=== PATIENT | male | born 1945 | race Caucasian/White ===

== ENCOUNTER 2016-08-03 23:22 | Inpatient (IN) | payer OTHER, MEDICARE ==
[~2016-08-03] VITALS: Ht 172.7 cm; Wt 73.8 kg
[~2016-08-03 23:22] MED LIST: 1-ME1LIQ PO; ADVAI250I PO; ALLO300 PO; CYCL5TAB PO; DILTCD120 PO; DUONI NEB; IPRAAER INH; LORTA5 PO; SPIRCAP INH; TAB-TAB PO; ZYVO600T PO
[2016-08-03 23:23] VITALS: BP 144/74; PULSE 116; RESP 20; TEMP 97.7; O2SAT 90
[2016-08-04] VITALS (7 sets, daily range): BP systolic 119–152; BP diastolic 64–82; PULSE 75–135; RESP 12–25; TEMP 98.5; O2SAT 93–96
[2016-08-04] MEDS ORDERED: SODIUM CHLOR 0.9% 1000 ML INJ 1,000 ML IV SCH (00:35)
[2016-08-04] MEDS ORDERED: SODIUM CHLORIDE 0.9% FLUSH 5 ML FLUSH IVF PRN ×2 (00:45)
[2016-08-04] MEDS ORDERED: MORPHINE SULFATE 4 MG/ML INJ IV PUSH ONE (00:45)
[2016-08-04] MEDS ORDERED: ONDANSETRON HCL 4 MG/2 ML VIAL IVP ONE (00:45)
[2016-08-04] MEDS ORDERED: RESP: ALBUTEROL 2.5 MG/IPRATROPIUM 0.5 MG NEB (SCH) INH ONE (00:45)
--- NOTE | 2016-08-04 00:48 | PD ---
HPI Chief Complaint: Abdominal Pain Time Seen by Provider: 00:33 Travel History International Travel<30 days: No Contact w/Intl Traveler<30days: No Traveled to known affect area: No History of Present Illness HPI The patient is a 71 year old male who presents to the [facility] emergency department with a history of abdominal pain that began 2 days ago although worse and today prior to arrival. He reports that his pain is a 12 out of 10 in severity. He reports that he feels like he tore something in his abdomen when he was coughing. The patient has a history of a large ventral abdominal hernia. He did see Dr. Jon yeboah, his surgeon, last week regarding this. He reports that they plan on doing surgery again to repair the hernia, however his laboratory studies recently had showed that he is developing renal failure, therefore he was referred to a creative arts music therapist to further evaluate and clear him prior to surgery. The patient has a known history of COPD. He reports that he has a cough is been present intermittently for the last year. He reports that recently with weather changes during the wintertime and has become more productive of white sputum. He reports that he last used his nebulizer machine yesterday morning. The patient continues to smoke a half a pack to three quarters of a pack of cigarettes daily. The patient reports that over the last month he has had increasing lower extremity edema. He reports that he also has chronic difficulty starting his stream of urine. He reports that he is also on the process of being referred to a urologist for further evaluation. The patient reports the last time he saw a urologist was approximately 9 years ago when he was treated for prostate cancer with radiation therapy. The patient reports that his abdominal pain is generalized and worse with coughing. He denies any alleviating factors other than taking his usual hydrocodone for hip pain. The patient reports having one episode of nausea and vomiting today. He reports he's had constipation since Wednesday. The patient reports that he tried taking a stool softener without improvement. The patient denies any recent fevers, neck pain, chest pain, or neurologic symptoms. [facility] Past Medical History Narrative Medical The patient's past medical history is significant for COPD, continued tobacco use, ventral abdominal hernia, history of shingles, history of peptic ulcer disease, history of prostate cancer, history of arthritis, history of hypertension, history of renal insufficiency, hyperlipidemia Hx Anticoagulant Therapy: No Arthritis: Yes Asthma: No Heart Rhythm Problems: No Cancer: Yes (PROSTATE) Cardiovascular Problems: No High Cholesterol: Yes Chemotherapy: No Chest Pain: No Congestive Heart Failure: No COPD: Yes Cerebrovascular Accident: No Diabetes: No Diminished Hearing: No Endocrine: Yes Gastrointestinal Disorders: Yes (HX PERFORATED GASTRIC ULCER) Genitourinary: Yes Hepatitis: No Hiatal Hernia: Yes Hypertension: Yes Immune Disorder: No Musculoskeletal: Yes (PAIN NECK AREA) Neurologic: No Psychiatric: No Reproductive: No Respiratory: Yes (COPD) Integumentary: Yes (SHINGLES) Radiation Therapy: Yes Sleep Apnea: No Ulcer: Yes Tetanus Vaccination: > 5 Years Influenza Vaccination: Yes Past Surgical History Narrative Surgical The patient's past surgical history is significant for ventral abdominal hernia repair with wound dehiscence and attempted repair again after infection. The patient reports that he's had an appendectomy. Abdominal Surgery: Yes (2 HERNIA REPAIRS ABDOMEN, REPAIRED PERFORATED STOMACH ULCER, APPY) AICD: No Appendectomy: Yes Cardiac Surgery: No Ear Surgery: No Endocrine Surgery: No Eye Surgery: Yes (LETY CATARACT) Genitourinary Surgery: No Hysterectomy: No Joint Replacement: No Oral Surgery: No Pacemaker: No Thoracic Surgery: No Other Surgery: Yes Social History Alcohol Use: Yes (OCCASIONAL) Tobacco Use: Yes (1 PPD) Substance Use: No Allergies-Medications (Allergen,Severity, Reaction): Coded Allergies: *MDRO Multi-Drug Resistant Organism (Verified Adverse Reaction, Unknown, ) MRSA (abdominal wound) 2015 per 04/10/2015 H&P Reported Meds & Prescriptions Reported Meds & Active Scripts Active Reported Multi Vitamin (Multiple Vitamin) 1 Tab Tab 1 Tab PO DAILY Flomax (Tamsulosin HCl) 0.4 Mg Cap 0.4 Mg PO HS Norvasc (Amlodipine Besylate) 10 Mg Tab 10 Mg PO DAILY Protonix (Pantoprazole Sodium) 40 Mg Tab 40 Mg PO DAILY Flovent Hfa 12 GM Inh (Fluticasone Propionate) 220 Mcg/Act Inh 1 Puff INH BID Use daily at the same time. Advair Diskus Inh (Fluticasone-Salmeterol Inh) 250-50 Mcg/Blist Aer 1 Puff INH BID Rinse mouth after use. Trazodone (Trazodone HCl) 50 Mg Tab 50-100 Mg PO HS [employer] (Hydrocodone-Acetaminophen) 10-325 Mg Tab 1-2 Tab PO Q4H PRN Lasix (Furosemide) 20 Mg Tab 20 Mg PO DAILY Potassium Chloride ER (Potassium Chloride) 20 Meq Tab 20 Meq PO DAILY Duoneb (Ipratropium-Albuterol Neb) 0.5-2.5 Mg/3 Ml Neb 1 Vial NEB QID PRN Combivent Respimat Inh (Ipratropium-Albuterol Inh) 20-100 [place]/Act Aero 1 Puff INH Q4HR PRN Review of Systems Except as stated in HPI: all other systems reviewed are Neg General / Constitutional: No: Fever Eyes: No: Visual changes HENT: No: Headaches Cardiovascular: Positive: Dyspnea on exertion, Edema, No: Chest Pain or Discomfort Respiratory: Positive: Cough, Shortness of Breath, Wheezing Gastrointestinal: Positive: Nausea, Vomiting, Abdominal Pain, Constipation, Changes in Bowel Habits, No: Diarrhea, Indigestion, Loss of Appetite Genitourinary: Positive: Hesitancy, No: Urgency, Frequency, Dysuria, Flank Pain Musculoskeletal: Positive: Arthralgias, No: Pain Skin: No Rash Neurologic: No: Weakness, Focal Abnormalities, Change in Mentation, Slurred Speech, Sensory Disturbance Psychiatric: No: Depression Endocrine: No: Polydipsia Hematologic/Lymphatic: No: Easy Bruising Physical Exam Narrative General: The patient is a well-developed well-nourished male, uncomfortable appearing on arrival he reported abdominal pain, O2 saturations on room air are 90%. Head and Neck exam: Head is normocephalic atraumatic. Eyes: Pupils are equal round and reactive to light. Nose: Midline septum with pink mucous membranes Mouth: Dentition unremarkable. Moist mucus membranes. Posterior oropharynx is not erythematous. No tonsillar hypertrophy. Uvula midline. Airway patent. Neck: No palpable lymphadenopathy. No nuchal rigidity. No thyromegaly. Cardiovascular: Regular rate and rhythm without murmurs, gallops, or rubs. No pulse deficit to the extremities and simultaneous auscultation and palpation of his radial artery. Lungs: Expiratory wheezes are audible throughout bilateral lung garcia, no rhonchi, no crackles. Abdomen: Soft, with distention related to a large ventral abdominal hernia that is palpated and palpates to be reducible on examination, generalized discomfort on palpation. Normal bowel sounds are audible. No guarding, rebound, or rigidity. Extremities: No clubbing or cyanosis. The patient has 1+ pitting edema bilateral lower extremities. 2+ pulses in all 4 extremities. Back: No spinous process tenderness to palpation. No costovertebral angle tenderness to palpation. Neurologic Exam: Grossly nonfocal. Skin Exam: No rash noted. Intact skin that is warm and dry. Data Data Last Documented VS Vital Signs Date Time Temp Pulse Resp B/P Pulse Ox O2 Delivery O2 Flow Rate FiO2 08/04/16 00:26 114 12 133/71 94 Room Air 08/03/16 23:23 97.7 Orders Complete Blood Count With Diff (08/04/16 00:35) Comprehensive Metabolic Panel (08/04/16 00:35) B-Type Natriuretic Peptide (08/04/16 00:35) Act Partial Throm Time (Ptt) (08/04/16 00:35) Prothrombin Time / Inr (Pt) (08/04/16 00:35) Magnesium (Mg) (08/04/16 00:35) Urinalysis - C+S If Indicated (08/04/16 00:35) Iv Access Insert/Monitor (08/04/16 00:35) Electrocardiogram (08/04/16 00:35) Ecg Monitoring (08/04/16 00:35) Oximetry (08/04/16 00:35) Oxygen Administration (08/04/16 00:35) Chest, Single Ap (08/04/16 00:35) Sodium Chloride 0.9% Flush (Ns Flush) (08/04/16 00:45) Albuterol-Ipratropium Neb (Duoneb Neb) (08/04/16 00:45) Lipase (08/04/16 00:35) Lactic Acid (08/04/16 00:35) Ct Abd/Pel W/O Iv Contrast (08/04/16 00:35) Morphine Inj (Morphine Inj) (08/04/16 00:45) Ondansetron Inj (Zofran Inj) (08/04/16 00:45) Sodium Chlor 0.9% 1000 Ml Inj (Ns 1000 M (08/04/16 00:35) Sodium Chloride 0.9% Flush (Ns Flush) (08/04/16 00:45) Urinary Catheter Insert/Apply (08/04/16 01:52) Cefepime Inj (Maxipime Inj) (08/04/16 02:15) Azithromycin Inj (Zithromax Inj) (08/04/16 02:15) Admit Order (Ed Use Only) (08/04/16 02:27) Labs Laboratory Tests Test 08/04/16 00:55 White Blood Count 19.0 TH/MM3 Red Blood Count 3.33 MIL/MM3 Hemoglobin 10.6 GM/DL Hematocrit 30.6 % Mean Corpuscular Volume 92.0 FL Mean Corpuscular Hemoglobin 31.7 PG Mean Corpuscular Hemoglobin 34.5 % Concent Red Cell Distribution Width 14.4 % Platelet Count 457 TH/MM3 Mean Platelet Volume 7.7 FL Neutrophils (%) (Auto) 89.6 % Lymphocytes (%) (Auto) 3.6 % Monocytes (%) (Auto) 6.4 % Eosinophils (%) (Auto) 0.1 % Basophils (%) (Auto) 0.3 % Neutrophils # (Auto) 17.0 TH/MM3 Lymphocytes # (Auto) 0.7 TH/MM3 Monocytes # (Auto) 1.2 TH/MM3 Eosinophils # (Auto) 0.0 TH/MM3 Basophils # (Auto) 0.1 TH/MM3 CBC Comment AUTO DIFF Differential Total Cells 100 Counted Neutrophils % (Manual) 86 % Band Neutrophils % 4 % Lymphocytes % 5 % Monocytes % 5 % Neutrophils # (Manual) 17.1 TH/MM3 Differential Comment FINAL DIFF MANUAL Platelet Estimate HIGH Platelet Morphology Comment NORMAL Helmet Cells OCC Acanthocytes OCC Prothrombin Time 11.4 SEC Prothromb Time International 1.0 RATIO Ratio Activated Partial 38.0 SEC Thromboplast Time Sodium Level 120 MEQ/L Potassium Level 4.5 MEQ/L Chloride Level 82 MEQ/L Carbon Dioxide Level 23.4 MEQ/L Anion Gap 15 MEQ/L Blood Urea Nitrogen 67 MG/DL Creatinine 7.74 MG/DL Estimat Glomerular Filtration 7 ML/MIN Rate Random Glucose 129 MG/DL Lactic Acid Level 0.8 mmol/L Calcium Level 9.9 MG/DL Magnesium Level 1.8 MG/DL Total Bilirubin 0.7 MG/DL Aspartate Amino Transf 37 U/L (AST/SGOT) Alanine Aminotransferase 26 U/L (ALT/SGPT) Alkaline Phosphatase 124 U/L B-Type Natriuretic Peptide 533 PG/ML Total Protein 9.4 GM/DL Albumin 4.1 GM/DL Lipase 49 U/L MDM Medical Decision Making Medical Screen Exam Complete: Yes Emergency Medical Condition: Yes Medical Record Reviewed: Yes Interpretation(s) Laboratory Tests Test 08/04/16 00:55 White Blood Count 19.0 TH/MM3 Red Blood Count 3.33 MIL/MM3 Hemoglobin 10.6 GM/DL Hematocrit 30.6 % Mean Corpuscular Volume 92.0 FL Mean Corpuscular Hemoglobin 31.7 PG Mean Corpuscular Hemoglobin 34.5 % Concent Red Cell Distribution Width 14.4 % Platelet Count 457 TH/MM3 Mean Platelet Volume 7.7 FL Neutrophils (%) (Auto) 89.6 % Lymphocytes (%) (Auto) 3.6 % Monocytes (%) (Auto) 6.4 % Eosinophils (%) (Auto) 0.1 % Basophils (%) (Auto) 0.3 % Neutrophils # (Auto) 17.0 TH/MM3 Lymphocytes # (Auto) 0.7 TH/MM3 Monocytes # (Auto) 1.2 TH/MM3 Eosinophils # (Auto) 0.0 TH/MM3 Basophils # (Auto) 0.1 TH/MM3 CBC Comment AUTO DIFF Differential Total Cells 100 Counted Neutrophils % (Manual) 86 % Band Neutrophils % 4 % Lymphocytes % 5 % Monocytes % 5 % Neutrophils # (Manual) 17.1 TH/MM3 Differential Comment FINAL DIFF MANUAL Platelet Estimate HIGH Platelet Morphology Comment NORMAL Helmet Cells OCC Acanthocytes OCC Prothrombin Time 11.4 SEC Prothromb Time International 1.0 RATIO Ratio Activated Partial 38.0 SEC Thromboplast Time Sodium Level 120 MEQ/L Potassium Level 4.5 MEQ/L Chloride Level 82 MEQ/L Carbon Dioxide Level 23.4 MEQ/L Anion Gap 15 MEQ/L Blood Urea Nitrogen 67 MG/DL Creatinine 7.74 MG/DL Estimat Glomerular Filtration 7 ML/MIN Rate Random Glucose 129 MG/DL Lactic Acid Level 0.8 mmol/L Calcium Level 9.9 MG/DL Magnesium Level 1.8 MG/DL Total Bilirubin 0.7 MG/DL Aspartate Amino Transf 37 U/L (AST/SGOT) Alanine Aminotransferase 26 U/L (ALT/SGPT) Alkaline Phosphatase 124 U/L B-Type Natriuretic Peptide 533 PG/ML Total Protein 9.4 GM/DL Albumin 4.1 GM/DL Lipase 49 U/L Last Impressions Chest X-Ray 2/14/17 0035 Signed Impressions: Service Date/Time: Thursday, August 04, 2016 00:47 - CONCLUSION: 1. Bibasilar edema versus pneumonia Gareth Escalante MD Abdomen/Pelvis CT 08/04/1634 Signed Impressions: Service Date/Time: Thursday, August 04, 2016 01:07 - CONCLUSION: 1. Probable generalized small bowel ileus. 2. Marked bladder distention with bilateral hydronephrosis to mild degree which may be on the basis of bladder outlet traction. 3. Bibasilar edema versus pneumonia with bilateral effusions Gareth Escalante MD Differential Diagnosis Bowel obstruction, versus constipation, versus enlargement of hernia with associated pain related to coughing, versus pneumonia, versus COPD exacerbation Narrative Course During the course of the patients emergency department visit, the patients history, examination, and differential diagnosis were reviewed with the patient. The patient had IV access obtained and blood work sent for analysis. The patient was placed on a operations project manager with oximetry and blood pressure monitoring. A chest x-ray was ordered. CT scan of the abdomen and pelvis was ordered. The patient had an EKG. The patient's EKG shows what appears to be a sinus tachycardia heart rate of 107, right bundle branch block with T-wave inversions in V1, V2, V3, no acute ST segment elevation. The patient was provided morphine for pain, Zofran for nausea, DuoNeb's 1. The patient was started on antibiotic for respiratory coverage to include cefepime and Zithromax. The patients laboratory studies were reviewed and remarkable for a white count of 19, hemoglobin 10.6, platelets 457 with 89.6 neutrophils, lymphocytes 3.6, CMP was remarkable for sodium of 120, chloride 82, BUN 67, creatinine 7.74, glucose 129, alkaline phosphatase 124, BNP is 533, total protein 9.3, lipase 49. PT 11.4, PTT 38, urinalysis shows small occult blood moderate leukocyte esterase 15 RBCs 10 wbc's rare bacteria, culture indicated. Radiology studies were reviewed and remarkable for a chest x-ray that shows right basilar edema. CT scan of the abdomen and pelvis showed probable generalized small bowel ileus, marked bladder distention with bilateral hydronephrosis to mild degree which may be on the basis of the bladder outlet traction. A Hammond catheter was placed to gravity with a coud catheter. The patient immediately had 2 L of urine out. The patients results were discussed with the patient, including the plan of care. I explained that further testing and/ or monitoring is indicated based on the patients history, examination, and/ or laboratory findings. Therefore, I recommended admission for additional evaluation. The patient expressed understanding and was agreeable with this plan. The patient was admitted to the hospital in guarded condition and sent to a bed under the care of the [facility]. Sepsis Criteria SIRS Criteria (2 or more): Heart rate over 90, WBC > 38967, < 4000 or > 10% bands Physician Communication Physician Communication The patient's case is discussed with Dr. Hurtado who did agree to admit the patient for further evaluation and treatment at this time. Diagnosis Primary Impression: Renal failure Additional Impressions: Bladder outflow obstruction COPD (chronic obstructive pulmonary disease) Qualified Code: J41.8 - Mixed simple and mucopurulent chronic bronchitis Admitting Information Admitting Physician Requests: Jessica Sosa MD Aug 04, 2016 00:48
[2016-08-04 01:22] LABS: PROTHROMBIN TIME - PATIENT 11.4 SEC (9.8-11.6)
[2016-08-04 01:28] LABS: BASOPHIL # 0.1 TH/MM3 (0-0.2); BASOPHIL % 0.3 % (0.0-2.0); EOSINOPHIL % 0.1 % (0.0-4.0); HEMATOCRIT 30.6 % (39.0-51.0); LYMPH % 3.6 % (9.0-44.0); LYMPHOCYTE # 0.7 TH/MM3 (1.0-4.8); MEAN CORPUSCULAR HEMOGLOBIN 31.7 PG (27.0-34.0); MEAN CORPUSCULAR HGB CONC 34.5 % (32.0-36.0); MONO % 6.4 % (0.0-8.0); NEUT % 89.6 % (16.0-70.0); PLATELET COUNT 457 TH/MM3 (150-450); RED BLOOD COUNT 3.33 MIL/MM3 (4.50-5.90); RED CELL DISTRIBUTION WIDTH 14.4 % (11.6-17.2)
[2016-08-04 01:30] LABS: HEMO FLAGS AUTO DIFF
--- NOTE | 2016-08-04 01:32 | RADRPT ---
EXAM DATE/TIME: 08/04/2016 00:47 [facility] COMPARISON: CHEST SINGLE AP, November 21, 2014, 12:05. INDICATIONS : Shortness of breath and cough. MEDICAL HISTORY : Chronic obstructive pulmonary disease. Hiatal hernia. Carcinoma, prostatic. Hypertension. SURGICAL HISTORY : Hernia repair. ENCOUNTER: Initial ACUITY: 1 month PAIN SCORE: 0/10 LOCATION: Bilateral chest FINDINGS: The cardiac silhouette is enlarged in transverse diameter. There is patchy alveolar disease bilateral ly compatible with edema or pneumonia. No pleural effusions are identified. There is prominence of th e aortic knob is with calcification characteristic of atherosclerotic vascular disease. CONCLUSION: 1. Bibasilar edema versus pneumonia Gareth Escalante MD on August 04, 2016 at 1:29 Board Certified Radiologist. This report was verified electronically.
[2016-08-04 01:37] LABS: ALT (GPT) 26 U/L (12-78); ANION GAP 15 MEQ/L (5-15); AST (GOT) 37 U/L (15-37); BICARBONATE 23.4 MEQ/L (21.0-32.0); BLOOD UREA NITROGEN 67 MG/DL (7-18); CHLORIDE 82 MEQ/L (98-107); GLOMERULAR FILTRATION RATE 7 ML/MIN (>89); MAGNESIUM 1.8 MG/DL (1.5-2.5); POTASSIUM 4.5 MEQ/L (3.5-5.1)
[2016-08-04 01:39] LABS: ALKALINE PHOSPHATASE 124 U/L (45-117); TOTAL BILIRUBIN ADULT 0.7 MG/DL (0.2-1.0)
[2016-08-04 01:41] LABS: SODIUM (NA) 120 MEQ/L (136-145)
--- NOTE | 2016-08-04 01:43 | RADRPT ---
EXAM DATE/TIME: 08/04/2016 01:07 [facility] COMPARISON: No previous studies available for comparison. INDICATIONS : Abdomen pain with distention past 3days. ORAL CONTRAST: No oral contrast ingested. RADIATION DOSE: 11.85 CTDIvol (mGy) MEDICAL HISTORY : Hypertension. Hernia, hiatal. Carcinoma, prostate.COPD SURGICAL HISTORY : Appendectomy. Umbilical hernia repair.Perforated gastric ulcer ENCOUNTER: Initial ACUITY: 3 days PAIN SCALE: 10/10 LOCATION: abdomen TECHNIQUE: Volumetric scanning of the abdomen and pelvis was performed. Using automated exposure control and ad justment of the mA and/or kV according to patient size, radiation dose was kept as low as reasonably achievable to obtain optimal diagnostic quality images. FINDINGS: There is bibasilar edema versus pneumonia with small bilateral effusions. Coronary artery calcificati ons are present. The liver and spleen are normal in size and no focal defects are identified. A small hiatal hernia is present. The gallbladder and pancreas are unremarkable. No intrahepatic or extrahepatic ductal dilat ation is seen. The adrenal glands are unremarkable. There is mild bilateral hydronephrosis though the re is prominent bladder distention and this may be related on the basis of bladder outlet obstruction . There is marked diastases of the rectus muscles with small bowel dilatation which are fluid and air -filled characteristic of ileus. There is a large amount of fecal material throughout the colon consistent with constipation. CONCLUSION: 1. Probable generalized small bowel ileus. 2. Marked bladder distention with bilateral hydronephrosis to mild degree which may be on the basis o f bladder outlet traction. 3. Bibasilar edema versus pneumonia with bilateral effusions Gareth Escalante MD on August 04, 2016 at 1:38 Board Certified Radiologist. This report was verified electronically.
[2016-08-04 01:49] LABS: BANDS 4 % (0-6); NEUTROPHIL # MANUAL DIFF 17.1 TH/MM3 (1.8-7.7); POLYS (SEG NEUTROPHILS) 86 % (16-70); WBC DIFF SAMPLE 100
[2016-08-04 01:50] LABS: PLATELET ESTIMATE SMEAR HIGH (NORMAL); PLATELET MORPHOLOGY NORMAL (NORMAL); SCAN/DIFF FINAL DIFF MANUAL
[2016-08-04 01:51] LABS: HELMET CELLS OCC (NORMAL)
[2016-08-04 01:52] LABS: ACANTHOCYTES OCC (NORMAL)
[2016-08-04] MEDS ORDERED: CEFEPIME INJ 2,000 MG in SODIUM CHLORIDE 0.9% INJ 100 ML IV ONE (02:15)
[2016-08-04] MEDS ORDERED: AZITHROMYCIN INJ 500 MG in SODIUM CHLOR 0.9% 250 ML INJ 250 ML IV ONE (02:15)
[2016-08-04 02:43] LABS: BACTERIA, URINE RARE /hpf; BLOOD, URINE SMALL (NEG); COMMENT (UR) CULTURE INDICATED; CULTURE IF INDICATED CULTURE INDICATED; GLUCOSE,URINE NEG (NEG); KETONE, URINE NEG (NEG); MUCUS URINE FEW /lpf (OCC); NITRITE,URINE NEG (NEG); URINE COLOR YELLOW (YELLW/STRAW)
[2016-08-04] MEDS ORDERED: SODIUM CHLORIDE 0.9% FLUSH 5 ML FLUSH FLUSH PRN (02:45)
[2016-08-04] MEDS ORDERED: NALOXONE HCL 0.4 MG/ML AMP IV PRN (02:45)
--- NOTE | 2016-08-04 04:36 | HHI.HP ---
[facility] Nic Brandt MD Admission Diagnosis Acute Renal Failure, Bladder outlet obstruction, hyponatremia, copd Diagnoses: Chief Complaint: Swelling, abdominal pain Travel History International Travel<30 Days: No Contact w/Intl Traveler <30 Da: No Traveled to Known Affected Are: No History of Present Illness History from patient, ER physician communication, and review of medical records. Patient reported that he came to the hospital because he has been having pain in his abdomen. He also reports of pain in his flank bilaterally. Reports of ventral hernia for which she was seen general surgeon for repair. Reports that the surgeon was not able to go ahead with the surgery because he was noted to have renal failure on his outpatient lab tests. He reports he has had some workup done for this renal failure for past 2 weeks as an outpatient. But he is not sure exactly what kind of workup. He denies any burning or pain on urination. However reports of difficulty urinating for the past few days. He stated that he is going to the bathroom every hour and was urinating a little bit each time. Denies blood in his urine at home. Denies any nausea or vomiting. Stated it only started in the hospital today. Denies diarrhea. Reports of constipation for the past 2 or 3 days. Denies fever. The emergency room, and patient's workup revealed acute on chronic renal failure. Imaging studies further revealed distended bladder with bilateral hydronephrosis suggestive of bladder outlet obstruction. Hammond catheter was placed in ER. There was some trouble dizziness and coud catheter was required. Patient has subsequent hematuria in the Hammond bag. Patient also reports of history of prostate cancer for which he had radiation therapy about 9 years ago. Post Hammond catheter placement, patient diuresed about 2 L. Review of Systems 12 point review of system was obtained and negative apart from what is mentioned in HPI Past Family Social History Past Medical History Hypertension Hyperlipidemia COPD Prostate CAstatus post radiation treatment 9 years ago Past Surgical History Reports surgeries for ventral hernia Appendectomy Surgery for perforated gastric ulcer Cataract surgery Reported Medications Patient's medications listed in EMRreviewed. Patient told me to check the medical records instead because he is tired and tired and wanted to sleep Allergies: Coded Allergies: *MDRO Multi-Drug Resistant Organism (Verified Adverse Reaction, Unknown, ) MRSA (abdominal wound) 2015 per 04/10/2015 H&P Family History Denies family history of any medical issues Social History Still smokes a pack a day. Denies any alcohol abuse or drug abuse. Social drinker. Physical Exam Vital Signs Vital Signs Date Time Temp Pulse Resp B/P Pulse Ox O2 Delivery O2 Flow Rate FiO2 08/04/16 00:26 114 12 133/71 94 Room Air 08/03/16 23:47 20 08/03/16 23:23 97.7 116 20 144/74 90 Room Air Physical Exam GENERAL: This is a well-nourished, well-developed patient, in no apparent distress. SKIN: No rashes, ecchymoses or lesions. Cool and dry. HEAD: Atraumatic. Normocephalic. No temporal or scalp tenderness. EYES: No scleral icterus. No injection or drainage. ENT: Nose without bleeding, purulent drainage or septal hematomaAirway patent. NECK: Trachea midline. No JVD. Supple, nontender, no meningeal signs. CARDIOVASCULAR: Regular rate and rhythm without murmurs, gallops, or rubs. RESPIRATORY: Clear to auscultation. Breath sounds equal bilaterally. No wheezes , rales, or rhonchi. GASTROINTESTINAL: Abdomen distended, ventral hernia present. Pain on palpation diffusely. No guarding. MUSCULOSKELETAL: Extremities without clubbing, cyanosis. No calf tenderness. Bilateral lower extremity pitting edema up to mid calf NEUROLOGICAL: Awake and alert. Motor and sensory grossly within normal limits Normal speech. Laboratory Laboratory Tests Test 08/04/16 08/04/16 00:55 02:30 White Blood Count 19.0 Red Blood Count 3.33 Hemoglobin 10.6 Hematocrit 30.6 Mean Corpuscular Volume 92.0 Mean Corpuscular Hemoglobin 31.7 Mean Corpuscular Hemoglobin 34.5 Concent Red Cell Distribution Width 14.4 Platelet Count 457 Mean Platelet Volume 7.7 Neutrophils (%) (Auto) 89.6 Lymphocytes (%) (Auto) 3.6 Monocytes (%) (Auto) 6.4 Eosinophils (%) (Auto) 0.1 Basophils (%) (Auto) 0.3 Neutrophils # (Auto) 17.0 Lymphocytes # (Auto) 0.7 Monocytes # (Auto) 1.2 Eosinophils # (Auto) 0.0 Basophils # (Auto) 0.1 CBC Comment AUTO DIFF Differential Total Cells 100 Counted Neutrophils % (Manual) 86 Band Neutrophils % 4 Lymphocytes % 5 Monocytes % 5 Neutrophils # (Manual) 17.1 Differential Comment FINAL DIFF MANUAL Platelet Estimate HIGH Platelet Morphology Comment NORMAL Helmet Cells OCC Acanthocytes OCC Prothrombin Time 11.4 Prothromb Time International 1.0 Ratio Activated Partial 38.0 Thromboplast Time Sodium Level 120 Potassium Level 4.5 Chloride Level 82 Carbon Dioxide Level 23.4 Anion Gap 15 Blood Urea Nitrogen 67 Creatinine 7.74 Estimat Glomerular Filtration 7 Rate Random Glucose 129 Lactic Acid Level 0.8 Calcium Level 9.9 Magnesium Level 1.8 Total Bilirubin 0.7 Aspartate Amino Transf 37 (AST/SGOT) Alanine Aminotransferase 26 (ALT/SGPT) Alkaline Phosphatase 124 B-Type Natriuretic Peptide 533 Total Protein 9.4 Albumin 4.1 Lipase 49 Urine Color YELLOW Urine Turbidity CLEAR Urine pH 5.0 Urine Specific [place] 1.010 Urine Protein NEG Urine Glucose (UA) NEG Urine Ketones NEG Urine Occult Blood SMALL Urine Nitrite NEG Urine Bilirubin NEG Urine Urobilinogen LESS THAN 2.0 Urine Leukocyte Esterase MOD Urine RBC 15 Urine WBC 10 Urine Bacteria RARE Urine Mucus FEW Microscopic Urinalysis Comment CULTURE INDICATED Date/Time Procedure Status Source Growth 08/04/16 02:30 Urine Culture Received Urine Clean Catch Pending Result Diagram: 08/04/165408/04/1654 Imaging Last 48 hours Impressions Chest X-Ray 08/04/1634 Signed Impressions: Service Date/Time: Thursday, August 04, 2016 00:47 - CONCLUSION: 1. Bibasilar edema versus pneumonia Gareth Escalante MD Abdomen/Pelvis CT 08/04/1634 Signed Impressions: Service Date/Time: Thursday, August 04, 2016 01:07 - CONCLUSION: 1. Probable generalized small bowel ileus. 2. Marked bladder distention with bilateral hydronephrosis to mild degree which may be on the basis of bladder outlet traction. 3. Bibasilar edema versus pneumonia with bilateral effusions Gareth Escalante MD Assessment and Plan Problem List: (1) Bladder outflow obstruction ICD Code: N32.0 Status: Acute (2) Renal failure ICD Code: N19 Status: Acute (3) Incisional hernia ICD Code: K43.2 Status: Acute Assessment and Plan Impression: Bilateral hydronephrosis Obstructive uropathywith bladder of the obstruction Pulmonary edemasecondary to renal dysfunction/fluid overload Bilateral pitting edemasecondary to renal dysfunction/fluid overload Acute renal failure Hematurialikely due to traumatic Hammond, compounded by bladder mucosa irritation from distention Leukocytosis with left shiftlikely due to infection UTI Hyponatremia History of hypertension History of prostate cancerstatus post radiation therapy History of COPD Chronic active tobacco abuse Plan: Patient had Hammond catheter placed in ER. Drained 2 L urine. Hematuria is clearing up by the time I see patient. We'll follow renal function. Suspects that renal function should improve by a.m. If not, we'll consider consulting nephrology. Urology consult. Check echocardiogram in a.m. Patient's peripheral edema and pulmonary edema likely due to renal failure resulting in fluid retention. IV fluids were DC'd. At present, we will not diurese him yet since he is not short of breath and he has significant hyponatremia of 120. We'll repeat BMP in a.m. Patient is asymptomatic in terms of hyponatremia/ neurologic symptoms. Watch for fluid overload. Patient may need diuresis once sodium improves. Patient received cefepime and azithromycin in ER for possible pneumonia/UTI. At present, would continue levofloxacin by mouth. We'll follow urine culture results. Nebulizers scheduled and when necessary. DVT prophylaxiswith heparin once no invasive procedures are planned. Would also obtain ultrasound of bilateral lower extremity to rule out DVT since patient has bilateral pitting edema with some calf asymmetry. GI prophylaxison pantoprazole. Discussed Condition With Patient, ER physician, ER nurse Physician Certification 2 Midnight Certification Type: Admission for Inpatient Services Order for Inpatient Services The services are ordered in accordance with Medicare regulations or non- Medicare payer requirements, as applicable. In the case of services not specified as inpatient-only, they are appropriately provided as inpatient services in accordance with the 2-midnight benchmark. Estimated LOS (days): 3 days is the estimated time the patient will need to remain in the hospital, assuming treatment plan goals are met and no additional complications. Post-Hospital Plan: Not yet determined Freddie Hurtado MD Aug 04, 2016 04:36
[2016-08-04] MEDS ORDERED: LEVOFLOXACIN 750 MG TAB PO ONE (05:45)
[2016-08-04] MEDS ORDERED: HEPARIN SODIUM - SQ 10,000 UNITS/ML VIAL SQ SCH (06:00)
[2016-08-04] MEDS ORDERED: RESP: ALBUTEROL 2.5 MG/IPRATROPIUM 0.5 MG NEB (PRN) NEB (06:00)
--- NOTE | 2016-08-04 08:42 | HHI.PR ---
Subjective Remarks in no acute distress. afebrile. complaining of some pain to the hips. Objective Vitals Vital Signs Date Time Temp Pulse Resp B/P Pulse Ox O2 Delivery O2 Flow Rate FiO2 08/04/16 08:31 96 Nasal Cannula 2 08/04/16 06:24 110 12 119/64 93 Room Air 08/04/16 00:26 114 12 133/71 94 Room Air 08/03/16 23:47 20 08/03/16 23:23 97.7 116 20 144/74 90 Room Air I/O 08/03/16 08/03/16 08/03/16 08/04/16 08/04/16 08/04/16 07:00 15:00 23:00 07:00 15:00 23:00 Output Total 3250 ml 1000 ml Balance -3250 ml -1000 ml Output Urine Total 3250 ml 1000 ml # Voids 2 0 # Bowel Movements 1 Result Diagram: 08/04/16 0055 08/04/16 0055 Imaging Last Impressions Chest X-Ray 08/04/1634 Signed Impressions: Service Date/Time: Thursday, August 04, 2016 00:47 - CONCLUSION: 1. Bibasilar edema versus pneumonia Gareth Escalante MD Abdomen/Pelvis CT 08/04/1634 Signed Impressions: Service Date/Time: Thursday, August 04, 2016 01:07 - CONCLUSION: 1. Probable generalized small bowel ileus. 2. Marked bladder distention with bilateral hydronephrosis to mild degree which may be on the basis of bladder outlet traction. 3. Bibasilar edema versus pneumonia with bilateral effusions Gareth Escalante MD Objective Remarks GENERAL: This is a well-nourished, well-developed patient, in no apparent distress. CARDIOVASCULAR: Regular rate and regular rhythm without murmurs, gallops, or rubs. RESPIRATORY: Clear to auscultation. Breath sounds equal bilaterally. No wheezes , rales, or rhonchi. GASTROINTESTINAL: Abdomen soft, non-tender, nondistended. Normal, active bowel sounds MUSCULOSKELETAL: Extremities without clubbing, cyanosis, or edema. NEURO: Alert & Oriented x4 to person, place, time, situation. Moves all ext x4 Procedures none Medications and IVs Current Medications IV Flush (NS Flush) 2 ml UNSCH PRN IVF FLUSH AFTER USING IV ACCESS; Start 08/04 at 00:45; Stop 08/04/16 at 02:40; Status DC Albuterol/ Ipratropium (Duoneb Neb) 1 ampule ONCE ONCE INH Last administered on 08/04/16 00:49; Start 08/04/16 at 00:45; Stop 08/04/16 at 00:46; Status DC Morphine Sulfate (Morphine Inj) 4 mg ONCE ONCE IV PUSH Last administered on 01:00; Start 08/04/16 at 00:45; Stop 08/04/16 at 00:46; Status DC Ondansetron HCl 4 mg 4 mg ONCE ONCE IVP Last administered on 08/04/16 00:59; Start 08/04/16 at 00:45; Stop 08/04/16 at 00:46; Status DC Sodium Chloride (NS 1000 ml Inj) 1,000 ml @ 125 mls/hr Q8H IV Last administered on 08/04/16 00:59; Start 08/04/16 at 00:35; Stop 08/04/16 at 02:33 ; Status DC IV Flush 2 ml 2 ml UNSCH PRN IVF FLUSH AFTER USING IV ACCESS; Start 08/04/16 at 00:45; Stop 08/04/16 at 02:40; Status DC Cefepime HCl 2000 mg/Sodium Chloride 100 ml @ 200 mls/hr ONCE ONCE IV Last administered on 08/04/16 03:21; Start 08/04/16 at 02:15; Stop 08/04/16 at 02:44 ; Status DC Azithromycin/ Sodium Chloride (Zithromax Inj/ NS 250 ml Inj) 250 ml @ 250 mls/ hr ONCE ONCE IV Last administered on 08/04/16 04:18; Start 08/04/16 at 02:15 ; Stop 08/04/16 at 03:14; Status DC IV Flush (NS Flush) 2 ml UNSCH PRN FLUSH FLUSH AFTER USING IV ACCESS; Start at 02:45 IV Flush (NS Flush) 2 ml BID FLUSH ; Start 08/04/16 at 09:00 Heparin Sodium (Porcine) (Heparin Inj) 5,000 units Q8H SQ ; Start 08/04/16 at 06 :00; Stop 08/04/16 at 06:00; Status DC Naloxone HCl (Narcan Inj) 0.4 mg UNSCH PRN IV SEE LABEL COMMENTS; Start at 02:45 Levofloxacin (Levaquin) 750 mg ONCE ONCE PO Last administered on 08/04/16t 05: 56; Start 08/04/16 at 05:45; Stop 08/04/16 at 05:46; Status DC Albuterol/ Ipratropium (Duoneb Neb) 1 ampule Q2HR NEB PRN NEB wheezing; Start 08/04/16 at 06:00 Albuterol/ Ipratropium (Duoneb Neb) 1 ampule Q6HR NEB NEB ; Start 08/04/16 at 10:00 A/P Assessment and Plan A/P Bilateral hydronephrosis with Obstructive uropathywith bladder of the obstruction with History of prostate cancerstatus post radiation therapy s/p menendez cath insertion- consulted urology Acute renal failure- s/p menendez cath placement- will monitor renal function closely Pulmonary edemasecondary to renal dysfunction/fluid overload- neb treatment - will monitor Bilateral pitting edemasecondary to renal dysfunction/fluid overload- check venous doppler- will monitor Hematurialikely due to traumatic Menendez, compounded by bladder mucosa irritation from distention urology consulted. Leukocytosis with left shiftlikely due to UTI- continue IV Rocephin- repeat CBC - monitor temps Hyponatremia; due to renal failure- will monitor History of hypertension; resume home meds History of COPD; resume home meds John Arana MD Aug 04, 2016 08:42
[2016-08-04] MEDS: SODIUM CHLORIDE 0.9% FLUSH 5 ML FLUSH FLUSH SCH ×2 (09:00→21:00)
[2016-08-04] MEDS ORDERED: TIOTROPIUM BROMIDE 18 MCG INH INH SCH (09:00)
[2016-08-04] MEDS ORDERED: ACETAMINOPHEN 325 MG TAB PO PRN (09:00)
--- NOTE | 2016-08-04 09:26 | RADRPT ---
EXAM DATE/TIME: 08/04/2016 08:31 [place] COMPARISON: No previous studies available for comparison. INDICATIONS : Bilateral leg swelling. MEDICAL HISTORY : Hypercholesterolemia. Hypertension. Chronic obstructive pulmonary disease. Renal insufficiency. Pros dave cancer. Radiation. SURGICAL HISTORY : Appendectomy. Hernia repair. ENCOUNTER: Initial ACUITY: 3 days PAIN SCORE: 3/10 LOCATION: Bilateral leg. TECHNIQUE: Venous ultrasound of the left and right leg was performed from the inguinal ligament to the proximal calf. Real-time, color Doppler and spectral tracing, compression and augmentation techniques were us ed. FINDINGS: RIGHT LEG: There is normal compressibility of the deep venous system from the inguinal region to the proximal ca lf. No echogenic clot is seen in the lumen of the common femoral, femoral, popliteal, and posterior tibial veins. There is a normal response of the venous system to proximal and distal augmentation an d respiration. There is a moderate-sized Phillips's cyst measuring 2.6 x 1.6 x 3.2 cm. LEFT LEG: There is normal compressibility of the deep venous system from the inguinal region to the proximal ca lf. No echogenic clot is seen in the lumen of the common femoral, femoral, popliteal, and posterior tibial veins. There is a normal response of the venous system to proximal and distal augmentation an d respiration. There is a large-sized Phillips's cyst measuring 7.3 x 4.4 x 2.8 cm. CONCLUSION: 1. No evidence of deep venous thrombosis. 2. Bilateral Phillips's cysts left greater than right. Ian Horton MD on August 04, 2016 at 9:23 Board Certified Radiologist. This report was verified electronically.
[2016-08-04] MEDS ORDERED: BUDESONIDE-FORMOTEROL 160/4.5 MCG INHALER INH SCH (09:30)
[2016-08-04] MEDS ORDERED: DILTIAZEM-CD 120 MG CAP ER PO SCH (09:30)
[2016-08-04] MEDS ORDERED: PILL SPLITTER OTHER PRN (09:30)
[2016-08-04] MEDS ORDERED: IPRASOL NEB (09:58)
[2016-08-04] MEDS ORDERED: TRAZ50TA12 PO (09:58)
[2016-08-04] MEDS ORDERED: IPRAAER INH (09:58)
[2016-08-04] MEDS ORDERED: POTA-163 PO (09:58)
[2016-08-04] MEDS ORDERED: FLUTI220I INH (09:58)
[2016-08-04] MEDS ORDERED: MULT-135 PO (09:58)
[2016-08-04] MEDS ORDERED: TAMS5CAP PO (09:58)
[2016-08-04] MEDS ORDERED: PROT40TA PO (09:58)
[2016-08-04] MEDS ORDERED: ADVA250A INH (09:58)
[2016-08-04] MEDS ORDERED: HYDR-3366 PO (09:58)
[2016-08-04] MEDS ORDERED: AMLO10 PO ×2 (09:58)
[2016-08-04] MEDS ORDERED: FURO1TAB62 PO (09:58)
[2016-08-04] MEDS: RESP: ALBUTEROL 2.5 MG/IPRATROPIUM 0.5 MG NEB (SCH) NEB ×2 (10:00→15:29)
--- NOTE | 2016-08-04 10:36 | EKG ---
Date Performed: 08/04/2016 Time Performed: 01:24:18 PTAGE: 71 years EKG: Sinus tachycardia Right bundle branch block ABNORMAL ECG Compared to prior tracing no signi ficant change PREVIOUS TRACING : 11/20/2014 20.33 DOCTOR: Jose Muhammad Interpretating Date/Time 08/04/2016 10:35:46
[2016-08-04 10:58] LABS: AUTOMATED NEUTROPHIL # 13.1 TH/MM3 (1.8-7.7); BASOPHIL % 0.2 % (0.0-2.0); EOSINOPHIL % 0.1 % (0.0-4.0); HEMATOCRIT 25.6 % (39.0-51.0); LYMPH % 3.9 % (9.0-44.0); LYMPHOCYTE # 0.6 TH/MM3 (1.0-4.8); MEAN CORPUSCULAR HEMOGLOBIN 32.3 PG (27.0-34.0); MEAN CORPUSCULAR HGB CONC 35.1 % (32.0-36.0); MONO % 7.7 % (0.0-8.0); NEUT % 88.1 % (16.0-70.0); PLATELET COUNT 382 TH/MM3 (150-450); RED BLOOD COUNT 2.78 MIL/MM3 (4.50-5.90); RED CELL DISTRIBUTION WIDTH 14.4 % (11.6-17.2); WHITE BLOOD COUNT 14.8 TH/MM3 (4.0-11.0)
[2016-08-04 10:59] LABS: HEMO FLAGS AUTO DIFF
[2016-08-04 11:23] LABS: POTASSIUM 3.8 MEQ/L (3.5-5.1)
[2016-08-04 11:48] LABS: SCAN/DIFF AUTO DIFF CONFIRMED
[2016-08-04] MEDS: ACETAMINOPHEN/HYDROcodone 325 MG/5 MG TAB PO PRN ×2 (16:10→23:10)
--- NOTE | 2016-08-04 16:24 | EC ---
Study Study Date:08/04/2016 STUDY CONCLUSIONS SUMMARY - Procedure narrative: Image quality was fair. The study was technically limited due to poor acoustic window availability. - Left ventricle: The cavity size was normal. Wall thickness was increased in a pattern of moderate LVH. There was concentric hypertrophy. Systolic function was probably normal. The estimated ejection fraction was in the range of 50% to 55%. The study is not technically sufficient to allow evaluation of LV diastolic function. - Mitral valve: Moderately calcified annulus. - Tricuspid valve: Mild regurgitation. If LV function is below 40, please consider prescribing an ACEI or ARB or document rationale for non-use. PROCEDURE DATA STUDY STATUS: Elective. Procedure: Transthoracic echocardiography. Image quality was fair. The study was technically limited due to poor acoustic window availability. Scanning was performed from the parasternal, apical, and subcostal acoustic windows. Study completion: The patient tolerated the procedure well. Transthoracic echocardiography. M-mode, complete 2D, complete spectral Doppler, and color Doppler. Patient status: Inpatient. CARDIAC ANATOMY LEFT VENTRICLE: The cavity size was normal. Wall thickness was increased in a pattern of moderate LVH. There was concentric hypertrophy. Systolic function was probably normal. The estimated ejection fraction was in the range of 50% to 55%. Images were inadequate for LV wall motion assessment. The study is not technically sufficient to allow evaluation of LV diastolic function. AORTIC VALVE: Mildly calcified leaflets. Doppler: There was no stenosis. No significant regurgitation. MITRAL VALVE: Moderately calcified annulus. Doppler: There was no evidence for stenosis. Trace to mild regurgitation. LEFT ATRIUM: The atrium was normal in size. PULMONIC VALVE: Not well visualized. Doppler: There was no evidence for stenosis. No significant regurgitation. TRICUSPID VALVE: The valve appears to be grossly normal. Doppler: There was no evidence for stenosis. Mild regurgitation. BASIC MEASUREMENTS ADULT NORMAL Left ventricle LV internal dimension, ED, chordal level, 48.2 mm 43-52 PLAX LV internal dimension, ES, chordal level, 38 mm 23-38 PLAX Fractional shortening, chordal level, PLAX *21 % >29 LV posterior wall thickness, ED 13.4 mm IVS/LVPW ratio, ED 0.91 <1.3 Ventricular septum Septal thickness, ED 12.2 mm Aortic valve Leaflet separation 15 mm 15-26 Right ventricle RV internal dimension, ED, PLAX 26 mm 19-38 BASIC MEASUREMENTS ADULT NORMAL Aortic valve Leaflet separation 15 mm 15-26 Aorta Root diameter, ED *39 mm 20-37 Left atrium Anterior-posterior dimension, ES 28 mm 19-40 LA/aortic root ratio 0.72 LEGEND: Mean values are shown as u=mean value. Asterisk (*) dolan values outside specified normal range. Prepared and signed by Grady Romero [id number]
--- NOTE | 2016-08-04 17:55 | PD.CONS ---
HPI Service Urology Consult Requested By Reason for Consult Urinary retention, hydro Primary Care Physician Nic Brandt MD Diagnosis: (1) Bladder outflow obstruction ICD Code: N32.0 (2) Renal failure ICD Code: N19 (3) Incisional hernia ICD Code: K43.2 History of Present Illness 71yo male with history of prostate cancer and EBRT now with bladder outlet obstruction secondary resulting in bilateral hydronephrosis and renal insufficiency. Patient reported to the ED due ot abdominal pain and was found to have a distended bladder and bilateral hydronephrosis. A menendez catheter was placed removing 2L of urine. Patient reports difficulty in voiding for some time now. He also has a large abdominal hernia. Denies hematuria, fevers. Review of Systems ROS Limitations: Clinical Condition Constitutional: DENIES: Fever Endocrine: DENIES: Polyuria Eyes: DENIES: Blurred vision Ears, nose, mouth, throat: DENIES: Hearing loss Respiratory: DENIES: Cough Cardiovascular: DENIES: Chest pain Gastrointestinal: COMPLAINS OF: Abdominal pain Genitourinary: COMPLAINS OF: Urinary incontinence, DENIES: Urgency, Hematuria Musculoskeletal: COMPLAINS OF: Back pain Integumentary: DENIES: Abnormal pigmentation Hematologic/lymphatic: DENIES: Bruising Immunologic/allergic: DENIES: Eczema Neurologic: DENIES: Headache Psychiatric: DENIES: Anxiety Except as stated in HPI: all other systems reviewed are Neg Past Family Social History Past Medical History Hypertension Hyperlipidemia COPD Prostate CAstatus post radiation treatment 9 years ago Past Surgical History Reports surgeries for ventral hernia Appendectomy Surgery for perforated gastric ulcer Cataract surgery Reported Medications Reported Meds & Active Scripts Active Reported Multi Vitamin (Multiple Vitamin) 1 Tab Tab 1 Tab PO DAILY Flomax (Tamsulosin HCl) 0.4 Mg Cap 0.4 Mg PO HS Norvasc (Amlodipine Besylate) 10 Mg Tab 10 Mg PO DAILY Protonix (Pantoprazole Sodium) 40 Mg Tab 40 Mg PO DAILY Flovent Hfa 12 GM Inh (Fluticasone Propionate) 220 Mcg/Act Inh 1 Puff INH BID Use daily at the same time. Advair Diskus Inh (Fluticasone-Salmeterol Inh) 250-50 Mcg/Blist Aer 1 Puff INH BID Rinse mouth after use. Trazodone (Trazodone HCl) 50 Mg Tab 50-100 Mg PO HS Mcgraws (Hydrocodone-Acetaminophen) 10-325 Mg Tab 1-2 Tab PO Q4H PRN Lasix (Furosemide) 20 Mg Tab 20 Mg PO DAILY Potassium Chloride ER (Potassium Chloride) 20 Meq Tab 20 Meq PO DAILY Duoneb (Ipratropium-Albuterol Neb) 0.5-2.5 Mg/3 Ml Neb 1 Vial NEB QID PRN Combivent Respimat Inh (Ipratropium-Albuterol Inh) 20-[address] Half-[address]/Act Aero 1 Puff INH Q4HR PRN Allergies: Coded Allergies: *MDRO Multi-Drug Resistant Organism (Verified Adverse Reaction, Unknown, ) MRSA (abdominal wound) 2015 per 04/10/2015 H&P Active Ordered Medications Current Medications Medications (Trade) Dose Ordered Sig/Tee Route Start Time Stop Time Status Last Admin (NS Flush) 2 ml UNSCH PRN FLUSH 08/04/16 02:45 (NS Flush) 2 ml BID FLUSH 08/04/16 09:00 Naloxone HCl 0.4 mg 0.4 mg UNSCH PRN IV 08/04/16 02:45 (Rocephin Inj/NS Inj) 100 ml @ 200 mls/hr Q24H IV 08/05/16 10:00 (Tylenol) 650 mg Q4H PRN PO 08/04/16 09:00 (Mcgraws 5-325 Mg) 1 tab Q6H PRN PO 08/04/16 09:00 08/04/16 16:10 (Pill Splitter) 1 ea UNSCH PRN OTHER 08/04/16 09:30 (Norvasc) 10 mg DAILY PO 08/05/16 09:00 (Protonix) 40 mg DAILY PO 08/05/16 09:00 (Flomax) 0.4 mg HS PO 08/04/16 21:00 (Symbicort 160-4.5 Inh) 2 puff BID INH 08/04/16 21:00 (Mag-Al Plus Susp Liq) 30 ml Q6H PRN PO 08/04/16 17:45 UNV (Dilaudid Pf Inj) 0.5 mg Q4H PRN IV PUSH 08/04/16 17:45 UNV Family History Denies family history of any medical issues Social History Still smokes a pack a day. Denies any alcohol abuse or drug abuse. Social drinker. Physical Exam Vital Signs Vital Signs Date Time Temp Pulse Resp B/P Pulse Ox O2 Delivery O2 Flow Rate FiO2 08/04/16 17:23 20 08/04/16 16:00 122 16 133/73 96 Nasal Cannula 2 08/04/16 12:40 112 18 130/74 95 Nasal Cannula 2 08/04/16 08:31 96 Nasal Cannula 2 08/04/16 06:24 110 12 119/64 93 Room Air 08/04/16 00:26 114 12 133/71 94 Room Air 08/03/16 23:47 20 08/03/16 23:23 97.7 116 20 144/74 90 Room Air Physical Exam GENERAL: This is a well-nourished, well-developed patient, in no apparent distress. SKIN: No rashes, ecchymoses or lesions. Cool and dry. HEAD: Atraumatic. Normocephalic. EYES: Extraocular motions intact. No scleral icterus. No injection or drainage. ENT: Nose without bleeding, purulent drainage. Airway patent. NECK: Trachea midline. No JVD or lymphadenopathy. CARDIOVASCULAR: Extremities well perfused, normal pulses RESPIRATORY: nonlabored, equal chest rise GASTROINTESTINAL: Abdomen soft, non-tender, nondistended. Large midline abdominal hernia with prior surgical scar noted GENITOURINARY: Menendez cathter in place, dark yellow urine noted, uncircumcised phallus MUSCULOSKELETAL: Extremities without clubbing, cyanosis, or edema. NEUROLOGICAL: Awake and alert. Motor and sensory grossly within normal limits. Normal speech. Laboratory Laboratory Tests Test 08/04/16 08/04/16 08/04/16 00:55 02:30 10:40 White Blood Count 19.0 14.8 Red Blood Count 3.33 2.78 Hemoglobin 10.6 9.0 Hematocrit 30.6 25.6 Mean Corpuscular Volume 92.0 92.0 Mean Corpuscular Hemoglobin 31.7 32.3 Mean Corpuscular Hemoglobin 34.5 35.1 Concent Red Cell Distribution Width 14.4 14.4 Platelet Count 457 382 Mean Platelet Volume 7.7 7.4 Neutrophils (%) (Auto) 89.6 88.1 Lymphocytes (%) (Auto) 3.6 3.9 Monocytes (%) (Auto) 6.4 7.7 Eosinophils (%) (Auto) 0.1 0.1 Basophils (%) (Auto) 0.3 0.2 Neutrophils # (Auto) 17.0 13.1 Lymphocytes # (Auto) 0.7 0.6 Monocytes # (Auto) 1.2 1.1 Eosinophils # (Auto) 0.0 0.0 Basophils # (Auto) 0.1 0.0 CBC Comment AUTO DIFF AUTO DIFF Differential Total Cells 100 Counted Neutrophils % (Manual) 86 Band Neutrophils % 4 Lymphocytes % 5 Monocytes % 5 Neutrophils # (Manual) 17.1 Differential Comment FINAL DIFF AUTO DIFF MANUAL CONFIRMED Platelet Estimate HIGH Platelet Morphology Comment NORMAL Helmet Cells OCC Acanthocytes OCC Prothrombin Time 11.4 Prothromb Time International 1.0 Ratio Activated Partial 38.0 Thromboplast Time Sodium Level 120 130 Potassium Level 4.5 3.8 Chloride Level 82 94 Carbon Dioxide Level 23.4 25.0 Anion Gap 15 11 Blood Urea Nitrogen 67 57 Creatinine 7.74 5.64 Estimat Glomerular Filtration 7 10 Rate Random Glucose 129 101 Lactic Acid Level 0.8 Calcium Level 9.9 9.0 Magnesium Level 1.8 Total Bilirubin 0.7 Aspartate Amino Transf 37 (AST/SGOT) Alanine Aminotransferase 26 (ALT/SGPT) Alkaline Phosphatase 124 B-Type Natriuretic Peptide 533 Total Protein 9.4 Albumin 4.1 Lipase 49 Urine Color YELLOW Urine Turbidity CLEAR Urine pH 5.0 Urine Specific Walker 1.010 Urine Protein NEG Urine Glucose (UA) NEG Urine Ketones NEG Urine Occult Blood SMALL Urine Nitrite NEG Urine Bilirubin NEG Urine Urobilinogen LESS THAN 2.0 Urine Leukocyte Esterase MOD Urine RBC 15 Urine WBC 10 Urine Bacteria RARE Urine Mucus FEW Microscopic Urinalysis Comment CULTURE INDICATED Date/Time Procedure Status Source Growth 08/04/16 02:30 Urine Culture Received Urine Clean Catch Pending Result Diagram: 08/04/16 1040 08/04/16 1040 Imaging Last 72 hours Impressions Chest X-Ray 08/04/1634 Signed Impressions: Service Date/Time: Thursday, August 04, 2016 00:47 - CONCLUSION: 1. Bibasilar edema versus pneumonia Gareth Escalante MD Abdomen/Pelvis CT 08/04/1634 Signed Impressions: Service Date/Time: Thursday, August 04, 2016 01:07 - CONCLUSION: 1. Probable generalized small bowel ileus. 2. Marked bladder distention with bilateral hydronephrosis to mild degree which may be on the basis of bladder outlet traction. 3. Bibasilar edema versus pneumonia with bilateral effusions Gareth Escalante MD Lower Extremity Ultrasound 08/04/16 0000 Signed Impressions: Service Date/Time: Thursday, August 04, 2016 08:31 - CONCLUSION: 1. No evidence of deep venous thrombosis. 2. Bilateral Phillips's cysts left greater than right. Ian Horton MD Assessment and Plan Problem List: (1) Abdominal wall abscess ICD Code: L02.211 Status: Acute (2) Bladder outflow obstruction ICD Code: N32.0 Status: Acute Assessment and Plan Maintain menendez catheter in place for at least two weeks to allow bladder decompression. Continue flomax therapy Patient to be discharged with menendez in place Patient may follow-up with Urology in clinic for voiding trial and further management of his urinary retention as well as follow-up for his history of Prostate Cancer Please call with questions King Edouard MD Aug 04, 2016 17:55
[2016-08-04] MEDS: ALUMINUM/MAGNESIUM/SIMETH 30 ML CUP PO PRN ×2 (18:06→23:10)
[2016-08-04] MEDS: HYDROmorphone HCL PF 1 MG/ML VIAL IV PUSH PRN (18:07)
[2016-08-04] MEDS: RESP: ALBUTEROL 2.5 MG/IPRATROPIUM 0.5 MG NEB (PRN) NEB (19:27)
[2016-08-04] MEDS ORDERED: CYCLOBENZAPRINE HCL 10 MG TAB PO SCH (21:00)
[2016-08-04] MEDS: BUDESONIDE-FORMOTEROL 160/4.5 MCG INHALER INH SCH (21:19)
[2016-08-04] MEDS: TAMSULOSIN HCL 0.4 MG CAP PO SCH (21:19)
[2016-08-04] MEDS: ONDANSETRON HCL 4 MG/2 ML VIAL IV PUSH PRN (23:10)
[2016-08-05] VITALS (11 sets, daily range): BP systolic 128–156; BP diastolic 73–89; PULSE 117–128; RESP 16–23; TEMP 98.1–98.2; O2SAT 91–96
[2016-08-05 04:19] LABS: AUTOMATED NEUTROPHIL # 13.6 TH/MM3 (1.8-7.7); BASOPHIL % 0.1 % (0.0-2.0); HEMATOCRIT 27.7 % (39.0-51.0); LYMPHOCYTE # 0.6 TH/MM3 (1.0-4.8); MEAN CELL VOLUME 92.4 FL (80.0-100.0); MEAN CORPUSCULAR HEMOGLOBIN 31.9 PG (27.0-34.0); MEAN CORPUSCULAR HGB CONC 34.6 % (32.0-36.0); MONO % 7.8 % (0.0-8.0); NEUT % 88.1 % (16.0-70.0); PLATELET COUNT 440 TH/MM3 (150-450); RED BLOOD COUNT 2.99 MIL/MM3 (4.50-5.90); RED CELL DISTRIBUTION WIDTH 14.8 % (11.6-17.2); WHITE BLOOD COUNT 15.5 TH/MM3 (4.0-11.0)
[2016-08-05 04:21] LABS: HEMO FLAGS AUTO DIFF
[2016-08-05 04:44] LABS: BICARBONATE 32.6 MEQ/L (21.0-32.0)
[2016-08-05 05:53] LABS: SCAN/DIFF AUTO DIFF CONFIRMED
[2016-08-05] MEDS: ONDANSETRON HCL 4 MG/2 ML VIAL IV PUSH PRN ×2 (06:07→12:53)
--- NOTE | 2016-08-05 07:43 | HHI.PR ---
Subjective Remarks f/u; acute kidney injury in no acute distress although noted that was tachycardic last night. complaining of nausea . good urine output. afebrile. menendez in place. d/w the RN. Objective Vitals Vital Signs Date Time Temp Pulse Resp B/P Pulse Ox O2 Delivery O2 Flow Rate FiO2 08/05/16 06:08 127 21 156/83 94 Nasal Cannula 2 08/05/16 04:54 117 22 128/80 95 Nasal Cannula 2 08/05/16 02:44 128 22 149/73 93 Nasal Cannula 2 08/05/16 00:00 128 22 133/80 94 Nasal Cannula 2 08/04/16 22:16 75 25 143/75 94 Nasal Cannula 2 08/04/16 19:12 22 08/04/16 19:10 135 23 152/82 94 Nasal Cannula 2 08/04/16 18:42 20 08/04/16 18:07 98.5 126 22 145/78 96 Nasal Cannula 2 08/04/16 17:23 20 08/04/16 16:00 122 16 133/73 96 Nasal Cannula 2 08/04/16 12:40 112 18 130/74 95 Nasal Cannula 2 08/04/16 08:31 96 Nasal Cannula 2 I/O 08/04/16 08/04/16 08/04/16 08/05/16 08/05/16 08/05/16 07:00 15:00 23:00 07:00 15:00 23:00 Intake Total 100 ml 300 ml Output Total 3250 ml 2200 ml 2600 ml 1200 ml Balance -3250 ml -2100 ml -2300 ml -1200 ml Intake Oral 100 ml 300 ml Output Urine Total 3250 ml 2200 ml 2600 ml 1200 ml # Voids 2 0 0 # Bowel Movements 1 Result Diagram: 08/05/16 0350 08/05/16 0350 Imaging Last Impressions Chest X-Ray 08/04/1634 Signed Impressions: Service Date/Time: Thursday, August 04, 2016 00:47 - CONCLUSION: 1. Bibasilar edema versus pneumonia Gareth Escalante MD Abdomen/Pelvis CT 08/04/1634 Signed Impressions: Service Date/Time: Thursday, August 04, 2016 01:07 - CONCLUSION: 1. Probable generalized small bowel ileus. 2. Marked bladder distention with bilateral hydronephrosis to mild degree which may be on the basis of bladder outlet traction. 3. Bibasilar edema versus pneumonia with bilateral effusions Gareth Escalante MD Lower Extremity Ultrasound 08/04/16 0000 Signed Impressions: Service Date/Time: Thursday, August 04, 2016 08:31 - CONCLUSION: 1. No evidence of deep venous thrombosis. 2. Bilateral Phillips's cysts left greater than right. Ian Horton MD Objective Remarks GENERAL: This is a well-nourished, well-developed patient, in no apparent distress. CARDIOVASCULAR: Regular rate and regular rhythm without murmurs, gallops, or rubs. RESPIRATORY: Clear to auscultation. Breath sounds equal bilaterally. No wheezes , rales, or rhonchi. GASTROINTESTINAL: Abdomen soft, non-tender, nondistended. Normal, active bowel sounds MUSCULOSKELETAL: Extremities without clubbing, cyanosis, or edema. NEURO: Alert & Oriented x4 to person, place, time, situation. Moves all ext x4 Procedures none Medications and IVs Current Medications IV Flush (NS Flush) 2 ml UNSCH PRN IVF FLUSH AFTER USING IV ACCESS; Start 08/04 at 00:45; Stop 08/04/16 at 02:40; Status DC Albuterol/ Ipratropium (Duoneb Neb) 1 ampule ONCE ONCE INH Last administered on 08/04/16 00:49; Start 08/04/16 at 00:45; Stop 08/04/16 at 00:46; Status DC Morphine Sulfate (Morphine Inj) 4 mg ONCE ONCE IV PUSH Last administered on 01:00; Start 08/04/16 at 00:45; Stop 08/04/16 at 00:46; Status DC Ondansetron HCl 4 mg 4 mg ONCE ONCE IVP Last administered on 08/04/16 00:59; Start 08/04/16 at 00:45; Stop 08/04/16 at 00:46; Status DC Sodium Chloride (NS 1000 ml Inj) 1,000 ml @ 125 mls/hr Q8H IV Last administered on 08/04/16 00:59; Start 08/04/16 at 00:35; Stop 08/04/16 at 02:33 ; Status DC IV Flush 2 ml 2 ml UNSCH PRN IVF FLUSH AFTER USING IV ACCESS; Start 08/04/16 at 00:45; Stop 08/04/16 at 02:40; Status DC Cefepime HCl 2000 mg/Sodium Chloride 100 ml @ 200 mls/hr ONCE ONCE IV Last administered on 08/04/16 03:21; Start 08/04/16 at 02:15; Stop 08/04/16 at 02:44 ; Status DC Azithromycin/ Sodium Chloride (Zithromax Inj/ NS 250 ml Inj) 250 ml @ 250 mls/ hr ONCE ONCE IV Last administered on 08/04/16 04:18; Start 08/04/16 at 02:15 ; Stop 08/04/16 at 03:14; Status DC IV Flush (NS Flush) 2 ml UNSCH PRN FLUSH FLUSH AFTER USING IV ACCESS; Start at 02:45 IV Flush (NS Flush) 2 ml BID FLUSH ; Start 08/04/16 at 09:00 Heparin Sodium (Porcine) (Heparin Inj) 5,000 units Q8H SQ ; Start 08/04/16 at 06 :00; Stop 08/04/16 at 06:00; Status DC Naloxone HCl (Narcan Inj) 0.4 mg UNSCH PRN IV SEE LABEL COMMENTS; Start at 02:45 Levofloxacin (Levaquin) 750 mg ONCE ONCE PO Last administered on 08/04/16 05: 56; Start 08/04/16 at 05:45; Stop 08/04/16 at 05:46; Status DC Albuterol/ Ipratropium (Duoneb Neb) 1 ampule Q2HR NEB PRN NEB wheezing; Start 08/04/16 at 06:00; Stop 08/04/16 at 17:00; Status DC Albuterol/ Ipratropium (Duoneb Neb) 1 ampule Q6HR NEB NEB ; Start 08/04/16 at 10:00; Stop 08/04/16 at 17:00; Status DC Tiotropium Filley (Spiriva Inh) 18 mcg DAILY INH ; Start 08/04/16 at 09:00; Stop 08/04/16 at 10:20; Status DC Budesonide/ Formoterol Fumarate (Symbicort 160-4.5 Inh) 2 puff BID INH ; Start 08/04/16 at 09:30; Stop 08/04/16 at 10:20; Status DC Cyclobenzaprine HCl (Flexeril) 5 mg HS PO ; Start 08/04/16 at 21:00; Stop at 21:00; Status DC Diltiazem HCl 120 mg 120 mg DAILY PO ; Start 08/04/16 at 09:30; Stop 08/04/16 at 10:20; Status DC Ceftriaxone Sodium/Sodium Chloride (Rocephin Inj/NS Inj) 100 ml @ 200 mls/hr Q24H IV ; Start 08/05/16 at 10:00 Acetaminophen (Tylenol) 650 mg Q4H PRN PO FEVER/ PAIN < 5; Start 08/04/16 at 09 :00 Acetaminophen/ Hydrocodone Bitart (Moxee 5-325 Mg) 1 tab Q6H PRN PO PAIN > 5 Last administered on 08/04/16 23:10; Start 08/04/16 at 09:00 Miscellaneous (Pill Splitter) 1 ea UNSCH PRN OTHER SEE LABEL COMMENTS; Start at 09:30 Amlodipine Besylate (Norvasc) 10 mg DAILY PO ; Start 08/05/16 at 09:00 Pantoprazole Sodium (Protonix) 40 mg DAILY PO ; Start 08/05/16 at 09:00 Tamsulosin HCl (Flomax) 0.4 mg HS PO Last administered on 08/04/16 21:19; Start 08/04/16 at 21:00 Budesonide/ Formoterol Fumarate (Symbicort 160-4.5 Inh) 2 puff BID INH Last administered on 08/04/16 21:19; Start 08/04/16 at 21:00 Albuterol/ Ipratropium (Duoneb Neb) 1 ampule Q6HR NEB PRN NEB SHORTNESS OF BREATH Last administered on 08/04/16 19:27; Start 08/04/16 at 17:15 Al Hydrox/Mg Hydrox/Simethicone (Mag-Al Plus Susp Liq) 30 ml Q6H PRN PO INDIGESTION Last administered on 08/04/16 23:10; Start 08/04/16 at 17:45 Hydromorphone HCl (Dilaudid Pf Inj) 0.5 mg Q4H PRN IV PUSH BREAKTHROUGH PAIN Last administered on 08/04/16 18:07; Start 08/04/16 at 17:45 Ondansetron HCl (Zofran Inj) 4 mg Q8HR PRN IV PUSH NAUSEA Last administered on 08/05/16 06:07; Start 08/04/16 at 18:15 A/P Assessment and Plan A/P Bilateral hydronephrosis with Obstructive uropathywith bladder of the obstruction with History of prostate cancerstatus post radiation therapy s/p menendez cath insertion- urology consult appreciated; will discharge with menendez cath in place- f/u as outpatient. Acute renal failure- s/p menendez cath placement- improving- will monitor renal function closely Pulmonary edemasecondary to renal dysfunction/fluid overload- neb treatment - will monitor repeat CXR today. tachycardia; repeat EKG today- echo with EF 55%- Bilateral pitting edemasecondary to renal dysfunction/fluid overload- venous doppler negative for DVT- will monitor Hematurialikely due to traumatic Menendez, compounded by bladder mucosa irritation from distention urology consulted as noted above. Leukocytosis with left shiftlikely due to UTI- continue IV Rocephin- repeat CBC - monitor temps Hyponatremia; due to renal failure-improved- will monitor hypokalemia; will replace History of hypertension; resumed home meds History of COPD; resumed home meds John Arana MD Aug 05, 2016 07:43
[2016-08-05] MEDS ORDERED: PROMETHAZINE INJ 25 MG/ML VIAL IM PRN (07:45)
[2016-08-05] MEDS ORDERED: POTASSIUM CHLORIDE 10 MEQ CONTROLLED RELEASE TAB PO ONE (07:45)
[2016-08-05] MEDS: HYDROmorphone HCL PF 1 MG/ML VIAL IV PUSH PRN ×2 (08:11→20:49)
--- NOTE | 2016-08-05 08:17 | RADRPT ---
EXAM DATE/TIME: 08/05/2016 07:49 [facility] COMPARISON: CHEST SINGLE AP, November 21, 2014, 12:05. CHEST SINGLE AP, November 20, 2014, 12:22. CHEST SINGLE AP, 2016, 0:47. INDICATIONS : Shortness of breath. MEDICAL HISTORY : Chronic obstructive pulmonary disease. Carcinoma, prostatic. SURGICAL HISTORY : None. ENCOUNTER: Initial ACUITY: 3 days PAIN SCORE: 0/10 LOCATION: Bilateral chest FINDINGS: The heart is normal in size. There are interstitial fibrotic changes throughout the lung bases more s ignificant on the left than the right. These areas are new compared to remote exams of 2014. This wou ld raise concern for an underlying pneumonia. The changes are stable compared to previous dated . The visualized bony structures demonstrate degenerative changes in the left shoulder but are othe rwise intact. CONCLUSION: 1. Interstitial fibrotic changes with bibasilar infiltrate concerning for pneumonia unchanged from pr evious dated 08/04/16. Reynold Olson MD on August 05, 2016 at 8:13 Board Certified Radiologist. This report was verified electronically.
[2016-08-05] MEDS: PANTOPRAZOLE SOD 40 MG DELAYED RELEASE TAB PO SCH ×2 (09:00→10:32)
[2016-08-05] MEDS: SODIUM CHLORIDE 0.9% FLUSH 5 ML FLUSH FLUSH SCH ×2 (09:00→20:50)
[2016-08-05] MEDS: BUDESONIDE-FORMOTEROL 160/4.5 MCG INHALER INH SCH ×2 (10:31→20:48)
[2016-08-05] MEDS: cefTRIAXone INJ 1,000 MG in SODIUM CHLORIDE 0.9% INJ 100 ML IV SCH (10:33)
[2016-08-05] MEDS: ACETAMINOPHEN/HYDROcodone 325 MG/5 MG TAB PO PRN (12:37)
[2016-08-05] MEDS: ALUMINUM/MAGNESIUM/SIMETH 30 ML CUP PO PRN (12:55)
--- NOTE | 2016-08-05 14:16 | HHI.PR ---
Addendum To [facility] Progress Not Reason for addendum: Additonal documentation (came back to see the patient- noted that still tachycardic and his pulse-ox dropped to 80's while he was talking. CXR reviewed- will check ABG and consult pulmonary- changed amlodipine to cardizem.will continue to monitor closely.) John Arana MD Aug 05, 2016 14:16
[2016-08-05 14:33] LABS: BLOOD GAS BASE EXCESS 10.6 mmol/L (-2-2); BLOOD GAS CARBOXYHEMOGLOBIN 2.5 % (0-4); BLOOD GAS HCO3 35 mmol/L (22-26); BLOOD GAS METHEMOGLOBIN 1.8 % (0-2); BLOOD GAS O2 HGB SATURATION 88 % (90-100); BLOOD GAS OXYGEN CONTENT 12.2 Vol % (12.0-20.0); BLOOD GAS PCO2 44 mmHg (38-42); BLOOD GAS PO2 57 mmHG (61-120); BLOOD GAS TOTAL HGB 9.8 G/DL (12.0-16.0); TEMP CORR TO 98.6
[2016-08-05 14:34] LABS: CRITICAL VALUE YES; DRAW SITE LT RADIAL; LITER FLOW 3 L/M; NUMBER OF ARTERIAL PUNCTURES 2; OXYGEN DEVICE NASAL CANNULA; STAT NO
[2016-08-05] MEDS: DILTIAZEM HCL 30 MG TAB PO SCH ×3 (14:49→20:48)
[2016-08-05] MEDS: AZITHROMYCIN INJ 500 MG in SODIUM CHLOR 0.9% 250 ML INJ 250 ML IV SCH (14:49)
[2016-08-05] MEDS: RESP: ALBUTEROL 2.5 MG/IPRATROPIUM 0.5 MG NEB (PRN) NEB (17:05)
[2016-08-05] MEDS: CALCIUM CARBONATE 500 MG CHEWABLE TAB CHEW PRN (18:06)
[2016-08-05] MEDS: RESP: ALBUTEROL 2.5 MG/IPRATROPIUM 0.5 MG NEB (SCH) NEB (20:03)
[2016-08-05] MEDS: TAMSULOSIN HCL 0.4 MG CAP PO SCH (20:49)
--- NOTE | 2016-08-05 22:44 | EKG ---
Date Performed: 08/05/2016 Time Performed: 07:53:27 PTAGE: 71 years EKG: SINUS TACHYCARDIA WITH FREQUENT SUPRAVENTRICULAR PREMATURE COMPLEXES RIGHT BUNDLE BRANCH BL OCK ST DEPRESSION, CONSIDER SUBENDOCARDIAL INJURY ABNORMAL ECG PREVIOUS TRACING : 08/04/2016 01.24 DOCTOR: Frank Aguayo Interpretating Date/Time 08/05/2016 22:43:33
[2016-08-05] MEDS ORDERED: METOPROLOL TARTRATE 5 MG/5 ML VIAL IV PUSH ONE (23:45)
--- NOTE | 2016-08-05 23:48 | MB ---
cc: SLAVA ARANA MD, JOHN DATE OF CONSULTATION: 08/05/2016 REASON FOR CONSULTATION: COPD and dyspnea. HISTORY OF PRESENT ILLNESS: This is a 71-year-old white male with a known prior history of COPD. He was brought to the emergency room with complaints of abdominal pain and flank pain. The patient has had a huge ventral hernia and this apparently has been a recurrent ventral hernia and he has been seen by a surgeon and has been advised to have a repair scheduled but over the past 2-3 weeks he has had some workup done but over the past 2-3 days he has noticed some increased chest congestion and shortness of breath, and apparently has been found to have renal insufficiency. The patient has had cough with expectoration, but denies any hemoptysis, fevers or chills. He has some reflux symptoms and nausea. His recent lab work demonstrated evidence of chronic kidney disease and he also had a CT of the abdomen which showed hydronephrosis and bladder outlet obstruction. PAST MEDICAL HISTORY: 1. Hypertension. 2. Hyperlipidemia. 3. History of emphysema. 4. History of prostate cancer, status post radiation therapy nine years ago. 5. Ventral hernia with mesh placement but this has recurred. 6. History of perforated gastric ulcer with exploration. 7. Appendectomy 8. Cataract implants. HABITS The patient smoked a pack per day and has done so for over 40 years. He continues to smoke. No significant alcohol use. FAMILY HISTORY Noncontributory ALLERGIES: No drug allergies. REVIEW OF SYSTEMS The patient has lost weight. He has abdominal and epigastric discomfort and a large ventral hernia with no evidence of strangulation. He has dizziness. Denies leg swelling, urinary frequency and also hematuria. No depression or anxiety, has joint pains, muscle aches. No seizures or headache. PHYSICAL EXAMINATION This is elderly man, averagely built, in no acute distress. Blood pressure 136/70, pulse is 112, respirations 20, temperature 97.5. HEENT: Head normocephalic. Pupils reactive and equal. Tongue is moist. Throat is injected. Nasal mucosae erythematous. Neck: Supple. No bruits, no thyroid enlargement, no lymphadenopathy. Chest: Equal movements with increased AP diameter with diffuse wheezes throughout both lung garcia. Prolonged expirations. There are few crackles at the right base. Heart: The heart sounds are regular S1-S2. No murmur. Abdomen is soft, and there is a large ventral hernia with multiple scars on it. The hernia is reducible. There is no organomegaly or tenderness. Bowel sounds are faint. Extremities: Reveal no definite lesions. IMPRESSION 1. COPD with acute exacerbation 2. Severe emphysema with chronic bronchitis 3. Large ventral hernia. 4. History of hypertension and hyperlipidemia. PLAN The patient will be maintained on O2 at 2 liters, nebulized albuterol and Atrovent solution nebulizer q.i.d. and continue with antibiotic coverage including Rocephin 1 gram IV daily and Zithromax 500 mg IV daily. Also placed on Symbicort 160 x 4.5, two puffs twice a day. The patient will have a pulmonary function study in the a.m. and I will follow the patient and discuss the case with you Dr. Arana. The patient will be placed on Solu-Medrol 40 milligrams IV every 8 hours. Thank you for the consultation. MD LISA Alvarado/[email or web address] /10:48 PM /11:29 PM
[2016-08-06] VITALS (12 sets, daily range): BP systolic 137–162; BP diastolic 84–102; PULSE 82–125; RESP 16–18; TEMP 97.6–98.6; O2SAT 90–95
[2016-08-06] MEDS: ACETAMINOPHEN/HYDROcodone 325 MG/5 MG TAB PO PRN ×2 (00:16→22:40)
[2016-08-06 06:17] LABS: AUTOMATED NEUTROPHIL # 16.9 TH/MM3 (1.8-7.7); BASOPHIL % 0.1 % (0.0-2.0); EOSINOPHIL % 0.1 % (0.0-4.0); HEMATOCRIT 26.7 % (39.0-51.0); LYMPH % 5.6 % (9.0-44.0); LYMPHOCYTE # 1.1 TH/MM3 (1.0-4.8); MEAN CELL VOLUME 92.9 FL (80.0-100.0); MEAN CORPUSCULAR HEMOGLOBIN 31.8 PG (27.0-34.0); MEAN CORPUSCULAR HGB CONC 34.2 % (32.0-36.0); MONO % 9.7 % (0.0-8.0); NEUT % 84.5 % (16.0-70.0); PLATELET COUNT 386 TH/MM3 (150-450); RED BLOOD COUNT 2.88 MIL/MM3 (4.50-5.90)
[2016-08-06 06:23] LABS: HEMO FLAGS AUTO DIFF
[2016-08-06 06:43] LABS: BICARBONATE 36.9 MEQ/L (21.0-32.0); POTASSIUM 3.3 MEQ/L (3.5-5.1)
[2016-08-06] MEDS: RESP: ALBUTEROL 2.5 MG/IPRATROPIUM 0.5 MG NEB (SCH) NEB ×4 (08:00→21:45)
[2016-08-06 08:10] LABS: BANDS 8 % (0-6); METAMYELOCYTES 1 % (0-1); MYELOCYTES 1 % (0-0); NEUTROPHIL # MANUAL DIFF 18.4 TH/MM3 (1.8-7.7); PLASMA CELLS 1 % (0-0); PLATELET ESTIMATE SMEAR NORMAL (NORMAL); PLATELET MORPHOLOGY NORMAL (NORMAL); POLYS (SEG NEUTROPHILS) 82 % (16-70); SCAN/DIFF FINAL DIFF MANUAL; WBC DIFF SAMPLE 100
[2016-08-06] MEDS: BUDESONIDE-FORMOTEROL 160/4.5 MCG INHALER INH SCH ×2 (09:00→22:41)
[2016-08-06] MEDS: SODIUM CHLORIDE 0.9% FLUSH 5 ML FLUSH FLUSH SCH ×2 (09:00→22:41)
[2016-08-06] MEDS: cefTRIAXone INJ 1,000 MG in SODIUM CHLORIDE 0.9% INJ 100 ML IV SCH (09:03)
[2016-08-06] MEDS: PANTOPRAZOLE SOD 40 MG DELAYED RELEASE TAB PO SCH (09:03)
[2016-08-06] MEDS: DILTIAZEM HCL 30 MG TAB PO SCH ×4 (09:03→22:40)
--- NOTE | 2016-08-06 09:58 | HHI.PR ---
Subjective Remarks slightly more comfortable today. remains afebrile. denies pain. menendez cath in place. Objective Vitals Vital Signs Date Time Temp Pulse Resp B/P Pulse Ox O2 Delivery O2 Flow Rate FiO2 08/06/16 08:15 Nasal Cannula 3.00 08/06/16 03:25 98.6 112 16 146/93 93 08/06/16 00:15 154/90 08/06/16 00:14 98.2 125 16 162/102 90 08/05/16 20:04 94 Nasal Cannula 3.00 08/05/16 20:00 98.1 120 16 135/89 91 08/05/16 17:05 94 Nasal Cannula 4.00 08/05/16 16:00 98.2 120 20 143/85 96 08/05/16 14:00 120 20 143/84 95 Nasal Cannula 2 08/05/16 10:00 128 23 141/77 94 Nasal Cannula 2 I/O 08/05/16 08/05/16 08/05/16 08/06/16 08/06/16 08/06/16 07:00 15:00 23:00 07:00 15:00 23:00 Intake Total 970 ml 480 ml Output Total 1200 ml 1000 ml 450 ml 1100 ml Balance -1200 ml -1000 ml 520 ml -620 ml Intake Oral 720 ml 480 ml IV Total 250 ml 0 ml Output Urine Total 1200 ml 1000 ml 450 ml 1100 ml # Bowel Movements 0 Result Diagram: 08/06/16 0440 08/06/16 0440 Imaging Last Impressions Chest X-Ray 08/05/16 0000 Signed Impressions: Service Date/Time: Friday, August 05, 2016 07:49 - CONCLUSION: 1. Interstitial fibrotic changes with bibasilar infiltrate concerning for pneumonia unchanged from previous dated 08/04/16. Reynold Olson MD Abdomen/Pelvis CT 08/04/16 0035 Signed Impressions: Service Date/Time: Thursday, August 04, 2016 01:07 - CONCLUSION: 1. Probable generalized small bowel ileus. 2. Marked bladder distention with bilateral hydronephrosis to mild degree which may be on the basis of bladder outlet traction. 3. Bibasilar edema versus pneumonia with bilateral effusions Gareth Escalante MD Lower Extremity Ultrasound 08/04/16 0000 Signed Impressions: Service Date/Time: Thursday, August 04, 2016 08:31 - CONCLUSION: 1. No evidence of deep venous thrombosis. 2. Bilateral Phillips's cysts left greater than right. Ian Horton MD Objective Remarks GENERAL: This is a well-nourished, well-developed patient, in no apparent distress. CARDIOVASCULAR: Regular rate and regular rhythm without murmurs, gallops, or rubs. RESPIRATORY: Clear to auscultation. Breath sounds equal bilaterally. No wheezes , rales, or rhonchi. GASTROINTESTINAL: Abdomen soft, non-tender, nondistended. Normal, active bowel sounds MUSCULOSKELETAL: Extremities without clubbing, cyanosis, or edema. NEURO: Alert & Oriented x4 to person, place, time, situation. Moves all ext x4 Procedures none Medications and IVs Current Medications IV Flush (NS Flush) 2 ml UNSCH PRN IVF FLUSH AFTER USING IV ACCESS; Start 08/04 at 00:45; Stop 08/04/16 at 02:40; Status DC Albuterol/ Ipratropium (Duoneb Neb) 1 ampule ONCE ONCE INH Last administered on 08/04/16 00:49; Start 08/04/16 at 00:45; Stop 08/04/16 at 00:46; Status DC Morphine Sulfate (Morphine Inj) 4 mg ONCE ONCE IV PUSH Last administered on 01:00; Start 08/04/16 at 00:45; Stop 08/04/16 at 00:46; Status DC Ondansetron HCl 4 mg 4 mg ONCE ONCE IVP Last administered on 08/04/16 00:59; Start 08/04/16 at 00:45; Stop 08/04/16 at 00:46; Status DC Sodium Chloride (NS 1000 ml Inj) 1,000 ml @ 125 mls/hr Q8H IV Last administered on 08/04/16 00:59; Start 08/04/16 at 00:35; Stop 08/04/16 at 02:33 ; Status DC IV Flush 2 ml 2 ml UNSCH PRN IVF FLUSH AFTER USING IV ACCESS; Start 08/04/16 at 00:45; Stop 08/04/16 at 02:40; Status DC Cefepime HCl 2000 mg/Sodium Chloride 100 ml @ 200 mls/hr ONCE ONCE IV Last administered on 08/04/16 03:21; Start 08/04/16 at 02:15; Stop 08/04/16 at 02:44 ; Status DC Azithromycin/ Sodium Chloride (Zithromax Inj/ NS 250 ml Inj) 250 ml @ 250 mls/ hr ONCE ONCE IV Last administered on 08/04/16 04:18; Start 08/04/16 at 02:15 ; Stop 08/04/16 at 03:14; Status DC IV Flush (NS Flush) 2 ml UNSCH PRN FLUSH FLUSH AFTER USING IV ACCESS; Start at 02:45 IV Flush (NS Flush) 2 ml BID FLUSH Last administered on 08/06/16 09:00; Start 08/04/16 at 09:00 Heparin Sodium (Porcine) (Heparin Inj) 5,000 units Q8H SQ ; Start 08/04/16 at 06 :00; Stop 08/04/16 at 06:00; Status DC Naloxone HCl (Narcan Inj) 0.4 mg UNSCH PRN IV SEE LABEL COMMENTS; Start at 02:45 Levofloxacin (Levaquin) 750 mg ONCE ONCE PO Last administered on 08/04/16 05: 56; Start 08/04/16 at 05:45; Stop 08/04/16 at 05:46; Status DC Albuterol/ Ipratropium (Duoneb Neb) 1 ampule Q2HR NEB PRN NEB wheezing; Start 08/04/16 at 06:00; Stop 08/04/16 at 17:00; Status DC Albuterol/ Ipratropium (Duoneb Neb) 1 ampule Q6HR NEB NEB ; Start 08/04/16 at 10:00; Stop 08/04/16 at 17:00; Status DC Tiotropium [place] (Spiriva Inh) 18 mcg DAILY INH ; Start 08/04/16 at 09:00; Stop 08/04/16 at 10:20; Status DC Budesonide/ Formoterol Fumarate (Symbicort 160-4.5 Inh) 2 puff BID INH ; Start 08/04/16 at 09:30; Stop 08/04/16 at 10:20; Status DC Cyclobenzaprine HCl (Flexeril) 5 mg HS PO ; Start 08/04/16 at 21:00; Stop at 21:00; Status DC Diltiazem HCl 120 mg 120 mg DAILY PO ; Start 08/04/16 at 09:30; Stop 08/04/16 at 10:20; Status DC Ceftriaxone Sodium/Sodium Chloride (Rocephin Inj/NS Inj) 100 ml @ 200 mls/hr Q24H IV Last administered on 08/06/16 09:03; Start 08/05/16 at 10:00 Acetaminophen (Tylenol) 650 mg Q4H PRN PO FEVER/ PAIN < 5; Start 08/04/16 at 09 :00 Acetaminophen/ Hydrocodone Bitart ([place] 5-325 Mg) 1 tab Q6H PRN PO PAIN > 5 Last administered on 08/06/16 00:16; Start 08/04/16 at 09:00 Miscellaneous (Pill Splitter) 1 ea UNSCH PRN OTHER SEE LABEL COMMENTS; Start at 09:30 Amlodipine Besylate (Norvasc) 10 mg DAILY PO Last administered on 08/05/16 10: 32; Start 08/05/16 at 09:00; Status Hold Pantoprazole Sodium (Protonix) 40 mg DAILY PO Last administered on 08/06/16 09 :03; Start 08/05/16 at 09:00 Tamsulosin HCl (Flomax) 0.4 mg HS PO Last administered on 08/05/16 20:49; Start 08/04/16 at 21:00 Budesonide/ Formoterol Fumarate (Symbicort 160-4.5 Inh) 2 puff BID INH Last administered on 08/06/16 09:00; Start 08/04/16 at 21:00 Albuterol/ Ipratropium (Duoneb Neb) 1 ampule Q6HR NEB PRN NEB SHORTNESS OF BREATH Last administered on 08/05/16 17:05; Start 08/04/16 at 17:15 Al Hydrox/Mg Hydrox/Simethicone (Mag-Al Plus Susp Liq) 30 ml Q6H PRN PO INDIGESTION Last administered on 08/05/16 12:55; Start 08/04/16 at 17:45 Hydromorphone HCl (Dilaudid Pf Inj) 0.5 mg Q4H PRN IV PUSH BREAKTHROUGH PAIN Last administered on 08/05/16 20:49; Start 08/04/16 at 17:45 Ondansetron HCl (Zofran Inj) 4 mg Q8HR PRN IV PUSH NAUSEA Last administered on 08/05/16 12:53; Start 08/04/16 at 18:15 Potassium Chloride (KCl) 30 meq ONCE ONCE PO Last administered on 08/05/16 09 :05; Start 08/05/16 at 07:45; Stop 08/05/16 at 07:46; Status DC Promethazine HCl 12.5 mg 12.5 mg Q6H PRN IM NAUSEA Last administered on 08:10; Start 08/05/16 at 07:45 Azithromycin/ Sodium Chloride (Zithromax Inj/ NS 250 ml Inj) 250 ml @ 250 mls/ hr Q24H IV Last administered on 08/05/16 14:49; Start 08/05/16 at 14:00 Calcium Carbonate (Tums Chew) 500 mg Q6H PRN CHEW DYSPEPSIA Last administered on 08/05/16 18:06; Start 08/05/16 at 13:30 Diltiazem HCl (Cardizem) 30 mg QID PO Last administered on 08/06/16 09:03; Start 08/05/16 at 14:15 Albuterol/ Ipratropium (Duoneb Neb) 1 ampule QID NEB NEB Last administered on 08/05/16 20:03; Start 08/05/16 at 20:00 Metoprolol Tartrate (Lopressor Inj) 5 mg ONCE ONCE IV PUSH Last administered on 08/05/16 23:45; Start 08/05/16 at 23:45; Stop 08/05/16 at 23:46; Status DC A/P Assessment and Plan A/P Bilateral hydronephrosis with Obstructive uropathywith bladder of the obstruction with History of prostate cancerstatus post radiation therapy s/p menendez cath insertion- urology consult appreciated; will discharge with menendez cath in place- f/u as outpatient. Acute renal failure- s/p menendez cath placement- improving- will monitor renal function closely acute on chronic respiratory failure due to pneumonia continue with antibiotics- neb treatment- oxygen as needed to keep O2 sat > 90% check blood and sputum cultures- of note the patient is on home oxygen. tachycardia due to pneumonia/ respiratory failure- continue cardizem echo with EF 55%- Bilateral pitting edema venous doppler negative for DVT- will monitor Hematurialikely due to traumatic Menendez, compounded by bladder mucosa irritation from distention urology consulted as noted above. Leukocytosis with left shiftdue to infection- obtain the blood cultures- continue antibiotics and follow the trend. Hyponatremia; due to renal failure-improved- will monitor hypokalemia; will replace History of hypertension; resumed home meds History of COPD; resumed home meds John Arana MD Aug 06, 2016 09:58
[2016-08-06] MEDS ORDERED: POTASSIUM CHLORIDE 10 MEQ CONTROLLED RELEASE TAB PO ONE (11:00)
[2016-08-06] MEDS: AZITHROMYCIN INJ 500 MG in SODIUM CHLOR 0.9% 250 ML INJ 250 ML IV SCH (12:57)
--- NOTE | 2016-08-06 19:37 | HHI.PR ---
Subjective Remarks Feels better. No fever. C/O Ventral Hernia. No Chest pain. Objective Vital Signs Date Time Temp Pulse Resp B/P Pulse Ox O2 Delivery O2 Flow Rate FiO2 08/06/16 15:00 98.2 104 18 153/87 95 08/06/16 08:15 95 Nasal Cannula 3.00 08/06/16 08:00 98.5 110 18 139/91 94 08/06/16 03:25 98.6 112 16 146/93 93 08/06/16 00:15 154/90 08/06/16 00:14 98.2 125 16 162/102 90 08/05/16 20:04 94 Nasal Cannula 3.00 08/05/16 20:00 98.1 120 16 135/89 91 I/O 08/05/16 08/05/16 08/05/16 08/06/16 08/06/16 08/06/16 07:00 15:00 23:00 07:00 15:00 23:00 Intake Total 970 ml 480 ml Output Total 1200 ml 1000 ml 450 ml 1100 ml Balance -1200 ml -1000 ml 520 ml -620 ml Intake Oral 720 ml 480 ml IV Total 250 ml 0 ml Output Urine Total 1200 ml 1000 ml 450 ml 1100 ml # Bowel Movements 0 Result Diagram: 08/06/160 08/06/16 0440 Objective Remarks This is elderly man, averagely built,W/M in no acute distress. HEENT: Head normocephalic. Pupils reactive and equal. Tongue is moist. Throat is dry. Neck: Supple. No bruits, no thyroid enlargement, no lymphadenopathy. Chest: Equal movements with increased AP diameter with diffuse wheezes throughout both lung garcia. Prolonged expirations. There are few crackles at the right base. Heart: The heart sounds are regular S1-S2. No murmur. Abdomen is soft, and there is a large ventral hernia with multiple scars on it. The hernia is reducible. There is no organomegaly or tenderness. Bowel sounds are faint. Extremities: Reveal no definite lesions.Neuro , no deficits. Assessment and Plan Assessment and Plan IMPRESSION 1. COPD with acute exacerbation 2. Severe emphysema with chronic bronchitis 3. Large ventral hernia. 4. History of hypertension and hyperlipidemia. 5. Basal Pneumonia. Plan : 1. Cont Antibiotics.Rocephin and Zithro. 2. Nebs qid , duoneb. 3. Cont Solumedrol 40 mg IV q8h. 4. BMP in am. 5. Urology evaluation 6. PFT in am. Rajat Michel MD Aug 06, 2016 19:37
[2016-08-06] MEDS: TAMSULOSIN HCL 0.4 MG CAP PO SCH (22:40)
[2016-08-06] MEDS: methylPREDNISolone SOD SUCC 40 MG/1 ML VIAL IV SCH (22:44)
[2016-08-07] VITALS (30 sets, daily range): BP systolic 129–143; BP diastolic 73–87; PULSE 84–112; RESP 16–20; TEMP 90–98.4; O2SAT 92–96
[2016-08-07] MEDS: methylPREDNISolone SOD SUCC 40 MG/1 ML VIAL IV SCH ×2 (04:00→11:17)
[2016-08-07 07:54] LABS: AUTOMATED NEUTROPHIL # 18.5 TH/MM3 (1.8-7.7); EOSINOPHIL % 0.1 % (0.0-4.0); HEMATOCRIT 26.4 % (39.0-51.0); LYMPH % 3.4 % (9.0-44.0); LYMPHOCYTE # 0.7 TH/MM3 (1.0-4.8); MEAN CORPUSCULAR HEMOGLOBIN 31.9 PG (27.0-34.0); MEAN CORPUSCULAR HGB CONC 33.9 % (32.0-36.0); MONO % 1.6 % (0.0-8.0); NEUT % 94.9 % (16.0-70.0); PLATELET COUNT 328 TH/MM3 (150-450); RED CELL DISTRIBUTION WIDTH 14.4 % (11.6-17.2); WHITE BLOOD COUNT 19.5 TH/MM3 (4.0-11.0)
[2016-08-07] MEDS: RESP: ALBUTEROL 2.5 MG/IPRATROPIUM 0.5 MG NEB (SCH) NEB ×4 (08:04→20:37)
[2016-08-07 08:19] LABS: BICARBONATE 36.5 MEQ/L (21.0-32.0); POTASSIUM 3.2 MEQ/L (3.5-5.1)
[2016-08-07 08:44] LABS: HEMO FLAGS AUTO DIFF
[2016-08-07] MEDS: PANTOPRAZOLE SOD 40 MG DELAYED RELEASE TAB PO SCH (09:00)
[2016-08-07] MEDS: SODIUM CHLORIDE 0.9% FLUSH 5 ML FLUSH FLUSH SCH ×2 (09:00→21:07)
[2016-08-07] MEDS: DILTIAZEM HCL 30 MG TAB PO SCH ×4 (09:00→21:06)
[2016-08-07] MEDS: BUDESONIDE-FORMOTEROL 160/4.5 MCG INHALER INH SCH ×2 (09:00→21:07)
[2016-08-07 09:36] LABS: BANDS 4 % (0-6); MYELOCYTES 3 % (0-0); NEUTROPHIL # MANUAL DIFF 19.1 TH/MM3 (1.8-7.7); POLYS (SEG NEUTROPHILS) 91 % (16-70); WBC DIFF SAMPLE 100
[2016-08-07 09:37] LABS: KERATOCYTES OCC (NORMAL); PLATELET ESTIMATE SMEAR NORMAL (NORMAL); PLATELET MORPHOLOGY NORMAL (NORMAL); SCAN/DIFF FINAL DIFF MANUAL
[2016-08-07] MEDS: cefTRIAXone INJ 1,000 MG in SODIUM CHLORIDE 0.9% INJ 100 ML IV SCH (10:00)
--- NOTE | 2016-08-07 10:17 | HHI.PR ---
Subjective Remarks sob has improved. no chest pain. no fever. d/w the RN. Objective Vitals Vital Signs Date Time Temp Pulse Resp B/P Pulse Ox O2 Delivery O2 Flow Rate FiO2 08/07/16 08:04 93 Nasal Cannula 3.00 08/07/16 06:00 96 08/07/16 05:14 97.6 101 16 143/82 93 08/07/16 05:00 96 08/07/16 04:00 100 08/07/16 03:00 102 08/07/16 02:00 108 08/07/16 01:00 112 08/07/16 00:00 106 08/06/16 23:00 97.6 82 16 137/84 92 08/06/16 23:00 104 08/06/16 22:00 108 08/06/16 21:48 93 Nasal Cannula 3.00 08/06/16 21:00 108 08/06/16 20:00 110 08/06/16 20:00 97.6 100 16 138/85 90 08/06/16 19:00 116 08/06/16 15:00 98.2 104 18 153/87 95 I/O 08/06/16 08/06/16 08/06/16 08/07/16 08/07/16 08/07/16 07:00 15:00 23:00 07:00 15:00 23:00 Intake Total 480 ml 680 ml Output Total 1100 ml 2150 ml Balance -620 ml -1470 ml Intake Oral 480 ml 680 ml IV Total 0 ml Output Urine Total 1100 ml 2150 ml # Bowel Movements 0 Result Diagram: 08/07/16 0720 08/07/16 0720 Imaging Last Impressions Chest X-Ray 08/05/16 0000 Signed Impressions: Service Date/Time: Friday, August 05, 2016 07:49 - CONCLUSION: 1. Interstitial fibrotic changes with bibasilar infiltrate concerning for pneumonia unchanged from previous dated 08/04/16. Reynold Olson MD Abdomen/Pelvis CT 08/04/16 0035 Signed Impressions: Service Date/Time: Thursday, August 04, 2016 01:07 - CONCLUSION: 1. Probable generalized small bowel ileus. 2. Marked bladder distention with bilateral hydronephrosis to mild degree which may be on the basis of bladder outlet traction. 3. Bibasilar edema versus pneumonia with bilateral effusions Gareth Escalante MD Lower Extremity Ultrasound 08/04/16 0000 Signed Impressions: Service Date/Time: Thursday, August 04, 2016 08:31 - CONCLUSION: 1. No evidence of deep venous thrombosis. 2. Bilateral Phillips's cysts left greater than right. Ian Horton MD Objective Remarks GENERAL: This is a well-nourished, well-developed patient, in no apparent distress. CARDIOVASCULAR: Regular rate and regular rhythm without murmurs, gallops, or rubs. RESPIRATORY: Clear to auscultation. Breath sounds equal bilaterally. No wheezes , rales, or rhonchi. GASTROINTESTINAL: Abdomen soft, non-tender, nondistended. Normal, active bowel sounds MUSCULOSKELETAL: Extremities without clubbing, cyanosis, or edema. NEURO: Alert & Oriented x4 to person, place, time, situation. Moves all ext x4 Procedures none Medications and IVs Current Medications IV Flush (NS Flush) 2 ml UNSCH PRN IVF FLUSH AFTER USING IV ACCESS; Start 08/04 at 00:45; Stop 08/04/16 at 02:40; Status DC Albuterol/ Ipratropium (Duoneb Neb) 1 ampule ONCE ONCE INH Last administered on 08/04/16 00:49; Start 08/04/16 at 00:45; Stop 08/04/16 at 00:46; Status DC Morphine Sulfate (Morphine Inj) 4 mg ONCE ONCE IV PUSH Last administered on 01:00; Start 08/04/16 at 00:45; Stop 08/04/16 at 00:46; Status DC Ondansetron HCl 4 mg 4 mg ONCE ONCE IVP Last administered on 08/04/16 00:59; Start 08/04/16 at 00:45; Stop 08/04/16 at 00:46; Status DC Sodium Chloride (NS 1000 ml Inj) 1,000 ml @ 125 mls/hr Q8H IV Last administered on 08/04/16 00:59; Start 08/04/16 at 00:35; Stop 08/04/16 at 02:33 ; Status DC IV Flush 2 ml 2 ml UNSCH PRN IVF FLUSH AFTER USING IV ACCESS; Start 08/04/16 at 00:45; Stop 08/04/16 at 02:40; Status DC Cefepime HCl 2000 mg/Sodium Chloride 100 ml @ 200 mls/hr ONCE ONCE IV Last administered on 08/04/16 03:21; Start 08/04/16 at 02:15; Stop 08/04/16 at 02:44 ; Status DC Azithromycin/ Sodium Chloride (Zithromax Inj/ NS 250 ml Inj) 250 ml @ 250 mls/ hr ONCE ONCE IV Last administered on 08/04/16 04:18; Start 08/04/16 at 02:15 ; Stop 08/04/16 at 03:14; Status DC IV Flush (NS Flush) 2 ml UNSCH PRN FLUSH FLUSH AFTER USING IV ACCESS; Start at 02:45 IV Flush (NS Flush) 2 ml BID FLUSH Last administered on 08/07/16 09:00; Start 08/04/16 at 09:00 Heparin Sodium (Porcine) (Heparin Inj) 5,000 units Q8H SQ ; Start 08/04/16 at 06 :00; Stop 08/04/16 at 06:00; Status DC Naloxone HCl (Narcan Inj) 0.4 mg UNSCH PRN IV SEE LABEL COMMENTS; Start at 02:45 Levofloxacin (Levaquin) 750 mg ONCE ONCE PO Last administered on 08/04/16 05: 56; Start 08/04/16 at 05:45; Stop 08/04/16 at 05:46; Status DC Albuterol/ Ipratropium (Duoneb Neb) 1 ampule Q2HR NEB PRN NEB wheezing; Start 08/04/16 at 06:00; Stop 08/04/16 at 17:00; Status DC Albuterol/ Ipratropium (Duoneb Neb) 1 ampule Q6HR NEB NEB ; Start 08/04/16 at 10:00; Stop 08/04/16 at 17:00; Status DC Tiotropium [place] (Spiriva Inh) 18 mcg DAILY INH ; Start 08/04/16 at 09:00; Stop 08/04/16 at 10:20; Status DC Budesonide/ Formoterol Fumarate (Symbicort 160-4.5 Inh) 2 puff BID INH ; Start 08/04/16 at 09:30; Stop 08/04/16 at 10:20; Status DC Cyclobenzaprine HCl (Flexeril) 5 mg HS PO ; Start 08/04/16 at 21:00; Stop at 21:00; Status DC Diltiazem HCl 120 mg 120 mg DAILY PO ; Start 08/04/16 at 09:30; Stop 08/04/16 at 10:20; Status DC Ceftriaxone Sodium/Sodium Chloride (Rocephin Inj/NS Inj) 100 ml @ 200 mls/hr Q24H IV Last administered on 08/07/16 10:00; Start 08/05/16 at 10:00 Acetaminophen (Tylenol) 650 mg Q4H PRN PO FEVER/ PAIN < 5; Start 08/04/16 at 09 :00 Acetaminophen/ Hydrocodone Bitart ([place] 5-325 Mg) 1 tab Q6H PRN PO PAIN > 5 Last administered on 08/06/16 22:40; Start 08/04/16 at 09:00 Miscellaneous (Pill Splitter) 1 ea UNSCH PRN OTHER SEE LABEL COMMENTS; Start at 09:30 Amlodipine Besylate (Norvasc) 10 mg DAILY PO Last administered on 08/05/16 10: 32; Start 08/05/16 at 09:00; Status Hold Pantoprazole Sodium (Protonix) 40 mg DAILY PO Last administered on 08/07/16 09 :00; Start 08/05/16 at 09:00 Tamsulosin HCl (Flomax) 0.4 mg HS PO Last administered on 08/06/16 22:40; Start 08/04/16 at 21:00 Budesonide/ Formoterol Fumarate (Symbicort 160-4.5 Inh) 2 puff BID INH Last administered on 08/07/16 09:00; Start 08/04/16 at 21:00 Albuterol/ Ipratropium (Duoneb Neb) 1 ampule Q6HR NEB PRN NEB SHORTNESS OF BREATH Last administered on 08/05/16 17:05; Start 08/04/16 at 17:15 Al Hydrox/Mg Hydrox/Simethicone (Mag-Al Plus Susp Liq) 30 ml Q6H PRN PO INDIGESTION Last administered on 08/05/16 12:55; Start 08/04/16 at 17:45 Hydromorphone HCl (Dilaudid Pf Inj) 0.5 mg Q4H PRN IV PUSH BREAKTHROUGH PAIN Last administered on 08/05/16 20:49; Start 08/04/16 at 17:45 Ondansetron HCl (Zofran Inj) 4 mg Q8HR PRN IV PUSH NAUSEA Last administered on 08/05/16 12:53; Start 08/04/16 at 18:15 Potassium Chloride (KCl) 30 meq ONCE ONCE PO Last administered on 08/05/16 09 :05; Start 08/05/16 at 07:45; Stop 08/05/16 at 07:46; Status DC Promethazine HCl 12.5 mg 12.5 mg Q6H PRN IM NAUSEA Last administered on 08:10; Start 08/05/16 at 07:45 Azithromycin/ Sodium Chloride (Zithromax Inj/ NS 250 ml Inj) 250 ml @ 250 mls/ hr Q24H IV Last administered on 08/06/16 12:57; Start 08/05/16 at 14:00 Calcium Carbonate (Tums Chew) 500 mg Q6H PRN CHEW DYSPEPSIA Last administered on 08/05/16 18:06; Start 08/05/16 at 13:30 Diltiazem HCl (Cardizem) 30 mg QID PO Last administered on 08/07/16 09:00; Start 08/05/16 at 14:15 Albuterol/ Ipratropium (Duoneb Neb) 1 ampule QID NEB NEB Last administered on 08/07/16 08:04; Start 08/05/16 at 20:00 Metoprolol Tartrate (Lopressor Inj) 5 mg ONCE ONCE IV PUSH Last administered on 08/05/16 23:45; Start 08/05/16 at 23:45; Stop 08/05/16 at 23:46; Status DC Potassium Chloride (KCl) 30 meq ONCE ONCE PO Last administered on 08/06/16 12 :56; Start 08/06/16 at 11:00; Stop 08/06/16 at 11:01; Status DC Methylprednisolone Sodium Succinate (SoluMEDROL INJ) 40 mg Q8H IV Last administered on 08/07/16 04:00; Start 08/06/16 at 20:00 A/P Assessment and Plan A/P Bilateral hydronephrosis with Obstructive uropathywith bladder of the obstruction with History of prostate cancerstatus post radiation therapy s/p menendez cath insertion- urology consult appreciated; will discharge with menendez cath in place- f/u as outpatient and this was d/w the patient. Acute renal failure- s/p menendez cath placement- resolved- acute on chronic respiratory failure due to pneumonia- improving slowly. continue with antibiotics- neb treatment- oxygen as needed to keep O2 sat > 90% follow the cultures.pulmonary following. of note the patient is on home oxygen. tachycardia due to pneumonia/ respiratory failure- continue cardizem echo with EF 55%- Bilateral pitting edema venous doppler negative for DVT- will monitor Hematurialikely due to traumatic Menendez, compounded by bladder mucosa irritation from distention urology consulted as noted above. Leukocytosis due to infection/ steroids-follow the blood cultures- continue antibiotics . Hyponatremia; due to renal failure-improved- will monitor hypokalemia; will replace History of hypertension; continue cardizem History of COPD; resumed home meds John Arana MD Aug 07, 2016 10:17
[2016-08-07] MEDS ORDERED: POTASSIUM CHLORIDE 20 MEQ CONTROLLED RELEASE TAB PO ONE (10:30)
[2016-08-07] MEDS: AZITHROMYCIN INJ 500 MG in SODIUM CHLOR 0.9% 250 ML INJ 250 ML IV SCH (14:00)
[2016-08-07] MEDS ORDERED: POTASSIUM CHLORIDE 10 MEQ CONTROLLED RELEASE TAB PO ONE (14:00)
--- NOTE | 2016-08-07 20:33 | HHI.PR ---
Subjective Remarks Less cough and wheezing. No fever. C/O Ventral Hernia. No Chest pain. Objective Vital Signs Date Time Temp Pulse Resp B/P Pulse Ox O2 Delivery O2 Flow Rate FiO2 08/07/16 18:00 102 08/07/16 17:00 92 08/07/16 16:00 90 08/07/16 15:00 84 08/07/16 15:00 98.4 89 20 140/82 93 08/07/16 14:00 90 08/07/16 13:00 100 08/07/16 12:00 86 08/07/16 11:15 98.2 91 20 129/76 92 08/07/16 11:00 100 08/07/16 10:00 102 08/07/16 09:00 102 08/07/16 08:04 93 Nasal Cannula 3.00 08/07/16 08:00 102 08/07/16 07:30 98.3 98 18 129/80 94 08/07/16 07:00 94 08/07/16 06:00 96 08/07/16 05:14 97.6 101 16 143/82 93 08/07/16 05:00 96 08/07/16 04:00 100 08/07/16 03:00 102 08/07/16 02:00 108 08/07/16 01:00 112 08/07/16 00:00 106 08/06/16 23:00 97.6 82 16 137/84 92 08/06/16 23:00 104 08/06/16 22:00 108 08/06/16 21:48 93 Nasal Cannula 3.00 08/06/16 21:00 108 I/O 08/06/16 08/06/16 08/06/16 08/07/16 08/07/16 08/07/16 07:00 15:00 23:00 07:00 15:00 23:00 Intake Total 480 ml 680 ml 1550 ml Output Total 1100 ml 2150 ml 1525 ml Balance -620 ml -1470 ml 25 ml Intake Oral 480 ml 680 ml 1200 ml IV Total 0 ml 350 ml Output Urine Total 1100 ml 2150 ml 1525 ml # Bowel Movements 0 Result Diagram: 08/07/16 0720 08/07/16 0720 Objective Remarks This is elderly man, averagely built,W/M in no acute distress. HEENT: Head normocephalic. Pupils reactive and equal. Tongue is moist. Throat is dry. Neck: Supple. No bruits, no thyroid enlargement, no lymphadenopathy. Chest: Equal movements with increased AP diameter with diffuse wheezes throughout both lung garcia. Prolonged expirations. No crackles. Heart: The heart sounds are regular S1-S2. No murmur. Abdomen is soft, and there is a large ventral hernia with multiple scars on the abdomen The hernia is reducible. There is no organomegaly or tenderness. Bowel sounds are faint. Extremities: Reveal no definite lesions.Neuro , no deficits. Assessment and Plan Assessment and Plan IMPRESSION 1. COPD with acute exacerbation 2. Severe emphysema with chronic bronchitis 3. Large ventral hernia. 4. History of hypertension and hyperlipidemia. 5. Basal Pneumonia. Plan : 1. Cont Antibiotics.Rocephin and D/C IV Zithro. 2. Nebs qid , duoneb. 3. Solumedrol 40 mg IV q12h. 4. IS qid . 5. Switch to PO meds in am 6. Cont Symbicort 160/4.5 mcg , 2puffs bid Rajat Michel MD Aug 07, 2016 20:32
[2016-08-07] MEDS: ACETAMINOPHEN/HYDROcodone 325 MG/5 MG TAB PO PRN (21:06)
[2016-08-07] MEDS: TAMSULOSIN HCL 0.4 MG CAP PO SCH (21:06)
[2016-08-08] VITALS (29 sets, daily range): BP systolic 123–147; BP diastolic 63–91; PULSE 76–109; RESP 16–20; TEMP 98.5–99; O2SAT 93–97
[2016-08-08 07:51] LABS: AUTOMATED NEUTROPHIL # 17.7 TH/MM3 (1.8-7.7); HEMATOCRIT 24.2 % (39.0-51.0); LYMPH % 4.4 % (9.0-44.0); LYMPHOCYTE # 0.8 TH/MM3 (1.0-4.8); MEAN CORPUSCULAR HGB CONC 34.1 % (32.0-36.0); MONO % 4.3 % (0.0-8.0); NEUT % 91.3 % (16.0-70.0); PLATELET COUNT 287 TH/MM3 (150-450); RED BLOOD COUNT 2.57 MIL/MM3 (4.50-5.90); RED CELL DISTRIBUTION WIDTH 14.4 % (11.6-17.2); WHITE BLOOD COUNT 19.4 TH/MM3 (4.0-11.0)
[2016-08-08] MEDS: ACETAMINOPHEN/HYDROcodone 325 MG/5 MG TAB PO PRN ×3 (07:56→20:49)
[2016-08-08 08:00] LABS: HEMO FLAGS AUTO DIFF
[2016-08-08 08:24] LABS: BICARBONATE 33.3 MEQ/L (21.0-32.0); POTASSIUM 3.7 MEQ/L (3.5-5.1)
[2016-08-08] MEDS: RESP: ALBUTEROL 2.5 MG/IPRATROPIUM 0.5 MG NEB (SCH) NEB ×4 (08:45→20:47)
[2016-08-08] MEDS ORDERED: methylPREDNISolone SOD SUCC 40 MG/1 ML VIAL IV SCH ×2 (09:00→21:00)
[2016-08-08] MEDS: SODIUM CHLORIDE 0.9% FLUSH 5 ML FLUSH FLUSH SCH ×2 (09:37→20:39)
[2016-08-08] MEDS: DILTIAZEM HCL 30 MG TAB PO SCH ×4 (09:38→20:39)
[2016-08-08] MEDS: cefTRIAXone INJ 1,000 MG in SODIUM CHLORIDE 0.9% INJ 100 ML IV SCH (09:38)
[2016-08-08] MEDS: PANTOPRAZOLE SOD 40 MG DELAYED RELEASE TAB PO SCH (09:38)
[2016-08-08] MEDS: CALCIUM CARBONATE 500 MG CHEWABLE TAB CHEW PRN ×2 (09:38→17:07)
[2016-08-08] MEDS: BUDESONIDE-FORMOTEROL 160/4.5 MCG INHALER INH SCH ×2 (09:39→20:40)
[2016-08-08 10:06] LABS: BANDS 3 % (0-6); CORRECTED NUCLEATED RBC 1 /100 WBC (0-0); MYELOCYTES 4 % (0-0); NEUTROPHIL # MANUAL DIFF 17.5 TH/MM3 (1.8-7.7); PLATELET ESTIMATE SMEAR NORMAL (NORMAL); PLATELET MORPHOLOGY NORMAL (NORMAL); POLYS (SEG NEUTROPHILS) 83 % (16-70); SCAN/DIFF FINAL DIFF MANUAL; WBC DIFF SAMPLE 100
--- NOTE | 2016-08-08 10:35 | HHI.PR ---
Subjective Remarks overall feeling better. says that his heart burn is better. but noticed some dark stool yesterday. sob is better. no fever. d/w the RN. Objective Vitals Vital Signs Date Time Temp Pulse Resp B/P Pulse Ox O2 Delivery O2 Flow Rate FiO2 08/08/16 08:47 94 Nasal Cannula 3.00 08/08/16 07:50 98.8 91 18 132/78 96 08/08/16 05:20 98.6 88 16 129/76 96 08/08/16 05:00 83 08/08/16 04:00 88 08/08/16 03:00 86 08/08/16 02:00 76 08/08/16 01:02 98.6 83 16 123/63 95 08/08/16 01:00 78 08/08/16 00:00 84 08/07/16 23:00 102 08/07/16 22:00 106 08/07/16 21:00 110 08/07/16 20:46 98.4 90 16 139/87 96 08/07/16 20:39 93 Nasal Cannula 3.00 08/07/16 20:00 104 08/07/16 19:00 110 08/07/16 18:00 102 08/07/16 17:00 92 08/07/16 16:00 90 08/07/16 15:00 84 08/07/16 15:00 98.4 89 20 140/82 93 08/07/16 14:00 90 08/07/16 13:00 100 08/07/16 12:00 86 08/07/16 11:15 98.2 91 20 129/76 92 08/07/16 11:00 100 I/O 08/07/16 08/07/16 08/07/16 08/08/16 08/08/16 08/08/16 07:00 15:00 23:00 07:00 15:00 23:00 Intake Total 680 ml 1550 ml 420 ml Output Total 2150 ml 1525 ml 2300 ml 700 ml Balance -1470 ml 25 ml -1880 ml -700 ml Intake Oral 680 ml 1200 ml 420 ml IV Total 350 ml 0 ml Output Urine Total 2150 ml 1525 ml 2300 ml 700 ml # Bowel Movements 1 1 Result Diagram: 08/08/16 0641 08/08/16 0641 Imaging Last Impressions Chest X-Ray 08/05/16 0000 Signed Impressions: Service Date/Time: Friday, August 05, 2016 07:49 - CONCLUSION: 1. Interstitial fibrotic changes with bibasilar infiltrate concerning for pneumonia unchanged from previous dated 08/04/16. Reynold Olson MD Abdomen/Pelvis CT 08/04/16 0035 Signed Impressions: Service Date/Time: Thursday, August 04, 2016 01:07 - CONCLUSION: 1. Probable generalized small bowel ileus. 2. Marked bladder distention with bilateral hydronephrosis to mild degree which may be on the basis of bladder outlet traction. 3. Bibasilar edema versus pneumonia with bilateral effusions Gareth Escalante MD Lower Extremity Ultrasound 08/04/16 0000 Signed Impressions: Service Date/Time: Thursday, August 04, 2016 08:31 - CONCLUSION: 1. No evidence of deep venous thrombosis. 2. Bilateral Phillips's cysts left greater than right. Ian Horton MD Objective Remarks GENERAL: This is a well-nourished, well-developed patient, in no apparent distress. CARDIOVASCULAR: Regular rate and regular rhythm without murmurs, gallops, or rubs. RESPIRATORY: Clear to auscultation. Breath sounds equal bilaterally. No wheezes , rales, or rhonchi. GASTROINTESTINAL: Abdomen soft, non-tender, nondistended. Normal, active bowel sounds MUSCULOSKELETAL: Extremities without clubbing, cyanosis, or edema. NEURO: Alert & Oriented x4 to person, place, time, situation. Moves all ext x4 Procedures none Medications and IVs Current Medications IV Flush (NS Flush) 2 ml UNSCH PRN IVF FLUSH AFTER USING IV ACCESS; Start 08/04 at 00:45; Stop 08/04/16 at 02:40; Status DC Albuterol/ Ipratropium (Duoneb Neb) 1 ampule ONCE ONCE INH Last administered on 08/04/16 00:49; Start 08/04/16 at 00:45; Stop 08/04/16 at 00:46; Status DC Morphine Sulfate (Morphine Inj) 4 mg ONCE ONCE IV PUSH Last administered on 01:00; Start 08/04/16 at 00:45; Stop 08/04/16 at 00:46; Status DC Ondansetron HCl 4 mg 4 mg ONCE ONCE IVP Last administered on 08/04/16 00:59; Start 08/04/16 at 00:45; Stop 08/04/16 at 00:46; Status DC Sodium Chloride (NS 1000 ml Inj) 1,000 ml @ 125 mls/hr Q8H IV Last administered on 08/04/16 00:59; Start 08/04/16 at 00:35; Stop 08/04/16 at 02:33 ; Status DC IV Flush 2 ml 2 ml UNSCH PRN IVF FLUSH AFTER USING IV ACCESS; Start 08/04/16 at 00:45; Stop 08/04/16 at 02:40; Status DC Cefepime HCl 2000 mg/Sodium Chloride 100 ml @ 200 mls/hr ONCE ONCE IV Last administered on 08/04/16 03:21; Start 08/04/16 at 02:15; Stop 08/04/16 at 02:44 ; Status DC Azithromycin/ Sodium Chloride (Zithromax Inj/ NS 250 ml Inj) 250 ml @ 250 mls/ hr ONCE ONCE IV Last administered on 08/04/16 04:18; Start 08/04/16 at 02:15 ; Stop 08/04/16 at 03:14; Status DC IV Flush (NS Flush) 2 ml UNSCH PRN FLUSH FLUSH AFTER USING IV ACCESS; Start at 02:45 IV Flush (NS Flush) 2 ml BID FLUSH Last administered on 08/08/16 09:37; Start 08/04/16 at 09:00 Heparin Sodium (Porcine) (Heparin Inj) 5,000 units Q8H SQ ; Start 08/04/16 at 06 :00; Stop 08/04/16 at 06:00; Status DC Naloxone HCl (Narcan Inj) 0.4 mg UNSCH PRN IV SEE LABEL COMMENTS; Start at 02:45 Levofloxacin (Levaquin) 750 mg ONCE ONCE PO Last administered on 08/04/16 05: 56; Start 08/04/16 at 05:45; Stop 08/04/16 at 05:46; Status DC Albuterol/ Ipratropium (Duoneb Neb) 1 ampule Q2HR NEB PRN NEB wheezing; Start 08/04/16 at 06:00; Stop 08/04/16 at 17:00; Status DC Albuterol/ Ipratropium (Duoneb Neb) 1 ampule Q6HR NEB NEB ; Start 08/04/16 at 10:00; Stop 08/04/16 at 17:00; Status DC Tiotropium [place] (Spiriva Inh) 18 mcg DAILY INH ; Start 08/04/16 at 09:00; Stop 08/04/16 at 10:20; Status DC Budesonide/ Formoterol Fumarate (Symbicort 160-4.5 Inh) 2 puff BID INH ; Start 08/04/16 at 09:30; Stop 08/04/16 at 10:20; Status DC Cyclobenzaprine HCl (Flexeril) 5 mg HS PO ; Start 08/04/16 at 21:00; Stop at 21:00; Status DC Diltiazem HCl 120 mg 120 mg DAILY PO ; Start 08/04/16 at 09:30; Stop 08/04/16 at 10:20; Status DC Ceftriaxone Sodium/Sodium Chloride (Rocephin Inj/NS Inj) 100 ml @ 200 mls/hr Q24H IV Last administered on 08/08/16 09:38; Start 08/05/16 at 10:00 Acetaminophen (Tylenol) 650 mg Q4H PRN PO FEVER/ PAIN < 5; Start 08/04/16 at 09 :00 Acetaminophen/ Hydrocodone Bitart ([place] 5-325 Mg) 1 tab Q6H PRN PO PAIN > 5 Last administered on 08/08/16 07:56; Start 08/04/16 at 09:00 Miscellaneous (Pill Splitter) 1 ea UNSCH PRN OTHER SEE LABEL COMMENTS; Start at 09:30 Amlodipine Besylate (Norvasc) 10 mg DAILY PO Last administered on 08/05/16 10: 32; Start 08/05/16 at 09:00; Status Hold Pantoprazole Sodium (Protonix) 40 mg DAILY PO Last administered on 08/08/16 09 :38; Start 08/05/16 at 09:00 Tamsulosin HCl (Flomax) 0.4 mg HS PO Last administered on 08/07/16 21:06; Start 08/04/16 at 21:00 Budesonide/ Formoterol Fumarate (Symbicort 160-4.5 Inh) 2 puff BID INH Last administered on 08/08/16 09:39; Start 08/04/16 at 21:00 Albuterol/ Ipratropium (Duoneb Neb) 1 ampule Q6HR NEB PRN NEB SHORTNESS OF BREATH Last administered on 08/05/16 17:05; Start 08/04/16 at 17:15 Al Hydrox/Mg Hydrox/Simethicone (Mag-Al Plus Susp Liq) 30 ml Q6H PRN PO INDIGESTION Last administered on 08/05/16 12:55; Start 08/04/16 at 17:45 Hydromorphone HCl (Dilaudid Pf Inj) 0.5 mg Q4H PRN IV PUSH BREAKTHROUGH PAIN Last administered on 08/05/16 20:49; Start 08/04/16 at 17:45 Ondansetron HCl (Zofran Inj) 4 mg Q8HR PRN IV PUSH NAUSEA Last administered on 08/05/16 12:53; Start 08/04/16 at 18:15 Potassium Chloride (KCl) 30 meq ONCE ONCE PO Last administered on 08/05/16 09 :05; Start 08/05/16 at 07:45; Stop 08/05/16 at 07:46; Status DC Promethazine HCl 12.5 mg 12.5 mg Q6H PRN IM NAUSEA Last administered on 08:10; Start 08/05/16 at 07:45 Azithromycin/ Sodium Chloride (Zithromax Inj/ NS 250 ml Inj) 250 ml @ 250 mls/ hr Q24H IV Last administered on 08/07/16 14:00; Start 08/05/16 at 14:00; Stop 08/07/16 at 20:31; Status DC Calcium Carbonate (Tums Chew) 500 mg Q6H PRN CHEW DYSPEPSIA Last administered on 08/08/16 09:38; Start 08/05/16 at 13:30 Diltiazem HCl (Cardizem) 30 mg QID PO Last administered on 08/08/16 09:38; Start 08/05/16 at 14:15 Albuterol/ Ipratropium (Duoneb Neb) 1 ampule QID NEB NEB Last administered on 08/08/16 08:45; Start 08/05/16 at 20:00 Metoprolol Tartrate (Lopressor Inj) 5 mg ONCE ONCE IV PUSH Last administered on 08/05/16 23:45; Start 08/05/16 at 23:45; Stop 08/05/16 at 23:46; Status DC Potassium Chloride (KCl) 30 meq ONCE ONCE PO Last administered on 08/06/16 12 :56; Start 08/06/16 at 11:00; Stop 08/06/16 at 11:01; Status DC Methylprednisolone Sodium Succinate (SoluMEDROL INJ) 40 mg Q8H IV Last administered on 08/07/16 11:17; Start 08/06/16 at 20:00; Stop 08/07/16 at 20:31 ; Status DC Potassium Chloride (KCl) 40 meq ONCE ONCE PO Last administered on 08/07/16 10 :30; Start 08/07/16 at 10:30; Stop 08/07/16 at 10:34; Status DC Potassium Chloride (KCl) 30 meq ONCE ONCE PO Last administered on 08/07/16 15 :04; Start 08/07/16 at 14:00; Stop 08/07/16 at 14:01; Status DC Methylprednisolone Sodium Succinate (SoluMEDROL INJ) 40 mg BID IV Last administered on 08/08/16 09:39; Start 08/08/16 at 09:00 A/P Assessment and Plan A/P Bilateral hydronephrosis with Obstructive uropathywith bladder of the obstruction with History of prostate cancerstatus post radiation therapy s/p menendez cath insertion- urology consult appreciated; will discharge with menendez cath in place- f/u as outpatient and this was d/w the patient. Acute renal failure- s/p menendez cath placement- resolved- acute on chronic respiratory failure due to pneumonia- improving slowly. continue with antibiotics- neb treatment- oxygen as needed to keep O2 sat > 90% - continue to taper down IV steroid. follow the cultures.pulmonary following. of note the patient is on home oxygen. tachycardia due to pneumonia/ respiratory failure- improved- continue cardizem echo with EF 55%- Bilateral pitting edema venous doppler negative for DVT- will monitor Hematurialikely due to traumatic Menendez, compounded by bladder mucosa irritation from distention urology consulted as noted above. anemia- with reported melena and gradual drop in H/H- r/o GI bleed- will monitor H/H for now; CBC in am- stool for blood and iron studies.consult GI. Leukocytosis due to infection/ steroids-follow the blood cultures- continue antibiotics . Hyponatremia; due to renal failure-improved- will monitor hypokalemia; replaced. History of hypertension; continue cardizem History of COPD; resumed home meds Discharge Planning possible dc home in am if stable. John Arana MD Aug 08, 2016 10:35
--- NOTE | 2016-08-08 10:50 | HHI.FF ---
Face to Face Verification Diagnosis: (1) COPD exacerbation Physical Therapy Order: Evaluate and Treat Home Health Nursing Order: Medical education Signs/symptoms of disease process Nursing assessment with vital signs Hammond catheter maintenance I have seen patient Ravindra Thomason on 08/08/16. My clinical findings support the need for the requested home health care services because: Ltd mobility - disease progression I certify that my clinical findings support that this patient is homebound because: Hx COPD- exertion dyspnea/weakness Unsteady gait/balance John Arana MD Aug 08, 2016 10:50
[2016-08-08 14:46] LABS: FERRITIN 627 NG/ML (26-388); TRANSFERRIN IRON PROFILE 157 MG/DL (200-360)
--- NOTE | 2016-08-08 15:28 | PD.CONS ---
HPI History of Present Illness This is a 71 year old with past medical history of Hypertension, Hyperlipidemia , ventral hernia X 2 repairs COPD, Prostate CAstatus post radiation treatment 9 years ago who is here for evaluation of for abdomen pain in the flank area bilaterally, and was found to have bilateral hydronephrosis suggestive of bladder outlet obstruction, YUMIKO, electrolyte abnormalities and pneumonia. currently doing better with Hammond catheter and abx tx. GI have been consulted for anemia and reported melena. Patient reports one episode of black tarry stools few days ago, but no more, today he had a regular formed brown stool. He did have nausea and vomiting when he first came in, but no more, he has been tolerating diet okay, his abdomen is significant for ventral hernia that failed surgical intervention X 2. He had a drop in hh, this was 10.6 on admission, today hgb is 8.2. States he has chronic GERD fairly controlled with Omeprazole, never had EGD before, states he had a colonoscopy a year ago, can't recall the name of physician. He drinks on occasions, no NSAIDs or blood thinner. (Oscar Johnson) PFSH Past Medical History Hypertension Hyperlipidemia COPD Prostate CAstatus post radiation treatment 9 years ago Past Surgical History Reports surgeries for ventral hernia Appendectomy Surgery for perforated gastric ulcer Cataract surgery (Oscar Johnson) Coded Allergies: *MDRO Multi-Drug Resistant Organism (Verified Adverse Reaction, Unknown, ) MRSA (abdominal wound) 2015 per 04/10/2015 H&P Medications Current Medications Medications (Trade) Dose Ordered Sig/Tee Route Start Time Stop Time Status Last Admin (NS Flush) 2 ml UNSCH PRN FLUSH 08/04/16 02:45 (NS Flush) 2 ml BID FLUSH 08/04/16 09:00 08/08/16 09:37 Naloxone HCl 0.4 mg 0.4 mg UNSCH PRN IV 08/04/16 02:45 (Rocephin Inj/NS Inj) 100 ml @ 200 mls/hr Q24H IV 08/05/16 10:00 08/08/16 09:38 (Tylenol) 650 mg Q4H PRN PO 08/04/16 09:00 ([place] 5-325 Mg) 1 tab Q6H PRN PO 08/04/16 09:00 08/08/16 14:10 (Pill Splitter) 1 ea UNSCH PRN OTHER 08/04/16 09:30 (Norvasc) 10 mg DAILY PO 08/05/16 09:00 Hold 08/05/16 10:32 (Protonix) 40 mg DAILY PO 08/05/16 09:00 08/08/16 09:38 (Flomax) 0.4 mg HS PO 08/04/16 21:00 08/07/16 21:06 (Symbicort 160-4.5 Inh) 2 puff BID INH 08/04/16 21:00 08/08/16 09:39 (Mag-Al Plus Susp Liq) 30 ml Q6H PRN PO 08/04/16 17:45 08/05/16 12:55 (Dilaudid Pf Inj) 0.5 mg Q4H PRN IV PUSH 08/04/16 17:45 08/05/16 20:49 (Zofran Inj) 4 mg Q8HR PRN IV PUSH 08/04/16 18:15 08/05/16 12:53 (Phenergan Inj) 12.5 mg Q6H PRN IM 08/05/16 07:45 08/05/16 08:10 (Tums Chew) 500 mg Q6H PRN CHEW 08/05/16 13:30 08/08/16 09:38 (Cardizem) 30 mg QID PO 08/05/16 14:15 08/08/16 12:03 (SoluMEDROL INJ) 20 mg BID IV 08/08/16 21:00 Family History Denies family history of any medical issues Social History Still smokes a pack a day. Denies any alcohol abuse or drug abuse. Social drinker. (Oscar Johnson) Review of Systems Constitutional: DENIES: Night Sweats Endocrine: DENIES: Polyuria Eyes: DENIES: Double Vision Ears, nose, mouth, throat: DENIES: Hoarseness Respiratory: DENIES: Shortness of breath Cardiovascular: COMPLAINS OF: Lower Extremity Edema Gastrointestinal: COMPLAINS OF: Abdominal pain, Black stools, Nausea, Vomiting , DENIES: Bloody stools, Constipation, Diarrhea, Difficulty Swallowing, Anorexia, Odynophagia, Swelling of Abdomen, Heartburn, Hematemesis Genitourinary: DENIES: Hematuria Musculoskeletal: DENIES: Neck pain Integumentary: DENIES: Jaundice Hematologic/lymphatic: COMPLAINS OF: Bruising Immunologic/allergic: DENIES: Eczema Neurologic: DENIES: Abnormal gait Psychiatric: DENIES: Anxiety (KlausmonaOscar) GI Exam Vitals I&O Vital Signs Date Time Temp Pulse Resp B/P Pulse Ox O2 Delivery O2 Flow Rate FiO2 08/08/16 13:00 108 08/08/16 12:23 98.7 105 16 147/90 94 08/08/16 12:00 100 08/08/16 11:00 98 08/08/16 10:00 92 08/08/16 09:00 96 08/08/16 08:47 94 Nasal Cannula 3.00 08/08/16 08:00 90 08/08/16 07:50 98.8 91 18 132/78 96 08/08/16 07:00 94 08/08/16 05:20 98.6 88 16 129/76 96 08/08/16 05:00 83 08/08/16 04:00 88 08/08/16 03:00 86 08/08/16 02:00 76 08/08/16 01:02 98.6 83 16 123/63 95 08/08/16 01:00 78 08/08/16 00:00 84 08/07/16 23:00 102 08/07/16 22:00 106 08/07/16 21:00 110 08/07/16 20:46 98.4 90 16 139/87 96 08/07/16 20:39 93 Nasal Cannula 3.00 08/07/16 20:00 104 08/07/16 19:00 110 08/07/16 18:00 102 08/07/16 17:00 92 08/07/16 16:00 90 I/O 08/07/16 08/07/16 08/07/16 08/08/16 08/08/16 08/08/16 07:00 15:00 23:00 07:00 15:00 23:00 Intake Total 680 ml 1550 ml 420 ml Output Total 2150 ml 1525 ml 2300 ml 700 ml Balance -1470 ml 25 ml -1880 ml -700 ml Intake Oral 680 ml 1200 ml 420 ml IV Total 350 ml 0 ml Output Urine Total 2150 ml 1525 ml 2300 ml 700 ml # Bowel Movements 1 1 Imaging Last Impressions Chest X-Ray 08/05/16 0000 Signed Impressions: Service Date/Time: Friday, August 05, 2016 07:49 - CONCLUSION: 1. Interstitial fibrotic changes with bibasilar infiltrate concerning for pneumonia unchanged from previous dated 08/04/16. Reynold Olson MD Abdomen/Pelvis CT 08/04/16 0035 Signed Impressions: Service Date/Time: Thursday, August 04, 2016 01:07 - CONCLUSION: 1. Probable generalized small bowel ileus. 2. Marked bladder distention with bilateral hydronephrosis to mild degree which may be on the basis of bladder outlet traction. 3. Bibasilar edema versus pneumonia with bilateral effusions Gareth Escalante MD Lower Extremity Ultrasound 08/04/16 0000 Signed Impressions: Service Date/Time: Thursday, August 04, 2016 08:31 - CONCLUSION: 1. No evidence of deep venous thrombosis. 2. Bilateral Phillips's cysts left greater than right. Ian Horton MD Laboratory Test 08/08/16 06:41 White Blood Count 19.4 TH/MM3 Red Blood Count 2.57 MIL/MM3 Hemoglobin 8.2 GM/DL Hematocrit 24.2 % Mean Corpuscular Volume 94.0 FL Mean Corpuscular Hemoglobin 32.0 PG Mean Corpuscular Hemoglobin 34.1 % Concent Red Cell Distribution Width 14.4 % Platelet Count 287 TH/MM3 Mean Platelet Volume 7.7 FL Neutrophils (%) (Auto) 91.3 % Lymphocytes (%) (Auto) 4.4 % Monocytes (%) (Auto) 4.3 % Eosinophils (%) (Auto) 0.0 % Basophils (%) (Auto) 0.0 % Neutrophils # (Auto) 17.7 TH/MM3 Lymphocytes # (Auto) 0.8 TH/MM3 Monocytes # (Auto) 0.8 TH/MM3 Eosinophils # (Auto) 0.0 TH/MM3 Basophils # (Auto) 0.0 TH/MM3 CBC Comment AUTO DIFF Differential Total Cells 100 Counted Neutrophils % (Manual) 83 % Band Neutrophils % 3 % Lymphocytes % 2 % Monocytes % 8 % Neutrophils # (Manual) 17.5 TH/MM3 Myelocytes 4 % Nucleated Red Blood Cells 1 /100 WBC Differential Comment FINAL DIFF MANUAL Platelet Estimate NORMAL Platelet Morphology Comment NORMAL Sodium Level 133 MEQ/L Potassium Level 3.7 MEQ/L Chloride Level 93 MEQ/L Carbon Dioxide Level 33.3 MEQ/L Anion Gap 7 MEQ/L Blood Urea Nitrogen 16 MG/DL Creatinine 0.93 MG/DL Estimat Glomerular Filtration 80 ML/MIN Rate Random Glucose 137 MG/DL Calcium Level 8.6 MG/DL Iron Level 62 MCG/DL Total Iron Binding Capacity 220 MCG/DL Percent Iron Saturation 28.2 % Ferritin 627 NG/ML Date/Time Procedure Status Source Growth 08/06/16 12:20 Aerobic Blood Culture - Preliminary Resulted Blood Peripheral NO GROWTH IN 2 DAYS 08/06/16 12:20 Anaerobic Blood Culture - Preliminary Resulted Blood Peripheral NO GROWTH IN 2 DAYS 08/06/16 09:53 Aerobic Blood Culture Received Blood Peripheral Pending 08/06/16 09:53 Anaerobic Blood Culture Received Blood Peripheral Pending 08/04/16 02:30 Urine Culture - Final Complete Urine Clean Catch NO GROWTH IN 48 HOURS. Physical Examination HEENT: normocephalic; atraumatic; no jaundice. NECK: Neck is supple, no JVD, no lymphadenopathy. CHEST: Chest is clear to auscultation and percussion. CARDIAC: Regular rate and rhythm with no murmur gallop or rubs. ABDOMEN: Soft, nondistended, nontender; large ventral hernia, no hepatosplenomegaly; bowel sounds are present in all four quadrants. EXTREMITIES: No clubbing, cyanosis, + edema. SKIN: ecchymotic arms DRUM SEALER: No focal deficits; alert and oriented times three. (Oscar Johnson) Assessment and Plan Plan - Anemia/melena- Patient reports one episode of black tarry stools few days ago , but no more, today he had a regular formed brown stool. He did have nausea and vomiting when he first came in, but no more, he has been tolerating diet okay, his abdomen is significant for ventral hernia that failed surgical intervention X 2. He had a drop in hh, this was 10.6 on admission, today hgb is 8.2. States he has chronic GERD fairly controlled with Omeprazole, never had EGD before, states he had a colonoscopy a year ago, can't recall the name of physician. He drinks on occasions, no NSAIDs or blood thinner. stools for occult ordered, but not done, PPI, no active bleeding - Chronic GERD fairly controlled with Omeprazole, never had EGD before - bilateral hydronephrosis suggestive of bladder outlet obstruction- urology on the case, discharge with Hammond and op f/u - Pneumonia- Improving with abx, pulmonology on the case - YUMIKO, electrolyte abnormalities- improving per attending - past medical history of Hypertension, Hyperlipidemia, ventral hernia X 2 repairs COPD, Prostate CAstatus post radiation treatment 9 Plan: - SANDRO - EGD can be done on Wednesday - Cont. PPI - Monitor hh - Transfuse as needed - Supportive care - patient seen and examined by Dr. Sanders and myself and this note is written on his behalf. (Oscar Johnson) Physician Comments seen, examined agree with above he states he had a colonoscopy 1-2 yrs ago at [facility], possible with our group-could not find report-will check office records I found records from 2001-had adenomatous polyps and liver biopsy that showed hepatis and hemochromatosis -we will send hepatitis profile (Nusrat Sadners MD) Oscar Johnson Aug 08, 2016 15:28 Nusrat Sanders MD Aug 08, 2016 16:02
--- NOTE | 2016-08-08 17:59 | HHI.PR ---
Subjective Remarks Less cough and wheezing. Feels better overall. has trouble with Hammond. No Chest pain. Objective Vital Signs Date Time Temp Pulse Resp B/P Pulse Ox O2 Delivery O2 Flow Rate FiO2 08/08/16 17:00 105 08/08/16 16:06 109 08/08/16 15:30 99.0 104 20 127/82 97 08/08/16 15:11 103 08/08/16 14:00 108 08/08/16 13:00 108 08/08/16 12:23 98.7 105 16 147/90 94 08/08/16 12:00 100 08/08/16 11:00 98 08/08/16 10:00 92 08/08/16 09:00 96 08/08/16 08:47 94 Nasal Cannula 3.00 08/08/16 08:00 90 08/08/16 07:50 98.8 91 18 132/78 96 08/08/16 07:00 94 08/08/16 05:20 98.6 88 16 129/76 96 08/08/16 05:00 83 08/08/16 04:00 88 08/08/16 03:00 86 08/08/16 02:00 76 08/08/16 01:02 98.6 83 16 123/63 95 08/08/16 01:00 78 08/08/16 00:00 84 08/07/16 23:00 102 08/07/16 22:00 106 08/07/16 21:00 110 08/07/16 20:46 98.4 90 16 139/87 96 08/07/16 20:39 93 Nasal Cannula 3.00 08/07/16 20:00 104 08/07/16 19:00 110 08/07/16 18:00 102 I/O 08/07/16 08/07/16 08/07/16 08/08/16 08/08/16 08/08/16 07:00 15:00 23:00 07:00 15:00 23:00 Intake Total 680 ml 1550 ml 420 ml 800 ml Output Total 2150 ml 1525 ml 2300 ml 700 ml 1600 ml Balance -1470 ml 25 ml -1880 ml -700 ml -800 ml Intake Oral 680 ml 1200 ml 420 ml 800 ml IV Total 350 ml 0 ml Output Urine Total 2150 ml 1525 ml 2300 ml 700 ml 1600 ml # Bowel Movements 1 1 2 Result Diagram: 08/08/16 0641 08/08/16 0641 Objective Remarks This is elderly man, averagely built,W/M in no acute distress. HEENT: Head normocephalic. Pupils reactive and equal. Tongue is moist. Throat is clear. Neck: Supple. No bruits, no thyroid enlargement, no lymphadenopathy. Chest: Equal movements with increased AP diameter with occ wheezes over both lung garcia. Prolonged expirations. No crackles. Heart: The heart sounds are regular S1-S2. No murmur. Abdomen is soft, and there is a large ventral hernia with multiple scars on the abdomen The hernia is reducible. There is no organomegaly or tenderness. Bowel sounds are faint. Extremities: Reveal no definite lesions.Neuro , no deficits. Assessment and Plan Assessment and Plan IMPRESSION 1. COPD with acute exacerbation 2. Severe emphysema with chronic bronchitis 3. Large ventral hernia. 4. History of hypertension and hyperlipidemia. 5. Basal Pneumonia. Plan : 1. Cont Antibiotics. Switch to PO Ceftin 2. Nebs qid , duoneb. 3. D/C Solumedrol 4. Add Prednisone 20 mg bid. 5. Labs in am. 6. Cont Symbicort 160/4.5 mcg , 2puffs bid 7. Home anytime Rajat Michel MD Aug 08, 2016 17:59
[2016-08-08] MEDS: TAMSULOSIN HCL 0.4 MG CAP PO SCH (20:39)
[2016-08-08] MEDS: predniSONE 20 MG TAB PO SCH (20:39)
[2016-08-08] MEDS: CEFUROXIME AXETIL 500 MG TAB PO SCH (20:39)
[2016-08-09] VITALS (28 sets, daily range): BP systolic 121–144; BP diastolic 75–96; PULSE 82–140; RESP 18–20; TEMP 98.2–99.3; O2SAT 90–97
[2016-08-09 06:03] LABS: AUTOMATED NEUTROPHIL # 16.1 TH/MM3 (1.8-7.7); BASOPHIL % 0.1 % (0.0-2.0); HEMATOCRIT 25.9 % (39.0-51.0); LYMPH % 3.3 % (9.0-44.0); LYMPHOCYTE # 0.6 TH/MM3 (1.0-4.8); MEAN CELL VOLUME 93.7 FL (80.0-100.0); MEAN CORPUSCULAR HEMOGLOBIN 32.2 PG (27.0-34.0); MEAN CORPUSCULAR HGB CONC 34.4 % (32.0-36.0); MONO % 4.2 % (0.0-8.0); NEUT % 92.4 % (16.0-70.0); PLATELET COUNT 272 TH/MM3 (150-450); RED BLOOD COUNT 2.76 MIL/MM3 (4.50-5.90); RED CELL DISTRIBUTION WIDTH 14.6 % (11.6-17.2); WHITE BLOOD COUNT 17.5 TH/MM3 (4.0-11.0)
[2016-08-09 06:10] LABS: HEMO FLAGS AUTO DIFF
[2016-08-09 07:25] LABS: CORRECTED NUCLEATED RBC 1 /100 WBC (0-0); MYELOCYTES 3 % (0-0); PLATELET ESTIMATE SMEAR NORMAL (NORMAL); PLATELET MORPHOLOGY NORMAL (NORMAL); POLYS (SEG NEUTROPHILS) 93 % (16-70); PROMYELOCYTES 1 % (0-0); SCAN/DIFF FINAL DIFF MANUAL; WBC DIFF SAMPLE 100
[2016-08-09] MEDS: RESP: ALBUTEROL 2.5 MG/IPRATROPIUM 0.5 MG NEB (SCH) NEB ×4 (07:37→19:07)
[2016-08-09] MEDS: DILTIAZEM HCL 30 MG TAB PO SCH ×4 (09:04→20:41)
[2016-08-09] MEDS: predniSONE 20 MG TAB PO SCH ×2 (09:04→20:41)
[2016-08-09] MEDS: CEFUROXIME AXETIL 500 MG TAB PO SCH ×2 (09:04→20:41)
[2016-08-09] MEDS: SODIUM CHLORIDE 0.9% FLUSH 5 ML FLUSH FLUSH SCH ×2 (09:04→20:41)
[2016-08-09] MEDS: PANTOPRAZOLE SOD 40 MG DELAYED RELEASE TAB PO SCH (09:04)
[2016-08-09] MEDS: BUDESONIDE-FORMOTEROL 160/4.5 MCG INHALER INH SCH ×2 (09:04→20:42)
[2016-08-09] MEDS: ACETAMINOPHEN/HYDROcodone 325 MG/5 MG TAB PO PRN ×2 (09:11→20:41)
--- NOTE | 2016-08-09 09:28 | HHI.PR ---
Subjective Remarks resting comfortably with no distress. sob has much improved. d/w the RN and no acute issues over night. Objective Vitals Vital Signs Date Time Temp Pulse Resp B/P Pulse Ox O2 Delivery O2 Flow Rate FiO2 08/09/16 07:00 105 08/09/16 07:00 98.4 102 134/82 91 08/09/16 06:29 96 08/09/16 05:00 82 08/09/16 04:11 98.2 89 140/84 97 08/09/16 04:00 90 08/09/16 03:00 83 08/09/16 02:00 86 08/09/16 01:00 86 08/09/16 00:40 99.3 93 134/82 91 08/09/16 00:00 94 08/08/16 23:00 103 08/08/16 21:00 104 08/08/16 20:51 93 Nasal Cannula 21 08/08/16 20:00 104 08/08/16 19:00 103 08/08/16 19:00 98.5 100 145/91 97 08/08/16 18:18 105 08/08/16 17:00 105 08/08/16 16:06 109 08/08/16 15:30 99.0 104 20 127/82 97 08/08/16 15:11 103 08/08/16 14:00 108 08/08/16 13:00 108 08/08/16 12:23 98.7 105 16 147/90 94 08/08/16 12:00 100 08/08/16 11:00 98 08/08/16 10:00 92 I/O 08/08/16 08/08/16 08/08/16 08/09/16 08/09/16 08/09/16 07:00 15:00 23:00 07:00 15:00 23:00 Intake Total 420 ml 800 ml 240 ml Output Total 2300 ml 700 ml 1600 ml 2000 ml Balance -1880 ml -700 ml -800 ml -1760 ml Intake Oral 420 ml 800 ml 240 ml IV Total 0 ml Output Urine Total 2300 ml 700 ml 1600 ml 2000 ml # Bowel Movements 1 1 2 Result Diagram: 08/09/16 0512 08/08/16 0641 Imaging Last Impressions Chest X-Ray 08/05/16 0000 Signed Impressions: Service Date/Time: Friday, August 05, 2016 07:49 - CONCLUSION: 1. Interstitial fibrotic changes with bibasilar infiltrate concerning for pneumonia unchanged from previous dated 08/04/16. Reynold Olson MD Abdomen/Pelvis CT 08/04/16 0035 Signed Impressions: Service Date/Time: Thursday, August 04, 2016 01:07 - CONCLUSION: 1. Probable generalized small bowel ileus. 2. Marked bladder distention with bilateral hydronephrosis to mild degree which may be on the basis of bladder outlet traction. 3. Bibasilar edema versus pneumonia with bilateral effusions Gareth Escalante MD Lower Extremity Ultrasound 08/04/16 0000 Signed Impressions: Service Date/Time: Thursday, August 04, 2016 08:31 - CONCLUSION: 1. No evidence of deep venous thrombosis. 2. Bilateral Phillips's cysts left greater than right. Ian Horton MD Objective Remarks GENERAL: This is a well-nourished, well-developed patient, in no apparent distress. CARDIOVASCULAR: Regular rate and regular rhythm without murmurs, gallops, or rubs. RESPIRATORY: Clear to auscultation. Breath sounds equal bilaterally. No wheezes , rales, or rhonchi. GASTROINTESTINAL: Abdomen soft, non-tender, nondistended. Normal, active bowel sounds MUSCULOSKELETAL: Extremities without clubbing, cyanosis, or edema. NEURO: Alert & Oriented x4 to person, place, time, situation. Moves all ext x4 Procedures none Medications and IVs Current Medications IV Flush (NS Flush) 2 ml UNSCH PRN IVF FLUSH AFTER USING IV ACCESS; Start 08/04 at 00:45; Stop 08/04/16 at 02:40; Status DC Albuterol/ Ipratropium (Duoneb Neb) 1 ampule ONCE ONCE INH Last administered on 08/04/16 00:49; Start 08/04/16 at 00:45; Stop 08/04/16 at 00:46; Status DC Morphine Sulfate (Morphine Inj) 4 mg ONCE ONCE IV PUSH Last administered on 01:00; Start 08/04/16 at 00:45; Stop 08/04/16 at 00:46; Status DC Ondansetron HCl 4 mg 4 mg ONCE ONCE IVP Last administered on 08/04/16 00:59; Start 08/04/16 at 00:45; Stop 08/04/16 at 00:46; Status DC Sodium Chloride (NS 1000 ml Inj) 1,000 ml @ 125 mls/hr Q8H IV Last administered on 08/04/16 00:59; Start 08/04/16 at 00:35; Stop 08/04/16 at 02:33 ; Status DC IV Flush 2 ml 2 ml UNSCH PRN IVF FLUSH AFTER USING IV ACCESS; Start 08/04/16 at 00:45; Stop 08/04/16 at 02:40; Status DC Cefepime HCl 2000 mg/Sodium Chloride 100 ml @ 200 mls/hr ONCE ONCE IV Last administered on 08/04/16 03:21; Start 08/04/16 at 02:15; Stop 08/04/16 at 02:44 ; Status DC Azithromycin/ Sodium Chloride (Zithromax Inj/ NS 250 ml Inj) 250 ml @ 250 mls/ hr ONCE ONCE IV Last administered on 08/04/16 04:18; Start 08/04/16 at 02:15 ; Stop 08/04/16 at 03:14; Status DC IV Flush (NS Flush) 2 ml UNSCH PRN FLUSH FLUSH AFTER USING IV ACCESS; Start at 02:45 IV Flush (NS Flush) 2 ml BID FLUSH Last administered on 08/09/16 09:04; Start 08/04/16 at 09:00 Heparin Sodium (Porcine) (Heparin Inj) 5,000 units Q8H SQ ; Start 08/04/16 at 06 :00; Stop 08/04/16 at 06:00; Status DC Naloxone HCl (Narcan Inj) 0.4 mg UNSCH PRN IV SEE LABEL COMMENTS; Start at 02:45 Levofloxacin (Levaquin) 750 mg ONCE ONCE PO Last administered on 08/04/16 05: 56; Start 08/04/16 at 05:45; Stop 08/04/16 at 05:46; Status DC Albuterol/ Ipratropium (Duoneb Neb) 1 ampule Q2HR NEB PRN NEB wheezing; Start 08/04/16 at 06:00; Stop 08/04/16 at 17:00; Status DC Albuterol/ Ipratropium (Duoneb Neb) 1 ampule Q6HR NEB NEB ; Start 08/04/16 at 10:00; Stop 08/04/16 at 17:00; Status DC Tiotropium [place] (Spiriva Inh) 18 mcg DAILY INH ; Start 08/04/16 at 09:00; Stop 08/04/16 at 10:20; Status DC Budesonide/ Formoterol Fumarate (Symbicort 160-4.5 Inh) 2 puff BID INH ; Start 08/04/16 at 09:30; Stop 08/04/16 at 10:20; Status DC Cyclobenzaprine HCl (Flexeril) 5 mg HS PO ; Start 08/04/16 at 21:00; Stop at 21:00; Status DC Diltiazem HCl 120 mg 120 mg DAILY PO ; Start 08/04/16 at 09:30; Stop 08/04/16 at 10:20; Status DC Ceftriaxone Sodium/Sodium Chloride (Rocephin Inj/NS Inj) 100 ml @ 200 mls/hr Q24H IV Last administered on 08/08/16 09:38; Start 08/05/16 at 10:00; Stop at 18:00; Status DC Acetaminophen (Tylenol) 650 mg Q4H PRN PO FEVER/ PAIN < 5; Start 08/04/16 at 09 :00 Acetaminophen/ Hydrocodone Bitart ([place] 5-325 Mg) 1 tab Q6H PRN PO PAIN > 5 Last administered on 08/09/16 09:11; Start 08/04/16 at 09:00 Miscellaneous (Pill Splitter) 1 ea UNSCH PRN OTHER SEE LABEL COMMENTS; Start at 09:30 Amlodipine Besylate (Norvasc) 10 mg DAILY PO Last administered on 08/05/16 10: 32; Start 08/05/16 at 09:00; Status Hold Pantoprazole Sodium (Protonix) 40 mg DAILY PO Last administered on 08/09/16 09 :04; Start 08/05/16 at 09:00 Tamsulosin HCl (Flomax) 0.4 mg HS PO Last administered on 08/08/16 20:39; Start 08/04/16 at 21:00 Budesonide/ Formoterol Fumarate (Symbicort 160-4.5 Inh) 2 puff BID INH Last administered on 08/09/16 09:04; Start 08/04/16 at 21:00 Albuterol/ Ipratropium (Duoneb Neb) 1 ampule Q6HR NEB PRN NEB SHORTNESS OF BREATH Last administered on 08/05/16 17:05; Start 08/04/16 at 17:15; Stop 08/08 at 17:15; Status DC Al Hydrox/Mg Hydrox/Simethicone (Mag-Al Plus Susp Liq) 30 ml Q6H PRN PO INDIGESTION Last administered on 08/05/16 12:55; Start 08/04/16 at 17:45 Hydromorphone HCl (Dilaudid Pf Inj) 0.5 mg Q4H PRN IV PUSH BREAKTHROUGH PAIN Last administered on 08/05/16 20:49; Start 08/04/16 at 17:45 Ondansetron HCl (Zofran Inj) 4 mg Q8HR PRN IV PUSH NAUSEA Last administered on 08/05/16 12:53; Start 08/04/16 at 18:15 Potassium Chloride (KCl) 30 meq ONCE ONCE PO Last administered on 08/05/16 09 :05; Start 08/05/16 at 07:45; Stop 08/05/16 at 07:46; Status DC Promethazine HCl 12.5 mg 12.5 mg Q6H PRN IM NAUSEA Last administered on 08:10; Start 08/05/16 at 07:45 Azithromycin/ Sodium Chloride (Zithromax Inj/ NS 250 ml Inj) 250 ml @ 250 mls/ hr Q24H IV Last administered on 08/07/16 14:00; Start 08/05/16 at 14:00; Stop 08/07/16 at 20:31; Status DC Calcium Carbonate (Tums Chew) 500 mg Q6H PRN CHEW DYSPEPSIA Last administered on 08/08/16 17:07; Start 08/05/16 at 13:30 Diltiazem HCl (Cardizem) 30 mg QID PO Last administered on 08/09/16 09:04; Start 08/05/16 at 14:15 Albuterol/ Ipratropium (Duoneb Neb) 1 ampule QID NEB NEB Last administered on 08/09/16 07:37; Start 08/05/16 at 20:00 Metoprolol Tartrate (Lopressor Inj) 5 mg ONCE ONCE IV PUSH Last administered on 08/05/16 23:45; Start 08/05/16 at 23:45; Stop 08/05/16 at 23:46; Status DC Potassium Chloride (KCl) 30 meq ONCE ONCE PO Last administered on 08/06/16 12 :56; Start 08/06/16 at 11:00; Stop 08/06/16 at 11:01; Status DC Methylprednisolone Sodium Succinate (SoluMEDROL INJ) 40 mg Q8H IV Last administered on 08/07/16 11:17; Start 08/06/16 at 20:00; Stop 08/07/16 at 20:31 ; Status DC Potassium Chloride (KCl) 40 meq ONCE ONCE PO Last administered on 08/07/16 10 :30; Start 08/07/16 at 10:30; Stop 08/07/16 at 10:34; Status DC Potassium Chloride (KCl) 30 meq ONCE ONCE PO Last administered on 08/07/16 15 :04; Start 08/07/16 at 14:00; Stop 08/07/16 at 14:01; Status DC Methylprednisolone Sodium Succinate (SoluMEDROL INJ) 40 mg BID IV Last administered on 08/08/16 09:39; Start 08/08/16 at 09:00; Stop 08/08/16 at 10:32 ; Status DC Methylprednisolone Sodium Succinate (SoluMEDROL INJ) 20 mg BID IV ; Start at 21:00; Stop 08/08/16 at 21:00; Status DC Cefuroxime Axetil (Ceftin) 500 mg Q12HR PO Last administered on 08/09/16 09:04 ; Start 08/08/16 at 21:00 Prednisone (Deltasone) 20 mg BID PO Last administered on 08/09/16 09:04; Start 08/08/16 at 21:00 A/P Assessment and Plan A/P Bilateral hydronephrosis with Obstructive uropathywith bladder of the obstruction with History of prostate cancerstatus post radiation therapy s/p menendez cath insertion- urology consult appreciated; will discharge with menendez cath in place- f/u as outpatient and this was d/w the patient. Acute renal failure- s/p menendez cath placement- resolved- acute on chronic respiratory failure due to pneumonia- improving slowly. continue with antibiotics- neb treatment- oxygen as needed to keep O2 sat > 90% - switched to po prednisone. blood cultures negative.pulmonary following. of note the patient is on home oxygen. tachycardia due to pneumonia/ respiratory failure- improved- continue cardizem echo with EF 55%- Bilateral pitting edema venous doppler negative for DVT- will monitor Hematurialikely due to traumatic Menendez, compounded by bladder mucosa irritation from distention urology consulted as noted above. anemia- with reported melena and gradual drop in H/H- r/o GI bleed- will monitor H/H for now- stool for blood and iron studies.consulted GI and plan for EGD tomorrow. Leukocytosis due to infection/ steroids-improving- follow the blood cultures- continue antibiotics . Hyponatremia; due to renal failure-improved- will monitor hypokalemia; replaced. History of hypertension; continue cardizem History of COPD; resumed home meds Discharge Planning possible dc home tomorrow if EGD negative. John Arana MD Aug 09, 2016 09:28
[2016-08-09] MEDS: HYDROmorphone HCL PF 1 MG/ML VIAL IV PUSH PRN (12:54)
--- NOTE | 2016-08-09 14:07 | HHI.PR ---
Subjective Remarks Less cough and no wheezing. Feels better overall. has trouble with [place]. Denies Chest pain. Objective Vital Signs Date Time Temp Pulse Resp B/P Pulse Ox O2 Delivery O2 Flow Rate FiO2 08/09/16 13:41 18 08/09/16 11:18 16 08/09/16 10:12 93 Nasal Cannula 3.00 08/09/16 07:00 105 08/09/16 07:00 98.4 102 134/82 91 08/09/16 06:29 96 08/09/16 05:00 82 08/09/16 04:11 98.2 89 140/84 97 08/09/16 04:00 90 08/09/16 03:00 83 08/09/16 02:00 86 08/09/16 01:00 86 08/09/16 00:40 99.3 93 134/82 91 08/09/16 00:00 94 08/08/16 23:00 103 08/08/16 21:00 104 08/08/16 20:51 93 Nasal Cannula 21 08/08/16 20:00 104 08/08/16 19:00 103 08/08/16 19:00 98.5 100 145/91 97 08/08/16 18:18 105 08/08/16 17:00 105 08/08/16 16:06 109 08/08/16 15:30 99.0 104 20 127/82 97 08/08/16 15:11 103 I/O 08/08/16 08/08/16 08/08/16 08/09/16 08/09/16 08/09/16 07:00 15:00 23:00 07:00 15:00 23:00 Intake Total 420 ml 800 ml 240 ml Output Total 2300 ml 700 ml 1600 ml 2000 ml Balance -1880 ml -700 ml -800 ml -1760 ml Intake Oral 420 ml 800 ml 240 ml IV Total 0 ml Output Urine Total 2300 ml 700 ml 1600 ml 2000 ml # Bowel Movements 1 1 2 Result Diagram: 08/09/16 0512 08/08/16 0641 Objective Remarks This is elderly man, averagely built,W/M in no acute distress. HEENT: Head normocephalic. Pupils reactive and equal. Tongue is moist. Throat is clear. Neck: Supple. No bruits, no thyroid enlargement, no lymphadenopathy. Chest: Equal movements with increased AP diameter with occ wheezes over both lung garcia. Prolonged expirations. No crackles. Heart: The heart sounds are regular S1-S2. No murmur. Abdomen is soft, and there is a large ventral hernia with multiple scars on the abdomen The hernia is reducible. There is no organomegaly or tenderness. Bowel sounds are faint. Extremities: Reveal no definite lesions.Neuro , no deficits. Assessment and Plan Assessment and Plan IMPRESSION 1. COPD with acute exacerbation 2. Severe emphysema with chronic bronchitis 3. Large ventral hernia. 4. History of hypertension and hyperlipidemia. 5. Basal Pneumonia. Plan : 1. Cont Antibiotics. PO Ceftin 500 mg bid X 7 days 2. Nebs qid , duoneb. 3. Home in am 4. Prednisone 20 mg bid.and taper over 2 weeks 5. EGD per GI 6. Cont Symbicort 160/4.5 mcg , 2puffs bid 7. Will F/U as OP in 2 weeks. Rajat Michel MD Aug 09, 2016 14:07
[2016-08-09] MEDS: CALCIUM CARBONATE 500 MG CHEWABLE TAB CHEW PRN (14:08)
[2016-08-09] MEDS: ALUMINUM/MAGNESIUM/SIMETH 30 ML CUP PO PRN (17:18)
[2016-08-09] MEDS: TAMSULOSIN HCL 0.4 MG CAP PO SCH (20:41)
[2016-08-10] VITALS (22 sets, daily range): BP systolic 124–142; BP diastolic 74–90; PULSE 84–122; RESP 16–24; TEMP 97.8–98.5; O2SAT 90–98
--- NOTE | 2016-08-10 07:52 | HHI.PR ---
Subjective Remarks resting comfortably with no distress. no fever. awaiting endoscopy. d/w the RN. Objective Vitals Vital Signs Date Time Temp Pulse Resp B/P Pulse Ox O2 Delivery O2 Flow Rate FiO2 08/10/16 06:00 90 08/10/16 05:00 88 08/10/16 04:42 98.2 84 131/84 92 08/10/16 04:00 88 08/10/16 03:00 94 08/10/16 02:00 94 08/10/16 01:00 102 08/09/16 23:00 101 08/09/16 23:00 98.3 90 121/75 95 08/09/16 22:00 102 08/09/16 21:00 104 08/09/16 20:00 118 08/09/16 19:00 103 08/09/16 19:00 98.5 100 18 144/96 93 08/09/16 18:00 122 08/09/16 17:00 140 08/09/16 16:00 108 08/09/16 15:39 90 21 08/09/16 15:00 98.3 94 20 136/89 92 08/09/16 15:00 102 08/09/16 14:00 111 08/09/16 13:41 18 08/09/16 13:00 126 08/09/16 12:00 110 08/09/16 11:18 16 08/09/16 11:00 106 08/09/16 11:00 98.2 108 20 140/81 92 08/09/16 10:12 93 Nasal Cannula 3.00 08/09/16 10:00 106 08/09/16 09:00 106 08/09/16 08:00 108 I/O 08/09/16 08/09/16 08/09/16 08/10/16 08/10/16 08/10/16 07:00 15:00 23:00 07:00 15:00 23:00 Intake Total 240 ml 1080 ml 240 ml Output Total 2000 ml 4050 ml 750 ml Balance -1760 ml -2970 ml -510 ml Intake Oral 240 ml 1080 ml 240 ml IV Total 0 ml Output Urine Total 2000 ml 4050 ml 750 ml # Bowel Movements 1 Result Diagram: 08/09/16 0512 08/08/16 0641 Imaging Last Impressions Chest X-Ray 08/05/16 0000 Signed Impressions: Service Date/Time: Friday, August 05, 2016 07:49 - CONCLUSION: 1. Interstitial fibrotic changes with bibasilar infiltrate concerning for pneumonia unchanged from previous dated 08/04/16. Reynold Olson MD Abdomen/Pelvis CT 08/04/16 0035 Signed Impressions: Service Date/Time: Thursday, August 04, 2016 01:07 - CONCLUSION: 1. Probable generalized small bowel ileus. 2. Marked bladder distention with bilateral hydronephrosis to mild degree which may be on the basis of bladder outlet traction. 3. Bibasilar edema versus pneumonia with bilateral effusions Gareth Escalante MD Lower Extremity Ultrasound 08/04/16 0000 Signed Impressions: Service Date/Time: Thursday, August 04, 2016 08:31 - CONCLUSION: 1. No evidence of deep venous thrombosis. 2. Bilateral Phillips's cysts left greater than right. Ian Horton MD Objective Remarks GENERAL: This is a well-nourished, well-developed patient, in no apparent distress. CARDIOVASCULAR: Regular rate and regular rhythm without murmurs, gallops, or rubs. RESPIRATORY: Clear to auscultation. Breath sounds equal bilaterally. No wheezes , rales, or rhonchi. GASTROINTESTINAL: Abdomen soft, non-tender, nondistended. Normal, active bowel sounds MUSCULOSKELETAL: Extremities without clubbing, cyanosis, or edema. NEURO: Alert & Oriented x4 to person, place, time, situation. Moves all ext x4 Procedures none Medications and IVs Current Medications IV Flush (NS Flush) 2 ml UNSCH PRN IVF FLUSH AFTER USING IV ACCESS; Start 08/04 at 00:45; Stop 08/04/16 at 02:40; Status DC Albuterol/ Ipratropium (Duoneb Neb) 1 ampule ONCE ONCE INH Last administered on 08/04/16 00:49; Start 08/04/16 at 00:45; Stop 08/04/16 at 00:46; Status DC Morphine Sulfate (Morphine Inj) 4 mg ONCE ONCE IV PUSH Last administered on 01:00; Start 08/04/16 at 00:45; Stop 08/04/16 at 00:46; Status DC Ondansetron HCl 4 mg 4 mg ONCE ONCE IVP Last administered on 08/04/16 00:59; Start 08/04/16 at 00:45; Stop 08/04/16 at 00:46; Status DC Sodium Chloride (NS 1000 ml Inj) 1,000 ml @ 125 mls/hr Q8H IV Last administered on 08/04/16 00:59; Start 08/04/16 at 00:35; Stop 08/04/16 at 02:33 ; Status DC IV Flush 2 ml 2 ml UNSCH PRN IVF FLUSH AFTER USING IV ACCESS; Start 08/04/16 at 00:45; Stop 08/04/16 at 02:40; Status DC Cefepime HCl 2000 mg/Sodium Chloride 100 ml @ 200 mls/hr ONCE ONCE IV Last administered on 08/04/16 03:21; Start 08/04/16 at 02:15; Stop 08/04/16 at 02:44 ; Status DC Azithromycin/ Sodium Chloride (Zithromax Inj/ NS 250 ml Inj) 250 ml @ 250 mls/ hr ONCE ONCE IV Last administered on 08/04/16 04:18; Start 08/04/16 at 02:15 ; Stop 08/04/16 at 03:14; Status DC IV Flush (NS Flush) 2 ml UNSCH PRN FLUSH FLUSH AFTER USING IV ACCESS; Start at 02:45 IV Flush (NS Flush) 2 ml BID FLUSH Last administered on 08/09/16 20:41; Start 08/04/16 at 09:00 Heparin Sodium (Porcine) (Heparin Inj) 5,000 units Q8H SQ ; Start 08/04/16 at 06 :00; Stop 08/04/16 at 06:00; Status DC Naloxone HCl (Narcan Inj) 0.4 mg UNSCH PRN IV SEE LABEL COMMENTS; Start at 02:45 Levofloxacin (Levaquin) 750 mg ONCE ONCE PO Last administered on 08/04/16 05: 56; Start 08/04/16 at 05:45; Stop 08/04/16 at 05:46; Status DC Albuterol/ Ipratropium (Duoneb Neb) 1 ampule Q2HR NEB PRN NEB wheezing; Start 08/04/16 at 06:00; Stop 08/04/16 at 17:00; Status DC Albuterol/ Ipratropium (Duoneb Neb) 1 ampule Q6HR NEB NEB ; Start 08/04/16 at 10:00; Stop 08/04/16 at 17:00; Status DC Tiotropium [place] (Spiriva Inh) 18 mcg DAILY INH ; Start 08/04/16 at 09:00; Stop 08/04/16 at 10:20; Status DC Budesonide/ Formoterol Fumarate (Symbicort 160-4.5 Inh) 2 puff BID INH ; Start 08/04/16 at 09:30; Stop 08/04/16 at 10:20; Status DC Cyclobenzaprine HCl (Flexeril) 5 mg HS PO ; Start 08/04/16 at 21:00; Stop at 21:00; Status DC Diltiazem HCl 120 mg 120 mg DAILY PO ; Start 08/04/16 at 09:30; Stop 08/04/16 at 10:20; Status DC Ceftriaxone Sodium/Sodium Chloride (Rocephin Inj/NS Inj) 100 ml @ 200 mls/hr Q24H IV Last administered on 08/08/16 09:38; Start 08/05/16 at 10:00; Stop at 18:00; Status DC Acetaminophen (Tylenol) 650 mg Q4H PRN PO FEVER/ PAIN < 5; Start 08/04/16 at 09 :00 Acetaminophen/ Hydrocodone Bitart ([place] 5-325 Mg) 1 tab Q6H PRN PO PAIN > 5 Last administered on 08/09/16 20:41; Start 08/04/16 at 09:00 Miscellaneous (Pill Splitter) 1 ea UNSCH PRN OTHER SEE LABEL COMMENTS; Start at 09:30 Amlodipine Besylate (Norvasc) 10 mg DAILY PO Last administered on 08/05/16 10: 32; Start 08/05/16 at 09:00; Status Hold Pantoprazole Sodium (Protonix) 40 mg DAILY PO Last administered on 08/09/16 09 :04; Start 08/05/16 at 09:00 Tamsulosin HCl (Flomax) 0.4 mg HS PO Last administered on 08/09/16 20:41; Start 08/04/16 at 21:00 Budesonide/ Formoterol Fumarate (Symbicort 160-4.5 Inh) 2 puff BID INH Last administered on 08/09/16 20:42; Start 08/04/16 at 21:00 Albuterol/ Ipratropium (Duoneb Neb) 1 ampule Q6HR NEB PRN NEB SHORTNESS OF BREATH Last administered on 08/05/16 17:05; Start 08/04/16 at 17:15; Stop 08/08 at 17:15; Status DC Al Hydrox/Mg Hydrox/Simethicone (Mag-Al Plus Susp Liq) 30 ml Q6H PRN PO INDIGESTION Last administered on 08/09/16 17:18; Start 08/04/16 at 17:45 Hydromorphone HCl (Dilaudid Pf Inj) 0.5 mg Q4H PRN IV PUSH BREAKTHROUGH PAIN Last administered on 08/09/16 12:54; Start 08/04/16 at 17:45 Ondansetron HCl (Zofran Inj) 4 mg Q8HR PRN IV PUSH NAUSEA Last administered on 08/05/16 12:53; Start 08/04/16 at 18:15 Potassium Chloride (KCl) 30 meq ONCE ONCE PO Last administered on 08/05/16 09 :05; Start 08/05/16 at 07:45; Stop 08/05/16 at 07:46; Status DC Promethazine HCl 12.5 mg 12.5 mg Q6H PRN IM NAUSEA Last administered on 08:10; Start 08/05/16 at 07:45 Azithromycin/ Sodium Chloride (Zithromax Inj/ NS 250 ml Inj) 250 ml @ 250 mls/ hr Q24H IV Last administered on 08/07/16 14:00; Start 08/05/16 at 14:00; Stop 08/07/16 at 20:31; Status DC Calcium Carbonate (Tums Chew) 500 mg Q6H PRN CHEW DYSPEPSIA Last administered on 08/09/16 14:08; Start 08/05/16 at 13:30 Diltiazem HCl (Cardizem) 30 mg QID PO Last administered on 08/09/16 20:41; Start 08/05/16 at 14:15 Albuterol/ Ipratropium (Duoneb Neb) 1 ampule QID NEB NEB Last administered on 08/09/16 19:07; Start 08/05/16 at 20:00; Stop 08/09/16 at 20:00; Status DC Metoprolol Tartrate (Lopressor Inj) 5 mg ONCE ONCE IV PUSH Last administered on 08/05/16 23:45; Start 08/05/16 at 23:45; Stop 08/05/16 at 23:46; Status DC Potassium Chloride (KCl) 30 meq ONCE ONCE PO Last administered on 08/06/16 12 :56; Start 08/06/16 at 11:00; Stop 08/06/16 at 11:01; Status DC Methylprednisolone Sodium Succinate (SoluMEDROL INJ) 40 mg Q8H IV Last administered on 08/07/16 11:17; Start 08/06/16 at 20:00; Stop 08/07/16 at 20:31 ; Status DC Potassium Chloride (KCl) 40 meq ONCE ONCE PO Last administered on 08/07/16 10 :30; Start 08/07/16 at 10:30; Stop 08/07/16 at 10:34; Status DC Potassium Chloride (KCl) 30 meq ONCE ONCE PO Last administered on 08/07/16 15 :04; Start 08/07/16 at 14:00; Stop 08/07/16 at 14:01; Status DC Methylprednisolone Sodium Succinate (SoluMEDROL INJ) 40 mg BID IV Last administered on 08/08/16 09:39; Start 08/08/16 at 09:00; Stop 08/08/16 at 10:32 ; Status DC Methylprednisolone Sodium Succinate (SoluMEDROL INJ) 20 mg BID IV ; Start at 21:00; Stop 08/08/16 at 21:00; Status DC Cefuroxime Axetil (Ceftin) 500 mg Q12HR PO Last administered on 08/09/16 20:41 ; Start 08/08/16 at 21:00 Prednisone (Deltasone) 20 mg BID PO Last administered on 08/09/16 20:41; Start 08/08/16 at 21:00 A/P Assessment and Plan A/P Bilateral hydronephrosis with Obstructive uropathywith bladder of the obstruction with History of prostate cancerstatus post radiation therapy s/p menendez cath insertion- urology consult appreciated; will discharge with menendez cath in place- f/u as outpatient and this was d/w the patient. Acute renal failure- s/p menendez cath placement- resolved- acute on chronic respiratory failure due to pneumonia- improving slowly. continue with antibiotics- neb treatment- oxygen as needed to keep O2 sat > 90% - switched to po prednisone. blood cultures negative.pulmonary follow-up appreciated and cleared for discharge. of note the patient is on home oxygen. tachycardia due to pneumonia/ respiratory failure- improved- continue cardizem echo with EF 55%- Bilateral pitting edema venous doppler negative for DVT- will monitor Hematurialikely due to traumatic Menendez, compounded by bladder mucosa irritation from distention urology consulted as noted above. anemia- with reported melena and gradual drop in H/H- - stool for blood negative .consulted GI and plan for EGD today. Leukocytosis due to infection/ steroids-improving-- continue antibiotics . Hyponatremia; due to renal failure-improved- will monitor hypokalemia; replaced. History of hypertension; continue cardizem History of COPD; resumed home meds Discharge Planning possible dc home later today and after EGD. see med list. f/u; pcp, GI,urology and pulmonary. case management for [facility]. time spent 31 min. John Arana MD Aug 10, 2016 07:52
[2016-08-10] MEDS ORDERED: CARD120C4 PO (07:56)
[2016-08-10] MEDS ORDERED: CEFT500T3 PO (07:56)
[2016-08-10] MEDS ORDERED: SYMB160A INH (07:56)
[2016-08-10] MEDS ORDERED: PRED5TAB PO (07:56)
--- NOTE | 2016-08-10 07:57 | HHI.DCPOC ---
Discharge Care Plan Diagnosis: (1) COPD (chronic obstructive pulmonary disease) (2) Bladder outflow obstruction Your Health Problems Are: Urinary Difficulties Cough Shortness of Breath Goals to Promote Your Health * To prevent worsening of your condition and complications * To maintain your health at the optimal level Directions to Meet Your Goals Take your medications as prescribed Follow your dietary instruction Follow activity as directed Keep your appointments as scheduled Take your immunizations and boosters as scheduled If your symptoms worsen call your PCP, if no PCP go to Urgent Care Center or Emergency Room Smoking is Dangerous to Your Health. Avoid second hand smoke Call the 24-hour hour crisis hotline for domestic abuse at John Arana MD Aug 10, 2016 07:57
--- NOTE | 2016-08-10 07:58 | HHI.DS ---
Discharge Summary Admission Date Aug 04, 2016 at 02:29 Discharge Date: Aug 10, 2016 Admitting Diagnosis Acute Renal Failure, Bladder outlet obstruction, hyponatremia, copd (1) Bladder outflow obstruction ICD Code: N32.0 Diagnosis: Principal (2) Renal failure ICD Code: N19 Diagnosis: Principal (3) COPD exacerbation ICD Code: J44.1 Diagnosis: Principal Procedures EGD Brief History - From Admission History from patient, ER physician communication, and review of medical records. Patient reported that he came to the hospital because he has been having pain in his abdomen. He also reports of pain in his flank bilaterally. Reports of ventral hernia for which she was seen general surgeon for repair. Reports that the surgeon was not able to go ahead with the surgery because he was noted to have renal failure on his outpatient lab tests. He reports he has had some workup done for this renal failure for past 2 weeks as an outpatient. But he is not sure exactly what kind of workup. He denies any burning or pain on urination. However reports of difficulty urinating for the past few days. He stated that he is going to the bathroom every hour and was urinating a little bit each time. Denies blood in his urine at home. Denies any nausea or vomiting. Stated it only started in the hospital today. Denies diarrhea. Reports of constipation for the past 2 or 3 days. Denies fever. The emergency room, and patient's workup revealed acute on chronic renal failure. Imaging studies further revealed distended bladder with bilateral hydronephrosis suggestive of bladder outlet obstruction. Menendez catheter was placed in ER. There was some trouble dizziness and coud catheter was required. Patient has subsequent hematuria in the Menendez bag. Patient also reports of history of prostate cancer for which he had radiation therapy about 9 years ago. Post Menendez catheter placement, patient diuresed about 2 L. CBC/BMP: 08/09/16 0512 08/08/16 0641 Significant Findings Laboratory Tests Test 08/08/16 08/09/16 06:41 05:12 White Blood Count 19.4 TH/MM3 17.5 TH/MM3 (4.0-11.0) (4.0-11.0) Red Blood Count 2.57 MIL/MM3 2.76 MIL/MM3 (4.50-5.90) (4.50-5.90) Hemoglobin 8.2 GM/DL 8.9 GM/DL (13.0-17.0) (13.0-17.0) Hematocrit 24.2 % 25.9 % (39.0-51.0) (39.0-51.0) Neutrophils (%) (Auto) 91.3 % 92.4 % (16.0-70.0) (16.0-70.0) Lymphocytes (%) (Auto) 4.4 % 3.3 % (9.0-44.0) (9.0-44.0) Neutrophils # (Auto) 17.7 TH/MM3 16.1 TH/MM3 (1.8-7.7) (1.8-7.7) Lymphocytes # (Auto) 0.8 TH/MM3 0.6 TH/MM3 (1.0-4.8) (1.0-4.8) Neutrophils % (Manual) 83 % (16-70) 93 % (16-70) Lymphocytes % 2 % (9-44) 1 % (9-44) Neutrophils # (Manual) 17.5 TH/MM3 17.0 TH/MM3 (1.8-7.7) (1.8-7.7) Myelocytes 4 % (0-0) 3 % (0-0) Nucleated Red Blood Cells 1 /100 WBC 1 /100 WBC (0-0) (0-0) Sodium Level 133 MEQ/L (136-145) Chloride Level 93 MEQ/L (98-107) Carbon Dioxide Level 33.3 MEQ/L (21.0-32.0) Estimat Glomerular Filtration 80 ML/MIN (>89) Rate Random Glucose 137 MG/DL (74-106) Iron Level 62 MCG/DL (65-175) Total Iron Binding Capacity 220 MCG/DL (250-450) Ferritin 627 NG/ML (26-388) Promyelocytes 1 % (0-0) Imaging Last Impressions Chest X-Ray 08/05/16 0000 Signed Impressions: Service Date/Time: Friday, August 05, 2016 07:49 - CONCLUSION: 1. Interstitial fibrotic changes with bibasilar infiltrate concerning for pneumonia unchanged from previous dated 08/04/16. Reynold Olson MD Abdomen/Pelvis CT 08/04/16 0035 Signed Impressions: Service Date/Time: Thursday, August 04, 2016 01:07 - CONCLUSION: 1. Probable generalized small bowel ileus. 2. Marked bladder distention with bilateral hydronephrosis to mild degree which may be on the basis of bladder outlet traction. 3. Bibasilar edema versus pneumonia with bilateral effusions Gareth Escalante MD Lower Extremity Ultrasound 08/04/16 0000 Signed Impressions: Service Date/Time: Thursday, August 04, 2016 08:31 - CONCLUSION: 1. No evidence of deep venous thrombosis. 2. Bilateral Phillips's cysts left greater than right. Ian Horton MD PE at Discharge GENERAL: This is a well-nourished, well-developed patient, in no apparent distress. CARDIOVASCULAR: Regular rate and regular rhythm without murmurs, gallops, or rubs. RESPIRATORY: Clear to auscultation. Breath sounds equal bilaterally. No wheezes , rales, or rhonchi. GASTROINTESTINAL: Abdomen soft, non-tender, nondistended. Normal, active bowel sounds MUSCULOSKELETAL: Extremities without clubbing, cyanosis, or edema. NEURO: Alert & Oriented x4 to person, place, time, situation. Moves all ext x4 Hospital Course Bilateral hydronephrosis with Obstructive uropathywith bladder of the obstruction with History of prostate cancerstatus post radiation therapy s/p menendez cath insertion- urology consult appreciated; will discharge with menendez cath in place- f/u as outpatient and this was d/w the patient. Acute renal failure- s/p menendez cath placement- resolved- acute on chronic respiratory failure due to pneumonia- improving slowly. continue with antibiotics- neb treatment- oxygen as needed to keep O2 sat > 90% - switched to po prednisone. blood cultures negative.pulmonary follow-up appreciated and cleared for discharge. of note the patient is on home oxygen. tachycardia due to pneumonia/ respiratory failure- improved- continue cardizem echo with EF 55%- Bilateral pitting edema venous doppler negative for DVT- will monitor Hematurialikely due to traumatic Menendez, compounded by bladder mucosa irritation from distention urology consulted as noted above. anemia- with reported melena and gradual drop in H/H- - stool for blood negative .consulted GI and plan for EGD today. Leukocytosis due to infection/ steroids-improving-- continue antibiotics . Hyponatremia; due to renal failure-improved- will monitor hypokalemia; replaced. History of hypertension; continue cardizem History of COPD; resumed home meds Pt Condition on Discharge: Fair Discharge Disposition: Disch w/ Home Health Serv Discharge Time: > 30 minutes Discharge Instructions DIET: Follow Instructions for: Heart Healthy Diet Activities you can perform: Regular-No Restrictions Follow up Referrals: Gastroenterology PCP Follow-up Pulmonology Urology New Medications: Diltiazem CD 24 HR (Cardizem CD 24 HR) 120 Mg Caper 120 MG PO DAILY hypertension #30 Ref 0 CAP Prednisone (Prednisone) 5 Mg Tab 5 MG PO DIRECTED 30 mg po daily for two days then 20 mg po daily for two days then 10 mg po daily for two days then 5 mg po daily for two days then stop. copd Days 8 Ref 0 TAB Budesonide-Formoterol Inh (Symbicort Inh) 160-4.5 Mcg/Act Aero 2 PUFF INH BID copd #1 Ref 0 INHALER Cefuroxime (Ceftin) 500 Mg Tab 500 MG PO Q12HR infection Days 5 Ref 0 TAB Continued Medications: Hydrocodone-Acetaminophen (Pavo) 10-325 Mg Tab 1-2 TAB PO Q4H PRN PAIN Ref 0 TAB Ipratropium-Albuterol Inh (Combivent Respimat Inh) 20-100 Prison/Act Aero 1 PUFF INH Q4HR PRN SHORTNESS OF BREATH #1 Ref 0 INHALER Ipratropium-Albuterol Neb (Duoneb) 0.5-2.5 Mg/3 Ml Neb 1 VIAL NEB QID PRN SHORTNESS OF BREATH #30 Ref 0 NEBULE Multiple Vitamin (Multi Vitamin) 1 Tab Tab 1 TAB PO DAILY TAB Pantoprazole (Protonix) 40 Mg Tab 40 MG PO DAILY Reflux #30 Ref 0 TAB Tamsulosin (Flomax) 0.4 Mg Cap 0.4 MG PO HS Manage Prostate Problems #30 Ref 0 CAP Trazodone (Trazodone) 50 Mg Tab 50-100 MG PO HS Control Depression #30 Ref 0 TAB Discontinued Medications: Amlodipine (Norvasc) 10 Mg Tab 10 MG PO DAILY Blood Pressure Management #30 Ref 0 TAB Fluticasone 12 GM Inh (Flovent Hfa 12 GM Inh) 220 Mcg/Act Inh 1 PUFF INH BID Use daily at the same time. Asthma Management #1 Ref 0 INHALER Fluticasone-Salmeterol Inh (Advair Diskus Inh) 250-50 Mcg/Blist Aer 1 PUFF INH BID Rinse mouth after use. #1 Ref 0 INHALER Furosemide (Lasix) 20 Mg Tab 20 MG PO DAILY #30 Ref 0 TAB Potassium Chloride ER (Potassium Chloride ER) 20 Meq Tab 20 MEQ PO DAILY Electrolyte Replacement #30 Ref 0 TAB John Arana MD Aug 10, 2016 07:58
[2016-08-10] MEDS ORDERED: PROPOFOL 200 MG/20 ML AMP IV ONE (08:23)
--- NOTE | 2016-08-10 09:10 | HHI.GIFU ---
Subjective Remarks feels ok, no new complains, no sign of bleed. Objective Vitals I&O Vital Signs Date Time Temp Pulse Resp B/P Pulse Ox O2 Delivery O2 Flow Rate FiO2 08/10/16 07:50 98.0 100 24 142/90 90 08/10/16 06:00 90 08/10/16 05:00 88 08/10/16 04:42 98.2 84 131/84 92 08/10/16 04:00 88 08/10/16 03:00 94 08/10/16 02:00 94 08/10/16 01:00 102 08/09/16 23:00 101 08/09/16 23:00 98.3 90 121/75 95 08/09/16 22:00 102 08/09/16 21:00 104 08/09/16 20:00 118 08/09/16 19:00 103 08/09/16 19:00 98.5 100 18 144/96 93 08/09/16 18:00 122 08/09/16 17:00 140 08/09/16 16:00 108 08/09/16 15:39 90 21 08/09/16 15:00 98.3 94 20 136/89 92 08/09/16 15:00 102 08/09/16 14:00 111 08/09/16 13:41 18 08/09/16 13:00 126 08/09/16 12:00 110 08/09/16 11:18 16 08/09/16 11:00 106 08/09/16 11:00 98.2 108 20 140/81 92 08/09/16 10:12 93 Nasal Cannula 3.00 08/09/16 10:00 106 08/09/16 09:00 106 I/O 08/09/16 08/09/16 08/09/16 08/10/16 08/10/16 08/10/16 07:00 15:00 23:00 07:00 15:00 23:00 Intake Total 240 ml 1080 ml 240 ml Output Total 2000 ml 4050 ml 750 ml Balance -1760 ml -2970 ml -510 ml Intake Oral 240 ml 1080 ml 240 ml IV Total 0 ml Output Urine Total 2000 ml 4050 ml 750 ml # Bowel Movements 1 Laboratory Date/Time Procedure Status Source Growth 08/09/16 18:20 Stool Occult Blood ([facility]) - Final Complete Stool Stool HEMOCCULT NEGATIVE 08/06/16 12:20 Aerobic Blood Culture - Preliminary Resulted Blood Peripheral NO GROWTH IN 3 DAYS 08/06/16 12:20 Anaerobic Blood Culture - Preliminary Resulted Blood Peripheral NO GROWTH IN 3 DAYS 08/06/16 09:53 Aerobic Blood Culture Received Blood Peripheral Pending 08/06/16 09:53 Anaerobic Blood Culture Received Blood Peripheral Pending Physical Exam HEENT: Pupils round and reactive to light; normocephalic; atraumatic; no jaundice. Throat is clear. NECK: Neck is supple, no JVD, no lymphadenopathy. CHEST: Chest is clear to auscultation and percussion. CARDIAC: Regular rate and rhythm with no murmur gallop or rubs. ABDOMEN: Soft, nondistended, nontender; no hepatosplenomegaly; bowel sounds are present in all four quadrants. EXTREMITIES: No clubbing, cyanosis, or edema. SKIN: Normal; no rash; no jaundice. PROJECT DEVELOPMENT ENGINEER: No focal deficits; alert and oriented times three. Assessment and Plan Plan - Anemia/melena- Patient reports one episode of black tarry stools few days ago , but no more, today he had a regular formed brown stool. He did have nausea and vomiting when he first came in, but no more, he has been tolerating diet okay, his abdomen is significant for ventral hernia that failed surgical intervention X 2. He had a drop in hh, this was 10.6 on admission, today hgb is 8.2. States he has chronic GERD fairly controlled with Omeprazole, never had EGD before, states he had a colonoscopy a year ago, can't recall the name of physician. He drinks on occasions, no NSAIDs or blood thinner. stools for occult ordered, but not done, PPI, no active bleeding - Chronic GERD fairly controlled with Omeprazole, never had EGD before - bilateral hydronephrosis suggestive of bladder outlet obstruction- urology on the case, discharge with Hammond and op f/u - Pneumonia- Improving with abx, pulmonology on the case - YUMIKO, electrolyte abnormalities- improving per attending - past medical history of Hypertension, Hyperlipidemia, ventral hernia X 2 repairs COPD, Prostate CAstatus post radiation treatment 9 08-10-16 doing better today, Had EGD which showed mild gastritis Bx done, nodule in the EG junction Bx done, esophagitis grade B Bx done. he does not remember where he did his colonoscopy, no records of it in our office (never been seen at [facility]) and not in [facility]. iron sat is 28% Plan: - clear liquid - if we can not find colonoscopy results (could be mixing up with radiology report) then we will do colonoscopy in am. - Cont. PPI - Monitor hh - Transfuse as needed - Supportive care Shanna Radford MD Aug 10, 2016 09:10
[2016-08-10] MEDS: CEFUROXIME AXETIL 500 MG TAB PO SCH ×2 (10:21→21:11)
[2016-08-10] MEDS: DILTIAZEM HCL 30 MG TAB PO SCH ×4 (10:21→21:11)
[2016-08-10] MEDS: SODIUM CHLORIDE 0.9% FLUSH 5 ML FLUSH FLUSH SCH ×2 (10:21→21:12)
[2016-08-10] MEDS: BUDESONIDE-FORMOTEROL 160/4.5 MCG INHALER INH SCH ×2 (10:22→21:12)
[2016-08-10] MEDS: predniSONE 20 MG TAB PO SCH (10:22)
[2016-08-10] MEDS: PANTOPRAZOLE SOD 40 MG DELAYED RELEASE TAB PO SCH (10:22)
[2016-08-10] MEDS: ACETAMINOPHEN/HYDROcodone 325 MG/5 MG TAB PO PRN ×3 (10:22→23:11)
[2016-08-10] MEDS: CALCIUM CARBONATE 500 MG CHEWABLE TAB CHEW PRN ×2 (10:22→21:11)
[2016-08-10 10:34] LABS: ANA SCREEN NEG (NEG)
--- NOTE | 2016-08-10 11:35 | RSPPFT ---
DATE OF PROCEDURE: 08/06/16 COMMENTS: Spirometry demonstrates an FEV1 of 0.8 at 28% of predicted, FVC of 1.6 at 43%, FEF 25-75 at 14% of predicted. Post-bronchodilator study demonstrated no significant change. Flow volume loops suggest severe obstruction. IMPRESSION: 1. Severe obstructive disease. 2. No significant change following use of bronchodilator.
--- NOTE | 2016-08-10 12:27 | HHI.PR ---
Subjective Remarks Has cough with yellow sputum. Feels better overall. has trouble with Hammond. Denies Chest pain. Will have Colonoscopy. Objective Vital Signs Date Time Temp Pulse Resp B/P Pulse Ox O2 Delivery O2 Flow Rate FiO2 08/10/16 11:54 18 08/10/16 08:55 85 18 126/83 96 08/10/16 08:46 87 18 129/75 97 08/10/16 08:36 98.5 85 18 120/81 96 08/10/16 07:50 98.0 100 24 142/90 90 08/10/16 07:00 89 08/10/16 07:00 98.5 93 18 135/87 91 08/10/16 06:00 90 08/10/16 05:00 88 08/10/16 04:42 98.2 84 131/84 92 08/10/16 04:00 88 08/10/16 03:00 94 08/10/16 02:00 94 08/10/16 01:00 102 08/09/16 23:00 101 08/09/16 23:00 98.3 90 121/75 95 08/09/16 22:00 102 08/09/16 21:00 104 08/09/16 20:00 118 08/09/16 19:00 103 08/09/16 19:00 98.5 100 18 144/96 93 08/09/16 18:00 122 08/09/16 17:00 140 08/09/16 16:00 108 08/09/16 15:39 90 21 08/09/16 15:00 98.3 94 20 136/89 92 08/09/16 15:00 102 08/09/16 14:00 111 08/09/16 13:41 18 08/09/16 13:00 126 I/O 08/09/16 08/09/16 08/09/16 08/10/16 08/10/16 08/10/16 07:00 15:00 23:00 07:00 15:00 23:00 Intake Total 240 ml 1080 ml 240 ml 150 ml Output Total 2000 ml 4050 ml 750 ml Balance -1760 ml -2970 ml -510 ml 150 ml Intake Oral 240 ml 1080 ml 240 ml IV Total 0 ml Other 150 ml Output Urine Total 2000 ml 4050 ml 750 ml # Bowel Movements 1 Result Diagram: 08/09/16 0512 08/08/16 0641 Objective Remarks This is elderly man, averagely built,W/M in no acute distress. HEENT: Head normocephalic. Pupils reactive and equal. Tongue is moist. Throat is clear. Neck: Supple. No bruits, no thyroid enlargement, no lymphadenopathy. Chest: Equal movements with increased AP diameter with occ wheezes over both lung garcia. Prolonged expirations. occ basal crackles. Heart: The heart sounds are regular S1-S2. No murmur. Abdomen is soft, and there is a large ventral hernia with multiple scars on the abdomen The hernia is reducible. There is no organomegaly or tenderness. Bowel sounds are faint. Extremities: Reveal no definite lesions.Neuro , no deficits. Assessment and Plan Assessment and Plan IMPRESSION 1. COPD with acute exacerbation 2. Severe emphysema with chronic bronchitis 3. Large ventral hernia. 4. History of hypertension and hyperlipidemia. 5. Basal Pneumonia. Plan : 1. PO Ceftin 500 mg bid X 7 days 2. Nebs qid , duoneb. 3. Home in am 4. Prednisone 10 mg bid.and taper over 2 weeks 5. Colonoscopy per GI 6. Cont Symbicort 160/4.5 mcg , 2puffs bid 7. Home O2 at 2 L. Rajat Michel MD Aug 10, 2016 12:27
[2016-08-10] MEDS ORDERED: PEG (High)/E-LYTE SOLN 4000 ML BTL PO ONE (15:00)
[2016-08-10] MEDS: TAMSULOSIN HCL 0.4 MG CAP PO SCH (21:11)
[2016-08-10] MEDS: HYDROmorphone HCL PF 1 MG/ML VIAL IV PUSH PRN (21:13)
[2016-08-10] MEDS: predniSONE 10 MG TAB PO SCH (21:19)
[2016-08-11] VITALS (20 sets, daily range): BP systolic 103–147; BP diastolic 55–94; PULSE 70–128; RESP 16–20; TEMP 97.4–98.6; O2SAT 93–99
--- NOTE | 2016-08-11 08:10 | HHI.PR ---
Subjective Remarks in no acute distress. no sob or pain. hoping that he would go home today. Objective Vitals Vital Signs Date Time Temp Pulse Resp B/P Pulse Ox O2 Delivery O2 Flow Rate FiO2 08/11/16 07:41 97.4 70 20 103/55 99 08/11/16 06:00 80 08/11/16 05:30 98.6 88 16 127/82 99 08/11/16 05:00 84 08/11/16 04:00 82 08/11/16 03:00 86 08/11/16 02:00 84 08/11/16 01:00 80 08/11/16 00:07 98.3 79 16 121/79 98 08/11/16 00:00 128 08/10/16 23:00 110 08/10/16 22:00 88 08/10/16 21:00 92 08/10/16 20:57 98.3 96 16 124/88 95 08/10/16 20:00 96 08/10/16 19:00 98 08/10/16 18:00 116 08/10/16 17:00 118 08/10/16 16:00 118 08/10/16 15:00 111 08/10/16 15:00 97.8 107 18 135/83 95 08/10/16 13:27 94 21 08/10/16 11:54 18 08/10/16 11:00 97.8 106 18 127/74 98 08/10/16 11:00 103 08/10/16 10:00 122 08/10/16 08:55 85 18 126/83 96 08/10/16 08:46 87 18 129/75 97 08/10/16 08:36 98.5 85 18 120/81 96 I/O 08/10/16 08/10/16 08/10/16 08/11/16 08/11/16 08/11/16 07:00 15:00 23:00 07:00 15:00 23:00 Intake Total 240 ml 150 ml 2720 ml 960 ml Output Total 750 ml 950 ml 1554 ml Balance -510 ml 150 ml 1770 ml -594 ml Intake Oral 240 ml 2720 ml 960 ml IV Total 0 ml Other 150 ml Output Urine Total 750 ml 950 ml 1550 ml Stool Total 4 ml # Bowel Movements 4 Result Diagram: 08/09/16 0512 08/08/16 0641 Imaging Last Impressions Chest X-Ray 08/05/16 0000 Signed Impressions: Service Date/Time: Friday, August 05, 2016 07:49 - CONCLUSION: 1. Interstitial fibrotic changes with bibasilar infiltrate concerning for pneumonia unchanged from previous dated 08/04/16. Reynold Olson MD Abdomen/Pelvis CT 08/04/16 0035 Signed Impressions: Service Date/Time: Thursday, August 04, 2016 01:07 - CONCLUSION: 1. Probable generalized small bowel ileus. 2. Marked bladder distention with bilateral hydronephrosis to mild degree which may be on the basis of bladder outlet traction. 3. Bibasilar edema versus pneumonia with bilateral effusions Gareth Escalante MD Lower Extremity Ultrasound 08/04/16 0000 Signed Impressions: Service Date/Time: Thursday, August 04, 2016 08:31 - CONCLUSION: 1. No evidence of deep venous thrombosis. 2. Bilateral Phillips's cysts left greater than right. Ian Horton MD Objective Remarks GENERAL: This is a well-nourished, well-developed patient, in no apparent distress. CARDIOVASCULAR: Regular rate and regular rhythm without murmurs, gallops, or rubs. RESPIRATORY: Clear to auscultation. Breath sounds equal bilaterally. No wheezes , rales, or rhonchi. GASTROINTESTINAL: Abdomen soft, non-tender, nondistended. Normal, active bowel sounds MUSCULOSKELETAL: Extremities without clubbing, cyanosis, or edema. NEURO: Alert & Oriented x4 to person, place, time, situation. Moves all ext x4 Procedures EGD Medications and IVs Current Medications IV Flush (NS Flush) 2 ml UNSCH PRN IVF FLUSH AFTER USING IV ACCESS; Start 08/04 at 00:45; Stop 08/04/16 at 02:40; Status DC Albuterol/ Ipratropium (Duoneb Neb) 1 ampule ONCE ONCE INH Last administered on 08/04/16 00:49; Start 08/04/16 at 00:45; Stop 08/04/16 at 00:46; Status DC Morphine Sulfate (Morphine Inj) 4 mg ONCE ONCE IV PUSH Last administered on 01:00; Start 08/04/16 at 00:45; Stop 08/04/16 at 00:46; Status DC Ondansetron HCl 4 mg 4 mg ONCE ONCE IVP Last administered on 08/04/16 00:59; Start 08/04/16 at 00:45; Stop 08/04/16 at 00:46; Status DC Sodium Chloride (NS 1000 ml Inj) 1,000 ml @ 125 mls/hr Q8H IV Last administered on 08/04/16 00:59; Start 08/04/16 at 00:35; Stop 08/04/16 at 02:33 ; Status DC IV Flush 2 ml 2 ml UNSCH PRN IVF FLUSH AFTER USING IV ACCESS; Start 08/04/16 at 00:45; Stop 08/04/16 at 02:40; Status DC Cefepime HCl 2000 mg/Sodium Chloride 100 ml @ 200 mls/hr ONCE ONCE IV Last administered on 08/04/16 03:21; Start 08/04/16 at 02:15; Stop 08/04/16 at 02:44 ; Status DC Azithromycin/ Sodium Chloride (Zithromax Inj/ NS 250 ml Inj) 250 ml @ 250 mls/ hr ONCE ONCE IV Last administered on 08/04/16 04:18; Start 08/04/16 at 02:15 ; Stop 08/04/16 at 03:14; Status DC IV Flush (NS Flush) 2 ml UNSCH PRN FLUSH FLUSH AFTER USING IV ACCESS; Start at 02:45 IV Flush (NS Flush) 2 ml BID FLUSH Last administered on 08/10/16 21:12; Start 08/04/16 at 09:00 Heparin Sodium (Porcine) (Heparin Inj) 5,000 units Q8H SQ ; Start 08/04/16 at 06 :00; Stop 08/04/16 at 06:00; Status DC Naloxone HCl (Narcan Inj) 0.4 mg UNSCH PRN IV SEE LABEL COMMENTS; Start at 02:45 Levofloxacin (Levaquin) 750 mg ONCE ONCE PO Last administered on 08/04/16 05: 56; Start 08/04/16 at 05:45; Stop 08/04/16 at 05:46; Status DC Albuterol/ Ipratropium (Duoneb Neb) 1 ampule Q2HR NEB PRN NEB wheezing; Start 08/04/16 at 06:00; Stop 08/04/16 at 17:00; Status DC Albuterol/ Ipratropium (Duoneb Neb) 1 ampule Q6HR NEB NEB ; Start 08/04/16 at 10:00; Stop 08/04/16 at 17:00; Status DC Tiotropium [place] (Spiriva Inh) 18 mcg DAILY INH ; Start 08/04/16 at 09:00; Stop 08/04/16 at 10:20; Status DC Budesonide/ Formoterol Fumarate (Symbicort 160-4.5 Inh) 2 puff BID INH ; Start 08/04/16 at 09:30; Stop 08/04/16 at 10:20; Status DC Cyclobenzaprine HCl (Flexeril) 5 mg HS PO ; Start 08/04/16 at 21:00; Stop at 21:00; Status DC Diltiazem HCl 120 mg 120 mg DAILY PO ; Start 08/04/16 at 09:30; Stop 08/04/16 at 10:20; Status DC Ceftriaxone Sodium/Sodium Chloride (Rocephin Inj/NS Inj) 100 ml @ 200 mls/hr Q24H IV Last administered on 08/08/16 09:38; Start 08/05/16 at 10:00; Stop at 18:00; Status DC Acetaminophen (Tylenol) 650 mg Q4H PRN PO FEVER/ PAIN < 5; Start 08/04/16 at 09 :00 Acetaminophen/ Hydrocodone Bitart ([place] 5-325 Mg) 1 tab Q6H PRN PO PAIN > 5 Last administered on 08/10/16 23:11; Start 08/04/16 at 09:00 Miscellaneous (Pill Splitter) 1 ea UNSCH PRN OTHER SEE LABEL COMMENTS; Start at 09:30 Amlodipine Besylate (Norvasc) 10 mg DAILY PO Last administered on 08/05/16 10: 32; Start 08/05/16 at 09:00; Status Hold Pantoprazole Sodium (Protonix) 40 mg DAILY PO Last administered on 08/10/16 10 :22; Start 08/05/16 at 09:00 Tamsulosin HCl (Flomax) 0.4 mg HS PO Last administered on 08/10/16 21:11; Start 08/04/16 at 21:00 Budesonide/ Formoterol Fumarate (Symbicort 160-4.5 Inh) 2 puff BID INH Last administered on 08/10/16 21:12; Start 08/04/16 at 21:00 Albuterol/ Ipratropium (Duoneb Neb) 1 ampule Q6HR NEB PRN NEB SHORTNESS OF BREATH Last administered on 08/05/16 17:05; Start 08/04/16 at 17:15; Stop 08/08 at 17:15; Status DC Al Hydrox/Mg Hydrox/Simethicone (Mag-Al Plus Susp Liq) 30 ml Q6H PRN PO INDIGESTION Last administered on 08/09/16 17:18; Start 08/04/16 at 17:45 Hydromorphone HCl (Dilaudid Pf Inj) 0.5 mg Q4H PRN IV PUSH BREAKTHROUGH PAIN Last administered on 08/10/16 21:13; Start 08/04/16 at 17:45 Ondansetron HCl (Zofran Inj) 4 mg Q8HR PRN IV PUSH NAUSEA Last administered on 08/05/16 12:53; Start 08/04/16 at 18:15 Potassium Chloride (KCl) 30 meq ONCE ONCE PO Last administered on 08/05/16 09 :05; Start 08/05/16 at 07:45; Stop 08/05/16 at 07:46; Status DC Promethazine HCl 12.5 mg 12.5 mg Q6H PRN IM NAUSEA Last administered on 08:10; Start 08/05/16 at 07:45 Azithromycin/ Sodium Chloride (Zithromax Inj/ NS 250 ml Inj) 250 ml @ 250 mls/ hr Q24H IV Last administered on 08/07/16 14:00; Start 08/05/16 at 14:00; Stop 08/07/16 at 20:31; Status DC Calcium Carbonate (Tums Chew) 500 mg Q6H PRN CHEW DYSPEPSIA Last administered on 08/10/16 21:11; Start 08/05/16 at 13:30 Diltiazem HCl (Cardizem) 30 mg QID PO Last administered on 08/10/16 21:11; Start 08/05/16 at 14:15 Albuterol/ Ipratropium (Duoneb Neb) 1 ampule QID NEB NEB Last administered on 08/09/16 19:07; Start 08/05/16 at 20:00; Stop 08/09/16 at 20:00; Status DC Metoprolol Tartrate (Lopressor Inj) 5 mg ONCE ONCE IV PUSH Last administered on 08/05/16 23:45; Start 08/05/16 at 23:45; Stop 08/05/16 at 23:46; Status DC Potassium Chloride (KCl) 30 meq ONCE ONCE PO Last administered on 08/06/16 12 :56; Start 08/06/16 at 11:00; Stop 08/06/16 at 11:01; Status DC Methylprednisolone Sodium Succinate (SoluMEDROL INJ) 40 mg Q8H IV Last administered on 08/07/16 11:17; Start 08/06/16 at 20:00; Stop 08/07/16 at 20:31 ; Status DC Potassium Chloride (KCl) 40 meq ONCE ONCE PO Last administered on 08/07/16 10 :30; Start 08/07/16 at 10:30; Stop 08/07/16 at 10:34; Status DC Potassium Chloride (KCl) 30 meq ONCE ONCE PO Last administered on 08/07/16 15 :04; Start 08/07/16 at 14:00; Stop 08/07/16 at 14:01; Status DC Methylprednisolone Sodium Succinate (SoluMEDROL INJ) 40 mg BID IV Last administered on 08/08/16 09:39; Start 08/08/16 at 09:00; Stop 08/08/16 at 10:32 ; Status DC Methylprednisolone Sodium Succinate (SoluMEDROL INJ) 20 mg BID IV ; Start at 21:00; Stop 08/08/16 at 21:00; Status DC Cefuroxime Axetil (Ceftin) 500 mg Q12HR PO Last administered on 08/10/16 21:11 ; Start 08/08/16 at 21:00 Prednisone (Deltasone) 20 mg BID PO Last administered on 08/10/16 10:22; Start 08/08/16 at 21:00; Stop 08/10/16 at 12:25; Status DC Polyethylene Glycol/ Electrolytes (Colyte Liq) 4,000 ml ONCE ONCE PO Last administered on 08/10/16 15:00; Start 08/10/16 at 15:00; Stop 08/10/16 at 15:01 ; Status DC Prednisone (Deltasone) 10 mg BID PO Last administered on 08/10/16 21:19; Start 08/10/16 at 21:00 Propofol (Diprivan 200 Mg/20 ml Inj) 150 mg STK-MED ONCE IV ; Start 08/10/16 at 08:23; Stop 08/10/16 at 16:09; Status DC A/P Assessment and Plan A/P Bilateral hydronephrosis with Obstructive uropathywith bladder of the obstruction with History of prostate cancerstatus post radiation therapy s/p menendez cath insertion- urology consult appreciated; will discharge with menendez cath in place- f/u as outpatient and this was d/w the patient. Acute renal failure- s/p menendez cath placement- resolved- acute on chronic respiratory failure due to pneumonia- improving slowly. continue with antibiotics- neb treatment- oxygen as needed to keep O2 sat > 90% - switched to po prednisone. blood cultures negative.pulmonary follow-up appreciated and cleared for discharge. of note the patient is on home oxygen. tachycardia due to pneumonia/ respiratory failure- improved- continue cardizem echo with EF 55%- Bilateral pitting edema venous doppler negative for DVT- will monitor Hematurialikely due to traumatic Menendez, compounded by bladder mucosa irritation from distention urology consulted as noted above. anemia- with reported melena and gradual drop in H/H- - stool for blood negative .consulted GI. s/p EGD with mild gastritis/nodule in EG junction/esophagitis. awaiting colonoscopy today- f/u with GI along with biopsies. Leukocytosis due to infection/ steroids-improving-- continue antibiotics . Hyponatremia; due to renal failure-improved- will monitor hypokalemia; replaced. History of hypertension; continue cardizem History of COPD; resumed home meds Discharge Planning possible dc home later today and after colonoscopy. see med list. f/u; pcp, GI,urology and pulmonary. case management for [facility]. time spent 31 min. John Arana MD Aug 11, 2016 08:10
[2016-08-11] MEDS ORDERED: PRED5TAB PO (08:14)
[2016-08-11] MEDS: SODIUM CHLORIDE 0.9% FLUSH 5 ML FLUSH FLUSH SCH (09:00)
[2016-08-11] MEDS ORDERED: PROPOFOL 200 MG/20 ML AMP IV ONE (09:49)
--- NOTE | 2016-08-11 10:23 | HHI.GIFU ---
Subjective Remarks doing ok, no new complains no sign of bleed Objective Vitals I&O Vital Signs Date Time Temp Pulse Resp B/P Pulse Ox O2 Delivery O2 Flow Rate FiO2 08/11/16 08:48 97.6 70 20 103/55 99 08/11/16 07:41 97.4 70 20 103/55 99 08/11/16 06:00 80 08/11/16 05:30 98.6 88 16 127/82 99 08/11/16 05:00 84 08/11/16 04:00 82 08/11/16 03:00 86 08/11/16 02:00 84 08/11/16 01:00 80 08/11/16 00:07 98.3 79 16 121/79 98 08/11/16 00:00 128 08/10/16 23:00 110 08/10/16 22:00 88 08/10/16 21:00 92 08/10/16 20:57 98.3 96 16 124/88 95 08/10/16 20:00 96 08/10/16 19:00 98 08/10/16 18:00 116 08/10/16 17:00 118 08/10/16 16:00 118 08/10/16 15:00 111 08/10/16 15:00 97.8 107 18 135/83 95 08/10/16 13:27 94 21 08/10/16 11:54 18 08/10/16 11:00 97.8 106 18 127/74 98 08/10/16 11:00 103 I/O 08/10/16 08/10/16 08/10/16 08/11/16 08/11/16 08/11/16 06:59 14:59 22:59 06:59 14:59 22:59 Intake Total 240 ml 150 ml 2720 ml 960 ml Output Total 750 ml 950 ml 1554 ml Balance -510 ml 150 ml 1770 ml -594 ml Intake Oral 240 ml 2720 ml 960 ml IV Total 0 ml Other 150 ml Output Urine Total 750 ml 950 ml 1550 ml Stool Total 4 ml # Bowel Movements 4 Laboratory Laboratory Tests Test 08/10/16 11:20 Nasal Screen MRSA (PCR) NEGATIVE Date/Time Procedure Status Source Growth 08/09/16 18:20 Stool Occult Blood (ZAYDA) - Final Complete Stool Stool HEMOCCULT NEGATIVE 08/06/16 12:20 Aerobic Blood Culture - Preliminary Resulted Blood Peripheral NO GROWTH IN 4 DAYS 08/06/16 12:20 Anaerobic Blood Culture - Preliminary Resulted Blood Peripheral NO GROWTH IN 4 DAYS Physical Exam HEENT: Pupils round and reactive to light; normocephalic; atraumatic; no jaundice. Throat is clear. NECK: Neck is supple, no JVD, no lymphadenopathy. CHEST: Chest is clear to auscultation and percussion. CARDIAC: Regular rate and rhythm with no murmur gallop or rubs. ABDOMEN: Soft, nondistended, nontender; no hepatosplenomegaly; bowel sounds are present in all four quadrants. weal abdominal wall EXTREMITIES: No clubbing, cyanosis, or edema. SKIN: Normal; no rash; no jaundice. ELECTRIC [employer]OCK MECH[employer]IC: No focal deficits; alert and oriented times three. Assessment and Plan Plan - Anemia/melena- Patient reports one episode of black tarry stools few days ago , but no more, today he had a regular formed brown stool. He did have nausea and vomiting when he first came in, but no more, he has been tolerating diet okay, his abdomen is significant for ventral hernia that failed surgical intervention X 2. He had a drop in hh, this was 10.6 on admission, today hgb is 8.2. States he has chronic GERD fairly controlled with Omeprazole, never had EGD before, states he had a colonoscopy a year ago, can't recall the name of physician. He drinks on occasions, no NSAIDs or blood thinner. stools for occult ordered, but not done, PPI, no active bleeding - Chronic GERD fairly controlled with Omeprazole, never had EGD before - bilateral hydronephrosis suggestive of bladder outlet obstruction- urology on the case, discharge with [facility] and op f/u - Pneumonia- Improving with abx, pulmonology on the case - YUMIKO, electrolyte abnormalities- improving per attending - past medical history of Hypertension, Hyperlipidemia, ventral hernia X 2 repairs COPD, Prostate CAstatus post radiation treatment 9 08-10-16 doing better today, Had EGD which showed mild gastritis Bx done, nodule in the EG junction Bx done, esophagitis grade B Bx done. he does not remember where he did his colonoscopy, no records of it in our office (never been seen at [facility]) and not in [facility]. iron sat is 28% 2-21-17 doing ok today no complains, colonoscopy was suboptimal prep, 2 polyps were removed by snare and ablated. Plan: - ccardiac diet --colonoscopy as outpatient in few wks - Cont. PPI - Monitor hh - Transfuse as needed - Supportive care - ok to CT home from GI stand Shanna Radford MD Aug 11, 2016 10:23
[2016-08-11] MEDS: DILTIAZEM HCL 30 MG TAB PO SCH ×2 (11:51→15:14)
[2016-08-11] MEDS: CEFUROXIME AXETIL 500 MG TAB PO SCH (11:51)
[2016-08-11] MEDS: PANTOPRAZOLE SOD 40 MG DELAYED RELEASE TAB PO SCH (11:52)
[2016-08-11] MEDS: predniSONE 10 MG TAB PO SCH (11:52)
[2016-08-11] MEDS: ACETAMINOPHEN/HYDROcodone 325 MG/5 MG TAB PO PRN ×2 (11:52→16:25)
[2016-08-11] MEDS: BUDESONIDE-FORMOTEROL 160/4.5 MCG INHALER INH SCH (11:52)
--- NOTE | 2016-08-11 12:50 | HHI.PR ---
Subjective Remarks Improved and ready to go home.Needs home Denies Chest pain.Hamm[facility] is in. Objective Vital Signs Date Time Temp Pulse Resp B/P Pulse Ox O2 Delivery O2 Flow Rate FiO2 08/11/16 12:02 93 08/11/16 11:03 125 08/11/16 11:00 98.5 82 16 147/94 93 08/11/16 10:29 72 16 117/70 92 08/11/16 10:24 70 16 115/69 93 08/11/16 10:19 97.4 65 18 116/67 92 08/11/16 08:48 97.6 70 20 103/55 99 08/11/16 07:41 97.4 70 20 103/55 99 08/11/16 06:00 80 08/11/16 05:30 98.6 88 16 127/82 99 08/11/16 05:00 84 08/11/16 04:00 82 08/11/16 03:00 86 08/11/16 02:00 84 08/11/16 01:00 80 08/11/16 00:07 98.3 79 16 121/79 98 08/11/16 00:00 128 08/10/16 23:00 110 08/10/16 22:00 88 08/10/16 21:00 92 08/10/16 20:57 98.3 96 16 124/88 95 08/10/16 20:00 96 08/10/16 19:00 98 08/10/16 18:00 116 08/10/16 17:00 118 08/10/16 16:00 118 08/10/16 15:00 111 08/10/16 15:00 97.8 107 18 135/83 95 08/10/16 13:27 94 21 I/O 08/10/16 08/10/16 08/10/16 08/11/16 08/11/16 08/11/16 07:00 15:00 23:00 07:00 15:00 23:00 Intake Total 240 ml 150 ml 2720 ml 960 ml 500 ml Output Total 750 ml 950 ml 1554 ml Balance -510 ml 150 ml 1770 ml -594 ml 500 ml Intake Oral 240 ml 2720 ml 960 ml IV Total 0 ml 500 ml Other 150 ml Output Urine Total 750 ml 950 ml 1550 ml Stool Total 4 ml # Bowel Movements 4 Result Diagram: 08/09/16 0512 08/08/16 0641 Objective Remarks This is elderly man, averagely built,W/M in no acute distress. HEENT: Head normocephalic. Pupils reactive and equal. Tongue is moist. Throat is clear. Neck: Supple. No bruits, no thyroid enlargement, no lymphadenopathy. Chest: Equal movements with increased AP diameter with occ wheezes over both lung garcia. Prolonged expirations. Heart: The heart sounds are regular S1-S2. No murmur. Abdomen is soft, and there is a large ventral hernia with multiple scars on the abdomen The hernia is reducible. There is no organomegaly or tenderness. Bowel sounds are faint. Extremities: Reveal no definite lesions.Neuro , no deficits. Assessment and Plan Assessment and Plan IMPRESSION 1. COPD with acute exacerbation 2. Severe emphysema with chronic bronchitis 3. Large ventral hernia. 4. History of hypertension and hyperlipidemia. 5. Basal Pneumonia. Plan : 1. PO Ceftin 500 mg bid X 5 days 2. Nebs qid , duoneb. 3. Home today 4. Prednisone 10 mg bid.and taper over 2 weeks 5. Change [place] per Dr hernández 6. Cont Symbicort 160/4.5 mcg , 2puffs bid 7. Home O2 at 2 L. Rajat Michel MD Aug 11, 2016 12:50
[2016-08-11] MEDS: ALUMINUM/MAGNESIUM/SIMETH 30 ML CUP PO PRN (13:18)
[2016-08-12 03:56] LABS: IGA SERUM 443 mg/dL (81-463); TISSUE TRANSGLUTAMINASE AB IGG ND U/mL (())
[2016-08-12 13:56] LABS: ENDOMYSIAL AB TITER ND (<1:5); TISSUE TRANSGLUTAMINASE AB LESS THAN 1 U/mL (())
[2016-08-13 03:52] LABS: MITOCHONDRIAL ABS LESS THAN 20.0 U (())
[2016-08-14 12:15] LABS: HEREDITARY HEMOCHROM SPECIMEN WB Whole Blood (())
== END 2016-08-11 17:46 | disposition home health service (06) | DRG 698 ==
LOC: NEPC 23:22 → NEDA 08-04 02:29 → NEDH 08-04 06:52 → HCIS 08-05 15:09
PROVIDERS: ADMIT Internal Medicine; ATTEND Internal Medicine
PROC: 0T9B70Z Drainage of Bladder with Drainage Device, Via Natural or Artificial Opening (ICD-10-PCS; principal; 2016-08-04)
PROC: 0DB58ZX Excision of Esophagus, Via Natural or Artificial Opening Endoscopic, Diagnostic (ICD-10-PCS; 2016-08-10)
PROC: 0DB68ZX Excision of Stomach, Via Natural or Artificial Opening Endoscopic, Diagnostic (ICD-10-PCS; 2016-08-10)
PROC: 0DBK8ZX Excision of Ascending Colon, Via Natural or Artificial Opening Endoscopic, Diagnostic (ICD-10-PCS; 2016-08-11)
DX: N32.0 Bladder-neck obstruction (principal); J18.9 Pneumonia, unspecified organism; J96.20 Acute and chronic respiratory failure, unspecified whether with hypoxia or hypercapnia; N17.9 Acute kidney failure, unspecified; J81.1 Chronic pulmonary edema; K56.7 Ileus, unspecified; N39.0 Urinary tract infection, site not specified; Z99.81 Dependence on supplemental oxygen; N13.30 Unspecified hydronephrosis; J44.1 Chronic obstructive pulmonary disease with (acute) exacerbation; E87.1 Hypo-osmolality and hyponatremia; K92.1 Melena; E87.70 Fluid overload, unspecified; K43.2 Incisional hernia without obstruction or gangrene; I45.10 Unspecified right bundle-branch block; I12.9 Hypertensive chronic kidney disease with stage 1 through stage 4 chronic kidney disease, or unspecified chronic kidney disease; F17.210 Nicotine dependence, cigarettes, uncomplicated; Z85.46 Personal history of malignant neoplasm of prostate; Z92.3 Personal history of irradiation; M25.559 Pain in unspecified hip; Z87.11 Personal history of peptic ulcer disease; E78.5 Hyperlipidemia, unspecified; M19.90 Unspecified osteoarthritis, unspecified site; N18.9 Chronic kidney disease, unspecified; E78.00 Pure hypercholesterolemia, unspecified; K44.9 Diaphragmatic hernia without obstruction or gangrene; Z86.14 Personal history of Methicillin resistant Staphylococcus aureus infection; Z86.19 Personal history of other infectious and parasitic diseases; R31.9 Hematuria, unspecified; K21.0 Gastro-esophageal reflux disease with esophagitis; R00.0 Tachycardia, unspecified; E87.6 Hypokalemia; Z86.010 Personal history of colon polyps; K29.70 Gastritis, unspecified, without bleeding; D64.9 Anemia, unspecified
CPT/HCPCS: 36600; 71010; 74176; 76937; 80048; 80053; 80074; 81001; 81256; 82103; 82272; 82390; 82728; 82784; 82805; 82977; 83516; 83520; 83540; 83550; 83605; 83690; 83735; 83880; 84080; 85007; 85025; 85027; 85610; 85730; 86038; 86256; 87040; 87086; 87641; 88305; 88312; 93005; 93306; 93970; 94060; 94640; 94664; 96361; 96374; 96375; J0456; J0692; J0696; J1170; J2270; J2405; J2550; J2920; J7030; J7050; J7512

== ENCOUNTER 2016-08-20 10:47 | Inpatient (IN) | payer OTHER, MEDICARE ==
[~2016-08-20] VITALS: Ht 170.2 cm; Wt 66.8 kg
[2016-08-20] VITALS (8 sets, daily range): BP systolic 115–157; BP diastolic 74–98; PULSE 93–130; RESP 20–24; TEMP 97.5–97.7; O2SAT 90–99
[~2016-08-20 10:47] MED LIST changes: -1-ME1LIQ PO; -ADVAI250I PO; -ALLO300 PO; +CARD120C4 PO; +CEFT500T3 PO; -CYCL5TAB PO; -DILTCD120 PO; -DUONI NEB; +HYDR-3366 PO; +IPRASOL NEB; -LORTA5 PO; +MULT-135 PO; +PRED5TAB PO; +PROT40TA PO; -SPIRCAP INH; +SYMB160A INH; -TAB-TAB PO; +TAMS5CAP PO; +TRAZ50TA12 PO; -ZYVO600T PO
--- NOTE | 2016-08-20 11:40 | PD ---
HPI Chief Complaint: Complaint Time Seen by Provider: 11:37 Travel History International Travel<30 days: No Contact w/Intl Traveler<30days: No Traveled to known affect area: No History of Present Illness HPI 71-year-old male with history of hypertension, COPD, CAD, hernia, GERD, prostate cancer 8 years ago, presents to emergency department at the instruction of Dr. Yung for evaluation of what the family states is kidney failure. The family tells me that they were told his white count is higher. Patient had an episode of coffee-ground emesis last week and has been vomiting over the weekend. No known fever chills but increased lethargy. I am told that the patient legs began to swell approximately a month ago and he is having severe back pain. This is what caused the lab work to be done on Wednesday. There are called today and told to come to the emergency department. PFSH Past Medical History Hx Anticoagulant Therapy: No Arthritis: Yes Asthma: No Heart Rhythm Problems: No Cancer: Yes (PROSTATE) Cardiovascular Problems: Yes High Cholesterol: Yes Chemotherapy: No Chest Pain: No Congestive Heart Failure: No COPD: Yes Cerebrovascular Accident: No Diabetes: No Diminished Hearing: No Endocrine: Yes Gastrointestinal Disorders: Yes (HX PERFORATED GASTRIC ULCER) Genitourinary: Yes Hepatitis: No Hiatal Hernia: Yes Hypertension: Yes Immune Disorder: No Musculoskeletal: Yes (PAIN NECK AREA) Neurologic: No Psychiatric: No Reproductive: No Respiratory: Yes (COPD) Integumentary: Yes (SHINGLES) Radiation Therapy: Yes Sleep Apnea: No Ulcer: Yes Past Surgical History Abdominal Surgery: Yes (2 HERNIA REPAIRS ABDOMEN, REPAIRED PERFORATED STOMACH ULCER, APPY) AICD: No Appendectomy: Yes Cardiac Surgery: No Ear Surgery: No Endocrine Surgery: No Eye Surgery: Yes (LETY CATARACT) Genitourinary Surgery: No Hysterectomy: No Joint Replacement: No Oral Surgery: No Pacemaker: No Thoracic Surgery: No Other Surgery: Yes Social History Alcohol Use: Yes (OCCASIONAL) Tobacco Use: Yes (1 PPD) Substance Use: No Allergies-Medications (Allergen,Severity, Reaction): Coded Allergies: *MDRO Multi-Drug Resistant Organism (Verified Adverse Reaction, Unknown, ) MRSA (abdominal wound) 2014 per 04/10/2015 H&P Reported Meds & Prescriptions Reported Meds & Active Scripts Active Prednisone 5 Mg Tab 5 Mg PO DIRECTED 6 Days 20 mg po daily for two days then 10 mg po daily for two days then 5 mg po daily for two days then stop. Cardizem CD 24 HR (Diltiazem CD 24 HR) 120 Mg Caper 120 Mg PO DAILY Ceftin (Cefuroxime Axetil) 500 Mg Tab 500 Mg PO Q12HR 5 Days Symbicort Inh (Budesonide/Formoterol Fumarate) 160-4.5 Mcg/Act Aero 2 Puff INH BID Reported Multi Vitamin (Multiple Vitamin) 1 Tab Tab 1 Tab PO DAILY Flomax (Tamsulosin HCl) 0.4 Mg Cap 0.4 Mg PO HS Protonix (Pantoprazole Sodium) 40 Mg Tab 40 Mg PO DAILY Trazodone (Trazodone HCl) 50 Mg Tab 50-100 Mg PO HS Chloe (Hydrocodone-Acetaminophen) 10-325 Mg Tab 1-2 Tab PO Q4H PRN Duoneb (Ipratropium-Albuterol Neb) 0.5-2.5 Mg/3 Ml Neb 1 Vial NEB QID PRN Combivent Respimat Inh (Ipratropium-Albuterol Inh) 20-100 [facility]/Act Aero 1 Puff INH Q4HR PRN Review of Systems Except as stated in HPI: all other systems reviewed are Neg Physical Exam Narrative GENERAL: Chronically ill appearing elderly male pt in no acute distress. SKIN: Warm and dry. HEAD: Atraumatic. Normocephalic. EYES: Pupils equal and round. No scleral icterus. No injection or drainage. ENT: No nasal bleeding or discharge. Mucous membranes pink and moist. NECK: Trachea midline. No JVD. CARDIOVASCULAR: Tachycardic rate and rhythm. No murmur appreciated. RESPIRATORY:Shallow respirations, diminished No accessory muscle use. Breath sounds equal bilaterally. GASTROINTESTINAL: Abdomen soft,. Large ventral hernia Soft MUSCULOSKELETAL: No obvious deformities. No clubbing. No cyanosis. No edema. NEUROLOGICAL: Awake and alert. No obvious cranial nerve deficits. Motor grossly within normal limits. Normal speech. PSYCHIATRIC: Appropriate mood and affect; insight and judgment normal. Data Data Last Documented VS Vital Signs Date Time Temp Pulse Resp B/P Pulse Ox O2 Delivery O2 Flow Rate FiO2 08/20/16 10:50 97.5 130 24 115/74 90 Room Air Orders Electrocardiogram (08/20/16 11:25) B-Type Natriuretic Peptide (08/20/16 11:25) Ckmb (Isoenzyme) Profile (08/20/16 11:25) Complete Blood Count With Diff (08/20/16 11:25) Comprehensive Metabolic Panel (08/20/16 11:25) Magnesium (Mg) (08/20/16 11:25) Prothrombin Time / Inr (Pt) (08/20/16 11:25) Act Partial Throm Time (Ptt) (08/20/16 11:25) Troponin I (08/20/16 11:25) Chest, Single Ap (08/20/16 11:25) Blood Culture (08/20/16 11:40) Lactic Acid Sepsis Protocol (08/20/16 11:40) Vancomycin Inj (Vancomycin Inj) (08/20/16 12:45) Piperacil-Tazo 3.375 Gm Premix (Zosyn 3. (08/20/16 12:45) Ecg Monitoring (08/20/16 12:45) Iv Access Insert/Monitor (08/20/16 12:45) Oximetry (08/20/16 12:45) Oxygen Administration (08/20/16 12:45) Albuterol-Ipratropium Neb (Duoneb Neb) (08/20/16 12:45) Sodium Chlor 0.9% 1000 Ml Inj (Ns 1000 M (08/20/16 13:00) Admit Order (Ed Use Only) (08/20/16 14:08) Labs Laboratory Tests Test 08/20/16 08/20/16 12:07 12:33 White Blood Count 19.5 TH/MM3 Red Blood Count 3.64 MIL/MM3 Hemoglobin 11.4 GM/DL Hematocrit 34.1 % Mean Corpuscular Volume 93.6 FL Mean Corpuscular Hemoglobin 31.4 PG Mean Corpuscular Hemoglobin 33.5 % Concent Red Cell Distribution Width 14.6 % Platelet Count 368 TH/MM3 Mean Platelet Volume 8.6 FL Neutrophils (%) (Auto) 86.2 % Lymphocytes (%) (Auto) 2.1 % Monocytes (%) (Auto) 11.6 % Eosinophils (%) (Auto) 0.0 % Basophils (%) (Auto) 0.1 % Neutrophils # (Auto) 16.8 TH/MM3 Lymphocytes # (Auto) 0.4 TH/MM3 Monocytes # (Auto) 2.3 TH/MM3 Eosinophils # (Auto) 0.0 TH/MM3 Basophils # (Auto) 0.0 TH/MM3 CBC Comment AUTO DIFF Differential Total Cells 100 Counted Neutrophils % (Manual) 48 % Band Neutrophils % 41 % Lymphocytes % 4 % Monocytes % 6 % Neutrophils # (Manual) 17.6 TH/MM3 Metamyelocytes 1 % Differential Comment FINAL DIFF MANUAL Platelet Estimate HIGH Platelet Morphology Comment ENLARGED Prothrombin Time 12.1 SEC Prothromb Time International 1.1 RATIO Ratio Activated Partial 28.2 SEC Thromboplast Time Sodium Level 132 MEQ/L Potassium Level 4.0 MEQ/L Chloride Level 83 MEQ/L Carbon Dioxide Level 33.0 MEQ/L Anion Gap 16 MEQ/L Blood Urea Nitrogen 52 MG/DL Creatinine 1.46 MG/DL Estimat Glomerular Filtration 48 ML/MIN Rate Random Glucose 125 MG/DL Calcium Level 9.5 MG/DL Magnesium Level 1.7 MG/DL Total Bilirubin 0.7 MG/DL Aspartate Amino Transf 17 U/L (AST/SGOT) Alanine Aminotransferase 25 U/L (ALT/SGPT) Alkaline Phosphatase 97 U/L Total Creatine Kinase 20 U/L Troponin I 0.02 NG/ML B-Type Natriuretic Peptide 72 PG/ML Total Protein 8.0 GM/DL Albumin 3.7 GM/DL Lactic Acid Level 1.4 mmol/L [facility] Medical Decision Making Medical Screen Exam Complete: Yes Emergency Medical Condition: Yes Medical Record Reviewed: Yes Differential Diagnosis Sepsis versus renal failure versus electrolyte abnormality versus metastatic disease Narrative Course 71-year-old male presents to the emergency department for evaluation. Workup was initiated in triage. Once a medical bed becomes available, patient will be transferred and [place] by that provider. 1135 patient has been assigned a medical bed. Nurse has not yet drawn labs. He will be bedded upon return. Condition: Stable Karen Carr Aug 20, 2016 11:40
--- NOTE | 2016-08-20 11:56 | RADRPT ---
EXAM DATE/TIME: 08/20/2016 11:54 [place] COMPARISON: CHEST SINGLE AP, August 05, 2016, 7:49. INDICATIONS : Chest pains with shortness of breath. Upper abdomen pain. MEDICAL HISTORY : Chronic obstructive pulmonary disease. Emphysema SURGICAL HISTORY : None. ENCOUNTER: Initial ACUITY: 1 day PAIN SCORE: 10/10 LOCATION: Bilateral chest FINDINGS: A single view of the chest demonstrates the lungs to be symmetrically aerated without evidence of mas s, or effusion. There is a mild patchy infiltrate left lung base. The cardiomediastinal contours are unremarkable. Osseous structures are intact. CONCLUSION: Patchy infiltrate left lung base possible small area of pneumonia. Roverto Townsend MD on August 20, 2016 at 11:48 Board Certified Radiologist. This report was verified electronically.
[2016-08-20 12:31] LABS: AUTOMATED NEUTROPHIL # 16.8 TH/MM3 (1.8-7.7); BASOPHIL % 0.1 % (0.0-2.0); HEMATOCRIT 34.1 % (39.0-51.0); LYMPH % 2.1 % (9.0-44.0); LYMPHOCYTE # 0.4 TH/MM3 (1.0-4.8); MEAN CELL VOLUME 93.6 FL (80.0-100.0); MEAN CORPUSCULAR HEMOGLOBIN 31.4 PG (27.0-34.0); MEAN CORPUSCULAR HGB CONC 33.5 % (32.0-36.0); MONO % 11.6 % (0.0-8.0); NEUT % 86.2 % (16.0-70.0); PLATELET COUNT 368 TH/MM3 (150-450); RED BLOOD COUNT 3.64 MIL/MM3 (4.50-5.90); RED CELL DISTRIBUTION WIDTH 14.6 % (11.6-17.2); WHITE BLOOD COUNT 19.5 TH/MM3 (4.0-11.0)
[2016-08-20 12:36] LABS: HEMO FLAGS AUTO DIFF
[2016-08-20 12:39] LABS: APTT (PATIENT) 28.2 SEC (24.3-30.1); INTERNATIONAL NORMALIZED RATIO 1.1 RATIO; PROTHROMBIN TIME - PATIENT 12.1 SEC (9.8-11.6)
[2016-08-20 12:43] LABS: ALT (GPT) 25 U/L (12-78); ANION GAP 16 MEQ/L (5-15); AST (GOT) 17 U/L (15-37); BLOOD UREA NITROGEN 52 MG/DL (7-18); CHLORIDE 83 MEQ/L (98-107); GLOMERULAR FILTRATION RATE 48 ML/MIN (>89); MAGNESIUM 1.7 MG/DL (1.5-2.5); SODIUM (NA) 132 MEQ/L (136-145)
[2016-08-20] MEDS ORDERED: RESP: ALBUTEROL 2.5 MG/IPRATROPIUM 0.5 MG NEB (SCH) INH ONE (12:45)
[2016-08-20] MEDS ORDERED: VANCOMYCIN INJ 1,000 MG in SODIUM CHLOR 0.9% 250 ML INJ 250 ML IV ONE (12:45)
[2016-08-20] MEDS ORDERED: PIPERACIL-TAZO 3.375 GM PREMIX 50 ML IV ONE (12:45)
[2016-08-20 12:47] LABS: ALKALINE PHOSPHATASE 97 U/L (45-117); TOTAL BILIRUBIN ADULT 0.7 MG/DL (0.2-1.0)
[2016-08-20 12:48] LABS: CREATINE KINASE 20 U/L (39-308)
--- NOTE | 2016-08-20 12:56 | PD ---
Physical Exam Date Seen by Provider: Aug 20, 2016 Time Seen by Provider: 12:49 Narrative Workup was initiated in triage. This is a 71-year-old male presents to the emergency department for evaluation of worsening weakness since being discharged from the hospital one week ago. Patient was admitted for bladder outlet obstruction, COPD exacerbation, acute renal failure. The patient states he was instructed by his primary care physician to return today after his WBC count was significantly higher and his renal function was declining again. Patient denies any issues urinating. He states he has urinated normally. He denies any chest pain. He does report increasing shortness of breath. He reports chronic abdominal pain, but states this is his typical abdominal pain. Patient denies any fevers. Patient has a past medical history of hypertension, COPD, CAD, hernia, GERD, prostate cancer 8 years ago. GENERAL: Well-developed well-nourished elderly male patient, afebrile. SKIN: Warm and dry. HEAD: Normocephalic. Atraumatic EYES: No scleral icterus. No injection or drainage. NECK: Supple, trachea midline. No JVD or lymphadenopathy. CARDIOVASCULAR: Regular rhythm without murmurs, gallops, or rubs. Patient is tachycardic with heart rate at 122 upon exam. RESPIRATORY: Breath sounds equal bilaterally. No accessory muscle use. Lungs sounds diminished throughout. GASTROINTESTINAL: Abdomen soft and nondistended. Large ventral hernia noted to soft to palpation. He does have some tenderness over the left abdomen, but states this is his chronic abdominal pain. MUSCULOSKELETAL: No cyanosis, or edema. BACK: Nontender without obvious deformity. No CVA tenderness. Data Data Last Documented VS Vital Signs Date Time Temp Pulse Resp B/P Pulse Ox O2 Delivery O2 Flow Rate FiO2 08/20/16 10:50 97.5 130 24 115/74 90 Room Air Orders Electrocardiogram (08/20/16 11:25) B-Type Natriuretic Peptide (08/20/16 11:25) Ckmb (Isoenzyme) Profile (08/20/16 11:25) Complete Blood Count With Diff (08/20/16 11:25) Comprehensive Metabolic Panel (08/20/16 11:25) Magnesium (Mg) (08/20/16 11:25) Prothrombin Time / Inr (Pt) (08/20/16 11:25) Act Partial Throm Time (Ptt) (08/20/16 11:25) Troponin I (08/20/16 11:25) Chest, Single Ap (08/20/16 11:25) Blood Culture (08/20/16 11:40) Lactic Acid Sepsis Protocol (08/20/16 11:40) Vancomycin Inj (Vancomycin Inj) (08/20/16 12:45) Piperacil-Tazo 3.375 Gm Premix (Zosyn 3. (08/20/16 12:45) Ecg Monitoring (08/20/16 12:45) Iv Access Insert/Monitor (08/20/16 12:45) Oximetry (08/20/16 12:45) Oxygen Administration (08/20/16 12:45) Albuterol-Ipratropium Neb (Duoneb Neb) (08/20/16 12:45) Sodium Chlor 0.9% 1000 Ml Inj (Ns 1000 M (08/20/16 13:00) Admit Order (Ed Use Only) (08/20/16 14:08) Labs Laboratory Tests Test 08/20/16 08/20/16 12:07 12:33 White Blood Count 19.5 TH/MM3 Red Blood Count 3.64 MIL/MM3 Hemoglobin 11.4 GM/DL Hematocrit 34.1 % Mean Corpuscular Volume 93.6 FL Mean Corpuscular Hemoglobin 31.4 PG Mean Corpuscular Hemoglobin 33.5 % Concent Red Cell Distribution Width 14.6 % Platelet Count 368 TH/MM3 Mean Platelet Volume 8.6 FL Neutrophils (%) (Auto) 86.2 % Lymphocytes (%) (Auto) 2.1 % Monocytes (%) (Auto) 11.6 % Eosinophils (%) (Auto) 0.0 % Basophils (%) (Auto) 0.1 % Neutrophils # (Auto) 16.8 TH/MM3 Lymphocytes # (Auto) 0.4 TH/MM3 Monocytes # (Auto) 2.3 TH/MM3 Eosinophils # (Auto) 0.0 TH/MM3 Basophils # (Auto) 0.0 TH/MM3 CBC Comment AUTO DIFF Differential Total Cells 100 Counted Neutrophils % (Manual) 48 % Band Neutrophils % 41 % Lymphocytes % 4 % Monocytes % 6 % Neutrophils # (Manual) 17.6 TH/MM3 Metamyelocytes 1 % Differential Comment FINAL DIFF MANUAL Platelet Estimate HIGH Platelet Morphology Comment ENLARGED Prothrombin Time 12.1 SEC Prothromb Time International 1.1 RATIO Ratio Activated Partial 28.2 SEC Thromboplast Time Sodium Level 132 MEQ/L Potassium Level 4.0 MEQ/L Chloride Level 83 MEQ/L Carbon Dioxide Level 33.0 MEQ/L Anion Gap 16 MEQ/L Blood Urea Nitrogen 52 MG/DL Creatinine 1.46 MG/DL Estimat Glomerular Filtration 48 ML/MIN Rate Random Glucose 125 MG/DL Calcium Level 9.5 MG/DL Magnesium Level 1.7 MG/DL Total Bilirubin 0.7 MG/DL Aspartate Amino Transf 17 U/L (AST/SGOT) Alanine Aminotransferase 25 U/L (ALT/SGPT) Alkaline Phosphatase 97 U/L Total Creatine Kinase 20 U/L Troponin I 0.02 NG/ML B-Type Natriuretic Peptide 72 PG/ML Total Protein 8.0 GM/DL Albumin 3.7 GM/DL Lactic Acid Level 1.4 mmol/L [facility] Medical Record Reviewed: Yes Supervised Visit with ALEX: No Interpretation(s) Last Impressions Chest X-Ray 08/20/16 1125 Signed Impressions: Service Date/Time: August 11:54 - CONCLUSION: Patchy infiltrate left lung base possible small area of pneumonia. Roverto Townsend MD Differential Diagnosis Pneumonia versus sepsis versus acute renal failure versus electrolyte abnormality Narrative Course 71-year-old male presents to the emergency department sent by his primary care physician for elevated WBC count and worsening renal function. Patient was discharged from hospital one month ago. EKG shows sinus tachycardia, heart rate 122 with right bundle branch block. CBC shows elevated WBC count of 19.5. White count was significantly elevated during last admission as well as discharge low WBC count of 17.5. CMP shows hyponatremia of 132, and anion gap is 16, BUNs at 2, creatinine 1.46. This is elevated since he was discharged on August 08 with a creatinine of 0.93 CK is 20. Troponin is 0.02. Lactic acid is 1.4. Magnesium is 1.7. BNP is 72. Coags show no acute abnormality. [facility] is paged for admission. Dr. Scales accepted admission. Sepsis Criteria SIRS Criteria (2 or more): Heart rate over 90, WBC > 14173, < 4000 or > 10% bands Sepsis Criteria (SIRS+source): Infect source susp/known Diagnosis Primary Impression: Pneumonia Qualified Code: J18.1 - Pneumonia of left lower lobe due to infectious organism Additional Impressions: Sepsis Qualified Code: A41.9 - Sepsis, due to unspecified organism Acute kidney injury Admitting Information Admitting Physician Requests: Admit Condition: Stable Coni Draper Aug 20, 2016 12:56
[2016-08-20] MEDS ORDERED: SODIUM CHLOR 0.9% 1000 ML INJ 1,000 ML IV ONE (13:00)
[2016-08-20 13:21] LABS: BANDS 41 % (0-6); METAMYELOCYTES 1 % (0-1); NEUTROPHIL # MANUAL DIFF 17.6 TH/MM3 (1.8-7.7); POLYS (SEG NEUTROPHILS) 48 % (16-70); WBC DIFF SAMPLE 100
[2016-08-20 13:22] LABS: PLATELET ESTIMATE SMEAR HIGH (NORMAL); PLATELET MORPHOLOGY ENLARGED (NORMAL)
[2016-08-20 13:24] LABS: SCAN/DIFF FINAL DIFF MANUAL
[2016-08-20] MEDS ORDERED: ONDANSETRON HCL 4 MG/2 ML VIAL IV PUSH ONE (14:15)
[2016-08-20] MEDS ORDERED: MORPHINE SULFATE 4 MG/ML INJ IV PUSH ONE (14:15)
[2016-08-20] MEDS ORDERED: guaiFENesin/DEXTROMETHORPHAN 200 MG/20 MG/10 ML CUP PO PRN (14:30)
[2016-08-20] MEDS ORDERED: ACETAMINOPHEN 325 MG TAB PO PRN ×2 (14:30→17:45)
[2016-08-20] MEDS ORDERED: NALOXONE HCL 0.4 MG/ML AMP IV PRN ×2 (14:30→17:45)
[2016-08-20] MEDS ORDERED: Vancomycin Consult Pharmacy 1 EA XX SCH (14:30)
[2016-08-20] MEDS: SODIUM CHLOR 0.9% 1000 ML INJ 1,000 ML IV SCH (15:04)
[2016-08-20] MEDS: ENOXAPARIN SODIUM 40 MG/0.4 ML SYRINGE SQ SCH (15:05)
--- NOTE | 2016-08-20 17:27 | HHI.HP ---
[facility] Service [facility] Primary Care Physician Non-Staff Admission Diagnosis pneumonia,sepsis,YUMIKO Diagnoses: (1) Sepsis Diagnosis: Principal (2) HCAP (healthcare-associated pneumonia) Diagnosis: Principal Chief Complaint: Shortness of breath, weakness, not feeling good. Travel History International Travel<30 Days: No Contact w/Intl Traveler <30 Da: No Traveled to Known Affected Are: No Sepsis Criteria SIRS Criteria (2 or more): Heart rate over 90, WBC > 05251, < 4000 or > 10% bands Sepsis Criteria (SIRS+source): Infect source susp/known Criteria Outcome: Meets sepsis criteria History of Present Illness 71-year-old white male with a history of COPD with O2 dependence on 3 L of oxygen presents emergency room with increased steroids weakness, nausea and, poor appetite with increased shortness of breath both at rest and with physical exertion. Patient has had a dry cough. He was just hospitalized 1 week ago and is currently on antibiotics and a steroid taper. He states that he had urinary retention and was diagnosed with bladder outlet obstruction and was sent home with a urinary catheter which has not been changed out. He denies any chills or fever. He reports he went to see Dr. Jon Roberts for his history of ventral hernia and was advised to delay surgical intervention until his chronic medical problems are stabilized and infection resolved. He denies any diarrhea. He reports some mild constipation. He reports no symptoms of lower extremity edema. He reports having history of prostate cancer has not follow with her urologist since diagnosis 9 years ago. He reports that he has been losing 27 pounds over the past 2 months. Review of Systems Constitutional: COMPLAINS OF: Chills, DENIES: Fatigue, Fever, Change in appetite Endocrine: DENIES: Heat/cold intolerance Eyes: DENIES: Blurred vision, Eye pain, Vision loss Ears, nose, mouth, throat: DENIES: Hearing loss, Nasal discharge, Throat pain, Ear Pain, Sinus Pain Respiratory: COMPLAINS OF: Cough, Shortness of breath Cardiovascular: DENIES: Chest pain, Palpitations, Dyspnea on Exertion, Lower Extremity Edema Gastrointestinal: COMPLAINS OF: Abdominal pain, Constipation, DENIES: Black stools, Bloody stools, Diarrhea, Nausea, Vomiting Musculoskeletal: DENIES: Joint pain, Muscle aches, Stiffness Integumentary: DENIES: Rash Hematologic/lymphatic: DENIES: Bruising, Lymphadenopathy Immunologic/allergic: DENIES: Eczema Neurologic: DENIES: Headache, Localized weakness, Paresthesias Psychiatric: DENIES: Anxiety, Depression, Suicidal Ideation Generalized weakness Past Family Social History Past Medical History Hypertension COPD O2 dependent prostate cancer Bladder outlet obstruction Hyperlipidemia Past Surgical History Ventral hernia Appendectomy perforated gastric ulcer surgery Cataract Reported Medications Prednisone 20 mg po daily for two days then 10 mg po daily for two days then 5 mg po daily for two days then stop, taper Cardizem CD 24 HR (Diltiazem CD 24 HR) 120 Mg Caper 120 Mg PO DAILY Ceftin (Cefuroxime Axetil) 500 Mg Tab 500 Mg PO Q12HR 5 Days Symbicort Inh (Budesonide/Formoterol Fumarate) 160-4.5 Mcg/Act Aero 2 Puff INH BID Multi Vitamin (Multiple Vitamin) 1 Tab Tab 1 Tab PO DAILY Flomax (Tamsulosin HCl) 0.4 Mg Cap 0.4 Mg PO HS Protonix (Pantoprazole Sodium) 40 Mg Tab 40 Mg PO DAILY Trazodone (Trazodone HCl) 50 Mg Tab 50-100 Mg PO HS [place] (Hydrocodone-Acetaminophen) 10-325 Mg Tab 1-2 Tab PO Q4H PRN Duoneb (Ipratropium-Albuterol Neb) 0.5-2.5 Mg/3 Ml Neb 1 Vial NEB QID PRN Combivent Respimat Inh (Ipratropium-Albuterol Inh) 20-100 Custodial/Act Aero 1 Puff INH Q4HR PRN Allergies: Coded Allergies: *MDRO Multi-Drug Resistant Organism (Verified Adverse Reaction, Unknown, ) MRSA (abdominal wound) 2014 per 04/10/2015 H&P Family History Father alcohol abuse Dementia Social History Smokes one pack of cigarettes per day Physical Exam Vital Signs Vital Signs Date Time Temp Pulse Resp B/P Pulse Ox O2 Delivery O2 Flow Rate FiO2 08/20/16 10:50 97.5 130 24 115/74 90 Room Air Physical Exam GENERAL: This is a well-nourished, well-developed patient, in no apparent distress. SKIN: No rashes, ecchymoses or lesions. Cool and dry. HEAD: Atraumatic. Normocephalic. No temporal or scalp tenderness. EYES: Pupils equal round and reactive. Extraocular motions intact. No scleral icterus. No injection or drainage. ENT: Nose without bleeding, purulent drainage or septal hematoma. Throat without erythema, tonsillar hypertrophy or exudate. Uvula midline. Airway patent. NECK: Trachea midline. No JVD or lymphadenopathy. Supple, nontender, no meningeal signs. CARDIOVASCULAR: Tachycardic regular rhythm RESPIRATORY: Bilateral coarse breath sounds and bilateral crackles in the bases GASTROINTESTINAL: Abdomen soft, non-tender, distended with significant large ventral hernia that is reducible. Normoactive bowel sounds. No guarding. MUSCULOSKELETAL: Extremities without clubbing, cyanosis, or edema. NEUROLOGICAL: Awake and alert to person place time and situation. Cranial nerves II through XII intact. Motor and sensory grossly within normal limits. Five out of 5 muscle strength in all muscle groups. Normal speech. Laboratory Laboratory Tests Test 08/20/16 08/20/16 12:07 12:33 White Blood Count 19.5 Red Blood Count 3.64 Hemoglobin 11.4 Hematocrit 34.1 Mean Corpuscular Volume 93.6 Mean Corpuscular Hemoglobin 31.4 Mean Corpuscular Hemoglobin 33.5 Concent Red Cell Distribution Width 14.6 Platelet Count 368 Mean Platelet Volume 8.6 Neutrophils (%) (Auto) 86.2 Lymphocytes (%) (Auto) 2.1 Monocytes (%) (Auto) 11.6 Eosinophils (%) (Auto) 0.0 Basophils (%) (Auto) 0.1 Neutrophils # (Auto) 16.8 Lymphocytes # (Auto) 0.4 Monocytes # (Auto) 2.3 Eosinophils # (Auto) 0.0 Basophils # (Auto) 0.0 CBC Comment AUTO DIFF Differential Total Cells 100 Counted Neutrophils % (Manual) 48 Band Neutrophils % 41 Lymphocytes % 4 Monocytes % 6 Neutrophils # (Manual) 17.6 Metamyelocytes 1 Differential Comment FINAL DIFF MANUAL Platelet Estimate HIGH Platelet Morphology Comment ENLARGED Prothrombin Time 12.1 Prothromb Time International 1.1 Ratio Activated Partial 28.2 Thromboplast Time Sodium Level 132 Potassium Level 4.0 Chloride Level 83 Carbon Dioxide Level 33.0 Anion Gap 16 Blood Urea Nitrogen 52 Creatinine 1.46 Estimat Glomerular Filtration 48 Rate Random Glucose 125 Calcium Level 9.5 Magnesium Level 1.7 Total Bilirubin 0.7 Aspartate Amino Transf 17 (AST/SGOT) Alanine Aminotransferase 25 (ALT/SGPT) Alkaline Phosphatase 97 Total Creatine Kinase 20 Troponin I 0.02 B-Type Natriuretic Peptide 72 Total Protein 8.0 Albumin 3.7 Lactic Acid Level 1.4 Date/Time Procedure Status Source Growth 08/20/16 12:32 Aerobic Blood Culture Received Blood Peripheral Pending 08/20/16 12:32 Anaerobic Blood Culture Received Blood Peripheral Pending Result Diagram: 08/20/16 1207 08/20/16 1207 Imaging Last Impressions Chest X-Ray 08/20/16 1125 Signed Impressions: Service Date/Time: August 11:54 - CONCLUSION: Patchy infiltrate left lung base possible small area of pneumonia. Roverto Townsend MD Assessment and Plan Problem List: (1) Sepsis ICD Code: A41.9 Status: Acute (2) HCAP (healthcare-associated pneumonia) ICD Code: J18.9 Status: Acute (3) COPD exacerbation ICD Code: J44.1 Status: Acute Assessment and Plan 1. Presenting sepsis with suspected health care associated pneumonia versus need to rule out underlying urinary tract infection from indwelling [place] catheter.At this time will start patient on vancomycin and Zosyn, Zithromax.. Patient presented with leukocytosis and tachycardia. Leukocytosis could also be attributed to his recent prednisone use and taper. Supportive care and IV fluid hydration. 2. Indwelling [place] catheter due to recent bladder outlet obstructionneed follow-up with urology particular with a history of prostate cancer.Continue with Flomax, check UA to rule out underlying urinary tract infection. 3. COPD, chronic O2 dependence with acute exacerbationcontinue with bronchodilators, steroid taper. 4. Hyperlipidemiacontinue with statin. 5. Reducible large ventral herniafollow-up with Jon roberts, general surgery 6. DVT prophylaxisbilateral SCDs Physician Certification 2 Midnight Certification Type: Admission for Inpatient Services Order for Inpatient Services The services are ordered in accordance with Medicare regulations or non- Medicare payer requirements, as applicable. In the case of services not specified as inpatient-only, they are appropriately provided as inpatient services in accordance with the 2-midnight benchmark. Estimated LOS (days): 3 days is the estimated time the patient will need to remain in the hospital, assuming treatment plan goals are met and no additional complications. Post-Hospital Plan: Home Health Problem Qualifiers (1) Sepsis: Qualified Code: A41.9 - Sepsis, due to unspecified organism Martha Scales MD Aug 20, 2016 17:27
[2016-08-20] MEDS ORDERED: ACETAMINOPHEN/HYDROcodone 325 MG/5 MG TAB PO PRN (17:45)
[2016-08-20] MEDS: ACETAMINOPHEN/HYDROcodone 325 MG/7.5 MG TAB PO PRN (19:32)
[2016-08-20] MEDS: SODIUM CHLORIDE 0.9% FLUSH 5 ML FLUSH FLUSH SCH (19:32)
[2016-08-20] MEDS: PIPERACIL-TAZO 4.5 GM PREMIX 100 ML IV SCH (19:56)
[2016-08-20] MEDS: TAMSULOSIN HCL 0.4 MG CAP PO SCH (19:56)
[2016-08-20] MEDS: RESP: ALBUTEROL 2.5 MG/IPRATROPIUM 0.5 MG NEB (SCH) INH (23:29)
[2016-08-21] VITALS (9 sets, daily range): BP systolic 120–146; BP diastolic 71–87; PULSE 89–111; RESP 20–24; TEMP 97.6–99; O2SAT 95–98
[2016-08-21] MEDS: ACETAMINOPHEN/HYDROcodone 325 MG/7.5 MG TAB PO PRN ×5 (00:57→21:15)
[2016-08-21] MEDS: RESP: ALBUTEROL 2.5 MG/IPRATROPIUM 0.5 MG NEB (SCH) INH ×4 (03:32→21:00)
[2016-08-21] MEDS: PIPERACIL-TAZO 4.5 GM PREMIX 100 ML IV SCH ×4 (04:23→21:07)
[2016-08-21] MEDS: SODIUM CHLOR 0.9% 1000 ML INJ 1,000 ML IV SCH ×2 (04:25→16:00)
[2016-08-21 07:51] LABS: AUTOMATED NEUTROPHIL # 10.2 TH/MM3 (1.8-7.7); BASOPHIL % 0.2 % (0.0-2.0); EOSINOPHIL % 0.4 % (0.0-4.0); HEMATOCRIT 32.1 % (39.0-51.0); HEMO FLAGS DIFF FINAL; LYMPHOCYTE # 0.6 TH/MM3 (1.0-4.8); MEAN CELL VOLUME 93.7 FL (80.0-100.0); MEAN CORPUSCULAR HEMOGLOBIN 32.4 PG (27.0-34.0); MEAN CORPUSCULAR HGB CONC 34.6 % (32.0-36.0); MONO % 10.7 % (0.0-8.0); NEUT % 83.7 % (16.0-70.0); PLATELET COUNT 312 TH/MM3 (150-450); RED BLOOD COUNT 3.42 MIL/MM3 (4.50-5.90); RED CELL DISTRIBUTION WIDTH 14.4 % (11.6-17.2); WHITE BLOOD COUNT 12.2 TH/MM3 (4.0-11.0)
[2016-08-21 08:17] LABS: BICARBONATE 33.5 MEQ/L (21.0-32.0); POTASSIUM 3.4 MEQ/L (3.5-5.1)
[2016-08-21] MEDS: predniSONE 20 MG TAB PO SCH (08:53)
[2016-08-21] MEDS: MULTIVITAMIN TAB PO SCH (08:53)
[2016-08-21] MEDS: DILTIAZEM-CD 120 MG CAP ER PO SCH (08:53)
[2016-08-21] MEDS: AZITHROMYCIN 250 MG TAB PO SCH (08:53)
[2016-08-21] MEDS: PANTOPRAZOLE SOD 40 MG DELAYED RELEASE TAB PO SCH (08:53)
[2016-08-21] MEDS: SODIUM CHLORIDE 0.9% FLUSH 5 ML FLUSH FLUSH SCH ×2 (09:00→21:15)
[2016-08-21] MEDS: VANCOMYCIN INJ 1,250 MG in SODIUM CHLOR 0.9% 250 ML INJ 250 ML IV SCH (09:26)
[2016-08-21] MEDS: ONDANSETRON HCL 4 MG/2 ML VIAL IVP PRN ×2 (09:56→21:15)
[2016-08-21 10:08] LABS: BLOOD, URINE TRACE (NEG); GLUCOSE,URINE NEG (NEG); KETONE, URINE 10 mg/dL (NEG); MUCUS URINE FEW /lpf (OCC); NITRITE,URINE NEG (NEG); URINE COLOR YELLOW (YELLW/STRAW)
[2016-08-21 10:10] LABS: COMMENT (UR) CATH-CULTURE IND; CULTURE IF INDICATED CATH CULTURE IND
[2016-08-21 10:11] LABS: BACTERIA, URINE FEW /hpf
[2016-08-21] MEDS ORDERED: VANCOMYCIN INJ 1 MG in SODIUM CHLOR 0.9% 250 ML INJ 250 ML IV SCH (12:00)
--- NOTE | 2016-08-21 12:04 | HHI.PR ---
Subjective Remarks Breathing better. Has some nausea and nonbilious emesis this morning. No abdominal pain. Objective Vitals Vital Signs Date Time Temp Pulse Resp B/P Pulse Ox O2 Delivery O2 Flow Rate FiO2 08/21/16 11:48 97.6 89 24 120/80 96 08/21/16 08:00 99.0 109 24 140/82 95 08/21/16 08:00 111 08/21/16 07:45 95 Nasal Cannula 4.00 08/21/16 07:15 Nasal Cannula 2.00 08/21/16 04:00 98.1 92 20 132/79 97 08/21/16 01:22 101 08/21/16 00:00 98.0 90 20 146/87 98 08/20/16 23:31 99 Nasal Cannula 5.00 08/20/16 23:00 Nasal Cannula 2.00 08/20/16 23:00 150/84 08/20/16 22:46 97.7 102 20 157/98 99 08/20/16 20:42 93 21 130/85 97 Nasal Cannula 2 08/20/16 20:42 17 08/20/16 19:30 103 20 132/75 93 Nasal Cannula 08/20/16 17:09 107 21 135/78 97 Nasal Cannula 2 08/20/16 17:09 98 Nasal Cannula 2 08/20/16 17:08 91 Room Air I/O 08/20/16 08/20/16 08/20/16 08/21/16 08/21/16 08/21/16 07:00 15:00 23:00 07:00 15:00 23:00 Intake Total 768 ml Output Total 400 ml Balance 368 ml Intake IV Total 768 ml Output Urine Total 400 ml # Bowel Movements 0 Result Diagram: 08/21/16 0635 08/21/16 0635 Objective Remarks GENERAL: This is a well-nourished, well-developed patient, in no apparent distress. CARDIOVASCULAR: Regular rate and rhythm RESPIRATORY: Few bibasilar crackles, no wheezes GASTROINTESTINAL: Abdomen soft, enlarged ventral hernia reducible, nondistended. Normal active bowel sounds MUSCULOSKELETAL: Extremities without clubbing, cyanosis, or edema. NEURO: Alert & Oriented x4 to person, place, time, situation. Moves all ext x4 A/P Problem List: (1) Sepsis ICD Code: A41.9 Status: Acute (2) HCAP (healthcare-associated pneumonia) ICD Code: J18.9 Status: Acute (3) COPD exacerbation ICD Code: J44.1 Status: Acute Assessment and Plan 1. sepsis with suspected health care associated pneumonia and probable underlying prehospital urinary tract infection from indwelling Hammond catheter. Continue patient on vancomycin and Zosyn, Zithromax.. Patient presented with leukocytosis and tachycardia in the emergency room. Leukocytosis could also be attributed to his recent prednisone use and taper. Supportive care and IV fluid hydration. 2. Indwelling Hammond catheter due to recent bladder outlet obstructionneed follow-up with urology particular with a history of prostate cancer.Continue with Flomax, urinalysis finally sent to rule out underlying urinary tract infection. Discontinue Hammond catheter for trial voiding, may need to reinsert if continues to retain. 3. COPD, chronic O2 dependence with acute exacerbationcontinue with bronchodilators, steroid taper. 4. Hyperlipidemiacontinue with statin. 5. Reducible large ventral herniapatient has seen general surgery as outpatient follow-up with Jon Roberts, general surgery 6. DVT prophylaxisbilateral SCDs Discharge Planning Home with home health care upon discharge Problem Qualifiers (1) Sepsis: Qualified Code: A41.9 - Sepsis, due to unspecified organism Martha Scales MD Aug 21, 2016 12:04
[2016-08-21] MEDS ORDERED: POTASSIUM CHLORIDE 20 MEQ CONTROLLED RELEASE TAB PO ONE (12:15)
[2016-08-21] MEDS: ENOXAPARIN SODIUM 40 MG/0.4 ML SYRINGE SQ SCH (14:05)
[2016-08-21] MEDS: TAMSULOSIN HCL 0.4 MG CAP PO SCH (21:14)
[2016-08-21] MEDS: SODIUM CHLORIDE 0.9% FLUSH 5 ML FLUSH FLUSH PRN (21:16)
--- NOTE | 2016-08-21 23:37 | EKG ---
Date Performed: 08/20/2016 Time Performed: 12:37:25 PTAGE: 71 years EKG: SINUS TACHYCARDIA WITH OCCASIONAL SUPRAVENTRICULAR PREMATURE COMPLEXES RIGHT BUNDLE BRANCH BLOCK ABNORMAL ECG PREVIOUS TRACING : 08/05/2016 07.53 DOCTOR: Frank Aguayo Interpretating Date/Time 08/21/2016 23:34:28
[2016-08-22] VITALS (9 sets, daily range): BP systolic 125–159; BP diastolic 74–97; PULSE 92–108; RESP 18–22; TEMP 97.7–98.9; O2SAT 93–100
[2016-08-22] MEDS ORDERED: CYCLOBENZAPRINE HCL 10 MG TAB PO ONE (00:45)
[2016-08-22] MEDS: ACETAMINOPHEN/HYDROcodone 325 MG/7.5 MG TAB PO PRN ×4 (03:24→19:49)
[2016-08-22] MEDS: PIPERACIL-TAZO 4.5 GM PREMIX 100 ML IV SCH ×4 (03:25→19:48)
[2016-08-22] MEDS: RESP: ALBUTEROL 2.5 MG/IPRATROPIUM 0.5 MG NEB (SCH) INH ×4 (04:25→21:16)
[2016-08-22] MEDS: SODIUM CHLOR 0.9% 1000 ML INJ 1,000 ML IV SCH ×2 (04:41→16:11)
[2016-08-22] MEDS: RESP: ALBUTEROL 2.5 MG/3 ML NEB (PRN) INH ×2 (07:44→14:13)
[2016-08-22] MEDS: PANTOPRAZOLE SOD 40 MG DELAYED RELEASE TAB PO SCH (08:38)
[2016-08-22] MEDS: VANCOMYCIN INJ 1,250 MG in SODIUM CHLOR 0.9% 250 ML INJ 250 ML IV SCH (08:38)
[2016-08-22] MEDS: predniSONE 20 MG TAB PO SCH (08:38)
[2016-08-22] MEDS: DILTIAZEM-CD 120 MG CAP ER PO SCH (08:39)
[2016-08-22] MEDS: MULTIVITAMIN TAB PO SCH (08:39)
[2016-08-22] MEDS: AZITHROMYCIN 250 MG TAB PO SCH (08:39)
[2016-08-22] MEDS: SODIUM CHLORIDE 0.9% FLUSH 5 ML FLUSH FLUSH SCH ×2 (09:00→19:48)
--- NOTE | 2016-08-22 11:09 | HHI.PR ---
Subjective Remarks Follow-up sepsis/pneumonia 08/22/16-patient seen and examined; currently afebrile and denies any cough production. Trial of catheterization Objective Vitals Vital Signs Date Time Temp Pulse Resp B/P Pulse Ox O2 Delivery O2 Flow Rate FiO2 08/22/16 08:00 98.2 96 20 157/97 97 08/22/16 08:00 Nasal Cannula 4.00 Humidified 08/22/16 07:46 96 Nasal Cannula 4.00 08/22/16 06:00 98.9 108 20 141/74 93 08/22/16 04:26 99 Nasal Cannula 4.00 08/22/16 00:15 98.4 102 20 136/85 97 08/21/16 20:00 97.7 93 20 128/84 97 08/21/16 20:00 Nasal Cannula 4.00 08/21/16 16:00 98.4 100 20 126/71 98 08/21/16 15:11 96 Nasal Cannula 4.00 08/21/16 11:48 97.6 89 24 120/80 96 I/O 08/21/16 08/21/16 08/21/16 08/22/16 08/22/16 08/22/16 07:00 15:00 23:00 07:00 15:00 23:00 Intake Total 768 ml 951 ml 360 ml 2290 ml Output Total 400 ml 500 ml 650 ml 720 ml Balance 368 ml 451 ml -290 ml 1570 ml Intake Oral 360 ml 360 ml 1080 ml IV Total 768 ml 591 ml 1210 ml Output Urine Total 400 ml 500 ml 650 ml 720 ml Bladder Scan Volume Amount 620 ml # Voids 0 # Bowel Movements 0 0 0 Result Diagram: 08/21/16 0635 08/21/16 0635 Imaging Last Impressions Chest X-Ray 08/20/16 1125 Signed Impressions: Service Date/Time: August 11:54 - CONCLUSION: Patchy infiltrate left lung base possible small area of pneumonia. Roverto Townsend MD Objective Remarks GENERAL: NAD SKIN: Warm and dry. HEAD: Normocephalic. EYES: No scleral icterus. No injection or drainage. NECK: Supple, trachea midline. No JVD or lymphadenopathy. CARDIOVASCULAR: Regular rate and rhythm without murmurs, gallops, or rubs. RESPIRATORY: Breath sounds equal bilaterally. No accessory muscle use. GASTROINTESTINAL: Abdomen with huge ventral hernia, distended. MUSCULOSKELETAL: No cyanosis, or edema. BACK: Nontender without obvious deformity. No CVA tenderness. A/P Problem List: (1) Sepsis ICD Code: A41.9 Status: Acute (2) HCAP (healthcare-associated pneumonia) ICD Code: J18.9 Status: Acute (3) COPD exacerbation ICD Code: J44.1 Status: Acute Assessment and Plan 71-year-old male with 1. sepsis with suspected health care associated pneumonia, UTI .Continue patient on vancomycin and Zosyn. Supportive care and IV fluid hydration. 2. Bacteremia: 1#4 positive BC for gram-positive cocci; Repeat Blood culture and continue with current abx 3. Indwelling Hammond catheter due to recent bladder outlet obstructionneed follow-up with urology particular with a history of prostate cancer.Continue with Flomax, trial of catheterization over may reinsert Hammond if no improvement 4. COPD, chronic O2 dependence with acute exacerbationcontinue with bronchodilators, steroid taper. 5. Hyperlipidemiacontinue with statin. 6. Reducible large ventral herniapatient has seen general surgery as outpatient follow-up with Jon Roberts, general surgery 7. DVT prophylaxisbilateral SCDs Problem Qualifiers (1) Sepsis: Qualified Code: A41.9 - Sepsis, due to unspecified organism Eduardo Cuellar MD Aug 22, 2016 11:09
[2016-08-22] MEDS: ENOXAPARIN SODIUM 40 MG/0.4 ML SYRINGE SQ SCH (13:29)
[2016-08-22] MEDS: TAMSULOSIN HCL 0.4 MG CAP PO SCH (19:48)
[2016-08-23] VITALS (10 sets, daily range): BP systolic 108–148; BP diastolic 63–87; PULSE 67–117; RESP 18–22; TEMP 96.4–97.8; O2SAT 93–99
[2016-08-23] MEDS: RESP: ALBUTEROL 2.5 MG/IPRATROPIUM 0.5 MG NEB (SCH) INH ×4 (03:32→20:40)
[2016-08-23] MEDS: ACETAMINOPHEN/HYDROcodone 325 MG/7.5 MG TAB PO PRN ×5 (04:23→23:05)
[2016-08-23] MEDS: PIPERACIL-TAZO 4.5 GM PREMIX 100 ML IV SCH ×4 (04:23→20:27)
[2016-08-23] MEDS: SODIUM CHLOR 0.9% 1000 ML INJ 1,000 ML IV SCH ×3 (05:30→23:18)
[2016-08-23] MEDS: SODIUM CHLORIDE 0.9% FLUSH 5 ML FLUSH FLUSH SCH ×2 (08:43→20:27)
[2016-08-23] MEDS: PANTOPRAZOLE SOD 40 MG DELAYED RELEASE TAB PO SCH (08:43)
[2016-08-23] MEDS: MULTIVITAMIN TAB PO SCH (08:43)
[2016-08-23] MEDS: AZITHROMYCIN 250 MG TAB PO SCH (08:43)
[2016-08-23] MEDS: predniSONE 20 MG TAB PO SCH (08:43)
[2016-08-23] MEDS: DILTIAZEM-CD 120 MG CAP ER PO SCH (08:43)
[2016-08-23] MEDS: VANCOMYCIN INJ 1,250 MG in SODIUM CHLOR 0.9% 250 ML INJ 250 ML IV SCH (08:43)
[2016-08-23] MEDS ORDERED: PHARMACY ORDERED LAB XX ONE (08:45)
[2016-08-23 09:10] LABS: AUTOMATED NEUTROPHIL # 14.7 TH/MM3 (1.8-7.7); BASOPHIL % 0.2 % (0.0-2.0); HEMATOCRIT 25.8 % (39.0-51.0); HEMO FLAGS DIFF FINAL; LYMPH % 4.2 % (9.0-44.0); LYMPHOCYTE # 0.7 TH/MM3 (1.0-4.8); MEAN CELL VOLUME 93.6 FL (80.0-100.0); MEAN CORPUSCULAR HEMOGLOBIN 31.5 PG (27.0-34.0); MEAN CORPUSCULAR HGB CONC 33.7 % (32.0-36.0); MONO % 7.6 % (0.0-8.0); PLATELET COUNT 394 TH/MM3 (150-450); RED BLOOD COUNT 2.76 MIL/MM3 (4.50-5.90); RED CELL DISTRIBUTION WIDTH 14.4 % (11.6-17.2); WHITE BLOOD COUNT 16.7 TH/MM3 (4.0-11.0)
[2016-08-23 09:29] LABS: BICARBONATE 31.8 MEQ/L (21.0-32.0)
--- NOTE | 2016-08-23 10:35 | HHI.PR ---
Subjective Remarks Follow-up sepsis/pneumonia 08/22/16-patient seen and examined; currently afebrile and denies any cough production. Trial of catheterization 08/23/16-patient seen and examined; WBC op, worsening renal indices however patient is afebrile and denies any acute event overnight. Hammond reinserted Objective Vitals Vital Signs Date Time Temp Pulse Resp B/P Pulse Ox O2 Delivery O2 Flow Rate FiO2 08/23/16 09:36 117 08/23/16 08:40 Nasal Cannula 4.00 Humidified 08/23/16 08:00 96.4 110 20 115/79 97 08/23/16 04:15 97.8 104 20 148/87 99 08/23/16 03:34 99 Nasal Cannula 4.00 08/23/16 00:00 97.6 101 18 147/82 99 08/22/16 20:30 97.7 92 20 146/79 98 08/22/16 20:00 Nasal Cannula 4.00 Humidified 08/22/16 16:00 98.3 100 18 159/91 100 08/22/16 12:00 98.2 95 22 125/81 95 08/22/16 11:35 108 I/O 08/22/16 08/22/16 08/22/16 08/23/16 08/23/16 08/23/16 07:00 15:00 23:00 07:00 15:00 23:00 Intake Total 2290 ml 720 ml 100 ml 750 ml Output Total 720 ml 0 ml 800 ml Balance 1570 ml 720 ml 100 ml -50 ml Intake Oral 1080 ml 720 ml 750 ml IV Total 1210 ml 100 ml Output Urine Total 720 ml 0 ml 800 ml Bladder Scan Volume Amount 620 ml 712 ml # Voids 0 # Bowel Movements 0 0 0 Result Diagram: 08/23/16 0737 08/23/16 0737 Imaging Last Impressions Chest X-Ray 08/20/16 1125 Signed Impressions: Service Date/Time: August 11:54 - CONCLUSION: Patchy infiltrate left lung base possible small area of pneumonia. Roverto Townsend MD Objective Remarks GENERAL: NAD SKIN: Warm and dry. HEAD: Normocephalic. EYES: No scleral icterus. No injection or drainage. NECK: Supple, trachea midline. No JVD or lymphadenopathy. CARDIOVASCULAR: Regular rate and rhythm without murmurs, gallops, or rubs. RESPIRATORY: Breath sounds equal bilaterally. No accessory muscle use. GASTROINTESTINAL: Abdomen with huge ventral hernia, distended. MUSCULOSKELETAL: No cyanosis, or edema. BACK: Nontender without obvious deformity. No CVA tenderness. A/P Problem List: (1) Sepsis ICD Code: A41.9 Status: Acute (2) HCAP (healthcare-associated pneumonia) ICD Code: J18.9 Status: Acute (3) COPD exacerbation ICD Code: J44.1 Status: Acute (4) Acute kidney injury ICD Code: N17.9 Status: Acute (5) Metabolic alkalosis ICD Code: E87.3 Status: Acute Assessment and Plan 71-year-old male with 1. sepsis with suspected health care associated pneumonia, UTI .Continue patient on vancomycin and Zosyn. Supportive care and IV fluid hydration. 2. Bacteremia: 1#4 positive BC for staph epidermidis and likely a contaminant; Repeat Blood culture pending and continue with current abx 3. Indwelling Hammond catheter due to recent bladder outlet obstructionneed follow-up with urology particular with a history of prostate cancer.Continue with Flomax, trial of catheterization over may reinsert Hammond if no improvement 4. COPD, chronic O2 dependence with acute exacerbationcontinue with bronchodilators, steroid taper from 40 mg daily to 20 mg on 08/24/16.Will Need a taper dose on discharge 5. Hyperlipidemiacontinue with statin. 6. Reducible large ventral herniapatient has seen general surgery as outpatient follow-up with Jon Roberts, general surgery 7. DVT prophylaxisbilateral SCDs 8. Leukocytosis: Worsening WBC likely secondary to steroid therapy +/-current infection, continue to monitor. Will taper steroid 9. Acute renal failure: Worsening renal indices, increase IV fluid rate to 125cc/hr and monitor BUN and creatinine 10. Metabolic alkalosis: Resolved. Discharge Planning Likely discharge with home health care 08/24/16 Problem Qualifiers (1) Sepsis: Qualified Code: A41.9 - Sepsis, due to unspecified organism Eduardo Cuellar MD Aug 23, 2016 10:35
--- NOTE | 2016-08-23 10:38 | HHI.FF ---
Face to Face Verification Diagnosis: (1) COPD exacerbation (2) Sepsis (3) Metabolic alkalosis (4) HCAP (healthcare-associated pneumonia) (5) Acute kidney injury Physical Therapy Order: Evaluate and Treat Home Health Nursing Order: Signs/symptoms of disease process I have seen patient Ravindra Thomason on 08/23/16. My clinical findings support the need for the requested home health care services because: Deconditioned w/ increased weakness I certify that my clinical findings support that this patient is homebound because: Poor cardiac reserve Eduardo Cuellar MD Aug 23, 2016 10:38
[2016-08-23] MEDS: MAGNESIUM HYDROXIDE SUSP 30 ML CUP PO PRN (13:54)
[2016-08-23] MEDS: ENOXAPARIN SODIUM 40 MG/0.4 ML SYRINGE SQ SCH (13:54)
[2016-08-23] MEDS: TAMSULOSIN HCL 0.4 MG CAP PO SCH (20:27)
[2016-08-24] VITALS (10 sets, daily range): BP systolic 98–133; BP diastolic 61–82; PULSE 76–99; RESP 20–24; TEMP 95.4–97.4; O2SAT 92–100
[2016-08-24] MEDS: RESP: ALBUTEROL 2.5 MG/IPRATROPIUM 0.5 MG NEB (SCH) INH ×3 (02:49→21:38)
[2016-08-24] MEDS: PIPERACIL-TAZO 4.5 GM PREMIX 100 ML IV SCH ×2 (03:27→08:40)
[2016-08-24] MEDS ORDERED: EPINEPHrine HCL (1:10,000) 1 MG/10 ML SYRINGE IV ONE ×2 (05:00)
[2016-08-24] MEDS ORDERED: AMIODARONE HCL 150 MG/3 ML VIAL IV ONE (05:00)
[2016-08-24] MEDS ORDERED: SODIUM BICARBONATE 8.4% INJ 50 MEQ/50 ML SYR IV ONE (05:00)
[2016-08-24] MEDS ORDERED: CALCIUM CHLORIDE 10% SOLN 1 GRAM/10 ML SYR IV ONE (05:00)
[2016-08-24 07:12] LABS: BASOPHIL % 0.2 % (0.0-2.0); HEMATOCRIT 21.9 % (39.0-51.0); LYMPHOCYTE # 0.8 TH/MM3 (1.0-4.8); MEAN CELL VOLUME 92.8 FL (80.0-100.0); MEAN CORPUSCULAR HEMOGLOBIN 31.9 PG (27.0-34.0); MEAN CORPUSCULAR HGB CONC 34.4 % (32.0-36.0); MONO % 7.2 % (0.0-8.0); NEUT % 89.6 % (16.0-70.0); PLATELET COUNT 353 TH/MM3 (150-450); RED BLOOD COUNT 2.36 MIL/MM3 (4.50-5.90); RED CELL DISTRIBUTION WIDTH 14.2 % (11.6-17.2); WHITE BLOOD COUNT 25.7 TH/MM3 (4.0-11.0)
[2016-08-24 07:16] LABS: HEMO FLAGS AUTO DIFF
[2016-08-24] MEDS: ACETAMINOPHEN/HYDROcodone 325 MG/7.5 MG TAB PO PRN ×2 (07:22→11:35)
[2016-08-24 07:40] LABS: BICARBONATE 31.8 MEQ/L (21.0-32.0); POTASSIUM 3.7 MEQ/L (3.5-5.1)
[2016-08-24 08:01] LABS: BANDS 18 % (0-6); CORRECTED NUCLEATED RBC 2 /100 WBC (0-0); NEUTROPHIL # MANUAL DIFF 23.6 TH/MM3 (1.8-7.7); PLATELET ESTIMATE SMEAR NORMAL (NORMAL); PLATELET MORPHOLOGY NORMAL (NORMAL); POLYS (SEG NEUTROPHILS) 74 % (16-70); SCAN/DIFF FINAL DIFF MANUAL; WBC DIFF SAMPLE 100
[2016-08-24 08:02] LABS: TARGET CELLS 1+ (NORMAL)
[2016-08-24] MEDS: PANTOPRAZOLE SOD 40 MG DELAYED RELEASE TAB PO SCH (08:41)
[2016-08-24] MEDS: SODIUM CHLORIDE 0.9% FLUSH 5 ML FLUSH FLUSH SCH ×2 (08:41→20:05)
[2016-08-24] MEDS: MULTIVITAMIN TAB PO SCH (08:41)
[2016-08-24] MEDS: DILTIAZEM-CD 120 MG CAP ER PO SCH (08:41)
[2016-08-24] MEDS: SODIUM CHLOR 0.9% 1000 ML INJ 1,000 ML IV SCH ×3 (08:42→23:18)
[2016-08-24] MEDS ORDERED: predniSONE 20 MG TAB PO SCH (09:00)
[2016-08-24] MEDS ORDERED: VANCOMYCIN 1,500 MG/NS 500 ML IV ONE ×2 (12:00)
[2016-08-24] MEDS: ENOXAPARIN SODIUM 40 MG/0.4 ML SYRINGE SQ SCH (14:30)
[2016-08-24] MEDS: MAGNESIUM HYDROXIDE SUSP 30 ML CUP PO PRN (14:30)
[2016-08-24] MEDS: RESP: ALBUTEROL 2.5 MG/IPRATROPIUM 0.5 MG NEB (PRN) INH (14:34)
--- NOTE | 2016-08-24 15:51 | HHI.PR ---
Addendum to Inpatient Note Addendum Reason: Additional Documentation Additional Information Residents responded to code blue. On arrival, customer field representative at bedside. Assisted in chest compressions. Patient achieved ROSC at 1530. Transfer to ICU for ongoing management. Ovi Bueno Dr., MD R1 Aug 24, 2016 15:51
[2016-08-24 16:07] LABS: BLOOD GAS BASE EXCESS -1.3 mmol/L (-2-2); BLOOD GAS CARBOXYHEMOGLOBIN 1.5 % (0-4); BLOOD GAS HCO3 24 mmol/L (22-26); BLOOD GAS O2 HGB SATURATION 98 % (90-100); BLOOD GAS OXYGEN CONTENT 8.9 Vol % (12.0-20.0); BLOOD GAS PCO2 50 mmHg (38-42); BLOOD GAS PO2 445 mmHg (61-120); BLOOD GAS TOTAL HGB 5.6 G/DL (12.0-16.0); TEMP CORR TO 98.6
[2016-08-24 16:08] LABS: CRITICAL VALUE YES; DRAW SITE RT RADIAL; FIO2 100 %; NUMBER OF ARTERIAL PUNCTURES 1; OXYGEN DEVICE VENTILATOR; STAT YES; ULNAR PULSE PRESENT; VENT SETTINGS 500/20/PEEP10
[2016-08-24 16:42] LABS: AUTOMATED NEUTROPHIL # 30.2 TH/MM3 (1.8-7.7); BASOPHIL # 0.1 TH/MM3 (0-0.2); BASOPHIL % 0.3 % (0.0-2.0); EOSINOPHIL % 0.1 % (0.0-4.0); LYMPH % 4.9 % (9.0-44.0); LYMPHOCYTE # 1.7 TH/MM3 (1.0-4.8); MEAN CELL VOLUME 95.6 FL (80.0-100.0); MEAN CORPUSCULAR HEMOGLOBIN 30.8 PG (27.0-34.0); MEAN CORPUSCULAR HGB CONC 32.2 % (32.0-36.0); MONO % 5.5 % (0.0-8.0); NEUT % 89.2 % (16.0-70.0); PLATELET COUNT 316 TH/MM3 (150-450); RED BLOOD COUNT 1.74 MIL/MM3 (4.50-5.90); RED CELL DISTRIBUTION WIDTH 14.3 % (11.6-17.2); WHITE BLOOD COUNT 33.9 TH/MM3 (4.0-11.0)
[2016-08-24] MEDS ORDERED: CHLORHEXIDINE GLUCONATE 2 % 1 PACK (2 CLOTHS) TOP PRN (16:45)
[2016-08-24] MEDS ORDERED: MISCELLANEOUS NURSING INFORMATION XX SCH (16:45)
[2016-08-24] MEDS ORDERED: ONDANSETRON HCL 4 MG/2 ML VIAL IV PRN (16:45)
[2016-08-24] MEDS ORDERED: RESP: ALBUTEROL 2.5 MG/IPRATROPIUM 0.5 MG NEB (PRN) INH (16:45)
[2016-08-24 16:51] LABS: HEMATOCRIT 16.7 % (39.0-51.0); HEMO FLAGS AUTO DIFF
[2016-08-24] MEDS ORDERED: SODIUM CHLOR 0.9% 250 ML INJ 250 ML IV ONE (17:00)
--- NOTE | 2016-08-24 17:07 | PD.CONS ---
HPI History of Present Illness This is a 71 year old male with a hx of COPD (O2 Dependent) who is currently hospitalized for sepsis, suspected HCAP and was a CODE BLUE this afternoon. He received ACLS protocol and had return of spontaneous circulation after 15 minutes. During the code, he vomited a large amount of dark maroon emesis. OGT was placed to suction and he immediately had several canisters of dark maroon blood. He is currently in the ICU on vasopressors, sedated on the ventilator and therefore the history has been obtained from the EMR and by the personnel counselor who is at the bedside. He was admitted on 08/20/16 and had a HH of 11.4/34.1 at that time. This morning, this was 7.5/21.9 and on his blood gases during the code, he was noted to have a Hgb of 5.6. 2 units of emergency blood have been ordered while type/cross, repeat labs are pending. According to the chart, he has a hx of perforated gastric ulcer. He was seen by our service last month and was evaluated with EGD (08/10/16)---> mild gastritis, nodules in the EG junction, moderate esophagitis, normal endoscopy otherwise, retroflexed views revealed no abnormalities. Pathology revealed mild active chronic gastritis, nodule GE junction with gastric mucosa with mild chronic inflammation of the lamina propria and foveolar hyperplasia, acutely inflamed squamous mucosa and detached fragments of acute inflammatory exudate multiple budding yeast and pseudohyphae are present in exudatge, acutely ulcerated mucosa of distal esophagus with numerous budding yeast and pseudohyphae invading tissue, consistent with mary kay esophagitis. Colonoscopy (08/11/16) with polypectomy and ablation of polyp in ascending colon with hot snare. Ascending colon with markedly cauterized colonic mucosa with features suggestive of hyperplastic polyp. PFSH Past Medical History Hypertension COPD O2 dependent Prostate cancer Bladder outlet obstruction Hyperlipidemia Recent mary kay esophagitis Hx perforated ulcer Colon polyp Past Surgical History Ventral hernia Appendectomy Surgery for perforated gastric ulcer surgery Cataract EGD/Colonoscopy Coded Allergies: *MDRO Multi-Drug Resistant Organism (Verified Adverse Reaction, Unknown, ) MRSA (abdominal wound) 2015 per 04/10/2015 H&P MRSA PCR Screen #1 NEGATIVE - 08/21/16 Medications Allergies Coded Allergies Type Severity Reaction Last Updated Verified *MDRO Multi-Drug Resistant Organism Adverse Reaction Unknown 08/24/16 Yes Active Scripts Medications Dose Route/Sig Days Date Category Dose Instructions Prednisone 5 Mg Tab 5 Mg PO DIRECTED 6 08/11/16 Rx 20 mg po daily for two days then 10 mg po daily for two days then 5 mg po daily for two days then stop. Cardizem CD 24 HR (Diltiazem CD 24 HR) 120 Mg Caper 120 Mg PO DAILY 08/10/16 Rx Ceftin (Cefuroxime Axetil) 500 Mg Tab 500 Mg PO Q12HR 5 08/10/16 Rx Symbicort Inh (Budesonide/Formoterol Fumarate) 160-4.5 Mcg/Act Aero 2 Puff INH BID 08/10/16 Rx Multi Vitamin (Multiple Vitamin) 1 Tab Tab 1 Tab PO DAILY 08/04/16 Reported Flomax (Tamsulosin HCl) 0.4 Mg Cap 0.4 Mg PO HS 08/04/16 Reported Protonix (Pantoprazole Sodium) 40 Mg Tab 40 Mg PO DAILY 08/04/16 Reported Trazodone (Trazodone HCl) 50 Mg Tab 50-100 Mg PO HS 08/04/16 Reported [place] (Hydrocodone-Acetaminophen) 10-325 Mg Tab 1-2 Tab PO Q4H PRN 08/04/16 Reported Duoneb (Ipratropium-Albuterol Neb) 0.5-2.5 Mg/3 Ml Neb 1 Vial NEB QID PRN 08/04/16 Reported Combivent Respimat Inh (Ipratropium-Albuterol Inh) 20-100 [facility]/Act Aero 1 Puff INH Q4HR PRN 08/04/16 Reported Family History Unable to obtain Social History Smokes one pack of cigarettes per day according to EMR Review of Systems ROS Unable to obtain GI Exam Vitals I&O Vital Signs Date Time Temp Pulse Resp B/P Pulse Ox O2 Delivery O2 Flow Rate FiO2 08/24/16 15:55 100 100 08/24/16 14:00 94 08/24/16 12:00 90 20 121/82 94 08/24/16 08:45 Nasal Cannula 4.00 Humidified 08/24/16 08:00 97.3 99 20 109/76 94 08/24/16 04:00 97.4 95 20 113/69 93 08/24/16 00:00 97.3 94 22 128/78 94 08/23/16 20:40 93 Nasal Cannula 4.00 08/23/16 20:00 Nasal Cannula 4.00 Humidified 08/23/16 20:00 97.4 89 22 117/76 95 I/O 08/23/16 08/23/16 08/23/16 08/24/16 08/24/16 08/24/16 07:00 15:00 23:00 07:00 15:00 23:00 Intake Total 750 ml 1320 ml 648 ml Output Total 800 ml 125 ml 450 ml Balance -50 ml 1195 ml 648 ml -450 ml Intake Oral 750 ml 680 ml IV Total 640 ml 648 ml Output Urine Total 800 ml 125 ml 450 ml Bladder Scan Volume Amount 712 ml 712 ml # Bowel Movements 0 0 Imaging Last Impressions Chest X-Ray 08/20/16 1125 Signed Impressions: Service Date/Time: August 11:54 - CONCLUSION: Patchy infiltrate left lung base possible small area of pneumonia. Roverto Townsend MD Laboratory Test 08/24/16 08/24/16 06:05 15:57 White Blood Count 25.7 TH/MM3 Red Blood Count 2.36 MIL/MM3 Hemoglobin 7.5 GM/DL Hematocrit 21.9 % Mean Corpuscular Volume 92.8 FL Mean Corpuscular Hemoglobin 31.9 PG Mean Corpuscular Hemoglobin 34.4 % Concent Red Cell Distribution Width 14.2 % Platelet Count 353 TH/MM3 Mean Platelet Volume 9.0 FL Neutrophils (%) (Auto) 89.6 % Lymphocytes (%) (Auto) 3.0 % Monocytes (%) (Auto) 7.2 % Eosinophils (%) (Auto) 0.0 % Basophils (%) (Auto) 0.2 % Neutrophils # (Auto) 23.0 TH/MM3 Lymphocytes # (Auto) 0.8 TH/MM3 Monocytes # (Auto) 1.9 TH/MM3 Eosinophils # (Auto) 0.0 TH/MM3 Basophils # (Auto) 0.0 TH/MM3 CBC Comment AUTO DIFF Differential Total Cells 100 Counted Neutrophils % (Manual) 74 % Band Neutrophils % 18 % Lymphocytes % 3 % Monocytes % 5 % Neutrophils # (Manual) 23.6 TH/MM3 Nucleated Red Blood Cells 2 /100 WBC Differential Comment FINAL DIFF MANUAL Platelet Estimate NORMAL Platelet Morphology Comment NORMAL Target Cells 1+ Sodium Level 132 MEQ/L Potassium Level 3.7 MEQ/L Chloride Level 84 MEQ/L Carbon Dioxide Level 31.8 MEQ/L Anion Gap 16 MEQ/L Blood Urea Nitrogen 73 MG/DL Creatinine 2.14 MG/DL Estimat Glomerular Filtration 31 ML/MIN Rate Random Glucose 123 MG/DL Calcium Level 8.8 MG/DL Random Vancomycin Level 1.5 COMMENT Blood Gas Puncture Site RT RADIAL Blood Gas Patient Temperature 98.6 Blood Gas HCO3 24 mmol/L Blood Gas Base Excess -1.3 mmol/L Blood Gas Oxygen Saturation 98 % Arterial Blood pH 7.31 Arterial Blood Partial 50 mmHg Pressure CO2 Arterial Blood Partial 445 mmHg Pressure O2 Arterial Blood Oxygen Content 8.9 Vol % Arterial Blood 1.5 % Carboxyhemoglobin Arterial Blood Methemoglobin 1.0 % Blood Gas Hemoglobin 5.6 G/DL Oxygen Delivery Device VENTILATOR Blood Gas Ventilator Setting 500/20/PEEP10 Blood Gas Inspired Oxygen 100 % Date/Time Procedure Status Source Growth 08/22/16 12:45 Aerobic Blood Culture - Preliminary Resulted Blood Peripheral NO GROWTH IN 2 DAYS 08/22/16 12:45 Anaerobic Blood Culture - Preliminary Resulted Blood Peripheral NO GROWTH IN 2 DAYS 08/21/16 09:50 Urine Culture - Final Complete Urine Catheterized Urine NO GROWTH IN 48 HOURS. 08/20/16 12:32 Aerobic Blood Culture - Final Resulted Blood Peripheral Staphylococcus Epidermidis 08/20/16 12:32 Anaerobic Blood Culture - Preliminary Resulted Blood Peripheral NO GROWTH IN 4 DAYS Physical Examination HEENT: Normocephalic; atraumatic; no jaundice CHEST: Resp even. diminished. OETT to vent CARDIAC: Tachycardia, hypotensive ABDOMEN: Soft, no hepatosplenomegaly; bowel sounds are present in all four quadrants. Large ventral hernia reducible SKIN: Skin dusky, cool to touch, dry ROLLER HAND: Unresponsive Assessment and Plan Plan ASSESSMENT: - Massive GIB with older appearing dark maroon gastric secretions. Pt is s/p CODE BLUE, vomiting large amount of dark maroon secretions, OGT placed to suction and immediately got out several canisters of dark maroon, almost black secretions. HH on admission 08/20 was 11.4/34.1 at that time. This morning, it was 7.5/21.9 and on his blood gases during the code, he was noted to have a Hgb of 5.6. 2 units of emergency blood have been ordered while type/cross, repeat labs are pending. According to the chart, he has a hx of perforated gastric ulcer. Recent EGD (08/10/16)---> mild gastritis, nodules in the EG junction, moderate esophagitis, normal endoscopy otherwise , retroflexed views revealed no abnormalities. Pathology revealed mild active chronic gastritis, nodule GE junction with gastric mucosa with mild chronic inflammation of the lamina propria and foveolar hyperplasia, acutely inflamed squamous mucosa and detached fragments of acute inflammatory exudate multiple budding yeast and pseudohyphae are present in exudatge, acutely ulcerated mucosa of distal esophagus with numerous budding yeast and pseudohyphae invading tissue, consistent with mary kay esophagitis. Colonoscopy (08/11/16) with polypectomy and ablation of polyp in ascending colon with hot snare. Ascending colon with markedly cauterized colonic mucosa with features suggestive of hyperplastic polyp. NPO. OGT to LIWS. Protonix Gtt. Transfuse. - Anemia secondary acute blood loss. ABG Hgb 5.6. 2 units of emergency release blood ordered. Repeat labs pending. - Recent mary kay esophagitis. Add diflucan, Protonix gtt. - S/P CODE BLUE. Pt with ROSC after 15 MN. Now intubated in unit on vasopressors. - Acute respiratory failure with COPD and suspected HCAP. Vent, Nebs, Abx per [facility] - Large Ventral hernia, reducible. Has seen Dr. Roberts in past. PLAN: - NPO - OGT to LIWS - Protonix Gtt - Add diflucan for recent mary kay esophagitis, but will need to monitor lfts, may have some degree of shocked liver from code - Agree with transfusion - Monitor HH - Transfuse as necessary - Pt currently in unit, s/p code, unstable for procedures. Consider EGD after transfused and stabilized - Supportive care - Further recommendations to follow based on results of above - PT seen and examined by Dr. Radford and myself and this note is written on his behalf Ronna Aldrich Aug 24, 2016 17:07
[2016-08-24] MEDS ORDERED: CALCIUM GLUCONATE INJ 2 GM in DEXTROSE 5% IN WATER 100ML INJ 100 ML IV ONE ×2 (17:15)
[2016-08-24 17:19] LABS: BICARBONATE 28.2 MEQ/L (21.0-32.0); POTASSIUM 3.3 MEQ/L (3.5-5.1)
[2016-08-24 17:22] LABS: BANDS 14 % (0-6); METAMYELOCYTES 1 % (0-1); MYELOCYTES 3 % (0-0); NEUTROPHIL # MANUAL DIFF 27.8 TH/MM3 (1.8-7.7); PLATELET ESTIMATE SMEAR NORMAL (NORMAL); PLATELET MORPHOLOGY NORMAL (NORMAL); POLYS (SEG NEUTROPHILS) 64 % (16-70); SCAN/DIFF FINAL DIFF MANUAL; WBC DIFF SAMPLE 100
[2016-08-24] MEDS: MIDAZOLAM 100 MG/ML INJ 100 ML IV SCH (17:31)
[2016-08-24] MEDS: FLUCONAZOLE 200 MG PREMIX BAG 100 ML IV SCH (17:31)
[2016-08-24] MEDS: PIPERACIL-TAZO 3.375 GM PREMIX 50 ML IV SCH ×2 (17:31→20:05)
[2016-08-24] MEDS: HYDROCORTISONE SOD SUCCINATE 100 MG VIAL IV PUSH SCH ×2 (17:31→18:00)
--- NOTE | 2016-08-24 17:37 | RADRPT ---
EXAM DATE/TIME: 08/24/2016 16:29 [facility] COMPARISON: CHEST SINGLE AP, August 20, 2016, 11:54. INDICATIONS : Post intubation. Post code. MEDICAL HISTORY : Chronic obstructive pulmonary disease. Emphysema SURGICAL HISTORY : None. ENCOUNTER: Initial ACUITY: 1 day PAIN SCORE: Non-responsive. LOCATION: Bilateral chest FINDINGS: Portable AP views of the chest demonstrate a normal-sized cardiac silhouette with calcification of th e aorta. Endotracheal tube is present with distal tip measuring 6.3 cm from the michele. EKG lines ove rlie the patient. There is mild patchy airspace consolidation in the lower lobes bilaterally, on the right and increased on the left. No pneumothorax or pleural effusion is appreciated. CONCLUSION: 1. Endotracheal tube is in appropriate position with tip measuring 6.3 cm from the michele. 2. Mild bibasilar airspace consolidation that is new on the right and increased on the left. Lex Malik MD on August 24, 2016 at 17:34 Board Certified Radiologist. This report was verified electronically.
[2016-08-24] MEDS ORDERED: PANTOPRAZOLE INJ 80 MG in SODIUM CHLORIDE 0.9% INJ 35 ML IV ONE (17:45)
--- NOTE | 2016-08-24 17:46 | RADRPT ---
EXAM DATE/TIME: 08/24/2016 17:19 [facility] COMPARISON: CT ABDOMEN & PELVIS W/O CONTRAST, August 04, 2016, 1:07. INDICATIONS : Abdominal distention. MEDICAL HISTORY : None. SURGICAL HISTORY : None. ENCOUNTER: Initial ACUITY: 1 day PAIN SCORE: Non-responsive. LOCATION: Bilateral abdomen. FINDINGS: The exam is limited secondary to motion artifact which limits the interpretation. There is small marcy l dilatation which may reflect ileus or obstruction. No organomegaly is evident. No free air is ident ified. Left femoral vein catheter is in place. CONCLUSION: 1. Small bowel dilatation which reflect ileus or obstruction. Followup examination is recommended if clinically indicated. Gareth Escalante MD on August 24, 2016 at 17:44 Board Certified Radiologist. This report was verified electronically.
--- NOTE | 2016-08-24 17:54 | PD.CONS ---
HPI Service Critical Care Medicine Consult Requested By Primary Care Physician Non-Staff History of Present Illness History of Present Illness 71 Year-old male with a medical history significant for COPD on home oxygen who was recently admitted with suspected sepsis/H And was initiated on IV antibiotics and steroids. He had recently been evaluated by GI and underwent EGD on 08/10/2016 and was found to have moderate esophagitis, mild gastritis with pathology subsequently showing Mary Kay esophagitis as well as colonoscopy on 08/11/2016 with polypectomy and ablation of polyp in ascending colon with hot snare. Patient has been dealing with constipation since his admission. Today when he was trying to have a bowel movement he suddenly became less responsive and then had a large emesis which resulted in aspiration and hemodynamic collapse. Patient initially had large volume emesis with dark maroon blood. CODE BLUE cardiac arrest code was activated. On my arrival patient was in bed CPR had been initiated. Significant gastric contents was still being suctioned out of his oral cavity. ACLS protocol was continued. Patient was intubated following vigorous suctioning of gastric contents from oral cavity as well as with placement of NG tube which is hooked up to suction and about 1.5 L of gastric contents being suctioned out which appeared to be dark maroon in color. Patient initially had a pulse when CODE BLUE was called and subsequently went in PEA arrest followed by asystole during ACLS and then V. fib for which he was defibrillated with 200 J 1, CPR/ACLS protocol was continued and patient eventually had return of spontaneous circulation after about 15 minutes of CPR/ ACLS. Patient was transferred to [facility] and placed on mechanical ventilation. I emergently placed left femoral central line for central vascular access and he was started on Levophed for pressor support. 2 units of O- 1 crossmatch blood were ordered and transfused stat. He also received 1 L of normal saline bolus following return of spontaneous circulation. Stat labs were ordered. His hemoglobin on ABG done post resuscitation was 5.6. I did order Protonix 80 mg IV stat followed by 8 mg per hour IV infusion. Patient remained encephalopathic though was minimally responsive following transfer to the ICU. GI consult was requested and I spoke with Dr. Zamarripa at bedside on his arrival. History was obtained by reviewing records, discussion with family/ GI as well as nursing staff. According to patient's daughter he has not been doing well for the last few months in terms of his breathing and has been using his home oxygen more often. He gets extremely short of breath even with the least exertion. PFSH Past Medical History Hypertension COPD O2 dependent Prostate cancer Bladder outlet obstruction Hyperlipidemia Recent mary kay esophagitis Hx perforated ulcer Colon polyp Past Surgical History Ventral hernia Appendectomy Surgery for perforated gastric ulcer surgery Cataract EGD/Colonoscopy Coded Allergies: *MDRO Multi-Drug Resistant Organism (Verified Adverse Reaction, Unknown, ) MRSA (abdominal wound) 2015 per 04/10/2015 H&P MRSA PCR Screen #1 NEGATIVE - 08/21/16 Medications Allergies Coded Allergies Type Severity Reaction Last Updated Verified *MDRO Multi-Drug Resistant Organism Adverse Reaction Unknown 08/24/16 Yes Active Scripts Medications Dose Route/Sig Days Date Category Dose Instructions Prednisone 5 Mg Tab 5 Mg PO DIRECTED 6 08/11/16 Rx 20 mg po daily for two days then 10 mg po daily for two days then 5 mg po daily for two days then stop. Cardizem CD 24 HR (Diltiazem CD 24 HR) 120 Mg Caper 120 Mg PO DAILY 08/10/16 Rx Ceftin (Cefuroxime Axetil) 500 Mg Tab 500 Mg PO Q12HR 5 08/10/16 Rx Symbicort Inh (Budesonide/Formoterol Fumarate) 160-4.5 Mcg/Act Aero 2 Puff INH BID 08/10/16 Rx Multi Vitamin (Multiple Vitamin) 1 Tab Tab 1 Tab PO DAILY 08/04/16 Reported Flomax (Tamsulosin HCl) 0.4 Mg Cap 0.4 Mg PO HS 08/04/16 Reported Protonix (Pantoprazole Sodium) 40 Mg Tab 40 Mg PO DAILY 08/04/16 Reported Trazodone (Trazodone HCl) 50 Mg Tab 50-100 Mg PO HS 08/04/16 Reported [place] (Hydrocodone-Acetaminophen) 10-325 Mg Tab 1-2 Tab PO Q4H PRN 08/04/16 Reported Duoneb (Ipratropium-Albuterol Neb) 0.5-2.5 Mg/3 Ml Neb 1 Vial NEB QID PRN 08/04/16 Reported Combivent Respimat Inh (Ipratropium-Albuterol Inh) 20-100 Intermediate/Act Aero 1 Puff INH Q4HR PRN 08/04/16 Reported Current Medications Vancomycin HCl 1000 mg/Sodium Chloride 250 ml @ 250 mls/hr ONCE ONCE IV Last administered on 08/20/16 13:12; Start 08/20/16 at 12:45; Stop 08/20/16 at 13:44; Status DC Piperacillin Sod/ Tazobactam Sod (Zosyn 3.375 Gm Premix) 50 ml @ 100 mls/hr ONCE ONCE IV Last administered on 08/20/16 15:03; Start 08/20/16 at 12:45; Stop 08/20/16 at 13:14; Status DC Albuterol/ Ipratropium 1 ampule 1 ampule ONCE ONCE INH Last administered on 13:38; Start 08/20/16 at 12:45; Stop 08/20/16 at 12:50; Status DC Sodium Chloride (NS 1000 ml Inj) 1,000 ml @ 999 mls/hr BOLUS ONCE IV Last administered on 08/20/16 13:12; Start 08/20/16 at 13:00; Stop 08/20/16 at 14:00; Status DC Morphine Sulfate (Morphine Inj) 4 mg ONCE ONCE IV PUSH Last administered on 15:03; Start 08/20/16 at 14:15; Stop 08/20/16 at 14:16; Status DC Ondansetron HCl (Zofran Inj) 4 mg ONCE ONCE IV PUSH Last administered on 15:03; Start 08/20/16 at 14:15; Stop 08/20/16 at 14:16; Status DC IV Flush (NS Flush) 2 ml UNSCH PRN FLUSH FLUSH AFTER USING IV ACCESS Last administered on 08/21/16 21:16; Start 08/20/16 at 14:30 IV Flush (NS Flush) 2 ml BID FLUSH Last administered on 08/23/16 08:43; Start 08/20/16 at 21:00 Acetaminophen (Tylenol) 650 mg Q4H PRN PO TEMP > 100.4; Start 08/20/16 at 14:30 Ondansetron HCl (Zofran Inj) 4 mg Q6H PRN IVP NAUSEA OR VOMITING Last administered on 08/21/16 21:15; Start 08/20/16 at 14:30 Magnesium Hydroxide (Milk Of Magnesia Liq) 30 ml Q12H PRN PO CONSTIPATION Last administered on 08/24/16 14:30; Start 08/20/16 at 14:30 Enoxaparin Sodium (Lovenox Inj) 40 mg Q24H SQ Last administered on 08/24/16 14: 30; Start 08/20/16 at 15:00; Stop 08/24/16 at 16:41; Status DC Naloxone HCl 0.4 mg 0.4 mg UNSCH PRN IV SEE LABEL COMMENTS; Start 08/20/16 at 14 :30; Stop 08/20/16 at 17:59; Status DC Piperacillin Sod/ Tazobactam Sod (Zosyn 4.5 Gm Premix) 100 ml @ 200 mls/hr Q6H IV Last administered on 08/24/16 08:40; Start 08/20/16 at 21:00; Stop 08/24/16 at 11:10; Status DC Azithromycin 500 mg 500 mg DAILY PO Last administered on 08/23/16 08:43; Start 08/21/16 at 09:00; Stop 08/23/16 at 10:32; Status DC Vancomycin HCl/ Sodium Chloride (Vancomycin Inj/ NS 250 ml Inj) 250.01 ml @ 262.5 mls/hr DAILY IV ; Start 08/21/16 at 12:00; Status UNV Albuterol/ Ipratropium (Duoneb Neb) 1 ampule Q4HR NEB PRN INH SHORTNESS OF BREATH Last administered on 08/24/16 14:34; Start 08/20/16 at 14:30 Guaifenesin/ Dextromethorphan 10 ml 10 ml Q4H PRN PO COUGH; Start 08/20/16 at 14 :30 Pharmacy Profile Note 0 ml @ 0 mls/hr UNSCH XX ; Start 08/20/16 at 14:30 Sodium Chloride 1,000 ml @ 125 mls/hr Q8H IV Last administered on 08/24/16 08: 42; Start 08/20/16 at 15:00 Vancomycin HCl/ Sodium Chloride (Vancomycin Inj/ NS 250 ml Inj) 262.5 ml @ 250 mls/hr Q24H IV Last administered on 08/23/16 08:43; Start 08/21/16 at 09:00; Stop 08/24/16 at 11:13; Status DC Miscellaneous Information SPECIFIC LAB TO BE DRAWN:VANCOMYCIN TROUGH DATE TO... ONCE ONCE XX Last administered on 08/23/16 08:42; Start 08/23/16 at 08:45; Stop 08/23/16 at 08:46; Status DC Diltiazem HCl (Cardizem Cd) 120 mg DAILY PO Last administered on 08/24/16 08:41 ; Start 08/21/16 at 09:00; Stop 08/24/16 at 16:41; Status DC Multivitamins (Theragran) 1 tab DAILY PO Last administered on 08/24/16 08:41; Start 08/21/16 at 09:00 Pantoprazole Sodium (Protonix) 40 mg DAILY PO Last administered on 08/24/16 08: 41; Start 08/21/16 at 09:00; Stop 08/24/16 at 16:41; Status DC Tamsulosin HCl (Flomax) 0.4 mg HS PO Last administered on 08/23/16 20:27; Start 08/20/16 at 21:00; Stop 08/24/16 at 16:41; Status DC Albuterol/ Ipratropium (Duoneb Neb) 1 ampule Q6HR NEB INH Last administered on 08/23/16 20:40; Start 08/20/16 at 22:00 Albuterol Sulfate (Albuterol Neb) 2.5 mg Q2HR NEB PRN INH SHORTNESS OF BREATH Last administered on 08/22/16 14:13; Start 08/20/16 at 17:45 Prednisone (Deltasone) 40 mg DAILY PO Last administered on 08/23/16 08:43; Start 08/21/16 at 09:00; Stop 08/23/16 at 10:37; Status DC Acetaminophen (Tylenol) 650 mg Q6H PRN PO PAIN SCALE 1 TO 2; Start 08/20/16 at 17:45 Acetaminophen/ Hydrocodone Bitart ([place] 5-325 Mg) 1 tab Q4H PRN PO PAIN SCALE 3 TO 5; Start 08/20/16 at 17:45 Acetaminophen/ Hydrocodone Bitart ([place] 7.5-325 Mg) 1 tab Q4H PRN PO PAIN SCALE 6 TO 10 Last administered on 08/24/16 11:35; Start 08/20/16 at 17:45 Naloxone HCl (Narcan Inj) 0.4 mg UNSCH PRN IV SEE LABEL COMMENTS; Start at 17:45 Potassium Chloride (KCl) 20 meq ONCE ONCE PO Last administered on 08/21/16 12: 15; Start 08/21/16 at 12:15; Stop 08/21/16 at 12:34; Status DC Cyclobenzaprine HCl (Flexeril) 5 mg ONCE ONCE PO Last administered on 00:48; Start 08/22/16 at 00:45; Stop 08/22/16 at 00:46; Status DC Prednisone 20 mg 20 mg DAILY PO Last administered on 08/24/16 08:40; Start 08/24 at 09:00; Stop 08/24/16 at 16:41; Status DC Piperacillin Sod/ Tazobactam Sod 50 ml @ 100 mls/hr Q6H IV ; Start 08/24/16 at 15:00 Vancomycin HCl 1500 mg/Sodium Chloride 515 ml @ 257.5 mls/ hr ONCE ONCE IV Last administered on 08/24/16 11:34; Start 08/24/16 at 12:00; Stop 08/24/16 at 13: 59; Status DC Sodium Chloride 1,000 ml @ 125 mls/hr Q8H IV ; Start 08/24/16 at 16:33 Pantoprazole Sodium 80 mg/ Sodium Chloride 35 ml @ 420 mls/hr ONCE ONCE IV ; Start 08/24/16 at 17:45; Stop 08/24/16 at 17:49 Pantoprazole Sodium/Sodium Chloride (Protonix Inj/NS Inj) 100 ml @ 10 mls/hr Q10H IV ; Start 08/24/16 at 18:45 Ondansetron HCl (Zofran Inj) 4 mg Q6H PRN IV NAUSEA OR VOMITING; Start 08/24/16 at 16:45 Hydrocortisone Sodium Succinate (SoluCORTEF INJ) 50 mg Q6HR IV PUSH ; Start 08/24 at 16:45 Fentanyl Citrate (fentaNYL INJ) 50 mcg Q1H PRN IV SEE LABEL COMMENTS; Start 08/24/16 at 16:45 Albuterol/ Ipratropium (Duoneb Neb) 1 ampule Q6HR NEB NEB ; Start 08/24/16 at 16 :45 Albuterol/ Ipratropium (Duoneb Neb) 1 ampule Q4HR NEB PRN INH SHORTNESS OF BREATH; Start 08/24/16 at 16:45 Chlorhexidine Gluconate (Peridex 0.12% Liq) 15 ml BID@08,20 MT ; Start 08/24/16 at 20:00 Miscellaneous Information 1 Q361D XX ; Start 08/24/16 at 16:45 Chlorhexidine Gluconate (Chlorhexidine 2% Cloth) 3 pack Taper DAILY@04 TOP ; Start 08/25/16 at 04:00; Stop 08/21/17 at 03:59 Chlorhexidine Gluconate 3 pack 3 pack UNSCH PRN TOP HYGIENIC CARE; Start at 16:45 Midazolam HCl 100 ml @ 0 mls/hr TITRATE IV ; Start 08/24/16 at 16:45 Sodium Chloride 250 ml @ 15 mls/hr ONCE ONCE IV ; Start 08/24/16 at 17:00; Stop 08/25/16 at 09:39 Calcium Gluconate 2 gm/Dextrose 120 ml @ 120 mls/hr ONCE ONCE IV ; Start at 17:15; Stop 08/24/16 at 18:14 Fluconazole/ Sodium Chloride (Diflucan 200 Mg Premix Bag) 100 ml @ 100 mls/hr Q24H IV ; Start 08/24/16 at 17:15; Stop 09/07/16 at 17:14 Family History Unable to obtain Social History Smokes one pack of cigarettes per day according to EMR Review of Systems ROS Unable to obtain Physical Exam Vital Signs Vital Signs Date Time Temp Pulse Resp B/P Pulse Ox O2 Delivery O2 Flow Rate FiO2 08/24/16 15:55 100 100 08/24/16 14:00 94 08/24/16 12:00 90 20 121/82 94 08/24/16 08:45 Nasal Cannula 4.00 Humidified 08/24/16 08:00 97.3 99 20 109/76 94 08/24/16 04:00 97.4 95 20 113/69 93 08/24/16 00:00 97.3 94 22 128/78 94 08/23/16 20:40 93 Nasal Cannula 4.00 08/23/16 20:00 Nasal Cannula 4.00 Humidified 08/23/16 20:00 97.4 89 22 117/76 95 Physical Exam HEENT/ Neuro: Sedated, orally intubated, Pallor present, no icterus, tongue/ mucosa dry Neck: No JVD Chest/Pulm: on mech vent, good air entry bilaterally, scattered rhonchi bilaterally, no wheezing or crackles CVS: S1-S2 regular, no murmur GI/abdomen: soft, nontender, large ventral hernia noted. bowel sounds sluggish Extremities: warm bilaterally, no edema Laboratory Laboratory Tests Test 08/24/16 08/24/16 08/24/16 08/24/16 06:05 15:57 16:10 16:13 White Blood Count 25.7 33.9 Red Blood Count 2.36 1.74 Hemoglobin 7.5 5.4 Hematocrit 21.9 16.7 Mean Corpuscular Volume 92.8 95.6 Mean Corpuscular Hemoglobin 31.9 30.8 Mean Corpuscular Hemoglobin 34.4 32.2 Concent Red Cell Distribution Width 14.2 14.3 Platelet Count 353 316 Mean Platelet Volume 9.0 8.9 Neutrophils (%) (Auto) 89.6 89.2 Lymphocytes (%) (Auto) 3.0 4.9 Monocytes (%) (Auto) 7.2 5.5 Eosinophils (%) (Auto) 0.0 0.1 Basophils (%) (Auto) 0.2 0.3 Neutrophils # (Auto) 23.0 30.2 Lymphocytes # (Auto) 0.8 1.7 Monocytes # (Auto) 1.9 1.9 Eosinophils # (Auto) 0.0 0.0 Basophils # (Auto) 0.0 0.1 CBC Comment AUTO DIFF AUTO DIFF Differential Total Cells 100 Counted Neutrophils % (Manual) 74 Band Neutrophils % 18 Lymphocytes % 3 Monocytes % 5 Neutrophils # (Manual) 23.6 Nucleated Red Blood Cells 2 Differential Comment FINAL DIFF MANUAL Platelet Estimate NORMAL Platelet Morphology Comment NORMAL Target Cells 1+ Sodium Level 132 Potassium Level 3.7 Chloride Level 84 Carbon Dioxide Level 31.8 Anion Gap 16 Blood Urea Nitrogen 73 Creatinine 2.14 Estimat Glomerular Filtration 31 Rate Random Glucose 123 Calcium Level 8.8 Random Vancomycin Level 1.5 Blood Gas Puncture Site RT RADIAL Blood Gas Patient Temperature 98.6 Blood Gas HCO3 24 Blood Gas Base Excess -1.3 Blood Gas Oxygen Saturation 98 Arterial Blood pH 7.31 Arterial Blood Partial 50 Pressure CO2 Arterial Blood Partial 445 Pressure O2 Arterial Blood Oxygen Content 8.9 Arterial Blood 1.5 Carboxyhemoglobin Arterial Blood Methemoglobin 1.0 Blood Gas Hemoglobin 5.6 Oxygen Delivery Device VENTILATOR Blood Gas Ventilator Setting 500/20/PEEP10 Blood Gas Inspired Oxygen 100 Blood Type O POSITIVE Lactic Acid Level 11.4 Test 08/24/16 16:24 Blood Type O POSITIVE Antibody Screen NEGATIVE Crossmatch Leukocyte-Reduced Red Blood Cells Blood Bank Comment Date/Time Procedure Status Source Growth 08/22/16 12:45 Aerobic Blood Culture - Preliminary Resulted Blood Peripheral NO GROWTH IN 2 DAYS 08/22/16 12:45 Anaerobic Blood Culture - Preliminary Resulted Blood Peripheral NO GROWTH IN 2 DAYS 08/21/16 09:50 Urine Culture - Final Complete Urine Catheterized Urine NO GROWTH IN 48 HOURS. 08/20/16 12:32 Aerobic Blood Culture - Final Resulted Blood Peripheral Staphylococcus Epidermidis 08/20/16 12:32 Anaerobic Blood Culture - Preliminary Resulted Blood Peripheral NO GROWTH IN 4 DAYS Result Diagram: 08/24/16 1610 08/24/16 0605 Imaging 08/24: Chest x-ray portable which was personally reviewed: ET tube above michele, hyperinflated lung garcia with scattered interstitial infiltrates Last Impressions Chest X-Ray 08/20/16 1125 Signed Impressions: Service Date/Time: August 11:54 - CONCLUSION: Patchy infiltrate left lung base possible small area of pneumonia. Roverto Townsend MD Assessment and Plan Assessment and Plan 71-year-old male with: Cardiac arrest status post CPR Suspected Upper GI bleeding Acute blood loss anemia Mary Kay esophagitis Hypovolemic shock Acute respiratory failure on mechanical ventilation HCAP Aspiration Lactic acidosis YUMIKO Large ventral hernia Plan: Neuro: Follow neuro status. Versed for sedation if needed with daily sedation vacation. Concern for anoxic encephalopathy following cardiac arrest. We will obtain EEG in a.m. if he remains encephalopathic. Cardiovascular: Cardiac arrest status post CPR. Aggressive fluid resuscitation. 5 units PRBCs being transfused. Levophed for pressor support. Cycle cardiac enzymes. Follow-up 12-lead EKG. Pulmonary: Continue mechanical ventilation, vent bundle, bronchodilators, prednisone switched to IV hydrocortisone. Titrate FiO2 down provided O2 sat greater than 90%. GI/liver: Nothing by mouth, NG suction. Protonix 80 mg IV bolus followed by 8 mg/h IV infusion. GI consulted and discussed this with Dr. Radford. Being resuscitated currently. EGD planned for a.m. if patient stabilizes. Follow-up KUB Renal/: IV hydration, strict intake output, monitor and replete electro lites , follow BUN creatinine. ID: Repeat blood and sputum cultures, UA and urine cultures have indicated. Empiric antibiotic coverage with IV vancomycin and Zosyn to be continued. IV Diflucan being admitted by GI for Mary Kay esophagitis. Endocrine: SSI for glycemic control as needed. Switch to hydrocortisone 50 mg IV every 6 hourly for stress dose as patient has been on by mouth prednisone. Prophylaxis: PPI, SCDs. Lovenox held in view of suspected upper GI bleeding. Condition extremely critical. Access: Left femoral central venous catheter Patient's family was updated regarding current clinical status including events around cardiac arrest and resuscitation. They voiced understanding regarding plan of care and were agreeable. I have explained to them that patient may have anoxic encephalopathy and that at this point we are attempting to resuscitate and transfuse patient however if he continues to decline despite aggressive measures they do not want CPR/ACLS initiated. His daughter wishes him to be a DNR status at this point however wishes to continue other aggressive measures short of CPR/ACLS. We'll change CODE STATUS to DNR status. Time spent on critical care excluding procedures 90 minutes Blair Espinoza MD Aug 24, 2016 17:54
--- NOTE | 2016-08-24 18:19 | PD.PROCEDR ---
Procedure Note Procedure CPR Preop diagnosis: Cardiac arrest Postop diagnosis: Same Description: Responded to CODE BLUE cardiac arrest code activation. Initial rhythm PEA followed by asystole followed by V. fib. CPR/ACLS protocol initiated. Patient had return of spontaneous circulation following about 15 minutes of CPR. Please see ACLS code sheet for details. Blair Espinoza MD Aug 24, 2016 18:19
--- NOTE | 2016-08-24 18:24 | PD.PROCEDR ---
Procedure Note Procedure Procedure: Endotracheal intubation Preop diagnosis: Cardiac arrest, aspiration Postop diagnosis: Same Indication: ACLS protocol Sedation used: none Procedure: Responded to CODE BLUE cardiac arrest code activation. Patient had massive emesis and significant gastric contents were suctioned out of oral cavity including placement of NG tube and hoping it up to suction as gastric contents kept coming up during CPR into oral cavity. Patient was preoxygenated with 100% oxygen via Ambu bag with bag mask ventilation, direct laryngoscopy was performed using a Mac 4 blade with good visualization of vocal cords. An 8 [place] ET tube was passed through the vocal cords under direct visualization up to the [] centimeter ye and after inflating cuff of ET tube, correct placement was confirmed using bagging with good color change on CO2 detector, 5 point auscultation and chest rise with ventilation. Patient was connected to mechanical ventilation. Patient tolerated the procedure well with no immediate complications noted. Postprocedure chest x-ray was ordered. Blair Espinoza MD Aug 24, 2016 18:24
--- NOTE | 2016-08-24 18:26 | PD.PROCEDR ---
Procedure Note Procedure Procedure : Defibrillation Preoperative diagnosis: Cardiac arrest with initial rhythm PEA followed by asystole followed by ventricular fibrillation. Postoperative diagnosis: Same Description: Responded to CODE BLUE cardiac arrest code activation. CPR/ACLS protocol initiated. During ACLS protocol patient was noted to be in ventricular fibrillation. Defibrillation performed with 200 J DC shock which converted patient into junctional rhythm though initially without palpable pulse , CPR/ACLS protocol continued with subsequent return of spontaneous circulation. Patient was subsequent only transferred to ICU. Please see ACLS code sheet for details. Blair Espinoza MD Aug 24, 2016 18:26
--- NOTE | 2016-08-24 18:30 | PD.PROCEDR ---
Central Line Procedure REASON FOR PROCEDURE Central venous access following cardiac arrest PROCEDURE PERFORMED Central line placement: Left femoral vein CONSENT Informed consent for procedure was not obtained as this was an emergent procedure following cardiac arrest/CPR for significant hypotension requiring pressors and multiple blood product transfusions. ANESTHESIA Local injection of 1% Lidocaine DESCRIPTION OF THE PROCEDURE The patient was placed in supine position. The area was exposed and cleansed with ChloraPrep, times two. Large sterile drape was used to cover the patient, with the site exposed, under sterile conditions including cap, face mask, sterile gown, and sterile gloves. On single attempt, the introducer needle was inserted with negative pressure in syringe and venous flash was obtained. The guide wire was then advanced without any restriction and the needle was removed. The dilator was used without any complications. Using Seldinger technique the 20 cm antimicrobial coated triple lumen catheter was advanced over the guide wire to a depth of 19 centimeters. The guide wire was removed. All ports were aspirated with dark venous blood return and flushed easily with sterile saline. All ports were capped. Antibiotic disc was placed around central line at puncture site. The central line was secured to the skin with two interrupted 2.0 silk sutures. The area was bandaged with sterile see- through central line bandage. COMPLICATIONS: No apparent complications ESTIMATED BLOOD LOSS: 3 cc. Blair Espinoza MD Aug 24, 2016 18:30
--- NOTE | 2016-08-24 18:36 | HHI.PR ---
Addendum to Inpatient Note Additional Information I came to see the patient around 3:10 PM CODE BLUE was running, patient is being suctioned because of profuse bleeding/aspiration, was at the bedside intubating the patient, I stayed during the code, around 20-25 minutes of code has been done, eventually patient regaining pulse and he was sent to the ICU. I discussed with and with family, I ordered basic stat lab CBC BMP lactic acid ABG chest x-ray Patient will be under intensive care Rik Cevallos MD Aug 24, 2016 18:36
[2016-08-24] MEDS: PANTOPRAZOLE INJ 80 MG in SODIUM CHLORIDE 0.9% INJ 100 ML IV SCH (18:45)
[2016-08-24] MEDS: CHLORHEXIDINE 0.12% (ORAL KIT) 15 ML CUP MT SCH (20:00)
[2016-08-24 21:12] LABS: HEMATOCRIT 26.4 % (39.0-51.0); REVIEW FLAG FINAL
[2016-08-24 21:32] LABS: APTT (PATIENT) 46.4 SEC (24.3-30.1); INTERNATIONAL NORMALIZED RATIO 1.2 RATIO; PROTHROMBIN TIME - PATIENT 13.9 SEC (9.8-11.6)
[2016-08-24] MEDS: RESP: ALBUTEROL 2.5 MG/IPRATROPIUM 0.5 MG NEB (SCH) NEB (21:38)
[2016-08-24 22:22] LABS: CKMB 19.3 NG/ML (0.5-3.6)
[2016-08-25] VITALS (14 sets, daily range): BP systolic 100–108; BP diastolic 52–65; PULSE 84–107; RESP 22–34; TEMP 96.4–99.5; O2SAT 93–100
[2016-08-25] MEDS: SODIUM CHLOR 0.9% 1000 ML INJ 1,000 ML IV SCH ×3 (00:33→16:33)
[2016-08-25] MEDS: HYDROCORTISONE SOD SUCCINATE 100 MG VIAL IV PUSH SCH ×5 (00:46→23:46)
[2016-08-25 01:01] LABS: HEMATOCRIT 27.6 % (39.0-51.0)
[2016-08-25 01:04] LABS: REVIEW FLAG FINAL
[2016-08-25] MEDS: PANTOPRAZOLE INJ 80 MG in SODIUM CHLORIDE 0.9% INJ 100 ML IV SCH ×3 (02:31→23:46)
[2016-08-25] MEDS: PIPERACIL-TAZO 3.375 GM PREMIX 50 ML IV SCH ×4 (02:36→20:33)
[2016-08-25] MEDS: RESP: ALBUTEROL 2.5 MG/IPRATROPIUM 0.5 MG NEB (SCH) NEB ×4 (03:54→22:20)
[2016-08-25] MEDS: CHLORHEXIDINE GLUCONATE 2 % 1 PACK (2 CLOTHS) TOP SCH (04:00)
[2016-08-25] MEDS ORDERED: SODIUM CHLOR 0.9% 1000 ML INJ 1,000 ML IV SCH (05:45)
[2016-08-25 05:59] LABS: HEMATOCRIT 27.3 % (39.0-51.0); MEAN CELL VOLUME 86.3 FL (80.0-100.0); MEAN CORPUSCULAR HEMOGLOBIN 29.5 PG (27.0-34.0); MEAN CORPUSCULAR HGB CONC 34.2 % (32.0-36.0); PLATELET COUNT 217 TH/MM3 (150-450); RED BLOOD COUNT 3.16 MIL/MM3 (4.50-5.90); RED CELL DISTRIBUTION WIDTH 16.4 % (11.6-17.2); WHITE BLOOD COUNT 42.6 TH/MM3 (4.0-11.0)
[2016-08-25 06:01] LABS: INTERNATIONAL NORMALIZED RATIO 1.2 RATIO; PROTHROMBIN TIME - PATIENT 13.4 SEC (9.8-11.6)
[2016-08-25 06:08] LABS: HEMO FLAGS AUTO DIFF
[2016-08-25 06:26] LABS: BICARBONATE 28.5 MEQ/L (21.0-32.0); CALCIUM-PROTEIN CORRECTED 8.5 MG/DL (8.5-10.1); POTASSIUM 3.1 MEQ/L (3.5-5.1); TOTAL BILIRUBIN ADULT 0.6 MG/DL (0.2-1.0)
[2016-08-25 07:14] LABS: BANDS 48 % (0-6); CORRECTED NUCLEATED RBC 3 /100 WBC (0-0); METAMYELOCYTES 18 % (0-1); MYELOCYTES 1 % (0-0); NEUTROPHIL # MANUAL DIFF 40.5 TH/MM3 (1.8-7.7); PLATELET ESTIMATE SMEAR NORMAL (NORMAL); PLATELET MORPHOLOGY ENLARGED (NORMAL); POLYS (SEG NEUTROPHILS) 28 % (16-70); WBC DIFF SAMPLE 100
[2016-08-25 07:15] LABS: SCAN/DIFF FINAL DIFF MANUAL
--- NOTE | 2016-08-25 07:31 | HHI.CCPN ---
Subjective Remarks/Hospital Course 08/24: 71 Year-old male with a medical history significant for COPD on home oxygen who was recently admitted with suspected sepsis/H And was initiated on IV antibiotics and steroids. He had recently been evaluated by GI and underwent EGD on 08/10/2016 and was found to have moderate esophagitis, mild gastritis with pathology subsequently showing Ashley esophagitis as well as colonoscopy on 08/11/2016 with polypectomy and ablation of polyp in ascending colon with hot snare. Patient has been dealing with constipation since his admission. Today when he was trying to have a bowel movement he suddenly became less responsive and then had a large emesis which resulted in aspiration and hemodynamic collapse. Patient initially had large volume emesis with dark maroon blood. CODE BLUE cardiac arrest code was activated. On my arrival patient was in bed CPR had been initiated. Significant gastric contents was still being suctioned out of his oral cavity. ACLS protocol was continued. Patient was intubated following vigorous suctioning of gastric contents from oral cavity as well as with placement of NG tube which is hooked up to suction and about 1.5 L of gastric contents being suctioned out which appeared to be dark maroon in color. Patient initially had a pulse when CODE BLUE was called and subsequently went in PEA arrest followed by asystole during ACLS and then V. fib for which he was defibrillated with 200 J 1, CPR/ACLS protocol was continued and patient eventually had return of spontaneous circulation after about 15 minutes of CPR/ACLS. Patient was transferred to [facility] and placed on mechanical ventilation. I emergently placed left femoral central line for central vascular access and he was started on Levophed for pressor support. 2 units of O- 1 crossmatch blood were ordered and transfused stat. He also received 1 L of normal saline bolus following return of spontaneous circulation. Stat labs were ordered. His hemoglobin on ABG done post resuscitation was 5.6. I did order Protonix 80 mg IV stat followed by 8 mg per hour IV infusion. Patient remained encephalopathic though was minimally responsive following transfer to the ICU. GI consult was requested and I spoke with Dr. Zamarripa at bedside on his arrival. History was obtained by reviewing records, discussion with family/ GI as well as nursing staff. According to patient's daughter he has not been doing well for the last few months in terms of his breathing and has been using his home oxygen more often. He gets extremely short of breath even with the least exertion. 08/25: Remains encephalopathic/ sedated, orally intubated on [facility] ventilation. Transiently off levophed last night however back to 11 mcg/min currently. Hgb up to 9.4 following 4 units PRBCs transfused last night. Objective Vital Signs Date Time Temp Pulse Resp B/P Pulse Ox O2 Delivery O2 Flow Rate FiO2 08/25/16 04:02 97 65 08/25/16 04:00 99.5 106 30 101/62 08/24/16 19:00 Mechanical Ventilator 08/24/16 08:45 4.00 Intake and Output 08/24/16 08/24/16 08/25/16 08:00 16:00 00:00 Intake Total 480 ml 1997 ml Output Total 250 ml 650 ml 400 ml Balance -250 ml -170 ml 1597 ml Result Diagram: 08/25/16 0540 08/25/16 0540 Other Results Laboratory Tests Test 08/24/16 08/24/16 08/24/16 08/24/16 15:57 16:10 16:13 16:24 Blood Gas Puncture Site RT RADIAL Blood Gas Patient Temperature 98.6 Blood Gas HCO3 24 mmol/L Blood Gas Base Excess -1.3 mmol/L Blood Gas Oxygen Saturation 98 % Arterial Blood pH 7.31 Arterial Blood Partial 50 mmHg Pressure CO2 Arterial Blood Partial 445 mmHg Pressure O2 Arterial Blood Oxygen Content 8.9 Vol % Arterial Blood 1.5 % Carboxyhemoglobin Arterial Blood Methemoglobin 1.0 % Blood Gas Hemoglobin 5.6 G/DL Oxygen Delivery Device VENTILATOR Blood Gas Ventilator Setting 500/20/PEEP10 Blood Gas Inspired Oxygen 100 % White Blood Count 33.9 TH/MM3 Red Blood Count 1.74 MIL/MM3 Hemoglobin 5.4 GM/DL Hematocrit 16.7 % Mean Corpuscular Volume 95.6 FL Mean Corpuscular Hemoglobin 30.8 PG Mean Corpuscular Hemoglobin 32.2 % Concent Red Cell Distribution Width 14.3 % Platelet Count 316 TH/MM3 Mean Platelet Volume 8.9 FL Neutrophils (%) (Auto) 89.2 % Lymphocytes (%) (Auto) 4.9 % Monocytes (%) (Auto) 5.5 % Eosinophils (%) (Auto) 0.1 % Basophils (%) (Auto) 0.3 % Neutrophils # (Auto) 30.2 TH/MM3 Lymphocytes # (Auto) 1.7 TH/MM3 Monocytes # (Auto) 1.9 TH/MM3 Eosinophils # (Auto) 0.0 TH/MM3 Basophils # (Auto) 0.1 TH/MM3 CBC Comment AUTO DIFF Differential Total Cells 100 Counted Neutrophils % (Manual) 64 % Band Neutrophils % 14 % Lymphocytes % 13 % Monocytes % 5 % Neutrophils # (Manual) 27.8 TH/MM3 Metamyelocytes 1 % Myelocytes 3 % Differential Comment FINAL DIFF MANUAL Platelet Estimate NORMAL Platelet Morphology Comment NORMAL Red Cell Morphology Comment NORMAL Sodium Level 135 MEQ/L Potassium Level 3.3 MEQ/L Chloride Level 86 MEQ/L Carbon Dioxide Level 28.2 MEQ/L Anion Gap 21 MEQ/L Blood Urea Nitrogen 80 MG/DL Creatinine 2.75 MG/DL Estimat Glomerular Filtration 23 ML/MIN Rate Random Glucose 183 MG/DL Calcium Level 7.7 MG/DL Blood Type O POSITIVE O POSITIVE Lactic Acid Level 11.4 mmol/L Antibody Screen NEGATIVE Crossmatch Leukocyte-Reduced Red Blood Cells Blood Bank Comment Test 08/24/16 08/24/16 08/25/16 08/25/16 17:16 21:00 00:50 05:40 Crossmatch Leukocyte-Reduced Red Blood Cells Blood Bank Comment Hemoglobin 9.0 GM/DL 9.7 GM/DL 9.3 GM/DL Hematocrit 26.4 % 27.6 % 27.3 % Prothrombin Time 13.9 SEC 13.4 SEC Prothromb Time International 1.2 RATIO 1.2 RATIO Ratio Activated Partial 46.4 SEC Thromboplast Time Fibrinogen 151 mg/dL Total Creatine Kinase 386 U/L 284 U/L Creatine Kinase MB 19.3 NG/ML Creatine Kinase MB % 5.0 % Troponin I 0.44 NG/ML 0.66 NG/ML White Blood Count 42.6 TH/MM3 Red Blood Count 3.16 MIL/MM3 Mean Corpuscular Volume 86.3 FL Mean Corpuscular Hemoglobin 29.5 PG Mean Corpuscular Hemoglobin 34.2 % Concent Red Cell Distribution Width 16.4 % Platelet Count 217 TH/MM3 Mean Platelet Volume 8.6 FL Neutrophils (%) (Auto) % Lymphocytes (%) (Auto) % Monocytes (%) (Auto) % Eosinophils (%) (Auto) % Basophils (%) (Auto) % Neutrophils # (Auto) TH/MM3 Lymphocytes # (Auto) TH/MM3 Monocytes # (Auto) TH/MM3 Eosinophils # (Auto) TH/MM3 Basophils # (Auto) TH/MM3 CBC Comment AUTO DIFF Sodium Level 136 MEQ/L Potassium Level 3.1 MEQ/L Chloride Level 94 MEQ/L Carbon Dioxide Level 28.5 MEQ/L Anion Gap 14 MEQ/L Blood Urea Nitrogen 77 MG/DL Creatinine 2.46 MG/DL Estimat Glomerular Filtration 26 ML/MIN Rate Random Glucose 112 MG/DL Lactic Acid Level 1.5 mmol/L Calcium Level 7.2 MG/DL Protein Corrected Calcium 8.5 MG/DL Total Bilirubin 0.6 MG/DL Aspartate Amino Transf 102 U/L (AST/SGOT) Alanine Aminotransferase 65 U/L (ALT/SGPT) Alkaline Phosphatase 70 U/L B-Type Natriuretic Peptide 460 PG/ML Total Protein 4.7 GM/DL Albumin 1.8 GM/DL Random Vancomycin Level 33.2 COMMENT Imaging 08/24: Chest x-ray portable which was personally reviewed: ET tube above michele, hyperinflated lung garcia with scattered interstitial infiltrates 08/24: KUB: ileus vs SBO per radiology report Last Impressions Chest X-Ray 08/20/16 1125 Signed Impressions: Service Date/Time: August 11:54 - CONCLUSION: Patchy infiltrate left lung base possible small area of pneumonia. Roverto Townsend MD Objective Remarks HEENT/ Neuro: Sedated, orally intubated, Pallor present, no icterus, tongue/ mucosa dry Neck: No JVD Chest/Pulm: on mech vent, good air entry bilaterally, scattered rhonchi bilaterally, no wheezing or crackles CVS: S1-S2 regular, no murmur GI/abdomen: soft, nontender, large ventral hernia noted. bowel sounds sluggish Extremities: warm bilaterally, no edema Urinary Catheter: Yes Assessment to: Continue Vascular Central Line Catheter: Yes Date of Insertion: Aug 24, 2016 Line: Central Venous Catheter Side: Left Location: Femoral A/P Assessment and Plan 71-year-old male with: Cardiac arrest status post CPR suspect anoxic encephalopathy Suspected Upper GI bleeding Acute blood loss anemia Ashley esophagitis Shock (hypovolemic initially post resuscitation, now vasodilatory probably sec to SIRS/ sepsis) Acute respiratory failure on mechanical ventilation HCAP Aspiration ileus vs SBO Lactic acidosis (resolved) YUMIKO Large ventral hernia Plan: Neuro: Follow neuro status. Versed for sedation if needed with daily sedation vacation. Concern for anoxic encephalopathy following cardiac arrest. We will obtain EEG as he remains encephalopathic. Cardiovascular: Cardiac arrest status post CPR. s/p aggressive fluid resuscitation. 4 units PRBCs transfused. Levophed for pressor support. minimal troponin elevation following cardiac arrest noted. Pulmonary: Continue mechanical ventilation, vent bundle, bronchodilators, prednisone switched to IV hydrocortisone. Titrate FiO2 down provided O2 sat greater than 90%. GI/liver: Nothing by mouth, NG suction. Protonix 80 mg IV bolus followed by 8 mg/h IV infusion. GI consulted and discussed this with Dr. Radford on 08/24. Being resuscitated currently. EGD being planned by GI. KUB with ileus vs SBO, continue NG suction. Will d/w GI re. obtaining CT Abd/pelvis with PO contrast. Renal/: IV hydration, strict intake output, monitor and replete electro lites , follow BUN creatinine. ID: Repeat blood and sputum cultures, UA and urine cultures have indicated. Empiric antibiotic coverage with IV vancomycin and Zosyn to be continued. IV Diflucan started by GI for Ashley esophagitis. Worsening leukocytosis noted. ID consult requested for septic shock with worsening leukocytosis. No diarrhea noted, in fact pt. has not had a BM since arrival? Endocrine: SSI for glycemic control as needed. Switch to hydrocortisone 50 mg IV every 6 hourly for stress dose as patient has been on by mouth prednisone. Heme: s/p 4 units PRBCs, 2 units FFP on 08/24. Follow CBC and coags. Prophylaxis: PPI, SCDs. Lovenox held in view of suspected upper GI bleeding. Condition extremely critical. Access: Left femoral central venous catheter 08/25. Plan to switch if we continue aggressive care following review of neuro status with sedation vacation and EEG and discussion with family and GI. On 08/23 patient's family was updated regarding current clinical status including events around cardiac arrest and resuscitation. They voiced understanding regarding plan of care and were agreeable. I have explained to them that patient may have anoxic encephalopathy and that at this point we are attempting to resuscitate and transfuse patient however if he continues to decline despite aggressive measures they do not want CPR/ACLS initiated. His daughter wishes him to be a DNR status at this point however wishes to continue other aggressive measures short of CPR/ACLS. We'll change CODE STATUS to DNR status. Updated patient's daughter re current critical condition at bedside and explained plan of care - she voiced understanding and was agreeable. Time spent on critical care excluding procedures 45 minutes Blair Espinoza MD Aug 25, 2016 07:31
[2016-08-25] MEDS ORDERED: PROPOFOL 200 MG/20 ML AMP IV ONE ×3 (07:40→16:23)
[2016-08-25] MEDS: MULTIVITAMIN TAB PO SCH (09:00)
[2016-08-25 09:56] LABS: BLOOD GAS BASE EXCESS 1.3 mmol/L (-2-2); BLOOD GAS CARBOXYHEMOGLOBIN 1.2 % (0-4); BLOOD GAS HCO3 26 mmol/L (22-26); BLOOD GAS METHEMOGLOBIN 1.1 % (0-2); BLOOD GAS O2 HGB SATURATION 93 % (90-100); BLOOD GAS OXYGEN CONTENT 14.2 Vol % (12.0-20.0); BLOOD GAS PCO2 47 mmHg (38-42); BLOOD GAS PO2 80 mmHg (61-120); BLOOD GAS TOTAL HGB 10.8 G/DL (12.0-16.0); CRITICAL VALUE NO; OXYGEN DEVICE VENTILATOR; TEMP CORR TO 98.6
[2016-08-25 09:58] LABS: DRAW SITE RT RADIAL; FIO2 65 %; NUMBER OF ARTERIAL PUNCTURES 2; STAT NO; ULNAR PULSE PRESENT; VENT SETTINGS 500/20/PEEP10
[2016-08-25] MEDS ORDERED: TERBUTALINE INJ 1 MG/ML AMP SQ PRN (10:00)
--- NOTE | 2016-08-25 11:48 | PD.CONS ---
History of Present Illness Service Infectious disease Consult Requested By Dr Mckayla Espinoza Reason for Consult Evaluate patient with sepsis and leukocytosis Primary Care Physician Non-Staff Diagnoses: History of Present Illness Patient seen and examined. Records reviewed. Patient is a 71-year-old male, COPD and oxygen dependent, recently hospitalized in July and at that time he had urinary retention. A catheter was left in place, and patient was supposed to get urological evaluation as an outpatient. During that hospitalization he was also evaluated by GI, and had an upper lower endoscopy. He had gastritis, as well as Ashley esophagitis. He also had a polyp that was removed and it was hyperplastic polyp. According to the patient also was found to have some kind of a pneumonia at that time. According to the since the patient was discharged he continued to have nausea and vomiting. He has not had any bowel movement, and she thinks in the last 3 weeks. Patient started having more weakness, and was getting more short of breath, so the patient presented back to the hospital and was admitted August 20. He was admitted as a COPD exacerbation and pneumonia. He was put on empiric antibiotics. Patient has not been febrile. His WBC started rising around August 23. Of note is that his hemoglobin also started dropping. It was 11 on admission, went down to 8, then 7, then 5.4. Yesterday patient had hematochezia, and had cardiorespiratory arrest. He was successfully resuscitated, and currently intubated. He is on pressors for blood pressure support. Patient received 4 units of packed RBC, and his hemoglobin went up from 5.4-9. He has an OGT too, that has fresh blood in it. His white count went up to 42,000 today. Infectious disease consultation has been requested to evaluate the patient for sepsis and leukocytosis. Review of Systems ROS Limitations: Clinical Condition, Intubated Constitutional: COMPLAINS OF: Fatigue, DENIES: Fever, Chills Gastrointestinal: COMPLAINS OF: Constipation, Nausea, Vomiting Past Family Social History Allergies: Coded Allergies: *MDRO Multi-Drug Resistant Organism (Verified Adverse Reaction, Unknown, ) MRSA (abdominal wound) 2015 per 04/10/2015 H&P MRSA PCR Screen #1 NEGATIVE - 08/21/16 Past Medical History Hypertension COPD O2 dependent prostate cancer Bladder outlet obstruction Hyperlipidemia Past Surgical History Ventral hernia Appendectomy Perforated gastric ulcer surgery Cataract Upper and lower endoscopy Active Ordered Medications Tylenol [place] Albuterol Fentanyl Fluconazole Robitussin-DM Solu-Cortef MOM Versed Levophed Zofran Protonix Zosyn Social History Smokes one pack of cigarettes per day No alcohol abuse No illicit drugs Physical Exam Vital Signs Vital Signs Date Time Temp Pulse Resp B/P Pulse Ox O2 Delivery O2 Flow Rate FiO2 08/25/16 08:56 96 65 08/25/16 08:00 106 08/25/16 08:00 93 Mechanical Ventilator 65 08/25/16 08:00 99.3 106 27 102/57 96 08/25/16 08:00 65 08/25/16 04:02 97 65 08/25/16 04:00 65 08/25/16 04:00 99.5 106 30 101/62 98 08/25/16 02:00 104 08/25/16 01:39 96 65 08/25/16 00:00 65 08/25/16 00:00 84 08/25/16 00:00 96.4 84 22 103/56 96 08/24/16 22:00 78 08/24/16 21:41 100 65 08/24/16 20:00 95.4 76 21 133/68 100 08/24/16 20:00 75 08/24/16 20:00 76 08/24/16 19:00 Mechanical Ventilator 75 08/24/16 16:00 89 24 98/61 92 08/24/16 15:55 100 100 08/24/16 14:00 94 08/24/16 12:00 90 20 121/82 94 Physical Exam GENERAL: This is a well-nourished, well-developed male, sedated and intubated, tachypneic on the vent. SKIN: Warm and dry. No generalized rash or ecchymosis. HEAD: Atraumatic. Normocephalic. No temporal or scalp tenderness. EYES: Pale conjunctivae, no petechia or hemorrhage. Pupils equal round and reactive. No scleral icterus. No injection or drainage. ENT: Nose without bleeding, purulent drainage. Has endotracheal tube and OG tube in the mouth. The OG-tube has dark blood in the tubing. NECK: Trachea midline. No JVD or lymphadenopathy. Supple. CARDIOVASCULAR: Regular rate and rhythm without murmurs, gallops, or rubs. RESPIRATORY: Decreased breath sounds throughout both lung garcia. GASTROINTESTINAL: Abdomen soft, with protuberance in middle, this is an incisional hernia, reducible. Has midline scar. Bowel sounds are hypoactive, no guarding. MUSCULOSKELETAL: Extremities without clubbing, cyanosis, or edema. No joint effusion, or edema noted. NEUROLOGICAL: Sedated PSYCH: Unable to assess LINE: There is also a line in the left groin with some blood at the site. Laboratory Laboratory Tests Test 08/24/16 08/24/16 08/24/16 08/24/16 15:57 16:10 16:13 16:24 Blood Gas Puncture Site RT RADIAL Blood Gas Patient Temperature 98.6 Blood Gas HCO3 24 Blood Gas Base Excess -1.3 Blood Gas Oxygen Saturation 98 Arterial Blood pH 7.31 Arterial Blood Partial 50 Pressure CO2 Arterial Blood Partial 445 Pressure O2 Arterial Blood Oxygen Content 8.9 Arterial Blood 1.5 Carboxyhemoglobin Arterial Blood Methemoglobin 1.0 Blood Gas Hemoglobin 5.6 Oxygen Delivery Device VENTILATOR Blood Gas Ventilator Setting 500/20/PEEP10 Blood Gas Inspired Oxygen 100 White Blood Count 33.9 Red Blood Count 1.74 Hemoglobin 5.4 Hematocrit 16.7 Mean Corpuscular Volume 95.6 Mean Corpuscular Hemoglobin 30.8 Mean Corpuscular Hemoglobin 32.2 Concent Red Cell Distribution Width 14.3 Platelet Count 316 Mean Platelet Volume 8.9 Neutrophils (%) (Auto) 89.2 Lymphocytes (%) (Auto) 4.9 Monocytes (%) (Auto) 5.5 Eosinophils (%) (Auto) 0.1 Basophils (%) (Auto) 0.3 Neutrophils # (Auto) 30.2 Lymphocytes # (Auto) 1.7 Monocytes # (Auto) 1.9 Eosinophils # (Auto) 0.0 Basophils # (Auto) 0.1 CBC Comment AUTO DIFF Differential Total Cells 100 Counted Neutrophils % (Manual) 64 Band Neutrophils % 14 Lymphocytes % 13 Monocytes % 5 Neutrophils # (Manual) 27.8 Metamyelocytes 1 Myelocytes 3 Differential Comment FINAL DIFF MANUAL Platelet Estimate NORMAL Platelet Morphology Comment NORMAL Red Cell Morphology Comment NORMAL Sodium Level 135 Potassium Level 3.3 Chloride Level 86 Carbon Dioxide Level 28.2 Anion Gap 21 Blood Urea Nitrogen 80 Creatinine 2.75 Estimat Glomerular Filtration 23 Rate Random Glucose 183 Calcium Level 7.7 Blood Type O POSITIVE O POSITIVE Lactic Acid Level 11.4 Antibody Screen NEGATIVE Crossmatch Leukocyte-Reduced Red Blood Cells Blood Bank Comment Test 08/24/16 08/24/16 08/25/16 08/25/16 17:16 21:00 00:50 05:40 Crossmatch Leukocyte-Reduced Red Blood Cells Blood Bank Comment Hemoglobin 9.0 9.7 9.3 Hematocrit 26.4 27.6 27.3 Prothrombin Time 13.9 13.4 Prothromb Time International 1.2 1.2 Ratio Activated Partial 46.4 Thromboplast Time Fibrinogen 151 Total Creatine Kinase 386 284 Creatine Kinase MB 19.3 Creatine Kinase MB % 5.0 Troponin I 0.44 0.66 White Blood Count 42.6 Red Blood Count 3.16 Mean Corpuscular Volume 86.3 Mean Corpuscular Hemoglobin 29.5 Mean Corpuscular Hemoglobin 34.2 Concent Red Cell Distribution Width 16.4 Platelet Count 217 Mean Platelet Volume 8.6 Neutrophils (%) (Auto) Lymphocytes (%) (Auto) Monocytes (%) (Auto) Eosinophils (%) (Auto) Basophils (%) (Auto) Neutrophils # (Auto) Lymphocytes # (Auto) Monocytes # (Auto) Eosinophils # (Auto) Basophils # (Auto) CBC Comment AUTO DIFF Differential Total Cells 100 Counted Neutrophils % (Manual) 28 Band Neutrophils % 48 Lymphocytes % 2 Monocytes % 3 Neutrophils # (Manual) 40.5 Metamyelocytes 18 Myelocytes 1 Nucleated Red Blood Cells 3 Differential Comment FINAL DIFF MANUAL Platelet Estimate NORMAL Platelet Morphology Comment ENLARGED Sodium Level 136 Potassium Level 3.1 Chloride Level 94 Carbon Dioxide Level 28.5 Anion Gap 14 Blood Urea Nitrogen 77 Creatinine 2.46 Estimat Glomerular Filtration 26 Rate Random Glucose 112 Lactic Acid Level 1.5 Calcium Level 7.2 Protein Corrected Calcium 8.5 Total Bilirubin 0.6 Aspartate Amino Transf 102 (AST/SGOT) Alanine Aminotransferase 65 (ALT/SGPT) Alkaline Phosphatase 70 B-Type Natriuretic Peptide 460 Total Protein 4.7 Albumin 1.8 Random Vancomycin Level 33.2 Test 08/25/16 09:46 Blood Gas Puncture Site RT RADIAL Blood Gas Patient Temperature 98.6 Blood Gas HCO3 26 Blood Gas Base Excess 1.3 Blood Gas Oxygen Saturation 93 Arterial Blood pH 7.37 Arterial Blood Partial 47 Pressure CO2 Arterial Blood Partial 80 Pressure O2 Arterial Blood Oxygen Content 14.2 Arterial Blood 1.2 Carboxyhemoglobin Arterial Blood Methemoglobin 1.1 Blood Gas Hemoglobin 10.8 Oxygen Delivery Device VENTILATOR Blood Gas Ventilator Setting 500/20/PEEP10 Blood Gas Inspired Oxygen 65 Date/Time Procedure Status Source Growth 08/25/16 04:27 Aerobic Blood Culture Received Blood Peripheral Pending 08/25/16 04:27 Anaerobic Blood Culture Received Blood Peripheral Pending 08/22/16 12:45 Aerobic Blood Culture - Preliminary Resulted Blood Peripheral NO GROWTH IN 3 DAYS 08/22/16 12:45 Anaerobic Blood Culture - Preliminary Resulted Blood Peripheral NO GROWTH IN 3 DAYS 08/21/16 09:50 Urine Culture - Final Complete Urine Catheterized Urine NO GROWTH IN 48 HOURS. 08/20/16 12:32 Aerobic Blood Culture - Final Complete Blood Peripheral Staphylococcus Epidermidis 08/20/16 12:32 Anaerobic Blood Culture - Final Complete Blood Peripheral NO GROWTH IN 5 DAYS Result Diagram: 08/25/16 0540 08/25/16 0540 Imaging RADIOLOGY STUDIES/FILMS REVIEWED Chest X-Ray 08/24/16 0000 Signed Impressions: Service Date/Time: Wednesday, August 24, 2016 16:29 - CONCLUSION: 1. Endotracheal tube is in appropriate position with tip measuring 6.3 cm from the michele. 2. Mild bibasilar airspace consolidation that is new on the right and increased on the left. Lex Malik MD Abdomen X-Ray 08/24/16 0000 Signed Impressions: Service Date/Time: Wednesday, August 24, 2016 17:19 - CONCLUSION: 1. Small bowel dilatation which reflect ileus or obstruction. Followup examination is recommended if clinically indicated. Gareth Escalante MD Assessment and Plan Assessment and Plan IMPRESSION Status post cardiorespiratory arrest, likely aspirated Likely aspiration pneumonia Respiratory failure GI bleed Leukocytosis, most likely multifactorial, due to acute GI bleed as well as aspiration and arrest COPD, oxygen dependent Previous GI bleed with workup showing gastritis, Ashley esophagitis, and polyps Large incisional ventral hernia Bladder outlet obstruction, currently has a Hammond Renal insufficiency RECOMMENDATION Follow cultures We will also get sputum Gram stain and culture Continue Vanco and Zosyn GI has been consult. Will adjust antibiotics once cultures are available Follow CBC Monitor progress I will follow along with you. Thank you for this consultation Discussed Condition With Discussed with RN Spoke with the Nuha Fernandez MD Aug 25, 2016 11:47 Nuha Fernandez MD Aug 25, 2016 11:47
[2016-08-25] MEDS: MIDAZOLAM 100 MG/ML INJ 100 ML IV SCH (12:06)
[2016-08-25 12:53] LABS: REVIEW FLAG FINAL
--- NOTE | 2016-08-25 13:07 | EKG ---
Date Performed: 08/24/2016 Time Performed: 17:33:24 PTAGE: 71 years EKG: Sinus rhythm WITH OCCASIONAL SUPRAVENTRICULAR PREMATURE COMPLEXES LEFTWARD AXIS LOW QRS VOLTAGE IN PRECORDIAL AGNIESZKA DS POSSIBLE RIGHT VENTRICULAR CONDUCTION DELAY NONSPECIFIC ST WAVE ABNORMALITY ABNORMAL ECG PREVIOUS TRACING : 08/20/2016 12.37 Compared to previous tracing, QRS duration has decreased, T wave inversion in AVL is now present. DOCTOR: Nain Miranda Interpretating Date/Time 08/25/2016 13:06:19
--- NOTE | 2016-08-25 13:34 | RADRPT ---
EXAM DATE/TIME: 08/24/2016 21:53 [facility] COMPARISON: CT ABDOMEN & PELVIS W/O CONTRAST, August 04, 2016, 1:07. EXTERNAL COMPARISON : [facility], Ultrasound kidney, July 17, 2016TLI, CT Abdomen, 04/15/16. INDICATIONS : Acute kidney infection. MEDICAL HISTORY : Chronic obstructive pulmonary disease. Hypercholesterolemia. Gastroesophageal reflux disease. Congest patricia heart failure. Hypertension. Emphysema. Ulcer. Renal disease. Prostate cancer. Radiation. Rheumat oid arthritis. Diabetes. Measles. Shingles. Post traumatic stress disorder. SURGICAL HISTORY : Appendectomy. Bilateral cataract removal. Hernia repair. Multiple abdominal surgeries. Left knee surgery. ENCOUNTER: Initial ACUITY: 1 day PAIN SCORE: Nonresponsive. LOCATION: Bilateral flank MEASUREMENTS: RIGHT KIDNEY: 11.2 x 5.5 x 4.7 cm LEFT KIDNEY: 11.7 x 4.8 x 5.2 cm FINDINGS: RIGHT KIDNEY: Renal cortex is normal in thickness with mild increased echotexture. No hydronephrosis, stone, or ma ss. LEFT KIDNEY: Renal cortex is normal in thickness with mild increased echotexture. No hydronephrosis, stone, or ma ss. BLADDER: Urinary bladder is completely decompressed with a Hammond catheter present. There is trace perihepatic free fluid along with fluid in Morison's pouch. There is pleural fluid vis ualized bilaterally. CONCLUSION: 1. There is no hydronephrosis. Both kidneys demonstrate mild increased echotexture of the parenchyma suggesting medical renal disease. 2. Trace perihepatic free fluid and bilateral pleural effusions. Lex Malik MD on August 25, 2016 at 13:30 Board Certified Radiologist. This report was verified electronically.
--- NOTE | 2016-08-25 14:34 | HHI.GIFU ---
Subjective Remarks Sedated on vent. Still on vasopressors. Pt has OGT to LIWS with more jazzmine red blood- small amount in canister/tubing. Family reports no BM during this hospitalization. Objective Vitals I&O Vital Signs Date Time Temp Pulse Resp B/P Pulse Ox O2 Delivery O2 Flow Rate FiO2 08/25/16 12:22 93 65 08/25/16 12:00 65 08/25/16 12:00 99.0 107 34 108/65 94 08/25/16 08:56 96 65 08/25/16 08:00 106 08/25/16 08:00 93 Mechanical Ventilator 65 08/25/16 08:00 99.3 106 27 102/57 96 08/25/16 08:00 65 08/25/16 04:02 97 65 08/25/16 04:00 65 08/25/16 04:00 99.5 106 30 101/62 98 08/25/16 02:00 104 08/25/16 01:39 96 65 08/25/16 00:00 65 08/25/16 00:00 84 08/25/16 00:00 96.4 84 22 103/56 96 08/24/16 22:00 78 08/24/16 21:41 100 65 08/24/16 20:00 95.4 76 21 133/68 100 08/24/16 20:00 75 08/24/16 20:00 76 08/24/16 19:00 Mechanical Ventilator 75 08/24/16 16:00 89 24 98/61 92 08/24/16 15:55 100 100 I/O 08/24/16 08/24/16 08/24/16 08/25/16 08/25/16 08/25/16 07:00 15:00 23:00 07:00 15:00 23:00 Intake Total 480 ml 1997 ml 2361 ml Output Total 450 ml 650 ml 400 ml 225 ml Balance -450 ml -170 ml 1597 ml 2136 ml Intake Oral 480 ml IV Total 1195 ml 2361 ml Packed Cells 500 ml FFP 302 ml Output Urine Total 450 ml 650 ml 200 ml 175 ml Gastric Drainage Total 200 ml 50 ml Bladder Scan Volume Amount 712 ml # Bowel Movements 0 0 0 Laboratory Laboratory Tests Test 08/24/16 08/24/16 08/24/16 08/24/16 15:57 16:10 16:13 16:24 Blood Gas Puncture Site RT RADIAL Blood Gas Patient Temperature 98.6 Blood Gas HCO3 24 Blood Gas Base Excess -1.3 Blood Gas Oxygen Saturation 98 Arterial Blood pH 7.31 Arterial Blood Partial 50 Pressure CO2 Arterial Blood Partial 445 Pressure O2 Arterial Blood Oxygen Content 8.9 Arterial Blood 1.5 Carboxyhemoglobin Arterial Blood Methemoglobin 1.0 Blood Gas Hemoglobin 5.6 Oxygen Delivery Device VENTILATOR Blood Gas Ventilator Setting 500/20/PEEP10 Blood Gas Inspired Oxygen 100 White Blood Count 33.9 Red Blood Count 1.74 Hemoglobin 5.4 Hematocrit 16.7 Mean Corpuscular Volume 95.6 Mean Corpuscular Hemoglobin 30.8 Mean Corpuscular Hemoglobin 32.2 Concent Red Cell Distribution Width 14.3 Platelet Count 316 Mean Platelet Volume 8.9 Neutrophils (%) (Auto) 89.2 Lymphocytes (%) (Auto) 4.9 Monocytes (%) (Auto) 5.5 Eosinophils (%) (Auto) 0.1 Basophils (%) (Auto) 0.3 Neutrophils # (Auto) 30.2 Lymphocytes # (Auto) 1.7 Monocytes # (Auto) 1.9 Eosinophils # (Auto) 0.0 Basophils # (Auto) 0.1 CBC Comment AUTO DIFF Differential Total Cells 100 Counted Neutrophils % (Manual) 64 Band Neutrophils % 14 Lymphocytes % 13 Monocytes % 5 Neutrophils # (Manual) 27.8 Metamyelocytes 1 Myelocytes 3 Differential Comment FINAL DIFF MANUAL Platelet Estimate NORMAL Platelet Morphology Comment NORMAL Red Cell Morphology Comment NORMAL Sodium Level 135 Potassium Level 3.3 Chloride Level 86 Carbon Dioxide Level 28.2 Anion Gap 21 Blood Urea Nitrogen 80 Creatinine 2.75 Estimat Glomerular Filtration 23 Rate Random Glucose 183 Calcium Level 7.7 Blood Type O POSITIVE O POSITIVE Lactic Acid Level 11.4 Antibody Screen NEGATIVE Crossmatch Leukocyte-Reduced Red Blood Cells Blood Bank Comment Test 08/24/16 08/24/16 08/25/16 08/25/16 17:16 21:00 00:50 05:40 Crossmatch Leukocyte-Reduced Red Blood Cells Blood Bank Comment Hemoglobin 9.0 9.7 9.3 Hematocrit 26.4 27.6 27.3 Prothrombin Time 13.9 13.4 Prothromb Time International 1.2 1.2 Ratio Activated Partial 46.4 Thromboplast Time Fibrinogen 151 Total Creatine Kinase 386 284 Creatine Kinase MB 19.3 Creatine Kinase MB % 5.0 Troponin I 0.44 0.66 White Blood Count 42.6 Red Blood Count 3.16 Mean Corpuscular Volume 86.3 Mean Corpuscular Hemoglobin 29.5 Mean Corpuscular Hemoglobin 34.2 Concent Red Cell Distribution Width 16.4 Platelet Count 217 Mean Platelet Volume 8.6 Neutrophils (%) (Auto) Lymphocytes (%) (Auto) Monocytes (%) (Auto) Eosinophils (%) (Auto) Basophils (%) (Auto) Neutrophils # (Auto) Lymphocytes # (Auto) Monocytes # (Auto) Eosinophils # (Auto) Basophils # (Auto) CBC Comment AUTO DIFF Differential Total Cells 100 Counted Neutrophils % (Manual) 28 Band Neutrophils % 48 Lymphocytes % 2 Monocytes % 3 Neutrophils # (Manual) 40.5 Metamyelocytes 18 Myelocytes 1 Nucleated Red Blood Cells 3 Differential Comment FINAL DIFF MANUAL Platelet Estimate NORMAL Platelet Morphology Comment ENLARGED Sodium Level 136 Potassium Level 3.1 Chloride Level 94 Carbon Dioxide Level 28.5 Anion Gap 14 Blood Urea Nitrogen 77 Creatinine 2.46 Estimat Glomerular Filtration 26 Rate Random Glucose 112 Lactic Acid Level 1.5 Calcium Level 7.2 Protein Corrected Calcium 8.5 Total Bilirubin 0.6 Aspartate Amino Transf 102 (AST/SGOT) Alanine Aminotransferase 65 (ALT/SGPT) Alkaline Phosphatase 70 B-Type Natriuretic Peptide 460 Total Protein 4.7 Albumin 1.8 Random Vancomycin Level 33.2 Test 08/25/16 08/25/16 09:46 12:21 Blood Gas Puncture Site RT RADIAL Blood Gas Patient Temperature 98.6 Blood Gas HCO3 26 Blood Gas Base Excess 1.3 Blood Gas Oxygen Saturation 93 Arterial Blood pH 7.37 Arterial Blood Partial 47 Pressure CO2 Arterial Blood Partial 80 Pressure O2 Arterial Blood Oxygen Content 14.2 Arterial Blood 1.2 Carboxyhemoglobin Arterial Blood Methemoglobin 1.1 Blood Gas Hemoglobin 10.8 Oxygen Delivery Device VENTILATOR Blood Gas Ventilator Setting 500/20/PEEP10 Blood Gas Inspired Oxygen 65 Hemoglobin 9.6 Hematocrit 28.0 Date/Time Procedure Status Source Growth 08/25/16 04:27 Aerobic Blood Culture Received Blood Peripheral Pending 08/25/16 04:27 Anaerobic Blood Culture Received Blood Peripheral Pending 08/22/16 12:45 Aerobic Blood Culture - Preliminary Resulted Blood Peripheral NO GROWTH IN 3 DAYS 08/22/16 12:45 Anaerobic Blood Culture - Preliminary Resulted Blood Peripheral NO GROWTH IN 3 DAYS 08/21/16 09:50 Urine Culture - Final Complete Urine Catheterized Urine NO GROWTH IN 48 HOURS. Imaging Last Impressions Renal Ultrasound 08/25/16 0000 Signed Impressions: Service Date/Time: Wednesday, August 24, 2016 21:53 - CONCLUSION: 1. There is no hydronephrosis. Both kidneys demonstrate mild increased echotexture of the parenchyma suggesting medical renal disease. 2. Trace perihepatic free fluid and bilateral pleural effusions. Lex Malik MD Chest X-Ray 08/24/16 0000 Signed Impressions: Service Date/Time: Wednesday, August 24, 2016 16:29 - CONCLUSION: 1. Endotracheal tube is in appropriate position with tip measuring 6.3 cm from the michele. 2. Mild bibasilar airspace consolidation that is new on the right and increased on the left. Lex Malik MD Abdomen X-Ray 08/24/16 0000 Signed Impressions: Service Date/Time: Wednesday, August 24, 2016 17:19 - CONCLUSION: 1. Small bowel dilatation which reflect ileus or obstruction. Followup examination is recommended if clinically indicated. Gareth Escalante MD Physical Exam HEENT: Normocephalic; atraumatic; no jaundice CHEST: Resp even. diminished. OETT to vent CARDIAC: Tachycardia, hypotensive on vasopressors ABDOMEN: Soft, no hepatosplenomegaly; bowel sounds are present in all four quadrants. Large ventral hernia reducible SKIN: Skin dusky, cool to touch, dry [employer] PROFESSIONAL: Unresponsive Assessment and Plan Plan ASSESSMENT: - Massive GIB with older appearing dark maroon gastric secretions. Pt is s/p CODE BLUE, vomiting large amount of dark maroon secretions on 08/24 and HH dropped to 5.4/16.7. According to the chart , he has a hx of perforated gastric ulcer. Recent EGD (08/10/16)---> mild gastritis, nodules in the EG junction, moderate esophagitis, normal endoscopy otherwise, retroflexed views revealed no abnormalities. Pathology revealed mild active chronic gastritis, nodule GE junction with gastric mucosa with mild chronic inflammation of the lamina propria and foveolar hyperplasia, acutely inflamed squamous mucosa and detached fragments of acute inflammatory exudate multiple budding yeast and pseudohyphae are present in exudate, acutely ulcerated mucosa of distal esophagus with numerous budding yeast and pseudohyphae invading tissue, consistent with mary kay esophagitis. Colonoscopy (08/11/16) with polypectomy and ablation of polyp in ascending colon with hot snare. Ascending colon with markedly cauterized colonic mucosa with features suggestive of hyperplastic polyp. NPO. OGT to LIWS- now passing more jazzmine red blood. S/P 4 units PRBC, 2 units FFP. Protonix Gtt. Diflucan. - Anemia secondary acute blood loss. S/P 4 units PRBC, 2 units FFP. 9.6/28.0. - Ileus vs. Bowel obstruction. Abdomen X-Ray (08/24/16)---> 1. Small bowel dilatation which reflect ileus or obstruction. Followup examination is recommended if clinically indicated. Per family no bm during this hospitalization. OGT to LIWS. Will consider CT after EGD. - Recent mary kay esophagitis. Diflucan, Protonix gtt. - S/P CODE BLUE (08/24). Pt with ROSC after 15 MN. Now intubated in unit on vasopressors. - Acute respiratory failure with COPD and suspected HCAP. Vent, Nebs, Abx per [facility] - Large Ventral hernia, reducible. Has seen Dr. Roberts in past. PLAN: - Plan for EGD today - Obtain consents - NPO - OGT to LIWS - Protonix Gtt - Diflucan - Monitor HH - Transfuse as necessary - Consider CT Scan abdomen and pelvis with po contrast only after EGD - Supportive care - Further recommendations to follow based on results of above - PT seen and examined by Dr. Radford and myself and this note is written on his behalf Ronna Aldrich Aug 25, 2016 14:34
[2016-08-25] MEDS: NOREPINEPHRINE-DEXTROSE DRIP 250 ML IV SCH ×2 (14:49→17:50)
[2016-08-25] MEDS: FLUCONAZOLE 200 MG PREMIX BAG 100 ML IV SCH (17:05)
[2016-08-25] MEDS ORDERED: DIATRIZOATE MEGLUM/DIATRIZOATE SOD 9 ML CUP PO ONE (17:31)
--- NOTE | 2016-08-25 17:41 | PD.PROCEDR ---
GI Procedure REFERRING PHYSICIAN Dr. Harrison PROCEDURE PERFORMED EGD INDICATION FOR PROCEDURE Upper GI bleed PROCEDURE: The procedure, risks and benefits were discussed with Mr. Thomason and informed consent was obtained. Anesthesia sedated him with Diprivan. He was placed in the left lateral decubitus position. EGD: The Pentax videoscope was introduced through the oropharynx and advanced to the second portion of the duodenum under direct visualization. Retroflexion was performed in the stomach. FINDINGS: Esophagus there was a proximal esophageal nipple that suggests a vessel heart to state if this is or is not no distinct ulceration the concern would be a fistula opening there was no active bleeding no therapy was performed at this point for fear of this being a aortic esophageal fistula and further evaluation is needed prior to any intervention Stomach this was half filled with gastric juices and clots but no active bleeding was noted there was a slight pyloric deformity from prior ulcerations and surgery this was wide open The duodenum and this appeared to be unremarkable ESTIMATED BLOOD LOSS: None SPECIMENS REMOVED: None COMPLICATIONS: None IMPRESSION: Proximal esophageal lesion possibly vascular in nature Incomplete evaluation of the stomach Deformed pylorus PLAN: Case discussed with Dr. Harrison will need to order a CT of the chest and neck to further evaluate for a aortic esophageal fistula If any active bleeding then one should contemplate a Gilles tube placement and possible angiography Patient will most likely require repeat EGD with possible therapy to this lesion in the proximal esophagus Continue with current supportive care Joe Obrien MD Aug 25, 2016 17:40
[2016-08-25] MEDS: VASOPRESSIN INJ 40 UNITS in DEXTROSE 5% IN WATER 100ML INJ 98 ML IV SCH ×2 (17:51)
[2016-08-25] MEDS ORDERED: POTASSIUM CHLOR 40 MEQ PREMIX 100 ML IV ONE (18:00)
[2016-08-25 18:26] LABS: BACTERIA, URINE OCC /hpf; BLOOD, URINE MOD (NEG); COMMENT (UR) CATH-CULTURE IND; CULTURE IF INDICATED CATH CULTURE IND; GLUCOSE,URINE NEG (NEG); KETONE, URINE NEG (NEG); MUCUS URINE FEW /lpf (OCC); NITRITE,URINE NEG (NEG); URINE COLOR YELLOW (YELLW/STRAW)
--- NOTE | 2016-08-25 18:39 | MG ---
cc: TAYLOR THOMPSON M.D. Lab No: Date: 08/25/2016 Age: Sex: M Race: REQUESTING PHYSICIAN Dr. Espinoza. INTRODUCTION An EEG was obtained on this 71-year-old patient with a history of being intubated, kidney failure and decreased responsiveness. Versed was turned off. DESCRIPTION The EEG shows low amplitude beta activity. There are some alpha rhythms and some theta rhythms. The background appears to be symmetrical and predominantly asleep. There is some background reactivity occasionally. Photic stimulation was unremarkable. Towards the end there is more suggestion of background reactivity. INTERPRETATION Abnormal EEG because of some generalized attenuation and slowing but the background overall appears to be reactive suggesting a [id number] encephalopathy rather than a more severe process. No epileptiform features present. MD LANIE Vallejo/KK /6:18 PM /6:35 PM
[2016-08-25] MEDS: CHLORHEXIDINE 0.12% (ORAL KIT) 15 ML CUP MT SCH (19:46)
[2016-08-25] MEDS ORDERED: ATROPINE SULFATE 1 MG/10 ML SYRINGE ONE (20:29)
[2016-08-25] MEDS ORDERED: EPINEPHrine HCL (1:10,000) 1 MG/10 ML SYRINGE ONE (20:29)
[2016-08-25] MEDS ORDERED: LIDOCAINE HCL 2% 100 MG/5 ML SYRINGE ONE (20:29)
[2016-08-25] MEDS: SODIUM CHLORIDE 0.9% FLUSH 5 ML FLUSH FLUSH SCH (20:33)
--- NOTE | 2016-08-25 21:55 | RADRPT ---
EXAM DATE/TIME: 08/25/2016 20:20 [facility] COMPARISON: CT ABDOMEN & PELVIS W/O CONTRAST, August 04, 2016, 1:07. INDICATIONS : Distension; evaluate for small bowel obstruction. ORAL CONTRAST: Prescribed oral contrast ingested. RADIATION DOSE: 15.83 CTDIvol (mGy) ; Combined studies - Thorax/Abdomen/Pelvis MEDICAL HISTORY : Cardiovascular disease. Hypertension. Chronic obstructive pulmonary disease.Ulcers; Hernia, GERD; Pro state cancer. SURGICAL HISTORY : Appendectomy. Hernia repair ENCOUNTER: Initial ACUITY: 1 day PAIN SCALE: Non-responsive LOCATION: Abdomen/pelvis TECHNIQUE: Volumetric scanning of the abdomen and pelvis was performed. Using automated exposure control and ad justment of the mA and/or kV according to patient size, radiation dose was kept as low as reasonably achievable to obtain optimal diagnostic quality images. FINDINGS: Patient has a ventral hernia that measures approximately 15 cm across. It appears to have been previo usly repaired. Quite a bit of scarring and induration involving the fat within the hernia sac and the overlying skin also appears thickened. There is small bowel within the hernia. The small bowel upstr eam of the hernia sac is markedly distended and the small bowel downstream of the hernia sac is decom pressed. The point of obstruction is probably at the level of the proximal ileum. I don't see a mass. Stomach is distended. Nasogastric tube in place. Tip is at the level of the antrum. No acute solid organ abnormality demonstrated on these noncontrast images. CONCLUSION: 1. Ventral hernia containing small bowel and with associated small bowel obstruction. The defect is b road; I believe the obstruction is probably related to scarring and/or adhesions within the hernia sa c. I don't see a mass. 2. Distended stomach despite NG tube present. 3. Severe aortoiliac atherosclerosis. No aneurysm. Lex Lopez MD on August 25, 2016 at 21:45 Board Certified Radiologist. This report was verified electronically.
--- NOTE | 2016-08-25 22:09 | RADRPT ---
EXAM DATE/TIME: 08/25/2016 21:20 [facility] COMPARISON: CT ABDOMEN & PELVIS W/O CONTRAST, August 25, 2016, 20:20. INDICATIONS : Evaluate for aspiration. RADIATION DOSE: 15.83 CTDIvol (mGy) ; Reconstructed from previous dataset MEDICAL HISTORY : Cardiovascular disease. Hypertension. Chronic obstructive pulmonary disease. Ulcers; Hernia, GERD; Pr ostate cancer. SURGICAL HISTORY : Appendectomy. Hernia repair. ENCOUNTER: Initial ACUITY: 1 day PAIN SCALE: Non-responsive LOCATION: chest TECHNIQUE: Volumetric scanning of the chest was performed. Using automated exposure control and adjustment of t he mA and/or kV according to patient size, radiation dose was kept as low as reasonably achievable to obtain optimal diagnostic quality images. FINDINGS: Patchy air space consolidation seen throughout both lungs. At the bases, there is dependent atelectas is and small effusions as well. No pneumothorax. There are mediastinal lymph nodes that measure up to 13 mm in greatest short axis dimension. Normal heart size. Coronary artery calcification noted. There is body wall edema/anasarca. Bilateral gynecomastia noted. The right third, fourth and fifth ribs are fractured laterally and the fractures appear fairly recent . No significant healing is demonstrated. There are fractures more anteriorly of the right second and third ribs that appear old, healed. CONCLUSION: 1. Bilateral pneumonia and aspiration would be in the differential. There is dependent consolidation/ atelectasis and small effusions of the bases as well. 2. Upper limits of normal to mildly enlarged mediastinal lymph nodes, most likely reactive. 3. Coronary artery calcification. 4. Right rib fractures, including acute fractures laterally of the third, fourth and fifth. There are old, healed fractures anteriorly of the right second and third ribs.. Lex Lopez MD on August 25, 2016 at 22:01 Board Certified Radiologist. This report was verified electronically.
[2016-08-25] MEDS: SODIUM CHLORIDE 0.9% FLUSH 5 ML FLUSH FLUSH PRN (23:46)
[2016-08-26] VITALS (19 sets, daily range): BP systolic 107–134; BP diastolic 51–68; PULSE 76–98; RESP 23–32; TEMP 97–99.7; O2SAT 96–100
[2016-08-26] MEDS: SODIUM CHLOR 0.9% 1000 ML INJ 1,000 ML IV SCH ×3 (00:33→16:20)
[2016-08-26] MEDS: NOREPINEPHRINE-DEXTROSE DRIP 250 ML IV SCH (03:24)
[2016-08-26] MEDS: PIPERACIL-TAZO 3.375 GM PREMIX 50 ML IV SCH ×4 (03:24→20:10)
[2016-08-26] MEDS: RESP: ALBUTEROL 2.5 MG/IPRATROPIUM 0.5 MG NEB (SCH) NEB (04:16)
[2016-08-26] MEDS: CHLORHEXIDINE GLUCONATE 2 % 1 PACK (2 CLOTHS) TOP SCH (04:36)
[2016-08-26] MEDS: HYDROCORTISONE SOD SUCCINATE 100 MG VIAL IV PUSH SCH ×3 (05:12→17:59)
[2016-08-26] MEDS: SODIUM CHLORIDE 0.9% FLUSH 5 ML FLUSH FLUSH PRN (05:13)
--- NOTE | 2016-08-26 05:14 | RADRPT ---
EXAM DATE/TIME: 08/26/2016 04:01 [facility] COMPARISON: CHEST SINGLE AP, August 24, 2016, 16:29. INDICATIONS : Shortness of breath. MEDICAL HISTORY : Hypertension. Cardiovascular disease. Chronic obstructive pulmonary disease. Ulcers; Hernia, GERD , Prostate cancer SURGICAL HISTORY : Appendectomy. Hernia repair ENCOUNTER: Subsequent ACUITY: 4 - 6 days PAIN SCORE: Non-responsive. LOCATION: Bilateral chest FINDINGS: A single view of the chest demonstrates worsening bibasilar airspace disease with associated effusion s. Interstitial prominence characteristic of some degree of vascular congestion or volume overload. H eart size is normal. Endotracheal tube is stable in position with the nasogastric tube crossing the G E junction and extending off the inferior aspect of the image. Old fracture deformity of the proximal left humerus. CONCLUSION: 1. Worsening bibasilar effusions/atelectasis with diffuse interstitial edema, all characteristic of C HF. 2. Endotracheal tube remains appropriately positioned above the michele Con Valdes MD on August 26, 2016 at 5:09 Board Certified Radiologist. This report was verified electronically.
[2016-08-26 05:35] LABS: HEMATOCRIT 25.5 % (39.0-51.0); MEAN CELL VOLUME 87.8 FL (80.0-100.0); MEAN CORPUSCULAR HEMOGLOBIN 29.9 PG (27.0-34.0); PLATELET COUNT 196 TH/MM3 (150-450); RED BLOOD COUNT 2.91 MIL/MM3 (4.50-5.90); RED CELL DISTRIBUTION WIDTH 16.9 % (11.6-17.2); WHITE BLOOD COUNT 58.2 TH/MM3 (4.0-11.0)
[2016-08-26 05:52] LABS: HEMO FLAGS AUTO DIFF
[2016-08-26 06:00] LABS: ALT (GPT) 59 U/L (12-78); ANION GAP 17 MEQ/L (5-15); AST (GOT) 66 U/L (15-37); BICARBONATE 22.9 MEQ/L (21.0-32.0); BLOOD UREA NITROGEN 83 MG/DL (7-18); CHLORIDE 97 MEQ/L (98-107); GLOMERULAR FILTRATION RATE 23 ML/MIN (>89); MAGNESIUM 1.8 MG/DL (1.5-2.5); POTASSIUM 3.4 MEQ/L (3.5-5.1); SODIUM (NA) 137 MEQ/L (136-145)
[2016-08-26 06:02] LABS: ALKALINE PHOSPHATASE 109 U/L (45-117); TOTAL BILIRUBIN ADULT 0.4 MG/DL (0.2-1.0)
[2016-08-26 06:42] LABS: BANDS 47 % (0-6); METAMYELOCYTES 1 % (0-1); MYELOCYTES 1 % (0-0); NEUTROPHIL # MANUAL DIFF 52.4 TH/MM3 (1.8-7.7); POLYS (SEG NEUTROPHILS) 41 % (16-70); WBC DIFF SAMPLE 100
[2016-08-26 06:43] LABS: DOHLE BODIES PRESENT (NONE SEEN)
[2016-08-26 06:45] LABS: PLATELET ESTIMATE SMEAR NORMAL (NORMAL); PLATELET MORPHOLOGY NORMAL (NORMAL); SCAN/DIFF FINAL DIFF MANUAL; TOXIC GRANULATION 1+ (NORMAL)
--- NOTE | 2016-08-26 07:26 | HHI.CCPN ---
Subjective Remarks/Hospital Course 08/24: 71 Year-old male with a medical history significant for COPD on home oxygen who was recently admitted with suspected sepsis/H And was initiated on IV antibiotics and steroids. He had recently been evaluated by GI and underwent EGD on 08/10/2016 and was found to have moderate esophagitis, mild gastritis with pathology subsequently showing Ashley esophagitis as well as colonoscopy on 08/11/2016 with polypectomy and ablation of polyp in ascending colon with hot snare. Patient has been dealing with constipation since his admission. Today when he was trying to have a bowel movement he suddenly became less responsive and then had a large emesis which resulted in aspiration and hemodynamic collapse. Patient initially had large volume emesis with dark maroon blood. CODE BLUE cardiac arrest code was activated. On my arrival patient was in bed CPR had been initiated. Significant gastric contents was still being suctioned out of his oral cavity. ACLS protocol was continued. Patient was intubated following vigorous suctioning of gastric contents from oral cavity as well as with placement of NG tube which is hooked up to suction and about 1.5 L of gastric contents being suctioned out which appeared to be dark maroon in color. Patient initially had a pulse when CODE BLUE was called and subsequently went in PEA arrest followed by asystole during ACLS and then V. fib for which he was defibrillated with 200 J 1, CPR/ACLS protocol was continued and patient eventually had return of spontaneous circulation after about 15 minutes of CPR/ACLS. Patient was transferred to [facility] and placed on mechanical ventilation. I emergently placed left femoral central line for central vascular access and he was started on Levophed for pressor support. 2 units of O- 1 crossmatch blood were ordered and transfused stat. He also received 1 L of normal saline bolus following return of spontaneous circulation. Stat labs were ordered. His hemoglobin on ABG done post resuscitation was 5.6. I did order Protonix 80 mg IV stat followed by 8 mg per hour IV infusion. Patient remained encephalopathic though was minimally responsive following transfer to the ICU. GI consult was requested and I spoke with Dr. Zamarripa at bedside on his arrival. History was obtained by reviewing records, discussion with family/ GI as well as nursing staff. According to patient's daughter he has not been doing well for the last few months in terms of his breathing and has been using his home oxygen more often. He gets extremely short of breath even with the least exertion. 08/25: Remains encephalopathic/ sedated, orally intubated on [facility] ventilation. Transiently off levophed last night however back to 11 mcg/min currently. Hgb up to 9.4 following 4 units PRBCs transfused last night. Subjective 08/26: Tmax 99. Some unresponsive on the ventilator. CT abdomen/pelvis less than revealed small bowel obstruction at site of ventral hernia. No further bleeding noted. Gastric output approximately 700 cc. No bowel movement. Objective Vital Signs Date Time Temp Pulse Resp B/P Pulse Ox O2 Delivery O2 Flow Rate FiO2 08/26/16 06:00 78 08/26/16 04:26 97 60 08/26/16 04:00 98.1 30 107/60 08/25/16 20:00 Mechanical Ventilator 08/24/16 08:45 4.00 Intake and Output 08/25/16 08/25/16 08/26/16 08:00 16:00 00:00 Intake Total 2361 ml 1631 ml 1894 ml Output Total 225 ml 200 ml 600 ml Balance 2136 ml 1431 ml 1294 ml Result Diagram: 08/26/16 0452 08/26/16 0452 Other Results Microbiology Date/Time Procedure Status Source Growth 08/25/16 18:00 Urine Culture Received Urine Catheterized Urine Pending 08/25/16 04:27 Aerobic Blood Culture Received Blood Peripheral Pending 08/25/16 04:27 Anaerobic Blood Culture Received Blood Peripheral Pending 08/22/16 12:45 Aerobic Blood Culture - Preliminary Resulted Blood Peripheral NO GROWTH IN 3 DAYS 08/22/16 12:45 Anaerobic Blood Culture - Preliminary Resulted Blood Peripheral NO GROWTH IN 3 DAYS 08/21/16 09:50 Urine Culture - Final Complete Urine Catheterized Urine NO GROWTH IN 48 HOURS. Imaging Last Impressions Chest X-Ray 08/26/16 0600 Signed Impressions: Service Date/Time: Friday, August 26, 2016 04:01 - CONCLUSION: 1. Worsening bibasilar effusions/atelectasis with diffuse interstitial edema, all characteristic of CHF. 2. Endotracheal tube remains appropriately positioned above the michele Con Valdes MD Renal Ultrasound 08/25/16 0000 Signed Impressions: Service Date/Time: Wednesday, August 24, 2016 21:53 - CONCLUSION: 1. There is no hydronephrosis. Both kidneys demonstrate mild increased echotexture of the parenchyma suggesting medical renal disease. 2. Trace perihepatic free fluid and bilateral pleural effusions. Lex Malik MD Chest CT 08/25/16 0000 Signed Impressions: Service Date/Time: Thursday, August 25, 2016 21:20 - CONCLUSION: 1. Bilateral pneumonia and aspiration would be in the differential. There is dependent consolidation/atelectasis and small effusions of the bases as well. 2. Upper limits of normal to mildly enlarged mediastinal lymph nodes, most likely reactive. 3. Coronary artery calcification. 4. Right rib fractures, including acute fractures laterally of the third, fourth and fifth. There are old, healed fractures anteriorly of the right second and third ribs.. Lex Lopez MD Abdomen/Pelvis CT 08/25/16 0000 Signed Impressions: Service Date/Time: Thursday, August 25, 2016 20:20 - CONCLUSION: 1. Ventral hernia containing small bowel and with associated small bowel obstruction. The defect is broad; I believe the obstruction is probably related to scarring and/or adhesions within the hernia sac. I don't see a mass. 2. Distended stomach despite NG tube present. 3. Severe aortoiliac atherosclerosis. No aneurysm. Lex Lopez MD Abdomen X-Ray 08/24/16 0000 Signed Impressions: Service Date/Time: Wednesday, August 24, 2016 17:19 - CONCLUSION: 1. Small bowel dilatation which reflect ileus or obstruction. Followup examination is recommended if clinically indicated. Gareth Escalante MD Objective Remarks GENERAL: 71-year-old male, critically ill currently resting in bed SKIN: Warm and dry. No rash HEAD: Atraumatic. Normocephalic. EYES: Pupils equal and round about 2-3 mm bilaterally and reactive. No scleral icterus. No injection or drainage. ENT: No nasal bleeding or discharge. Mucous membranes pink and moist. NECK: Trachea midline. No JVD. CARDIOVASCULAR: Regular rate and rhythm. S1, S2. No S4. Without murmur RESPIRATORY: Diminished breath sounds throughout, specifically at the bases bilaterally. Positive expiratory wheeze. Breath sounds equal bilaterally. GASTROINTESTINAL: Abdomen significant ventral hernia. No bowel sounds are appreciated. Dark brown output from NG tube MUSCULOSKELETAL: Extremities with 1+ peripheral edema. No obvious deformities. NEUROLOGICAL: Arousable on the ventilator to stimulation. Currently not following commands. Opens eyes to voice. Withdraws to pain in all 4 extremities. Urinary Catheter: Yes Assessment to: Continue Hammond insert reason: Prolonged Immobilization Vascular Central Line Catheter: Yes Date of Insertion: Aug 24, 2016 Line: Central Venous Catheter Side: Left Location: Internal, Jugular A/P Assessment and Plan Neuro/Psych: Status post CPR 15 minutes - possible anoxic encephalopathy Depression NOS Follow neuro status. Versed for sedation current 5 mg an hour for sedation while intubated Goal of RASS -2. Concern for anoxic encephalopathy following cardiac arrest. EEG revealed mild to moderate encephalopathy. No full-term activity. Holding trazodone 50 mg at night Cardiovascular: Cardiac arrest status post CPR Elevated troponin History dyslipidemia History of hypertension PVD Systemic shock likely secondary to sepsis/aspiration/small bowel obstruction Currently norepinephrine at 5 mcg/m and vasopressin 0.03 units an hour to maintain MAP greater than 65 Currently normal saline at 125 cc an hour. Holding home medication Cardizem 120 mg by mouth daily Not on any lipid-lowering agents at home. Cardiac arrest status post CPR. s/p aggressive fluid resuscitation. 4 units PRBCs transfused. minimal troponin elevation following cardiac arrest noted. Echo 2/central revealed EF 55%. Moderate LVH. Mitral valve calcified. Mild TR. Pulmonary: Acute respiratory failure secondary to aspiration pneumonia End-stage COPD. Oxygen dependent FEV1 28%, FVC 1.6. ACV 20/500/10/60 bronchodilators every 6 hours and as needed, At home on Symbicort 160/4.5 twice a day and duo nebs 4 times a day prednisone switched to IV hydrocortisone 50 mg IV every 6 hours. Titrate FiO2 down provided O2 sat greater than 90%. CT chest revealed small pleural effusions bilaterally with likely aspiration Spontaneous breathing trials when clinically indicated GI/liver: History of ventral hernia Hypokalemia Nothing by mouth, NG suction. Protonix 80 mg IV bolus followed by 8 mg/h IV infusion. GI consulted and discussed this with Dr. Radford on 08/24. Being resuscitated currently. EGD revealed 25 cm proximal esophagus with possible bleeding. Rule out aorto esophageal fistula. GI. Small bowel obstruction Upper GI bleed plus esophageal rule out aorto esophageal fistula History of Ashley esophagitis History of colonic polyps History of ventral hernia status post repair last by Dr. Roberts CT abdomen/pelvis the sesamoid revealed small bowel obstruction level but hernia. Severe aortoiliac disease. Spoke with Dr. Godoy. He will evaluate for Dr. roberts. Very poor surgical candidate this time. EGD yesterday revealed esophageal nipple. Clots noted within the gastric contents without active bleeding. Recommended CTA rule out aorto esophageal fistula however cannot perform due to elevated creatinine. Hemoglobin appears stable. Gilles if continues upper GI bleed Continue NG tube to LIWS. 700 cc past [address] roberts/general surgery. He raises his an ileus. Renal/: Acute kidney injury History of bladder outlet obstruction IV hydration, strict intake output, monitor and replete electro lites, follow BUN creatinine. Currently holding Flomax 0.4 mg daily No hydronephrosis on CT abdomen/pelvis Check your left lites/eosinophils ID: UTI Sepsis Repeat blood and sputum cultures, UA and urine cultures have indicated. Appreciate ID consult with worsening leukocytosis and septic shock Empiric antibiotic coverage with IV vancomycin and Zosyn to be continued. IV Diflucan started by GI for Ashley esophagitis. Worsening leukocytosis noted. ID consult requested for septic shock with worsening leukocytosis. Endocrine: Chronic prednisone use secondary to COPD SSI for glycemic control as needed. Switch to hydrocortisone 50 mg IV every 6 hourly for stress dose as patient has been on by mouth prednisone. Heme: Acute blood loss anemia History of prostate cancer Status post 4 units PRBCs ands 2 units FFP on 08/24. Follow CBC and coags. FEN: Replace electrolytes as clinically indicated MSK: PT/OT evaluate and treat Access - Left IJ CVL day 1 Prophylaxis - GI -Protonix drip - DVT - SCD/pharmacological prophylaxis contraindicated with GI bleed Critical Care: The total critical care time was 45 minutes. Time to perform other separately billable procedures was not included in the critical care time. Discuss with daughter at bedside. Care plan discussed and all questions answered. Jas Persaud MD Aug 26, 2016 07:26
--- NOTE | 2016-08-26 07:55 | PD.PROCEDR ---
Central Line Procedure REASON FOR PROCEDURE Central venous access PROCEDURE PERFORMED Central line placement: Left IJ CVL CONSENT Informed consent for procedure was obtained. The risks and benefits of the procedure were discussed to include but limited to bleeding, clot formation, infection, and even . ANESTHESIA Local injection of 1% Lidocaine DESCRIPTION OF THE PROCEDURE The patient was placed in supine, mild Trendelenburg position. The area was exposed and cleansed with ChloraPrep, times two. Large sterile drape was used to cover the patient, with the site exposed, under sterile conditions including cap, face mask, sterile gown, and sterile gloves. On single attempt, the introducer needle was inserted with negative pressure in syringe and venous flash was obtained. The guide wire was then advanced without any restriction and the needle was removed. The dilator was used without any complications. Using Seldinger technique the triple-lumen catheter was advanced over the guide wire to a depth of 20 centimeters. The guide wire was removed. All ports were aspirated with dark venous blood return and flushed easily with sterile saline. All ports were capped. Antibiotic disc was placed around central line at puncture site. The central line was secured to the skin with two interrupted 2.0 silk sutures. The area was bandaged with sterile see-through central line bandage. RADIOLOGICAL DATA Ultrasound guidance was used to locate left internal jugular vein. Doppler/ color flow was used to confirm venous flow. COMPLICATIONS: No apparent complications ESTIMATED BLOOD LOSS: Less than 1 cc. Jas Persaud MD Aug 26, 2016 07:55
[2016-08-26] MEDS: PANTOPRAZOLE INJ 80 MG in SODIUM CHLORIDE 0.9% INJ 100 ML IV SCH ×2 (08:26→16:20)
[2016-08-26] MEDS: MULTIVITAMIN TAB PO SCH (09:00)
[2016-08-26] MEDS: SODIUM CHLORIDE 0.9% FLUSH 5 ML FLUSH IVF SCH (09:00)
--- NOTE | 2016-08-26 09:32 | RADRPT ---
EXAM DATE/TIME: 08/26/2016 08:14 [place] COMPARISON: CT THORAX W/O CONTRAST, August 25, 2016, 21:20. CHEST SINGLE AP, August 26, 2016, 4:01. INDICATIONS : Central line placement. MEDICAL HISTORY : Hypertension. Cardiovascular disease. Chronic obstructive pulmonary disease. Ulcers, hernia, GERD , prostate ca SURGICAL HISTORY : Appendectomy. hernia repair ENCOUNTER: Subsequent ACUITY: 4 - 6 days PAIN SCORE: Non-responsive. LOCATION: Bilateral upper chest FINDINGS: Portable AP view of the chest demonstrates left IJ central line distal tip in the SVC. ETT and NG tub e remain present. Bibasilar airspace consolidation remains present, right greater than left. No pneum othorax is visualized. CONCLUSION: Left IJ central line distal tip in the SVC. No pneumothorax is visualized. There is a stable appearan ce the lungs with bilateral airspace consolidation. Lex Malik MD on August 26, 2016 at 9:29 Board Certified Radiologist. This report was verified electronically.
[2016-08-26] MEDS: RESP: ALBUTEROL 2.5 MG/IPRATROPIUM 0.5 MG NEB (PRN) INH (09:53)
--- NOTE | 2016-08-26 10:01 | HHI.IDPN ---
Subjective Subjective Remarks Notes reviewed Discussed with RN Patient is afebrile Sedated on the vent On Levophed and vasopressin Had an upper endoscopy yesterday, and there was a questionable vascular lesion noted in the proximal esophagus, no active bleeding seen CT abdomen and pelvis with findings of small bowel obstruction within the large hernia WBC continues to rise, up to 58,000 today Creatinine also worsening up to 2.7 Chest x-ray with stable infiltrates Blood culture and urine culture pending Random Vanco level 22 Antibiotics Zosyn Vancomycin Lines L I J central line Past Medical History Hypertension COPD O2 dependent prostate cancer Bladder outlet obstruction Hyperlipidemia Past Surgical History Ventral hernia Appendectomy Perforated gastric ulcer surgery Cataract Upper and lower endoscopy Allergies: Coded Allergies: *MDRO Multi-Drug Resistant Organism (Verified Adverse Reaction, Unknown, ) MRSA (abdominal wound) 2015 per 04/10/2015 H&P MRSA PCR Screen #1 NEGATIVE - 08/21/16 Objective . Vital Signs Date Time Temp Pulse Resp B/P Pulse Ox O2 Delivery O2 Flow Rate FiO2 08/26/16 09:54 99 50 08/26/16 06:00 78 08/26/16 04:26 97 60 08/26/16 04:00 98.1 91 30 107/60 97 08/26/16 04:00 60 08/26/16 04:00 91 08/26/16 02:20 97 60 08/26/16 02:00 76 08/26/16 00:00 60 08/26/16 00:00 97.9 94 30 114/62 100 08/26/16 00:00 94 08/25/16 22:26 97 60 08/25/16 22:00 98 08/25/16 21:30 100 08/25/16 21:00 100 100 08/25/16 20:00 97 Mechanical Ventilator 60 08/25/16 20:00 60 08/25/16 20:00 102 08/25/16 20:00 99.0 102 30 102/62 97 08/25/16 16:00 65 08/25/16 16:00 97.5 98 31 100/52 95 08/25/16 12:22 93 65 08/25/16 12:00 65 08/25/16 12:00 99.0 107 34 108/65 94 3/7/17 3/7/17 3/8/17 15:00 23:00 07:00 Intake Total 1631 ml 1894 ml 1404 ml Output Total 200 ml 600 ml 700 ml Balance 1431 ml 1294 ml 704 ml IV Total 1631 ml 1414 ml 1344 ml Tube Irrigant 480 ml 60 ml Output Urine Total 150 ml 300 ml 350 ml Gastric Drainage Total 50 ml 300 ml 350 ml # Bowel Movements 0 0 . Laboratory Tests Test 08/24/16 08/24/16 08/25/16 08/25/16 16:10 21:00 00:50 05:40 White Blood Count 33.9 TH/MM3 42.6 TH/MM3 Red Blood Count 1.74 MIL/MM3 3.16 MIL/MM3 Hemoglobin 5.4 GM/DL 9.0 GM/DL 9.7 GM/DL 9.3 GM/DL Hematocrit 16.7 % 26.4 % 27.6 % 27.3 % Mean Corpuscular Volume 95.6 FL 86.3 FL Mean Corpuscular Hemoglobin 30.8 PG 29.5 PG Mean Corpuscular Hemoglobin 32.2 % 34.2 % Concent Red Cell Distribution Width 14.3 % 16.4 % Platelet Count 316 TH/MM3 217 TH/MM3 Mean Platelet Volume 8.9 FL 8.6 FL Neutrophils (%) (Auto) 89.2 % % Lymphocytes (%) (Auto) 4.9 % % Monocytes (%) (Auto) 5.5 % % Eosinophils (%) (Auto) 0.1 % % Basophils (%) (Auto) 0.3 % % Neutrophils # (Auto) 30.2 TH/MM3 TH/MM3 Lymphocytes # (Auto) 1.7 TH/MM3 TH/MM3 Monocytes # (Auto) 1.9 TH/MM3 TH/MM3 Eosinophils # (Auto) 0.0 TH/MM3 TH/MM3 Basophils # (Auto) 0.1 TH/MM3 TH/MM3 CBC Comment AUTO DIFF AUTO DIFF Differential Total Cells 100 100 Counted Neutrophils % (Manual) 64 % 28 % Band Neutrophils % 14 % 48 % Lymphocytes % 13 % 2 % Monocytes % 5 % 3 % Neutrophils # (Manual) 27.8 TH/MM3 40.5 TH/MM3 Metamyelocytes 1 % 18 % Myelocytes 3 % 1 % Differential Comment FINAL DIFF FINAL DIFF MANUAL MANUAL Platelet Estimate NORMAL NORMAL Platelet Morphology Comment NORMAL ENLARGED Red Cell Morphology Comment NORMAL Nucleated Red Blood Cells 3 /100 WBC Test 08/25/16 08/26/16 12:21 04:52 Hemoglobin 9.6 GM/DL 8.7 GM/DL Hematocrit 28.0 % 25.5 % White Blood Count 58.2 TH/MM3 Red Blood Count 2.91 MIL/MM3 Mean Corpuscular Volume 87.8 FL Mean Corpuscular Hemoglobin 29.9 PG Mean Corpuscular Hemoglobin 34.0 % Concent Red Cell Distribution Width 16.9 % Platelet Count 196 TH/MM3 Mean Platelet Volume 8.4 FL Neutrophils (%) (Auto) % Lymphocytes (%) (Auto) % Monocytes (%) (Auto) % Eosinophils (%) (Auto) % Basophils (%) (Auto) % Neutrophils # (Auto) TH/MM3 Lymphocytes # (Auto) TH/MM3 Monocytes # (Auto) TH/MM3 Eosinophils # (Auto) TH/MM3 Basophils # (Auto) TH/MM3 CBC Comment AUTO DIFF Differential Total Cells 100 Counted Neutrophils % (Manual) 41 % Band Neutrophils % 47 % Lymphocytes % 1 % Monocytes % 9 % Neutrophils # (Manual) 52.4 TH/MM3 Metamyelocytes 1 % Myelocytes 1 % Differential Comment FINAL DIFF MANUAL Toxic Granulation 1+ Dohle Bodies PRESENT Platelet Estimate NORMAL Platelet Morphology Comment NORMAL Laboratory Tests Test 08/24/16 08/24/16 08/24/16 08/25/16 16:10 16:13 21:00 05:40 Sodium Level 135 MEQ/L 136 MEQ/L Potassium Level 3.3 MEQ/L 3.1 MEQ/L Chloride Level 86 MEQ/L 94 MEQ/L Carbon Dioxide Level 28.2 MEQ/L 28.5 MEQ/L Anion Gap 21 MEQ/L 14 MEQ/L Blood Urea Nitrogen 80 MG/DL 77 MG/DL Creatinine 2.75 MG/DL 2.46 MG/DL Estimat Glomerular Filtration 23 ML/MIN 26 ML/MIN Rate Random Glucose 183 MG/DL 112 MG/DL Calcium Level 7.7 MG/DL 7.2 MG/DL Lactic Acid Level 11.4 mmol/L 1.5 mmol/L Total Creatine Kinase 386 U/L 284 U/L Creatine Kinase MB 19.3 NG/ML Creatine Kinase MB % 5.0 % Troponin I 0.44 NG/ML 0.66 NG/ML Protein Corrected Calcium 8.5 MG/DL Total Bilirubin 0.6 MG/DL Aspartate Amino Transf 102 U/L (AST/SGOT) Alanine Aminotransferase 65 U/L (ALT/SGPT) Alkaline Phosphatase 70 U/L B-Type Natriuretic Peptide 460 PG/ML Total Protein 4.7 GM/DL Albumin 1.8 GM/DL Test 08/26/16 04:52 Sodium Level 137 MEQ/L Potassium Level 3.4 MEQ/L Chloride Level 97 MEQ/L Carbon Dioxide Level 22.9 MEQ/L Anion Gap 17 MEQ/L Blood Urea Nitrogen 83 MG/DL Creatinine 2.73 MG/DL Estimat Glomerular Filtration 23 ML/MIN Rate Random Glucose 166 MG/DL Lactic Acid Level 1.0 mmol/L Calcium Level 7.8 MG/DL Magnesium Level 1.8 MG/DL Total Bilirubin 0.4 MG/DL Aspartate Amino Transf 66 U/L (AST/SGOT) Alanine Aminotransferase 59 U/L (ALT/SGPT) Alkaline Phosphatase 109 U/L Total Protein 5.0 GM/DL Albumin 1.7 GM/DL Microbiology Date/Time Procedure Status Source Growth 08/25/16 04:20 Aerobic Blood Culture Received Blood Peripheral Pending 08/25/16 04:20 Anaerobic Blood Culture Received Blood Peripheral Pending 08/25/16 04:27 Aerobic Blood Culture Received Blood Peripheral Pending 08/25/16 04:27 Anaerobic Blood Culture Received Blood Peripheral Pending 08/25/16 18:00 Urine Culture Received Urine Catheterized Urine Pending Imaging Chest X-Ray 08/26/16 0754 Signed Impressions: Service Date/Time: Friday, August 26, 2016 08:14 - CONCLUSION: Left IJ central line distal tip in the SVC. No pneumothorax is visualized. There is a stable appearance the lungs with bilateral airspace consolidation. Lex Malik MD Renal Ultrasound 08/25/16 0000 Signed Impressions: Service Date/Time: Wednesday, August 24, 2016 21:53 - CONCLUSION: 1. There is no hydronephrosis. Both kidneys demonstrate mild increased echotexture of the parenchyma suggesting medical renal disease. 2. Trace perihepatic free fluid and bilateral pleural effusions. Lex Malik MD Chest CT 08/25/16 0000 Signed Impressions: Service Date/Time: Thursday, August 25, 2016 21:20 - CONCLUSION: 1. Bilateral pneumonia and aspiration would be in the differential. There is dependent consolidation/atelectasis and small effusions of the bases as well. 2. Upper limits of normal to mildly enlarged mediastinal lymph nodes, most likely reactive. 3. Coronary artery calcification. 4. Right rib fractures, including acute fractures laterally of the third, fourth and fifth. There are old, healed fractures anteriorly of the right second and third ribs.. Lex Lopez MD Abdomen/Pelvis CT 08/25/16 0000 Signed Impressions: Service Date/Time: Thursday, August 25, 2016 20:20 - CONCLUSION: 1. Ventral hernia containing small bowel and with associated small bowel obstruction. The defect is broad; I believe the obstruction is probably related to scarring and/or adhesions within the hernia sac. I don't see a mass. 2. Distended stomach despite NG tube present. 3. Severe aortoiliac atherosclerosis. No aneurysm. Lex Lopez MD Abdomen X-Ray 08/24/16 0000 Signed Impressions: Service Date/Time: Wednesday, August 24, 2016 17:19 - CONCLUSION: 1. Small bowel dilatation which reflect ileus or obstruction. Followup examination is recommended if clinically indicated. Gareth Escalante MD Physical Exam GENERAL: Sedated and intubated, not in distress SKIN: Warm and dry. No generalized rash or ecchymosis. HEAD: Atraumatic. Normocephalic. No temporal or scalp tenderness. EYES: Pale conjunctivae, no petechia or hemorrhage. Pupils equal round and reactive. No scleral icterus. No injection or drainage. ENT: Nose without bleeding, purulent drainage. Has endotracheal tube and OG tube in the mouth. NECK: Trachea midline. No JVD or lymphadenopathy. Supple. LIJ TLC looks ok CARDIOVASCULAR: Regular rate and rhythm without murmurs, gallops, or rubs. RESPIRATORY: Decreased breath sounds throughout both lung garcia. GASTROINTESTINAL: Abdomen soft, with protuberance in middle, this is an incisional hernia. No reaction to deep palpation. Has midline scar. Bowel sounds are hypoactive, no guarding. MUSCULOSKELETAL: Extremities without clubbing, cyanosis, or edema. No joint effusion, or edema noted. NEUROLOGICAL: Sedated PSYCH: Unable to assess LINE: LIJ TLC no evidence of infection. Assessment & Plan Remarks IMPRESSION Status post cardiorespiratory arrest, likely aspirated Findings SBO within th hernia on CT A/P Likely aspiration pneumonia Respiratory failure GI bleed Leukocytosis, worsening, most likely multifactorial, due to acute GI bleed as well as aspiration and arrest COPD, oxygen dependent Previous GI bleed with workup showing gastritis, Ashley esophagitis, and polyps Large incisional ventral hernia Bladder outlet obstruction, currently has a Hammond Renal insufficiency RECOMMENDATION Follow cultures Sputum Gram stain and culture Continue Vanco and Zosyn Will adjust antibiotics once cultures are available Follow CBC Monitor progress Add empiric antifungal D/W RN. ADDENDUM: RN called me about (+) BC with yeast Will add Micafungin to cover more resistant Ashley especially since patient critically ill Will continue Diflucan Once yeast has been ID ,will deescalate antifungal agent Intraabdominal process a concern now especially with the yeast in BC Nuha Fernandez MD Aug 26, 2016 10:01
[2016-08-26 10:04] LABS: APTT (PATIENT) 51.8 SEC (24.3-30.1); INTERNATIONAL NORMALIZED RATIO 1.2 RATIO; PROTHROMBIN TIME - PATIENT 13.7 SEC (9.8-11.6)
[2016-08-26 10:10] LABS: BICARBONATE 25.7 MEQ/L (21.0-32.0); POTASSIUM 3.3 MEQ/L (3.5-5.1)
[2016-08-26] MEDS ORDERED: FLUCONAZOLE 400 MG PREMIX BAG 200 ML IV SCH (10:15)
[2016-08-26 10:22] LABS: CALCIUM-PROTEIN CORRECTED 8.7 MG/DL (8.5-10.1)
--- NOTE | 2016-08-26 11:39 | HHI.GIFU ---
Subjective Remarks Resting in bed sedated on the vent. OGT with thick brown gastric secretions. Abdomen not as distended as yesterday. Objective Vitals I&O Vital Signs Date Time Temp Pulse Resp B/P Pulse Ox O2 Delivery O2 Flow Rate FiO2 08/26/16 09:54 99 50 08/26/16 07:00 99 Mechanical Ventilator 60 08/26/16 06:00 78 08/26/16 04:26 97 60 08/26/16 04:00 98.1 91 30 107/60 97 08/26/16 04:00 60 08/26/16 04:00 91 08/26/16 02:20 97 60 08/26/16 02:00 76 08/26/16 00:00 60 08/26/16 00:00 97.9 94 30 114/62 100 08/26/16 00:00 94 08/25/16 22:26 97 60 08/25/16 22:00 98 08/25/16 21:30 100 08/25/16 21:00 100 100 08/25/16 20:00 97 Mechanical Ventilator 60 08/25/16 20:00 60 08/25/16 20:00 102 08/25/16 20:00 99.0 102 30 102/62 97 08/25/16 16:00 65 08/25/16 16:00 97.5 98 31 100/52 95 08/25/16 12:22 93 65 08/25/16 12:00 65 08/25/16 12:00 99.0 107 34 108/65 94 I/O 08/25/16 08/25/16 08/25/16 08/26/16 08/26/16 08/26/16 07:00 15:00 23:00 07:00 15:00 23:00 Intake Total 2361 ml 1631 ml 1894 ml 1404 ml Output Total 225 ml 200 ml 600 ml 700 ml Balance 2136 ml 1431 ml 1294 ml 704 ml IV Total 2361 ml 1631 ml 1414 ml 1344 ml Tube Irrigant 480 ml 60 ml Output Urine Total 175 ml 150 ml 300 ml 350 ml Gastric Drainage Total 50 ml 50 ml 300 ml 350 ml # Bowel Movements 0 0 0 Laboratory Laboratory Tests Test 08/25/16 08/25/16 08/26/16 08/26/16 12:21 18:00 04:52 04:55 Hemoglobin 9.6 8.7 Hematocrit 28.0 25.5 Urine Color YELLOW Urine Turbidity HAZY Urine pH 5.0 Urine Specific [place] 1.016 Urine Protein 30 Urine Glucose (UA) NEG Urine Ketones NEG Urine Occult Blood MOD Urine Nitrite NEG Urine Bilirubin NEG Urine Urobilinogen LESS THAN 2.0 Urine Leukocyte Esterase SMALL Urine RBC 11 Urine WBC 11 Urine Amorphous Sediment OCC Urine Bacteria OCC Urine Mucus FEW Microscopic Urinalysis Comment CATH-CULTURE IND White Blood Count 58.2 Red Blood Count 2.91 Mean Corpuscular Volume 87.8 Mean Corpuscular Hemoglobin 29.9 Mean Corpuscular Hemoglobin 34.0 Concent Red Cell Distribution Width 16.9 Platelet Count 196 Mean Platelet Volume 8.4 Neutrophils (%) (Auto) Lymphocytes (%) (Auto) Monocytes (%) (Auto) Eosinophils (%) (Auto) Basophils (%) (Auto) Neutrophils # (Auto) Lymphocytes # (Auto) Monocytes # (Auto) Eosinophils # (Auto) Basophils # (Auto) CBC Comment AUTO DIFF Differential Total Cells 100 Counted Neutrophils % (Manual) 41 Band Neutrophils % 47 Lymphocytes % 1 Monocytes % 9 Neutrophils # (Manual) 52.4 Metamyelocytes 1 Myelocytes 1 Differential Comment FINAL DIFF MANUAL Toxic Granulation 1+ Dohle Bodies PRESENT Platelet Estimate NORMAL Platelet Morphology Comment NORMAL Sodium Level 137 Potassium Level 3.4 Chloride Level 97 Carbon Dioxide Level 22.9 Anion Gap 17 Blood Urea Nitrogen 83 Creatinine 2.73 Estimat Glomerular Filtration 23 Rate Random Glucose 166 Lactic Acid Level 1.0 Calcium Level 7.8 Magnesium Level 1.8 Total Bilirubin 0.4 Aspartate Amino Transf 66 (AST/SGOT) Alanine Aminotransferase 59 (ALT/SGPT) Alkaline Phosphatase 109 Total Protein 5.0 Albumin 1.7 Random Vancomycin Level 22.0 Urine Eosinophils NONE SEEN Test 08/26/16 08/26/16 09:40 10:25 Prothrombin Time 13.7 Prothromb Time International 1.2 Ratio Activated Partial 51.8 Thromboplast Time Fibrinogen 233 Sodium Level 138 Potassium Level 3.3 Chloride Level 98 Carbon Dioxide Level 25.7 Anion Gap 14 Blood Urea Nitrogen 82 Creatinine 2.63 Estimat Glomerular Filtration 24 Rate Random Glucose 162 Calcium Level 7.3 Protein Corrected Calcium 8.7 Total Creatine Kinase 84 Troponin I 0.13 Total Protein 4.7 Thyroid Stimulating Hormone 0.333 3rd Gen Urine Random Creatinine 35.5 Urine Random Sodium 16 Date/Time Procedure Status Source Growth 08/25/16 18:00 Urine Culture Received Urine Catheterized Urine Pending 08/25/16 04:27 Aerobic Blood Culture - Preliminary Resulted Blood Peripheral NO GROWTH IN 1 DAY 08/25/16 04:27 Anaerobic Blood Culture - Preliminary Resulted Yeast-Id To Follow Imaging Last Impressions Chest X-Ray 08/26/16 0754 Signed Impressions: Service Date/Time: Friday, August 26, 2016 08:14 - CONCLUSION: Left IJ central line distal tip in the SVC. No pneumothorax is visualized. There is a stable appearance the lungs with bilateral airspace consolidation. Lex Malik MD Renal Ultrasound 08/25/16 0000 Signed Impressions: Service Date/Time: Wednesday, August 24, 2016 21:53 - CONCLUSION: 1. There is no hydronephrosis. Both kidneys demonstrate mild increased echotexture of the parenchyma suggesting medical renal disease. 2. Trace perihepatic free fluid and bilateral pleural effusions. Lex Malik MD Chest CT 08/25/16 0000 Signed Impressions: Service Date/Time: Thursday, August 25, 2016 21:20 - CONCLUSION: 1. Bilateral pneumonia and aspiration would be in the differential. There is dependent consolidation/atelectasis and small effusions of the bases as well. 2. Upper limits of normal to mildly enlarged mediastinal lymph nodes, most likely reactive. 3. Coronary artery calcification. 4. Right rib fractures, including acute fractures laterally of the third, fourth and fifth. There are old, healed fractures anteriorly of the right second and third ribs.. Lex Lopez MD Abdomen/Pelvis CT 08/25/16 0000 Signed Impressions: Service Date/Time: Thursday, August 25, 2016 20:20 - CONCLUSION: 1. Ventral hernia containing small bowel and with associated small bowel obstruction. The defect is broad; I believe the obstruction is probably related to scarring and/or adhesions within the hernia sac. I don't see a mass. 2. Distended stomach despite NG tube present. 3. Severe aortoiliac atherosclerosis. No aneurysm. Lex Lopez MD Abdomen X-Ray 08/24/16 0000 Signed Impressions: Service Date/Time: Wednesday, August 24, 2016 17:19 - CONCLUSION: 1. Small bowel dilatation which reflect ileus or obstruction. Followup examination is recommended if clinically indicated. Gareth Escalante MD Physical Exam HEENT: Normocephalic; atraumatic; no jaundice CHEST: Resp even. diminished. OETT to vent CARDIAC: Tachycardia, hypotensive on vasopressors ABDOMEN: Soft, no hepatosplenomegaly; bowel sounds are present in all four quadrants. Large ventral hernia reducible. OGT with thick brown gastric secretions SKIN: Skin dusky, cool to touch, dry HURRICANE TRACKER: Unresponsive Assessment and Plan Plan ASSESSMENT: - Massive GIB with older appearing dark maroon gastric secretions. Pt is s/p CODE BLUE, vomiting large amount of dark maroon secretions on 08/24 and HH dropped to 5.4/16.7. According to the chart , he has a hx of perforated gastric ulcer. Recent EGD (08/10/16)---> mild gastritis, nodules in the EG junction, moderate esophagitis, normal endoscopy otherwise, retroflexed views revealed no abnormalities. Pathology revealed mild active chronic gastritis, nodule GE junction with gastric mucosa with mild chronic inflammation of the lamina propria and foveolar hyperplasia, acutely inflamed squamous mucosa and detached fragments of acute inflammatory exudate multiple budding yeast and pseudohyphae are present in exudate, acutely ulcerated mucosa of distal esophagus with numerous budding yeast and pseudohyphae invading tissue, consistent with mary kay esophagitis. Colonoscopy (08/11/16) with polypectomy and ablation of polyp in ascending colon with hot snare. Ascending colon with markedly cauterized colonic mucosa with features suggestive of hyperplastic polyp. S/P EGD (08/26/16)-----> Proximal esophageal lesion possibly vascular in nature , Incomplete evaluation of the stomach, Deformed pylorus. S/P CT chest (08/25/16)-----> 1. Bilateral pneumonia and aspiration would be in the differential. There is dependent consolidation/atelectasis and small effusions of the bases as well. 2. Upper limits of normal to mildly enlarged mediastinal lymph nodes, most likely reactive. 3. Coronary artery calcification. 4. Right rib fractures, including acute fractures laterally of the third, fourth and fifth. There are old, healed fractures anteriorly of the right second and third ribs. At this time, he does not appear to be having active bleeding. HH with mild drop from 9.6 yesterday at 12 noon to 8.7/25.5. Protonix Gtt. Diflucan. Micafungin. - Anemia secondary acute blood loss. S/P 4 units PRBC, 2 units FFP. 8.7/25.5. - Ileus vs. Bowel obstruction. Abdomen X-Ray (08/24/16)---> 1. Small bowel dilatation which reflect ileus or obstruction. Followup examination is recommended if clinically indicated. Abdomen/Pelvis CT (08/25/16)----> 1. Ventral hernia containing small bowel and with associated small bowel obstruction. The defect is broad; I believe the obstruction is probably related to scarring and/or adhesions within the hernia sac. I don't see a mass. 2. Distended stomach despite NG tube present. 3. Severe aortoiliac atherosclerosis. No aneurysm. GS following, known to Dr. Roberts. D/W Dr. Roberts, does not feel this is complete obstruction as their is contrast in colon. OGT 700cc today. Pt with worsening leukocytosis, WBC up to 58.2. Defer to GS - Recent mary kay esophagitis. Diflucan, Protonix gtt. - S/P CODE BLUE (08/24). Pt with ROSC after 15 MN. Now intubated in unit on vasopressors. - Acute respiratory failure with COPD and suspected HCAP. Vent, Nebs, Abx per [facility] - Large Ventral hernia, reducible. per Dr. Roberts - Sepsis, Severe leukocytosis, worsening. WBC 58.2. Bx growing yeast. ID following. Abx Vancomycin, Diflucan, Micafungin, PLAN: - NPO - OGT to LIWS - Cont. Protonix Gtt - Cont. Diflucan - Monitor HH - Transfuse as necessary - Supportive care - Monitor labs - If any active bleeding, then one should contemplate a Gilles tube placement and possible angiography. - Patient will most likely require repeat EGD with possible therapy to this lesion in the proximal esophagus - Further recommendations to follow based on results of above - PT seen and examined by Dr. Radford and myself and this note is written on his behalf Ronna Aldrich Aug 26, 2016 11:39
--- NOTE | 2016-08-26 11:43 | MB ---
cc: TANESHA DIAZ DATE OF CONSULTATION 08/26/2016 REASON FOR CONSULTATION Possible bowel obstruction HISTORY OF PRESENT ILLNESS Mr. Thomason is a very pleasant 71-year-old gentleman well-known to me for many years who has recently had some significant medical issues. He was admitted approximately three weeks ago for a bladder outlet obstruction and pneumonia. He was subsequently discharged. He then returned to my office about two weeks ago looking quite ill. I advised him he needed to return to the emergency room because he was short of breath, not eating or drinking well and overall ill-appearing. Apparently he returned to the emergency room two days later where he was admitted on 08/20/[address] Scales. At that time, he was found to have persistent pneumonia, as well as a UTI. He was felt to be in mild sepsis. The patient was admitted to the floor for observation. Apparently on 08/23/16, the patient suffered a cardiac arrest and then vomited and apparently aspirated. He is now in the medical intensive care unit. At some point, they got a CT scan of his abdomen and pelvis which showed his large chronic hernia. Surgical history is remarkable for undergoing exploratory laparotomy for a perforated gastric ulcer several years ago at [facility]. The patient then suffered a dehiscence with evisceration of his bowel at home. He returned there and they performed a primary repair. He then subsequently had a ventral hernia repair at [facility] which became infected. The mesh was then removed. The patient then was seen by myself in consultation in the office. I recommended an elective repair. We performed an elective repair and he did well initially. Several months after the repair, he presented to the emergency room with a red abdominal wound and was found to have an infected seroma. He was returned back to the operating room where the mesh was removed and a biologic mesh was placed. After that, the patient did well. However, he has gone on to progress to a large ventral and abdominal wall hernia likely secondary to his multiple previous abdominal wall infections. I have been following the patient in the office for quite some time for this. As stated, he was doing well until about a month ago when he developed a bladder outlet obstruction and pneumonia. During his hospitalization here, they did get a CT scan of the abdomen and pelvis which showed some dilated loops of small bowel, as well as some air and gas in the colon and a decompressed distal colon. This was interpreted as bowel obstruction. Looking back on the progress notes, there is no documented nausea or vomiting by any physicians rounding on the patient. There is no complaints of abdominal pain by the physician rounding on him. PAST MEDICAL HISTORY Includes: 1. COPD 2. Hypertension 3. Prostate cancer 4. Recent bladder outlet obstruction 5. Recent pneumonia PAST SURGICAL HISTORY Please see HPI. MEDICATIONS Medications are extensive, please see the chart. ALLERGIES He has no he has no known drug allergies. FAMILY HISTORY His family history is unremarkable. SOCIAL HISTORY He smokes cigarettes, but does not drink any alcohol according to his daughter. PHYSICAL EXAM Here in the ICU temperature is 98, pulse is 90, blood pressure 120/70, respiratory rate, he is intubated. GENERAL: This is a middle-aged gentleman who is sedated in the ICU on the ventilator. HEENT: Sclerae are white. Pupils are reactive. He has a nasogastric tube in place and an endotracheal tube in place. NECK: Supple. No masses. LUNGS: Clear to auscultation bilaterally. HEART: S1-S2 no murmur. ABDOMEN: Overall is very soft, easily compressible. He does have a few bowel sounds. He has a large hernia that is completely reducible, nontender on my exam. NG tube was auscultated in the stomach and confirmed with suction. EXTREMITIES: No gross deformity x4. NEUROLOGIC: Alert and oriented x3. LABORATORY DATA Blood cell count is 58, hemoglobin is 8.7, platelet count is 196. Electrolytes remarkable for a K of 3.30, creatinine 2.63, glucose of 162. IMAGING CT scan of the abdomen and pelvis shows a dilated stomach and small bowel with no obvious transition point. He does have air and gas throughout the right colon and partial end of the transverse colon. This pattern to me is more consistent with an ileus after a cardiac arrest and it is a mechanical bowel obstruction. IMPRESSION 1. Probable post code ileus. 2. Chronic ventral incisional hernia. 3. Upper GI bleed with history of perforated gastric ulcer. PLAN At this point, the patient remains critically ill. He needs aggressive supportive care. By physical exam and history, I do not believe he has a mechanical bowel obstruction as no physicians documented abdominal pain, nausea or vomiting prior to his cardiac arrest. At the time of cardiac arrest, apparently he vomited a large amount of blood. NG tube was checked here in the ICU today. He has what appears to be old brown blood within the NG tube and this was irrigated out until clear. There was concern about a possible TE fistula, but there is a concern raised about a TE fistula or an esophageal colonic fistula which I think is highly unlikely. I believe the NG aspirate is just likely old blood and gastric contents. Overall his abdomen is very soft to my exam. The hernia is totally reducible. I see no indications for surgical intervention at this time. I had a long discussion with his daughter on the phone this morning who is well-known to me. I have recommended continued aggressive care and see what the patient's neurologic status turns out to be after the cardiac arrest. I would continue supportive care. I would not attempt enteric feedings as his small bowel is markedly dilated and he will likely have an ileus after the code and being critically ill. We will follow up on him tomorrow. Thank you for notifying me of his admission. MD MARY Engel/JEREMIAS /10:36 AM /11:26 AM
[2016-08-26] MEDS: VASOPRESSIN INJ 40 UNITS in DEXTROSE 5% IN WATER 100ML INJ 98 ML IV SCH ×2 (11:50)
[2016-08-26] MEDS: MICAFUNGIN INJ 100 MG in SODIUM CHLORIDE 0.9% INJ 100 ML IV SCH (11:50)
[2016-08-26] MEDS: MIDAZOLAM 100 MG/ML INJ 100 ML IV SCH (11:51)
[2016-08-26 16:25] LABS: HEMATOCRIT 23.7 % (39.0-51.0); MEAN CORPUSCULAR HGB CONC 33.7 % (32.0-36.0); PLATELET COUNT 155 TH/MM3 (150-450); RED BLOOD COUNT 2.66 MIL/MM3 (4.50-5.90); RED CELL DISTRIBUTION WIDTH 17.3 % (11.6-17.2)
[2016-08-26 16:33] LABS: REVIEW FLAG FINAL; WHITE BLOOD COUNT 50.5 TH/MM3 (4.0-11.0)
[2016-08-26 16:48] LABS: BICARBONATE 26.2 MEQ/L (21.0-32.0); POTASSIUM 3.1 MEQ/L (3.5-5.1)
[2016-08-26] MEDS ORDERED: FLUCONAZOLE/NACL 200 MG/100 ML IV SCH (17:00)
[2016-08-26] MEDS ORDERED: POTASSIUM CHLORIDE INJ 30 MEQ in SODIUM CHLORIDE 0.9% INJ 100 ML IV-CENTRAL ONE (17:30)
[2016-08-26] MEDS ORDERED: VANCOMYCIN 1,000 MG/NS 250 ML IV ONE ×2 (20:00)
[2016-08-26] MEDS: SODIUM CHLORIDE 0.9% FLUSH 5 ML FLUSH IVF PRN (20:23)
[2016-08-26] MEDS: RESP: BUDESONIDE 0.5 MG/2 ML NEB NEB SCH (21:42)
[2016-08-26 23:30] LABS: HEMATOCRIT 28.3 % (39.0-51.0)
[2016-08-26 23:39] LABS: REVIEW FLAG FINAL
[2016-08-26 23:42] LABS: POTASSIUM 3.2 MEQ/L (3.5-5.1)
[2016-08-27] VITALS (19 sets, daily range): BP systolic 110–155; BP diastolic 62–86; PULSE 75–88; RESP 20–27; TEMP 97.3–97.7; O2SAT 94–100
[2016-08-27] MEDS: SODIUM CHLORIDE 0.9% FLUSH 5 ML FLUSH IVF PRN ×2 (00:28→05:42)
[2016-08-27] MEDS: HYDROCORTISONE SOD SUCCINATE 100 MG VIAL IV PUSH SCH ×4 (00:28→22:41)
[2016-08-27] MEDS: SODIUM CHLOR 0.9% 1000 ML INJ 1,000 ML IV SCH ×4 (00:30→23:43)
[2016-08-27] MEDS: PIPERACIL-TAZO 3.375 GM PREMIX 50 ML IV SCH ×4 (02:54→20:21)
[2016-08-27] MEDS: PANTOPRAZOLE INJ 80 MG in SODIUM CHLORIDE 0.9% INJ 100 ML IV SCH ×3 (02:54→23:43)
--- NOTE | 2016-08-27 03:11 | RADRPT ---
EXAM DATE/TIME: 08/27/2016 02:27 [place] COMPARISON: CHEST SINGLE AP, August 26, 2016, 8:14. INDICATIONS : Respiratory failure. MEDICAL HISTORY : None. SURGICAL HISTORY : None. ENCOUNTER: Subsequent ACUITY: 3 days PAIN SCORE: Non-responsive. LOCATION: Bilateral chest FINDINGS: A single view of the chest demonstrates bilateral patchy airspace disease with definite improved aera tion in the bases bilaterally. Improving pleural effusions as well. Life support tubes are also stabl e. Old fracture deformity of the proximal left humerus. CONCLUSION: 1. Patchy bilateral airspace disease with improving aeration/decreasing effusions in the bases bilate rally. 2. Stable position of life support tubes. Con Valdes MD on August 27, 2016 at 3:08 Board Certified Radiologist. This report was verified electronically.
[2016-08-27 06:28] LABS: AUTOMATED NEUTROPHIL # 41.2 TH/MM3 (1.8-7.7); BASOPHIL # 0.1 TH/MM3 (0-0.2); BASOPHIL % 0.2 % (0.0-2.0); HEMATOCRIT 28.4 % (39.0-51.0); LYMPH % 1.6 % (9.0-44.0); LYMPHOCYTE # 0.7 TH/MM3 (1.0-4.8); MEAN CELL VOLUME 87.8 FL (80.0-100.0); MEAN CORPUSCULAR HEMOGLOBIN 29.4 PG (27.0-34.0); MEAN CORPUSCULAR HGB CONC 33.5 % (32.0-36.0); NEUT % 96.2 % (16.0-70.0); PLATELET COUNT 129 TH/MM3 (150-450); RED BLOOD COUNT 3.24 MIL/MM3 (4.50-5.90); RED CELL DISTRIBUTION WIDTH 16.6 % (11.6-17.2); WHITE BLOOD COUNT 42.9 TH/MM3 (4.0-11.0)
[2016-08-27 06:33] LABS: INTERNATIONAL NORMALIZED RATIO 1.2 RATIO; PROTHROMBIN TIME - PATIENT 13.1 SEC (9.8-11.6)
[2016-08-27 06:37] LABS: HEMO FLAGS AUTO DIFF
--- NOTE | 2016-08-27 06:40 | HHI.CCPN ---
Subjective Remarks/Hospital Course 08/24: 71 Year-old male with a medical history significant for COPD on home oxygen who was recently admitted with suspected sepsis/H And was initiated on IV antibiotics and steroids. He had recently been evaluated by GI and underwent EGD on 08/10/2016 and was found to have moderate esophagitis, mild gastritis with pathology subsequently showing Ashley esophagitis as well as colonoscopy on 08/11/2016 with polypectomy and ablation of polyp in ascending colon with hot snare. Patient has been dealing with constipation since his admission. Today when he was trying to have a bowel movement he suddenly became less responsive and then had a large emesis which resulted in aspiration and hemodynamic collapse. Patient initially had large volume emesis with dark maroon blood. CODE BLUE cardiac arrest code was activated. On my arrival patient was in bed CPR had been initiated. Significant gastric contents was still being suctioned out of his oral cavity. ACLS protocol was continued. Patient was intubated following vigorous suctioning of gastric contents from oral cavity as well as with placement of NG tube which is hooked up to suction and about 1.5 L of gastric contents being suctioned out which appeared to be dark maroon in color. Patient initially had a pulse when CODE BLUE was called and subsequently went in PEA arrest followed by asystole during ACLS and then V. fib for which he was defibrillated with 200 J 1, CPR/ACLS protocol was continued and patient eventually had return of spontaneous circulation after about 15 minutes of CPR/ACLS. Patient was transferred to [facility] and placed on mechanical ventilation. I emergently placed left femoral central line for central vascular access and he was started on Levophed for pressor support. 2 units of O- 1 crossmatch blood were ordered and transfused stat. He also received 1 L of normal saline bolus following return of spontaneous circulation. Stat labs were ordered. His hemoglobin on ABG done post resuscitation was 5.6. I did order Protonix 80 mg IV stat followed by 8 mg per hour IV infusion. Patient remained encephalopathic though was minimally responsive following transfer to the ICU. GI consult was requested and I spoke with Dr. Zamarripa at bedside on his arrival. History was obtained by reviewing records, discussion with family/ GI as well as nursing staff. According to patient's daughter he has not been doing well for the last few months in terms of his breathing and has been using his home oxygen more often. He gets extremely short of breath even with the least exertion. 08/25: Remains encephalopathic/ sedated, orally intubated on [facility] ventilation. Transiently off levophed last night however back to 11 mcg/min currently. Hgb up to 9.4 following 4 units PRBCs transfused last night. 08/26: Tmax 99. Some unresponsive on the ventilator. CT abdomen/pelvis less than revealed small bowel obstruction at site of ventral hernia. No further bleeding noted. Gastric output approximately 700 cc. No bowel movement. Subjective 08/27: Tmax 99.7. Currently afebrile. Positive BM overnight approximately 1 L according to RN. No blood noted. 100 cc from gastric tube overnight. Hemoglobin corrected a properly. Likely dilutional. Noted fungemia currently issue. Opens eyes to voice. Objective Vital Signs Date Time Temp Pulse Resp B/P Pulse Ox O2 Delivery O2 Flow Rate FiO2 08/27/16 04:00 75 08/27/16 04:00 97.5 27 118/62 100 Automatic Cuff 08/27/16 04:00 60 08/26/16 20:00 Mechanical Ventilator 08/24/16 08:45 4.00 Intake and Output 08/26/16 08/26/16 08/27/16 08:00 16:00 00:00 Intake Total 1404 ml Output Total 700 ml Balance 704 ml Result Diagram: 08/26/16 2300 08/26/16 2300 Other Results Microbiology Date/Time Procedure Status Source Growth 08/26/16 14:40 Gram Stain Received Sputum Endotracheal Pending 08/26/16 14:40 Sputum Culture Received Sputum Endotracheal Pending 08/25/16 18:00 Urine Culture - Preliminary Resulted Urine Catheterized Urine RESULTS PENDING 08/25/16 04:27 Aerobic Blood Culture - Preliminary Resulted Blood Peripheral NO GROWTH IN 1 DAY 08/25/16 04:27 Anaerobic Blood Culture - Preliminary Resulted Yeast-Id To Follow Imaging Last Impressions Chest X-Ray 08/27/16 0600 Signed Impressions: Service Date/Time: August 02:27 - CONCLUSION: 1. Patchy bilateral airspace disease with improving aeration/decreasing effusions in the bases bilaterally. 2. Stable position of life support tubes. Con Valdes MD Renal Ultrasound 08/25/16 0000 Signed Impressions: Service Date/Time: Wednesday, August 24, 2016 21:53 - CONCLUSION: 1. There is no hydronephrosis. Both kidneys demonstrate mild increased echotexture of the parenchyma suggesting medical renal disease. 2. Trace perihepatic free fluid and bilateral pleural effusions. Lex Malik MD Chest CT 08/25/16 0000 Signed Impressions: Service Date/Time: Thursday, August 25, 2016 21:20 - CONCLUSION: 1. Bilateral pneumonia and aspiration would be in the differential. There is dependent consolidation/atelectasis and small effusions of the bases as well. 2. Upper limits of normal to mildly enlarged mediastinal lymph nodes, most likely reactive. 3. Coronary artery calcification. 4. Right rib fractures, including acute fractures laterally of the third, fourth and fifth. There are old, healed fractures anteriorly of the right second and third ribs.. Lex Lopez MD Abdomen/Pelvis CT 08/25/16 0000 Signed Impressions: Service Date/Time: Thursday, August 25, 2016 20:20 - CONCLUSION: 1. Ventral hernia containing small bowel and with associated small bowel obstruction. The defect is broad; I believe the obstruction is probably related to scarring and/or adhesions within the hernia sac. I don't see a mass. 2. Distended stomach despite NG tube present. 3. Severe aortoiliac atherosclerosis. No aneurysm. Lex Lopez MD Abdomen X-Ray 08/24/16 0000 Signed Impressions: Service Date/Time: Wednesday, August 24, 2016 17:19 - CONCLUSION: 1. Small bowel dilatation which reflect ileus or obstruction. Followup examination is recommended if clinically indicated. Gareth Escalante MD Objective Remarks GENERAL: 71-year-old male, critically ill currently resting in bed SKIN: Warm and dry. No rash HEAD: Atraumatic. Normocephalic. EYES: Pupils equal and round about 2-3 mm bilaterally and reactive. No scleral icterus. No injection or drainage. ENT: No nasal bleeding or discharge. Mucous membranes pink and moist. NECK: Trachea midline. No JVD. CARDIOVASCULAR: Regular rate and rhythm. S1, S2. No S4. Without murmur RESPIRATORY: Diminished breath sounds throughout, specifically at the bases bilaterally. Positive expiratory wheeze. Breath sounds equal bilaterally. GASTROINTESTINAL: Abdomen significant ventral hernia. Which is easily reducible hypoactive bowel sounds are appreciated. Dark brown output from NG tube MUSCULOSKELETAL: Extremities with 1+ peripheral edema. No obvious deformities. NEUROLOGICAL: Arousable on the ventilator to physical and stimulation. Currently not following commands. Opens eyes to voice. Withdraws to pain in all 4 extremities more left upper > right upper limb > bilateral lower extremities. Urinary Catheter: Yes Assessment to: Continue Hammond insert reason: Prolonged Immobilization Vascular Central Line Catheter: Yes Assessment to: Continue Date of Insertion: Aug 26, 2016 Line: Central Venous Catheter Side: Left Location: Internal, Jugular A/P Assessment and Plan Neuro/Psych: Status post CPR 15 minutes - possible anoxic encephalopathy Depression NOS Follow neuro status. Versed for sedation current 4 mg an hour for sedation while intubated We'll switch to Precedex and attempt to wean to better assess neurological status Goal of RASS -2. Concern for anoxic encephalopathy following cardiac arrest. EEG 08/25 revealed mild to moderate encephalopathy. No epileptiform activity. If stable will check MRI brain further evaluate Holding trazodone 50 mg at night for depression Cardiovascular: Cardiac arrest status post CPR Elevated troponin History dyslipidemia History of hypertension PVD Systemic shock likely secondary to sepsis/aspiration/small bowel obstruction Currently on only vasopressin 0.03 units an hour to maintain MAP greater than 65 Currently normal saline at 125 cc an hour. Holding home medication Cardizem 120 mg by mouth daily in light of hypotension Not on any lipid-lowering agents at home. Cardiac arrest status post CPR. s/p aggressive fluid resuscitation. 5 units PRBCs transfused. To date minimal troponin elevation following cardiac arrest noted. Echo 2D revealed EF 55%. Moderate LVH. Mitral valve calcified. Mild TR. Pulmonary: Acute respiratory failure secondary to aspiration pneumonia End-stage COPD. Oxygen dependent FEV1 28%, FVC 1.6. ACV 20/500/10/40 Duo nebs every 6 hours and as needed, At home on Symbicort 160/4.5 twice a day and duo nebs 4 times a day Switched to Pulmicort twice a day prednisone switched to IV hydrocortisone 50 mg IV every8 hours. Titrate FiO2 down provided O2 sat greater than 90%. CT chest revealed small pleural effusions bilaterally with likely aspiration Spontaneous breathing trials when clinically indicated GI/liver: History of ventral hernia Hypokalemia Nothing by mouth, NG suction. Protonix 80 mg IV bolus followed by 8 mg/h IV infusion. GI consulted and discussed this with Dr. Radford on 08/24. Being resuscitated currently. EGD revealed 25 cm proximal esophagus with possible bleeding. Rule out aorto esophageal fistula. Dr. roberts/general surgery evaluated. Does not believe abdomen surgical the present time. GI. Small bowel obstruction Upper GI bleed plus esophageal rule out aorto esophageal fistula History of Ashley esophagitis History of colonic polyps History of ventral hernia status post repair last by Dr. Roberts CT abdomen/pelvis the sesamoid revealed small bowel obstruction level but hernia. Severe aortoiliac disease. Dr. roberts/general surgery evaluated. Very poor surgical candidate this time. EGD 08/25 revealed esophageal nipple. Clots noted within the gastric contents without active bleeding. Recommended CTA rule out aorto esophageal fistula however cannot perform due to elevated creatinine. Hemoglobin appears stable. Gilles if continues upper GI bleed Continue NG tube to LIWS. 100 cc past 8 hours Positive BM overnight Renal/: Acute kidney injury History of bladder outlet obstruction IV hydration, strict intake output, monitor and replete electro lites, follow BUN creatinine. Currently holding Flomax 0.4 mg daily No hydronephrosis on CT abdomen/pelvis Check urine electrolytes/eosinophils ID: UTI Sepsis Fungemia Repeat blood and sputum cultures, UA and urine cultures have indicated. Appreciate ID consult with worsening leukocytosis and septic shock Empiric antibiotic coverage with IV vancomycin and Zosyn to be continued. IV Diflucan started by GI for Ashley esophagitis. Started on IV micafungin 08/26 secondary to yeast in blood. Pertinent cultures 08/26 - sputum - pending 08/25 - blood cultures 2 - yeast 08/25 - urine - pending 08/22 - blood cultures 2 - no growth 08/21 - urine - no growth 08/20 - blood cultures 2 - 1 out of 4 staph epi Endocrine: Chronic prednisone use secondary to COPD SSI for glycemic control as needed. Switch to hydrocortisone 50 mg IV every 8 hourly for stress dose as patient has been on by mouth prednisone. Heme: Acute blood loss anemia History of prostate cancer Leukocytosis Status post 4 units PRBCs ands 2 units FFP on 08/24. Given one unit PRBCs 08/26 Follow CBC and coags. FEN: Hypokalemia Hyperphosphatemia Replace electrolytes as clinically indicated AM labs pending. Last potassium 3.2 MSK: PT/OT evaluate and treat Access - Left IJ CVL day 2 Prophylaxis - GI -Protonix drip - DVT - SCD/pharmacological prophylaxis contraindicated with GI bleed Critical Care: The total critical care time was 35 minutes. Time to perform other separately billable procedures was not included in the critical care time. Discuss with daughter at bedside. Care plan discussed and all questions answered. Jas Persaud MD Aug 27, 2016 06:40
[2016-08-27 07:03] LABS: ALKALINE PHOSPHATASE 110 U/L (45-117); ALT (GPT) 47 U/L (12-78); ANION GAP 13 MEQ/L (5-15); AST (GOT) 36 U/L (15-37); BICARBONATE 22.8 MEQ/L (21.0-32.0); BLOOD UREA NITROGEN 79 MG/DL (7-18); CHLORIDE 103 MEQ/L (98-107); GLOMERULAR FILTRATION RATE 25 ML/MIN (>89); MAGNESIUM 1.7 MG/DL (1.5-2.5); SODIUM (NA) 139 MEQ/L (136-145); TOTAL BILIRUBIN ADULT 0.4 MG/DL (0.2-1.0)
[2016-08-27 07:06] LABS: POTASSIUM 2.9 MEQ/L (3.5-5.1)
[2016-08-27] MEDS: RESP: ALBUTEROL 2.5 MG/IPRATROPIUM 0.5 MG NEB (SCH) NEB ×3 (07:24→21:35)
[2016-08-27] MEDS: RESP: BUDESONIDE 0.5 MG/2 ML NEB NEB SCH ×2 (07:24→21:34)
[2016-08-27] MEDS ORDERED: DEXMEDETOMIDINE INJ 50 ML IV SCH (07:30)
[2016-08-27] MEDS ORDERED: POTASSIUM CHLOR 40 MEQ PREMIX 100 ML IV ONE (08:00)
[2016-08-27] MEDS: MAGNESIUM SULFATE 1 GM PREMIX 100 ML IV SCH ×2 (08:48→08:51)
[2016-08-27] MEDS: MULTIVITAMIN TAB PO SCH (08:49)
[2016-08-27] MEDS: SODIUM CHLORIDE 0.9% FLUSH 5 ML FLUSH IVF SCH (08:49)
[2016-08-27 09:01] LABS: BANDS 18 % (0-6); METAMYELOCYTES 2 % (0-1); MYELOCYTES 3 % (0-0); POLYS (SEG NEUTROPHILS) 75 % (16-70); TOXIC GRANULATION 1+ (NORMAL); WBC DIFF SAMPLE 100
[2016-08-27 09:02] LABS: BURR CELLS 1+ (NORMAL); PLATELET ESTIMATE SMEAR LOW (NORMAL); PLATELET MORPHOLOGY NORMAL (NORMAL); SCAN/DIFF FINAL DIFF MANUAL; TOXIC VACUOLATION PRESENT (NONE SEEN)
[2016-08-27 09:03] LABS: ACANTHOCYTES 1+ (NORMAL)
--- NOTE | 2016-08-27 09:24 | HHI.IDPN ---
Subjective Subjective Remarks Notes reviewed Discussed with RN Patient is afebrile Off pressors since 6am Sedated on the vent NGT has dark red blood Had 4 BM last 24 hours WBC lower BC 3/7 with yeast no ID yet UC negative Sputum C/S pedning Making urine CXR better Antibiotics Zosyn Vancomycin Diflucan Micafungin Lines L I J central line Past Medical History Hypertension COPD O2 dependent prostate cancer Bladder outlet obstruction Hyperlipidemia Past Surgical History Ventral hernia Appendectomy Perforated gastric ulcer surgery Cataract Upper and lower endoscopy Allergies: Coded Allergies: *MDRO Multi-Drug Resistant Organism (Verified Adverse Reaction, Unknown, ) MRSA (abdominal wound) 2015 per 04/10/2015 H&P MRSA PCR Screen #1 NEGATIVE - 08/21/16 Objective . Vital Signs Date Time Temp Pulse Resp B/P Pulse Ox O2 Delivery O2 Flow Rate FiO2 08/27/16 07:26 96 40 08/27/16 06:00 80 08/27/16 04:00 75 08/27/16 04:00 97.5 75 27 118/62 100 Automatic Cuff 08/27/16 04:00 60 08/27/16 03:49 94 40 08/27/16 02:00 82 08/27/16 00:31 100 50 08/27/16 00:00 60 08/27/16 00:00 88 08/27/16 00:00 97.3 88 23 100 118/64 08/26/16 22:00 80 08/26/16 21:42 100 50 08/26/16 20:00 97.5 98 30 96 128/66 08/26/16 20:00 98 08/26/16 20:00 50 08/26/16 20:00 96 Mechanical Ventilator 60 08/26/16 18:40 99.7 93 26 134/67 98 08/26/16 18:00 93 08/26/16 16:30 96 50 08/26/16 16:00 60 08/26/16 16:00 96 08/26/16 16:00 97.2 96 24 117/51 97 08/26/16 14:00 94 08/26/16 12:30 100 50 08/26/16 12:00 86 08/26/16 12:00 60 08/26/16 12:00 97.0 86 23 110/66 97 08/26/16 10:00 79 08/26/16 09:54 99 50 08/26/16 08/26/16 08/27/16 15:00 23:00 07:00 Intake Total 1189 ml 1206 ml Output Total 600 ml 525 ml Balance 589 ml 681 ml IV Total 1189 ml 1206 ml Output Urine Total 400 ml 425 ml Gastric Drainage Total 200 ml 100 ml # Bowel Movements 2 2 . Laboratory Tests Test 08/25/16 08/26/16 08/26/16 08/26/16 12:21 04:52 16:00 23:00 Hemoglobin 9.6 GM/DL 8.7 GM/DL 8.0 GM/DL 9.5 GM/DL Hematocrit 28.0 % 25.5 % 23.7 % 28.3 % White Blood Count 58.2 TH/MM3 50.5 TH/MM3 Red Blood Count 2.91 MIL/MM3 2.66 MIL/MM3 Mean Corpuscular Volume 87.8 FL 89.0 FL Mean Corpuscular Hemoglobin 29.9 PG 30.0 PG Mean Corpuscular Hemoglobin 34.0 % 33.7 % Concent Red Cell Distribution Width 16.9 % 17.3 % Platelet Count 196 TH/MM3 155 TH/MM3 Mean Platelet Volume 8.4 FL 8.3 FL Neutrophils (%) (Auto) % Lymphocytes (%) (Auto) % Monocytes (%) (Auto) % Eosinophils (%) (Auto) % Basophils (%) (Auto) % Neutrophils # (Auto) TH/MM3 Lymphocytes # (Auto) TH/MM3 Monocytes # (Auto) TH/MM3 Eosinophils # (Auto) TH/MM3 Basophils # (Auto) TH/MM3 CBC Comment AUTO DIFF Differential Total Cells 100 Counted Neutrophils % (Manual) 41 % Band Neutrophils % 47 % Lymphocytes % 1 % Monocytes % 9 % Neutrophils # (Manual) 52.4 TH/MM3 Metamyelocytes 1 % Myelocytes 1 % Differential Comment FINAL DIFF MANUAL Toxic Granulation 1+ Dohle Bodies PRESENT Platelet Estimate NORMAL Platelet Morphology Comment NORMAL Test 08/27/16 06:00 White Blood Count 42.9 TH/MM3 Red Blood Count 3.24 MIL/MM3 Hemoglobin 9.5 GM/DL Hematocrit 28.4 % Mean Corpuscular Volume 87.8 FL Mean Corpuscular Hemoglobin 29.4 PG Mean Corpuscular Hemoglobin 33.5 % Concent Red Cell Distribution Width 16.6 % Platelet Count 129 TH/MM3 Mean Platelet Volume 8.0 FL Neutrophils (%) (Auto) 96.2 % Lymphocytes (%) (Auto) 1.6 % Monocytes (%) (Auto) 2.0 % Eosinophils (%) (Auto) 0.0 % Basophils (%) (Auto) 0.2 % Neutrophils # (Auto) 41.2 TH/MM3 Lymphocytes # (Auto) 0.7 TH/MM3 Monocytes # (Auto) 0.9 TH/MM3 Eosinophils # (Auto) 0.0 TH/MM3 Basophils # (Auto) 0.1 TH/MM3 CBC Comment AUTO DIFF Differential Total Cells 100 Counted Neutrophils % (Manual) 75 % Band Neutrophils % 18 % Lymphocytes % 1 % Monocytes % 1 % Neutrophils # (Manual) 42.0 TH/MM3 Metamyelocytes 2 % Myelocytes 3 % Differential Comment FINAL DIFF MANUAL Toxic Granulation 1+ Toxic Vacuolation PRESENT Platelet Estimate LOW Platelet Morphology Comment NORMAL Peter Cells 1+ Crenated Cell Acanthocytes 1+ Laboratory Tests Test 08/26/16 08/26/16 08/26/16 08/26/16 04:52 09:40 16:00 23:00 Sodium Level 137 MEQ/L 138 MEQ/L 137 MEQ/L Potassium Level 3.4 MEQ/L 3.3 MEQ/L 3.1 MEQ/L 3.2 MEQ/L Chloride Level 97 MEQ/L 98 MEQ/L 98 MEQ/L Carbon Dioxide Level 22.9 MEQ/L 25.7 MEQ/L 26.2 MEQ/L Anion Gap 17 MEQ/L 14 MEQ/L 13 MEQ/L Blood Urea Nitrogen 83 MG/DL 82 MG/DL 81 MG/DL Creatinine 2.73 MG/DL 2.63 MG/DL 2.79 MG/DL Estimat Glomerular Filtration 23 ML/MIN 24 ML/MIN 23 ML/MIN Rate Random Glucose 166 MG/DL 162 MG/DL 152 MG/DL Lactic Acid Level 1.0 mmol/L Calcium Level 7.8 MG/DL 7.3 MG/DL 7.5 MG/DL Magnesium Level 1.8 MG/DL Total Bilirubin 0.4 MG/DL Aspartate Amino Transf 66 U/L (AST/SGOT) Alanine Aminotransferase 59 U/L (ALT/SGPT) Alkaline Phosphatase 109 U/L Total Protein 5.0 GM/DL 4.7 GM/DL Albumin 1.7 GM/DL Protein Corrected Calcium 8.7 MG/DL Total Creatine Kinase 84 U/L Troponin I 0.13 NG/ML Thyroid Stimulating Hormone 0.333 uIU/ML 3rd Gen Phosphorus Level 5.0 MG/DL Test 08/27/16 06:00 Sodium Level 139 MEQ/L Potassium Level 2.9 MEQ/L Chloride Level 103 MEQ/L Carbon Dioxide Level 22.8 MEQ/L Anion Gap 13 MEQ/L Blood Urea Nitrogen 79 MG/DL Creatinine 2.52 MG/DL Estimat Glomerular Filtration 25 ML/MIN Rate Random Glucose 157 MG/DL Lactic Acid Level 0.8 mmol/L Calcium Level 7.8 MG/DL Phosphorus Level 5.0 MG/DL Magnesium Level 1.7 MG/DL Total Bilirubin 0.4 MG/DL Aspartate Amino Transf 36 U/L (AST/SGOT) Alanine Aminotransferase 47 U/L (ALT/SGPT) Alkaline Phosphatase 110 U/L Total Protein 4.9 GM/DL Albumin 1.5 GM/DL Microbiology Date/Time Procedure Status Source Growth 08/25/16 04:20 Aerobic Blood Culture - Preliminary Resulted Blood Peripheral NO GROWTH IN 1 DAY 08/25/16 04:20 Anaerobic Blood Culture - Preliminary Resulted Yeast-Id To Follow 08/25/16 04:27 Aerobic Blood Culture - Preliminary Resulted Blood Peripheral NO GROWTH IN 1 DAY 08/25/16 04:27 Anaerobic Blood Culture - Preliminary Resulted Yeast-Id To Follow 08/25/16 18:00 Urine Culture - Final Complete Urine Catheterized Urine NO GROWTH IN 48 HOURS. 08/26/16 14:40 Gram Stain Received Sputum Endotracheal Pending 08/26/16 14:40 Sputum Culture Received Sputum Endotracheal Pending Imaging Chest X-Ray 08/27/16 0600 Signed Impressions: Service Date/Time: August 02:27 - CONCLUSION: 1. Patchy bilateral airspace disease with improving aeration/decreasing effusions in the bases bilaterally. 2. Stable position of life support tubes. Con Valdes MD Chest X-Ray 08/26/16 0754 Signed Impressions: Service Date/Time: Friday, August 26, 2016 08:14 - CONCLUSION: Left IJ central line distal tip in the SVC. No pneumothorax is visualized. There is a stable appearance the lungs with bilateral airspace consolidation. Lex Malik MD Chest X-Ray 08/26/16 0600 Signed Impressions: Service Date/Time: Friday, August 26, 2016 04:01 - CONCLUSION: 1. Worsening bibasilar effusions/atelectasis with diffuse interstitial edema, all characteristic of CHF. 2. Endotracheal tube remains appropriately positioned above the michele Con Valdes MD Chest X-Ray 08/26/16 0754 Signed Impressions: Service Date/Time: Friday, August 26, 2016 08:14 - CONCLUSION: Left IJ central line distal tip in the SVC. No pneumothorax is visualized. There is a stable appearance the lungs with bilateral airspace consolidation. Lex Malik MD Renal Ultrasound 08/25/16 0000 Signed Impressions: Service Date/Time: Wednesday, August 24, 2016 21:53 - CONCLUSION: 1. There is no hydronephrosis. Both kidneys demonstrate mild increased echotexture of the parenchyma suggesting medical renal disease. 2. Trace perihepatic free fluid and bilateral pleural effusions. Lex Malik MD Chest CT 08/25/16 0000 Signed Impressions: Service Date/Time: Thursday, August 25, 2016 21:20 - CONCLUSION: 1. Bilateral pneumonia and aspiration would be in the differential. There is dependent consolidation/atelectasis and small effusions of the bases as well. 2. Upper limits of normal to mildly enlarged mediastinal lymph nodes, most likely reactive. 3. Coronary artery calcification. 4. Right rib fractures, including acute fractures laterally of the third, fourth and fifth. There are old, healed fractures anteriorly of the right second and third ribs.. Lex Lopez MD Abdomen/Pelvis CT 08/25/16 0000 Signed Impressions: Service Date/Time: Thursday, August 25, 2016 20:20 - CONCLUSION: 1. Ventral hernia containing small bowel and with associated small bowel obstruction. The defect is broad; I believe the obstruction is probably related to scarring and/or adhesions within the hernia sac. I don't see a mass. 2. Distended stomach despite NG tube present. 3. Severe aortoiliac atherosclerosis. No aneurysm. Lex Lopez MD Abdomen X-Ray 08/24/16 0000 Signed Impressions: Service Date/Time: Wednesday, August 24, 2016 17:19 - CONCLUSION: 1. Small bowel dilatation which reflect ileus or obstruction. Followup examination is recommended if clinically indicated. Gareth B. Turetsky, MD Physical Exam GENERAL: Sedated and intubated, not in distress SKIN: Warm and dry. No generalized rash or ecchymosis. HEAD: Atraumatic. Normocephalic. No temporal or scalp tenderness. EYES: Pale conjunctivae, no petechia or hemorrhage. Pupils equal round and reactive. No scleral icterus. No injection or drainage. ENT: Nose without bleeding, purulent drainage. Has endotracheal tube in the mouth. NGT in place NECK: Trachea midline. No JVD or lymphadenopathy. Supple. LIJ TLC looks ok CARDIOVASCULAR: Regular rate and rhythm without murmurs, gallops, or rubs. RESPIRATORY: Decreased breath sounds throughout both lung garcia. GASTROINTESTINAL: Abdomen soft, with protuberance in middle, this is an incisional hernia. No reaction to deep palpation. Has midline scar. Bowel sounds are hypoactive, no guarding. MUSCULOSKELETAL: Extremities without clubbing, cyanosis. Developing ne pedal edema. NEUROLOGICAL: Sedated PSYCH: Unable to assess LINE: LIJ TLC no evidence of infection. Assessment & Plan Remarks IMPRESSION Status post cardiorespiratory arrest, likely aspirated Findings SBO within hernia on CT A/P Likely aspiration pneumonia Sepsis has yeastin blood, concern is intraabdominal - per family his abdomen was very distended prior to the code - has had vomiting, NGT decompression of abdomen and also (+) bowel movement - ?translocation - had SBO on CT - he did not have lines prior to code Respiratory failure GI bleed Leukocytosis, lower today, though still significant - most likely multifactorial, due to acute GI bleed as well as aspiration and arrest COPD, oxygen dependent Previous GI bleed with workup showing gastritis, Ashley esophagitis, and polyps Large incisional ventral hernia Bladder outlet obstruction, currently has a Hammond Renal insufficiency RECOMMENDATION Repeat BC today Follow C/S Continue Diflucan and Micafungin If yeast is not C glabrata, will stop Micafungin - I spoke with micro and should have some prelim ID today Continue Vanco and Zosyn - pharm doing Vanco dosing Will adjust antibiotics once cultures are available Follow CBC Monitor progress D/W RN. Updated and daughter about current findings and plan I will be OOT 08/28-09/01 Other ID MD will be covering in my absence Nuha Fernandez MD Aug 27, 2016 09:24
[2016-08-27] MEDS: MICAFUNGIN INJ 100 MG in SODIUM CHLORIDE 0.9% INJ 100 ML IV SCH (11:56)
[2016-08-27] MEDS: MIDAZOLAM 100 MG/ML INJ 100 ML IV SCH (11:56)
--- NOTE | 2016-08-27 11:56 | HHI.PR ---
Subjective Subjective Notes Intubated/Sedated Family at bedside reports multiple large BMs overnight Objective Vitals/I&O Vital Signs Date Time Temp Pulse Resp B/P Pulse Ox O2 Delivery O2 Flow Rate FiO2 08/27/16 10:00 82 08/27/16 08:00 97.6 25 110/69 98 08/27/16 08:00 40 08/27/16 07:00 Mechanical Ventilator 08/24/16 08:45 4.00 Labs Laboratory Tests Test 08/26/16 08/26/16 08/27/16 08/27/16 16:00 23:00 06:00 10:30 White Blood Count 50.5 42.9 Red Blood Count 2.66 3.24 Hemoglobin 8.0 9.5 9.5 Hematocrit 23.7 28.3 28.4 Mean Corpuscular Volume 89.0 87.8 Mean Corpuscular Hemoglobin 30.0 29.4 Mean Corpuscular Hemoglobin 33.7 33.5 Concent Red Cell Distribution Width 17.3 16.6 Platelet Count 155 129 Mean Platelet Volume 8.3 8.0 Sodium Level 137 139 Potassium Level 3.1 3.2 2.9 Chloride Level 98 103 Carbon Dioxide Level 26.2 22.8 Anion Gap 13 13 Blood Urea Nitrogen 81 79 Creatinine 2.79 2.52 Estimat Glomerular Filtration 23 25 Rate Random Glucose 152 157 Calcium Level 7.5 7.8 Phosphorus Level 5.0 5.0 Neutrophils (%) (Auto) 96.2 Lymphocytes (%) (Auto) 1.6 Monocytes (%) (Auto) 2.0 Eosinophils (%) (Auto) 0.0 Basophils (%) (Auto) 0.2 Neutrophils # (Auto) 41.2 Lymphocytes # (Auto) 0.7 Monocytes # (Auto) 0.9 Eosinophils # (Auto) 0.0 Basophils # (Auto) 0.1 CBC Comment AUTO DIFF Differential Total Cells 100 Counted Neutrophils % (Manual) 75 Band Neutrophils % 18 Lymphocytes % 1 Monocytes % 1 Neutrophils # (Manual) 42.0 Metamyelocytes 2 Myelocytes 3 Differential Comment FINAL DIFF MANUAL Toxic Granulation 1+ Toxic Vacuolation PRESENT Platelet Estimate LOW Platelet Morphology Comment NORMAL Peter Cells 1+ Crenated Cell Acanthocytes 1+ Prothrombin Time 13.1 Prothromb Time International 1.2 Ratio Activated Partial 49.0 Thromboplast Time Lactic Acid Level 0.8 Magnesium Level 1.7 Total Bilirubin 0.4 Aspartate Amino Transf 36 (AST/SGOT) Alanine Aminotransferase 47 (ALT/SGPT) Alkaline Phosphatase 110 Total Protein 4.9 Albumin 1.5 Random Vancomycin Level 27.6 Date/Time Procedure Status Source Growth 08/27/16 10:30 Aerobic Blood Culture Received Blood Line Pending 08/27/16 10:30 Anaerobic Blood Culture Received Blood Line Pending 08/26/16 14:40 Gram Stain - Final Resulted Sputum Endotracheal 08/26/16 14:40 Sputum Culture Resulted Sputum Endotracheal Pending 08/25/16 18:00 Urine Culture - Final Complete Urine Catheterized Urine NO GROWTH IN 48 HOURS. 08/25/16 04:27 Aerobic Blood Culture - Preliminary Resulted Blood Peripheral NO GROWTH IN 2 DAYS 08/25/16 04:27 Anaerobic Blood Culture - Preliminary Resulted Yeast-Id To Follow 08/22/16 12:45 Aerobic Blood Culture - Final Complete Blood Peripheral NO GROWTH IN 5 DAYS 08/22/16 12:45 Anaerobic Blood Culture - Final Complete Blood Peripheral NO GROWTH IN 5 DAYS Cardiovascular: Regular Lungs: Clear Abdomen: Non-distended, Non-tender Extremities: No edema A/P Assessment and Plan 71 year old male s/p cardiac arrest with SBO versus ileus; patient known to Dr. Diaz for large ventral hernia -+BM -Likely obstruction/ileus has now resolved -Okay to start tube feeding and advance as tolerated -Discussed with family at the bedside -Discussed with Dr. Persaud -Will follow PRN I certify and attest that I personally examined this patient with Ms. Meza who documented our visit in the EMR and entered orders under my direct supervision. I reviewed the care plan with the nursing staff and family if present. TANESHA DIAZ MD [facility] Olivia Meza Aug 27, 2016 11:56 Tanesha Diaz MD Sep 09, 2016 14:31
--- NOTE | 2016-08-27 12:42 | HHI.GIFU ---
Subjective Remarks Pt sedated on vent. Small amount dark gastric secretions. Distention much improved. Family and nurse report several large bowel movements. No active bleeding. Going for MRI brain today. Objective Vitals I&O Vital Signs Date Time Temp Pulse Resp B/P Pulse Ox O2 Delivery O2 Flow Rate FiO2 08/27/16 12:00 40 08/27/16 12:00 79 08/27/16 12:00 97.6 79 20 130/69 96 08/27/16 10:00 82 08/27/16 08:00 97.6 76 25 110/69 98 08/27/16 08:00 40 08/27/16 08:00 76 08/27/16 07:26 96 40 08/27/16 07:00 96 Mechanical Ventilator 40 08/27/16 06:00 80 08/27/16 04:00 75 08/27/16 04:00 97.5 75 27 118/62 100 Automatic Cuff 08/27/16 04:00 60 08/27/16 03:49 94 40 08/27/16 02:00 82 08/27/16 00:31 100 50 08/27/16 00:00 60 08/27/16 00:00 88 08/27/16 00:00 97.3 88 23 100 118/64 08/26/16 22:00 80 08/26/16 21:42 100 50 08/26/16 20:00 97.5 98 30 96 128/66 08/26/16 20:00 98 08/26/16 20:00 50 08/26/16 20:00 96 Mechanical Ventilator 60 08/26/16 18:40 99.7 93 26 134/67 98 08/26/16 18:00 93 08/26/16 16:30 96 50 08/26/16 16:00 60 08/26/16 16:00 96 08/26/16 16:00 97.2 96 24 117/51 97 08/26/16 14:00 94 I/O 08/26/16 08/26/16 08/26/16 08/27/16 08/27/16 08/27/16 07:00 15:00 23:00 07:00 15:00 23:00 Intake Total 1404 ml 1189 ml 1206 ml Output Total 700 ml 600 ml 525 ml Balance 704 ml 589 ml 681 ml IV Total 1344 ml 1189 ml 1206 ml Tube Irrigant 60 ml Output Urine Total 350 ml 400 ml 425 ml Gastric Drainage Total 350 ml 200 ml 100 ml # Bowel Movements 0 2 2 Laboratory Laboratory Tests Test 08/26/16 08/26/16 08/27/16 08/27/16 16:00 23:00 06:00 10:30 White Blood Count 50.5 42.9 Red Blood Count 2.66 3.24 Hemoglobin 8.0 9.5 9.5 Hematocrit 23.7 28.3 28.4 Mean Corpuscular Volume 89.0 87.8 Mean Corpuscular Hemoglobin 30.0 29.4 Mean Corpuscular Hemoglobin 33.7 33.5 Concent Red Cell Distribution Width 17.3 16.6 Platelet Count 155 129 Mean Platelet Volume 8.3 8.0 Sodium Level 137 139 Potassium Level 3.1 3.2 2.9 Chloride Level 98 103 Carbon Dioxide Level 26.2 22.8 Anion Gap 13 13 Blood Urea Nitrogen 81 79 Creatinine 2.79 2.52 Estimat Glomerular Filtration 23 25 Rate Random Glucose 152 157 Calcium Level 7.5 7.8 Phosphorus Level 5.0 5.0 Neutrophils (%) (Auto) 96.2 Lymphocytes (%) (Auto) 1.6 Monocytes (%) (Auto) 2.0 Eosinophils (%) (Auto) 0.0 Basophils (%) (Auto) 0.2 Neutrophils # (Auto) 41.2 Lymphocytes # (Auto) 0.7 Monocytes # (Auto) 0.9 Eosinophils # (Auto) 0.0 Basophils # (Auto) 0.1 CBC Comment AUTO DIFF Differential Total Cells 100 Counted Neutrophils % (Manual) 75 Band Neutrophils % 18 Lymphocytes % 1 Monocytes % 1 Neutrophils # (Manual) 42.0 Metamyelocytes 2 Myelocytes 3 Differential Comment FINAL DIFF MANUAL Toxic Granulation 1+ Toxic Vacuolation PRESENT Platelet Estimate LOW Platelet Morphology Comment NORMAL Peter Cells 1+ Crenated Cell Acanthocytes 1+ Prothrombin Time 13.1 Prothromb Time International 1.2 Ratio Activated Partial 49.0 Thromboplast Time Lactic Acid Level 0.8 Magnesium Level 1.7 Total Bilirubin 0.4 Aspartate Amino Transf 36 (AST/SGOT) Alanine Aminotransferase 47 (ALT/SGPT) Alkaline Phosphatase 110 Total Protein 4.9 Albumin 1.5 Random Vancomycin Level 27.6 Date/Time Procedure Status Source Growth 08/27/16 10:30 Aerobic Blood Culture Received Blood Line Pending 3/9/17 10:30 Anaerobic Blood Culture Received Blood Line Pending 08/26/16 14:40 Gram Stain - Final Resulted Sputum Endotracheal 08/26/16 14:40 Sputum Culture Resulted Sputum Endotracheal Pending 08/25/16 18:00 Urine Culture - Final Complete Urine Catheterized Urine NO GROWTH IN 48 HOURS. 08/25/16 04:27 Aerobic Blood Culture - Preliminary Resulted Blood Peripheral NO GROWTH IN 2 DAYS 08/25/16 04:27 Anaerobic Blood Culture - Preliminary Resulted Yeast-Id To Follow 08/22/16 12:45 Aerobic Blood Culture - Final Complete Blood Peripheral NO GROWTH IN 5 DAYS 08/22/16 12:45 Anaerobic Blood Culture - Final Complete Blood Peripheral NO GROWTH IN 5 DAYS Imaging Last Impressions Chest X-Ray 08/27/16 0600 Signed Impressions: Service Date/Time: August 02:27 - CONCLUSION: 1. Patchy bilateral airspace disease with improving aeration/decreasing effusions in the bases bilaterally. 2. Stable position of life support tubes. Con Valdes MD Renal Ultrasound 08/25/16 0000 Signed Impressions: Service Date/Time: Wednesday, August 24, 2016 21:53 - CONCLUSION: 1. There is no hydronephrosis. Both kidneys demonstrate mild increased echotexture of the parenchyma suggesting medical renal disease. 2. Trace perihepatic free fluid and bilateral pleural effusions. Lex Malik MD Chest CT 08/25/16 0000 Signed Impressions: Service Date/Time: Thursday, August 25, 2016 21:20 - CONCLUSION: 1. Bilateral pneumonia and aspiration would be in the differential. There is dependent consolidation/atelectasis and small effusions of the bases as well. 2. Upper limits of normal to mildly enlarged mediastinal lymph nodes, most likely reactive. 3. Coronary artery calcification. 4. Right rib fractures, including acute fractures laterally of the third, fourth and fifth. There are old, healed fractures anteriorly of the right second and third ribs.. Lex Lopez MD Abdomen/Pelvis CT 08/25/16 0000 Signed Impressions: Service Date/Time: Thursday, August 25, 2016 20:20 - CONCLUSION: 1. Ventral hernia containing small bowel and with associated small bowel obstruction. The defect is broad; I believe the obstruction is probably related to scarring and/or adhesions within the hernia sac. I don't see a mass. 2. Distended stomach despite NG tube present. 3. Severe aortoiliac atherosclerosis. No aneurysm. Lex Lopez MD Abdomen X-Ray 08/24/16 0000 Signed Impressions: Service Date/Time: Wednesday, August 24, 2016 17:19 - CONCLUSION: 1. Small bowel dilatation which reflect ileus or obstruction. Followup examination is recommended if clinically indicated. Gareth Escalante MD Physical Exam HEENT: Normocephalic; atraumatic; no jaundice CHEST: Resp even. diminished. OETT to vent CARDIAC: RRR ABDOMEN: Soft, nondistended, no hepatosplenomegaly; bowel sounds are present in all four quadrants. Large ventral hernia reducible. OGT with small amount dark gastric secretions. + Multiple bowel movements SKIN: Skin dusky, cool to touch, dry BELLMAN CAPTAIN: Unresponsive Assessment and Plan Plan ASSESSMENT: - Massive GIB with older appearing dark maroon gastric secretions. Pt is s/p CODE BLUE, vomiting large amount of dark maroon secretions on 08/24 and HH dropped to 5.4/16.7. According to the chart , he has a hx of perforated gastric ulcer. Recent EGD (08/10/16)---> mild gastritis, nodules in the EG junction, moderate esophagitis, normal endoscopy otherwise, retroflexed views revealed no abnormalities. Pathology revealed mild active chronic gastritis, nodule GE junction with gastric mucosa with mild chronic inflammation of the lamina propria and foveolar hyperplasia, acutely inflamed squamous mucosa and detached fragments of acute inflammatory exudate multiple budding yeast and pseudohyphae are present in exudate, acutely ulcerated mucosa of distal esophagus with numerous budding yeast and pseudohyphae invading tissue, consistent with mary kay esophagitis. Colonoscopy (08/11/16) with polypectomy and ablation of polyp in ascending colon with hot snare. Ascending colon with markedly cauterized colonic mucosa with features suggestive of hyperplastic polyp. S/P EGD (08/26/16)-----> Proximal esophageal lesion possibly vascular in nature , Incomplete evaluation of the stomach, Deformed pylorus. S/P CT chest (08/25/16)-----> 1. Bilateral pneumonia and aspiration would be in the differential. There is dependent consolidation/atelectasis and small effusions of the bases as well. 2. Upper limits of normal to mildly enlarged mediastinal lymph nodes, most likely reactive. 3. Coronary artery calcification. 4. Right rib fractures, including acute fractures laterally of the third, fourth and fifth. There are old, healed fractures anteriorly of the right second and third ribs. At this time, he does not appear to be having active bleeding. Protonix Gtt. Diflucan. Micafungin. Not having active GI bleeding at this time. - Anemia secondary acute blood loss. S/P 4 units PRBC, 2 units FFP. .11/15.4. - Ileus vs. Bowel obstruction. Abdomen X-Ray (08/24/16)---> 1. Small bowel dilatation which reflect ileus or obstruction. Followup examination is recommended if clinically indicated. Abdomen/Pelvis CT (08/25/16)----> 1. Ventral hernia containing small bowel and with associated small bowel obstruction. The defect is broad; I believe the obstruction is probably related to scarring and/or adhesions within the hernia sac. I don't see a mass. 2. Distended stomach despite NG tube present. 3. Severe aortoiliac atherosclerosis. No aneurysm. GS following, known to Dr. Roberts. GS following. Abdominal distention much improved, soft, nondistended. Large ventral hernia- reducible. Only 200cc gastric output last night, 100cc this shift. Multiple large loose/liquid bowel movements. Okay with GS to start feedings. - Recent mary kay esophagitis. Diflucan, Micafungin, Protonix gtt. - S/P CODE BLUE (08/24). Pt with ROSC after 15 MN. Going for MRI brain today. - Acute respiratory failure with COPD and suspected HCAP. Vent, Nebs, Abx per CCM - Large Ventral hernia, reducible. per Dr. Roberts - Sepsis, Severe leukocytosis, worsening. WBC 42.9. Bx growing yeast. ID following. Abx Vancomycin, Diflucan, Micafungin, PLAN: - Diet per GS - Cont. Protonix Gtt - Cont. Diflucan/Micafungin per ID recommendations - Monitor HH - Transfuse as necessary - Supportive care - Monitor labs - If any active bleeding, then one should contemplate a Gilles tube placement and possible angiography. - Patient will most likely require repeat EGD with possible therapy to this lesion in the proximal esophagus - Further recommendations to follow based on results of above - PT seen and examined by Dr. Radford and myself and this note is written on his behalf Ronna Aldrich Aug 27, 2016 12:42
[2016-08-27] MEDS ORDERED: LIDOCAINE HCL 2% 100 MG/5 ML SYRINGE ONE (14:21)
[2016-08-27] MEDS ORDERED: EPINEPHrine HCL (1:10,000) 1 MG/10 ML SYRINGE ONE (14:21)
[2016-08-27] MEDS ORDERED: ATROPINE SULFATE 1 MG/10 ML SYRINGE ONE (14:21)
--- NOTE | 2016-08-27 17:23 | RADRPT ---
EXAM DATE/TIME: 08/27/2016 15:13 [facility] COMPARISON: No previous studies available for comparison. INDICATIONS : Post cardiac arrest. Anoxia. MEDICAL HISTORY : Hypertension. Chronic obstructive pulmonary disease. Carcinoma, prostate. SURGICAL HISTORY : Appendectomy. Umbilical hernia repair. ENCOUNTER: Subsequent ACUITY: 1 week PAIN SCORE: Nonresponsive. LOCATION: head TECHNIQUE: Multiplanar, multisequence MRI of the brain was performed without contrast. FINDINGS: CEREBRUM: The ventricles are normal for age. No evidence of midline shift, mass lesion, hemorrhage or acute in farction. No extraaxial fluid collections are seen. The pituitary gland and suprasellar cistern are normal in configuration. WHITE MATTER: No significant signal abnormalities are seen in the white matter. POSTERIOR FOSSA: The cerebellum and brainstem are intact. The 4th ventricle is midline. The cerebellopontine angle is unremarkable. The cerebellar tonsils are normal in position. DIFFUSION IMAGING: No focal areas of restricted diffusion are seen. No evidence of acute infarction. EXTRACRANIAL: The visualized portions of the orbits and paranasal sinuses are unremarkable. CONCLUSION: No evidence of acute infarct, hemorrhage, mass or edema. No findings to suggest significant anoxic injury. Kit Power MD on August 27, 2016 at 17:20 Board Certified Radiologist. This report was verified electronically.
[2016-08-27 22:14] LABS: HEMATOCRIT 26.8 % (39.0-51.0); MEAN CELL VOLUME 88.3 FL (80.0-100.0); PLATELET COUNT 113 TH/MM3 (150-450); RED BLOOD COUNT 3.03 MIL/MM3 (4.50-5.90); RED CELL DISTRIBUTION WIDTH 16.4 % (11.6-17.2); WHITE BLOOD COUNT 34.3 TH/MM3 (4.0-11.0)
[2016-08-27 22:17] LABS: REVIEW FLAG FINAL
[2016-08-27 22:54] LABS: BICARBONATE 25.1 MEQ/L (21.0-32.0)
[2016-08-27 23:04] LABS: POTASSIUM 2.9 MEQ/L (3.5-5.1)
[2016-08-27] MEDS ORDERED: POTASSIUM CHLOR 20 MEQ PREMIX 100 ML IV ONE (23:45)
[2016-08-28] VITALS (19 sets, daily range): BP systolic 122–165; BP diastolic 71–93; PULSE 64–117; RESP 20–29; TEMP 97.5–99.1; O2SAT 92–97
[2016-08-28] MEDS: PIPERACIL-TAZO 3.375 GM PREMIX 50 ML IV SCH ×4 (03:11→22:26)
[2016-08-28] MEDS: RESP: ALBUTEROL 2.5 MG/IPRATROPIUM 0.5 MG NEB (SCH) NEB ×4 (03:45→22:00)
[2016-08-28 05:12] LABS: AUTOMATED NEUTROPHIL # 32.9 TH/MM3 (1.8-7.7); BASOPHIL # 0.1 TH/MM3 (0-0.2); BASOPHIL % 0.2 % (0.0-2.0); EOSINOPHIL % 0.1 % (0.0-4.0); HEMATOCRIT 27.4 % (39.0-51.0); LYMPH % 1.7 % (9.0-44.0); LYMPHOCYTE # 0.6 TH/MM3 (1.0-4.8); MEAN CELL VOLUME 88.1 FL (80.0-100.0); MONO % 2.1 % (0.0-8.0); NEUT % 95.9 % (16.0-70.0); PLATELET COUNT 118 TH/MM3 (150-450); RED BLOOD COUNT 3.11 MIL/MM3 (4.50-5.90); WHITE BLOOD COUNT 34.3 TH/MM3 (4.0-11.0)
[2016-08-28 05:19] LABS: HEMO FLAGS AUTO DIFF
[2016-08-28 05:33] LABS: ANION GAP 12 MEQ/L (5-15); AST (GOT) 23 U/L (15-37); BLOOD UREA NITROGEN 72 MG/DL (7-18); CHLORIDE 110 MEQ/L (98-107); GLOMERULAR FILTRATION RATE 30 ML/MIN (>89); MAGNESIUM 1.9 MG/DL (1.5-2.5); SODIUM (NA) 145 MEQ/L (136-145)
[2016-08-28 05:46] LABS: ALKALINE PHOSPHATASE 106 U/L (45-117); ALT (GPT) 39 U/L (12-78)
[2016-08-28] MEDS ORDERED: PHARMACY ORDERED LAB XX ONE (06:00)
[2016-08-28] MEDS: HYDROCORTISONE SOD SUCCINATE 100 MG VIAL IV PUSH SCH (06:08)
[2016-08-28 06:14] LABS: TOTAL BILIRUBIN ADULT 0.3 MG/DL (0.2-1.0)
[2016-08-28 07:47] LABS: BANDS 8 % (0-6); KERATOCYTES OCC (NORMAL); METAMYELOCYTES 1 % (0-1); MYELOCYTES 2 % (0-0); NEUTROPHIL # MANUAL DIFF 32.6 TH/MM3 (1.8-7.7); PLATELET ESTIMATE SMEAR LOW (NORMAL); PLATELET MORPHOLOGY NORMAL (NORMAL); POLYS (SEG NEUTROPHILS) 84 % (16-70); WBC DIFF SAMPLE 100
[2016-08-28 07:48] LABS: SCAN/DIFF FINAL DIFF MANUAL
[2016-08-28] MEDS: SODIUM CHLORIDE 0.9% FLUSH 5 ML FLUSH IVF SCH (09:00)
[2016-08-28] MEDS: SODIUM CHLOR 0.9% 1000 ML INJ 1,000 ML IV SCH ×2 (09:14→20:08)
[2016-08-28] MEDS: PANTOPRAZOLE INJ 80 MG in SODIUM CHLORIDE 0.9% INJ 100 ML IV SCH ×2 (09:14→15:43)
[2016-08-28] MEDS: MULTIVITAMIN TAB PO SCH (09:14)
[2016-08-28] MEDS: RESP: BUDESONIDE 0.5 MG/2 ML NEB NEB SCH ×2 (09:22→22:00)
[2016-08-28] MEDS ORDERED: VANCOMYCIN 1,000 MG/NS 250 ML IV ONE ×2 (11:00)
[2016-08-28] MEDS ORDERED: chlorproMAZINE HCL 25 MG TAB PO PRN (11:30)
--- NOTE | 2016-08-28 12:21 | HHI.CCPN ---
Subjective Remarks/Hospital Course 08/24: 71 Year-old male with a medical history significant for COPD on home oxygen who was recently admitted with suspected sepsis/H And was initiated on IV antibiotics and steroids. He had recently been evaluated by GI and underwent EGD on 08/10/2016 and was found to have moderate esophagitis, mild gastritis with pathology subsequently showing Ashley esophagitis as well as colonoscopy on 08/11/2016 with polypectomy and ablation of polyp in ascending colon with hot snare. Patient has been dealing with constipation since his admission. Today when he was trying to have a bowel movement he suddenly became less responsive and then had a large emesis which resulted in aspiration and hemodynamic collapse. Patient initially had large volume emesis with dark maroon blood. CODE BLUE cardiac arrest code was activated. On my arrival patient was in bed CPR had been initiated. Significant gastric contents was still being suctioned out of his oral cavity. ACLS protocol was continued. Patient was intubated following vigorous suctioning of gastric contents from oral cavity as well as with placement of NG tube which is hooked up to suction and about 1.5 L of gastric contents being suctioned out which appeared to be dark maroon in color. Patient initially had a pulse when CODE BLUE was called and subsequently went in PEA arrest followed by asystole during ACLS and then V. fib for which he was defibrillated with 200 J 1, CPR/ACLS protocol was continued and patient eventually had return of spontaneous circulation after about 15 minutes of CPR/ACLS. Patient was transferred to [facility] and placed on mechanical ventilation. I emergently placed left femoral central line for central vascular access and he was started on Levophed for pressor support. 2 units of O- 1 crossmatch blood were ordered and transfused stat. He also received 1 L of normal saline bolus following return of spontaneous circulation. Stat labs were ordered. His hemoglobin on ABG done post resuscitation was 5.6. I did order Protonix 80 mg IV stat followed by 8 mg per hour IV infusion. Patient remained encephalopathic though was minimally responsive following transfer to the ICU. GI consult was requested and I spoke with Dr. Zamarripa at bedside on his arrival. History was obtained by reviewing records, discussion with family/ GI as well as nursing staff. According to patient's daughter he has not been doing well for the last few months in terms of his breathing and has been using his home oxygen more often. He gets extremely short of breath even with the least exertion. 08/25: Remains encephalopathic/ sedated, orally intubated on [facility] ventilation. Transiently off levophed last night however back to 11 mcg/min currently. Hgb up to 9.4 following 4 units PRBCs transfused last night. 08/26: Tmax 99. Some unresponsive on the ventilator. CT abdomen/pelvis less than revealed small bowel obstruction at site of ventral hernia. No further bleeding noted. Gastric output approximately 700 cc. No bowel movement. 08/27: Tmax 99.7. Currently afebrile. Positive BM overnight approximately 1 L according to RN. No blood noted. 100 cc from gastric tube overnight. Hemoglobin corrected a properly. Likely dilutional. Noted fungemia currently issue. Opens eyes to voice. Subjective 08/28: Tmax 99.1. No BMs overnight. Minimal gastric tube output. Hemoglobin stable 9.5. Opens eyes to voice. Not following commands. Appears with singultus this morning. Objective Vital Signs Date Time Temp Pulse Resp B/P Pulse Ox O2 Delivery O2 Flow Rate FiO2 08/28/16 10:00 117 08/28/16 08:10 92 40 08/28/16 08:00 99.1 20 141/72 Automatic Cuff 08/28/16 07:00 Mechanical Ventilator 08/24/16 08:45 4.00 Intake and Output 08/27/16 08/27/16 08/28/16 08:00 16:00 00:00 Intake Total 1206 ml 1196 ml 1025 ml Output Total 525 ml 575 ml 650 ml Balance 681 ml 621 ml 375 ml Result Diagram: 08/28/16 0500 08/28/16 0500 Other Results Microbiology Date/Time Procedure Status Source Growth 08/27/16 10:30 Aerobic Blood Culture - Preliminary Resulted Blood Line NO GROWTH IN 1 DAY 08/27/16 10:30 Anaerobic Blood Culture - Preliminary Resulted Blood Line NO GROWTH IN 1 DAY 08/26/16 14:40 Gram Stain - Final Complete Sputum Endotracheal 08/26/16 14:40 Sputum Culture - Final Complete Serratia Marcescens 08/25/16 18:00 Urine Culture - Final Complete Urine Catheterized Urine NO GROWTH IN 48 HOURS. Imaging Last Impressions Chest X-Ray 08/27/16 0600 Signed Impressions: Service Date/Time: August 02:27 - CONCLUSION: 1. Patchy bilateral airspace disease with improving aeration/decreasing effusions in the bases bilaterally. 2. Stable position of life support tubes. Con Valdes MD Brain MRI 08/27/16 Signed Impressions: Service Date/Time: August 15:13 - CONCLUSION: No evidence of acute infarct, hemorrhage, mass or edema. No findings to suggest significant anoxic injury. Kit Power MD Renal Ultrasound 08/25/16 Signed Impressions: Service Date/Time: Wednesday, August 24, 2016 21:53 - CONCLUSION: 1. There is no hydronephrosis. Both kidneys demonstrate mild increased echotexture of the parenchyma suggesting medical renal disease. 2. Trace perihepatic free fluid and bilateral pleural effusions. Lex Malik MD Chest CT 08/25/16 Signed Impressions: Service Date/Time: Thursday, August 25, 2016 21:20 - CONCLUSION: 1. Bilateral pneumonia and aspiration would be in the differential. There is dependent consolidation/atelectasis and small effusions of the bases as well. 2. Upper limits of normal to mildly enlarged mediastinal lymph nodes, most likely reactive. 3. Coronary artery calcification. 4. Right rib fractures, including acute fractures laterally of the third, fourth and fifth. There are old, healed fractures anteriorly of the right second and third ribs.. Lex Lopez MD Abdomen/Pelvis CT 08/25/16 Signed Impressions: Service Date/Time: Thursday, August 25, 2016 20:20 - CONCLUSION: 1. Ventral hernia containing small bowel and with associated small bowel obstruction. The defect is broad; I believe the obstruction is probably related to scarring and/or adhesions within the hernia sac. I don't see a mass. 2. Distended stomach despite NG tube present. 3. Severe aortoiliac atherosclerosis. No aneurysm. Lex Lopez MD Abdomen X-Ray 08/24/16 Signed Impressions: Service Date/Time: Wednesday, August 24, 2016 17:19 - CONCLUSION: 1. Small bowel dilatation which reflect ileus or obstruction. Followup examination is recommended if clinically indicated. Gareth Escalante MD Objective Remarks GENERAL: 71-year-old male, critically ill currently resting in bed SKIN: Warm and dry. No rash HEAD: Atraumatic. Normocephalic. EYES: Pupils equal and round about 2-3 mm bilaterally and reactive. No scleral icterus. No injection or drainage. ENT: No nasal bleeding or discharge. Mucous membranes pink and moist. NECK: Trachea midline. No JVD. Left IJ clean dry and intact CARDIOVASCULAR: Tachycardic, RR. S1, S2. No S4. Without murmur RESPIRATORY: Diminished breath sounds throughout, specifically at the bases bilaterally. Positive expiratory wheeze. Breath sounds equal bilaterally. GASTROINTESTINAL: Abdomen significant for easily reducible ventral hernia.. Hypoactive bowel sounds are appreciated. Dark brown output from NG tube MUSCULOSKELETAL: Extremities with 1+ upper and lower extremity peripheral edema. No obvious deformities. NEUROLOGICAL: Arousable on the ventilator to physical and stimulation. Currently not following commands. Opens eyes to voice. Withdraws to pain in all 4 extremities more left upper > right upper limb > bilateral lower extremities. Vascular Central Line Catheter: Yes Assessment to: Continue Date of Insertion: Aug 26, 2016 Line: Central Venous Catheter Side: Left Location: Internal, Jugular A/P Assessment and Plan Neuro/Psych: Status post CPR 15 minutes - possible anoxic encephalopathy Depression NOS Follow neuro status. Versed for sedation current 6 mg an hour for sedation while intubated We'll switch to Precedex and attempt to wean to better assess neurological status Goal of RASS -2. Concern for anoxic encephalopathy following cardiac arrest. EEG 08/25 revealed mild to moderate encephalopathy. No epileptiform activity. If stable will check MRI brain further evaluate Holding trazodone 50 mg at night for depression Cardiovascular: Cardiac arrest status post CPR Elevated troponin History dyslipidemia History of hypertension PVD Systemic shock likely secondary to sepsis/aspiration/small bowel obstruction Off all vasopressors Currently normal saline at 125 cc an hour. We will restart Cardizem at 30 mg 4 times a day since blood pressures normalized. Not on any lipid-lowering agents at home. Cardiac arrest status post CPR. s/p aggressive fluid resuscitation. 5 units PRBCs transfused. To date minimal troponin elevation following cardiac arrest noted. Echo 2D revealed EF 55%. Moderate LVH. Mitral valve calcified. Mild TR. Pulmonary: Acute respiratory failure secondary to aspiration pneumonia End-stage COPD. Oxygen dependent FEV1 28%, FVC 1.6. ACV 20/500/8/50 Duo nebs every 6 hours and as needed, At home on Symbicort 160/4.5 twice a day and duo nebs 4 times a day Switched to Pulmicort twice a day prednisone switched to IV hydrocortisone 50 mg IV every 12 hours. Titrate FiO2 down provided O2 sat greater than 90%. CT chest revealed small pleural effusions bilaterally with likely aspiration Spontaneous breathing trials when clinically indicated Follow-up on chest x-ray/ABG today. GI/liver: History of ventral hernia Hypokalemia Nothing by mouth, NG suction. Protonix 80 mg IV bolus followed by 8 mg/h IV infusion. GI consulted and discussed this with Dr. Radford on 08/24. Being resuscitated currently. EGD revealed 25 cm proximal esophagus with possible bleeding. Rule out aorto esophageal fistula. Dr. roberts/general surgery evaluated. Does not believe abdomen surgical the present time. 40 mEq KCl 2 g mag sulfate IV 1 now. GI. Small bowel obstruction Upper GI bleed plus esophageal rule out aorto esophageal fistula History of Ashley esophagitis History of colonic polyps History of ventral hernia status post repair last by Dr. Roberts CT abdomen/pelvis the sesamoid revealed small bowel obstruction level but hernia. Severe aortoiliac disease. Dr. roberts/general surgery evaluated. Very poor surgical candidate this time. EGD 08/25 revealed esophageal nipple. Clots noted within the gastric contents without active bleeding. Recommended CTA rule out aorto esophageal fistula however cannot perform due to elevated creatinine. Hemoglobin appears stable. Gilles if continues upper GI bleed Continue NG tube to LIWS. Renal/: Acute kidney injury History of bladder outlet obstruction IV hydration, strict intake output, monitor and replete electro lites, follow BUN creatinine. Currently holding Flomax 0.4 mg daily No hydronephrosis on CT abdomen/pelvis Negative urine eosinophils. ID: UTI Sepsis Fungemia Repeat blood and sputum cultures, UA and urine cultures have indicated. Appreciate ID consult with worsening leukocytosis and septic shock Empiric antibiotic coverage with IV vancomycin and Zosyn to be continued. IV Diflucan started by GI for Ashley esophagitis. Started on IV micafungin 08/26 secondary to yeast in blood. Pertinent cultures 08/28 - blood from central line - pending 08/27 -arterial line blood - pending 08/26 - sputum -Serratia 08/25 - blood cultures 2 -Ashley 08/25 - urine -no growth 08/22 - blood cultures 2 - no growth 08/21 - urine - no growth 08/20 - blood cultures 2 - 1 out of 4 staph epi Endocrine: Chronic prednisone use secondary to COPD SSI for glycemic control as needed. Switch to hydrocortisone 50 mg IV every 12 hourly for stress dose as patient has been on by mouth prednisone. Heme: Acute blood loss anemia History of prostate cancer Leukocytosis Status post 4 units PRBCs ands 2 units FFP on 08/24. Given one unit PRBCs 08/26 Follow CBC and coags. FEN: Hypokalemia Hyperphosphatemia Replace electrolytes as clinically indicated AM labs pending. Last potassium 3 0 MSK: PT/OT evaluate and treat Access - Left IJ CVL day 3 Prophylaxis - GI -Protonix drip - DVT - SCD/pharmacological prophylaxis contraindicated with GI bleed Critical Care: The total critical care time was 35 minutes. Time to perform other separately billable procedures was not included in the critical care time. Discuss with daughter at bedside. Care plan discussed and all questions answered. Jas Persaud MD Aug 28, 2016 12:21
[2016-08-28] MEDS ORDERED: POTASSIUM CHLOR 40 MEQ PREMIX 100 ML IV ONE ×2 (12:30→20:00)
[2016-08-28 12:47] LABS: BLOOD GAS BASE EXCESS -4.2 mmol/L (-2-2); BLOOD GAS CARBOXYHEMOGLOBIN 1.3 % (0-4); BLOOD GAS HCO3 21 mmol/L (22-26); BLOOD GAS METHEMOGLOBIN 1.1 % (0-2); BLOOD GAS PCO2 40 mmHg (38-42); BLOOD GAS PO2 91 mmHg (61-120)
[2016-08-28 12:48] LABS: BLOOD GAS O2 HGB SATURATION 95 % (90-100); BLOOD GAS OXYGEN CONTENT 13.9 Vol % (12.0-20.0); BLOOD GAS TOTAL HGB 10.3 G/DL (12.0-16.0); CRITICAL VALUE NO; DRAW SITE ART LINE; FIO2 50 %; NUMBER OF ARTERIAL PUNCTURES 0; OXYGEN DEVICE VENTILATOR; STAT NO; TEMP CORR TO 98.6; ULNAR PULSE PRESENT; VENT SETTINGS AC/20/500/PEEP8
[2016-08-28] MEDS: DILTIAZEM HCL 30 MG TAB PO SCH ×3 (12:51→22:26)
[2016-08-28] MEDS: MICAFUNGIN INJ 100 MG in SODIUM CHLORIDE 0.9% INJ 100 ML IV SCH (12:51)
[2016-08-28] MEDS: MAGNESIUM SULFATE 1 GM PREMIX 100 ML IV SCH (12:52)
--- NOTE | 2016-08-28 13:43 | RADRPT ---
EXAM DATE/TIME: 08/28/2016 13:08 [place] COMPARISON: CHEST SINGLE AP, August 27, 2016, 2:27. INDICATIONS : Dyspnea MEDICAL HISTORY : Sepsis. Hypertension. Chronic obstructive pulmonary disease. Carcinoma, prostate, pneumonia. SURGICAL HISTORY : Inguinal hernia repair. ENCOUNTER: Subsequent ACUITY: 3 days PAIN SCORE: Non-responsive. LOCATION: chest FINDINGS: Patchy consolidation and small effusions of the lung bases similar to perhaps slightly worse in the i nterim. No pneumothorax. Heart size stable, within normal limits. Endotracheal tube tip is about 4 cm above the michele. Nasogastric tube tip is near or slightly above the GE junction, higher than it was yesterday. CONCLUSION: 1. Bibasilar consolidation and small effusions are slightly worse. 2. Nasogastric pulled back in the interim, tip near the GE junction currently. Lex Lopez MD on August 28, 2016 at 13:39 Board Certified Radiologist. This report was verified electronically.
[2016-08-28] MEDS ORDERED: BUMETANIDE INJ 1 MG/4 ML VIAL IV PUSH ONE (15:15)
--- NOTE | 2016-08-28 16:51 | HHI.GIFU ---
Subjective Remarks Resting in bed. No active bleeding. OGT clamped. No active bleeding. (Ronna Aldrich) Objective Vitals I&O Vital Signs Date Time Temp Pulse Resp B/P Pulse Ox O2 Delivery O2 Flow Rate FiO2 08/28/16 14:15 95 50 08/28/16 14:00 105 08/28/16 12:00 115 08/28/16 12:00 40 08/28/16 12:00 99.1 115 29 144/76 94 08/28/16 10:00 117 08/28/16 08:10 92 40 08/28/16 08:00 40 08/28/16 08:00 99.1 103 20 141/72 94 Automatic Cuff 08/28/16 08:00 117 08/28/16 07:00 96 Mechanical Ventilator 40 08/28/16 06:00 95 08/28/16 05:45 95 40 08/28/16 04:00 40 08/28/16 04:00 97.5 64 28 162/93 92 143/71 08/28/16 04:00 99 08/28/16 03:54 93 40 08/28/16 02:00 72 08/28/16 00:04 93 40 08/28/16 00:00 40 08/28/16 00:00 97.6 89 28 122/76 94 165/79 08/28/16 00:00 89 08/27/16 22:00 79 08/27/16 21:35 98 40 08/27/16 20:00 80 08/27/16 20:00 40 08/27/16 20:00 97.7 78 22 143/73 97 155/86 08/27/16 19:00 97 Mechanical Ventilator 40 08/27/16 18:00 75 I/O 08/27/16 08/27/16 08/27/16 08/28/16 08/28/16 08/28/16 07:00 15:00 23:00 07:00 15:00 23:00 Intake Total 1206 ml 1196 ml 1025 ml 1048 ml 1199 ml Output Total 525 ml 575 ml 650 ml 850 ml 750 ml Balance 681 ml 621 ml 375 ml 198 ml 449 ml IV Total 1206 ml 1196 ml 1025 ml 1048 ml 1199 ml Output Urine Total 425 ml 425 ml 550 ml 750 ml 700 ml Gastric Drainage Total 100 ml 150 ml 100 ml 100 ml 50 ml # Bowel Movements 2 0 0 0 0 Laboratory Laboratory Tests Test 08/27/16 08/28/16 08/28/16 08/28/16 21:15 05:00 12:30 16:05 White Blood Count 34.3 34.3 Red Blood Count 3.03 3.11 Hemoglobin 9.1 9.3 Hematocrit 26.8 27.4 Mean Corpuscular Volume 88.3 88.1 Mean Corpuscular Hemoglobin 30.0 30.0 Mean Corpuscular Hemoglobin 34.0 34.0 Concent Red Cell Distribution Width 16.4 17.0 Platelet Count 113 118 Mean Platelet Volume 8.3 7.9 Sodium Level 144 145 Potassium Level 2.9 3.0 3.4 Chloride Level 107 110 Carbon Dioxide Level 25.1 23.0 Anion Gap 12 12 Blood Urea Nitrogen 76 72 Creatinine 2.34 2.16 Estimat Glomerular Filtration 28 30 Rate Random Glucose 128 134 Calcium Level 7.9 8.1 Neutrophils (%) (Auto) 95.9 Lymphocytes (%) (Auto) 1.7 Monocytes (%) (Auto) 2.1 Eosinophils (%) (Auto) 0.1 Basophils (%) (Auto) 0.2 Neutrophils # (Auto) 32.9 Lymphocytes # (Auto) 0.6 Monocytes # (Auto) 0.7 Eosinophils # (Auto) 0.0 Basophils # (Auto) 0.1 CBC Comment AUTO DIFF Differential Total Cells 100 Counted Neutrophils % (Manual) 84 Band Neutrophils % 8 Monocytes % 5 Neutrophils # (Manual) 32.6 Metamyelocytes 1 Myelocytes 2 Differential Comment FINAL DIFF MANUAL Platelet Estimate LOW Platelet Morphology Comment NORMAL Keratocytes OCC Phosphorus Level 3.4 Magnesium Level 1.9 Total Bilirubin 0.3 Aspartate Amino Transf 23 (AST/SGOT) Alanine Aminotransferase 39 (ALT/SGPT) Alkaline Phosphatase 106 Total Protein 4.9 Albumin 1.4 Random Vancomycin Level 19.6 Blood Gas Puncture Site ART LINE Blood Gas Patient Temperature 98.6 Blood Gas HCO3 21 Blood Gas Base Excess -4.2 Blood Gas Oxygen Saturation 95 Arterial Blood pH 7.33 Arterial Blood Partial 40 Pressure CO2 Arterial Blood Partial 91 Pressure O2 Arterial Blood Oxygen Content 13.9 Arterial Blood 1.3 Carboxyhemoglobin Arterial Blood Methemoglobin 1.1 Blood Gas Hemoglobin 10.3 Oxygen Delivery Device VENTILATOR Blood Gas Ventilator Setting AC/20/500/PEEP8 Blood Gas Inspired Oxygen 50 Date/Time Procedure Status Source Growth 08/27/16 10:30 Aerobic Blood Culture - Preliminary Resulted Blood Line NO GROWTH IN 1 DAY 08/27/16 10:30 Anaerobic Blood Culture - Preliminary Resulted Blood Line NO GROWTH IN 1 DAY 08/26/16 14:40 Gram Stain - Final Complete Sputum Endotracheal 08/26/16 14:40 Sputum Culture - Final Complete Serratia Marcescens 08/25/16 18:00 Urine Culture - Final Complete Urine Catheterized Urine NO GROWTH IN 48 HOURS. Imaging Last Impressions Chest X-Ray 08/28/16 0000 Signed Impressions: Service Date/Time: Sunday, August 28, 2016 13:08 - CONCLUSION: 1. Bibasilar consolidation and small effusions are slightly worse. 2. Nasogastric pulled back in the interim, tip near the GE junction currently. Lex Lopez MD Brain MRI 08/27/16 0000 Signed Impressions: Service Date/Time: August 15:13 - CONCLUSION: No evidence of acute infarct, hemorrhage, mass or edema. No findings to suggest significant anoxic injury. Kit Power MD Renal Ultrasound 08/25/16 0000 Signed Impressions: Service Date/Time: Wednesday, August 24, 2016 21:53 - CONCLUSION: 1. There is no hydronephrosis. Both kidneys demonstrate mild increased echotexture of the parenchyma suggesting medical renal disease. 2. Trace perihepatic free fluid and bilateral pleural effusions. Lex Malik MD Chest CT 08/25/16 0000 Signed Impressions: Service Date/Time: Thursday, August 25, 2016 21:20 - CONCLUSION: 1. Bilateral pneumonia and aspiration would be in the differential. There is dependent consolidation/atelectasis and small effusions of the bases as well. 2. Upper limits of normal to mildly enlarged mediastinal lymph nodes, most likely reactive. 3. Coronary artery calcification. 4. Right rib fractures, including acute fractures laterally of the third, fourth and fifth. There are old, healed fractures anteriorly of the right second and third ribs.. Lex Lopez MD Abdomen/Pelvis CT 08/25/16 0000 Signed Impressions: Service Date/Time: Thursday, August 25, 2016 20:20 - CONCLUSION: 1. Ventral hernia containing small bowel and with associated small bowel obstruction. The defect is broad; I believe the obstruction is probably related to scarring and/or adhesions within the hernia sac. I don't see a mass. 2. Distended stomach despite NG tube present. 3. Severe aortoiliac atherosclerosis. No aneurysm. Lex Lopez MD Abdomen X-Ray 08/24/16 0000 Signed Impressions: Service Date/Time: Wednesday, August 24, 2016 17:19 - CONCLUSION: 1. Small bowel dilatation which reflect ileus or obstruction. Followup examination is recommended if clinically indicated. Gareth Escalante MD Physical Exam HEENT: Normocephalic; atraumatic; no jaundice CHEST: Resp even. diminished. OETT to vent CARDIAC: RRR ABDOMEN: Soft, nondistended, no hepatosplenomegaly; bowel sounds are present in all four quadrants. Large ventral hernia reducible. OGT clamped. + BM SKIN: Skin cool to touch, dry HOT KNIFE FOXING CUTTER: Unresponsive (Ronna Aldrich) Assessment and Plan Plan ASSESSMENT: - Massive GIB with older appearing dark maroon gastric secretions. Pt is s/p CODE BLUE, vomiting large amount of dark maroon secretions on 08/24 and HH dropped to 5.4/16.7. According to the chart , he has a hx of perforated gastric ulcer. Recent EGD (08/10/16)---> mild gastritis, nodules in the EG junction, moderate esophagitis, normal endoscopy otherwise, retroflexed views revealed no abnormalities. Pathology revealed mild active chronic gastritis, nodule GE junction with gastric mucosa with mild chronic inflammation of the lamina propria and foveolar hyperplasia, acutely inflamed squamous mucosa and detached fragments of acute inflammatory exudate multiple budding yeast and pseudohyphae are present in exudate, acutely ulcerated mucosa of distal esophagus with numerous budding yeast and pseudohyphae invading tissue, consistent with mary kay esophagitis. Colonoscopy (08/11/16) with polypectomy and ablation of polyp in ascending colon with hot snare. Ascending colon with markedly cauterized colonic mucosa with features suggestive of hyperplastic polyp. S/P EGD (08/26/16)-----> Proximal esophageal lesion possibly vascular in nature , Incomplete evaluation of the stomach, Deformed pylorus. S/P CT chest (08/25/16)-----> 1. Bilateral pneumonia and aspiration would be in the differential. There is dependent consolidation/atelectasis and small effusions of the bases as well. 2. Upper limits of normal to mildly enlarged mediastinal lymph nodes, most likely reactive. 3. Coronary artery calcification. 4. Right rib fractures, including acute fractures laterally of the third, fourth and fifth. There are old, healed fractures anteriorly of the right second and third ribs. At this time, he does not appear to be having active bleeding. Okay to start TF. Possible EGD next week. Protonix Gtt. Micafungin. Not having active GI bleeding at this time. - Anemia secondary acute blood loss. S/P 5 units PRBC, 2 units FFP. 9.09/14.4. - Ileus vs. Bowel obstruction. Abdomen X-Ray (08/24/16)---> 1. Small bowel dilatation which reflect ileus or obstruction. Followup examination is recommended if clinically indicated. Abdomen/Pelvis CT (08/25/16)----> 1. Ventral hernia containing small bowel and with associated small bowel obstruction. The defect is broad; I believe the obstruction is probably related to scarring and/or adhesions within the hernia sac. I don't see a mass. 2. Distended stomach despite NG tube present. 3. Severe aortoiliac atherosclerosis. No aneurysm. GS following, known to Dr. Roberts. GS following. Abdominal distention much improved, soft, nondistended. Large ventral hernia- reducible. Multiple large loose/liquid bowel movements. Okay with GS to start feedings. - Recent mary kay esophagitis. Diflucan, Micafungin, Protonix gtt. - S/P CODE BLUE (08/24). Pt with ROSC after 15 MN. Going for MRI brain today. - Acute respiratory failure with COPD and suspected HCAP. Vent, Nebs, Abx per CCM - Large Ventral hernia, reducible. per Dr. Roberts - Sepsis, Severe leukocytosis, improving. WBC 34.3. Bx growing yeast. ID following. Abx Vancomycin, Diflucan, Micafungin, PLAN: - Okay to start Jevity 1.5 at 20cc/hr - Disbursing Officer evaluation for TF recommendations. - If nausea/vomiting/distention with TF, hold TF - Cont. Protonix Gtt - Cont. Micafungin per ID recommendations - Monitor HH - Transfuse as necessary - Supportive care - Monitor labs - If any active bleeding, then one should contemplate a Gilles tube placement and possible angiography. - Possible EGD with possible therapy to this lesion in the proximal esophagus on Wednesday. - Further recommendations to follow based on results of above - PT seen and examined by Dr. Calderon and myself and this note is written on his behalf (Ronna Aldrich) Physician Comments Seen and examined with CONTINUING EDUCATION SPECIALIST< no bleeding. Possible egd next week. TF as tolerated. (Ana Calderon MD) Ronna Aldrich Aug 28, 2016 16:51 Ana Calderon MD Aug 29, 2016 13:04
--- NOTE | 2016-08-28 17:01 | HHI.IDPN ---
Subjective Subjective Remarks ID Xcover for . Delayed entry patient seen at 1 pm ~ is a 71 y/o CM with COPD and oxygen dependent, Ashley esophagitis, prior h/o pneumonia. According to the since the patient was discharged he continued to have nausea and vomiting. He has not had any bowel movement, and she thinks in the last 3 weeks. Patient started having more weakness, and was getting more short of breath, so the patient presented back to the hospital and was admitted August 20. He was admitted as a COPD exacerbation and pneumonia. He was put on empiric antibiotics. Patient had in hospital cardiorespiratory arrest. He was successfully resuscitated, and intubated. Patient had an A- line in arm, CL in groin which was changed on 08/27/16. 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 Patient continues to have elevated WBC, and is being treated for sepsis secondary to aspiration PNA, Fungemia likely line related (groin line likely now DCed). Notes reviewed Discussed with RN Patient is afebrile Sedated on the vent Off pressors since . Arterial line planned on being DCed today. CT abdomen and pelvis with findings of small bowel obstruction within the large hernia Chest x-ray with stable infiltrates Blood culture and urine culture pending Antibiotics Zosyn Vancomycin IV Micafungin Lines L I J central line Past Medical History Hypertension COPD O2 dependent prostate cancer Bladder outlet obstruction Hyperlipidemia Past Surgical History Ventral hernia Appendectomy Perforated gastric ulcer surgery Cataract Upper and lower endoscopy Allergies: Coded Allergies: *MDRO Multi-Drug Resistant Organism (Verified Adverse Reaction, Unknown, ) MRSA (abdominal wound) 2015 per 04/10/2015 H&P MRSA PCR Screen #1 NEGATIVE - 08/21/16 Objective . Vital Signs Date Time Temp Pulse Resp B/P Pulse Ox O2 Delivery O2 Flow Rate FiO2 08/28/16 14:15 95 50 08/28/16 14:00 105 08/28/16 12:00 115 08/28/16 12:00 40 08/28/16 12:00 99.1 115 29 144/76 94 08/28/16 10:00 117 08/28/16 08:10 92 40 08/28/16 08:00 40 08/28/16 08:00 99.1 103 20 141/72 94 Automatic Cuff 08/28/16 08:00 117 08/28/16 07:00 96 Mechanical Ventilator 40 08/28/16 06:00 95 08/28/16 05:45 95 40 08/28/16 04:00 40 08/28/16 04:00 97.5 64 28 162/93 92 143/71 08/28/16 04:00 99 08/28/16 03:54 93 40 08/28/16 02:00 72 08/28/16 00:04 93 40 08/28/16 00:00 40 08/28/16 00:00 97.6 89 28 122/76 94 165/79 08/28/16 00:00 89 08/27/16 22:00 79 08/27/16 21:35 98 40 08/27/16 20:00 80 08/27/16 20:00 40 08/27/16 20:00 97.7 78 22 143/73 97 155/86 08/27/16 19:00 97 Mechanical Ventilator 40 08/27/16 18:00 75 08/27/16 08/27/16 08/28/16 15:00 23:00 07:00 Intake Total 1196 ml 1025 ml 1048 ml Output Total 575 ml 650 ml 850 ml Balance 621 ml 375 ml 198 ml IV Total 1196 ml 1025 ml 1048 ml Output Urine Total 425 ml 550 ml 750 ml Gastric Drainage Total 150 ml 100 ml 100 ml # Bowel Movements 0 0 0 . Laboratory Tests Test 08/26/16 08/27/16 08/27/16 08/28/16 23:00 06:00 21:15 05:00 Hemoglobin 9.5 GM/DL 9.5 GM/DL 9.1 GM/DL 9.3 GM/DL Hematocrit 28.3 % 28.4 % 26.8 % 27.4 % White Blood Count 42.9 TH/MM3 34.3 TH/MM3 34.3 TH/MM3 Red Blood Count 3.24 MIL/MM3 3.03 MIL/MM3 3.11 MIL/MM3 Mean Corpuscular Volume 87.8 FL 88.3 FL 88.1 FL Mean Corpuscular Hemoglobin 29.4 PG 30.0 PG 30.0 PG Mean Corpuscular Hemoglobin 33.5 % 34.0 % 34.0 % Concent Red Cell Distribution Width 16.6 % 16.4 % 17.0 % Platelet Count 129 TH/MM3 113 TH/MM3 118 TH/MM3 Mean Platelet Volume 8.0 FL 8.3 FL 7.9 FL Neutrophils (%) (Auto) 96.2 % 95.9 % Lymphocytes (%) (Auto) 1.6 % 1.7 % Monocytes (%) (Auto) 2.0 % 2.1 % Eosinophils (%) (Auto) 0.0 % 0.1 % Basophils (%) (Auto) 0.2 % 0.2 % Neutrophils # (Auto) 41.2 TH/MM3 32.9 TH/MM3 Lymphocytes # (Auto) 0.7 TH/MM3 0.6 TH/MM3 Monocytes # (Auto) 0.9 TH/MM3 0.7 TH/MM3 Eosinophils # (Auto) 0.0 TH/MM3 0.0 TH/MM3 Basophils # (Auto) 0.1 TH/MM3 0.1 TH/MM3 CBC Comment AUTO DIFF AUTO DIFF Differential Total Cells 100 100 Counted Neutrophils % (Manual) 75 % 84 % Band Neutrophils % 18 % 8 % Lymphocytes % 1 % Monocytes % 1 % 5 % Neutrophils # (Manual) 42.0 TH/MM3 32.6 TH/MM3 Metamyelocytes 2 % 1 % Myelocytes 3 % 2 % Differential Comment FINAL DIFF FINAL DIFF MANUAL MANUAL Toxic Granulation 1+ Toxic Vacuolation PRESENT Platelet Estimate LOW LOW Platelet Morphology Comment NORMAL NORMAL Peter Cells 1+ Crenated Cell Acanthocytes 1+ Keratocytes OCC Laboratory Tests Test 08/26/16 08/27/16 08/27/16 08/28/16 23:00 06:00 21:15 05:00 Potassium Level 3.2 MEQ/L 2.9 MEQ/L 2.9 MEQ/L 3.0 MEQ/L Phosphorus Level 5.0 MG/DL 5.0 MG/DL 3.4 MG/DL Sodium Level 139 MEQ/L 144 MEQ/L 145 MEQ/L Chloride Level 103 MEQ/L 107 MEQ/L 110 MEQ/L Carbon Dioxide Level 22.8 MEQ/L 25.1 MEQ/L 23.0 MEQ/L Anion Gap 13 MEQ/L 12 MEQ/L 12 MEQ/L Blood Urea Nitrogen 79 MG/DL 76 MG/DL 72 MG/DL Creatinine 2.52 MG/DL 2.34 MG/DL 2.16 MG/DL Estimat Glomerular Filtration 25 ML/MIN 28 ML/MIN 30 ML/MIN Rate Random Glucose 157 MG/DL 128 MG/DL 134 MG/DL Lactic Acid Level 0.8 mmol/L Calcium Level 7.8 MG/DL 7.9 MG/DL 8.1 MG/DL Magnesium Level 1.7 MG/DL 1.9 MG/DL Total Bilirubin 0.4 MG/DL 0.3 MG/DL Aspartate Amino Transf 36 U/L 23 U/L (AST/SGOT) Alanine Aminotransferase 47 U/L 39 U/L (ALT/SGPT) Alkaline Phosphatase 110 U/L 106 U/L Total Protein 4.9 GM/DL 4.9 GM/DL Albumin 1.5 GM/DL 1.4 GM/DL Test 08/28/16 16:05 Potassium Level 3.4 MEQ/L Microbiology Date/Time Procedure Status Source Growth 08/25/16 18:00 Urine Culture - Final Complete Urine Catheterized Urine NO GROWTH IN 48 HOURS. 08/26/16 14:40 Gram Stain - Final Complete Sputum Endotracheal 08/26/16 14:40 Sputum Culture - Final Complete Serratia Marcescens 08/27/16 10:30 Aerobic Blood Culture - Preliminary Resulted Blood Arterial Line NO GROWTH IN 1 DAY 08/27/16 10:30 Anaerobic Blood Culture - Preliminary Resulted Blood Arterial Line NO GROWTH IN 1 DAY 08/27/16 10:30 Aerobic Blood Culture - Preliminary Resulted Blood Line NO GROWTH IN 1 DAY 08/27/16 10:30 Anaerobic Blood Culture - Preliminary Resulted Blood Line NO GROWTH IN 1 DAY Imaging Chest X-Ray 08/27/16 0600 Signed Impressions: Service Date/Time: August 02:27 - CONCLUSION: 1. Patchy bilateral airspace disease with improving aeration/decreasing effusions in the bases bilaterally. 2. Stable position of life support tubes. Con Valdes MD Chest X-Ray 08/26/16 0754 Signed Impressions: Service Date/Time: Friday, August 26, 2016 08:14 - CONCLUSION: Left IJ central line distal tip in the SVC. No pneumothorax is visualized. There is a stable appearance the lungs with bilateral airspace consolidation. Lex Malik MD Chest X-Ray 08/26/16 0600 Signed Impressions: Service Date/Time: Friday, August 26, 2016 04:01 - CONCLUSION: 1. Worsening bibasilar effusions/atelectasis with diffuse interstitial edema, all characteristic of CHF. 2. Endotracheal tube remains appropriately positioned above the michele Con Valdes MD Chest X-Ray 08/26/16 0754 Signed Impressions: Service Date/Time: Friday, August 26, 2016 08:14 - CONCLUSION: Left IJ central line distal tip in the SVC. No pneumothorax is visualized. There is a stable appearance the lungs with bilateral airspace consolidation. Lex Malik MD Renal Ultrasound 08/25/16 0000 Signed Impressions: Service Date/Time: Wednesday, August 24, 2016 21:53 - CONCLUSION: 1. There is no hydronephrosis. Both kidneys demonstrate mild increased echotexture of the parenchyma suggesting medical renal disease. 2. Trace perihepatic free fluid and bilateral pleural effusions. Lex Malik MD Chest CT 08/25/16 0000 Signed Impressions: Service Date/Time: Thursday, August 25, 2016 21:20 - CONCLUSION: 1. Bilateral pneumonia and aspiration would be in the differential. There is dependent consolidation/atelectasis and small effusions of the bases as well. 2. Upper limits of normal to mildly enlarged mediastinal lymph nodes, most likely reactive. 3. Coronary artery calcification. 4. Right rib fractures, including acute fractures laterally of the third, fourth and fifth. There are old, healed fractures anteriorly of the right second and third ribs.. Lex Lopez MD Abdomen/Pelvis CT 08/25/16 0000 Signed Impressions: Service Date/Time: Thursday, August 25, 2016 20:20 - CONCLUSION: 1. Ventral hernia containing small bowel and with associated small bowel obstruction. The defect is broad; I believe the obstruction is probably related to scarring and/or adhesions within the hernia sac. I don't see a mass. 2. Distended stomach despite NG tube present. 3. Severe aortoiliac atherosclerosis. No aneurysm. Lex Lopez MD Abdomen X-Ray 08/24/16 0000 Signed Impressions: Service Date/Time: Wednesday, August 24, 2016 17:19 - CONCLUSION: 1. Small bowel dilatation which reflect ileus or obstruction. Followup examination is recommended if clinically indicated. Gareth Escalante MD Physical Exam GENERAL: Sedated and intubated, not in distress SKIN: Warm and dry. No generalized rash or ecchymosis. HEAD: Atraumatic. Normocephalic. No temporal or scalp tenderness. EYES: Pale conjunctivae, no petechia or hemorrhage. Pupils equal round and reactive. No scleral icterus. No injection or drainage. ENT: Nose without bleeding, purulent drainage. Has endotracheal tube in the mouth. NGT in place NECK: Trachea midline. No JVD or lymphadenopathy. Supple. LIJ TLC looks ok CARDIOVASCULAR: Regular rate and rhythm without murmurs, gallops, or rubs. RESPIRATORY: Decreased breath sounds throughout both lung garcia. GASTROINTESTINAL: Abdomen soft, with protuberance in middle, this is an incisional hernia. No reaction to deep palpation. Has midline scar. Bowel sounds are hypoactive, no guarding. MUSCULOSKELETAL: Extremities without clubbing, cyanosis. Developing ne pedal edema. NEUROLOGICAL: Sedated PSYCH: Unable to assess LINE: LIJ TLC no evidence of infection. Assessment & Plan Remarks IMPRESSION Sepsis present on admission. Septic Shock with MODS. Central line associated blood stream infection (CLABSI) related fungemia ( likely groin line) now discontinued. Will DC arterial line today. Aspiration Pneumonia: Serratia marcescens. Status post cardiorespiratory arrest, likely aspirated Findings SBO within th hernia on CT A/P Acute respiratory failure on vent. GI bleed Leukocytosis, worsening, most likely multifactorial, fungemia, due to acute GI bleed as well as aspiration and arrest COPD, oxygen dependent Previous GI bleed with workup showing gastritis, Ashley esophagitis, and polyps Large incisional ventral hernia Bladder outlet obstruction, currently has a Hammond Renal insufficiency RECOMMENDATION Continue Micafungin IV (C.glabrata fungemia) DC Vanco IV no MRSA isolated so far in sputum or blood. Continue Zosyn IV (covers for aspiration PNA) Follow cultures Follow CBC, CMP. Monitor progress agree with DC arterial line. 2D ECHO. Opthalm consult next week to r/o fungal endopthalmitis. D/W RN. Ninoska Espinoza MD Aug 28, 2016 17:01
[2016-08-28] MEDS ORDERED: methylPREDNISolone SOD SUCC 125 MG/2 ML VIAL IV PUSH ONE (20:00)
[2016-08-28] MEDS ORDERED: HYDROCORTISONE SOD SUCCINATE 100 MG VIAL IV PUSH SCH (21:00)
--- NOTE | 2016-08-28 23:48 | RADRPT ---
EXAM DATE/TIME: 08/28/2016 22:19 [facility] COMPARISON: US LEG BILATERAL VENOUS DOPPLER, August 04, 2016, 8:31. INDICATIONS : Bilateral leg swelling. MEDICAL HISTORY : Gastroesophageal reflux disease. Hypercholesterolemia. Chronic obstructive pulmonary disease. Congest patricia heart failure. Hypertension. Emphysema. Ulcer. Renal disease. Prostate cancer. Radiation. Rheumat oid arthritis. Diabetes. Measles. Shingles. Post traumatic stress disorder. SURGICAL HISTORY : Appendectomy. Left knee surgery. Bilateral cataract removal. Hernia repair. Multiple abdominal surger ies. ENCOUNTER: Initial ACUITY: 1 day PAIN SCORE: Non-responsive LOCATION: Bilateral legs. TECHNIQUE: Venous ultrasound of the left and right leg was performed from the inguinal ligament to the proximal calf. Real-time, color Doppler and spectral tracing, compression and augmentation techniques were us ed. FINDINGS: RIGHT LEG: There is normal compressibility of the deep venous system from the inguinal region to the proximal ca lf. No echogenic clot is seen in the lumen of the common femoral, femoral, popliteal, and posterior tibial veins. There is a normal response of the venous system to proximal and distal augmentation an d respiration. In the distal thigh, there is a 3.1 x 2.9 cm round anechoic area with through transmi ssion which, on color Doppler, demonstrates a arterial pattern the pulsatile flow within its central lumen which measures 2.0 cm. Suggests possible aneurysm or pseudoaneurysm. LEFT LEG: There is normal compressibility of the deep venous system from the inguinal region to the proximal ca lf. No echogenic clot is seen in the lumen of the common femoral, femoral, popliteal, and posterior tibial veins. There is a normal response of the venous system to proximal and distal augmentation an d respiration. Popliteal cyst measures 8.3 x 4.2 x 2.1 cm, similar in size to prior ultrasound. CONCLUSION: 1. The study is negative for deep venous thrombosis bilateral lower extremity. 2. Distal thigh cystic lesion with arterial pattern of flow within the central lumen suggests possibl e aneurysm or pseudoaneurysm. 3. Stable large left popliteal cyst. Polo Saunders MD on August 28, 2016 at 23:37 Board Certified Radiologist. This report was verified electronically.
[2016-08-28 23:54] LABS: BLOOD GAS BASE EXCESS -2.7 mmol/L (-2-2); BLOOD GAS CARBOXYHEMOGLOBIN 1.4 % (0-4); BLOOD GAS HCO3 21 mmol/L (22-26); BLOOD GAS METHEMOGLOBIN 1.1 % (0-2); BLOOD GAS O2 HGB SATURATION 96 % (90-100); BLOOD GAS OXYGEN CONTENT 13.6 Vol % (12.0-20.0); BLOOD GAS PCO2 35 mmHg (38-42); BLOOD GAS PO2 103 mmHg (61-120); TEMP CORR TO 98.6
[2016-08-28 23:55] LABS: CRITICAL VALUE NO; DRAW SITE RT RADIAL; FIO2 55 %; NUMBER OF ARTERIAL PUNCTURES 1; OXYGEN DEVICE VENTILATOR; STAT NO; ULNAR PULSE PRESENT; VENT SETTINGS AC/550/PEEP5
[2016-08-29] VITALS (20 sets, daily range): BP systolic 146–162; BP diastolic 87–96; PULSE 70–101; RESP 18–27; TEMP 98.3–98.6; O2SAT 97–100
[2016-08-29] MEDS: RESP: ALBUTEROL 2.5 MG/IPRATROPIUM 0.5 MG NEB (SCH) NEB ×6 (00:16→19:50)
[2016-08-29 02:47] LABS: BASOPHIL % 0.2 % (0.0-2.0); HEMATOCRIT 27.3 % (39.0-51.0); LYMPH % 1.3 % (9.0-44.0); LYMPHOCYTE # 0.3 TH/MM3 (1.0-4.8); MEAN CELL VOLUME 88.7 FL (80.0-100.0); MEAN CORPUSCULAR HEMOGLOBIN 29.5 PG (27.0-34.0); MEAN CORPUSCULAR HGB CONC 33.3 % (32.0-36.0); MONO % 1.3 % (0.0-8.0); NEUT % 97.2 % (16.0-70.0); PLATELET COUNT 116 TH/MM3 (150-450); RED BLOOD COUNT 3.08 MIL/MM3 (4.50-5.90); RED CELL DISTRIBUTION WIDTH 16.8 % (11.6-17.2); WHITE BLOOD COUNT 24.6 TH/MM3 (4.0-11.0)
[2016-08-29] MEDS: PIPERACIL-TAZO 3.375 GM PREMIX 50 ML IV SCH ×4 (02:55→20:46)
[2016-08-29 03:01] LABS: HEMO FLAGS AUTO DIFF
[2016-08-29 03:04] LABS: ALT (GPT) 35 U/L (12-78); ANION GAP 10 MEQ/L (5-15); AST (GOT) 23 U/L (15-37); BICARBONATE 24.6 MEQ/L (21.0-32.0); BLOOD UREA NITROGEN 63 MG/DL (7-18); CHLORIDE 113 MEQ/L (98-107); GLOMERULAR FILTRATION RATE 34 ML/MIN (>89); MAGNESIUM 2.1 MG/DL (1.5-2.5); POTASSIUM 3.2 MEQ/L (3.5-5.1); SODIUM (NA) 148 MEQ/L (136-145)
[2016-08-29 03:07] LABS: ALKALINE PHOSPHATASE 146 U/L (45-117); TOTAL BILIRUBIN ADULT 0.5 MG/DL (0.2-1.0)
[2016-08-29 03:35] LABS: BANDS 9 % (0-6); METAMYELOCYTES 4 % (0-1); MYELOCYTES 1 % (0-0); NEUTROPHIL # MANUAL DIFF 23.4 TH/MM3 (1.8-7.7); POLYS (SEG NEUTROPHILS) 81 % (16-70); WBC DIFF SAMPLE 100
[2016-08-29 03:36] LABS: PLATELET ESTIMATE SMEAR LOW (NORMAL); PLATELET MORPHOLOGY NORMAL (NORMAL); SCAN/DIFF FINAL DIFF MANUAL
[2016-08-29] MEDS: methylPREDNISolone SOD SUCC 40 MG/1 ML VIAL IV PUSH SCH ×3 (03:43→20:16)
[2016-08-29] MEDS: PANTOPRAZOLE INJ 80 MG in SODIUM CHLORIDE 0.9% INJ 100 ML IV SCH ×2 (05:25→16:56)
[2016-08-29] MEDS: RESP: BUDESONIDE 0.5 MG/2 ML NEB NEB SCH ×2 (07:42→19:50)
[2016-08-29] MEDS: SODIUM CHLORIDE 0.9% FLUSH 5 ML FLUSH IVF SCH (07:50)
[2016-08-29] MEDS: MULTIVITAMIN TAB PO SCH (08:08)
[2016-08-29] MEDS: DILTIAZEM HCL 30 MG TAB PO SCH ×4 (08:08→20:45)
--- NOTE | 2016-08-29 10:58 | RADRPT ---
EXAM DATE/TIME: 08/29/2016 10:20 [facility] COMPARISON: CHEST SINGLE AP, August 28, 2016, 13:08. INDICATIONS : Shortness of breath for two weeks with pneumonia and a UTI. DOSE: 8.7 mCi Tc99m MAA IV 1.3 mCi Tc99m DTPA aerosol MEDICAL HISTORY : Chronic obstructive pulmonary disease. Carcinoma, prostate. Hypertension. SURGICAL HISTORY : Appendectomy. ENCOUNTER: Initial ACUITY: 2 weeks PAIN SCALE: 0/10 LOCATION: Bilateral chest TECHNIQUE: Following five minutes of tidal breathing of DTPA aerosol, planar images of the lungs were performed in eight projections. The patient was then injected with MAA, and eight-view perfusion scan was perf ormed. FINDINGS: There is a homogeneous pattern of aerosol delivery to the periphery of both lungs. No focal ventilat ory defects are seen. The perfusion lung scan demonstrates diminished overall uptake in the lungs. No segmental or subsegm ental defects are seen. CONCLUSION: Low probability for pulmonary embolus. Lex Lopez MD on August 29, 2016 at 10:56 Board Certified Radiologist. This report was verified electronically.
[2016-08-29] MEDS: MICAFUNGIN INJ 100 MG in SODIUM CHLORIDE 0.9% INJ 100 ML IV SCH (11:41)
--- NOTE | 2016-08-29 12:49 | HHI.GIFU ---
GI Follow-up Note Consult Follow-up Subjective: Patient laying in bed comfortably, no new complaints, no bleeding, intubated Objective: PHYSICAL EXAMINATION: Vitals signs stable No fever HEENT: Pupils round and reactive to light; normocephalic; atraumatic; no jaundice. Throat is clear. NECK: Neck is supple, no JVD, no lymphadenopathy. CHEST: Chest is clear to auscultation and percussion. CARDIAC: Regular rate and rhythm with no murmur gallop or rubs. ABDOMEN: Soft, nondistended, nontender; no hepatosplenomegaly; bowel sounds are present in all four quadrants. EXTREMITIES: No clubbing, cyanosis, or edema. SKIN: Normal; no rash; no jaundice. 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 Available Data (labs, X- Rays, Procedues) : Last Impressions Lower Extremity Ultrasound 08/28/16 Signed Impressions: Service Date/Time: Sunday, August 28, 2016 22:19 - CONCLUSION: 1. The study is negative for deep venous thrombosis bilateral lower extremity. 2. Distal thigh cystic lesion with arterial pattern of flow within the central lumen suggests possible aneurysm or pseudoaneurysm. 3. Stable large left popliteal cyst. Polo Saunders MD Chest X-Ray 08/28/16 Signed Impressions: Service Date/Time: Sunday, August 28, 2016 13:08 - CONCLUSION: 1. Bibasilar consolidation and small effusions are slightly worse. 2. Nasogastric pulled back in the interim, tip near the GE junction currently. Lex Lopez MD Brain MRI 08/27/16 Signed Impressions: Service Date/Time: August 15:13 - CONCLUSION: No evidence of acute infarct, hemorrhage, mass or edema. No findings to suggest significant anoxic injury. Kit Power MD Renal Ultrasound 08/25/16 Signed Impressions: Service Date/Time: Wednesday, August 24, 2016 21:53 - CONCLUSION: 1. There is no hydronephrosis. Both kidneys demonstrate mild increased echotexture of the parenchyma suggesting medical renal disease. 2. Trace perihepatic free fluid and bilateral pleural effusions. Lex Malik MD Chest CT 08/25/16 Signed Impressions: Service Date/Time: Thursday, August 25, 2016 21:20 - CONCLUSION: 1. Bilateral pneumonia and aspiration would be in the differential. There is dependent consolidation/atelectasis and small effusions of the bases as well. 2. Upper limits of normal to mildly enlarged mediastinal lymph nodes, most likely reactive. 3. Coronary artery calcification. 4. Right rib fractures, including acute fractures laterally of the third, fourth and fifth. There are old, healed fractures anteriorly of the right second and third ribs.. Lex Lopez MD Abdomen/Pelvis CT 08/25/16 0000 Signed Impressions: Service Date/Time: Thursday, August 25, 2016 20:20 - CONCLUSION: 1. Ventral hernia containing small bowel and with associated small bowel obstruction. The defect is broad; I believe the obstruction is probably related to scarring and/or adhesions within the hernia sac. I don't see a mass. 2. Distended stomach despite NG tube present. 3. Severe aortoiliac atherosclerosis. No aneurysm. Lex Lopez MD Abdomen X-Ray 08/24/16 0000 Signed Impressions: Service Date/Time: Wednesday, August 24, 2016 17:19 - CONCLUSION: 1. Small bowel dilatation which reflect ileus or obstruction. Followup examination is recommended if clinically indicated. Gareth Escalante MD Laboratory Tests Test 08/27/16 08/28/16 08/28/16 08/28/16 21:15 05:00 12:30 16:05 White Blood Count 34.3 TH/MM3 34.3 TH/MM3 Red Blood Count 3.03 MIL/MM3 3.11 MIL/MM3 Hemoglobin 9.1 GM/DL 9.3 GM/DL Hematocrit 26.8 % 27.4 % Mean Corpuscular Volume 88.3 FL 88.1 FL Mean Corpuscular Hemoglobin 30.0 PG 30.0 PG Mean Corpuscular Hemoglobin 34.0 % 34.0 % Concent Red Cell Distribution Width 16.4 % 17.0 % Platelet Count 113 TH/MM3 118 TH/MM3 Mean Platelet Volume 8.3 FL 7.9 FL Sodium Level 144 MEQ/L 145 MEQ/L Potassium Level 2.9 MEQ/L 3.0 MEQ/L 3.4 MEQ/L Chloride Level 107 MEQ/L 110 MEQ/L Carbon Dioxide Level 25.1 MEQ/L 23.0 MEQ/L Anion Gap 12 MEQ/L 12 MEQ/L Blood Urea Nitrogen 76 MG/DL 72 MG/DL Creatinine 2.34 MG/DL 2.16 MG/DL Estimat Glomerular Filtration 28 ML/MIN 30 ML/MIN Rate Random Glucose 128 MG/DL 134 MG/DL Calcium Level 7.9 MG/DL 8.1 MG/DL Neutrophils (%) (Auto) 95.9 % Lymphocytes (%) (Auto) 1.7 % Monocytes (%) (Auto) 2.1 % Eosinophils (%) (Auto) 0.1 % Basophils (%) (Auto) 0.2 % Neutrophils # (Auto) 32.9 TH/MM3 Lymphocytes # (Auto) 0.6 TH/MM3 Monocytes # (Auto) 0.7 TH/MM3 Eosinophils # (Auto) 0.0 TH/MM3 Basophils # (Auto) 0.1 TH/MM3 CBC Comment AUTO DIFF Differential Total Cells 100 Counted Neutrophils % (Manual) 84 % Band Neutrophils % 8 % Monocytes % 5 % Neutrophils # (Manual) 32.6 TH/MM3 Metamyelocytes 1 % Myelocytes 2 % Differential Comment FINAL DIFF MANUAL Platelet Estimate LOW Platelet Morphology Comment NORMAL Keratocytes OCC Phosphorus Level 3.4 MG/DL Magnesium Level 1.9 MG/DL Total Bilirubin 0.3 MG/DL Aspartate Amino Transf 23 U/L (AST/SGOT) Alanine Aminotransferase 39 U/L (ALT/SGPT) Alkaline Phosphatase 106 U/L Total Protein 4.9 GM/DL Albumin 1.4 GM/DL Random Vancomycin Level 19.6 COMMENT Blood Gas Puncture Site ART LINE Blood Gas Patient Temperature 98.6 Blood Gas HCO3 21 mmol/L Blood Gas Base Excess -4.2 mmol/L Blood Gas Oxygen Saturation 95 % Arterial Blood pH 7.33 Arterial Blood Partial 40 mmHg Pressure CO2 Arterial Blood Partial 91 mmHg Pressure O2 Arterial Blood Oxygen Content 13.9 Vol % Arterial Blood 1.3 % Carboxyhemoglobin Arterial Blood Methemoglobin 1.1 % Blood Gas Hemoglobin 10.3 G/DL Oxygen Delivery Device VENTILATOR Blood Gas Ventilator Setting AC/20/500/PEEP8 Blood Gas Inspired Oxygen 50 % Test 08/28/16 08/29/16 23:25 02:30 Blood Gas Puncture Site RT RADIAL Blood Gas Patient Temperature 98.6 Blood Gas HCO3 21 mmol/L Blood Gas Base Excess -2.7 mmol/L Blood Gas Oxygen Saturation 96 % Arterial Blood pH 7.40 Arterial Blood Partial 35 mmHg Pressure CO2 Arterial Blood Partial 103 mmHg Pressure O2 Arterial Blood Oxygen Content 13.6 Vol % Arterial Blood 1.4 % Carboxyhemoglobin Arterial Blood Methemoglobin 1.1 % Blood Gas Hemoglobin 10.0 G/DL Oxygen Delivery Device VENTILATOR Blood Gas Ventilator Setting AC/550/PEEP5 Blood Gas Inspired Oxygen 55 % White Blood Count 24.6 TH/MM3 Red Blood Count 3.08 MIL/MM3 Hemoglobin 9.1 GM/DL Hematocrit 27.3 % Mean Corpuscular Volume 88.7 FL Mean Corpuscular Hemoglobin 29.5 PG Mean Corpuscular Hemoglobin 33.3 % Concent Red Cell Distribution Width 16.8 % Platelet Count 116 TH/MM3 Mean Platelet Volume 8.1 FL Neutrophils (%) (Auto) 97.2 % Lymphocytes (%) (Auto) 1.3 % Monocytes (%) (Auto) 1.3 % Eosinophils (%) (Auto) 0.0 % Basophils (%) (Auto) 0.2 % Neutrophils # (Auto) 24.0 TH/MM3 Lymphocytes # (Auto) 0.3 TH/MM3 Monocytes # (Auto) 0.3 TH/MM3 Eosinophils # (Auto) 0.0 TH/MM3 Basophils # (Auto) 0.0 TH/MM3 CBC Comment AUTO DIFF Differential Total Cells 100 Counted Neutrophils % (Manual) 81 % Band Neutrophils % 9 % Lymphocytes % 2 % Monocytes % 3 % Neutrophils # (Manual) 23.4 TH/MM3 Metamyelocytes 4 % Myelocytes 1 % Differential Comment FINAL DIFF MANUAL Platelet Estimate LOW Platelet Morphology Comment NORMAL Sodium Level 148 MEQ/L Potassium Level 3.2 MEQ/L Chloride Level 113 MEQ/L Carbon Dioxide Level 24.6 MEQ/L Anion Gap 10 MEQ/L Blood Urea Nitrogen 63 MG/DL Creatinine 1.97 MG/DL Estimat Glomerular Filtration 34 ML/MIN Rate Random Glucose 192 MG/DL Calcium Level 8.2 MG/DL Phosphorus Level 2.6 MG/DL Magnesium Level 2.1 MG/DL Total Bilirubin 0.5 MG/DL Aspartate Amino Transf 23 U/L (AST/SGOT) Alanine Aminotransferase 35 U/L (ALT/SGPT) Alkaline Phosphatase 146 U/L Troponin I 0.12 NG/ML Total Protein 5.2 GM/DL Albumin 1.6 GM/DL Allergies Coded Allergies Type Severity Reaction Last Updated Verified *MDRO Multi-Drug Resistant Organism Adverse Reaction Unknown 08/24/16 Yes Active Scripts Medications Dose Route/Sig Days Date Category Dose Instructions Prednisone 5 Mg Tab 5 Mg PO DIRECTED 6 08/11/16 Rx 20 mg po daily for two days then 10 mg po daily for two days then 5 mg po daily for two days then stop. Cardizem CD 24 HR (Diltiazem CD 24 HR) 120 Mg Caper 120 Mg PO DAILY 08/10/16 Rx Ceftin (Cefuroxime Axetil) 500 Mg Tab 500 Mg PO Q12HR 5 08/10/16 Rx Symbicort Inh (Budesonide/Formoterol Fumarate) 160-4.5 Mcg/Act Aero 2 Puff INH BID 08/10/16 Rx Multi Vitamin (Multiple Vitamin) 1 Tab Tab 1 Tab PO DAILY 08/04/16 Reported Flomax (Tamsulosin HCl) 0.4 Mg Cap 0.4 Mg PO HS 08/04/16 Reported Protonix (Pantoprazole Sodium) 40 Mg Tab 40 Mg PO DAILY 08/04/16 Reported Trazodone (Trazodone HCl) 50 Mg Tab 50-100 Mg PO HS 08/04/16 Reported Mckenna (Hydrocodone-Acetaminophen) 10-325 Mg Tab 1-2 Tab PO Q4H PRN 08/04/16 Reported Duoneb (Ipratropium-Albuterol Neb) 0.5-2.5 Mg/3 Ml Neb 1 Vial NEB QID PRN 08/04/16 Reported Combivent Respimat Inh (Ipratropium-Albuterol Inh) 20-100 Group Home/Act Aero 1 Puff INH Q4HR PRN 08/04/16 Reported ASSESSMENT/PLAN: Seen and examined, no bleeding reported. Monitor H/H , possible egd on wednesday It was a pleasure seeing Ravindra Thomason. Thank you for this consult. Entered by: Ana Llanes MD Aug 29, 2016 12:49
--- NOTE | 2016-08-29 12:52 | HHI.CCPN ---
Subjective Remarks/Hospital Course 08/24: 71 Year-old male with a medical history significant for COPD on home oxygen who was recently admitted with suspected sepsis/H And was initiated on IV antibiotics and steroids. He had recently been evaluated by GI and underwent EGD on 08/10/2016 and was found to have moderate esophagitis, mild gastritis with pathology subsequently showing Ashley esophagitis as well as colonoscopy on 08/11/2016 with polypectomy and ablation of polyp in ascending colon with hot snare. Patient has been dealing with constipation since his admission. Today when he was trying to have a bowel movement he suddenly became less responsive and then had a large emesis which resulted in aspiration and hemodynamic collapse. Patient initially had large volume emesis with dark maroon blood. CODE BLUE cardiac arrest code was activated. On my arrival patient was in bed CPR had been initiated. Significant gastric contents was still being suctioned out of his oral cavity. ACLS protocol was continued. Patient was intubated following vigorous suctioning of gastric contents from oral cavity as well as with placement of NG tube which is hooked up to suction and about 1.5 L of gastric contents being suctioned out which appeared to be dark maroon in color. Patient initially had a pulse when CODE BLUE was called and subsequently went in PEA arrest followed by asystole during ACLS and then V. fib for which he was defibrillated with 200 J 1, CPR/ACLS protocol was continued and patient eventually had return of spontaneous circulation after about 15 minutes of CPR/ACLS. Patient was transferred to [facility] and placed on mechanical ventilation. I emergently placed left femoral central line for central vascular access and he was started on Levophed for pressor support. 2 units of O- 1 crossmatch blood were ordered and transfused stat. He also received 1 L of normal saline bolus following return of spontaneous circulation. Stat labs were ordered. His hemoglobin on ABG done post resuscitation was 5.6. I did order Protonix 80 mg IV stat followed by 8 mg per hour IV infusion. Patient remained encephalopathic though was minimally responsive following transfer to the ICU. GI consult was requested and I spoke with Dr. Zamarripa at bedside on his arrival. History was obtained by reviewing records, discussion with family/ GI as well as nursing staff. According to patient's daughter he has not been doing well for the last few months in terms of his breathing and has been using his home oxygen more often. He gets extremely short of breath even with the least exertion. 08/25: Remains encephalopathic/ sedated, [facility]. Transiently off levophed last night however back to 11 mcg/min currently. Hgb up to 9.4 following 4 units PRBCs transfused last night. 08/26: Tmax 99. Some unresponsive on the ventilator. CT abdomen/pelvis less than revealed small bowel obstruction at site of ventral hernia. No further bleeding noted. Gastric output approximately 700 cc. No bowel movement. 08/27: Tmax 99.7. Currently afebrile. Positive BM overnight approximately 1 L according to RN. No blood noted. 100 cc from gastric tube overnight. Hemoglobin corrected a properly. Likely dilutional. Noted fungemia currently issue. Opens eyes to voice. 08/28: Tmax 99.1. No BMs overnight. Minimal gastric tube output. Hemoglobin stable 9.5. Opens eyes to voice. Not following commands. Appears with singultus this morning. Subjective 08/29: 20 beat run of wide complex tachycardia overnight. Noted potassium 3.2. This is been replaced. We'll recheck this afternoon. Circuit exchange yesterday. Patient tolerating pressure control ventilation much better than PRVC/AC ventilation is low probably VQ scan. Less FiO2 requirements. No BM past 24 hours. Objective Vital Signs Date Time Temp Pulse Resp B/P Pulse Ox O2 Delivery O2 Flow Rate FiO2 08/29/16 12:16 97 45 08/29/16 10:00 83 08/29/16 08:00 98.4 18 146/88 08/29/16 07:00 Mechanical Ventilator Intake and Output 08/28/16 08/28/16 08/29/16 08:00 16:00 00:00 Intake Total 1048 ml 1199 ml 1003 ml Output Total 850 ml 750 ml 1250 ml Balance 198 ml 449 ml -247 ml Result Diagram: 08/29/16 0230 08/29/16 0230 Other Results Microbiology Date/Time Procedure Status Source Growth 08/27/16 10:30 Aerobic Blood Culture - Preliminary Resulted Blood Line NO GROWTH IN 2 DAYS 08/27/16 10:30 Anaerobic Blood Culture - Preliminary Resulted Blood Line NO GROWTH IN 2 DAYS 08/26/16 14:40 Gram Stain - Final Complete Sputum Endotracheal 08/26/16 14:40 Sputum Culture - Final Complete Serratia Marcescens 08/25/16 18:00 Urine Culture - Final Complete Urine Catheterized Urine NO GROWTH IN 48 HOURS. Imaging Last Impressions Lower Extremity Ultrasound 08/28/16 Signed Impressions: Service Date/Time: Sunday, August 28, 2016 22:19 - CONCLUSION: 1. The study is negative for deep venous thrombosis bilateral lower extremity. 2. Distal thigh cystic lesion with arterial pattern of flow within the central lumen suggests possible aneurysm or pseudoaneurysm. 3. Stable large left popliteal cyst. Polo Saunders MD Chest X-Ray 08/28/16 Signed Impressions: Service Date/Time: Sunday, August 28, 2016 13:08 - CONCLUSION: 1. Bibasilar consolidation and small effusions are slightly worse. 2. Nasogastric pulled back in the interim, tip near the GE junction currently. Lex Lopez MD Brain MRI 08/27/16 Signed Impressions: Service Date/Time: August 15:13 - CONCLUSION: No evidence of acute infarct, hemorrhage, mass or edema. No findings to suggest significant anoxic injury. Kit Power MD Renal Ultrasound 08/25/16 Signed Impressions: Service Date/Time: Wednesday, August 24, 2016 21:53 - CONCLUSION: 1. There is no hydronephrosis. Both kidneys demonstrate mild increased echotexture of the parenchyma suggesting medical renal disease. 2. Trace perihepatic free fluid and bilateral pleural effusions. Lex Malik MD Chest CT 08/25/16 Signed Impressions: Service Date/Time: Thursday, August 25, 2016 21:20 - CONCLUSION: 1. Bilateral pneumonia and aspiration would be in the differential. There is dependent consolidation/atelectasis and small effusions of the bases as well. 2. Upper limits of normal to mildly enlarged mediastinal lymph nodes, most likely reactive. 3. Coronary artery calcification. 4. Right rib fractures, including acute fractures laterally of the third, fourth and fifth. There are old, healed fractures anteriorly of the right second and third ribs.. Lex Lopez MD Abdomen/Pelvis CT 08/25/16 Signed Impressions: Service Date/Time: Thursday, August 25, 2016 20:20 - CONCLUSION: 1. Ventral hernia containing small bowel and with associated small bowel obstruction. The defect is broad; I believe the obstruction is probably related to scarring and/or adhesions within the hernia sac. I don't see a mass. 2. Distended stomach despite NG tube present. 3. Severe aortoiliac atherosclerosis. No aneurysm. Lex Lopez MD Abdomen X-Ray 08/24/16 0000 Signed Impressions: Service Date/Time: Wednesday, August 24, 2016 17:19 - CONCLUSION: 1. Small bowel dilatation which reflect ileus or obstruction. Followup examination is recommended if clinically indicated. Gareth Escalante MD Objective Remarks GENERAL: 71-year-old male, critically ill currently resting in bed SKIN: Warm and dry. No rash HEAD: Atraumatic. Normocephalic. EYES: Pupils equal and round about 2-3 mm bilaterally and reactive. No scleral icterus. No injection or drainage. ENT: No nasal bleeding or discharge. Mucous membranes pink and moist. NECK: Trachea midline. No JVD. Left IJ clean dry and intact CARDIOVASCULAR: Tachycardic, RR. S1, S2. No S4. Without murmur RESPIRATORY: Diminished breath sounds throughout, specifically at the bases bilaterally. Positive expiratory wheeze. Breath sounds equal bilaterally. GASTROINTESTINAL: Abdomen significant for easily reducible ventral hernia.. Hypoactive bowel sounds are appreciated. Dark brown output from NG tube MUSCULOSKELETAL: Extremities with 1+ upper and lower extremity peripheral edema. No obvious deformities. NEUROLOGICAL: Arousable on the ventilator to physical and stimulation. Currently not following commands. Opens eyes to voice. Withdraws to pain in all 4 extremities more left upper > right upper limb > bilateral lower extremities. Date of Insertion: Aug 26, 2016 Line: Central Venous Catheter Side: Left Location: Internal, Jugular A/P Assessment and Plan Neuro/Psych: Status post CPR 15 minutes - possible anoxic encephalopathy Depression NOS Follow neuro status. Versed for sedation current 6 mg an hour for sedation while intubated We'll switch to Precedex and attempt to wean to better assess neurological status Goal of RASS -2. Concern for anoxic encephalopathy following cardiac arrest. EEG 08/25 revealed mild to moderate encephalopathy. No epileptiform activity. MRI brain 08/27 revealed no acute findings. Holding trazodone 50 mg at night for depression Cardiovascular: Cardiac arrest status post CPR Elevated troponin History dyslipidemia History of hypertension PVD Systemic shock likely secondary to sepsis/aspiration/small bowel obstruction Possible pseudoaneurysm Off all vasopressors Currently normal saline at 40 cc an hour. Continue Cardizem at 30 mg 4 times a day since blood pressures normalized. Not on any lipid-lowering agents at home. Cardiac arrest status post CPR. s/p aggressive fluid resuscitation. 5 units PRBCs transfused. To date minimal troponin elevation following cardiac arrest noted. Echo 2D revealed EF 55%. Moderate LVH. Mitral valve calcified. Mild TR. IR consultation for occlusion of pseudoaneurysm Pulmonary: Acute respiratory failure secondary to aspiration pneumonia End-stage COPD. Oxygen dependent FEV1 28%, FVC 1.6. ACV 20/500/8/50 Duo nebs every 4 hours and as needed, At home on Symbicort 160/4.5 twice a day and duo nebs 4 times a day Switched to Pulmicort twice a day Currently on Solu-Medrol 40 mEq IV every 8 hours. Wean Titrate FiO2 down provided O2 sat greater than 90%. CT chest revealed small pleural effusions bilaterally with likely aspiration VQ scan low probability Spontaneous breathing trials when clinically indicated GI/liver: History of ventral hernia Hypokalemia Nothing by mouth, NG suction. Protonix 80 mg IV bolus followed by 8 mg/h IV infusion. GI consulted and discussed this with Dr. Radford on 08/24. Being resuscitated currently. EGD revealed 25 cm proximal esophagus with possible bleeding. Rule out aorto esophageal fistula. Dr. roberts/general surgery evaluated. Does not believe abdomen surgical the present time. Recheck BMP this afternoon GI. Small bowel obstruction Upper GI bleed plus esophageal rule out aorto esophageal fistula History of Ashley esophagitis History of colonic polyps History of ventral hernia status post repair last by Dr. Roberts CT abdomen/pelvis the sesamoid revealed small bowel obstruction level but hernia. Severe aortoiliac disease. Dr. roberts/general surgery evaluated. Very poor surgical candidate this time. EGD 08/25 revealed esophageal nipple. Clots noted within the gastric contents without active bleeding. Recommended CTA rule out aorto esophageal fistula however cannot perform due to elevated creatinine. Hemoglobin appears stable. Gilles if continues upper GI bleed Continue NG tube to tube feeds at 20 cc an hour Renal/: Acute kidney injury History of bladder outlet obstruction IV hydration, strict intake output, monitor and replete electro lites, follow BUN creatinine. Currently holding Flomax 0.4 mg daily No hydronephrosis on CT abdomen/pelvis Negative urine eosinophils. ID: UTI Sepsis Fungemia Repeat blood and sputum cultures, UA and urine cultures have indicated. Appreciate ID consult with worsening leukocytosis and septic shock Empiric antibiotic coverage with IV vancomycin and Zosyn to be continued. IV Diflucan started by GI for Ashley esophagitis. Started on IV micafungin 08/26 secondary to yeast in blood. Pertinent cultures 08/28 - blood from central line -no growth 08/27 -arterial line blood - pending 08/26 - sputum -Serratia 08/25 - blood cultures 2 -Ashley 08/25 - urine -no growth 08/22 - blood cultures 2 - no growth 08/21 - urine - no growth 08/20 - blood cultures 2 - 1 out of 4 staph epi Endocrine: Chronic prednisone use secondary to COPD SSI for glycemic control as needed. Currently on Solu-Medrol 40 mg IV every 8 hours Heme: Acute blood loss anemia History of prostate cancer Leukocytosis Status post 4 units PRBCs ands 2 units FFP on 08/24. Given one unit PRBCs 08/26 Follow CBC and coags. FEN: Hypokalemia Hyperphosphatemia Replace electrolytes as clinically indicated AM labs pending. Last potassium 3 2 MSK: PT/OT evaluate and treat Access - Left IJ CVL day 4 Prophylaxis - GI -Protonix drip - DVT - SCD/pharmacological prophylaxis contraindicated with GI bleed Critical Care: The total critical care time was 35 minutes. Time to perform other separately billable procedures was not included in the critical care time. Discuss with daughter at bedside. Care plan discussed and all questions answered. Jas Persaud MD Aug 29, 2016 12:52
[2016-08-29] MEDS: MIDAZOLAM 100 MG/ML INJ 100 ML IV SCH (12:57)
[2016-08-29 13:42] LABS: BICARBONATE 25.6 MEQ/L (21.0-32.0); MAGNESIUM 1.9 MG/DL (1.5-2.5)
[2016-08-29 13:46] LABS: POTASSIUM 2.9 MEQ/L (3.5-5.1)
[2016-08-29] MEDS: POTASSIUM CHLOR 40 MEQ PREMIX 100 ML IV SCH ×2 (13:58→16:55)
--- NOTE | 2016-08-29 14:17 | EKG ---
Date Performed: 08/29/2016 Time Performed: 03:11:58 PTAGE: 71 years EKG: Sinus rhythm Right bundle branch block Compared to prior tracing no significant change Abnormal ECG PREVIOUS TRACING : 08/24/16 DOCTOR: Jonatan Morgan Interpretating Date/Time 08/29/2016 14:16:09
--- NOTE | 2016-08-29 14:40 | HHI.IDPN ---
Note Infectious Disease Note ID coverage. Discussed with RN Patient is afebrile Sedated on the vent Off pressors. is a 71 y/o CM with COPD and oxygen dependent, Ashley esophagitis, prior h/o pneumonia. According to the since the patient was discharged he continued to have nausea and vomiting. He has not had any bowel movement, and she thinks in the last 3 weeks. Patient started having more weakness, and was getting more short of breath, so the patient presented back to the hospital and was admitted August 20. He was admitted as a COPD exacerbation and pneumonia. He was put on empiric antibiotics. Patient had in hospital cardiorespiratory arrest. He was successfully resuscitated, and intubated. Patient had an A- line in arm, CL in groin which was changed on 08/27/16. 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 Patient continues to have elevated WBC, and is being treated for sepsis secondary to aspiration PNA, Fungemia likely line related (groin line likely now DCed). Antibiotics Zosyn Micafungin Lines L I J central line Past Medical History Hypertension COPD O2 dependent prostate cancer Bladder outlet obstruction Hyperlipidemia Past Surgical History Ventral hernia Appendectomy Perforated gastric ulcer surgery Cataract Upper and lower endoscopy Allergies: Coded Allergies: *MDRO Multi-Drug Resistant Organism (Verified Adverse Reaction, Unknown, ) MRSA (abdominal wound) 2015 per 04/10/2015 H&P MRSA PCR Screen #1 NEGATIVE - 08/21/16 Objective Vital Signs Date Time Temp Pulse Resp B/P Pulse Ox O2 Delivery O2 Flow Rate FiO2 08/29/16 14:05 45 08/29/16 14:00 82 08/29/16 13:50 45 08/29/16 13:40 45 08/29/16 12:16 97 45 08/29/16 12:00 55 08/29/16 12:00 98.3 87 18 160/87 99 08/29/16 12:00 87 08/29/16 11:05 100 100 08/29/16 10:00 83 08/29/16 08:06 84 08/29/16 08:00 98.4 87 18 146/88 99 08/29/16 08:00 55 08/29/16 07:43 99 55 08/29/16 07:00 99 Mechanical Ventilator 55 08/29/16 06:00 89 08/29/16 04:00 55 08/29/16 04:00 100 08/29/16 04:00 98.6 100 27 162/96 99 08/29/16 03:40 99 55 08/29/16 02:00 101 08/29/16 00:20 98 55 08/29/16 00:00 55 08/29/16 00:00 87 08/29/16 00:00 98.4 87 22 158/92 98 08/28/16 22:03 97 55 08/28/16 22:00 101 08/28/16 22:00 55 08/28/16 20:00 60 08/28/16 20:00 104 08/28/16 20:00 98.5 108 29 152/87 93 Arterial Line 08/28/16 19:00 93 Mechanical Ventilator 60 08/28/16 18:00 117 08/28/16 17:04 92 50 08/28/16 16:00 98.5 103 28 143/89 95 08/28/16 16:00 50 08/28/16 16:00 103 . 08/28/16 08/28/16 08/29/16 15:00 23:00 07:00 Intake Total 1199 ml 1003 ml 944 ml Output Total 750 ml 1250 ml 1300 ml Balance 449 ml -247 ml -356 ml IV Total 1199 ml 908 ml 544 ml Tube Feeding 35 ml 250 ml Tube Irrigant 60 ml 150 ml Output Urine Total 700 ml 1250 ml 1300 ml Gastric Drainage Total 50 ml 0 ml 0 ml # Bowel Movements 0 0 0 Laboratory Tests Test 08/27/16 08/28/16 08/29/16 21:15 05:00 02:30 White Blood Count 34.3 TH/MM3 34.3 TH/MM3 24.6 TH/MM3 Red Blood Count 3.03 MIL/MM3 3.11 MIL/MM3 3.08 MIL/MM3 Hemoglobin 9.1 GM/DL 9.3 GM/DL 9.1 GM/DL Hematocrit 26.8 % 27.4 % 27.3 % Mean Corpuscular Volume 88.3 FL 88.1 FL 88.7 FL Mean Corpuscular Hemoglobin 30.0 PG 30.0 PG 29.5 PG Mean Corpuscular Hemoglobin 34.0 % 34.0 % 33.3 % Concent Red Cell Distribution Width 16.4 % 17.0 % 16.8 % Platelet Count 113 TH/MM3 118 TH/MM3 116 TH/MM3 Mean Platelet Volume 8.3 FL 7.9 FL 8.1 FL Neutrophils (%) (Auto) 95.9 % 97.2 % Lymphocytes (%) (Auto) 1.7 % 1.3 % Monocytes (%) (Auto) 2.1 % 1.3 % Eosinophils (%) (Auto) 0.1 % 0.0 % Basophils (%) (Auto) 0.2 % 0.2 % Neutrophils # (Auto) 32.9 TH/MM3 24.0 TH/MM3 Lymphocytes # (Auto) 0.6 TH/MM3 0.3 TH/MM3 Monocytes # (Auto) 0.7 TH/MM3 0.3 TH/MM3 Eosinophils # (Auto) 0.0 TH/MM3 0.0 TH/MM3 Basophils # (Auto) 0.1 TH/MM3 0.0 TH/MM3 CBC Comment AUTO DIFF AUTO DIFF Differential Total Cells 100 100 Counted Neutrophils % (Manual) 84 % 81 % Band Neutrophils % 8 % 9 % Monocytes % 5 % 3 % Neutrophils # (Manual) 32.6 TH/MM3 23.4 TH/MM3 Metamyelocytes 1 % 4 % Myelocytes 2 % 1 % Differential Comment FINAL DIFF FINAL DIFF MANUAL MANUAL Platelet Estimate LOW LOW Platelet Morphology Comment NORMAL NORMAL Keratocytes OCC Lymphocytes % 2 % Laboratory Tests Test 08/27/16 08/28/16 08/28/16 08/29/16 21:15 05:00 16:05 02:30 Sodium Level 144 MEQ/L 145 MEQ/L 148 MEQ/L Potassium Level 2.9 MEQ/L 3.0 MEQ/L 3.4 MEQ/L 3.2 MEQ/L Chloride Level 107 MEQ/L 110 MEQ/L 113 MEQ/L Carbon Dioxide Level 25.1 MEQ/L 23.0 MEQ/L 24.6 MEQ/L Anion Gap 12 MEQ/L 12 MEQ/L 10 MEQ/L Blood Urea Nitrogen 76 MG/DL 72 MG/DL 63 MG/DL Creatinine 2.34 MG/DL 2.16 MG/DL 1.97 MG/DL Estimat Glomerular Filtration 28 ML/MIN 30 ML/MIN 34 ML/MIN Rate Random Glucose 128 MG/DL 134 MG/DL 192 MG/DL Calcium Level 7.9 MG/DL 8.1 MG/DL 8.2 MG/DL Phosphorus Level 3.4 MG/DL 2.6 MG/DL Magnesium Level 1.9 MG/DL 2.1 MG/DL Total Bilirubin 0.3 MG/DL 0.5 MG/DL Aspartate Amino Transf 23 U/L 23 U/L (AST/SGOT) Alanine Aminotransferase 39 U/L 35 U/L (ALT/SGPT) Alkaline Phosphatase 106 U/L 146 U/L Total Protein 4.9 GM/DL 5.2 GM/DL Albumin 1.4 GM/DL 1.6 GM/DL Troponin I 0.12 NG/ML Test 08/29/16 13:07 Sodium Level 154 MEQ/L Potassium Level 2.9 MEQ/L Chloride Level 116 MEQ/L Carbon Dioxide Level 25.6 MEQ/L Anion Gap 12 MEQ/L Blood Urea Nitrogen 65 MG/DL Creatinine 2.01 MG/DL Estimat Glomerular Filtration 33 ML/MIN Rate Random Glucose 255 MG/DL Calcium Level 7.8 MG/DL Phosphorus Level 2.4 MG/DL Magnesium Level 1.9 MG/DL Microbiology Date/Time Procedure Status Source Growth 08/26/16 14:40 Gram Stain - Final Complete Sputum Endotracheal 08/26/16 14:40 Sputum Culture - Final Complete Serratia Marcescens 08/27/16 10:30 Aerobic Blood Culture - Preliminary Resulted Blood Arterial Line NO GROWTH IN 2 DAYS 08/27/16 10:30 Anaerobic Blood Culture - Preliminary Resulted Blood Arterial Line NO GROWTH IN 2 DAYS 08/27/16 10:30 Aerobic Blood Culture - Preliminary Resulted Blood Line NO GROWTH IN 2 DAYS 08/27/16 10:30 Anaerobic Blood Culture - Preliminary Resulted Blood Line NO GROWTH IN 2 DAYS Chest X-Ray 08/27/16 0600 Signed Impressions: Service Date/Time: August 02:27 - CONCLUSION: 1. Patchy bilateral airspace disease with improving aeration/decreasing effusions in the bases bilaterally. 2. Stable position of life support tubes. Con Valdes MD Chest X-Ray 08/26/16 [id number] Signed Impressions: Service Date/Time: Friday, August 26, 2016 08:14 - CONCLUSION: Left IJ central line distal tip in the SVC. No pneumothorax is visualized. There is a stable appearance the lungs with bilateral airspace consolidation. Lex Malik MD Chest X-Ray 08/26/16 0600 Signed Impressions: Service Date/Time: Friday, August 26, 2016 04:01 - CONCLUSION: 1. Worsening bibasilar effusions/atelectasis with diffuse interstitial edema, all characteristic of CHF. 2. Endotracheal tube remains appropriately positioned above the michele Con Valdes MD Chest X-Ray 08/26/16 0754 Signed Impressions: Service Date/Time: Friday, August 26, 2016 08:14 - CONCLUSION: Left IJ central line distal tip in the SVC. No pneumothorax is visualized. There is a stable appearance the lungs with bilateral airspace consolidation. Lex Malik MD Renal Ultrasound 08/25/16 0000 Signed Impressions: Service Date/Time: Wednesday, August 24, 2016 21:53 - CONCLUSION: 1. There is no hydronephrosis. Both kidneys demonstrate mild increased echotexture of the parenchyma suggesting medical renal disease. 2. Trace perihepatic free fluid and bilateral pleural effusions. Lex Malik MD Chest CT 08/25/16 0000 Signed Impressions: Service Date/Time: Thursday, August 25, 2016 21:20 - CONCLUSION: 1. Bilateral pneumonia and aspiration would be in the differential. There is dependent consolidation/atelectasis and small effusions of the bases as well. 2. Upper limits of normal to mildly enlarged mediastinal lymph nodes, most likely reactive. 3. Coronary artery calcification. 4. Right rib fractures, including acute fractures laterally of the third, fourth and fifth. There are old, healed fractures anteriorly of the right second and third ribs.. Lex Lpoez MD Abdomen/Pelvis CT 08/25/16 0000 Signed Impressions: Service Date/Time: Thursday, August 25, 2016 20:20 - CONCLUSION: 1. Ventral hernia containing small bowel and with associated small bowel obstruction. The defect is broad; I believe the obstruction is probably related to scarring and/or adhesions within the hernia sac. I don't see a mass. 2. Distended stomach despite NG tube present. 3. Severe aortoiliac atherosclerosis. No aneurysm. Lex Lopez MD Abdomen X-Ray 08/24/16 0000 Signed Impressions: Service Date/Time: Wednesday, August 24, 2016 17:19 - CONCLUSION: 1. Small bowel dilatation which reflect ileus or obstruction. Followup examination is recommended if clinically indicated. Gareth Escalante MD Physical Exam GENERAL: Sedated on the vent. SKIN: Warm and dry. No generalized rash or ecchymosis. HEENT: Pale conjunctivae, no petechia or hemorrhage. Pupils equal round and reactive. No scleral icterus. NECK: Trachea midline. CARDIOVASCULAR: Regular rate and rhythm without murmurs, gallops, or rubs. RESPIRATORY: Decreased breath sounds throughout. GASTROINTESTINAL: Abdomen soft, with protuberance in middle- incisional hernia. No reaction to deep palpation. Has midline scar. Bowel sounds are hypoactive, no guarding. MUSCULOSKELETAL: Extremities without clubbing, cyanosis. Developing ne pedal edema. NEUROLOGICAL: Sedated PSYCH: Unable to assess LINE: LIJ TLC no evidence of infection. Assessment & Plan IMPRESSION Sepsis present on admission. Septic Shock with MODS. Central line associated blood stream infection (CLABSI) related fungemia ( likely groin line) now discontinued. Will DC arterial line today. Aspiration Pneumonia: Serratia marcescens. Status post cardiorespiratory arrest, likely aspirated Findings SBO within th hernia on CT A/P Acute respiratory failure on vent. GI bleed Leukocytosis, worsening, most likely multifactorial, fungemia, due to acute GI bleed as well as aspiration and arrest COPD, oxygen dependent Previous GI bleed with workup showing gastritis, Ashley esophagitis, and polyps Large incisional ventral hernia Bladder outlet obstruction, currently has a Hammond Renal insufficiency RECOMMENDATION Continue Micafungin IV (C.glabrata fungemia) Continue Zosyn IV (covers for aspiration PNA) Follow cultures Follow CBC, CMP. Monitor progress 2D ECHO. Opthalm consult next week to r/o fungal endopthalmitis. Gautam Yanez MD Aug 29, 2016 14:40
[2016-08-29] MEDS ORDERED: NITROGLYCERIN 2% OINT 1 GM PACKET TOPICAL PRN (16:45)
--- NOTE | 2016-08-29 19:00 | EC ---
Study Study Date:08/29/2016 STUDY CONCLUSIONS SUMMARY - Left ventricle: The cavity size was mildly dilated. Wall thickness was normal. Systolic function was moderately reduced. The estimated ejection fraction was in the range of 35% to 40%. Diffuse hypokinesis. Doppler parameters are consistent with abnormal left ventricular relaxation (grade 1 diastolic dysfunction). - Aortic valve: Valve area: 2.49cm^2(VTI). Valve area: 2.37cm^2 (Vmax). - Mitral valve: Mildly calcified annulus. No evidence of vegetation. Valve area by continuity equation (using LVOT flow): 2.78cm^2. - Tricuspid valve: No evidence of vegetation. - Pulmonic valve: No evidence of vegetation. If LV function is below 40, please consider prescribing an ACEI or ARB or document rationale for non-use. PROCEDURE DATA STUDY STATUS: Elective. Procedure: Transthoracic echocardiography. Image quality was good. Scanning was performed from the parasternal, apical, and subcostal acoustic windows. Study completion: The patient tolerated the procedure well. Transthoracic echocardiography. M-mode, complete 2D, complete spectral Doppler, and color Doppler. Height: Height: 67in. Weight: Weight: 161.7lb. Body mass index: BMI: 25.4kg/m^2. Body surface area: BSA: 1.85m^2. Patient status: Inpatient. CARDIAC ANATOMY LEFT VENTRICLE: The cavity size was mildly dilated. Wall thickness was normal. Systolic function was moderately reduced. The estimated ejection fraction was in the range of 35% to 40%. Diffuse hypokinesis. Doppler parameters are consistent with abnormal left ventricular relaxation (grade 1 diastolic dysfunction). AORTIC VALVE: Trileaflet; normal thickness leaflets. Doppler: Transvalvular velocity was within the normal range. There was no stenosis. Trace to mild regurgitation. Valve area: 2.49cm^2(VTI). Indexed valve area: 1.35cm^2/m^2 (VTI). Valve area: 2.37cm^2 (Vmax). Indexed valve area: 1.28cm^2/m^2 (Vmax). Mean gradient: 6mm Hg (S). Peak gradient: 11mm Hg (S). AORTA: Aortic root: The aortic root was normal in size. MITRAL VALVE: Mildly calcified annulus. No evidence of vegetation. Doppler: Transvalvular velocity was within the normal range. There was no evidence for stenosis. Trace to mild regurgitation. Valve area by continuity equation (using LVOT flow): 2.78cm^2. Indexed valve area by continuity equation (using LVOT flow): 1.5cm^2/m^2. Mean gradient: 3mm Hg (D). Peak gradient: 8mm Hg (D). LEFT ATRIUM: The atrium was normal in size. RIGHT VENTRICLE: The cavity size was normal. Wall thickness was normal. PULMONIC VALVE: No evidence of vegetation. Doppler: Transvalvular velocity was within the normal range. There was no evidence for stenosis. Trace to mild regurgitation. TRICUSPID VALVE: Structurally normal valve. Leaflet separation was normal. No evidence of vegetation. Doppler: Trace regurgitation. PULMONARY ARTERY: The main pulmonary artery was normal-sized. Systolic pressure was within the normal range. RIGHT ATRIUM: The atrium was normal in size. PERICARDIUM: There was no pericardial effusion. SYSTEMIC VEINS: Inferior vena cava: The vessel was normal in size. Patient weight: 161.7lb _Ejection fraction:_ 65-75% _Fractional shortening:_ 32% up to 5Kg 5-11.5Kg 11.6-22.9Kg 23-45Kg 45-57Kg Aortic Root 7-13 <17 13-22 17-27 17-27 LA diam 6-13 <23 24-38 33-47 37-40 RVID 10-17 7-15 7-15 7-18 8-17 LVIDd 12-22 <32 24-38 33-47 37-40 LVPW 2-4 3-6 5-7 6-8 7-8 IVS 2-4 3-6 5-7 6-8 7-8 BASIC MEASUREMENTS ADULT NORMAL Left ventricle LV internal dimension, ED, chordal *57.9 mm 43-52 level, PLAX LV internal dimension, ES, chordal *54.6 mm 23-38 level, PLAX Fractional shortening, chordal level, *6 % >29 PLAX LV posterior wall thickness, ED 9.56 mm IVS/LVPW ratio, ED 1.01 <1.3 Ventricular septum Septal thickness, ED 9.67 mm Aortic valve Leaflet separation 18 mm 15-26 Aorta Root diameter, ED 33 mm Left atrium Anterior-posterior dimension 29 mm Anterior-posterior dimension index 1.57 cm/m^2 <2.2 BASIC MEASUREMENTS ADULT NORMAL Aortic valve Leaflet separation 18 mm 15-26 DOPPLER MEASUREMENTS ADULT NORMAL Main pulmonary artery Pressure, S 29 mm Hg =30 Aortic valve Peak velocity, S 168 cm/s Mean velocity, S 110 cm/s VTI, S 30.7 cm Mean gradient, S 6 mm Hg Peak gradient, S 11 mm Hg Valve area, VTI 2.49 cm^2 Valve area index, VTI 1.35 cm^2/m^2 Valve area, Vmax 2.37 cm^2 Valve area index, Vmax 1.28 cm^2/m^2 Mitral valve Peak E-wave velocity 90.5 cm/s Peak A-wave velocity 117 cm/s Mean velocity, D 80.2 cm/s Deceleration time *144 ms 150-230 Mean gradient, D 3 mm Hg Peak gradient, D 8 mm Hg Peak E/A ratio 0.8 Valve area, LVOT continuity 2.78 cm^2 Valve area index, LVOT continuity 1.5 cm^2/m^2 Tricuspid valve Regurgitant peak velocity 229 cm/s Peak RV-RA gradient, S 21 mm Hg Maximal regurgitant velocity 229 cm/s Systemic veins Estimated CVP 10 mm Hg Right ventricle RV pressure, S *31 mm Hg <30 Pulmonic valve Peak velocity, S 62.4 cm/s LEGEND: Mean values are shown as u=mean value. Asterisk (*) dolan values outside specified normal range. Prepared and signed by Eulogio Perrin [id number]
[2016-08-29] MEDS: SODIUM CHLOR 0.9% 1000 ML INJ 1,000 ML IV SCH (19:40)
[2016-08-29 23:39] LABS: ANION GAP 9 MEQ/L (5-15); AST (GOT) 25 U/L (15-37); BICARBONATE 27.4 MEQ/L (21.0-32.0); BLOOD UREA NITROGEN 62 MG/DL (7-18); CHLORIDE 118 MEQ/L (98-107); GLOMERULAR FILTRATION RATE 34 ML/MIN (>89); MAGNESIUM 1.8 MG/DL (1.5-2.5); POTASSIUM 3.3 MEQ/L (3.5-5.1); SODIUM (NA) 154 MEQ/L (136-145)
[2016-08-29 23:43] LABS: ALKALINE PHOSPHATASE 140 U/L (45-117); ALT (GPT) 34 U/L (12-78); TOTAL BILIRUBIN ADULT 0.5 MG/DL (0.2-1.0)
[2016-08-30] VITALS (20 sets, daily range): BP systolic 108–159; BP diastolic 61–97; PULSE 69–115; RESP 16–32; TEMP 97.7–99; O2SAT 92–100
[2016-08-30] MEDS: RESP: ALBUTEROL 2.5 MG/IPRATROPIUM 0.5 MG NEB (SCH) NEB ×6 (00:04→20:43)
[2016-08-30] MEDS: PIPERACIL-TAZO 3.375 GM PREMIX 50 ML IV SCH ×4 (03:20→20:18)
[2016-08-30] MEDS: PANTOPRAZOLE INJ 80 MG in SODIUM CHLORIDE 0.9% INJ 100 ML IV SCH ×2 (03:21→14:57)
[2016-08-30] MEDS: methylPREDNISolone SOD SUCC 40 MG/1 ML VIAL IV PUSH SCH ×3 (05:15→20:18)
[2016-08-30] MEDS: MIDAZOLAM 100 MG/ML INJ 100 ML IV SCH (05:15)
[2016-08-30 05:52] LABS: AUTOMATED NEUTROPHIL # 19.9 TH/MM3 (1.8-7.7); BASOPHIL % 0.1 % (0.0-2.0); EOSINOPHIL % 0.1 % (0.0-4.0); HEMATOCRIT 23.5 % (39.0-51.0); LYMPH % 1.8 % (9.0-44.0); LYMPHOCYTE # 0.4 TH/MM3 (1.0-4.8); MEAN CELL VOLUME 89.6 FL (80.0-100.0); MEAN CORPUSCULAR HEMOGLOBIN 30.4 PG (27.0-34.0); MONO % 4.3 % (0.0-8.0); NEUT % 93.7 % (16.0-70.0); PLATELET COUNT 105 TH/MM3 (150-450); RED BLOOD COUNT 2.62 MIL/MM3 (4.50-5.90); RED CELL DISTRIBUTION WIDTH 16.5 % (11.6-17.2); WHITE BLOOD COUNT 21.2 TH/MM3 (4.0-11.0)
[2016-08-30 05:58] LABS: HEMO FLAGS AUTO DIFF
--- NOTE | 2016-08-30 06:04 | RADRPT ---
EXAM DATE/TIME: 08/30/2016 05:00 [facility] COMPARISON: CHEST SINGLE AP, August 28, 2016, 13:08. INDICATIONS : Evaluate for pneumonia. MEDICAL HISTORY : Hypertension. Chronic obstructive pulmonary disease. SURGICAL HISTORY : None. ENCOUNTER: Subsequent ACUITY: 1 week PAIN SCORE: Non-responsive. LOCATION: Bilateral chest FINDINGS: Endotracheal tube tip well above the michele. Left internal jugular catheter tip in the mid superior vena cava. Gastric tube tip and side-port within the stomach.. There is increasing consolidation in the left mid and lower lung. There is also increasing central and infrahilar infiltrate on the righ t-sided. Hazy opacity obscures the right hemidiaphragm suggesting pleural effusion. CONCLUSION: Increasing consolidation in the left mid and lower lung and increasing ill-defined opacity right lowe r lung suggesting either infiltrate or pleural effusion. Polo Saunders MD on August 30, 2016 at 6:01 Board Certified Radiologist. This report was verified electronically.
[2016-08-30 06:23] LABS: ALKALINE PHOSPHATASE 133 U/L (45-117); ALT (GPT) 34 U/L (12-78); ANION GAP 12 MEQ/L (5-15); AST (GOT) 24 U/L (15-37); BICARBONATE 25.3 MEQ/L (21.0-32.0); BLOOD UREA NITROGEN 60 MG/DL (7-18); CHLORIDE 119 MEQ/L (98-107); GLOMERULAR FILTRATION RATE 35 ML/MIN (>89); MAGNESIUM 1.7 MG/DL (1.5-2.5); POTASSIUM 3.5 MEQ/L (3.5-5.1); TOTAL BILIRUBIN ADULT 0.5 MG/DL (0.2-1.0)
[2016-08-30 06:38] LABS: SODIUM (NA) 156 MEQ/L (136-145)
[2016-08-30] MEDS: SODIUM CHLORIDE 0.9% FLUSH 5 ML FLUSH IVF SCH (07:33)
[2016-08-30] MEDS: DILTIAZEM HCL 30 MG TAB PO SCH ×4 (08:54→21:00)
[2016-08-30] MEDS: MULTIVITAMIN TAB PO SCH (08:54)
[2016-08-30] MEDS: RESP: BUDESONIDE 0.5 MG/2 ML NEB NEB SCH ×2 (09:30→20:43)
[2016-08-30 09:52] LABS: BANDS 4 % (0-6); CORRECTED NUCLEATED RBC 1 /100 WBC (0-0); MYELOCYTES 3 % (0-0); NEUTROPHIL # MANUAL DIFF 20.8 TH/MM3 (1.8-7.7); POLYS (SEG NEUTROPHILS) 91 % (16-70); WBC DIFF SAMPLE 100
[2016-08-30 09:53] LABS: KERATOCYTES OCC (NORMAL); PLATELET ESTIMATE SMEAR LOW (NORMAL); PLATELET MORPHOLOGY NORMAL (NORMAL); SCAN/DIFF FINAL DIFF MANUAL
--- NOTE | 2016-08-30 12:45 | HHI.GIFU ---
Subjective Remarks 71 yo male lying in bed in no apparent distress. Intubated. Family at bedside. (Anna Herrera) Objective Vitals I&O Vital Signs Date Time Temp Pulse Resp B/P Pulse Ox O2 Delivery O2 Flow Rate FiO2 08/30/16 12:04 100 45 08/30/16 10:00 88 08/30/16 09:36 45 08/30/16 09:36 96 45 08/30/16 09:30 45 08/30/16 08:00 88 08/30/16 08:00 45 08/30/16 08:00 98.2 88 21 153/97 98 08/30/16 07:00 99 Mechanical Ventilator 45 08/30/16 06:00 98 08/30/16 04:17 98 45 08/30/16 04:00 94 08/30/16 04:00 98.7 94 18 147/94 99 08/30/16 04:00 45 08/30/16 02:00 76 08/30/16 00:04 98 45 08/30/16 00:00 80 08/30/16 00:00 99.0 80 18 143/76 98 08/30/16 00:00 45 08/29/16 22:00 73 08/29/16 20:00 98.6 73 19 150/91 100 08/29/16 20:00 45 08/29/16 20:00 70 08/29/16 19:50 99 45 08/29/16 19:00 99 Mechanical Ventilator 45 08/29/16 18:00 84 08/29/16 16:00 45 08/29/16 16:00 71 08/29/16 16:00 98.5 71 18 146/88 100 08/29/16 15:52 100 45 08/29/16 14:05 45 08/29/16 14:00 82 08/29/16 13:50 45 08/29/16 13:40 45 I/O 08/29/16 08/29/16 08/29/16 08/30/16 08/30/16 08/30/16 07:00 15:00 23:00 07:00 15:00 23:00 Intake Total 944 ml 913 ml 1153 ml 1200 ml Output Total 1300 ml 700 ml 700 ml 800 ml Balance -356 ml 213 ml 453 ml 400 ml IV Total 544 ml 577 ml 713 ml 525 ml Tube Feeding 250 ml 276 ml 290 ml 275 ml Tube Irrigant 150 ml 60 ml 150 ml 400 ml Output Urine Total 1300 ml 700 ml 700 ml 800 ml Gastric Drainage Total 0 ml 0 ml 0 ml # Bowel Movements 0 2 1 2 Laboratory Laboratory Tests Test 08/29/16 08/29/16 08/30/16 13:07 23:00 05:20 Sodium Level 154 154 156 Potassium Level 2.9 3.3 3.5 Chloride Level 116 118 119 Carbon Dioxide Level 25.6 27.4 25.3 Anion Gap 12 9 12 Blood Urea Nitrogen 65 62 60 Creatinine 2.01 1.95 1.90 Estimat Glomerular Filtration 33 34 35 Rate Random Glucose 255 249 248 Calcium Level 7.8 7.9 8.3 Phosphorus Level 2.4 1.8 1.9 Magnesium Level 1.9 1.8 1.7 Total Bilirubin 0.5 0.5 Aspartate Amino Transf 25 24 (AST/SGOT) Alanine Aminotransferase 34 34 (ALT/SGPT) Alkaline Phosphatase 140 133 Total Protein 4.9 4.8 Albumin 1.6 1.7 White Blood Count 21.2 Red Blood Count 2.62 Hemoglobin 8.0 Hematocrit 23.5 Mean Corpuscular Volume 89.6 Mean Corpuscular Hemoglobin 30.4 Mean Corpuscular Hemoglobin 34.0 Concent Red Cell Distribution Width 16.5 Platelet Count 105 Mean Platelet Volume 9.1 Neutrophils (%) (Auto) 93.7 Lymphocytes (%) (Auto) 1.8 Monocytes (%) (Auto) 4.3 Eosinophils (%) (Auto) 0.1 Basophils (%) (Auto) 0.1 Neutrophils # (Auto) 19.9 Lymphocytes # (Auto) 0.4 Monocytes # (Auto) 0.9 Eosinophils # (Auto) 0.0 Basophils # (Auto) 0.0 CBC Comment AUTO DIFF Differential Total Cells 100 Counted Neutrophils % (Manual) 91 Band Neutrophils % 4 Monocytes % 2 Neutrophils # (Manual) 20.8 Myelocytes 3 Nucleated Red Blood Cells 1 Differential Comment FINAL DIFF MANUAL Platelet Estimate LOW Platelet Morphology Comment NORMAL Keratocytes OCC Date/Time Procedure Status Source Growth 08/27/16 10:30 Aerobic Blood Culture - Preliminary Resulted Blood Line NO GROWTH IN 3 DAYS 08/27/16 10:30 Anaerobic Blood Culture - Preliminary Resulted Blood Line NO GROWTH IN 3 DAYS 08/26/16 14:40 Gram Stain - Final Complete Sputum Endotracheal 08/26/16 14:40 Sputum Culture - Final Complete Serratia Marcescens 08/25/16 18:00 Urine Culture - Final Complete Urine Catheterized Urine NO GROWTH IN 48 HOURS. Imaging Last Impressions Lung Scan-[facility] Nuclear Medicine 08/29/16 0000 Signed Impressions: Service Date/Time: Monday, August 29, 2016 10:20 - CONCLUSION: Low probability for pulmonary embolus. Lex Lopez MD Lower Extremity Ultrasound 08/28/16 0000 Signed Impressions: Service Date/Time: Sunday, August 28, 2016 22:19 - CONCLUSION: 1. The study is negative for deep venous thrombosis bilateral lower extremity. 2. Distal thigh cystic lesion with arterial pattern of flow within the central lumen suggests possible aneurysm or pseudoaneurysm. 3. Stable large left popliteal cyst. Polo Saunders MD Chest X-Ray 08/28/16 0000 Signed Impressions: Service Date/Time: Sunday, August 28, 2016 13:08 - CONCLUSION: 1. Bibasilar consolidation and small effusions are slightly worse. 2. Nasogastric pulled back in the interim, tip near the GE junction currently. Lex Lopez MD Brain MRI 08/27/16 0000 Signed Impressions: Service Date/Time: August 15:13 - CONCLUSION: No evidence of acute infarct, hemorrhage, mass or edema. No findings to suggest significant anoxic injury. Kit Power MD Renal Ultrasound 08/25/16 0000 Signed Impressions: Service Date/Time: Wednesday, August 24, 2016 21:53 - CONCLUSION: 1. There is no hydronephrosis. Both kidneys demonstrate mild increased echotexture of the parenchyma suggesting medical renal disease. 2. Trace perihepatic free fluid and bilateral pleural effusions. Lex Malik MD Chest CT 08/25/16 0000 Signed Impressions: Service Date/Time: Thursday, August 25, 2016 21:20 - CONCLUSION: 1. Bilateral pneumonia and aspiration would be in the differential. There is dependent consolidation/atelectasis and small effusions of the bases as well. 2. Upper limits of normal to mildly enlarged mediastinal lymph nodes, most likely reactive. 3. Coronary artery calcification. 4. Right rib fractures, including acute fractures laterally of the third, fourth and fifth. There are old, healed fractures anteriorly of the right second and third ribs.. Lex Lopez MD Abdomen/Pelvis CT 08/25/16 0000 Signed Impressions: Service Date/Time: Thursday, August 25, 2016 20:20 - CONCLUSION: 1. Ventral hernia containing small bowel and with associated small bowel obstruction. The defect is broad; I believe the obstruction is probably related to scarring and/or adhesions within the hernia sac. I don't see a mass. 2. Distended stomach despite NG tube present. 3. Severe aortoiliac atherosclerosis. No aneurysm. Lex Lopez MD Abdomen X-Ray 08/24/16 0000 Signed Impressions: Service Date/Time: Wednesday, August 24, 2016 17:19 - CONCLUSION: 1. Small bowel dilatation which reflect ileus or obstruction. Followup examination is recommended if clinically indicated. Gareth Escalante MD Physical Exam HEENT: Normocephalic; atraumatic; no jaundice CHEST: Resp even. diminished. OETT to vent CARDIAC: RRR ABDOMEN: Soft, nondistended, no hepatosplenomegaly; bowel sounds are present x 4 quadrants. Large ventral hernia reducible. OGT clamped. + BM SKIN: Skin cool to touch, dry [employer]: Unresponsive (Anna Herrera) Assessment and Plan Plan ASSESSMENT: - Massive GIB with older appearing dark maroon gastric secretions. Pt is s/p CODE BLUE, vomiting large amount of dark maroon secretions on 08/24 and HH dropped to 5.4/16.7. According to the chart , he has a hx of perforated gastric ulcer. Recent EGD (08/10/16)---> mild gastritis, nodules in the EG junction, moderate esophagitis, normal endoscopy otherwise, retroflexed views revealed no abnormalities. Pathology revealed mild active chronic gastritis, nodule GE junction with gastric mucosa with mild chronic inflammation of the lamina propria and foveolar hyperplasia, acutely inflamed squamous mucosa and detached fragments of acute inflammatory exudate multiple budding yeast and pseudohyphae are present in exudate, acutely ulcerated mucosa of distal esophagus with numerous budding yeast and pseudohyphae invading tissue, consistent with mary kya esophagitis. Colonoscopy (08/11/16) with polypectomy and ablation of polyp in ascending colon with hot snare. Ascending colon with markedly cauterized colonic mucosa with features suggestive of hyperplastic polyp. S/P EGD (08/26/16)-----> Proximal esophageal lesion possibly vascular in nature , Incomplete evaluation of the stomach, Deformed pylorus. S/P CT chest (08/25/16)-----> 1. Bilateral pneumonia and aspiration would be in the differential. There is dependent consolidation/atelectasis and small effusions of the bases as well. 2. Upper limits of normal to mildly enlarged mediastinal lymph nodes, most likely reactive. 3. Coronary artery calcification. 4. Right rib fractures, including acute fractures laterally of the third, fourth and fifth. There are old, healed fractures anteriorly of the right second and third ribs. At this time, he does not appear to be having active bleeding. Okay to start TF. Possible EGD next week. Protonix Gtt. Micafungin. Not having active GI bleeding at this time. - Anemia secondary acute blood loss. S/P 5 units PRBC, 2 units FFP. 9.3/27.4. H/H today 8.0/23.5 - Ileus vs. Bowel obstruction. Abdomen X-Ray (08/24/16)---> 1. Small bowel dilatation which reflect ileus or obstruction. Followup examination is recommended if clinically indicated. Abdomen/Pelvis CT (08/25/16)----> 1. Ventral hernia containing small bowel and with associated small bowel obstruction. The defect is broad; I believe the obstruction is probably related to scarring and/or adhesions within the hernia sac. I don't see a mass. 2. Distended stomach despite NG tube present. 3. Severe aortoiliac atherosclerosis. No aneurysm. GS following, known to Dr. Roberts. GS following. Abdominal distention much improved, soft, nondistended. Large ventral hernia- reducible. Multiple large loose/liquid bowel movements. Okay with GS to start feedings. - Recent mary kay esophagitis. Diflucan, Micafungin, Protonix gtt. - S/P CODE BLUE (08/24). Pt with ROSC after 15 MN. Going for MRI brain today. - Acute respiratory failure with COPD and suspected HCAP. Vent, Nebs, Abx per [facility] - Large Ventral hernia, reducible. per Dr. Roberts - Sepsis, Severe leukocytosis, improving. WBC 21.2. Bx growing yeast. ID following. Abx Vancomycin, Diflucan, Micafungin, PLAN: - Jevity 1.5 at 20cc/hr - Infection Control Nurse evaluation for TF recommendations. - If nausea/vomiting/distention with TF, hold TF - Cont. Protonix Gtt - Cont. Micafungin per ID recommendations - Monitor HH - Transfuse as necessary - Supportive care - Monitor labs - If any active bleeding, then one should contemplate a Gilles tube placement and possible angiography. - EGD with possible therapy to this lesion in the proximal esophagus once stable. - Further recommendations to follow based on results of above Patient seen and examined by Dr. Calderon and myself and this note is written on his behalf (Anna Herrera) Physician Comments Seen and examined with FINN, no active bleeding reported. Repeat egd planned for next week.Monitor labs. (Ana Calderon MD) Anna Herrera Aug 30, 2016 12:45 Ana Calderon MD Aug 30, 2016 15:11
[2016-08-30] MEDS: MICAFUNGIN INJ 100 MG in SODIUM CHLORIDE 0.9% INJ 100 ML IV SCH (13:00)
--- NOTE | 2016-08-30 13:15 | HHI.CCPN ---
Subjective Remarks/Hospital Course 08/24: 71 Year-old male with a medical history significant for COPD on home oxygen who was recently admitted with suspected sepsis/H And was initiated on IV antibiotics and steroids. He had recently been evaluated by GI and underwent EGD on 08/10/2016 and was found to have moderate esophagitis, mild gastritis with pathology subsequently showing Ashley esophagitis as well as colonoscopy on 08/11/2016 with polypectomy and ablation of polyp in ascending colon with hot snare. Patient has been dealing with constipation since his admission. Today when he was trying to have a bowel movement he suddenly became less responsive and then had a large emesis which resulted in aspiration and hemodynamic collapse. Patient initially had large volume emesis with dark maroon blood. CODE BLUE cardiac arrest code was activated. On my arrival patient was in bed CPR had been initiated. Significant gastric contents was still being suctioned out of his oral cavity. ACLS protocol was continued. Patient was intubated following vigorous suctioning of gastric contents from oral cavity as well as with placement of NG tube which is hooked up to suction and about 1.5 L of gastric contents being suctioned out which appeared to be dark maroon in color. Patient initially had a pulse when CODE BLUE was called and subsequently went in PEA arrest followed by asystole during ACLS and then V. fib for which he was defibrillated with 200 J 1, CPR/ACLS protocol was continued and patient eventually had return of spontaneous circulation after about 15 minutes of CPR/ACLS. Patient was transferred to [facility] and placed on mechanical ventilation. I emergently placed left femoral central line for central vascular access and he was started on Levophed for pressor support. 2 units of O- 1 crossmatch blood were ordered and transfused stat. He also received 1 L of normal saline bolus following return of spontaneous circulation. Stat labs were ordered. His hemoglobin on ABG done post resuscitation was 5.6. I did order Protonix 80 mg IV stat followed by 8 mg per hour IV infusion. Patient remained encephalopathic though was minimally responsive following transfer to the ICU. GI consult was requested and I spoke with Dr. Zamarripa at bedside on his arrival. History was obtained by reviewing records, discussion with family/ GI as well as nursing staff. According to patient's daughter he has not been doing well for the last few months in terms of his breathing and has been using his home oxygen more often. He gets extremely short of breath even with the least exertion. 08/25: Remains encephalopathic/ sedated, [facility]. Transiently off levophed last night however back to 11 mcg/min currently. Hgb up to 9.4 following 4 units PRBCs transfused last night. 08/26: Tmax 99. Some unresponsive on the ventilator. CT abdomen/pelvis less than revealed small bowel obstruction at site of ventral hernia. No further bleeding noted. Gastric output approximately 700 cc. No bowel movement. 08/27: Tmax 99.7. Currently afebrile. Positive BM overnight approximately 1 L according to RN. No blood noted. 100 cc from gastric tube overnight. Hemoglobin corrected a properly. Likely dilutional. Noted fungemia currently issue. Opens eyes to voice. 08/28: Tmax 99.1. No BMs overnight. Minimal gastric tube output. Hemoglobin stable 9.5. Opens eyes to voice. Not following commands. Appears with singultus this morning. Subjective 08/29: 20 beat run of wide complex tachycardia overnight. Noted potassium 3.2. This is been replaced. We'll recheck this afternoon. Circuit exchange yesterday. Patient tolerating pressure control ventilation much better than PRVC/AC ventilation is low probably VQ scan. Less FiO2 requirements. No BM past 24 hour. 08/30: Unable to wean ventilator. Objective Vital Signs Date Time Temp Pulse Resp B/P Pulse Ox O2 Delivery O2 Flow Rate FiO2 08/30/16 12:04 100 45 08/30/16 10:00 88 08/30/16 08:00 98.2 21 153/97 08/30/16 07:00 Mechanical Ventilator Intake and Output 08/29/16 08/29/16 08/30/16 08:00 16:00 00:00 Intake Total 944 ml 913 ml 1153 ml Output Total 1300 ml 700 ml 700 ml Balance -356 ml 213 ml 453 ml Result Diagram: 08/30/16 0520 08/30/16 0520 Imaging Last Impressions Lower Extremity Ultrasound 08/28/16 0000 Signed Impressions: Service Date/Time: Sunday, August 28, 2016 22:19 - CONCLUSION: 1. The study is negative for deep venous thrombosis bilateral lower extremity. 2. Distal thigh cystic lesion with arterial pattern of flow within the central lumen suggests possible aneurysm or pseudoaneurysm. 3. Stable large left popliteal cyst. Polo Saunders MD Chest X-Ray 08/28/16 0000 Signed Impressions: Service Date/Time: Sunday, August 28, 2016 13:08 - CONCLUSION: 1. Bibasilar consolidation and small effusions are slightly worse. 2. Nasogastric pulled back in the interim, tip near the GE junction currently. Lex Lopez MD Brain MRI 08/27/16 0000 Signed Impressions: Service Date/Time: August 15:13 - CONCLUSION: No evidence of acute infarct, hemorrhage, mass or edema. No findings to suggest significant anoxic injury. Kit Power MD Renal Ultrasound 08/25/16 0000 Signed Impressions: Service Date/Time: Wednesday, August 24, 2016 21:53 - CONCLUSION: 1. There is no hydronephrosis. Both kidneys demonstrate mild increased echotexture of the parenchyma suggesting medical renal disease. 2. Trace perihepatic free fluid and bilateral pleural effusions. Lex Malik MD Chest CT 08/25/16 0000 Signed Impressions: Service Date/Time: Thursday, August 25, 2016 21:20 - CONCLUSION: 1. Bilateral pneumonia and aspiration would be in the differential. There is dependent consolidation/atelectasis and small effusions of the bases as well. 2. Upper limits of normal to mildly enlarged mediastinal lymph nodes, most likely reactive. 3. Coronary artery calcification. 4. Right rib fractures, including acute fractures laterally of the third, fourth and fifth. There are old, healed fractures anteriorly of the right second and third ribs.. Lex Lopez MD Abdomen/Pelvis CT 08/25/16 0000 Signed Impressions: Service Date/Time: Thursday, August 25, 2016 20:20 - CONCLUSION: 1. Ventral hernia containing small bowel and with associated small bowel obstruction. The defect is broad; I believe the obstruction is probably related to scarring and/or adhesions within the hernia sac. I don't see a mass. 2. Distended stomach despite NG tube present. 3. Severe aortoiliac atherosclerosis. No aneurysm. Lex Lopez MD Abdomen X-Ray 08/24/16 0000 Signed Impressions: Service Date/Time: Wednesday, August 24, 2016 17:19 - CONCLUSION: 1. Small bowel dilatation which reflect ileus or obstruction. Followup examination is recommended if clinically indicated. Gareth Escalante MD Objective Remarks GENERAL: 71-year-old male, critically ill. SKIN: Warm and dry. No rash HEAD: Atraumatic. Normocephalic. EYES: Pupils equal and round about 2 mm bilaterally and reactive. ENT: No nasal bleeding or discharge. Mucous membranes pink and moist. NECK: Trachea midline. No JVD. Left IJ clean dry and intact CARDIOVASCULAR: Tachycardic, RR. S1, S2. No S4. Without murmur RESPIRATORY: Diminished breath sounds throughout, specifically at the bases bilaterally. Positive expiratory wheeze. Breath sounds equal bilaterally. GASTROINTESTINAL: Abdomen significant for easily reducible ventral hernia.. Hypoactive bowel sounds are appreciated. Dark brown output from NG tube MUSCULOSKELETAL: Extremities with 1+ upper and lower extremity peripheral edema. No obvious deformities. NEUROLOGICAL: Responds on the ventilator to physical stimulation. Currently not following commands. Opens eyes to voice. Withdraws to pain in all 4 extremities more left upper > right upper limb > bilateral lower extremities. Date of Insertion: Aug 26, 2016 Line: Central Venous Catheter Side: Left Location: Internal, Jugular A/P Assessment and Plan Neuro/Psych: Status post CPR 15 minutes - possible anoxic encephalopathy Depression NOS Follow neuro status. Versed for sedation current 6 mg an hour for sedation while intubated We'll switch to Precedex and attempt to wean to better assess neurological status Goal of RASS -2. Concern for anoxic encephalopathy following cardiac arrest. EEG 08/25 revealed mild to moderate encephalopathy. No epileptiform activity. MRI brain 08/27 revealed no acute findings. Holding trazodone 50 mg at night for depression Cardiovascular: Cardiac arrest status post CPR Elevated troponin History dyslipidemia History of hypertension PVD Systemic shock likely secondary to sepsis/aspiration/small bowel obstruction Possible pseudoaneurysm Off all vasopressors Currently normal saline at 40 cc an hour. Continue Cardizem at 30 mg 4 times a day since blood pressures normalized. Not on any lipid-lowering agents at home. Cardiac arrest status post CPR. s/p aggressive fluid resuscitation. 5 units PRBCs transfused. To date minimal troponin elevation following cardiac arrest noted. Echo 2D revealed EF 55%. Moderate LVH. Mitral valve calcified. Mild TR. IR consultation for occlusion of pseudoaneurysm Pulmonary: Acute respiratory failure secondary to aspiration pneumonia End-stage COPD. Oxygen dependent FEV1 28%, FVC 1.6. ACV 20/500/8/50 Duo nebs every 4 hours and as needed, At home on Symbicort 160/4.5 twice a day and duo nebs 4 times a day Switched to Pulmicort twice a day Currently on Solu-Medrol 40 mEq IV every 8 hours. Wean Titrate FiO2 down provided O2 sat greater than 90%. CT chest revealed small pleural effusions bilaterally with likely aspiration VQ scan low probability Spontaneous breathing trials when clinically indicated GI/liver: History of ventral hernia Hypokalemia Nothing by mouth, NG suction. Protonix 80 mg IV bolus followed by 8 mg/h IV infusion. GI consulted and discussed this with Dr. Radford on 08/24. Being resuscitated currently. EGD revealed 25 cm proximal esophagus with possible bleeding. Rule out aorto esophageal fistula. Dr. roberts/general surgery evaluated. Does not believe abdomen surgical the present time. Recheck BMP this afternoon GI. Small bowel obstruction Upper GI bleed plus esophageal rule out aorto esophageal fistula History of Ashley esophagitis History of colonic polyps History of ventral hernia status post repair last by Dr. Roberts CT abdomen/pelvis the sesamoid revealed small bowel obstruction level but hernia. Severe aortoiliac disease. Dr. roberts/general surgery evaluated. Very poor surgical candidate this time. EGD 08/25 revealed esophageal nipple. Clots noted within the gastric contents without active bleeding. Recommended CTA rule out aorto esophageal fistula however cannot perform due to elevated creatinine. Hemoglobin appears stable. Gilles if continues upper GI bleed Continue NG tube to tube feeds at 20 cc an hour Renal/: Acute kidney injury History of bladder outlet obstruction IV hydration, strict intake output, monitor and replete electro lites, follow BUN creatinine. Currently holding Flomax 0.4 mg daily No hydronephrosis on CT abdomen/pelvis Negative urine eosinophils. ID: [id number] Sepsis Fungemia Repeat blood and sputum cultures, UA and urine cultures have indicated. Appreciate ID consult with worsening leukocytosis and septic shock Empiric antibiotic coverage with IV vancomycin and Zosyn to be continued. IV Diflucan started by GI for Ashley esophagitis. Started on IV micafungin 08/26 secondary to yeast in blood. Pertinent cultures 08/28 - blood from central line -no growth 08/27 -arterial line blood - pending 08/26 - sputum -Serratia 08/25 - blood cultures 2 -Ashley 08/25 - urine -no growth 3/4 - blood cultures 2 - no growth 3/3 - urine - no growth 3/2 - blood cultures 2 - 1 out of 4 staph epi Endocrine: Chronic prednisone use secondary to COPD SSI for glycemic control as needed. Currently on Solu-Medrol 40 mg IV every 8 hours Heme: Acute blood loss anemia History of prostate cancer Leukocytosis Status post 4 units PRBCs ands 2 units FFP on 08/24. Given one unit PRBCs 08/26 Follow CBC and coags. FEN: Hypokalemia Hyperphosphatemia Replace electrolytes as clinically indicated AM labs pending. Last potassium 3 2 MSK: PT/OT evaluate and treat Access - Left IJ CVL day 4 Prophylaxis - GI -Protonix drip - DVT - SCD/pharmacological prophylaxis contraindicated with GI bleed Overall impression: Critically ill with ventilator dependent respiratory failure. Unable to wean ventilator; made difficult due to depressed LV function and diastolic compliance issues. Adequately diuresed. Critical Care 36 mins Jerzy Snowden MD Aug 30, 2016 13:15
[2016-08-30] MEDS ORDERED: POTASSIUM CHLOR 20 MEQ PREMIX 100 ML IV PRN (15:30)
[2016-08-30] MEDS ORDERED: POTASSIUM PHOSPHATE MONOBASIC 500 MG TAB PO PRN (15:30)
[2016-08-30] MEDS ORDERED: FUROSEMIDE 40 MG/4 ML VIAL IV PUSH ONE ×2 (15:30→22:00)
[2016-08-30] MEDS ORDERED: MAGNESIUM OXIDE 400 MG TAB PO PRN (15:30)
[2016-08-30] MEDS ORDERED: POTASSIUM PHOSPHATE MONOBASIC 500 MG TAB PO/TUBE PRN (15:30)
[2016-08-30] MEDS ORDERED: MAGNESIUM SULFATE INJ 4 GM in SODIUM CHLORIDE 0.9% INJ 92 ML IV PRN (15:30)
[2016-08-30] MEDS ORDERED: POTASSIUM CHLORIDE INJ 20 MEQ in DEXTROSE 5% IN WATE 1000ML INJ 1,000 ML IV SCH ×2 (15:30)
[2016-08-30] MEDS ORDERED: SODIUM PHOSPHATE INJ 30 MMOL in SODIUM CHLOR 0.9% 250 ML INJ 240 ML IV PRN (15:30)
[2016-08-30] MEDS ORDERED: DEXTROSE 5% IN WATE 1000ML INJ 1,000 ML IV SCH (16:00)
[2016-08-30] MEDS: POTASSIUM PHOSPHATE INJ 30 MMOL in SODIUM CHLOR 0.9% 250 ML INJ 250 ML IV PRN (16:24)
[2016-08-30] MEDS ORDERED: D5W + KCL 20 MEQ INJ 1,000 ML IV SCH (17:00)
[2016-08-30] MEDS: D5W + KCL 20 MEQ INJ 1,000 ML IV SCH (17:57)
[2016-08-30] MEDS: LABETALOL HCL 100 MG/20 ML VIAL IV PUSH PRN (18:06)
[2016-08-30 18:38] LABS: BLOOD GAS BASE EXCESS -0.5 mmol/L (-2-2); BLOOD GAS CARBOXYHEMOGLOBIN 1.4 % (0-4); BLOOD GAS HCO3 25 mmol/L (22-26); BLOOD GAS METHEMOGLOBIN 0.9 % (0-2); BLOOD GAS O2 HGB SATURATION 93 % (90-100); BLOOD GAS OXYGEN CONTENT 11.7 Vol % (12.0-20.0); BLOOD GAS PCO2 54 mmHg (38-42); BLOOD GAS PO2 84 mmHg (61-120); BLOOD GAS TOTAL HGB 8.9 G/DL (12.0-16.0); TEMP CORR TO 98.6
[2016-08-30 18:39] LABS: CRITICAL VALUE YES; DRAW SITE RT RADIAL; FIO2 50 %; LITER FLOW 6 L/M; NUMBER OF ARTERIAL PUNCTURES 1; OXYGEN DEVICE Venti Mask; STAT YES; ULNAR PULSE PRESENT
[2016-08-30] MEDS ORDERED: SUCCINYLCHOLINE CHLORIDE 200 MG/10 ML VIAL ONE (18:55)
[2016-08-30] MEDS ORDERED: ETOMIDATE 40 MG/20 ML VIAL ONE (18:55)
[2016-08-30] MEDS ORDERED: PROPOFOL 1000 MG/100 ML INJ 100 ML ONE (19:07)
--- NOTE | 2016-08-30 19:35 | PD.PROCEDR ---
Procedure Note Procedure Procedure: Endotracheal intubation Preop diagnosis: Acute respiratory failure, advanced COPD, aspiration pneumonia Postop diagnosis: Same Indication: Increased work of breathing with impending respiratory arrest Sedation used: Etomidate 25 mg, fentanyl 200 mcg, succinylcholine 150 mg IV Procedure: Patient was preoxygenated with 100% oxygen via Ambu bag with bag mask ventilation, following induction of sedation and neuromuscular blockade, laryngoscopy was performed using a glide scope with good visualization of vocal cords. An 8 Burmese ET tube was passed through the vocal cords under visualization up to the 23 centimeter ye and after inflating cuff of ET tube, correct placement was confirmed using bagging with good color change on CO2 detector, 5 point auscultation and chest rise with ventilation. Patient was connected to mechanical ventilation. Patient tolerated the procedure well with no immediate complications noted. Postprocedure chest x-ray was ordered. Blair Espinoza MD Aug 30, 2016 19:34
--- NOTE | 2016-08-30 20:08 | RADRPT ---
EXAM DATE/TIME: 08/30/2016 19:53 [place] COMPARISON: CHEST SINGLE AP, August 30, 2016, 5:00. INDICATIONS : Post intubation. MEDICAL HISTORY : Hypertension. Chronic obstructive pulmonary disease. SURGICAL HISTORY : None. ENCOUNTER: Initial ACUITY: 1 day PAIN SCORE: Non-responsive. LOCATION: Bilateral chest FINDINGS: Mild bibasilar consolidation with small right and [id number] left pleural effusions. No pneumo thorax. Heart size stable, within normal limits. Endotracheal tube tip is approximately 4.6 cm above the michele. Left internal jugular central venous catheter again seen, tip in the superior vena cava. There is a nasogastric tube coursing into the sto mach. CONCLUSION: 1. Endotracheal tube tip is approximately 4.6 cm above the michele. 2. Other lines and tubes unchanged. 3. Mild bibasilar consolidation and bilateral effusions again noted not significantly changed. Lex Lopez MD on August 30, 2016 at 20:05 Board Certified Radiologist. This report was verified electronically.
[2016-08-30] MEDS: PROPOFOL 1000 MG/100 ML INJ 100 ML IV SCH (21:28)
[2016-08-30 23:28] LABS: BLOOD GAS BASE EXCESS 1.6 mmol/L (-2-2); BLOOD GAS CARBOXYHEMOGLOBIN 1.6 % (0-4); BLOOD GAS HCO3 26 mmol/L (22-26); BLOOD GAS METHEMOGLOBIN 0.5 % (0-2); BLOOD GAS O2 HGB SATURATION 95 % (90-100); BLOOD GAS OXYGEN CONTENT 11.5 Vol % (12.0-20.0); BLOOD GAS PCO2 45 mmHg (38-42); BLOOD GAS PO2 90 mmHg (61-120); BLOOD GAS TOTAL HGB 8.5 G/DL (12.0-16.0); CRITICAL VALUE YES; TEMP CORR TO 98.6
[2016-08-30 23:29] LABS: DRAW SITE LT RADIAL; NUMBER OF ARTERIAL PUNCTURES 1; STAT NO; ULNAR PULSE Y
[2016-08-31] VITALS (18 sets, daily range): BP systolic 141–156; BP diastolic 67–96; PULSE 66–99; RESP 16–22; TEMP 97.5–98.2; O2SAT 95–100
[2016-08-31] MEDS: RESP: ALBUTEROL 2.5 MG/IPRATROPIUM 0.5 MG NEB (SCH) NEB ×7 (00:04→23:49)
[2016-08-31] MEDS: PANTOPRAZOLE INJ 80 MG in SODIUM CHLORIDE 0.9% INJ 100 ML IV SCH ×3 (00:37→17:04)
--- NOTE | 2016-08-31 01:34 | HHI.CCPN ---
Subjective Remarks/Hospital Course 08/24: 71 Year-old male with a medical history significant for COPD on home oxygen who was recently admitted with suspected sepsis/H And was initiated on IV antibiotics and steroids. He had recently been evaluated by GI and underwent EGD on 08/10/2016 and was found to have moderate esophagitis, mild gastritis with pathology subsequently showing Ashley esophagitis as well as colonoscopy on 08/11/2016 with polypectomy and ablation of polyp in ascending colon with hot snare. Patient has been dealing with constipation since his admission. Today when he was trying to have a bowel movement he suddenly became less responsive and then had a large emesis which resulted in aspiration and hemodynamic collapse. Patient initially had large volume emesis with dark maroon blood. CODE BLUE cardiac arrest code was activated. On my arrival patient was in bed CPR had been initiated. Significant gastric contents was still being suctioned out of his oral cavity. ACLS protocol was continued. Patient was intubated following vigorous suctioning of gastric contents from oral cavity as well as with placement of NG tube which is hooked up to suction and about 1.5 L of gastric contents being suctioned out which appeared to be dark maroon in color. Patient initially had a pulse when CODE BLUE was called and subsequently went in PEA arrest followed by asystole during ACLS and then V. fib for which he was defibrillated with 200 J 1, CPR/ACLS protocol was continued and patient eventually had return of spontaneous circulation after about 15 minutes of CPR/ACLS. Patient was transferred to [facility] and placed on mechanical ventilation. I emergently placed left femoral central line for central vascular access and he was started on Levophed for pressor support. 2 units of O- 1 crossmatch blood were ordered and transfused stat. He also received 1 L of normal saline bolus following return of spontaneous circulation. Stat labs were ordered. His hemoglobin on ABG done post resuscitation was 5.6. I did order Protonix 80 mg IV stat followed by 8 mg per hour IV infusion. Patient remained encephalopathic though was minimally responsive following transfer to the ICU. GI consult was requested and I spoke with Dr. Zamarripa at bedside on his arrival. History was obtained by reviewing records, discussion with family/ GI as well as nursing staff. According to patient's daughter he has not been doing well for the last few months in terms of his breathing and has been using his home oxygen more often. He gets extremely short of breath even with the least exertion. 08/25: Remains encephalopathic/ sedated, orally intubated on [facility] ventilation. Transiently off levophed last night however back to 11 mcg/min currently. Hgb up to 9.4 following 4 units PRBCs transfused last night. 08/26: Tmax 99. Some unresponsive on the ventilator. CT abdomen/pelvis less than revealed small bowel obstruction at site of ventral hernia. No further bleeding noted. Gastric output approximately 700 cc. No bowel movement. 08/27: Tmax 99.7. Currently afebrile. Positive BM overnight approximately 1 L according to RN. No blood noted. 100 cc from gastric tube overnight. Hemoglobin corrected a properly. Likely dilutional. Noted fungemia currently issue. Opens eyes to voice. 08/28: Tmax 99.1. No BMs overnight. Minimal gastric tube output. Hemoglobin stable 9.5. Opens eyes to voice. Not following commands. Appears with singultus this morning. Subjective 08/29: 20 beat run of wide complex tachycardia overnight. Noted potassium 3.2. This is been replaced. We'll recheck this afternoon. Circuit exchange yesterday. Patient tolerating pressure control ventilation much better than PRVC/AC ventilation is low probably VQ scan. Less FiO2 requirements. No BM past 24 hour. 08/30: Unable to wean ventilator. 08/31: Patient was extubated on 08/30 however became tachypneic with use of accessory muscles of respiration and required reintubation around 6:30 PM last night and was placed back on mechanical ventilation. Currently sedated, orally intubated on mechanical ventilation. Post intubation chest x-ray suggested fluid overload for which she was given Lasix 40 mg IV with good response having made about 2.5 L urine the last 7 hours. Objective Vital Signs Date Time Temp Pulse Resp B/P Pulse Ox O2 Delivery O2 Flow Rate FiO2 08/31/16 00:44 97 50 08/30/16 18:00 115 08/30/16 16:00 98.4 31 142/87 08/30/16 15:50 Nasal Cannula 5.00 Intake and Output 08/30/16 08/30/16 08/31/16 08:00 16:00 00:00 Intake Total 1200 ml 1300 ml Output Total 800 ml 825 ml Balance 400 ml 475 ml Result Diagram: 3/12/17 0520 3/12/17 0520 Other Results Laboratory Tests Test 08/30/16 08/30/16 08/30/16 05:20 18:28 23:20 White Blood Count 21.2 TH/MM3 Red Blood Count 2.62 MIL/MM3 Hemoglobin 8.0 GM/DL Hematocrit 23.5 % Mean Corpuscular Volume 89.6 FL Mean Corpuscular Hemoglobin 30.4 PG Mean Corpuscular Hemoglobin 34.0 % Concent Red Cell Distribution Width 16.5 % Platelet Count 105 TH/MM3 Mean Platelet Volume 9.1 FL Neutrophils (%) (Auto) 93.7 % Lymphocytes (%) (Auto) 1.8 % Monocytes (%) (Auto) 4.3 % Eosinophils (%) (Auto) 0.1 % Basophils (%) (Auto) 0.1 % Neutrophils # (Auto) 19.9 TH/MM3 Lymphocytes # (Auto) 0.4 TH/MM3 Monocytes # (Auto) 0.9 TH/MM3 Eosinophils # (Auto) 0.0 TH/MM3 Basophils # (Auto) 0.0 TH/MM3 CBC Comment AUTO DIFF Differential Total Cells 100 Counted Neutrophils % (Manual) 91 % Band Neutrophils % 4 % Monocytes % 2 % Neutrophils # (Manual) 20.8 TH/MM3 Myelocytes 3 % Nucleated Red Blood Cells 1 /100 WBC Differential Comment FINAL DIFF MANUAL Platelet Estimate LOW Platelet Morphology Comment NORMAL Keratocytes OCC Sodium Level 156 MEQ/L Potassium Level 3.5 MEQ/L Chloride Level 119 MEQ/L Carbon Dioxide Level 25.3 MEQ/L Anion Gap 12 MEQ/L Blood Urea Nitrogen 60 MG/DL Creatinine 1.90 MG/DL Estimat Glomerular Filtration 35 ML/MIN Rate Random Glucose 248 MG/DL Calcium Level 8.3 MG/DL Phosphorus Level 1.9 MG/DL Magnesium Level 1.7 MG/DL Total Bilirubin 0.5 MG/DL Aspartate Amino Transf 24 U/L (AST/SGOT) Alanine Aminotransferase 34 U/L (ALT/SGPT) Alkaline Phosphatase 133 U/L Total Protein 4.8 GM/DL Albumin 1.7 GM/DL Blood Gas Puncture Site RT RADIAL LT RADIAL Blood Gas Patient Temperature 98.6 98.6 Blood Gas HCO3 25 mmol/L 26 mmol/L Blood Gas Base Excess -0.5 mmol/L 1.6 mmol/L Blood Gas Oxygen Saturation 93 % 95 % Arterial Blood pH 7.29 7.39 Arterial Blood Partial 54 mmHg 45 mmHg Pressure CO2 Arterial Blood Partial 84 mmHg 90 mmHg Pressure O2 Arterial Blood Oxygen Content 11.7 Vol % 11.5 Vol % Arterial Blood 1.4 % 1.6 % Carboxyhemoglobin Arterial Blood Methemoglobin 0.9 % 0.5 % Blood Gas Hemoglobin 8.9 G/DL 8.5 G/DL Oxygen Delivery Device Venti Mask Blood Gas Liter Flow 6 L/M Blood Gas Inspired Oxygen 50 % Blood Gas Ventilator Setting SEE COMMENT Imaging Last 24 hours Impressions Chest X-Ray 08/30/16 0600 Signed Impressions: Service Date/Time: Tuesday, August 30, 2016 05:00 - CONCLUSION: Increasing consolidation in the left mid and lower lung and increasing ill-defined opacity right lower lung suggesting either infiltrate or pleural effusion. Polo Saunders MD Last Impressions Lower Extremity Ultrasound 08/28/16 0000 Signed Impressions: Service Date/Time: Sunday, August 28, 2016 22:19 - CONCLUSION: 1. The study is negative for deep venous thrombosis bilateral lower extremity. 2. Distal thigh cystic lesion with arterial pattern of flow within the central lumen suggests possible aneurysm or pseudoaneurysm. 3. Stable large left popliteal cyst. Polo Saunders MD Chest X-Ray 08/28/16 0000 Signed Impressions: Service Date/Time: Sunday, August 28, 2016 13:08 - CONCLUSION: 1. Bibasilar consolidation and small effusions are slightly worse. 2. Nasogastric pulled back in the interim, tip near the GE junction currently. Lex Lopez MD Brain MRI 08/27/16 0000 Signed Impressions: Service Date/Time: August 15:13 - CONCLUSION: No evidence of acute infarct, hemorrhage, mass or edema. No findings to suggest significant anoxic injury. Kit Power MD Renal Ultrasound 08/25/16 0000 Signed Impressions: Service Date/Time: Wednesday, August 24, 2016 21:53 - CONCLUSION: 1. There is no hydronephrosis. Both kidneys demonstrate mild increased echotexture of the parenchyma suggesting medical renal disease. 2. Trace perihepatic free fluid and bilateral pleural effusions. Lex Malik MD Chest CT 08/25/16 0000 Signed Impressions: Service Date/Time: Thursday, August 25, 2016 21:20 - CONCLUSION: 1. Bilateral pneumonia and aspiration would be in the differential. There is dependent consolidation/atelectasis and small effusions of the bases as well. 2. Upper limits of normal to mildly enlarged mediastinal lymph nodes, most likely reactive. 3. Coronary artery calcification. 4. Right rib fractures, including acute fractures laterally of the third, fourth and fifth. There are old, healed fractures anteriorly of the right second and third ribs.. Lex Lopez MD Abdomen/Pelvis CT 08/25/16 0000 Signed Impressions: Service Date/Time: Thursday, August 25, 2016 20:20 - CONCLUSION: 1. Ventral hernia containing small bowel and with associated small bowel obstruction. The defect is broad; I believe the obstruction is probably related to scarring and/or adhesions within the hernia sac. I don't see a mass. 2. Distended stomach despite NG tube present. 3. Severe aortoiliac atherosclerosis. No aneurysm. Lex Lopez MD Abdomen X-Ray 08/24/16 0000 Signed Impressions: Service Date/Time: Wednesday, August 24, 2016 17:19 - CONCLUSION: 1. Small bowel dilatation which reflect ileus or obstruction. Followup examination is recommended if clinically indicated. Gareth Escalante MD Objective Remarks GENERAL: 71-year-old male, critically ill. SKIN: Warm and dry. No rash HEAD: Atraumatic. Normocephalic. EYES: Pupils equal and round about 2 mm bilaterally and reactive. ENT: No nasal bleeding or discharge. Mucous membranes pink and moist. NECK: Trachea midline. No JVD. Left IJ clean dry and intact CARDIOVASCULAR: Tachycardic, RR. S1, S2. No S4. Without murmur RESPIRATORY: Orally intubated on mechanical ventilation, scattered rhonchi bilaterally, no wheezing. Breath sounds equal bilaterally. GASTROINTESTINAL: Abdomen significant for easily reducible ventral hernia.. Hypoactive bowel sounds are appreciated. Dark brown output from NG tube MUSCULOSKELETAL: Extremities with 1+ upper and lower extremity peripheral edema. No obvious deformities. NEUROLOGICAL: Responds on the ventilator to physical stimulation. Currently sedated, orally intubated on mechanical ventilation. Opens eyes to voice. Withdraws to pain in all 4 extremities more left upper > right upper limb > bilateral lower extremities. Urinary Catheter: Yes Assessment to: Continue Vascular Central Line Catheter: Yes Assessment to: Continue Date of Insertion: Aug 26, 2016 Line: Central Venous Catheter Side: Left Location: Internal, Jugular A/P Assessment and Plan Neuro/Psych: Status post CPR 15 minutes - possible anoxic encephalopathy Depression NOS Follow neuro status. Propofol for sedation, daily sedation vacation Goal of RASS -2. Concern for anoxic encephalopathy following cardiac arrest. EEG 08/25 revealed mild to moderate encephalopathy. No epileptiform activity. MRI brain 08/27 revealed no acute findings. Holding trazodone 50 mg at night for depression Cardiovascular: Cardiac arrest status post CPR Elevated troponin History dyslipidemia History of hypertension PVD Systemic shock likely secondary to sepsis/aspiration/small bowel obstruction Possible pseudoaneurysm Off all vasopressors Currently D5W at 40 cc an hour. Diurese with Lasix Continue Cardizem at 30 mg 4 times a day since blood pressures normalized. Not on any lipid-lowering agents at home. Cardiac arrest status post CPR. s/p aggressive fluid resuscitation. 5 units PRBCs transfused. To date minimal troponin elevation following cardiac arrest noted. Echo 2D revealed EF 35-40%. Moderate LVH. Mitral valve calcified. Mild TR. IR consultation for occlusion of pseudoaneurysm Pulmonary: Acute respiratory failure secondary to aspiration pneumonia End-stage COPD. Oxygen dependent FEV1 28%, FVC 1.6. PRVC 16/550/5/50 Duo nebs every 4 hours and as needed, At home on Symbicort 160/4.5 twice a day and duo nebs 4 times a day Switched to Pulmicort twice a day Currently on Solu-Medrol 40 mEq IV every 8 hours. Wean Titrate FiO2 down provided O2 sat greater than 90%. CT chest revealed small pleural effusions bilaterally with likely aspiration VQ scan low probability Diurese with Lasix. Spontaneous breathing trials when clinically indicated GI/liver: History of ventral hernia Hypokalemia Resume tube feeds after repeat EGD which is scheduled for 08/31 Protonix 80 mg IV bolus followed by 8 mg/h IV infusion. GI following EGD revealed 25 cm proximal esophagus with possible bleeding. Rule out aorto esophageal fistula. Dr. roberts/general surgery evaluated. Does not believe abdomen surgical the present time. GI. Small bowel obstruction Upper GI bleed plus esophageal rule out aorto esophageal fistula History of Ashley esophagitis History of colonic polyps History of ventral hernia status post repair last by Dr. Roberts CT abdomen/pelvis the sesamoid revealed small bowel obstruction level but hernia. Severe aortoiliac disease. Dr. roberts/general surgery evaluated. Very poor surgical candidate this time. EGD 08/25 revealed esophageal nipple. Clots noted within the gastric contents without active bleeding. Recommended CTA rule out aorto esophageal fistula however cannot perform due to elevated creatinine. Hemoglobin appears stable. Gilles if continues upper GI bleed Resumed NG tube feeds after EGD in a.m. Renal/: Acute kidney injury History of bladder outlet obstruction IV hydration, strict intake output, monitor and replete electro lites, follow BUN creatinine. Currently holding Flomax 0.4 mg daily No hydronephrosis on CT abdomen/pelvis Negative urine eosinophils. ID: UTI Sepsis Fungemia Repeat blood and sputum cultures, UA and urine cultures have indicated. Appreciate ID consult with worsening leukocytosis and septic shock Empiric antibiotic coverage with IV vancomycin and Zosyn to be continued. IV Diflucan started by GI for Ashley esophagitis. Started on IV micafungin 08/26 secondary to yeast in blood. Pertinent cultures 08/28 - blood from central line -no growth 08/27 -arterial line blood - pending 08/26 - sputum -Serratia 08/25 - blood cultures 2 -Ashley 08/25 - urine -no growth 08/22 - blood cultures 2 - no growth 08/21 - urine - no growth 08/20 - blood cultures 2 - 1 out of 4 staph epi Endocrine: Chronic prednisone use secondary to COPD SSI for glycemic control as needed. Currently on Solu-Medrol 40 mg IV every 8 hours Heme: Acute blood loss anemia History of prostate cancer Leukocytosis Status post 4 units PRBCs ands 2 units FFP on 08/24. Given one unit PRBCs 08/26 Follow CBC and coags. FEN: Hypokalemia Hyperphosphatemia Replace electrolytes as clinically indicated AM labs pending. MSK: PT/OT evaluate and treat Access - Left IJ CVL day 5 Prophylaxis - GI -Protonix drip - DVT - SCD/pharmacological prophylaxis contraindicated with GI bleed Overall impression: Critically ill with ventilator dependent respiratory failure. Unable to wean ventilator; made difficult due to depressed LV function and diastolic compliance issues. Continue diuresis Critical Care 35 mins Blair Espinoza MD Aug 31, 2016 01:34
[2016-08-31] MEDS ORDERED: POTASSIUM CHLOR 40 MEQ PREMIX 100 ML IV ONE (01:45)
[2016-08-31] MEDS: PIPERACIL-TAZO 3.375 GM PREMIX 50 ML IV SCH ×4 (03:37→20:23)
[2016-08-31] MEDS: methylPREDNISolone SOD SUCC 40 MG/1 ML VIAL IV PUSH SCH ×3 (03:37→17:04)
[2016-08-31] MEDS: FUROSEMIDE 40 MG/4 ML VIAL IV PUSH SCH ×3 (05:53→22:20)
[2016-08-31] MEDS: PROPOFOL 1000 MG/100 ML INJ 100 ML IV SCH ×4 (05:53→20:23)
[2016-08-31 06:26] LABS: AUTOMATED NEUTROPHIL # 16.6 TH/MM3 (1.8-7.7); BASOPHIL % 0.2 % (0.0-2.0); HEMATOCRIT 25.8 % (39.0-51.0); LYMPH % 2.6 % (9.0-44.0); LYMPHOCYTE # 0.5 TH/MM3 (1.0-4.8); MEAN CELL VOLUME 89.8 FL (80.0-100.0); MEAN CORPUSCULAR HGB CONC 33.4 % (32.0-36.0); MONO % 2.4 % (0.0-8.0); NEUT % 94.8 % (16.0-70.0); PLATELET COUNT 126 TH/MM3 (150-450); RED BLOOD COUNT 2.88 MIL/MM3 (4.50-5.90); RED CELL DISTRIBUTION WIDTH 16.8 % (11.6-17.2); WHITE BLOOD COUNT 17.5 TH/MM3 (4.0-11.0)
[2016-08-31 06:29] LABS: HEMO FLAGS AUTO DIFF
[2016-08-31 07:20] LABS: ALKALINE PHOSPHATASE 119 U/L (45-117); ALT (GPT) 37 U/L (12-78); ANION GAP 10 MEQ/L (5-15); AST (GOT) 25 U/L (15-37); BICARBONATE 28.8 MEQ/L (21.0-32.0); BLOOD UREA NITROGEN 56 MG/DL (7-18); CHLORIDE 116 MEQ/L (98-107); GLOMERULAR FILTRATION RATE 40 ML/MIN (>89); MAGNESIUM 1.5 MG/DL (1.5-2.5); POTASSIUM 3.6 MEQ/L (3.5-5.1); SODIUM (NA) 155 MEQ/L (136-145); TOTAL BILIRUBIN ADULT 0.9 MG/DL (0.2-1.0)
[2016-08-31] MEDS: hydrALAZINE HCL 20 MG/ML VIAL IV PUSH PRN (07:31)
[2016-08-31] MEDS: SODIUM CHLORIDE 0.9% FLUSH 5 ML FLUSH IVF SCH (07:32)
[2016-08-31 07:45] LABS: BANDS 3 % (0-6); METAMYELOCYTES 2 % (0-1); NEUTROPHIL # MANUAL DIFF 16.5 TH/MM3 (1.8-7.7); POLYS (SEG NEUTROPHILS) 89 % (16-70); WBC DIFF SAMPLE 100
[2016-08-31 07:47] LABS: PLATELET ESTIMATE SMEAR LOW (NORMAL); PLATELET MORPHOLOGY NORMAL (NORMAL); SCAN/DIFF FINAL DIFF MANUAL
[2016-08-31] MEDS: DILTIAZEM HCL 30 MG TAB PO SCH ×4 (08:02→20:23)
[2016-08-31] MEDS: MULTIVITAMIN TAB PO SCH (08:02)
[2016-08-31] MEDS: RESP: BUDESONIDE 0.5 MG/2 ML NEB NEB SCH ×2 (08:03→19:48)
[2016-08-31] MEDS: MAGNESIUM SULFATE INJ 2 GM in SODIUM CHLORIDE 0.9% INJ 96 ML IV PRN (08:03)
[2016-08-31] MEDS: MICAFUNGIN INJ 100 MG in SODIUM CHLORIDE 0.9% INJ 100 ML IV SCH (12:40)
--- NOTE | 2016-08-31 14:25 | HHI.IDPN ---
Subjective Subjective Remarks ID Xcover for . Delayed entry patient seen at 1 pm ~ is a 71 y/o CM with COPD and oxygen dependent, Ashley esophagitis, prior h/o pneumonia. According to the since the patient was discharged he continued to have nausea and vomiting. He has not had any bowel movement, and she thinks in the last 3 weeks. Patient started having more weakness, and was getting more short of breath, so the patient presented back to the hospital and was admitted August 20. He was admitted as a COPD exacerbation and pneumonia. He was put on empiric antibiotics. Patient had in hospital cardiorespiratory arrest. He was successfully resuscitated, and intubated. Patient had an A- line in arm, CL in groin which was changed on 08/27/16. 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 Patient continues to have elevated WBC, and is being treated for sepsis secondary to aspiration PNA, Fungemia likely line related (groin line likely now DCed). Notes reviewed Discussed with RN Reintubated this am for respiratory distress. When extubated was following some commands and moving extremities. Patient is afebrile Sedated on the vent Off pressors. US groin for possible pseudoaneurysm being considered. RN reports loose BMs, will check Cdiff. Antibiotics Zosyn IV (aspiration PNA) IV Micafungin (for fungal line infection) Lines L I J central line Past Medical History Hypertension COPD O2 dependent prostate cancer Bladder outlet obstruction Hyperlipidemia Past Surgical History Ventral hernia Appendectomy Perforated gastric ulcer surgery Cataract Upper and lower endoscopy Allergies: Coded Allergies: *MDRO Multi-Drug Resistant Organism (Verified Adverse Reaction, Unknown, ) MRSA (abdominal wound) 2015 per 04/10/2015 H&P MRSA PCR Screen #1 NEGATIVE - 08/21/16 Objective . Vital Signs Date Time Temp Pulse Resp B/P Pulse Ox O2 Delivery O2 Flow Rate FiO2 08/31/16 14:00 84 08/31/16 12:00 74 08/31/16 12:00 98.0 74 22 144/67 100 08/31/16 11:54 100 40 08/31/16 10:00 85 08/31/16 08:06 100 Ventilator 40 08/31/16 08:06 96 40 08/31/16 08:00 99 08/31/16 08:00 97.7 99 22 152/84 95 08/31/16 07:00 96 Mechanical Ventilator 50 08/31/16 06:00 74 08/31/16 06:00 74 08/31/16 04:16 100 40 08/31/16 04:00 97.5 68 19 156/96 99 08/31/16 04:00 68 08/31/16 02:00 72 08/31/16 00:44 97 50 08/31/16 00:00 66 08/31/16 00:00 97.8 66 16 141/84 97 08/30/16 22:00 70 08/30/16 21:00 99 50 08/30/16 20:00 97.7 69 16 108/61 94 08/30/16 20:00 69 08/30/16 19:15 99 50 08/30/16 19:00 99 Mechanical Ventilator 50 08/30/16 18:00 115 08/30/16 16:00 98.4 103 31 142/87 92 08/30/16 16:00 103 08/30/16 15:50 92 Nasal Cannula 5.00 08/30/16 15:50 96 Nasal Cannula 5 08/30/16 15:50 96 Nasal Cannula 5.00 08/30/16 08/30/16 08/31/16 15:00 23:00 07:00 Intake Total 1300 ml 860 ml 473 ml Output Total 825 ml 2550 ml 1450 ml Balance 475 ml -1690 ml -977 ml IV Total 600 ml 830 ml 473 ml Tube Feeding 300 ml 0 ml 0 ml Tube Irrigant 400 ml 30 ml 0 ml Output Urine Total 825 ml 2500 ml 1400 ml Gastric Drainage Total 50 ml 50 ml # Bowel Movements 2 3 2 . Laboratory Tests Test 08/30/16 08/31/16 05:20 06:00 White Blood Count 21.2 TH/MM3 17.5 TH/MM3 Red Blood Count 2.62 MIL/MM3 2.88 MIL/MM3 Hemoglobin 8.0 GM/DL 8.6 GM/DL Hematocrit 23.5 % 25.8 % Mean Corpuscular Volume 89.6 FL 89.8 FL Mean Corpuscular Hemoglobin 30.4 PG 30.0 PG Mean Corpuscular Hemoglobin 34.0 % 33.4 % Concent Red Cell Distribution Width 16.5 % 16.8 % Platelet Count 105 TH/MM3 126 TH/MM3 Mean Platelet Volume 9.1 FL 9.0 FL Neutrophils (%) (Auto) 93.7 % 94.8 % Lymphocytes (%) (Auto) 1.8 % 2.6 % Monocytes (%) (Auto) 4.3 % 2.4 % Eosinophils (%) (Auto) 0.1 % 0.0 % Basophils (%) (Auto) 0.1 % 0.2 % Neutrophils # (Auto) 19.9 TH/MM3 16.6 TH/MM3 Lymphocytes # (Auto) 0.4 TH/MM3 0.5 TH/MM3 Monocytes # (Auto) 0.9 TH/MM3 0.4 TH/MM3 Eosinophils # (Auto) 0.0 TH/MM3 0.0 TH/MM3 Basophils # (Auto) 0.0 TH/MM3 0.0 TH/MM3 CBC Comment AUTO DIFF AUTO DIFF Differential Total Cells 100 100 Counted Neutrophils % (Manual) 91 % 89 % Band Neutrophils % 4 % 3 % Monocytes % 2 % 2 % Neutrophils # (Manual) 20.8 TH/MM3 16.5 TH/MM3 Myelocytes 3 % Nucleated Red Blood Cells 1 /100 WBC Differential Comment FINAL DIFF FINAL DIFF MANUAL MANUAL Platelet Estimate LOW LOW Platelet Morphology Comment NORMAL NORMAL Keratocytes OCC Lymphocytes % 4 % Metamyelocytes 2 % Laboratory Tests Test 08/29/16 08/30/16 08/31/16 23:00 05:20 06:00 Sodium Level 154 MEQ/L 156 MEQ/L 155 MEQ/L Potassium Level 3.3 MEQ/L 3.5 MEQ/L 3.6 MEQ/L Chloride Level 118 MEQ/L 119 MEQ/L 116 MEQ/L Carbon Dioxide Level 27.4 MEQ/L 25.3 MEQ/L 28.8 MEQ/L Anion Gap 9 MEQ/L 12 MEQ/L 10 MEQ/L Blood Urea Nitrogen 62 MG/DL 60 MG/DL 56 MG/DL Creatinine 1.95 MG/DL 1.90 MG/DL 1.70 MG/DL Estimat Glomerular Filtration 34 ML/MIN 35 ML/MIN 40 ML/MIN Rate Random Glucose 249 MG/DL 248 MG/DL 184 MG/DL Calcium Level 7.9 MG/DL 8.3 MG/DL 8.2 MG/DL Phosphorus Level 1.8 MG/DL 1.9 MG/DL 3.9 MG/DL Magnesium Level 1.8 MG/DL 1.7 MG/DL 1.5 MG/DL Total Bilirubin 0.5 MG/DL 0.5 MG/DL 0.9 MG/DL Aspartate Amino Transf 25 U/L 24 U/L 25 U/L (AST/SGOT) Alanine Aminotransferase 34 U/L 34 U/L 37 U/L (ALT/SGPT) Alkaline Phosphatase 140 U/L 133 U/L 119 U/L Total Protein 4.9 GM/DL 4.8 GM/DL 5.4 GM/DL Albumin 1.6 GM/DL 1.7 GM/DL 1.9 GM/DL B-Type Natriuretic Peptide 2444 PG/ML Imaging Chest X-Ray 08/27/16 0600 Signed Impressions: Service Date/Time: August 02:27 - CONCLUSION: 1. Patchy bilateral airspace disease with improving aeration/decreasing effusions in the bases bilaterally. 2. Stable position of life support tubes. Con Valdes MD Chest X-Ray 08/26/16 075 Signed Impressions: Service Date/Time: Friday, August 26, 2016 08:14 - CONCLUSION: Left IJ central line distal tip in the SVC. No pneumothorax is visualized. There is a stable appearance the lungs with bilateral airspace consolidation. Lex Malik MD Chest X-Ray 08/26/16 06 Signed Impressions: Service Date/Time: Friday, August 26, 2016 04:01 - CONCLUSION: 1. Worsening bibasilar effusions/atelectasis with diffuse interstitial edema, all characteristic of CHF. 2. Endotracheal tube remains appropriately positioned above the michele Con Vlades MD Chest X-Ray 08/26/164 Signed Impressions: Service Date/Time: Friday, August 26, 2016 08:14 - CONCLUSION: Left IJ central line distal tip in the SVC. No pneumothorax is visualized. There is a stable appearance the lungs with bilateral airspace consolidation. Lex Malik MD Renal Ultrasound 08/25/16 0000 Signed Impressions: Service Date/Time: Wednesday, August 24, 2016 21:53 - CONCLUSION: 1. There is no hydronephrosis. Both kidneys demonstrate mild increased echotexture of the parenchyma suggesting medical renal disease. 2. Trace perihepatic free fluid and bilateral pleural effusions. Lex Malik MD Chest CT 08/25/16 0000 Signed Impressions: Service Date/Time: Thursday, August 25, 2016 21:20 - CONCLUSION: 1. Bilateral pneumonia and aspiration would be in the differential. There is dependent consolidation/atelectasis and small effusions of the bases as well. 2. Upper limits of normal to mildly enlarged mediastinal lymph nodes, most likely reactive. 3. Coronary artery calcification. 4. Right rib fractures, including acute fractures laterally of the third, fourth and fifth. There are old, healed fractures anteriorly of the right second and third ribs.. Lex Lopez MD Abdomen/Pelvis CT 08/25/16 0000 Signed Impressions: Service Date/Time: Thursday, August 25, 2016 20:20 - CONCLUSION: 1. Ventral hernia containing small bowel and with associated small bowel obstruction. The defect is broad; I believe the obstruction is probably related to scarring and/or adhesions within the hernia sac. I don't see a mass. 2. Distended stomach despite NG tube present. 3. Severe aortoiliac atherosclerosis. No aneurysm. Lex Lopez MD Abdomen X-Ray 08/24/16 0000 Signed Impressions: Service Date/Time: Wednesday, August 24, 2016 17:19 - CONCLUSION: 1. Small bowel dilatation which reflect ileus or obstruction. Followup examination is recommended if clinically indicated. Gareth Escalante MD Physical Exam GENERAL: Sedated and intubated, not in distress SKIN: Warm and dry. No generalized rash or ecchymosis. HEAD: Atraumatic. Normocephalic. No temporal or scalp tenderness. EYES: Pale conjunctivae, no petechia or hemorrhage. Pupils equal round and reactive. No scleral icterus. No injection or drainage. ENT: Nose without bleeding, purulent drainage. Has endotracheal tube in the mouth. NGT in place NECK: Trachea midline. No JVD or lymphadenopathy. Supple. LIJ TLC looks ok CARDIOVASCULAR: Regular rate and rhythm without murmurs, gallops, or rubs. RESPIRATORY: Decreased breath sounds throughout both lung garcia. GASTROINTESTINAL: Abdomen soft, with protuberance in middle, this is an incisional hernia. No reaction to deep palpation. Has midline scar. Bowel sounds are hypoactive, no guarding. MUSCULOSKELETAL: Extremities without clubbing, cyanosis. Developing ne pedal edema. NEUROLOGICAL: Sedated PSYCH: Unable to assess LINE: LIJ TLC no evidence of infection. Assessment & Plan Remarks IMPRESSION Sepsis present on admission and then sepsis again. Central line associated blood stream infection (CLABSI) related fungemia ( likely groin line) now discontinued. Arterial line discontinued as well. Aspiration Pneumonia: Serratia marcescens. Possible pulm edema. Diarrhea ? Cdiff vs antibiotic associated. Status post cardiorespiratory arrest, likely aspirated Findings SBO within th hernia on CT A/P Acute respiratory failure on vent. GI bleed Leukocytosis, worsening, most likely multifactorial, fungemia, due to acute GI bleed as well as aspiration and arrest COPD, oxygen dependent Previous GI bleed with workup showing gastritis, Ashley esophagitis, and polyps Large incisional ventral hernia Bladder outlet obstruction, currently has a Hammond Renal insufficiency RECOMMENDATION Continue Micafungin IV (C.glabrata fungemia) Continue Zosyn IV (for aspiration PNA) Follow cultures Follow CBC, CMP. Check Cdiff PCR in view of diarrhea and leucocytosis. Monitor progress Will hold off on Opthalm consult to r/o fungal endopthalmitis patient just reintubated today. 2D ECHO with no vegetation. If persistent fungemia will consider CRISTHIAN. If has a pseudoaneusym at site of femoral line will likely treat for 4 weeks with antifungal. D/W RN. Ninoska Espinoza MD Aug 31, 2016 14:25
--- NOTE | 2016-08-31 16:13 | HHI.GIFU ---
Subjective Remarks Several bowel movements today, still on vent (Rivka Koehler) Objective Vitals I&O Vital Signs Date Time Temp Pulse Resp B/P Pulse Ox O2 Delivery O2 Flow Rate FiO2 08/31/16 14:00 84 08/31/16 12:00 74 08/31/16 12:00 98.0 74 22 144/67 100 08/31/16 11:54 100 40 08/31/16 10:00 85 08/31/16 08:06 100 Ventilator 40 08/31/16 08:06 96 40 08/31/16 08:00 99 08/31/16 08:00 97.7 99 22 152/84 95 08/31/16 07:00 96 Mechanical Ventilator 50 08/31/16 06:00 74 08/31/16 06:00 74 08/31/16 04:16 100 40 08/31/16 04:00 97.5 68 19 156/96 99 08/31/16 04:00 68 08/31/16 02:00 72 08/31/16 00:44 97 50 08/31/16 00:00 66 08/31/16 00:00 97.8 66 16 141/84 97 08/30/16 22:00 70 08/30/16 21:00 99 50 08/30/16 20:00 97.7 69 16 108/61 94 08/30/16 20:00 69 08/30/16 19:15 99 50 08/30/16 19:00 99 Mechanical Ventilator 50 08/30/16 18:00 115 I/O 08/30/16 08/30/16 08/30/16 08/31/16 08/31/16 08/31/16 07:00 15:00 23:00 07:00 15:00 23:00 Intake Total 1200 ml 1300 ml 860 ml 473 ml 628 ml Output Total 800 ml 825 ml 2550 ml 1450 ml 2925 ml Balance 400 ml 475 ml -1690 ml -977 ml -2297 ml IV Total 525 ml 600 ml 830 ml 473 ml 568 ml Tube Feeding 275 ml 300 ml 0 ml 0 ml Tube Irrigant 400 ml 400 ml 30 ml 0 ml 60 ml Output Urine Total 800 ml 825 ml 2500 ml 1400 ml 2875 ml Gastric Drainage Total 0 ml 50 ml 50 ml 50 ml # Bowel Movements 2 2 3 2 2 Laboratory Laboratory Tests Test 08/30/16 08/30/16 08/31/16 18:28 23:20 06:00 Blood Gas Puncture Site RT RADIAL LT RADIAL Blood Gas Patient Temperature 98.6 98.6 Blood Gas HCO3 25 26 Blood Gas Base Excess -0.5 1.6 Blood Gas Oxygen Saturation 93 95 Arterial Blood pH 7.29 7.39 Arterial Blood Partial 54 45 Pressure CO2 Arterial Blood Partial 84 90 Pressure O2 Arterial Blood Oxygen Content 11.7 11.5 Arterial Blood 1.4 1.6 Carboxyhemoglobin Arterial Blood Methemoglobin 0.9 0.5 Blood Gas Hemoglobin 8.9 8.5 Oxygen Delivery Device Venti Mask Blood Gas Liter Flow 6 Blood Gas Inspired Oxygen 50 Blood Gas Ventilator Setting SEE COMMENT White Blood Count 17.5 Red Blood Count 2.88 Hemoglobin 8.6 Hematocrit 25.8 Mean Corpuscular Volume 89.8 Mean Corpuscular Hemoglobin 30.0 Mean Corpuscular Hemoglobin 33.4 Concent Red Cell Distribution Width 16.8 Platelet Count 126 Mean Platelet Volume 9.0 Neutrophils (%) (Auto) 94.8 Lymphocytes (%) (Auto) 2.6 Monocytes (%) (Auto) 2.4 Eosinophils (%) (Auto) 0.0 Basophils (%) (Auto) 0.2 Neutrophils # (Auto) 16.6 Lymphocytes # (Auto) 0.5 Monocytes # (Auto) 0.4 Eosinophils # (Auto) 0.0 Basophils # (Auto) 0.0 CBC Comment AUTO DIFF Differential Total Cells 100 Counted Neutrophils % (Manual) 89 Band Neutrophils % 3 Lymphocytes % 4 Monocytes % 2 Neutrophils # (Manual) 16.5 Metamyelocytes 2 Differential Comment FINAL DIFF MANUAL Platelet Estimate LOW Platelet Morphology Comment NORMAL Sodium Level 155 Potassium Level 3.6 Chloride Level 116 Carbon Dioxide Level 28.8 Anion Gap 10 Blood Urea Nitrogen 56 Creatinine 1.70 Estimat Glomerular Filtration 40 Rate Random Glucose 184 Calcium Level 8.2 Phosphorus Level 3.9 Magnesium Level 1.5 Total Bilirubin 0.9 Aspartate Amino Transf 25 (AST/SGOT) Alanine Aminotransferase 37 (ALT/SGPT) Alkaline Phosphatase 119 B-Type Natriuretic Peptide 2444 Total Protein 5.4 Albumin 1.9 Date/Time Procedure Status Source Growth 08/27/16 10:30 Aerobic Blood Culture - Preliminary Resulted Blood Line NO GROWTH IN 4 DAYS 08/27/16 10:30 Anaerobic Blood Culture - Preliminary Resulted Blood Line NO GROWTH IN 4 DAYS Imaging Last Impressions Chest X-Ray 08/30/16 0600 Signed Impressions: Service Date/Time: Tuesday, August 30, 2016 05:00 - CONCLUSION: Increasing consolidation in the left mid and lower lung and increasing ill-defined opacity right lower lung suggesting either infiltrate or pleural effusion. Polo Saunders MD Lung Scan-VQ Nuclear Medicine 08/29/16 0000 Signed Impressions: Service Date/Time: Monday, August 29, 2016 10:20 - CONCLUSION: Low probability for pulmonary embolus. Lex Lopez MD Lower Extremity Ultrasound 08/28/16 0000 Signed Impressions: Service Date/Time: Sunday, August 28, 2016 22:19 - CONCLUSION: 1. The study is negative for deep venous thrombosis bilateral lower extremity. 2. Distal thigh cystic lesion with arterial pattern of flow within the central lumen suggests possible aneurysm or pseudoaneurysm. 3. Stable large left popliteal cyst. Polo Saunders MD Brain MRI 08/27/16 0000 Signed Impressions: Service Date/Time: August 15:13 - CONCLUSION: No evidence of acute infarct, hemorrhage, mass or edema. No findings to suggest significant anoxic injury. Kit Power MD Renal Ultrasound 08/25/16 0000 Signed Impressions: Service Date/Time: Wednesday, August 24, 2016 21:53 - CONCLUSION: 1. There is no hydronephrosis. Both kidneys demonstrate mild increased echotexture of the parenchyma suggesting medical renal disease. 2. Trace perihepatic free fluid and bilateral pleural effusions. Lex Malik MD Chest CT 08/25/16 0000 Signed Impressions: Service Date/Time: Thursday, August 25, 2016 21:20 - CONCLUSION: 1. Bilateral pneumonia and aspiration would be in the differential. There is dependent consolidation/atelectasis and small effusions of the bases as well. 2. Upper limits of normal to mildly enlarged mediastinal lymph nodes, most likely reactive. 3. Coronary artery calcification. 4. Right rib fractures, including acute fractures laterally of the third, fourth and fifth. There are old, healed fractures anteriorly of the right second and third ribs.. Lex Lopez MD Abdomen/Pelvis CT 08/25/16 0000 Signed Impressions: Service Date/Time: Thursday, August 25, 2016 20:20 - CONCLUSION: 1. Ventral hernia containing small bowel and with associated small bowel obstruction. The defect is broad; I believe the obstruction is probably related to scarring and/or adhesions within the hernia sac. I don't see a mass. 2. Distended stomach despite NG tube present. 3. Severe aortoiliac atherosclerosis. No aneurysm. Lex Lopez MD Abdomen X-Ray 08/24/16 0000 Signed Impressions: Service Date/Time: Wednesday, August 24, 2016 17:19 - CONCLUSION: 1. Small bowel dilatation which reflect ileus or obstruction. Followup examination is recommended if clinically indicated. Gareth Escalante MD Physical Exam HEENT: Normocephalic; atraumatic; no jaundice CHEST: Resp even. diminished. OETT to vent CARDIAC: RRR ABDOMEN: Soft, nondistended, no hepatosplenomegaly; bowel sounds are present x 4 quadrants. Large ventral hernia reducible. OGT + BM SKIN: Skin cool to touch, dry [employer]: Unresponsive (Rivka Koehler) Assessment and Plan Plan ASSESSMENT: - Massive GIB with older appearing dark maroon gastric secretions. Pt is s/p CODE BLUE, vomiting large amount of dark maroon secretions on 08/24 and HH dropped to 5.4/16.7. According to the chart , he has a hx of perforated gastric ulcer. Recent EGD (08/10/16)---> mild gastritis, nodules in the EG junction, moderate esophagitis, normal endoscopy otherwise, retroflexed views revealed no abnormalities. Pathology revealed mild active chronic gastritis, nodule GE junction with gastric mucosa with mild chronic inflammation of the lamina propria and foveolar hyperplasia, acutely inflamed squamous mucosa and detached fragments of acute inflammatory exudate multiple budding yeast and pseudohyphae are present in exudate, acutely ulcerated mucosa of distal esophagus with numerous budding yeast and pseudohyphae invading tissue, consistent with mary kay esophagitis. Colonoscopy (08/11/16) with polypectomy and ablation of polyp in ascending colon with hot snare. Ascending colon with markedly cauterized colonic mucosa with features suggestive of hyperplastic polyp. S/P EGD (08/26/16)-----> Proximal esophageal lesion possibly vascular in nature , Incomplete evaluation of the stomach, Deformed pylorus. S/P CT chest (08/25/16)-----> 1. Bilateral pneumonia and aspiration would be in the differential. There is dependent consolidation/atelectasis and small effusions of the bases as well. 2. Upper limits of normal to mildly enlarged mediastinal lymph nodes, most likely reactive. 3. Coronary artery calcification. 4. Right rib fractures, including acute fractures laterally of the third, fourth and fifth. There are old, healed fractures anteriorly of the right second and third ribs. At this time, he does not appear to be having active bleeding. Okay to start TF. Possible EGD next week. Protonix Gtt. Micafungin. Not having active GI bleeding at this time. - Anemia secondary acute blood loss. S/P 5 units PRBC, 2 units FFP. 9.3/27.4. H/H today 8.0/23.5 - Ileus vs. Bowel obstruction. Abdomen X-Ray (08/24/16)---> 1. Small bowel dilatation which reflect ileus or obstruction. Followup examination is recommended if clinically indicated. Abdomen/Pelvis CT (08/25/16)----> 1. Ventral hernia containing small bowel and with associated small bowel obstruction. The defect is broad; I believe the obstruction is probably related to scarring and/or adhesions within the hernia sac. I don't see a mass. 2. Distended stomach despite NG tube present. 3. Severe aortoiliac atherosclerosis. No aneurysm. GS following, known to Dr. Roberts. GS following. Abdominal distention much improved, soft, nondistended. Large ventral hernia- reducible. Multiple large loose/liquid bowel movements. Okay with GS to start feedings. - Recent mary kay esophagitis. Diflucan, Micafungin, Protonix gtt. - S/P CODE BLUE (08/24). Pt with ROSC after 15 MN. Going for MRI brain today. - Acute respiratory failure with COPD and suspected HCAP. Vent, Nebs, Abx per [facility] - Large Ventral hernia, reducible. per Dr. Roberts - Sepsis, Severe leukocytosis, improving. WBC 21.2. Bx growing yeast. ID following. Abx Vancomycin, Diflucan, Micafungin, 08/31/16-Several bowel movements today, H&H 8.6/25.8 white count 17.5, nonresponsive on vent, will plan for EGD in am PLAN: - Jevity 1.5 at 20cc/hr, hold after midnight -Consent for EGD in am -Schedule EGD for tomorrow - If nausea/vomiting/distention with TF, hold TF - Cont. Protonix Gtt - Cont. Micafungin per ID recommendations - Monitor HH - Transfuse as necessary - Supportive care - Monitor labs - If any active bleeding, then one should contemplate a Gilles tube placement and possible angiography. - Further recommendations to follow based on results of above Patient seen and examined by Dr. Calderon and myself and this note is written on his behalf (Rivka Koehler) Physician Comments Seen and examined with FINN, no active bleeding reported. Repeat EGD tomorrow as recommended by Dr. Obrien. (Ana Calderon MD) Rivka Koehler Aug 31, 2016 16:13 Ana Calderon MD Aug 31, 2016 18:49
[2016-08-31] MEDS: D5W + KCL 20 MEQ INJ 1,000 ML IV SCH (17:04)
[2016-09-01] VITALS (18 sets, daily range): BP systolic 120–158; BP diastolic 73–98; PULSE 72–102; RESP 16–22; TEMP 97.8–98.6; O2SAT 96–100
[2016-09-01] MEDS: hydrALAZINE HCL 20 MG/ML VIAL IV PUSH PRN (00:13)
[2016-09-01] MEDS: PROPOFOL 1000 MG/100 ML INJ 100 ML IV SCH ×5 (01:18→16:57)
--- NOTE | 2016-09-01 01:35 | HHI.CCPN ---
Subjective Remarks/Hospital Course 08/24: 71 Year-old male with a medical history significant for COPD on home oxygen who was recently admitted with suspected sepsis/H And was initiated on IV antibiotics and steroids. He had recently been evaluated by GI and underwent EGD on 08/10/2016 and was found to have moderate esophagitis, mild gastritis with pathology subsequently showing Ashley esophagitis as well as colonoscopy on 08/11/2016 with polypectomy and ablation of polyp in ascending colon with hot snare. Patient has been dealing with constipation since his admission. Today when he was trying to have a bowel movement he suddenly became less responsive and then had a large emesis which resulted in aspiration and hemodynamic collapse. Patient initially had large volume emesis with dark maroon blood. CODE BLUE cardiac arrest code was activated. On my arrival patient was in bed CPR had been initiated. Significant gastric contents was still being suctioned out of his oral cavity. ACLS protocol was continued. Patient was intubated following vigorous suctioning of gastric contents from oral cavity as well as with placement of NG tube which is hooked up to suction and about 1.5 L of gastric contents being suctioned out which appeared to be dark maroon in color. Patient initially had a pulse when CODE BLUE was called and subsequently went in PEA arrest followed by asystole during ACLS and then V. fib for which he was defibrillated with 200 J 1, CPR/ACLS protocol was continued and patient eventually had return of spontaneous circulation after about 15 minutes of CPR/ACLS. Patient was transferred to [facility] and placed on mechanical ventilation. I emergently placed left femoral central line for central vascular access and he was started on Levophed for pressor support. 2 units of O- 1 crossmatch blood were ordered and transfused stat. He also received 1 L of normal saline bolus following return of spontaneous circulation. Stat labs were ordered. His hemoglobin on ABG done post resuscitation was 5.6. I did order Protonix 80 mg IV stat followed by 8 mg per hour IV infusion. Patient remained encephalopathic though was minimally responsive following transfer to the ICU. GI consult was requested and I spoke with Dr. Zamarripa at bedside on his arrival. History was obtained by reviewing records, discussion with family/ GI as well as nursing staff. According to patient's daughter he has not been doing well for the last few months in terms of his breathing and has been using his home oxygen more often. He gets extremely short of breath even with the least exertion. 08/25: Remains encephalopathic/ sedated, orally intubated on [facility] ventilation. Transiently off levophed last night however back to 11 mcg/min currently. Hgb up to 9.4 following 4 units PRBCs transfused last night. 08/26: Tmax 99. Some unresponsive on the ventilator. CT abdomen/pelvis less than revealed small bowel obstruction at site of ventral hernia. No further bleeding noted. Gastric output approximately 700 cc. No bowel movement. 08/27: Tmax 99.7. Currently afebrile. Positive BM overnight approximately 1 L according to RN. No blood noted. 100 cc from gastric tube overnight. Hemoglobin corrected a properly. Likely dilutional. Noted fungemia currently issue. Opens eyes to voice. 08/28: Tmax 99.1. No BMs overnight. Minimal gastric tube output. Hemoglobin stable 9.5. Opens eyes to voice. Not following commands. Appears with singultus this morning. Subjective 08/29: 20 beat run of wide complex tachycardia overnight. Noted potassium 3.2. This is been replaced. We'll recheck this afternoon. Circuit exchange yesterday. Patient tolerating pressure control ventilation much better than PRVC/AC ventilation is low probably VQ scan. Less FiO2 requirements. No BM past 24 hour. 08/30: Unable to wean ventilator. 08/31: Patient was extubated on 08/30 however became tachypneic with use of accessory muscles of respiration and required reintubation around 6:30 PM last night and was placed back on mechanical ventilation. Currently sedated, orally intubated on mechanical ventilation. Post intubation chest x-ray suggested fluid overload for which she was given Lasix 40 mg IV with good response having made about 2.5 L urine the last 7 hours. 09/01: Remains sedated, orally intubated on mechanical ventilation. Diuresing well with Lasix. Awaiting EGD in a.m. Objective Vital Signs Date Time Temp Pulse Resp B/P Pulse Ox O2 Delivery O2 Flow Rate FiO2 08/31/16 22:00 92 08/31/16 20:00 97.6 20 152/85 98 08/31/16 19:49 40 08/31/16 19:00 Mechanical Ventilator 08/30/16 15:50 5.00 Intake and Output 08/31/16 08/31/16 09/01/16 08:00 16:00 00:00 Intake Total 473 ml 628 ml 678 ml Output Total 1450 ml 2925 ml 1200 ml Balance -977 ml -2297 ml -522 ml Result Diagram: 08/31/16 0608/31/16599 Imaging Last 24 hours Impressions Chest X-Ray 08/30/16599 Signed Impressions: Service Date/Time: Tuesday, August 30, 2016 05:00 - CONCLUSION: Increasing consolidation in the left mid and lower lung and increasing ill-defined opacity right lower lung suggesting either infiltrate or pleural effusion. Polo Saunders MD Last Impressions Lower Extremity Ultrasound 08/28/16 Signed Impressions: Service Date/Time: Sunday, August 28, 2016 22:19 - CONCLUSION: 1. The study is negative for deep venous thrombosis bilateral lower extremity. 2. Distal thigh cystic lesion with arterial pattern of flow within the central lumen suggests possible aneurysm or pseudoaneurysm. 3. Stable large left popliteal cyst. Polo Saunders MD Chest X-Ray 08/28/16 Signed Impressions: Service Date/Time: Sunday, August 28, 2016 13:08 - CONCLUSION: 1. Bibasilar consolidation and small effusions are slightly worse. 2. Nasogastric pulled back in the interim, tip near the GE junction currently. Lex Lopez MD Brain MRI 08/27/16 Signed Impressions: Service Date/Time: August 15:13 - CONCLUSION: No evidence of acute infarct, hemorrhage, mass or edema. No findings to suggest significant anoxic injury. Kit Power MD Renal Ultrasound 08/25/16 Signed Impressions: Service Date/Time: Wednesday, August 24, 2016 21:53 - CONCLUSION: 1. There is no hydronephrosis. Both kidneys demonstrate mild increased echotexture of the parenchyma suggesting medical renal disease. 2. Trace perihepatic free fluid and bilateral pleural effusions. Lex Malik MD Chest CT 08/25/16 Signed Impressions: Service Date/Time: Thursday, August 25, 2016 21:20 - CONCLUSION: 1. Bilateral pneumonia and aspiration would be in the differential. There is dependent consolidation/atelectasis and small effusions of the bases as well. 2. Upper limits of normal to mildly enlarged mediastinal lymph nodes, most likely reactive. 3. Coronary artery calcification. 4. Right rib fractures, including acute fractures laterally of the third, fourth and fifth. There are old, healed fractures anteriorly of the right second and third ribs.. Lex Lopez MD Abdomen/Pelvis CT 08/25/16 0000 Signed Impressions: Service Date/Time: Thursday, August 25, 2016 20:20 - CONCLUSION: 1. Ventral hernia containing small bowel and with associated small bowel obstruction. The defect is broad; I believe the obstruction is probably related to scarring and/or adhesions within the hernia sac. I don't see a mass. 2. Distended stomach despite NG tube present. 3. Severe aortoiliac atherosclerosis. No aneurysm. Lex Lopez MD Abdomen X-Ray 08/24/16 0000 Signed Impressions: Service Date/Time: Wednesday, August 24, 2016 17:19 - CONCLUSION: 1. Small bowel dilatation which reflect ileus or obstruction. Followup examination is recommended if clinically indicated. Gareth Escalante MD Objective Remarks GENERAL: 71-year-old male, critically ill. SKIN: Warm and dry. No rash HEAD: Atraumatic. Normocephalic. EYES: Pupils equal and round about 2 mm bilaterally and reactive. ENT: No nasal bleeding or discharge. Mucous membranes pink and moist. NECK: Trachea midline. No JVD. Left IJ clean dry and intact CARDIOVASCULAR: Tachycardic, RR. S1, S2. No S4. Without murmur RESPIRATORY: Orally intubated on mechanical ventilation, scattered rhonchi bilaterally, no wheezing. Breath sounds equal bilaterally. GASTROINTESTINAL: Abdomen significant for easily reducible ventral hernia.. Hypoactive bowel sounds are appreciated. MUSCULOSKELETAL: Extremities with 1+ upper and lower extremity peripheral edema. No obvious deformities. NEUROLOGICAL: Sedated, orally intubated on mechanical ventilation. Responds on the ventilator to physical stimulation. Withdraws to pain in all 4 extremities Date of Insertion: Aug 26, 2016 Line: Central Venous Catheter Side: Left Location: Internal, Jugular A/P Assessment and Plan Neuro/Psych: Status post CPR 15 minutes - possible anoxic encephalopathy Depression NOS Follow neuro status. Propofol for sedation, daily sedation vacation Goal of RASS -2. Concern for anoxic encephalopathy following cardiac arrest. EEG 08/25 revealed mild to moderate encephalopathy. No epileptiform activity. MRI brain 08/27 revealed no acute findings. Holding trazodone 50 mg at night for depression Cardiovascular: Cardiac arrest status post CPR Elevated troponin History dyslipidemia History of hypertension PVD Systemic shock likely secondary to sepsis/aspiration/small bowel obstruction Possible pseudoaneurysm Off all vasopressors Currently D5W at 40 cc an hour. Continue diuresis with Lasix Continue Cardizem at 30 mg 4 times a day since blood pressures normalized. Not on any lipid-lowering agents at home. Cardiac arrest status post CPR. s/p aggressive fluid resuscitation. 5 units PRBCs transfused to date minimal troponin elevation following cardiac arrest noted. Echo 2D revealed EF 35-40%. Moderate LVH. Mitral valve calcified. Mild TR. IR consultation for occlusion of pseudoaneurysm Pulmonary: Acute respiratory failure secondary to aspiration pneumonia End-stage COPD. Oxygen dependent FEV1 28%, FVC 1.6. PRVC 16/550/5/50 Duo nebs every 4 hours and as needed, At home on Symbicort 160/4.5 twice a day and duo nebs 4 times a day Switched to Pulmicort twice a day Currently on Solu-Medrol 40 mEq IV every 8 hours. Wean Titrate FiO2 down provided O2 sat greater than 90%. CT chest revealed small pleural effusions bilaterally with likely aspiration VQ scan low probability Diurese with Lasix. Spontaneous breathing trials to decide extubation GI/liver: History of ventral hernia Hypokalemia Resume tube feeds after repeat EGD which is scheduled for 09/01 Protonix 80 mg IV bolus followed by 8 mg/h IV infusion. GI following EGD revealed 25 cm proximal esophagus with possible bleeding. Rule out aorto esophageal fistula. Dr. roberts/general surgery evaluated. Does not believe abdomen surgical the present time. GI. Small bowel obstruction Upper GI bleed plus esophageal rule out aorto esophageal fistula History of Ashley esophagitis History of colonic polyps History of ventral hernia status post repair last by Dr. Roberts CT abdomen/pelvis the sesamoid revealed small bowel obstruction level but hernia. Severe aortoiliac disease. Dr. roberts/general surgery evaluated. Very poor surgical candidate this time. EGD 08/25 revealed esophageal nipple. Clots noted within the gastric contents without active bleeding. Recommended CTA rule out aorto esophageal fistula however cannot perform due to elevated creatinine. Hemoglobin appears stable. Gilles if continues upper GI bleed Resumed NG tube feeds after EGD in a.m. Renal/: Acute kidney injury History of bladder outlet obstruction IV hydration, strict intake output, monitor and replete electro lites, follow BUN creatinine. Currently holding Flomax 0.4 mg daily No hydronephrosis on CT abdomen/pelvis Negative urine eosinophils. ID: UTI Sepsis Fungemia Repeat blood and sputum cultures, UA and urine cultures have indicated. Appreciate ID consult with worsening leukocytosis and septic shock Empiric antibiotic coverage with IV vancomycin and Zosyn to be continued. IV Diflucan started by GI for Ashley esophagitis. Started on IV micafungin 08/26 secondary to yeast in blood. Pertinent cultures 08/28 - blood from central line -no growth 08/27 -arterial line blood - pending 08/26 - sputum -Serratia 08/25 - blood cultures 2 -Ashley 08/25 - urine -no growth 08/22 - blood cultures 2 - no growth 08/21 - urine - no growth 08/20 - blood cultures 2 - 1 out of 4 staph epi Endocrine: Chronic prednisone use secondary to COPD SSI for glycemic control as needed. Currently on Solu-Medrol 40 mg IV every 8 hours Heme: Acute blood loss anemia History of prostate cancer Leukocytosis Status post 4 units PRBCs ands 2 units FFP on 08/24. Given one unit PRBCs 08/26 Follow CBC and coags. FEN: Hypokalemia Hyperphosphatemia Replace electrolytes as clinically indicated AM labs pending. MSK: PT/OT evaluate and treat Access - Left IJ CVL day 6 Prophylaxis - GI -Protonix drip - DVT - SCD/pharmacological prophylaxis contraindicated with GI bleed Overall impression: Critically ill with ventilator dependent respiratory failure. Unable to wean ventilator; made difficult due to depressed LV function and diastolic compliance issues. Continue diuresis Critical Care 35 mins Blair Espinoza MD Sep 01, 2016 01:35
[2016-09-01] MEDS: PIPERACIL-TAZO 3.375 GM PREMIX 50 ML IV SCH ×4 (02:08→22:04)
[2016-09-01 02:39] LABS: AUTOMATED NEUTROPHIL # 12.9 TH/MM3 (1.8-7.7); BASOPHIL % 0.2 % (0.0-2.0); HEMATOCRIT 26.2 % (39.0-51.0); LYMPH % 3.3 % (9.0-44.0); LYMPHOCYTE # 0.5 TH/MM3 (1.0-4.8); MEAN CELL VOLUME 90.3 FL (80.0-100.0); MEAN CORPUSCULAR HEMOGLOBIN 30.3 PG (27.0-34.0); MEAN CORPUSCULAR HGB CONC 33.5 % (32.0-36.0); NEUT % 90.5 % (16.0-70.0); PLATELET COUNT 138 TH/MM3 (150-450); RED CELL DISTRIBUTION WIDTH 16.6 % (11.6-17.2); WHITE BLOOD COUNT 14.3 TH/MM3 (4.0-11.0)
[2016-09-01 02:41] LABS: HEMO FLAGS AUTO DIFF
[2016-09-01 02:59] LABS: ALKALINE PHOSPHATASE 122 U/L (45-117); ALT (GPT) 39 U/L (12-78); ANION GAP 13 MEQ/L (5-15); AST (GOT) 24 U/L (15-37); BICARBONATE 33.3 MEQ/L (21.0-32.0); BLOOD UREA NITROGEN 53 MG/DL (7-18); CHLORIDE 111 MEQ/L (98-107); GLOMERULAR FILTRATION RATE 42 ML/MIN (>89); TOTAL BILIRUBIN ADULT 1.2 MG/DL (0.2-1.0)
[2016-09-01 03:02] LABS: SODIUM (NA) 157 MEQ/L (136-145)
[2016-09-01] MEDS: methylPREDNISolone SOD SUCC 40 MG/1 ML VIAL IV PUSH SCH ×3 (03:20→22:03)
[2016-09-01] MEDS: POTASSIUM CHLOR 40 MEQ PREMIX 100 ML IV PRN ×2 (03:20→03:48)
[2016-09-01] MEDS: RESP: ALBUTEROL 2.5 MG/IPRATROPIUM 0.5 MG NEB (SCH) NEB ×5 (03:51→19:23)
--- NOTE | 2016-09-01 05:07 | RADRPT ---
EXAM DATE/TIME: 09/01/2016 03:19 [place] COMPARISON: CHEST SINGLE AP, August 30, 2016, 19:53. INDICATIONS : Shortness of breath. MEDICAL HISTORY : Hypertension. Chronic obstructive pulmonary disease. SURGICAL HISTORY : None. ENCOUNTER: Subsequent ACUITY: 1 week PAIN SCORE: Non-responsive. LOCATION: Bilateral chest FINDINGS: Single AP view of the chest. Endotracheal tube, nasogastric tube, left IJ central venous catheter rem ain in place. No significant change in bilateral left greater than right basilar pulmonary opacity. S mall bilateral pleural effusions. No evidence of pneumothorax. CONCLUSION: No significant interval change in bilateral pulmonary parenchymal opacity and small bilateral pleural effusions. Donald Valerio MD on September 01, 2016 at 5:05 Board Certified Radiologist. This report was verified electronically.
[2016-09-01] MEDS: PANTOPRAZOLE INJ 80 MG in SODIUM CHLORIDE 0.9% INJ 100 ML IV SCH ×2 (05:58→16:57)
[2016-09-01 06:57] LABS: BANDS 2 % (0-6); METAMYELOCYTES 2 % (0-1); MYELOCYTES 1 % (0-0); NEUTROPHIL # MANUAL DIFF 13.3 TH/MM3 (1.8-7.7); POLYS (SEG NEUTROPHILS) 88 % (16-70); WBC DIFF SAMPLE 100
[2016-09-01 07:03] LABS: PLATELET ESTIMATE SMEAR LOW (NORMAL); PLATELET MORPHOLOGY NORMAL (NORMAL); SCAN/DIFF FINAL DIFF MANUAL
[2016-09-01] MEDS: SODIUM CHLORIDE 0.9% FLUSH 5 ML FLUSH IVF SCH (07:27)
[2016-09-01] MEDS: RESP: BUDESONIDE 0.5 MG/2 ML NEB NEB SCH ×2 (07:39→19:23)
[2016-09-01] MEDS: DILTIAZEM HCL 30 MG TAB PO SCH ×4 (08:07→22:05)
[2016-09-01] MEDS: MULTIVITAMIN TAB PO SCH (08:07)
[2016-09-01] MEDS ORDERED: PROPOFOL 200 MG/20 ML AMP IV ONE (10:46)
[2016-09-01] MEDS ORDERED: DO NOT ADM ANY ANTICOAGULANT DRUGS XX PRN (10:52)
--- NOTE | 2016-09-01 10:52 | GIPROC ---
[facility] [address] [facility]. [facility], [address] EGD PROCEDURE REPORT EXAM DATE: 09/01/2016 PATIENT NAME: Ravindra Thomason MR #: [id number] BIRTHDATE: 1945 ATTENDING: Ana Calderon MD ORDER #: [id number] [employer] ME[employer]IC: Page Rene and Frank Diego STATUS: inpatient INDICATIONS: The patient is a 71 yr old male here for an EGD due to melena PROCEDURE PERFORMED: EGD, diagnostic MEDICATIONS: Per Anesthesia and None. TOPICAL ANESTHETIC: CONSENT: The patient understands the risks and benefits of the procedure and understands that these risks include, but are not limited to: sedation, allergic reaction, infection, perforation and/or bleeding. Alternative means of evaluation and treatment include, among others: physical exam, x-rays, and/or surgical intervention. The patient elects to proceed with this endoscopic procedure. medical equipment was checked for proper function. Hand hygiene and appropriate measures for infection prevention was taken. After the risks, benefits and alternatives of the procedure were thoroughly explained, Informed consent was verified, confirmed and timeout was successfully executed by the treatment team. The patient was anesthetized with topical anesthesia and the Pentax [id number] endoscope was introduced through the mouth and advanced to the second portion of the duodenum. Retroflexed views revealed no abnormalities The gastroscope was then slowly withdrawn and removed. ESOPHAGUS: There was LA Class A esophagitis noted. STOMACH: There was erythematous moderate gastritis in the gastric antrum. NG in stomach. ADVERSE EVENTS: There were no complications. IMPRESSIONS: 1. There was LA Class A esophagitis noted 2. There was erythematous gastritis in the gastric antrum; NG in stomach 3. Retroflexed views revealed no abnormalities RECOMMENDATIONS: 1. Anti-reflux regimen 2. Continue PPI 3. Avoid NSAIDS PATIENT CONDITION: stable DISPOSITION: Inpatient REPEAT EXAM: Return as needed for EGD Ana Calderon MD eSigned: Ana Calderon MD 09/01/2016 10:51 AM cc: [id number]
[2016-09-01] MEDS: MICAFUNGIN INJ 100 MG in SODIUM CHLORIDE 0.9% INJ 100 ML IV SCH (11:55)
--- NOTE | 2016-09-01 13:03 | HHI.IDPN ---
Subjective Subjective Remarks ID Xcover for . Delayed entry patient seen at 1 pm ~ is a 71 y/o CM with COPD and oxygen dependent, Ashley esophagitis, prior h/o pneumonia. According to the since the patient was discharged he continued to have nausea and vomiting. He has not had any bowel movement, and she thinks in the last 3 weeks. Patient started having more weakness, and was getting more short of breath, so the patient presented back to the hospital and was admitted August 20. He was admitted as a COPD exacerbation and pneumonia. He was put on empiric antibiotics. Patient had in hospital cardiorespiratory arrest. He was successfully resuscitated, and intubated. Patient had an A- line in arm, CL in groin which was changed on 08/27/16. 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 Patient continues to have elevated WBC, and is being treated for sepsis secondary to aspiration PNA, Fungemia likely line related (groin line likely now DCed). Notes reviewed Discussed with RN Patient is afebrile Sedated on the vent Off pressors. Underwent EGD today: esophagitis prelim report. US groin for possible pseudoaneurysm being considered. RN reports no further loose BMs. Antibiotics Zosyn IV (aspiration PNA) IV Micafungin (for fungal line infection) Lines L I J central line Past Medical History Hypertension COPD O2 dependent prostate cancer Bladder outlet obstruction Hyperlipidemia Past Surgical History Ventral hernia Appendectomy Perforated gastric ulcer surgery Cataract Upper and lower endoscopy Allergies: Coded Allergies: *MDRO Multi-Drug Resistant Organism (Verified Adverse Reaction, Unknown, ) MRSA (abdominal wound) 2015 per 04/10/2015 H&P MRSA PCR Screen #1 NEGATIVE - 08/21/16 Objective . Vital Signs Date Time Temp Pulse Resp B/P Pulse Ox O2 Delivery O2 Flow Rate FiO2 09/01/16 12:00 98.1 80 20 144/74 96 09/01/16 12:00 80 09/01/16 11:16 100 40 09/01/16 10:00 78 09/01/16 08:00 97.8 74 20 147/98 99 09/01/16 08:00 74 09/01/16 07:43 100 40 09/01/16 07:00 99 Mechanical Ventilator 40 09/01/16 06:00 77 09/01/16 04:01 96 40 09/01/16 04:00 86 09/01/16 04:00 98.0 86 16 120/73 97 09/01/16 02:00 72 09/01/16 01:01 99 40 09/01/16 00:00 78 09/01/16 00:00 98.0 78 20 158/91 99 08/31/16 22:00 92 08/31/16 20:00 81 08/31/16 20:00 97.6 82 20 152/85 98 08/31/16 19:49 99 40 08/31/16 19:00 97 Mechanical Ventilator 40 08/31/16 18:00 90 08/31/16 17:00 100 40 08/31/16 16:00 89 08/31/16 16:00 98.2 89 22 155/91 98 08/31/16 14:00 84 08/31/16 08/31/16 09/01/16 15:00 23:00 07:00 Intake Total 628 ml 678 ml 635 ml Output Total 2925 ml 1200 ml 2000 ml Balance -2297 ml -522 ml -1365 ml IV Total 568 ml 578 ml 635 ml Tube Irrigant 60 ml 100 ml 0 ml Output Urine Total 2875 ml 1200 ml 2000 ml Gastric Drainage Total 50 ml 0 ml 0 ml # Bowel Movements 2 0 0 . Laboratory Tests Test 08/31/16 09/01/16 06:00 02:30 White Blood Count 17.5 TH/MM3 14.3 TH/MM3 Red Blood Count 2.88 MIL/MM3 2.90 MIL/MM3 Hemoglobin 8.6 GM/DL 8.8 GM/DL Hematocrit 25.8 % 26.2 % Mean Corpuscular Volume 89.8 FL 90.3 FL Mean Corpuscular Hemoglobin 30.0 PG 30.3 PG Mean Corpuscular Hemoglobin 33.4 % 33.5 % Concent Red Cell Distribution Width 16.8 % 16.6 % Platelet Count 126 TH/MM3 138 TH/MM3 Mean Platelet Volume 9.0 FL 9.1 FL Neutrophils (%) (Auto) 94.8 % 90.5 % Lymphocytes (%) (Auto) 2.6 % 3.3 % Monocytes (%) (Auto) 2.4 % 6.0 % Eosinophils (%) (Auto) 0.0 % 0.0 % Basophils (%) (Auto) 0.2 % 0.2 % Neutrophils # (Auto) 16.6 TH/MM3 12.9 TH/MM3 Lymphocytes # (Auto) 0.5 TH/MM3 0.5 TH/MM3 Monocytes # (Auto) 0.4 TH/MM3 0.9 TH/MM3 Eosinophils # (Auto) 0.0 TH/MM3 0.0 TH/MM3 Basophils # (Auto) 0.0 TH/MM3 0.0 TH/MM3 CBC Comment AUTO DIFF AUTO DIFF Differential Total Cells 100 100 Counted Neutrophils % (Manual) 89 % 88 % Band Neutrophils % 3 % 2 % Lymphocytes % 4 % 4 % Monocytes % 2 % 3 % Neutrophils # (Manual) 16.5 TH/MM3 13.3 TH/MM3 Metamyelocytes 2 % 2 % Differential Comment FINAL DIFF FINAL DIFF MANUAL MANUAL Platelet Estimate LOW LOW Platelet Morphology Comment NORMAL NORMAL Myelocytes 1 % Red Cell Morphology Comment NORMAL Laboratory Tests Test 08/31/16 09/01/16 09/01/16 06:00 02:30 12:00 Sodium Level 155 MEQ/L 157 MEQ/L Potassium Level 3.6 MEQ/L 3.0 MEQ/L 3.8 MEQ/L Chloride Level 116 MEQ/L 111 MEQ/L Carbon Dioxide Level 28.8 MEQ/L 33.3 MEQ/L Anion Gap 10 MEQ/L 13 MEQ/L Blood Urea Nitrogen 56 MG/DL 53 MG/DL Creatinine 1.70 MG/DL 1.62 MG/DL Estimat Glomerular Filtration 40 ML/MIN 42 ML/MIN Rate Random Glucose 184 MG/DL 181 MG/DL Calcium Level 8.2 MG/DL 8.0 MG/DL Phosphorus Level 3.9 MG/DL Magnesium Level 1.5 MG/DL Total Bilirubin 0.9 MG/DL 1.2 MG/DL Aspartate Amino Transf 25 U/L 24 U/L (AST/SGOT) Alanine Aminotransferase 37 U/L 39 U/L (ALT/SGPT) Alkaline Phosphatase 119 U/L 122 U/L B-Type Natriuretic Peptide 2444 PG/ML Total Protein 5.4 GM/DL 5.3 GM/DL Albumin 1.9 GM/DL 1.9 GM/DL Imaging Chest X-Ray 08/27/16 0600 Signed Impressions: Service Date/Time: August 02:27 - CONCLUSION: 1. Patchy bilateral airspace disease with improving aeration/decreasing effusions in the bases bilaterally. 2. Stable position of life support tubes. Con Valdes MD Chest X-Ray 08/26/16 0754 Signed Impressions: Service Date/Time: Friday, August 26, 2016 08:14 - CONCLUSION: Left IJ central line distal tip in the SVC. No pneumothorax is visualized. There is a stable appearance the lungs with bilateral airspace consolidation. Lex Malik MD Chest X-Ray 08/26/16 0600 Signed Impressions: Service Date/Time: Friday, August 26, 2016 04:01 - CONCLUSION: 1. Worsening bibasilar effusions/atelectasis with diffuse interstitial edema, all characteristic of CHF. 2. Endotracheal tube remains appropriately positioned above the michele Con Valdes MD Chest X-Ray 08/26/164 Signed Impressions: Service Date/Time: Friday, August 26, 2016 08:14 - CONCLUSION: Left IJ central line distal tip in the SVC. No pneumothorax is visualized. There is a stable appearance the lungs with bilateral airspace consolidation. Lex Malik MD Renal Ultrasound 08/25/16 0000 Signed Impressions: Service Date/Time: Wednesday, August 24, 2016 21:53 - CONCLUSION: 1. There is no hydronephrosis. Both kidneys demonstrate mild increased echotexture of the parenchyma suggesting medical renal disease. 2. Trace perihepatic free fluid and bilateral pleural effusions. Lex Malik MD Chest CT 08/25/16 0000 Signed Impressions: Service Date/Time: Thursday, August 25, 2016 21:20 - CONCLUSION: 1. Bilateral pneumonia and aspiration would be in the differential. There is dependent consolidation/atelectasis and small effusions of the bases as well. 2. Upper limits of normal to mildly enlarged mediastinal lymph nodes, most likely reactive. 3. Coronary artery calcification. 4. Right rib fractures, including acute fractures laterally of the third, fourth and fifth. There are old, healed fractures anteriorly of the right second and third ribs.. Lex Lopez MD Abdomen/Pelvis CT 08/25/16 0000 Signed Impressions: Service Date/Time: Thursday, August 25, 2016 20:20 - CONCLUSION: 1. Ventral hernia containing small bowel and with associated small bowel obstruction. The defect is broad; I believe the obstruction is probably related to scarring and/or adhesions within the hernia sac. I don't see a mass. 2. Distended stomach despite NG tube present. 3. Severe aortoiliac atherosclerosis. No aneurysm. Lex Lopez MD Abdomen X-Ray 08/24/16 0000 Signed Impressions: Service Date/Time: Wednesday, August 24, 2016 17:19 - CONCLUSION: 1. Small bowel dilatation which reflect ileus or obstruction. Followup examination is recommended if clinically indicated. Gareth Escalante MD Physical Exam GENERAL: Sedated and intubated, not in distress SKIN: Warm and dry. No generalized rash or ecchymosis. HEAD: Atraumatic. Normocephalic. No temporal or scalp tenderness. EYES: Pale conjunctivae, no petechia or hemorrhage. Pupils equal round and reactive. No scleral icterus. No injection or drainage. ENT: Nose without bleeding, purulent drainage. Has endotracheal tube in the mouth. NGT in place NECK: Trachea midline. No JVD or lymphadenopathy. Supple. LIJ TLC looks ok CARDIOVASCULAR: Regular rate and rhythm without murmurs, gallops, or rubs. RESPIRATORY: Decreased breath sounds throughout both lung garcia. GASTROINTESTINAL: Abdomen soft, with protuberance in middle, this is an incisional hernia. No reaction to deep palpation. Has midline scar. Bowel sounds are hypoactive, no guarding. MUSCULOSKELETAL: Extremities without clubbing, cyanosis. Developing ne pedal edema. NEUROLOGICAL: Sedated PSYCH: Unable to assess LINE: LIJ TLC no evidence of infection. Assessment & Plan Remarks IMPRESSION Sepsis present on admission and then sepsis again. Central line associated blood stream infection (CLABSI) related fungemia ( likely groin line) now discontinued. Arterial line discontinued as well. Aspiration Pneumonia: Serratia marcescens. Possible pulm edema. Diarrhea ? Cdiff vs antibiotic associated. Status post cardiorespiratory arrest, likely aspirated Findings SBO within th hernia on CT A/P Acute respiratory failure on vent. GI bleed Leukocytosis, worsening, most likely multifactorial, fungemia, due to acute GI bleed as well as aspiration and arrest COPD, oxygen dependent Previous GI bleed with workup showing gastritis, Ashley esophagitis, and polyps Large incisional ventral hernia Bladder outlet obstruction, currently has a Hammond Renal insufficiency RECOMMENDATION Continue Micafungin IV (C.glabrata fungemia) Continue Zosyn IV (for aspiration PNA) Follow cultures Follow CBC, CMP. Monitor progress Will hold off on Opthalm consult to r/o fungal endopthalmitis patient just reintubated today. 2D ECHO with no vegetation. If persistent fungemia will consider CRISTHIAN. If has a pseudoaneusym at site of femoral line will likely treat for 4 weeks with antifungal. Follow EGD report as well as path if any. D/W RN. to resume care in . Ninoska Espinoza MD Sep 01, 2016 13:03
--- NOTE | 2016-09-01 14:51 | RADRPT ---
EXAM DATE/TIME: 09/01/2016 12:33 [facility] COMPARISON: CT ABDOMEN & PELVIS W/O CONTRAST, August 25, 2016, 20:20. INDICATIONS : Right leg aneurysm. MEDICAL HISTORY : Gastroesophageal reflux disease. Hypercholesterolemia.Chronic obstructive pulmonary disease. Congesti ve heart failure. Hypertension.Emphysema. Ulcer. Renal disease.Prostate cancer. Radiation. Rheumatoid arthritis. Diabetes. Measles. Shingles. Post traumatic stress disorder. SURGICAL HISTORY : Appendectomy. Left knee surgery. Bilateral cataract removal. Hernia repair. Multiple abdominal surger ies. ENCOUNTER: Subsequent ACUITY: 2 days PAIN SCORE: Nonresponsive. LOCATION: Right leg. AREA EVALUATED: Right thigh. FINDINGS: Dasilva scale and color Doppler images of the right groin were performed to evaluate a possible pseudoan eurysm. There is the appearance of mild fusiform aneurysmal change of the common femoral artery. Ther e is concentric mural thrombus involving the aneurysm. Aneurysm measures 3 cm in diameter. No saccula r or pseudoaneurysm appreciated. The common femoral artery remains patent. 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 There is concentric mural thrombus. This aneurysm is not amenable to thrombin i njection. Polo Moore Jr., MD on September 01, 2016 at 14:46 Board Certified Radiologist. This report was verified electronically.
[2016-09-01] MEDS: D5W + KCL 20 MEQ INJ 1,000 ML IV SCH (16:58)
[2016-09-02] VITALS (17 sets, daily range): BP systolic 146–161; BP diastolic 83–96; PULSE 64–97; RESP 17–25; TEMP 98.2–99.3; O2SAT 96–99
[2016-09-02] MEDS: methylPREDNISolone SOD SUCC 40 MG/1 ML VIAL IV PUSH SCH ×3 (03:02→20:30)
[2016-09-02] MEDS: PIPERACIL-TAZO 3.375 GM PREMIX 50 ML IV SCH ×4 (03:02→20:29)
[2016-09-02] MEDS: PANTOPRAZOLE INJ 80 MG in SODIUM CHLORIDE 0.9% INJ 100 ML IV SCH ×3 (03:02→20:30)
[2016-09-02] MEDS: PROPOFOL 1000 MG/100 ML INJ 100 ML IV SCH ×3 (06:40→17:51)
[2016-09-02] MEDS: RESP: BUDESONIDE 0.5 MG/2 ML NEB NEB SCH ×2 (07:55→22:02)
[2016-09-02] MEDS: SODIUM CHLORIDE 0.9% FLUSH 5 ML FLUSH IVF SCH (10:12)
[2016-09-02] MEDS: DILTIAZEM HCL 30 MG TAB PO SCH ×4 (10:14→20:30)
[2016-09-02] MEDS: MULTIVITAMIN TAB PO SCH (10:14)
[2016-09-02] MEDS: MICAFUNGIN INJ 100 MG in SODIUM CHLORIDE 0.9% INJ 100 ML IV SCH (11:40)
--- NOTE | 2016-09-02 13:11 | HHI.IDPN ---
Subjective Subjective Remarks is a 71 y/o CM with COPD and oxygen dependent, Ashley esophagitis, prior h/o pneumonia. According to the since the patient was discharged he continued to have nausea and vomiting. He has not had any bowel movement, and she thinks in the last 3 weeks. Patient started having more weakness, and was getting more short of breath, so the patient presented back to the hospital and was admitted August 20. He was admitted as a COPD exacerbation and pneumonia. He was put on empiric antibiotics. Patient had in hospital cardiorespiratory arrest. He was successfully resuscitated, and intubated. Patient had an A- line in arm, CL in groin which was changed on 08/27/16. 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 Patient continues to have elevated WBC, and is being treated for sepsis secondary to aspiration PNA, Fungemia likely line related (groin line likely now DCed). Notes reviewed Discussed with RN Patient is afebrile Extubated and reintubated this weekend BC with C albicans and C glabrata Last (+) BC 08/27 Has pseudoaneursysm R femoral artery Sputum with Serratia Off pressors. CXR stable ne opacities WBC down to 14K Antibiotics Zosyn IV (aspiration PNA) IV Micafungin (for fungal line infection) Lines L I J central line Past Medical History Hypertension COPD O2 dependent prostate cancer Bladder outlet obstruction Hyperlipidemia Past Surgical History Ventral hernia Appendectomy Perforated gastric ulcer surgery Cataract Upper and lower endoscopy Allergies: Coded Allergies: *MDRO Multi-Drug Resistant Organism (Verified Adverse Reaction, Unknown, ) MRSA (abdominal wound) 2015 per 04/10/2015 H&P MRSA PCR Screen #1 NEGATIVE - 08/21/16 Objective . Vital Signs Date Time Temp Pulse Resp B/P Pulse Ox O2 Delivery O2 Flow Rate FiO2 09/02/16 11:41 99 40 09/02/16 07:55 99 40 09/02/16 06:00 95 09/02/16 04:06 97 40 09/02/16 04:00 99.0 90 19 149/86 97 09/02/16 04:00 95 09/02/16 02:00 97 09/02/16 01:01 96 40 09/02/16 00:00 95 09/02/16 00:00 98.8 95 22 155/90 98 3/14/17 22:00 92 09/01/16 20:00 98.6 88 21 149/93 97 09/01/16 20:00 88 09/01/16 19:24 96 40 09/01/16 19:00 97 Mechanical Ventilator 40 09/01/16 18:00 79 09/01/16 16:00 94 09/01/16 16:00 98.6 94 22 154/95 97 09/01/16 15:50 97 40 09/01/16 14:00 102 09/01/16 09/01/16 09/02/16 15:00 23:00 07:00 Intake Total 690 ml 457 ml 706 ml Output Total 1000 ml 750 ml 1000 ml Balance -310 ml -293 ml -294 ml IV Total 630 ml 457 ml 513 ml Tube Feeding 193 ml Tube Irrigant 60 ml Output Urine Total 1000 ml 750 ml 1000 ml Stool Total 0 ml 0 ml . Laboratory Tests Test 09/01/16 02:30 White Blood Count 14.3 TH/MM3 Red Blood Count 2.90 MIL/MM3 Hemoglobin 8.8 GM/DL Hematocrit 26.2 % Mean Corpuscular Volume 90.3 FL Mean Corpuscular Hemoglobin 30.3 PG Mean Corpuscular Hemoglobin 33.5 % Concent Red Cell Distribution Width 16.6 % Platelet Count 138 TH/MM3 Mean Platelet Volume 9.1 FL Neutrophils (%) (Auto) 90.5 % Lymphocytes (%) (Auto) 3.3 % Monocytes (%) (Auto) 6.0 % Eosinophils (%) (Auto) 0.0 % Basophils (%) (Auto) 0.2 % Neutrophils # (Auto) 12.9 TH/MM3 Lymphocytes # (Auto) 0.5 TH/MM3 Monocytes # (Auto) 0.9 TH/MM3 Eosinophils # (Auto) 0.0 TH/MM3 Basophils # (Auto) 0.0 TH/MM3 CBC Comment AUTO DIFF Differential Total Cells 100 Counted Neutrophils % (Manual) 88 % Band Neutrophils % 2 % Lymphocytes % 4 % Monocytes % 3 % Neutrophils # (Manual) 13.3 TH/MM3 Metamyelocytes 2 % Myelocytes 1 % Differential Comment FINAL DIFF MANUAL Platelet Estimate LOW Platelet Morphology Comment NORMAL Red Cell Morphology Comment NORMAL Laboratory Tests Test 09/01/16 09/01/16 02:30 12:00 Sodium Level 157 MEQ/L Potassium Level 3.0 MEQ/L 3.8 MEQ/L Chloride Level 111 MEQ/L Carbon Dioxide Level 33.3 MEQ/L Anion Gap 13 MEQ/L Blood Urea Nitrogen 53 MG/DL Creatinine 1.62 MG/DL Estimat Glomerular Filtration 42 ML/MIN Rate Random Glucose 181 MG/DL Calcium Level 8.0 MG/DL Total Bilirubin 1.2 MG/DL Aspartate Amino Transf 24 U/L (AST/SGOT) Alanine Aminotransferase 39 U/L (ALT/SGPT) Alkaline Phosphatase 122 U/L Total Protein 5.3 GM/DL Albumin 1.9 GM/DL Imaging Chest X-Ray 09/01/16599 Signed Impressions: Service Date/Time: Thursday, September 01, 2016 03:19 - CONCLUSION: No significant interval change in bilateral pulmonary parenchymal opacity and small bilateral pleural effusions. 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 There is concentric mural thrombus. This aneurysm is not amenable to thrombin injection. Polo Moore Jr., MD Chest X-Ray 08/27/16599 Signed Impressions: Service Date/Time: August 02:27 - CONCLUSION: 1. Patchy bilateral airspace disease with improving aeration/decreasing effusions in the bases bilaterally. 2. Stable position of life support tubes. Con Valdes MD Chest X-Ray 08/26/16753 Signed Impressions: Service Date/Time: Friday, August 26, 2016 08:14 - CONCLUSION: Left IJ central line distal tip in the SVC. No pneumothorax is visualized. There is a stable appearance the lungs with bilateral airspace consolidation. Lex Malik MD Chest X-Ray 08/26/16599 Signed Impressions: Service Date/Time: Friday, August 26, 2016 04:01 - CONCLUSION: 1. Worsening bibasilar effusions/atelectasis with diffuse interstitial edema, all characteristic of CHF. 2. Endotracheal tube remains appropriately positioned above the michele Con Valdes MD Chest X-Ray 08/26/16753 Signed Impressions: Service Date/Time: Friday, August 26, 2016 08:14 - CONCLUSION: Left IJ central line distal tip in the SVC. No pneumothorax is visualized. There is a stable appearance the lungs with bilateral airspace consolidation. Lex Malik MD Renal Ultrasound 08/25/16 Signed Impressions: Service Date/Time: Wednesday, August 24, 2016 21:53 - CONCLUSION: 1. There is no hydronephrosis. Both kidneys demonstrate mild increased echotexture of the parenchyma suggesting medical renal disease. 2. Trace perihepatic free fluid and bilateral pleural effusions. Lex Malik MD Chest CT 08/25/16 Signed Impressions: Service Date/Time: Thursday, August 25, 2016 21:20 - CONCLUSION: 1. Bilateral pneumonia and aspiration would be in the differential. There is dependent consolidation/atelectasis and small effusions of the bases as well. 2. Upper limits of normal to mildly enlarged mediastinal lymph nodes, most likely reactive. 3. Coronary artery calcification. 4. Right rib fractures, including acute fractures laterally of the third, fourth and fifth. There are old, healed fractures anteriorly of the right second and third ribs.. Lex Lopez MD Abdomen/Pelvis CT 08/25/16 Signed Impressions: Service Date/Time: Thursday, August 25, 2016 20:20 - CONCLUSION: 1. Ventral hernia containing small bowel and with associated small bowel obstruction. The defect is broad; I believe the obstruction is probably related to scarring and/or adhesions within the hernia sac. I don't see a mass. 2. Distended stomach despite NG tube present. 3. Severe aortoiliac atherosclerosis. No aneurysm. Lex Lopez MD Abdomen X-Ray 08/24/16 Signed Impressions: Service Date/Time: Wednesday, August 24, 2016 17:19 - CONCLUSION: 1. Small bowel dilatation which reflect ileus or obstruction. Followup examination is recommended if clinically indicated. Gareth Escalante MD Physical Exam GENERAL: Awake, and intubated, not in distress. On CPAP, occ responds SKIN: Warm and dry. No generalized rash or ecchymosis. HEAD: Atraumatic. Normocephalic. No temporal or scalp tenderness. EYES: Pale conjunctivae, no petechia or hemorrhage. Pupils equal round and reactive. No scleral icterus. No injection or drainage. ENT: Nose without bleeding, purulent drainage. Has endotracheal tube in the mouth. NGT in place NECK: Trachea midline. No JVD or lymphadenopathy. Supple. LIJ TLC looks ok CARDIOVASCULAR: Regular rate and rhythm without murmurs, gallops, or rubs. RESPIRATORY: Decreased breath sounds throughout both lung garcia. GASTROINTESTINAL: Abdomen soft, not tende, not distended. Has an incisional hernia. Has midline scar. Bowel sounds are hypoactive, no guarding. MUSCULOSKELETAL: Extremities without clubbing, cyanosis. Edema better NEUROLOGICAL: Awake, focusing occ responds PSYCH: Responding LINE: LIJ TLC no evidence of infection. Assessment & Plan Remarks IMPRESSION Sepsis present on admission and then sepsis again. Central line associated blood stream infection (CLABSI) related fungemia ( likely groin line) now discontinued. Arterial line discontinued as well. Aspiration Pneumonia: Serratia marcescens. Possible pulm edema. Diarrhea ? Cdiff vs antibiotic associated. Status post cardiorespiratory arrest, likely aspirated Findings SBO within th hernia on CT A/P Acute respiratory failure on vent. GI bleed Leukocytosis, worsening, most likely multifactorial, fungemia, due to acute GI bleed as well as aspiration and arrest COPD, oxygen dependent Previous GI bleed with workup showing gastritis, Ashley esophagitis, and polyps Large incisional ventral hernia Bladder outlet obstruction, currently has a Hammond Renal insufficiency RECOMMENDATION Continue Micafungin IV (C.glabrata fungemia) Continue Zosyn IV (for aspiration PNA) Repeat BC Follow cultures Follow CBC, CMP. Monitor progress Cardiology consult for CRISTHIAN for persistent fungemia If has a pseudoaneusym at site of femoral line will likely treat for 4 weeks with antifungal. D/W RN. D/W Nuha Nguyen MD Sep 02, 2016 13:11
--- NOTE | 2016-09-02 14:32 | HHI.CCPN ---
Subjective Remarks/Hospital Course 08/24: 71 Year-old male with a medical history significant for COPD on home oxygen who was recently admitted with suspected sepsis/H And was initiated on IV antibiotics and steroids. He had recently been evaluated by GI and underwent EGD on 08/10/2016 and was found to have moderate esophagitis, mild gastritis with pathology subsequently showing Ashley esophagitis as well as colonoscopy on 08/11/2016 with polypectomy and ablation of polyp in ascending colon with hot snare. Patient has been dealing with constipation since his admission. Today when he was trying to have a bowel movement he suddenly became less responsive and then had a large emesis which resulted in aspiration and hemodynamic collapse. Patient initially had large volume emesis with dark maroon blood. CODE BLUE cardiac arrest code was activated. On my arrival patient was in bed CPR had been initiated. Significant gastric contents was still being suctioned out of his oral cavity. ACLS protocol was continued. Patient was intubated following vigorous suctioning of gastric contents from oral cavity as well as with placement of NG tube which is hooked up to suction and about 1.5 L of gastric contents being suctioned out which appeared to be dark maroon in color. Patient initially had a pulse when CODE BLUE was called and subsequently went in PEA arrest followed by asystole during ACLS and then V. fib for which he was defibrillated with 200 J 1, CPR/ACLS protocol was continued and patient eventually had return of spontaneous circulation after about 15 minutes of CPR/ACLS. Patient was transferred to [facility] and placed on mechanical ventilation. I emergently placed left femoral central line for central vascular access and he was started on Levophed for pressor support. 2 units of O- 1 crossmatch blood were ordered and transfused stat. He also received 1 L of normal saline bolus following return of spontaneous circulation. Stat labs were ordered. His hemoglobin on ABG done post resuscitation was 5.6. I did order Protonix 80 mg IV stat followed by 8 mg per hour IV infusion. Patient remained encephalopathic though was minimally responsive following transfer to the ICU. GI consult was requested and I spoke with Dr. Zamarripa at bedside on his arrival. History was obtained by reviewing records, discussion with family/ GI as well as nursing staff. According to patient's daughter he has not been doing well for the last few months in terms of his breathing and has been using his home oxygen more often. He gets extremely short of breath even with the least exertion. 08/25: Remains encephalopathic/ sedated, [facility]. Transiently off levophed last night however back to 11 mcg/min currently. Hgb up to 9.4 following 4 units PRBCs transfused last night. 08/26: Tmax 99. Some unresponsive on the ventilator. CT abdomen/pelvis less than revealed small bowel obstruction at site of ventral hernia. No further bleeding noted. Gastric output approximately 700 cc. No bowel movement. 08/27: Tmax 99.7. Currently afebrile. Positive BM overnight approximately 1 L according to RN. No blood noted. 100 cc from gastric tube overnight. Hemoglobin corrected a properly. Likely dilutional. Noted fungemia currently issue. Opens eyes to voice. 08/28: Tmax 99.1. No BMs overnight. Minimal gastric tube output. Hemoglobin stable 9.5. Opens eyes to voice. Not following commands. Appears with singultus this morning. Subjective 08/29: 20 beat run of wide complex tachycardia overnight. Noted potassium 3.2. This is been replaced. We'll recheck this afternoon. Circuit exchange yesterday. Patient tolerating pressure control ventilation much better than PRVC/AC ventilation is low probably VQ scan. Less FiO2 requirements. No BM past 24 hour. 08/30: Unable to wean ventilator. 08/31: Patient was extubated on 08/30 however became tachypneic with use of accessory muscles of respiration and required reintubation around 6:30 PM last night and was placed back on mechanical ventilation. Currently sedated, orally intubated on mechanical ventilation. Post intubation chest x-ray suggested fluid overload for which she was given Lasix 40 mg IV with good response having made about 2.5 L urine the last 7 hours. 09/01: Remains sedated, orally intubated on mechanical ventilation. Diuresing well with Lasix. Awaiting EGD in a.m. 09/02: Little progress. CXR clearing nicely. Continue diuresis, tolerate hypernatremia. Objective Vital Signs Date Time Temp Pulse Resp B/P Pulse Ox O2 Delivery O2 Flow Rate FiO2 09/02/16 11:41 99 40 09/02/16 06:00 95 09/02/16 04:00 99.0 19 149/86 09/01/16 19:00 Mechanical Ventilator 08/30/16 15:50 5.00 Intake and Output 3/14/17 3/14/17 3/14/17 07:59 15:59 23:59 Intake Total 635 ml 690 ml 457 ml Output Total 2000 ml 1000 ml 750 ml Balance -1365 ml -310 ml -293 ml Result Diagram: 09/01/16 0230 09/01/16 1200 Imaging Last 24 hours Impressions Chest X-Ray 08/30/16 0600 Signed Impressions: Service Date/Time: Tuesday, August 30, 2016 05:00 - CONCLUSION: Increasing consolidation in the left mid and lower lung and increasing ill-defined opacity right lower lung suggesting either infiltrate or pleural effusion. Polo Saunders MD Last Impressions Lower Extremity Ultrasound 08/28/16 0000 Signed Impressions: Service Date/Time: Sunday, August 28, 2016 22:19 - CONCLUSION: 1. The study is negative for deep venous thrombosis bilateral lower extremity. 2. Distal thigh cystic lesion with arterial pattern of flow within the central lumen suggests possible aneurysm or pseudoaneurysm. 3. Stable large left popliteal cyst. Polo Saunders MD Chest X-Ray 08/28/16 0000 Signed Impressions: Service Date/Time: Sunday, August 28, 2016 13:08 - CONCLUSION: 1. Bibasilar consolidation and small effusions are slightly worse. 2. Nasogastric pulled back in the interim, tip near the GE junction currently. Lex Lopez MD Brain MRI 08/27/16 0000 Signed Impressions: Service Date/Time: August 15:13 - CONCLUSION: No evidence of acute infarct, hemorrhage, mass or edema. No findings to suggest significant anoxic injury. Kit Power MD Renal Ultrasound 08/25/16 0000 Signed Impressions: Service Date/Time: Wednesday, August 24, 2016 21:53 - CONCLUSION: 1. There is no hydronephrosis. Both kidneys demonstrate mild increased echotexture of the parenchyma suggesting medical renal disease. 2. Trace perihepatic free fluid and bilateral pleural effusions. Lex Malik MD Chest CT 08/25/16 0000 Signed Impressions: Service Date/Time: Thursday, August 25, 2016 21:20 - CONCLUSION: 1. Bilateral pneumonia and aspiration would be in the differential. There is dependent consolidation/atelectasis and small effusions of the bases as well. 2. Upper limits of normal to mildly enlarged mediastinal lymph nodes, most likely reactive. 3. Coronary artery calcification. 4. Right rib fractures, including acute fractures laterally of the third, fourth and fifth. There are old, healed fractures anteriorly of the right second and third ribs.. Lex Lopez MD Abdomen/Pelvis CT 08/25/16 0000 Signed Impressions: Service Date/Time: Thursday, August 25, 2016 20:20 - CONCLUSION: 1. Ventral hernia containing small bowel and with associated small bowel obstruction. The defect is broad; I believe the obstruction is probably related to scarring and/or adhesions within the hernia sac. I don't see a mass. 2. Distended stomach despite NG tube present. 3. Severe aortoiliac atherosclerosis. No aneurysm. Lex Lopez MD Abdomen X-Ray 08/24/16 0000 Signed Impressions: Service Date/Time: Wednesday, August 24, 2016 17:19 - CONCLUSION: 1. Small bowel dilatation which reflect ileus or obstruction. Followup examination is recommended if clinically indicated. Gareth Escalante MD Objective Remarks GENERAL: 71-year-old male, critically ill. SKIN: Warm and dry. No rash HEAD: Atraumatic. Normocephalic. ENT: No nasal bleeding or discharge. Mucous membranes pink and moist. NECK: Trachea midline. Left IJ clean dry and intact CARDIOVASCULAR: Tachycardic, RR. S1, S2. No S4. Without murmur. No JVD. RESPIRATORY: VDRF, scattered rhonchi bilaterally, no wheezing. Breath sounds equal bilaterally. GASTROINTESTINAL: Soft, no guarding. Hypoactive bowel sounds. MUSCULOSKELETAL: Extremities with 1+ upper and lower extremity peripheral edema. No obvious deformities. NEUROLOGICAL: Sedated, orally intubated on mechanical ventilation. Responds on the ventilator to physical stimulation. Withdraws to pain in all 4 extremities Date of Insertion: Aug 26, 2016 Line: Central Venous Catheter Side: Left Location: Internal, Jugular A/P Assessment and Plan Neuro/Psych: Status post CPR 15 minutes - possible anoxic encephalopathy Depression NOS Follow neuro status. Propofol for sedation, daily sedation vacation Goal of RASS -2. Concern for anoxic encephalopathy following cardiac arrest. EEG 08/25 revealed mild to moderate encephalopathy. No epileptiform activity. MRI brain 08/27 revealed no acute findings. Holding trazodone 50 mg at night for depression Cardiovascular: Cardiac arrest status post CPR Elevated troponin History dyslipidemia History of hypertension PVD Systemic shock likely secondary to sepsis/aspiration/small bowel obstruction Possible pseudoaneurysm Off all vasopressors Currently D5W at 40 cc an hour. Continue diuresis with Lasix Continue Cardizem at 30 mg 4 times a day since blood pressures normalized. Not on any lipid-lowering agents at home. Cardiac arrest status post CPR. s/p aggressive fluid resuscitation. 5 units PRBCs transfused to date minimal troponin elevation following cardiac arrest noted. Echo 2D revealed EF 35-40%. Moderate LVH. Mitral valve calcified. Mild TR. IR consultation for occlusion of pseudoaneurysm Pulmonary: Acute respiratory failure secondary to aspiration pneumonia End-stage COPD. Oxygen dependent FEV1 28%, FVC 1.6. PRVC 16/550/5/50 Duo nebs every 4 hours and as needed, At home on Symbicort 160/4.5 twice a day and duo nebs 4 times a day Switched to Pulmicort twice a day Currently on Solu-Medrol 40 mEq IV every 8 hours. Wean Titrate FiO2 down provided O2 sat greater than 90%. CT chest revealed small pleural effusions bilaterally with likely aspiration VQ scan low probability Diurese with Lasix. Spontaneous breathing trials to decide extubation GI/liver: History of ventral hernia Hypokalemia Resume tube feeds after repeat EGD which is scheduled for 09/01 Protonix 80 mg IV bolus followed by 8 mg/h IV infusion. GI following EGD revealed 25 cm proximal esophagus with possible bleeding. Rule out aorto esophageal fistula. Dr. roberts/general surgery evaluated. Does not believe abdomen surgical the present time. GI. Small bowel obstruction Upper GI bleed plus esophageal rule out aorto esophageal fistula History of Ashley esophagitis History of colonic polyps History of ventral hernia status post repair last by Dr. Roberts CT abdomen/pelvis the sesamoid revealed small bowel obstruction level but hernia. Severe aortoiliac disease. Dr. roberts/general surgery evaluated. Very poor surgical candidate this time. EGD 08/25 revealed esophageal nipple. Clots noted within the gastric contents without active bleeding. Recommended CTA rule out aorto esophageal fistula however cannot perform due to elevated creatinine. Hemoglobin appears stable. Gilles if continues upper GI bleed Resumed NG tube feeds after EGD in a.m. Renal/: Acute kidney injury History of bladder outlet obstruction IV hydration, strict intake output, monitor and replete electro lites, follow BUN creatinine. Currently holding Flomax 0.4 mg daily No hydronephrosis on CT abdomen/pelvis Negative urine eosinophils. ID: UTI Sepsis Fungemia Repeat blood and sputum cultures, UA and urine cultures have indicated. Appreciate ID consult with worsening leukocytosis and septic shock Empiric antibiotic coverage with IV vancomycin and Zosyn to be continued. IV Diflucan started by GI for Ashley esophagitis. Started on IV micafungin 08/26 secondary to yeast in blood. Pertinent cultures 08/28 - blood from central line -no growth 08/27 -arterial line blood - pending 08/26 - sputum -Serratia 08/25 - blood cultures 2 -Ashley 08/25 - urine -no growth 08/22 - blood cultures 2 - no growth 08/21 - urine - no growth 08/20 - blood cultures 2 - 1 out of 4 staph epi Endocrine: Chronic prednisone use secondary to COPD SSI for glycemic control as needed. Currently on Solu-Medrol 40 mg IV every 8 hours Heme: Acute blood loss anemia History of prostate cancer Leukocytosis Status post 4 units PRBCs ands 2 units FFP on 08/24. Given one unit PRBCs 08/26 Follow CBC and coags. FEN: Hypokalemia Hyperphosphatemia Replace electrolytes as clinically indicated AM labs pending. MSK: PT/OT evaluate and treat Access - Left IJ CVL day 7 Prophylaxis - GI -Protonix drip - DVT - SCD/pharmacological prophylaxis contraindicated with GI bleed Overall impression: Critically ill with ventilator dependent respiratory failure. Unable to wean ventilator; made difficult due to depressed LV function and diastolic compliance issues. Continue diuresis. Treat fungemia, assume related to now removed femoral central line. Jerzy Snowden MD Sep 02, 2016 14:32
[2016-09-02] MEDS: FUROSEMIDE 40 MG/4 ML VIAL IV PUSH SCH (15:28)
[2016-09-02] MEDS: D5W + KCL 20 MEQ INJ 1,000 ML IV SCH (15:29)
--- NOTE | 2016-09-02 22:15 | MB ---
cc: GRDAY VIDALES DO DATE OF CONSULTATION: 09/02/2016 REASON FOR CONSULTATION: Fungemia, consideration of CRISTHIAN HISTORY OF PRESENT ILLNESS Ravindra Thomason is a 71-year-old male who originally presented to [facility] emergency room on August 20, 2016 due to increased weakness, nausea and poor appetite. He was found to have healthcare associated pneumonia and sepsis. Since then he has had a long course including a PEA arrest followed by asystole and then ventricular fibrillation for which he was defibrillated on August 24, 2016. At that time he was intubated then on August 30, he was extubated but then became tachypneic requiring reintubation. At the time of seeing him he continues to be intubated. During his hospitalization he has been noted to have a white blood cell count up to 58 and it is now down to 14.3. Blood cultures were done with previous ones on August 25 showing Ashley albicans and Ashley glabrata. Sputum culture showed Serratia marcescens. He had been started on Micafungin IV. There was a concern for fungemia likely related to a femoral line. I was asked by Infectious Disease for consideration of CRISTHIAN for persistent fungemia. PAST MEDICAL HISTORY 1. Hypertension 2. COPD, oxygen-dependent 3. Prostate cancer 4. Bladder outlet obstruction. 5. Hyperlipidemia 6. Recent Ashley esophagitis. 7. History of perforated ulcer. 8. Colon polyp. PAST SURGICAL HISTORY: 1. Ventral hernia. 2. Appendectomy. 3. Surgery for perforated gastric ulcer. 4. Cataract surgery. 5. EGD colonoscopy. ALLERGIES NO KNOWN DRUG ALLERGIES. HOME MEDICATIONS: 1. Symbicort 2 puffs b.i.d. 2. Prednisone 5 mg as directed 3. Flomax 0.4 milligrams every night. 4. Trazodone 50 milligrams every night. 5. Combivent one puff every 4 hours as needed. 6. DuoNeb every six hours as needed. 7. Cardizem CD 120 milligrams daily. 8. Ceftin 500 milligrams every 12 hours. 9. [place] 325 milligrams every four hours as needed. 10. Protonix 40 milligrams daily. FAMILY HISTORY Includes dementia, no mention of premature coronary artery disease or sudden cardiac within the family. SOCIAL HISTORY: The patient smokes one pack of cigarettes a day. REVIEW OF SYSTEMS: Unobtainable, due to the patient currently being sedated and intubated. PHYSICAL EXAMINATION: Vital signs: Temperature 99.3, heart rate 76, blood pressure 146/86, respirations 20, pulse ox 98% on FIO2 40%. In general, the patient is intubated with mild sedation but is arousable. Critically ill appearing. HEENT: Extraocular muscles intact. ET tube in place. Neck: Supple. No JVD at 45 degrees. No carotid bruits heard bilaterally. Carotid upstroke is brisk in nature. Left IJ in place. Heart: Regular rate and rhythm. Positive first and second heart sounds with no noted, no murmurs. Lungs: Scattered rhonchi bilaterally but no wheezes or rales. Abdomen: Soft, nontender, nondistended noted. Positive for a ventral hernia. Extremities: 1+ pitting edema. No clubbing or cyanosis. Neurologically: He is mildly sedated but arousable. Skin: Warm, dry and intact. Osteopathic: Mild kyphoscoliosis, no lordosis or paraspinal tender points. LABORATORY FINDINGS White blood cells 14.3, hemoglobin 8.8, hematocrit 26.2, platelets 138. Potassium 3.8, BUN 53, creatinine 1.62. IMPRESSION 1. Persistent fungemia. 2. Vent dependent respiratory failure. 3. PEA arrest leading to asystole and then ventricular fibrillation requiring defibrillation with CPR. 4. Mildly elevated troponin most likely secondary to cardiac arrest and ventricular fibrillation including defibrillation 5. Systemic shock. 6. Acute respiratory failure secondary to aspiration pneumonia. 7. End-stage COPD on home oxygen. 8. History of Ashley esophagitis. RECOMMENDATIONS 1. Because of Mr. Lowe's persistent funemia, I have been requested for CRISTHIAN. Because he has active esophagitis, this will have to be discussed with GI further, as this is a relative contraindication for CRISTHIAN. 2. Will plan on stopping his tube feeds in the morning and if cleared by GI, will plan on doing CRISTHIAN in the morning. 3. As far as his elevated troponin, this is most likely due to cardiac arrest, ventricular fibrillation and cardioversion. Further recommendations will be made based on hospital course. Thank you for allowing me to see Ravindra Lowe. If there are any questions please do not hesitate to call. Grady LICONA/VLADISLAV /8:32 PM /9:34 PM
[2016-09-03] VITALS (18 sets, daily range): BP systolic 104–158; BP diastolic 65–83; PULSE 69–102; RESP 17–22; TEMP 98–99.1; O2SAT 93–99
[2016-09-03] MEDS: PROPOFOL 1000 MG/100 ML INJ 100 ML IV SCH ×4 (01:03→17:57)
[2016-09-03] MEDS: PIPERACIL-TAZO 3.375 GM PREMIX 50 ML IV SCH ×4 (03:00→20:07)
[2016-09-03] MEDS: methylPREDNISolone SOD SUCC 40 MG/1 ML VIAL IV PUSH SCH ×3 (03:00→20:07)
[2016-09-03] MEDS: PANTOPRAZOLE INJ 80 MG in SODIUM CHLORIDE 0.9% INJ 100 ML IV SCH (07:39)
[2016-09-03] MEDS: RESP: BUDESONIDE 0.5 MG/2 ML NEB NEB SCH ×2 (08:24→19:46)
[2016-09-03] MEDS: RESP: ALBUTEROL 2.5 MG/IPRATROPIUM 0.5 MG NEB (PRN) INH ×2 (08:35→19:46)
[2016-09-03] MEDS ORDERED: PANTOPRAZOLE SODIUM 40 MG VIAL IV PUSH SCH (08:45)
[2016-09-03] MEDS: FUROSEMIDE 40 MG/4 ML VIAL IV PUSH SCH (09:31)
[2016-09-03] MEDS: MULTIVITAMIN TAB PO SCH (09:32)
[2016-09-03] MEDS: PANTOPRAZOLE SODIUM 40 MG VIAL IV PUSH SCH ×2 (09:32→20:07)
[2016-09-03] MEDS: DILTIAZEM HCL 30 MG TAB PO SCH ×4 (09:32→20:07)
[2016-09-03] MEDS: SODIUM CHLORIDE 0.9% FLUSH 5 ML FLUSH IVF SCH (09:32)
[2016-09-03 10:54] LABS: AUTOMATED NEUTROPHIL # 16.9 TH/MM3 (1.8-7.7); BASOPHIL % 0.2 % (0.0-2.0); HEMATOCRIT 28.2 % (39.0-51.0); LYMPHOCYTE # 0.7 TH/MM3 (1.0-4.8); MEAN CELL VOLUME 91.6 FL (80.0-100.0); MEAN CORPUSCULAR HEMOGLOBIN 29.7 PG (27.0-34.0); MEAN CORPUSCULAR HGB CONC 32.4 % (32.0-36.0); MONO % 3.8 % (0.0-8.0); PLATELET COUNT 127 TH/MM3 (150-450); RED BLOOD COUNT 3.08 MIL/MM3 (4.50-5.90); RED CELL DISTRIBUTION WIDTH 17.1 % (11.6-17.2); WHITE BLOOD COUNT 18.4 TH/MM3 (4.0-11.0)
[2016-09-03 10:55] LABS: HEMO FLAGS AUTO DIFF
[2016-09-03 11:06] LABS: BICARBONATE 36.9 MEQ/L (21.0-32.0)
[2016-09-03 11:08] LABS: POTASSIUM 2.7 MEQ/L (3.5-5.1)
[2016-09-03] MEDS: MICAFUNGIN INJ 100 MG in SODIUM CHLORIDE 0.9% INJ 100 ML IV SCH (11:49)
[2016-09-03] MEDS: NOREPINEPHRINE-DEXTROSE DRIP 250 ML IV SCH (11:50)
[2016-09-03] MEDS: POTASSIUM CHLOR 40 MEQ PREMIX 100 ML IV PRN ×2 (11:50→17:30)
[2016-09-03] MEDS ORDERED: MIDAZOLAM HCL 5 MG/ML VIAL (1 ML) ONE (11:55)
[2016-09-03 12:03] LABS: BANDS 4 % (0-6); CORRECTED NUCLEATED RBC 1 /100 WBC (0-0); METAMYELOCYTES 2 % (0-1); MYELOCYTES 1 % (0-0); NEUTROPHIL # MANUAL DIFF 16.9 TH/MM3 (1.8-7.7); POLYS (SEG NEUTROPHILS) 85 % (16-70); TOXIC GRANULATION 2+ (NORMAL); WBC DIFF SAMPLE 100
[2016-09-03 12:04] LABS: PLATELET ESTIMATE SMEAR LOW (NORMAL); PLATELET MORPHOLOGY NORMAL (NORMAL); SCAN/DIFF FINAL DIFF MANUAL
[2016-09-03] MEDS ORDERED: MIDAZOLAM HCL 5 MG/5 ML VIAL IV PUSH ONE (13:00)
--- NOTE | 2016-09-03 13:56 | PD.CARD.PN ---
Subjective Subjective Remarks No events over night, comfortable on the vent Awake on the vent Objective Medications Current Medications Medications (Trade) Dose Ordered Sig/Tee Route Start Time Stop Time Status Last Admin (Robitussin Dm 200-20 Mg/10 ml Liq) 10 ml Q4H PRN PO 08/20/16 14:30 Multivitamins 1 tab 1 tab DAILY PO 08/21/16 09:00 09/03/16 09:32 Piperacillin Sod/ Tazobactam Sod 50 ml @ 100 mls/hr Q6H IV 08/24/16 15:00 09/03/16 09:31 Midazolam HCl 100 ml @ 0 mls/hr TITRATE IV 08/24/16 16:45 08/30/16 05:15 (Levophed-Dextrose Drip) 250 ml @ 0 mls/hr TITRATE IV 08/25/16 10:00 09/03/16 11:50 (Brethine Inj) 1 mg UNSCH PRN SQ 08/25/16 10:00 (NS Flush) DAILY IVF 08/26/16 09:00 09/03/16 09:32 IV Flush UNSCH PRN IVF 08/26/16 08:00 08/27/16 05:42 Micafungin Sodium 100 mg/Sodium Chloride 100 ml @ 100 mls/hr Q24H IV 08/26/16 12:00 09/03/16 11:49 (Precedex Inj) 50 ml @ 0 mls/hr TITRATE IV 08/27/16 07:30 (Cardizem) 30 mg QID PO 08/28/16 13:00 09/03/16 09:32 (SoluMEDROL INJ) 40 mg Q8H IV PUSH 08/29/16 04:00 09/03/16 11:49 (Nitroglycerin 2% Oint) 2 inch Q6HR PRN TOPICAL 08/29/16 16:45 (Apresoline Inj) 10 mg Q1HR PRN IV PUSH 08/29/16 16:45 09/01/16 00:13 Labetalol HCl 10 mg 10 mg Q1HR PRN IV PUSH 08/29/16 16:45 08/30/16 18:06 Potassium Chloride 100 ml @ 50 mls/hr Q2H PRN IV 08/30/16 15:30 09/03/16 11:50 Potassium Chloride 100 ml @ 50 mls/hr Q2H PRN IV 08/30/16 15:30 Potassium Chloride 100 ml @ 25 mls/hr UNSCH PRN IV 08/30/16 15:30 Potassium Chloride 100 ml @ 50 mls/hr Q2H PRN IV 08/30/16 15:30 (Magnesium Sulfate Inj/NS Inj) 100 ml @ 50 mls/hr UNSCH PRN IV 08/30/16 15:30 Magnesium Oxide 800 mg 800 mg UNSCH PRN PO 08/30/16 15:30 (Magnesium Sulfate Inj/NS Inj) 100 ml @ 50 mls/hr UNSCH PRN IV 08/30/16 15:30 08/31/16 08:03 Potassium Phosphate 2000 mg 2,000 mg Q4H PRN PO 08/30/16 15:30 (Sodium Phosphate Inj/NS 250 ml Inj) 250 ml @ 42 mls/hr UNSCH PRN IV 08/30/16 15:30 Potassium Phosphate 2000 mg 2,000 mg UNSCH PRN PO/TUBE 08/30/16 15:30 Potassium Phosphate 30 mmol/ Sodium Chloride 260 ml @ 42 mls/hr UNSCH PRN IV 08/30/16 15:30 08/30/16 16:24 Potassium Chloride/Dextrose 1,000 ml @ 30 mls/hr Q24H IV 08/30/16 18:00 09/01/16 16:58 (Diprivan 1000 Mg/100ml Inj) 100 ml @ 0 mls/hr TITRATE IV 08/30/16 19:15 09/03/16 07:12 (Lasix Inj) 40 mg DAILY IV PUSH 09/02/16 15:00 09/03/16 09:31 (Protonix Inj) 40 mg Q12H IV PUSH 09/03/16 09:00 09/03/16 09:32 Vital Signs / I&O Vital Signs Date Time Temp Pulse Resp B/P Pulse Ox O2 Delivery O2 Flow Rate FiO2 09/03/16 11:40 93 50 09/03/16 08:24 93 40 09/03/16 08:24 40 09/03/16 06:00 69 09/03/16 04:53 93 40 09/03/16 04:00 98.9 79 22 127/71 97 09/03/16 04:00 69 09/03/16 02:00 80 09/03/16 01:45 97 40 09/03/16 00:00 99.1 76 21 142/73 97 09/03/16 00:00 77 09/02/16 22:03 97 40 09/02/16 22:00 75 09/02/16 20:00 99.0 64 17 161/86 98 09/02/16 20:00 64 09/02/16 20:00 64 Mechanical Ventilator 40 09/02/16 18:00 76 09/02/16 16:00 99.3 78 21 146/86 98 09/02/16 16:00 78 09/02/16 14:00 89 I/O 09/02/16 09/02/16 09/02/16 09/03/16 09/03/16 09/03/16 07:00 15:00 23:00 07:00 15:00 23:00 Intake Total 706 ml 923 ml 745 ml 53 ml Output Total 1000 ml 850 ml 2200 ml 950 ml Balance -294 ml 73 ml -1455 ml -897 ml IV Total 513 ml 514 ml 410 ml 53 ml Tube Feeding 193 ml 349 ml 245 ml Other 60 ml 90 ml Output Urine Total 1000 ml 850 ml 2200 ml 950 ml Stool Total 0 ml # Bowel Movements 0 2 1 Physical Exam GENERAL: NAD, awake on the vent SKIN: Warm and dry. HEAD: Atraumatic. Normocephalic. EYES: Pupils equal and round. No scleral icterus. No injection or drainage. ENT: No nasal bleeding or discharge. Tongue with multiple lesions, ETT in place NECK: Trachea midline. No JVD. CARDIOVASCULAR: Regular rate and rhythm. RESPIRATORY: No accessory muscle use. Decreased breath sounds bilaterally GASTROINTESTINAL: Abdomen soft, non-tender, nondistended. Hepatic and splenic margins not palpable. MUSCULOSKELETAL: Extremities without clubbing, cyanosis, or edema. No obvious deformities. NEUROLOGICAL: No focal deficits noted Laboratory Laboratory Tests Test 09/03/16 10:36 White Blood Count 18.4 TH/MM3 Red Blood Count 3.08 MIL/MM3 Hemoglobin 9.2 GM/DL Hematocrit 28.2 % Mean Corpuscular Volume 91.6 FL Mean Corpuscular Hemoglobin 29.7 PG Mean Corpuscular Hemoglobin 32.4 % Concent Red Cell Distribution Width 17.1 % Platelet Count 127 TH/MM3 Mean Platelet Volume 9.3 FL Neutrophils (%) (Auto) 92.0 % Lymphocytes (%) (Auto) 4.0 % Monocytes (%) (Auto) 3.8 % Eosinophils (%) (Auto) 0.0 % Basophils (%) (Auto) 0.2 % Neutrophils # (Auto) 16.9 TH/MM3 Lymphocytes # (Auto) 0.7 TH/MM3 Monocytes # (Auto) 0.7 TH/MM3 Eosinophils # (Auto) 0.0 TH/MM3 Basophils # (Auto) 0.0 TH/MM3 CBC Comment AUTO DIFF Differential Total Cells 100 Counted Neutrophils % (Manual) 85 % Band Neutrophils % 4 % Lymphocytes % 5 % Monocytes % 3 % Neutrophils # (Manual) 16.9 TH/MM3 Metamyelocytes 2 % Myelocytes 1 % Nucleated Red Blood Cells 1 /100 WBC Differential Comment FINAL DIFF MANUAL Toxic Granulation 2+ Platelet Estimate LOW Platelet Morphology Comment NORMAL Sodium Level 154 MEQ/L Potassium Level 2.7 MEQ/L Chloride Level 110 MEQ/L Carbon Dioxide Level 36.9 MEQ/L Anion Gap 7 MEQ/L Blood Urea Nitrogen 37 MG/DL Creatinine 1.24 MG/DL Estimat Glomerular Filtration 58 ML/MIN Rate Random Glucose 125 MG/DL Calcium Level 8.0 MG/DL Assessment and Plan Problem List: (1) HCAP (healthcare-associated pneumonia) (2) COPD exacerbation (3) Sepsis (4) Acute kidney injury (5) NSTEMI (non-ST elevated myocardial infarction) (6) PEA (Pulseless electrical activity) (7) Ventricular fibrillation (8) Fungemia Assessment and Plan 1) Fungemia for CRISTHIAN today 2) Does have mild esophagitis, discussed with Dr. Calderon, amy with CRISTHIAN 3) Discussed with the family about risk, benefits and alternatives 4) Tube feeds stopped this morning 5) NSTEMI due to PEA arrest, then asystole then V-fib Problem Qualifiers (1) Sepsis: Qualified Code: A41.9 - Sepsis, due to unspecified organism Grady Romero DO Sep 03, 2016 13:55
--- NOTE | 2016-09-03 14:03 | HHI.IDPN ---
Subjective Subjective Remarks is a 71 y/o CM with COPD and oxygen dependent, Ashley esophagitis, prior h/o pneumonia. According to the since the patient was discharged he continued to have nausea and vomiting. He has not had any bowel movement, and she thinks in the last 3 weeks. Patient started having more weakness, and was getting more short of breath, so the patient presented back to the hospital and was admitted August 20. He was admitted as a COPD exacerbation and pneumonia. He was put on empiric antibiotics. Patient had in hospital cardiorespiratory arrest. He was successfully resuscitated, and intubated. Patient had an A- line in arm, CL in groin which was changed on 08/27/16. 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 Patient continues to have elevated WBC, and is being treated for sepsis secondary to aspiration PNA, Fungemia likely line related (groin line likely now DCed). Notes reviewed Daughter in the room CRISTHIAN done this morning No report yet, but daughter was told prelim look ok Last (+) BC 08/27 with C glabrata Patient is afebrile Sedated on the vent On levophed First (+) BC with C albicans and C glabrata Last (+) BC 08/27 Has pseudoaneurysm R femoral artery Sputum with Serratia CXR stable ne opacities WBC up to 18K again Antibiotics Zosyn IV (aspiration PNA) IV Micafungin (for fungal line infection) Lines L I J central line Past Medical History Hypertension COPD O2 dependent prostate cancer Bladder outlet obstruction Hyperlipidemia Past Surgical History Ventral hernia Appendectomy Perforated gastric ulcer surgery Cataract Upper and lower endoscopy Allergies: Coded Allergies: *MDRO Multi-Drug Resistant Organism (Verified Adverse Reaction, Unknown, ) MRSA (abdominal wound) 2015 per 04/10/2015 H&P MRSA PCR Screen #1 NEGATIVE - 08/21/16 Objective . Vital Signs Date Time Temp Pulse Resp B/P Pulse Ox O2 Delivery O2 Flow Rate FiO2 09/03/16 11:40 93 50 09/03/16 08:24 93 40 09/03/16 08:24 40 09/03/16 06:00 69 09/03/16 04:53 93 40 09/03/16 04:00 98.9 79 22 127/71 97 09/03/16 04:00 69 09/03/16 02:00 80 09/03/16 01:45 97 40 09/03/16 00:00 99.1 76 21 142/73 97 09/03/16 00:00 77 09/02/16 22:03 97 40 09/02/16 22:00 75 09/02/16 20:00 99.0 64 17 161/86 98 09/02/16 20:00 64 09/02/16 20:00 64 Mechanical Ventilator 40 09/02/16 18:00 76 09/02/16 16:00 99.3 78 21 146/86 98 09/02/16 16:00 78 09/02/16 14:00 89 09/02/16 09/02/16 09/03/16 15:00 23:00 07:00 Intake Total 923 ml 745 ml 53 ml Output Total 850 ml 2200 ml 950 ml Balance 73 ml -1455 ml -897 ml IV Total 514 ml 410 ml 53 ml Tube Feeding 349 ml 245 ml Other 60 ml 90 ml Output Urine Total 850 ml 2200 ml 950 ml # Bowel Movements 0 2 1 . Laboratory Tests Test 09/03/16 10:36 White Blood Count 18.4 TH/MM3 Red Blood Count 3.08 MIL/MM3 Hemoglobin 9.2 GM/DL Hematocrit 28.2 % Mean Corpuscular Volume 91.6 FL Mean Corpuscular Hemoglobin 29.7 PG Mean Corpuscular Hemoglobin 32.4 % Concent Red Cell Distribution Width 17.1 % Platelet Count 127 TH/MM3 Mean Platelet Volume 9.3 FL Neutrophils (%) (Auto) 92.0 % Lymphocytes (%) (Auto) 4.0 % Monocytes (%) (Auto) 3.8 % Eosinophils (%) (Auto) 0.0 % Basophils (%) (Auto) 0.2 % Neutrophils # (Auto) 16.9 TH/MM3 Lymphocytes # (Auto) 0.7 TH/MM3 Monocytes # (Auto) 0.7 TH/MM3 Eosinophils # (Auto) 0.0 TH/MM3 Basophils # (Auto) 0.0 TH/MM3 CBC Comment AUTO DIFF Differential Total Cells 100 Counted Neutrophils % (Manual) 85 % Band Neutrophils % 4 % Lymphocytes % 5 % Monocytes % 3 % Neutrophils # (Manual) 16.9 TH/MM3 Metamyelocytes 2 % Myelocytes 1 % Nucleated Red Blood Cells 1 /100 WBC Differential Comment FINAL DIFF MANUAL Toxic Granulation 2+ Platelet Estimate LOW Platelet Morphology Comment NORMAL Laboratory Tests Test 09/03/16 10:36 Sodium Level 154 MEQ/L Potassium Level 2.7 MEQ/L Chloride Level 110 MEQ/L Carbon Dioxide Level 36.9 MEQ/L Anion Gap 7 MEQ/L Blood Urea Nitrogen 37 MG/DL Creatinine 1.24 MG/DL Estimat Glomerular Filtration 58 ML/MIN Rate Random Glucose 125 MG/DL Calcium Level 8.0 MG/DL Microbiology Date/Time Procedure Status Source Growth 09/02/16 14:05 Aerobic Blood Culture - Preliminary Resulted Blood Peripheral NO GROWTH IN 1 DAY 09/02/16 14:05 Anaerobic Blood Culture - Preliminary Resulted Blood Peripheral NO GROWTH IN 1 DAY 09/03/16 03:48 Aerobic Blood Culture Received Blood Peripheral Pending 09/03/16 03:48 Anaerobic Blood Culture Received Blood Peripheral Pending Imaging Chest X-Ray 09/01/16 0600 Signed Impressions: Service Date/Time: Thursday, September 01, 2016 03:19 - CONCLUSION: No significant interval change in bilateral pulmonary parenchymal opacity and small bilateral pleural effusions. 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 There is concentric mural thrombus. This aneurysm is not amenable to thrombin injection. Polo Moore Jr., MD Chest X-Ray 08/27/16 0600 Signed Impressions: Service Date/Time: August 02:27 - CONCLUSION: 1. Patchy bilateral airspace disease with improving aeration/decreasing effusions in the bases bilaterally. 2. Stable position of life support tubes. Con Valdes MD Chest X-Ray 08/26/16 0754 Signed Impressions: Service Date/Time: Friday, August 26, 2016 08:14 - CONCLUSION: Left IJ central line distal tip in the SVC. No pneumothorax is visualized. There is a stable appearance the lungs with bilateral airspace consolidation. Lex Malik MD Chest X-Ray 08/26/16 0600 Signed Impressions: Service Date/Time: Friday, August 26, 2016 04:01 - CONCLUSION: 1. Worsening bibasilar effusions/atelectasis with diffuse interstitial edema, all characteristic of CHF. 2. Endotracheal tube remains appropriately positioned above the michele Con Valdes MD Chest X-Ray 08/26/16 0754 Signed Impressions: Service Date/Time: Friday, August 26, 2016 08:14 - CONCLUSION: Left IJ central line distal tip in the SVC. No pneumothorax is visualized. There is a stable appearance the lungs with bilateral airspace consolidation. Lex Malik MD Renal Ultrasound 08/25/16 0000 Signed Impressions: Service Date/Time: Wednesday, August 24, 2016 21:53 - CONCLUSION: 1. There is no hydronephrosis. Both kidneys demonstrate mild increased echotexture of the parenchyma suggesting medical renal disease. 2. Trace perihepatic free fluid and bilateral pleural effusions. Lex Malik MD Chest CT 08/25/16 0000 Signed Impressions: Service Date/Time: Thursday, August 25, 2016 21:20 - CONCLUSION: 1. Bilateral pneumonia and aspiration would be in the differential. There is dependent consolidation/atelectasis and small effusions of the bases as well. 2. Upper limits of normal to mildly enlarged mediastinal lymph nodes, most likely reactive. 3. Coronary artery calcification. 4. Right rib fractures, including acute fractures laterally of the third, fourth and fifth. There are old, healed fractures anteriorly of the right second and third ribs.. Lex Lopez MD Abdomen/Pelvis CT 08/25/16 0000 Signed Impressions: Service Date/Time: Thursday, August 25, 2016 20:20 - CONCLUSION: 1. Ventral hernia containing small bowel and with associated small bowel obstruction. The defect is broad; I believe the obstruction is probably related to scarring and/or adhesions within the hernia sac. I don't see a mass. 2. Distended stomach despite NG tube present. 3. Severe aortoiliac atherosclerosis. No aneurysm. Lex Lopez MD Abdomen X-Ray 08/24/16 0000 Signed Impressions: Service Date/Time: Wednesday, August 24, 2016 17:19 - CONCLUSION: 1. Small bowel dilatation which reflect ileus or obstruction. Followup examination is recommended if clinically indicated. Gareth Escalante MD Physical Exam GENERAL: sedated, and intubated, on the vent, NAD SKIN: Warm and dry. No generalized rash HEENT: Pale conjunctivae, no petechia or hemorrhage. No scleral icterus. No injection or drainage. Has endotracheal tube in the mouth. NGT in place NECK: Trachea midline. No JVD or lymphadenopathy. Supple. LIJ TLC looks ok CARDIOVASCULAR: Regular rate and rhythm without murmurs, gallops, or rubs. RESPIRATORY: Decreased breath sounds throughout both lung garcia. GASTROINTESTINAL: Abdomen soft, not tender, not distended. Has an incisional hernia. Has midline scar. Bowel sounds are hypoactive, no guarding. No redness noted in R groin MUSCULOSKELETAL: Extremities without clubbing, cyanosis. Edema better NEUROLOGICAL: Awake, focusing occ responds PSYCH: Responding LINE: LIJ TLC no evidence of infection. Assessment & Plan Remarks IMPRESSION Sepsis present on admission and then sepsis again. Central line associated blood stream infection (CLABSI) related fungemia ( likely groin line) now discontinued. Arterial line discontinued as well. Possible pseudoaneurysm R fem artery with thrombus, concern with infection in that site, had line there previously - CRISTHIAN negative prelim Aspiration Pneumonia: Serratia marcescens. Possible pulm edema. Diarrhea ? Cdiff vs antibiotic associated. Status post cardiorespiratory arrest, likely aspirated Findings SBO within the hernia on CT A/P, clinically better Acute respiratory failure on vent. GI bleed Leukocytosis, worsening, most likely multifactorial, fungemia, due to acute GI bleed as well as aspiration and arrest COPD, oxygen dependent Previous GI bleed with workup showing gastritis, Ashley esophagitis, and polyps Large incisional ventral hernia Bladder outlet obstruction, currently has a Hammond Renal insufficiency RECOMMENDATION Continue Micafungin IV (C.glabrata fungemia) Continue Zosyn IV (for aspiration PNA) Follow cultures Follow CBC Monitor progress Has possible pseudoaneurysm at site of femoral line, and will likely treat for 4 weeks with antifungal. Spoke with daughter Nuha Fernandez MD Sep 03, 2016 14:03
--- NOTE | 2016-09-03 15:35 | HHI.CCPN ---
Subjective Remarks/Hospital Course 08/24: 71 Year-old male with a medical history significant for COPD on home oxygen who was recently admitted with suspected sepsis/H And was initiated on IV antibiotics and steroids. He had recently been evaluated by GI and underwent EGD on 08/10/2016 and was found to have moderate esophagitis, mild gastritis with pathology subsequently showing Ashley esophagitis as well as colonoscopy on 08/11/2016 with polypectomy and ablation of polyp in ascending colon with hot snare. Patient has been dealing with constipation since his admission. Today when he was trying to have a bowel movement he suddenly became less responsive and then had a large emesis which resulted in aspiration and hemodynamic collapse. Patient initially had large volume emesis with dark maroon blood. CODE BLUE cardiac arrest code was activated. On my arrival patient was in bed CPR had been initiated. Significant gastric contents was still being suctioned out of his oral cavity. ACLS protocol was continued. Patient was intubated following vigorous suctioning of gastric contents from oral cavity as well as with placement of NG tube which is hooked up to suction and about 1.5 L of gastric contents being suctioned out which appeared to be dark maroon in color. Patient initially had a pulse when CODE BLUE was called and subsequently went in PEA arrest followed by asystole during ACLS and then V. fib for which he was defibrillated with 200 J 1, CPR/ACLS protocol was continued and patient eventually had return of spontaneous circulation after about 15 minutes of CPR/ACLS. Patient was transferred to [facility] and placed on mechanical ventilation. I emergently placed left femoral central line for central vascular access and he was started on Levophed for pressor support. 2 units of O- 1 crossmatch blood were ordered and transfused stat. He also received 1 L of normal saline bolus following return of spontaneous circulation. Stat labs were ordered. His hemoglobin on ABG done post resuscitation was 5.6. I did order Protonix 80 mg IV stat followed by 8 mg per hour IV infusion. Patient remained encephalopathic though was minimally responsive following transfer to the ICU. GI consult was requested and I spoke with Dr. Zamarripa at bedside on his arrival. History was obtained by reviewing records, discussion with family/ GI as well as nursing staff. According to patient's daughter he has not been doing well for the last few months in terms of his breathing and has been using his home oxygen more often. He gets extremely short of breath even with the least exertion. 08/25: Remains encephalopathic/ sedated, orally intubated on [facility] ventilation. Transiently off levophed last night however back to 11 mcg/min currently. Hgb up to 9.4 following 4 units PRBCs transfused last night. 08/26: Tmax 99. Some unresponsive on the ventilator. CT abdomen/pelvis less than revealed small bowel obstruction at site of ventral hernia. No further bleeding noted. Gastric output approximately 700 cc. No bowel movement. 08/27: Tmax 99.7. Currently afebrile. Positive BM overnight approximately 1 L according to RN. No blood noted. 100 cc from gastric tube overnight. Hemoglobin corrected a properly. Likely dilutional. Noted fungemia currently issue. Opens eyes to voice. 08/28: Tmax 99.1. No BMs overnight. Minimal gastric tube output. Hemoglobin stable 9.5. Opens eyes to voice. Not following commands. Appears with singultus this morning. Subjective 08/29: 20 beat run of wide complex tachycardia overnight. Noted potassium 3.2. This is been replaced. We'll recheck this afternoon. Circuit exchange yesterday. Patient tolerating pressure control ventilation much better than PRVC/AC ventilation is low probably VQ scan. Less FiO2 requirements. No BM past 24 hour. 08/30: Unable to wean ventilator. 08/31: Patient was extubated on 08/30 however became tachypneic with use of accessory muscles of respiration and required reintubation around 6:30 PM last night and was placed back on mechanical ventilation. Currently sedated, orally intubated on mechanical ventilation. Post intubation chest x-ray suggested fluid overload for which she was given Lasix 40 mg IV with good response having made about 2.5 L urine the last 7 hours. 09/01: Remains sedated, orally intubated on mechanical ventilation. Diuresing well with Lasix. Awaiting EGD in a.m. 09/02: Little progress. CXR clearing nicely. Continue diuresis, tolerate hypernatremia. 09/03: Good diuretic response. CRISTHIAN today with no valvar pathology. Objective Vital Signs Date Time Temp Pulse Resp B/P Pulse Ox O2 Delivery O2 Flow Rate FiO2 09/03/16 11:40 93 50 09/03/16 06:00 69 09/03/16 04:00 98.9 22 127/71 09/02/16 20:00 Mechanical Ventilator 08/30/16 15:50 5.00 Intake and Output 09/02/16 09/02/16 09/03/16 08:00 16:00 00:00 Intake Total 706 ml 923 ml 745 ml Output Total 1000 ml 850 ml 2200 ml Balance -294 ml 73 ml -1455 ml Result Diagram: 09/03/16 1036 09/03/16 1036 Imaging Last 24 hours Impressions Chest X-Ray 08/30/16 0600 Signed Impressions: Service Date/Time: Tuesday, August 30, 2016 05:00 - CONCLUSION: Increasing consolidation in the left mid and lower lung and increasing ill-defined opacity right lower lung suggesting either infiltrate or pleural effusion. Polo Saunders MD Last Impressions Lower Extremity Ultrasound 08/28/16 0000 Signed Impressions: Service Date/Time: Sunday, August 28, 2016 22:19 - CONCLUSION: 1. The study is negative for deep venous thrombosis bilateral lower extremity. 2. Distal thigh cystic lesion with arterial pattern of flow within the central lumen suggests possible aneurysm or pseudoaneurysm. 3. Stable large left popliteal cyst. Polo Saunders MD Chest X-Ray 08/28/16 0000 Signed Impressions: Service Date/Time: Sunday, August 28, 2016 13:08 - CONCLUSION: 1. Bibasilar consolidation and small effusions are slightly worse. 2. Nasogastric pulled back in the interim, tip near the GE junction currently. Lex Lopez MD Brain MRI 08/27/16 0000 Signed Impressions: Service Date/Time: August 15:13 - CONCLUSION: No evidence of acute infarct, hemorrhage, mass or edema. No findings to suggest significant anoxic injury. Kit Power MD Renal Ultrasound 08/25/16 0000 Signed Impressions: Service Date/Time: Wednesday, August 24, 2016 21:53 - CONCLUSION: 1. There is no hydronephrosis. Both kidneys demonstrate mild increased echotexture of the parenchyma suggesting medical renal disease. 2. Trace perihepatic free fluid and bilateral pleural effusions. Lex Malik MD Chest CT 08/25/16 0000 Signed Impressions: Service Date/Time: Thursday, August 25, 2016 21:20 - CONCLUSION: 1. Bilateral pneumonia and aspiration would be in the differential. There is dependent consolidation/atelectasis and small effusions of the bases as well. 2. Upper limits of normal to mildly enlarged mediastinal lymph nodes, most likely reactive. 3. Coronary artery calcification. 4. Right rib fractures, including acute fractures laterally of the third, fourth and fifth. There are old, healed fractures anteriorly of the right second and third ribs.. Lex Lopez MD Abdomen/Pelvis CT 08/25/16 0000 Signed Impressions: Service Date/Time: Thursday, August 25, 2016 20:20 - CONCLUSION: 1. Ventral hernia containing small bowel and with associated small bowel obstruction. The defect is broad; I believe the obstruction is probably related to scarring and/or adhesions within the hernia sac. I don't see a mass. 2. Distended stomach despite NG tube present. 3. Severe aortoiliac atherosclerosis. No aneurysm. Lex Lopez MD Abdomen X-Ray 08/24/16 0000 Signed Impressions: Service Date/Time: Wednesday, August 24, 2016 17:19 - CONCLUSION: 1. Small bowel dilatation which reflect ileus or obstruction. Followup examination is recommended if clinically indicated. Gareth Escalante MD Objective Remarks GENERAL: 71-year-old male, critically ill. SKIN: Warm and dry. No rash HEAD: Atraumatic. Normocephalic. ENT: No nasal bleeding or discharge. Mucous membranes pink and moist. NECK: Trachea midline. Left IJ clean dry and intact CARDIOVASCULAR: Tachycardic, RR. S1, S2. No S4. Without murmur. No JVD. RESPIRATORY: VDRF, scattered rhonchi, no wheezing. Breath sounds equal bilaterally. GASTROINTESTINAL: Soft, no guarding. Hypoactive bowel sounds. MUSCULOSKELETAL: Extremities with 1+ upper and lower extremity peripheral edema. Well perfused. NEUROLOGICAL: Sedated, orally intubated on mechanical ventilation. Responds on the ventilator to physical stimulation. Withdraws to pain in all 4 extremities Date of Insertion: Aug 26, 2016 Line: Central Venous Catheter Side: Left Location: Internal, Jugular A/P Assessment and Plan Neuro/Psych: Status post CPR 15 minutes - possible anoxic encephalopathy Depression NOS Follow neuro status. Propofol for sedation, daily sedation vacation Goal of RASS -2. Concern for anoxic encephalopathy following cardiac arrest. EEG 08/25 revealed mild to moderate encephalopathy. No epileptiform activity. MRI brain 08/27 revealed no acute findings. Holding trazodone 50 mg at night for depression Cardiovascular: Cardiac arrest status post CPR Elevated troponin History dyslipidemia History of hypertension PVD Systemic shock likely secondary to sepsis/aspiration/small bowel obstruction Possible pseudoaneurysm Off all vasopressors Currently D5W at 40 cc an hour. Continue diuresis with Lasix Continue Cardizem at 30 mg 4 times a day since blood pressures normalized. Not on any lipid-lowering agents at home. Cardiac arrest status post CPR. s/p aggressive fluid resuscitation. 5 units PRBCs transfused to date minimal troponin elevation following cardiac arrest noted. Echo 2D revealed EF 35-40%. Moderate LVH. Mitral valve calcified. Mild TR. IR consultation for occlusion of pseudoaneurysm Pulmonary: Acute respiratory failure secondary to aspiration pneumonia End-stage COPD. Oxygen dependent FEV1 28%, FVC 1.6. PRVC 16/550/5/50 Duo nebs every 4 hours and as needed, At home on Symbicort 160/4.5 twice a day and duo nebs 4 times a day Switched to Pulmicort twice a day Currently on Solu-Medrol 40 mEq IV every 8 hours. Wean Titrate FiO2 down provided O2 sat greater than 90%. CT chest revealed small pleural effusions bilaterally with likely aspiration VQ scan low probability Diurese with Lasix. Spontaneous breathing trials to decide extubation GI/liver: History of ventral hernia Hypokalemia Resume tube feeds after repeat EGD which is scheduled for 09/01 Protonix 80 mg IV bolus followed by 8 mg/h IV infusion. GI following EGD revealed 25 cm proximal esophagus with possible bleeding. Rule out aorto esophageal fistula. Dr. roberts/general surgery evaluated. Does not believe abdomen surgical the present time. GI. Small bowel obstruction Upper GI bleed plus esophageal rule out aorto esophageal fistula History of Ashley esophagitis History of colonic polyps History of ventral hernia status post repair last by Dr. Roberts CT abdomen/pelvis the sesamoid revealed small bowel obstruction level but hernia. Severe aortoiliac disease. Dr. roberts/general surgery evaluated. Very poor surgical candidate this time. EGD 08/25 revealed esophageal nipple. Clots noted within the gastric contents without active bleeding. Recommended CTA rule out aorto esophageal fistula however cannot perform due to elevated creatinine. Hemoglobin appears stable. Gilles if continues upper GI bleed Resumed NG tube feeds after EGD in a.m. Renal/: Acute kidney injury History of bladder outlet obstruction IV hydration, strict intake output, monitor and replete electro lites, follow BUN creatinine. Currently holding Flomax 0.4 mg daily No hydronephrosis on CT abdomen/pelvis Negative urine eosinophils. ID: UTI Sepsis Fungemia Repeat blood and sputum cultures, UA and urine cultures have indicated. Appreciate ID consult with worsening leukocytosis and septic shock Empiric antibiotic coverage with IV vancomycin and Zosyn to be continued. IV Diflucan started by GI for Ashley esophagitis. Started on IV micafungin 08/26 secondary to yeast in blood. Pertinent cultures 08/28 - blood from central line -no growth 08/27 -arterial line blood - pending 08/26 - sputum -Serratia 08/25 - blood cultures 2 -Ashley 08/25 - urine -no growth 08/22 - blood cultures 2 - no growth 08/21 - urine - no growth 08/20 - blood cultures 2 - 1 out of 4 staph epi Endocrine: Chronic prednisone use secondary to COPD SSI for glycemic control as needed. Currently on Solu-Medrol 40 mg IV every 8 hours Heme: Acute blood loss anemia History of prostate cancer Leukocytosis Status post 4 units PRBCs ands 2 units FFP on 08/24. Given one unit PRBCs 08/26 Follow CBC and coags. FEN: Hypokalemia Hyperphosphatemia Replace electrolytes as clinically indicated AM labs pending. MSK: PT/OT evaluate and treat Access - Left IJ CVL day 8 Prophylaxis - GI -Protonix drip - DVT - SCD/pharmacological prophylaxis contraindicated with GI bleed Overall impression: Critically ill with ventilator dependent respiratory failure. Unable to wean ventilator; made difficult due to depressed LV function and diastolic compliance issues. Continue diuresis. Treat fungemia, assume related to now removed femoral central line. No evidence of endocarditis. Jerzy Snowden MD Sep 03, 2016 15:35
[2016-09-03] MEDS: D5W + KCL 20 MEQ INJ 1,000 ML IV SCH (17:34)
[2016-09-04] VITALS (17 sets, daily range): BP systolic 135–158; BP diastolic 72–86; PULSE 73–98; RESP 17–27; TEMP 98.5–99.6; O2SAT 95–100
[2016-09-04] MEDS ORDERED: LIDOCAINE HCL 1% 50 ML VIAL ONE (01:04)
[2016-09-04] MEDS: PIPERACIL-TAZO 3.375 GM PREMIX 50 ML IV SCH ×4 (02:38→21:28)
[2016-09-04] MEDS: PROPOFOL 1000 MG/100 ML INJ 100 ML IV SCH ×3 (02:38→21:28)
[2016-09-04] MEDS: methylPREDNISolone SOD SUCC 40 MG/1 ML VIAL IV PUSH SCH ×3 (03:39→21:27)
[2016-09-04] MEDS: POTASSIUM CHLOR 40 MEQ PREMIX 100 ML IV PRN (03:39)
[2016-09-04] MEDS: RESP: BUDESONIDE 0.5 MG/2 ML NEB NEB SCH ×2 (07:47→21:26)
[2016-09-04] MEDS: PANTOPRAZOLE SODIUM 40 MG VIAL IV PUSH SCH ×2 (08:36→21:27)
[2016-09-04] MEDS: SODIUM CHLORIDE 0.9% FLUSH 5 ML FLUSH IVF SCH (08:36)
[2016-09-04] MEDS: DILTIAZEM HCL 30 MG TAB PO SCH ×4 (08:36→21:27)
[2016-09-04] MEDS: FUROSEMIDE 40 MG/4 ML VIAL IV PUSH SCH (08:36)
[2016-09-04] MEDS: MULTIVITAMIN TAB PO SCH (08:36)
--- NOTE | 2016-09-04 10:13 | PD.CARD.PN ---
Subjective Subjective Remarks No events overnight Awake on the vent Objective Medications Current Medications Medications (Trade) Dose Ordered Sig/Tee Route Start Time Stop Time Status Last Admin (Robitussin Dm 200-20 Mg/10 ml Liq) 10 ml Q4H PRN PO 08/20/16 14:30 Multivitamins 1 tab 1 tab DAILY PO 08/21/16 09:00 09/04/16 08:36 Piperacillin Sod/ Tazobactam Sod 50 ml @ 100 mls/hr Q6H IV 08/24/16 15:00 09/04/16 08:35 Midazolam HCl 100 ml @ 0 mls/hr TITRATE IV 08/24/16 16:45 08/30/16 05:15 (Levophed-Dextrose Drip) 250 ml @ 0 mls/hr TITRATE IV 08/25/16 10:00 09/03/16 11:50 (Brethine Inj) 1 mg UNSCH PRN SQ 08/25/16 10:00 (NS Flush) DAILY IVF 08/26/16 09:00 09/04/16 08:36 IV Flush UNSCH PRN IVF 08/26/16 08:00 08/27/16 05:42 Micafungin Sodium 100 mg/Sodium Chloride 100 ml @ 100 mls/hr Q24H IV 08/26/16 12:00 09/03/16 11:49 (Precedex Inj) 50 ml @ 0 mls/hr TITRATE IV 08/27/16 07:30 (Cardizem) 30 mg QID PO 08/28/16 13:00 09/04/16 08:36 (SoluMEDROL INJ) 40 mg Q8H IV PUSH 08/29/16 04:00 09/04/16 03:39 (Nitroglycerin 2% Oint) 2 inch Q6HR PRN TOPICAL 08/29/16 16:45 (Apresoline Inj) 10 mg Q1HR PRN IV PUSH 08/29/16 16:45 09/01/16 00:13 Labetalol HCl 10 mg 10 mg Q1HR PRN IV PUSH 08/29/16 16:45 08/30/16 18:06 Potassium Chloride 100 ml @ 50 mls/hr Q2H PRN IV 08/30/16 15:30 09/03/16 17:30 Potassium Chloride 100 ml @ 50 mls/hr Q2H PRN IV 08/30/16 15:30 Potassium Chloride 100 ml @ 25 mls/hr UNSCH PRN IV 08/30/16 15:30 09/04/16 03:39 Potassium Chloride 100 ml @ 50 mls/hr Q2H PRN IV 08/30/16 15:30 (Magnesium Sulfate Inj/NS Inj) 100 ml @ 50 mls/hr UNSCH PRN IV 08/30/16 15:30 Magnesium Oxide 800 mg 800 mg UNSCH PRN PO 08/30/16 15:30 (Magnesium Sulfate Inj/NS Inj) 100 ml @ 50 mls/hr UNSCH PRN IV 08/30/16 15:30 08/31/16 08:03 Potassium Phosphate 2000 mg 2,000 mg Q4H PRN PO 08/30/16 15:30 (Sodium Phosphate Inj/NS 250 ml Inj) 250 ml @ 42 mls/hr UNSCH PRN IV 08/30/16 15:30 Potassium Phosphate 2000 mg 2,000 mg UNSCH PRN PO/TUBE 08/30/16 15:30 Potassium Phosphate 30 mmol/ Sodium Chloride 260 ml @ 42 mls/hr UNSCH PRN IV 08/30/16 15:30 08/30/16 16:24 Potassium Chloride/Dextrose 1,000 ml @ 30 mls/hr Q24H IV 08/30/16 18:00 09/03/16 17:34 (Diprivan 1000 Mg/100ml Inj) 100 ml @ 0 mls/hr TITRATE IV 08/30/16 19:15 09/04/16 08:35 (Lasix Inj) 40 mg DAILY IV PUSH 09/02/16 15:00 09/04/16 08:36 (Protonix Inj) 40 mg Q12H IV PUSH 09/03/16 09:00 09/04/16 08:36 Vital Signs / I&O Vital Signs Date Time Temp Pulse Resp B/P Pulse Ox O2 Delivery O2 Flow Rate FiO2 09/04/16 10:00 79 09/04/16 08:00 79 09/04/16 08:00 40 09/04/16 08:00 99.6 73 17 152/82 100 09/04/16 07:33 40 09/04/16 07:33 99 40 09/04/16 07:00 99 Mechanical Ventilator 40 09/04/16 06:00 78 09/04/16 04:31 98 40 09/04/16 04:00 98.6 84 23 138/72 100 09/04/16 04:00 40 09/04/16 04:00 84 09/04/16 02:00 98 09/04/16 00:42 95 40 09/04/16 00:00 40 09/04/16 00:00 84 09/04/16 00:00 98.5 84 18 140/79 99 09/03/16 22:00 102 09/03/16 20:00 98.0 92 19 104/65 93 09/03/16 20:00 92 09/03/16 20:00 40 09/03/16 19:47 98 40 09/03/16 19:00 94 Mechanical Ventilator 40 09/03/16 18:00 92 09/03/16 16:43 99 40 09/03/16 16:00 102 09/03/16 16:00 99.0 102 21 138/78 97 09/03/16 14:00 98 09/03/16 12:00 102 09/03/16 12:00 98.7 102 17 126/78 94 09/03/16 11:40 93 50 I/O 09/03/16 09/03/16 09/03/16 09/04/16 09/04/16 09/04/16 06:59 14:59 22:59 06:59 14:59 22:59 Intake Total 53 ml 501 ml 958 ml 692 ml Output Total 950 ml 1600 ml 1100 ml 650 ml Balance -897 ml -1099 ml -142 ml 42 ml IV Total 53 ml 441 ml 595 ml 432 ml Tube Feeding 333 ml 260 ml Other 60 ml 30 ml Output Urine Total 950 ml 1600 ml 1100 ml 650 ml Tube Feeding Residual Discard 0 ml # Bowel Movements 1 1 0 Physical Exam GENERAL: NAD, awake on the vent SKIN: Warm and dry. HEAD: Atraumatic. Normocephalic. EYES: Pupils equal and round. No scleral icterus. No injection or drainage. ENT: No nasal bleeding or discharge. Tongue with multiple lesions, ETT in place NECK: Trachea midline. No JVD. CARDIOVASCULAR: Regular rate and rhythm. RESPIRATORY: No accessory muscle use. Decreased breath sounds bilaterally GASTROINTESTINAL: Abdomen soft, non-tender, nondistended. Hepatic and splenic margins not palpable. MUSCULOSKELETAL: Extremities without clubbing, cyanosis, or edema. No obvious deformities. NEUROLOGICAL: No focal deficits noted Laboratory Laboratory Tests Test 09/03/16 09/04/16 09/04/16 10:36 03:00 08:36 White Blood Count 18.4 TH/MM3 Red Blood Count 3.08 MIL/MM3 Hemoglobin 9.2 GM/DL Hematocrit 28.2 % Mean Corpuscular Volume 91.6 FL Mean Corpuscular Hemoglobin 29.7 PG Mean Corpuscular Hemoglobin 32.4 % Concent Red Cell Distribution Width 17.1 % Platelet Count 127 TH/MM3 Mean Platelet Volume 9.3 FL Neutrophils (%) (Auto) 92.0 % Lymphocytes (%) (Auto) 4.0 % Monocytes (%) (Auto) 3.8 % Eosinophils (%) (Auto) 0.0 % Basophils (%) (Auto) 0.2 % Neutrophils # (Auto) 16.9 TH/MM3 Lymphocytes # (Auto) 0.7 TH/MM3 Monocytes # (Auto) 0.7 TH/MM3 Eosinophils # (Auto) 0.0 TH/MM3 Basophils # (Auto) 0.0 TH/MM3 CBC Comment AUTO DIFF Differential Total Cells 100 Counted Neutrophils % (Manual) 85 % Band Neutrophils % 4 % Lymphocytes % 5 % Monocytes % 3 % Neutrophils # (Manual) 16.9 TH/MM3 Metamyelocytes 2 % Myelocytes 1 % Nucleated Red Blood Cells 1 /100 WBC Differential Comment FINAL DIFF MANUAL Toxic Granulation 2+ Platelet Estimate LOW Platelet Morphology Comment NORMAL Sodium Level 154 MEQ/L Potassium Level 2.7 MEQ/L 3.4 MEQ/L 3.5 MEQ/L Chloride Level 110 MEQ/L Carbon Dioxide Level 36.9 MEQ/L Anion Gap 7 MEQ/L Blood Urea Nitrogen 37 MG/DL Creatinine 1.24 MG/DL Estimat Glomerular Filtration 58 ML/MIN Rate Random Glucose 125 MG/DL Calcium Level 8.0 MG/DL Assessment and Plan Problem List: (1) HCAP (healthcare-associated pneumonia) (2) COPD exacerbation (3) Sepsis (4) Acute kidney injury (5) NSTEMI (non-ST elevated myocardial infarction) (6) PEA (Pulseless electrical activity) (7) Ventricular fibrillation (8) Fungemia Assessment and Plan 1) Fungemia treatment per ID 2) CRISTHIAN yesterday with no endocarditis/abscess (report not uploaded yet) 3) NSTEMI due to PEA arrest, then asystole then V-fib 4) Bilateral pleural effusions, continue diuresis 5) Will see PRN, call with questions Problem Qualifiers (1) Sepsis: Qualified Code: A41.9 - Sepsis, due to unspecified organism Grady Romero DO Sep 04, 2016 10:12
--- NOTE | 2016-09-04 10:38 | ETE ---
Study Study Date:09/03/2016 STUDY CONCLUSIONS SUMMARY - Left ventricle: The cavity size was mildly dilated. Systolic function was moderately reduced. The estimated ejection fraction was in the range of 35% to 40%. - Mitral valve: No evidence of vegetation. - Atrial septum: No defect or patent foramen ovale was identified. - Tricuspid valve: No evidence of vegetation. - Pericardium, extracardiac: There was a right pleural effusion. There was a left pleural effusion. Impressions: No evidence of endocarditis or abscess. If LV function is below 40, please consider prescribing an ACEI or ARB or document rationale for non-use. PROCEDURE DATA Consent: The risks, benefits, and alternatives to the procedure were explained to the family of the patient and informed consent was obtained. Procedure: Initial setup. The patient was in the fasting state. Surface ECG leads and pulse oximetric signals were monitored. Sedation. Conscious sedation was administered by cardiology staff. Transesophageal echocardiography. A transesophageal probe was inserted by the attending steam fitter. Image quality was good. Study completion: All IVs inserted during the procedure were removed. The patient tolerated the procedure well. There were no complications. Transesophageal echocardiography. 2D, complete spectral Doppler, and color Doppler. CARDIAC ANATOMY LEFT VENTRICLE: The cavity size was mildly dilated. Systolic function was moderately reduced. The estimated ejection fraction was in the range of 35% to 40%. AORTIC VALVE: Mildly calcified annulus. Trileaflet. Doppler: There was no stenosis. Trace to mild regurgitation. AORTA: The aorta was mildly calcified. MITRAL VALVE: Moderately calcified annulus. Normal thickness leaflets, . No evidence of vegetation. Doppler: There was no evidence for stenosis. Trace regurgitation. LEFT ATRIUM: The atrium was mildly dilated. ATRIAL SEPTUM: No defect or patent foramen ovale was identified. There was no aneurysm. RIGHT VENTRICLE: The cavity size was normal. Systolic function was mildly reduced. PULMONIC VALVE: Not well visualized. Doppler: There was no evidence for stenosis. Trace regurgitation. TRICUSPID VALVE: Normal thickness leaflets. No evidence of vegetation. Doppler: There was no evidence for stenosis. Trace regurgitation. Pleura: There was a right pleural effusion. There was a left pleural effusion. Prepared and signed by Grady Romero [id number]
--- NOTE | 2016-09-04 12:04 | HHI.IDPN ---
Subjective Subjective Remarks is a 71 y/o CM with COPD and oxygen dependent, Ashley esophagitis, prior h/o pneumonia. According to the since the patient was discharged he continued to have nausea and vomiting. He has not had any bowel movement, and she thinks in the last 3 weeks. Patient started having more weakness, and was getting more short of breath, so the patient presented back to the hospital and was admitted August 20. He was admitted as a COPD exacerbation and pneumonia. He was put on empiric antibiotics. Patient had in hospital cardiorespiratory arrest. He was successfully resuscitated, and intubated. Patient had an A- line in arm, CL in groin which was changed on 08/27/16. 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 Patient continues to have elevated WBC, and is being treated for sepsis secondary to aspiration PNA, Fungemia likely line related (groin line likely now DCed). Notes reviewed Temps ok Off levophed CRISTHIAN negative Last (+) BC 08/27 with C glabrata First (+) BC with C albicans and C glabrata Last (+) BC 08/27 Has pseudoaneurysm R femoral artery Sputum with Serratia CXR stable ne opacities WBC up to 18K again Antibiotics Zosyn IV (aspiration PNA) IV Micafungin (for fungal line infection) Lines L I J central line Past Medical History Hypertension COPD O2 dependent prostate cancer Bladder outlet obstruction Hyperlipidemia Past Surgical History Ventral hernia Appendectomy Perforated gastric ulcer surgery Cataract Upper and lower endoscopy Allergies: Coded Allergies: *MDRO Multi-Drug Resistant Organism (Verified Adverse Reaction, Unknown, ) MRSA (abdominal wound) 2015 per 04/10/2015 H&P MRSA PCR Screen #1 NEGATIVE - 08/21/16 Objective . Vital Signs Date Time Temp Pulse Resp B/P Pulse Ox O2 Delivery O2 Flow Rate FiO2 09/04/16 10:13 97 40 09/04/16 10:00 79 09/04/16 08:00 79 09/04/16 08:00 40 09/04/16 08:00 99.6 73 17 152/82 100 09/04/16 07:33 40 09/04/16 07:33 99 40 09/04/16 07:00 99 Mechanical Ventilator 40 09/04/16 06:00 78 09/04/16 04:31 98 40 09/04/16 04:00 98.6 84 23 138/72 100 09/04/16 04:00 40 09/04/16 04:00 84 09/04/16 02:00 98 09/04/16 00:42 95 40 09/04/16 00:00 40 09/04/16 00:00 84 09/04/16 00:00 98.5 84 18 140/79 99 09/03/16 22:00 102 09/03/16 20:00 98.0 92 19 104/65 93 09/03/16 20:00 92 09/03/16 20:00 40 09/03/16 19:47 98 40 09/03/16 19:00 94 Mechanical Ventilator 40 09/03/16 18:00 92 09/03/16 16:43 99 40 09/03/16 16:00 102 09/03/16 16:00 99.0 102 21 138/78 97 09/03/16 14:00 98 09/03/16 09/03/16 09/04/16 15:00 23:00 07:00 Intake Total 501 ml 958 ml 692 ml Output Total 1600 ml 1100 ml 650 ml Balance -1099 ml -142 ml 42 ml IV Total 441 ml 595 ml 432 ml Tube Feeding 333 ml 260 ml Other 60 ml 30 ml Output Urine Total 1600 ml 1100 ml 650 ml Tube Feeding Residual Discard 0 ml # Bowel Movements 1 0 . Laboratory Tests Test 09/03/16 10:36 White Blood Count 18.4 TH/MM3 Red Blood Count 3.08 MIL/MM3 Hemoglobin 9.2 GM/DL Hematocrit 28.2 % Mean Corpuscular Volume 91.6 FL Mean Corpuscular Hemoglobin 29.7 PG Mean Corpuscular Hemoglobin 32.4 % Concent Red Cell Distribution Width 17.1 % Platelet Count 127 TH/MM3 Mean Platelet Volume 9.3 FL Neutrophils (%) (Auto) 92.0 % Lymphocytes (%) (Auto) 4.0 % Monocytes (%) (Auto) 3.8 % Eosinophils (%) (Auto) 0.0 % Basophils (%) (Auto) 0.2 % Neutrophils # (Auto) 16.9 TH/MM3 Lymphocytes # (Auto) 0.7 TH/MM3 Monocytes # (Auto) 0.7 TH/MM3 Eosinophils # (Auto) 0.0 TH/MM3 Basophils # (Auto) 0.0 TH/MM3 CBC Comment AUTO DIFF Differential Total Cells 100 Counted Neutrophils % (Manual) 85 % Band Neutrophils % 4 % Lymphocytes % 5 % Monocytes % 3 % Neutrophils # (Manual) 16.9 TH/MM3 Metamyelocytes 2 % Myelocytes 1 % Nucleated Red Blood Cells 1 /100 WBC Differential Comment FINAL DIFF MANUAL Toxic Granulation 2+ Platelet Estimate LOW Platelet Morphology Comment NORMAL Laboratory Tests Test 09/03/16 09/04/16 09/04/16 10:36 03:00 08:36 Sodium Level 154 MEQ/L Potassium Level 2.7 MEQ/L 3.4 MEQ/L 3.5 MEQ/L Chloride Level 110 MEQ/L Carbon Dioxide Level 36.9 MEQ/L Anion Gap 7 MEQ/L Blood Urea Nitrogen 37 MG/DL Creatinine 1.24 MG/DL Estimat Glomerular Filtration 58 ML/MIN Rate Random Glucose 125 MG/DL Calcium Level 8.0 MG/DL Microbiology Date/Time Procedure Status Source Growth 09/02/16 14:05 Aerobic Blood Culture - Preliminary Resulted Blood Peripheral NO GROWTH IN 2 DAYS 09/02/16 14:05 Anaerobic Blood Culture - Preliminary Resulted Blood Peripheral NO GROWTH IN 2 DAYS 09/03/16 03:48 Aerobic Blood Culture - Preliminary Resulted Blood Peripheral NO GROWTH IN 1 DAY 09/03/16 03:48 Anaerobic Blood Culture - Preliminary Resulted Blood Peripheral NO GROWTH IN 1 DAY Imaging Chest X-Ray 09/01/16 0600 Signed Impressions: Service Date/Time: Thursday, September 01, 2016 03:19 - CONCLUSION: No significant interval change in bilateral pulmonary parenchymal opacity and small bilateral pleural effusions. 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 There is concentric mural thrombus. This aneurysm is not amenable to thrombin injection. Polo Moore Jr., MD Chest X-Ray 08/27/16 0600 Signed Impressions: Service Date/Time: August 02:27 - CONCLUSION: 1. Patchy bilateral airspace disease with improving aeration/decreasing effusions in the bases bilaterally. 2. Stable position of life support tubes. Con Valdes MD Chest X-Ray 08/26/16 0754 Signed Impressions: Service Date/Time: Friday, August 26, 2016 08:14 - CONCLUSION: Left IJ central line distal tip in the SVC. No pneumothorax is visualized. There is a stable appearance the lungs with bilateral airspace consolidation. Lex Malik MD Chest X-Ray 08/26/16 0600 Signed Impressions: Service Date/Time: Friday, August 26, 2016 04:01 - CONCLUSION: 1. Worsening bibasilar effusions/atelectasis with diffuse interstitial edema, all characteristic of CHF. 2. Endotracheal tube remains appropriately positioned above the michele Con Valdes MD Chest X-Ray 08/26/16 0754 Signed Impressions: Service Date/Time: Friday, August 26, 2016 08:14 - CONCLUSION: Left IJ central line distal tip in the SVC. No pneumothorax is visualized. There is a stable appearance the lungs with bilateral airspace consolidation. Lex Malik MD Renal Ultrasound 08/25/16 0000 Signed Impressions: Service Date/Time: Wednesday, August 24, 2016 21:53 - CONCLUSION: 1. There is no hydronephrosis. Both kidneys demonstrate mild increased echotexture of the parenchyma suggesting medical renal disease. 2. Trace perihepatic free fluid and bilateral pleural effusions. Lex Malik MD Chest CT 08/25/16 0000 Signed Impressions: Service Date/Time: Thursday, August 25, 2016 21:20 - CONCLUSION: 1. Bilateral pneumonia and aspiration would be in the differential. There is dependent consolidation/atelectasis and small effusions of the bases as well. 2. Upper limits of normal to mildly enlarged mediastinal lymph nodes, most likely reactive. 3. Coronary artery calcification. 4. Right rib fractures, including acute fractures laterally of the third, fourth and fifth. There are old, healed fractures anteriorly of the right second and third ribs.. Lex Lopez MD Abdomen/Pelvis CT 08/25/16 0000 Signed Impressions: Service Date/Time: Thursday, August 25, 2016 20:20 - CONCLUSION: 1. Ventral hernia containing small bowel and with associated small bowel obstruction. The defect is broad; I believe the obstruction is probably related to scarring and/or adhesions within the hernia sac. I don't see a mass. 2. Distended stomach despite NG tube present. 3. Severe aortoiliac atherosclerosis. No aneurysm. Lex Lopez MD Abdomen X-Ray 08/24/16 0000 Signed Impressions: Service Date/Time: Wednesday, August 24, 2016 17:19 - CONCLUSION: 1. Small bowel dilatation which reflect ileus or obstruction. Followup examination is recommended if clinically indicated. Gareth Escalante MD Physical Exam GENERAL: awake, responding, on the vent, NAD SKIN: Warm and dry. No generalized rash HEENT: Pale conjunctivae, no petechia or hemorrhage. No scleral icterus. No injection or drainage. Has endotracheal tube in the mouth. NGT in place NECK: Trachea midline. No JVD or lymphadenopathy. Supple. LIJ TLC looks ok CARDIOVASCULAR: Regular rate and rhythm without murmurs, gallops, or rubs. RESPIRATORY: Decreased breath sounds throughout both lung garcia. GASTROINTESTINAL: Abdomen soft, not tender, not distended. Has an incisional hernia. Has midline scar. Bowel sounds are hypoactive, no guarding. No redness noted in R groin MUSCULOSKELETAL: Extremities without clubbing, cyanosis. Edema better NEUROLOGICAL: Awake, focusing occ responds PSYCH: Responding LINE: LIJ TLC no evidence of infection. Assessment & Plan Remarks IMPRESSION Sepsis present on admission and then sepsis again. Central line associated blood stream infection (CLABSI) related fungemia ( likely groin line) now discontinued. Arterial line discontinued as well. Possible pseudoaneurysm R fem artery with thrombus, concern with infection in that site, had line there previously - CRISTHIAN negative prelim Aspiration Pneumonia: Serratia marcescens. Possible pulm edema. Diarrhea ? Cdiff vs antibiotic associated. Status post cardiorespiratory arrest, likely aspirated Findings SBO within the hernia on CT A/P, clinically better Acute respiratory failure on vent. GI bleed Leukocytosis, worsening, most likely multifactorial, fungemia, due to acute GI bleed as well as aspiration and arrest COPD, oxygen dependent Previous GI bleed with workup showing gastritis, Ashley esophagitis, and polyps Large incisional ventral hernia Bladder outlet obstruction, currently has a Hammond Renal insufficiency RECOMMENDATION Continue Micafungin IV (C.glabrata fungemia) Continue Zosyn IV (for aspiration PNA) Follow CBC - if WBC continues to rise, will order repeat C/S Monitor progress Has possible pseudoaneurysm at site of femoral line, and will likely treat for 4 weeks with antifungal. Nuha Fernandez MD Sep 04, 2016 12:04
[2016-09-04] MEDS: MICAFUNGIN INJ 100 MG in SODIUM CHLORIDE 0.9% INJ 100 ML IV SCH (12:18)
--- NOTE | 2016-09-04 15:59 | HHI.CCPN ---
Subjective Remarks/Hospital Course 08/24: 71 Year-old male with a medical history significant for COPD on home oxygen who was recently admitted with suspected sepsis/H And was initiated on IV antibiotics and steroids. He had recently been evaluated by GI and underwent EGD on 08/10/2016 and was found to have moderate esophagitis, mild gastritis with pathology subsequently showing Ashley esophagitis as well as colonoscopy on 08/11/2016 with polypectomy and ablation of polyp in ascending colon with hot snare. Patient has been dealing with constipation since his admission. Today when he was trying to have a bowel movement he suddenly became less responsive and then had a large emesis which resulted in aspiration and hemodynamic collapse. Patient initially had large volume emesis with dark maroon blood. CODE BLUE cardiac arrest code was activated. On my arrival patient was in bed CPR had been initiated. Significant gastric contents was still being suctioned out of his oral cavity. ACLS protocol was continued. Patient was intubated following vigorous suctioning of gastric contents from oral cavity as well as with placement of NG tube which is hooked up to suction and about 1.5 L of gastric contents being suctioned out which appeared to be dark maroon in color. Patient initially had a pulse when CODE BLUE was called and subsequently went in PEA arrest followed by asystole during ACLS and then V. fib for which he was defibrillated with 200 J 1, CPR/ACLS protocol was continued and patient eventually had return of spontaneous circulation after about 15 minutes of CPR/ACLS. Patient was transferred to [facility] and placed on mechanical ventilation. I emergently placed left femoral central line for central vascular access and he was started on Levophed for pressor support. 2 units of O- 1 crossmatch blood were ordered and transfused stat. He also received 1 L of normal saline bolus following return of spontaneous circulation. Stat labs were ordered. His hemoglobin on ABG done post resuscitation was 5.6. I did order Protonix 80 mg IV stat followed by 8 mg per hour IV infusion. Patient remained encephalopathic though was minimally responsive following transfer to the ICU. GI consult was requested and I spoke with Dr. Zamarripa at bedside on his arrival. History was obtained by reviewing records, discussion with family/ GI as well as nursing staff. According to patient's daughter he has not been doing well for the last few months in terms of his breathing and has been using his home oxygen more often. He gets extremely short of breath even with the least exertion. 08/25: Remains encephalopathic/ sedated, [facility]. Transiently off levophed last night however back to 11 mcg/min currently. Hgb up to 9.4 following 4 units PRBCs transfused last night. 08/26: Tmax 99. Some unresponsive on the ventilator. CT abdomen/pelvis less than revealed small bowel obstruction at site of ventral hernia. No further bleeding noted. Gastric output approximately 700 cc. No bowel movement. 08/27: Tmax 99.7. Currently afebrile. Positive BM overnight approximately 1 L according to RN. No blood noted. 100 cc from gastric tube overnight. Hemoglobin corrected a properly. Likely dilutional. Noted fungemia currently issue. Opens eyes to voice. 08/28: Tmax 99.1. No BMs overnight. Minimal gastric tube output. Hemoglobin stable 9.5. Opens eyes to voice. Not following commands. Appears with singultus this morning. Subjective 08/29: 20 beat run of wide complex tachycardia overnight. Noted potassium 3.2. This is been replaced. We'll recheck this afternoon. Circuit exchange yesterday. Patient tolerating pressure control ventilation much better than PRVC/AC ventilation is low probably VQ scan. Less FiO2 requirements. No BM past 24 hour. 08/30: Unable to wean ventilator. 08/31: Patient was extubated on 08/30 however became tachypneic with use of accessory muscles of respiration and required reintubation around 6:30 PM last night and was placed back on mechanical ventilation. Currently sedated, orally intubated on mechanical ventilation. Post intubation chest x-ray suggested fluid overload for which she was given Lasix 40 mg IV with good response having made about 2.5 L urine the last 7 hours. 09/01: Remains sedated, orally intubated on mechanical ventilation. Diuresing well with Lasix. Awaiting EGD in a.m. 09/02: Little progress. CXR clearing nicely. Continue diuresis, tolerate hypernatremia. 09/03: Good diuretic response. CRISTHIAN today with no valvar pathology. 09/04: Too weak to tolerate extubation. Will require trach. Objective Vital Signs Date Time Temp Pulse Resp B/P Pulse Ox O2 Delivery O2 Flow Rate FiO2 09/04/16 14:00 80 09/04/16 12:00 40 09/04/16 12:00 99.6 25 140/86 97 09/04/16 07:00 Mechanical Ventilator Intake and Output 09/03/16 09/03/16 09/04/16 08:00 16:00 00:00 Intake Total 53 ml 501 ml 958 ml Output Total 950 ml 1600.0 ml 1100 ml Balance -897 ml -1099.0 ml -142 ml Result Diagram: 09/03/16 1036 09/04/16 0836 Imaging Last 24 hours Impressions Chest X-Ray 08/30/16 0600 Signed Impressions: Service Date/Time: Tuesday, August 30, 2016 05:00 - CONCLUSION: Increasing consolidation in the left mid and lower lung and increasing ill-defined opacity right lower lung suggesting either infiltrate or pleural effusion. Polo Saunders MD Last Impressions Lower Extremity Ultrasound 08/28/16 0000 Signed Impressions: Service Date/Time: Sunday, August 28, 2016 22:19 - CONCLUSION: 1. The study is negative for deep venous thrombosis bilateral lower extremity. 2. Distal thigh cystic lesion with arterial pattern of flow within the central lumen suggests possible aneurysm or pseudoaneurysm. 3. Stable large left popliteal cyst. Polo Saunders MD Chest X-Ray 08/28/16 0000 Signed Impressions: Service Date/Time: Sunday, August 28, 2016 13:08 - CONCLUSION: 1. Bibasilar consolidation and small effusions are slightly worse. 2. Nasogastric pulled back in the interim, tip near the GE junction currently. Lex Lopez MD Brain MRI 08/27/16 0000 Signed Impressions: Service Date/Time: August 15:13 - CONCLUSION: No evidence of acute infarct, hemorrhage, mass or edema. No findings to suggest significant anoxic injury. Kit Power MD Renal Ultrasound 08/25/16 0000 Signed Impressions: Service Date/Time: Wednesday, August 24, 2016 21:53 - CONCLUSION: 1. There is no hydronephrosis. Both kidneys demonstrate mild increased echotexture of the parenchyma suggesting medical renal disease. 2. Trace perihepatic free fluid and bilateral pleural effusions. Lex Malik MD Chest CT 08/25/16 0000 Signed Impressions: Service Date/Time: Thursday, August 25, 2016 21:20 - CONCLUSION: 1. Bilateral pneumonia and aspiration would be in the differential. There is dependent consolidation/atelectasis and small effusions of the bases as well. 2. Upper limits of normal to mildly enlarged mediastinal lymph nodes, most likely reactive. 3. Coronary artery calcification. 4. Right rib fractures, including acute fractures laterally of the third, fourth and fifth. There are old, healed fractures anteriorly of the right second and third ribs.. Lex Lopez MD Abdomen/Pelvis CT 08/25/16 0000 Signed Impressions: Service Date/Time: Thursday, August 25, 2016 20:20 - CONCLUSION: 1. Ventral hernia containing small bowel and with associated small bowel obstruction. The defect is broad; I believe the obstruction is probably related to scarring and/or adhesions within the hernia sac. I don't see a mass. 2. Distended stomach despite NG tube present. 3. Severe aortoiliac atherosclerosis. No aneurysm. Lex Lopez MD Abdomen X-Ray 08/24/16 0000 Signed Impressions: Service Date/Time: Wednesday, August 24, 2016 17:19 - CONCLUSION: 1. Small bowel dilatation which reflect ileus or obstruction. Followup examination is recommended if clinically indicated. Gareth Escalante MD Objective Remarks GENERAL: 71-year-old male, critically ill, debilitated SKIN: Warm and dry. No rash HEAD: Atraumatic. Normocephalic. ENT: No nasal bleeding or discharge. NECK: Trachea midline. Left IJ clean dry and intact CARDIOVASCULAR: Tachycardic, RR. S1, S2. No S4. Without murmur. No JVD. RESPIRATORY: VDRF, scattered rhonchi, no wheezing. Breath sounds equal bilaterally. GASTROINTESTINAL: Soft, no guarding. Hypoactive bowel sounds. MUSCULOSKELETAL: Extremities with 1+ upper and lower extremity peripheral edema. Well perfused. NEUROLOGICAL: Orally intubated on mechanical ventilation. Responds on the ventilator to physical stimulation. Withdraws to pain in all 4 extremities Date of Insertion: Aug 26, 2016 Line: Central Venous Catheter Side: Left Location: Internal, Jugular A/P Assessment and Plan Neuro/Psych: Status post CPR 15 minutes - possible anoxic encephalopathy Depression NOS Follow neuro status. Propofol for sedation, daily sedation vacation Goal of RASS -2. Concern for anoxic encephalopathy following cardiac arrest. EEG 08/25 revealed mild to moderate encephalopathy. No epileptiform activity. MRI brain 08/27 revealed no acute findings. Holding trazodone 50 mg at night for depression Cardiovascular: Cardiac arrest status post CPR Elevated troponin History dyslipidemia History of hypertension PVD Systemic shock likely secondary to sepsis/aspiration/small bowel obstruction Possible pseudoaneurysm Off all vasopressors Currently D5W at 40 cc an hour. Continue diuresis with Lasix Continue Cardizem at 30 mg 4 times a day since blood pressures normalized. Not on any lipid-lowering agents at home. Cardiac arrest status post CPR. s/p aggressive fluid resuscitation. 5 units PRBCs transfused to date minimal troponin elevation following cardiac arrest noted. Echo 2D revealed EF 35-40%. Moderate LVH. Mitral valve calcified. Mild TR. IR consultation for occlusion of pseudoaneurysm Pulmonary: Acute respiratory failure secondary to aspiration pneumonia End-stage COPD. Oxygen dependent FEV1 28%, FVC 1.6. PRVC 16/550/5/50 Duo nebs every 4 hours and as needed, At home on Symbicort 160/4.5 twice a day and duo nebs 4 times a day Switched to Pulmicort twice a day Currently on Solu-Medrol 40 mEq IV every 8 hours. Wean Titrate FiO2 down provided O2 sat greater than 90%. CT chest revealed small pleural effusions bilaterally with likely aspiration VQ scan low probability Diurese with Lasix. Spontaneous breathing trials to decide extubation GI/liver: History of ventral hernia Hypokalemia Resume tube feeds after repeat EGD which is scheduled for 09/01 Protonix 80 mg IV bolus followed by 8 mg/h IV infusion. GI following EGD revealed 25 cm proximal esophagus with possible bleeding. Rule out aorto esophageal fistula. Dr. roberts/general surgery evaluated. Does not believe abdomen surgical the present time. GI. Small bowel obstruction Upper GI bleed plus esophageal rule out aorto esophageal fistula History of Ashley esophagitis History of colonic polyps History of ventral hernia status post repair last by Dr. Roberts CT abdomen/pelvis the sesamoid revealed small bowel obstruction level but hernia. Severe aortoiliac disease. Dr. roberts/general surgery evaluated. Very poor surgical candidate this time. EGD 08/25 revealed esophageal nipple. Clots noted within the gastric contents without active bleeding. Recommended CTA rule out aorto esophageal fistula however cannot perform due to elevated creatinine. Hemoglobin appears stable. Gilles if continues upper GI bleed Resumed NG tube feeds after EGD in a.m. Renal/: Acute kidney injury History of bladder outlet obstruction IV hydration, strict intake output, monitor and replete electro lites, follow BUN creatinine. Currently holding Flomax 0.4 mg daily No hydronephrosis on CT abdomen/pelvis Negative urine eosinophils. ID: [id number] Sepsis Fungemia Repeat blood and sputum cultures, UA and urine cultures have indicated. Appreciate ID consult with worsening leukocytosis and septic shock Empiric antibiotic coverage with IV vancomycin and Zosyn to be continued. IV Diflucan started by GI for Ashley esophagitis. Started on IV micafungin 08/26 secondary to yeast in blood. Pertinent cultures 08/28 - blood from central line -no growth 08/27 -arterial line blood - pending 08/26 - sputum -Serratia 08/25 - blood cultures 2 -Ashley 08/25 - urine -no growth 08/22 - blood cultures 2 - no growth 08/21 - urine - no growth 08/20 - blood cultures 2 - 1 out of 4 staph epi Endocrine: Chronic prednisone use secondary to COPD SSI for glycemic control as needed. Currently on Solu-Medrol 40 mg IV every 8 hours Heme: Acute blood loss anemia History of prostate cancer Leukocytosis Status post 4 units PRBCs ands 2 units FFP on 08/24. Given one unit PRBCs 08/26 Follow CBC and coags. FEN: Hypokalemia Hyperphosphatemia Replace electrolytes as clinically indicated AM labs pending. MSK: PT/OT evaluate and treat Access - Left IJ CVL day 8 Prophylaxis - GI -Protonix drip - DVT - SCD/pharmacological prophylaxis contraindicated with GI bleed Overall impression: Critically ill with ventilator dependent respiratory failure. Unable to wean ventilator; made difficult due to depressed LV function and diastolic compliance issues. Continue diuresis. Treat fungemia, assume related to now removed femoral central line. No evidence of endocarditis. Will need tracheostomy - unable to wean from ventilator. Jerzy Snowden MD Sep 04, 2016 15:59
--- NOTE | 2016-09-04 16:00 | HHI.PR ---
Subjective Subjective Notes Intubated/Sedated Objective Vitals/I&O Vital Signs Date Time Temp Pulse Resp B/P Pulse Ox O2 Delivery O2 Flow Rate FiO2 09/04/16 14:00 80 09/04/16 12:00 40 09/04/16 12:00 99.6 25 140/86 97 09/04/16 07:00 Mechanical Ventilator Labs Laboratory Tests Test 09/04/16 09/04/16 03:00 08:36 Potassium Level 3.4 3.5 Date/Time Procedure Status Source Growth 09/03/16 03:48 Aerobic Blood Culture - Preliminary Resulted Blood Peripheral NO GROWTH IN 1 DAY 09/03/16 03:48 Anaerobic Blood Culture - Preliminary Resulted Blood Peripheral NO GROWTH IN 1 DAY Cardiovascular: Regular Lungs: Clear Abdomen: Non-distended, Non-tender Extremities: No edema A/P Assessment and Plan 71 year old male s/p cardiac arrest with SBO versus ileus; patient known to Dr. Roberts for large ventral hernia -+BM -Tolerating TF -Plan to place trach at bedside on Wednesday if not able to successfully extubate -Discussed with Dr. Alexander I certify and attest that I personally examined this patient with Ms. Meza who documented our visit in the EMR and entered orders under my direct supervision. I reviewed the care plan with the nursing staff and family if present. Olivia Rehman MD, FACS Sep 04, 2016 16:00 Jon Roberts MD Sep 09, 2016 14:33
[2016-09-04] MEDS: D5W + KCL 20 MEQ INJ 1,000 ML IV SCH (18:00)
[2016-09-04] MEDS: RESP: ALBUTEROL 2.5 MG/IPRATROPIUM 0.5 MG NEB (PRN) INH (21:26)
[2016-09-04 22:34] LABS: BLOOD, URINE SMALL (NEG); GLUCOSE,URINE 300 mg/dL (NEG); GRANULAR CAST, URINE 11 /lpf; KETONE, URINE NEG (NEG); MUCUS URINE FEW /lpf (OCC); NITRITE,URINE NEG (NEG); URINE COLOR YELLOW (YELLW/STRAW)
[2016-09-04 22:37] LABS: COMMENT (UR) CATH-CULT NOT IND; CULTURE IF INDICATED CATH CULTURE NOT IND
[2016-09-05] VITALS (18 sets, daily range): BP systolic 135–156; BP diastolic 70–97; PULSE 66–121; RESP 18–25; TEMP 98–99.6; O2SAT 93–100
--- NOTE | 2016-09-05 00:45 | HHI.CCPN ---
Subjective Remarks/Hospital Course 08/24: 71 Year-old male with a medical history significant for COPD on home oxygen who was recently admitted with suspected sepsis/H And was initiated on IV antibiotics and steroids. He had recently been evaluated by GI and underwent EGD on 08/10/2016 and was found to have moderate esophagitis, mild gastritis with pathology subsequently showing Mary Kay esophagitis as well as colonoscopy on 08/11/2016 with polypectomy and ablation of polyp in ascending colon with hot snare. Patient has been dealing with constipation since his admission. Today when he was trying to have a bowel movement he suddenly became less responsive and then had a large emesis which resulted in aspiration and hemodynamic collapse. Patient initially had large volume emesis with dark maroon blood. CODE BLUE cardiac arrest code was activated. On my arrival patient was in bed CPR had been initiated. Significant gastric contents was still being suctioned out of his oral cavity. ACLS protocol was continued. Patient was intubated following vigorous suctioning of gastric contents from oral cavity as well as with placement of NG tube which is hooked up to suction and about 1.5 L of gastric contents being suctioned out which appeared to be dark maroon in color. Patient initially had a pulse when CODE BLUE was called and subsequently went in PEA arrest followed by asystole during ACLS and then V. fib for which he was defibrillated with 200 J 1, CPR/ACLS protocol was continued and patient eventually had return of spontaneous circulation after about 15 minutes of CPR/ACLS. Patient was transferred to [facility] and placed on mechanical ventilation. I emergently placed left femoral central line for central vascular access and he was started on Levophed for pressor support. 2 units of O- 1 crossmatch blood were ordered and transfused stat. He also received 1 L of normal saline bolus following return of spontaneous circulation. Stat labs were ordered. His hemoglobin on ABG done post resuscitation was 5.6. I did order Protonix 80 mg IV stat followed by 8 mg per hour IV infusion. Patient remained encephalopathic though was minimally responsive following transfer to the ICU. GI consult was requested and I spoke with Dr. Zamarripa at bedside on his arrival. History was obtained by reviewing records, discussion with family/ GI as well as nursing staff. According to patient's daughter he has not been doing well for the last few months in terms of his breathing and has been using his home oxygen more often. He gets extremely short of breath even with the least exertion. 08/25: Remains encephalopathic/ sedated, [facility]. Transiently off levophed last night however back to 11 mcg/min currently. Hgb up to 9.4 following 4 units PRBCs transfused last night. 08/26: Tmax 99. Some unresponsive on the ventilator. CT abdomen/pelvis less than revealed small bowel obstruction at site of ventral hernia. No further bleeding noted. Gastric output approximately 700 cc. No bowel movement. 08/27: Tmax 99.7. Currently afebrile. Positive BM overnight approximately 1 L according to RN. No blood noted. 100 cc from gastric tube overnight. Hemoglobin corrected a properly. Likely dilutional. Noted fungemia currently issue. Opens eyes to voice. 08/28: Tmax 99.1. No BMs overnight. Minimal gastric tube output. Hemoglobin stable 9.5. Opens eyes to voice. Not following commands. Appears with singultus this morning. Subjective 08/29: 20 beat run of wide complex tachycardia overnight. Noted potassium 3.2. This is been replaced. We'll recheck this afternoon. Circuit exchange yesterday. Patient tolerating pressure control ventilation much better than PRVC/AC ventilation is low probably VQ scan. Less FiO2 requirements. No BM past 24 hour. 08/30: Unable to wean ventilator. 08/31: Patient was extubated on 08/30 however became tachypneic with use of accessory muscles of respiration and required reintubation around 6:30 PM last night and was placed back on mechanical ventilation. Currently sedated, orally intubated on mechanical ventilation. Post intubation chest x-ray suggested fluid overload for which she was given Lasix 40 mg IV with good response having made about 2.5 L urine the last 7 hours. 09/01: Remains sedated, orally intubated on mechanical ventilation. Diuresing well with Lasix. Awaiting EGD in a.m. 09/02: Little progress. CXR clearing nicely. Continue diuresis, tolerate hypernatremia. 09/03: Good diuretic response. CRISTHIAN today with no valvar pathology. 09/04: Too weak to tolerate extubation. Will require trach. 09/05: Sedated, arousable, following commands. Tolerated C Pap trial for 9 hours yesterday with pressure support +10. Tolerating tube feeds. Objective Vital Signs Date Time Temp Pulse Resp B/P Pulse Ox O2 Delivery O2 Flow Rate FiO2 09/04/16 22:00 86 09/04/16 21:28 40 09/04/16 21:26 97 09/04/16 20:00 99.0 27 135/85 09/04/16 19:00 Mechanical Ventilator Intake and Output 09/04/16 09/04/16 09/05/16 08:00 16:00 00:00 Intake Total 692 ml 963 ml 758 ml Output Total 650 ml 2000 ml 750 ml Balance 42 ml -1037 ml 8 ml Result Diagram: 09/03/16 1036 09/04/16 0836 Imaging Last 24 hours Impressions Chest X-Ray 08/30/16 0600 Signed Impressions: Service Date/Time: Tuesday, August 30, 2016 05:00 - CONCLUSION: Increasing consolidation in the left mid and lower lung and increasing ill-defined opacity right lower lung suggesting either infiltrate or pleural effusion. Polo Saunders MD Last Impressions Lower Extremity Ultrasound 08/28/16 0000 Signed Impressions: Service Date/Time: Sunday, August 28, 2016 22:19 - CONCLUSION: 1. The study is negative for deep venous thrombosis bilateral lower extremity. 2. Distal thigh cystic lesion with arterial pattern of flow within the central lumen suggests possible aneurysm or pseudoaneurysm. 3. Stable large left popliteal cyst. Polo Saunders MD Chest X-Ray 08/28/16 0000 Signed Impressions: Service Date/Time: Sunday, August 28, 2016 13:08 - CONCLUSION: 1. Bibasilar consolidation and small effusions are slightly worse. 2. Nasogastric pulled back in the interim, tip near the GE junction currently. Lex Lopez MD Brain MRI 08/27/16 0000 Signed Impressions: Service Date/Time: August 15:13 - CONCLUSION: No evidence of acute infarct, hemorrhage, mass or edema. No findings to suggest significant anoxic injury. Kit Power MD Renal Ultrasound 08/25/16 0000 Signed Impressions: Service Date/Time: Wednesday, August 24, 2016 21:53 - CONCLUSION: 1. There is no hydronephrosis. Both kidneys demonstrate mild increased echotexture of the parenchyma suggesting medical renal disease. 2. Trace perihepatic free fluid and bilateral pleural effusions. Lex Malik MD Chest CT 08/25/16 0000 Signed Impressions: Service Date/Time: Thursday, August 25, 2016 21:20 - CONCLUSION: 1. Bilateral pneumonia and aspiration would be in the differential. There is dependent consolidation/atelectasis and small effusions of the bases as well. 2. Upper limits of normal to mildly enlarged mediastinal lymph nodes, most likely reactive. 3. Coronary artery calcification. 4. Right rib fractures, including acute fractures laterally of the third, fourth and fifth. There are old, healed fractures anteriorly of the right second and third ribs.. Lex Lopez MD Abdomen/Pelvis CT 08/25/16 0000 Signed Impressions: Service Date/Time: Thursday, August 25, 2016 20:20 - CONCLUSION: 1. Ventral hernia containing small bowel and with associated small bowel obstruction. The defect is broad; I believe the obstruction is probably related to scarring and/or adhesions within the hernia sac. I don't see a mass. 2. Distended stomach despite NG tube present. 3. Severe aortoiliac atherosclerosis. No aneurysm. Lex Lopez MD Abdomen X-Ray 08/24/16 0000 Signed Impressions: Service Date/Time: Wednesday, August 24, 2016 17:19 - CONCLUSION: 1. Small bowel dilatation which reflect ileus or obstruction. Followup examination is recommended if clinically indicated. Gareth Escalante MD Objective Remarks GENERAL: 71-year-old male, critically ill, debilitated SKIN: Warm and dry. No rash HEAD: Atraumatic. Normocephalic. ENT: No nasal bleeding or discharge. NECK: Trachea midline. Left IJ clean dry and intact CARDIOVASCULAR: Tachycardic, RR. S1, S2. No S4. Without murmur. No JVD. RESPIRATORY: VDRF, scattered rhonchi, no wheezing. Breath sounds equal bilaterally. GASTROINTESTINAL: Soft, no guarding. Hypoactive bowel sounds. MUSCULOSKELETAL: Extremities with 1+ upper and lower extremity peripheral edema. Well perfused. NEUROLOGICAL: Orally intubated on mechanical ventilation. Responds on the ventilator to physical stimulation. Withdraws to pain in all 4 extremities Date of Insertion: Aug 26, 2016 Line: Central Venous Catheter Side: Left Location: Internal, Jugular A/P Assessment and Plan Neuro/Psych: Status post CPR 15 minutes - possible anoxic encephalopathy Depression NOS Follow neuro status. Propofol for sedation, daily sedation vacation Goal of RASS -2. Concern for anoxic encephalopathy following cardiac arrest. EEG 08/25 revealed mild to moderate encephalopathy. No epileptiform activity. MRI brain 08/27 revealed no acute findings. Holding trazodone 50 mg at night for depression Cardiovascular: Cardiac arrest status post CPR Elevated troponin History dyslipidemia History of hypertension PVD Systemic shock likely secondary to sepsis/aspiration/small bowel obstruction Possible pseudoaneurysm Off all vasopressors Currently D5W at 40 cc an hour. Continue diuresis with Lasix Continue Cardizem at 30 mg 4 times a day since blood pressures normalized. Not on any lipid-lowering agents at home. Cardiac arrest status post CPR. s/p aggressive fluid resuscitation. 5 units PRBCs transfused to date minimal troponin elevation following cardiac arrest noted. Echo 2D revealed EF 35-40%. Moderate LVH. Mitral valve calcified. Mild TR. IR consultation for occlusion of pseudoaneurysm Pulmonary: Acute respiratory failure secondary to aspiration pneumonia End-stage COPD. Oxygen dependent FEV1 28%, FVC 1.6. PRVC 16/550/5/50 Duo nebs every 4 hours and as needed, At home on Symbicort 160/4.5 twice a day and duo nebs 4 times a day Switched to Pulmicort twice a day Currently on Solu-Medrol 40 mEq IV every 8 hours. Wean Titrate FiO2 down provided O2 sat greater than 90%. CT chest revealed small pleural effusions bilaterally with likely aspiration VQ scan low probability Diurese with Lasix. Spontaneous breathing trials to decide extubation GI/liver: History of ventral hernia Hypokalemia Continue tube feeds Protonix 80 mg IV bolus followed by 8 mg/h IV infusion. GI following EGD revealed 25 cm proximal esophagus with possible bleeding. Rule out aorto esophageal fistula. Dr. roberts/general surgery evaluated. Does not believe abdomen surgical the present time. GI. Small bowel obstruction Upper GI bleed plus esophageal rule out aorto esophageal fistula History of Mary Kay esophagitis History of colonic polyps History of ventral hernia status post repair last by Dr. Roberts CT abdomen/pelvis revealed possible small bowel obstruction at level of ventral hernia. Severe aortoiliac disease. Dr. roberts/general surgery evaluated. Very poor surgical candidate this time. EGD 08/25 revealed esophageal nipple. Clots noted within the gastric contents without active bleeding. Recommended CTA rule out aorto esophageal fistula however cannot perform due to elevated creatinine. Hemoglobin appears stable. Gilles if continues upper GI bleed Continue tube feeds. Patient has had BMs Renal/: Acute kidney injury History of bladder outlet obstruction IV hydration, strict intake output, monitor and replete electro lites, follow BUN creatinine. Currently holding Flomax 0.4 mg daily No hydronephrosis on CT abdomen/pelvis Negative urine eosinophils. ID: [id number] Sepsis Fungemia Repeat blood and sputum cultures, UA and urine cultures have indicated. Appreciate ID consult with worsening leukocytosis and septic shock Empiric antibiotic coverage with IV vancomycin and Zosyn to be continued. IV Diflucan started by GI for Mary Kay esophagitis. Started on IV micafungin 08/26 secondary to yeast in blood. Pertinent cultures 08/28 - blood from central line -no growth 08/27 -arterial line blood - pending 08/26 - sputum -Serratia 08/25 - blood cultures 2 -Mary Kay 08/25 - urine -no growth 08/22 - blood cultures 2 - no growth 08/21 - urine - no growth 08/20 - blood cultures 2 - 1 out of 4 staph epi Endocrine: Chronic prednisone use secondary to COPD SSI for glycemic control as needed. Currently on Solu-Medrol 40 mg IV every 8 hours Heme: Acute blood loss anemia History of prostate cancer Leukocytosis Status post 4 units PRBCs ands 2 units FFP on 08/24. Given one unit PRBCs 08/26 Follow CBC and coags. FEN: Hypokalemia Hyperphosphatemia Replace electrolytes as clinically indicated AM labs pending. MSK: PT/OT evaluate and treat Access - Left IJ CVL day 9 Prophylaxis - GI -Protonix drip - DVT - SCD/pharmacological prophylaxis contraindicated with GI bleed Overall impression: Critically ill with ventilator dependent respiratory failure. Unable to wean ventilator; made difficult due to depressed LV function and diastolic compliance issues. Continue diuresis. Treat fungemia, possibly related to now removed femoral central line though pt did have mary kay esophagitis previously. No evidence of endocarditis. Tolerated C Pap trial for 9 hours on 09/04 with pressure support +10, attempt C Pap trial with possible extubation if tolerating CPAP+5 with pressure support +5 for 30 minutes on 09/05. Time spent on critical care excluding procedures 30 minutes Blair Espinoza MD Sep 05, 2016 00:45
[2016-09-05] MEDS: PIPERACIL-TAZO 3.375 GM PREMIX 50 ML IV SCH ×4 (02:20→20:11)
[2016-09-05] MEDS: PROPOFOL 1000 MG/100 ML INJ 100 ML IV SCH (02:21)
[2016-09-05] MEDS: methylPREDNISolone SOD SUCC 40 MG/1 ML VIAL IV PUSH SCH ×3 (02:59→20:11)
[2016-09-05] MEDS: D5W + KCL 20 MEQ INJ 1,000 ML IV SCH (03:34)
[2016-09-05 04:02] LABS: BICARBONATE 36.7 MEQ/L (21.0-32.0); CALCIUM-PROTEIN CORRECTED 8.4 MG/DL (8.5-10.1); POTASSIUM 3.4 MEQ/L (3.5-5.1); TOTAL BILIRUBIN ADULT 0.6 MG/DL (0.2-1.0)
[2016-09-05] MEDS: POTASSIUM CHLOR 40 MEQ PREMIX 100 ML IV PRN (04:41)
--- NOTE | 2016-09-05 07:32 | RADRPT ---
EXAM DATE/TIME: 09/05/2016 03:49 [place] COMPARISON: CHEST SINGLE AP, September 01, 2016, 3:19. INDICATIONS : Shortness of breath. MEDICAL HISTORY : Hypertension. Chronic obstructive pulmonary disease. SURGICAL HISTORY : None. ENCOUNTER: Subsequent ACUITY: 2 weeks PAIN SCORE: Non-responsive. LOCATION: Bilateral chest FINDINGS: Endotracheal tube tip at michele. NG enters stomach. Left central line in superior vena cava. Basilar airspace disease, left greater than right is similar to September 01. CONCLUSION: 1. Basilar airspace disease similar to prior exam. Support apparatus unchanged. Eleazar Jimenez MD on September 05, 2016 at 7:30 Board Certified Radiologist. This report was verified electronically.
[2016-09-05] MEDS: RESP: BUDESONIDE 0.5 MG/2 ML NEB NEB SCH ×2 (08:01→21:24)
[2016-09-05 08:03] LABS: AUTOMATED NEUTROPHIL # 9.7 TH/MM3 (1.8-7.7); BASOPHIL % 0.2 % (0.0-2.0); HEMATOCRIT 24.2 % (39.0-51.0); LYMPH % 2.7 % (9.0-44.0); LYMPHOCYTE # 0.3 TH/MM3 (1.0-4.8); MEAN CELL VOLUME 91.5 FL (80.0-100.0); MEAN CORPUSCULAR HEMOGLOBIN 30.4 PG (27.0-34.0); MEAN CORPUSCULAR HGB CONC 33.2 % (32.0-36.0); MONO % 2.7 % (0.0-8.0); NEUT % 94.4 % (16.0-70.0); PLATELET COUNT 129 TH/MM3 (150-450); RED BLOOD COUNT 2.65 MIL/MM3 (4.50-5.90); RED CELL DISTRIBUTION WIDTH 16.9 % (11.6-17.2); WHITE BLOOD COUNT 10.3 TH/MM3 (4.0-11.0)
[2016-09-05 08:05] LABS: HEMO FLAGS AUTO DIFF
[2016-09-05] MEDS: DILTIAZEM HCL 30 MG TAB PO SCH ×4 (09:08→20:11)
[2016-09-05] MEDS: PANTOPRAZOLE SODIUM 40 MG VIAL IV PUSH SCH ×2 (09:08→20:11)
[2016-09-05] MEDS: FUROSEMIDE 40 MG/4 ML VIAL IV PUSH SCH (09:08)
[2016-09-05] MEDS: SODIUM CHLORIDE 0.9% FLUSH 5 ML FLUSH IVF SCH (09:09)
[2016-09-05] MEDS: MULTIVITAMIN TAB PO SCH (09:09)
[2016-09-05 09:14] LABS: ACANTHOCYTES OCC (NORMAL); PLATELET ESTIMATE SMEAR LOW (NORMAL); PLATELET MORPHOLOGY ENLARGED (NORMAL); SCAN/DIFF AUTO DIFF CONFIRMED
--- NOTE | 2016-09-05 11:39 | HHI.IDPN ---
Subjective Subjective Remarks is a 71 y/o CM with COPD and oxygen dependent, Ashley esophagitis, prior h/o pneumonia. According to the since the patient was discharged he continued to have nausea and vomiting. He has not had any bowel movement, and she thinks in the last 3 weeks. Patient started having more weakness, and was getting more short of breath, so the patient presented back to the hospital and was admitted August 20. He was admitted as a COPD exacerbation and pneumonia. He was put on empiric antibiotics. Patient had in hospital cardiorespiratory arrest. He was successfully resuscitated, and intubated. Patient had an A- line in arm, CL in groin which was changed on 08/27/16. 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 Patient continues to have elevated WBC, and is being treated for sepsis secondary to aspiration PNA, Fungemia likely line related (groin line likely now DCed). Notes reviewed D/W RN Temps ok Off levophed Tolerating CPAP trials Being eval for possible extubation CRISTHIAN negative Last (+) BC 08/27 with C glabrata First (+) BC with C albicans and C glabrata Last (+) BC 08/27 Has pseudoaneurysm R femoral artery Sputum with Serratia CXR stable WBC down to normal Antibiotics Zosyn IV (aspiration PNA) IV Micafungin (for fungal line infection) Lines L I J central line Past Medical History Hypertension COPD O2 dependent prostate cancer Bladder outlet obstruction Hyperlipidemia Past Surgical History Ventral hernia Appendectomy Perforated gastric ulcer surgery Cataract Upper and lower endoscopy Allergies: Coded Allergies: *MDRO Multi-Drug Resistant Organism (Verified Adverse Reaction, Unknown, ) MRSA (abdominal wound) 2015 per 04/10/2015 H&P MRSA PCR Screen #1 NEGATIVE - 08/21/16 Objective . Vital Signs Date Time Temp Pulse Resp B/P Pulse Ox O2 Delivery O2 Flow Rate FiO2 09/05/16 10:00 79 09/05/16 08:02 40 09/05/16 08:00 75 09/05/16 08:00 40 09/05/16 08:00 99.6 74 22 156/97 98 09/05/16 07:53 98 40 09/05/16 07:00 98 Mechanical Ventilator 40 09/05/16 06:00 74 09/05/16 04:24 100 40 09/05/16 04:00 66 09/05/16 04:00 40 09/05/16 04:00 98.4 66 22 149/84 100 09/05/16 02:00 72 09/05/16 01:16 96 40 09/05/16 00:00 40 09/05/16 00:00 98.6 72 18 137/70 95 09/05/16 00:00 72 09/04/16 22:00 86 09/04/16 21:28 40 09/04/16 21:26 97 40 09/04/16 20:00 82 09/04/16 20:00 40 09/04/16 20:00 99.0 82 27 135/85 99 09/04/16 19:00 97 Mechanical Ventilator 40 09/04/16 18:00 80 09/04/16 16:00 99.0 79 27 158/84 99 09/04/16 16:00 40 09/04/16 16:00 79 09/04/16 14:00 80 09/04/16 12:00 40 09/04/16 12:00 99.6 87 25 140/86 97 09/04/16 12:00 96 09/04/16 09/04/16 09/05/16 15:00 23:00 07:00 Intake Total 963 ml 758 ml 939 ml Output Total 2000 ml 750 ml 650 ml Balance -1037 ml 8 ml 289 ml IV Total 569 ml 356 ml 390 ml Tube Feeding 334 ml 282 ml 309 ml Other 60 ml 120 ml 240 ml Output Urine Total 2000 ml 750 ml 650 ml # Bowel Movements 2 3 1 . Laboratory Tests Test 09/05/16 07:55 White Blood Count 10.3 TH/MM3 Red Blood Count 2.65 MIL/MM3 Hemoglobin 8.0 GM/DL Hematocrit 24.2 % Mean Corpuscular Volume 91.5 FL Mean Corpuscular Hemoglobin 30.4 PG Mean Corpuscular Hemoglobin 33.2 % Concent Red Cell Distribution Width 16.9 % Platelet Count 129 TH/MM3 Mean Platelet Volume 9.6 FL Neutrophils (%) (Auto) 94.4 % Lymphocytes (%) (Auto) 2.7 % Monocytes (%) (Auto) 2.7 % Eosinophils (%) (Auto) 0.0 % Basophils (%) (Auto) 0.2 % Neutrophils # (Auto) 9.7 TH/MM3 Lymphocytes # (Auto) 0.3 TH/MM3 Monocytes # (Auto) 0.3 TH/MM3 Eosinophils # (Auto) 0.0 TH/MM3 Basophils # (Auto) 0.0 TH/MM3 CBC Comment AUTO DIFF Differential Comment AUTO DIFF CONFIRMED Platelet Estimate LOW Platelet Morphology Comment ENLARGED Acanthocytes OCC Laboratory Tests Test 09/04/16 09/04/16 09/05/16 03:00 08:36 03:05 Potassium Level 3.4 MEQ/L 3.5 MEQ/L 3.4 MEQ/L Sodium Level 151 MEQ/L Chloride Level 108 MEQ/L Carbon Dioxide Level 36.7 MEQ/L Anion Gap 6 MEQ/L Blood Urea Nitrogen 30 MG/DL Creatinine 1.13 MG/DL Estimat Glomerular Filtration 64 ML/MIN Rate Random Glucose 216 MG/DL Calcium Level 7.2 MG/DL Protein Corrected Calcium 8.4 MG/DL Total Bilirubin 0.6 MG/DL Aspartate Amino Transf 25 U/L (AST/SGOT) Alanine Aminotransferase 35 U/L (ALT/SGPT) Alkaline Phosphatase 131 U/L Total Protein 4.9 GM/DL Albumin 1.7 GM/DL Microbiology Date/Time Procedure Status Source Growth 09/02/16 14:05 Aerobic Blood Culture - Preliminary Resulted Blood Peripheral NO GROWTH IN 3 DAYS 09/02/16 14:05 Anaerobic Blood Culture - Preliminary Resulted Blood Peripheral NO GROWTH IN 3 DAYS 09/03/16 03:48 Aerobic Blood Culture - Preliminary Resulted Blood Peripheral NO GROWTH IN 2 DAYS 09/03/16 03:48 Anaerobic Blood Culture - Preliminary Resulted Blood Peripheral NO GROWTH IN 2 DAYS Imaging Chest X-Ray 09/01/16 0600 Signed Impressions: Service Date/Time: Thursday, September 01, 2016 03:19 - CONCLUSION: No significant interval change in bilateral pulmonary parenchymal opacity and small bilateral pleural effusions. 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 There is concentric mural thrombus. This aneurysm is not amenable to thrombin injection. Polo Moore Jr., MD Chest X-Ray 08/27/16 0600 Signed Impressions: Service Date/Time: August 02:27 - CONCLUSION: 1. Patchy bilateral airspace disease with improving aeration/decreasing effusions in the bases bilaterally. 2. Stable position of life support tubes. Con Valdes MD Chest X-Ray 08/26/16 0754 Signed Impressions: Service Date/Time: Friday, August 26, 2016 08:14 - CONCLUSION: Left IJ central line distal tip in the SVC. No pneumothorax is visualized. There is a stable appearance the lungs with bilateral airspace consolidation. Lex Malik MD Chest X-Ray 08/26/16 0600 Signed Impressions: Service Date/Time: Friday, August 26, 2016 04:01 - CONCLUSION: 1. Worsening bibasilar effusions/atelectasis with diffuse interstitial edema, all characteristic of CHF. 2. Endotracheal tube remains appropriately positioned above the michele Con Valdes MD Chest X-Ray 08/26/16 0754 Signed Impressions: Service Date/Time: Friday, August 26, 2016 08:14 - CONCLUSION: Left IJ central line distal tip in the SVC. No pneumothorax is visualized. There is a stable appearance the lungs with bilateral airspace consolidation. Lex Malik MD Renal Ultrasound 08/25/16 0000 Signed Impressions: Service Date/Time: Wednesday, August 24, 2016 21:53 - CONCLUSION: 1. There is no hydronephrosis. Both kidneys demonstrate mild increased echotexture of the parenchyma suggesting medical renal disease. 2. Trace perihepatic free fluid and bilateral pleural effusions. Lex Malik MD Chest CT 08/25/16 0000 Signed Impressions: Service Date/Time: Thursday, August 25, 2016 21:20 - CONCLUSION: 1. Bilateral pneumonia and aspiration would be in the differential. There is dependent consolidation/atelectasis and small effusions of the bases as well. 2. Upper limits of normal to mildly enlarged mediastinal lymph nodes, most likely reactive. 3. Coronary artery calcification. 4. Right rib fractures, including acute fractures laterally of the third, fourth and fifth. There are old, healed fractures anteriorly of the right second and third ribs.. Lex Lopez MD Abdomen/Pelvis CT 08/25/16 0000 Signed Impressions: Service Date/Time: Thursday, August 25, 2016 20:20 - CONCLUSION: 1. Ventral hernia containing small bowel and with associated small bowel obstruction. The defect is broad; I believe the obstruction is probably related to scarring and/or adhesions within the hernia sac. I don't see a mass. 2. Distended stomach despite NG tube present. 3. Severe aortoiliac atherosclerosis. No aneurysm. Lex Lopez MD Abdomen X-Ray 08/24/16 0000 Signed Impressions: Service Date/Time: Wednesday, August 24, 2016 17:19 - CONCLUSION: 1. Small bowel dilatation which reflect ileus or obstruction. Followup examination is recommended if clinically indicated. Gareth Escalante MD Physical Exam GENERAL: awake, responding, on the vent, NAD SKIN: Warm and dry. No generalized rash HEENT: Pale conjunctivae, no petechia or hemorrhage. No scleral icterus. . Has endotracheal tube in the mouth. NGT in place NECK: Trachea midline. No JVD or lymphadenopathy. Supple. LIJ TLC looks ok CARDIOVASCULAR: Regular rate and rhythm without murmurs, gallops, or rubs. RESPIRATORY: Decreased breath sounds throughout both lung garcia. GASTROINTESTINAL: Abdomen soft, not tender, not distended. Has an incisional hernia. Has midline scar. Bowel sounds are hypoactive, no guarding. No redness noted in R groin MUSCULOSKELETAL: Extremities without clubbing, cyanosis. Edema better NEUROLOGICAL: Awake, focusing occ responds PSYCH: Responding LINE: LIJ TLC no evidence of infection. Assessment & Plan Remarks IMPRESSION Sepsis present on admission and then sepsis again. Central line associated blood stream infection (CLABSI) related fungemia ( likely groin line) now discontinued. Arterial line discontinued as well. 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 Possible pulm edema. Diarrhea ? Cdiff vs antibiotic associated. Status post cardiorespiratory arrest, likely aspirated Findings SBO within the hernia on CT A/P, clinically better Acute respiratory failure on vent. GI bleed Leukocytosis, worsening, most likely multifactorial, fungemia, due to acute GI bleed as well as aspiration and arrest COPD, oxygen dependent Previous GI bleed with workup showing gastritis, Ashley esophagitis, and polyps Large incisional ventral hernia Bladder outlet obstruction, currently has a Hammond Renal insufficiency RECOMMENDATION Continue Micafungin IV (C.glabrata fungemia) Continue Zosyn IV (for aspiration PNA) Follow cultures Monitor progress Has possible pseudoaneurysm at site of femoral line, and will likely treat for 4 weeks with antifungal. Weaning per CCM, possible extubation D/W Nuha Nguyen MD Sep 05, 2016 11:39
[2016-09-05] MEDS: MICAFUNGIN INJ 100 MG in SODIUM CHLORIDE 0.9% INJ 100 ML IV SCH (12:07)
[2016-09-05] MEDS: RESP: ALBUTEROL 2.5 MG/IPRATROPIUM 0.5 MG NEB (PRN) INH ×3 (13:48→21:24)
[2016-09-05] MEDS ORDERED: ACETAMINOPHEN 650 MG SUPP RECTAL PRN (18:30)
[2016-09-06] VITALS (17 sets, daily range): BP systolic 98–162; BP diastolic 62–102; PULSE 64–134; RESP 16–31; TEMP 98.4–98.8; O2SAT 92–100
[2016-09-06] MEDS: RESP: ALBUTEROL 2.5 MG/IPRATROPIUM 0.5 MG NEB (PRN) INH (02:21)
[2016-09-06] MEDS: PIPERACIL-TAZO 3.375 GM PREMIX 50 ML IV SCH ×4 (03:02→20:19)
[2016-09-06] MEDS: methylPREDNISolone SOD SUCC 40 MG/1 ML VIAL IV PUSH SCH ×3 (03:02→20:18)
[2016-09-06] MEDS ORDERED: FUROSEMIDE 40 MG/4 ML VIAL IV ONE (04:30)
[2016-09-06 06:44] LABS: BASOPHIL % 0.2 % (0.0-2.0); HEMATOCRIT 26.1 % (39.0-51.0); LYMPH % 2.2 % (9.0-44.0); LYMPHOCYTE # 0.3 TH/MM3 (1.0-4.8); MEAN CELL VOLUME 90.8 FL (80.0-100.0); MEAN CORPUSCULAR HEMOGLOBIN 30.2 PG (27.0-34.0); MEAN CORPUSCULAR HGB CONC 33.3 % (32.0-36.0); NEUT % 92.6 % (16.0-70.0); PLATELET COUNT 166 TH/MM3 (150-450); RED BLOOD COUNT 2.88 MIL/MM3 (4.50-5.90)
[2016-09-06 06:57] LABS: HEMO FLAGS AUTO DIFF
[2016-09-06 07:23] LABS: ALKALINE PHOSPHATASE 159 U/L (45-117); ALT (GPT) 44 U/L (12-78); ANION GAP 10 MEQ/L (5-15); AST (GOT) 29 U/L (15-37); BICARBONATE 35.5 MEQ/L (21.0-32.0); BLOOD UREA NITROGEN 26 MG/DL (7-18); CHLORIDE 105 MEQ/L (98-107); GLOMERULAR FILTRATION RATE 67 ML/MIN (>89); POTASSIUM 3.6 MEQ/L (3.5-5.1); SODIUM (NA) 150 MEQ/L (136-145); TOTAL BILIRUBIN ADULT 0.8 MG/DL (0.2-1.0)
[2016-09-06 07:49] LABS: ACANTHOCYTES OCC (NORMAL); BANDS 16 % (0-6); HELMET CELLS OCC (NORMAL); METAMYELOCYTES 1 % (0-1); MYELOCYTES 1 % (0-0); NEUTROPHIL # MANUAL DIFF 12.7 TH/MM3 (1.8-7.7); PLATELET ESTIMATE SMEAR NORMAL (NORMAL); PLATELET MORPHOLOGY ENLARGED (NORMAL); POLYS (SEG NEUTROPHILS) 73 % (16-70); SCAN/DIFF FINAL DIFF MANUAL; WBC DIFF SAMPLE 100
[2016-09-06] MEDS: FUROSEMIDE 40 MG/4 ML VIAL IV PUSH SCH (08:28)
[2016-09-06] MEDS: MULTIVITAMIN TAB PO SCH ×2 (08:30→11:50)
[2016-09-06] MEDS: DILTIAZEM HCL 30 MG TAB PO SCH ×4 (08:30→20:20)
[2016-09-06] MEDS: PANTOPRAZOLE SODIUM 40 MG VIAL IV PUSH SCH ×2 (08:30→20:20)
[2016-09-06] MEDS: SODIUM CHLORIDE 0.9% FLUSH 5 ML FLUSH IVF SCH (09:00)
--- NOTE | 2016-09-06 09:14 | HHI.IDPN ---
Subjective Subjective Remarks is a 71 y/o CM with COPD and oxygen dependent, Ashley esophagitis, prior h/o pneumonia. According to the since the patient was discharged he continued to have nausea and vomiting. He has not had any bowel movement, and she thinks in the last 3 weeks. Patient started having more weakness, and was getting more short of breath, so the patient presented back to the hospital and was admitted August 20. He was admitted as a COPD exacerbation and pneumonia. He was put on empiric antibiotics. Patient had in hospital cardiorespiratory arrest. He was successfully resuscitated, and intubated. Patient had an A- line in arm, CL in groin which was changed on 08/27/16. 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 Patient continues to have elevated WBC, and is being treated for sepsis secondary to aspiration PNA, Fungemia likely line related (groin line likely now DCed). Notes reviewed D/W RN Got extubated yesterday Was on nasal O2 overnight, but daughter said patient looked SOB On NRB mask currently, C/O SOB Temps ok BP ok CRISTHIAN negative Last (+) BC 08/27 with C glabrata First (+) BC with C albicans and C glabrata Follow up BC negative Has pseudoaneurysm R femoral artery Sputum with Serratia WBC down to normal Antibiotics Zosyn IV (aspiration PNA) IV Micafungin (for fungal line infection) Lines L I J central line Past Medical History Hypertension COPD O2 dependent prostate cancer Bladder outlet obstruction Hyperlipidemia Past Surgical History Ventral hernia Appendectomy Perforated gastric ulcer surgery Cataract Upper and lower endoscopy Allergies: Coded Allergies: *MDRO Multi-Drug Resistant Organism (Verified Adverse Reaction, Unknown, ) MRSA (abdominal wound) 2015 per 04/10/2015 H&P MRSA PCR Screen #1 NEGATIVE - 08/21/16 Objective . Vital Signs Date Time Temp Pulse Resp B/P Pulse Ox O2 Delivery O2 Flow Rate FiO2 09/06/16 08:00 98.8 104 28 146/84 94 09/06/16 08:00 104 09/06/16 07:00 99 Non-Rebreather 15.00 94 09/06/16 06:00 111 09/06/16 04:00 98.4 134 31 162/102 92 09/06/16 04:00 134 09/06/16 02:00 114 09/06/16 00:00 118 09/06/16 00:00 98.5 118 26 152/99 92 09/05/16 22:00 121 09/05/16 20:33 97 Nasal Cannula 6.00 09/05/16 20:00 107 09/05/16 20:00 98.6 107 25 146/78 99 09/05/16 19:00 99 Nasal Cannula 5.00 09/05/16 18:00 114 09/05/16 16:00 98.0 108 25 135/77 96 09/05/16 16:00 108 09/05/16 14:00 100 09/05/16 12:00 98.1 98 21 146/82 93 09/05/16 12:00 95 09/05/16 11:41 96 Nasal Cannula 6.00 09/05/16 11:40 96 Nasal Cannula 6 09/05/16 10:00 79 09/05/16 09/05/16 09/06/16 15:00 23:00 07:00 Intake Total 856 ml 918 ml 35 ml Output Total 1650 ml 350 ml 650 ml Balance -794 ml 568 ml -615 ml Intake Oral 0 ml 0 ml IV Total 411 ml 918 ml 35 ml Tube Feeding 205 ml Other 240 ml Output Urine Total 1650 ml 350 ml 650 ml # Bowel Movements 2 0 2 . Laboratory Tests Test 09/05/16 09/06/16 07:55 06:00 White Blood Count 10.3 TH/MM3 14.0 TH/MM3 Red Blood Count 2.65 MIL/MM3 2.88 MIL/MM3 Hemoglobin 8.0 GM/DL 8.7 GM/DL Hematocrit 24.2 % 26.1 % Mean Corpuscular Volume 91.5 FL 90.8 FL Mean Corpuscular Hemoglobin 30.4 PG 30.2 PG Mean Corpuscular Hemoglobin 33.2 % 33.3 % Concent Red Cell Distribution Width 16.9 % 17.0 % Platelet Count 129 TH/MM3 166 TH/MM3 Mean Platelet Volume 9.6 FL 10.1 FL Neutrophils (%) (Auto) 94.4 % 92.6 % Lymphocytes (%) (Auto) 2.7 % 2.2 % Monocytes (%) (Auto) 2.7 % 5.0 % Eosinophils (%) (Auto) 0.0 % 0.0 % Basophils (%) (Auto) 0.2 % 0.2 % Neutrophils # (Auto) 9.7 TH/MM3 13.0 TH/MM3 Lymphocytes # (Auto) 0.3 TH/MM3 0.3 TH/MM3 Monocytes # (Auto) 0.3 TH/MM3 0.7 TH/MM3 Eosinophils # (Auto) 0.0 TH/MM3 0.0 TH/MM3 Basophils # (Auto) 0.0 TH/MM3 0.0 TH/MM3 CBC Comment AUTO DIFF AUTO DIFF Differential Comment AUTO DIFF FINAL DIFF CONFIRMED MANUAL Platelet Estimate LOW NORMAL Platelet Morphology Comment ENLARGED ENLARGED Acanthocytes OCC OCC Differential Total Cells 100 Counted Neutrophils % (Manual) 73 % Band Neutrophils % 16 % Lymphocytes % 3 % Monocytes % 6 % Neutrophils # (Manual) 12.7 TH/MM3 Metamyelocytes 1 % Myelocytes 1 % Helmet Cells OCC Laboratory Tests Test 09/05/16 09/06/16 03:05 06:00 Sodium Level 151 MEQ/L 150 MEQ/L Potassium Level 3.4 MEQ/L 3.6 MEQ/L Chloride Level 108 MEQ/L 105 MEQ/L Carbon Dioxide Level 36.7 MEQ/L 35.5 MEQ/L Anion Gap 6 MEQ/L 10 MEQ/L Blood Urea Nitrogen 30 MG/DL 26 MG/DL Creatinine 1.13 MG/DL 1.09 MG/DL Estimat Glomerular Filtration 64 ML/MIN 67 ML/MIN Rate Random Glucose 216 MG/DL 166 MG/DL Calcium Level 7.2 MG/DL 8.1 MG/DL Protein Corrected Calcium 8.4 MG/DL Total Bilirubin 0.6 MG/DL 0.8 MG/DL Aspartate Amino Transf 25 U/L 29 U/L (AST/SGOT) Alanine Aminotransferase 35 U/L 44 U/L (ALT/SGPT) Alkaline Phosphatase 131 U/L 159 U/L Total Protein 4.9 GM/DL 6.0 GM/DL Albumin 1.7 GM/DL 1.9 GM/DL Imaging Chest X-Ray 09/05/16 0500 Signed Impressions: Service Date/Time: Monday, September 05, 2016 03:49 - CONCLUSION: 1. Basilar airspace disease similar to prior exam. Support apparatus unchanged. Eleazar Jimenez MD Chest X-Ray 09/01/16 0600 Signed Impressions: Service Date/Time: Thursday, September 01, 2016 03:19 - CONCLUSION: No significant interval change in bilateral pulmonary parenchymal opacity and small bilateral pleural effusions. 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 There is concentric mural thrombus. This aneurysm is not amenable to thrombin injection. Polo Moore Jr., MD Chest X-Ray 08/27/16 06 Signed Impressions: Service Date/Time: August 02:27 - CONCLUSION: 1. Patchy bilateral airspace disease with improving aeration/decreasing effusions in the bases bilaterally. 2. Stable position of life support tubes. Con Valdes MD Chest X-Ray 08/26/16753 Signed Impressions: Service Date/Time: Friday, August 26, 2016 08:14 - CONCLUSION: Left IJ central line distal tip in the SVC. No pneumothorax is visualized. There is a stable appearance the lungs with bilateral airspace consolidation. Lex Malik MD Chest X-Ray 08/26/[id number] Signed Impressions: Service Date/Time: Friday, August 26, 2016 04:01 - CONCLUSION: 1. Worsening bibasilar effusions/atelectasis with diffuse interstitial edema, all characteristic of CHF. 2. Endotracheal tube remains appropriately positioned above the michele Con Valdes MD Chest X-Ray 08/26/16 0754 Signed Impressions: Service Date/Time: Friday, August 26, 2016 08:14 - CONCLUSION: Left IJ central line distal tip in the SVC. No pneumothorax is visualized. There is a stable appearance the lungs with bilateral airspace consolidation. Lex Malik MD Renal Ultrasound 08/25/16 Signed Impressions: Service Date/Time: Wednesday, August 24, 2016 21:53 - CONCLUSION: 1. There is no hydronephrosis. Both kidneys demonstrate mild increased echotexture of the parenchyma suggesting medical renal disease. 2. Trace perihepatic free fluid and bilateral pleural effusions. Lex Malik MD Chest CT 08/25/16 Signed Impressions: Service Date/Time: Thursday, August 25, 2016 21:20 - CONCLUSION: 1. Bilateral pneumonia and aspiration would be in the differential. There is dependent consolidation/atelectasis and small effusions of the bases as well. 2. Upper limits of normal to mildly enlarged mediastinal lymph nodes, most likely reactive. 3. Coronary artery calcification. 4. Right rib fractures, including acute fractures laterally of the third, fourth and fifth. There are old, healed fractures anteriorly of the right second and third ribs.. Lex Lopez MD Abdomen/Pelvis CT 08/25/16 0000 Signed Impressions: Service Date/Time: Thursday, August 25, 2016 20:20 - CONCLUSION: 1. Ventral hernia containing small bowel and with associated small bowel obstruction. The defect is broad; I believe the obstruction is probably related to scarring and/or adhesions within the hernia sac. I don't see a mass. 2. Distended stomach despite NG tube present. 3. Severe aortoiliac atherosclerosis. No aneurysm. Lex Lopez MD Abdomen X-Ray 08/24/16 0000 Signed Impressions: Service Date/Time: Wednesday, August 24, 2016 17:19 - CONCLUSION: 1. Small bowel dilatation which reflect ileus or obstruction. Followup examination is recommended if clinically indicated. Gareth Escalante MD Physical Exam GENERAL: awake, dyspneic when trying to talk, hoarse voice. On NRB mask SKIN: Warm and dry. No generalized rash HEENT: Pale conjunctivae, no petechia or hemorrhage. No scleral icterus. . on NRB mask NECK: Trachea midline. No JVD or lymphadenopathy. Supple. LIJ TLC looks ok CARDIOVASCULAR: Regular rate and rhythm without murmurs, gallops, or rubs. RESPIRATORY: Decreased breath sounds throughout both lung garcia. GASTROINTESTINAL: Abdomen soft, not tender, not distended. Has an incisional hernia. Has midline scar. Bowel sounds are hypoactive, no guarding. No redness or tenderness noted in R groin MUSCULOSKELETAL: Extremities without clubbing, cyanosis. Edema better NEUROLOGICAL: Awake, non-focal PSYCH: Cooperative LINE: LIJ TLC no evidence of infection. Assessment & Plan Remarks IMPRESSION Sepsis present on admission and then sepsis again. Central line associated blood stream infection (CLABSI) related fungemia ( likely groin line) now discontinued. Arterial line discontinued as well. 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 Possible pulm edema. Diarrhea ? Cdiff vs antibiotic associated. Status post cardiorespiratory arrest, likely aspirated Findings SBO within the hernia on CT A/P, clinically better Acute respiratory failure, extubated 09/05 - on NRB mask this morning GI bleed, stable Leukocytosis, resolved COPD, oxygen dependent Previous GI bleed with workup showing gastritis, Ashley esophagitis, and polyps Large incisional ventral hernia Bladder outlet obstruction, currently has a Hammond Renal insufficiency RECOMMENDATION Continue Micafungin IV (C.glabrata fungemia) Continue Zosyn IV (for aspiration PNA) - possibly D/C is stable CXR today has been ordered Follow cultures Monitor progress Has possible pseudoaneurysm at site of femoral line, and will likely treat for 4 weeks with antifungal. Monitor respiratory status D/W RN Spoke with daughter Nuha Fernandez MD Sep 06, 2016 09:13
--- NOTE | 2016-09-06 09:18 | RADRPT ---
EXAM DATE/TIME: 09/06/2016 08:50 [facility] COMPARISON: CHEST SINGLE AP, September 05, 2016, 3:49. INDICATIONS : Respiratory failure. MEDICAL HISTORY : Hypertension. Chronic obstructive pulmonary disease. Carcinoma, prostatic. Emphysema. Diabetes. SURGICAL HISTORY : Hernia repair. ENCOUNTER: Subsequent ACUITY: 2 weeks PAIN SCORE: 0/10 LOCATION: Bilateral chest FINDINGS: A single view of the chest demonstrates left-sided density with volume loss. Left jugular central in stable position. Minimal patchy density throughout the right lung. Osseous structures are intact. CONCLUSION: 1. Increasing density throughout the left hemithorax with volume loss suggesting mucus plugging. Eduardo Mcconnell MD on September 06, 2016 at 9:11 Board Certified Radiologist. This report was verified electronically.
--- NOTE | 2016-09-06 09:47 | HHI.CCPN ---
Subjective Remarks/Hospital Course 08/24: 71 Year-old male with a medical history significant for COPD on home oxygen who was recently admitted with suspected sepsis/H And was initiated on IV antibiotics and steroids. He had recently been evaluated by GI and underwent EGD on 08/10/2016 and was found to have moderate esophagitis, mild gastritis with pathology subsequently showing Ashley esophagitis as well as colonoscopy on 08/11/2016 with polypectomy and ablation of polyp in ascending colon with hot snare. Patient has been dealing with constipation since his admission. Today when he was trying to have a bowel movement he suddenly became less responsive and then had a large emesis which resulted in aspiration and hemodynamic collapse. Patient initially had large volume emesis with dark maroon blood. CODE BLUE cardiac arrest code was activated. On my arrival patient was in bed CPR had been initiated. Significant gastric contents was still being suctioned out of his oral cavity. ACLS protocol was continued. Patient was intubated following vigorous suctioning of gastric contents from oral cavity as well as with placement of NG tube which is hooked up to suction and about 1.5 L of gastric contents being suctioned out which appeared to be dark maroon in color. Patient initially had a pulse when CODE BLUE was called and subsequently went in PEA arrest followed by asystole during ACLS and then V. fib for which he was defibrillated with 200 J 1, CPR/ACLS protocol was continued and patient eventually had return of spontaneous circulation after about 15 minutes of CPR/ACLS. Patient was transferred to [facility] and placed on mechanical ventilation. I emergently placed left femoral central line for central vascular access and he was started on Levophed for pressor support. 2 units of O- 1 crossmatch blood were ordered and transfused stat. He also received 1 L of normal saline bolus following return of spontaneous circulation. Stat labs were ordered. His hemoglobin on ABG done post resuscitation was 5.6. I did order Protonix 80 mg IV stat followed by 8 mg per hour IV infusion. Patient remained encephalopathic though was minimally responsive following transfer to the ICU. GI consult was requested and I spoke with Dr. Zamarripa at bedside on his arrival. History was obtained by reviewing records, discussion with family/ GI as well as nursing staff. According to patient's daughter he has not been doing well for the last few months in terms of his breathing and has been using his home oxygen more often. He gets extremely short of breath even with the least exertion. 08/25: Remains encephalopathic/ sedated, orally intubated on [facility] ventilation. Transiently off levophed last night however back to 11 mcg/min currently. Hgb up to 9.4 following 4 units PRBCs transfused last night. 08/26: Tmax 99. Some unresponsive on the ventilator. CT abdomen/pelvis less than revealed small bowel obstruction at site of ventral hernia. No further bleeding noted. Gastric output approximately 700 cc. No bowel movement. 08/27: Tmax 99.7. Currently afebrile. Positive BM overnight approximately 1 L according to RN. No blood noted. 100 cc from gastric tube overnight. Hemoglobin corrected a properly. Likely dilutional. Noted fungemia currently issue. Opens eyes to voice. 08/28: Tmax 99.1. No BMs overnight. Minimal gastric tube output. Hemoglobin stable 9.5. Opens eyes to voice. Not following commands. Appears with singultus this morning. 08/29: 20 beat run of wide complex tachycardia overnight. Noted potassium 3.2. This is been replaced. We'll recheck this afternoon. Circuit exchange yesterday. Patient tolerating pressure control ventilation much better than PRVC/AC ventilation is low probably VQ scan. Less FiO2 requirements. No BM past 24 hour. 08/30: Unable to wean ventilator. 08/31: Patient was extubated on 08/30 however became tachypneic with use of accessory muscles of respiration and required reintubation around 6:30 PM last night and was placed back on mechanical ventilation. Currently sedated, orally intubated on mechanical ventilation. Post intubation chest x-ray suggested fluid overload for which she was given Lasix 40 mg IV with good response having made about 2.5 L urine the last 7 hours. 09/01: Remains sedated, orally intubated on mechanical ventilation. Diuresing well with Lasix. Awaiting EGD in a.m. 09/02: Little progress. CXR clearing nicely. Continue diuresis, tolerate hypernatremia. 09/03: Good diuretic response. CRISTHIAN today with no valvar pathology. 09/04: Too weak to tolerate extubation. Will require trach. 09/05: Sedated, arousable, following commands. Tolerated C Pap trial for 9 hours yesterday with pressure support +10. Tolerating tube feeds. Subjective 09/06: Extubated yesterday. Chest x-ray reveals likely mucous plugging in left lung garcia. Currently on nonrebreather mask. Planning of insomnia and thick secretions that he is unable to cough up. Objective Vital Signs Date Time Temp Pulse Resp B/P Pulse Ox O2 Delivery O2 Flow Rate FiO2 09/06/16 08:00 98.8 104 28 146/84 94 09/06/16 07:00 Non-Rebreather 15.00 94 Intake and Output 09/05/16 09/05/16 09/06/16 08:00 16:00 00:00 Intake Total 939 ml 856 ml 918 ml Output Total 650 ml 1650 ml 350 ml Balance 289 ml -794 ml 568 ml Result Diagram: 09/06/16 0600 09/06/16 0600 Other Results Microbiology Date/Time Procedure Status Source Growth 09/03/16 03:48 Aerobic Blood Culture - Preliminary Resulted Blood Peripheral NO GROWTH IN 2 DAYS 09/03/16 03:48 Anaerobic Blood Culture - Preliminary Resulted Blood Peripheral NO GROWTH IN 2 DAYS Imaging Last Impressions Chest X-Ray 09/06/16 0000 Signed Impressions: Service Date/Time: Tuesday, September 06, 2016 08:50 - CONCLUSION: 1. Increasing density throughout the left hemithorax with volume loss suggesting mucus plugging. 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 There is concentric mural thrombus. This aneurysm is not amenable to thrombin injection. Polo Moore Jr., MD Lung Scan- Nuclear Medicine 08/29/16 0000 Signed Impressions: Service Date/Time: Monday, August 29, 2016 10:20 - CONCLUSION: Low probability for pulmonary embolus. Lex Lopez MD Brain MRI 08/27/16 0000 Signed Impressions: Service Date/Time: August 15:13 - CONCLUSION: No evidence of acute infarct, hemorrhage, mass or edema. No findings to suggest significant anoxic injury. Kit Power MD Renal Ultrasound 08/25/16 0000 Signed Impressions: Service Date/Time: Wednesday, August 24, 2016 21:53 - CONCLUSION: 1. There is no hydronephrosis. Both kidneys demonstrate mild increased echotexture of the parenchyma suggesting medical renal disease. 2. Trace perihepatic free fluid and bilateral pleural effusions. Lex Malik MD Chest CT 08/25/16 0000 Signed Impressions: Service Date/Time: Thursday, August 25, 2016 21:20 - CONCLUSION: 1. Bilateral pneumonia and aspiration would be in the differential. There is dependent consolidation/atelectasis and small effusions of the bases as well. 2. Upper limits of normal to mildly enlarged mediastinal lymph nodes, most likely reactive. 3. Coronary artery calcification. 4. Right rib fractures, including acute fractures laterally of the third, fourth and fifth. There are old, healed fractures anteriorly of the right second and third ribs.. Lex Lopez MD Abdomen/Pelvis CT 08/25/16 Signed Impressions: Service Date/Time: Thursday, August 25, 2016 20:20 - CONCLUSION: 1. Ventral hernia containing small bowel and with associated small bowel obstruction. The defect is broad; I believe the obstruction is probably related to scarring and/or adhesions within the hernia sac. I don't see a mass. 2. Distended stomach despite NG tube present. 3. Severe aortoiliac atherosclerosis. No aneurysm. Lex Lopez MD Abdomen X-Ray 08/24/16 0000 Signed Impressions: Service Date/Time: Wednesday, August 24, 2016 17:19 - CONCLUSION: 1. Small bowel dilatation which reflect ileus or obstruction. Followup examination is recommended if clinically indicated. Gareth Escalante MD Objective Remarks GENERAL: 71-year-old male, critically ill, debilitated on nonrebreather mask SKIN: Warm and dry. No rash HEAD: Atraumatic. Normocephalic. ENT: No nasal bleeding or discharge. NECK: Trachea midline. Left IJ clean dry and intact CARDIOVASCULAR: Tachycardic, RR. S1, S2. No S4. Without murmur. No JVD. RESPIRATORY: VDRF, scattered rhonchi, no wheezing. Breath sounds equal bilaterally. GASTROINTESTINAL: Soft, no guarding. Ventral hernia is reducible. Hypoactive bowel sounds. MUSCULOSKELETAL: Extremities with 1+ upper and lower extremity peripheral edema. Well perfused. NEUROLOGICAL: Cranial nerves II through XII grossly intact. Strength is equal/ and symmetrical bilaterally. Normal sensation Urinary Catheter: Yes Assessment to: Continue Hammond insert reason: Prolonged Immobilization Vascular Central Line Catheter: Yes Assessment to: Continue Date of Insertion: Aug 26, 2016 Line: Central Venous Catheter Side: Left Location: Internal, Jugular A/P Assessment and Plan Neuro/Psych: Status post CPR 15 minutes - possible anoxic encephalopathy Depression NOS Follow neuro status. Propofol for sedation, daily sedation vacation Goal of RASS -2. Concern for anoxic encephalopathy following cardiac arrest. EEG 08/25 revealed mild to moderate encephalopathy. No epileptiform activity. MRI brain 08/27 revealed no acute findings. Holding trazodone 50 mg at night for depression Cardiovascular: Cardiac arrest status post CPR Elevated troponin History dyslipidemia History of hypertension PVD Systemic shock likely secondary to sepsis/aspiration/small bowel obstruction Possible femoral pseudoaneurysm Off all vasopressors Currently D5W with 20 equivalents KCl at 30 cc an hour. Continue diuresis with Lasix given one dose today Continue Cardizem at 30 mg 4 times a day since blood pressures normalized. Not on any lipid-lowering agents at home. Cardiac arrest status post CPR. s/p aggressive fluid resuscitation. 5 units PRBCs transfused to date minimal troponin elevation following cardiac arrest noted. Echo 2D revealed EF 35-40%. Moderate LVH. Mitral valve calcified. Mild TR. Pulmonary: Acute respiratory failure secondary to aspiration pneumonia End-stage COPD. Oxygen dependent FEV1 28%, FVC 1.6. Currently a nonrebreather mask Duo nebs every 4 hours and as needed, At home on Symbicort 160/4.5 twice a day and duo nebs 4 times a day Switched to Pulmicort twice a day Currently on Solu-Medrol 40 mEq IV every 8 hours. Wean Titrate FiO2 down provided O2 sat greater than 90%. CT chest revealed small pleural effusions bilaterally with likely aspiration VQ scan low probability Diurese with Lasix. As needed Chest x-ray today reveals likely left-sided mucous plugging. High risk for reintubation. \\ GI. Small bowel obstruction - resolved Upper GI bleed plus esophageal rule out aorto esophageal fistula History of Ashley esophagitis History of colonic polyps History of ventral hernia status post repair last by Dr. Roberts CT abdomen/pelvis revealed possible small bowel obstruction at level of ventral hernia. Severe aortoiliac disease. Dr. roberts/general surgery evaluated. Very poor surgical candidate this time. EGD 08/25 revealed esophageal nipple. Clots noted within the gastric contents without active bleeding. Recommended CTA rule out aorto esophageal fistula however cannot perform due to elevated creatinine. Hemoglobin appears stable. Gilles if continues upper GI bleed Speech therapy to evaluation for swallowing Protonix for GI prophylaxis EGD revealed 25 cm proximal esophagus with possible bleeding. Rule out aorto esophageal fistula. Renal/: Acute kidney injury History of bladder outlet obstruction IV hydration, strict intake output, monitor and replete electro lites, follow BUN creatinine. Currently holding Flomax 0.4 mg daily No hydronephrosis on CT abdomen/pelvis Negative urine eosinophils. ID: UTI Sepsis Fungemia Appreciate ID consult with worsening leukocytosis and septic shock Empiric antibiotic coverage with Zosyn to be continued. IV Diflucan started by GI for Ashley esophagitis. Started on IV micafungin 08/26 secondary to yeast in blood. Source likely femoral line Pertinent cultures 09/03 - blood culture - no growth 09/02 - blood culture - no growth 08/27 - blood from central line -Ashley 08/27 -arterial line blood - pending 08/26 - sputum -Serratia 08/25 - blood cultures 2 -Ashley 08/25 - urine -no growth 08/22 - blood cultures 2 - no growth 08/21 - urine - no growth 08/20 - blood cultures 2 - 1 out of 4 staph epi Endocrine: Chronic prednisone use secondary to COPD SSI for glycemic control as needed. Currently on Solu-Medrol 40 mg IV every 8 hours Heme: Acute blood loss anemia History of prostate cancer Leukocytosis Status post 4 units PRBCs ands 2 units FFP on 08/24. Given one unit PRBCs 08/26 Follow CBC and coags. FEN: Hypernatremia Replace electrolytes as clinically indicated Currently on D5 water with 20 mEq KCl at 30 cc an hour MSK: PT/OT evaluate and treat Access - Left IJ CVL day 10 Prophylaxis - GI -Protonix - DVT - SCD/pharmacological prophylaxis contraindicated with GI bleed Critical Care: The total critical care time was 35 minutes. Time to perform other separately billable procedures was not included in the critical care time. Jas Persaud MD Sep 06, 2016 09:47 extubation if tolerating CPAP+5 with pressure support +5 for 30 minutes on 09/05. Time spent on critical care excluding procedures 30 minutes Jas Persaud MD Sep 06, 2016 09:47
[2016-09-06] MEDS: MICAFUNGIN INJ 100 MG in SODIUM CHLORIDE 0.9% INJ 100 ML IV SCH (11:50)
[2016-09-06] MEDS: RESP: BUDESONIDE 0.5 MG/2 ML NEB NEB SCH ×2 (12:10→20:50)
[2016-09-06] MEDS: RESP: ALBUTEROL 2.5 MG/IPRATROPIUM 0.5 MG NEB (SCH) NEB ×3 (12:10→20:50)
[2016-09-06] MEDS ORDERED: ROCURONIUM INJ 100 MG/10 ML VIAL IV ONE (12:45)
[2016-09-06] MEDS ORDERED: ETOMIDATE 40 MG/20 ML VIAL IV PUSH ONE (12:45)
[2016-09-06] MEDS ORDERED: ROCURONIUM INJ 50 MG/5 ML VIAL IV ONE (13:00)
--- NOTE | 2016-09-06 13:36 | PD.PROCEDR ---
Procedure Note Procedure DATE: 09/05/2016 Fiberoptic bronchoscopy: INDICATION: Acute hypoxemia CONSENT Informed consent for procedure was obtained from family DESCRIPTION OF THE PROCEDURE The patient was placed at 30. Ventilator was using PRVC ventilation with FiO2 100%. Patient was anesthetized using propofol at 50 mcg/kg/m, and a fentanyl drip at 150 g an hour. Paralytic provider was rocuronium and 50 mg IV 1. I entered the 8.5 ET tube with fiberoptic bronchoscope. The ETT tube was coated with thick white secretions. The bronchoscope was advanced to the michele which was sharp. It was then advanced to the left mainstem and its subsegments segments, large thick white mucous plug in the left mainstem. This was suctioned with copious amounts of sterile saline. Left upper lingula and lower lobe were visualized. The mucosa was normal. This again was suctioned with copious amounts of sterile saline with thick white secretions. There is most most thick white secretions in these second and third sub segments which were all suctioned to clear with sterile saline. There were no other findings including evidence of mass, anatomic distortions or hemorrhage. Some suction trauma in the left lower lobe was cleared with lavage. The bronchoscope was subsequently withdrawn and advanced into the right mainstem. Each segment was evaluated and were well visualized. The right upper lobe anatomy was within normal limits. No specific masses or other lesions were identified throughout the tracheobronchial tree on the right. The bronchoscope was then advanced to the bronchus intermedius to the right middle and right lower lobe. No lesions were identified. Wedged in the right middle lobe and 30 cc of sterile saline lavage white mucous plugs easily. Lavaging was also performed throughout the right lower lobe. Again mucosa was normal. Scope was withdrawn and procedure was halted. Saturations remain between 98 and 100% throughout the procedure. ESTIMATED BLOOD LOSS: Minimal COMPLICATIONS: No apparent complications. Jas Persaud MD Sep 06, 2016 13:35
--- NOTE | 2016-09-06 13:46 | PD.PROCEDR ---
Procedure Note Procedure DATE: 09/06/2016 PROCEDURE: Orotracheal intubation INDICATION: Acute respiratory failure/left mucous plugging DETAILS OF PROCEDURE The patient was placed in optimal position and preoxygenated with 100% FiO2 via bag valve mask. At the start oxygen saturation was 96%. The patient was administered 50 g fentanyl IV and 20 mg etomidate IV and 50 mg rocuronium IV. I entered the oropharynx with a size 4 GVL glidescope blade and obtained a grade 3 view of the airway. On single attempt a size 8.5 cuffed endotracheal tube was passed through the vocal cords. Correct tube location was confirmed with end tidal CO2 detector and by auscultating over bilateral lung garcia. The endotracheal tube was secured with adhesive tape at a depth of 24 cm at the lips. The patient was connected to the ventilator. The patient tolerated the procedure well without any apparent complications. Oxygen saturations were maintained greater than 95% all times. STAT chest x-ray pending at time of dictation. Jas Persaud MD Sep 06, 2016 13:46
--- NOTE | 2016-09-06 14:16 | RADRPT ---
EXAM DATE/TIME: 09/06/2016 13:49 [facility] COMPARISON: CHEST SINGLE AP, September 06, 2016, 8:50. INDICATIONS : Post intubation. MEDICAL HISTORY : Chronic obstructive pulmonary disease. Emphysema. Hypertension. SURGICAL HISTORY : None. ENCOUNTER: Subsequent ACUITY: 2 weeks PAIN SCORE: Non-responsive. LOCATION: Bilateral chest FINDINGS: A single AP supine portable view of the chest was obtained and again demonstrate volume loss in the l eft hemithorax with mediastinal shift to the left. The patient is status post interval intubation wit h the endotracheal tube approximately 4 cm above the michele. A nasogastric tube has been placed and i s seen coursing through the esophagus and into the stomach. The left internal jugular central venous line remains in place. There is hazy opacity remaining in the left perihilar region and left lung bas e. The left costophrenic angle remains blunted and the hemidiaphragm is obscured. Mild patchy opacity remains at the right lung base. The heart size is within normal limits. CONCLUSION: 1. Interval intubation and placement of nasogastric tube. 2. Volume loss again noted left hemithorax with mediastinal shift. There is coarse infiltrate remaini ng in the left lung. Ian Horton MD on September 06, 2016 at 14:12 Board Certified Radiologist. This report was verified electronically.
[2016-09-06] MEDS: RESP: SODIUM CHLORIDE 3% 4 ML NEB NEB SCH ×2 (14:17→20:50)
[2016-09-06 15:43] LABS: BLOOD GAS CARBOXYHEMOGLOBIN 1.9 % (0-4); BLOOD GAS HCO3 34 mmol/L (22-26); BLOOD GAS METHEMOGLOBIN 0.9 % (0-2); BLOOD GAS O2 HGB SATURATION 89 % (90-100); BLOOD GAS OXYGEN CONTENT 10.3 Vol % (12.0-20.0); BLOOD GAS PCO2 47 mmHg (38-42); BLOOD GAS PO2 61 mmHg (61-120); BLOOD GAS TOTAL HGB 8.1 G/DL (12.0-16.0); CRITICAL VALUE YES; TEMP CORR TO 98.6
[2016-09-06 15:44] LABS: OXYGEN DEVICE VENTILATOR
[2016-09-06 15:45] LABS: DRAW SITE RT RADIAL; FIO2 60 %; NUMBER OF ARTERIAL PUNCTURES 1; STAT NO; ULNAR PULSE PRESENT
[2016-09-06] MEDS: PROPOFOL 1000 MG/100 ML INJ 100 ML IV SCH ×2 (18:28→18:29)
[2016-09-06] MEDS: fentaNYL DRIP 250 ML IV SCH (18:30)
[2016-09-06 18:37] LABS: BRONCHOALVEOLAR LAVAGE RBC 2150 /MM3; BRONCHOALVEOLAR LAVAGE WBC 1500 /MM3; BRONCHOAVEOLAR HISTIOCYTES 2 %; BRONCHOAVEOLAR LYMPHOCYTES 1 %; BRONCHOAVEOLAR NEUTROPHILS 97 %
[2016-09-06] MEDS: CHLORHEXIDINE GLUCONATE 0.12% 30 ML CUP MT SCH (20:16)
[2016-09-06] MEDS: D5W + KCL 20 MEQ INJ 1,000 ML IV SCH (20:19)
[2016-09-07] VITALS (18 sets, daily range): BP systolic 92–137; BP diastolic 64–83; PULSE 58–88; RESP 16–22; TEMP 97.2–98.8; O2SAT 95–100
[2016-09-07] MEDS: PIPERACIL-TAZO 3.375 GM PREMIX 50 ML IV SCH ×4 (02:10→22:40)
[2016-09-07] MEDS: PROPOFOL 1000 MG/100 ML INJ 100 ML IV SCH ×3 (02:10→22:42)
[2016-09-07] MEDS: RESP: ALBUTEROL 2.5 MG/IPRATROPIUM 0.5 MG NEB (SCH) NEB ×4 (03:44→19:22)
[2016-09-07] MEDS: RESP: SODIUM CHLORIDE 3% 4 ML NEB NEB SCH ×4 (03:45→19:22)
[2016-09-07] MEDS: methylPREDNISolone SOD SUCC 40 MG/1 ML VIAL IV PUSH SCH ×3 (04:32→22:40)
[2016-09-07] MEDS: CHLORHEXIDINE GLUCONATE 0.12% 30 ML CUP MT SCH ×2 (08:00→20:00)
[2016-09-07] MEDS: PANTOPRAZOLE SODIUM 40 MG VIAL IV PUSH SCH ×2 (08:42→22:40)
[2016-09-07] MEDS: FUROSEMIDE 40 MG/4 ML VIAL IV PUSH SCH (08:43)
[2016-09-07] MEDS: MULTIVITAMIN TAB PO SCH (08:43)
[2016-09-07] MEDS: hydrALAZINE HCL 20 MG/ML VIAL IV PUSH PRN (08:44)
[2016-09-07] MEDS: SODIUM CHLORIDE 0.9% FLUSH 5 ML FLUSH IVF SCH (08:45)
[2016-09-07] MEDS: DILTIAZEM HCL 30 MG TAB PO SCH ×4 (09:00→21:00)
[2016-09-07] MEDS: RESP: BUDESONIDE 0.5 MG/2 ML NEB NEB SCH ×2 (09:17→19:22)
--- NOTE | 2016-09-07 09:27 | HHI.IDPN ---
Subjective Subjective Remarks is a 71 y/o CM with COPD and oxygen dependent, Ashley esophagitis, prior h/o pneumonia. According to the since the patient was discharged he continued to have nausea and vomiting. He has not had any bowel movement, and she thinks in the last 3 weeks. Patient started having more weakness, and was getting more short of breath, so the patient presented back to the hospital and was admitted August 20. He was admitted as a COPD exacerbation and pneumonia. He was put on empiric antibiotics. Patient had in hospital cardiorespiratory arrest. He was successfully resuscitated, and intubated. Patient had an A- line in arm, CL in groin which was changed on 08/27/16. 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 Patient continues to have elevated WBC, and is being treated for sepsis secondary to aspiration PNA, Fungemia likely line related (groin line likely now DCed). Notes reviewed Reintubated yesterday Had bronch yesterday for collapse L with shift Follow-up CXR same and no change WBC higher CRISTHIAN negative Last (+) BC 08/27 with C glabrata First (+) BC with C albicans and C glabrata Follow up BC negative Has pseudoaneurysm R femoral artery Sputum with Serratia Antibiotics Zosyn IV (aspiration PNA) IV Micafungin (for fungal line infection) Lines L I J central line Past Medical History Hypertension COPD O2 dependent prostate cancer Bladder outlet obstruction Hyperlipidemia Past Surgical History Ventral hernia Appendectomy Perforated gastric ulcer surgery Cataract Upper and lower endoscopy Allergies: Coded Allergies: *MDRO Multi-Drug Resistant Organism (Verified Adverse Reaction, Unknown, ) MRSA (abdominal wound) 2015 per 04/10/2015 H&P MRSA PCR Screen #1 NEGATIVE - 08/21/16 Objective . Vital Signs Date Time Temp Pulse Resp B/P Pulse Ox O2 Delivery O2 Flow Rate FiO2 09/07/16 06:00 67 09/07/16 04:07 95 40 09/07/16 04:00 40 09/07/16 04:00 71 09/07/16 04:00 98.8 71 16 119/81 96 09/07/16 02:00 63 09/07/16 00:00 50 09/07/16 00:00 98.5 63 16 132/73 99 09/07/16 00:00 63 09/06/16 23:38 97 50 09/06/16 22:00 67 09/06/16 20:56 100 50 09/06/16 20:00 98.7 67 16 124/71 96 09/06/16 20:00 64 09/06/16 20:00 50 09/06/16 18:00 66 09/06/16 16:00 75 09/06/16 16:00 89 09/06/16 16:00 98.6 67 16 102/62 98 09/06/16 14:00 98.8 82 16 98/62 98 09/06/16 14:00 100 09/06/16 13:26 100 100 09/06/16 13:23 100 100 09/06/16 13:00 50 09/06/16 12:13 94 Non-Rebreather 12.00 09/06/16 12:00 104 09/06/16 10:00 104 09/06/16 09/06/16 09/07/16 15:00 23:00 07:00 Intake Total 325 ml 535 ml 412 ml Output Total 1600 ml 700 ml 500 ml Balance -1275 ml -165 ml -88 ml Intake Oral 100 ml 0 ml 0 ml IV Total 225 ml 475 ml 412 ml Tube Irrigant 60 ml Output Urine Total 1600 ml 700 ml 500 ml # Bowel Movements 1 1 . Laboratory Tests Test 09/06/16 06:00 White Blood Count 14.0 TH/MM3 Red Blood Count 2.88 MIL/MM3 Hemoglobin 8.7 GM/DL Hematocrit 26.1 % Mean Corpuscular Volume 90.8 FL Mean Corpuscular Hemoglobin 30.2 PG Mean Corpuscular Hemoglobin 33.3 % Concent Red Cell Distribution Width 17.0 % Platelet Count 166 TH/MM3 Mean Platelet Volume 10.1 FL Neutrophils (%) (Auto) 92.6 % Lymphocytes (%) (Auto) 2.2 % Monocytes (%) (Auto) 5.0 % Eosinophils (%) (Auto) 0.0 % Basophils (%) (Auto) 0.2 % Neutrophils # (Auto) 13.0 TH/MM3 Lymphocytes # (Auto) 0.3 TH/MM3 Monocytes # (Auto) 0.7 TH/MM3 Eosinophils # (Auto) 0.0 TH/MM3 Basophils # (Auto) 0.0 TH/MM3 CBC Comment AUTO DIFF Differential Total Cells 100 Counted Neutrophils % (Manual) 73 % Band Neutrophils % 16 % Lymphocytes % 3 % Monocytes % 6 % Neutrophils # (Manual) 12.7 TH/MM3 Metamyelocytes 1 % Myelocytes 1 % Differential Comment FINAL DIFF MANUAL Platelet Estimate NORMAL Platelet Morphology Comment ENLARGED Helmet Cells OCC Acanthocytes OCC Laboratory Tests Test 09/06/16 06:00 Sodium Level 150 MEQ/L Potassium Level 3.6 MEQ/L Chloride Level 105 MEQ/L Carbon Dioxide Level 35.5 MEQ/L Anion Gap 10 MEQ/L Blood Urea Nitrogen 26 MG/DL Creatinine 1.09 MG/DL Estimat Glomerular Filtration 67 ML/MIN Rate Random Glucose 166 MG/DL Calcium Level 8.1 MG/DL Total Bilirubin 0.8 MG/DL Aspartate Amino Transf 29 U/L (AST/SGOT) Alanine Aminotransferase 44 U/L (ALT/SGPT) Alkaline Phosphatase 159 U/L Total Protein 6.0 GM/DL Albumin 1.9 GM/DL Microbiology Date/Time Procedure Status Source Growth 09/06/16 14:00 Gram Stain Received Bronchial Washings Right Mid Lobe Pending 09/06/16 14:00 Bronchial Culture Received Bronchial Washings Right Mid Lobe Pending 09/06/16 14:00 Acid Fast Stain Received Bronchial Washings Right Mid Lobe Pending 09/06/16 14:00 Mycobacterial Culture Received Bronchial Washings Right Mid Lobe Pending 09/06/16 14:00 Fungal Smear Received Bronchial Washings Right Mid Lobe Pending 09/06/16 14:00 Fungal Culture Received Bronchial Washings Right Mid Lobe Pending Imaging Chest X-Ray 09/06/16 0000 Signed Impressions: Service Date/Time: Tuesday, September 06, 2016 13:49 - CONCLUSION: 1. Interval intubation and placement of nasogastric tube. 2. Volume loss again noted left hemithorax with mediastinal shift. There is coarse infiltrate remaining in the left lung. Ian Horton MD Chest X-Ray 09/06/16 0000 Signed Impressions: Service Date/Time: Tuesday, September 06, 2016 08:50 - CONCLUSION: 1. Increasing density throughout the left hemithorax with volume loss suggesting mucus plugging. Eduardo Mcconnell MD Chest X-Ray 09/05/16 0500 Signed Impressions: Service Date/Time: Monday, September 05, 2016 03:49 - CONCLUSION: 1. Basilar airspace disease similar to prior exam. Support apparatus unchanged. Eleazar Jimenez MD Chest X-Ray 09/05/16 0500 Signed Impressions: Service Date/Time: Monday, September 05, 2016 03:49 - CONCLUSION: 1. Basilar airspace disease similar to prior exam. Support apparatus unchanged. Eleazar Jimenez MD Chest X-Ray 09/01/16 0600 Signed Impressions: Service Date/Time: Thursday, September 01, 2016 03:19 - CONCLUSION: No significant interval change in bilateral pulmonary parenchymal opacity and small bilateral pleural effusions. 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 There is concentric mural thrombus. This aneurysm is not amenable to thrombin injection. Polo Moore Jr., MD Chest X-Ray 08/27/16 06 Signed Impressions: Service Date/Time: August 02:27 - CONCLUSION: 1. Patchy bilateral airspace disease with improving aeration/decreasing effusions in the bases bilaterally. 2. Stable position of life support tubes. Con Valdes MD Chest X-Ray 08/26/16 075 Signed Impressions: Service Date/Time: Friday, August 26, 2016 08:14 - CONCLUSION: Left IJ central line distal tip in the SVC. No pneumothorax is visualized. There is a stable appearance the lungs with bilateral airspace consolidation. Lex Malik MD Chest X-Ray 08/26/16 06 Signed Impressions: Service Date/Time: Friday, August 26, 2016 04:01 - CONCLUSION: 1. Worsening bibasilar effusions/atelectasis with diffuse interstitial edema, all characteristic of CHF. 2. Endotracheal tube remains appropriately positioned above the michele Con Valdes MD Chest X-Ray 08/26/16 075 Signed Impressions: Service Date/Time: Friday, August 26, 2016 08:14 - CONCLUSION: Left IJ central line distal tip in the SVC. No pneumothorax is visualized. There is a stable appearance the lungs with bilateral airspace consolidation. Lex Malik MD Renal Ultrasound 08/25/16 0000 Signed Impressions: Service Date/Time: Wednesday, August 24, 2016 21:53 - CONCLUSION: 1. There is no hydronephrosis. Both kidneys demonstrate mild increased echotexture of the parenchyma suggesting medical renal disease. 2. Trace perihepatic free fluid and bilateral pleural effusions. Lex Malik MD Chest CT 08/25/16 0000 Signed Impressions: Service Date/Time: Thursday, August 25, 2016 21:20 - CONCLUSION: 1. Bilateral pneumonia and aspiration would be in the differential. There is dependent consolidation/atelectasis and small effusions of the bases as well. 2. Upper limits of normal to mildly enlarged mediastinal lymph nodes, most likely reactive. 3. Coronary artery calcification. 4. Right rib fractures, including acute fractures laterally of the third, fourth and fifth. There are old, healed fractures anteriorly of the right second and third ribs.. Lex Lopez MD Abdomen/Pelvis CT 08/25/16 0000 Signed Impressions: Service Date/Time: Thursday, August 25, 2016 20:20 - CONCLUSION: 1. Ventral hernia containing small bowel and with associated small bowel obstruction. The defect is broad; I believe the obstruction is probably related to scarring and/or adhesions within the hernia sac. I don't see a mass. 2. Distended stomach despite NG tube present. 3. Severe aortoiliac atherosclerosis. No aneurysm. Lex Lopez MD Abdomen X-Ray 08/24/16 0000 Signed Impressions: Service Date/Time: Wednesday, August 24, 2016 17:19 - CONCLUSION: 1. Small bowel dilatation which reflect ileus or obstruction. Followup examination is recommended if clinically indicated. Gareth Escalante MD Physical Exam GENERAL: awake, on vent, restless SKIN: Warm and dry. No generalized rash HEENT: Pale conjunctivae, no petechia or hemorrhage. No scleral icterus. . Has endotracheal tube in the mouth. NECK: Trachea midline. No JVD or lymphadenopathy. Supple. LIJ TLC looks ok CARDIOVASCULAR: Regular rate and rhythm without murmurs, gallops, or rubs. RESPIRATORY: Decreased breath sounds L ABDOMEN: Has hernia. Has midline scar. Bowel sounds are hypoactive, no guarding. No redness or tenderness noted in R groin MUSCULOSKELETAL: Extremities without clubbing, cyanosis. Edema better NEUROLOGICAL: Awake, non-focal PSYCH: Cooperative LINE: LIJ TLC no evidence of infection. Assessment & Plan Remarks IMPRESSION Sepsis present on admission and then sepsis again. Central line associated blood stream infection (CLABSI) related fungemia ( likely groin line) now discontinued. Arterial line discontinued as well. 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 Recurrent respiratory failure, due to mucus plugging - S/P bronch Diarrhea ? Cdiff vs antibiotic associated. Status post cardiorespiratory arrest, likely aspirated Findings SBO within the hernia on CT A/P, clinically better Acute respiratory failure, extubated 09/05 - reintubated 09/06 GI bleed, stable Leukocytosis, up again, reactive due to resp decompensation COPD, oxygen dependent Previous GI bleed with workup showing gastritis, Ashley esophagitis, and polyps Large incisional ventral hernia Bladder outlet obstruction, currently has a Hammond Renal insufficiency RECOMMENDATION Continue Micafungin IV (C.glabrata fungemia) Continue Zosyn IV for now Follow cultures Monitor progress Has possible pseudoaneurysm at site of femoral line, and will likely treat for 4 weeks with antifungal. Nuha Fernandez MD Sep 07, 2016 09:27
--- NOTE | 2016-09-07 10:32 | HHI.CCPN ---
Subjective Remarks/Hospital Course 08/24: 71 Year-old male with a medical history significant for COPD on home oxygen who was recently admitted with suspected sepsis/H And was initiated on IV antibiotics and steroids. He had recently been evaluated by GI and underwent EGD on 08/10/2016 and was found to have moderate esophagitis, mild gastritis with pathology subsequently showing Ashley esophagitis as well as colonoscopy on 08/11/2016 with polypectomy and ablation of polyp in ascending colon with hot snare. Patient has been dealing with constipation since his admission. Today when he was trying to have a bowel movement he suddenly became less responsive and then had a large emesis which resulted in aspiration and hemodynamic collapse. Patient initially had large volume emesis with dark maroon blood. CODE BLUE cardiac arrest code was activated. On my arrival patient was in bed CPR had been initiated. Significant gastric contents was still being suctioned out of his oral cavity. ACLS protocol was continued. Patient was intubated following vigorous suctioning of gastric contents from oral cavity as well as with placement of NG tube which is hooked up to suction and about 1.5 L of gastric contents being suctioned out which appeared to be dark maroon in color. Patient initially had a pulse when CODE BLUE was called and subsequently went in PEA arrest followed by asystole during ACLS and then V. fib for which he was defibrillated with 200 J 1, CPR/ACLS protocol was continued and patient eventually had return of spontaneous circulation after about 15 minutes of CPR/ACLS. Patient was transferred to [facility] and placed on mechanical ventilation. I emergently placed left femoral central line for central vascular access and he was started on Levophed for pressor support. 2 units of O- 1 crossmatch blood were ordered and transfused stat. He also received 1 L of normal saline bolus following return of spontaneous circulation. Stat labs were ordered. His hemoglobin on ABG done post resuscitation was 5.6. I did order Protonix 80 mg IV stat followed by 8 mg per hour IV infusion. Patient remained encephalopathic though was minimally responsive following transfer to the ICU. GI consult was requested and I spoke with Dr. Zamarripa at bedside on his arrival. History was obtained by reviewing records, discussion with family/ GI as well as nursing staff. According to patient's daughter he has not been doing well for the last few months in terms of his breathing and has been using his home oxygen more often. He gets extremely short of breath even with the least exertion. 08/25: Remains encephalopathic/ sedated, [facility]. Transiently off levophed last night however back to 11 mcg/min currently. Hgb up to 9.4 following 4 units PRBCs transfused last night. 08/26: Tmax 99. Some unresponsive on the ventilator. CT abdomen/pelvis less than revealed small bowel obstruction at site of ventral hernia. No further bleeding noted. Gastric output approximately 700 cc. No bowel movement. 08/27: Tmax 99.7. Currently afebrile. Positive BM overnight approximately 1 L according to RN. No blood noted. 100 cc from gastric tube overnight. Hemoglobin corrected a properly. Likely dilutional. Noted fungemia currently issue. Opens eyes to voice. 08/28: Tmax 99.1. No BMs overnight. Minimal gastric tube output. Hemoglobin stable 9.5. Opens eyes to voice. Not following commands. Appears with singultus this morning. 08/29: 20 beat run of wide complex tachycardia overnight. Noted potassium 3.2. This is been replaced. We'll recheck this afternoon. Circuit exchange yesterday. Patient tolerating pressure control ventilation much better than PRVC/AC ventilation is low probably VQ scan. Less FiO2 requirements. No BM past 24 hour. 08/30: Unable to wean ventilator. 08/31: Patient was extubated on 08/30 however became tachypneic with use of accessory muscles of respiration and required reintubation around 6:30 PM last night and was placed back on mechanical ventilation. Currently sedated, orally intubated on mechanical ventilation. Post intubation chest x-ray suggested fluid overload for which she was given Lasix 40 mg IV with good response having made about 2.5 L urine the last 7 hours. 09/01: Remains sedated, orally intubated on mechanical ventilation. Diuresing well with Lasix. Awaiting EGD in a.m. 09/02: Little progress. CXR clearing nicely. Continue diuresis, tolerate hypernatremia. 09/03: Good diuretic response. CRISTHIAN today with no valvar pathology. 09/04: Too weak to tolerate extubation. Will require trach. 09/05: Sedated, arousable, following commands. Tolerated C Pap trial for 9 hours yesterday with pressure support +10. Tolerating tube feeds. Subjective 09/06: Extubated yesterday. Chest x-ray reveals likely mucous plugging in left lung garcia. Currently on nonrebreather mask. Planning of insomnia and thick secretions that he is unable to cough up. 09/07 Patient s/p reintubation and bronch 09/06 mucous plugs in left main stem bronchus sedated with Diprivan and Fentanyl. Afebrile. For possible trach tomorrow. Objective Vital Signs Date Time Temp Pulse Resp B/P Pulse Ox O2 Delivery O2 Flow Rate FiO2 09/07/16 09:19 40 09/07/16 09:19 99 09/07/16 08:00 58 09/07/16 08:00 97.5 17 136/83 09/06/16 12:13 Non-Rebreather 12.00 Intake and Output 09/06/16 09/06/16 09/07/16 08:00 16:00 00:00 Intake Total 35 ml 325 ml 535 ml Output Total 650 ml 1600 ml 700 ml Balance -615 ml -1275 ml -165 ml Result Diagram: 09/06/16 0600 09/06/16 0600 Other Results Laboratory Tests Test 09/06/16 09/06/16 14:00 15:37 Bronchoalveolar Lavage WBC 1500 /MM3 Bronchoalveolar Lavage RBC 2150 /MM3 Bronchoalveolar Lavage 97 % Neutrophils Bronchoalveolar Lavage 1 % Lymphocytes Bronchoalveolar Lavage 2 % Histiocytes Lavage Fluid Total Volume 28.0 ML Lavage Fluid Total WBC Count 42.0 MILLION Blood Gas Puncture Site RT RADIAL Blood Gas Patient Temperature 98.6 Blood Gas HCO3 34 mmol/L Blood Gas Base Excess 10.0 mmol/L Blood Gas Oxygen Saturation 89 % Arterial Blood pH 7.48 Arterial Blood Partial 47 mmHg Pressure CO2 Arterial Blood Partial 61 mmHg Pressure O2 Arterial Blood Oxygen Content 10.3 Vol % Arterial Blood 1.9 % Carboxyhemoglobin Arterial Blood Methemoglobin 0.9 % Blood Gas Hemoglobin 8.1 G/DL Oxygen Delivery Device VENTILATOR Blood Gas Ventilator Setting Blood Gas Inspired Oxygen 60 % Imaging Last Impressions Chest X-Ray 09/06/16 0000 Signed Impressions: Service Date/Time: Tuesday, September 06, 2016 13:49 - CONCLUSION: 1. Interval intubation and placement of nasogastric tube. 2. Volume loss again noted left hemithorax with mediastinal shift. There is coarse infiltrate remaining in the left lung. 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 There is concentric mural thrombus. This aneurysm is not amenable to thrombin injection. Polo Moore Jr., MD Lung Scan-VQ Nuclear Medicine 08/29/16 Signed Impressions: Service Date/Time: Monday, August 29, 2016 10:20 - CONCLUSION: Low probability for pulmonary embolus. Lex Lopez MD Brain MRI 08/27/16 Signed Impressions: Service Date/Time: August 15:13 - CONCLUSION: No evidence of acute infarct, hemorrhage, mass or edema. No findings to suggest significant anoxic injury. Kit Power MD Renal Ultrasound 08/25/16 Signed Impressions: Service Date/Time: Wednesday, August 24, 2016 21:53 - CONCLUSION: 1. There is no hydronephrosis. Both kidneys demonstrate mild increased echotexture of the parenchyma suggesting medical renal disease. 2. Trace perihepatic free fluid and bilateral pleural effusions. Lex Malik MD Chest CT 08/25/16 Signed Impressions: Service Date/Time: Thursday, August 25, 2016 21:20 - CONCLUSION: 1. Bilateral pneumonia and aspiration would be in the differential. There is dependent consolidation/atelectasis and small effusions of the bases as well. 2. Upper limits of normal to mildly enlarged mediastinal lymph nodes, most likely reactive. 3. Coronary artery calcification. 4. Right rib fractures, including acute fractures laterally of the third, fourth and fifth. There are old, healed fractures anteriorly of the right second and third ribs.. Lex Lopez MD Abdomen/Pelvis CT 08/25/16 Signed Impressions: Service Date/Time: Thursday, August 25, 2016 20:20 - CONCLUSION: 1. Ventral hernia containing small bowel and with associated small bowel obstruction. The defect is broad; I believe the obstruction is probably related to scarring and/or adhesions within the hernia sac. I don't see a mass. 2. Distended stomach despite NG tube present. 3. Severe aortoiliac atherosclerosis. No aneurysm. Lex Lopez MD Abdomen X-Ray 08/24/16 Signed Impressions: Service Date/Time: Wednesday, August 24, 2016 17:19 - CONCLUSION: 1. Small bowel dilatation which reflect ileus or obstruction. Followup examination is recommended if clinically indicated. Gareth Escalante MD Objective Remarks GENERAL: Patient is 71 yo reintubated and sedated. SKIN: Warm and dry. HEAD: Normocephalic. EYES: No scleral icterus. No injection or drainage. NECK: Supple, trachea midline. No JVD or lymphadenopathy. Orally intubated CARDIOVASCULAR: Regular rate and rhythm without murmurs, gallops, or rubs. RESPIRATORY: Breath sounds equal bilaterally. No accessory muscle use. GASTROINTESTINAL: Abdomen soft, non-tender, nondistended. MUSCULOSKELETAL: No cyanosis, +1 edema. Neuro: Sedated and intubated Date of Insertion: Aug 26, 2016 Line: Central Venous Catheter Side: Left Location: Internal, Jugular A/P Assessment and Plan Neuro/Psych: Status post CPR 15 minutes - possible anoxic encephalopathy Depression NOS Monitor neuro status. On Propofol/Fentanyl infusion for sedation, daily sedation vacation Goal of RASS -2. EEG 08/25 revealed mild to moderate encephalopathy. No epileptiform activity. MRI brain 08/27 revealed no acute findings. Cardiovascular: Cardiac arrest status post CPR Elevated troponin History dyslipidemia History of hypertension PVD Systemic shock likely secondary to sepsis/aspiration/small bowel obstruction Possible femoral pseudoaneurysm Monitor HR and BP keep MAP>65mmHg Continue Cardizem 30mg QID Cardiac arrest status post CPR. s/p aggressive fluid resuscitation. 5 units PRBCs transfused to date minimal troponin elevation following cardiac arrest noted. Echo 2D revealed EF 35-40%. Moderate LVH. Mitral valve calcified. Mild TR. Pulmonary: Acute respiratory failure secondary to aspiration pneumonia- Reintubated 09/06 End-stage COPD. Oxygen dependent FEV1 28%, FVC 1.6. s/p reintubation and bronch 09/06 mucous plugs in left main stem bronchus Continue with vent support keep sat >92% Bronchodilators, Pulmicort twice a day Solu-Medrol 40 mEq IV every [address] chest revealed small pleural effusions bilaterally with likely aspiration VQ scan low probability 08/29 ICU vent bundle, for trach tomorrow. GI. Small bowel obstruction - resolved Upper GI bleed plus esophageal rule out aorto esophageal fistula History of Ashley esophagitis History of colonic polyps History of ventral hernia status post repair last by Dr. Roberts CT abdomen/pelvis revealed possible small bowel obstruction at level of ventral hernia. Severe aortoiliac disease. Dr. roberts/general surgery evaluated. Very poor surgical candidate this time. EGD 08/25 revealed esophageal nipple. Clots noted within the gastric contents without active bleeding. Protonix for GI prophylaxis EGD revealed 25 cm proximal esophagus with possible bleeding. Rule out aorto esophageal fistula. Renal/: Acute kidney injury Hypernatremia History of bladder outlet obstruction Monitor renal function, I/O's, electrolytes replacement per protocol. d/c IVF and lasix No hydronephrosis on CT abdomen/pelvis Negative urine eosinophils. ID: UTI Sepsis Fungemia Continue abx per ID ( Zosyn, Micafungin) monitor for signs of infections ( Fever , WBC) Pertinent cultures 09/03 - blood culture - no growth 09/02 - blood culture - no growth 08/27 - blood from central line -Ashley Glabrata 08/27 -arterial line blood - pending 08/26 - sputum -Serratia 08/25 - blood cultures 2 -Ashley 08/25 - urine -no growth 08/22 - blood cultures 2 - no growth 08/21 - urine - no growth 08/20 - blood cultures 2 - 1 out of 4 staph epi Endocrine: Chronic prednisone use secondary to COPD SSI for glycemic control as needed. Currently on Solu-Medrol 40 mg IV every 8 hours Heme: Acute blood loss anemia History of prostate cancer Leukocytosis Status post 4 units PRBCs ands 2 units FFP on 08/24. Given one unit PRBCs 08/26 Monitor CBC and coags. MSK: PT/OT evaluate and treat Access - Left IJ CVL -placed 08/26 Prophylaxis - GI -Protonix - DVT - SCD/pharmacological prophylaxis contraindicated with GI bleed Check labs today Critical Care: The total critical care time was 30 minutes. Time to perform other separately billable procedures was not included in the critical care time. Cal Arias MD Sep 07, 2016 10:32
--- NOTE | 2016-09-07 10:49 | HHI.PR ---
Subjective Subjective Notes Intubated/Sedated Eyes open Objective Vitals/I&O Vital Signs Date Time Temp Pulse Resp B/P Pulse Ox O2 Delivery O2 Flow Rate FiO2 09/07/16 10:00 88 09/07/16 09:19 40 09/07/16 09:19 99 09/07/16 08:00 97.5 17 136/83 09/06/16 12:13 Non-Rebreather 12.00 Labs Laboratory Tests Test 09/06/16 09/06/16 14:00 15:37 Bronchoalveolar Lavage WBC 1500 Bronchoalveolar Lavage RBC 2150 Bronchoalveolar Lavage 97 Neutrophils Bronchoalveolar Lavage 1 Lymphocytes Bronchoalveolar Lavage 2 Histiocytes Lavage Fluid Total Volume 28.0 Lavage Fluid Total WBC Count 42.0 Blood Gas Puncture Site RT RADIAL Blood Gas Patient Temperature 98.6 Blood Gas HCO3 34 Blood Gas Base Excess 10.0 Blood Gas Oxygen Saturation 89 Arterial Blood pH 7.48 Arterial Blood Partial 47 Pressure CO2 Arterial Blood Partial 61 Pressure O2 Arterial Blood Oxygen Content 10.3 Arterial Blood 1.9 Carboxyhemoglobin Arterial Blood Methemoglobin 0.9 Blood Gas Hemoglobin 8.1 Oxygen Delivery Device VENTILATOR Blood Gas Ventilator Setting Blood Gas Inspired Oxygen 60 Date/Time Procedure Status Source Growth 09/06/16 14:00 Gram Stain - Final Resulted Bronchial Washings Right Mid Lobe 09/06/16 14:00 Bronchial Culture Resulted Bronchial Washings Right Mid Lobe Pending 09/06/16 14:00 Fungal Smear Received Bronchial Washings Right Mid Lobe Pending 09/06/16 14:00 Fungal Culture Received Bronchial Washings Right Mid Lobe Pending 09/06/16 14:00 Acid Fast Stain Received Bronchial Washings Right Mid Lobe Pending 09/06/16 14:00 Mycobacterial Culture Received Bronchial Washings Right Mid Lobe Pending 09/03/16 03:48 Aerobic Blood Culture - Preliminary Resulted Blood Peripheral NO GROWTH IN 3 DAYS 09/03/16 03:48 Anaerobic Blood Culture - Preliminary Resulted Blood Peripheral NO GROWTH IN 3 DAYS Cardiovascular: Regular Lungs: Clear Abdomen: Non-distended, Non-tender Extremities: No edema A/P Assessment and Plan 71 year old male s/p cardiac arrest with SBO versus ileus; patient known to Dr. Diaz for large ventral hernia -+BM -PLan for bedside trach placement tomorrow afternoon with Dr. Diaz -Discussed with Dr. Sanders I certify and attest that I personally examined this patient with Ms. Meza who documented our visit in the EMR and entered orders under my direct supervision. I reviewed the care plan with the nursing staff and family if present. TANESHA DIAZ MD FACS Olivia Meza Sep 07, 2016 10:49 Tanesha Diaz MD Sep 09, 2016 14:36
[2016-09-07 11:25] LABS: AUTOMATED NEUTROPHIL # 5.7 TH/MM3 (1.8-7.7); BASOPHIL % 0.2 % (0.0-2.0); HEMATOCRIT 26.7 % (39.0-51.0); LYMPH % 3.7 % (9.0-44.0); LYMPHOCYTE # 0.2 TH/MM3 (1.0-4.8); MEAN CELL VOLUME 90.5 FL (80.0-100.0); MEAN CORPUSCULAR HEMOGLOBIN 30.6 PG (27.0-34.0); MEAN CORPUSCULAR HGB CONC 33.8 % (32.0-36.0); MONO % 3.5 % (0.0-8.0); NEUT % 92.6 % (16.0-70.0); PLATELET COUNT 146 TH/MM3 (150-450); RED BLOOD COUNT 2.95 MIL/MM3 (4.50-5.90); WHITE BLOOD COUNT 6.2 TH/MM3 (4.0-11.0)
[2016-09-07 11:27] LABS: HEMO FLAGS AUTO DIFF
[2016-09-07 11:35] LABS: PROTHROMBIN TIME - PATIENT 11.5 SEC (9.8-11.6)
[2016-09-07 11:43] LABS: ANION GAP 9 MEQ/L (5-15); AST (GOT) 24 U/L (15-37); BICARBONATE 35.3 MEQ/L (21.0-32.0); BLOOD UREA NITROGEN 31 MG/DL (7-18); CHLORIDE 103 MEQ/L (98-107); GLOMERULAR FILTRATION RATE 63 ML/MIN (>89); MAGNESIUM 1.4 MG/DL (1.5-2.5); POTASSIUM 3.2 MEQ/L (3.5-5.1); SODIUM (NA) 147 MEQ/L (136-145)
[2016-09-07 11:46] LABS: ALKALINE PHOSPHATASE 163 U/L (45-117); ALT (GPT) 39 U/L (12-78); TOTAL BILIRUBIN ADULT 0.9 MG/DL (0.2-1.0)
[2016-09-07 12:01] LABS: BANDS 4 % (0-6); MYELOCYTES 1 % (0-0); NEUTROPHIL # MANUAL DIFF 5.7 TH/MM3 (1.8-7.7); PLATELET ESTIMATE SMEAR LOW (NORMAL); PLATELET MORPHOLOGY NORMAL (NORMAL); POLYS (SEG NEUTROPHILS) 87 % (16-70); SCAN/DIFF FINAL DIFF MANUAL; WBC DIFF SAMPLE 100
[2016-09-07 12:02] LABS: HELMET CELLS OCC (NORMAL)
[2016-09-07] MEDS: MICAFUNGIN INJ 100 MG in SODIUM CHLORIDE 0.9% INJ 100 ML IV SCH (12:16)
[2016-09-07] MEDS: fentaNYL DRIP 250 ML IV SCH (12:18)
[2016-09-07] MEDS: POTASSIUM CHLOR 40 MEQ PREMIX 100 ML IV PRN ×2 (12:57→15:03)
[2016-09-07] MEDS ORDERED: MISC INFORMATION OTHER ONE (16:15)
[2016-09-08] VITALS (19 sets, daily range): BP systolic 100–142; BP diastolic 55–81; PULSE 58–98; RESP 16–23; TEMP 97.1–98.2; O2SAT 93–100
[2016-09-08] MEDS: PIPERACIL-TAZO 3.375 GM PREMIX 50 ML IV SCH ×4 (02:39→21:41)
[2016-09-08] MEDS: RESP: SODIUM CHLORIDE 3% 4 ML NEB NEB SCH ×2 (03:28→08:40)
[2016-09-08] MEDS: RESP: ALBUTEROL 2.5 MG/IPRATROPIUM 0.5 MG NEB (SCH) NEB ×4 (03:28→20:37)
[2016-09-08] MEDS: methylPREDNISolone SOD SUCC 40 MG/1 ML VIAL IV PUSH SCH ×2 (04:41→15:44)
[2016-09-08 05:24] LABS: AUTOMATED NEUTROPHIL # 5.5 TH/MM3 (1.8-7.7); BASOPHIL % 0.1 % (0.0-2.0); HEMATOCRIT 26.7 % (39.0-51.0); HEMO FLAGS DIFF FINAL; LYMPH % 5.4 % (9.0-44.0); LYMPHOCYTE # 0.3 TH/MM3 (1.0-4.8); MEAN CELL VOLUME 90.7 FL (80.0-100.0); MEAN CORPUSCULAR HEMOGLOBIN 30.6 PG (27.0-34.0); MEAN CORPUSCULAR HGB CONC 33.8 % (32.0-36.0); MONO % 5.4 % (0.0-8.0); NEUT % 89.1 % (16.0-70.0); PLATELET COUNT 150 TH/MM3 (150-450); RED BLOOD COUNT 2.94 MIL/MM3 (4.50-5.90); RED CELL DISTRIBUTION WIDTH 17.7 % (11.6-17.2); WHITE BLOOD COUNT 6.2 TH/MM3 (4.0-11.0)
[2016-09-08 05:46] LABS: BICARBONATE 31.9 MEQ/L (21.0-32.0); POTASSIUM 3.4 MEQ/L (3.5-5.1)
[2016-09-08] MEDS: POTASSIUM CHLOR 40 MEQ PREMIX 100 ML IV PRN ×2 (07:24→21:40)
[2016-09-08] MEDS: fentaNYL DRIP 250 ML IV SCH (07:56)
[2016-09-08] MEDS: CHLORHEXIDINE GLUCONATE 0.12% 30 ML CUP MT SCH ×2 (08:00→20:00)
[2016-09-08] MEDS: PANTOPRAZOLE SODIUM 40 MG VIAL IV PUSH SCH ×2 (08:00→21:42)
[2016-09-08] MEDS: MULTIVITAMIN TAB PO SCH (08:00)
[2016-09-08] MEDS: DILTIAZEM HCL 30 MG TAB PO SCH ×4 (08:01→21:00)
[2016-09-08] MEDS: RESP: BUDESONIDE 0.5 MG/2 ML NEB NEB SCH ×2 (08:40→20:37)
[2016-09-08] MEDS: SODIUM CHLORIDE 0.9% FLUSH 5 ML FLUSH IVF SCH (08:41)
[2016-09-08] MEDS: COLLAGENASE OINT 30 GM TUBE TOP SCH (09:00)
[2016-09-08] MEDS ORDERED: GLUCAGON 1 MG/ML VIAL OTHER PRN (09:15)
[2016-09-08] MEDS ORDERED: DEXTROSE 50% IN WATER 50 ML VIAL(D50) IV PUSH PRN (09:15)
--- NOTE | 2016-09-08 09:19 | HHI.CCPN ---
Subjective Remarks/Hospital Course 08/24: 71 Year-old male with a medical history significant for COPD on home oxygen who was recently admitted with suspected sepsis/H And was initiated on IV antibiotics and steroids. He had recently been evaluated by GI and underwent EGD on 08/10/2016 and was found to have moderate esophagitis, mild gastritis with pathology subsequently showing Ashley esophagitis as well as colonoscopy on 08/11/2016 with polypectomy and ablation of polyp in ascending colon with hot snare. Patient has been dealing with constipation since his admission. Today when he was trying to have a bowel movement he suddenly became less responsive and then had a large emesis which resulted in aspiration and hemodynamic collapse. Patient initially had large volume emesis with dark maroon blood. CODE BLUE cardiac arrest code was activated. On my arrival patient was in bed CPR had been initiated. Significant gastric contents was still being suctioned out of his oral cavity. ACLS protocol was continued. Patient was intubated following vigorous suctioning of gastric contents from oral cavity as well as with placement of NG tube which is hooked up to suction and about 1.5 L of gastric contents being suctioned out which appeared to be dark maroon in color. Patient initially had a pulse when CODE BLUE was called and subsequently went in PEA arrest followed by asystole during ACLS and then V. fib for which he was defibrillated with 200 J 1, CPR/ACLS protocol was continued and patient eventually had return of spontaneous circulation after about 15 minutes of CPR/ACLS. Patient was transferred to [facility] and placed on mechanical ventilation. I emergently placed left femoral central line for central vascular access and he was started on Levophed for pressor support. 2 units of O- 1 crossmatch blood were ordered and transfused stat. He also received 1 L of normal saline bolus following return of spontaneous circulation. Stat labs were ordered. His hemoglobin on ABG done post resuscitation was 5.6. I did order Protonix 80 mg IV stat followed by 8 mg per hour IV infusion. Patient remained encephalopathic though was minimally responsive following transfer to the ICU. GI consult was requested and I spoke with Dr. Zamarripa at bedside on his arrival. History was obtained by reviewing records, discussion with family/ GI as well as nursing staff. According to patient's daughter he has not been doing well for the last few months in terms of his breathing and has been using his home oxygen more often. He gets extremely short of breath even with the least exertion. 08/25: Remains encephalopathic/ sedated, [facility]. Transiently off levophed last night however back to 11 mcg/min currently. Hgb up to 9.4 following 4 units PRBCs transfused last night. 08/26: Tmax 99. Some unresponsive on the ventilator. CT abdomen/pelvis less than revealed small bowel obstruction at site of ventral hernia. No further bleeding noted. Gastric output approximately 700 cc. No bowel movement. 08/27: Tmax 99.7. Currently afebrile. Positive BM overnight approximately 1 L according to RN. No blood noted. 100 cc from gastric tube overnight. Hemoglobin corrected a properly. Likely dilutional. Noted fungemia currently issue. Opens eyes to voice. 08/28: Tmax 99.1. No BMs overnight. Minimal gastric tube output. Hemoglobin stable 9.5. Opens eyes to voice. Not following commands. Appears with singultus this morning. 08/29: 20 beat run of wide complex tachycardia overnight. Noted potassium 3.2. This is been replaced. We'll recheck this afternoon. Circuit exchange yesterday. Patient tolerating pressure control ventilation much better than PRVC/AC ventilation is low probably VQ scan. Less FiO2 requirements. No BM past 24 hour. 08/30: Unable to wean ventilator. 08/31: Patient was extubated on 08/30 however became tachypneic with use of accessory muscles of respiration and required reintubation around 6:30 PM last night and was placed back on mechanical ventilation. Currently sedated, orally intubated on mechanical ventilation. Post intubation chest x-ray suggested fluid overload for which she was given Lasix 40 mg IV with good response having made about 2.5 L urine the last 7 hours. 09/01: Remains sedated, orally intubated on mechanical ventilation. Diuresing well with Lasix. Awaiting EGD in a.m. 09/02: Little progress. CXR clearing nicely. Continue diuresis, tolerate hypernatremia. 09/03: Good diuretic response. CRISTHIAN today with no valvar pathology. 09/04: Too weak to tolerate extubation. Will require trach. 09/05: Sedated, arousable, following commands. Tolerated C Pap trial for 9 hours yesterday with pressure support +10. Tolerating tube feeds. Subjective 09/06: Extubated yesterday. Chest x-ray reveals likely mucous plugging in left lung garcia. Currently on nonrebreather mask. Planning of insomnia and thick secretions that he is unable to cough up. 09/07 Patient s/p reintubation and bronch 09/06 mucous plugs in left main stem bronchus sedated with Diprivan and Fentanyl. Afebrile. For possible trach tomorrow. 09/08 No acute events overnight. Sedated with Diprivan and Fentanyl. Afebrile. For trach today. Objective Vital Signs Date Time Temp Pulse Resp B/P Pulse Ox O2 Delivery O2 Flow Rate FiO2 09/08/16 08:41 95 40 09/08/16 06:00 98 09/08/16 04:00 97.6 23 126/78 09/06/16 12:13 Non-Rebreather 12.00 Intake and Output 09/07/16 09/07/16 09/08/16 08:00 16:00 00:00 Intake Total 412 ml 423 ml 310 ml Output Total 500 ml 1250 ml 525 ml Balance -88 ml -827 ml -215 ml Result Diagram: 09/08/16 0435 09/08/16 0435 Other Results Laboratory Tests Test 09/07/16 09/08/16 09/08/16 11:00 00:35 04:35 White Blood Count 6.2 TH/MM3 6.2 TH/MM3 Red Blood Count 2.95 MIL/MM3 2.94 MIL/MM3 Hemoglobin 9.0 GM/DL 9.0 GM/DL Hematocrit 26.7 % 26.7 % Mean Corpuscular Volume 90.5 FL 90.7 FL Mean Corpuscular Hemoglobin 30.6 PG 30.6 PG Mean Corpuscular Hemoglobin 33.8 % 33.8 % Concent Red Cell Distribution Width 17.0 % 17.7 % Platelet Count 146 TH/MM3 150 TH/MM3 Mean Platelet Volume 9.9 FL 9.8 FL Neutrophils (%) (Auto) 92.6 % 89.1 % Lymphocytes (%) (Auto) 3.7 % 5.4 % Monocytes (%) (Auto) 3.5 % 5.4 % Eosinophils (%) (Auto) 0.0 % 0.0 % Basophils (%) (Auto) 0.2 % 0.1 % Neutrophils # (Auto) 5.7 TH/MM3 5.5 TH/MM3 Lymphocytes # (Auto) 0.2 TH/MM3 0.3 TH/MM3 Monocytes # (Auto) 0.2 TH/MM3 0.3 TH/MM3 Eosinophils # (Auto) 0.0 TH/MM3 0.0 TH/MM3 Basophils # (Auto) 0.0 TH/MM3 0.0 TH/MM3 CBC Comment AUTO DIFF DIFF FINAL Differential Total Cells 100 Counted Neutrophils % (Manual) 87 % Band Neutrophils % 4 % Lymphocytes % 5 % Monocytes % 3 % Neutrophils # (Manual) 5.7 TH/MM3 Myelocytes 1 % Differential Comment FINAL DIFF MANUAL Platelet Estimate LOW Platelet Morphology Comment NORMAL Helmet Cells OCC Prothrombin Time 11.5 SEC Prothromb Time International 1.0 RATIO Ratio Sodium Level 147 MEQ/L 148 MEQ/L Potassium Level 3.2 MEQ/L 3.5 MEQ/L 3.4 MEQ/L Chloride Level 103 MEQ/L 108 MEQ/L Carbon Dioxide Level 35.3 MEQ/L 31.9 MEQ/L Anion Gap 9 MEQ/L 8 MEQ/L Blood Urea Nitrogen 31 MG/DL 34 MG/DL Creatinine 1.15 MG/DL 1.06 MG/DL Estimat Glomerular Filtration 63 ML/MIN 69 ML/MIN Rate Random Glucose 174 MG/DL 171 MG/DL Calcium Level 7.9 MG/DL 8.3 MG/DL Phosphorus Level 3.6 MG/DL Magnesium Level 1.4 MG/DL Total Bilirubin 0.9 MG/DL Aspartate Amino Transf 24 U/L (AST/SGOT) Alanine Aminotransferase 39 U/L (ALT/SGPT) Alkaline Phosphatase 163 U/L B-Type Natriuretic Peptide 668 PG/ML Total Protein 5.8 GM/DL Albumin 1.9 GM/DL Imaging Last Impressions Chest X-Ray 09/06/16 0000 Signed Impressions: Service Date/Time: Tuesday, September 06, 2016 13:49 - CONCLUSION: 1. Interval intubation and placement of nasogastric tube. 2. Volume loss again noted left hemithorax with mediastinal shift. There is coarse infiltrate remaining in the left lung. 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 There is concentric mural thrombus. This aneurysm is not amenable to thrombin injection. Polo Moore Jr., MD Lung Scan-VQ Nuclear Medicine 08/29/16 0000 Signed Impressions: Service Date/Time: Monday, August 29, 2016 10:20 - CONCLUSION: Low probability for pulmonary embolus. Lex Lopez MD Brain MRI 08/27/16 0000 Signed Impressions: Service Date/Time: August 15:13 - CONCLUSION: No evidence of acute infarct, hemorrhage, mass or edema. No findings to suggest significant anoxic injury. Kit Power MD Renal Ultrasound 08/25/16 0000 Signed Impressions: Service Date/Time: Wednesday, August 24, 2016 21:53 - CONCLUSION: 1. There is no hydronephrosis. Both kidneys demonstrate mild increased echotexture of the parenchyma suggesting medical renal disease. 2. Trace perihepatic free fluid and bilateral pleural effusions. Lex Malik MD Chest CT 08/25/16 0000 Signed Impressions: Service Date/Time: Thursday, August 25, 2016 21:20 - CONCLUSION: 1. Bilateral pneumonia and aspiration would be in the differential. There is dependent consolidation/atelectasis and small effusions of the bases as well. 2. Upper limits of normal to mildly enlarged mediastinal lymph nodes, most likely reactive. 3. Coronary artery calcification. 4. Right rib fractures, including acute fractures laterally of the third, fourth and fifth. There are old, healed fractures anteriorly of the right second and third ribs.. Lex Lopez MD Abdomen/Pelvis CT 08/25/16 0000 Signed Impressions: Service Date/Time: Thursday, August 25, 2016 20:20 - CONCLUSION: 1. Ventral hernia containing small bowel and with associated small bowel obstruction. The defect is broad; I believe the obstruction is probably related to scarring and/or adhesions within the hernia sac. I don't see a mass. 2. Distended stomach despite NG tube present. 3. Severe aortoiliac atherosclerosis. No aneurysm. Lex Lopez MD Abdomen X-Ray 08/24/16 0000 Signed Impressions: Service Date/Time: Wednesday, August 24, 2016 17:19 - CONCLUSION: 1. Small bowel dilatation which reflect ileus or obstruction. Followup examination is recommended if clinically indicated. Gareth Escalante MD Objective Remarks GENERAL: Patient is 71 yo intubated and sedated. SKIN: Warm and dry. HEAD: Normocephalic. EYES: No scleral icterus. No injection or drainage. NECK: Supple, trachea midline. No JVD or lymphadenopathy. Orally intubated CARDIOVASCULAR: Regular rate and rhythm without murmurs, gallops, or rubs. RESPIRATORY: Breath sounds equal bilaterally. No accessory muscle use. GASTROINTESTINAL: Abdomen soft, non-tender, nondistended. MUSCULOSKELETAL: No cyanosis, +1 edema. Neuro: Sedated and intubated Date of Insertion: Aug 26, 2016 Line: Central Venous Catheter Side: Left Location: Internal, Jugular A/P Assessment and Plan Neuro/Psych: Status post CPR 15 minutes - possible anoxic encephalopathy Depression NOS Monitor neuro status. On Propofol/Fentanyl infusion for sedation, daily sedation vacation Goal of RASS -2. EEG 08/25 revealed mild to moderate encephalopathy. No epileptiform activity. MRI brain 08/27 revealed no acute findings. Cardiovascular: Cardiac arrest status post CPR Elevated troponin History dyslipidemia History of hypertension PVD Systemic shock likely secondary to sepsis/aspiration/small bowel obstruction Possible femoral pseudoaneurysm Monitor HR and BP keep MAP>65mmHg Continue Cardizem 30mg QID Cardiac arrest status post CPR. s/p aggressive fluid resuscitation. 5 units PRBCs transfused to date minimal troponin elevation following cardiac arrest noted. Echo 2D revealed EF 35-40%. Moderate LVH. Mitral valve calcified. Mild TR. Pulmonary: Acute respiratory failure secondary to aspiration pneumonia- Reintubated 09/06 End-stage COPD. Oxygen dependent FEV1 28%, FVC 1.6. s/p reintubation and bronch 09/06 mucous plugs in left main stem bronchus Continue with vent support keep sat >92% Bronchodilators, Pulmicort twice a day Decrease Solu-Medrol [address] chest revealed small pleural effusions bilaterally with likely aspiration VQ scan low probability 08/29 ICU vent bundle, for trach today GI. Small bowel obstruction - resolved Upper GI bleed plus esophageal rule out aorto esophageal fistula History of Ashley esophagitis History of colonic polyps History of ventral hernia status post repair last by Dr. Roberts CT abdomen/pelvis revealed possible small bowel obstruction at level of ventral hernia. Severe aortoiliac disease. Dr. roberts/general surgery evaluated. Very poor surgical candidate this time. EGD 08/25 revealed esophageal nipple. Clots noted within the gastric contents without active bleeding. Protonix for GI prophylaxis EGD revealed 25 cm proximal esophagus with possible bleeding. Rule out aorto esophageal fistula. Renal/: Acute kidney injury Hypernatremia History of bladder outlet obstruction Monitor renal function, I/O's, electrolytes replacement per protocol. Place on Free water 250ml Q8 monitor sodium level. No hydronephrosis on CT abdomen/pelvis ID: UTI Sepsis Fungemia Continue abx per ID ( Zosyn, Micafungin) monitor for signs of infections ( Fever , WBC) Pertinent cultures 09/03 - blood culture - no growth 09/02 - blood culture - no growth 08/27 - blood from central line -Ashley Glabrata 08/27 -arterial line blood - pending 08/26 - sputum -Serratia 08/25 - blood cultures 2 -Ashley 08/25 - urine -no growth 08/22 - blood cultures 2 - no growth 08/21 - urine - no growth 08/20 - blood cultures 2 - 1 out of 4 staph epi Endocrine: Chronic prednisone use secondary to COPD SSI for glycemic control as needed. Heme: Acute blood loss anemia History of prostate cancer Leukocytosis Status post 4 units PRBCs ands 2 units FFP on 08/24. Given one unit PRBCs 08/26 Monitor CBC and coags. MSK: PT/OT evaluate and treat Access - Left IJ CVL -placed 08/26 Prophylaxis - GI -Protonix - DVT - SCD/pharmacological prophylaxis contraindicated with GI bleed Critical Care: The total critical care time was 30 minutes. Time to perform other separately billable procedures was not included in the critical care time. Cal Arias MD Sep 08, 2016 09:19
[2016-09-08] MEDS ORDERED: MIDAZOLAM HCL 2 MG/2 ML VIAL IV PUSH ONE (09:30)
[2016-09-08] MEDS ORDERED: VECURONIUM BROMIDE 10 MG VIAL IV PUSH ONE (09:30)
--- NOTE | 2016-09-08 09:49 | HHI.IDPN ---
Subjective Subjective Remarks is a 71 y/o CM with COPD and oxygen dependent, Ashley esophagitis, prior h/o pneumonia. According to the since the patient was discharged he continued to have nausea and vomiting. He has not had any bowel movement, and she thinks in the last 3 weeks. Patient started having more weakness, and was getting more short of breath, so the patient presented back to the hospital and was admitted August 20. He was admitted as a COPD exacerbation and pneumonia. He was put on empiric antibiotics. Patient had in hospital cardiorespiratory arrest. He was successfully resuscitated, and intubated. Patient had an A- line in arm, CL in groin which was changed on 08/27/16. 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 Patient continues to have elevated WBC, and is being treated for sepsis secondary to aspiration PNA, Fungemia likely line related (groin line likely now DCed). Notes reviewed Temps ok BP ok, not on pressors For trach today Working with PT Reintubated 09/06 Had bronch 09/06 for collapse L with shift Bronch C/S pending Follow-up CXR same and no change WBC down to normal CRISTHIAN negative Last (+) BC 08/27 with C glabrata First (+) BC with C albicans and C glabrata Follow up BC negative Has pseudoaneurysm R femoral artery Sputum 08/26 with Serratia Antibiotics Zosyn IV (aspiration PNA) IV Micafungin (for fungal line infection) Lines L I J central line Past Medical History Hypertension COPD O2 dependent prostate cancer Bladder outlet obstruction Hyperlipidemia Past Surgical History Ventral hernia Appendectomy Perforated gastric ulcer surgery Cataract Upper and lower endoscopy Allergies: Coded Allergies: *MDRO Multi-Drug Resistant Organism (Verified Adverse Reaction, Unknown, ) MRSA (abdominal wound) 2015 per 04/10/2015 H&P MRSA PCR Screen #1 NEGATIVE - 08/21/16 Objective . Vital Signs Date Time Temp Pulse Resp B/P Pulse Ox O2 Delivery O2 Flow Rate FiO2 09/08/16 08:41 95 40 09/08/16 08:00 71 09/08/16 08:00 98.2 71 16 114/70 100 09/08/16 08:00 40 09/08/16 06:00 98 09/08/16 04:00 97.6 76 23 126/78 99 09/08/16 04:00 40 09/08/16 04:00 76 09/08/16 03:29 99 40 09/08/16 02:00 58 09/08/16 01:07 97 40 09/08/16 00:00 60 09/08/16 00:00 97.1 60 22 142/81 100 09/08/16 00:00 40 09/07/16 22:17 98 40 09/07/16 22:00 72 09/07/16 20:00 40 09/07/16 20:00 97.2 61 22 137/83 100 09/07/16 20:00 61 09/07/16 19:25 100 40 09/07/16 18:00 59 09/07/16 16:45 100 40 09/07/16 16:00 97.6 62 16 106/69 98 09/07/16 16:00 64 09/07/16 16:00 40 09/07/16 14:00 67 09/07/16 12:34 98 40 09/07/16 12:00 97.4 82 16 92/64 97 09/07/16 12:00 40 09/07/16 12:00 88 09/07/16 10:00 88 09/07/16 09/07/16 09/08/16 15:00 23:00 07:00 Intake Total 423 ml 310 ml 223 ml Output Total 1250 ml 525 ml 300 ml Balance -827 ml -215 ml -77 ml Intake Oral 0 ml IV Total 423 ml 310 ml 223 ml Output Urine Total 1250 ml 500 ml 300 ml Gastric Drainage Total 25 ml # Bowel Movements 1 0 0 . Laboratory Tests Test 09/07/16 09/08/16 11:00 04:35 White Blood Count 6.2 TH/MM3 6.2 TH/MM3 Red Blood Count 2.95 MIL/MM3 2.94 MIL/MM3 Hemoglobin 9.0 GM/DL 9.0 GM/DL Hematocrit 26.7 % 26.7 % Mean Corpuscular Volume 90.5 FL 90.7 FL Mean Corpuscular Hemoglobin 30.6 PG 30.6 PG Mean Corpuscular Hemoglobin 33.8 % 33.8 % Concent Red Cell Distribution Width 17.0 % 17.7 % Platelet Count 146 TH/MM3 150 TH/MM3 Mean Platelet Volume 9.9 FL 9.8 FL Neutrophils (%) (Auto) 92.6 % 89.1 % Lymphocytes (%) (Auto) 3.7 % 5.4 % Monocytes (%) (Auto) 3.5 % 5.4 % Eosinophils (%) (Auto) 0.0 % 0.0 % Basophils (%) (Auto) 0.2 % 0.1 % Neutrophils # (Auto) 5.7 TH/MM3 5.5 TH/MM3 Lymphocytes # (Auto) 0.2 TH/MM3 0.3 TH/MM3 Monocytes # (Auto) 0.2 TH/MM3 0.3 TH/MM3 Eosinophils # (Auto) 0.0 TH/MM3 0.0 TH/MM3 Basophils # (Auto) 0.0 TH/MM3 0.0 TH/MM3 CBC Comment AUTO DIFF DIFF FINAL Differential Total Cells 100 Counted Neutrophils % (Manual) 87 % Band Neutrophils % 4 % Lymphocytes % 5 % Monocytes % 3 % Neutrophils # (Manual) 5.7 TH/MM3 Myelocytes 1 % Differential Comment FINAL DIFF MANUAL Platelet Estimate LOW Platelet Morphology Comment NORMAL Helmet Cells OCC Laboratory Tests Test 09/07/16 09/08/16 09/08/16 11:00 00:35 04:35 Sodium Level 147 MEQ/L 148 MEQ/L Potassium Level 3.2 MEQ/L 3.5 MEQ/L 3.4 MEQ/L Chloride Level 103 MEQ/L 108 MEQ/L Carbon Dioxide Level 35.3 MEQ/L 31.9 MEQ/L Anion Gap 9 MEQ/L 8 MEQ/L Blood Urea Nitrogen 31 MG/DL 34 MG/DL Creatinine 1.15 MG/DL 1.06 MG/DL Estimat Glomerular Filtration 63 ML/MIN 69 ML/MIN Rate Random Glucose 174 MG/DL 171 MG/DL Calcium Level 7.9 MG/DL 8.3 MG/DL Phosphorus Level 3.6 MG/DL Magnesium Level 1.4 MG/DL Total Bilirubin 0.9 MG/DL Aspartate Amino Transf 24 U/L (AST/SGOT) Alanine Aminotransferase 39 U/L (ALT/SGPT) Alkaline Phosphatase 163 U/L B-Type Natriuretic Peptide 668 PG/ML Total Protein 5.8 GM/DL Albumin 1.9 GM/DL Microbiology Date/Time Procedure Status Source Growth 09/06/16 14:00 Gram Stain - Final Resulted Bronchial Washings Right Mid Lobe 09/06/16 14:00 Bronchial Culture - Preliminary Resulted Bronchial Washings Right Mid Lobe IMMATURE GROWTH - REINCUBATE 09/06/16 14:00 Acid Fast Stain Received Bronchial Washings Right Mid Lobe Pending 09/06/16 14:00 Mycobacterial Culture Received Bronchial Washings Right Mid Lobe Pending 09/06/16 14:00 Fungal Smear - Final Resulted Bronchial Washings Right Mid Lobe NO FUNGAL ELEMENTS SEEN. 09/06/16 14:00 Fungal Culture Resulted Bronchial Washings Right Mid Lobe Pending Imaging Chest X-Ray 09/06/16 0000 Signed Impressions: Service Date/Time: Tuesday, September 06, 2016 13:49 - CONCLUSION: 1. Interval intubation and placement of nasogastric tube. 2. Volume loss again noted left hemithorax with mediastinal shift. There is coarse infiltrate remaining in the left lung. Ian Horton MD Chest X-Ray 09/06/16 0000 Signed Impressions: Service Date/Time: Tuesday, September 06, 2016 08:50 - CONCLUSION: 1. Increasing density throughout the left hemithorax with volume loss suggesting mucus plugging. Eduardo Mcconnell MD Chest X-Ray 09/05/16 0500 Signed Impressions: Service Date/Time: Monday, September 05, 2016 03:49 - CONCLUSION: 1. Basilar airspace disease similar to prior exam. Support apparatus unchanged. Eleazar Jimenez MD Chest X-Ray 09/05/16 0500 Signed Impressions: Service Date/Time: Monday, September 05, 2016 03:49 - CONCLUSION: 1. Basilar airspace disease similar to prior exam. Support apparatus unchanged. Eleazar Jimenez MD Chest X-Ray 09/01/16 0600 Signed Impressions: Service Date/Time: Thursday, September 01, 2016 03:19 - CONCLUSION: No significant interval change in bilateral pulmonary parenchymal opacity and small bilateral pleural effusions. 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 There is concentric mural thrombus. This aneurysm is not amenable to thrombin injection. Polo Moore Jr., MD Chest X-Ray 08/27/16 0600 Signed Impressions: Service Date/Time: August 02:27 - CONCLUSION: 1. Patchy bilateral airspace disease with improving aeration/decreasing effusions in the bases bilaterally. 2. Stable position of life support tubes. Con Valdes MD Chest X-Ray 08/26/16 0754 Signed Impressions: Service Date/Time: Friday, August 26, 2016 08:14 - CONCLUSION: Left IJ central line distal tip in the SVC. No pneumothorax is visualized. There is a stable appearance the lungs with bilateral airspace consolidation. Lex Malik MD Chest X-Ray 08/26/16 0600 Signed Impressions: Service Date/Time: Friday, August 26, 2016 04:01 - CONCLUSION: 1. Worsening bibasilar effusions/atelectasis with diffuse interstitial edema, all characteristic of CHF. 2. Endotracheal tube remains appropriately positioned above the michele Con Valdes MD Chest X-Ray 08/26/16 0754 Signed Impressions: Service Date/Time: Friday, August 26, 2016 08:14 - CONCLUSION: Left IJ central line distal tip in the SVC. No pneumothorax is visualized. There is a stable appearance the lungs with bilateral airspace consolidation. Lex Malik MD Renal Ultrasound 08/25/16 0000 Signed Impressions: Service Date/Time: Wednesday, August 24, 2016 21:53 - CONCLUSION: 1. There is no hydronephrosis. Both kidneys demonstrate mild increased echotexture of the parenchyma suggesting medical renal disease. 2. Trace perihepatic free fluid and bilateral pleural effusions. Lex Malik MD Chest CT 08/25/16 0000 Signed Impressions: Service Date/Time: Thursday, August 25, 2016 21:20 - CONCLUSION: 1. Bilateral pneumonia and aspiration would be in the differential. There is dependent consolidation/atelectasis and small effusions of the bases as well. 2. Upper limits of normal to mildly enlarged mediastinal lymph nodes, most likely reactive. 3. Coronary artery calcification. 4. Right rib fractures, including acute fractures laterally of the third, fourth and fifth. There are old, healed fractures anteriorly of the right second and third ribs.. Lex Lopez MD Abdomen/Pelvis CT 08/25/16 0000 Signed Impressions: Service Date/Time: Thursday, August 25, 2016 20:20 - CONCLUSION: 1. Ventral hernia containing small bowel and with associated small bowel obstruction. The defect is broad; I believe the obstruction is probably related to scarring and/or adhesions within the hernia sac. I don't see a mass. 2. Distended stomach despite NG tube present. 3. Severe aortoiliac atherosclerosis. No aneurysm. Lex Lopez MD Abdomen X-Ray 08/24/16 0000 Signed Impressions: Service Date/Time: Wednesday, August 24, 2016 17:19 - CONCLUSION: 1. Small bowel dilatation which reflect ileus or obstruction. Followup examination is recommended if clinically indicated. Gareth Escalante MD Physical Exam GENERAL: awake, following, on the vent, NAD SKIN: Warm and dry. No generalized rash HEENT: Pale conjunctivae, no petechia or hemorrhage. No scleral icterus. Orally intubated NECK: Trachea midline. No JVD or lymphadenopathy. Supple. LIJ TLC looks ok CARDIOVASCULAR: Regular rate and rhythm without murmurs, gallops, or rubs. RESPIRATORY: Decreased breath sounds throughout both lung garcia. GASTROINTESTINAL: Abdomen soft, not tender, not distended. Has an incisional hernia. Has midline scar. Bowel sounds are hypoactive, no guarding. No redness or tenderness noted in R groin MUSCULOSKELETAL: Extremities without clubbing, cyanosis. Edema better NEUROLOGICAL: Awake, non-focal PSYCH: Cooperative LINE: LIJ TLC no evidence of infection. Assessment & Plan Remarks IMPRESSION IMPRESSION Sepsis present on admission and then sepsis again. Central line associated blood stream infection (CLABSI) related fungemia ( likely groin line) now discontinued. Arterial line discontinued as well. 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 Recurrent respiratory failure, due to mucus plugging - S/P bronch Diarrhea ? Cdiff vs antibiotic associated. Status post cardiorespiratory arrest, likely aspirated Findings SBO within the hernia on CT A/P, clinically better Acute respiratory failure, extubated 09/05 - reintubated 09/06 Leukocytosis, up again, reactive due to resp decompensation COPD, oxygen dependent Previous GI bleed with workup showing gastritis, Ashley esophagitis, and polyps Large incisional ventral hernia Bladder outlet obstruction, currently has a Hammond Renal insufficiency RECOMMENDATION Continue Micafungin IV (C.glabrata fungemia) Continue Zosyn IV for now Follow cultures Monitor progress Has possible pseudoaneurysm at site of femoral line, and will likely treat for 4 weeks with antifungal. For trach today Nuha Fernandez MD Sep 08, 2016 09:49
[2016-09-08] MEDS: FREE WATER G-TUBE SCH ×3 (09:56→21:42)
[2016-09-08 10:12] LABS: MAGNESIUM 1.9 MG/DL (1.5-2.5)
[2016-09-08] MEDS: MICAFUNGIN INJ 100 MG in SODIUM CHLORIDE 0.9% INJ 100 ML IV SCH (11:06)
[2016-09-08] MEDS: INSULIN NovoLIN REGULAR SUPPLEMENTAL SCALE SQ SCH ×2 (11:10→18:00)
--- NOTE | 2016-09-08 14:56 | RADRPT ---
EXAM DATE/TIME: 09/08/2016 13:37 [facility] COMPARISON: CHEST SINGLE AP, September 06, 2016, 13:49. INDICATIONS : Post Trach placement. MEDICAL HISTORY : Chronic obstructive pulmonary disease. Emphysema SURGICAL HISTORY : None. ENCOUNTER: Subsequent ACUITY: 3 weeks PAIN SCORE: Non-responsive. LOCATION: Bilateral chest FINDINGS: A tracheostomy tube has been placed and has its tip in good position approximately 5 cm above the car nancy. A left internal jugular central line has its tip in the superior vena cava. There is no pneumo thorax. There has been interval improvement of the interstitial infiltrates with minimal scattered r esidual right basilar infiltrate remaining. CONCLUSION: 1. Interval improvement of the interstitial infiltrates with minimal residual right basilar infiltra te noted. 2. Tracheostomy tube in good position approximately 5 cm above the michele. Lui Kim MD on September 08, 2016 at 14:51 Board Certified Radiologist. This report was verified electronically.
[2016-09-08] MEDS: RESP: ACETYLCYSTEINE 10% 30 ML NEB NEB SCH ×3 (16:00→20:37)
--- NOTE | 2016-09-08 16:32 | HHI.GIFU ---
Subjective Remarks Sedated on ventilator. Per nurse, tracheostomy was placed earlier today. ( Ronna Aldrich) Objective Vitals I&O Vital Signs Date Time Temp Pulse Resp B/P Pulse Ox O2 Delivery O2 Flow Rate FiO2 09/08/16 15:10 93 40 09/08/16 14:00 64 09/08/16 13:00 100 100 09/08/16 12:00 40 09/08/16 12:00 65 09/08/16 12:00 97.8 65 16 118/74 96 09/08/16 11:38 95 40 09/08/16 10:00 69 09/08/16 08:41 95 40 09/08/16 08:00 71 09/08/16 08:00 98.2 71 16 114/70 100 09/08/16 08:00 40 09/08/16 06:00 98 09/08/16 04:00 97.6 76 23 126/78 99 09/08/16 04:00 40 09/08/16 04:00 76 09/08/16 03:29 99 40 09/08/16 02:00 58 09/08/16 01:07 97 40 09/08/16 00:00 60 09/08/16 00:00 97.1 60 22 142/81 100 09/08/16 00:00 40 09/07/16 22:17 98 40 09/07/16 22:00 72 09/07/16 20:00 40 09/07/16 20:00 97.2 61 22 137/83 100 09/07/16 20:00 61 09/07/16 19:25 100 40 09/07/16 18:00 59 09/07/16 16:45 100 40 I/O 09/07/16 09/07/16 09/07/16 09/08/16 09/08/16 09/08/16 07:00 15:00 23:00 07:00 15:00 23:00 Intake Total 412 ml 423 ml 310 ml 223 ml 816 ml Output Total 500 ml 1250 ml 525 ml 300 ml 350 ml Balance -88 ml -827 ml -215 ml -77 ml 466 ml Intake Oral 0 ml 0 ml 0 ml IV Total 412 ml 423 ml 310 ml 223 ml 576 ml Other 240 ml Output Urine Total 500 ml 1250 ml 500 ml 300 ml 350 ml Gastric Drainage Total 25 ml # Bowel Movements 1 1 0 0 1 Laboratory Laboratory Tests Test 09/08/16 09/08/16 00:35 04:35 Potassium Level 3.5 3.4 White Blood Count 6.2 Red Blood Count 2.94 Hemoglobin 9.0 Hematocrit 26.7 Mean Corpuscular Volume 90.7 Mean Corpuscular Hemoglobin 30.6 Mean Corpuscular Hemoglobin 33.8 Concent Red Cell Distribution Width 17.7 Platelet Count 150 Mean Platelet Volume 9.8 Neutrophils (%) (Auto) 89.1 Lymphocytes (%) (Auto) 5.4 Monocytes (%) (Auto) 5.4 Eosinophils (%) (Auto) 0.0 Basophils (%) (Auto) 0.1 Neutrophils # (Auto) 5.5 Lymphocytes # (Auto) 0.3 Monocytes # (Auto) 0.3 Eosinophils # (Auto) 0.0 Basophils # (Auto) 0.0 CBC Comment DIFF FINAL Differential Comment Sodium Level 148 Chloride Level 108 Carbon Dioxide Level 31.9 Anion Gap 8 Blood Urea Nitrogen 34 Creatinine 1.06 Estimat Glomerular Filtration 69 Rate Random Glucose 171 Calcium Level 8.3 Phosphorus Level 3.2 Magnesium Level 1.9 Date/Time Procedure Status Source Growth 09/06/16 14:00 Gram Stain - Final Resulted Bronchial Washings Right Mid Lobe 09/06/16 14:00 Bronchial Culture - Preliminary Resulted Gram Negative Alec 09/06/16 14:00 Fungal Smear - Final Resulted Bronchial Washings Right Mid Lobe NO FUNGAL ELEMENTS SEEN. 09/06/16 14:00 Fungal Culture - Preliminary Resulted Yeast-Id To Follow 09/06/16 14:00 Acid Fast Stain - Final Resulted Bronchial Washings Right Mid Lobe NO ACID FAST BACILLI SEEN 09/06/16 14:00 Mycobacterial Culture Resulted Bronchial Washings Right Mid Lobe Pending Imaging Last Impressions Chest X-Ray 09/06/16 0000 Signed Impressions: Service Date/Time: Tuesday, September 06, 2016 13:49 - CONCLUSION: 1. Interval intubation and placement of nasogastric tube. 2. Volume loss again noted left hemithorax with mediastinal shift. There is coarse infiltrate remaining in the left lung. 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 There is concentric mural thrombus. This aneurysm is not amenable to thrombin injection. Polo Moore Jr., MD Lung Scan-V Nuclear Medicine 08/29/16 Signed Impressions: Service Date/Time: Monday, August 29, 2016 10:20 - CONCLUSION: Low probability for pulmonary embolus. Lex Lopez MD Brain MRI 08/27/16 Signed Impressions: Service Date/Time: August 15:13 - CONCLUSION: No evidence of acute infarct, hemorrhage, mass or edema. No findings to suggest significant anoxic injury. Kit Power MD Renal Ultrasound 08/25/16 Signed Impressions: Service Date/Time: Wednesday, August 24, 2016 21:53 - CONCLUSION: 1. There is no hydronephrosis. Both kidneys demonstrate mild increased echotexture of the parenchyma suggesting medical renal disease. 2. Trace perihepatic free fluid and bilateral pleural effusions. Lex Malik MD Chest CT 08/25/16 Signed Impressions: Service Date/Time: Thursday, August 25, 2016 21:20 - CONCLUSION: 1. Bilateral pneumonia and aspiration would be in the differential. There is dependent consolidation/atelectasis and small effusions of the bases as well. 2. Upper limits of normal to mildly enlarged mediastinal lymph nodes, most likely reactive. 3. Coronary artery calcification. 4. Right rib fractures, including acute fractures laterally of the third, fourth and fifth. There are old, healed fractures anteriorly of the right second and third ribs.. Lex Lopez MD Abdomen/Pelvis CT 08/25/16 Signed Impressions: Service Date/Time: Thursday, August 25, 2016 20:20 - CONCLUSION: 1. Ventral hernia containing small bowel and with associated small bowel obstruction. The defect is broad; I believe the obstruction is probably related to scarring and/or adhesions within the hernia sac. I don't see a mass. 2. Distended stomach despite NG tube present. 3. Severe aortoiliac atherosclerosis. No aneurysm. Lex Lopez MD Abdomen X-Ray 08/24/16 Signed Impressions: Service Date/Time: Wednesday, August 24, 2016 17:19 - CONCLUSION: 1. Small bowel dilatation which reflect ileus or obstruction. Followup examination is recommended if clinically indicated. Gareth Escalante MD Physical Exam HEENT: Normocephalic; atraumatic; no jaundice. Scant amount of red blood, some sores to lips. CHEST: Resp even. diminished. Tracheostomy. Course breath sounds. CARDIAC: RRR ABDOMEN: Soft, nondistended, no hepatosplenomegaly; bowel sounds are present x 4 quadrants. Large ventral hernia reducible. Generalized edema SKIN: Skin cool to touch, dry ORAL AND MAXILLOFACIAL PATHOLOGIST: Sedated on vent. (Ronna Aldrihc) Assessment and Plan Plan ASSESSMENT: - Reconsulted for PEG tube placement. S/P tracheostomy placement today. Called and spoke to daughter Donna re: EGD with PEG tube placement, procedure, risks, benefits and she would like to proceed. He is on Zosyn. - Massive GIB with older appearing dark maroon gastric secretions. IMPROVED. Pt is s/p CODE BLUE, vomiting large amount of dark maroon secretions on 08/24 and HH dropped to 5.4/16.7. According to the chart , he has a hx of perforated gastric ulcer. Recent EGD (08/10/16)---> mild gastritis, nodules in the EG junction, moderate esophagitis, normal endoscopy otherwise, retroflexed views revealed no abnormalities. Pathology revealed mild active chronic gastritis, nodule GE junction with gastric mucosa with mild chronic inflammation of the lamina propria and foveolar hyperplasia, acutely inflamed squamous mucosa and detached fragments of acute inflammatory exudate multiple budding yeast and pseudohyphae are present in exudate, acutely ulcerated mucosa of distal esophagus with numerous budding yeast and pseudohyphae invading tissue, consistent with mary kay esophagitis. Colonoscopy (08/11/16) with polypectomy and ablation of polyp in ascending colon with hot snare. Ascending colon with markedly cauterized colonic mucosa with features suggestive of hyperplastic polyp. S/P EGD (08/26/16)-----> Proximal esophageal lesion possibly vascular in nature , Incomplete evaluation of the stomach, Deformed pylorus. S/P CT chest (08/25/16)-----> 1. Bilateral pneumonia and aspiration would be in the differential. There is dependent consolidation/atelectasis and small effusions of the bases as well. 2. Upper limits of normal to mildly enlarged mediastinal lymph nodes, most likely reactive. 3. Coronary artery calcification. 4. Right rib fractures, including acute fractures laterally of the third, fourth and fifth. There are old, healed fractures anteriorly of the right second and third ribs. At this time, he does not appear to be having active bleeding. Okay to start TF. Possible EGD next week. Protonix Gtt. Micafungin. Not having active GI bleeding at this time. - Anemia secondary acute blood loss. S/P 5 units PRBC, 2 units FFP. HH has since remained stable. 9.0/26.7. - Ileus vs. Bowel obstruction. RESOLVED Abdomen X-Ray (08/24/16)---> 1. Small bowel dilatation which reflect ileus or obstruction. Followup examination is recommended if clinically indicated. Abdomen/Pelvis CT (08/25/16)----> 1. Ventral hernia containing small bowel and with associated small bowel obstruction. The defect is broad; I believe the obstruction is probably related to scarring and/or adhesions within the hernia sac. I don't see a mass. 2. Distended stomach despite NG tube present. 3. Severe aortoiliac atherosclerosis. No aneurysm. GS following, known to Dr. Roberts. GS following. Abdominal distention much improved, soft, nondistended. Large ventral hernia- reducible. RESOLVED. - Recent mary kay esophagitis/Bcx with yeast. Micafungin per ID - S/P CODE BLUE (08/24). Pt with ROSC after 15 MN. . - Acute respiratory failure with COPD and suspected HCAP. Required reintubation. S/P tracheostomy today. - Large Ventral hernia, reducible. per Dr. Roberts - Sepsis, Severe leukocytosis, improving. Rpt Bx growing yeast. ID following. Abx Zosyn, micafungin, PLAN: - Plan for egd with peg tube placement - Obtain consents - NPO after MN - On Zosyn - Monitor HH - Transfuse as necessary - Supportive care - Monitor labs - Further recommendations to follow based on results of above - Patient seen and examined by and myself and this note is written on her behalf (Ronna Aldrich) Physician Comments seen, examined agree with above we will attempt peg tube placement, may be difficult due to ventral hernia ( Nusrat Sanders MD) Ronna Aldrich Sep 08, 2016 16:32 Nusrat Sanders MD Sep 08, 2016 16:44
[2016-09-08] MEDS: PROPOFOL 1000 MG/100 ML INJ 100 ML IV SCH (21:41)
[2016-09-09] VITALS (18 sets, daily range): BP systolic 106–160; BP diastolic 65–89; PULSE 56–90; RESP 15–23; TEMP 97.9–98.8; O2SAT 95–100
[2016-09-09] MEDS: INSULIN NovoLIN REGULAR SUPPLEMENTAL SCALE SQ SCH ×4 (00:58→17:33)
[2016-09-09] MEDS: RESP: ALBUTEROL 2.5 MG/IPRATROPIUM 0.5 MG NEB (SCH) NEB ×4 (03:10→21:27)
[2016-09-09] MEDS: RESP: ACETYLCYSTEINE 10% 30 ML NEB NEB SCH ×4 (03:10→21:27)
[2016-09-09] MEDS: PROPOFOL 1000 MG/100 ML INJ 100 ML IV SCH ×3 (04:23→20:45)
[2016-09-09] MEDS: methylPREDNISolone SOD SUCC 40 MG/1 ML VIAL IV PUSH SCH ×2 (04:23→15:27)
[2016-09-09] MEDS: PIPERACIL-TAZO 3.375 GM PREMIX 50 ML IV SCH ×2 (04:23→08:55)
[2016-09-09] MEDS: fentaNYL DRIP 250 ML IV SCH ×2 (04:24→14:12)
[2016-09-09 05:52] LABS: AUTOMATED NEUTROPHIL # 9.4 TH/MM3 (1.8-7.7); BASOPHIL % 0.1 % (0.0-2.0); HEMATOCRIT 25.4 % (39.0-51.0); LYMPH % 5.5 % (9.0-44.0); LYMPHOCYTE # 0.6 TH/MM3 (1.0-4.8); MEAN CELL VOLUME 91.7 FL (80.0-100.0); MEAN CORPUSCULAR HEMOGLOBIN 30.8 PG (27.0-34.0); MEAN CORPUSCULAR HGB CONC 33.6 % (32.0-36.0); MONO % 5.8 % (0.0-8.0); NEUT % 88.6 % (16.0-70.0); PLATELET COUNT 155 TH/MM3 (150-450); RED BLOOD COUNT 2.77 MIL/MM3 (4.50-5.90); RED CELL DISTRIBUTION WIDTH 17.8 % (11.6-17.2); WHITE BLOOD COUNT 10.7 TH/MM3 (4.0-11.0)
[2016-09-09] MEDS: FREE WATER G-TUBE SCH ×3 (06:00→17:33)
[2016-09-09 06:03] LABS: HEMO FLAGS AUTO DIFF
[2016-09-09 06:23] LABS: BICARBONATE 31.2 MEQ/L (21.0-32.0); POTASSIUM 4.3 MEQ/L (3.5-5.1)
[2016-09-09 07:51] LABS: SCAN/DIFF AUTO DIFF CONFIRMED
[2016-09-09] MEDS: RESP: BUDESONIDE 0.5 MG/2 ML NEB NEB SCH ×2 (07:56→21:27)
[2016-09-09] MEDS: CHLORHEXIDINE GLUCONATE 0.12% 30 ML CUP MT SCH ×2 (08:00→20:00)
--- NOTE | 2016-09-09 08:50 | HHI.CCPN ---
Subjective Remarks/Hospital Course 08/24: 71 Year-old male with a medical history significant for COPD on home oxygen who was recently admitted with suspected sepsis/H And was initiated on IV antibiotics and steroids. He had recently been evaluated by GI and underwent EGD on 08/10/2016 and was found to have moderate esophagitis, mild gastritis with pathology subsequently showing Ashley esophagitis as well as colonoscopy on 08/11/2016 with polypectomy and ablation of polyp in ascending colon with hot snare. Patient has been dealing with constipation since his admission. Today when he was trying to have a bowel movement he suddenly became less responsive and then had a large emesis which resulted in aspiration and hemodynamic collapse. Patient initially had large volume emesis with dark maroon blood. CODE BLUE cardiac arrest code was activated. On my arrival patient was in bed CPR had been initiated. Significant gastric contents was still being suctioned out of his oral cavity. ACLS protocol was continued. Patient was intubated following vigorous suctioning of gastric contents from oral cavity as well as with placement of NG tube which is hooked up to suction and about 1.5 L of gastric contents being suctioned out which appeared to be dark maroon in color. Patient initially had a pulse when CODE BLUE was called and subsequently went in PEA arrest followed by asystole during ACLS and then V. fib for which he was defibrillated with 200 J 1, CPR/ACLS protocol was continued and patient eventually had return of spontaneous circulation after about 15 minutes of CPR/ACLS. Patient was transferred to [facility] and placed on mechanical ventilation. I emergently placed left femoral central line for central vascular access and he was started on Levophed for pressor support. 2 units of O- 1 crossmatch blood were ordered and transfused stat. He also received 1 L of normal saline bolus following return of spontaneous circulation. Stat labs were ordered. His hemoglobin on ABG done post resuscitation was 5.6. I did order Protonix 80 mg IV stat followed by 8 mg per hour IV infusion. Patient remained encephalopathic though was minimally responsive following transfer to the ICU. GI consult was requested and I spoke with Dr. Zmaarripa at bedside on his arrival. History was obtained by reviewing records, discussion with family/ GI as well as nursing staff. According to patient's daughter he has not been doing well for the last few months in terms of his breathing and has been using his home oxygen more often. He gets extremely short of breath even with the least exertion. 08/25: Remains encephalopathic/ sedated, [facility]. Transiently off levophed last night however back to 11 mcg/min currently. Hgb up to 9.4 following 4 units PRBCs transfused last night. 08/26: Tmax 99. Some unresponsive on the ventilator. CT abdomen/pelvis less than revealed small bowel obstruction at site of ventral hernia. No further bleeding noted. Gastric output approximately 700 cc. No bowel movement. 08/27: Tmax 99.7. Currently afebrile. Positive BM overnight approximately 1 L according to RN. No blood noted. 100 cc from gastric tube overnight. Hemoglobin corrected a properly. Likely dilutional. Noted fungemia currently issue. Opens eyes to voice. 08/28: Tmax 99.1. No BMs overnight. Minimal gastric tube output. Hemoglobin stable 9.5. Opens eyes to voice. Not following commands. Appears with singultus this morning. 08/29: 20 beat run of wide complex tachycardia overnight. Noted potassium 3.2. This is been replaced. We'll recheck this afternoon. Circuit exchange yesterday. Patient tolerating pressure control ventilation much better than PRVC/AC ventilation is low probably VQ scan. Less FiO2 requirements. No BM past 24 hour. 08/30: Unable to wean ventilator. 08/31: Patient was extubated on 08/30 however became tachypneic with use of accessory muscles of respiration and required reintubation around 6:30 PM last night and was placed back on mechanical ventilation. Currently sedated, orally intubated on mechanical ventilation. Post intubation chest x-ray suggested fluid overload for which she was given Lasix 40 mg IV with good response having made about 2.5 L urine the last 7 hours. 09/01: Remains sedated, orally intubated on mechanical ventilation. Diuresing well with Lasix. Awaiting EGD in a.m. 09/02: Little progress. CXR clearing nicely. Continue diuresis, tolerate hypernatremia. 09/03: Good diuretic response. CRISTHIAN today with no valvar pathology. 09/04: Too weak to tolerate extubation. Will require trach. 09/05: Sedated, arousable, following commands. Tolerated C Pap trial for 9 hours yesterday with pressure support +10. Tolerating tube feeds. Subjective 09/06: Extubated yesterday. Chest x-ray reveals likely mucous plugging in left lung garcia. Currently on nonrebreather mask. Planning of insomnia and thick secretions that he is unable to cough up. 09/07 Patient s/p reintubation and bronch 09/06 mucous plugs in left main stem bronchus sedated with Diprivan and Fentanyl. Afebrile. For possible trach tomorrow. 09/08 No acute events overnight. Sedated with Diprivan and Fentanyl. Afebrile. For trach today. 09/09 No acute events overnight. Sedated and intubated. s/p trach yesterday for PEG tube placement today. Objective Vital Signs Date Time Temp Pulse Resp B/P Pulse Ox O2 Delivery O2 Flow Rate FiO2 09/09/16 07:52 97 40 09/09/16 06:00 60 09/09/16 04:00 98.5 16 106/65 09/06/16 12:13 Non-Rebreather 12.00 Intake and Output 09/08/16 09/08/16 09/09/16 08:00 16:00 00:00 Intake Total 223 ml 816 ml 304 ml Output Total 300 ml 350 ml 350 ml Balance -77 ml 466 ml -46 ml Result Diagram: 09/09/16 0430 09/09/16 0430 Other Results Laboratory Tests Test 09/08/16 09/09/16 15:40 04:30 Potassium Level 3.5 MEQ/L 4.3 MEQ/L White Blood Count 10.7 TH/MM3 Red Blood Count 2.77 MIL/MM3 Hemoglobin 8.5 GM/DL Hematocrit 25.4 % Mean Corpuscular Volume 91.7 FL Mean Corpuscular Hemoglobin 30.8 PG Mean Corpuscular Hemoglobin 33.6 % Concent Red Cell Distribution Width 17.8 % Platelet Count 155 TH/MM3 Mean Platelet Volume 9.8 FL Neutrophils (%) (Auto) 88.6 % Lymphocytes (%) (Auto) 5.5 % Monocytes (%) (Auto) 5.8 % Eosinophils (%) (Auto) 0.0 % Basophils (%) (Auto) 0.1 % Neutrophils # (Auto) 9.4 TH/MM3 Lymphocytes # (Auto) 0.6 TH/MM3 Monocytes # (Auto) 0.6 TH/MM3 Eosinophils # (Auto) 0.0 TH/MM3 Basophils # (Auto) 0.0 TH/MM3 CBC Comment AUTO DIFF Differential Comment AUTO DIFF CONFIRMED Sodium Level 150 MEQ/L Chloride Level 112 MEQ/L Carbon Dioxide Level 31.2 MEQ/L Anion Gap 7 MEQ/L Blood Urea Nitrogen 33 MG/DL Creatinine 1.00 MG/DL Estimat Glomerular Filtration 74 ML/MIN Rate Random Glucose 115 MG/DL Calcium Level 8.8 MG/DL Phosphorus Level 3.1 MG/DL Magnesium Level 2.0 MG/DL Imaging Last Impressions Chest X-Ray 09/08/16 1325 Signed Impressions: Service Date/Time: Thursday, September 08, 2016 13:37 - CONCLUSION: 1. Interval improvement of the interstitial infiltrates with minimal residual right basilar infiltrate noted. 2. Tracheostomy tube in good position approximately 5 cm above the michele. 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 There is concentric mural thrombus. This aneurysm is not amenable to thrombin injection. Polo Moore Jr., MD Lung Scan-V Nuclear Medicine 08/29/16 0000 Signed Impressions: Service Date/Time: Monday, August 29, 2016 10:20 - CONCLUSION: Low probability for pulmonary embolus. Lex Lopez MD Brain MRI 08/27/16 0000 Signed Impressions: Service Date/Time: August 15:13 - CONCLUSION: No evidence of acute infarct, hemorrhage, mass or edema. No findings to suggest significant anoxic injury. Kit Power MD Renal Ultrasound 08/25/16 0000 Signed Impressions: Service Date/Time: Wednesday, August 24, 2016 21:53 - CONCLUSION: 1. There is no hydronephrosis. Both kidneys demonstrate mild increased echotexture of the parenchyma suggesting medical renal disease. 2. Trace perihepatic free fluid and bilateral pleural effusions. Lex Malik MD Chest CT 08/25/16 0000 Signed Impressions: Service Date/Time: Thursday, August 25, 2016 21:20 - CONCLUSION: 1. Bilateral pneumonia and aspiration would be in the differential. There is dependent consolidation/atelectasis and small effusions of the bases as well. 2. Upper limits of normal to mildly enlarged mediastinal lymph nodes, most likely reactive. 3. Coronary artery calcification. 4. Right rib fractures, including acute fractures laterally of the third, fourth and fifth. There are old, healed fractures anteriorly of the right second and third ribs.. Lex Lopez MD Abdomen/Pelvis CT 08/25/16 0000 Signed Impressions: Service Date/Time: Thursday, August 25, 2016 20:20 - CONCLUSION: 1. Ventral hernia containing small bowel and with associated small bowel obstruction. The defect is broad; I believe the obstruction is probably related to scarring and/or adhesions within the hernia sac. I don't see a mass. 2. Distended stomach despite NG tube present. 3. Severe aortoiliac atherosclerosis. No aneurysm. Lex Lopez MD Abdomen X-Ray 08/24/16 0000 Signed Impressions: Service Date/Time: Wednesday, August 24, 2016 17:19 - CONCLUSION: 1. Small bowel dilatation which reflect ileus or obstruction. Followup examination is recommended if clinically indicated. Gareth Escalante MD Objective Remarks GENERAL: Patient is 71 yo intubated and sedated. SKIN: Warm and dry. HEAD: Normocephalic. EYES: No scleral icterus. No injection or drainage. NECK: Supple, trachea midline. No JVD or lymphadenopathy. Trach in place CARDIOVASCULAR: Regular rate and rhythm without murmurs, gallops, or rubs. RESPIRATORY: Breath sounds equal bilaterally. No accessory muscle use. GASTROINTESTINAL: Abdomen soft, non-tender, nondistended. MUSCULOSKELETAL: No cyanosis, +1 edema. Neuro: Sedated and intubated Date of Insertion: Aug 26, 2016 Line: Central Venous Catheter Side: Left Location: Internal, Jugular A/P Assessment and Plan Neuro/Psych: Status post CPR 15 minutes - possible anoxic encephalopathy Depression NOS Monitor neuro status. On Propofol/Fentanyl infusion for sedation, daily sedation vacation Goal of RASS -2. EEG 08/25 revealed mild to moderate encephalopathy. No epileptiform activity. MRI brain 08/27 revealed no acute findings. Cardiovascular: Cardiac arrest status post CPR Elevated troponin History dyslipidemia History of hypertension PVD Systemic shock likely secondary to sepsis/aspiration/small bowel obstruction Possible femoral pseudoaneurysm Monitor HR and BP keep MAP>65mmHg Continue Cardizem 30mg QID Cardiac arrest status post CPR. s/p aggressive fluid resuscitation. 5 units PRBCs transfused to date minimal troponin elevation following cardiac arrest noted. Echo 2D revealed EF 35-40%. Moderate LVH. Mitral valve calcified. Mild TR. Pulmonary: Acute respiratory failure secondary to aspiration pneumonia- Reintubated 09/06 s/p Trach on 09/08 End-stage COPD. Oxygen dependent FEV1 28%, FVC 1.6. s/p reintubation and bronch 09/06 mucous plugs in left main stem bronchus Continue with vent support keep sat >92% Bronchodilators, Pulmicort twice a day Solu-Medrol 40 mEq IV Q12 VQ scan low probability 08/29 ICU vent bundle, pulm toilet, trach care GI. Small bowel obstruction - resolved Upper GI bleed plus esophageal rule out aorto esophageal fistula History of Ashley esophagitis History of colonic polyps History of ventral hernia status post repair last by Dr. Roberts For PEG tube placement today CT abdomen/pelvis revealed possible small bowel obstruction at level of ventral hernia. Severe aortoiliac disease. Dr. roberts/general surgery evaluated. Very poor surgical candidate this time. EGD 08/25 revealed esophageal nipple. Clots noted within the gastric contents without active bleeding. Protonix for GI prophylaxis EGD revealed 25 cm proximal esophagus with possible bleeding. Rule out aorto esophageal fistula. Renal/: Acute kidney injury Hypernatremia History of bladder outlet obstruction Monitor renal function, I/O's, electrolytes replacement per protocol. Increase Free water 300ml Q6 monitor sodium level. Add D5W@42ml/hr No hydronephrosis on CT abdomen/pelvis ID: UTI Sepsis Fungemia Continue abx per ID ( Zosyn, Micafungin) monitor for signs of infections ( Fever , WBC) Pertinent cultures 09/03 - blood culture - no growth 09/02 - blood culture - no growth 08/27 - blood from central line -Ashley Glabrata 08/27 -arterial line blood - pending 08/26 - sputum -Serratia 08/25 - blood cultures 2 -Ashley 08/25 - urine -no growth 08/22 - blood cultures 2 - no growth 08/21 - urine - no growth 08/20 - blood cultures 2 - 1 out of 4 staph epi Endocrine: Chronic prednisone use secondary to COPD SSI for glycemic control as needed. Heme: Acute blood loss anemia History of prostate cancer Leukocytosis Status post 4 units PRBCs ands 2 units FFP on 3/6. Given one unit PRBCs 3/8 Monitor CBC and coags. MSK: PT/OT evaluate and treat Access - Left IJ CVL -placed 08/26 Prophylaxis - GI -Protonix - DVT - SCD/pharmacological prophylaxis contraindicated with GI bleed Critical Care: The total critical care time was 30 minutes. Time to perform other separately billable procedures was not included in the critical care time. Cal Arias MD Sep 09, 2016 08:50
[2016-09-09] MEDS: PANTOPRAZOLE SODIUM 40 MG VIAL IV PUSH SCH ×2 (08:55→20:46)
[2016-09-09] MEDS: SODIUM CHLORIDE 0.9% FLUSH 5 ML FLUSH IVF SCH (08:55)
[2016-09-09] MEDS: MULTIVITAMIN TAB PO SCH (08:56)
[2016-09-09] MEDS: DILTIAZEM HCL 30 MG TAB PO SCH ×4 (08:56→20:45)
[2016-09-09] MEDS: COLLAGENASE OINT 30 GM TUBE TOP SCH (08:56)
[2016-09-09] MEDS ORDERED: DEXTROSE 5% IN WATE 1000ML INJ 1,000 ML IV SCH (09:00)
--- NOTE | 2016-09-09 09:46 | MP ---
cc: TANESHA DIAZ M.D. DATE OF SURGERY: 09/08/2016 PREOPERATIVE DIAGNOSIS Ventilator dependence. POSTOPERATIVE DIAGNOSIS Ventilator dependence. PROCEDURE PERFORMED Percutaneous dilatation with tracheostomy, #8 Shiley. SURGEON Tanesha Diaz [employer]ILRO[employer] SIGNAL TECHNICIAN Yolanda Yang, MS III ANESTHESIA 1. General per Dr. Arias. 2. Local 1% lidocaine with epinephrine. COMPLICATIONS None. INDICATION FOR PROCEDURE Mr. Thomason is an unfortunate 71-year-old gentleman who has been in the hospital for quite some time with multiple medical problems. He has been ventilator dependent. He has had several trials of extubation and failed. Critical Care Medicine requested tracheostomy for ventilator weaning assistance. The procedure was discussed with the patient's daughter who was agreeable. DETAILS OF PROCEDURE The patient remained in the [facility]. A timeout was taken. The anterior neck was then prepped and draped in standard surgical fashion. Nursing staff and Dr. Arias administered IV sedation and paralytics. The anterior trachea was palpated one fingerbreadth above the sternal notch. 1% lidocaine with epinephrine was injected in the skin and subcutaneous tissue in this area. A transverse incision was made. Blunt dissection was used to dissect down to the trachea. Tracheal rings were identified. Endotracheal tube was then withdrawn from the proposed site and the proposed site was visualized by direct bronchoscopy. An 18-gauge angiocatheter needle was then used to identify the trachea without any difficulty. The angiocatheter was advanced and the guidewire placed. The guidewire was seen to go inferiorly. The angiocatheter was then removed. An anterior tracheotomy was performed using the tracheal punch. The Blue Rhino was then passed on three successive times down to the black line without any difficulty. A #8 Shiley tracheostomy tube was then inserted over a dilator without any problems. The guidewire and dilator were then removed. The tracheal balloon was inflated. Direct bronchoscopy via the tracheostomy confirmed placement. The patient was then connected to the ventilator and found to have excellent tidal volumes and positive end-tidal CO2. The tracheostomy tube was then secured with a 2-0 Prolene suture bilaterally. Sterile dressings were applied. The patient tolerated the procedure well without any desaturation or instability. Post-procedure chest x-ray was ordered. MD HEIDY Engel /1:32 PM /9:38 AM
--- NOTE | 2016-09-09 09:53 | HHI.IDPN ---
Subjective Subjective Remarks is a 71 y/o CM with COPD and oxygen dependent, Ashley esophagitis, prior h/o pneumonia. According to the since the patient was discharged he continued to have nausea and vomiting. He has not had any bowel movement, and she thinks in the last 3 weeks. Patient started having more weakness, and was getting more short of breath, so the patient presented back to the hospital and was admitted August 20. He was admitted as a COPD exacerbation and pneumonia. He was put on empiric antibiotics. Patient had in hospital cardiorespiratory arrest. He was successfully resuscitated, and intubated. Patient had an A- line in arm, CL in groin which was changed on 08/27/16. 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 Patient continues to have elevated WBC, and is being treated for sepsis secondary to aspiration PNA, Fungemia likely line related (groin line likely now DCed). Notes reviewed D/W RN S/P trach yesterday EGD today Temps ok BP ok, not on pressors On the vent Reintubated 09/06 Had bronch 09/06 for collapse L with shift Bronch C/S pending WBC down to normal CRISTHIAN negative Last (+) BC 08/27 with C glabrata First (+) BC with C albicans and C glabrata Follow up BC negative Has pseudoaneurysm R femoral artery Sputum 08/26 with Serratia Antibiotics Zosyn IV (aspiration PNA) IV Micafungin (for fungal line infection) Lines L I J central line Past Medical History Hypertension COPD O2 dependent prostate cancer Bladder outlet obstruction Hyperlipidemia Past Surgical History Ventral hernia Appendectomy Perforated gastric ulcer surgery Cataract Upper and lower endoscopy Allergies: Coded Allergies: *MDRO Multi-Drug Resistant Organism (Verified Adverse Reaction, Unknown, ) MRSA (abdominal wound) 2015 per 04/10/2015 H&P MRSA PCR Screen #1 NEGATIVE - 08/21/16 Objective . Vital Signs Date Time Temp Pulse Resp B/P Pulse Ox O2 Delivery O2 Flow Rate FiO2 09/09/16 07:52 97 40 09/09/16 06:00 60 09/09/16 04:16 97 40 09/09/16 04:00 62 09/09/16 04:00 40 09/09/16 04:00 98.5 62 16 106/65 98 09/09/16 02:00 60 09/09/16 00:12 96 40 09/09/16 00:00 60 09/09/16 00:00 40 09/09/16 00:00 98.1 60 16 113/70 95 09/08/16 22:00 64 09/08/16 20:39 100 40 09/08/16 20:00 40 09/08/16 20:00 97.9 60 16 115/74 97 09/08/16 20:00 60 09/08/16 18:00 61 09/08/16 16:00 40 09/08/16 16:00 97.4 65 16 100/55 95 09/08/16 16:00 65 09/08/16 15:10 93 40 09/08/16 14:00 64 09/08/16 13:00 100 100 09/08/16 12:00 40 09/08/16 12:00 65 09/08/16 12:00 97.8 65 16 118/74 96 09/08/16 11:38 95 40 09/08/16 10:00 69 09/08/16 09/08/16 09/09/16 15:00 23:00 07:00 Intake Total 816 ml 304 ml 528 ml Output Total 350 ml 350 ml 300 ml Balance 466 ml -46 ml 228 ml Intake Oral 0 ml IV Total 576 ml 304 ml 528 ml Other 240 ml Output Urine Total 350 ml 350 ml 300 ml # Bowel Movements 1 0 1 . Laboratory Tests Test 09/07/16 09/08/16 09/09/16 11:00 04:35 04:30 White Blood Count 6.2 TH/MM3 6.2 TH/MM3 10.7 TH/MM3 Red Blood Count 2.95 MIL/MM3 2.94 MIL/MM3 2.77 MIL/MM3 Hemoglobin 9.0 GM/DL 9.0 GM/DL 8.5 GM/DL Hematocrit 26.7 % 26.7 % 25.4 % Mean Corpuscular Volume 90.5 FL 90.7 FL 91.7 FL Mean Corpuscular Hemoglobin 30.6 PG 30.6 PG 30.8 PG Mean Corpuscular Hemoglobin 33.8 % 33.8 % 33.6 % Concent Red Cell Distribution Width 17.0 % 17.7 % 17.8 % Platelet Count 146 TH/MM3 150 TH/MM3 155 TH/MM3 Mean Platelet Volume 9.9 FL 9.8 FL 9.8 FL Neutrophils (%) (Auto) 92.6 % 89.1 % 88.6 % Lymphocytes (%) (Auto) 3.7 % 5.4 % 5.5 % Monocytes (%) (Auto) 3.5 % 5.4 % 5.8 % Eosinophils (%) (Auto) 0.0 % 0.0 % 0.0 % Basophils (%) (Auto) 0.2 % 0.1 % 0.1 % Neutrophils # (Auto) 5.7 TH/MM3 5.5 TH/MM3 9.4 TH/MM3 Lymphocytes # (Auto) 0.2 TH/MM3 0.3 TH/MM3 0.6 TH/MM3 Monocytes # (Auto) 0.2 TH/MM3 0.3 TH/MM3 0.6 TH/MM3 Eosinophils # (Auto) 0.0 TH/MM3 0.0 TH/MM3 0.0 TH/MM3 Basophils # (Auto) 0.0 TH/MM3 0.0 TH/MM3 0.0 TH/MM3 CBC Comment AUTO DIFF DIFF FINAL AUTO DIFF Differential Total Cells 100 Counted Neutrophils % (Manual) 87 % Band Neutrophils % 4 % Lymphocytes % 5 % Monocytes % 3 % Neutrophils # (Manual) 5.7 TH/MM3 Myelocytes 1 % Differential Comment FINAL DIFF AUTO DIFF MANUAL CONFIRMED Platelet Estimate LOW Platelet Morphology Comment NORMAL Helmet Cells OCC Laboratory Tests Test 09/07/16 09/08/16 09/08/16 09/08/16 11:00 00:35 04:35 15:40 Sodium Level 147 MEQ/L 148 MEQ/L Potassium Level 3.2 MEQ/L 3.5 MEQ/L 3.4 MEQ/L 3.5 MEQ/L Chloride Level 103 MEQ/L 108 MEQ/L Carbon Dioxide Level 35.3 MEQ/L 31.9 MEQ/L Anion Gap 9 MEQ/L 8 MEQ/L Blood Urea Nitrogen 31 MG/DL 34 MG/DL Creatinine 1.15 MG/DL 1.06 MG/DL Estimat Glomerular Filtration 63 ML/MIN 69 ML/MIN Rate Random Glucose 174 MG/DL 171 MG/DL Calcium Level 7.9 MG/DL 8.3 MG/DL Phosphorus Level 3.6 MG/DL 3.2 MG/DL Magnesium Level 1.4 MG/DL 1.9 MG/DL Total Bilirubin 0.9 MG/DL Aspartate Amino Transf 24 U/L (AST/SGOT) Alanine Aminotransferase 39 U/L (ALT/SGPT) Alkaline Phosphatase 163 U/L B-Type Natriuretic Peptide 668 PG/ML Total Protein 5.8 GM/DL Albumin 1.9 GM/DL Test 09/09/16 04:30 Sodium Level 150 MEQ/L Potassium Level 4.3 MEQ/L Chloride Level 112 MEQ/L Carbon Dioxide Level 31.2 MEQ/L Anion Gap 7 MEQ/L Blood Urea Nitrogen 33 MG/DL Creatinine 1.00 MG/DL Estimat Glomerular Filtration 74 ML/MIN Rate Random Glucose 115 MG/DL Calcium Level 8.8 MG/DL Phosphorus Level 3.1 MG/DL Magnesium Level 2.0 MG/DL Microbiology Date/Time Procedure Status Source Growth 09/06/16 14:00 Gram Stain - Final Resulted Bronchial Washings Right Mid Lobe 09/06/16 14:00 Bronchial Culture - Preliminary Resulted Gram Negative Alec 09/06/16 14:00 Acid Fast Stain - Final Resulted Bronchial Washings Right Mid Lobe NO ACID FAST BACILLI SEEN 09/06/16 14:00 Mycobacterial Culture Resulted Bronchial Washings Right Mid Lobe Pending 09/06/16 14:00 Fungal Smear - Final Resulted Bronchial Washings Right Mid Lobe NO FUNGAL ELEMENTS SEEN. 09/06/16 14:00 Fungal Culture - Preliminary Resulted Yeast-Id To Follow 09/08/16 13:20 Gram Stain - Final Resulted Bronchial Washings Bronchial 09/08/16 13:20 Bronchial Culture Resulted Bronchial Washings Bronchial Pending Imaging Chest X-Ray 09/06/16 0000 Signed Impressions: Service Date/Time: Tuesday, September 06, 2016 13:49 - CONCLUSION: 1. Interval intubation and placement of nasogastric tube. 2. Volume loss again noted left hemithorax with mediastinal shift. There is coarse infiltrate remaining in the left lung. Ian Horton MD Chest X-Ray 09/06/16 0000 Signed Impressions: Service Date/Time: Tuesday, September 06, 2016 08:50 - CONCLUSION: 1. Increasing density throughout the left hemithorax with volume loss suggesting mucus plugging. Eduardo Mcconnell MD Chest X-Ray 09/05/16 0500 Signed Impressions: Service Date/Time: Monday, September 05, 2016 03:49 - CONCLUSION: 1. Basilar airspace disease similar to prior exam. Support apparatus unchanged. Eleazar Jimenez MD Chest X-Ray 09/05/16 0500 Signed Impressions: Service Date/Time: Monday, September 05, 2016 03:49 - CONCLUSION: 1. Basilar airspace disease similar to prior exam. Support apparatus unchanged. Eleazar Jimenez MD Chest X-Ray 09/01/16 0600 Signed Impressions: Service Date/Time: Thursday, September 01, 2016 03:19 - CONCLUSION: No significant interval change in bilateral pulmonary parenchymal opacity and small bilateral pleural effusions. 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 There is concentric mural thrombus. This aneurysm is not amenable to thrombin injection. Polo Moore Jr., MD Chest X-Ray 08/27/16 0600 Signed Impressions: Service Date/Time: August 02:27 - CONCLUSION: 1. Patchy bilateral airspace disease with improving aeration/decreasing effusions in the bases bilaterally. 2. Stable position of life support tubes. Con Valdes MD Chest X-Ray 08/26/16 0754 Signed Impressions: Service Date/Time: Friday, August 26, 2016 08:14 - CONCLUSION: Left IJ central line distal tip in the SVC. No pneumothorax is visualized. There is a stable appearance the lungs with bilateral airspace consolidation. eLx Malik MD Chest X-Ray 08/26/16 0600 Signed Impressions: Service Date/Time: Friday, August 26, 2016 04:01 - CONCLUSION: 1. Worsening bibasilar effusions/atelectasis with diffuse interstitial edema, all characteristic of CHF. 2. Endotracheal tube remains appropriately positioned above the michele Con Valdes MD Chest X-Ray 08/26/16 0754 Signed Impressions: Service Date/Time: Friday, August 26, 2016 08:14 - CONCLUSION: Left IJ central line distal tip in the SVC. No pneumothorax is visualized. There is a stable appearance the lungs with bilateral airspace consolidation. Lex Malik MD Renal Ultrasound 08/25/16 0000 Signed Impressions: Service Date/Time: Wednesday, August 24, 2016 21:53 - CONCLUSION: 1. There is no hydronephrosis. Both kidneys demonstrate mild increased echotexture of the parenchyma suggesting medical renal disease. 2. Trace perihepatic free fluid and bilateral pleural effusions. Lex Malik MD Chest CT 08/25/16 0000 Signed Impressions: Service Date/Time: Thursday, August 25, 2016 21:20 - CONCLUSION: 1. Bilateral pneumonia and aspiration would be in the differential. There is dependent consolidation/atelectasis and small effusions of the bases as well. 2. Upper limits of normal to mildly enlarged mediastinal lymph nodes, most likely reactive. 3. Coronary artery calcification. 4. Right rib fractures, including acute fractures laterally of the third, fourth and fifth. There are old, healed fractures anteriorly of the right second and third ribs.. Lex Lopez MD Abdomen/Pelvis CT 08/25/16 0000 Signed Impressions: Service Date/Time: Thursday, August 25, 2016 20:20 - CONCLUSION: 1. Ventral hernia containing small bowel and with associated small bowel obstruction. The defect is broad; I believe the obstruction is probably related to scarring and/or adhesions within the hernia sac. I don't see a mass. 2. Distended stomach despite NG tube present. 3. Severe aortoiliac atherosclerosis. No aneurysm. Lex Lopez MD Abdomen X-Ray 08/24/16 0000 Signed Impressions: Service Date/Time: Wednesday, August 24, 2016 17:19 - CONCLUSION: 1. Small bowel dilatation which reflect ileus or obstruction. Followup examination is recommended if clinically indicated. Gareth Escalante MD Physical Exam GENERAL: awake, following, on the vent, NAD SKIN: Warm and dry. No generalized rash HEENT: Pale conjunctivae, no petechia or hemorrhage. No scleral icterus. Dry oral mucosa, with dried crusted blood NECK: Trach site ok. Supple. LIJ TLC looks ok CARDIOVASCULAR: Regular rate and rhythm without murmurs, gallops, or rubs. RESPIRATORY: Decreased breath sounds throughout both lung garcai. GASTROINTESTINAL: Abdomen soft, not tender, not distended. Has an incisional hernia reducible. Has midline scar. No redness or tenderness noted in R groin MUSCULOSKELETAL: Extremities without clubbing, cyanosis. Edema better NEUROLOGICAL: Awake, non-focal PSYCH: Cooperative LINE: LIJ TLC no evidence of infection. Assessment & Plan Remarks IMPRESSION Sepsis present on admission and then sepsis again. Central line associated blood stream infection (CLABSI) related fungemia ( likely groin line) now discontinued. Arterial line discontinued as well. 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 Recurrent respiratory failure, due to mucus plugging - S/P bronch Diarrhea ? Cdiff vs antibiotic associated. Status post cardiorespiratory arrest, likely aspirated Findings SBO within the hernia on CT A/P, clinically better Acute respiratory failure, extubated 09/05 - reintubated 09/06 GI bleed, stable Leukocytosis, up again, reactive due to resp decompensation COPD, oxygen dependent Previous GI bleed with workup showing gastritis, Ashley esophagitis, and polyps Large incisional ventral hernia Bladder outlet obstruction, currently has a Hammond Renal insufficiency RECOMMENDATION Continue Micafungin IV (C.glabrata fungemia) - plan at least 4 weeks from date of last (+) BC which is 08/27 - anticipated end date is September 23 Stop Zosyn IV Follow new cultures Monitor progress Has possible pseudoaneurysm at site of femoral line, and will likely treat for 4 weeks with antifungal. D/W R%N Nuha Fernandez MD Sep 09, 2016 09:53
[2016-09-09] MEDS: MICAFUNGIN INJ 100 MG in SODIUM CHLORIDE 0.9% INJ 100 ML IV SCH (11:40)
[2016-09-09] MEDS ORDERED: ceFAZolin INJ 1,000 MG VIAL IV ONE (14:42)
[2016-09-09] MEDS ORDERED: PROPOFOL 200 MG/20 ML AMP IV ONE (14:44)
--- NOTE | 2016-09-09 14:54 | GIPROC ---
[facility] [address] [facility]. [facility], [address] EGD PROCEDURE REPORT EXAM DATE: 09/09/2016 PATIENT NAME: Ravindra Thomason MR #: [id number] BIRTHDATE: 1945 ATTENDING: Nusrat Sanders MD ORDER #: [id number] TIME ANALYSIS CLERK: King Candelaria and Donovan Chandler STATUS: inpatient INDICATIONS: The patient is a 71 yr old male here for an EGD due to dysphagia , failure to thrive PROCEDURE PERFORMED: EGD w/ biopsy egd with attempted peg placement MEDICATIONS: Per Anesthesia and None. TOPICAL ANESTHETIC: CONSENT: The patient understands the risks and benefits of the procedure and understands that these risks include, but are not limited to: sedation, allergic reaction, infection, perforation and/or bleeding. Alternative means of evaluation and treatment include, among others: physical exam, x-rays, and/or surgical intervention. The patient elects to proceed with this endoscopic procedure. medical equipment was checked for proper function. Hand hygiene and appropriate measures for infection prevention was taken. After the risks, benefits and alternatives of the procedure were thoroughly explained, Informed consent was verified, confirmed and timeout was successfully executed by the treatment team. The patient was anesthetized with topical anesthesia and the Pentax [id number] endoscope was introduced through the mouth and advanced to the second portion of the duodenum. Retroflexed views revealed a hiatal hernia The gastroscope was then slowly withdrawn and removed. Deformed pylorus/antrum, nodular mucosa-multiple biopsise taken esophagitis distal esophagus-biopsy transillumination seen in hernia sac-unable to place peg endoscopically. ADVERSE EVENTS: There were no complications. IMPRESSIONS: 1. Deformed pylorus/antrum, nodular mucosa-multiple biopsise taken esophagitis distal esophagus-biopsy transillumination seen in hernia sac-unable to place peg endoscopically 2. Retroflexed views revealed a hiatal hernia RECOMMENDATIONS: 1. Await biopsy results. Biopsy results will not be ready for 7-10 days. If you don't hear from us in two weeks, call our office for biopsy results. 2. Ngt insert and start feeding consult surgery for j tube placement if not possible consider ir consult for esophageal feeding tube placement if performed in this institution PATIENT CONDITION: stable DISPOSITION: Inpatient REPEAT EXAM: EGD pending biopsy results Nusrat Sanders MD eSigned: Nusrat Sanders MD 09/09/2016 2:54 PM cc: PATIENT NAME: Ravindra Thomason MR#: [id number]
[2016-09-10] VITALS (20 sets, daily range): BP systolic 113–142; BP diastolic 60–89; PULSE 61–133; RESP 16–20; TEMP 97.1–98.6; O2SAT 92–99
[2016-09-10] MEDS: PROPOFOL 1000 MG/100 ML INJ 100 ML IV SCH ×4 (00:25→21:35)
[2016-09-10] MEDS: fentaNYL DRIP 250 ML IV SCH ×3 (02:50→21:35)
[2016-09-10] MEDS: RESP: ACETYLCYSTEINE 10% 30 ML NEB NEB SCH ×5 (03:11→20:11)
[2016-09-10] MEDS: RESP: ALBUTEROL 2.5 MG/IPRATROPIUM 0.5 MG NEB (SCH) NEB ×2 (03:11→09:25)
[2016-09-10] MEDS: INSULIN NovoLIN REGULAR SUPPLEMENTAL SCALE SQ SCH ×4 (05:26→18:00)
[2016-09-10] MEDS: FREE WATER G-TUBE SCH ×5 (05:26→21:36)
[2016-09-10] MEDS: methylPREDNISolone SOD SUCC 40 MG/1 ML VIAL IV PUSH SCH ×2 (05:26→16:28)
[2016-09-10 06:45] LABS: AUTOMATED NEUTROPHIL # 5.6 TH/MM3 (1.8-7.7); BASOPHIL % 0.2 % (0.0-2.0); EOSINOPHIL % 0.1 % (0.0-4.0); HEMATOCRIT 23.4 % (39.0-51.0); LYMPH % 9.3 % (9.0-44.0); LYMPHOCYTE # 0.6 TH/MM3 (1.0-4.8); MEAN CELL VOLUME 92.5 FL (80.0-100.0); MEAN CORPUSCULAR HEMOGLOBIN 30.5 PG (27.0-34.0); MONO % 8.6 % (0.0-8.0); NEUT % 81.8 % (16.0-70.0); PLATELET COUNT 134 TH/MM3 (150-450); RED BLOOD COUNT 2.53 MIL/MM3 (4.50-5.90); RED CELL DISTRIBUTION WIDTH 17.5 % (11.6-17.2); WHITE BLOOD COUNT 6.8 TH/MM3 (4.0-11.0)
[2016-09-10 06:49] LABS: HEMO FLAGS AUTO DIFF
[2016-09-10 07:05] LABS: BICARBONATE 29.6 MEQ/L (21.0-32.0); POTASSIUM 3.7 MEQ/L (3.5-5.1)
[2016-09-10 07:49] LABS: BANDS 14 % (0-6); MYELOCYTES 2 % (0-0); NEUTROPHIL # MANUAL DIFF 5.4 TH/MM3 (1.8-7.7); PLATELET ESTIMATE SMEAR LOW (NORMAL); PLATELET MORPHOLOGY NORMAL (NORMAL); POLYS (SEG NEUTROPHILS) 64 % (16-70); SCAN/DIFF FINAL DIFF MANUAL; WBC DIFF SAMPLE 100
[2016-09-10] MEDS: CHLORHEXIDINE GLUCONATE 0.12% 30 ML CUP MT SCH ×2 (08:00→20:00)
--- NOTE | 2016-09-10 08:19 | HHI.CCPN ---
Subjective Remarks/Hospital Course 08/24: 71 Year-old male with a medical history significant for COPD on home oxygen who was recently admitted with suspected sepsis/H And was initiated on IV antibiotics and steroids. He had recently been evaluated by GI and underwent EGD on 08/10/2016 and was found to have moderate esophagitis, mild gastritis with pathology subsequently showing Ashley esophagitis as well as colonoscopy on 08/11/2016 with polypectomy and ablation of polyp in ascending colon with hot snare. Patient has been dealing with constipation since his admission. Today when he was trying to have a bowel movement he suddenly became less responsive and then had a large emesis which resulted in aspiration and hemodynamic collapse. Patient initially had large volume emesis with dark maroon blood. CODE BLUE cardiac arrest code was activated. On my arrival patient was in bed CPR had been initiated. Significant gastric contents was still being suctioned out of his oral cavity. ACLS protocol was continued. Patient was intubated following vigorous suctioning of gastric contents from oral cavity as well as with placement of NG tube which is hooked up to suction and about 1.5 L of gastric contents being suctioned out which appeared to be dark maroon in color. Patient initially had a pulse when CODE BLUE was called and subsequently went in PEA arrest followed by asystole during ACLS and then V. fib for which he was defibrillated with 200 J 1, CPR/ACLS protocol was continued and patient eventually had return of spontaneous circulation after about 15 minutes of CPR/ACLS. Patient was transferred to [facility] and placed on mechanical ventilation. I emergently placed left femoral central line for central vascular access and he was started on Levophed for pressor support. 2 units of O- 1 crossmatch blood were ordered and transfused stat. He also received 1 L of normal saline bolus following return of spontaneous circulation. Stat labs were ordered. His hemoglobin on ABG done post resuscitation was 5.6. I did order Protonix 80 mg IV stat followed by 8 mg per hour IV infusion. Patient remained encephalopathic though was minimally responsive following transfer to the ICU. GI consult was requested and I spoke with Dr. Zamarripa at bedside on his arrival. History was obtained by reviewing records, discussion with family/ GI as well as nursing staff. According to patient's daughter he has not been doing well for the last few months in terms of his breathing and has been using his home oxygen more often. He gets extremely short of breath even with the least exertion. 08/25: Remains encephalopathic/ sedated, [facility]. Transiently off levophed last night however back to 11 mcg/min currently. Hgb up to 9.4 following 4 units PRBCs transfused last night. 08/26: Tmax 99. Some unresponsive on the ventilator. CT abdomen/pelvis less than revealed small bowel obstruction at site of ventral hernia. No further bleeding noted. Gastric output approximately 700 cc. No bowel movement. 08/27: Tmax 99.7. Currently afebrile. Positive BM overnight approximately 1 L according to RN. No blood noted. 100 cc from gastric tube overnight. Hemoglobin corrected a properly. Likely dilutional. Noted fungemia currently issue. Opens eyes to voice. 08/28: Tmax 99.1. No BMs overnight. Minimal gastric tube output. Hemoglobin stable 9.5. Opens eyes to voice. Not following commands. Appears with singultus this morning. 08/29: 20 beat run of wide complex tachycardia overnight. Noted potassium 3.2. This is been replaced. We'll recheck this afternoon. Circuit exchange yesterday. Patient tolerating pressure control ventilation much better than PRVC/AC ventilation is low probably VQ scan. Less FiO2 requirements. No BM past 24 hour. 08/30: Unable to wean ventilator. 08/31: Patient was extubated on 08/30 however became tachypneic with use of accessory muscles of respiration and required reintubation around 6:30 PM last night and was placed back on mechanical ventilation. Currently sedated, orally intubated on mechanical ventilation. Post intubation chest x-ray suggested fluid overload for which she was given Lasix 40 mg IV with good response having made about 2.5 L urine the last 7 hours. 09/01: Remains sedated, orally intubated on mechanical ventilation. Diuresing well with Lasix. Awaiting EGD in a.m. 09/02: Little progress. CXR clearing nicely. Continue diuresis, tolerate hypernatremia. 09/03: Good diuretic response. CRISTHIAN today with no valvar pathology. 09/04: Too weak to tolerate extubation. Will require trach. 09/05: Sedated, arousable, following commands. Tolerated C Pap trial for 9 hours yesterday with pressure support +10. Tolerating tube feeds. Subjective 09/06: Extubated yesterday. Chest x-ray reveals likely mucous plugging in left lung garcia. Currently on nonrebreather mask. Planning of insomnia and thick secretions that he is unable to cough up. 09/07 Patient s/p reintubation and bronch 09/06 mucous plugs in left main stem bronchus sedated with Diprivan and Fentanyl. Afebrile. For possible trach tomorrow. 09/08 No acute events overnight. Sedated with Diprivan and Fentanyl. Afebrile. For trach today. 09/09 No acute events overnight. Sedated and intubated. s/p trach yesterday for PEG tube placement today. 09/10 Patient remains sedated and on ventilator via trach. s/p EGD yesterday PEG tube couldn't be placed endoscopically due to hernia. Surgery consulted for J-tube placement. Afebrile. Objective Vital Signs Date Time Temp Pulse Resp B/P Pulse Ox O2 Delivery O2 Flow Rate FiO2 09/10/16 06:00 63 09/10/16 04:00 98.2 16 123/73 98 09/10/16 04:00 40 09/06/16 12:13 Non-Rebreather 12.00 Intake and Output 09/09/16 09/09/16 09/10/16 08:00 16:00 00:00 Intake Total 528 ml 675 ml 701 ml Output Total 300 ml 475 ml 300.0 ml Balance 228 ml 200 ml 401.0 ml Result Diagram: 09/10/1617 09/10/16 0617 Other Results Laboratory Tests Test 09/10/16 06:17 White Blood Count 6.8 TH/MM3 Red Blood Count 2.53 MIL/MM3 Hemoglobin 7.7 GM/DL Hematocrit 23.4 % Mean Corpuscular Volume 92.5 FL Mean Corpuscular Hemoglobin 30.5 PG Mean Corpuscular Hemoglobin 33.0 % Concent Red Cell Distribution Width 17.5 % Platelet Count 134 TH/MM3 Mean Platelet Volume 9.0 FL Neutrophils (%) (Auto) 81.8 % Lymphocytes (%) (Auto) 9.3 % Monocytes (%) (Auto) 8.6 % Eosinophils (%) (Auto) 0.1 % Basophils (%) (Auto) 0.2 % Neutrophils # (Auto) 5.6 TH/MM3 Lymphocytes # (Auto) 0.6 TH/MM3 Monocytes # (Auto) 0.6 TH/MM3 Eosinophils # (Auto) 0.0 TH/MM3 Basophils # (Auto) 0.0 TH/MM3 CBC Comment AUTO DIFF Differential Total Cells 100 Counted Neutrophils % (Manual) 64 % Band Neutrophils % 14 % Lymphocytes % 14 % Monocytes % 6 % Neutrophils # (Manual) 5.4 TH/MM3 Myelocytes 2 % Differential Comment FINAL DIFF MANUAL Platelet Estimate LOW Platelet Morphology Comment NORMAL Sodium Level 146 MEQ/L Potassium Level 3.7 MEQ/L Chloride Level 110 MEQ/L Carbon Dioxide Level 29.6 MEQ/L Anion Gap 6 MEQ/L Blood Urea Nitrogen 27 MG/DL Creatinine 0.82 MG/DL Estimat Glomerular Filtration 93 ML/MIN Rate Random Glucose 127 MG/DL Calcium Level 8.3 MG/DL Imaging Last Impressions Chest X-Ray 09/08/16 1325 Signed Impressions: Service Date/Time: Thursday, September 08, 2016 13:37 - CONCLUSION: 1. Interval improvement of the interstitial infiltrates with minimal residual right basilar infiltrate noted. 2. Tracheostomy tube in good position approximately 5 cm above the michele. 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 There is concentric mural thrombus. This aneurysm is not amenable to thrombin injection. Polo Moore Jr., MD Lung Scan- Nuclear Medicine 08/29/16 0000 Signed Impressions: Service Date/Time: Monday, August 29, 2016 10:20 - CONCLUSION: Low probability for pulmonary embolus. Lex Lopez MD Brain MRI 08/27/16 0000 Signed Impressions: Service Date/Time: August 15:13 - CONCLUSION: No evidence of acute infarct, hemorrhage, mass or edema. No findings to suggest significant anoxic injury. Kit Power MD Renal Ultrasound 08/25/16 0000 Signed Impressions: Service Date/Time: Wednesday, August 24, 2016 21:53 - CONCLUSION: 1. There is no hydronephrosis. Both kidneys demonstrate mild increased echotexture of the parenchyma suggesting medical renal disease. 2. Trace perihepatic free fluid and bilateral pleural effusions. Lex Malik MD Chest CT 08/25/16 0000 Signed Impressions: Service Date/Time: Thursday, August 25, 2016 21:20 - CONCLUSION: 1. Bilateral pneumonia and aspiration would be in the differential. There is dependent consolidation/atelectasis and small effusions of the bases as well. 2. Upper limits of normal to mildly enlarged mediastinal lymph nodes, most likely reactive. 3. Coronary artery calcification. 4. Right rib fractures, including acute fractures laterally of the third, fourth and fifth. There are old, healed fractures anteriorly of the right second and third ribs.. Lex Lopez MD Abdomen/Pelvis CT 08/25/16 0000 Signed Impressions: Service Date/Time: Thursday, August 25, 2016 20:20 - CONCLUSION: 1. Ventral hernia containing small bowel and with associated small bowel obstruction. The defect is broad; I believe the obstruction is probably related to scarring and/or adhesions within the hernia sac. I don't see a mass. 2. Distended stomach despite NG tube present. 3. Severe aortoiliac atherosclerosis. No aneurysm. Lex Lopez MD Abdomen X-Ray 08/24/16 0000 Signed Impressions: Service Date/Time: Wednesday, August 24, 2016 17:19 - CONCLUSION: 1. Small bowel dilatation which reflect ileus or obstruction. Followup examination is recommended if clinically indicated. Gareth Escalante MD Objective Remarks GENERAL: Patient is 71 yo intubated and sedated. SKIN: Warm and dry. HEAD: Normocephalic. EYES: No scleral icterus. No injection or drainage. NECK: Supple, trachea midline. No JVD or lymphadenopathy. Trach in place CARDIOVASCULAR: Regular rate and rhythm without murmurs, gallops, or rubs. RESPIRATORY: Breath sounds equal bilaterally. No accessory muscle use. GASTROINTESTINAL: Abdomen soft, non-tender, nondistended. MUSCULOSKELETAL: No cyanosis, +1 edema. Neuro: Sedated and intubated Date of Insertion: Aug 26, 2016 Line: Central Venous Catheter Side: Left Location: Internal, Jugular A/P Assessment and Plan Neuro/Psych: Status post CPR 15 minutes - possible anoxic encephalopathy Depression NOS Monitor neuro status. On Propofol/Fentanyl infusion for sedation, daily sedation vacation Goal of RASS -2. EEG 08/25 revealed mild to moderate encephalopathy. No epileptiform activity. MRI brain 08/27 revealed no acute findings. Cardiovascular: Cardiac arrest status post CPR Elevated troponin History dyslipidemia History of hypertension PVD Systemic shock likely secondary to sepsis/aspiration/small bowel obstruction Possible femoral pseudoaneurysm Monitor HR and BP keep MAP>65mmHg Increase Cardizem 30mg QID Cardiac arrest status post CPR. s/p aggressive fluid resuscitation. 5 units PRBCs transfused to date minimal troponin elevation following cardiac arrest noted. Echo 2D revealed EF 35-40%. Moderate LVH. Mitral valve calcified. Mild TR. Pulmonary: Acute respiratory failure secondary to aspiration pneumonia- Reintubated 09/06 s/p Trach on 09/08 End-stage COPD. Oxygen dependent FEV1 28%, FVC 1.6. s/p reintubation and bronch 09/06 mucous plugs in left main stem bronchus Continue with vent support keep sat >92% Bronchodilators, Pulmicort twice a day Solu-Medrol 40 mEq IV Q12 VQ scan low probability 08/29 ICU vent bundle, pulm toilet, trach care GI. Small bowel obstruction - resolved Upper GI bleed plus esophageal rule out aorto esophageal fistula History of Ashley esophagitis History of colonic polyps History of ventral hernia status post repair last by Dr. Roberts Continue tube feeds- Jevity 1.5 with goal rate 40ml/hr s/p EGD 09/09: Deformed pylorus/antrum, nodular mucosa-multiple biopsies taken esophagitis distal esophagus-biopsy unable to place peg endoscopically due to hiatal hernia. Surgery consulted for J tube placement. CT abdomen/pelvis revealed possible small bowel obstruction at level of ventral hernia. Severe aortoiliac disease. Dr. roberts/general surgery evaluated. Very poor surgical candidate this time. EGD 08/25 revealed esophageal nipple. Clots noted within the gastric contents without active bleeding. Protonix for GI prophylaxis Renal/: Acute kidney injury Hypernatremia History of bladder outlet obstruction Monitor renal function, I/O's, electrolytes replacement per protocol. On Free water 300ml Q6 monitor sodium level. d/c IVF No hydronephrosis on CT abdomen/pelvis ID: UTI Sepsis Fungemia Continue abx per ID ( Micafungin) monitor for signs of infections ( Fever, WBC) Pertinent cultures 09/06 Bronch- GNR, Yeast 09/03 - blood culture - no growth 09/02 - blood culture - no growth 08/27 - blood from central line -Ashley [place] 08/27 -arterial line blood - pending 08/26 - sputum -Serratia 08/25 - blood cultures 2 -Ashley 08/25 - urine -no growth 08/22 - blood cultures 2 - no growth 08/21 - urine - no growth 08/20 - blood cultures 2 - 1 out of 4 staph epi Endocrine: Chronic prednisone use secondary to COPD SSI for glycemic control as needed. Heme: Acute blood loss anemia History of prostate cancer Leukocytosis Status post 4 units PRBCs ands 2 units FFP on 08/24. Given one unit PRBCs 08/26 Monitor CBC and coags. MSK: PT/OT evaluate and treat Access - Left IJ CVL -placed 08/26, d/c central line and place peripheral IV's Prophylaxis - GI -Protonix - DVT - SCD/pharmacological prophylaxis contraindicated with GI bleed email marketing manager eval for placement. Critical Care: The total critical care time was 30 minutes. Time to perform other separately billable procedures was not included in the critical care time. Cal Arias MD Sep 10, 2016 08:19
[2016-09-10] MEDS: DILTIAZEM HCL 30 MG TAB PO SCH (08:48)
[2016-09-10] MEDS: MULTIVITAMIN TAB PO SCH (08:49)
[2016-09-10] MEDS: PANTOPRAZOLE SODIUM 40 MG VIAL IV PUSH SCH ×2 (08:49→21:34)
[2016-09-10] MEDS: SODIUM CHLORIDE 0.9% FLUSH 5 ML FLUSH IVF SCH (08:49)
[2016-09-10] MEDS: COLLAGENASE OINT 30 GM TUBE TOP SCH (09:00)
[2016-09-10] MEDS: RESP: BUDESONIDE 0.5 MG/2 ML NEB NEB SCH ×2 (09:25→20:11)
[2016-09-10] MEDS: DILTIAZEM HCL 60 MG TAB PO SCH ×3 (12:07→21:36)
[2016-09-10] MEDS: MICAFUNGIN INJ 100 MG in SODIUM CHLORIDE 0.9% INJ 100 ML IV SCH (12:07)
[2016-09-10 12:24] LABS: HEMATOCRIT 26.6 % (39.0-51.0); REVIEW FLAG FINAL
[2016-09-10] MEDS ORDERED: DILTIAZEM HCL 25 MG/5 ML VIAL IV ONE ×2 (13:00→17:15)
--- NOTE | 2016-09-10 13:21 | HHI.IDPN ---
Subjective Subjective Remarks is a 71 y/o CM with COPD and oxygen dependent, Ashley esophagitis, prior h/o pneumonia. According to the since the patient was discharged he continued to have nausea and vomiting. He has not had any bowel movement, and she thinks in the last 3 weeks. Patient started having more weakness, and was getting more short of breath, so the patient presented back to the hospital and was admitted August 20. He was admitted as a COPD exacerbation and pneumonia. He was put on empiric antibiotics. Patient had in hospital cardiorespiratory arrest. He was successfully resuscitated, and intubated. Patient had an A- line in arm, CL in groin which was changed on 08/27/16. 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 Patient continues to have elevated WBC, and is being treated for sepsis secondary to aspiration PNA, Fungemia likely line related (groin line likely now DCed). Notes reviewed D/W RN S/P trach 09/08 Did not have FT placement due to hernia Surgery consulted for placement feeding jejunostomy Temps ok BP ok, not on pressors On the vent Sputum with Sten mal WBC down to normal CRISTHIAN negative Last (+) BC 08/27 with C glabrata First (+) BC with C albicans and C glabrata Follow up BC negative Has pseudoaneurysm R femoral artery Sputum 08/26 with Serratia Antibiotics Zosyn IV (aspiration PNA) IV Micafungin (for fungal line infection) Lines L I J central line Past Medical History Hypertension COPD O2 dependent prostate cancer Bladder outlet obstruction Hyperlipidemia Past Surgical History Ventral hernia Appendectomy Perforated gastric ulcer surgery Cataract Upper and lower endoscopy Allergies: Coded Allergies: *MDRO Multi-Drug Resistant Organism (Verified Adverse Reaction, Unknown, ) MRSA (abdominal wound) 2015 per 04/10/2015 H&P MRSA PCR Screen #1 NEGATIVE - 08/21/16 Objective . Vital Signs Date Time Temp Pulse Resp B/P Pulse Ox O2 Delivery O2 Flow Rate FiO2 09/10/16 10:41 92 40 09/10/16 10:28 40 09/10/16 10:28 93 40 09/10/16 09:25 95 40 09/10/16 08:00 40 09/10/16 08:00 62 09/10/16 06:00 63 09/10/16 04:00 98.2 62 16 123/73 98 09/10/16 04:00 40 09/10/16 04:00 62 09/10/16 03:10 96 40 09/10/16 02:00 61 09/10/16 01:06 96 40 09/10/16 00:00 62 09/10/16 00:00 40 09/10/16 00:00 98.5 62 16 133/66 98 09/09/16 21:26 97 40 09/09/16 20:00 66 09/09/16 20:00 40 09/09/16 20:00 98.8 66 17 160/82 98 09/09/16 19:35 100 40 09/09/16 18:00 72 09/09/16 16:00 90 09/09/16 16:00 40 09/09/16 16:00 98.7 90 20 152/89 98 09/09/16 15:17 97 40 09/09/16 14:00 56 09/09/16 13:20 96 40 09/09/16 09/09/16 09/10/16 15:00 23:00 07:00 Intake Total 675 ml 701 ml 1056 ml Output Total 475 ml 300 ml 600 ml Balance 200 ml 401 ml 456 ml IV Total 675 ml 701 ml 688 ml Tube Feeding 68 ml Other 300 ml Output Urine Total 475 ml 300 ml 600 ml Tube Feeding Residual Discard 0 ml # Bowel Movements 2 1 1 . Laboratory Tests Test 09/09/16 09/10/16 09/10/16 04:30 06:17 12:15 White Blood Count 10.7 TH/MM3 6.8 TH/MM3 Red Blood Count 2.77 MIL/MM3 2.53 MIL/MM3 Hemoglobin 8.5 GM/DL 7.7 GM/DL 8.8 GM/DL Hematocrit 25.4 % 23.4 % 26.6 % Mean Corpuscular Volume 91.7 FL 92.5 FL Mean Corpuscular Hemoglobin 30.8 PG 30.5 PG Mean Corpuscular Hemoglobin 33.6 % 33.0 % Concent Red Cell Distribution Width 17.8 % 17.5 % Platelet Count 155 TH/MM3 134 TH/MM3 Mean Platelet Volume 9.8 FL 9.0 FL Neutrophils (%) (Auto) 88.6 % 81.8 % Lymphocytes (%) (Auto) 5.5 % 9.3 % Monocytes (%) (Auto) 5.8 % 8.6 % Eosinophils (%) (Auto) 0.0 % 0.1 % Basophils (%) (Auto) 0.1 % 0.2 % Neutrophils # (Auto) 9.4 TH/MM3 5.6 TH/MM3 Lymphocytes # (Auto) 0.6 TH/MM3 0.6 TH/MM3 Monocytes # (Auto) 0.6 TH/MM3 0.6 TH/MM3 Eosinophils # (Auto) 0.0 TH/MM3 0.0 TH/MM3 Basophils # (Auto) 0.0 TH/MM3 0.0 TH/MM3 CBC Comment AUTO DIFF AUTO DIFF Differential Comment AUTO DIFF FINAL DIFF CONFIRMED MANUAL Differential Total Cells 100 Counted Neutrophils % (Manual) 64 % Band Neutrophils % 14 % Lymphocytes % 14 % Monocytes % 6 % Neutrophils # (Manual) 5.4 TH/MM3 Myelocytes 2 % Platelet Estimate LOW Platelet Morphology Comment NORMAL Laboratory Tests Test 09/08/16 09/09/16 09/10/16 15:40 04:30 06:17 Potassium Level 3.5 MEQ/L 4.3 MEQ/L 3.7 MEQ/L Sodium Level 150 MEQ/L 146 MEQ/L Chloride Level 112 MEQ/L 110 MEQ/L Carbon Dioxide Level 31.2 MEQ/L 29.6 MEQ/L Anion Gap 7 MEQ/L 6 MEQ/L Blood Urea Nitrogen 33 MG/DL 27 MG/DL Creatinine 1.00 MG/DL 0.82 MG/DL Estimat Glomerular Filtration 74 ML/MIN 93 ML/MIN Rate Random Glucose 115 MG/DL 127 MG/DL Calcium Level 8.8 MG/DL 8.3 MG/DL Phosphorus Level 3.1 MG/DL Magnesium Level 2.0 MG/DL Microbiology Date/Time Procedure Status Source Growth 09/08/16 13:20 Gram Stain - Final Resulted Bronchial Washings Bronchial 09/08/16 13:20 Bronchial Culture - Preliminary Resulted Gram Negative [facility] Chest X-Ray 09/08/16 1325 Signed Impressions: Service Date/Time: Thursday, September 08, 2016 13:37 - CONCLUSION: 1. Interval improvement of the interstitial infiltrates with minimal residual right basilar infiltrate noted. 2. Tracheostomy tube in good position approximately 5 cm above the michele. Lui Kim MD Chest X-Ray 09/06/16 0000 Signed Impressions: Service Date/Time: Tuesday, September 06, 2016 13:49 - CONCLUSION: 1. Interval intubation and placement of nasogastric tube. 2. Volume loss again noted left hemithorax with mediastinal shift. There is coarse infiltrate remaining in the left lung. Ian Horton MD Chest X-Ray 09/06/16 0000 Signed Impressions: Service Date/Time: Tuesday, September 06, 2016 08:50 - CONCLUSION: 1. Increasing density throughout the left hemithorax with volume loss suggesting mucus plugging. Eduardo Mcconnell MD Chest X-Ray 09/05/16 0500 Signed Impressions: Service Date/Time: Monday, September 05, 2016 03:49 - CONCLUSION: 1. Basilar airspace disease similar to prior exam. Support apparatus unchanged. Eleazar Jimenez MD Chest X-Ray 09/05/16 0500 Signed Impressions: Service Date/Time: Monday, September 05, 2016 03:49 - CONCLUSION: 1. Basilar airspace disease similar to prior exam. Support apparatus unchanged. Eleazar Jimenez MD Chest X-Ray 09/01/16 0600 Signed Impressions: Service Date/Time: Thursday, September 01, 2016 03:19 - CONCLUSION: No significant interval change in bilateral pulmonary parenchymal opacity and small bilateral pleural effusions. 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 There is concentric mural thrombus. This aneurysm is not amenable to thrombin injection. Polo Moore Jr., MD Chest X-Ray 08/27/16 0600 Signed Impressions: Service Date/Time: August 02:27 - CONCLUSION: 1. Patchy bilateral airspace disease with improving aeration/decreasing effusions in the bases bilaterally. 2. Stable position of life support tubes. Con Valdes MD Chest X-Ray 08/26/16 0754 Signed Impressions: Service Date/Time: Friday, August 26, 2016 08:14 - CONCLUSION: Left IJ central line distal tip in the SVC. No pneumothorax is visualized. There is a stable appearance the lungs with bilateral airspace consolidation. Lex Malik MD Chest X-Ray 08/26/16 0600 Signed Impressions: Service Date/Time: Friday, August 26, 2016 04:01 - CONCLUSION: 1. Worsening bibasilar effusions/atelectasis with diffuse interstitial edema, all characteristic of CHF. 2. Endotracheal tube remains appropriately positioned above the michele Con Valdes MD Chest X-Ray 08/26/16 0754 Signed Impressions: Service Date/Time: Friday, August 26, 2016 08:14 - CONCLUSION: Left IJ central line distal tip in the SVC. No pneumothorax is visualized. There is a stable appearance the lungs with bilateral airspace consolidation. Lex Malik MD Renal Ultrasound 08/25/16 0000 Signed Impressions: Service Date/Time: Wednesday, August 24, 2016 21:53 - CONCLUSION: 1. There is no hydronephrosis. Both kidneys demonstrate mild increased echotexture of the parenchyma suggesting medical renal disease. 2. Trace perihepatic free fluid and bilateral pleural effusions. Lex Malik MD Chest CT 08/25/16 0000 Signed Impressions: Service Date/Time: Thursday, August 25, 2016 21:20 - CONCLUSION: 1. Bilateral pneumonia and aspiration would be in the differential. There is dependent consolidation/atelectasis and small effusions of the bases as well. 2. Upper limits of normal to mildly enlarged mediastinal lymph nodes, most likely reactive. 3. Coronary artery calcification. 4. Right rib fractures, including acute fractures laterally of the third, fourth and fifth. There are old, healed fractures anteriorly of the right second and third ribs.. Lex Lopez MD Abdomen/Pelvis CT 08/25/16 0000 Signed Impressions: Service Date/Time: Thursday, August 25, 2016 20:20 - CONCLUSION: 1. Ventral hernia containing small bowel and with associated small bowel obstruction. The defect is broad; I believe the obstruction is probably related to scarring and/or adhesions within the hernia sac. I don't see a mass. 2. Distended stomach despite NG tube present. 3. Severe aortoiliac atherosclerosis. No aneurysm. Lex Lopez MD Abdomen X-Ray 08/24/16 0000 Signed Impressions: Service Date/Time: Wednesday, August 24, 2016 17:19 - CONCLUSION: 1. Small bowel dilatation which reflect ileus or obstruction. Followup examination is recommended if clinically indicated. Gareth Escalante MD Physical Exam GENERAL: awake, following, on the vent, NAD SKIN: Warm and dry. No generalized rash HEENT: Full EOM. No scleral icterus. Dry oral mucosa, with dried crusted blood NECK: Trach site ok. Supple. LIJ TLC looks ok CARDIOVASCULAR: Regular rate and rhythm without murmurs, gallops, or rubs. RESPIRATORY: Decreased breath sounds throughout both lung garcia. GASTROINTESTINAL: Abdomen soft, not tender, not distended. Has an incisional hernia reducible. Has midline scar. No redness or tenderness noted in R groin MUSCULOSKELETAL: Extremities without clubbing, cyanosis. Edema better NEUROLOGICAL: Awake, non-focal PSYCH: Cooperative LINE: LIJ TLC no evidence of infection. Assessment & Plan Remarks IMPRESSION Sepsis present on admission and then sepsis again. Better Central line associated blood stream infection (CLABSI) related fungemia ( likely groin line) now discontinued. Arterial line discontinued as well. 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 - S/P Rx Now with Sten mal in sputum Recurrent respiratory failure, due to mucus plugging - S/P bronch Diarrhea ? Cdiff vs antibiotic associated. Status post cardiorespiratory arrest, likely aspirated Findings SBO within the hernia on CT A/P, clinically better Acute respiratory failure, extubated 09/05 - reintubated 09/06 GI bleed, stable Leukocytosis, up again, reactive due to resp decompensation COPD, oxygen dependent Previous GI bleed with workup showing gastritis, Ashley esophagitis, and polyps Large incisional ventral hernia Bladder outlet obstruction, currently has a Hammond Renal insufficiency RECOMMENDATION Continue Micafungin IV (C.glabrata fungemia) - plan at least 4 weeks from date of last (+) BC which is 08/27 - anticipated end date is September 23 Levaquin x 7 days Follow new cultures Monitor progress Has possible pseudoaneurysm at site of femoral line, and will likely treat for 4 weeks with antifungal. Surgery to eval for feeding jejunostomy placement D/W Nuha Nguyen MD Sep 10, 2016 13:21
[2016-09-10] MEDS: LEVOFLOXACIN 750 MG PREMIX INJ 150 ML IV SCH (15:05)
[2016-09-10] MEDS: RESP: ALBUTEROL 2.5 MG/IPRATROPIUM 0.5 MG NEB (PRN) INH (20:11)
[2016-09-11] VITALS (20 sets, daily range): BP systolic 106–170; BP diastolic 64–100; PULSE 66–118; RESP 16–23; TEMP 96.9–98.9; O2SAT 96–100
[2016-09-11] MEDS: RESP: ACETYLCYSTEINE 10% 30 ML NEB NEB SCH ×4 (04:01→19:50)
[2016-09-11] MEDS: RESP: ALBUTEROL 2.5 MG/IPRATROPIUM 0.5 MG NEB (PRN) INH ×3 (04:01→19:49)
[2016-09-11] MEDS: FREE WATER G-TUBE SCH ×4 (05:00→23:03)
[2016-09-11] MEDS: methylPREDNISolone SOD SUCC 40 MG/1 ML VIAL IV PUSH SCH ×2 (05:00→16:12)
[2016-09-11] MEDS: INSULIN NovoLIN REGULAR SUPPLEMENTAL SCALE SQ SCH ×4 (06:00→18:00)
[2016-09-11 06:02] LABS: AUTOMATED NEUTROPHIL # 6.4 TH/MM3 (1.8-7.7); HEMATOCRIT 23.9 % (39.0-51.0); LYMPH % 6.5 % (9.0-44.0); LYMPHOCYTE # 0.5 TH/MM3 (1.0-4.8); MEAN CORPUSCULAR HEMOGLOBIN 31.4 PG (27.0-34.0); MEAN CORPUSCULAR HGB CONC 34.5 % (32.0-36.0); MONO % 6.1 % (0.0-8.0); NEUT % 87.4 % (16.0-70.0); PLATELET COUNT 141 TH/MM3 (150-450); RED BLOOD COUNT 2.63 MIL/MM3 (4.50-5.90); RED CELL DISTRIBUTION WIDTH 17.9 % (11.6-17.2); WHITE BLOOD COUNT 7.3 TH/MM3 (4.0-11.0)
[2016-09-11 06:28] LABS: BICARBONATE 27.7 MEQ/L (21.0-32.0); POTASSIUM 3.6 MEQ/L (3.5-5.1)
[2016-09-11 06:33] LABS: HEMO FLAGS AUTO DIFF
[2016-09-11 07:08] LABS: BANDS 3 % (0-6); METAMYELOCYTES 2 % (0-1); MYELOCYTES 1 % (0-0); NEUTROPHIL # MANUAL DIFF 6.4 TH/MM3 (1.8-7.7); PLATELET ESTIMATE SMEAR LOW (NORMAL); POLYS (SEG NEUTROPHILS) 82 % (16-70); WBC DIFF SAMPLE 100
[2016-09-11 07:09] LABS: PLATELET MORPHOLOGY NORMAL (NORMAL); SCAN/DIFF FINAL DIFF MANUAL
[2016-09-11] MEDS: PANTOPRAZOLE SODIUM 40 MG VIAL IV PUSH SCH ×2 (07:52→20:23)
[2016-09-11] MEDS: COLLAGENASE OINT 30 GM TUBE TOP SCH (07:53)
[2016-09-11] MEDS: MULTIVITAMIN TAB PO SCH (07:53)
[2016-09-11] MEDS: DILTIAZEM HCL 60 MG TAB PO SCH ×4 (07:53→20:22)
[2016-09-11] MEDS: SODIUM CHLORIDE 0.9% FLUSH 5 ML FLUSH IVF SCH (07:54)
[2016-09-11] MEDS: CHLORHEXIDINE GLUCONATE 0.12% 30 ML CUP MT SCH ×2 (08:00→20:00)
[2016-09-11] MEDS: PROPOFOL 1000 MG/100 ML INJ 100 ML IV SCH ×2 (08:09→23:41)
[2016-09-11] MEDS: fentaNYL DRIP 250 ML IV SCH ×2 (08:09→20:22)
[2016-09-11] MEDS: RESP: BUDESONIDE 0.5 MG/2 ML NEB NEB SCH ×2 (08:30→19:49)
--- NOTE | 2016-09-11 08:36 | HHI.CCPN ---
Subjective Remarks/Hospital Course 08/24: 71 Year-old male with a medical history significant for COPD on home oxygen who was recently admitted with suspected sepsis/H And was initiated on IV antibiotics and steroids. He had recently been evaluated by GI and underwent EGD on 08/10/2016 and was found to have moderate esophagitis, mild gastritis with pathology subsequently showing Ashley esophagitis as well as colonoscopy on 08/11/2016 with polypectomy and ablation of polyp in ascending colon with hot snare. Patient has been dealing with constipation since his admission. Today when he was trying to have a bowel movement he suddenly became less responsive and then had a large emesis which resulted in aspiration and hemodynamic collapse. Patient initially had large volume emesis with dark maroon blood. CODE BLUE cardiac arrest code was activated. On my arrival patient was in bed CPR had been initiated. Significant gastric contents was still being suctioned out of his oral cavity. ACLS protocol was continued. Patient was intubated following vigorous suctioning of gastric contents from oral cavity as well as with placement of NG tube which is hooked up to suction and about 1.5 L of gastric contents being suctioned out which appeared to be dark maroon in color. Patient initially had a pulse when CODE BLUE was called and subsequently went in PEA arrest followed by asystole during ACLS and then V. fib for which he was defibrillated with 200 J 1, CPR/ACLS protocol was continued and patient eventually had return of spontaneous circulation after about 15 minutes of CPR/ACLS. Patient was transferred to [facility] and placed on mechanical ventilation. I emergently placed left femoral central line for central vascular access and he was started on Levophed for pressor support. 2 units of O- 1 crossmatch blood were ordered and transfused stat. He also received 1 L of normal saline bolus following return of spontaneous circulation. Stat labs were ordered. His hemoglobin on ABG done post resuscitation was 5.6. I did order Protonix 80 mg IV stat followed by 8 mg per hour IV infusion. Patient remained encephalopathic though was minimally responsive following transfer to the ICU. GI consult was requested and I spoke with Dr. Zamarripa at bedside on his arrival. History was obtained by reviewing records, discussion with family/ GI as well as nursing staff. According to patient's daughter he has not been doing well for the last few months in terms of his breathing and has been using his home oxygen more often. He gets extremely short of breath even with the least exertion. 08/25: Remains encephalopathic/ sedated, [facility]. Transiently off levophed last night however back to 11 mcg/min currently. Hgb up to 9.4 following 4 units PRBCs transfused last night. 08/26: Tmax 99. Some unresponsive on the ventilator. CT abdomen/pelvis less than revealed small bowel obstruction at site of ventral hernia. No further bleeding noted. Gastric output approximately 700 cc. No bowel movement. 08/27: Tmax 99.7. Currently afebrile. Positive BM overnight approximately 1 L according to RN. No blood noted. 100 cc from gastric tube overnight. Hemoglobin corrected a properly. Likely dilutional. Noted fungemia currently issue. Opens eyes to voice. 08/28: Tmax 99.1. No BMs overnight. Minimal gastric tube output. Hemoglobin stable 9.5. Opens eyes to voice. Not following commands. Appears with singultus this morning. 08/29: 20 beat run of wide complex tachycardia overnight. Noted potassium 3.2. This is been replaced. We'll recheck this afternoon. Circuit exchange yesterday. Patient tolerating pressure control ventilation much better than PRVC/AC ventilation is low probably VQ scan. Less FiO2 requirements. No BM past 24 hour. 08/30: Unable to wean ventilator. 08/31: Patient was extubated on 08/30 however became tachypneic with use of accessory muscles of respiration and required reintubation around 6:30 PM last night and was placed back on mechanical ventilation. Currently sedated, orally intubated on mechanical ventilation. Post intubation chest x-ray suggested fluid overload for which she was given Lasix 40 mg IV with good response having made about 2.5 L urine the last 7 hours. 09/01: Remains sedated, orally intubated on mechanical ventilation. Diuresing well with Lasix. Awaiting EGD in a.m. 09/02: Little progress. CXR clearing nicely. Continue diuresis, tolerate hypernatremia. 09/03: Good diuretic response. CRISTHIAN today with no valvar pathology. 09/04: Too weak to tolerate extubation. Will require trach. 09/05: Sedated, arousable, following commands. Tolerated C Pap trial for 9 hours yesterday with pressure support +10. Tolerating tube feeds. Subjective 09/06: Extubated yesterday. Chest x-ray reveals likely mucous plugging in left lung garcia. Currently on nonrebreather mask. Planning of insomnia and thick secretions that he is unable to cough up. 09/07 Patient s/p reintubation and bronch 09/06 mucous plugs in left main stem bronchus sedated with Diprivan and Fentanyl. Afebrile. For possible trach tomorrow. 09/08 No acute events overnight. Sedated with Diprivan and Fentanyl. Afebrile. For trach today. 09/09 No acute events overnight. Sedated and intubated. s/p trach yesterday for PEG tube placement today. 09/10 Patient remains sedated and on ventilator via trach. s/p EGD yesterday PEG tube couldn't be placed endoscopically due to hernia. Surgery consulted for J-tube placement. Afebrile. 09/11 No acute events overnight. Sedated with diprivan, Fentnayl and intubated. Afebrile. Tolerating tube feeds. Objective Vital Signs Date Time Temp Pulse Resp B/P Pulse Ox O2 Delivery O2 Flow Rate FiO2 09/11/16 06:00 66 09/11/16 04:00 45 09/11/16 04:00 98.7 16 113/67 100 Intake and Output 09/10/16 09/10/16 09/11/16 08:00 16:00 00:00 Intake Total 1056 ml 642 ml 741 ml Output Total 600.0 ml 350 ml 420 ml Balance 456.0 ml 292 ml 321 ml Result Diagram: 09/11/16 0503 09/11/16 0503 Other Results Laboratory Tests Test 09/10/16 09/11/16 12:15 05:03 Hemoglobin 8.8 GM/DL 8.2 GM/DL Hematocrit 26.6 % 23.9 % White Blood Count 7.3 TH/MM3 Red Blood Count 2.63 MIL/MM3 Mean Corpuscular Volume 91.0 FL Mean Corpuscular Hemoglobin 31.4 PG Mean Corpuscular Hemoglobin 34.5 % Concent Red Cell Distribution Width 17.9 % Platelet Count 141 TH/MM3 Mean Platelet Volume 9.2 FL Neutrophils (%) (Auto) 87.4 % Lymphocytes (%) (Auto) 6.5 % Monocytes (%) (Auto) 6.1 % Eosinophils (%) (Auto) 0.0 % Basophils (%) (Auto) 0.0 % Neutrophils # (Auto) 6.4 TH/MM3 Lymphocytes # (Auto) 0.5 TH/MM3 Monocytes # (Auto) 0.4 TH/MM3 Eosinophils # (Auto) 0.0 TH/MM3 Basophils # (Auto) 0.0 TH/MM3 CBC Comment AUTO DIFF Differential Total Cells 100 Counted Neutrophils % (Manual) 82 % Band Neutrophils % 3 % Lymphocytes % 9 % Monocytes % 3 % Neutrophils # (Manual) 6.4 TH/MM3 Metamyelocytes 2 % Myelocytes 1 % Differential Comment FINAL DIFF MANUAL Atypical Lymphocytes % Platelet Estimate LOW Platelet Morphology Comment NORMAL Sodium Level 145 MEQ/L Potassium Level 3.6 MEQ/L Chloride Level 109 MEQ/L Carbon Dioxide Level 27.7 MEQ/L Anion Gap 8 MEQ/L Blood Urea Nitrogen 25 MG/DL Creatinine 0.85 MG/DL Estimat Glomerular Filtration 89 ML/MIN Rate Random Glucose 178 MG/DL Calcium Level 8.1 MG/DL Imaging Last Impressions Chest X-Ray 09/08/16 1325 Signed Impressions: Service Date/Time: Thursday, September 08, 2016 13:37 - CONCLUSION: 1. Interval improvement of the interstitial infiltrates with minimal residual right basilar infiltrate noted. 2. Tracheostomy tube in good position approximately 5 cm above the michele. 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 There is concentric mural thrombus. This aneurysm is not amenable to thrombin injection. Polo Moore Jr., MD Lung Scan- Nuclear Medicine 08/29/16 0000 Signed Impressions: Service Date/Time: Monday, August 29, 2016 10:20 - CONCLUSION: Low probability for pulmonary embolus. Lex Lopez MD Brain MRI 08/27/16 0000 Signed Impressions: Service Date/Time: August 15:13 - CONCLUSION: No evidence of acute infarct, hemorrhage, mass or edema. No findings to suggest significant anoxic injury. Kit Power MD Renal Ultrasound 08/25/16 0000 Signed Impressions: Service Date/Time: Wednesday, August 24, 2016 21:53 - CONCLUSION: 1. There is no hydronephrosis. Both kidneys demonstrate mild increased echotexture of the parenchyma suggesting medical renal disease. 2. Trace perihepatic free fluid and bilateral pleural effusions. Lex Malik MD Chest CT 08/25/16 0000 Signed Impressions: Service Date/Time: Thursday, August 25, 2016 21:20 - CONCLUSION: 1. Bilateral pneumonia and aspiration would be in the differential. There is dependent consolidation/atelectasis and small effusions of the bases as well. 2. Upper limits of normal to mildly enlarged mediastinal lymph nodes, most likely reactive. 3. Coronary artery calcification. 4. Right rib fractures, including acute fractures laterally of the third, fourth and fifth. There are old, healed fractures anteriorly of the right second and third ribs.. Lex Lopez MD Abdomen/Pelvis CT 08/25/16 0000 Signed Impressions: Service Date/Time: Thursday, August 25, 2016 20:20 - CONCLUSION: 1. Ventral hernia containing small bowel and with associated small bowel obstruction. The defect is broad; I believe the obstruction is probably related to scarring and/or adhesions within the hernia sac. I don't see a mass. 2. Distended stomach despite NG tube present. 3. Severe aortoiliac atherosclerosis. No aneurysm. Lex Lopez MD Abdomen X-Ray 08/24/16 0000 Signed Impressions: Service Date/Time: Wednesday, August 24, 2016 17:19 - CONCLUSION: 1. Small bowel dilatation which reflect ileus or obstruction. Followup examination is recommended if clinically indicated. Gareth Escalante MD Objective Remarks GENERAL: Patient is 71 yo intubated and sedated. SKIN: Warm and dry. HEAD: Normocephalic. EYES: No scleral icterus. No injection or drainage. NECK: Supple, trachea midline. No JVD or lymphadenopathy. Trach in place CARDIOVASCULAR: Regular rate and rhythm without murmurs, gallops, or rubs. RESPIRATORY: Breath sounds equal bilaterally. No accessory muscle use. GASTROINTESTINAL: Abdomen soft, non-tender, nondistended. MUSCULOSKELETAL: No cyanosis, +1 edema. Neuro: Sedated and intubated Date of Insertion: Aug 26, 2016 Line: Central Venous Catheter Side: Left Location: Internal, Jugular A/P Assessment and Plan Neuro/Psych: Status post CPR 15 minutes - possible anoxic encephalopathy Depression NOS Monitor neuro status. On Propofol/Fentanyl infusion for sedation, daily sedation vacation Goal of RASS -2. Place on Ativan 1mg Q4 PRN agitation EEG 08/25 revealed mild to moderate encephalopathy. No epileptiform activity. MRI brain 08/27 revealed no acute findings. Cardiovascular: Cardiac arrest status post CPR Elevated troponin History dyslipidemia History of hypertension PVD Systemic shock likely secondary to sepsis/aspiration/small bowel obstruction Possible femoral pseudoaneurysm Monitor HR and BP keep MAP>65mmHg Cardizem 60mg QID Cardiac arrest status post CPR. s/p aggressive fluid resuscitation. 5 units PRBCs transfused to date minimal troponin elevation following cardiac arrest noted. Echo 2D revealed EF 35-40%. Moderate LVH. Mitral valve calcified. Mild TR. Pulmonary: Acute respiratory failure secondary to aspiration pneumonia- Reintubated 09/06 s/p Trach on 09/08 End-stage COPD. Oxygen dependent FEV1 28%, FVC 1.6. s/p reintubation and bronch 09/06 mucous plugs in left main stem bronchus Continue with vent support keep sat >92% Bronchodilators, Pulmicort twice a day Solu-Medrol 40 mEq IV Q12 VQ scan low probability 08/29 ICU vent bundle, pulm toilet, trach care GI. Small bowel obstruction - resolved Upper GI bleed plus esophageal rule out aorto esophageal fistula History of Ashley esophagitis History of colonic polyps History of ventral hernia status post repair last by Dr. Roberts Continue tube feeds- Jevity 1.5@ 40ml/hr s/p EGD 09/09: Deformed pylorus/antrum, nodular mucosa-multiple biopsies taken esophagitis distal esophagus-biopsy unable to place peg endoscopically due to hiatal hernia. Surgery consulted for J tube placement. CT abdomen/pelvis revealed possible small bowel obstruction at level of ventral hernia. Severe aortoiliac disease. Dr. roberts/general surgery evaluated. Very poor surgical candidate this time. EGD 08/25 revealed esophageal nipple. Clots noted within the gastric contents without active bleeding. Protonix for GI prophylaxis Renal/: Acute kidney injury Hypernatremia History of bladder outlet obstruction Monitor renal function, I/O's, electrolytes replacement per protocol. On Free water 300ml Q6 monitor sodium level. No hydronephrosis on CT abdomen/pelvis ID: UTI Sepsis Fungemia Continue abx per ID ( Micafungin) till September 23.monitor for signs of infections ( Fever, WBC) On Levaquin x 7 days. Pertinent cultures 09/08 Bronch: GNR 09/06 Bronch- S. Maltophilia, 09/03 - blood culture - no growth 09/02 - blood culture - no growth 08/27 - blood from central line -Ashley Glabrata 08/27 -arterial line blood - pending 08/26 - sputum -Serratia 08/25 - blood cultures 2 -Ashley 08/25 - urine -no growth 08/22 - blood cultures 2 - no growth 08/21 - urine - no growth 08/20 - blood cultures 2 - 1 out of 4 staph epi Endocrine: Chronic prednisone use secondary to COPD SSI for glycemic control as needed. Heme: s/p Acute blood loss anemia History of prostate cancer Status post 4 units PRBCs ands 2 units FFP on 08/24. Given one unit PRBCs 08/26 Monitor CBC and coags. 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 Level 3 Cal Arias MD Sep 11, 2016 08:35 Cal Arias MD Sep 11, 2016 08:35
--- NOTE | 2016-09-11 09:09 | HHI.IDPN ---
Subjective Subjective Remarks is a 71 y/o CM with COPD and oxygen dependent, Ashley esophagitis, prior h/o pneumonia. According to the since the patient was discharged he continued to have nausea and vomiting. He has not had any bowel movement, and she thinks in the last 3 weeks. Patient started having more weakness, and was getting more short of breath, so the patient presented back to the hospital and was admitted August 20. He was admitted as a COPD exacerbation and pneumonia. He was put on empiric antibiotics. Patient had in hospital cardiorespiratory arrest. He was successfully resuscitated, and intubated. Patient had an A- line in arm, CL in groin which was changed on 08/27/16. 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 Patient continues to have elevated WBC, and is being treated for sepsis secondary to aspiration PNA, Fungemia likely line related (groin line likely now DCed). Notes reviewed D/W RN S/P trach 09/08 On CPAP No candidate for feeding jejunostomy due to large midline hernia Temps ok BP ok, not on pressors Sputum with Sten mal WBC down to normal CRISTHIAN negative Last (+) BC 08/27 with C glabrata First (+) BC with C albicans and C glabrata Follow up BC negative Has pseudoaneurysm R femoral artery Sputum 08/26 with Serratia Antibiotics Levaquin IV Micafungin (for fungal line infection) Lines L I J central line Past Medical History Hypertension COPD O2 dependent prostate cancer Bladder outlet obstruction Hyperlipidemia Past Surgical History Ventral hernia Appendectomy Perforated gastric ulcer surgery Cataract Upper and lower endoscopy Allergies: Coded Allergies: *MDRO Multi-Drug Resistant Organism (Verified Adverse Reaction, Unknown, ) MRSA (abdominal wound) 2015 per 04/10/2015 H&P MRSA PCR Screen #1 NEGATIVE - 08/21/16 Objective . Vital Signs Date Time Temp Pulse Resp B/P Pulse Ox O2 Delivery O2 Flow Rate FiO2 09/11/16 08:24 99 45 09/11/16 06:00 66 09/11/16 04:00 101 09/11/16 04:00 45 09/11/16 04:00 98.7 67 16 113/67 100 09/11/16 04:00 99 45 09/11/16 02:00 87 09/11/16 01:20 100 45 09/11/16 00:00 98.8 78 16 106/64 98 09/11/16 00:00 78 09/11/16 00:00 45 09/10/16 22:00 109 09/10/16 21:42 97 45 09/10/16 20:12 99 45 09/10/16 20:00 45 09/10/16 20:00 98.6 98 19 142/79 97 09/10/16 20:00 98 09/10/16 18:00 120 09/10/16 16:00 97.1 127 16 114/60 92 09/10/16 16:00 40 09/10/16 16:00 127 09/10/16 15:37 92 45 09/10/16 14:00 133 09/10/16 12:00 97.6 126 20 135/89 92 09/10/16 12:00 40 09/10/16 12:00 126 09/10/16 10:41 92 40 09/10/16 10:28 40 09/10/16 10:28 93 40 09/10/16 10:00 119 09/10/16 09:25 95 40 09/10/16 09/10/16 09/11/16 15:00 23:00 07:00 Intake Total 642 ml 741 ml 741 ml Output Total 350 ml 420 ml 410 ml Balance 292 ml 321 ml 331 ml IV Total 398 ml 215 ml 296 ml Tube Feeding 244 ml 526 ml 145 ml Other 300 ml Output Urine Total 350 ml 400 ml 400 ml Stool Total 20 ml 10 ml Tube Feeding Residual Discard 0 ml 0 ml . Laboratory Tests Test 09/10/16 09/10/16 09/11/16 06:17 12:15 05:03 White Blood Count 6.8 TH/MM3 7.3 TH/MM3 Red Blood Count 2.53 MIL/MM3 2.63 MIL/MM3 Hemoglobin 7.7 GM/DL 8.8 GM/DL 8.2 GM/DL Hematocrit 23.4 % 26.6 % 23.9 % Mean Corpuscular Volume 92.5 FL 91.0 FL Mean Corpuscular Hemoglobin 30.5 PG 31.4 PG Mean Corpuscular Hemoglobin 33.0 % 34.5 % Concent Red Cell Distribution Width 17.5 % 17.9 % Platelet Count 134 TH/MM3 141 TH/MM3 Mean Platelet Volume 9.0 FL 9.2 FL Neutrophils (%) (Auto) 81.8 % 87.4 % Lymphocytes (%) (Auto) 9.3 % 6.5 % Monocytes (%) (Auto) 8.6 % 6.1 % Eosinophils (%) (Auto) 0.1 % 0.0 % Basophils (%) (Auto) 0.2 % 0.0 % Neutrophils # (Auto) 5.6 TH/MM3 6.4 TH/MM3 Lymphocytes # (Auto) 0.6 TH/MM3 0.5 TH/MM3 Monocytes # (Auto) 0.6 TH/MM3 0.4 TH/MM3 Eosinophils # (Auto) 0.0 TH/MM3 0.0 TH/MM3 Basophils # (Auto) 0.0 TH/MM3 0.0 TH/MM3 CBC Comment AUTO DIFF AUTO DIFF Differential Total Cells 100 100 Counted Neutrophils % (Manual) 64 % 82 % Band Neutrophils % 14 % 3 % Lymphocytes % 14 % 9 % Monocytes % 6 % 3 % Neutrophils # (Manual) 5.4 TH/MM3 6.4 TH/MM3 Myelocytes 2 % 1 % Differential Comment FINAL DIFF FINAL DIFF MANUAL MANUAL Platelet Estimate LOW LOW Platelet Morphology Comment NORMAL NORMAL Metamyelocytes 2 % Atypical Lymphocytes % Laboratory Tests Test 09/10/16 09/11/16 06:17 05:03 Sodium Level 146 MEQ/L 145 MEQ/L Potassium Level 3.7 MEQ/L 3.6 MEQ/L Chloride Level 110 MEQ/L 109 MEQ/L Carbon Dioxide Level 29.6 MEQ/L 27.7 MEQ/L Anion Gap 6 MEQ/L 8 MEQ/L Blood Urea Nitrogen 27 MG/DL 25 MG/DL Creatinine 0.82 MG/DL 0.85 MG/DL Estimat Glomerular Filtration 93 ML/MIN 89 ML/MIN Rate Random Glucose 127 MG/DL 178 MG/DL Calcium Level 8.3 MG/DL 8.1 MG/DL Microbiology Date/Time Procedure Status Source Growth 09/08/16 13:20 Gram Stain - Final Resulted Bronchial Washings Bronchial 09/08/16 13:20 Bronchial Culture - Preliminary Resulted Gram Negative [facility] Chest X-Ray 09/08/16 1325 Signed Impressions: Service Date/Time: Thursday, September 08, 2016 13:37 - CONCLUSION: 1. Interval improvement of the interstitial infiltrates with minimal residual right basilar infiltrate noted. 2. Tracheostomy tube in good position approximately 5 cm above the michele. Lui Kim MD Chest X-Ray 09/06/16 0000 Signed Impressions: Service Date/Time: Tuesday, September 06, 2016 13:49 - CONCLUSION: 1. Interval intubation and placement of nasogastric tube. 2. Volume loss again noted left hemithorax with mediastinal shift. There is coarse infiltrate remaining in the left lung. Ian Horton MD Chest X-Ray 09/06/16 0000 Signed Impressions: Service Date/Time: Tuesday, September 06, 2016 08:50 - CONCLUSION: 1. Increasing density throughout the left hemithorax with volume loss suggesting mucus plugging. Eduardo Mcconnell MD Chest X-Ray 09/05/16 0500 Signed Impressions: Service Date/Time: Monday, September 05, 2016 03:49 - CONCLUSION: 1. Basilar airspace disease similar to prior exam. Support apparatus unchanged. Eleazar Jimenez MD Chest X-Ray 09/05/16 0500 Signed Impressions: Service Date/Time: Monday, September 05, 2016 03:49 - CONCLUSION: 1. Basilar airspace disease similar to prior exam. Support apparatus unchanged. Eleazar Jimenez MD Chest X-Ray 09/01/16 0600 Signed Impressions: Service Date/Time: Thursday, September 01, 2016 03:19 - CONCLUSION: No significant interval change in bilateral pulmonary parenchymal opacity and small bilateral pleural effusions. 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 There is concentric mural thrombus. This aneurysm is not amenable to thrombin injection. Polo Moore Jr., MD Chest X-Ray 08/27/16 0600 Signed Impressions: Service Date/Time: August 02:27 - CONCLUSION: 1. Patchy bilateral airspace disease with improving aeration/decreasing effusions in the bases bilaterally. 2. Stable position of life support tubes. Con Valdes MD Chest X-Ray 08/26/16 0754 Signed Impressions: Service Date/Time: Friday, August 26, 2016 08:14 - CONCLUSION: Left IJ central line distal tip in the SVC. No pneumothorax is visualized. There is a stable appearance the lungs with bilateral airspace consolidation. Lex Malik MD Chest X-Ray 08/26/16 0600 Signed Impressions: Service Date/Time: Friday, August 26, 2016 04:01 - CONCLUSION: 1. Worsening bibasilar effusions/atelectasis with diffuse interstitial edema, all characteristic of CHF. 2. Endotracheal tube remains appropriately positioned above the michele Con Valdes MD Chest X-Ray 08/26/16 0754 Signed Impressions: Service Date/Time: Friday, August 26, 2016 08:14 - CONCLUSION: Left IJ central line distal tip in the SVC. No pneumothorax is visualized. There is a stable appearance the lungs with bilateral airspace consolidation. Lex Malik MD Renal Ultrasound 08/25/16 0000 Signed Impressions: Service Date/Time: Wednesday, August 24, 2016 21:53 - CONCLUSION: 1. There is no hydronephrosis. Both kidneys demonstrate mild increased echotexture of the parenchyma suggesting medical renal disease. 2. Trace perihepatic free fluid and bilateral pleural effusions. Lex Malik MD Chest CT 08/25/16 0000 Signed Impressions: Service Date/Time: Thursday, August 25, 2016 21:20 - CONCLUSION: 1. Bilateral pneumonia and aspiration would be in the differential. There is dependent consolidation/atelectasis and small effusions of the bases as well. 2. Upper limits of normal to mildly enlarged mediastinal lymph nodes, most likely reactive. 3. Coronary artery calcification. 4. Right rib fractures, including acute fractures laterally of the third, fourth and fifth. There are old, healed fractures anteriorly of the right second and third ribs.. Lex Lopez MD Abdomen/Pelvis CT 08/25/16 0000 Signed Impressions: Service Date/Time: Thursday, August 25, 2016 20:20 - CONCLUSION: 1. Ventral hernia containing small bowel and with associated small bowel obstruction. The defect is broad; I believe the obstruction is probably related to scarring and/or adhesions within the hernia sac. I don't see a mass. 2. Distended stomach despite NG tube present. 3. Severe aortoiliac atherosclerosis. No aneurysm. Lex Lopez MD Abdomen X-Ray 08/24/16 0000 Signed Impressions: Service Date/Time: Wednesday, August 24, 2016 17:19 - CONCLUSION: 1. Small bowel dilatation which reflect ileus or obstruction. Followup examination is recommended if clinically indicated. Gareth Escalante MD Physical Exam GENERAL: awake, following, on the vent, NAD. On CPAP. On restraints SKIN: Warm and dry. No generalized rash HEENT: Full EOM. No scleral icterus. Moist oral mucosa, with dried crusted blood, some ulcers in tongue NECK: Trach site ok. Supple. LIJ TLC looks ok CARDIOVASCULAR: Regular rate and rhythm without murmurs, gallops, or rubs. RESPIRATORY: Decreased breath sounds throughout both lung garcia. GASTROINTESTINAL: Abdomen soft, not tender, not distended. Has a large midline hernia reducible. Has midline scar. No redness or tenderness noted in R groin MUSCULOSKELETAL: Extremities without clubbing, cyanosis. Edema better NEUROLOGICAL: Awake, non-focal PSYCH: Cooperative LINE: LIJ TLC no evidence of infection. Assessment & Plan Remarks IMPRESSION Sepsis present on admission and then sepsis again. Better Central line associated blood stream infection (CLABSI) related fungemia ( likely groin line) now discontinued. Arterial line discontinued as well. 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 - S/P Rx Now with Sten mal in sputum Recurrent respiratory failure, due to mucus plugging - S/P bronch Diarrhea ? Cdiff vs antibiotic associated. Status post cardiorespiratory arrest, likely aspirated Findings SBO within the hernia on CT A/P, clinically better Acute respiratory failure, extubated 09/05 - reintubated 09/06 GI bleed, stable Leukocytosis, up again, reactive due to resp decompensation COPD, oxygen dependent Previous GI bleed with workup showing gastritis, Ashley esophagitis, and polyps Large incisional ventral hernia Bladder outlet obstruction, currently has a Hammond Renal insufficiency RECOMMENDATION Continue Micafungin IV (C.glabrata fungemia) - plan at least 4 weeks from date of last (+) BC which is 08/27 - anticipated end date is September 23 Levaquin x 7 days PICC Monitor progress Has possible pseudoaneurysm at site of femoral line, and will likely treat for 4 weeks with antifungal. Weaning per CCM D/W RN Dr Juan Espinoza available this weekend if needed Dimayuga,Nuha G MD Sep 11, 2016 09:08
[2016-09-11] MEDS: LORazepam 2 MG/ML VIAL IV PUSH PRN ×2 (09:24→12:38)
--- NOTE | 2016-09-11 10:40 | HHI.PR ---
Subjective Subjective Notes Resting in bed RN at bedside said patient has just started CPAP trial Objective Vitals/I&O Vital Signs Date Time Temp Pulse Resp B/P Pulse Ox O2 Delivery O2 Flow Rate FiO2 09/11/16 10:00 104 09/11/16 08:24 99 45 09/11/16 08:00 98.0 23 161/88 Labs Laboratory Tests Test 09/10/16 09/11/16 12:15 05:03 Hemoglobin 8.8 8.2 Hematocrit 26.6 23.9 White Blood Count 7.3 Red Blood Count 2.63 Mean Corpuscular Volume 91.0 Mean Corpuscular Hemoglobin 31.4 Mean Corpuscular Hemoglobin 34.5 Concent Red Cell Distribution Width 17.9 Platelet Count 141 Mean Platelet Volume 9.2 Neutrophils (%) (Auto) 87.4 Lymphocytes (%) (Auto) 6.5 Monocytes (%) (Auto) 6.1 Eosinophils (%) (Auto) 0.0 Basophils (%) (Auto) 0.0 Neutrophils # (Auto) 6.4 Lymphocytes # (Auto) 0.5 Monocytes # (Auto) 0.4 Eosinophils # (Auto) 0.0 Basophils # (Auto) 0.0 CBC Comment AUTO DIFF Differential Total Cells 100 Counted Neutrophils % (Manual) 82 Band Neutrophils % 3 Lymphocytes % 9 Monocytes % 3 Neutrophils # (Manual) 6.4 Metamyelocytes 2 Myelocytes 1 Differential Comment FINAL DIFF MANUAL Atypical Lymphocytes Platelet Estimate LOW Platelet Morphology Comment NORMAL Sodium Level 145 Potassium Level 3.6 Chloride Level 109 Carbon Dioxide Level 27.7 Anion Gap 8 Blood Urea Nitrogen 25 Creatinine 0.85 Estimat Glomerular Filtration 89 Rate Random Glucose 178 Calcium Level 8.1 Date/Time Procedure Status Source Growth 09/08/16 13:20 Gram Stain - Final Resulted Bronchial Washings Bronchial 09/08/16 13:20 Bronchial Culture - Preliminary Resulted Gram Negative Alec 09/06/16 14:00 Fungal Smear - Final Resulted Bronchial Washings Right Mid Lobe NO FUNGAL ELEMENTS SEEN. 09/06/16 14:00 Fungal Culture - Preliminary Resulted Bronchial Washings Right Mid Lobe 09/06/16 14:00 Acid Fast Stain - Final Resulted Bronchial Washings Right Mid Lobe NO ACID FAST BACILLI SEEN 09/06/16 14:00 Mycobacterial Culture Resulted Bronchial Washings Right Mid Lobe Pending Cardiovascular: Regular Lungs: Clear Abdomen: Non-distended, Non-tender Extremities: No edema A/P Assessment and Plan 71 year old male s/p cardiac arrest with SBO versus ileus; patient known to Dr. Roberts for large ventral hernia -s/p trach placement; on CPAP trial -Continue NGT and hold off on permanent feeding placement while weaning off vent -+BM -Discussed with Dr. Sanders I CERTIFY AND ATTEST THAT I PERSONALLY EXAMINED THIS PATIENT IN THEIR ROOM WITH THE VENUE COORDINATOR PRESENT. MS CERVANTES IS DOCUMENTING OUR VISIT IN THE EMR AND ENTERED ORDERS UNDER MY DIRECT SUPERVISION. I DISCUSSED THE CARE PLAN WITH THE PATIENT AND THEIR [facility] ST[facility]FF. Olivia Cope MD, FACSP Sep 11, 2016 10:40 Jon Roberts MD Sep 19, 2016 13:39
[2016-09-11] MEDS ORDERED: SODIUM CHLORIDE 0.9% FLUSH 10 ML FLUSH IV FLUSH PRN (13:30)
[2016-09-11] MEDS: LEVOFLOXACIN 750 MG PREMIX INJ 150 ML IV SCH (13:33)
[2016-09-11] MEDS: MICAFUNGIN INJ 100 MG in SODIUM CHLORIDE 0.9% INJ 100 ML IV SCH (13:33)
--- NOTE | 2016-09-11 14:32 | RADRPT ---
EXAM DATE/TIME: 09/11/2016 13:43 [facility] COMPARISON: CHEST SINGLE AP, September 08, 2016, 13:37. INDICATIONS : PICC line placement. MEDICAL HISTORY : Chronic obstructive pulmonary disease. Emphysema SURGICAL HISTORY : None. ENCOUNTER: Initial ACUITY: 1 month PAIN SCORE: Non-responsive. LOCATION: Bilateral chest FINDINGS: Tracheostomy is present good position. Nasogastric tube descends into the stomach. Right arm PICC carrol e is present with tip overlying SVC. Hazy bibasilar pleural-parenchymal opacities are similar to prio r. Cardiac contours are grossly stable. CONCLUSION: Satisfactory PICC line position Lex Kaur MD on September 11, 2016 at 14:29 Board Certified Radiologist. This report was verified electronically.
--- NOTE | 2016-09-11 15:17 | HHI.GIFU ---
Subjective Remarks Resting in bed. He is on CPAP, awake, following commands. Tolerating TF. ( Ronna Aldrich) Objective Vitals I&O Vital Signs Date Time Temp Pulse Resp B/P Pulse Ox O2 Delivery O2 Flow Rate FiO2 09/11/16 15:04 98 45 09/11/16 14:00 91 09/11/16 13:18 97.8 107 20 155/100 98 09/11/16 12:00 45 09/11/16 12:00 90 09/11/16 11:52 96 45 09/11/16 10:00 104 09/11/16 08:30 98 09/11/16 08:24 99 45 09/11/16 08:00 45 09/11/16 08:00 98.0 106 23 161/88 97 09/11/16 08:00 106 09/11/16 06:00 66 09/11/16 04:00 101 09/11/16 04:00 45 09/11/16 04:00 98.7 67 16 113/67 100 09/11/16 04:00 99 45 09/11/16 02:00 87 09/11/16 01:20 100 45 09/11/16 00:00 98.8 78 16 106/64 98 09/11/16 00:00 78 09/11/16 00:00 45 09/10/16 22:00 109 09/10/16 21:42 97 45 09/10/16 20:12 99 45 09/10/16 20:00 45 09/10/16 20:00 98.6 98 19 142/79 97 09/10/16 20:00 98 09/10/16 18:00 120 09/10/16 16:00 97.1 127 16 114/60 92 09/10/16 16:00 40 09/10/16 16:00 127 09/10/16 15:37 92 45 I/O 09/10/16 09/10/16 09/10/16 09/11/16 09/11/16 09/11/16 07:00 15:00 23:00 07:00 15:00 23:00 Intake Total 1056 ml 642 ml 741 ml 741 ml Output Total 600 ml 350 ml 420 ml 410 ml 0 ml Balance 456 ml 292 ml 321 ml 331 ml 0 ml IV Total 688 ml 398 ml 215 ml 296 ml Tube Feeding 68 ml 244 ml 526 ml 145 ml Other 300 ml 300 ml Output Urine Total 600 ml 350 ml 400 ml 400 ml Stool Total 20 ml 10 ml Tube Feeding Residual Discard 0 ml 0 ml 0 ml 0 ml # Bowel Movements 1 Laboratory Laboratory Tests Test 09/11/16 05:03 White Blood Count 7.3 Red Blood Count 2.63 Hemoglobin 8.2 Hematocrit 23.9 Mean Corpuscular Volume 91.0 Mean Corpuscular Hemoglobin 31.4 Mean Corpuscular Hemoglobin 34.5 Concent Red Cell Distribution Width 17.9 Platelet Count 141 Mean Platelet Volume 9.2 Neutrophils (%) (Auto) 87.4 Lymphocytes (%) (Auto) 6.5 Monocytes (%) (Auto) 6.1 Eosinophils (%) (Auto) 0.0 Basophils (%) (Auto) 0.0 Neutrophils # (Auto) 6.4 Lymphocytes # (Auto) 0.5 Monocytes # (Auto) 0.4 Eosinophils # (Auto) 0.0 Basophils # (Auto) 0.0 CBC Comment AUTO DIFF Differential Total Cells 100 Counted Neutrophils % (Manual) 82 Band Neutrophils % 3 Lymphocytes % 9 Monocytes % 3 Neutrophils # (Manual) 6.4 Metamyelocytes 2 Myelocytes 1 Differential Comment FINAL DIFF MANUAL Atypical Lymphocytes Platelet Estimate LOW Platelet Morphology Comment NORMAL Sodium Level 145 Potassium Level 3.6 Chloride Level 109 Carbon Dioxide Level 27.7 Anion Gap 8 Blood Urea Nitrogen 25 Creatinine 0.85 Estimat Glomerular Filtration 89 Rate Random Glucose 178 Calcium Level 8.1 Date/Time Procedure Status Source Growth 09/08/16 13:20 Gram Stain - Final Resulted Bronchial Washings Bronchial 09/08/16 13:20 Bronchial Culture - Preliminary Resulted Gram Negative [facility] Last Impressions Chest X-Ray 09/11/16 0000 Signed Impressions: Service Date/Time: Sunday, September 11, 2016 13:43 - CONCLUSION: Satisfactory PICC line position Lex Kaur MD Lower Extremity Ultrasound 09/01/16 0000 Signed Impressions: Service Date/Time: Thursday, September 01, 2016 12:33 - CONCLUSION: 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 There is concentric mural thrombus. This aneurysm is not amenable to thrombin injection. Polo Moore Jr., MD Lung Scan- Nuclear Medicine 08/29/16 0000 Signed Impressions: Service Date/Time: Monday, August 29, 2016 10:20 - CONCLUSION: Low probability for pulmonary embolus. Lex Lopez MD Brain MRI 08/27/16 0000 Signed Impressions: Service Date/Time: August 15:13 - CONCLUSION: No evidence of acute infarct, hemorrhage, mass or edema. No findings to suggest significant anoxic injury. Kit Power MD Renal Ultrasound 08/25/16 0000 Signed Impressions: Service Date/Time: Wednesday, August 24, 2016 21:53 - CONCLUSION: 1. There is no hydronephrosis. Both kidneys demonstrate mild increased echotexture of the parenchyma suggesting medical renal disease. 2. Trace perihepatic free fluid and bilateral pleural effusions. Lex Malik MD Chest CT 08/25/16 0000 Signed Impressions: Service Date/Time: Thursday, August 25, 2016 21:20 - CONCLUSION: 1. Bilateral pneumonia and aspiration would be in the differential. There is dependent consolidation/atelectasis and small effusions of the bases as well. 2. Upper limits of normal to mildly enlarged mediastinal lymph nodes, most likely reactive. 3. Coronary artery calcification. 4. Right rib fractures, including acute fractures laterally of the third, fourth and fifth. There are old, healed fractures anteriorly of the right second and third ribs.. Lex Lopez MD Abdomen/Pelvis CT 08/25/16 0000 Signed Impressions: Service Date/Time: Thursday, August 25, 2016 20:20 - CONCLUSION: 1. Ventral hernia containing small bowel and with associated small bowel obstruction. The defect is broad; I believe the obstruction is probably related to scarring and/or adhesions within the hernia sac. I don't see a mass. 2. Distended stomach despite NG tube present. 3. Severe aortoiliac atherosclerosis. No aneurysm. Lex Lopez MD Abdomen X-Ray 08/24/16 0000 Signed Impressions: Service Date/Time: Wednesday, August 24, 2016 17:19 - CONCLUSION: 1. Small bowel dilatation which reflect ileus or obstruction. Followup examination is recommended if clinically indicated. Gareth Escalante MD Physical Exam HEENT: Normocephalic; atraumatic; no jaundice. Scant amount of red blood, some sores to lips. CHEST: Resp even. diminished. Tracheostomy. Course breath sounds. CARDIAC: RRR ABDOMEN: Soft, nondistended, no hepatosplenomegaly; bowel sounds are present x 4 quadrants. Large ventral hernia reducible. Generalized edema SKIN: Skin cool to touch, dry LINE TESTER: Sedated on vent. (Ronna Aldrich) Assessment and Plan Plan ASSESSMENT: - Reconsulted for PEG tube placement. S/P tracheostomy placement today. S/P EGD, Unsuccessful PEG tube placement (09/09/16)---> defromed pylorus/antrum, nodular mucosa-multiple biopsies taken, esophagitis distal esophagus, transillumination seen in the hernia sac, unable to place peg endoscopically, retroflexed views revealed a hiatal hernia. S/P GS evaluation for J tube placement, do not feel that they can place this. Pt is currently awake/alert on CPAP. Per nurse, they are hoping he will soon be extubated. Will continue TF via NGT and hopefully he will be extubated soon and pass his swallow evaluation. - Massive GIB with older appearing dark maroon gastric secretions. IMPROVED. Pt is s/p CODE BLUE, vomiting large amount of dark maroon secretions on 08/24 and HH dropped to 5.4/16.7. According to the chart , he has a hx of perforated gastric ulcer. Recent EGD (08/10/16)---> mild gastritis, nodules in the EG junction, moderate esophagitis, normal endoscopy otherwise, retroflexed views revealed no abnormalities. Pathology revealed mild active chronic gastritis, nodule GE junction with gastric mucosa with mild chronic inflammation of the lamina propria and foveolar hyperplasia, acutely inflamed squamous mucosa and detached fragments of acute inflammatory exudate multiple budding yeast and pseudohyphae are present in exudate, acutely ulcerated mucosa of distal esophagus with numerous budding yeast and pseudohyphae invading tissue, consistent with mary kay esophagitis. Colonoscopy (08/11/16) with polypectomy and ablation of polyp in ascending colon with hot snare. Ascending colon with markedly cauterized colonic mucosa with features suggestive of hyperplastic polyp. S/P EGD (08/26/16)-----> Proximal esophageal lesion possibly vascular in nature , Incomplete evaluation of the stomach, Deformed pylorus. S/P CT chest (08/25/16)-----> 1. Bilateral pneumonia and aspiration would be in the differential. There is dependent consolidation/atelectasis and small effusions of the bases as well. 2. Upper limits of normal to mildly enlarged mediastinal lymph nodes, most likely reactive. 3. Coronary artery calcification. 4. Right rib fractures, including acute fractures laterally of the third, fourth and fifth. There are old, healed fractures anteriorly of the right second and third ribs. At this time, he does not appear to be having active bleeding. Okay to start TF. Possible EGD next week. Protonix Gtt. Micafungin. Not having active GI bleeding at this time. - Anemia secondary acute blood loss. S/P 5 units PRBC, 2 units FFP. HH has since remained stable. 9.0/26.7. - Ileus vs. Bowel obstruction. RESOLVED Abdomen X-Ray (08/24/16)---> 1. Small bowel dilatation which reflect ileus or obstruction. Followup examination is recommended if clinically indicated. Abdomen/Pelvis CT (08/25/16)----> 1. Ventral hernia containing small bowel and with associated small bowel obstruction. The defect is broad; I believe the obstruction is probably related to scarring and/or adhesions within the hernia sac. I don't see a mass. 2. Distended stomach despite NG tube present. 3. Severe aortoiliac atherosclerosis. No aneurysm. GS following, known to Dr. Roberts. GS following. Abdominal distention much improved, soft, nondistended. Large ventral hernia- reducible. RESOLVED. - Recent mary kay esophagitis/Bcx with yeast. Micafungin per ID - S/P CODE BLUE (08/24). Pt with ROSC after 15 MN. . - Acute respiratory failure with COPD and suspected HCAP. Required reintubation. S/P tracheostomy today. - Large Ventral hernia, reducible. per Dr. Roberts - Sepsis, Severe leukocytosis, improving. Rpt Bx growing yeast. ID following. Abx Zosyn, micafungin, PLAN: - Cont. TF via NGT - GI will sign off, please reconsult as needed - Patient seen and examined by and myself and this note is written on her behalf (Ronna Aldrich) Physician Comments seen, examined agree with above (Nusrat Sanders MD) Ronna Aldrich Sep 11, 2016 15:17 Nusrat Sanders MD Sep 11, 2016 16:45
[2016-09-12] VITALS (18 sets, daily range): BP systolic 107–181; BP diastolic 65–103; PULSE 63–120; RESP 16–26; TEMP 98.6–99.7; O2SAT 96–100
[2016-09-12] MEDS: methylPREDNISolone SOD SUCC 40 MG/1 ML VIAL IV PUSH SCH ×2 (02:23→16:53)
[2016-09-12] MEDS: RESP: ALBUTEROL 2.5 MG/IPRATROPIUM 0.5 MG NEB (PRN) INH ×4 (03:49→20:27)
[2016-09-12] MEDS: RESP: ACETYLCYSTEINE 10% 30 ML NEB NEB SCH ×3 (03:50→16:00)
[2016-09-12] MEDS: FREE WATER G-TUBE SCH ×3 (05:12→17:11)
[2016-09-12] MEDS: INSULIN NovoLIN REGULAR SUPPLEMENTAL SCALE SQ SCH ×4 (05:12→17:11)
[2016-09-12 06:55] LABS: AUTOMATED NEUTROPHIL # 6.1 TH/MM3 (1.8-7.7); BASOPHIL % 0.3 % (0.0-2.0); HEMATOCRIT 21.8 % (39.0-51.0); LYMPH % 4.2 % (9.0-44.0); LYMPHOCYTE # 0.3 TH/MM3 (1.0-4.8); MEAN CELL VOLUME 92.5 FL (80.0-100.0); MEAN CORPUSCULAR HEMOGLOBIN 30.7 PG (27.0-34.0); MEAN CORPUSCULAR HGB CONC 33.2 % (32.0-36.0); MONO % 3.7 % (0.0-8.0); NEUT % 91.8 % (16.0-70.0); PLATELET COUNT 118 TH/MM3 (150-450); RED BLOOD COUNT 2.36 MIL/MM3 (4.50-5.90); RED CELL DISTRIBUTION WIDTH 18.4 % (11.6-17.2); WHITE BLOOD COUNT 6.6 TH/MM3 (4.0-11.0)
[2016-09-12 06:56] LABS: HEMO FLAGS AUTO DIFF
[2016-09-12 07:12] LABS: BICARBONATE 29.8 MEQ/L (21.0-32.0); MAGNESIUM 1.4 MG/DL (1.5-2.5); POTASSIUM 3.6 MEQ/L (3.5-5.1)
--- NOTE | 2016-09-12 08:13 | HHI.CCPN ---
Subjective Remarks/Hospital Course 08/24: 71 Year-old male with a medical history significant for COPD on home oxygen who was recently admitted with suspected sepsis/H And was initiated on IV antibiotics and steroids. He had recently been evaluated by GI and underwent EGD on 08/10/2016 and was found to have moderate esophagitis, mild gastritis with pathology subsequently showing Ashley esophagitis as well as colonoscopy on 08/11/2016 with polypectomy and ablation of polyp in ascending colon with hot snare. Patient has been dealing with constipation since his admission. Today when he was trying to have a bowel movement he suddenly became less responsive and then had a large emesis which resulted in aspiration and hemodynamic collapse. Patient initially had large volume emesis with dark maroon blood. CODE BLUE cardiac arrest code was activated. On my arrival patient was in bed CPR had been initiated. Significant gastric contents was still being suctioned out of his oral cavity. ACLS protocol was continued. Patient was intubated following vigorous suctioning of gastric contents from oral cavity as well as with placement of NG tube which is hooked up to suction and about 1.5 L of gastric contents being suctioned out which appeared to be dark maroon in color. Patient initially had a pulse when CODE BLUE was called and subsequently went in PEA arrest followed by asystole during ACLS and then V. fib for which he was defibrillated with 200 J 1, CPR/ACLS protocol was continued and patient eventually had return of spontaneous circulation after about 15 minutes of CPR/ACLS. Patient was transferred to [facility] and placed on mechanical ventilation. I emergently placed left femoral central line for central vascular access and he was started on Levophed for pressor support. 2 units of O- 1 crossmatch blood were ordered and transfused stat. He also received 1 L of normal saline bolus following return of spontaneous circulation. Stat labs were ordered. His hemoglobin on ABG done post resuscitation was 5.6. I did order Protonix 80 mg IV stat followed by 8 mg per hour IV infusion. Patient remained encephalopathic though was minimally responsive following transfer to the ICU. GI consult was requested and I spoke with Dr. aZmarripa at bedside on his arrival. History was obtained by reviewing records, discussion with family/ GI as well as nursing staff. According to patient's daughter he has not been doing well for the last few months in terms of his breathing and has been using his home oxygen more often. He gets extremely short of breath even with the least exertion. 08/25: Remains encephalopathic/ sedated, [facility]. Transiently off levophed last night however back to 11 mcg/min currently. Hgb up to 9.4 following 4 units PRBCs transfused last night. 08/26: Tmax 99. Some unresponsive on the ventilator. CT abdomen/pelvis less than revealed small bowel obstruction at site of ventral hernia. No further bleeding noted. Gastric output approximately 700 cc. No bowel movement. 08/27: Tmax 99.7. Currently afebrile. Positive BM overnight approximately 1 L according to RN. No blood noted. 100 cc from gastric tube overnight. Hemoglobin corrected a properly. Likely dilutional. Noted fungemia currently issue. Opens eyes to voice. 08/28: Tmax 99.1. No BMs overnight. Minimal gastric tube output. Hemoglobin stable 9.5. Opens eyes to voice. Not following commands. Appears with singultus this morning. 08/29: 20 beat run of wide complex tachycardia overnight. Noted potassium 3.2. This is been replaced. We'll recheck this afternoon. Circuit exchange yesterday. Patient tolerating pressure control ventilation much better than PRVC/AC ventilation is low probably VQ scan. Less FiO2 requirements. No BM past 24 hour. 08/30: Unable to wean ventilator. 08/31: Patient was extubated on 08/30 however became tachypneic with use of accessory muscles of respiration and required reintubation around 6:30 PM last night and was placed back on mechanical ventilation. Currently sedated, orally intubated on mechanical ventilation. Post intubation chest x-ray suggested fluid overload for which she was given Lasix 40 mg IV with good response having made about 2.5 L urine the last 7 hours. 09/01: Remains sedated, orally intubated on mechanical ventilation. Diuresing well with Lasix. Awaiting EGD in a.m. 09/02: Little progress. CXR clearing nicely. Continue diuresis, tolerate hypernatremia. 09/03: Good diuretic response. CRISTHIAN today with no valvar pathology. 09/04: Too weak to tolerate extubation. Will require trach. 09/05: Sedated, arousable, following commands. Tolerated C Pap trial for 9 hours yesterday with pressure support +10. Tolerating tube feeds. Subjective 09/06: Extubated yesterday. Chest x-ray reveals likely mucous plugging in left lung garcia. Currently on nonrebreather mask. Planning of insomnia and thick secretions that he is unable to cough up. 09/07 Patient s/p reintubation and bronch 09/06 mucous plugs in left main stem bronchus sedated with Diprivan and Fentanyl. Afebrile. For possible trach tomorrow. 09/08 No acute events overnight. Sedated with Diprivan and Fentanyl. Afebrile. For trach today. 09/09 No acute events overnight. Sedated and intubated. s/p trach yesterday for PEG tube placement today. 09/10 Patient remains sedated and on ventilator via trach. s/p EGD yesterday PEG tube couldn't be placed endoscopically due to hernia. Surgery consulted for J-tube placement. Afebrile. 09/11 No acute events overnight. Sedated with Diprivan, Fentanyl and intubated. Afebrile. Tolerating tube feeds. 09/12 Patient is off Diprivan remains on Fentanyl infusion tolerated CPAP trials for several hrs and TP's x 2 hrs yesterday now on TP with 50% FIO2. Afebrile. Objective Vital Signs Date Time Temp Pulse Resp B/P Pulse Ox O2 Delivery O2 Flow Rate FiO2 09/12/16 06:40 100 T-piece 50 09/12/16 06:00 63 09/12/16 04:00 99.0 16 139/78 Intake and Output 09/11/16 09/11/16 09/12/16 08:00 16:00 00:00 Intake Total 741 ml 911 ml 554 ml Output Total 410.0 ml 800 ml 420 ml Balance 331.0 ml 111 ml 134 ml Result Diagram: 09/12/16 0600 09/12/16 06 Other Results Laboratory Tests Test 09/12/16 06:00 White Blood Count 6.6 TH/MM3 Red Blood Count 2.36 MIL/MM3 Hemoglobin 7.2 GM/DL Hematocrit 21.8 % Mean Corpuscular Volume 92.5 FL Mean Corpuscular Hemoglobin 30.7 PG Mean Corpuscular Hemoglobin 33.2 % Concent Red Cell Distribution Width 18.4 % Platelet Count 118 TH/MM3 Mean Platelet Volume 9.7 FL Neutrophils (%) (Auto) 91.8 % Lymphocytes (%) (Auto) 4.2 % Monocytes (%) (Auto) 3.7 % Eosinophils (%) (Auto) 0.0 % Basophils (%) (Auto) 0.3 % Neutrophils # (Auto) 6.1 TH/MM3 Lymphocytes # (Auto) 0.3 TH/MM3 Monocytes # (Auto) 0.2 TH/MM3 Eosinophils # (Auto) 0.0 TH/MM3 Basophils # (Auto) 0.0 TH/MM3 CBC Comment AUTO DIFF Sodium Level 146 MEQ/L Potassium Level 3.6 MEQ/L Chloride Level 109 MEQ/L Carbon Dioxide Level 29.8 MEQ/L Anion Gap 7 MEQ/L Blood Urea Nitrogen 24 MG/DL Creatinine 0.72 MG/DL Estimat Glomerular Filtration 108 ML/MIN Rate Random Glucose 187 MG/DL Calcium Level 7.9 MG/DL Phosphorus Level 1.8 MG/DL Magnesium Level 1.4 MG/DL Imaging Last Impressions Chest X-Ray 09/11/16 0000 Signed Impressions: Service Date/Time: Sunday, September 11, 2016 13:43 - CONCLUSION: Satisfactory PICC line position Lex Kaur MD Lower Extremity Ultrasound 09/01/16 0000 Signed Impressions: Service Date/Time: Thursday, September 01, 2016 12:33 - CONCLUSION: 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 There is concentric mural thrombus. This aneurysm is not amenable to thrombin injection. Polo Moore Jr., MD Lung Scan-V Nuclear Medicine 08/29/16 0000 Signed Impressions: Service Date/Time: Monday, August 29, 2016 10:20 - CONCLUSION: Low probability for pulmonary embolus. Lex Lopez MD Brain MRI 08/27/16 0000 Signed Impressions: Service Date/Time: August 15:13 - CONCLUSION: No evidence of acute infarct, hemorrhage, mass or edema. No findings to suggest significant anoxic injury. Kit Power MD Renal Ultrasound 08/25/16 0000 Signed Impressions: Service Date/Time: Wednesday, August 24, 2016 21:53 - CONCLUSION: 1. There is no hydronephrosis. Both kidneys demonstrate mild increased echotexture of the parenchyma suggesting medical renal disease. 2. Trace perihepatic free fluid and bilateral pleural effusions. Lex Malik MD Chest CT 08/25/16 0000 Signed Impressions: Service Date/Time: Thursday, August 25, 2016 21:20 - CONCLUSION: 1. Bilateral pneumonia and aspiration would be in the differential. There is dependent consolidation/atelectasis and small effusions of the bases as well. 2. Upper limits of normal to mildly enlarged mediastinal lymph nodes, most likely reactive. 3. Coronary artery calcification. 4. Right rib fractures, including acute fractures laterally of the third, fourth and fifth. There are old, healed fractures anteriorly of the right second and third ribs.. Lex Lopez MD Abdomen/Pelvis CT 08/25/16 0000 Signed Impressions: Service Date/Time: Thursday, August 25, 2016 20:20 - CONCLUSION: 1. Ventral hernia containing small bowel and with associated small bowel obstruction. The defect is broad; I believe the obstruction is probably related to scarring and/or adhesions within the hernia sac. I don't see a mass. 2. Distended stomach despite NG tube present. 3. Severe aortoiliac atherosclerosis. No aneurysm. Lex Lopez MD Abdomen X-Ray 08/24/16 0000 Signed Impressions: Service Date/Time: Wednesday, August 24, 2016 17:19 - CONCLUSION: 1. Small bowel dilatation which reflect ileus or obstruction. Followup examination is recommended if clinically indicated. Gareth Escalante MD Objective Remarks GENERAL: Patient is 71 yo lying in bed in NAD. On TP's with 50% FIO2. SKIN: Warm and dry. HEAD: Normocephalic. EYES: No scleral icterus. No injection or drainage. NECK: Supple, trachea midline. No JVD or lymphadenopathy. Trach in place CARDIOVASCULAR: Regular rate and rhythm without murmurs, gallops, or rubs. RESPIRATORY: Breath sounds equal bilaterally. No accessory muscle use. GASTROINTESTINAL: Abdomen soft, non-tender, nondistended. MUSCULOSKELETAL: No cyanosis, +1 edema. Neuro: Awake. Date of Insertion: Aug 26, 2016 Line: Central Venous Catheter Side: Left Location: Internal, Jugular A/P Assessment and Plan Neuro/Psych: Status post CPR 15 minutes - possible anoxic encephalopathy Depression NOS Monitor neuro status. On Fentanyl infusion for sedation, daily sedation vacation Goal of RASS -2. Ativan 1mg Q4 PRN agitation EEG 08/25 revealed mild to moderate encephalopathy. No epileptiform activity. MRI brain 08/27 revealed no acute findings. Cardiovascular: Cardiac arrest status post CPR Elevated troponin History dyslipidemia History of hypertension PVD Systemic shock likely secondary to sepsis/aspiration/small bowel obstruction Possible femoral pseudoaneurysm Monitor HR and BP keep MAP>65mmHg Cardizem 60mg QID Cardiac arrest status post CPR. s/p aggressive fluid resuscitation. 5 units PRBCs transfused to date minimal troponin elevation following cardiac arrest noted. Echo 2D revealed EF 35-40%. Moderate LVH. Mitral valve calcified. Mild TR. Pulmonary: Acute respiratory failure secondary to aspiration pneumonia- Reintubated 09/06 s/p Trach on 09/08 End-stage COPD. Oxygen dependent FEV1 28%, FVC 1.6. s/p reintubation and bronch 09/06 mucous plugs in left main stem bronchus Continue with vent support keep sat >92% Bronchodilators, Pulmicort twice a day CPAP /TP trials as anneliese. Solu-Medrol 40 mEq IV Q12 VQ scan low probability 08/29 ICU vent bundle, pulm toilet, trach care GI. Small bowel obstruction - resolved Upper GI bleed plus esophageal rule out aorto esophageal fistula History of Ashley esophagitis History of colonic polyps History of ventral hernia status post repair last by Dr. Roberts Continue tube feeds- Jevity 1.5@ 40ml/hr s/p EGD 09/09: Deformed pylorus/antrum, nodular mucosa-multiple biopsies taken esophagitis distal esophagus-biopsy unable to place peg endoscopically due to hiatal hernia. CT abdomen/pelvis revealed possible small bowel obstruction at level of ventral hernia. Severe aortoiliac disease. Dr. roberts/general surgery evaluated. Very poor surgical candidate this time. EGD 08/25 revealed esophageal nipple. Clots noted within the gastric contents without active bleeding. Protonix for GI prophylaxis Renal/: Acute kidney injury- resolved Hypernatremia History of bladder outlet obstruction Monitor renal function, I/O's, electrolytes replacement per protocol. Will need phos and Mag replacement today On Free water 300ml Q6 monitor sodium level. No hydronephrosis on CT abdomen/pelvis ID: UTI Sepsis Fungemia Continue abx per ID ( Micafungin) till September 23.monitor for signs of infections ( Fever, WBC) On Levaquin x 7 days. Pertinent cultures 09/08 Bronch: GNR 09/06 Bronch- S. Maltophilia, 09/03 - blood culture - no growth 09/02 - blood culture - no growth 08/27 - blood from central line -Aslhey [place] 08/27 -arterial line blood - pending 08/26 - sputum -Serratia 08/25 - blood cultures 2 -Ashley 08/25 - urine -no growth 08/22 - blood cultures 2 - no growth 08/21 - urine - no growth 08/20 - blood cultures 2 - 1 out of 4 staph epi Endocrine: Chronic prednisone use secondary to COPD SSI for glycemic control as needed. Heme: s/p Acute blood loss anemia History of prostate cancer Status post 4 units PRBCs ands 2 units FFP on 08/24. Given one unit PRBCs 08/26 Monitor CBC and coags. MSK: PT/OT evaluate and treat Access - peripheral IV's Prophylaxis - GI -Protonix - DVT - SCD/pharmacological prophylaxis contraindicated with GI bleed account development manager eval for placement. Level 3 Cal Arias MD Sep 12, 2016 08:13
[2016-09-12] MEDS: DILTIAZEM HCL 60 MG TAB PO SCH ×4 (08:41→21:10)
[2016-09-12] MEDS: MULTIVITAMIN TAB PO SCH (08:41)
[2016-09-12] MEDS: CHLORHEXIDINE GLUCONATE 0.12% 30 ML CUP MT SCH ×2 (08:41→20:00)
[2016-09-12] MEDS: SODIUM CHLORIDE 0.9% FLUSH 5 ML FLUSH IVF SCH (08:42)
[2016-09-12] MEDS: PANTOPRAZOLE SODIUM 40 MG VIAL IV PUSH SCH ×2 (08:42→21:10)
[2016-09-12] MEDS: MAGNESIUM SULFATE INJ 2 GM in SODIUM CHLORIDE 0.9% INJ 96 ML IV PRN (08:43)
[2016-09-12] MEDS: COLLAGENASE OINT 30 GM TUBE TOP SCH (08:43)
[2016-09-12] MEDS: SODIUM CHLORIDE 0.9% FLUSH 10 ML FLUSH IV FLUSH SCH (08:44)
[2016-09-12 09:11] LABS: BANDS 11 % (0-6); CORRECTED NUCLEATED RBC 1 /100 WBC (0-0); METAMYELOCYTES 2 % (0-1); NEUTROPHIL # MANUAL DIFF 6.1 TH/MM3 (1.8-7.7); PLATELET ESTIMATE SMEAR LOW (NORMAL); PLATELET MORPHOLOGY NORMAL (NORMAL); POLYS (SEG NEUTROPHILS) 80 % (16-70); WBC DIFF SAMPLE 100
[2016-09-12 09:12] LABS: SCAN/DIFF FINAL DIFF MANUAL
[2016-09-12] MEDS: RESP: BUDESONIDE 0.5 MG/2 ML NEB NEB SCH ×2 (11:01→20:27)
[2016-09-12] MEDS: MICAFUNGIN INJ 100 MG in SODIUM CHLORIDE 0.9% INJ 100 ML IV SCH (11:52)
[2016-09-12] MEDS: fentaNYL DRIP 250 ML IV SCH (11:53)
--- NOTE | 2016-09-12 12:20 | HHI.PR ---
Subjective Subjective Notes awake and alert, anxious, on Trach collar, tolerating TF Objective Vitals/I&O Vital Signs Date Time Temp Pulse Resp B/P Pulse Ox O2 Delivery O2 Flow Rate FiO2 09/12/16 11:01 96 T-piece 5.00 28 09/12/16 10:00 120 09/12/16 08:00 99.7 20 180/102 Labs Laboratory Tests Test 09/12/16 06:00 White Blood Count 6.6 Red Blood Count 2.36 Hemoglobin 7.2 Hematocrit 21.8 Mean Corpuscular Volume 92.5 Mean Corpuscular Hemoglobin 30.7 Mean Corpuscular Hemoglobin 33.2 Concent Red Cell Distribution Width 18.4 Platelet Count 118 Mean Platelet Volume 9.7 Neutrophils (%) (Auto) 91.8 Lymphocytes (%) (Auto) 4.2 Monocytes (%) (Auto) 3.7 Eosinophils (%) (Auto) 0.0 Basophils (%) (Auto) 0.3 Neutrophils # (Auto) 6.1 Lymphocytes # (Auto) 0.3 Monocytes # (Auto) 0.2 Eosinophils # (Auto) 0.0 Basophils # (Auto) 0.0 CBC Comment AUTO DIFF Differential Total Cells 100 Counted Neutrophils % (Manual) 80 Band Neutrophils % 11 Lymphocytes % 5 Monocytes % 2 Neutrophils # (Manual) 6.1 Metamyelocytes 2 Nucleated Red Blood Cells 1 Differential Comment FINAL DIFF MANUAL Platelet Estimate LOW Platelet Morphology Comment NORMAL Sodium Level 146 Potassium Level 3.6 Chloride Level 109 Carbon Dioxide Level 29.8 Anion Gap 7 Blood Urea Nitrogen 24 Creatinine 0.72 Estimat Glomerular Filtration 108 Rate Random Glucose 187 Calcium Level 7.9 Phosphorus Level 1.8 Magnesium Level 1.4 Date/Time Procedure Status Source Growth 09/08/16 13:20 Gram Stain - Final Complete Bronchial Washings Bronchial 09/08/16 13:20 Bronchial Culture - Final Complete Stenotrophomonas Maltophilia Abdomen: Other, BS normal Narrative Exam abdomen with large ventral hernia, overall very soft, nontender. BS present. A/P Assessment and Plan 71 year old male s/p cardiac arrest with SBO versus ileus; patient known to Dr. Roberts for large ventral hernia Supportive care Will see intermittently, please call with any concerns. Resume po diet when possible, will need speech eval for trach -Discussed with Dr. Sanders I certify and attest that I personally examined this patient with Ms. Meza who documented our visit in the EMR and entered orders under my direct supervision. I reviewed the care plan with the nursing staff and family if present. Jon Patino MD, FACS, MD Sep 12, 2016 12:20
[2016-09-12] MEDS: LABETALOL HCL 100 MG/20 ML VIAL IV PUSH PRN (12:46)
[2016-09-12] MEDS: LEVOFLOXACIN 750 MG PREMIX INJ 150 ML IV SCH (14:27)
[2016-09-12 20:43] LABS: HEMATOCRIT 27.9 % (39.0-51.0); REVIEW FLAG FINAL
[2016-09-12 21:14] LABS: MAGNESIUM 1.8 MG/DL (1.5-2.5)
[2016-09-12] MEDS: LORazepam 2 MG/ML VIAL IV PUSH PRN (21:58)
[2016-09-13] VITALS (17 sets, daily range): BP systolic 154–176; BP diastolic 71–105; PULSE 78–101; RESP 13–24; TEMP 98.7–99.4; O2SAT 97–100
[2016-09-13] MEDS: methylPREDNISolone SOD SUCC 40 MG/1 ML VIAL IV PUSH SCH ×2 (03:32→15:34)
[2016-09-13 04:25] LABS: BICARBONATE 30.6 MEQ/L (21.0-32.0); MAGNESIUM 1.7 MG/DL (1.5-2.5); POTASSIUM 3.3 MEQ/L (3.5-5.1)
[2016-09-13 04:42] LABS: AUTOMATED NEUTROPHIL # 9.4 TH/MM3 (1.8-7.7); BASOPHIL % 0.1 % (0.0-2.0); HEMATOCRIT 24.8 % (39.0-51.0); LYMPH % 4.1 % (9.0-44.0); LYMPHOCYTE # 0.4 TH/MM3 (1.0-4.8); MEAN CELL VOLUME 91.2 FL (80.0-100.0); MEAN CORPUSCULAR HEMOGLOBIN 31.2 PG (27.0-34.0); MEAN CORPUSCULAR HGB CONC 34.2 % (32.0-36.0); MONO % 5.2 % (0.0-8.0); NEUT % 90.6 % (16.0-70.0); PLATELET COUNT 152 TH/MM3 (150-450); RED BLOOD COUNT 2.72 MIL/MM3 (4.50-5.90); RED CELL DISTRIBUTION WIDTH 18.4 % (11.6-17.2); WHITE BLOOD COUNT 10.3 TH/MM3 (4.0-11.0)
[2016-09-13 04:51] LABS: HEMO FLAGS AUTO DIFF
[2016-09-13] MEDS: FREE WATER G-TUBE SCH ×4 (06:00→17:24)
[2016-09-13] MEDS: INSULIN NovoLIN REGULAR SUPPLEMENTAL SCALE SQ SCH ×4 (06:00→17:23)
[2016-09-13] MEDS: fentaNYL DRIP 250 ML IV SCH ×2 (06:07→17:17)
[2016-09-13] MEDS ORDERED: FREE WATER G-TUBE SCH (08:00)
[2016-09-13] MEDS ORDERED: METOCLOPRAMIDE HCL 10 MG/2 ML VIAL IV PUSH PRN (08:00)
[2016-09-13] MEDS: RESP: BUDESONIDE 0.5 MG/2 ML NEB NEB SCH ×2 (08:14→20:06)
--- NOTE | 2016-09-13 08:14 | HHI.CCPN ---
Subjective Remarks/Hospital Course 08/24: 71 Year-old male with a medical history significant for COPD on home oxygen who was recently admitted with suspected sepsis/H And was initiated on IV antibiotics and steroids. He had recently been evaluated by GI and underwent EGD on 08/10/2016 and was found to have moderate esophagitis, mild gastritis with pathology subsequently showing Ashley esophagitis as well as colonoscopy on 08/11/2016 with polypectomy and ablation of polyp in ascending colon with hot snare. Patient has been dealing with constipation since his admission. Today when he was trying to have a bowel movement he suddenly became less responsive and then had a large emesis which resulted in aspiration and hemodynamic collapse. Patient initially had large volume emesis with dark maroon blood. CODE BLUE cardiac arrest code was activated. On my arrival patient was in bed CPR had been initiated. Significant gastric contents was still being suctioned out of his oral cavity. ACLS protocol was continued. Patient was intubated following vigorous suctioning of gastric contents from oral cavity as well as with placement of NG tube which is hooked up to suction and about 1.5 L of gastric contents being suctioned out which appeared to be dark maroon in color. Patient initially had a pulse when CODE BLUE was called and subsequently went in PEA arrest followed by asystole during ACLS and then V. fib for which he was defibrillated with 200 J 1, CPR/ACLS protocol was continued and patient eventually had return of spontaneous circulation after about 15 minutes of CPR/ACLS. Patient was transferred to [facility] and placed on mechanical ventilation. I emergently placed left femoral central line for central vascular access and he was started on Levophed for pressor support. 2 units of O- 1 crossmatch blood were ordered and transfused stat. He also received 1 L of normal saline bolus following return of spontaneous circulation. Stat labs were ordered. His hemoglobin on ABG done post resuscitation was 5.6. I did order Protonix 80 mg IV stat followed by 8 mg per hour IV infusion. Patient remained encephalopathic though was minimally responsive following transfer to the ICU. GI consult was requested and I spoke with Dr. Zamarripa at bedside on his arrival. History was obtained by reviewing records, discussion with family/ GI as well as nursing staff. According to patient's daughter he has not been doing well for the last few months in terms of his breathing and has been using his home oxygen more often. He gets extremely short of breath even with the least exertion. 08/25: Remains encephalopathic/ sedated, [facility]. Transiently off levophed last night however back to 11 mcg/min currently. Hgb up to 9.4 following 4 units PRBCs transfused last night. 08/26: Tmax 99. Some unresponsive on the ventilator. CT abdomen/pelvis less than revealed small bowel obstruction at site of ventral hernia. No further bleeding noted. Gastric output approximately 700 cc. No bowel movement. 08/27: Tmax 99.7. Currently afebrile. Positive BM overnight approximately 1 L according to RN. No blood noted. 100 cc from gastric tube overnight. Hemoglobin corrected a properly. Likely dilutional. Noted fungemia currently issue. Opens eyes to voice. 08/28: Tmax 99.1. No BMs overnight. Minimal gastric tube output. Hemoglobin stable 9.5. Opens eyes to voice. Not following commands. Appears with singultus this morning. 08/29: 20 beat run of wide complex tachycardia overnight. Noted potassium 3.2. This is been replaced. We'll recheck this afternoon. Circuit exchange yesterday. Patient tolerating pressure control ventilation much better than PRVC/AC ventilation is low probably VQ scan. Less FiO2 requirements. No BM past 24 hour. 08/30: Unable to wean ventilator. 08/31: Patient was extubated on 08/30 however became tachypneic with use of accessory muscles of respiration and required reintubation around 6:30 PM last night and was placed back on mechanical ventilation. Currently sedated, orally intubated on mechanical ventilation. Post intubation chest x-ray suggested fluid overload for which she was given Lasix 40 mg IV with good response having made about 2.5 L urine the last 7 hours. 09/01: Remains sedated, orally intubated on mechanical ventilation. Diuresing well with Lasix. Awaiting EGD in a.m. 09/02: Little progress. CXR clearing nicely. Continue diuresis, tolerate hypernatremia. 09/03: Good diuretic response. CRISTHIAN today with no valvar pathology. 09/04: Too weak to tolerate extubation. Will require trach. 09/05: Sedated, arousable, following commands. Tolerated C Pap trial for 9 hours yesterday with pressure support +10. Tolerating tube feeds. Subjective 09/06: Extubated yesterday. Chest x-ray reveals likely mucous plugging in left lung garcia. Currently on nonrebreather mask. Planning of insomnia and thick secretions that he is unable to cough up. 09/07 Patient s/p reintubation and bronch 09/06 mucous plugs in left main stem bronchus sedated with Diprivan and Fentanyl. Afebrile. For possible trach tomorrow. 09/08 No acute events overnight. Sedated with Diprivan and Fentanyl. Afebrile. For trach today. 09/09 No acute events overnight. Sedated and intubated. s/p trach yesterday for PEG tube placement today. 09/10 Patient remains sedated and on ventilator via trach. s/p EGD yesterday PEG tube couldn't be placed endoscopically due to hernia. Surgery consulted for J-tube placement. Afebrile. 09/11 No acute events overnight. Sedated with Diprivan, Fentanyl and intubated. Afebrile. Tolerating tube feeds. 09/12 Patient is off Diprivan remains on Fentanyl infusion tolerated CPAP trials for several hrs and TP's x 2 hrs yesterday now on TP with 50% FIO2. Afebrile. 09/13 Patient tolerated TP's all day yesterday placed on PRVC/AC mode overnight. TF held for high residuals. Afebrile. On Fentanyl infusion however he is awake, restless. Objective Vital Signs Date Time Temp Pulse Resp B/P Pulse Ox O2 Delivery O2 Flow Rate FiO2 09/13/16 06:00 91 09/13/16 04:05 100 40 09/13/16 04:00 99.2 16 160/98 09/12/16 11:01 T-piece 5.00 Intake and Output 09/12/16 09/12/16 09/13/16 08:00 16:00 00:00 Intake Total 576 ml 1314 ml 473 ml Output Total 510 ml 700 ml 850 ml Balance 66 ml 614 ml -377 ml Result Diagram: 09/13/16 0330 09/13/16 0330 Other Results Laboratory Tests Test 09/12/16 09/13/16 19:30 03:30 Hemoglobin 9.5 GM/DL 8.5 GM/DL Hematocrit 27.9 % 24.8 % Phosphorus Level 2.9 MG/DL Magnesium Level 1.8 MG/DL 1.7 MG/DL White Blood Count 10.3 TH/MM3 Red Blood Count 2.72 MIL/MM3 Mean Corpuscular Volume 91.2 FL Mean Corpuscular Hemoglobin 31.2 PG Mean Corpuscular Hemoglobin 34.2 % Concent Red Cell Distribution Width 18.4 % Platelet Count 152 TH/MM3 Mean Platelet Volume 9.2 FL Neutrophils (%) (Auto) 90.6 % Lymphocytes (%) (Auto) 4.1 % Monocytes (%) (Auto) 5.2 % Eosinophils (%) (Auto) 0.0 % Basophils (%) (Auto) 0.1 % Neutrophils # (Auto) 9.4 TH/MM3 Lymphocytes # (Auto) 0.4 TH/MM3 Monocytes # (Auto) 0.5 TH/MM3 Eosinophils # (Auto) 0.0 TH/MM3 Basophils # (Auto) 0.0 TH/MM3 CBC Comment AUTO DIFF Sodium Level 147 MEQ/L Potassium Level 3.3 MEQ/L Chloride Level 109 MEQ/L Carbon Dioxide Level 30.6 MEQ/L Anion Gap 7 MEQ/L Blood Urea Nitrogen 22 MG/DL Creatinine 0.67 MG/DL Estimat Glomerular Filtration 117 ML/MIN Rate Random Glucose 142 MG/DL Calcium Level 8.2 MG/DL Imaging Last Impressions Chest X-Ray 09/11/16 0000 Signed Impressions: Service Date/Time: Sunday, September 11, 2016 13:43 - CONCLUSION: Satisfactory PICC line position Lex Kaur MD Lower Extremity Ultrasound 09/01/16 0000 Signed Impressions: Service Date/Time: Thursday, September 01, 2016 12:33 - CONCLUSION: 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 There is concentric mural thrombus. This aneurysm is not amenable to thrombin injection. Polo Moore Jr., MD Lung Scan-V Nuclear Medicine 08/29/16 0000 Signed Impressions: Service Date/Time: Monday, August 29, 2016 10:20 - CONCLUSION: Low probability for pulmonary embolus. Lex Lopez MD Brain MRI 08/27/16 0000 Signed Impressions: Service Date/Time: August 15:13 - CONCLUSION: No evidence of acute infarct, hemorrhage, mass or edema. No findings to suggest significant anoxic injury. Kit Power MD Renal Ultrasound 3/7/17 0000 Signed Impressions: Service Date/Time: Wednesday, August 24, 2016 21:53 - CONCLUSION: 1. There is no hydronephrosis. Both kidneys demonstrate mild increased echotexture of the parenchyma suggesting medical renal disease. 2. Trace perihepatic free fluid and bilateral pleural effusions. Lex Malik MD Chest CT 08/25/16 Signed Impressions: Service Date/Time: Thursday, August 25, 2016 21:20 - CONCLUSION: 1. Bilateral pneumonia and aspiration would be in the differential. There is dependent consolidation/atelectasis and small effusions of the bases as well. 2. Upper limits of normal to mildly enlarged mediastinal lymph nodes, most likely reactive. 3. Coronary artery calcification. 4. Right rib fractures, including acute fractures laterally of the third, fourth and fifth. There are old, healed fractures anteriorly of the right second and third ribs.. Lex Lopez MD Abdomen/Pelvis CT 08/25/16 Signed Impressions: Service Date/Time: Thursday, August 25, 2016 20:20 - CONCLUSION: 1. Ventral hernia containing small bowel and with associated small bowel obstruction. The defect is broad; I believe the obstruction is probably related to scarring and/or adhesions within the hernia sac. I don't see a mass. 2. Distended stomach despite NG tube present. 3. Severe aortoiliac atherosclerosis. No aneurysm. Lex Lopez MD Abdomen X-Ray 08/24/16 Signed Impressions: Service Date/Time: Wednesday, August 24, 2016 17:19 - CONCLUSION: 1. Small bowel dilatation which reflect ileus or obstruction. Followup examination is recommended if clinically indicated. Gareth Escalante MD Objective Remarks GENERAL: Patient is 71 yo lying in bed in NAD. On TP's with 50% FIO2. SKIN: Warm and dry. HEAD: Normocephalic. EYES: No scleral icterus. No injection or drainage. NECK: Supple, trachea midline. No JVD or lymphadenopathy. Trach in place CARDIOVASCULAR: Regular rate and rhythm without murmurs, gallops, or rubs. RESPIRATORY: Breath sounds equal bilaterally. No accessory muscle use. GASTROINTESTINAL: Abdomen soft, non-tender, nondistended. MUSCULOSKELETAL: No cyanosis, +1 edema. Neuro: Awake. Date of Insertion: Aug 26, 2016 Line: Central Venous Catheter Side: Left Location: Internal, Jugular A/P Assessment and Plan Neuro/Psych: Status post CPR 15 minutes - possible anoxic encephalopathy Depression NOS Monitor neuro status. On Fentanyl infusion for sedation, daily sedation vacation Goal of RASS -2. Ativan 1mg Q4 PRN agitation EEG 08/25 revealed mild to moderate encephalopathy. No epileptiform activity. MRI brain 08/27 revealed no acute findings. Cardiovascular: Cardiac arrest status post CPR Elevated troponin History dyslipidemia History of hypertension PVD Systemic shock likely secondary to sepsis/aspiration/small bowel obstruction Possible femoral pseudoaneurysm Monitor HR and BP keep MAP>65mmHg Cardizem 60mg QID, add Hydralazine 50mg Q8 Cardiac arrest status post CPR. s/p aggressive fluid resuscitation. 5 units PRBCs transfused to date minimal troponin elevation following cardiac arrest noted. Echo 2D revealed EF 35-40%. Moderate LVH. Mitral valve calcified. Mild TR. Pulmonary: Acute respiratory failure secondary to aspiration pneumonia- Reintubated 09/06 s/p Trach on 09/08 End-stage COPD. Oxygen dependent FEV1 28%, FVC 1.6. s/p reintubation and bronch 09/06 mucous plugs in left main stem bronchus Continue with vent support keep sat >92% Bronchodilators, Pulmicort twice a day CPAP /TP trials as anneliese. Patient tolerated TP's all day yesterday. Solu-Medrol 40 mEq IV Q12 VQ scan low probability 08/29 ICU vent bundle, pulm toilet, trach care GI. Small bowel obstruction - resolved Upper GI bleed plus esophageal rule out aorto esophageal fistula History of Ashley esophagitis History of colonic polyps History of ventral hernia status post repair last by Dr. Roberts KUB abdomen showed diffuse Ileus. Place on Reglan 5mg IV Q8, Senna and Lactulose. TF on hold- (Jevity 1.5 with goal rate 40ml/hr) Place on Reglan 5mg IV Q8 PRN high residuals. s/p EGD 09/09: Deformed pylorus/antrum, nodular mucosa-multiple biopsies taken esophagitis distal esophagus-biopsy unable to place peg endoscopically due to hiatal hernia. CT abdomen/pelvis revealed possible small bowel obstruction at level of ventral hernia. Severe aortoiliac disease. Dr. roberts/general surgery evaluated. Very poor surgical candidate this time. EGD 08/25 revealed esophageal nipple. Clots noted within the gastric contents without active bleeding. Protonix for GI prophylaxis Renal/: Acute kidney injury- resolved Hypernatremia History of bladder outlet obstruction Monitor renal function, I/O's, electrolytes replacement per protocol. Will need K replacement today On Free water 300ml Q6 monitor sodium level. Diurese with Bumex 1mg x1 No hydronephrosis on CT abdomen/pelvis ID: UTI Sepsis Fungemia Continue abx per ID ( Micafungin) till September 23.monitor for signs of infections ( Fever, WBC) On Levaquin x 7 days. Pertinent cultures 09/08 Bronch: S. Maltophilia, 09/06 Bronch- S. Maltophilia, 09/03 - blood culture - no growth 09/02 - blood culture - no growth 08/27 - blood from central line -Ashley Glabrata 08/27 -arterial line blood - pending 08/26 - sputum -Serratia 08/25 - blood cultures 2 -Ashley 08/25 - urine -no growth 08/22 - blood cultures 2 - no growth 08/21 - urine - no growth 08/20 - blood cultures 2 - 1 out of 4 staph epi Endocrine: Chronic prednisone use secondary to COPD SSI for glycemic control as needed. Heme: s/p Acute blood loss anemia History of prostate cancer Status post 4 units PRBCs ands 2 units FFP on 08/24. Given one unit PRBCs 08/26 Monitor CBC MSK: PT/OT evaluate and treat Access - peripheral IV's, PICC line placed 09/11 Prophylaxis - GI -Protonix - DVT - SCD/pharmacological prophylaxis contraindicated with GI bleed mutual fund manager eval for placement. Level 3 Cal Arias MD Sep 13, 2016 08:14
[2016-09-13] MEDS: hydrALAZINE HCL 50 MG TAB PO SCH ×3 (08:30→21:08)
[2016-09-13] MEDS ORDERED: BUMETANIDE INJ 1 MG/4 ML VIAL IV PUSH ONE (08:30)
--- NOTE | 2016-09-13 08:55 | RADRPT ---
EXAM DATE/TIME: 09/13/2016 08:22 [facility] COMPARISON: CHEST SINGLE AP, September 11, 2016, 13:43. ABDOMEN KUB ONLY, August 24, 2016, 17:19. INDICATIONS : Rule out ileus. MEDICAL HISTORY : Chronic obstructive pulmonary disease. Emphysema. SURGICAL HISTORY : None. ENCOUNTER: Subsequent ACUITY: 3 weeks PAIN SCORE: Non-responsive. LOCATION: Bilateral Abdomen FINDINGS: 2 views of the abdomen demonstrate air-filled large and small bowel. The small bowel is mildly dilate d. No evidence of free air or air-fluid level. The imaged portion of the lung base demonstrate hazy opacities, not significantly changed as compared to the prior exam. There is an orogastric vs NG tube present with the proximal port below level of t he diaphragm. CONCLUSION: Findings consistent with diffuse ileus. Lola Jean Baptiste MD on September 13, 2016 at 8:51 Board Certified Radiologist. This report was verified electronically.
[2016-09-13] MEDS: SODIUM CHLORIDE 0.9% FLUSH 10 ML FLUSH IV FLUSH SCH (09:00)
[2016-09-13] MEDS: DILTIAZEM HCL 60 MG TAB PO SCH ×4 (09:23→21:08)
[2016-09-13] MEDS: MULTIVITAMIN TAB PO SCH (09:23)
[2016-09-13] MEDS: COLLAGENASE OINT 30 GM TUBE TOP SCH (09:23)
[2016-09-13] MEDS: PANTOPRAZOLE SODIUM 40 MG VIAL IV PUSH SCH ×2 (09:24→21:09)
[2016-09-13] MEDS: CHLORHEXIDINE GLUCONATE 0.12% 30 ML CUP MT SCH ×2 (09:24→20:00)
[2016-09-13] MEDS: SODIUM CHLORIDE 0.9% FLUSH 5 ML FLUSH IVF SCH (09:25)
[2016-09-13 10:14] LABS: BANDS 4 % (0-6); METAMYELOCYTES 1 % (0-1); MYELOCYTES 2 % (0-0); NEUTROPHIL # MANUAL DIFF 9.6 TH/MM3 (1.8-7.7); PLATELET ESTIMATE SMEAR NORMAL (NORMAL); PLATELET MORPHOLOGY NORMAL (NORMAL); POLYS (SEG NEUTROPHILS) 86 % (16-70); WBC DIFF SAMPLE 100
[2016-09-13 10:15] LABS: SCAN/DIFF FINAL DIFF MANUAL
[2016-09-13] MEDS: MICAFUNGIN INJ 100 MG in SODIUM CHLORIDE 0.9% INJ 100 ML IV SCH (12:03)
[2016-09-13] MEDS: SENNOSIDES SYRUP 8.8 MG/5 ML CUP PO SCH (13:34)
[2016-09-13] MEDS: LACTULOSE SYRUP 20 GM/30 ML CUP PO SCH ×3 (13:34→21:08)
[2016-09-13] MEDS: LEVOFLOXACIN 750 MG PREMIX INJ 150 ML IV SCH (13:35)
[2016-09-13] MEDS: LABETALOL HCL 100 MG/20 ML VIAL IV PUSH PRN (14:53)
[2016-09-13] MEDS: METOCLOPRAMIDE HCL 10 MG/2 ML VIAL IV PUSH SCH (15:35)
[2016-09-13] MEDS: hydrALAZINE HCL 20 MG/ML VIAL IV PUSH PRN (17:23)
[2016-09-14] VITALS (17 sets, daily range): BP systolic 121–164; BP diastolic 70–100; PULSE 54–109; RESP 11–22; TEMP 96.8–99.2; O2SAT 92–100
[2016-09-14] MEDS: METOCLOPRAMIDE HCL 10 MG/2 ML VIAL IV PUSH SCH ×3 (00:38→15:34)
[2016-09-14] MEDS: LABETALOL HCL 100 MG/20 ML VIAL IV PUSH PRN (00:38)
[2016-09-14] MEDS: FREE WATER G-TUBE SCH ×4 (05:07→12:00)
[2016-09-14] MEDS: hydrALAZINE HCL 50 MG TAB PO SCH ×3 (05:18→20:24)
[2016-09-14] MEDS: fentaNYL DRIP 250 ML IV SCH (05:18)
[2016-09-14] MEDS: methylPREDNISolone SOD SUCC 40 MG/1 ML VIAL IV PUSH SCH ×2 (05:19→15:34)
[2016-09-14] MEDS: INSULIN NovoLIN REGULAR SUPPLEMENTAL SCALE SQ SCH ×4 (05:37→18:00)
--- NOTE | 2016-09-14 05:43 | RADRPT ---
EXAM DATE/TIME: 09/14/2016 03:56 [facility] COMPARISON: ABDOMEN KUB ONLY, September 13, 2016, 8:22. INDICATIONS : Abdominal distention. MEDICAL HISTORY : Chronic obstructive pulmonary disease. Emphysema SURGICAL HISTORY : None. ENCOUNTER: Subsequent ACUITY: 3 weeks PAIN SCORE: Non-responsive. LOCATION: Bilateral Abdomen FINDINGS: Supine view of the abdomen was performed. Gaseous distention of multiple bowel loops. No abnormal ma sses, calcifications, or organomegaly is seen. The osseous structures are unremarkable. CONCLUSION: Gaseous distention of multiple bowel loops, likely ileus. Eduardo Mcconnell MD on September 14, 2016 at 5:41 Board Certified Radiologist. This report was verified electronically.
[2016-09-14 06:53] LABS: AUTOMATED NEUTROPHIL # 5.9 TH/MM3 (1.8-7.7); LYMPHOCYTE # 0.5 TH/MM3 (1.0-4.8); MEAN CELL VOLUME 91.4 FL (80.0-100.0); MEAN CORPUSCULAR HEMOGLOBIN 30.4 PG (27.0-34.0); MEAN CORPUSCULAR HGB CONC 33.3 % (32.0-36.0); MONO % 11.8 % (0.0-8.0); NEUT % 81.2 % (16.0-70.0); PLATELET COUNT 158 TH/MM3 (150-450); RED BLOOD COUNT 2.96 MIL/MM3 (4.50-5.90); RED CELL DISTRIBUTION WIDTH 18.9 % (11.6-17.2); WHITE BLOOD COUNT 7.3 TH/MM3 (4.0-11.0)
[2016-09-14 06:58] LABS: BICARBONATE 29.7 MEQ/L (21.0-32.0); HEMO FLAGS AUTO DIFF; MAGNESIUM 1.5 MG/DL (1.5-2.5); POTASSIUM 3.5 MEQ/L (3.5-5.1)
[2016-09-14 07:47] LABS: BANDS 4 % (0-6); METAMYELOCYTES 1 % (0-1); MYELOCYTES 4 % (0-0); NEUTROPHIL # MANUAL DIFF 6.4 TH/MM3 (1.8-7.7); POLYS (SEG NEUTROPHILS) 78 % (16-70); WBC DIFF SAMPLE 100
[2016-09-14 07:48] LABS: HELMET CELLS OCC (NORMAL); KERATOCYTES OCC (NORMAL); PLATELET ESTIMATE SMEAR NORMAL (NORMAL); PLATELET MORPHOLOGY NORMAL (NORMAL); SCAN/DIFF FINAL DIFF MANUAL
[2016-09-14] MEDS: CHLORHEXIDINE GLUCONATE 0.12% 30 ML CUP MT SCH ×2 (08:00→20:24)
[2016-09-14] MEDS ORDERED: MAGNESIUM SULFATE 1 GM PREMIX 100 ML ONE (08:03)
[2016-09-14] MEDS: DILTIAZEM HCL 60 MG TAB PO SCH ×4 (08:07→20:23)
[2016-09-14] MEDS: LACTULOSE SYRUP 20 GM/30 ML CUP PO SCH ×4 (08:07→20:24)
[2016-09-14] MEDS: SENNOSIDES SYRUP 8.8 MG/5 ML CUP PO SCH (08:07)
[2016-09-14] MEDS: MULTIVITAMIN TAB PO SCH (08:07)
[2016-09-14] MEDS: PANTOPRAZOLE SODIUM 40 MG VIAL IV PUSH SCH ×2 (08:07→20:23)
--- NOTE | 2016-09-14 08:09 | HHI.CCPN ---
Subjective Remarks/Hospital Course 08/24: 71 Year-old male with a medical history significant for COPD on home oxygen who was recently admitted with suspected sepsis/H And was initiated on IV antibiotics and steroids. He had recently been evaluated by GI and underwent EGD on 08/10/2016 and was found to have moderate esophagitis, mild gastritis with pathology subsequently showing Ashley esophagitis as well as colonoscopy on 08/11/2016 with polypectomy and ablation of polyp in ascending colon with hot snare. Patient has been dealing with constipation since his admission. Today when he was trying to have a bowel movement he suddenly became less responsive and then had a large emesis which resulted in aspiration and hemodynamic collapse. Patient initially had large volume emesis with dark maroon blood. CODE BLUE cardiac arrest code was activated. On my arrival patient was in bed CPR had been initiated. Significant gastric contents was still being suctioned out of his oral cavity. ACLS protocol was continued. Patient was intubated following vigorous suctioning of gastric contents from oral cavity as well as with placement of NG tube which is hooked up to suction and about 1.5 L of gastric contents being suctioned out which appeared to be dark maroon in color. Patient initially had a pulse when CODE BLUE was called and subsequently went in PEA arrest followed by asystole during ACLS and then V. fib for which he was defibrillated with 200 J 1, CPR/ACLS protocol was continued and patient eventually had return of spontaneous circulation after about 15 minutes of CPR/ACLS. Patient was transferred to [facility] and placed on mechanical ventilation. I emergently placed left femoral central line for central vascular access and he was started on Levophed for pressor support. 2 units of O- 1 crossmatch blood were ordered and transfused stat. He also received 1 L of normal saline bolus following return of spontaneous circulation. Stat labs were ordered. His hemoglobin on ABG done post resuscitation was 5.6. I did order Protonix 80 mg IV stat followed by 8 mg per hour IV infusion. Patient remained encephalopathic though was minimally responsive following transfer to the ICU. GI consult was requested and I spoke with Dr. Zamarripa at bedside on his arrival. History was obtained by reviewing records, discussion with family/ GI as well as nursing staff. According to patient's daughter he has not been doing well for the last few months in terms of his breathing and has been using his home oxygen more often. He gets extremely short of breath even with the least exertion. 08/25: Remains encephalopathic/ sedated, [facility]. Transiently off levophed last night however back to 11 mcg/min currently. Hgb up to 9.4 following 4 units PRBCs transfused last night. 08/26: Tmax 99. Some unresponsive on the ventilator. CT abdomen/pelvis less than revealed small bowel obstruction at site of ventral hernia. No further bleeding noted. Gastric output approximately 700 cc. No bowel movement. 08/27: Tmax 99.7. Currently afebrile. Positive BM overnight approximately 1 L according to RN. No blood noted. 100 cc from gastric tube overnight. Hemoglobin corrected a properly. Likely dilutional. Noted fungemia currently issue. Opens eyes to voice. 08/28: Tmax 99.1. No BMs overnight. Minimal gastric tube output. Hemoglobin stable 9.5. Opens eyes to voice. Not following commands. Appears with singultus this morning. 08/29: 20 beat run of wide complex tachycardia overnight. Noted potassium 3.2. This is been replaced. We'll recheck this afternoon. Circuit exchange yesterday. Patient tolerating pressure control ventilation much better than PRVC/AC ventilation is low probably VQ scan. Less FiO2 requirements. No BM past 24 hour. 08/30: Unable to wean ventilator. 08/31: Patient was extubated on 08/30 however became tachypneic with use of accessory muscles of respiration and required reintubation around 6:30 PM last night and was placed back on mechanical ventilation. Currently sedated, orally intubated on mechanical ventilation. Post intubation chest x-ray suggested fluid overload for which she was given Lasix 40 mg IV with good response having made about 2.5 L urine the last 7 hours. 09/01: Remains sedated, orally intubated on mechanical ventilation. Diuresing well with Lasix. Awaiting EGD in a.m. 09/02: Little progress. CXR clearing nicely. Continue diuresis, tolerate hypernatremia. 09/03: Good diuretic response. CRISTHIAN today with no valvar pathology. 09/04: Too weak to tolerate extubation. Will require trach. 09/05: Sedated, arousable, following commands. Tolerated C Pap trial for 9 hours yesterday with pressure support +10. Tolerating tube feeds. Subjective 09/06: Extubated yesterday. Chest x-ray reveals likely mucous plugging in left lung garcia. Currently on nonrebreather mask. Planning of insomnia and thick secretions that he is unable to cough up. 09/07 Patient s/p reintubation and bronch 09/06 mucous plugs in left main stem bronchus sedated with Diprivan and Fentanyl. Afebrile. For possible trach tomorrow. 09/08 No acute events overnight. Sedated with Diprivan and Fentanyl. Afebrile. For trach today. 09/09 No acute events overnight. Sedated and intubated. s/p trach yesterday for PEG tube placement today. 09/10 Patient remains sedated and on ventilator via trach. s/p EGD yesterday PEG tube couldn't be placed endoscopically due to hernia. Surgery consulted for J-tube placement. Afebrile. 09/11 No acute events overnight. Sedated with Diprivan, Fentanyl and intubated. Afebrile. Tolerating tube feeds. 09/12 Patient is off Diprivan remains on Fentanyl infusion tolerated CPAP trials for several hrs and TP's x 2 hrs yesterday now on TP with 50% FIO2. Afebrile. 09/13 Patient tolerated TP's all day yesterday placed on PRVC/AC mode overnight. TF held for high residuals. Afebrile. On Fentanyl infusion however he is awake, restless. 09/14 No acute events overnight. Toelrated TP's all day yesterday placed back on ventilator overnight. On Fentanyl infusion. Afebrile. Repeat KUB this morning showed ileus. Objective Vital Signs Date Time Temp Pulse Resp B/P Pulse Ox O2 Delivery O2 Flow Rate FiO2 09/14/16 06:00 79 09/14/16 04:27 96 40 09/14/16 04:00 99.1 19 150/80 09/13/16 08:50 T-piece 6.00 Intake and Output 09/13/16 09/13/16 09/14/16 08:00 16:00 00:00 Intake Total 316 ml 640 ml 431 ml Output Total 425 ml 1325 ml 375 ml Balance -109 ml -685 ml 56 ml Result Diagram: 09/14/16 0530 09/14/16 0530 Other Results Laboratory Tests Test 09/14/16 05:30 White Blood Count 7.3 TH/MM3 Red Blood Count 2.96 MIL/MM3 Hemoglobin 9.0 GM/DL Hematocrit 27.0 % Mean Corpuscular Volume 91.4 FL Mean Corpuscular Hemoglobin 30.4 PG Mean Corpuscular Hemoglobin 33.3 % Concent Red Cell Distribution Width 18.9 % Platelet Count 158 TH/MM3 Mean Platelet Volume 9.1 FL Neutrophils (%) (Auto) 81.2 % Lymphocytes (%) (Auto) 7.0 % Monocytes (%) (Auto) 11.8 % Eosinophils (%) (Auto) 0.0 % Basophils (%) (Auto) 0.0 % Neutrophils # (Auto) 5.9 TH/MM3 Lymphocytes # (Auto) 0.5 TH/MM3 Monocytes # (Auto) 0.9 TH/MM3 Eosinophils # (Auto) 0.0 TH/MM3 Basophils # (Auto) 0.0 TH/MM3 CBC Comment AUTO DIFF Differential Total Cells 100 Counted Neutrophils % (Manual) 78 % Band Neutrophils % 4 % Lymphocytes % 6 % Monocytes % 7 % Neutrophils # (Manual) 6.4 TH/MM3 Metamyelocytes 1 % Myelocytes 4 % Differential Comment FINAL DIFF MANUAL Platelet Estimate NORMAL Platelet Morphology Comment NORMAL Helmet Cells OCC Keratocytes OCC Sodium Level 147 MEQ/L Potassium Level 3.5 MEQ/L Chloride Level 108 MEQ/L Carbon Dioxide Level 29.7 MEQ/L Anion Gap 9 MEQ/L Blood Urea Nitrogen 24 MG/DL Creatinine 0.66 MG/DL Estimat Glomerular Filtration 119 ML/MIN Rate Random Glucose 124 MG/DL Calcium Level 8.2 MG/DL Phosphorus Level 2.6 MG/DL Magnesium Level 1.5 MG/DL Imaging Last Impressions Abdomen X-Ray 09/14/16 0600 Signed Impressions: Service Date/Time: Wednesday, September 14, 2016 03:56 - CONCLUSION: Gaseous distention of multiple bowel loops, likely ileus. 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 There is concentric mural thrombus. This aneurysm is not amenable to thrombin injection. Polo Moore Jr., MD Lung Scan-V Nuclear Medicine 08/29/16 0000 Signed Impressions: Service Date/Time: Monday, August 29, 2016 10:20 - CONCLUSION: Low probability for pulmonary embolus. Lex Lopez MD Brain MRI 08/27/16 0000 Signed Impressions: Service Date/Time: August 15:13 - CONCLUSION: No evidence of acute infarct, hemorrhage, mass or edema. No findings to suggest significant anoxic injury. Kit Power MD Renal Ultrasound 08/25/16 0000 Signed Impressions: Service Date/Time: Wednesday, August 24, 2016 21:53 - CONCLUSION: 1. There is no hydronephrosis. Both kidneys demonstrate mild increased echotexture of the parenchyma suggesting medical renal disease. 2. Trace perihepatic free fluid and bilateral pleural effusions. Lex Malik MD Chest CT 08/25/16 0000 Signed Impressions: Service Date/Time: Thursday, August 25, 2016 21:20 - CONCLUSION: 1. Bilateral pneumonia and aspiration would be in the differential. There is dependent consolidation/atelectasis and small effusions of the bases as well. 2. Upper limits of normal to mildly enlarged mediastinal lymph nodes, most likely reactive. 3. Coronary artery calcification. 4. Right rib fractures, including acute fractures laterally of the third, fourth and fifth. There are old, healed fractures anteriorly of the right second and third ribs.. Lex Lopez MD Abdomen/Pelvis CT 08/25/16 0000 Signed Impressions: Service Date/Time: Thursday, August 25, 2016 20:20 - CONCLUSION: 1. Ventral hernia containing small bowel and with associated small bowel obstruction. The defect is broad; I believe the obstruction is probably related to scarring and/or adhesions within the hernia sac. I don't see a mass. 2. Distended stomach despite NG tube present. 3. Severe aortoiliac atherosclerosis. No aneurysm. Lex Lopez MD Objective Remarks GENERAL: Patient is 71 yo lying in bed in NAD. On TP's with 50% FIO2. SKIN: Warm and dry. HEAD: Normocephalic. EYES: No scleral icterus. No injection or drainage. NECK: Supple, trachea midline. No JVD or lymphadenopathy. Trach in place CARDIOVASCULAR: Regular rate and rhythm without murmurs, gallops, or rubs. RESPIRATORY: Breath sounds equal bilaterally. No accessory muscle use. GASTROINTESTINAL: Abdomen soft, non-tender, nondistended. MUSCULOSKELETAL: No cyanosis, +1 edema. Neuro: Awake. Date of Insertion: Aug 26, 2016 Line: Central Venous Catheter Side: Left Location: Internal, Jugular A/P Assessment and Plan Neuro/Psych: Status post CPR 15 minutes - possible anoxic encephalopathy Depression NOS Monitor neuro status. On Fentanyl infusion for sedation, daily sedation vacation. Will place on Precedex drip for agitation. Goal of RASS -2. Ativan 1mg Q4 PRN agitation EEG 08/25 revealed mild to moderate encephalopathy. No epileptiform activity. MRI brain 08/27 revealed no acute findings. Cardiovascular: Cardiac arrest status post CPR Elevated troponin History dyslipidemia History of hypertension PVD Systemic shock likely secondary to sepsis/aspiration/small bowel obstruction Possible femoral pseudoaneurysm Monitor HR and BP keep MAP>65mmHg Cardizem 60mg QID, Hydralazine 50mg Q8 Cardiac arrest status post CPR. s/p aggressive fluid resuscitation. 5 units PRBCs transfused to date minimal troponin elevation following cardiac arrest noted. Echo 2D revealed EF 35-40%. Moderate LVH. Mitral valve calcified. Mild TR. Pulmonary: Acute respiratory failure secondary to aspiration pneumonia- Reintubated 09/06 s/p Trach on 09/08 End-stage COPD. Oxygen dependent FEV1 28%, FVC 1.6. s/p reintubation and bronch 09/06 mucous plugs in left main stem bronchus Continue with vent support keep sat >92% Bronchodilators, Pulmicort twice a day CPAP /TP trials as anneliese. Patient tolerated TP's all day yesterday. Solu-Medrol 40 mEq IV Q12 VQ scan low probability 08/29 ICU vent bundle, pulm toilet, trach care GI. Small bowel obstruction - resolved Upper GI bleed plus esophageal rule out aorto esophageal fistula History of Ashley esophagitis History of colonic polyps History of ventral hernia status post repair last by Dr. Roberts KUNicol abdomen showed diffuse Ileus. on Reglan 5mg IV Q8, Senna, Lactulose, Colace. TF on hold- (Jevity 1.5 with goal rate 40ml/hr) s/p EGD 09/09: Deformed pylorus/antrum, nodular mucosa-multiple biopsies taken esophagitis distal esophagus-biopsy unable to place peg endoscopically due to hiatal hernia. CT abdomen/pelvis revealed possible small bowel obstruction at level of ventral hernia. Severe aortoiliac disease. Dr. roberts/general surgery evaluated. Very poor surgical candidate this time. EGD 08/25 revealed esophageal nipple. Clots noted within the gastric contents without active bleeding. Protonix for GI prophylaxis Renal/: Acute kidney injury- resolved Hypernatremia History of bladder outlet obstruction Monitor renal function, I/O's, electrolytes replacement per protocol. Will need K replacement today On Free water 300ml Q6 monitor sodium level. No hydronephrosis on CT abdomen/pelvis ID: UTI Sepsis Fungemia Continue abx per ID ( Micafungin) till September 23.monitor for signs of infections ( Fever, WBC) On Levaquin x 7 days. Pertinent cultures 09/08 Bronch: S. Maltophilia, 09/06 Bronch- S. Maltophilia, 09/03 - blood culture - no growth 09/02 - blood culture - no growth 08/27 - blood from central line -Ashley Glabrata 08/27 -arterial line blood - pending 08/26 - sputum -Serratia 08/25 - blood cultures 2 -Ashley 08/25 - urine -no growth 08/22 - blood cultures 2 - no growth 08/21 - urine - no growth 08/20 - blood cultures 2 - 1 out of 4 staph epi Endocrine: Chronic prednisone use secondary to COPD SSI for glycemic control as needed. Heme: s/p Acute blood loss anemia History of prostate cancer Status post 4 units PRBCs ands 2 units FFP on 08/24. 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 Level 3 Cal Arias MD Sep 14, 2016 08:09
[2016-09-14] MEDS: RESP: BUDESONIDE 0.5 MG/2 ML NEB NEB SCH ×2 (08:30→19:30)
[2016-09-14] MEDS: SODIUM CHLORIDE 0.9% FLUSH 10 ML FLUSH IV FLUSH SCH (09:00)
[2016-09-14] MEDS: DOCUSATE SODIUM 100 MG/10 ML UDC PO SCH ×2 (09:00→20:23)
[2016-09-14] MEDS: SODIUM CHLORIDE 0.9% FLUSH 5 ML FLUSH IVF SCH (09:00)
[2016-09-14] MEDS: COLLAGENASE OINT 30 GM TUBE TOP SCH (09:00)
[2016-09-14] MEDS: DEXMEDETOMIDINE 200 MCG/50 ML NS IV SCH ×4 (09:47→22:01)
--- NOTE | 2016-09-14 09:56 | HHI.IDPN ---
Subjective Subjective Remarks is a 71 y/o CM with COPD and oxygen dependent, Ashley esophagitis, prior h/o pneumonia. According to the since the patient was discharged he continued to have nausea and vomiting. He has not had any bowel movement, and she thinks in the last 3 weeks. Patient started having more weakness, and was getting more short of breath, so the patient presented back to the hospital and was admitted August 20. He was admitted as a COPD exacerbation and pneumonia. He was put on empiric antibiotics. Patient had in hospital cardiorespiratory arrest. He was successfully resuscitated, and intubated. Patient had an A- line in arm, CL in groin which was changed on 08/27/16. 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 Patient continues to have elevated WBC, and is being treated for sepsis secondary to aspiration PNA, Fungemia likely line related (groin line likely now DCed). Notes reviewed D/W RN Tolerating T-piece trials this weekend Problem with ileus again, has abdominal distension, but denies pain S/P trach 09/08 On the vent currently, to be placed on passey-erlinda valve Temps ok BP ok, not on pressors Sputum with Sten mal WBC normal CRISTHIAN negative Last (+) BC 08/27 with C glabrata First (+) BC with C albicans and C glabrata Follow up BC negative Has pseudoaneurysm R femoral artery Sputum 08/26 with Serratia Antibiotics Levaquin IV Micafungin (for fungal line infection) Lines PICC Past Medical History Hypertension COPD O2 dependent prostate cancer Bladder outlet obstruction Hyperlipidemia Past Surgical History Ventral hernia Appendectomy Perforated gastric ulcer surgery Cataract Upper and lower endoscopy Allergies: Coded Allergies: *MDRO Multi-Drug Resistant Organism (Verified Adverse Reaction, Unknown, ) MRSA (abdominal wound) 2015 per 04/10/2015 H&P MRSA PCR Screen #1 NEGATIVE - 08/21/16 Objective . Vital Signs Date Time Temp Pulse Resp B/P Pulse Ox O2 Delivery O2 Flow Rate FiO2 09/14/16 08:33 99 40 09/14/16 06:00 79 09/14/16 04:27 96 40 09/14/16 04:00 80 09/14/16 04:00 99.1 80 19 150/80 99 09/14/16 04:00 40 09/14/16 02:00 71 09/14/16 00:00 99.2 103 15 152/100 96 09/14/16 00:00 40 09/14/16 00:00 103 09/13/16 23:42 97 40 09/13/16 22:00 84 09/13/16 20:09 98 40 09/13/16 20:00 28 09/13/16 20:00 98.9 101 15 164/97 98 09/13/16 20:00 101 09/13/16 18:00 86 09/13/16 16:00 78 09/13/16 16:00 98.7 78 13 176/99 100 09/13/16 16:00 28 09/13/16 14:00 85 09/13/16 12:00 40 09/13/16 12:00 98.7 96 19 171/100 100 09/13/16 12:00 96 09/13/16 10:00 100 09/13/16 09/13/16 09/14/16 15:00 23:00 07:00 Intake Total 640 ml 431 ml 653 ml Output Total 1325 ml 375 ml 450 ml Balance -685 ml 56 ml 203 ml IV Total 540 ml 311 ml 353 ml Tube Irrigant 100 ml 120 ml 300 ml Output Urine Total 1275 ml 375 ml 400 ml Stool Total 50 ml 50 ml . Laboratory Tests Test 09/12/16 09/13/16 09/14/16 19:30 03:30 05:30 Hemoglobin 9.5 GM/DL 8.5 GM/DL 9.0 GM/DL Hematocrit 27.9 % 24.8 % 27.0 % White Blood Count 10.3 TH/MM3 7.3 TH/MM3 Red Blood Count 2.72 MIL/MM3 2.96 MIL/MM3 Mean Corpuscular Volume 91.2 FL 91.4 FL Mean Corpuscular Hemoglobin 31.2 PG 30.4 PG Mean Corpuscular Hemoglobin 34.2 % 33.3 % Concent Red Cell Distribution Width 18.4 % 18.9 % Platelet Count 152 TH/MM3 158 TH/MM3 Mean Platelet Volume 9.2 FL 9.1 FL Neutrophils (%) (Auto) 90.6 % 81.2 % Lymphocytes (%) (Auto) 4.1 % 7.0 % Monocytes (%) (Auto) 5.2 % 11.8 % Eosinophils (%) (Auto) 0.0 % 0.0 % Basophils (%) (Auto) 0.1 % 0.0 % Neutrophils # (Auto) 9.4 TH/MM3 5.9 TH/MM3 Lymphocytes # (Auto) 0.4 TH/MM3 0.5 TH/MM3 Monocytes # (Auto) 0.5 TH/MM3 0.9 TH/MM3 Eosinophils # (Auto) 0.0 TH/MM3 0.0 TH/MM3 Basophils # (Auto) 0.0 TH/MM3 0.0 TH/MM3 CBC Comment AUTO DIFF AUTO DIFF Differential Total Cells 100 100 Counted Neutrophils % (Manual) 86 % 78 % Band Neutrophils % 4 % 4 % Lymphocytes % 4 % 6 % Monocytes % 3 % 7 % Neutrophils # (Manual) 9.6 TH/MM3 6.4 TH/MM3 Metamyelocytes 1 % 1 % Myelocytes 2 % 4 % Differential Comment FINAL DIFF FINAL DIFF MANUAL MANUAL Platelet Estimate NORMAL NORMAL Platelet Morphology Comment NORMAL NORMAL Red Cell Morphology Comment Helmet Cells OCC Keratocytes OCC Laboratory Tests Test 09/12/16 09/13/16 09/14/16 19:30 03:30 05:30 Phosphorus Level 2.9 MG/DL 2.6 MG/DL Magnesium Level 1.8 MG/DL 1.7 MG/DL 1.5 MG/DL Sodium Level 147 MEQ/L 147 MEQ/L Potassium Level 3.3 MEQ/L 3.5 MEQ/L Chloride Level 109 MEQ/L 108 MEQ/L Carbon Dioxide Level 30.6 MEQ/L 29.7 MEQ/L Anion Gap 7 MEQ/L 9 MEQ/L Blood Urea Nitrogen 22 MG/DL 24 MG/DL Creatinine 0.67 MG/DL 0.66 MG/DL Estimat Glomerular Filtration 117 ML/MIN 119 ML/MIN Rate Random Glucose 142 MG/DL 124 MG/DL Calcium Level 8.2 MG/DL 8.2 MG/DL Imaging Chest X-Ray 09/08/16 1325 Signed Impressions: Service Date/Time: Thursday, September 08, 2016 13:37 - CONCLUSION: 1. Interval improvement of the interstitial infiltrates with minimal residual right basilar infiltrate noted. 2. Tracheostomy tube in good position approximately 5 cm above the michele. Lui Kim MD Chest X-Ray 09/06/16 0000 Signed Impressions: Service Date/Time: Tuesday, September 06, 2016 13:49 - CONCLUSION: 1. Interval intubation and placement of nasogastric tube. 2. Volume loss again noted left hemithorax with mediastinal shift. There is coarse infiltrate remaining in the left lung. Ian Horton MD Chest X-Ray 09/06/16 0000 Signed Impressions: Service Date/Time: Tuesday, September 06, 2016 08:50 - CONCLUSION: 1. Increasing density throughout the left hemithorax with volume loss suggesting mucus plugging. Eduardo Mcconnell MD Chest X-Ray 09/05/16 0500 Signed Impressions: Service Date/Time: Monday, September 05, 2016 03:49 - CONCLUSION: 1. Basilar airspace disease similar to prior exam. Support apparatus unchanged. Eleazar Jimenez MD Chest X-Ray 09/05/16 0500 Signed Impressions: Service Date/Time: Monday, September 05, 2016 03:49 - CONCLUSION: 1. Basilar airspace disease similar to prior exam. Support apparatus unchanged. Eleazar Jimenez MD Chest X-Ray 09/01/16 0600 Signed Impressions: Service Date/Time: Thursday, September 01, 2016 03:19 - CONCLUSION: No significant interval change in bilateral pulmonary parenchymal opacity and small bilateral pleural effusions. 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 There is concentric mural thrombus. This aneurysm is not amenable to thrombin injection. Polo Moore Jr., MD Chest X-Ray 08/27/16 0600 Signed Impressions: Service Date/Time: August 02:27 - CONCLUSION: 1. Patchy bilateral airspace disease with improving aeration/decreasing effusions in the bases bilaterally. 2. Stable position of life support tubes. Con Valdes MD Chest X-Ray 08/26/16 0754 Signed Impressions: Service Date/Time: Friday, August 26, 2016 08:14 - CONCLUSION: Left IJ central line distal tip in the SVC. No pneumothorax is visualized. There is a stable appearance the lungs with bilateral airspace consolidation. Lex Malik MD Chest X-Ray 08/26/16 0600 Signed Impressions: Service Date/Time: Friday, August 26, 2016 04:01 - CONCLUSION: 1. Worsening bibasilar effusions/atelectasis with diffuse interstitial edema, all characteristic of CHF. 2. Endotracheal tube remains appropriately positioned above the michele Con Valdes MD Chest X-Ray 08/26/16 0754 Signed Impressions: Service Date/Time: Friday, August 26, 2016 08:14 - CONCLUSION: Left IJ central line distal tip in the SVC. No pneumothorax is visualized. There is a stable appearance the lungs with bilateral airspace consolidation. Lex Malik MD Renal Ultrasound 08/25/16 0000 Signed Impressions: Service Date/Time: Wednesday, August 24, 2016 21:53 - CONCLUSION: 1. There is no hydronephrosis. Both kidneys demonstrate mild increased echotexture of the parenchyma suggesting medical renal disease. 2. Trace perihepatic free fluid and bilateral pleural effusions. Lex Malik MD Chest CT 08/25/16 0000 Signed Impressions: Service Date/Time: Thursday, August 25, 2016 21:20 - CONCLUSION: 1. Bilateral pneumonia and aspiration would be in the differential. There is dependent consolidation/atelectasis and small effusions of the bases as well. 2. Upper limits of normal to mildly enlarged mediastinal lymph nodes, most likely reactive. 3. Coronary artery calcification. 4. Right rib fractures, including acute fractures laterally of the third, fourth and fifth. There are old, healed fractures anteriorly of the right second and third ribs.. Lex Lopez MD Abdomen/Pelvis CT 08/25/16 0000 Signed Impressions: Service Date/Time: Thursday, August 25, 2016 20:20 - CONCLUSION: 1. Ventral hernia containing small bowel and with associated small bowel obstruction. The defect is broad; I believe the obstruction is probably related to scarring and/or adhesions within the hernia sac. I don't see a mass. 2. Distended stomach despite NG tube present. 3. Severe aortoiliac atherosclerosis. No aneurysm. Lex Lopez MD Abdomen X-Ray 08/24/16 0000 Signed Impressions: Service Date/Time: Wednesday, August 24, 2016 17:19 - CONCLUSION: 1. Small bowel dilatation which reflect ileus or obstruction. Followup examination is recommended if clinically indicated. Gareth Escalante MD Physical Exam GENERAL: awake, following, on the vent, NAD. On restraints SKIN: Warm and dry. No generalized rash HEENT: Full EOM. No scleral icterus. Moist oral mucosa, with dried crusted blood, some ulcers in tongue NECK: Trach site ok. Supple. CARDIOVASCULAR: Regular rate and rhythm without murmurs, gallops, or rubs. RESPIRATORY: Decreased breath sounds throughout both lung garcia. GASTROINTESTINAL: Abdomen soft, not tender, distended. Has a large midline hernia reducible. Has midline scar. No redness or tenderness noted in R groin MUSCULOSKELETAL: Extremities without clubbing, cyanosis. Edema better NEUROLOGICAL: Awake, non-focal PSYCH: Cooperative LINE: PICC no evidence of infection. Assessment & Plan Remarks IMPRESSION Sepsis present on admission and then sepsis again. Better Central line associated blood stream infection (CLABSI) related fungemia ( likely groin line) now discontinued. Arterial line discontinued as well. 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 - S/P Rx Now with Sten mal in sputum Recurrent respiratory failure, due to mucus plugging - S/P bronch Diarrhea ? Cdiff vs antibiotic associated. Status post cardiorespiratory arrest, likely aspirated Findings SBO within the hernia on CT A/P, clinically better Acute respiratory failure, extubated 09/05 - reintubated 09/06 GI bleed, stable Leukocytosis, up again, reactive due to resp decompensation COPD, oxygen dependent Previous GI bleed with workup showing gastritis, Ashley esophagitis, and polyps Large incisional ventral hernia Bladder outlet obstruction, currently has a Hammond Renal insufficiency RECOMMENDATION Continue Micafungin IV (C.glabrata fungemia) - plan at least 4 weeks from date of last (+) BC which is 08/27 - anticipated end date is September 23 Levaquin x 7 days, change back to IV Monitor progress Has possible pseudoaneurysm at site of femoral line, and will likely treat for 4 weeks with antifungal. Weaning per [facility] D/W Nuha Nguyen MD Sep 14, 2016 09:56
[2016-09-14] MEDS: MICAFUNGIN INJ 100 MG in SODIUM CHLORIDE 0.9% INJ 100 ML IV SCH (11:24)
[2016-09-14] MEDS: LEVOFLOXACIN 750 MG PREMIX INJ 150 ML IV SCH (14:00)
--- NOTE | 2016-09-14 14:53 | HHI.GIFU ---
Subjective Remarks Pt was on Passey [place] valve earlier today. Now back on vent. NGT to LIWS. Abdomen without significant distention. + liquid stool. (Ronna Aldrich) Objective Vitals I&O Vital Signs Date Time Temp Pulse Resp B/P Pulse Ox O2 Delivery O2 Flow Rate FiO2 09/14/16 08:33 99 40 09/14/16 08:00 40 09/14/16 08:00 97.9 94 11 159/93 98 09/14/16 08:00 94 09/14/16 06:00 79 09/14/16 04:27 96 40 09/14/16 04:00 80 09/14/16 04:00 99.1 80 19 150/80 99 09/14/16 04:00 40 09/14/16 02:00 71 09/14/16 00:00 99.2 103 15 152/100 96 09/14/16 00:00 40 09/14/16 00:00 103 09/13/16 23:42 97 40 09/13/16 22:00 84 09/13/16 20:09 98 40 09/13/16 20:00 28 09/13/16 20:00 98.9 101 15 164/97 98 09/13/16 20:00 101 09/13/16 18:00 86 09/13/16 16:00 78 09/13/16 16:00 98.7 78 13 176/99 100 09/13/16 16:00 28 I/O 09/13/16 09/13/16 09/13/16 09/14/16 09/14/16 09/14/16 07:00 15:00 23:00 07:00 15:00 23:00 Intake Total 316 ml 640 ml 431 ml 653 ml Output Total 425 ml 1325 ml 375 ml 450 ml Balance -109 ml -685 ml 56 ml 203 ml IV Total 256 ml 540 ml 311 ml 353 ml Tube Irrigant 60 ml 100 ml 120 ml 300 ml Output Urine Total 425 ml 1275 ml 375 ml 400 ml Stool Total 50 ml 50 ml Laboratory Laboratory Tests Test 09/14/16 05:30 White Blood Count 7.3 Red Blood Count 2.96 Hemoglobin 9.0 Hematocrit 27.0 Mean Corpuscular Volume 91.4 Mean Corpuscular Hemoglobin 30.4 Mean Corpuscular Hemoglobin 33.3 Concent Red Cell Distribution Width 18.9 Platelet Count 158 Mean Platelet Volume 9.1 Neutrophils (%) (Auto) 81.2 Lymphocytes (%) (Auto) 7.0 Monocytes (%) (Auto) 11.8 Eosinophils (%) (Auto) 0.0 Basophils (%) (Auto) 0.0 Neutrophils # (Auto) 5.9 Lymphocytes # (Auto) 0.5 Monocytes # (Auto) 0.9 Eosinophils # (Auto) 0.0 Basophils # (Auto) 0.0 CBC Comment AUTO DIFF Differential Total Cells 100 Counted Neutrophils % (Manual) 78 Band Neutrophils % 4 Lymphocytes % 6 Monocytes % 7 Neutrophils # (Manual) 6.4 Metamyelocytes 1 Myelocytes 4 Differential Comment FINAL DIFF MANUAL Platelet Estimate NORMAL Platelet Morphology Comment NORMAL Helmet Cells OCC Keratocytes OCC Sodium Level 147 Potassium Level 3.5 Chloride Level 108 Carbon Dioxide Level 29.7 Anion Gap 9 Blood Urea Nitrogen 24 Creatinine 0.66 Estimat Glomerular Filtration 119 Rate Random Glucose 124 Calcium Level 8.2 Phosphorus Level 2.6 Magnesium Level 1.5 Imaging Last Impressions Abdomen X-Ray 09/14/16 0600 Signed Impressions: Service Date/Time: Wednesday, September 14, 2016 03:56 - CONCLUSION: Gaseous distention of multiple bowel loops, likely ileus. 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 There is concentric mural thrombus. This aneurysm is not amenable to thrombin injection. Polo Moore Jr., MD Lung Scan- Nuclear Medicine 08/29/16 0000 Signed Impressions: Service Date/Time: Monday, August 29, 2016 10:20 - CONCLUSION: Low probability for pulmonary embolus. Lex Lopez MD Brain MRI 08/27/16 0000 Signed Impressions: Service Date/Time: August 15:13 - CONCLUSION: No evidence of acute infarct, hemorrhage, mass or edema. No findings to suggest significant anoxic injury. Kit Power MD Renal Ultrasound 08/25/16 0000 Signed Impressions: Service Date/Time: Wednesday, August 24, 2016 21:53 - CONCLUSION: 1. There is no hydronephrosis. Both kidneys demonstrate mild increased echotexture of the parenchyma suggesting medical renal disease. 2. Trace perihepatic free fluid and bilateral pleural effusions. Lex Malik MD Chest CT 08/25/16 0000 Signed Impressions: Service Date/Time: Thursday, August 25, 2016 21:20 - CONCLUSION: 1. Bilateral pneumonia and aspiration would be in the differential. There is dependent consolidation/atelectasis and small effusions of the bases as well. 2. Upper limits of normal to mildly enlarged mediastinal lymph nodes, most likely reactive. 3. Coronary artery calcification. 4. Right rib fractures, including acute fractures laterally of the third, fourth and fifth. There are old, healed fractures anteriorly of the right second and third ribs.. Lex Lopez MD Abdomen/Pelvis CT 08/25/16 0000 Signed Impressions: Service Date/Time: Thursday, August 25, 2016 20:20 - CONCLUSION: 1. Ventral hernia containing small bowel and with associated small bowel obstruction. The defect is broad; I believe the obstruction is probably related to scarring and/or adhesions within the hernia sac. I don't see a mass. 2. Distended stomach despite NG tube present. 3. Severe aortoiliac atherosclerosis. No aneurysm. Lex Lopez MD Physical Exam HEENT: Normocephalic; atraumatic; no jaundice. CHEST: Resp even. diminished. Tracheostomy. Diminished breath sounds CARDIAC: RRR ABDOMEN: Soft, nondistended, no hepatosplenomegaly; bowel sounds are present x 4 quadrants. Large ventral hernia reducible. Generalized edema. Rectal bag with liquid stool. SKIN: Skin cool to touch, dry [employer]: Sedated on vent. (Ronna AldrichP) Assessment and Plan Plan ASSESSMENT: - Reconsulted for Ileus. Abdomen X-Ray (09/14/16)----> Gaseous distention of multiple bowel loops, likely ileus. Colace, Reglan, Senna, Lactulose. (+) BM. Clinically, abdomen is soft, not distended. Large ventral hernia, reducible. Gastric output not recorded yet today, not much in canister. He was also evaluated by us for Ileus vs. Bowel obstruction earlier in month. At that time, Abdomen/Pelvis CT (08/25/16)----> 1. Ventral hernia containing small bowel and with associated small bowel obstruction. The defect is broad; I believe the obstruction is probably related to scarring and/or adhesions within the hernia sac. I don't see a mass. 2. Distended stomach despite NG tube present. 3. Severe aortoiliac atherosclerosis. No aneurysm. He was evaluated by GS at that time and they have signed off. - Reconsulted for PEG tube placement. S/P tracheostomy placement today. S/P EGD, Unsuccessful PEG tube placement (09/09/16)---> deformed pylorus/antrum, nodular mucosa-multiple biopsies taken, esophagitis distal esophagus, transillumination seen in the hernia sac, unable to place peg endoscopically, retroflexed views revealed a hiatal hernia. S/P GS evaluation for J tube placement, do not feel that they can place this. Will continue TF via NGT and hopefully he will be extubated soon and pass his swallow evaluation. - Massive GIB with older appearing dark maroon gastric secretions. IMPROVED. Pt is s/p CODE BLUE, vomiting large amount of dark maroon secretions on 08/24 and HH dropped to 5.4/16.7. According to the chart , he has a hx of perforated gastric ulcer. Recent EGD (08/10/16)---> mild gastritis, nodules in the EG junction, moderate esophagitis, normal endoscopy otherwise, retroflexed views revealed no abnormalities. Pathology revealed mild active chronic gastritis, nodule GE junction with gastric mucosa with mild chronic inflammation of the lamina propria and foveolar hyperplasia, acutely inflamed squamous mucosa and detached fragments of acute inflammatory exudate multiple budding yeast and pseudohyphae are present in exudate, acutely ulcerated mucosa of distal esophagus with numerous budding yeast and pseudohyphae invading tissue, consistent with mary kay esophagitis. Colonoscopy (08/11/16) with polypectomy and ablation of polyp in ascending colon with hot snare. Ascending colon with markedly cauterized colonic mucosa with features suggestive of hyperplastic polyp. S/P EGD (08/26/16)-----> Proximal esophageal lesion possibly vascular in nature , Incomplete evaluation of the stomach, Deformed pylorus. S/P CT chest (08/25/16)-----> 1. Bilateral pneumonia and aspiration would be in the differential. There is dependent consolidation/atelectasis and small effusions of the bases as well. 2. Upper limits of normal to mildly enlarged mediastinal lymph nodes, most likely reactive. 3. Coronary artery calcification. 4. Right rib fractures, including acute fractures laterally of the third, fourth and fifth. There are old, healed fractures anteriorly of the right second and third ribs. At this time, he does not appear to be having active bleeding. Okay to start TF. Possible EGD next week. Protonix Gtt. Micafungin. Not having active GI bleeding at this time. - Anemia secondary acute blood loss. S/P 5 units PRBC, 2 units FFP. HH has since remained stable. 9.0/26.7. - Recent mary kay esophagitis/Bcx with yeast. Micafungin per ID - S/P CODE BLUE (08/24). Pt with ROSC after 15 MN. . - Acute respiratory failure with COPD and suspected HCAP. Required reintubation. S/P tracheostomy - Large Ventral hernia, reducible. per Dr. Roberts - Sepsis, Severe leukocytosis, improving. Rpt Bx growing yeast. ID following. Abx Zosyn, micafungin, PLAN: - NPO - NGT to LIWS - Record gastric output - Cont. Reglan - Cont. Colace - Cont. Lactulose - Cont. Senna - Cont. PPI - KUB in am - Monitor labs - Supportive care - If persistent or worsening, consider repeat CT scan - Patient seen and examined by Dr. Obrien and myself and this note is written on his behalf (Ronna Aldrich) Physician Comments Patient seen and examined Agree with above Continue with current supportive care Monitor labs Currently abdomen is soft with no distention with liquidy stools through the rectal bag Can always entertain Relistor if needed But continue with current supportive care for the time being (Joe Obrien MD) Ronna Aldrich Sep 14, 2016 14:53 Joe Obrien MD Sep 14, 2016 22:25
--- NOTE | 2016-09-14 15:35 | HHI.PR ---
Subjective Subjective Notes Resting in bed Daughter at bedside Objective Vitals/I&O Vital Signs Date Time Temp Pulse Resp B/P Pulse Ox O2 Delivery O2 Flow Rate FiO2 09/14/16 08:33 99 40 09/14/16 08:00 97.9 94 11 159/93 09/13/16 08:50 T-piece 6.00 Labs Laboratory Tests Test 09/14/16 05:30 White Blood Count 7.3 Red Blood Count 2.96 Hemoglobin 9.0 Hematocrit 27.0 Mean Corpuscular Volume 91.4 Mean Corpuscular Hemoglobin 30.4 Mean Corpuscular Hemoglobin 33.3 Concent Red Cell Distribution Width 18.9 Platelet Count 158 Mean Platelet Volume 9.1 Neutrophils (%) (Auto) 81.2 Lymphocytes (%) (Auto) 7.0 Monocytes (%) (Auto) 11.8 Eosinophils (%) (Auto) 0.0 Basophils (%) (Auto) 0.0 Neutrophils # (Auto) 5.9 Lymphocytes # (Auto) 0.5 Monocytes # (Auto) 0.9 Eosinophils # (Auto) 0.0 Basophils # (Auto) 0.0 CBC Comment AUTO DIFF Differential Total Cells 100 Counted Neutrophils % (Manual) 78 Band Neutrophils % 4 Lymphocytes % 6 Monocytes % 7 Neutrophils # (Manual) 6.4 Metamyelocytes 1 Myelocytes 4 Differential Comment FINAL DIFF MANUAL Platelet Estimate NORMAL Platelet Morphology Comment NORMAL Helmet Cells OCC Keratocytes OCC Sodium Level 147 Potassium Level 3.5 Chloride Level 108 Carbon Dioxide Level 29.7 Anion Gap 9 Blood Urea Nitrogen 24 Creatinine 0.66 Estimat Glomerular Filtration 119 Rate Random Glucose 124 Calcium Level 8.2 Phosphorus Level 2.6 Magnesium Level 1.5 Cardiovascular: Regular Lungs: Clear Abdomen: Non-tender, Other (mildly distended ) Extremities: No edema A/P Assessment and Plan 71 year old male s/p cardiac arrest with SBO versus ileus; patient known to Dr. Diaz for large ventral hernia -s/p trach placement; on CPAP trial; tolerated PM valve today for a few hours -Continue NGT and hold off on permanent feeding placement while weaning off vent -+BM -GS will see peripherally I CERTIFY AND ATTEST THAT I PERSONALLY EXAMINED THIS PATIENT IN THEIR ROOM WITH THE DESIGN SUPERVISOR PRESENT. MS MEZA IS DOCUMENTING OUR VISIT IN THE EMR AND ENTERED ORDERS UNDER MY DIRECT SUPERVISION. I DISCUSSED THE CARE PLAN WITH THE PATIENT AND THEIR [facility] STAFF. TANESHA DAIZ MD FACS Olivia Meza Sep 14, 2016 15:35 Tanesha Diaz MD Sep 19, 2016 13:44
[2016-09-14] MEDS: RESP: ALBUTEROL 2.5 MG/IPRATROPIUM 0.5 MG NEB (PRN) INH (19:30)
[2016-09-14] MEDS: LORazepam 2 MG/ML VIAL IV PUSH PRN (21:03)
[2016-09-14] MEDS ORDERED: KETOROLAC TROMETHAMINE 30 MG/ML (IVP) VIAL IV PUSH PRN (22:30)
[2016-09-15] VITALS (18 sets, daily range): BP systolic 125–180; BP diastolic 73–91; PULSE 60–90; RESP 16; TEMP 97.9–98.1; O2SAT 92–99
[2016-09-15] MEDS: METOCLOPRAMIDE HCL 10 MG/2 ML VIAL IV PUSH SCH ×4 (00:13→23:40)
[2016-09-15] MEDS: methylPREDNISolone SOD SUCC 40 MG/1 ML VIAL IV PUSH SCH ×2 (04:00→16:00)
--- NOTE | 2016-09-15 05:08 | RADRPT ---
EXAM DATE/TIME: 09/15/2016 03:16 [place] COMPARISON: ABDOMEN KUB ONLY, September 14, 2016, 3:56. INDICATIONS : Abdominal pain. Ileus. MEDICAL HISTORY : Chronic obstructive pulmonary disease. Emphysema. SURGICAL HISTORY : None. ENCOUNTER: Subsequent ACUITY: 3 weeks PAIN SCORE: Non-responsive. LOCATION: abdomen. FINDINGS: There is improved gaseous distention of bowel compared with September 14. No free air. No acute bony abno rmalities. Degenerative changes in the spine. CONCLUSION: 1. Improved gaseous distention of bowel since September 14. Mild distention persists. Eleazar Jimenez MD on September 15, 2016 at 5:05 Board Certified Radiologist. This report was verified electronically.
[2016-09-15 05:42] LABS: AUTOMATED NEUTROPHIL # 6.4 TH/MM3 (1.8-7.7); BASOPHIL % 0.1 % (0.0-2.0); HEMATOCRIT 24.5 % (39.0-51.0); HEMO FLAGS DIFF FINAL; LYMPH % 5.5 % (9.0-44.0); LYMPHOCYTE # 0.4 TH/MM3 (1.0-4.8); MEAN CORPUSCULAR HEMOGLOBIN 31.1 PG (27.0-34.0); MEAN CORPUSCULAR HGB CONC 34.2 % (32.0-36.0); MONO % 9.4 % (0.0-8.0); PLATELET COUNT 114 TH/MM3 (150-450); RED BLOOD COUNT 2.69 MIL/MM3 (4.50-5.90); RED CELL DISTRIBUTION WIDTH 18.7 % (11.6-17.2); WHITE BLOOD COUNT 7.5 TH/MM3 (4.0-11.0)
[2016-09-15] MEDS: INSULIN NovoLIN REGULAR SUPPLEMENTAL SCALE SQ SCH ×5 (05:46→23:40)
[2016-09-15] MEDS: hydrALAZINE HCL 50 MG TAB PO SCH ×3 (05:46→20:04)
[2016-09-15] MEDS: FREE WATER G-TUBE SCH ×4 (06:00→23:40)
[2016-09-15 06:02] LABS: BICARBONATE 29.5 MEQ/L (21.0-32.0); POTASSIUM 3.4 MEQ/L (3.5-5.1)
[2016-09-15] MEDS: DEXMEDETOMIDINE 200 MCG/50 ML NS IV SCH ×3 (06:26→20:06)
[2016-09-15] MEDS: POTASSIUM CHLOR 40 MEQ PREMIX 100 ML IV PRN (06:27)
[2016-09-15] MEDS: RESP: BUDESONIDE 0.5 MG/2 ML NEB NEB SCH ×2 (07:56→20:35)
[2016-09-15] MEDS: CHLORHEXIDINE GLUCONATE 0.12% 30 ML CUP MT SCH ×2 (08:00→19:18)
[2016-09-15] MEDS: SODIUM CHLORIDE 0.9% FLUSH 10 ML FLUSH IV FLUSH SCH (09:00)
[2016-09-15] MEDS: PANTOPRAZOLE SODIUM 40 MG VIAL IV PUSH SCH ×2 (09:00→20:04)
[2016-09-15] MEDS: SENNOSIDES SYRUP 8.8 MG/5 ML CUP PO SCH (09:00)
[2016-09-15] MEDS: DILTIAZEM HCL 60 MG TAB PO SCH ×4 (09:00→20:03)
[2016-09-15] MEDS: LACTULOSE SYRUP 20 GM/30 ML CUP PO SCH ×4 (09:00→20:03)
[2016-09-15] MEDS: DOCUSATE SODIUM 100 MG/10 ML UDC PO SCH ×2 (09:00→20:03)
[2016-09-15] MEDS: COLLAGENASE OINT 30 GM TUBE TOP SCH (09:00)
[2016-09-15] MEDS: SODIUM CHLORIDE 0.9% FLUSH 5 ML FLUSH IVF SCH (09:00)
--- NOTE | 2016-09-15 10:40 | HHI.GIFU ---
Subjective Remarks Up in chair. Nurse reports that he pulled out NGT and didn't want this replaced. Explained to patient and nurse that he will need this replaced not only for ileus, but for nutrition, as he is unable to have PEG tube placed endoscopically and surgery did not feel they could place J tube. (Ronna Aldrich) Objective Vitals I&O Vital Signs Date Time Temp Pulse Resp B/P Pulse Ox O2 Delivery O2 Flow Rate FiO2 09/15/16 08:02 96 Trach Collar 50 09/15/16 08:01 50 09/15/16 08:00 98.1 90 16 139/83 99 09/15/16 08:00 40 09/15/16 08:00 89 09/15/16 06:00 89 09/15/16 05:45 22 09/15/16 04:05 94 40 09/15/16 04:00 40 09/15/16 04:00 98.1 60 16 129/78 99 09/15/16 04:00 60 09/15/16 02:00 61 09/15/16 01:23 96 40 09/15/16 00:00 62 09/15/16 00:00 40 09/15/16 00:00 97.9 62 16 125/74 92 09/14/16 22:12 92 40 09/14/16 22:00 92 09/14/16 20:00 97 09/14/16 20:00 98.0 91 22 164/87 95 09/14/16 20:00 40 09/14/16 19:26 100 40 09/14/16 18:02 65 09/14/16 16:00 97.2 70 17 121/97 97 09/14/16 16:00 70 09/14/16 16:00 40 09/14/16 15:52 97 40 09/14/16 14:00 54 09/14/16 13:25 40 09/14/16 12:00 96.8 65 19 125/70 92 09/14/16 12:00 40 09/14/16 12:00 65 I/O 09/14/16 09/14/16 09/14/16 09/15/16 09/15/16 09/15/16 07:00 15:00 23:00 07:00 15:00 23:00 Intake Total 653 ml 315 ml 58 ml Output Total 450 ml 1300 ml 500 ml Balance 203 ml -985 ml -442 ml IV Total 353 ml 315 ml 58 ml Tube Irrigant 300 ml Output Urine Total 400 ml 650 ml 250 ml Stool Total 50 ml 250 ml 250 ml Gastric Drainage Total 400 ml Laboratory Laboratory Tests Test 09/15/16 04:50 White Blood Count 7.5 Red Blood Count 2.69 Hemoglobin 8.4 Hematocrit 24.5 Mean Corpuscular Volume 91.0 Mean Corpuscular Hemoglobin 31.1 Mean Corpuscular Hemoglobin 34.2 Concent Red Cell Distribution Width 18.7 Platelet Count 114 Mean Platelet Volume 9.0 Neutrophils (%) (Auto) 85.0 Lymphocytes (%) (Auto) 5.5 Monocytes (%) (Auto) 9.4 Eosinophils (%) (Auto) 0.0 Basophils (%) (Auto) 0.1 Neutrophils # (Auto) 6.4 Lymphocytes # (Auto) 0.4 Monocytes # (Auto) 0.7 Eosinophils # (Auto) 0.0 Basophils # (Auto) 0.0 CBC Comment DIFF FINAL Differential Comment Sodium Level 147 Potassium Level 3.4 Chloride Level 110 Carbon Dioxide Level 29.5 Anion Gap 8 Blood Urea Nitrogen 24 Creatinine 0.74 Estimat Glomerular Filtration 105 Rate Random Glucose 134 Calcium Level 8.3 Imaging Last Impressions Abdomen X-Ray 09/15/16 0600 Signed Impressions: Service Date/Time: Thursday, September 15, 2016 03:16 - CONCLUSION: 1. Improved gaseous distention of bowel since September 14. Mild distention persists. 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 There is concentric mural thrombus. This aneurysm is not amenable to thrombin injection. Polo Moore Jr., MD Lung Scan- Nuclear Medicine 08/29/16 0000 Signed Impressions: Service Date/Time: Monday, August 29, 2016 10:20 - CONCLUSION: Low probability for pulmonary embolus. Lex Lopez MD Brain MRI 3/9/17 0000 Signed Impressions: Service Date/Time: August 15:13 - CONCLUSION: No evidence of acute infarct, hemorrhage, mass or edema. No findings to suggest significant anoxic injury. Kit Power MD Renal Ultrasound 08/25/16 0000 Signed Impressions: Service Date/Time: Wednesday, August 24, 2016 21:53 - CONCLUSION: 1. There is no hydronephrosis. Both kidneys demonstrate mild increased echotexture of the parenchyma suggesting medical renal disease. 2. Trace perihepatic free fluid and bilateral pleural effusions. Lex Malik MD Chest CT 08/25/16 0000 Signed Impressions: Service Date/Time: Thursday, August 25, 2016 21:20 - CONCLUSION: 1. Bilateral pneumonia and aspiration would be in the differential. There is dependent consolidation/atelectasis and small effusions of the bases as well. 2. Upper limits of normal to mildly enlarged mediastinal lymph nodes, most likely reactive. 3. Coronary artery calcification. 4. Right rib fractures, including acute fractures laterally of the third, fourth and fifth. There are old, healed fractures anteriorly of the right second and third ribs.. Lex Lopez MD Abdomen/Pelvis CT 08/25/16 0000 Signed Impressions: Service Date/Time: Thursday, August 25, 2016 20:20 - CONCLUSION: 1. Ventral hernia containing small bowel and with associated small bowel obstruction. The defect is broad; I believe the obstruction is probably related to scarring and/or adhesions within the hernia sac. I don't see a mass. 2. Distended stomach despite NG tube present. 3. Severe aortoiliac atherosclerosis. No aneurysm. Lex Lopez MD Physical Exam HEENT: Normocephalic; atraumatic; no jaundice. CHEST: Resp even. diminished. Tracheostomy- Passy Emily valve with trach collar. Diminished breath sounds CARDIAC: RRR ABDOMEN: Soft, nondistended, no hepatosplenomegaly; bowel sounds are present x 4 quadrants. Large ventral hernia reducible. Generalized edema. Rectal bag with liquid stool. SKIN: Skin cool to touch, dry RADIOLOGY EQUIPMENT SERVICER: Sedated on vent. (Ronna Aldrich) Assessment and Plan Plan ASSESSMENT: - Ileus. Abdomen X-Ray (09/15/16)----> 1. Improved gaseous distention of bowel since September 14. Mild distention persists. He was also evaluated by us for Ileus vs. Bowel obstruction earlier in month. At that time, Abdomen/Pelvis CT (08/25/16)----> 1. Ventral hernia containing small bowel and with associated small bowel obstruction. The defect is broad; I believe the obstruction is probably related to scarring and/or adhesions within the hernia sac. I don't see a mass. 2. Distended stomach despite NG tube present. 3. Severe aortoiliac atherosclerosis. No aneurysm. He was evaluated by GS at that time and they have signed off. Abdomen soft, nontender. NGT pulled out, nurse states patient did not want replaced. Explained to patient and nurse that he will need to have NGT placed not only for ileus, but for nutrition. Colace, Reglan, Senna, Lactulose. (+) BM. Clinically, abdomen is soft, not distended. Large ventral hernia, reducible. He seems to be improving. We can start trickle feeds once NGT replaced. - Reconsulted for PEG tube placement. S/P tracheostomy placement today. S/P EGD, Unsuccessful PEG tube placement (09/09/16)---> deformed pylorus/antrum, nodular mucosa-multiple biopsies taken, esophagitis distal esophagus, transillumination seen in the hernia sac, unable to place peg endoscopically, retroflexed views revealed a hiatal hernia. S/P GS evaluation for J tube placement, do not feel that they can place this. Will continue TF via NGT and hopefully he will be extubated soon and pass his swallow evaluation. - Massive GIB with older appearing dark maroon gastric secretions. IMPROVED. Pt is s/p CODE BLUE, vomiting large amount of dark maroon secretions on 08/24 and HH dropped to 5.4/16.7. According to the chart , he has a hx of perforated gastric ulcer. Recent EGD (08/10/16)---> mild gastritis, nodules in the EG junction, moderate esophagitis, normal endoscopy otherwise, retroflexed views revealed no abnormalities. Pathology revealed mild active chronic gastritis, nodule GE junction with gastric mucosa with mild chronic inflammation of the lamina propria and foveolar hyperplasia, acutely inflamed squamous mucosa and detached fragments of acute inflammatory exudate multiple budding yeast and pseudohyphae are present in exudate, acutely ulcerated mucosa of distal esophagus with numerous budding yeast and pseudohyphae invading tissue, consistent with mary kay esophagitis. Colonoscopy (08/11/16) with polypectomy and ablation of polyp in ascending colon with hot snare. Ascending colon with markedly cauterized colonic mucosa with features suggestive of hyperplastic polyp. S/P EGD (08/26/16)-----> Proximal esophageal lesion possibly vascular in nature , Incomplete evaluation of the stomach, Deformed pylorus. S/P CT chest (08/25/16)-----> 1. Bilateral pneumonia and aspiration would be in the differential. There is dependent consolidation/atelectasis and small effusions of the bases as well. 2. Upper limits of normal to mildly enlarged mediastinal lymph nodes, most likely reactive. 3. Coronary artery calcification. 4. Right rib fractures, including acute fractures laterally of the third, fourth and fifth. There are old, healed fractures anteriorly of the right second and third ribs. At this time, he does not appear to be having active bleeding. Okay to start TF. Possible EGD next week. Protonix Gtt. Micafungin. Not having active GI bleeding at this time. - Anemia secondary acute blood loss. S/P 5 units PRBC, 2 units FFP. HH has since remained stable. 9.0/26.7. - Recent mary kay esophagitis/Bcx with yeast. Micafungin per ID - S/P CODE BLUE (08/24). Pt with ROSC after 15 MN. . - Acute respiratory failure with COPD and suspected HCAP. Required reintubation. S/P tracheostomy - Large Ventral hernia, reducible. S/P GS evaluation. - Sepsis, Severe leukocytosis, improving. Rpt Bx growing yeast. ID following. Abx Levaquin, micafungin, PLAN: - Replace NGT- d/w nurse and patient - Okay to start trickle feeds, Jevity 1.5 at 20cc/hr - Cont. Reglan - Cont. Colace - Cont. Lactulose - Cont. Senna - Cont. PPI - Change Theragran to Theragran M - Monitor labs - Supportive care - Of note, Surface Miner recommends Jevity 1.5 with goal rate 50 ml/hr, Brady 1 pkt bid. Mix until dissolved 1 packet with 8-10 oz water and administer by syringe through feeding tube, Change Theragran to Theragran M daily - Patient seen and examined by Dr. Obrien and myself and this note is written on his behalf (Ronna Aldrich) Physician Comments Patient seen and examined Agree with above Continue with current supportive care Monitor labs Patient has again pulled out his NG tube and at this point the only salivation would be to have the general surgery service assess for surgically placed J-tube I will defer to attending physician to discuss with surgery The ileus seems to have resolved and little is needed from a GI perspective We will sign off (Joe Obrien MD) Ronna Aldrich Sep 15, 2016 10:40 Joe Obrien MD Sep 15, 2016 21:49
--- NOTE | 2016-09-15 10:45 | HHI.IDPN ---
Subjective Subjective Remarks is a 71 y/o CM with COPD and oxygen dependent, Ashley esophagitis, prior h/o pneumonia. According to the since the patient was discharged he continued to have nausea and vomiting. He has not had any bowel movement, and she thinks in the last 3 weeks. Patient started having more weakness, and was getting more short of breath, so the patient presented back to the hospital and was admitted August 20. He was admitted as a COPD exacerbation and pneumonia. He was put on empiric antibiotics. Patient had in hospital cardiorespiratory arrest. He was successfully resuscitated, and intubated. Patient had an A- line in arm, CL in groin which was changed on 08/27/16. 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 Patient continues to have elevated WBC, and is being treated for sepsis secondary to aspiration PNA, Fungemia likely line related (groin line likely now DCed). Notes reviewed D/W RN On T-piece this morning Patient pulled his NGT - RN placing new NGT Temps ok S/P trach 09/08 BP ok, not on pressors Last Sputum with Sten mal CRISTHIAN negative Last (+) BC 08/27 with C glabrata First (+) BC with C albicans and C glabrata Follow up BC negative Has pseudoaneurysm R femoral artery Antibiotics Levaquin IV Micafungin (for fungal line infection) Lines PICC - 09/11 Past Medical History Hypertension COPD O2 dependent prostate cancer Bladder outlet obstruction Hyperlipidemia Past Surgical History Ventral hernia Appendectomy Perforated gastric ulcer surgery Cataract Upper and lower endoscopy Allergies: Coded Allergies: *MDRO Multi-Drug Resistant Organism (Verified Adverse Reaction, Unknown, ) MRSA (abdominal wound) 2015 per 04/10/2015 H&P MRSA PCR Screen #1 NEGATIVE - 08/21/16 Objective . Vital Signs Date Time Temp Pulse Resp B/P Pulse Ox O2 Delivery O2 Flow Rate FiO2 09/15/16 10:00 89 09/15/16 08:02 96 Trach Collar 50 09/15/16 08:01 50 09/15/16 08:00 98.1 90 16 139/83 99 09/15/16 08:00 40 09/15/16 08:00 89 09/15/16 06:00 89 09/15/16 05:45 22 09/15/16 04:05 94 40 09/15/16 04:00 40 09/15/16 04:00 98.1 60 16 129/78 99 09/15/16 04:00 60 09/15/16 02:00 61 09/15/16 01:23 96 40 09/15/16 00:00 62 09/15/16 00:00 40 09/15/16 00:00 97.9 62 16 125/74 92 09/14/16 22:12 92 40 09/14/16 22:00 92 09/14/16 20:00 97 09/14/16 20:00 98.0 91 22 164/87 95 09/14/16 20:00 40 09/14/16 19:26 100 40 09/14/16 18:02 65 09/14/16 16:00 97.2 70 17 121/97 97 09/14/16 16:00 70 09/14/16 16:00 40 09/14/16 15:52 97 40 09/14/16 14:00 54 09/14/16 13:25 40 09/14/16 12:00 96.8 65 19 125/70 92 09/14/16 12:00 40 09/14/16 12:00 65 09/14/16 09/14/16 09/15/16 15:00 23:00 07:00 Intake Total 315 ml 58 ml Output Total 1300 ml 500 ml Balance -985 ml -442 ml IV Total 315 ml 58 ml Output Urine Total 650 ml 250 ml Stool Total 250 ml 250 ml Gastric Drainage Total 400 ml . Laboratory Tests Test 09/14/16 09/15/16 05:30 04:50 White Blood Count 7.3 TH/MM3 7.5 TH/MM3 Red Blood Count 2.96 MIL/MM3 2.69 MIL/MM3 Hemoglobin 9.0 GM/DL 8.4 GM/DL Hematocrit 27.0 % 24.5 % Mean Corpuscular Volume 91.4 FL 91.0 FL Mean Corpuscular Hemoglobin 30.4 PG 31.1 PG Mean Corpuscular Hemoglobin 33.3 % 34.2 % Concent Red Cell Distribution Width 18.9 % 18.7 % Platelet Count 158 TH/MM3 114 TH/MM3 Mean Platelet Volume 9.1 FL 9.0 FL Neutrophils (%) (Auto) 81.2 % 85.0 % Lymphocytes (%) (Auto) 7.0 % 5.5 % Monocytes (%) (Auto) 11.8 % 9.4 % Eosinophils (%) (Auto) 0.0 % 0.0 % Basophils (%) (Auto) 0.0 % 0.1 % Neutrophils # (Auto) 5.9 TH/MM3 6.4 TH/MM3 Lymphocytes # (Auto) 0.5 TH/MM3 0.4 TH/MM3 Monocytes # (Auto) 0.9 TH/MM3 0.7 TH/MM3 Eosinophils # (Auto) 0.0 TH/MM3 0.0 TH/MM3 Basophils # (Auto) 0.0 TH/MM3 0.0 TH/MM3 CBC Comment AUTO DIFF DIFF FINAL Differential Total Cells 100 Counted Neutrophils % (Manual) 78 % Band Neutrophils % 4 % Lymphocytes % 6 % Monocytes % 7 % Neutrophils # (Manual) 6.4 TH/MM3 Metamyelocytes 1 % Myelocytes 4 % Differential Comment FINAL DIFF MANUAL Platelet Estimate NORMAL Platelet Morphology Comment NORMAL Helmet Cells OCC Keratocytes OCC Laboratory Tests Test 09/14/16 09/15/16 05:30 04:50 Sodium Level 147 MEQ/L 147 MEQ/L Potassium Level 3.5 MEQ/L 3.4 MEQ/L Chloride Level 108 MEQ/L 110 MEQ/L Carbon Dioxide Level 29.7 MEQ/L 29.5 MEQ/L Anion Gap 9 MEQ/L 8 MEQ/L Blood Urea Nitrogen 24 MG/DL 24 MG/DL Creatinine 0.66 MG/DL 0.74 MG/DL Estimat Glomerular Filtration 119 ML/MIN 105 ML/MIN Rate Random Glucose 124 MG/DL 134 MG/DL Calcium Level 8.2 MG/DL 8.3 MG/DL Phosphorus Level 2.6 MG/DL Magnesium Level 1.5 MG/DL Imaging Chest X-Ray 09/08/16 1325 Signed Impressions: Service Date/Time: Thursday, September 08, 2016 13:37 - CONCLUSION: 1. Interval improvement of the interstitial infiltrates with minimal residual right basilar infiltrate noted. 2. Tracheostomy tube in good position approximately 5 cm above the michele. Lui Kim MD Chest X-Ray 09/06/16 0000 Signed Impressions: Service Date/Time: Tuesday, September 06, 2016 13:49 - CONCLUSION: 1. Interval intubation and placement of nasogastric tube. 2. Volume loss again noted left hemithorax with mediastinal shift. There is coarse infiltrate remaining in the left lung. Ian Horton MD Chest X-Ray 09/06/16 0000 Signed Impressions: Service Date/Time: Tuesday, September 06, 2016 08:50 - CONCLUSION: 1. Increasing density throughout the left hemithorax with volume loss suggesting mucus plugging. Eduardo Mcconnell MD Chest X-Ray 09/05/16 0500 Signed Impressions: Service Date/Time: Monday, September 05, 2016 03:49 - CONCLUSION: 1. Basilar airspace disease similar to prior exam. Support apparatus unchanged. Eleazar Jimenez MD Chest X-Ray 09/05/16 0500 Signed Impressions: Service Date/Time: Monday, September 05, 2016 03:49 - CONCLUSION: 1. Basilar airspace disease similar to prior exam. Support apparatus unchanged. Eleazar Jimenez MD Chest X-Ray 09/01/16 0600 Signed Impressions: Service Date/Time: Thursday, September 01, 2016 03:19 - CONCLUSION: No significant interval change in bilateral pulmonary parenchymal opacity and small bilateral pleural effusions. 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 There is concentric mural thrombus. This aneurysm is not amenable to thrombin injection. Polo Moore Jr., MD Chest X-Ray 08/27/16 0600 Signed Impressions: Service Date/Time: August 02:27 - CONCLUSION: 1. Patchy bilateral airspace disease with improving aeration/decreasing effusions in the bases bilaterally. 2. Stable position of life support tubes. Con Valdes MD Chest X-Ray 08/26/16 0754 Signed Impressions: Service Date/Time: Friday, August 26, 2016 08:14 - CONCLUSION: Left IJ central line distal tip in the SVC. No pneumothorax is visualized. There is a stable appearance the lungs with bilateral airspace consolidation. Lex Malik MD Chest X-Ray 08/26/16 0600 Signed Impressions: Service Date/Time: Friday, August 26, 2016 04:01 - CONCLUSION: 1. Worsening bibasilar effusions/atelectasis with diffuse interstitial edema, all characteristic of CHF. 2. Endotracheal tube remains appropriately positioned above the michele Con Valdes MD Chest X-Ray 08/26/16 0754 Signed Impressions: Service Date/Time: Friday, August 26, 2016 08:14 - CONCLUSION: Left IJ central line distal tip in the SVC. No pneumothorax is visualized. There is a stable appearance the lungs with bilateral airspace consolidation. Lex Malik MD Renal Ultrasound 08/25/16 0000 Signed Impressions: Service Date/Time: Wednesday, August 24, 2016 21:53 - CONCLUSION: 1. There is no hydronephrosis. Both kidneys demonstrate mild increased echotexture of the parenchyma suggesting medical renal disease. 2. Trace perihepatic free fluid and bilateral pleural effusions. Lex Malik MD Chest CT 08/25/16 0000 Signed Impressions: Service Date/Time: Thursday, August 25, 2016 21:20 - CONCLUSION: 1. Bilateral pneumonia and aspiration would be in the differential. There is dependent consolidation/atelectasis and small effusions of the bases as well. 2. Upper limits of normal to mildly enlarged mediastinal lymph nodes, most likely reactive. 3. Coronary artery calcification. 4. Right rib fractures, including acute fractures laterally of the third, fourth and fifth. There are old, healed fractures anteriorly of the right second and third ribs.. Lex Lopez MD Abdomen/Pelvis CT 08/25/16 0000 Signed Impressions: Service Date/Time: Thursday, August 25, 2016 20:20 - CONCLUSION: 1. Ventral hernia containing small bowel and with associated small bowel obstruction. The defect is broad; I believe the obstruction is probably related to scarring and/or adhesions within the hernia sac. I don't see a mass. 2. Distended stomach despite NG tube present. 3. Severe aortoiliac atherosclerosis. No aneurysm. Lex Lopez MD Abdomen X-Ray 08/24/16 0000 Signed Impressions: Service Date/Time: Wednesday, August 24, 2016 17:19 - CONCLUSION: 1. Small bowel dilatation which reflect ileus or obstruction. Followup examination is recommended if clinically indicated. Gareth Escalante MD Physical Exam GENERAL: awake, following, on T-piece, NAD. Up in stretcher chair SKIN: Warm and dry. No generalized rash HEENT: No scleral icterus. Moist oral mucosa NECK: Trach site ok. Supple. CARDIOVASCULAR: Regular rate and rhythm without murmurs, gallops, or rubs. RESPIRATORY: Decreased breath sounds throughout both lung garcia. GASTROINTESTINAL: Abdomen soft, not tender, distended. Has a large midline hernia reducible. Has midline scar. No redness or tenderness noted in R groin MUSCULOSKELETAL: Extremities without clubbing, cyanosis. Edema better NEUROLOGICAL: Awake, non-focal PSYCH: Cooperative LINE: PICC no evidence of infection. Assessment & Plan Remarks IMPRESSION Sepsis present on admission and then sepsis again. Better Central line associated blood stream infection (CLABSI) related fungemia ( likely groin line) now discontinued. Arterial line discontinued as well. 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 - S/P Rx Now with Sten mal in sputum Recurrent respiratory failure, due to mucus plugging - S/P bronch Diarrhea ? Cdiff vs antibiotic associated. Status post cardiorespiratory arrest, likely aspirated Findings SBO within the hernia on CT A/P, clinically better Acute respiratory failure, extubated 09/05 - reintubated 09/06 GI bleed, stable Leukocytosis, up again, reactive due to resp decompensation COPD, oxygen dependent Previous GI bleed with workup showing gastritis, Ashley esophagitis, and polyps Large incisional ventral hernia Bladder outlet obstruction, currently has a Hammond Renal insufficiency RECOMMENDATION Continue Micafungin IV (C.glabrata fungemia) - plan at least 4 weeks from date of last (+) BC which is 08/27 - anticipated end date is September 23 Levaquin x 7 days Monitor progress Has possible pseudoaneurysm at site of femoral line, and will likely treat for 4 weeks with antifungal. Weaning per CCM D/W Nuha Nguyen MD Sep 15, 2016 10:45
--- NOTE | 2016-09-15 10:48 | HHI.CCPN ---
Subjective Remarks/Hospital Course 08/24: 71 Year-old male with a medical history significant for COPD on home oxygen who was recently admitted with suspected sepsis/H And was initiated on IV antibiotics and steroids. He had recently been evaluated by GI and underwent EGD on 08/10/2016 and was found to have moderate esophagitis, mild gastritis with pathology subsequently showing Ashley esophagitis as well as colonoscopy on 08/11/2016 with polypectomy and ablation of polyp in ascending colon with hot snare. Patient has been dealing with constipation since his admission. Today when he was trying to have a bowel movement he suddenly became less responsive and then had a large emesis which resulted in aspiration and hemodynamic collapse. Patient initially had large volume emesis with dark maroon blood. CODE BLUE cardiac arrest code was activated. On my arrival patient was in bed CPR had been initiated. Significant gastric contents was still being suctioned out of his oral cavity. ACLS protocol was continued. Patient was intubated following vigorous suctioning of gastric contents from oral cavity as well as with placement of NG tube which is hooked up to suction and about 1.5 L of gastric contents being suctioned out which appeared to be dark maroon in color. Patient initially had a pulse when CODE BLUE was called and subsequently went in PEA arrest followed by asystole during ACLS and then V. fib for which he was defibrillated with 200 J 1, CPR/ACLS protocol was continued and patient eventually had return of spontaneous circulation after about 15 minutes of CPR/ACLS. Patient was transferred to [facility] and placed on mechanical ventilation. I emergently placed left femoral central line for central vascular access and he was started on Levophed for pressor support. 2 units of O- 1 crossmatch blood were ordered and transfused stat. He also received 1 L of normal saline bolus following return of spontaneous circulation. Stat labs were ordered. His hemoglobin on ABG done post resuscitation was 5.6. I did order Protonix 80 mg IV stat followed by 8 mg per hour IV infusion. Patient remained encephalopathic though was minimally responsive following transfer to the ICU. GI consult was requested and I spoke with Dr. Zamarripa at bedside on his arrival. History was obtained by reviewing records, discussion with family/ GI as well as nursing staff. According to patient's daughter he has not been doing well for the last few months in terms of his breathing and has been using his home oxygen more often. He gets extremely short of breath even with the least exertion. 08/25: Remains encephalopathic/ sedated, [facility]. Transiently off levophed last night however back to 11 mcg/min currently. Hgb up to 9.4 following 4 units PRBCs transfused last night. 08/26: Tmax 99. Some unresponsive on the ventilator. CT abdomen/pelvis less than revealed small bowel obstruction at site of ventral hernia. No further bleeding noted. Gastric output approximately 700 cc. No bowel movement. 08/27: Tmax 99.7. Currently afebrile. Positive BM overnight approximately 1 L according to RN. No blood noted. 100 cc from gastric tube overnight. Hemoglobin corrected a properly. Likely dilutional. Noted fungemia currently issue. Opens eyes to voice. 08/28: Tmax 99.1. No BMs overnight. Minimal gastric tube output. Hemoglobin stable 9.5. Opens eyes to voice. Not following commands. Appears with singultus this morning. 08/29: 20 beat run of wide complex tachycardia overnight. Noted potassium 3.2. This is been replaced. We'll recheck this afternoon. Circuit exchange yesterday. Patient tolerating pressure control ventilation much better than PRVC/AC ventilation is low probably VQ scan. Less FiO2 requirements. No BM past 24 hour. 08/30: Unable to wean ventilator. 08/31: Patient was extubated on 08/30 however became tachypneic with use of accessory muscles of respiration and required reintubation around 6:30 PM last night and was placed back on mechanical ventilation. Currently sedated, orally intubated on mechanical ventilation. Post intubation chest x-ray suggested fluid overload for which she was given Lasix 40 mg IV with good response having made about 2.5 L urine the last 7 hours. 09/01: Remains sedated, orally intubated on mechanical ventilation. Diuresing well with Lasix. Awaiting EGD in a.m. 09/02: Little progress. CXR clearing nicely. Continue diuresis, tolerate hypernatremia. 09/03: Good diuretic response. CRISTHIAN today with no valvar pathology. 09/04: Too weak to tolerate extubation. Will require trach. 09/05: Sedated, arousable, following commands. Tolerated C Pap trial for 9 hours yesterday with pressure support +10. Tolerating tube feeds. Subjective 09/06: Extubated yesterday. Chest x-ray reveals likely mucous plugging in left lung garcia. Currently on nonrebreather mask. Planning of insomnia and thick secretions that he is unable to cough up. 09/07 Patient s/p reintubation and bronch 09/06 mucous plugs in left main stem bronchus sedated with Diprivan and Fentanyl. Afebrile. For possible trach tomorrow. 09/08 No acute events overnight. Sedated with Diprivan and Fentanyl. Afebrile. For trach today. 09/09 No acute events overnight. Sedated and intubated. s/p trach yesterday for PEG tube placement today. 09/10 Patient remains sedated and on ventilator via trach. s/p EGD yesterday PEG tube couldn't be placed endoscopically due to hernia. Surgery consulted for J-tube placement. Afebrile. 09/11 No acute events overnight. Sedated with Diprivan, Fentanyl and intubated. Afebrile. Tolerating tube feeds. 09/12 Patient is off Diprivan remains on Fentanyl infusion tolerated CPAP trials for several hrs and TP's x 2 hrs yesterday now on TP with 50% FIO2. Afebrile. 09/13 Patient tolerated TP's all day yesterday placed on PRVC/AC mode overnight. TF held for high residuals. Afebrile. On Fentanyl infusion however he is awake, restless. 09/14 No acute events overnight. Tolerated TP's all day yesterday placed back on ventilator overnight. On Fentanyl infusion. Afebrile. Repeat KUB this morning showed ileus. 09/15 Patient is off fentanyl infusion and is on Precedex drip pulled his NGT overnight. KUB this morning showed improvements in gaseous distention of bowel. Objective Vital Signs Date Time Temp Pulse Resp B/P Pulse Ox O2 Delivery O2 Flow Rate FiO2 09/15/16 10:00 89 09/15/16 08:02 96 Trach Collar 50 09/15/16 08:00 98.1 16 139/83 09/13/16 08:50 6.00 Intake and Output 09/14/16 09/14/16 09/15/16 08:00 16:00 00:00 Intake Total 653 ml 250 ml 65 ml Output Total 450 ml 400 ml 900 ml Balance 203 ml -150 ml -835 ml Result Diagram: 09/15/16 9036 09/15/16 0450 Other Results Laboratory Tests Test 09/15/16 04:50 White Blood Count 7.5 TH/MM3 Red Blood Count 2.69 MIL/MM3 Hemoglobin 8.4 GM/DL Hematocrit 24.5 % Mean Corpuscular Volume 91.0 FL Mean Corpuscular Hemoglobin 31.1 PG Mean Corpuscular Hemoglobin 34.2 % Concent Red Cell Distribution Width 18.7 % Platelet Count 114 TH/MM3 Mean Platelet Volume 9.0 FL Neutrophils (%) (Auto) 85.0 % Lymphocytes (%) (Auto) 5.5 % Monocytes (%) (Auto) 9.4 % Eosinophils (%) (Auto) 0.0 % Basophils (%) (Auto) 0.1 % Neutrophils # (Auto) 6.4 TH/MM3 Lymphocytes # (Auto) 0.4 TH/MM3 Monocytes # (Auto) 0.7 TH/MM3 Eosinophils # (Auto) 0.0 TH/MM3 Basophils # (Auto) 0.0 TH/MM3 CBC Comment DIFF FINAL Differential Comment Sodium Level 147 MEQ/L Potassium Level 3.4 MEQ/L Chloride Level 110 MEQ/L Carbon Dioxide Level 29.5 MEQ/L Anion Gap 8 MEQ/L Blood Urea Nitrogen 24 MG/DL Creatinine 0.74 MG/DL Estimat Glomerular Filtration 105 ML/MIN Rate Random Glucose 134 MG/DL Calcium Level 8.3 MG/DL Imaging Last Impressions Abdomen X-Ray 09/15/16 0600 Signed Impressions: Service Date/Time: Thursday, September 15, 2016 03:16 - CONCLUSION: 1. Improved gaseous distention of bowel since September 14. Mild distention persists. 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 There is concentric mural thrombus. This aneurysm is not amenable to thrombin injection. Polo Moore Jr., MD Lung Scan- Nuclear Medicine 08/29/16 0000 Signed Impressions: Service Date/Time: Monday, August 29, 2016 10:20 - CONCLUSION: Low probability for pulmonary embolus. Lex Lopez MD Brain MRI 08/27/16 Signed Impressions: Service Date/Time: August 15:13 - CONCLUSION: No evidence of acute infarct, hemorrhage, mass or edema. No findings to suggest significant anoxic injury. Kit Power MD Renal Ultrasound 08/25/16 Signed Impressions: Service Date/Time: Wednesday, August 24, 2016 21:53 - CONCLUSION: 1. There is no hydronephrosis. Both kidneys demonstrate mild increased echotexture of the parenchyma suggesting medical renal disease. 2. Trace perihepatic free fluid and bilateral pleural effusions. Lex Malik MD Chest CT 08/25/16 Signed Impressions: Service Date/Time: Thursday, August 25, 2016 21:20 - CONCLUSION: 1. Bilateral pneumonia and aspiration would be in the differential. There is dependent consolidation/atelectasis and small effusions of the bases as well. 2. Upper limits of normal to mildly enlarged mediastinal lymph nodes, most likely reactive. 3. Coronary artery calcification. 4. Right rib fractures, including acute fractures laterally of the third, fourth and fifth. There are old, healed fractures anteriorly of the right second and third ribs.. Lex Lopez MD Abdomen/Pelvis CT 08/25/16 Signed Impressions: Service Date/Time: Thursday, August 25, 2016 20:20 - CONCLUSION: 1. Ventral hernia containing small bowel and with associated small bowel obstruction. The defect is broad; I believe the obstruction is probably related to scarring and/or adhesions within the hernia sac. I don't see a mass. 2. Distended stomach despite NG tube present. 3. Severe aortoiliac atherosclerosis. No aneurysm. Lex Lopez MD Objective Remarks GENERAL: Patient is 71 yo lying in bed in NAD on ventilator SKIN: Warm and dry. HEAD: Normocephalic. EYES: No scleral icterus. No injection or drainage. NECK: Supple, trachea midline. No JVD or lymphadenopathy. Trach in place CARDIOVASCULAR: Regular rate and rhythm without murmurs, gallops, or rubs. RESPIRATORY: Breath sounds equal bilaterally. No accessory muscle use. GASTROINTESTINAL: Abdomen soft, non-tender, nondistended. MUSCULOSKELETAL: No cyanosis, +1 edema. Neuro: Awake. Date of Insertion: Aug 26, 2016 Line: Central Venous Catheter Side: Left Location: Internal, Jugular A/P Assessment and Plan Neuro/Psych: Status post CPR 15 minutes - possible anoxic encephalopathy Depression NOS Wean off Precedex drip and monitor neuro status. Ativan 1mg Q4 PRN agitation EEG 08/25 revealed mild to moderate encephalopathy. No epileptiform activity. MRI brain 08/27 revealed no acute findings. Cardiovascular: Cardiac arrest status post CPR Elevated troponin History dyslipidemia History of hypertension PVD Systemic shock likely secondary to sepsis/aspiration/small bowel obstruction Possible femoral pseudoaneurysm Monitor HR and BP keep MAP>65mmHg Cardizem 60mg QID, Hydralazine 50mg Q8 Cardiac arrest status post CPR. s/p aggressive fluid resuscitation. 5 units PRBCs transfused to date minimal troponin elevation following cardiac arrest noted. Echo 2D revealed EF 35-40%. Moderate LVH. Mitral valve calcified. Mild TR. Pulmonary: Acute respiratory failure secondary to aspiration pneumonia- Reintubated 09/06 s/p Trach on 09/08 End-stage COPD. Oxygen dependent FEV1 28%, FVC 1.6. s/p reintubation and bronch 09/06 mucous plugs in left main stem bronchus Continue with vent support keep sat >92% Bronchodilators, Pulmicort twice a day CPAP /TP trials as anneliese. Solu-Medrol 40 mEq IV Q12 VQ scan low probability 08/29 ICU vent bundle, pulm toilet, trach care GI. Small bowel obstruction - resolved Upper GI bleed plus esophageal rule out aorto esophageal fistula History of Ashley esophagitis History of colonic polyps History of ventral hernia status post repair last by Dr. Roberts Repeat KUB abdomen showed improvements in gaseous distention od bowel. on Reglan 5mg IV Q8, Senna, Lactulose, Colace. Patient pulled NGT overnight will reinsert NGT and start trickle feeds -Jevity 1.5. Discussed with GI. s/p EGD 09/09: Deformed pylorus/antrum, nodular mucosa-multiple biopsies taken esophagitis distal esophagus-biopsy unable to place peg endoscopically due to hiatal hernia. CT abdomen/pelvis revealed possible small bowel obstruction at level of ventral hernia. Severe aortoiliac disease. Dr. roberts/general surgery evaluated. Very poor surgical candidate this time. EGD 08/25 revealed esophageal nipple. Clots noted within the gastric contents without active bleeding. Protonix for GI prophylaxis Renal/: Acute kidney injury- resolved Hypernatremia History of bladder outlet obstruction Monitor renal function, I/O's, electrolytes replacement per protocol. Will need K replacement today On Free water 300ml Q6 monitor sodium level. No hydronephrosis on CT abdomen/pelvis ID: UTI Sepsis Fungemia Continue abx per ID ( Micafungin) till September 23.monitor for signs of infections ( Fever, WBC) On Levaquin x 7 days. Pertinent cultures 09/08 Bronch: S. Maltophilia, 09/06 Bronch- S. Maltophilia, 09/03 - blood culture - no growth 09/02 - blood culture - no growth 08/27 - blood from central line -Ashley Glabrata 08/27 -arterial line blood - pending 08/26 - sputum -Serratia 08/25 - blood cultures 2 -Ashley 08/25 - urine -no growth 08/22 - blood cultures 2 - no growth 08/21 - urine - no growth 08/20 - blood cultures 2 - 1 out of 4 staph epi Endocrine: Chronic prednisone use secondary to COPD SSI for glycemic control as needed. Heme: s/p Acute blood loss anemia History of prostate cancer Status post 4 units PRBCs ands 2 units FFP on 08/24. Given one unit PRBCs 08/26 Monitor CBC H/H stable. MSK: PT/OT evaluate and treat Access - peripheral IV's, PICC line placed 09/11 Prophylaxis - GI -Protonix - DVT - SCD/ resume heparin 5000 u Sq Q12- cleared by GI. H/H stable. schedule planning manager eval for placement. Level 3 Cal Arias MD Sep 15, 2016 10:48
[2016-09-15] MEDS: MICAFUNGIN INJ 100 MG in SODIUM CHLORIDE 0.9% INJ 100 ML IV SCH (12:12)
[2016-09-15] MEDS: LEVOFLOXACIN 750 MG PREMIX INJ 150 ML IV SCH (14:00)
--- NOTE | 2016-09-15 14:14 | RADRPT ---
EXAM DATE/TIME: 09/15/2016 13:39 [facility] COMPARISON: CHEST SINGLE AP, September 11, 2016, 13:43. INDICATIONS : VDRF; evaluate for aspiration. MEDICAL HISTORY : Chronic obstructive pulmonary disease. Emphysema SURGICAL HISTORY : None. ENCOUNTER: Subsequent ACUITY: 1 month PAIN SCORE: Non-responsive. LOCATION: Bilateral chest FINDINGS: Tracheostomy tube, right-sided PICC line remain in place. Nasogastric tube no longer seen. Persistent bilateral lower lung zone opacity right greater than left. There has been decrease in the left media l lung base atelectasis. No evidence of pneumothorax. CONCLUSION: Decrease in medial left lung base atelectasis. No change in hazy right lung base opacity. Donald Valerio MD on September 15, 2016 at 14:11 Board Certified Radiologist. This report was verified electronically.
[2016-09-15] MEDS: LORazepam 2 MG/ML VIAL IV PUSH PRN (17:46)
[2016-09-15] MEDS: HEPARIN SODIUM - SQ 10,000 UNITS/ML VIAL SQ SCH (20:04)
[2016-09-15] MEDS: hydrALAZINE HCL 20 MG/ML VIAL IV PUSH PRN (20:14)
[2016-09-15] MEDS: RESP: ALBUTEROL 2.5 MG/IPRATROPIUM 0.5 MG NEB (PRN) INH (20:35)
[2016-09-16] VITALS (17 sets, daily range): BP systolic 107–167; BP diastolic 69–90; PULSE 69–116; RESP 16–21; TEMP 98.1–99.4; O2SAT 92–100
[2016-09-16] MEDS: LORazepam 2 MG/ML VIAL IV PUSH PRN ×2 (00:06→23:54)
[2016-09-16] MEDS: DEXMEDETOMIDINE 200 MCG/50 ML NS IV SCH ×5 (01:50→23:54)
[2016-09-16] MEDS: INSULIN NovoLIN REGULAR SUPPLEMENTAL SCALE SQ SCH ×4 (04:10→23:57)
[2016-09-16] MEDS: methylPREDNISolone SOD SUCC 40 MG/1 ML VIAL IV PUSH SCH ×2 (04:10→15:15)
[2016-09-16] MEDS: FREE WATER G-TUBE SCH ×4 (04:11→23:54)
[2016-09-16] MEDS: hydrALAZINE HCL 50 MG TAB PO SCH ×3 (04:11→21:44)
[2016-09-16 05:53] LABS: AUTOMATED NEUTROPHIL # 6.4 TH/MM3 (1.8-7.7); BASOPHIL % 0.1 % (0.0-2.0); HEMATOCRIT 22.5 % (39.0-51.0); LYMPH % 4.2 % (9.0-44.0); LYMPHOCYTE # 0.3 TH/MM3 (1.0-4.8); MEAN CELL VOLUME 91.9 FL (80.0-100.0); MEAN CORPUSCULAR HEMOGLOBIN 31.6 PG (27.0-34.0); MEAN CORPUSCULAR HGB CONC 34.4 % (32.0-36.0); MONO % 6.9 % (0.0-8.0); NEUT % 88.8 % (16.0-70.0); PLATELET COUNT 100 TH/MM3 (150-450); RED BLOOD COUNT 2.45 MIL/MM3 (4.50-5.90); RED CELL DISTRIBUTION WIDTH 19.1 % (11.6-17.2); WHITE BLOOD COUNT 7.2 TH/MM3 (4.0-11.0)
[2016-09-16 05:55] LABS: BICARBONATE 27.5 MEQ/L (21.0-32.0); POTASSIUM 3.3 MEQ/L (3.5-5.1)
[2016-09-16 06:07] LABS: HEMO FLAGS AUTO DIFF
--- NOTE | 2016-09-16 06:35 | RADRPT ---
EXAM DATE/TIME: 09/16/2016 04:58 [facility] COMPARISON: CHEST SINGLE AP, September 15, 2016, 13:39. INDICATIONS : Shortness of breath. MEDICAL HISTORY : Chronic obstructive pulmonary disease. Emphysema SURGICAL HISTORY : None. ENCOUNTER: Subsequent ACUITY: 3 weeks PAIN SCORE: Non-responsive. LOCATION: Bilateral chest FINDINGS: A single view of the chest demonstrates tracheostomy tube in satisfactory position. Right PICC line i n superior vena cava. Bilateral airspace disease noted, right greater than left with small bilateral pleural effusions. CONCLUSION: 1. Tracheostomy and right PICC line present. Bilateral airspace disease, right greater than left brett lar to September 15. Eleazar Jimenez MD on September 16, 2016 at 6:32 Board Certified Radiologist. This report was verified electronically.
[2016-09-16 06:48] LABS: BANDS 8 % (0-6); NEUTROPHIL # MANUAL DIFF 6.9 TH/MM3 (1.8-7.7); POLYS (SEG NEUTROPHILS) 88 % (16-70); WBC DIFF SAMPLE 100
[2016-09-16 06:49] LABS: PLATELET ESTIMATE SMEAR LOW (NORMAL); PLATELET MORPHOLOGY NORMAL (NORMAL)
[2016-09-16 06:50] LABS: SCAN/DIFF FINAL DIFF MANUAL
[2016-09-16 06:51] LABS: STOMATOCYTES 1+ (NORMAL)
[2016-09-16] MEDS: CHLORHEXIDINE GLUCONATE 0.12% 30 ML CUP MT SCH ×2 (08:00→20:00)
[2016-09-16] MEDS: RESP: ALBUTEROL 2.5 MG/IPRATROPIUM 0.5 MG NEB (PRN) INH ×2 (08:01→20:04)
[2016-09-16] MEDS: RESP: BUDESONIDE 0.5 MG/2 ML NEB NEB SCH ×2 (08:01→20:04)
[2016-09-16] MEDS: COLLAGENASE OINT 30 GM TUBE TOP SCH (08:08)
[2016-09-16] MEDS: PANTOPRAZOLE SODIUM 40 MG VIAL IV PUSH SCH ×2 (08:10→21:43)
[2016-09-16] MEDS: METOCLOPRAMIDE HCL 10 MG/2 ML VIAL IV PUSH SCH ×3 (08:10→23:54)
[2016-09-16] MEDS: HEPARIN SODIUM - SQ 10,000 UNITS/ML VIAL SQ SCH ×2 (08:11→21:44)
[2016-09-16] MEDS: DOCUSATE SODIUM 100 MG/10 ML UDC PO SCH ×2 (09:00→21:00)
[2016-09-16] MEDS: SODIUM CHLORIDE 0.9% FLUSH 10 ML FLUSH IV FLUSH SCH (09:00)
[2016-09-16] MEDS: MULTIVITAMINS/MINERALS THERAPEUTIC TAB PO SCH (09:00)
[2016-09-16] MEDS: SODIUM CHLORIDE 0.9% FLUSH 5 ML FLUSH IVF SCH (09:00)
[2016-09-16] MEDS: SENNOSIDES SYRUP 8.8 MG/5 ML CUP PO SCH (09:00)
[2016-09-16] MEDS: DILTIAZEM HCL 60 MG TAB PO SCH ×4 (09:00→21:00)
[2016-09-16] MEDS: LACTULOSE SYRUP 20 GM/30 ML CUP PO SCH ×4 (09:00→21:44)
--- NOTE | 2016-09-16 11:19 | HHI.CCPN ---
Subjective Remarks/Hospital Course 08/24: 71 Year-old male with a medical history significant for COPD on home oxygen who was recently admitted with suspected sepsis/H And was initiated on IV antibiotics and steroids. He had recently been evaluated by GI and underwent EGD on 08/10/2016 and was found to have moderate esophagitis, mild gastritis with pathology subsequently showing Ashley esophagitis as well as colonoscopy on 08/11/2016 with polypectomy and ablation of polyp in ascending colon with hot snare. Patient has been dealing with constipation since his admission. Today when he was trying to have a bowel movement he suddenly became less responsive and then had a large emesis which resulted in aspiration and hemodynamic collapse. Patient initially had large volume emesis with dark maroon blood. CODE BLUE cardiac arrest code was activated. On my arrival patient was in bed CPR had been initiated. Significant gastric contents was still being suctioned out of his oral cavity. ACLS protocol was continued. Patient was intubated following vigorous suctioning of gastric contents from oral cavity as well as with placement of NG tube which is hooked up to suction and about 1.5 L of gastric contents being suctioned out which appeared to be dark maroon in color. Patient initially had a pulse when CODE BLUE was called and subsequently went in PEA arrest followed by asystole during ACLS and then V. fib for which he was defibrillated with 200 J 1, CPR/ACLS protocol was continued and patient eventually had return of spontaneous circulation after about 15 minutes of CPR/ACLS. Patient was transferred to [facility] and placed on mechanical ventilation. I emergently placed left femoral central line for central vascular access and he was started on Levophed for pressor support. 2 units of O- 1 crossmatch blood were ordered and transfused stat. He also received 1 L of normal saline bolus following return of spontaneous circulation. Stat labs were ordered. His hemoglobin on ABG done post resuscitation was 5.6. I did order Protonix 80 mg IV stat followed by 8 mg per hour IV infusion. Patient remained encephalopathic though was minimally responsive following transfer to the ICU. GI consult was requested and I spoke with Dr. Zamarripa at bedside on his arrival. History was obtained by reviewing records, discussion with family/ GI as well as nursing staff. According to patient's daughter he has not been doing well for the last few months in terms of his breathing and has been using his home oxygen more often. He gets extremely short of breath even with the least exertion. 08/25: Remains encephalopathic/ sedated, orally intubated on [facility] ventilation. Transiently off levophed last night however back to 11 mcg/min currently. Hgb up to 9.4 following 4 units PRBCs transfused last night. 08/26: Tmax 99. Some unresponsive on the ventilator. CT abdomen/pelvis less than revealed small bowel obstruction at site of ventral hernia. No further bleeding noted. Gastric output approximately 700 cc. No bowel movement. 08/27: Tmax 99.7. Currently afebrile. Positive BM overnight approximately 1 L according to RN. No blood noted. 100 cc from gastric tube overnight. Hemoglobin corrected a properly. Likely dilutional. Noted fungemia currently issue. Opens eyes to voice. 08/28: Tmax 99.1. No BMs overnight. Minimal gastric tube output. Hemoglobin stable 9.5. Opens eyes to voice. Not following commands. Appears with singultus this morning. 08/29: 20 beat run of wide complex tachycardia overnight. Noted potassium 3.2. This is been replaced. We'll recheck this afternoon. Circuit exchange yesterday. Patient tolerating pressure control ventilation much better than PRVC/AC ventilation is low probably VQ scan. Less FiO2 requirements. No BM past 24 hour. 08/30: Unable to wean ventilator. 08/31: Patient was extubated on 08/30 however became tachypneic with use of accessory muscles of respiration and required reintubation around 6:30 PM last night and was placed back on mechanical ventilation. Currently sedated, orally intubated on mechanical ventilation. Post intubation chest x-ray suggested fluid overload for which she was given Lasix 40 mg IV with good response having made about 2.5 L urine the last 7 hours. 09/01: Remains sedated, orally intubated on mechanical ventilation. Diuresing well with Lasix. Awaiting EGD in a.m. 09/02: Little progress. CXR clearing nicely. Continue diuresis, tolerate hypernatremia. 09/03: Good diuretic response. CRISTHIAN today with no valvar pathology. 09/04: Too weak to tolerate extubation. Will require trach. 09/05: Sedated, arousable, following commands. Tolerated C Pap trial for 9 hours yesterday with pressure support +10. Tolerating tube feeds. Subjective 09/06: Extubated yesterday. Chest x-ray reveals likely mucous plugging in left lung garcia. Currently on nonrebreather mask. Planning of insomnia and thick secretions that he is unable to cough up. 09/07 Patient s/p reintubation and bronch 09/06 mucous plugs in left main stem bronchus sedated with Diprivan and Fentanyl. Afebrile. For possible trach tomorrow. 09/08 No acute events overnight. Sedated with Diprivan and Fentanyl. Afebrile. For trach today. 09/09 No acute events overnight. Sedated and intubated. s/p trach yesterday for PEG tube placement today. 09/10 Patient remains sedated and on ventilator via trach. s/p EGD yesterday PEG tube couldn't be placed endoscopically due to hernia. Surgery consulted for J-tube placement. Afebrile. 09/11 No acute events overnight. Sedated with Diprivan, Fentanyl and intubated. Afebrile. Tolerating tube feeds. 09/12 Patient is off Diprivan remains on Fentanyl infusion tolerated CPAP trials for several hrs and TP's x 2 hrs yesterday now on TP with 50% FIO2. Afebrile. 09/13 Patient tolerated TP's all day yesterday placed on PRVC/AC mode overnight. TF held for high residuals. Afebrile. On Fentanyl infusion however he is awake, restless. 09/14 No acute events overnight. Tolerated TP's all day yesterday placed back on ventilator overnight. On Fentanyl infusion. Afebrile. Repeat KUB this morning showed ileus. 09/15 Patient is off fentanyl infusion and is on Precedex drip pulled his NGT overnight. KUB this morning showed improvements in gaseous distention of bowel. 09/16 Yesterday afternoon an NG tube was placed patient was noted to have tube feeds with possible aspiration.NGT placed this am, KUB pending. Objective Vital Signs Date Time Temp Pulse Resp B/P Pulse Ox O2 Delivery O2 Flow Rate FiO2 09/16/16 08:02 99 40 09/16/16 06:00 69 09/16/16 04:00 99.4 16 107/69 09/15/16 08:02 Trach Collar 09/13/16 08:50 6.00 Intake and Output 09/15/16 09/15/16 09/16/16 08:00 16:00 00:00 Intake Total 58 ml 250 ml 200 ml Output Total 500 ml 950 ml 600 ml Balance -442 ml -700 ml -400 ml Result Diagram: 09/16/1644209/16/16442 Imaging Last Impressions Abdomen X-Ray 09/15/16 0600 Signed Impressions: Service Date/Time: Thursday, September 15, 2016 03:16 - CONCLUSION: 1. Improved gaseous distention of bowel since September 14. Mild distention persists. 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 There is concentric mural thrombus. This aneurysm is not amenable to thrombin injection. Polo Moore Jr., MD Lung Scan- Nuclear Medicine 08/29/16 0000 Signed Impressions: Service Date/Time: Monday, August 29, 2016 10:20 - CONCLUSION: Low probability for pulmonary embolus. Lex Lopez MD Brain MRI 08/27/16 0000 Signed Impressions: Service Date/Time: August 15:13 - CONCLUSION: No evidence of acute infarct, hemorrhage, mass or edema. No findings to suggest significant anoxic injury. Kit Power MD Renal Ultrasound 08/25/16 0000 Signed Impressions: Service Date/Time: Wednesday, August 24, 2016 21:53 - CONCLUSION: 1. There is no hydronephrosis. Both kidneys demonstrate mild increased echotexture of the parenchyma suggesting medical renal disease. 2. Trace perihepatic free fluid and bilateral pleural effusions. Lex Malik MD Chest CT 08/25/16 0000 Signed Impressions: Service Date/Time: Thursday, August 25, 2016 21:20 - CONCLUSION: 1. Bilateral pneumonia and aspiration would be in the differential. There is dependent consolidation/atelectasis and small effusions of the bases as well. 2. Upper limits of normal to mildly enlarged mediastinal lymph nodes, most likely reactive. 3. Coronary artery calcification. 4. Right rib fractures, including acute fractures laterally of the third, fourth and fifth. There are old, healed fractures anteriorly of the right second and third ribs.. Lex Lopez MD Abdomen/Pelvis CT 08/25/16 0000 Signed Impressions: Service Date/Time: Thursday, August 25, 2016 20:20 - CONCLUSION: 1. Ventral hernia containing small bowel and with associated small bowel obstruction. The defect is broad; I believe the obstruction is probably related to scarring and/or adhesions within the hernia sac. I don't see a mass. 2. Distended stomach despite NG tube present. 3. Severe aortoiliac atherosclerosis. No aneurysm. Lex Lopez MD Objective Remarks GENERAL: Patient is 71 yo lying in bed in NAD on ventilator SKIN: Warm and dry. HEAD: Normocephalic. EYES: No scleral icterus. No injection or drainage. NECK: Supple, trachea midline. No JVD or lymphadenopathy. Trach in place CARDIOVASCULAR: Regular rate and rhythm without murmurs, gallops, or rubs. RESPIRATORY: Breath sounds equal bilaterally. No accessory muscle use. GASTROINTESTINAL: Abdomen soft, non-tender, nondistended. MUSCULOSKELETAL: No cyanosis, +1 edema. Neuro: Awake. Date of Insertion: Aug 26, 2016 Line: Central Venous Catheter Side: Left Location: Internal, Jugular A/P Assessment and Plan Neuro/Psych: Status post CPR 15 minutes - possible anoxic encephalopathy Depression NOS Neurochecks per ICU protocol Ativan 1mg Q4 PRN agitation EEG 08/25 revealed mild to moderate encephalopathy. No epileptiform activity. MRI brain 08/27 revealed no acute findings. Cardiovascular: Cardiac arrest status post CPR Elevated troponin History dyslipidemia History of hypertension PVD Systemic shock likely secondary to sepsis/aspiration/small bowel obstruction Possible femoral pseudoaneurysm Monitor HR and BP keep MAP>65mmHg Cardizem 60mg QID, Hydralazine 50mg Q8 Cardiac arrest status post CPR. s/p aggressive fluid resuscitation. 5 units PRBCs transfused to date minimal troponin elevation following cardiac arrest noted Echo 2D revealed EF 35-40%. Moderate LVH. Mitral valve calcified. Mild TR. Pulmonary: Acute respiratory failure secondary to aspiration pneumonia- Reintubated 09/06 s/p Trach on 09/08 End-stage COPD. Oxygen dependent FEV1 28%, FVC 1.6. S/P Aspiration 09/15 s/p reintubation and bronch 09/06 mucous plugs in left main stem bronchus Continue with vent support keep sat >92% Bronchodilators, Pulmicort twice a day CPAP /TP trials as anneliese. Solu-Medrol 40 mEq IV Q12 VQ scan low probability 08/29 ICU vent bundle, pulm toilet, trach care F/U CXR GI: Small bowel obstruction - resolved Upper GI bleed plus esophageal rule out aorto esophageal fistula History of Ashley esophagitis History of colonic polyps History of ventral hernia status post repair last by Dr. Roberts Repeat KUB abdomen showed improvements in gaseous distention od bowel. on Reglan 5mg IV Q8, Senna, Lactulose, Colace. Patient pulled NGT overnight will reinsert NGT and start trickle feeds -Jevity 1.5. Discussed with GI. s/p EGD 09/09: Deformed pylorus/antrum, nodular mucosa-multiple biopsies taken esophagitis distal esophagus-biopsy unable to place peg endoscopically due to hiatal hernia. CT abdomen/pelvis revealed possible small bowel obstruction at level of ventral hernia. Severe aortoiliac disease. Dr. Roberts/general surgery evaluated. Very poor surgical candidate this time. EGD 08/25 revealed esophageal nipple. Clots noted within the gastric contents without active bleeding. Protonix for GI prophylaxis Renal/: Acute kidney injury- resolved Hypernatremia History of bladder outlet obstruction Monitor renal function, I/O's, electrolytes replacement per protocol. Replete K , Potassium 3.3 Continue Free water flushes 300ml Q6 monitor sodium level. No hydronephrosis on CT abdomen/pelvis ID: UTI Sepsis Fungemia Continue abx per ID ( Micafungin) till September 23.monitor for signs of infections ( Fever, WBC) On Levaquin x 7 days. Pertinent cultures 09/08 Bronch: S. Maltophilia, 09/06 Bronch- S. Maltophilia, 09/03 - blood culture - no growth 09/02 - blood culture - no growth 08/27 - blood from central line -Ashley Glabrata 08/27 -arterial line blood - pending 08/26 - sputum -Serratia 08/25 - blood cultures 2 -Ashley 08/25 - urine -no growth 08/22 - blood cultures 2 - no growth 08/21 - urine - no growth 3/2 - blood cultures 2 - 1 out of 4 staph epi Endocrine: Chronic prednisone use secondary to COPD SSI for glycemic control as needed. Heme: s/p Acute blood loss anemia History of prostate cancer Status post 4 units PRBCs ands 2 units FFP on 08/24. Given one unit PRBCs 08/26 Monitor CBC H/H stable. MSK: PT/OT evaluate and treat Access - peripheral IV's, PICC line placed 09/11 Prophylaxis - GI -Protonix - DVT - SCD/ resume heparin 5000 u Sq Q12- cleared by GI. H/H stable. adult basic education manager bridgette for placement. Level 3 Physician Marcelina Correia MD Sep 16, 2016 11:19
[2016-09-16] MEDS: MICAFUNGIN INJ 100 MG in SODIUM CHLORIDE 0.9% INJ 100 ML IV SCH (12:28)
[2016-09-16] MEDS: LEVOFLOXACIN 750 MG PREMIX INJ 150 ML IV SCH (12:28)
--- NOTE | 2016-09-16 12:50 | RADRPT ---
EXAM DATE/TIME: 09/16/2016 10:54 [place] COMPARISON: ABDOMEN KUB ONLY, September 15, 2016, 3:16. INDICATIONS : NG placement. MEDICAL HISTORY : Carcinoma, prostatic. Cardiovascular disease. Hypertension. Chronic obstructive pulmonary disea se.Ulcers;GERD; Prostate cancer SURGICAL HISTORY : Appendectomy. Umbilical hernia repair.Perforated gastric ulcer ENCOUNTER: Subsequent ACUITY: 3 weeks PAIN SCORE: Non-responsive. LOCATION: Bilateral Abdomen. FINDINGS: Examination of the abdomen demonstrates gaseous distention of the small bowel with air fluid levels m ost consistent with ileus .There are no findings of small bowel obstruction. No free air is identifie d. No organomegaly is evident. The nasogastric tube is looped at the gastroesophageal junction but th e tip directed superiorly. This should be advancedThere is multilevel degenerative change throughout the spine. CONCLUSION: 1. Nasogastric tube looped in the distal esophagus. Gareth Escalante MD on September 16, 2016 at 12:28 Board Certified Radiologist. This report was verified electronically.
[2016-09-16] MEDS: NYSTATIN 100,000 U/GM PWD 15 GM BTL TOPICAL SCH ×2 (15:16→21:44)
--- NOTE | 2016-09-16 17:10 | HHI.IDPN ---
Subjective Subjective Remarks is a 71 y/o CM with COPD and oxygen dependent, Ashley esophagitis, prior h/o pneumonia. According to the since the patient was discharged he continued to have nausea and vomiting. He has not had any bowel movement, and she thinks in the last 3 weeks. Patient started having more weakness, and was getting more short of breath, so the patient presented back to the hospital and was admitted August 20. He was admitted as a COPD exacerbation and pneumonia. He was put on empiric antibiotics. Patient had in hospital cardiorespiratory arrest. He was successfully resuscitated, and intubated. Patient had an A- line in arm, CL in groin which was changed on 08/27/16. 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 Patient continues to have elevated WBC, and is being treated for sepsis secondary to aspiration PNA, Fungemia likely line related (groin line likely now DCed). Notes reviewed D/W RN Suctioning TF from trach New NGT placed Temps occ 99+ On T-piece, sats good S/P trach 09/08 BP ok, not on pressors Last Sputum with Sten mal CRISTHIAN negative Last (+) BC 08/27 with C glabrata First (+) BC with C albicans and C glabrata Follow up BC negative Has pseudoaneurysm R femoral artery Antibiotics Levaquin IV Micafungin (for fungal line infection) Lines PICC - 09/11 Past Medical History Hypertension COPD O2 dependent prostate cancer Bladder outlet obstruction Hyperlipidemia Past Surgical History Ventral hernia Appendectomy Perforated gastric ulcer surgery Cataract Upper and lower endoscopy Allergies: Coded Allergies: *MDRO Multi-Drug Resistant Organism (Verified Adverse Reaction, Unknown, ) MRSA (abdominal wound) 2015 per 04/10/2015 H&P MRSA PCR Screen #1 NEGATIVE - 08/21/16 Objective . Vital Signs Date Time Temp Pulse Resp B/P Pulse Ox O2 Delivery O2 Flow Rate FiO2 09/16/16 08:02 99 40 09/16/16 08:00 40 09/16/16 08:00 99.1 77 16 143/89 99 09/16/16 08:00 104 09/16/16 06:00 69 09/16/16 04:02 96 40 09/16/16 04:00 40 09/16/16 04:00 99.4 83 16 107/69 98 09/16/16 04:00 83 09/16/16 02:00 87 09/16/16 01:55 99 40 09/16/16 00:00 40 09/16/16 00:00 98.1 100 21 141/71 97 09/16/16 00:00 100 09/15/16 22:15 97 40 09/15/16 22:00 72 09/15/16 20:35 97 40 09/15/16 20:00 40 09/15/16 20:00 97.9 64 16 180/91 99 09/15/16 20:00 64 09/15/16 18:00 89 09/15/16 09/15/16 09/16/16 15:00 23:00 07:00 Intake Total 250 ml 200 ml 81 ml Output Total 950 ml 600 ml 350 ml Balance -700 ml -400 ml -269 ml IV Total 250 ml 200 ml 81 ml Output Urine Total 650 ml 500 ml 350 ml Stool Total 300 ml 100 ml Bladder Scan Volume Amount 712 ml . Laboratory Tests Test 09/15/16 09/16/16 04:50 04:43 White Blood Count 7.5 TH/MM3 7.2 TH/MM3 Red Blood Count 2.69 MIL/MM3 2.45 MIL/MM3 Hemoglobin 8.4 GM/DL 7.7 GM/DL Hematocrit 24.5 % 22.5 % Mean Corpuscular Volume 91.0 FL 91.9 FL Mean Corpuscular Hemoglobin 31.1 PG 31.6 PG Mean Corpuscular Hemoglobin 34.2 % 34.4 % Concent Red Cell Distribution Width 18.7 % 19.1 % Platelet Count 114 TH/MM3 100 TH/MM3 Mean Platelet Volume 9.0 FL 9.2 FL Neutrophils (%) (Auto) 85.0 % 88.8 % Lymphocytes (%) (Auto) 5.5 % 4.2 % Monocytes (%) (Auto) 9.4 % 6.9 % Eosinophils (%) (Auto) 0.0 % 0.0 % Basophils (%) (Auto) 0.1 % 0.1 % Neutrophils # (Auto) 6.4 TH/MM3 6.4 TH/MM3 Lymphocytes # (Auto) 0.4 TH/MM3 0.3 TH/MM3 Monocytes # (Auto) 0.7 TH/MM3 0.5 TH/MM3 Eosinophils # (Auto) 0.0 TH/MM3 0.0 TH/MM3 Basophils # (Auto) 0.0 TH/MM3 0.0 TH/MM3 CBC Comment DIFF FINAL AUTO DIFF Differential Comment FINAL DIFF MANUAL Differential Total Cells 100 Counted Neutrophils % (Manual) 88 % Band Neutrophils % 8 % Lymphocytes % 3 % Monocytes % 1 % Neutrophils # (Manual) 6.9 TH/MM3 Platelet Estimate LOW Platelet Morphology Comment NORMAL Stomatocytes 1+ Laboratory Tests Test 09/15/16 09/16/16 04:50 04:43 Sodium Level 147 MEQ/L 148 MEQ/L Potassium Level 3.4 MEQ/L 3.3 MEQ/L Chloride Level 110 MEQ/L 112 MEQ/L Carbon Dioxide Level 29.5 MEQ/L 27.5 MEQ/L Anion Gap 8 MEQ/L 9 MEQ/L Blood Urea Nitrogen 24 MG/DL 24 MG/DL Creatinine 0.74 MG/DL 0.67 MG/DL Estimat Glomerular Filtration 105 ML/MIN 117 ML/MIN Rate Random Glucose 134 MG/DL 93 MG/DL Calcium Level 8.3 MG/DL 7.9 MG/DL Imaging Chest X-Ray 09/16/16 0000 Signed Impressions: Service Date/Time: Friday, September 16, 2016 04:58 - CONCLUSION: 1. Tracheostomy and right PICC line present. Bilateral airspace disease, right greater than left similar to September 15. Eleazar Jimenez MD Abdomen X-Ray 09/16/16 0000 Signed Impressions: Service Date/Time: Friday, September 16, 2016 10:54 - CONCLUSION: 1. Nasogastric tube looped in the distal esophagus. Gareth Escalante MD Abdomen X-Ray 09/15/16 0600 Signed Impressions: Service Date/Time: Thursday, September 15, 2016 03:16 - CONCLUSION: 1. Improved gaseous distention of bowel since September 14. Mild distention persists. Eleazar Jimenez MD Chest X-Ray 09/15/16 0000 Signed Impressions: Service Date/Time: Thursday, September 15, 2016 13:39 - CONCLUSION: Decrease in medial left lung base atelectasis. No change in hazy right lung base opacity. Donald Valerio MD Abdomen X-Ray 09/14/16 0600 Signed Impressions: Service Date/Time: Wednesday, September 14, 2016 03:56 - CONCLUSION: Gaseous distention of multiple bowel loops, likely ileus. Eduardo Mcconnell MD Chest X-Ray 09/08/16 1325 Signed Impressions: Service Date/Time: Thursday, September 08, 2016 13:37 - CONCLUSION: 1. Interval improvement of the interstitial infiltrates with minimal residual right basilar infiltrate noted. 2. Tracheostomy tube in good position approximately 5 cm above the michele. Lui Kim MD Chest X-Ray 09/06/16 0000 Signed Impressions: Service Date/Time: Tuesday, September 06, 2016 13:49 - CONCLUSION: 1. Interval intubation and placement of nasogastric tube. 2. Volume loss again noted left hemithorax with mediastinal shift. There is coarse infiltrate remaining in the left lung. Ian Horton MD Chest X-Ray 09/06/16 0000 Signed Impressions: Service Date/Time: Tuesday, September 06, 2016 08:50 - CONCLUSION: 1. Increasing density throughout the left hemithorax with volume loss suggesting mucus plugging. Eduardo Mcconnell MD Chest X-Ray 09/05/16 0500 Signed Impressions: Service Date/Time: Monday, September 05, 2016 03:49 - CONCLUSION: 1. Basilar airspace disease similar to prior exam. Support apparatus unchanged. Eleazar Jimenez MD Chest X-Ray 09/05/16 0500 Signed Impressions: Service Date/Time: Monday, September 05, 2016 03:49 - CONCLUSION: 1. Basilar airspace disease similar to prior exam. Support apparatus unchanged. Eleazar Jimenez MD Chest X-Ray 09/01/16 0600 Signed Impressions: Service Date/Time: Thursday, September 01, 2016 03:19 - CONCLUSION: No significant interval change in bilateral pulmonary parenchymal opacity and small bilateral pleural effusions. 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 There is concentric mural thrombus. This aneurysm is not amenable to thrombin injection. Polo Moore Jr., MD Chest X-Ray 08/27/16 0600 Signed Impressions: Service Date/Time: August 02:27 - CONCLUSION: 1. Patchy bilateral airspace disease with improving aeration/decreasing effusions in the bases bilaterally. 2. Stable position of life support tubes. Con Valdes MD Chest X-Ray 08/26/16 0754 Signed Impressions: Service Date/Time: Friday, August 26, 2016 08:14 - CONCLUSION: Left IJ central line distal tip in the SVC. No pneumothorax is visualized. There is a stable appearance the lungs with bilateral airspace consolidation. Lex Malik MD Chest X-Ray 08/26/16 0600 Signed Impressions: Service Date/Time: Friday, August 26, 2016 04:01 - CONCLUSION: 1. Worsening bibasilar effusions/atelectasis with diffuse interstitial edema, all characteristic of CHF. 2. Endotracheal tube remains appropriately positioned above the michele Con Valdes MD Chest X-Ray 08/26/16 0754 Signed Impressions: Service Date/Time: Friday, August 26, 2016 08:14 - CONCLUSION: Left IJ central line distal tip in the SVC. No pneumothorax is visualized. There is a stable appearance the lungs with bilateral airspace consolidation. Lex Malik MD Renal Ultrasound 08/25/16 0000 Signed Impressions: Service Date/Time: Wednesday, August 24, 2016 21:53 - CONCLUSION: 1. There is no hydronephrosis. Both kidneys demonstrate mild increased echotexture of the parenchyma suggesting medical renal disease. 2. Trace perihepatic free fluid and bilateral pleural effusions. Lex Malik MD Chest CT 08/25/16 0000 Signed Impressions: Service Date/Time: Thursday, August 25, 2016 21:20 - CONCLUSION: 1. Bilateral pneumonia and aspiration would be in the differential. There is dependent consolidation/atelectasis and small effusions of the bases as well. 2. Upper limits of normal to mildly enlarged mediastinal lymph nodes, most likely reactive. 3. Coronary artery calcification. 4. Right rib fractures, including acute fractures laterally of the third, fourth and fifth. There are old, healed fractures anteriorly of the right second and third ribs.. Lex Lopez MD Abdomen/Pelvis CT 08/25/16 0000 Signed Impressions: Service Date/Time: Thursday, August 25, 2016 20:20 - CONCLUSION: 1. Ventral hernia containing small bowel and with associated small bowel obstruction. The defect is broad; I believe the obstruction is probably related to scarring and/or adhesions within the hernia sac. I don't see a mass. 2. Distended stomach despite NG tube present. 3. Severe aortoiliac atherosclerosis. No aneurysm. Lex Lopez MD Abdomen X-Ray 08/24/16 0000 Signed Impressions: Service Date/Time: Wednesday, August 24, 2016 17:19 - CONCLUSION: 1. Small bowel dilatation which reflect ileus or obstruction. Followup examination is recommended if clinically indicated. Gareth Escalante MD Physical Exam GENERAL: Resting, on T-piece SKIN: Warm and dry. No generalized rash HEENT: No scleral icterus. Dry oral mucosa NECK: Trach site ok. Supple. CARDIOVASCULAR: Regular rate and rhythm without murmurs, gallops, or rubs. RESPIRATORY: Decreased breath sounds throughout both lung garcia. GASTROINTESTINAL: Abdomen soft, not tender, less distended. Has a large midline hernia reducible. Has midline scar. No redness or tenderness noted in R groin MUSCULOSKELETAL: Extremities without clubbing, cyanosis. Edema better LINE: PICC no evidence of infection. Assessment & Plan Remarks IMPRESSION Sepsis present on admission and then sepsis again. Better Central line associated blood stream infection (CLABSI) related fungemia ( likely groin line) now discontinued. Arterial line discontinued as well. 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 - S/P Rx Now with Sten mal in sputum Recurrent respiratory failure, due to mucus plugging - S/P bronch Diarrhea ? Cdiff vs antibiotic associated. Status post cardiorespiratory arrest, likely aspirated Findings SBO within the hernia on CT A/P, clinically better Acute respiratory failure, extubated 09/05 - reintubated 09/06 GI bleed, stable Leukocytosis, up again, reactive due to resp decompensation COPD, oxygen dependent Previous GI bleed with workup showing gastritis, Ashley esophagitis, and polyps Large incisional ventral hernia Bladder outlet obstruction, currently has a Hammond Renal insufficiency RECOMMENDATION Continue Micafungin IV (C.glabrata fungemia) - plan at least 4 weeks from date of last (+) BC which is 08/27 - anticipated end date is September 23 Levaquin x 7 days - to finish today Monitor progress Has possible pseudoaneurysm at site of femoral line, and will likely treat for 4 weeks with antifungal. D/W Nuha Nguyen MD Sep 16, 2016 17:10
[2016-09-17] VITALS (18 sets, daily range): BP systolic 101–154; BP diastolic 58–91; PULSE 51–113; RESP 16–24; TEMP 96.7–98.3; O2SAT 91–100
[2016-09-17] MEDS: methylPREDNISolone SOD SUCC 40 MG/1 ML VIAL IV PUSH SCH (03:11)
[2016-09-17] MEDS: DEXMEDETOMIDINE 200 MCG/50 ML NS IV SCH (03:11)
[2016-09-17] MEDS: hydrALAZINE HCL 20 MG/ML VIAL IV PUSH PRN (03:11)
[2016-09-17] MEDS: FREE WATER G-TUBE SCH ×4 (06:00→20:00)
[2016-09-17] MEDS: hydrALAZINE HCL 50 MG TAB PO SCH ×3 (06:14→22:15)
[2016-09-17] MEDS: INSULIN NovoLIN REGULAR SUPPLEMENTAL SCALE SQ SCH ×3 (06:14→18:00)
[2016-09-17] MEDS: NYSTATIN 100,000 U/GM PWD 15 GM BTL TOPICAL SCH ×3 (06:14→22:15)
[2016-09-17 08:09] LABS: HEMATOCRIT 26.3 % (39.0-51.0); MEAN CORPUSCULAR HGB CONC 33.7 % (32.0-36.0); PLATELET COUNT 115 TH/MM3 (150-450); RED BLOOD COUNT 2.86 MIL/MM3 (4.50-5.90); REVIEW FLAG FINAL; WHITE BLOOD COUNT 6.8 TH/MM3 (4.0-11.0)
[2016-09-17 08:10] LABS: BICARBONATE 25.2 MEQ/L (21.0-32.0); MAGNESIUM 1.5 MG/DL (1.5-2.5); POTASSIUM 3.2 MEQ/L (3.5-5.1)
[2016-09-17] MEDS: RESP: BUDESONIDE 0.5 MG/2 ML NEB NEB SCH ×2 (08:39→20:04)
[2016-09-17] MEDS: SODIUM CHLORIDE 0.9% FLUSH 5 ML FLUSH IVF SCH (09:00)
[2016-09-17] MEDS: COLLAGENASE OINT 30 GM TUBE TOP SCH (09:00)
--- NOTE | 2016-09-17 09:40 | HHI.CCPN ---
Subjective Remarks/Hospital Course 08/24: 71 Year-old male with a medical history significant for COPD on home oxygen who was recently admitted with suspected sepsis/H And was initiated on IV antibiotics and steroids. He had recently been evaluated by GI and underwent EGD on 08/10/2016 and was found to have moderate esophagitis, mild gastritis with pathology subsequently showing Ashley esophagitis as well as colonoscopy on 08/11/2016 with polypectomy and ablation of polyp in ascending colon with hot snare. Patient has been dealing with constipation since his admission. Today when he was trying to have a bowel movement he suddenly became less responsive and then had a large emesis which resulted in aspiration and hemodynamic collapse. Patient initially had large volume emesis with dark maroon blood. CODE BLUE cardiac arrest code was activated. On my arrival patient was in bed CPR had been initiated. Significant gastric contents was still being suctioned out of his oral cavity. ACLS protocol was continued. Patient was intubated following vigorous suctioning of gastric contents from oral cavity as well as with placement of NG tube which is hooked up to suction and about 1.5 L of gastric contents being suctioned out which appeared to be dark maroon in color. Patient initially had a pulse when CODE BLUE was called and subsequently went in PEA arrest followed by asystole during ACLS and then V. fib for which he was defibrillated with 200 J 1, CPR/ACLS protocol was continued and patient eventually had return of spontaneous circulation after about 15 minutes of CPR/ACLS. Patient was transferred to [facility] and placed on mechanical ventilation. I emergently placed left femoral central line for central vascular access and he was started on Levophed for pressor support. 2 units of O- 1 crossmatch blood were ordered and transfused stat. He also received 1 L of normal saline bolus following return of spontaneous circulation. Stat labs were ordered. His hemoglobin on ABG done post resuscitation was 5.6. I did order Protonix 80 mg IV stat followed by 8 mg per hour IV infusion. Patient remained encephalopathic though was minimally responsive following transfer to the ICU. GI consult was requested and I spoke with Dr. Zamarripa at bedside on his arrival. History was obtained by reviewing records, discussion with family/ GI as well as nursing staff. According to patient's daughter he has not been doing well for the last few months in terms of his breathing and has been using his home oxygen more often. He gets extremely short of breath even with the least exertion. 08/25: Remains encephalopathic/ sedated, [facility]. Transiently off levophed last night however back to 11 mcg/min currently. Hgb up to 9.4 following 4 units PRBCs transfused last night. 08/26: Tmax 99. Some unresponsive on the ventilator. CT abdomen/pelvis less than revealed small bowel obstruction at site of ventral hernia. No further bleeding noted. Gastric output approximately 700 cc. No bowel movement. 08/27: Tmax 99.7. Currently afebrile. Positive BM overnight approximately 1 L according to RN. No blood noted. 100 cc from gastric tube overnight. Hemoglobin corrected a properly. Likely dilutional. Noted fungemia currently issue. Opens eyes to voice. 08/28: Tmax 99.1. No BMs overnight. Minimal gastric tube output. Hemoglobin stable 9.5. Opens eyes to voice. Not following commands. Appears with singultus this morning. 08/29: 20 beat run of wide complex tachycardia overnight. Noted potassium 3.2. This is been replaced. We'll recheck this afternoon. Circuit exchange yesterday. Patient tolerating pressure control ventilation much better than PRVC/AC ventilation is low probably VQ scan. Less FiO2 requirements. No BM past 24 hour. 08/30: Unable to wean ventilator. 08/31: Patient was extubated on 08/30 however became tachypneic with use of accessory muscles of respiration and required reintubation around 6:30 PM last night and was placed back on mechanical ventilation. Currently sedated, orally intubated on mechanical ventilation. Post intubation chest x-ray suggested fluid overload for which she was given Lasix 40 mg IV with good response having made about 2.5 L urine the last 7 hours. 09/01: Remains sedated, orally intubated on mechanical ventilation. Diuresing well with Lasix. Awaiting EGD in a.m. 09/02: Little progress. CXR clearing nicely. Continue diuresis, tolerate hypernatremia. 09/03: Good diuretic response. CRISTHIAN today with no valvar pathology. 09/04: Too weak to tolerate extubation. Will require trach. 09/05: Sedated, arousable, following commands. Tolerated C Pap trial for 9 hours yesterday with pressure support +10. Tolerating tube feeds. 09/06: Extubated yesterday. Chest x-ray reveals likely mucous plugging in left lung garcia. Currently on nonrebreather mask. Planning of insomnia and thick secretions that he is unable to cough up. 09/07 Patient s/p reintubation and bronch 09/06 mucous plugs in left main stem bronchus sedated with Diprivan and Fentanyl. Afebrile. For possible trach tomorrow. 09/08 No acute events overnight. Sedated with Diprivan and Fentanyl. Afebrile. For trach today. 09/09 No acute events overnight. Sedated and intubated. s/p trach yesterday for PEG tube placement today. 09/10 Patient remains sedated and on ventilator via trach. s/p EGD yesterday PEG tube couldn't be placed endoscopically due to hernia. Surgery consulted for J-tube placement. Afebrile. 09/11 No acute events overnight. Sedated with Diprivan, Fentanyl and intubated. Afebrile. Tolerating tube feeds. 09/12 Patient is off Diprivan remains on Fentanyl infusion tolerated CPAP trials for several hrs and TP's x 2 hrs yesterday now on TP with 50% FIO2. Afebrile. 09/13 Patient tolerated TP's all day yesterday placed on PRVC/AC mode overnight. TF held for high residuals. Afebrile. On Fentanyl infusion however he is awake, restless. 09/14 No acute events overnight. Tolerated TP's all day yesterday placed back on ventilator overnight. On Fentanyl infusion. Afebrile. Repeat KUB this morning showed ileus. 09/15 Patient is off fentanyl infusion and is on Precedex drip pulled his NGT overnight. KUB this morning showed improvements in gaseous distention of bowel. 09/16 Yesterday afternoon an NG tube was placed patient was noted to have tube feeds with possible aspiration.NGT placed this am, KUB pending. Subjective 09/17: no acute events overnight. tolerated cpap. back on rate overnight. this morning on trach collar. Objective Vital Signs Date Time Temp Pulse Resp B/P Pulse Ox O2 Delivery O2 Flow Rate FiO2 09/17/16 08:39 99 40 09/17/16 08:00 71 09/17/16 04:00 97.9 16 101/58 09/15/16 08:02 Trach Collar 09/13/16 08:50 6.00 Intake and Output 09/16/16 09/16/16 09/17/16 08:00 16:00 00:00 Intake Total 81 ml 535 ml 150 ml Output Total 350 ml 1050 ml 300 ml Balance -269 ml -515 ml -150 ml Result Diagram: 09/17/16 0610 09/17/16 0610 Imaging Last Impressions Abdomen X-Ray 09/15/16 0600 Signed Impressions: Service Date/Time: Thursday, September 15, 2016 03:16 - CONCLUSION: 1. Improved gaseous distention of bowel since September 14. Mild distention persists. 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 There is concentric mural thrombus. This aneurysm is not amenable to thrombin injection. Polo Moore Jr., MD Lung Scan- Nuclear Medicine 08/29/16 0000 Signed Impressions: Service Date/Time: Monday, August 29, 2016 10:20 - CONCLUSION: Low probability for pulmonary embolus. Lex Lopez MD Brain MRI 08/27/16 0000 Signed Impressions: Service Date/Time: August 15:13 - CONCLUSION: No evidence of acute infarct, hemorrhage, mass or edema. No findings to suggest significant anoxic injury. Kit Power MD Renal Ultrasound 08/25/16 0000 Signed Impressions: Service Date/Time: Wednesday, August 24, 2016 21:53 - CONCLUSION: 1. There is no hydronephrosis. Both kidneys demonstrate mild increased echotexture of the parenchyma suggesting medical renal disease. 2. Trace perihepatic free fluid and bilateral pleural effusions. Lex Malik MD Chest CT 08/25/16 0000 Signed Impressions: Service Date/Time: Thursday, August 25, 2016 21:20 - CONCLUSION: 1. Bilateral pneumonia and aspiration would be in the differential. There is dependent consolidation/atelectasis and small effusions of the bases as well. 2. Upper limits of normal to mildly enlarged mediastinal lymph nodes, most likely reactive. 3. Coronary artery calcification. 4. Right rib fractures, including acute fractures laterally of the third, fourth and fifth. There are old, healed fractures anteriorly of the right second and third ribs.. Lex Lopez MD Abdomen/Pelvis CT 08/25/16 0000 Signed Impressions: Service Date/Time: Thursday, August 25, 2016 20:20 - CONCLUSION: 1. Ventral hernia containing small bowel and with associated small bowel obstruction. The defect is broad; I believe the obstruction is probably related to scarring and/or adhesions within the hernia sac. I don't see a mass. 2. Distended stomach despite NG tube present. 3. Severe aortoiliac atherosclerosis. No aneurysm. Lex Lopez MD Objective Remarks GENERAL: Patient is 71 yo lying in bed in NAD on trach collar SKIN: Warm and dry. HEAD: Normocephalic. EYES: No scleral icterus. No injection or drainage. NECK: trachea midline. No JVD. Trach in place CARDIOVASCULAR: Regular rate and rhythm without murmurs, gallops, or rubs. RESPIRATORY: Breath sounds equal bilaterally. No accessory muscle use. GASTROINTESTINAL: Abdomen soft, non-tender, nondistended. MUSCULOSKELETAL: No cyanosis, +1 edema. Neuro: Awake. Date of Insertion: Aug 26, 2016 Line: Central Venous Catheter Side: Left Location: Internal, Jugular A/P Assessment and Plan Neuro/Psych: Status post CPR 15 minutes - possible anoxic encephalopathy Depression NOS Neurochecks per ICU protocol Ativan 1mg Q4 PRN agitation- will hopefully wean off of this zyprexa 5mg po q8hr for agitation. EEG 08/25 revealed mild to moderate encephalopathy. No epileptiform activity. MRI brain 08/27 revealed no acute findings. Cardiovascular: Cardiac arrest status post CPR Elevated troponin History dyslipidemia History of hypertension PVD Systemic shock likely secondary to sepsis/aspiration/small bowel obstruction Possible femoral pseudoaneurysm Monitor HR and BP keep MAP>65mmHg Cardizem 60mg QID, Hydralazine 50mg Q8 Cardiac arrest status post CPR. s/p aggressive fluid resuscitation. 5 units PRBCs transfused to date minimal troponin elevation following cardiac arrest noted Echo 2D revealed EF 35-40%. Moderate LVH. Mitral valve calcified. Mild TR. Pulmonary: Acute respiratory failure secondary to aspiration pneumonia- Reintubated 09/06 s/p Trach on 09/08 End-stage COPD. Oxygen dependent FEV1 28%, FVC 1.6. S/P Aspiration 09/15 s/p reintubation and bronch 09/06 mucous plugs in left main stem bronchus Continue with vent support keep sat >92% Bronchodilators, Pulmicort twice a day CPAP /TP trials as anneliese. Solu-Medrol 40 mEq IV Q12-- start prednisone taper. VQ scan low probability 08/29 ICU vent bundle, pulm toilet, trach care F/U CXR GI: Small bowel obstruction - resolved Upper GI bleed plus esophageal rule out aorto esophageal fistula History of Ashley esophagitis History of colonic polyps History of ventral hernia status post repair last by Dr. Roberts Repeat KUB abdomen showed improvements in gaseous distention od bowel. on Reglan 5mg IV Q8, Senna, Lactulose, Colace. increase tube feeds to goal. I think from a GI standpoint, the plan should remain to use nasogastric access at this time. continue frequent speech eval for swallowing. If he fails once off the vent with better nutrition, will need permanent feeding tube by IR or surgery. I do not think this is a barrier to placement. s/p EGD 09/09: Deformed pylorus/antrum, nodular mucosa-multiple biopsies taken esophagitis distal esophagus-biopsy unable to place peg endoscopically due to hiatal hernia. CT abdomen/pelvis revealed possible small bowel obstruction at level of ventral hernia. Severe aortoiliac disease. Dr. Roberts/general surgery evaluated. Very poor surgical candidate this time. EGD 08/25 revealed esophageal nipple. Clots noted within the gastric contents without active bleeding. Protonix for GI prophylaxis Renal/: Acute kidney injury- resolved Hypernatremia History of bladder outlet obstruction Monitor renal function, I/O's, electrolytes replacement per protocol. Replete K , Potassium 3.3 increase Free water flushes 300ml Q4 monitor sodium level. No hydronephrosis on CT abdomen/pelvis ID: UTI Sepsis Fungemia Continue abx per ID ( Micafungin) till September 23.monitor for signs of infections ( Fever, WBC) s/p course of levaquin 09/10 - 09/16 Pertinent cultures 09/08 Bronch: S. Maltophilia, 09/06 Bronch- S. Maltophilia, 09/03 - blood culture - no growth 09/02 - blood culture - no growth 08/27 - blood from central line -Ashley Glabrata 08/27 -arterial line blood - pending 08/26 - sputum -Serratia 08/25 - blood cultures 2 -Ashley 08/25 - urine -no growth 08/22 - blood cultures 2 - no growth 08/21 - urine - no growth 08/20 - blood cultures 2 - 1 out of 4 staph epi Endocrine: Chronic prednisone use secondary to COPD SSI for glycemic control as needed. Heme: s/p Acute blood loss anemia History of prostate cancer Status post 4 units PRBCs ands 2 units FFP on 08/24. Given one unit PRBCs 08/26 Monitor CBC H/H stable. MSK: PT/OT evaluate and treat Access - peripheral IV's, PICC line placed 09/11 Prophylaxis - GI -Protonix - DVT - SCD/ resume heparin 5000 u Sq Q12- cleared by GI. H/H stable. [employer] bridgette for placement. I do not have a medical indication to keep him in an acute care setting. Papi Keating MD Sep 17, 2016 09:40
[2016-09-17] MEDS: SENNOSIDES SYRUP 8.8 MG/5 ML CUP PO SCH (09:41)
[2016-09-17] MEDS: DILTIAZEM HCL 60 MG TAB PO SCH ×4 (09:41→21:02)
[2016-09-17] MEDS: MULTIVITAMINS/MINERALS THERAPEUTIC TAB PO SCH (09:41)
[2016-09-17] MEDS: DOCUSATE SODIUM 100 MG/10 ML UDC PO SCH ×2 (09:42→21:00)
[2016-09-17] MEDS: HEPARIN SODIUM - SQ 10,000 UNITS/ML VIAL SQ SCH ×2 (09:42→21:00)
[2016-09-17] MEDS: METOCLOPRAMIDE HCL 10 MG/2 ML VIAL IV PUSH SCH ×2 (09:42→15:46)
[2016-09-17] MEDS: PANTOPRAZOLE SODIUM 40 MG VIAL IV PUSH SCH ×2 (09:43→21:01)
[2016-09-17] MEDS: SODIUM CHLORIDE 0.9% FLUSH 10 ML FLUSH IV FLUSH SCH ×2 (09:43→11:55)
[2016-09-17] MEDS: LORazepam 2 MG/ML VIAL IV PUSH PRN ×3 (09:44→21:23)
[2016-09-17] MEDS: POTASSIUM PHOSPHATE INJ 30 MMOL in SODIUM CHLOR 0.9% 250 ML INJ 250 ML IV PRN (11:54)
[2016-09-17] MEDS: OLANZapine ODT 5 MG TAB PO SCH ×2 (11:54→18:06)
[2016-09-17] MEDS: MICAFUNGIN INJ 100 MG in SODIUM CHLORIDE 0.9% INJ 100 ML IV SCH (11:54)
[2016-09-17] MEDS: predniSONE 5 MG/5 ML CUP PO SCH (11:55)
--- NOTE | 2016-09-17 12:58 | HHI.IDPN ---
Subjective Subjective Remarks is a 71 y/o CM with COPD and oxygen dependent, Ashley esophagitis, prior h/o pneumonia. According to the since the patient was discharged he continued to have nausea and vomiting. He has not had any bowel movement, and she thinks in the last 3 weeks. Patient started having more weakness, and was getting more short of breath, so the patient presented back to the hospital and was admitted August 20. He was admitted as a COPD exacerbation and pneumonia. He was put on empiric antibiotics. Patient had in hospital cardiorespiratory arrest. He was successfully resuscitated, and intubated. Patient had an A- line in arm, CL in groin which was changed on 08/27/16. 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 Patient continues to have elevated WBC, and is being treated for sepsis secondary to aspiration PNA, Fungemia likely line related (groin line likely now DCed). Notes reviewed D/W RN Temps ok Patient has passey erlinda valve No abdominal pain Getting TF SOB Per RN sats low 90s, sats not registering C/O SOB Finished Levaquin yesterday Antibiotics Levaquin - finished 09/16 IV Micafungin (for fungal line infection) - to finish 4/5 Lines PICC - 09/11 Past Medical History Reviewed Allergies: Coded Allergies: *MDRO Multi-Drug Resistant Organism (Verified Adverse Reaction, Unknown, ) MRSA (abdominal wound) 2015 per 04/10/2015 H&P MRSA PCR Screen #1 NEGATIVE - 08/21/16 Objective . Vital Signs Date Time Temp Pulse Resp B/P Pulse Ox O2 Delivery O2 Flow Rate FiO2 09/17/16 09:35 98 Trach Collar 6.00 40 09/17/16 09:35 40 09/17/16 09:35 Aerosol Mask 6.00 40 09/17/16 08:39 99 40 09/17/16 08:00 40 09/17/16 08:00 71 09/17/16 06:00 70 09/17/16 04:00 40 09/17/16 04:00 64 09/17/16 04:00 97.9 64 16 101/58 98 09/17/16 03:28 95 40 09/17/16 02:00 51 09/17/16 00:00 40 09/17/16 00:00 97.9 67 16 139/77 100 09/17/16 00:00 72 09/16/16 23:20 97 40 09/16/16 22:00 82 09/16/16 20:06 95 40 09/16/16 20:00 40 09/16/16 20:00 76 09/16/16 20:00 98.2 79 16 139/72 95 09/16/16 18:00 78 09/16/16 16:00 84 09/16/16 16:00 99.2 84 16 167/90 92 09/16/16 16:00 40 09/16/16 14:00 86 09/16/16 09/16/16 09/17/16 15:00 23:00 07:00 Intake Total 535 ml 150 ml 800 ml Output Total 1050 ml 300 ml 300 ml Balance -515 ml -150 ml 500 ml IV Total 535 ml 150 ml 100 ml Tube Feeding 100 ml Other 600 ml Output Urine Total 450 ml 300 ml 300 ml Stool Total 600 ml # Bowel Movements 4 5 . Laboratory Tests Test 09/16/16 09/17/16 04:43 06:10 White Blood Count 7.2 TH/MM3 6.8 TH/MM3 Red Blood Count 2.45 MIL/MM3 2.86 MIL/MM3 Hemoglobin 7.7 GM/DL 8.9 GM/DL Hematocrit 22.5 % 26.3 % Mean Corpuscular Volume 91.9 FL 92.0 FL Mean Corpuscular Hemoglobin 31.6 PG 31.0 PG Mean Corpuscular Hemoglobin 34.4 % 33.7 % Concent Red Cell Distribution Width 19.1 % 19.0 % Platelet Count 100 TH/MM3 115 TH/MM3 Mean Platelet Volume 9.2 FL 9.8 FL Neutrophils (%) (Auto) 88.8 % Lymphocytes (%) (Auto) 4.2 % Monocytes (%) (Auto) 6.9 % Eosinophils (%) (Auto) 0.0 % Basophils (%) (Auto) 0.1 % Neutrophils # (Auto) 6.4 TH/MM3 Lymphocytes # (Auto) 0.3 TH/MM3 Monocytes # (Auto) 0.5 TH/MM3 Eosinophils # (Auto) 0.0 TH/MM3 Basophils # (Auto) 0.0 TH/MM3 CBC Comment AUTO DIFF Differential Total Cells 100 Counted Neutrophils % (Manual) 88 % Band Neutrophils % 8 % Lymphocytes % 3 % Monocytes % 1 % Neutrophils # (Manual) 6.9 TH/MM3 Differential Comment FINAL DIFF MANUAL Platelet Estimate LOW Platelet Morphology Comment NORMAL Stomatocytes 1+ Laboratory Tests Test 09/16/16 09/17/16 04:43 06:10 Sodium Level 148 MEQ/L 147 MEQ/L Potassium Level 3.3 MEQ/L 3.2 MEQ/L Chloride Level 112 MEQ/L 113 MEQ/L Carbon Dioxide Level 27.5 MEQ/L 25.2 MEQ/L Anion Gap 9 MEQ/L 9 MEQ/L Blood Urea Nitrogen 24 MG/DL 23 MG/DL Creatinine 0.67 MG/DL 0.69 MG/DL Estimat Glomerular Filtration 117 ML/MIN 113 ML/MIN Rate Random Glucose 93 MG/DL 169 MG/DL Calcium Level 7.9 MG/DL 8.3 MG/DL Phosphorus Level 2.2 MG/DL Magnesium Level 1.5 MG/DL Imaging Chest X-Ray 09/16/16 0000 Signed Impressions: Service Date/Time: Friday, September 16, 2016 04:58 - CONCLUSION: 1. Tracheostomy and right PICC line present. Bilateral airspace disease, right greater than left similar to September 15. Eleazar Jimenez MD Abdomen X-Ray 09/16/16 0000 Signed Impressions: Service Date/Time: Friday, September 16, 2016 10:54 - CONCLUSION: 1. Nasogastric tube looped in the distal esophagus. Gareth Escalante MD Abdomen X-Ray 09/15/16 0600 Signed Impressions: Service Date/Time: Thursday, September 15, 2016 03:16 - CONCLUSION: 1. Improved gaseous distention of bowel since September 14. Mild distention persists. Eleazar Jimenez MD Chest X-Ray 09/15/16 0000 Signed Impressions: Service Date/Time: Thursday, September 15, 2016 13:39 - CONCLUSION: Decrease in medial left lung base atelectasis. No change in hazy right lung base opacity. Donald Valerio MD Abdomen X-Ray 09/14/16 0600 Signed Impressions: Service Date/Time: Wednesday, September 14, 2016 03:56 - CONCLUSION: Gaseous distention of multiple bowel loops, likely ileus. Eduardo Mcconnell MD Chest X-Ray 09/08/16 1325 Signed Impressions: Service Date/Time: Thursday, September 08, 2016 13:37 - CONCLUSION: 1. Interval improvement of the interstitial infiltrates with minimal residual right basilar infiltrate noted. 2. Tracheostomy tube in good position approximately 5 cm above the michele. Lui Kim MD Chest X-Ray 09/06/16 0000 Signed Impressions: Service Date/Time: Tuesday, September 06, 2016 13:49 - CONCLUSION: 1. Interval intubation and placement of nasogastric tube. 2. Volume loss again noted left hemithorax with mediastinal shift. There is coarse infiltrate remaining in the left lung. Ian Horton MD Chest X-Ray 09/06/16 0000 Signed Impressions: Service Date/Time: Tuesday, September 06, 2016 08:50 - CONCLUSION: 1. Increasing density throughout the left hemithorax with volume loss suggesting mucus plugging. Eduardo Mcconnell MD Chest X-Ray 09/05/16 0500 Signed Impressions: Service Date/Time: Monday, September 05, 2016 03:49 - CONCLUSION: 1. Basilar airspace disease similar to prior exam. Support apparatus unchanged. Eleazar Jimenez MD Chest X-Ray 09/05/16 0500 Signed Impressions: Service Date/Time: Monday, September 05, 2016 03:49 - CONCLUSION: 1. Basilar airspace disease similar to prior exam. Support apparatus unchanged. Eleazar Jimenez MD Chest X-Ray 09/01/16 0600 Signed Impressions: Service Date/Time: Thursday, September 01, 2016 03:19 - CONCLUSION: No significant interval change in bilateral pulmonary parenchymal opacity and small bilateral pleural effusions. 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 There is concentric mural thrombus. This aneurysm is not amenable to thrombin injection. Polo Moore Jr., MD Chest X-Ray 08/27/16 0600 Signed Impressions: Service Date/Time: August 02:27 - CONCLUSION: 1. Patchy bilateral airspace disease with improving aeration/decreasing effusions in the bases bilaterally. 2. Stable position of life support tubes. Con Valdes MD Chest X-Ray 08/26/16 0754 Signed Impressions: Service Date/Time: Friday, August 26, 2016 08:14 - CONCLUSION: Left IJ central line distal tip in the SVC. No pneumothorax is visualized. There is a stable appearance the lungs with bilateral airspace consolidation. Lex Malik MD Chest X-Ray 08/26/16 0600 Signed Impressions: Service Date/Time: Friday, August 26, 2016 04:01 - CONCLUSION: 1. Worsening bibasilar effusions/atelectasis with diffuse interstitial edema, all characteristic of CHF. 2. Endotracheal tube remains appropriately positioned above the michele Con Valdes MD Chest X-Ray 08/26/16 0754 Signed Impressions: Service Date/Time: Friday, August 26, 2016 08:14 - CONCLUSION: Left IJ central line distal tip in the SVC. No pneumothorax is visualized. There is a stable appearance the lungs with bilateral airspace consolidation. Lex Malik MD Renal Ultrasound 08/25/16 0000 Signed Impressions: Service Date/Time: Wednesday, August 24, 2016 21:53 - CONCLUSION: 1. There is no hydronephrosis. Both kidneys demonstrate mild increased echotexture of the parenchyma suggesting medical renal disease. 2. Trace perihepatic free fluid and bilateral pleural effusions. Lex Malik MD Chest CT 08/25/16 0000 Signed Impressions: Service Date/Time: Thursday, August 25, 2016 21:20 - CONCLUSION: 1. Bilateral pneumonia and aspiration would be in the differential. There is dependent consolidation/atelectasis and small effusions of the bases as well. 2. Upper limits of normal to mildly enlarged mediastinal lymph nodes, most likely reactive. 3. Coronary artery calcification. 4. Right rib fractures, including acute fractures laterally of the third, fourth and fifth. There are old, healed fractures anteriorly of the right second and third ribs.. Lex Lopez MD Abdomen/Pelvis CT 08/25/16 0000 Signed Impressions: Service Date/Time: Thursday, August 25, 2016 20:20 - CONCLUSION: 1. Ventral hernia containing small bowel and with associated small bowel obstruction. The defect is broad; I believe the obstruction is probably related to scarring and/or adhesions within the hernia sac. I don't see a mass. 2. Distended stomach despite NG tube present. 3. Severe aortoiliac atherosclerosis. No aneurysm. Lex Lopez MD Abdomen X-Ray 08/24/16 0000 Signed Impressions: Service Date/Time: Wednesday, August 24, 2016 17:19 - CONCLUSION: 1. Small bowel dilatation which reflect ileus or obstruction. Followup examination is recommended if clinically indicated. Gareth Escalante MD Physical Exam GENERAL: Awake, has talking trach. SKIN: Warm and dry. No generalized rash HEENT: No scleral icterus. Dry oral mucosa NECK: Trach site ok. Supple. CARDIOVASCULAR: Regular rate and rhythm without murmurs, gallops, or rubs. RESPIRATORY: Decreased breath sounds throughout both lung garcia. GASTROINTESTINAL: Abdomen soft, not tender, less distended. Has a large midline hernia reducible. Has midline scar. No redness or tenderness noted in R groin MUSCULOSKELETAL: Extremities without clubbing, cyanosis. Edema better LINE: PICC no evidence of infection. Assessment & Plan Remarks IMPRESSION Sepsis present on admission and then sepsis again. Better Central line associated blood stream infection (CLABSI) related fungemia ( likely groin line) now discontinued. Arterial line discontinued as well. 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 - S/P Rx Now with Sten mal in sputum, S/P Rx Recurrent respiratory failure, due to mucus plugging - S/P bronch Diarrhea ? Cdiff vs antibiotic associated. Status post cardiorespiratory arrest, likely aspirated Findings SBO within the hernia on CT A/P, clinically better Acute respiratory failure, extubated 09/05 - reintubated 09/06 GI bleed, stable Leukocytosis, up again, reactive due to resp decompensation COPD, oxygen dependent Previous GI bleed with workup showing gastritis, Ashley esophagitis, and polyps Large incisional ventral hernia Bladder outlet obstruction, currently has a Hammond Renal insufficiency RECOMMENDATION Continue Micafungin IV (C.glabrata fungemia) - plan at least 4 weeks from date of last (+) BC which is 08/27 - anticipated end date is September 23 Monitor progress D/W Nuha Nguyen MD Sep 17, 2016 12:57
--- NOTE | 2016-09-17 13:31 | HHI.PR ---
Subjective Subjective Notes Eyes open Oxygen via trach Objective Vitals/I&O Vital Signs Date Time Temp Pulse Resp B/P Pulse Ox O2 Delivery O2 Flow Rate FiO2 09/17/16 12:00 72 09/17/16 12:00 40 09/17/16 09:35 98 Trach Collar 6.00 09/17/16 04:00 97.9 16 101/58 Labs Laboratory Tests Test 09/17/16 06:10 White Blood Count 6.8 Red Blood Count 2.86 Hemoglobin 8.9 Hematocrit 26.3 Mean Corpuscular Volume 92.0 Mean Corpuscular Hemoglobin 31.0 Mean Corpuscular Hemoglobin 33.7 Concent Red Cell Distribution Width 19.0 Platelet Count 115 Mean Platelet Volume 9.8 Sodium Level 147 Potassium Level 3.2 Chloride Level 113 Carbon Dioxide Level 25.2 Anion Gap 9 Blood Urea Nitrogen 23 Creatinine 0.69 Estimat Glomerular Filtration 113 Rate Random Glucose 169 Calcium Level 8.3 Phosphorus Level 2.2 Magnesium Level 1.5 Cardiovascular: Regular Lungs: Clear Abdomen: Non-distended, Non-tender Extremities: Other (generalized edema ) A/P Assessment and Plan 71 year old male s/p cardiac arrest with SBO versus ileus; patient known to Dr. Roberts for large ventral hernia -s/p trach placement; on trach collar -Spoke with RN Yecenia about repositioning NGT -Attempt REGIONAL DIRECTOR eval again -+BM -GS will see peripherally I CERTIFY AND ATTEST THAT I PERSONALLY EXAMINED THIS PATIENT IN THEIR ROOM WITH THE CLEANING AND WASHING EQUIPMENT OPERATOR PRESENT. MS CERVANTES IS DOCUMENTING OUR VISIT IN THE EMR AND ENTERED ORDERS UNDER MY DIRECT SUPERVISION. I DISCUSSED THE CARE PLAN WITH THE PATIENT AND THEIR [facility]FF. Olivia Cope MD, FACS Sep 17, 2016 13:31 Jon Roberts MD Sep 19, 2016 13:46
[2016-09-17] MEDS: MAGNESIUM SULFATE INJ 2 GM in SODIUM CHLORIDE 0.9% INJ 96 ML IV PRN (18:06)
[2016-09-17] MEDS: CHLORHEXIDINE GLUCONATE 0.12% 30 ML CUP MT SCH (20:00)
[2016-09-17] MEDS: RESP: ALBUTEROL 2.5 MG/IPRATROPIUM 0.5 MG NEB (PRN) INH (20:04)
[2016-09-18] VITALS (17 sets, daily range): BP systolic 139–157; BP diastolic 72–92; PULSE 78–112; RESP 17–27; TEMP 97.2–98.3; O2SAT 93–100
[2016-09-18] MEDS: METOCLOPRAMIDE HCL 10 MG/2 ML VIAL IV PUSH SCH ×3 (00:47→17:30)
[2016-09-18] MEDS: POTASSIUM CHLOR 20 MEQ PREMIX 100 ML IV PRN ×2 (00:49→04:40)
[2016-09-18] MEDS: OLANZapine ODT 5 MG TAB PO SCH ×3 (02:09→17:30)
[2016-09-18] MEDS: FREE WATER G-TUBE SCH ×6 (04:00→19:43)
[2016-09-18] MEDS: LORazepam 2 MG/ML VIAL IV PUSH PRN ×3 (04:40→17:30)
[2016-09-18] MEDS: INSULIN NovoLIN REGULAR SUPPLEMENTAL SCALE SQ SCH ×4 (06:00→17:30)
[2016-09-18] MEDS: NYSTATIN 100,000 U/GM PWD 15 GM BTL TOPICAL SCH ×3 (06:28→22:30)
[2016-09-18] MEDS: hydrALAZINE HCL 50 MG TAB PO SCH ×3 (06:28→22:30)
[2016-09-18] MEDS: RESP: BUDESONIDE 0.5 MG/2 ML NEB NEB SCH ×2 (07:51→20:06)
[2016-09-18] MEDS: LACTULOSE SYRUP 20 GM/30 ML CUP PO SCH (08:11)
[2016-09-18] MEDS: DILTIAZEM HCL 60 MG TAB PO SCH ×4 (08:11→19:43)
[2016-09-18] MEDS: DOCUSATE SODIUM 100 MG/10 ML UDC PO SCH ×2 (08:11→19:43)
[2016-09-18] MEDS: SENNOSIDES SYRUP 8.8 MG/5 ML CUP PO SCH (08:11)
[2016-09-18] MEDS: MULTIVITAMINS/MINERALS THERAPEUTIC TAB PO SCH (08:11)
[2016-09-18] MEDS: PANTOPRAZOLE SODIUM 40 MG VIAL IV PUSH SCH ×2 (08:12→19:43)
[2016-09-18] MEDS: HEPARIN SODIUM - SQ 10,000 UNITS/ML VIAL SQ SCH ×2 (08:12→19:43)
[2016-09-18] MEDS: COLLAGENASE OINT 30 GM TUBE TOP SCH (08:13)
[2016-09-18] MEDS: predniSONE 5 MG/5 ML CUP PO SCH (12:53)
[2016-09-18] MEDS: SODIUM CHLORIDE 0.9% FLUSH 5 ML FLUSH IVF SCH (12:53)
[2016-09-18] MEDS: MICAFUNGIN INJ 100 MG in SODIUM CHLORIDE 0.9% INJ 100 ML IV SCH (12:54)
--- NOTE | 2016-09-18 16:45 | HHI.CCPN ---
Subjective Remarks/Hospital Course 08/24: 71 Year-old male with a medical history significant for COPD on home oxygen who was recently admitted with suspected sepsis/H And was initiated on IV antibiotics and steroids. He had recently been evaluated by GI and underwent EGD on 08/10/2016 and was found to have moderate esophagitis, mild gastritis with pathology subsequently showing Ashley esophagitis as well as colonoscopy on 08/11/2016 with polypectomy and ablation of polyp in ascending colon with hot snare. Patient has been dealing with constipation since his admission. Today when he was trying to have a bowel movement he suddenly became less responsive and then had a large emesis which resulted in aspiration and hemodynamic collapse. Patient initially had large volume emesis with dark maroon blood. CODE BLUE cardiac arrest code was activated. On my arrival patient was in bed CPR had been initiated. Significant gastric contents was still being suctioned out of his oral cavity. ACLS protocol was continued. Patient was intubated following vigorous suctioning of gastric contents from oral cavity as well as with placement of NG tube which is hooked up to suction and about 1.5 L of gastric contents being suctioned out which appeared to be dark maroon in color. Patient initially had a pulse when CODE BLUE was called and subsequently went in PEA arrest followed by asystole during ACLS and then V. fib for which he was defibrillated with 200 J 1, CPR/ACLS protocol was continued and patient eventually had return of spontaneous circulation after about 15 minutes of CPR/ACLS. Patient was transferred to [facility] and placed on mechanical ventilation. I emergently placed left femoral central line for central vascular access and he was started on Levophed for pressor support. 2 units of O- 1 crossmatch blood were ordered and transfused stat. He also received 1 L of normal saline bolus following return of spontaneous circulation. Stat labs were ordered. His hemoglobin on ABG done post resuscitation was 5.6. I did order Protonix 80 mg IV stat followed by 8 mg per hour IV infusion. Patient remained encephalopathic though was minimally responsive following transfer to the ICU. GI consult was requested and I spoke with Dr. Zamarripa at bedside on his arrival. History was obtained by reviewing records, discussion with family/ GI as well as nursing staff. According to patient's daughter he has not been doing well for the last few months in terms of his breathing and has been using his home oxygen more often. He gets extremely short of breath even with the least exertion. 08/25: Remains encephalopathic/ sedated, [facility]. Transiently off levophed last night however back to 11 mcg/min currently. Hgb up to 9.4 following 4 units PRBCs transfused last night. 08/26: Tmax 99. Some unresponsive on the ventilator. CT abdomen/pelvis less than revealed small bowel obstruction at site of ventral hernia. No further bleeding noted. Gastric output approximately 700 cc. No bowel movement. 08/27: Tmax 99.7. Currently afebrile. Positive BM overnight approximately 1 L according to RN. No blood noted. 100 cc from gastric tube overnight. Hemoglobin corrected a properly. Likely dilutional. Noted fungemia currently issue. Opens eyes to voice. 08/28: Tmax 99.1. No BMs overnight. Minimal gastric tube output. Hemoglobin stable 9.5. Opens eyes to voice. Not following commands. Appears with singultus this morning. 08/29: 20 beat run of wide complex tachycardia overnight. Noted potassium 3.2. This is been replaced. We'll recheck this afternoon. Circuit exchange yesterday. Patient tolerating pressure control ventilation much better than PRVC/AC ventilation is low probably VQ scan. Less FiO2 requirements. No BM past 24 hour. 08/30: Unable to wean ventilator. 08/31: Patient was extubated on 08/30 however became tachypneic with use of accessory muscles of respiration and required reintubation around 6:30 PM last night and was placed back on mechanical ventilation. Currently sedated, orally intubated on mechanical ventilation. Post intubation chest x-ray suggested fluid overload for which she was given Lasix 40 mg IV with good response having made about 2.5 L urine the last 7 hours. 09/01: Remains sedated, orally intubated on mechanical ventilation. Diuresing well with Lasix. Awaiting EGD in a.m. 09/02: Little progress. CXR clearing nicely. Continue diuresis, tolerate hypernatremia. 09/03: Good diuretic response. CRISTHIAN today with no valvar pathology. 09/04: Too weak to tolerate extubation. Will require trach. 09/05: Sedated, arousable, following commands. Tolerated C Pap trial for 9 hours yesterday with pressure support +10. Tolerating tube feeds. 09/06: Extubated yesterday. Chest x-ray reveals likely mucous plugging in left lung garcia. Currently on nonrebreather mask. Planning of insomnia and thick secretions that he is unable to cough up. 09/07 Patient s/p reintubation and bronch 09/06 mucous plugs in left main stem bronchus sedated with Diprivan and Fentanyl. Afebrile. For possible trach tomorrow. 09/08 No acute events overnight. Sedated with Diprivan and Fentanyl. Afebrile. For trach today. 09/09 No acute events overnight. Sedated and intubated. s/p trach yesterday for PEG tube placement today. 09/10 Patient remains sedated and on ventilator via trach. s/p EGD yesterday PEG tube couldn't be placed endoscopically due to hernia. Surgery consulted for J-tube placement. Afebrile. 09/11 No acute events overnight. Sedated with Diprivan, Fentanyl and intubated. Afebrile. Tolerating tube feeds. 09/12 Patient is off Diprivan remains on Fentanyl infusion tolerated CPAP trials for several hrs and TP's x 2 hrs yesterday now on TP with 50% FIO2. Afebrile. 09/13 Patient tolerated TP's all day yesterday placed on PRVC/AC mode overnight. TF held for high residuals. Afebrile. On Fentanyl infusion however he is awake, restless. 09/14 No acute events overnight. Tolerated TP's all day yesterday placed back on ventilator overnight. On Fentanyl infusion. Afebrile. Repeat KUB this morning showed ileus. 09/15 Patient is off fentanyl infusion and is on Precedex drip pulled his NGT overnight. KUB this morning showed improvements in gaseous distention of bowel. 09/16 Yesterday afternoon an NG tube was placed patient was noted to have tube feeds with possible aspiration.NGT placed this am, KUB pending. 09/17: no acute events overnight. tolerated cpap. back on rate overnight. this morning on trach collar. Subjective 09/18: prior history of constipation, now with diarrhea. otherwise, awaiting placement. Objective Vital Signs Date Time Temp Pulse Resp B/P Pulse Ox O2 Delivery O2 Flow Rate FiO2 09/18/16 14:00 88 09/18/16 12:00 40 09/18/16 08:44 99 Trach Collar 6.00 09/18/16 04:00 97.2 27 148/75 Intake and Output 09/17/16 09/17/16 09/18/16 08:00 16:00 00:00 Intake Total 800 ml 717 ml 327 ml Output Total 300 ml 355 ml 125 ml Balance 500 ml 362 ml 202 ml Result Diagram: 09/17/16 0610 09/18/16 0830 Imaging Last Impressions Abdomen X-Ray 09/15/16 0600 Signed Impressions: Service Date/Time: Thursday, September 15, 2016 03:16 - CONCLUSION: 1. Improved gaseous distention of bowel since September 14. Mild distention persists. 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 There is concentric mural thrombus. This aneurysm is not amenable to thrombin injection. Polo Moore Jr., MD Lung Scan- Nuclear Medicine 08/29/16 0000 Signed Impressions: Service Date/Time: Monday, August 29, 2016 10:20 - CONCLUSION: Low probability for pulmonary embolus. Lex Lopez MD Brain MRI 08/27/16 0000 Signed Impressions: Service Date/Time: August 15:13 - CONCLUSION: No evidence of acute infarct, hemorrhage, mass or edema. No findings to suggest significant anoxic injury. Kit Power MD Renal Ultrasound 08/25/16 0000 Signed Impressions: Service Date/Time: Wednesday, August 24, 2016 21:53 - CONCLUSION: 1. There is no hydronephrosis. Both kidneys demonstrate mild increased echotexture of the parenchyma suggesting medical renal disease. 2. Trace perihepatic free fluid and bilateral pleural effusions. Lex Malik MD Chest CT 08/25/16 0000 Signed Impressions: Service Date/Time: Thursday, August 25, 2016 21:20 - CONCLUSION: 1. Bilateral pneumonia and aspiration would be in the differential. There is dependent consolidation/atelectasis and small effusions of the bases as well. 2. Upper limits of normal to mildly enlarged mediastinal lymph nodes, most likely reactive. 3. Coronary artery calcification. 4. Right rib fractures, including acute fractures laterally of the third, fourth and fifth. There are old, healed fractures anteriorly of the right second and third ribs.. Lex Lopez MD Abdomen/Pelvis CT 08/25/16 0000 Signed Impressions: Service Date/Time: Thursday, August 25, 2016 20:20 - CONCLUSION: 1. Ventral hernia containing small bowel and with associated small bowel obstruction. The defect is broad; I believe the obstruction is probably related to scarring and/or adhesions within the hernia sac. I don't see a mass. 2. Distended stomach despite NG tube present. 3. Severe aortoiliac atherosclerosis. No aneurysm. Lex Lopez MD Objective Remarks GENERAL: Patient is 71 yo lying in bed in NAD on trach collar SKIN: Warm and dry. HEAD: Normocephalic. EYES: No scleral icterus. No injection or drainage. NECK: trachea midline. No JVD. Trach in place CARDIOVASCULAR: Regular rate and rhythm without murmurs, gallops, or rubs. RESPIRATORY: Breath sounds equal bilaterally. No accessory muscle use. GASTROINTESTINAL: Abdomen soft, non-tender, nondistended. MUSCULOSKELETAL: No cyanosis, +1 edema. Neuro: Awake. A/P Assessment and Plan Neuro/Psych: Status post CPR 15 minutes Depression NOS Neurochecks per ICU protocol Ativan 1mg Q4 PRN agitation- will hopefully wean off of this zyprexa 5mg po q8hr for agitation. EEG 08/25 revealed mild to moderate encephalopathy. No epileptiform activity. MRI brain 08/27 revealed no acute findings. Cardiovascular: Cardiac arrest status post CPR Elevated troponin History dyslipidemia History of hypertension PVD Systemic shock likely secondary to sepsis/aspiration/small bowel obstruction Possible femoral pseudoaneurysm Monitor HR and BP keep MAP>65mmHg Cardizem 60mg QID, Hydralazine 50mg Q8 Cardiac arrest status post CPR. s/p aggressive fluid resuscitation. 5 units PRBCs transfused to date minimal troponin elevation following cardiac arrest noted Echo 2D revealed EF 35-40%. Moderate LVH. Mitral valve calcified. Mild TR. Pulmonary: Acute respiratory failure secondary to aspiration pneumonia- Reintubated 09/06 s/p Trach on 09/08 End-stage COPD. Oxygen dependent FEV1 28%, FVC 1.6. S/P Aspiration 09/15 s/p reintubation and bronch 09/06 mucous plugs in left main stem bronchus Continue with vent support keep sat >92% Bronchodilators, Pulmicort twice a day CPAP /TP trials as anneliese. prednisone taper. VQ scan low probability 08/29 ICU vent bundle, pulm toilet, trach care F/U CXR GI: Small bowel obstruction - resolved Upper GI bleed plus esophageal rule out aorto esophageal fistula History of Ashley esophagitis History of colonic polyps History of ventral hernia status post repair last by Dr. Robrets Diarrhea Repeat KUB abdomen showed improvements in gaseous distention of bowel. on Reglan 5mg IV Q8, Senna, Lactulose, Colace. increase tube feeds to goal. I think from a GI standpoint, the plan should remain to use nasogastric access at this time. continue frequent speech eval for swallowing. If he fails once off the vent with better nutrition, will need permanent feeding tube by IR or surgery. I do not think this is a barrier to placement. s/p EGD 09/09: Deformed pylorus/antrum, nodular mucosa-multiple biopsies taken esophagitis distal esophagus-biopsy unable to place peg endoscopically due to hiatal hernia. CT abdomen/pelvis revealed possible small bowel obstruction at level of ventral hernia. Severe aortoiliac disease. Dr. Roberts/general surgery evaluated. Very poor surgical candidate this time. EGD 08/25 revealed esophageal nipple. Clots noted within the gastric contents without active bleeding. Protonix for GI prophylaxis Hold Bowel regimen. We'll hold off on playing rectal tube in until we have held all the bowel regimen and we have persistent diarrhea. Renal/: Acute kidney injury- resolved Hypernatremia History of bladder outlet obstruction Monitor renal function, I/O's, electrolytes replacement per protocol. Replete K , Potassium 3.3 Free water flushes 300ml Q4 monitor sodium level. No hydronephrosis on CT abdomen/pelvis ID: UTI Sepsis Fungemia Continue abx per ID ( Micafungin) till September 23.monitor for signs of infections ( Fever, WBC) s/p course of levaquin 09/10 - 09/16 Pertinent cultures 09/08 Bronch: S. Maltophilia, 09/06 Bronch- S. Maltophilia, 09/03 - blood culture - no growth 09/02 - blood culture - no growth 08/27 - blood from central line -Ashley Glabrata 08/27 -arterial line blood - pending 08/26 - sputum -Serratia 08/25 - blood cultures 2 -Ashley 08/25 - urine -no growth 08/22 - blood cultures 2 - no growth 08/21 - urine - no growth 08/20 - blood cultures 2 - 1 out of 4 staph epi Endocrine: Chronic prednisone use secondary to COPD SSI for glycemic control as needed. Heme: s/p Acute blood loss anemia History of prostate cancer Status post 4 units PRBCs ands 2 units FFP on 08/24. Given one unit PRBCs 08/26 Monitor CBC H/H stable. MSK: PT/OT evaluate and treat Access - peripheral IV's, PICC line placed 09/11 Prophylaxis - GI -Protonix - DVT - SCD/ heparin 5000 u Sq Q12- cleared by GI. H/H stable. 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 I do not have a medical indication to keep him in an acute care setting. Papi Keating MD Sep 18, 2016 16:44
--- NOTE | 2016-09-18 16:51 | HHI.IDPN ---
Subjective Subjective Remarks Notes reviewed D/W RN Temps ok Patient has passey erlinda valve, on T-piece Goes on rate at night No abdominal pain Getting TF Antibiotics Levaquin - finished 09/16 IV Micafungin (for fungal line infection) - to finish 4/5 Lines PICC - 09/11 Past Medical History Reviewed Allergies: Coded Allergies: *MDRO Multi-Drug Resistant Organism (Verified Adverse Reaction, Unknown, ) MRSA (abdominal wound) 2015 per 04/10/2015 H&P MRSA PCR Screen #1 NEGATIVE - 08/21/16 Objective . Vital Signs Date Time Temp Pulse Resp B/P Pulse Ox O2 Delivery O2 Flow Rate FiO2 09/18/16 14:00 88 09/18/16 12:00 40 09/18/16 12:00 90 09/18/16 10:00 96 09/18/16 08:44 99 Trach Collar 6.00 40 09/18/16 08:00 40 09/18/16 08:00 102 09/18/16 07:51 100 40 09/18/16 06:00 91 09/18/16 04:12 100 40 09/18/16 04:00 97.2 100 27 148/75 100 09/18/16 04:00 100 09/18/16 04:00 40 09/18/16 02:00 107 09/18/16 01:14 100 40 09/18/16 00:00 98.3 90 20 139/72 100 09/18/16 00:00 40 09/18/16 00:00 90 09/17/16 22:09 94 40 09/17/16 22:00 95 09/17/16 20:15 94 40 09/17/16 20:04 94 Trach Collar 6.00 40 09/17/16 20:00 108 09/17/16 20:00 96.7 108 24 149/76 91 09/17/16 20:00 40 09/17/16 18:00 74 09/17/16 09/17/16 09/18/16 15:00 23:00 07:00 Intake Total 717 ml 327 ml 707 ml Output Total 355 ml 125 ml 250 ml Balance 362 ml 202 ml 457 ml IV Total 398 ml 110 ml 253 ml Tube Feeding 319 ml 217 ml 454 ml Output Urine Total 355 ml 125 ml 250 ml # Bowel Movements 4 0 0 . Laboratory Tests Test 3/30/17 06:10 White Blood Count 6.8 TH/MM3 Red Blood Count 2.86 MIL/MM3 Hemoglobin 8.9 GM/DL Hematocrit 26.3 % Mean Corpuscular Volume 92.0 FL Mean Corpuscular Hemoglobin 31.0 PG Mean Corpuscular Hemoglobin 33.7 % Concent Red Cell Distribution Width 19.0 % Platelet Count 115 TH/MM3 Mean Platelet Volume 9.8 FL Laboratory Tests Test 09/17/16 09/17/16 09/18/16 06:10 21:30 08:30 Sodium Level 147 MEQ/L Potassium Level 3.2 MEQ/L 3.1 MEQ/L 3.7 MEQ/L Chloride Level 113 MEQ/L Carbon Dioxide Level 25.2 MEQ/L Anion Gap 9 MEQ/L Blood Urea Nitrogen 23 MG/DL Creatinine 0.69 MG/DL Estimat Glomerular Filtration 113 ML/MIN Rate Random Glucose 169 MG/DL Calcium Level 8.3 MG/DL Phosphorus Level 2.2 MG/DL Magnesium Level 1.5 MG/DL Imaging Chest X-Ray 09/16/16 0000 Signed Impressions: Service Date/Time: Friday, September 16, 2016 04:58 - CONCLUSION: 1. Tracheostomy and right PICC line present. Bilateral airspace disease, right greater than left similar to September 15. Eleazar Jimenez MD Abdomen X-Ray 09/16/16 0000 Signed Impressions: Service Date/Time: Friday, September 16, 2016 10:54 - CONCLUSION: 1. Nasogastric tube looped in the distal esophagus. Gareth Escalante MD Abdomen X-Ray 09/15/16 0600 Signed Impressions: Service Date/Time: Thursday, September 15, 2016 03:16 - CONCLUSION: 1. Improved gaseous distention of bowel since September 14. Mild distention persists. Eleazar Jimenez MD Chest X-Ray 09/15/16 0000 Signed Impressions: Service Date/Time: Thursday, September 15, 2016 13:39 - CONCLUSION: Decrease in medial left lung base atelectasis. No change in hazy right lung base opacity. Donald Valerio MD Abdomen X-Ray 09/14/16 0600 Signed Impressions: Service Date/Time: Wednesday, September 14, 2016 03:56 - CONCLUSION: Gaseous distention of multiple bowel loops, likely ileus. Eduardo Mcconnell MD Chest X-Ray 09/08/16 1325 Signed Impressions: Service Date/Time: Thursday, September 08, 2016 13:37 - CONCLUSION: 1. Interval improvement of the interstitial infiltrates with minimal residual right basilar infiltrate noted. 2. Tracheostomy tube in good position approximately 5 cm above the michele. Lui Kim MD Chest X-Ray 09/06/16 0000 Signed Impressions: Service Date/Time: Tuesday, September 06, 2016 13:49 - CONCLUSION: 1. Interval intubation and placement of nasogastric tube. 2. Volume loss again noted left hemithorax with mediastinal shift. There is coarse infiltrate remaining in the left lung. Ian Horton MD Chest X-Ray 09/06/16 0000 Signed Impressions: Service Date/Time: Tuesday, September 06, 2016 08:50 - CONCLUSION: 1. Increasing density throughout the left hemithorax with volume loss suggesting mucus plugging. Eduardo Mcconnell MD Chest X-Ray 09/05/16 0500 Signed Impressions: Service Date/Time: Monday, September 05, 2016 03:49 - CONCLUSION: 1. Basilar airspace disease similar to prior exam. Support apparatus unchanged. Eleazar Jimenez MD Chest X-Ray 09/05/16 0500 Signed Impressions: Service Date/Time: Monday, September 05, 2016 03:49 - CONCLUSION: 1. Basilar airspace disease similar to prior exam. Support apparatus unchanged. Eleazar Jimenez MD Chest X-Ray 09/01/16 0600 Signed Impressions: Service Date/Time: Thursday, September 01, 2016 03:19 - CONCLUSION: No significant interval change in bilateral pulmonary parenchymal opacity and small bilateral pleural effusions. 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 There is concentric mural thrombus. This aneurysm is not amenable to thrombin injection. Polo Moore Jr., MD Chest X-Ray 08/27/16 0600 Signed Impressions: Service Date/Time: August 02:27 - CONCLUSION: 1. Patchy bilateral airspace disease with improving aeration/decreasing effusions in the bases bilaterally. 2. Stable position of life support tubes. Con Valdes MD Chest X-Ray 08/26/16 0754 Signed Impressions: Service Date/Time: Friday, August 26, 2016 08:14 - CONCLUSION: Left IJ central line distal tip in the SVC. No pneumothorax is visualized. There is a stable appearance the lungs with bilateral airspace consolidation. Lex Malik MD Chest X-Ray 08/26/16 0600 Signed Impressions: Service Date/Time: Friday, August 26, 2016 04:01 - CONCLUSION: 1. Worsening bibasilar effusions/atelectasis with diffuse interstitial edema, all characteristic of CHF. 2. Endotracheal tube remains appropriately positioned above the michele Con Valdes MD Chest X-Ray 08/26/16 0754 Signed Impressions: Service Date/Time: Friday, August 26, 2016 08:14 - CONCLUSION: Left IJ central line distal tip in the SVC. No pneumothorax is visualized. There is a stable appearance the lungs with bilateral airspace consolidation. Lex Malik MD Renal Ultrasound 08/25/16 0000 Signed Impressions: Service Date/Time: Wednesday, August 24, 2016 21:53 - CONCLUSION: 1. There is no hydronephrosis. Both kidneys demonstrate mild increased echotexture of the parenchyma suggesting medical renal disease. 2. Trace perihepatic free fluid and bilateral pleural effusions. Lex Malik MD Chest CT 08/25/16 0000 Signed Impressions: Service Date/Time: Thursday, August 25, 2016 21:20 - CONCLUSION: 1. Bilateral pneumonia and aspiration would be in the differential. There is dependent consolidation/atelectasis and small effusions of the bases as well. 2. Upper limits of normal to mildly enlarged mediastinal lymph nodes, most likely reactive. 3. Coronary artery calcification. 4. Right rib fractures, including acute fractures laterally of the third, fourth and fifth. There are old, healed fractures anteriorly of the right second and third ribs.. Lex Lopez MD Abdomen/Pelvis CT 08/25/16 0000 Signed Impressions: Service Date/Time: Thursday, August 25, 2016 20:20 - CONCLUSION: 1. Ventral hernia containing small bowel and with associated small bowel obstruction. The defect is broad; I believe the obstruction is probably related to scarring and/or adhesions within the hernia sac. I don't see a mass. 2. Distended stomach despite NG tube present. 3. Severe aortoiliac atherosclerosis. No aneurysm. Lex Lopez MD Abdomen X-Ray 08/24/16 0000 Signed Impressions: Service Date/Time: Wednesday, August 24, 2016 17:19 - CONCLUSION: 1. Small bowel dilatation which reflect ileus or obstruction. Followup examination is recommended if clinically indicated. Gareth Escalante MD Physical Exam GENERAL: Awake, has talking trach. SKIN: Warm and dry. No generalized rash HEENT: No scleral icterus. Dry oral mucosa NECK: Trach site ok. Supple. CARDIOVASCULAR: Regular rate and rhythm without murmurs, gallops, or rubs. RESPIRATORY: Decreased breath sounds throughout both lung garcia. GASTROINTESTINAL: Abdomen soft, not tender, less distended. Has a large midline hernia reducible. Has midline scar. No redness or tenderness noted in R groin MUSCULOSKELETAL: Extremities without clubbing, cyanosis. Edema better LINE: PICC no evidence of infection. Assessment & Plan Remarks IMPRESSION Sepsis present on admission and then sepsis again. Better Central line associated blood stream infection (CLABSI) related fungemia ( likely groin line) now discontinued. Arterial line discontinued as well. 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 - S/P Rx Now with Sten mal in sputum, S/P Rx Recurrent respiratory failure, due to mucus plugging - S/P bronch Diarrhea ? Cdiff vs antibiotic associated. Status post cardiorespiratory arrest, likely aspirated Findings SBO within the hernia on CT A/P, clinically better Acute respiratory failure, extubated 09/05 - reintubated 09/06 GI bleed, stable Leukocytosis, up again, reactive due to resp decompensation COPD, oxygen dependent Previous GI bleed with workup showing gastritis, Ashley esophagitis, and polyps Large incisional ventral hernia Bladder outlet obstruction, currently has a Hammond Renal insufficiency RECOMMENDATION Continue Micafungin IV (C.glabrata fungemia) - plan at least 4 weeks from date of last (+) BC which is 08/27 - anticipated end date is September 23 Monitor progress Weaning per CCM as tolerated Dimayuga,Nuha G MD Sep 18, 2016 16:51
[2016-09-18] MEDS: CHLORHEXIDINE GLUCONATE 0.12% 30 ML CUP MT SCH (19:45)
[2016-09-18] MEDS: RESP: ALBUTEROL 2.5 MG/IPRATROPIUM 0.5 MG NEB (PRN) INH (20:06)
[2016-09-19] VITALS (16 sets, daily range): BP systolic 127–150; BP diastolic 76–117; PULSE 93–124; RESP 19–38; TEMP 97.7–98.9; O2SAT 96–99
[2016-09-19] MEDS: METOCLOPRAMIDE HCL 10 MG/2 ML VIAL IV PUSH SCH ×4 (00:13→23:28)
[2016-09-19] MEDS: INSULIN NovoLIN REGULAR SUPPLEMENTAL SCALE SQ SCH ×4 (00:28→18:00)
[2016-09-19] MEDS: OLANZapine ODT 5 MG TAB PO SCH ×3 (01:13→18:20)
[2016-09-19] MEDS: FREE WATER G-TUBE SCH ×6 (04:00→20:00)
[2016-09-19] MEDS: hydrALAZINE HCL 50 MG TAB PO SCH ×3 (05:30→22:00)
[2016-09-19] MEDS: NYSTATIN 100,000 U/GM PWD 15 GM BTL TOPICAL SCH ×3 (05:30→22:00)
[2016-09-19] MEDS: PANTOPRAZOLE SODIUM 40 MG VIAL IV PUSH SCH ×2 (08:54→21:00)
[2016-09-19] MEDS: HEPARIN SODIUM - SQ 10,000 UNITS/ML VIAL SQ SCH ×2 (08:55→21:00)
[2016-09-19] MEDS: predniSONE 5 MG/5 ML CUP PO SCH (08:57)
[2016-09-19] MEDS: LACTULOSE SYRUP 20 GM/30 ML CUP PO SCH (08:58)
[2016-09-19] MEDS: DOCUSATE SODIUM 100 MG/10 ML UDC PO SCH ×2 (08:59→21:00)
[2016-09-19] MEDS: DILTIAZEM HCL 60 MG TAB PO SCH ×4 (08:59→21:00)
[2016-09-19] MEDS: MULTIVITAMINS/MINERALS THERAPEUTIC TAB PO SCH (08:59)
[2016-09-19] MEDS: SENNOSIDES SYRUP 8.8 MG/5 ML CUP PO SCH (08:59)
[2016-09-19] MEDS: SODIUM CHLORIDE 0.9% FLUSH 10 ML FLUSH IV FLUSH SCH (09:00)
[2016-09-19] MEDS: SODIUM CHLORIDE 0.9% FLUSH 5 ML FLUSH IVF SCH (09:00)
[2016-09-19] MEDS: CHLORHEXIDINE GLUCONATE 0.12% 30 ML CUP MT SCH ×2 (09:01→20:00)
[2016-09-19] MEDS: COLLAGENASE OINT 30 GM TUBE TOP SCH (09:02)
[2016-09-19] MEDS: RESP: ALBUTEROL 2.5 MG/IPRATROPIUM 0.5 MG NEB (PRN) INH (10:17)
[2016-09-19] MEDS: RESP: BUDESONIDE 0.5 MG/2 ML NEB NEB SCH ×2 (10:17→19:59)
--- NOTE | 2016-09-19 11:59 | HHI.CCPN ---
Subjective Remarks/Hospital Course 08/24: 71 Year-old male with a medical history significant for COPD on home oxygen who was recently admitted with suspected sepsis/H And was initiated on IV antibiotics and steroids. He had recently been evaluated by GI and underwent EGD on 08/10/2016 and was found to have moderate esophagitis, mild gastritis with pathology subsequently showing Ashley esophagitis as well as colonoscopy on 08/11/2016 with polypectomy and ablation of polyp in ascending colon with hot snare. Patient has been dealing with constipation since his admission. Today when he was trying to have a bowel movement he suddenly became less responsive and then had a large emesis which resulted in aspiration and hemodynamic collapse. Patient initially had large volume emesis with dark maroon blood. CODE BLUE cardiac arrest code was activated. On my arrival patient was in bed CPR had been initiated. Significant gastric contents was still being suctioned out of his oral cavity. ACLS protocol was continued. Patient was intubated following vigorous suctioning of gastric contents from oral cavity as well as with placement of NG tube which is hooked up to suction and about 1.5 L of gastric contents being suctioned out which appeared to be dark maroon in color. Patient initially had a pulse when CODE BLUE was called and subsequently went in PEA arrest followed by asystole during ACLS and then V. fib for which he was defibrillated with 200 J 1, CPR/ACLS protocol was continued and patient eventually had return of spontaneous circulation after about 15 minutes of CPR/ACLS. Patient was transferred to [facility] and placed on mechanical ventilation. I emergently placed left femoral central line for central vascular access and he was started on Levophed for pressor support. 2 units of O- 1 crossmatch blood were ordered and transfused stat. He also received 1 L of normal saline bolus following return of spontaneous circulation. Stat labs were ordered. His hemoglobin on ABG done post resuscitation was 5.6. I did order Protonix 80 mg IV stat followed by 8 mg per hour IV infusion. Patient remained encephalopathic though was minimally responsive following transfer to the ICU. GI consult was requested and I spoke with Dr. Zamarripa at bedside on his arrival. History was obtained by reviewing records, discussion with family/ GI as well as nursing staff. According to patient's daughter he has not been doing well for the last few months in terms of his breathing and has been using his home oxygen more often. He gets extremely short of breath even with the least exertion. 08/25: Remains encephalopathic/ sedated, [facility]. Transiently off levophed last night however back to 11 mcg/min currently. Hgb up to 9.4 following 4 units PRBCs transfused last night. 08/26: Tmax 99. Some unresponsive on the ventilator. CT abdomen/pelvis less than revealed small bowel obstruction at site of ventral hernia. No further bleeding noted. Gastric output approximately 700 cc. No bowel movement. 08/27: Tmax 99.7. Currently afebrile. Positive BM overnight approximately 1 L according to RN. No blood noted. 100 cc from gastric tube overnight. Hemoglobin corrected a properly. Likely dilutional. Noted fungemia currently issue. Opens eyes to voice. 08/28: Tmax 99.1. No BMs overnight. Minimal gastric tube output. Hemoglobin stable 9.5. Opens eyes to voice. Not following commands. Appears with singultus this morning. 08/29: 20 beat run of wide complex tachycardia overnight. Noted potassium 3.2. This is been replaced. We'll recheck this afternoon. Circuit exchange yesterday. Patient tolerating pressure control ventilation much better than PRVC/AC ventilation is low probably VQ scan. Less FiO2 requirements. No BM past 24 hour. 08/30: Unable to wean ventilator. 08/31: Patient was extubated on 08/30 however became tachypneic with use of accessory muscles of respiration and required reintubation around 6:30 PM last night and was placed back on mechanical ventilation. Currently sedated, orally intubated on mechanical ventilation. Post intubation chest x-ray suggested fluid overload for which she was given Lasix 40 mg IV with good response having made about 2.5 L urine the last 7 hours. 09/01: Remains sedated, orally intubated on mechanical ventilation. Diuresing well with Lasix. Awaiting EGD in a.m. 09/02: Little progress. CXR clearing nicely. Continue diuresis, tolerate hypernatremia. 09/03: Good diuretic response. CRISTHIAN today with no valvar pathology. 09/04: Too weak to tolerate extubation. Will require trach. 09/05: Sedated, arousable, following commands. Tolerated C Pap trial for 9 hours yesterday with pressure support +10. Tolerating tube feeds. 09/06: Extubated yesterday. Chest x-ray reveals likely mucous plugging in left lung garcia. Currently on nonrebreather mask. Planning of insomnia and thick secretions that he is unable to cough up. 09/07 Patient s/p reintubation and bronch 09/06 mucous plugs in left main stem bronchus sedated with Diprivan and Fentanyl. Afebrile. For possible trach tomorrow. 09/08 No acute events overnight. Sedated with Diprivan and Fentanyl. Afebrile. For trach today. 09/09 No acute events overnight. Sedated and intubated. s/p trach yesterday for PEG tube placement today. 09/10 Patient remains sedated and on ventilator via trach. s/p EGD yesterday PEG tube couldn't be placed endoscopically due to hernia. Surgery consulted for J-tube placement. Afebrile. 09/11 No acute events overnight. Sedated with Diprivan, Fentanyl and intubated. Afebrile. Tolerating tube feeds. 09/12 Patient is off Diprivan remains on Fentanyl infusion tolerated CPAP trials for several hrs and TP's x 2 hrs yesterday now on TP with 50% FIO2. Afebrile. 09/13 Patient tolerated TP's all day yesterday placed on PRVC/AC mode overnight. TF held for high residuals. Afebrile. On Fentanyl infusion however he is awake, restless. 09/14 No acute events overnight. Tolerated TP's all day yesterday placed back on ventilator overnight. On Fentanyl infusion. Afebrile. Repeat KUB this morning showed ileus. 09/15 Patient is off fentanyl infusion and is on Precedex drip pulled his NGT overnight. KUB this morning showed improvements in gaseous distention of bowel. 09/16 Yesterday afternoon an NG tube was placed patient was noted to have tube feeds with possible aspiration.NGT placed this am, KUB pending. 09/17: no acute events overnight. tolerated cpap. back on rate overnight. this morning on trach collar. 09/18: prior history of constipation, now with diarrhea. otherwise, awaiting placement. Subjective 09/19: diarrhea improving. still awaiting placement. Objective Vital Signs Date Time Temp Pulse Resp B/P Pulse Ox O2 Delivery O2 Flow Rate FiO2 09/19/16 11:37 98 40 09/19/16 06:00 96 09/19/16 04:00 98.2 19 150/86 09/18/16 08:44 Trach Collar 6.00 Intake and Output 09/18/16 09/18/16 09/18/16 07:59 15:59 23:59 Intake Total 707 ml 850 ml 775 ml Output Total 250 ml 440 ml 500 ml Balance 457 ml 410 ml 275 ml Result Diagram: 09/17/16 0610 09/18/16 0830 Imaging Last Impressions Abdomen X-Ray 09/15/16 0600 Signed Impressions: Service Date/Time: Thursday, September 15, 2016 03:16 - CONCLUSION: 1. Improved gaseous distention of bowel since September 14. Mild distention persists. 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 There is concentric mural thrombus. This aneurysm is not amenable to thrombin injection. Polo Moore Jr., MD Lung Scan- Nuclear Medicine 08/29/16 0000 Signed Impressions: Service Date/Time: Monday, August 29, 2016 10:20 - CONCLUSION: Low probability for pulmonary embolus. Lex Lopez MD Brain MRI 08/27/16 0000 Signed Impressions: Service Date/Time: August 15:13 - CONCLUSION: No evidence of acute infarct, hemorrhage, mass or edema. No findings to suggest significant anoxic injury. Kit Power MD Renal Ultrasound 08/25/16 0000 Signed Impressions: Service Date/Time: Wednesday, August 24, 2016 21:53 - CONCLUSION: 1. There is no hydronephrosis. Both kidneys demonstrate mild increased echotexture of the parenchyma suggesting medical renal disease. 2. Trace perihepatic free fluid and bilateral pleural effusions. Lex Malik MD Chest CT 08/25/16 0000 Signed Impressions: Service Date/Time: Thursday, August 25, 2016 21:20 - CONCLUSION: 1. Bilateral pneumonia and aspiration would be in the differential. There is dependent consolidation/atelectasis and small effusions of the bases as well. 2. Upper limits of normal to mildly enlarged mediastinal lymph nodes, most likely reactive. 3. Coronary artery calcification. 4. Right rib fractures, including acute fractures laterally of the third, fourth and fifth. There are old, healed fractures anteriorly of the right second and third ribs.. Lex Lopez MD Abdomen/Pelvis CT 08/25/16 0000 Signed Impressions: Service Date/Time: Thursday, August 25, 2016 20:20 - CONCLUSION: 1. Ventral hernia containing small bowel and with associated small bowel obstruction. The defect is broad; I believe the obstruction is probably related to scarring and/or adhesions within the hernia sac. I don't see a mass. 2. Distended stomach despite NG tube present. 3. Severe aortoiliac atherosclerosis. No aneurysm. Lex Lopez MD Objective Remarks GENERAL: Patient is 71 yo lying in bed in NAD on trach collar SKIN: Warm and dry. HEAD: Normocephalic. EYES: No scleral icterus. No injection or drainage. NECK: trachea midline. No JVD. Trach in place CARDIOVASCULAR: Regular rate and rhythm without murmurs, gallops, or rubs. RESPIRATORY: Breath sounds equal bilaterally. No accessory muscle use. GASTROINTESTINAL: Abdomen soft, non-tender, nondistended. MUSCULOSKELETAL: No cyanosis, +1 edema. Neuro: Awake. A/P Assessment and Plan Neuro/Psych: Status post CPR 15 minutes Depression NOS Neurochecks per ICU protocol Ativan 1mg Q4 PRN agitation- will hopefully wean off of this zyprexa 5mg po q8hr for agitation. EEG 08/25 revealed mild to moderate encephalopathy. No epileptiform activity. MRI brain 08/27 revealed no acute findings. Cardiovascular: Cardiac arrest status post CPR Elevated troponin History dyslipidemia History of hypertension PVD Systemic shock likely secondary to sepsis/aspiration/small bowel obstruction Possible femoral pseudoaneurysm Monitor HR and BP keep MAP>65mmHg Cardizem 60mg QID, Hydralazine 50mg Q8 Cardiac arrest status post CPR. s/p aggressive fluid resuscitation. 5 units PRBCs transfused to date minimal troponin elevation following cardiac arrest noted Echo 2D revealed EF 35-40%. Moderate LVH. Mitral valve calcified. Mild TR. Pulmonary: Acute respiratory failure secondary to aspiration pneumonia- Reintubated 09/06 s/p Trach on 09/08 End-stage COPD. Oxygen dependent FEV1 28%, FVC 1.6. S/P Aspiration 09/15 s/p reintubation and bronch 09/06 mucous plugs in left main stem bronchus Continue with vent support keep sat >92% Bronchodilators, Pulmicort twice a day CPAP /TP trials as anneliese. prednisone taper. VQ scan low probability 08/29 ICU vent bundle, pulm toilet, trach care F/U CXR GI: Small bowel obstruction - resolved Upper GI bleed plus esophageal rule out aorto esophageal fistula History of Ashley esophagitis History of colonic polyps History of ventral hernia status post repair last by Dr. Roberts Diarrhea Repeat KUB abdomen showed improvements in gaseous distention of bowel. on Reglan 5mg IV Q8, Senna, Lactulose, Colace. increase tube feeds to goal. I think from a GI standpoint, the plan should remain to use nasogastric access at this time. continue frequent speech eval for swallowing. If he fails once off the vent with better nutrition, will need permanent feeding tube by IR or surgery. I do not think this is a barrier to placement. s/p EGD 09/09: Deformed pylorus/antrum, nodular mucosa-multiple biopsies taken esophagitis distal esophagus-biopsy unable to place peg endoscopically due to hiatal hernia. CT abdomen/pelvis revealed possible small bowel obstruction at level of ventral hernia. Severe aortoiliac disease. Dr. Roberts/general surgery evaluated. Very poor surgical candidate this time. EGD 08/25 revealed esophageal nipple. Clots noted within the gastric contents without active bleeding. Protonix for GI prophylaxis Hold Bowel regimen. We'll hold off on playing rectal tube in until we have held all the bowel regimen and we have persistent diarrhea. Renal/: Acute kidney injury- resolved Hypernatremia History of bladder outlet obstruction Monitor renal function, I/O's, electrolytes replacement per protocol. Replete K , Potassium 3.3 Free water flushes 300ml Q4 monitor sodium level. No hydronephrosis on CT abdomen/pelvis ID: UTI Sepsis Fungemia Continue abx per ID ( Micafungin) till September 23.monitor for signs of infections ( Fever, WBC) s/p course of levaquin 09/10 - 09/16 Pertinent cultures 09/08 Bronch: S. Maltophilia, 09/06 Bronch- S. Maltophilia, 09/03 - blood culture - no growth 09/02 - blood culture - no growth 08/27 - blood from central line -Ashley Glabrata 08/27 -arterial line blood - pending 08/26 - sputum -Serratia 08/25 - blood cultures 2 -Ashley 08/25 - urine -no growth 08/22 - blood cultures 2 - no growth 08/21 - urine - no growth 08/20 - blood cultures 2 - 1 out of 4 staph epi Endocrine: Chronic prednisone use secondary to COPD SSI for glycemic control as needed. Heme: s/p Acute blood loss anemia History of prostate cancer Status post 4 units PRBCs ands 2 units FFP on 08/24. Given one unit PRBCs 08/26 Monitor CBC H/H stable. MSK: PT/OT evaluate and treat Access - peripheral IV's, PICC line placed 09/11 Prophylaxis - GI -Protonix - DVT - SCD/ heparin 5000 u Sq Q12- cleared by GI. H/H stable. cycle manager bridgette for placement. I do not have a medical indication to keep him in an acute care setting. Papi Keating MD Sep 19, 2016 11:59
[2016-09-19] MEDS: MICAFUNGIN INJ 100 MG in SODIUM CHLORIDE 0.9% INJ 100 ML IV SCH (12:35)
[2016-09-19] MEDS ORDERED: HYDROmorphone HCL PF 1 MG/ML VIAL IV ONE (22:30)
[2016-09-20] VITALS (16 sets, daily range): BP systolic 118–135; BP diastolic 75–89; PULSE 87–126; RESP 20–26; TEMP 97.8–98.9; O2SAT 96–100
[2016-09-20] MEDS: LORazepam 2 MG/ML VIAL IV PUSH PRN ×3 (00:59→21:23)
[2016-09-20] MEDS: OLANZapine ODT 5 MG TAB PO SCH ×3 (01:00→17:38)
[2016-09-20] MEDS: FREE WATER G-TUBE SCH ×5 (04:00→17:38)
[2016-09-20] MEDS: hydrALAZINE HCL 50 MG TAB PO SCH ×3 (05:34→21:25)
[2016-09-20] MEDS: INSULIN NovoLIN REGULAR SUPPLEMENTAL SCALE SQ SCH ×4 (05:37→17:38)
[2016-09-20] MEDS: NYSTATIN 100,000 U/GM PWD 15 GM BTL TOPICAL SCH ×3 (05:37→21:26)
[2016-09-20 06:55] LABS: BICARBONATE 29.8 MEQ/L (21.0-32.0); POTASSIUM 3.8 MEQ/L (3.5-5.1)
[2016-09-20] MEDS: CHLORHEXIDINE GLUCONATE 0.12% 30 ML CUP MT SCH ×2 (08:00→20:00)
[2016-09-20] MEDS: METOCLOPRAMIDE HCL 10 MG/2 ML VIAL IV PUSH SCH ×2 (08:00→16:45)
[2016-09-20] MEDS: LACTULOSE SYRUP 20 GM/30 ML CUP PO SCH (09:00)
[2016-09-20] MEDS: SENNOSIDES SYRUP 8.8 MG/5 ML CUP PO SCH (09:00)
[2016-09-20] MEDS: DOCUSATE SODIUM 100 MG/10 ML UDC PO SCH ×2 (09:00→21:00)
[2016-09-20] MEDS: SODIUM CHLORIDE 0.9% FLUSH 10 ML FLUSH IV FLUSH SCH (09:00)
[2016-09-20] MEDS: MULTIVITAMINS/MINERALS THERAPEUTIC TAB PO SCH (09:15)
[2016-09-20] MEDS: PANTOPRAZOLE SODIUM 40 MG VIAL IV PUSH SCH ×2 (09:15→21:23)
[2016-09-20] MEDS: DILTIAZEM HCL 60 MG TAB PO SCH ×4 (09:15→21:25)
[2016-09-20] MEDS: predniSONE 5 MG/5 ML CUP PO SCH (09:18)
[2016-09-20] MEDS: SODIUM CHLORIDE 0.9% FLUSH 5 ML FLUSH IVF SCH ×2 (09:19→09:24)
[2016-09-20] MEDS: COLLAGENASE OINT 30 GM TUBE TOP SCH (09:21)
[2016-09-20] MEDS: RESP: BUDESONIDE 0.5 MG/2 ML NEB NEB SCH ×2 (09:31→19:35)
[2016-09-20] MEDS: HEPARIN SODIUM - SQ 10,000 UNITS/ML VIAL SQ SCH ×2 (10:03→21:00)
[2016-09-20] MEDS: MICAFUNGIN INJ 100 MG in SODIUM CHLORIDE 0.9% INJ 100 ML IV SCH (12:03)
--- NOTE | 2016-09-20 12:36 | HHI.CCPN ---
Subjective Remarks/Hospital Course 08/24: 71 Year-old male with a medical history significant for COPD on home oxygen who was recently admitted with suspected sepsis/H And was initiated on IV antibiotics and steroids. He had recently been evaluated by GI and underwent EGD on 08/10/2016 and was found to have moderate esophagitis, mild gastritis with pathology subsequently showing Ashley esophagitis as well as colonoscopy on 08/11/2016 with polypectomy and ablation of polyp in ascending colon with hot snare. Patient has been dealing with constipation since his admission. Today when he was trying to have a bowel movement he suddenly became less responsive and then had a large emesis which resulted in aspiration and hemodynamic collapse. Patient initially had large volume emesis with dark maroon blood. CODE BLUE cardiac arrest code was activated. On my arrival patient was in bed CPR had been initiated. Significant gastric contents was still being suctioned out of his oral cavity. ACLS protocol was continued. Patient was intubated following vigorous suctioning of gastric contents from oral cavity as well as with placement of NG tube which is hooked up to suction and about 1.5 L of gastric contents being suctioned out which appeared to be dark maroon in color. Patient initially had a pulse when CODE BLUE was called and subsequently went in PEA arrest followed by asystole during ACLS and then V. fib for which he was defibrillated with 200 J 1, CPR/ACLS protocol was continued and patient eventually had return of spontaneous circulation after about 15 minutes of CPR/ACLS. Patient was transferred to [facility] and placed on mechanical ventilation. I emergently placed left femoral central line for central vascular access and he was started on Levophed for pressor support. 2 units of O- 1 crossmatch blood were ordered and transfused stat. He also received 1 L of normal saline bolus following return of spontaneous circulation. Stat labs were ordered. His hemoglobin on ABG done post resuscitation was 5.6. I did order Protonix 80 mg IV stat followed by 8 mg per hour IV infusion. Patient remained encephalopathic though was minimally responsive following transfer to the ICU. GI consult was requested and I spoke with Dr. Zamarripa at bedside on his arrival. History was obtained by reviewing records, discussion with family/ GI as well as nursing staff. According to patient's daughter he has not been doing well for the last few months in terms of his breathing and has been using his home oxygen more often. He gets extremely short of breath even with the least exertion. 08/25: Remains encephalopathic/ sedated, [facility]. Transiently off levophed last night however back to 11 mcg/min currently. Hgb up to 9.4 following 4 units PRBCs transfused last night. 08/26: Tmax 99. Some unresponsive on the ventilator. CT abdomen/pelvis less than revealed small bowel obstruction at site of ventral hernia. No further bleeding noted. Gastric output approximately 700 cc. No bowel movement. 08/27: Tmax 99.7. Currently afebrile. Positive BM overnight approximately 1 L according to RN. No blood noted. 100 cc from gastric tube overnight. Hemoglobin corrected a properly. Likely dilutional. Noted fungemia currently issue. Opens eyes to voice. 08/28: Tmax 99.1. No BMs overnight. Minimal gastric tube output. Hemoglobin stable 9.5. Opens eyes to voice. Not following commands. Appears with singultus this morning. 08/29: 20 beat run of wide complex tachycardia overnight. Noted potassium 3.2. This is been replaced. We'll recheck this afternoon. Circuit exchange yesterday. Patient tolerating pressure control ventilation much better than PRVC/AC ventilation is low probably VQ scan. Less FiO2 requirements. No BM past 24 hour. 08/30: Unable to wean ventilator. 08/31: Patient was extubated on 08/30 however became tachypneic with use of accessory muscles of respiration and required reintubation around 6:30 PM last night and was placed back on mechanical ventilation. Currently sedated, orally intubated on mechanical ventilation. Post intubation chest x-ray suggested fluid overload for which she was given Lasix 40 mg IV with good response having made about 2.5 L urine the last 7 hours. 09/01: Remains sedated, orally intubated on mechanical ventilation. Diuresing well with Lasix. Awaiting EGD in a.m. 09/02: Little progress. CXR clearing nicely. Continue diuresis, tolerate hypernatremia. 09/03: Good diuretic response. CRISTHIAN today with no valvar pathology. 09/04: Too weak to tolerate extubation. Will require trach. 09/05: Sedated, arousable, following commands. Tolerated C Pap trial for 9 hours yesterday with pressure support +10. Tolerating tube feeds. 09/06: Extubated yesterday. Chest x-ray reveals likely mucous plugging in left lung garcia. Currently on nonrebreather mask. Planning of insomnia and thick secretions that he is unable to cough up. 09/07 Patient s/p reintubation and bronch 09/06 mucous plugs in left main stem bronchus sedated with Diprivan and Fentanyl. Afebrile. For possible trach tomorrow. 09/08 No acute events overnight. Sedated with Diprivan and Fentanyl. Afebrile. For trach today. 09/09 No acute events overnight. Sedated and intubated. s/p trach yesterday for PEG tube placement today. 09/10 Patient remains sedated and on ventilator via trach. s/p EGD yesterday PEG tube couldn't be placed endoscopically due to hernia. Surgery consulted for J-tube placement. Afebrile. 09/11 No acute events overnight. Sedated with Diprivan, Fentanyl and intubated. Afebrile. Tolerating tube feeds. 09/12 Patient is off Diprivan remains on Fentanyl infusion tolerated CPAP trials for several hrs and TP's x 2 hrs yesterday now on TP with 50% FIO2. Afebrile. 09/13 Patient tolerated TP's all day yesterday placed on PRVC/AC mode overnight. TF held for high residuals. Afebrile. On Fentanyl infusion however he is awake, restless. 09/14 No acute events overnight. Tolerated TP's all day yesterday placed back on ventilator overnight. On Fentanyl infusion. Afebrile. Repeat KUB this morning showed ileus. 09/15 Patient is off fentanyl infusion and is on Precedex drip pulled his NGT overnight. KUB this morning showed improvements in gaseous distention of bowel. 09/16 Yesterday afternoon an NG tube was placed patient was noted to have tube feeds with possible aspiration.NGT placed this am, KUB pending. 09/17: no acute events overnight. tolerated cpap. back on rate overnight. this morning on trach collar. 09/18: prior history of constipation, now with diarrhea. otherwise, awaiting placement. 09/19: diarrhea improving. still awaiting placement. Subjective 09/20: still doing well. on trach collar this morning on my evaluation. insurance has not yet approved placement. Objective Vital Signs Date Time Temp Pulse Resp B/P Pulse Ox O2 Delivery O2 Flow Rate FiO2 09/20/16 06:00 104 09/20/16 04:08 98 40 09/20/16 04:00 98.8 22 123/79 09/18/16 08:44 Trach Collar 6.00 Intake and Output 09/19/16 09/19/16 09/20/16 08:00 16:00 00:00 Intake Total 440 ml 1409 ml Output Total 525 ml 600 ml Balance -85 ml 809 ml Result Diagram: 09/17/16 0610 09/20/16 0530 Imaging Last Impressions Abdomen X-Ray 09/15/16 0600 Signed Impressions: Service Date/Time: Thursday, September 15, 2016 03:16 - CONCLUSION: 1. Improved gaseous distention of bowel since September 14. Mild distention persists. 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 There is concentric mural thrombus. This aneurysm is not amenable to thrombin injection. Polo Moore Jr., MD Lung Scan- Nuclear Medicine 08/29/16 0000 Signed Impressions: Service Date/Time: Monday, August 29, 2016 10:20 - CONCLUSION: Low probability for pulmonary embolus. Lex Lopez MD Brain MRI 08/27/16 0000 Signed Impressions: Service Date/Time: August 15:13 - CONCLUSION: No evidence of acute infarct, hemorrhage, mass or edema. No findings to suggest significant anoxic injury. Kit Power MD Renal Ultrasound 08/25/16 Signed Impressions: Service Date/Time: Wednesday, August 24, 2016 21:53 - CONCLUSION: 1. There is no hydronephrosis. Both kidneys demonstrate mild increased echotexture of the parenchyma suggesting medical renal disease. 2. Trace perihepatic free fluid and bilateral pleural effusions. Lex Malik MD Chest CT 08/25/16 0000 Signed Impressions: Service Date/Time: Thursday, August 25, 2016 21:20 - CONCLUSION: 1. Bilateral pneumonia and aspiration would be in the differential. There is dependent consolidation/atelectasis and small effusions of the bases as well. 2. Upper limits of normal to mildly enlarged mediastinal lymph nodes, most likely reactive. 3. Coronary artery calcification. 4. Right rib fractures, including acute fractures laterally of the third, fourth and fifth. There are old, healed fractures anteriorly of the right second and third ribs.. Lex Lopez MD Abdomen/Pelvis CT 08/25/16 0000 Signed Impressions: Service Date/Time: Thursday, August 25, 2016 20:20 - CONCLUSION: 1. Ventral hernia containing small bowel and with associated small bowel obstruction. The defect is broad; I believe the obstruction is probably related to scarring and/or adhesions within the hernia sac. I don't see a mass. 2. Distended stomach despite NG tube present. 3. Severe aortoiliac atherosclerosis. No aneurysm. Lex Lopez MD Objective Remarks GENERAL: Patient is 71 yo lying in bed in NAD on trach collar SKIN: Warm and dry. HEAD: Normocephalic. EYES: No scleral icterus. No injection or drainage. NECK: trachea midline. No JVD. Trach in place CARDIOVASCULAR: Regular rate and rhythm without murmurs, gallops, or rubs. RESPIRATORY: Breath sounds equal bilaterally. No accessory muscle use. GASTROINTESTINAL: Abdomen soft, non-tender, nondistended. MUSCULOSKELETAL: No cyanosis, +1 edema. Neuro: Awake. A/P Assessment and Plan Neuro/Psych: Status post CPR 15 minutes Depression NOS Neurochecks per ICU protocol Ativan 1mg Q4 PRN agitation- will hopefully wean off of this zyprexa 5mg po q8hr for agitation. EEG 08/25 revealed mild to moderate encephalopathy. No epileptiform activity. MRI brain 08/27 revealed no acute findings. Cardiovascular: Cardiac arrest status post CPR Elevated troponin History dyslipidemia History of hypertension PVD Systemic shock likely secondary to sepsis/aspiration/small bowel obstruction Possible femoral pseudoaneurysm Monitor HR and BP keep MAP>65mmHg Cardizem 60mg QID, Hydralazine 50mg Q8 Cardiac arrest status post CPR. s/p aggressive fluid resuscitation. 5 units PRBCs transfused to date minimal troponin elevation following cardiac arrest noted Echo 2D revealed EF 35-40%. Moderate LVH. Mitral valve calcified. Mild TR. Pulmonary: Acute respiratory failure secondary to aspiration pneumonia- Reintubated 09/06 s/p Trach on 09/08 End-stage COPD. Oxygen dependent FEV1 28%, FVC 1.6. S/P Aspiration 09/15 s/p reintubation and bronch 09/06 mucous plugs in left main stem bronchus Continue with vent support keep sat >92% Bronchodilators, Pulmicort twice a day CPAP /TP trials as anneliese. prednisone taper. VQ scan low probability 08/29 ICU vent bundle, pulm toilet, trach care F/U CXR GI: Small bowel obstruction - resolved Upper GI bleed plus esophageal rule out aorto esophageal fistula History of Ashley esophagitis History of colonic polyps History of ventral hernia status post repair last by Dr. Roberts Diarrhea Repeat KUB abdomen showed improvements in gaseous distention of bowel. on Reglan 5mg IV Q8, Senna, Lactulose, Colace. increase tube feeds to goal. I think from a GI standpoint, the plan should remain to use nasogastric access at this time. continue frequent speech eval for swallowing. If he fails once off the vent with better nutrition, will need permanent feeding tube by IR or surgery. I do not think this is a barrier to placement. s/p EGD 09/09: Deformed pylorus/antrum, nodular mucosa-multiple biopsies taken esophagitis distal esophagus-biopsy unable to place peg endoscopically due to hiatal hernia. CT abdomen/pelvis revealed possible small bowel obstruction at level of ventral hernia. Severe aortoiliac disease. Dr. Roberts/general surgery evaluated. Very poor surgical candidate this time. EGD 08/25 revealed esophageal nipple. Clots noted within the gastric contents without active bleeding. Protonix for GI prophylaxis Hold Bowel regimen. We'll hold off on playing rectal tube in until we have held all the bowel regimen and we have persistent diarrhea. Renal/: Acute kidney injury- resolved Hypernatremia History of bladder outlet obstruction Monitor renal function, I/O's, electrolytes replacement per protocol. Replete K , Potassium 3.3 Free water flushes 300ml Q4 monitor sodium level. No hydronephrosis on CT abdomen/pelvis ID: UTI Sepsis Fungemia Continue abx per ID ( Micafungin) till September 23.monitor for signs of infections ( Fever, WBC) s/p course of levaquin 09/10 - 09/16 Pertinent cultures 09/08 Bronch: S. Maltophilia, 09/06 Bronch- S. Maltophilia, 09/03 - blood culture - no growth 09/02 - blood culture - no growth 08/27 - blood from central line -Ashley Glabrata 08/27 -arterial line blood - pending 08/26 - sputum -Serratia 08/25 - blood cultures 2 -Ashley 08/25 - urine -no growth 08/22 - blood cultures 2 - no growth 08/21 - urine - no growth 08/20 - blood cultures 2 - 1 out of 4 staph epi Endocrine: Chronic prednisone use secondary to COPD SSI for glycemic control as needed. Heme: s/p Acute blood loss anemia History of prostate cancer Status post 4 units PRBCs ands 2 units FFP on 08/24. Given one unit PRBCs 08/26 Monitor CBC H/H stable. MSK: PT/OT evaluate and treat Access - peripheral IV's, PICC line placed 09/11 Prophylaxis - GI -Protonix - DVT - SCD/ heparin 5000 u Sq Q12- cleared by GI. H/H stable. aquatic facility manager bridgette for placement. I do not have a medical indication to keep him in an acute care setting. Papi Keating MD Sep 20, 2016 12:36
[2016-09-20] MEDS: RESP: ALBUTEROL 2.5 MG/IPRATROPIUM 0.5 MG NEB (PRN) INH (19:35)
[2016-09-20] MEDS: HYDROmorphone HCL PF 1 MG/ML VIAL IV PRN (21:25)
[2016-09-21] VITALS (16 sets, daily range): BP systolic 128–148; BP diastolic 70–86; PULSE 83–128; RESP 19–30; TEMP 98.3–99; O2SAT 91–100
[2016-09-21] MEDS: INSULIN NovoLIN REGULAR SUPPLEMENTAL SCALE SQ SCH ×4 (06:00→18:00)
[2016-09-21] MEDS: FREE WATER G-TUBE SCH ×4 (06:00→18:00)
[2016-09-21] MEDS: hydrALAZINE HCL 50 MG TAB PO SCH ×3 (06:36→20:45)
[2016-09-21] MEDS: OLANZapine ODT 5 MG TAB PO SCH ×3 (06:37→18:30)
[2016-09-21] MEDS: NYSTATIN 100,000 U/GM PWD 15 GM BTL TOPICAL SCH ×3 (06:38→20:45)
[2016-09-21] MEDS: RESP: BUDESONIDE 0.5 MG/2 ML NEB NEB SCH ×2 (07:41→20:07)
[2016-09-21] MEDS: CHLORHEXIDINE GLUCONATE 0.12% 30 ML CUP MT SCH ×2 (08:00→20:00)
[2016-09-21] MEDS: HYDROmorphone HCL PF 1 MG/ML VIAL IV PRN ×4 (08:02→21:15)
[2016-09-21] MEDS: predniSONE 5 MG/5 ML CUP PO SCH (08:02)
[2016-09-21] MEDS: PANTOPRAZOLE SODIUM 40 MG VIAL IV PUSH SCH ×2 (08:03→19:50)
[2016-09-21] MEDS: SENNOSIDES SYRUP 8.8 MG/5 ML CUP PO SCH (08:03)
[2016-09-21] MEDS: DILTIAZEM HCL 60 MG TAB PO SCH ×4 (08:03→19:52)
[2016-09-21] MEDS: MULTIVITAMINS/MINERALS THERAPEUTIC TAB PO SCH (08:03)
[2016-09-21] MEDS: METOCLOPRAMIDE HCL 10 MG/2 ML VIAL IV PUSH SCH ×3 (08:03→16:00)
[2016-09-21] MEDS: COLLAGENASE OINT 30 GM TUBE TOP SCH (08:04)
[2016-09-21] MEDS: HEPARIN SODIUM - SQ 10,000 UNITS/ML VIAL SQ SCH ×2 (08:04→19:52)
[2016-09-21] MEDS: DOCUSATE SODIUM 100 MG/10 ML UDC PO SCH ×2 (09:00→19:49)
[2016-09-21] MEDS: LACTULOSE SYRUP 20 GM/30 ML CUP PO SCH (09:00)
[2016-09-21] MEDS: SODIUM CHLORIDE 0.9% FLUSH 10 ML FLUSH IV FLUSH SCH (09:00)
[2016-09-21] MEDS: MICAFUNGIN INJ 100 MG in SODIUM CHLORIDE 0.9% INJ 100 ML IV SCH (12:23)
--- NOTE | 2016-09-21 13:19 | HHI.IDPN ---
Subjective Subjective Remarks Notes reviewed Temps ok Tolerating T-piece Being referred to [facility] Levaquin - finished 09/16 IV Micafungin (for fungal line infection) - to finish 4/5 Lines PICC - 09/11 Past Medical History Reviewed Allergies: Coded Allergies: *MDRO Multi-Drug Resistant Organism (Verified Adverse Reaction, Unknown, ) MRSA (abdominal wound) 2015 per 04/10/2015 H&P MRSA PCR Screen #1 NEGATIVE - 08/21/16 Objective . Vital Signs Date Time Temp Pulse Resp B/P Pulse Ox O2 Delivery O2 Flow Rate FiO2 09/21/16 12:00 98.6 110 20 148/79 97 09/21/16 12:00 115 09/21/16 12:00 40 09/21/16 10:00 108 09/21/16 08:47 96 T-piece 6.00 50 09/21/16 08:00 40 09/21/16 08:00 98.5 103 19 139/79 97 09/21/16 08:00 108 09/21/16 07:41 91 40 09/21/16 06:00 103 09/21/16 04:34 100 40 09/21/16 04:00 99 09/21/16 04:00 98.8 99 21 128/77 98 09/21/16 04:00 40 09/21/16 02:00 83 09/21/16 00:00 94 40 09/21/16 00:00 40 09/21/16 00:00 109 09/21/16 00:00 98.3 109 30 144/70 95 09/20/16 22:00 104 09/20/16 20:00 95 09/20/16 20:00 98.5 95 20 135/75 100 09/20/16 20:00 40 09/20/16 19:35 100 40 09/20/16 18:00 98.3 107 24 118/77 97 09/20/16 18:00 107 09/20/16 16:24 100 55 09/20/16 16:00 87 09/20/16 16:00 55 09/20/16 14:00 89 09/20/16 09/20/16 09/21/16 15:00 23:00 07:00 Intake Total 849 ml 247 ml 532 ml Output Total 850 ml 650 ml 700 ml Balance -1 ml -403 ml -168 ml IV Total 135 ml Tube Feeding 714 ml 247 ml 532 ml Output Urine Total 850 ml 650 ml 700 ml # Bowel Movements 1 . Laboratory Tests Test 09/20/16 05:30 Sodium Level 139 MEQ/L Potassium Level 3.8 MEQ/L Chloride Level 104 MEQ/L Carbon Dioxide Level 29.8 MEQ/L Anion Gap 5 MEQ/L Blood Urea Nitrogen 18 MG/DL Creatinine 0.46 MG/DL Estimat Glomerular Filtration 181 ML/MIN Rate Random Glucose 127 MG/DL Calcium Level 7.5 MG/DL Imaging Chest X-Ray 09/16/16 0000 Signed Impressions: Service Date/Time: Friday, September 16, 2016 04:58 - CONCLUSION: 1. Tracheostomy and right PICC line present. Bilateral airspace disease, right greater than left similar to September 15. Eleazar Jimenez MD Abdomen X-Ray 09/16/16 0000 Signed Impressions: Service Date/Time: Friday, September 16, 2016 10:54 - CONCLUSION: 1. Nasogastric tube looped in the distal esophagus. Gareth Escalante MD Abdomen X-Ray 09/15/16 0600 Signed Impressions: Service Date/Time: Thursday, September 15, 2016 03:16 - CONCLUSION: 1. Improved gaseous distention of bowel since September 14. Mild distention persists. Eleazar Jimenez MD Chest X-Ray 09/15/16 0000 Signed Impressions: Service Date/Time: Thursday, September 15, 2016 13:39 - CONCLUSION: Decrease in medial left lung base atelectasis. No change in hazy right lung base opacity. Donald Valerio MD Abdomen X-Ray 09/14/16 0600 Signed Impressions: Service Date/Time: Wednesday, September 14, 2016 03:56 - CONCLUSION: Gaseous distention of multiple bowel loops, likely ileus. Eduardo Mcconnell MD Chest X-Ray 09/08/16 1325 Signed Impressions: Service Date/Time: Thursday, September 08, 2016 13:37 - CONCLUSION: 1. Interval improvement of the interstitial infiltrates with minimal residual right basilar infiltrate noted. 2. Tracheostomy tube in good position approximately 5 cm above the michele. Lui Kim MD Chest X-Ray 09/06/16 0000 Signed Impressions: Service Date/Time: Tuesday, September 06, 2016 13:49 - CONCLUSION: 1. Interval intubation and placement of nasogastric tube. 2. Volume loss again noted left hemithorax with mediastinal shift. There is coarse infiltrate remaining in the left lung. Ian Horton MD Chest X-Ray 09/06/16 0000 Signed Impressions: Service Date/Time: Tuesday, September 06, 2016 08:50 - CONCLUSION: 1. Increasing density throughout the left hemithorax with volume loss suggesting mucus plugging. Eduardo Mcconnell MD Chest X-Ray 09/05/16 0500 Signed Impressions: Service Date/Time: Monday, September 05, 2016 03:49 - CONCLUSION: 1. Basilar airspace disease similar to prior exam. Support apparatus unchanged. Eleazar Jimenez MD Chest X-Ray 09/05/16 0500 Signed Impressions: Service Date/Time: Monday, September 05, 2016 03:49 - CONCLUSION: 1. Basilar airspace disease similar to prior exam. Support apparatus unchanged. Eleazar Jimenez MD Chest X-Ray 09/01/16 0600 Signed Impressions: Service Date/Time: Thursday, September 01, 2016 03:19 - CONCLUSION: No significant interval change in bilateral pulmonary parenchymal opacity and small bilateral pleural effusions. 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 There is concentric mural thrombus. This aneurysm is not amenable to thrombin injection. Polo Moore Jr., MD Chest X-Ray 08/27/16 0600 Signed Impressions: Service Date/Time: August 02:27 - CONCLUSION: 1. Patchy bilateral airspace disease with improving aeration/decreasing effusions in the bases bilaterally. 2. Stable position of life support tubes. Con Valdes MD Chest X-Ray 08/26/16 0754 Signed Impressions: Service Date/Time: Friday, August 26, 2016 08:14 - CONCLUSION: Left IJ central line distal tip in the SVC. No pneumothorax is visualized. There is a stable appearance the lungs with bilateral airspace consolidation. Lex Malik MD Chest X-Ray 08/26/16 0600 Signed Impressions: Service Date/Time: Friday, August 26, 2016 04:01 - CONCLUSION: 1. Worsening bibasilar effusions/atelectasis with diffuse interstitial edema, all characteristic of CHF. 2. Endotracheal tube remains appropriately positioned above the michele Con Valdes MD Chest X-Ray 08/26/16 0754 Signed Impressions: Service Date/Time: Friday, August 26, 2016 08:14 - CONCLUSION: Left IJ central line distal tip in the SVC. No pneumothorax is visualized. There is a stable appearance the lungs with bilateral airspace consolidation. Lex Malik MD Renal Ultrasound 08/25/16 0000 Signed Impressions: Service Date/Time: Wednesday, August 24, 2016 21:53 - CONCLUSION: 1. There is no hydronephrosis. Both kidneys demonstrate mild increased echotexture of the parenchyma suggesting medical renal disease. 2. Trace perihepatic free fluid and bilateral pleural effusions. Lex Malik MD Chest CT 08/25/16 0000 Signed Impressions: Service Date/Time: Thursday, August 25, 2016 21:20 - CONCLUSION: 1. Bilateral pneumonia and aspiration would be in the differential. There is dependent consolidation/atelectasis and small effusions of the bases as well. 2. Upper limits of normal to mildly enlarged mediastinal lymph nodes, most likely reactive. 3. Coronary artery calcification. 4. Right rib fractures, including acute fractures laterally of the third, fourth and fifth. There are old, healed fractures anteriorly of the right second and third ribs.. Lex Lopez MD Abdomen/Pelvis CT 08/25/16 0000 Signed Impressions: Service Date/Time: Thursday, August 25, 2016 20:20 - CONCLUSION: 1. Ventral hernia containing small bowel and with associated small bowel obstruction. The defect is broad; I believe the obstruction is probably related to scarring and/or adhesions within the hernia sac. I don't see a mass. 2. Distended stomach despite NG tube present. 3. Severe aortoiliac atherosclerosis. No aneurysm. Lex Lopez MD Abdomen X-Ray 08/24/16 0000 Signed Impressions: Service Date/Time: Wednesday, August 24, 2016 17:19 - CONCLUSION: 1. Small bowel dilatation which reflect ileus or obstruction. Followup examination is recommended if clinically indicated. Gareth Escalante MD Physical Exam GENERAL: Awake, NAD. On T-piece SKIN: Warm and dry. No generalized rash HEENT: No scleral icterus. Dry oral mucosa NECK: Trach site ok. Supple. CARDIOVASCULAR: Regular rate and rhythm without murmurs, gallops, or rubs. RESPIRATORY: Decreased breath sounds throughout both lung garcia. GASTROINTESTINAL: Abdomen soft, not tender, less distended. Has a large midline hernia reducible. Has midline scar. No redness or tenderness noted in R groin MUSCULOSKELETAL: Extremities without clubbing, cyanosis. Edema better LINE: PICC no evidence of infection. Assessment & Plan Remarks IMPRESSION Sepsis present on admission and then sepsis again. Better Central line associated blood stream infection (CLABSI) related fungemia ( likely groin line) now discontinued. Arterial line discontinued as well. 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 - S/P Rx Now with Sten mal in sputum, S/P Rx Recurrent respiratory failure, due to mucus plugging - S/P bronch Diarrhea ? Cdiff vs antibiotic associated. Status post cardiorespiratory arrest, likely aspirated Findings SBO within the hernia on CT A/P, clinically better Acute respiratory failure, extubated 09/05 - reintubated 09/06 GI bleed, stable Leukocytosis, up again, reactive due to resp decompensation COPD, oxygen dependent Previous GI bleed with workup showing gastritis, Ashley esophagitis, and polyps Large incisional ventral hernia Bladder outlet obstruction, currently has a Hammond Renal insufficiency RECOMMENDATION Continue Micafungin IV (C.glabrata fungemia) - plan at least 4 weeks from date of last (+) BC which is 08/27 - anticipated end date is September 23 Monitor progress Weaning per CCM as tolerated Being referred to LT[facility] D/W Nuha Nguyen MD Sep 21, 2016 13:19
--- NOTE | 2016-09-21 15:07 | HHI.CCPN ---
Subjective Remarks/Hospital Course 08/24: 71 Year-old male with a medical history significant for COPD on home oxygen who was recently admitted with suspected sepsis/H And was initiated on IV antibiotics and steroids. He had recently been evaluated by GI and underwent EGD on 08/10/2016 and was found to have moderate esophagitis, mild gastritis with pathology subsequently showing Ashley esophagitis as well as colonoscopy on 08/11/2016 with polypectomy and ablation of polyp in ascending colon with hot snare. Patient has been dealing with constipation since his admission. Today when he was trying to have a bowel movement he suddenly became less responsive and then had a large emesis which resulted in aspiration and hemodynamic collapse. Patient initially had large volume emesis with dark maroon blood. CODE BLUE cardiac arrest code was activated. On my arrival patient was in bed CPR had been initiated. Significant gastric contents was still being suctioned out of his oral cavity. ACLS protocol was continued. Patient was intubated following vigorous suctioning of gastric contents from oral cavity as well as with placement of NG tube which is hooked up to suction and about 1.5 L of gastric contents being suctioned out which appeared to be dark maroon in color. Patient initially had a pulse when CODE BLUE was called and subsequently went in PEA arrest followed by asystole during ACLS and then V. fib for which he was defibrillated with 200 J 1, CPR/ACLS protocol was continued and patient eventually had return of spontaneous circulation after about 15 minutes of CPR/ACLS. Patient was transferred to [facility] and placed on mechanical ventilation. I emergently placed left femoral central line for central vascular access and he was started on Levophed for pressor support. 2 units of O- 1 crossmatch blood were ordered and transfused stat. He also received 1 L of normal saline bolus following return of spontaneous circulation. Stat labs were ordered. His hemoglobin on ABG done post resuscitation was 5.6. I did order Protonix 80 mg IV stat followed by 8 mg per hour IV infusion. Patient remained encephalopathic though was minimally responsive following transfer to the ICU. GI consult was requested and I spoke with Dr. Zamarripa at bedside on his arrival. History was obtained by reviewing records, discussion with family/ GI as well as nursing staff. According to patient's daughter he has not been doing well for the last few months in terms of his breathing and has been using his home oxygen more often. He gets extremely short of breath even with the least exertion. 08/25: Remains encephalopathic/ sedated, [facility]. Transiently off levophed last night however back to 11 mcg/min currently. Hgb up to 9.4 following 4 units PRBCs transfused last night. 08/26: Tmax 99. Some unresponsive on the ventilator. CT abdomen/pelvis less than revealed small bowel obstruction at site of ventral hernia. No further bleeding noted. Gastric output approximately 700 cc. No bowel movement. 08/27: Tmax 99.7. Currently afebrile. Positive BM overnight approximately 1 L according to RN. No blood noted. 100 cc from gastric tube overnight. Hemoglobin corrected a properly. Likely dilutional. Noted fungemia currently issue. Opens eyes to voice. 08/28: Tmax 99.1. No BMs overnight. Minimal gastric tube output. Hemoglobin stable 9.5. Opens eyes to voice. Not following commands. Appears with singultus this morning. 08/29: 20 beat run of wide complex tachycardia overnight. Noted potassium 3.2. This is been replaced. We'll recheck this afternoon. Circuit exchange yesterday. Patient tolerating pressure control ventilation much better than PRVC/AC ventilation is low probably VQ scan. Less FiO2 requirements. No BM past 24 hour. 08/30: Unable to wean ventilator. 08/31: Patient was extubated on 08/30 however became tachypneic with use of accessory muscles of respiration and required reintubation around 6:30 PM last night and was placed back on mechanical ventilation. Currently sedated, orally intubated on mechanical ventilation. Post intubation chest x-ray suggested fluid overload for which she was given Lasix 40 mg IV with good response having made about 2.5 L urine the last 7 hours. 09/01: Remains sedated, orally intubated on mechanical ventilation. Diuresing well with Lasix. Awaiting EGD in a.m. 09/02: Little progress. CXR clearing nicely. Continue diuresis, tolerate hypernatremia. 09/03: Good diuretic response. CRISTHIAN today with no valvar pathology. 09/04: Too weak to tolerate extubation. Will require trach. 09/05: Sedated, arousable, following commands. Tolerated C Pap trial for 9 hours yesterday with pressure support +10. Tolerating tube feeds. 09/06: Extubated yesterday. Chest x-ray reveals likely mucous plugging in left lung garcia. Currently on nonrebreather mask. Planning of insomnia and thick secretions that he is unable to cough up. 09/07 Patient s/p reintubation and bronch 09/06 mucous plugs in left main stem bronchus sedated with Diprivan and Fentanyl. Afebrile. For possible trach tomorrow. 09/08 No acute events overnight. Sedated with Diprivan and Fentanyl. Afebrile. For trach today. 09/09 No acute events overnight. Sedated and intubated. s/p trach yesterday for PEG tube placement today. 09/10 Patient remains sedated and on ventilator via trach. s/p EGD yesterday PEG tube couldn't be placed endoscopically due to hernia. Surgery consulted for J-tube placement. Afebrile. 09/11 No acute events overnight. Sedated with Diprivan, Fentanyl and intubated. Afebrile. Tolerating tube feeds. 09/12 Patient is off Diprivan remains on Fentanyl infusion tolerated CPAP trials for several hrs and TP's x 2 hrs yesterday now on TP with 50% FIO2. Afebrile. 09/13 Patient tolerated TP's all day yesterday placed on PRVC/AC mode overnight. TF held for high residuals. Afebrile. On Fentanyl infusion however he is awake, restless. 09/14 No acute events overnight. Tolerated TP's all day yesterday placed back on ventilator overnight. On Fentanyl infusion. Afebrile. Repeat KUB this morning showed ileus. 09/15 Patient is off fentanyl infusion and is on Precedex drip pulled his NGT overnight. KUB this morning showed improvements in gaseous distention of bowel. 09/16 Yesterday afternoon an NG tube was placed patient was noted to have tube feeds with possible aspiration.NGT placed this am, KUB pending. 09/17: no acute events overnight. tolerated cpap. back on rate overnight. this morning on trach collar. 09/18: prior history of constipation, now with diarrhea. otherwise, awaiting placement. 09/19: diarrhea improving. still awaiting placement. 09/20: still doing well. on trach collar this morning on my evaluation. insurance has not yet approved placement. Subjective 09/21: tired out on trach collar yesterday. placed intermittently on cpap. insurance denied LTAC. will work towards [id number]. Objective Vital Signs Date Time Temp Pulse Resp B/P Pulse Ox O2 Delivery O2 Flow Rate FiO2 09/21/16 14:00 103 09/21/16 12:00 98.6 20 148/79 97 09/21/16 12:00 40 09/21/16 08:47 T-piece 6.00 Intake and Output 09/20/16 09/20/16 09/21/16 08:00 16:00 00:00 Intake Total 1624 ml 849 ml 247 ml Output Total 650 ml 850 ml 650 ml Balance 974 ml -1 ml -403 ml Result Diagram: 09/17/16 0610 09/20/16 0530 Imaging Last Impressions Abdomen X-Ray 09/15/16 0600 Signed Impressions: Service Date/Time: Thursday, September 15, 2016 03:16 - CONCLUSION: 1. Improved gaseous distention of bowel since September 14. Mild distention persists. 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 There is concentric mural thrombus. This aneurysm is not amenable to thrombin injection. Polo Moore Jr., MD Lung Scan- Nuclear Medicine 08/29/16 0000 Signed Impressions: Service Date/Time: Monday, August 29, 2016 10:20 - CONCLUSION: Low probability for pulmonary embolus. Lex Lopez MD Brain MRI 08/27/16 0000 Signed Impressions: Service Date/Time: August 15:13 - CONCLUSION: No evidence of acute infarct, hemorrhage, mass or edema. No findings to suggest significant anoxic injury. Kit Power MD Renal Ultrasound 08/25/16 0000 Signed Impressions: Service Date/Time: Wednesday, August 24, 2016 21:53 - CONCLUSION: 1. There is no hydronephrosis. Both kidneys demonstrate mild increased echotexture of the parenchyma suggesting medical renal disease. 2. Trace perihepatic free fluid and bilateral pleural effusions. Lex Malik MD Chest CT 08/25/16 0000 Signed Impressions: Service Date/Time: Thursday, August 25, 2016 21:20 - CONCLUSION: 1. Bilateral pneumonia and aspiration would be in the differential. There is dependent consolidation/atelectasis and small effusions of the bases as well. 2. Upper limits of normal to mildly enlarged mediastinal lymph nodes, most likely reactive. 3. Coronary artery calcification. 4. Right rib fractures, including acute fractures laterally of the third, fourth and fifth. There are old, healed fractures anteriorly of the right second and third ribs.. Lex Lopez MD Abdomen/Pelvis CT 08/25/16 0000 Signed Impressions: Service Date/Time: Thursday, August 25, 2016 20:20 - CONCLUSION: 1. Ventral hernia containing small bowel and with associated small bowel obstruction. The defect is broad; I believe the obstruction is probably related to scarring and/or adhesions within the hernia sac. I don't see a mass. 2. Distended stomach despite NG tube present. 3. Severe aortoiliac atherosclerosis. No aneurysm. Lex Lopez MD Objective Remarks GENERAL: Patient is 71 yo lying in bed in NAD on trach collar SKIN: Warm and dry. HEAD: Normocephalic. EYES: No scleral icterus. No injection or drainage. NECK: trachea midline. No JVD. Trach in place CARDIOVASCULAR: Regular rate and rhythm without murmurs, gallops, or rubs. RESPIRATORY: Breath sounds equal bilaterally. No accessory muscle use. GASTROINTESTINAL: Abdomen soft, non-tender, nondistended. MUSCULOSKELETAL: No cyanosis, +1 edema. Neuro: Awake. A/P Assessment and Plan Neuro/Psych: Status post CPR 15 minutes Depression NOS Neurochecks per ICU protocol Ativan 1mg Q4 PRN agitation- will hopefully wean off of this zyprexa 5mg po q8hr for agitation. EEG 08/25 revealed mild to moderate encephalopathy. No epileptiform activity. MRI brain 08/27 revealed no acute findings. Cardiovascular: Cardiac arrest status post CPR Elevated troponin History dyslipidemia History of hypertension PVD Systemic shock likely secondary to sepsis/aspiration/small bowel obstruction Possible femoral pseudoaneurysm Monitor HR and BP keep MAP>65mmHg Cardizem 60mg QID, Hydralazine 50mg Q8 Cardiac arrest status post CPR. s/p aggressive fluid resuscitation. 5 units PRBCs transfused to date minimal troponin elevation following cardiac arrest noted Echo 2D revealed EF 35-40%. Moderate LVH. Mitral valve calcified. Mild TR. Pulmonary: Acute respiratory failure secondary to aspiration pneumonia- Reintubated 09/06 s/p Trach on 09/08 End-stage COPD. Oxygen dependent FEV1 28%, FVC 1.6. S/P Aspiration 09/15 s/p reintubation and bronch 09/06 mucous plugs in left main stem bronchus Continue with vent support keep sat >92% Bronchodilators, Pulmicort twice a day CPAP /TP trials as anneliese. prednisone taper. VQ scan low probability 08/29 ICU vent bundle, pulm toilet, trach care F/U CXR GI: Small bowel obstruction - resolved Upper GI bleed plus esophageal rule out aorto esophageal fistula History of Ashley esophagitis History of colonic polyps History of ventral hernia status post repair last by Dr. Roberts Diarrhea Repeat KUB abdomen showed improvements in gaseous distention of bowel. on Reglan 5mg IV Q8, Senna, Lactulose, Colace. increase tube feeds to goal. I think from a GI standpoint, the plan should remain to use nasogastric access at this time. continue frequent speech eval for swallowing. If he fails once off the vent with better nutrition, will need permanent feeding tube by IR or surgery. I do not think this is a barrier to placement. s/p EGD 09/09: Deformed pylorus/antrum, nodular mucosa-multiple biopsies taken esophagitis distal esophagus-biopsy unable to place peg endoscopically due to hiatal hernia. CT abdomen/pelvis revealed possible small bowel obstruction at level of ventral hernia. Severe aortoiliac disease. Dr. Roberts/general surgery evaluated. Very poor surgical candidate this time. EGD 08/25 revealed esophageal nipple. Clots noted within the gastric contents without active bleeding. Protonix for GI prophylaxis Hold Bowel regimen. We'll hold off on playing rectal tube in until we have held all the bowel regimen and we have persistent diarrhea. Renal/: Acute kidney injury- resolved Hypernatremia History of bladder outlet obstruction Monitor renal function, I/O's, electrolytes replacement per protocol. Replete K , Potassium 3.3 Free water flushes 300ml Q4 monitor sodium level. No hydronephrosis on CT abdomen/pelvis ID: UTI Sepsis Fungemia Continue abx per ID ( Micafungin) till September 23.monitor for signs of infections ( Fever, WBC) s/p course of levaquin 09/10 - 09/16 Pertinent cultures 09/08 Bronch: S. Maltophilia, 09/06 Bronch- S. Maltophilia, 09/03 - blood culture - no growth 09/02 - blood culture - no growth 08/27 - blood from central line -Ashley Glabrata 08/27 -arterial line blood - pending 08/26 - sputum -Serratia 08/25 - blood cultures 2 -Ashley 08/25 - urine -no growth 08/22 - blood cultures 2 - no growth 08/21 - urine - no growth 08/20 - blood cultures 2 - 1 out of 4 staph epi Endocrine: Chronic prednisone use secondary to COPD SSI for glycemic control as needed. Heme: s/p Acute blood loss anemia History of prostate cancer Status post 4 units PRBCs ands 2 units FFP on 08/24. Given one unit PRBCs 08/26 Monitor CBC H/H stable. MSK: PT/OT evaluate and treat Access - peripheral IV's, PICC line placed 09/11 Prophylaxis - GI -Protonix - DVT - SCD/ heparin 5000 u Sq Q12- cleared by GI. H/H stable. sow manager bridgette for placement. I do not have a medical indication to keep him in an acute care setting. Papi Keating MD Sep 21, 2016 15:07
[2016-09-21] MEDS: LORazepam 2 MG/ML VIAL IV PUSH PRN (22:05)
[2016-09-22] VITALS (18 sets, daily range): BP systolic 102–137; BP diastolic 62–95; PULSE 72–127; RESP 16–24; TEMP 98.4–99; O2SAT 97–100
[2016-09-22] MEDS: METOCLOPRAMIDE HCL 10 MG/2 ML VIAL IV PUSH SCH ×3 (00:08→17:58)
[2016-09-22] MEDS: OLANZapine ODT 5 MG TAB PO SCH ×3 (00:56→17:58)
[2016-09-22] MEDS: LORazepam 2 MG/ML VIAL IV PUSH PRN (04:30)
[2016-09-22] MEDS: hydrALAZINE HCL 50 MG TAB PO SCH ×3 (05:21→22:24)
[2016-09-22] MEDS: INSULIN NovoLIN REGULAR SUPPLEMENTAL SCALE SQ SCH ×4 (05:21→17:55)
[2016-09-22] MEDS: FREE WATER G-TUBE SCH ×4 (05:21→17:58)
[2016-09-22] MEDS: NYSTATIN 100,000 U/GM PWD 15 GM BTL TOPICAL SCH ×3 (05:22→22:25)
[2016-09-22] MEDS: RESP: BUDESONIDE 0.5 MG/2 ML NEB NEB SCH ×2 (08:03→20:47)
[2016-09-22] MEDS: PANTOPRAZOLE SODIUM 40 MG VIAL IV PUSH SCH ×2 (08:15→22:24)
[2016-09-22] MEDS: HEPARIN SODIUM - SQ 10,000 UNITS/ML VIAL SQ SCH ×2 (08:15→20:12)
[2016-09-22] MEDS: MULTIVITAMINS/MINERALS THERAPEUTIC TAB PO SCH (08:18)
[2016-09-22] MEDS: DILTIAZEM HCL 60 MG TAB PO SCH ×4 (08:18→20:12)
[2016-09-22] MEDS: LACTULOSE SYRUP 20 GM/30 ML CUP PO SCH (08:18)
[2016-09-22] MEDS: predniSONE 5 MG/5 ML CUP PO SCH (08:18)
[2016-09-22] MEDS: SENNOSIDES SYRUP 8.8 MG/5 ML CUP PO SCH (08:18)
[2016-09-22] MEDS: CHLORHEXIDINE GLUCONATE 0.12% 30 ML CUP MT SCH ×2 (08:19→20:00)
[2016-09-22] MEDS: SODIUM CHLORIDE 0.9% FLUSH 10 ML FLUSH IV FLUSH SCH (08:19)
[2016-09-22] MEDS: DOCUSATE SODIUM 100 MG/10 ML UDC PO SCH ×2 (08:19→20:12)
[2016-09-22] MEDS: SODIUM CHLORIDE 0.9% FLUSH 5 ML FLUSH IVF SCH (08:19)
[2016-09-22] MEDS: COLLAGENASE OINT 30 GM TUBE TOP SCH (09:00)
[2016-09-22] MEDS: MICAFUNGIN INJ 100 MG in SODIUM CHLORIDE 0.9% INJ 100 ML IV SCH (13:02)
--- NOTE | 2016-09-22 15:13 | HHI.CCPN ---
Subjective Remarks/Hospital Course 08/24: 71 Year-old male with a medical history significant for COPD on home oxygen who was recently admitted with suspected sepsis/H And was initiated on IV antibiotics and steroids. He had recently been evaluated by GI and underwent EGD on 08/10/2016 and was found to have moderate esophagitis, mild gastritis with pathology subsequently showing Ashley esophagitis as well as colonoscopy on 08/11/2016 with polypectomy and ablation of polyp in ascending colon with hot snare. Patient has been dealing with constipation since his admission. Today when he was trying to have a bowel movement he suddenly became less responsive and then had a large emesis which resulted in aspiration and hemodynamic collapse. Patient initially had large volume emesis with dark maroon blood. CODE BLUE cardiac arrest code was activated. On my arrival patient was in bed CPR had been initiated. Significant gastric contents was still being suctioned out of his oral cavity. ACLS protocol was continued. Patient was intubated following vigorous suctioning of gastric contents from oral cavity as well as with placement of NG tube which is hooked up to suction and about 1.5 L of gastric contents being suctioned out which appeared to be dark maroon in color. Patient initially had a pulse when CODE BLUE was called and subsequently went in PEA arrest followed by asystole during ACLS and then V. fib for which he was defibrillated with 200 J 1, CPR/ACLS protocol was continued and patient eventually had return of spontaneous circulation after about 15 minutes of CPR/ACLS. Patient was transferred to [facility] and placed on mechanical ventilation. I emergently placed left femoral central line for central vascular access and he was started on Levophed for pressor support. 2 units of O- 1 crossmatch blood were ordered and transfused stat. He also received 1 L of normal saline bolus following return of spontaneous circulation. Stat labs were ordered. His hemoglobin on ABG done post resuscitation was 5.6. I did order Protonix 80 mg IV stat followed by 8 mg per hour IV infusion. Patient remained encephalopathic though was minimally responsive following transfer to the ICU. GI consult was requested and I spoke with Dr. Zamarripa at bedside on his arrival. History was obtained by reviewing records, discussion with family/ GI as well as nursing staff. According to patient's daughter he has not been doing well for the last few months in terms of his breathing and has been using his home oxygen more often. He gets extremely short of breath even with the least exertion. 08/25: Remains encephalopathic/ sedated, [facility]. Transiently off levophed last night however back to 11 mcg/min currently. Hgb up to 9.4 following 4 units PRBCs transfused last night. 08/26: Tmax 99. Some unresponsive on the ventilator. CT abdomen/pelvis less than revealed small bowel obstruction at site of ventral hernia. No further bleeding noted. Gastric output approximately 700 cc. No bowel movement. 08/27: Tmax 99.7. Currently afebrile. Positive BM overnight approximately 1 L according to RN. No blood noted. 100 cc from gastric tube overnight. Hemoglobin corrected a properly. Likely dilutional. Noted fungemia currently issue. Opens eyes to voice. 08/28: Tmax 99.1. No BMs overnight. Minimal gastric tube output. Hemoglobin stable 9.5. Opens eyes to voice. Not following commands. Appears with singultus this morning. 08/29: 20 beat run of wide complex tachycardia overnight. Noted potassium 3.2. This is been replaced. We'll recheck this afternoon. Circuit exchange yesterday. Patient tolerating pressure control ventilation much better than PRVC/AC ventilation is low probably VQ scan. Less FiO2 requirements. No BM past 24 hour. 08/30: Unable to wean ventilator. 08/31: Patient was extubated on 08/30 however became tachypneic with use of accessory muscles of respiration and required reintubation around 6:30 PM last night and was placed back on mechanical ventilation. Currently sedated, orally intubated on mechanical ventilation. Post intubation chest x-ray suggested fluid overload for which she was given Lasix 40 mg IV with good response having made about 2.5 L urine the last 7 hours. 09/01: Remains sedated, orally intubated on mechanical ventilation. Diuresing well with Lasix. Awaiting EGD in a.m. 09/02: Little progress. CXR clearing nicely. Continue diuresis, tolerate hypernatremia. 09/03: Good diuretic response. CRISTHIAN today with no valvar pathology. 09/04: Too weak to tolerate extubation. Will require trach. 09/05: Sedated, arousable, following commands. Tolerated C Pap trial for 9 hours yesterday with pressure support +10. Tolerating tube feeds. 09/06: Extubated yesterday. Chest x-ray reveals likely mucous plugging in left lung garcia. Currently on nonrebreather mask. Planning of insomnia and thick secretions that he is unable to cough up. 09/07 Patient s/p reintubation and bronch 09/06 mucous plugs in left main stem bronchus sedated with Diprivan and Fentanyl. Afebrile. For possible trach tomorrow. 09/08 No acute events overnight. Sedated with Diprivan and Fentanyl. Afebrile. For trach today. 09/09 No acute events overnight. Sedated and intubated. s/p trach yesterday for PEG tube placement today. 09/10 Patient remains sedated and on ventilator via trach. s/p EGD yesterday PEG tube couldn't be placed endoscopically due to hernia. Surgery consulted for J-tube placement. Afebrile. 09/11 No acute events overnight. Sedated with Diprivan, Fentanyl and intubated. Afebrile. Tolerating tube feeds. 09/12 Patient is off Diprivan remains on Fentanyl infusion tolerated CPAP trials for several hrs and TP's x 2 hrs yesterday now on TP with 50% FIO2. Afebrile. 09/13 Patient tolerated TP's all day yesterday placed on PRVC/AC mode overnight. TF held for high residuals. Afebrile. On Fentanyl infusion however he is awake, restless. 09/14 No acute events overnight. Tolerated TP's all day yesterday placed back on ventilator overnight. On Fentanyl infusion. Afebrile. Repeat KUB this morning showed ileus. 09/15 Patient is off fentanyl infusion and is on Precedex drip pulled his NGT overnight. KUB this morning showed improvements in gaseous distention of bowel. 09/16 Yesterday afternoon an NG tube was placed patient was noted to have tube feeds with possible aspiration.NGT placed this am, KUB pending. 09/17: no acute events overnight. tolerated cpap. back on rate overnight. this morning on trach collar. 09/18: prior history of constipation, now with diarrhea. otherwise, awaiting placement. 09/19: diarrhea improving. still awaiting placement. 09/20: still doing well. on trach collar this morning on my evaluation. insurance has not yet approved placement. 09/21: tired out on trach collar yesterday. placed intermittently on cpap. insurance denied LTAC. will work towards [id number]. Subjective 09/22: had [id number] today. insurance continues to request permanent surgical feeding access to go to LTAC. My medical opinion is that patient is clinically improving and tolerating DHT without complication, and could safely be fed through DHT for the coming weeks, and I anticipate his dysphagia to resolve as his strength improves. I do not see a clinical indication for permanent surgical gastric access. We also are not a rehab center, and he is not getting medically appropriate care for his level of medical need. He does not require ICU admission, and medically would be more appropriate for LTAC. Objective Vital Signs Date Time Temp Pulse Resp B/P Pulse Ox O2 Delivery O2 Flow Rate FiO2 09/22/16 12:00 99.0 109 16 115/65 100 09/22/16 09:15 T-piece 6.00 50 Intake and Output 09/21/16 09/21/16 09/22/16 08:00 16:00 00:00 Intake Total 532 ml 1000 ml 420 ml Output Total 700 ml 950 ml 800 ml Balance -168 ml 50 ml -380 ml Result Diagram: 09/20/16 0530 Imaging Last Impressions Abdomen X-Ray 09/15/16 0600 Signed Impressions: Service Date/Time: Thursday, September 15, 2016 03:16 - CONCLUSION: 1. Improved gaseous distention of bowel since September 14. Mild distention persists. 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 There is concentric mural thrombus. This aneurysm is not amenable to thrombin injection. Polo Moore Jr., MD Lung Scan- Nuclear Medicine 08/29/16 0000 Signed Impressions: Service Date/Time: Monday, August 29, 2016 10:20 - CONCLUSION: Low probability for pulmonary embolus. Lex Lopez MD Brain MRI 08/27/16 0000 Signed Impressions: Service Date/Time: August 15:13 - CONCLUSION: No evidence of acute infarct, hemorrhage, mass or edema. No findings to suggest significant anoxic injury. Kit Power MD Renal Ultrasound 08/25/16 Signed Impressions: Service Date/Time: Wednesday, August 24, 2016 21:53 - CONCLUSION: 1. There is no hydronephrosis. Both kidneys demonstrate mild increased echotexture of the parenchyma suggesting medical renal disease. 2. Trace perihepatic free fluid and bilateral pleural effusions. Lex Malik MD Chest CT 08/25/16 Signed Impressions: Service Date/Time: Thursday, August 25, 2016 21:20 - CONCLUSION: 1. Bilateral pneumonia and aspiration would be in the differential. There is dependent consolidation/atelectasis and small effusions of the bases as well. 2. Upper limits of normal to mildly enlarged mediastinal lymph nodes, most likely reactive. 3. Coronary artery calcification. 4. Right rib fractures, including acute fractures laterally of the third, fourth and fifth. There are old, healed fractures anteriorly of the right second and third ribs.. Lex Lopez MD Abdomen/Pelvis CT 08/25/16 Signed Impressions: Service Date/Time: Thursday, August 25, 2016 20:20 - CONCLUSION: 1. Ventral hernia containing small bowel and with associated small bowel obstruction. The defect is broad; I believe the obstruction is probably related to scarring and/or adhesions within the hernia sac. I don't see a mass. 2. Distended stomach despite NG tube present. 3. Severe aortoiliac atherosclerosis. No aneurysm. Lex Lopez MD Objective Remarks GENERAL: Patient is 71 yo lying in bed in NAD on trach collar SKIN: Warm and dry. HEAD: Normocephalic. EYES: No scleral icterus. No injection or drainage. NECK: trachea midline. No JVD. Trach in place CARDIOVASCULAR: Regular rate and rhythm without murmurs, gallops, or rubs. RESPIRATORY: Breath sounds equal bilaterally. No accessory muscle use. GASTROINTESTINAL: Abdomen soft, non-tender, nondistended. MUSCULOSKELETAL: No cyanosis, +1 edema. Neuro: Awake. A/P Assessment and Plan Neuro/Psych: Status post CPR 15 minutes Depression NOS Neurochecks per ICU protocol Ativan 1mg Q4 PRN agitation- will hopefully wean off of this zyprexa 5mg po q8hr for agitation. EEG 08/25 revealed mild to moderate encephalopathy. No epileptiform activity. MRI brain 08/27 revealed no acute findings. Cardiovascular: Cardiac arrest status post CPR Elevated troponin History dyslipidemia History of hypertension PVD Systemic shock likely secondary to sepsis/aspiration/small bowel obstruction Possible femoral pseudoaneurysm Monitor HR and BP keep MAP>65mmHg Cardizem 60mg QID, Hydralazine 50mg Q8 Cardiac arrest status post CPR. s/p aggressive fluid resuscitation. 5 units PRBCs transfused to date minimal troponin elevation following cardiac arrest noted Echo 2D revealed EF 35-40%. Moderate LVH. Mitral valve calcified. Mild TR. Pulmonary: Acute respiratory failure secondary to aspiration pneumonia- Reintubated 09/06 s/p Trach on 09/08 End-stage COPD. Oxygen dependent FEV1 28%, FVC 1.6. S/P Aspiration 09/15 s/p reintubation and bronch 09/06 mucous plugs in left main stem bronchus Continue with vent support keep sat >92% Bronchodilators, Pulmicort twice a day CPAP /TP trials as anneliese. still failing continuous TP for tachypnea and dyspnea. still too week. really needs aggressive pulmonary rehab with LTAC. prednisone taper. VQ scan low probability 08/29 ICU vent bundle, pulm toilet, trach care F/U CXR GI: Small bowel obstruction - resolved Upper GI bleed plus esophageal rule out aorto esophageal fistula History of Ashley esophagitis History of colonic polyps History of ventral hernia status post repair last by Dr. Roberts Diarrhea Repeat KUB abdomen showed improvements in gaseous distention of bowel. on Reglan 5mg IV Q8, Senna, Lactulose, Colace. increase tube feeds to goal. I think from a GI standpoint, the plan should remain to use nasogastric access at this time. continue frequent speech eval for swallowing. If he fails once off the vent with better nutrition, will need permanent feeding tube by IR or surgery. I do not think this is a barrier to placement. s/p EGD 09/09: Deformed pylorus/antrum, nodular mucosa-multiple biopsies taken esophagitis distal esophagus-biopsy unable to place peg endoscopically due to hiatal hernia. CT abdomen/pelvis revealed possible small bowel obstruction at level of ventral hernia. Severe aortoiliac disease. Dr. Roberts/general surgery evaluated. Very poor surgical candidate this time. EGD 08/25 revealed esophageal nipple. Clots noted within the gastric contents without active bleeding. Protonix for GI prophylaxis Hold Bowel regimen for diarrhea. Renal/: Acute kidney injury- resolved Hypernatremia History of bladder outlet obstruction Monitor renal function, I/O's, electrolytes replacement per protocol. Replete K , Potassium 3.3 Free water flushes 300ml Q4 monitor sodium level. No hydronephrosis on CT abdomen/pelvis ID: UTI Sepsis Fungemia Continue abx per ID ( Micafungin) till September 23.monitor for signs of infections ( Fever, WBC) s/p course of levaquin 09/10 - 09/16 Pertinent cultures 09/08 Bronch: S. Maltophilia, 09/06 Bronch- S. Maltophilia, 09/03 - blood culture - no growth 09/02 - blood culture - no growth 08/27 - blood from central line -Ashley Glabrata 08/27 -arterial line blood - pending 08/26 - sputum -Serratia 08/25 - blood cultures 2 -Ashley 08/25 - urine -no growth 08/22 - blood cultures 2 - no growth 08/21 - urine - no growth 08/20 - blood cultures 2 - 1 out of 4 staph epi Endocrine: Chronic prednisone use secondary to COPD SSI for glycemic control as needed. Heme: s/p Acute blood loss anemia History of prostate cancer Status post 4 units PRBCs ands 2 units FFP on 08/24. Given one unit PRBCs 08/26 Monitor CBC H/H stable. MSK: PT/OT evaluate and treat Access - peripheral IV's, PICC line placed 09/11 Prophylaxis - GI -Protonix - DVT - SCD/ heparin 5000 u Sq Q12- cleared by GI. H/H stable. general operations manager eval for placement. I do not have a medical indication to keep him in an acute care setting. Will transfer to [facility]. Papi Keating MD Sep 22, 2016 15:12
[2016-09-23] VITALS (42 sets, daily range): BP systolic 81–140; BP diastolic 44–78; PULSE 87–123; RESP 15–30; TEMP 97.8–99.5; O2SAT 76–100
[2016-09-23] MEDS: METOCLOPRAMIDE HCL 10 MG/2 ML VIAL IV PUSH SCH ×3 (01:30→16:20)
[2016-09-23] MEDS: OLANZapine ODT 5 MG TAB PO SCH ×3 (02:00→18:37)
[2016-09-23] MEDS: FREE WATER G-TUBE SCH ×4 (05:54→18:00)
[2016-09-23] MEDS: INSULIN NovoLIN REGULAR SUPPLEMENTAL SCALE SQ SCH ×3 (06:00→18:42)
[2016-09-23] MEDS: hydrALAZINE HCL 50 MG TAB PO SCH ×3 (06:28→20:04)
[2016-09-23] MEDS: NYSTATIN 100,000 U/GM PWD 15 GM BTL TOPICAL SCH ×3 (06:29→20:05)
[2016-09-23] MEDS ORDERED: METOPROLOL TARTRATE 5 MG/5 ML VIAL IV PUSH PRN (07:00)
--- NOTE | 2016-09-23 07:11 | HHI.CCPN ---
Subjective Remarks/Hospital Course 08/24: 71 Year-old male with a medical history significant for COPD on home oxygen who was recently admitted with suspected sepsis/H And was initiated on IV antibiotics and steroids. He had recently been evaluated by GI and underwent EGD on 08/10/2016 and was found to have moderate esophagitis, mild gastritis with pathology subsequently showing Ashley esophagitis as well as colonoscopy on 08/11/2016 with polypectomy and ablation of polyp in ascending colon with hot snare. Patient has been dealing with constipation since his admission. Today when he was trying to have a bowel movement he suddenly became less responsive and then had a large emesis which resulted in aspiration and hemodynamic collapse. Patient initially had large volume emesis with dark maroon blood. CODE BLUE cardiac arrest code was activated. On my arrival patient was in bed CPR had been initiated. Significant gastric contents was still being suctioned out of his oral cavity. ACLS protocol was continued. Patient was intubated following vigorous suctioning of gastric contents from oral cavity as well as with placement of NG tube which is hooked up to suction and about 1.5 L of gastric contents being suctioned out which appeared to be dark maroon in color. Patient initially had a pulse when CODE BLUE was called and subsequently went in PEA arrest followed by asystole during ACLS and then V. fib for which he was defibrillated with 200 J 1, CPR/ACLS protocol was continued and patient eventually had return of spontaneous circulation after about 15 minutes of CPR/ACLS. Patient was transferred to [facility] and placed on mechanical ventilation. I emergently placed left femoral central line for central vascular access and he was started on Levophed for pressor support. 2 units of O- 1 crossmatch blood were ordered and transfused stat. He also received 1 L of normal saline bolus following return of spontaneous circulation. Stat labs were ordered. His hemoglobin on ABG done post resuscitation was 5.6. I did order Protonix 80 mg IV stat followed by 8 mg per hour IV infusion. Patient remained encephalopathic though was minimally responsive following transfer to the ICU. GI consult was requested and I spoke with Dr. Zamarripa at bedside on his arrival. History was obtained by reviewing records, discussion with family/ GI as well as nursing staff. According to patient's daughter he has not been doing well for the last few months in terms of his breathing and has been using his home oxygen more often. He gets extremely short of breath even with the least exertion. 08/25: Remains encephalopathic/ sedated, [facility]. Transiently off levophed last night however back to 11 mcg/min currently. Hgb up to 9.4 following 4 units PRBCs transfused last night. 08/26: Tmax 99. Some unresponsive on the ventilator. CT abdomen/pelvis less than revealed small bowel obstruction at site of ventral hernia. No further bleeding noted. Gastric output approximately 700 cc. No bowel movement. 08/27: Tmax 99.7. Currently afebrile. Positive BM overnight approximately 1 L according to RN. No blood noted. 100 cc from gastric tube overnight. Hemoglobin corrected a properly. Likely dilutional. Noted fungemia currently issue. Opens eyes to voice. 08/28: Tmax 99.1. No BMs overnight. Minimal gastric tube output. Hemoglobin stable 9.5. Opens eyes to voice. Not following commands. Appears with singultus this morning. 08/29: 20 beat run of wide complex tachycardia overnight. Noted potassium 3.2. This is been replaced. We'll recheck this afternoon. Circuit exchange yesterday. Patient tolerating pressure control ventilation much better than PRVC/AC ventilation is low probably VQ scan. Less FiO2 requirements. No BM past 24 hour. 08/30: Unable to wean ventilator. 08/31: Patient was extubated on 08/30 however became tachypneic with use of accessory muscles of respiration and required reintubation around 6:30 PM last night and was placed back on mechanical ventilation. Currently sedated, orally intubated on mechanical ventilation. Post intubation chest x-ray suggested fluid overload for which she was given Lasix 40 mg IV with good response having made about 2.5 L urine the last 7 hours. 09/01: Remains sedated, orally intubated on mechanical ventilation. Diuresing well with Lasix. Awaiting EGD in a.m. 09/02: Little progress. CXR clearing nicely. Continue diuresis, tolerate hypernatremia. 09/03: Good diuretic response. CRISTHIAN today with no valvar pathology. 09/04: Too weak to tolerate extubation. Will require trach. 09/05: Sedated, arousable, following commands. Tolerated C Pap trial for 9 hours yesterday with pressure support +10. Tolerating tube feeds. 09/06: Extubated yesterday. Chest x-ray reveals likely mucous plugging in left lung garcia. Currently on nonrebreather mask. Planning of insomnia and thick secretions that he is unable to cough up. 09/07 Patient s/p reintubation and bronch 09/06 mucous plugs in left main stem bronchus sedated with Diprivan and Fentanyl. Afebrile. For possible trach tomorrow. 09/08 No acute events overnight. Sedated with Diprivan and Fentanyl. Afebrile. For trach today. 09/09 No acute events overnight. Sedated and intubated. s/p trach yesterday for PEG tube placement today. 09/10 Patient remains sedated and on ventilator via trach. s/p EGD yesterday PEG tube couldn't be placed endoscopically due to hernia. Surgery consulted for J-tube placement. Afebrile. 09/11 No acute events overnight. Sedated with Diprivan, Fentanyl and intubated. Afebrile. Tolerating tube feeds. 09/12 Patient is off Diprivan remains on Fentanyl infusion tolerated CPAP trials for several hrs and TP's x 2 hrs yesterday now on TP with 50% FIO2. Afebrile. 09/13 Patient tolerated TP's all day yesterday placed on PRVC/AC mode overnight. TF held for high residuals. Afebrile. On Fentanyl infusion however he is awake, restless. 09/14 No acute events overnight. Tolerated TP's all day yesterday placed back on ventilator overnight. On Fentanyl infusion. Afebrile. Repeat KUB this morning showed ileus. 09/15 Patient is off fentanyl infusion and is on Precedex drip pulled his NGT overnight. KUB this morning showed improvements in gaseous distention of bowel. 09/16 Yesterday afternoon an NG tube was placed patient was noted to have tube feeds with possible aspiration.NGT placed this am, KUB pending. 09/17: no acute events overnight. tolerated cpap. back on rate overnight. this morning on trach collar. 09/18: prior history of constipation, now with diarrhea. otherwise, awaiting placement. 09/19: diarrhea improving. still awaiting placement. 09/20: still doing well. on trach collar this morning on my evaluation. insurance has not yet approved placement. 09/21: tired out on trach collar yesterday. placed intermittently on cpap. insurance denied LTAC. will work towards [id number]. 09/22: had [id number] today. insurance continues to request permanent surgical feeding access to go to LTAC. My medical opinion is that patient is clinically improving and tolerating DHT without complication, and could safely be fed through DHT for the coming weeks, and I anticipate his dysphagia to resolve as his strength improves. I do not see a clinical indication for permanent surgical gastric access. We also are not a rehab center, and he is not getting medically appropriate care for his level of medical need. He does not require ICU admission, and medically would be more appropriate for LTAC. Subjective 09/23: transferred to [facility]. doing well. tachycardic this morning. diltiazem changed from QID to q6hr for more even distribution. insurance company denied admission to LTAC. will continue to pursue this as an option. otherwise, OOB to chair daily. still working with speech. Objective Vital Signs Date Time Temp Pulse Resp B/P Pulse Ox O2 Delivery O2 Flow Rate FiO2 09/23/16 06:00 118 09/23/16 04:18 98 40 09/23/16 04:00 98.7 16 106/62 09/22/16 20:47 T-piece 6.00 Intake and Output 09/22/16 09/22/16 09/23/16 08:00 16:00 00:00 Intake Total 300 ml 1471 ml 100 ml Output Total 700 ml 900 ml 1250 ml Balance -400 ml 571 ml -1150 ml Result Diagram: 09/20/16 0530 Imaging Last Impressions Abdomen X-Ray 09/15/16 0600 Signed Impressions: Service Date/Time: Thursday, September 15, 2016 03:16 - CONCLUSION: 1. Improved gaseous distention of bowel since September 14. Mild distention persists. 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 There is concentric mural thrombus. This aneurysm is not amenable to thrombin injection. Polo Moore Jr., MD Lung Scan-V Nuclear Medicine 08/29/16 0000 Signed Impressions: Service Date/Time: Monday, August 29, 2016 10:20 - CONCLUSION: Low probability for pulmonary embolus. Lex Lopez MD Brain MRI 08/27/16 0000 Signed Impressions: Service Date/Time: August 15:13 - CONCLUSION: No evidence of acute infarct, hemorrhage, mass or edema. No findings to suggest significant anoxic injury. Kit Power MD Renal Ultrasound 08/25/16 0000 Signed Impressions: Service Date/Time: Wednesday, August 24, 2016 21:53 - CONCLUSION: 1. There is no hydronephrosis. Both kidneys demonstrate mild increased echotexture of the parenchyma suggesting medical renal disease. 2. Trace perihepatic free fluid and bilateral pleural effusions. Lex Malik MD Chest CT 08/25/16 0000 Signed Impressions: Service Date/Time: Thursday, August 25, 2016 21:20 - CONCLUSION: 1. Bilateral pneumonia and aspiration would be in the differential. There is dependent consolidation/atelectasis and small effusions of the bases as well. 2. Upper limits of normal to mildly enlarged mediastinal lymph nodes, most likely reactive. 3. Coronary artery calcification. 4. Right rib fractures, including acute fractures laterally of the third, fourth and fifth. There are old, healed fractures anteriorly of the right second and third ribs.. Lex Lopez MD Abdomen/Pelvis CT 08/25/16 0000 Signed Impressions: Service Date/Time: Thursday, August 25, 2016 20:20 - CONCLUSION: 1. Ventral hernia containing small bowel and with associated small bowel obstruction. The defect is broad; I believe the obstruction is probably related to scarring and/or adhesions within the hernia sac. I don't see a mass. 2. Distended stomach despite NG tube present. 3. Severe aortoiliac atherosclerosis. No aneurysm. Lex Lopez MD Objective Remarks GENERAL: Patient is 71 yo lying in bed in NAD on vent this AM. SKIN: Warm and dry. HEAD: Normocephalic. EYES: No scleral icterus. No injection or drainage. NECK: trachea midline. No JVD. Trach in place CARDIOVASCULAR: Regular rate and rhythm without murmurs, gallops, or rubs. RESPIRATORY: Breath sounds equal bilaterally. No accessory muscle use. GASTROINTESTINAL: Abdomen soft, non-tender, nondistended. MUSCULOSKELETAL: No cyanosis, +1 edema. Neuro: Awake. A/P Assessment and Plan Neuro/Psych: Status post CPR 15 minutes Depression NOS Neurochecks per ICU protocol Ativan 1mg Q4 PRN agitation- will hopefully wean off of this zyprexa 5mg po q8hr for agitation. EEG 08/25 revealed mild to moderate encephalopathy. No epileptiform activity. MRI brain 08/27 revealed no acute findings. Cardiovascular: Cardiac arrest status post CPR Elevated troponin History dyslipidemia History of hypertension PVD Systemic shock likely secondary to sepsis/aspiration/small bowel obstruction Possible femoral pseudoaneurysm Monitor HR and BP keep MAP>65mmHg Cardizem 60mg QID, Hydralazine 50mg Q8 Cardiac arrest status post CPR. s/p aggressive fluid resuscitation. 5 units PRBCs transfused to date minimal troponin elevation following cardiac arrest noted Echo 2D revealed EF 35-40%. Moderate LVH. Mitral valve calcified. Mild TR. Pulmonary: Acute respiratory failure secondary to aspiration pneumonia- Reintubated 09/06 s/p Trach on 09/08 End-stage COPD. Oxygen dependent FEV1 28%, FVC 1.6. S/P Aspiration 09/15 s/p reintubation and bronch 09/06 mucous plugs in left main stem bronchus Continue with vent support keep sat >92% Bronchodilators, Pulmicort twice a day CPAP /TP trials as anneliese. still failing continuous TP for tachypnea and dyspnea. still too week. really needs aggressive pulmonary rehab with LTAC. prednisone taper. VQ scan low probability 08/29 ICU vent bundle, pulm toilet, trach care F/U CXR GI: Small bowel obstruction - resolved Upper GI bleed plus esophageal rule out aorto esophageal fistula History of Ashley esophagitis History of colonic polyps History of ventral hernia status post repair last by Dr. Roberts Diarrhea Repeat KUB abdomen showed improvements in gaseous distention of bowel. on Reglan 5mg IV Q8, Senna, Lactulose, Colace. increase tube feeds to goal. I think from a GI standpoint, the plan should remain to use nasogastric access at this time. continue frequent speech eval for swallowing. s/p EGD 09/09: Deformed pylorus/antrum, nodular mucosa-multiple biopsies taken esophagitis distal esophagus-biopsy unable to place peg endoscopically due to hiatal hernia. CT abdomen/pelvis revealed possible small bowel obstruction at level of ventral hernia. Severe aortoiliac disease. Dr. Roberts/general surgery evaluated. Very poor surgical candidate this time. EGD 08/25 revealed esophageal nipple. Clots noted within the gastric contents without active bleeding. Protonix for GI prophylaxis Hold Bowel regimen for diarrhea. [employer] nutrition plan: Feeding per DHT. the patient does not have a contraindication to replacement of DHT if it comes out accidentally. Continue speech/swallow eval and strengthening. I do think he will be strong enough to eat PO in the near future and will not medically require surgical feeding tube. Surgical feeding tube high risk given hernia. risks outweigh benefits. we have a defined long-term enteral feeding plan. Renal/: Acute kidney injury- resolved Hypernatremia History of bladder outlet obstruction Monitor renal function, I/O's, electrolytes replacement per protocol. Replete K , Potassium 3.3 Free water flushes 300ml Q4 monitor sodium level. No hydronephrosis on CT abdomen/pelvis ID: UTI Sepsis Fungemia Continue abx per ID ( Micafungin) till September 23.will d/c after today. monitor for signs of infections ( Fever, WBC) s/p course of levaquin 09/10 - 09/16 Pertinent cultures 09/08 Bronch: S. Maltophilia, 09/06 Bronch- S. Maltophilia, 09/03 - blood culture - no growth 09/02 - blood culture - no growth 08/27 - blood from central line -Ashley Glabrata 08/27 -arterial line blood - pending 08/26 - sputum -Serratia 08/25 - blood cultures 2 -Ashley 08/25 - urine -no growth 08/22 - blood cultures 2 - no growth 08/21 - urine - no growth 08/20 - blood cultures 2 - 1 out of 4 staph epi Endocrine: Chronic prednisone use secondary to COPD SSI for glycemic control as needed. Heme: s/p Acute blood loss anemia History of prostate cancer Status post 4 units PRBCs ands 2 units FFP on 08/24. Given one unit PRBCs 08/26 Monitor CBC H/H stable. MSK: PT/OT evaluate and treat Access - peripheral IV's, PICC line placed 09/11 Prophylaxis - GI -Protonix - DVT - SCD/ heparin 5000 u Sq Q12- cleared by GI. H/H stable. bench manager eval for placement. I do not have a medical indication to keep him in an acute care setting. Papi Keating MD Sep 23, 2016 07:11
[2016-09-23] MEDS: DILTIAZEM HCL 60 MG TAB PO SCH ×3 (07:32→18:38)
[2016-09-23] MEDS: MAGNESIUM SULFATE 1 GM PREMIX 100 ML IV SCH ×2 (07:33→08:38)
[2016-09-23] MEDS: RESP: BUDESONIDE 0.5 MG/2 ML NEB NEB SCH ×2 (07:50→19:23)
[2016-09-23] MEDS: CHLORHEXIDINE GLUCONATE 0.12% 30 ML CUP MT SCH (08:00)
[2016-09-23] MEDS ORDERED: LACTATED RINGER'S 1000 ML INJ 500 ML IV ONE (08:15)
[2016-09-23] MEDS: DOCUSATE SODIUM 100 MG/10 ML UDC PO SCH ×2 (08:37→20:04)
[2016-09-23] MEDS: PANTOPRAZOLE SODIUM 40 MG VIAL IV PUSH SCH ×2 (08:38→20:04)
[2016-09-23] MEDS: MULTIVITAMINS/MINERALS THERAPEUTIC TAB PO SCH (09:00)
[2016-09-23] MEDS: DOXAZOSIN MESYLATE 2 MG TAB PO SCH (09:00)
[2016-09-23] MEDS: SENNOSIDES SYRUP 8.8 MG/5 ML CUP PO SCH (09:00)
[2016-09-23] MEDS: LACTULOSE SYRUP 20 GM/30 ML CUP PO SCH (09:00)
[2016-09-23] MEDS: SODIUM CHLORIDE 0.9% FLUSH 5 ML FLUSH IVF SCH (09:00)
[2016-09-23] MEDS: MICAFUNGIN INJ 100 MG in SODIUM CHLORIDE 0.9% INJ 100 ML IV SCH (11:57)
[2016-09-23] MEDS: LORazepam 2 MG/ML VIAL IV PUSH PRN ×2 (11:58→22:34)
[2016-09-23] MEDS: HEPARIN SODIUM - SQ 10,000 UNITS/ML VIAL SQ SCH ×2 (11:59→20:04)
[2016-09-23] MEDS: predniSONE 5 MG/5 ML CUP PO SCH (11:59)
[2016-09-23] MEDS: SODIUM CHLORIDE 0.9% FLUSH 10 ML FLUSH IV FLUSH SCH (12:01)
[2016-09-23] MEDS: COLLAGENASE OINT 30 GM TUBE TOP SCH (12:44)
[2016-09-23] MEDS: RESP: ALBUTEROL 2.5 MG/IPRATROPIUM 0.5 MG NEB (PRN) INH (15:01)
[2016-09-23] MEDS: HYDROmorphone HCL PF 1 MG/ML VIAL IV PRN ×2 (16:21→20:16)
[2016-09-23] MEDS: CHLORHEXIDINE GLUCONATE 0.12% 15 ML CUP SCH (20:00)
[2016-09-24] VITALS (34 sets, daily range): BP systolic 90–153; BP diastolic 58–79; PULSE 102–132; RESP 17–45; TEMP 98.5–99.7; O2SAT 93–100
[2016-09-24] MEDS: DILTIAZEM HCL 60 MG TAB PO SCH ×4 (00:39→17:39)
[2016-09-24] MEDS: METOCLOPRAMIDE HCL 10 MG/2 ML VIAL IV PUSH SCH ×3 (00:40→17:36)
[2016-09-24] MEDS: OLANZapine ODT 5 MG TAB PO SCH ×3 (00:42→17:39)
[2016-09-24] MEDS: HYDROmorphone HCL PF 1 MG/ML VIAL IV PRN ×3 (02:16→20:30)
[2016-09-24] MEDS: LORazepam 2 MG/ML VIAL IV PUSH PRN (05:00)
[2016-09-24] MEDS: hydrALAZINE HCL 50 MG TAB PO SCH ×3 (05:00→20:29)
[2016-09-24] MEDS: FREE WATER G-TUBE SCH ×4 (05:00→17:40)
[2016-09-24] MEDS: NYSTATIN 100,000 U/GM PWD 15 GM BTL TOPICAL SCH ×3 (05:03→20:30)
[2016-09-24] MEDS: INSULIN NovoLIN REGULAR SUPPLEMENTAL SCALE SQ SCH ×4 (05:33→18:00)
[2016-09-24 05:40] LABS: HEMATOCRIT 22.4 % (39.0-51.0); MEAN CELL VOLUME 92.3 FL (80.0-100.0); MEAN CORPUSCULAR HEMOGLOBIN 30.8 PG (27.0-34.0); MEAN CORPUSCULAR HGB CONC 33.4 % (32.0-36.0); PLATELET COUNT 197 TH/MM3 (150-450); RED BLOOD COUNT 2.43 MIL/MM3 (4.50-5.90); RED CELL DISTRIBUTION WIDTH 17.7 % (11.6-17.2); REVIEW FLAG FINAL; WHITE BLOOD COUNT 7.9 TH/MM3 (4.0-11.0)
[2016-09-24 05:47] LABS: POTASSIUM 3.8 MEQ/L (3.5-5.1)
[2016-09-24 05:52] LABS: BICARBONATE 30.6 MEQ/L (21.0-32.0); MAGNESIUM 1.9 MG/DL (1.5-2.5)
--- NOTE | 2016-09-24 06:21 | HHI.CCPN ---
Subjective Remarks/Hospital Course 08/24: 71 Year-old male with a medical history significant for COPD on home oxygen who was recently admitted with suspected sepsis/H And was initiated on IV antibiotics and steroids. He had recently been evaluated by GI and underwent EGD on 08/10/2016 and was found to have moderate esophagitis, mild gastritis with pathology subsequently showing Ashlye esophagitis as well as colonoscopy on 08/11/2016 with polypectomy and ablation of polyp in ascending colon with hot snare. Patient has been dealing with constipation since his admission. Today when he was trying to have a bowel movement he suddenly became less responsive and then had a large emesis which resulted in aspiration and hemodynamic collapse. Patient initially had large volume emesis with dark maroon blood. CODE BLUE cardiac arrest code was activated. On my arrival patient was in bed CPR had been initiated. Significant gastric contents was still being suctioned out of his oral cavity. ACLS protocol was continued. Patient was intubated following vigorous suctioning of gastric contents from oral cavity as well as with placement of NG tube which is hooked up to suction and about 1.5 L of gastric contents being suctioned out which appeared to be dark maroon in color. Patient initially had a pulse when CODE BLUE was called and subsequently went in PEA arrest followed by asystole during ACLS and then V. fib for which he was defibrillated with 200 J 1, CPR/ACLS protocol was continued and patient eventually had return of spontaneous circulation after about 15 minutes of CPR/ACLS. Patient was transferred to [facility] and placed on mechanical ventilation. I emergently placed left femoral central line for central vascular access and he was started on Levophed for pressor support. 2 units of O- 1 crossmatch blood were ordered and transfused stat. He also received 1 L of normal saline bolus following return of spontaneous circulation. Stat labs were ordered. His hemoglobin on ABG done post resuscitation was 5.6. I did order Protonix 80 mg IV stat followed by 8 mg per hour IV infusion. Patient remained encephalopathic though was minimally responsive following transfer to the ICU. GI consult was requested and I spoke with Dr. Zamarripa at bedside on his arrival. History was obtained by reviewing records, discussion with family/ GI as well as nursing staff. According to patient's daughter he has not been doing well for the last few months in terms of his breathing and has been using his home oxygen more often. He gets extremely short of breath even with the least exertion. 08/25: Remains encephalopathic/ sedated, [facility]. Transiently off levophed last night however back to 11 mcg/min currently. Hgb up to 9.4 following 4 units PRBCs transfused last night. 08/26: Tmax 99. Some unresponsive on the ventilator. CT abdomen/pelvis less than revealed small bowel obstruction at site of ventral hernia. No further bleeding noted. Gastric output approximately 700 cc. No bowel movement. 08/27: Tmax 99.7. Currently afebrile. Positive BM overnight approximately 1 L according to RN. No blood noted. 100 cc from gastric tube overnight. Hemoglobin corrected a properly. Likely dilutional. Noted fungemia currently issue. Opens eyes to voice. 08/28: Tmax 99.1. No BMs overnight. Minimal gastric tube output. Hemoglobin stable 9.5. Opens eyes to voice. Not following commands. Appears with singultus this morning. 08/29: 20 beat run of wide complex tachycardia overnight. Noted potassium 3.2. This is been replaced. We'll recheck this afternoon. Circuit exchange yesterday. Patient tolerating pressure control ventilation much better than PRVC/AC ventilation is low probably VQ scan. Less FiO2 requirements. No BM past 24 hour. 08/30: Unable to wean ventilator. 08/31: Patient was extubated on 08/30 however became tachypneic with use of accessory muscles of respiration and required reintubation around 6:30 PM last night and was placed back on mechanical ventilation. Currently sedated, orally intubated on mechanical ventilation. Post intubation chest x-ray suggested fluid overload for which she was given Lasix 40 mg IV with good response having made about 2.5 L urine the last 7 hours. 09/01: Remains sedated, orally intubated on mechanical ventilation. Diuresing well with Lasix. Awaiting EGD in a.m. 09/02: Little progress. CXR clearing nicely. Continue diuresis, tolerate hypernatremia. 09/03: Good diuretic response. CRISTHIAN today with no valvar pathology. 09/04: Too weak to tolerate extubation. Will require trach. 09/05: Sedated, arousable, following commands. Tolerated C Pap trial for 9 hours yesterday with pressure support +10. Tolerating tube feeds. 09/06: Extubated yesterday. Chest x-ray reveals likely mucous plugging in left lung garcia. Currently on nonrebreather mask. Planning of insomnia and thick secretions that he is unable to cough up. 09/07 Patient s/p reintubation and bronch 09/06 mucous plugs in left main stem bronchus sedated with Diprivan and Fentanyl. Afebrile. For possible trach tomorrow. 09/08 No acute events overnight. Sedated with Diprivan and Fentanyl. Afebrile. For trach today. 09/09 No acute events overnight. Sedated and intubated. s/p trach yesterday for PEG tube placement today. 09/10 Patient remains sedated and on ventilator via trach. s/p EGD yesterday PEG tube couldn't be placed endoscopically due to hernia. Surgery consulted for J-tube placement. Afebrile. 09/11 No acute events overnight. Sedated with Diprivan, Fentanyl and intubated. Afebrile. Tolerating tube feeds. 09/12 Patient is off Diprivan remains on Fentanyl infusion tolerated CPAP trials for several hrs and TP's x 2 hrs yesterday now on TP with 50% FIO2. Afebrile. 09/13 Patient tolerated TP's all day yesterday placed on PRVC/AC mode overnight. TF held for high residuals. Afebrile. On Fentanyl infusion however he is awake, restless. 09/14 No acute events overnight. Tolerated TP's all day yesterday placed back on ventilator overnight. On Fentanyl infusion. Afebrile. Repeat KUB this morning showed ileus. 09/15 Patient is off fentanyl infusion and is on Precedex drip pulled his NGT overnight. KUB this morning showed improvements in gaseous distention of bowel. 09/16 Yesterday afternoon an NG tube was placed patient was noted to have tube feeds with possible aspiration.NGT placed this am, KUB pending. 09/17: no acute events overnight. tolerated cpap. back on rate overnight. this morning on trach collar. 09/18: prior history of constipation, now with diarrhea. otherwise, awaiting placement. 09/19: diarrhea improving. still awaiting placement. 09/20: still doing well. on trach collar this morning on my evaluation. insurance has not yet approved placement. 09/21: tired out on trach collar yesterday. placed intermittently on cpap. insurance denied LTAC. will work towards [id number]. 09/22: had [id number] today. insurance continues to request permanent surgical feeding access to go to LTAC. My medical opinion is that patient is clinically improving and tolerating DHT without complication, and could safely be fed through DHT for the coming weeks, and I anticipate his dysphagia to resolve as his strength improves. I do not see a clinical indication for permanent surgical gastric access. We also are not a rehab center, and he is not getting medically appropriate care for his level of medical need. He does not require ICU admission, and medically would be more appropriate for LTAC. 09/23: transferred to [facility]. doing well. tachycardic this morning. diltiazem changed from QID to q6hr for more even distribution. insurance company denied admission to LTAC. will continue to pursue this as an option. otherwise, OOB to chair daily. still working with speech. Subjective 09/24: did not sleep well overnight. agitated. awake most of the night. I removed stay sutures from trach this morning. Objective Vital Signs Date Time Temp Pulse Resp B/P Pulse Ox O2 Delivery O2 Flow Rate FiO2 09/24/16 03:50 93 50 09/24/16 02:00 114 09/24/16 02:00 45 131/68 09/24/16 00:00 98.5 09/23/16 08:10 Trach Collar 09/22/16 20:47 6.00 Intake and Output 09/23/16 09/23/16 09/24/16 08:00 16:00 00:00 Intake Total 913 ml 1553 ml 746 ml Output Total 800 ml 850 ml 850 ml Balance 113 ml 703 ml -104 ml Result Diagram: 09/24/16 0431 09/24/16 0431 Imaging Last Impressions Abdomen X-Ray 09/15/16 0600 Signed Impressions: Service Date/Time: Thursday, September 15, 2016 03:16 - CONCLUSION: 1. Improved gaseous distention of bowel since September 14. Mild distention persists. 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 There is concentric mural thrombus. This aneurysm is not amenable to thrombin injection. Polo Moore Jr., MD Lung Scan-VQ Nuclear Medicine 08/29/16 0000 Signed Impressions: Service Date/Time: Monday, August 29, 2016 10:20 - CONCLUSION: Low probability for pulmonary embolus. Lex Lopez MD Brain MRI 08/27/16 0000 Signed Impressions: Service Date/Time: August 15:13 - CONCLUSION: No evidence of acute infarct, hemorrhage, mass or edema. No findings to suggest significant anoxic injury. Kit Power MD Renal Ultrasound 08/25/16 Signed Impressions: Service Date/Time: Wednesday, August 24, 2016 21:53 - CONCLUSION: 1. There is no hydronephrosis. Both kidneys demonstrate mild increased echotexture of the parenchyma suggesting medical renal disease. 2. Trace perihepatic free fluid and bilateral pleural effusions. Lex Malik MD Chest CT 08/25/16 Signed Impressions: Service Date/Time: Thursday, August 25, 2016 21:20 - CONCLUSION: 1. Bilateral pneumonia and aspiration would be in the differential. There is dependent consolidation/atelectasis and small effusions of the bases as well. 2. Upper limits of normal to mildly enlarged mediastinal lymph nodes, most likely reactive. 3. Coronary artery calcification. 4. Right rib fractures, including acute fractures laterally of the third, fourth and fifth. There are old, healed fractures anteriorly of the right second and third ribs.. Lex Lopez MD Abdomen/Pelvis CT 08/25/16 0000 Signed Impressions: Service Date/Time: Thursday, August 25, 2016 20:20 - CONCLUSION: 1. Ventral hernia containing small bowel and with associated small bowel obstruction. The defect is broad; I believe the obstruction is probably related to scarring and/or adhesions within the hernia sac. I don't see a mass. 2. Distended stomach despite NG tube present. 3. Severe aortoiliac atherosclerosis. No aneurysm. Lex Lopez MD Objective Remarks GENERAL: Patient is 71 yo lying in bed in NAD on vent this AM. SKIN: Warm and dry. HEAD: Normocephalic. EYES: No scleral icterus. No injection or drainage. NECK: trachea midline. No JVD. Trach in place CARDIOVASCULAR: Regular rate and rhythm without murmurs, gallops, or rubs. RESPIRATORY: Breath sounds equal bilaterally. No accessory muscle use. GASTROINTESTINAL: Abdomen soft, non-tender, nondistended. MUSCULOSKELETAL: No cyanosis, +1 edema. Neuro: Asleep this morning, but arousable. A/P Assessment and Plan Neuro/Psych: Status post CPR 15 minutes Depression NOS Agitated Delirium Neurochecks per ICU protocol zyprexa 5mg po q8hr for agitation. --start melatonin for sleep --prn breakthrough haldol for agitation --d/c ativan. EEG 08/25 revealed mild to moderate encephalopathy. No epileptiform activity. MRI brain 08/27 revealed no acute findings. Cardiovascular: Cardiac arrest status post CPR Elevated troponin History dyslipidemia History of hypertension PVD Systemic shock likely secondary to sepsis/aspiration/small bowel obstruction Possible femoral pseudoaneurysm Monitor HR and BP keep MAP>65mmHg Cardizem 60mg QID, Hydralazine 50mg Q8 Cardiac arrest status post CPR. s/p aggressive fluid resuscitation. 5 units PRBCs transfused to date minimal troponin elevation following cardiac arrest noted Echo 2D revealed EF 35-40%. Moderate LVH. Mitral valve calcified. Mild TR. Pulmonary: Acute respiratory failure secondary to aspiration pneumonia- Reintubated 09/06 s/p Trach on 09/08 End-stage COPD. Oxygen dependent FEV1 28%, FVC 1.6. S/P Aspiration 09/15 s/p reintubation and bronch 09/06 mucous plugs in left main stem bronchus Continue with vent support keep sat >92% Bronchodilators, Pulmicort twice a day CPAP /TP trials as anneliese. still failing continuous TP for tachypnea and dyspnea. still too week. really needs aggressive pulmonary rehab with LTAC. prednisone taper. VQ scan low probability 08/29 ICU vent bundle, pulm toilet, trach care F/U CXR GI: Small bowel obstruction - resolved Upper GI bleed plus esophageal rule out aorto esophageal fistula History of Ashley esophagitis History of colonic polyps History of ventral hernia status post repair last by Dr. Roberts Diarrhea Repeat KUB abdomen showed improvements in gaseous distention of bowel. on Reglan 5mg IV Q8, Senna, Lactulose, Colace. increase tube feeds to goal. I think from a GI standpoint, the plan should remain to use nasogastric access at this time. continue frequent speech eval for swallowing. s/p EGD 09/09: Deformed pylorus/antrum, nodular mucosa-multiple biopsies taken esophagitis distal esophagus-biopsy unable to place peg endoscopically due to hiatal hernia. CT abdomen/pelvis revealed possible small bowel obstruction at level of ventral hernia. Severe aortoiliac disease. Dr. Roberts/general surgery evaluated. Very poor surgical candidate this time. EGD 08/25 revealed esophageal nipple. Clots noted within the gastric contents without active bleeding. Protonix for GI prophylaxis Hold Bowel regimen for diarrhea. retirement nutrition plan: Feeding per DHT. the patient does not have a contraindication to replacement of DHT if it comes out accidentally. Continue speech/swallow eval and strengthening. I do think he will be strong enough to eat PO in the near future and will not medically require surgical feeding tube. Surgical feeding tube high risk given hernia. risks outweigh benefits. we have a defined long-term enteral feeding plan. Renal/: Acute kidney injury- resolved Hypernatremia History of bladder outlet obstruction Monitor renal function, I/O's, electrolytes replacement per protocol. Replete K , Potassium 3.3 Free water flushes 300ml Q6 monitor sodium level with q72h labs. No hydronephrosis on CT abdomen/pelvis ID: [id number] Sepsis Fungemia Off abx. monitor for signs of infections ( Fever, WBC) s/p course of levaquin 09/10 - 09/16 s/p course of micafungin for fungemia Pertinent cultures 09/08 Bronch: S. Maltophilia, 09/06 Bronch- S. Maltophilia, 09/03 - blood culture - no growth 09/02 - blood culture - no growth 08/27 - blood from central line -Ashley Glabrata 08/27 -arterial line blood - pending 08/26 - sputum -Serratia 08/25 - blood cultures 2 -Ashley 08/25 - urine -no growth 08/22 - blood cultures 2 - no growth 08/21 - urine - no growth 08/20 - blood cultures 2 - 1 out of 4 staph epi Endocrine: Chronic prednisone use secondary to COPD SSI for glycemic control as needed. Heme: s/p Acute blood loss anemia History of prostate cancer Status post 4 units PRBCs ands 2 units FFP on 08/24. Given one unit PRBCs 08/26 Monitor CBC H/H stable. MSK: PT/OT evaluate and treat Access - peripheral IV's, PICC line placed 09/11 Prophylaxis - GI -Protonix - DVT - SCD/ heparin 5000 u Sq Q12- cleared by GI. H/H stable. product engineering manager bridgette for placement. I do not have a medical indication to keep him in an acute care setting. Papi Keating MD Sep 24, 2016 06:21
[2016-09-24] MEDS: RESP: BUDESONIDE 0.5 MG/2 ML NEB NEB SCH ×2 (07:49→19:36)
[2016-09-24] MEDS: CHLORHEXIDINE GLUCONATE 0.12% 15 ML CUP SCH ×2 (08:00→20:00)
[2016-09-24] MEDS: PANTOPRAZOLE SODIUM 40 MG VIAL IV PUSH SCH ×2 (08:38→20:27)
[2016-09-24] MEDS: HEPARIN SODIUM - SQ 10,000 UNITS/ML VIAL SQ SCH ×2 (08:39→20:30)
[2016-09-24] MEDS: DOXAZOSIN MESYLATE 2 MG TAB PO SCH (08:40)
[2016-09-24] MEDS: MULTIVITAMINS/MINERALS THERAPEUTIC TAB PO SCH (08:40)
[2016-09-24] MEDS: DOCUSATE SODIUM 100 MG/10 ML UDC PO SCH ×2 (08:41→20:28)
[2016-09-24] MEDS: LACTULOSE SYRUP 20 GM/30 ML CUP PO SCH (08:41)
[2016-09-24] MEDS: SENNOSIDES SYRUP 8.8 MG/5 ML CUP PO SCH (08:42)
[2016-09-24] MEDS: SODIUM CHLORIDE 0.9% FLUSH 10 ML FLUSH IV FLUSH SCH (08:42)
[2016-09-24] MEDS: SODIUM CHLORIDE 0.9% FLUSH 5 ML FLUSH IVF SCH (09:00)
[2016-09-24] MEDS: HALOPERIDOL LACTATE 5 MG/ML AMP IV PRN ×2 (11:24→20:28)
[2016-09-24] MEDS: COLLAGENASE OINT 30 GM TUBE TOP SCH (11:25)
[2016-09-24] MEDS ORDERED: LIDOCAINE HCL 1% 50 ML VIAL PRN (16:00)
[2016-09-24] MEDS: RESP: ALBUTEROL 2.5 MG/IPRATROPIUM 0.5 MG NEB (PRN) INH (19:36)
[2016-09-24] MEDS: MELATONIN 5 MG TAB PO SCH (20:29)
[2016-09-25] VITALS (34 sets, daily range): BP systolic 78–126; BP diastolic 46–69; PULSE 78–120; RESP 15–36; TEMP 98.4–99.9; O2SAT 84–100
[2016-09-25] MEDS: INSULIN NovoLIN REGULAR SUPPLEMENTAL SCALE SQ SCH ×4 (01:06→18:00)
[2016-09-25] MEDS: DILTIAZEM HCL 60 MG TAB PO SCH ×4 (01:07→17:33)
[2016-09-25] MEDS: HALOPERIDOL LACTATE 5 MG/ML AMP IV PRN ×2 (01:07→20:38)
[2016-09-25] MEDS: METOCLOPRAMIDE HCL 10 MG/2 ML VIAL IV PUSH SCH ×3 (01:07→16:00)
[2016-09-25] MEDS: OLANZapine ODT 5 MG TAB PO SCH ×3 (03:24→17:33)
[2016-09-25] MEDS: HYDROmorphone HCL PF 1 MG/ML VIAL IV PRN ×2 (03:34→16:56)
[2016-09-25] MEDS: FREE WATER G-TUBE SCH ×4 (06:00→18:00)
[2016-09-25] MEDS: NYSTATIN 100,000 U/GM PWD 15 GM BTL TOPICAL SCH ×3 (06:41→20:41)
[2016-09-25] MEDS: hydrALAZINE HCL 50 MG TAB PO SCH ×3 (06:41→20:38)
--- NOTE | 2016-09-25 06:54 | HHI.CCPN ---
Subjective Remarks/Hospital Course 08/24: 71 Year-old male with a medical history significant for COPD on home oxygen who was recently admitted with suspected sepsis/H And was initiated on IV antibiotics and steroids. He had recently been evaluated by GI and underwent EGD on 08/10/2016 and was found to have moderate esophagitis, mild gastritis with pathology subsequently showing Ashley esophagitis as well as colonoscopy on 08/11/2016 with polypectomy and ablation of polyp in ascending colon with hot snare. Patient has been dealing with constipation since his admission. Today when he was trying to have a bowel movement he suddenly became less responsive and then had a large emesis which resulted in aspiration and hemodynamic collapse. Patient initially had large volume emesis with dark maroon blood. CODE BLUE cardiac arrest code was activated. On my arrival patient was in bed CPR had been initiated. Significant gastric contents was still being suctioned out of his oral cavity. ACLS protocol was continued. Patient was intubated following vigorous suctioning of gastric contents from oral cavity as well as with placement of NG tube which is hooked up to suction and about 1.5 L of gastric contents being suctioned out which appeared to be dark maroon in color. Patient initially had a pulse when CODE BLUE was called and subsequently went in PEA arrest followed by asystole during ACLS and then V. fib for which he was defibrillated with 200 J 1, CPR/ACLS protocol was continued and patient eventually had return of spontaneous circulation after about 15 minutes of CPR/ACLS. Patient was transferred to [facility] and placed on mechanical ventilation. I emergently placed left femoral central line for central vascular access and he was started on Levophed for pressor support. 2 units of O- 1 crossmatch blood were ordered and transfused stat. He also received 1 L of normal saline bolus following return of spontaneous circulation. Stat labs were ordered. His hemoglobin on ABG done post resuscitation was 5.6. I did order Protonix 80 mg IV stat followed by 8 mg per hour IV infusion. Patient remained encephalopathic though was minimally responsive following transfer to the ICU. GI consult was requested and I spoke with Dr. Zamarripa at bedside on his arrival. History was obtained by reviewing records, discussion with family/ GI as well as nursing staff. According to patient's daughter he has not been doing well for the last few months in terms of his breathing and has been using his home oxygen more often. He gets extremely short of breath even with the least exertion. 08/25: Remains encephalopathic/ sedated, [facility]. Transiently off levophed last night however back to 11 mcg/min currently. Hgb up to 9.4 following 4 units PRBCs transfused last night. 08/26: Tmax 99. Some unresponsive on the ventilator. CT abdomen/pelvis less than revealed small bowel obstruction at site of ventral hernia. No further bleeding noted. Gastric output approximately 700 cc. No bowel movement. 08/27: Tmax 99.7. Currently afebrile. Positive BM overnight approximately 1 L according to RN. No blood noted. 100 cc from gastric tube overnight. Hemoglobin corrected a properly. Likely dilutional. Noted fungemia currently issue. Opens eyes to voice. 08/28: Tmax 99.1. No BMs overnight. Minimal gastric tube output. Hemoglobin stable 9.5. Opens eyes to voice. Not following commands. Appears with singultus this morning. 08/29: 20 beat run of wide complex tachycardia overnight. Noted potassium 3.2. This is been replaced. We'll recheck this afternoon. Circuit exchange yesterday. Patient tolerating pressure control ventilation much better than PRVC/AC ventilation is low probably VQ scan. Less FiO2 requirements. No BM past 24 hour. 08/30: Unable to wean ventilator. 08/31: Patient was extubated on 08/30 however became tachypneic with use of accessory muscles of respiration and required reintubation around 6:30 PM last night and was placed back on mechanical ventilation. Currently sedated, orally intubated on mechanical ventilation. Post intubation chest x-ray suggested fluid overload for which she was given Lasix 40 mg IV with good response having made about 2.5 L urine the last 7 hours. 09/01: Remains sedated, orally intubated on mechanical ventilation. Diuresing well with Lasix. Awaiting EGD in a.m. 09/02: Little progress. CXR clearing nicely. Continue diuresis, tolerate hypernatremia. 09/03: Good diuretic response. CRISTHIAN today with no valvar pathology. 09/04: Too weak to tolerate extubation. Will require trach. 09/05: Sedated, arousable, following commands. Tolerated C Pap trial for 9 hours yesterday with pressure support +10. Tolerating tube feeds. 09/06: Extubated yesterday. Chest x-ray reveals likely mucous plugging in left lung garcia. Currently on nonrebreather mask. Planning of insomnia and thick secretions that he is unable to cough up. 09/07 Patient s/p reintubation and bronch 09/06 mucous plugs in left main stem bronchus sedated with Diprivan and Fentanyl. Afebrile. For possible trach tomorrow. 09/08 No acute events overnight. Sedated with Diprivan and Fentanyl. Afebrile. For trach today. 09/09 No acute events overnight. Sedated and intubated. s/p trach yesterday for PEG tube placement today. 09/10 Patient remains sedated and on ventilator via trach. s/p EGD yesterday PEG tube couldn't be placed endoscopically due to hernia. Surgery consulted for J-tube placement. Afebrile. 09/11 No acute events overnight. Sedated with Diprivan, Fentanyl and intubated. Afebrile. Tolerating tube feeds. 09/12 Patient is off Diprivan remains on Fentanyl infusion tolerated CPAP trials for several hrs and TP's x 2 hrs yesterday now on TP with 50% FIO2. Afebrile. 09/13 Patient tolerated TP's all day yesterday placed on PRVC/AC mode overnight. TF held for high residuals. Afebrile. On Fentanyl infusion however he is awake, restless. 09/14 No acute events overnight. Tolerated TP's all day yesterday placed back on ventilator overnight. On Fentanyl infusion. Afebrile. Repeat KUB this morning showed ileus. 09/15 Patient is off fentanyl infusion and is on Precedex drip pulled his NGT overnight. KUB this morning showed improvements in gaseous distention of bowel. 09/16 Yesterday afternoon an NG tube was placed patient was noted to have tube feeds with possible aspiration.NGT placed this am, KUB pending. 09/17: no acute events overnight. tolerated cpap. back on rate overnight. this morning on trach collar. 09/18: prior history of constipation, now with diarrhea. otherwise, awaiting placement. 09/19: diarrhea improving. still awaiting placement. 09/20: still doing well. on trach collar this morning on my evaluation. insurance has not yet approved placement. 09/21: tired out on trach collar yesterday. placed intermittently on cpap. insurance denied LTAC. will work towards [id number]. 09/22: had [id number] today. insurance continues to request permanent surgical feeding access to go to LTAC. My medical opinion is that patient is clinically improving and tolerating DHT without complication, and could safely be fed through DHT for the coming weeks, and I anticipate his dysphagia to resolve as his strength improves. I do not see a clinical indication for permanent surgical gastric access. We also are not a rehab center, and he is not getting medically appropriate care for his level of medical need. He does not require ICU admission, and medically would be more appropriate for LTAC. 09/23: transferred to [facility]. doing well. tachycardic this morning. diltiazem changed from QID to q6hr for more even distribution. insurance company denied admission to LTAC. will continue to pursue this as an option. otherwise, OOB to chair daily. still working with speech. 09/24: did not sleep well overnight. agitated. awake most of the night. I removed stay sutures from trach this morning. Subjective 09/25: Received Haldol overnight, resting now. Not agitated. On PRVC/AC. CPAP trails to resume today. Somnolent but wakes up and follows commands Objective Vital Signs Date Time Temp Pulse Resp B/P Pulse Ox O2 Delivery O2 Flow Rate FiO2 09/25/16 05:00 98 40 09/24/16 23:36 116 22 125/72 09/24/16 19:55 99.2 09/23/16 08:10 Trach Collar 09/22/16 20:47 6.00 Intake and Output 09/24/16 09/24/16 09/25/16 08:00 16:00 00:00 Intake Total 575 ml 817 ml 559 ml Output Total 1000 ml 600 ml 350 ml Balance -425 ml 217 ml 209 ml Result Diagram: 09/24/16 0431 09/24/16 0431 Imaging Last Impressions Abdomen X-Ray 09/15/16 0600 Signed Impressions: Service Date/Time: Thursday, September 15, 2016 03:16 - CONCLUSION: 1. Improved gaseous distention of bowel since September 14. Mild distention persists. 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 There is concentric mural thrombus. This aneurysm is not amenable to thrombin injection. Polo Moore Jr., MD Lung Scan-V Nuclear Medicine 08/29/16 0000 Signed Impressions: Service Date/Time: Monday, August 29, 2016 10:20 - CONCLUSION: Low probability for pulmonary embolus. Lex Lopez MD Brain MRI 08/27/16 0000 Signed Impressions: Service Date/Time: August 15:13 - CONCLUSION: No evidence of acute infarct, hemorrhage, mass or edema. No findings to suggest significant anoxic injury. Kit Power MD Renal Ultrasound 08/25/16 0000 Signed Impressions: Service Date/Time: Wednesday, August 24, 2016 21:53 - CONCLUSION: 1. There is no hydronephrosis. Both kidneys demonstrate mild increased echotexture of the parenchyma suggesting medical renal disease. 2. Trace perihepatic free fluid and bilateral pleural effusions. Lex Malik MD Chest CT 08/25/16 0000 Signed Impressions: Service Date/Time: Thursday, August 25, 2016 21:20 - CONCLUSION: 1. Bilateral pneumonia and aspiration would be in the differential. There is dependent consolidation/atelectasis and small effusions of the bases as well. 2. Upper limits of normal to mildly enlarged mediastinal lymph nodes, most likely reactive. 3. Coronary artery calcification. 4. Right rib fractures, including acute fractures laterally of the third, fourth and fifth. There are old, healed fractures anteriorly of the right second and third ribs.. Lex Lopez MD Abdomen/Pelvis CT 08/25/16 0000 Signed Impressions: Service Date/Time: Thursday, August 25, 2016 20:20 - CONCLUSION: 1. Ventral hernia containing small bowel and with associated small bowel obstruction. The defect is broad; I believe the obstruction is probably related to scarring and/or adhesions within the hernia sac. I don't see a mass. 2. Distended stomach despite NG tube present. 3. Severe aortoiliac atherosclerosis. No aneurysm. Lex Lopez MD Objective Remarks GENERAL: Patient is 71 yo lying in bed in NAD on vent this AM. SKIN: Warm and dry. HEAD: Normocephalic. EYES: No scleral icterus. No injection or drainage. NECK: trachea midline. No JVD. Trach in place CARDIOVASCULAR: Regular rate and rhythm without murmurs, gallops, or rubs. RESPIRATORY: Breath sounds equal bilaterally. No accessory muscle use. GASTROINTESTINAL: Abdomen soft, non-tender, nondistended. MUSCULOSKELETAL: No cyanosis, +1 edema. Neuro: Asleep this morning, but arousable, follows commands in UE A/P Assessment and Plan Neuro/Psych: Status post CPR 15 minutes Depression NOS Agitated Delirium --Neurochecks per ICU protocol --zyprexa 5mg po q8hr for agitation. -Melatonin q hs for sleep --prn breakthrough haldol for agitation --d/cd ativan. --EEG 08/25 revealed mild to moderate encephalopathy. No epileptiform activity. --MRI brain 08/27 revealed no acute findings. Cardiovascular: Cardiac arrest status post CPR Elevated troponin Systemic shock likely secondary to sepsis/aspiration/small bowel obstruction- resolved History dyslipidemia History of hypertension PVD Possible femoral pseudoaneurysm Monitor HR and BP keep MAP>65mmHg Cardizem 60mg QID, Hydralazine 50mg Q8 Cardiac arrest status post CPR. s/p aggressive fluid resuscitation. 5 units PRBCs transfused to date minimal troponin elevation following cardiac arrest noted Echo 2D revealed EF 35-40%. Moderate LVH. Mitral valve calcified. Mild TR. Pulmonary: Acute respiratory failure secondary to aspiration pneumonia- Reintubated 09/06 s/p Trach on 09/08 End-stage COPD. Oxygen dependent FEV1 28%, FVC 1.6. S/P Aspiration 09/15 s/p reintubation and bronch 09/06 mucous plugs in left main stem bronchus Continue with vent support keep sat >90% Bronchodilators, Pulmicort twice a day CPAP /TP trials as anneliese. still failing continuous TP for tachypnea and dyspnea. still too week. Needs aggressive pulmonary rehab with LTAC. prednisone taper. VQ scan low probability 08/29 ICU vent bundle, pulm toilet, trach care F/U CXR in am GI: Small bowel obstruction - resolved Upper GI bleed plus esophageal rule out aorto esophageal fistula History of Ashley esophagitis History of colonic polyps History of ventral hernia status post repair last by Dr. Roberts Diarrhea Repeat KUB abdomen showed improvements in gaseous distention of bowel. on Reglan 5mg IV Q8, Senna, Lactulose, Colace. having BM Tube feeds to goal. I think from a GI standpoint, the plan should remain to use nasogastric access at this time. continue frequent speech eval for swallowing. s/p EGD 09/09: Deformed pylorus/antrum, nodular mucosa-multiple biopsies taken esophagitis distal esophagus-biopsy unable to place peg endoscopically due to hiatal hernia. CT abdomen/pelvis revealed possible small bowel obstruction at level of ventral hernia. Severe aortoiliac disease. Dr. Roberts/general surgery evaluated. Very poor surgical candidate this time. EGD 08/25 revealed esophageal nipple. Clots noted within the gastric contents without active bleeding. Protonix for GI prophylaxis Hold Bowel regimen for diarrhea. terminal carman nutrition plan: Feeding per DHT. the patient does not have a contraindication to replacement of DHT if it comes out accidentally. Continue speech/swallow eval and strengthening. I do think he will be strong enough to eat PO in the near future and will not medically require surgical feeding tube. Surgical feeding tube high risk given hernia. risks outweigh benefits. we have a defined long-term enteral feeding plan. Renal/: Acute kidney injury- resolved Hypernatremia History of bladder outlet obstruction Monitor renal function, I/O's, electrolytes replacement per protocol. Check CMP mag today Free water flushes 300ml Q6 monitor sodium level with q72h labs. No hydronephrosis on CT abdomen/pelvis ID: [id number] Sepsis Fungemia Off abx. monitor for signs of infections ( Fever, WBC) s/p course of levaquin 09/10 - 09/16 s/p course of micafungin for fungemia Pertinent cultures 09/08 Bronch: S. Maltophilia, 09/06 Bronch- S. Maltophilia, 09/03 - blood culture - no growth 09/02 - blood culture - no growth 08/27 - blood from central line -Ashley Gl[place] 08/27 -arterial line blood - pending 08/26 - sputum -Serratia 08/25 - blood cultures 2 -Ashley 08/25 - urine -no growth 08/22 - blood cultures 2 - no growth 08/21 - urine - no growth / - blood cultures 2 - 1 out of 4 staph epi Endocrine: Chronic prednisone use secondary to COPD SSI for glycemic control as needed. Heme: s/p Acute blood loss anemia History of prostate cancer Status post 4 units PRBCs ands 2 units FFP on 08/24. Given one unit PRBCs 08/26 Monitor CBC H/H stable. MSK: PT/OT evaluate and treat Access - peripheral IV's, PICC line placed 09/11 Prophylaxis - GI -Protonix - DVT - SCD/ heparin 5000 u Sq Q12- cleared by GI. H/H stable. support manager eval for LATC placement. Isaias Burnett MD Sep 25, 2016 06:54 Isaias Burnett MD Sep 25, 2016 06:54
[2016-09-25] MEDS: RESP: ALBUTEROL 2.5 MG/IPRATROPIUM 0.5 MG NEB (PRN) INH ×2 (07:41→19:53)
[2016-09-25] MEDS: RESP: BUDESONIDE 0.5 MG/2 ML NEB NEB SCH ×2 (07:41→19:53)
[2016-09-25] MEDS: CHLORHEXIDINE GLUCONATE 0.12% 15 ML CUP SCH ×2 (08:00→20:00)
[2016-09-25] MEDS: SODIUM CHLORIDE 0.9% FLUSH 10 ML FLUSH IV FLUSH SCH (09:00)
[2016-09-25] MEDS: SODIUM CHLORIDE 0.9% FLUSH 5 ML FLUSH IVF SCH (09:00)
[2016-09-25] MEDS: DOXAZOSIN MESYLATE 2 MG TAB PO SCH (09:00)
[2016-09-25] MEDS: LACTULOSE SYRUP 20 GM/30 ML CUP PO SCH (09:20)
[2016-09-25] MEDS: SENNOSIDES SYRUP 8.8 MG/5 ML CUP PO SCH (09:20)
[2016-09-25] MEDS: DOCUSATE SODIUM 100 MG/10 ML UDC PO SCH ×2 (09:21→20:39)
[2016-09-25] MEDS: PANTOPRAZOLE SODIUM 40 MG VIAL IV PUSH SCH ×2 (09:21→20:38)
[2016-09-25] MEDS: HEPARIN SODIUM - SQ 10,000 UNITS/ML VIAL SQ SCH ×2 (09:21→20:38)
[2016-09-25] MEDS: COLLAGENASE OINT 30 GM TUBE TOP SCH (09:22)
[2016-09-25] MEDS: MULTIVITAMINS/MINERALS THERAPEUTIC TAB PO SCH (09:22)
[2016-09-25] MEDS: MELATONIN 5 MG TAB PO SCH (20:38)
[2016-09-26] VITALS (34 sets, daily range): BP systolic 91–149; BP diastolic 36–79; PULSE 98–136; RESP 15–41; TEMP 97.9–98.6; O2SAT 89–100
[2016-09-26] MEDS: HYDROmorphone HCL PF 1 MG/ML VIAL IV PRN ×3 (00:04→22:07)
[2016-09-26] MEDS: INSULIN NovoLIN REGULAR SUPPLEMENTAL SCALE SQ SCH ×4 (00:10→18:00)
[2016-09-26] MEDS: OLANZapine ODT 5 MG TAB PO SCH ×3 (02:05→18:00)
[2016-09-26] MEDS: HALOPERIDOL LACTATE 5 MG/ML AMP IV PRN ×2 (02:05→20:18)
[2016-09-26] MEDS: DILTIAZEM HCL 60 MG TAB PO SCH ×4 (05:39→18:00)
[2016-09-26] MEDS: hydrALAZINE HCL 50 MG TAB PO SCH ×3 (05:39→19:56)
[2016-09-26] MEDS: FREE WATER G-TUBE SCH ×4 (05:40→18:00)
[2016-09-26] MEDS: NYSTATIN 100,000 U/GM PWD 15 GM BTL TOPICAL SCH ×3 (05:43→19:59)
--- NOTE | 2016-09-26 06:45 | HHI.CCPN ---
Subjective Remarks/Hospital Course 08/24: 71 Year-old male with a medical history significant for COPD on home oxygen who was recently admitted with suspected sepsis/H And was initiated on IV antibiotics and steroids. He had recently been evaluated by GI and underwent EGD on 08/10/2016 and was found to have moderate esophagitis, mild gastritis with pathology subsequently showing Ashley esophagitis as well as colonoscopy on 08/11/2016 with polypectomy and ablation of polyp in ascending colon with hot snare. Patient has been dealing with constipation since his admission. Today when he was trying to have a bowel movement he suddenly became less responsive and then had a large emesis which resulted in aspiration and hemodynamic collapse. Patient initially had large volume emesis with dark maroon blood. CODE BLUE cardiac arrest code was activated. On my arrival patient was in bed CPR had been initiated. Significant gastric contents was still being suctioned out of his oral cavity. ACLS protocol was continued. Patient was intubated following vigorous suctioning of gastric contents from oral cavity as well as with placement of NG tube which is hooked up to suction and about 1.5 L of gastric contents being suctioned out which appeared to be dark maroon in color. Patient initially had a pulse when CODE BLUE was called and subsequently went in PEA arrest followed by asystole during ACLS and then V. fib for which he was defibrillated with 200 J 1, CPR/ACLS protocol was continued and patient eventually had return of spontaneous circulation after about 15 minutes of CPR/ACLS. Patient was transferred to [facility] and placed on mechanical ventilation. I emergently placed left femoral central line for central vascular access and he was started on Levophed for pressor support. 2 units of O- 1 crossmatch blood were ordered and transfused stat. He also received 1 L of normal saline bolus following return of spontaneous circulation. Stat labs were ordered. His hemoglobin on ABG done post resuscitation was 5.6. I did order Protonix 80 mg IV stat followed by 8 mg per hour IV infusion. Patient remained encephalopathic though was minimally responsive following transfer to the ICU. GI consult was requested and I spoke with Dr. Zamarripa at bedside on his arrival. History was obtained by reviewing records, discussion with family/ GI as well as nursing staff. According to patient's daughter he has not been doing well for the last few months in terms of his breathing and has been using his home oxygen more often. He gets extremely short of breath even with the least exertion. 08/25: Remains encephalopathic/ sedated, [facility]. Transiently off levophed last night however back to 11 mcg/min currently. Hgb up to 9.4 following 4 units PRBCs transfused last night. 08/26: Tmax 99. Some unresponsive on the ventilator. CT abdomen/pelvis less than revealed small bowel obstruction at site of ventral hernia. No further bleeding noted. Gastric output approximately 700 cc. No bowel movement. 08/27: Tmax 99.7. Currently afebrile. Positive BM overnight approximately 1 L according to RN. No blood noted. 100 cc from gastric tube overnight. Hemoglobin corrected a properly. Likely dilutional. Noted fungemia currently issue. Opens eyes to voice. 08/28: Tmax 99.1. No BMs overnight. Minimal gastric tube output. Hemoglobin stable 9.5. Opens eyes to voice. Not following commands. Appears with singultus this morning. 08/29: 20 beat run of wide complex tachycardia overnight. Noted potassium 3.2. This is been replaced. We'll recheck this afternoon. Circuit exchange yesterday. Patient tolerating pressure control ventilation much better than PRVC/AC ventilation is low probably VQ scan. Less FiO2 requirements. No BM past 24 hour. 08/30: Unable to wean ventilator. 08/31: Patient was extubated on 08/30 however became tachypneic with use of accessory muscles of respiration and required reintubation around 6:30 PM last night and was placed back on mechanical ventilation. Currently sedated, orally intubated on mechanical ventilation. Post intubation chest x-ray suggested fluid overload for which she was given Lasix 40 mg IV with good response having made about 2.5 L urine the last 7 hours. 09/01: Remains sedated, orally intubated on mechanical ventilation. Diuresing well with Lasix. Awaiting EGD in a.m. 09/02: Little progress. CXR clearing nicely. Continue diuresis, tolerate hypernatremia. 09/03: Good diuretic response. CRISTHIAN today with no valvar pathology. 09/04: Too weak to tolerate extubation. Will require trach. 09/05: Sedated, arousable, following commands. Tolerated C Pap trial for 9 hours yesterday with pressure support +10. Tolerating tube feeds. 09/06: Extubated yesterday. Chest x-ray reveals likely mucous plugging in left lung garcia. Currently on nonrebreather mask. Planning of insomnia and thick secretions that he is unable to cough up. 09/07 Patient s/p reintubation and bronch 09/06 mucous plugs in left main stem bronchus sedated with Diprivan and Fentanyl. Afebrile. For possible trach tomorrow. 09/08 No acute events overnight. Sedated with Diprivan and Fentanyl. Afebrile. For trach today. 09/09 No acute events overnight. Sedated and intubated. s/p trach yesterday for PEG tube placement today. 09/10 Patient remains sedated and on ventilator via trach. s/p EGD yesterday PEG tube couldn't be placed endoscopically due to hernia. Surgery consulted for J-tube placement. Afebrile. 09/11 No acute events overnight. Sedated with Diprivan, Fentanyl and intubated. Afebrile. Tolerating tube feeds. 09/12 Patient is off Diprivan remains on Fentanyl infusion tolerated CPAP trials for several hrs and TP's x 2 hrs yesterday now on TP with 50% FIO2. Afebrile. 09/13 Patient tolerated TP's all day yesterday placed on PRVC/AC mode overnight. TF held for high residuals. Afebrile. On Fentanyl infusion however he is awake, restless. 09/14 No acute events overnight. Tolerated TP's all day yesterday placed back on ventilator overnight. On Fentanyl infusion. Afebrile. Repeat KUB this morning showed ileus. 09/15 Patient is off fentanyl infusion and is on Precedex drip pulled his NGT overnight. KUB this morning showed improvements in gaseous distention of bowel. 09/16 Yesterday afternoon an NG tube was placed patient was noted to have tube feeds with possible aspiration.NGT placed this am, KUB pending. 09/17: no acute events overnight. tolerated cpap. back on rate overnight. this morning on trach collar. 09/18: prior history of constipation, now with diarrhea. otherwise, awaiting placement. 09/19: diarrhea improving. still awaiting placement. 09/20: still doing well. on trach collar this morning on my evaluation. insurance has not yet approved placement. 09/21: tired out on trach collar yesterday. placed intermittently on cpap. insurance denied LTAC. will work towards [id number]. 09/22: had [id number] today. insurance continues to request permanent surgical feeding access to go to LTAC. My medical opinion is that patient is clinically improving and tolerating DHT without complication, and could safely be fed through DHT for the coming weeks, and I anticipate his dysphagia to resolve as his strength improves. I do not see a clinical indication for permanent surgical gastric access. We also are not a rehab center, and he is not getting medically appropriate care for his level of medical need. He does not require ICU admission, and medically would be more appropriate for LTAC. 09/23: transferred to [facility]. doing well. tachycardic this morning. diltiazem changed from QID to q6hr for more even distribution. insurance company denied admission to LTAC. will continue to pursue this as an option. otherwise, OOB to chair daily. still working with speech. 09/24: did not sleep well overnight. agitated. awake most of the night. I removed stay sutures from trach this morning. 09/25: Received Haldol overnight, resting now. Not agitated. On PRVC/AC. CPAP trails to resume today. Somnolent but wakes up and follows commands Subjective 09/26: Continues to have large amount of tracheal secretions. Levaquin restarted sputum culture ordered. Chest x-ray is pending. Did not tolerate CPAP yesterday became tachycardic and hypoxic Objective Vital Signs Date Time Temp Pulse Resp B/P Pulse Ox O2 Delivery O2 Flow Rate FiO2 09/26/16 05:00 104 17 112/54 95 09/26/16 04:20 40 09/26/16 04:00 98.4 09/23/16 08:10 Trach Collar 09/22/16 20:47 6.00 Intake and Output 09/25/16 09/25/16 09/26/16 08:00 16:00 00:00 Intake Total 1029 ml 855 ml 551 ml Output Total 400 ml 550 ml 300 ml Balance 629 ml 305 ml 251 ml Result Diagram: 09/24/16 0431 09/26/16 0600 Imaging Last Impressions Abdomen X-Ray 09/15/16 06 Signed Impressions: Service Date/Time: Thursday, September 15, 2016 03:16 - CONCLUSION: 1. Improved gaseous distention of bowel since September 14. Mild distention persists. 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 There is concentric mural thrombus. This aneurysm is not amenable to thrombin injection. Polo Moore Jr., MD Lung Scan- Nuclear Medicine 08/29/16 0000 Signed Impressions: Service Date/Time: Monday, August 29, 2016 10:20 - CONCLUSION: Low probability for pulmonary embolus. Lex Lopez MD Brain MRI 08/27/16 0000 Signed Impressions: Service Date/Time: August 15:13 - CONCLUSION: No evidence of acute infarct, hemorrhage, mass or edema. No findings to suggest significant anoxic injury. Kit Power MD Renal Ultrasound 08/25/16 0000 Signed Impressions: Service Date/Time: Wednesday, August 24, 2016 21:53 - CONCLUSION: 1. There is no hydronephrosis. Both kidneys demonstrate mild increased echotexture of the parenchyma suggesting medical renal disease. 2. Trace perihepatic free fluid and bilateral pleural effusions. Lex Malik MD Chest CT 08/25/16 0000 Signed Impressions: Service Date/Time: Thursday, August 25, 2016 21:20 - CONCLUSION: 1. Bilateral pneumonia and aspiration would be in the differential. There is dependent consolidation/atelectasis and small effusions of the bases as well. 2. Upper limits of normal to mildly enlarged mediastinal lymph nodes, most likely reactive. 3. Coronary artery calcification. 4. Right rib fractures, including acute fractures laterally of the third, fourth and fifth. There are old, healed fractures anteriorly of the right second and third ribs.. Lex Lopez MD Abdomen/Pelvis CT 08/25/16 0000 Signed Impressions: Service Date/Time: Thursday, August 25, 2016 20:20 - CONCLUSION: 1. Ventral hernia containing small bowel and with associated small bowel obstruction. The defect is broad; I believe the obstruction is probably related to scarring and/or adhesions within the hernia sac. I don't see a mass. 2. Distended stomach despite NG tube present. 3. Severe aortoiliac atherosclerosis. No aneurysm. Lex Lopez MD Objective Remarks GENERAL: Patient is 71 yo lying in bed in bed, anxious SKIN: Warm and dry. HEAD: Normocephalic. EYES: No scleral icterus. No injection or drainage. NECK: trachea midline. No JVD. Trach in place. Large amount of yellow secretions CARDIOVASCULAR: Regular rate and rhythm without murmurs, gallops, or rubs. RESPIRATORY: Breath sounds equal bilaterally, coarse rhonchi bilaterally predominantly left lung garcia. GASTROINTESTINAL: Abdomen soft, non-tender, nondistended. MUSCULOSKELETAL: No cyanosis, +1 edema. NEURO: Awake, follows commands. Anxious Urinary Catheter: Yes Assessment to: Continue A/P Assessment and Plan Neuro/Psych: Status post CPR 15 minutes Depression NOS Agitated Delirium --Neurochecks per ICU protocol --Zyprexa 5mg po q8hr for agitation. --Melatonin q hs for sleep --prn breakthrough haldol for agitation --d/cd ativan due to paradoxical agitation. Start Xanax 0.25 mg by mouth every 8 hours when necessary 09/26 --EEG 08/25 revealed mild to moderate encephalopathy. No epileptiform activity. --MRI brain 08/27 revealed no acute findings. Cardiovascular: Cardiac arrest status post CPR Elevated troponin Systemic shock likely secondary to sepsis/aspiration/small bowel obstruction- resolved History dyslipidemia History of hypertension PVD Possible femoral pseudoaneurysm Monitor HR and BP keep MAP>65mmHg Cardizem 60mg QID, Hydralazine 50mg Q8 Cardiac arrest status post CPR. s/p aggressive fluid resuscitation. 5 units PRBCs transfused to date minimal troponin elevation following cardiac arrest noted Echo 2D revealed EF 35-40%. Moderate LVH. Mitral valve calcified. Mild TR. Pulmonary: Acute respiratory failure secondary to aspiration pneumonia- Reintubated 09/06 s/p Trach on 09/08 End-stage COPD. Oxygen dependent FEV1 28%, FVC 1.6. S/P Aspiration 09/15 s/p reintubation and bronch 09/06 mucous plugs in left main stem bronchus Continue with vent support keep sat >90% Bronchodilators, Pulmicort twice a day CPAP /TP trials as anneliese. still failing continuous CPAP for tachypnea and dyspnea , and hypoxia. Needs aggressive pulmonary rehab with LTAC. Continues to be very weak prednisone taper. VQ scan low probability 08/29 ICU vent bundle, pulm toilet, trach care F/U CXR in am GI: Small bowel obstruction - resolved Upper GI bleed plus esophageal rule out aorto esophageal fistula History of Ashley esophagitis History of colonic polyps History of ventral hernia status post repair last by Dr. Roberts Diarrhea Repeat KUB abdomen showed improvements in gaseous distention of bowel. on Reglan 5mg IV Q8, Senna, Lactulose, Colace. having BM Tube feeds to goal. I think from a GI standpoint, the plan should remain to use nasogastric access at this time. continue frequent speech eval for swallowing. s/p EGD 09/09: Deformed pylorus/antrum, nodular mucosa-multiple biopsies taken esophagitis distal esophagus-biopsy unable to place peg endoscopically due to hiatal hernia. CT abdomen/pelvis revealed possible small bowel obstruction at level of ventral hernia. Severe aortoiliac disease. Dr. Roberts/general surgery evaluated. Very poor surgical candidate this time. EGD 08/25 revealed esophageal nipple. Clots noted within the gastric contents without active bleeding. Protonix for GI prophylaxis Hold Bowel regimen for diarrhea. care home nutrition plan: Feeding per DHT. the patient does not have a contraindication to replacement of DHT if it comes out accidentally. Continue speech/swallow eval and strengthening. I do think he will be strong enough to eat PO in the near future and will not medically require surgical feeding tube. Surgical feeding tube high risk given hernia. risks outweigh benefits. we have a defined long-term enteral feeding plan. Renal/: Acute kidney injury- resolved Hypernatremia History of bladder outlet obstruction Monitor renal function, I/O's, electrolytes replacement per protocol. Free water flushes 300ml Q6 monitor sodium level with q72h labs. No hydronephrosis on CT abdomen/pelvis ID: UTI Sepsis Fungemia Stenotrophomonas HCAP Off abx. monitor for signs of infections ( Fever, WBC) s/p course of levaquin 09/10 - 09/16 s/p course of micafungin for fungemia Restart Levaquin 09/26 secondary to increased secretions send sputum culture Pertinent cultures 09/08 Bronch: S. Maltophilia, 09/06 Bronch- S. Maltophilia, 09/03 - blood culture - no growth 09/02 - blood culture - no growth 08/27 - blood from central line -Ashley Glabrata 08/27 -arterial line blood - pending 08/26 - sputum -Serratia 08/25 - blood cultures 2 -Ashley 08/25 - urine -no growth 08/22 - blood cultures 2 - no growth 08/21 - urine - no growth 08/20 - blood cultures 2 - 1 out of 4 staph epi Endocrine: Chronic prednisone use secondary to COPD SSI for glycemic control as needed. Heme: s/p Acute blood loss anemia History of prostate cancer Status post 4 units PRBCs ands 2 units FFP on 08/24. Given one unit PRBCs 08/26 Monitor CBC H/H stable. MSK: PT/OT evaluate and treat. Attempt up to chair today and daily with PT Access - peripheral IV's, PICC line placed 09/11 Prophylaxis - GI -Protonix - DVT - SCD/ heparin 5000 u Sq Q12- cleared by GI. H/H stable. gallery manager bridgette for LATC placement. Isaias Burnett MD Sep 26, 2016 06:44
--- NOTE | 2016-09-26 06:49 | RADHPO ---
EXAM DATE/TIME: 09/26/2016 06:38 [place] COMPARISON: CHEST SINGLE AP, September 16, 2016, 4:58. INDICATIONS : Shortness of breath. MEDICAL HISTORY : Chronic obstructive pulmonary disease. Emphysema SURGICAL HISTORY : None. ENCOUNTER: Subsequent ACUITY: 1 month PAIN SCORE: Non-responsive. LOCATION: Bilateral chest FINDINGS: The tracheostomy tube, NG tube and right PICC line are well placed. The heart size is normal. There i s hazy density throughout both lungs being worse at the bases. CONCLUSION: Hazy density throughout the lungs likely related to bilateral effusions. Some degree of atelectasis o r consolidation at the lung bases also needs to be considered. Lex Lopez MD on September 26, 2016 at 6:45 Board Certified Radiologist. This report was verified electronically.
[2016-09-26 07:10] LABS: AUTOMATED NEUTROPHIL # 5.4 TH/MM3 (1.8-7.7); BASOPHIL % 0.2 % (0.0-2.0); EOSINOPHIL % 0.6 % (0.0-4.0); LYMPH % 8.7 % (9.0-44.0); LYMPHOCYTE # 0.6 TH/MM3 (1.0-4.8); MEAN CELL VOLUME 91.6 FL (80.0-100.0); MEAN CORPUSCULAR HEMOGLOBIN 30.7 PG (27.0-34.0); MEAN CORPUSCULAR HGB CONC 33.5 % (32.0-36.0); MONO % 11.4 % (0.0-8.0); NEUT % 79.1 % (16.0-70.0); PLATELET COUNT 200 TH/MM3 (150-450); RED BLOOD COUNT 2.16 MIL/MM3 (4.50-5.90); RED CELL DISTRIBUTION WIDTH 17.1 % (11.6-17.2); WHITE BLOOD COUNT 6.9 TH/MM3 (4.0-11.0)
[2016-09-26 07:23] LABS: HEMATOCRIT 19.8 % (39.0-51.0); HEMO FLAGS DIFF FINAL
[2016-09-26] MEDS: CHLORHEXIDINE GLUCONATE 0.12% 15 ML CUP SCH ×2 (08:00→19:58)
[2016-09-26] MEDS: RESP: BUDESONIDE 0.5 MG/2 ML NEB NEB SCH ×2 (08:04→20:47)
[2016-09-26] MEDS: RESP: ALBUTEROL 2.5 MG/IPRATROPIUM 0.5 MG NEB (SCH) NEB ×3 (08:05→20:41)
[2016-09-26] MEDS: SODIUM CHLORIDE 0.9% FLUSH 5 ML FLUSH IVF SCH (09:00)
[2016-09-26] MEDS: LACTULOSE SYRUP 20 GM/30 ML CUP PO SCH (09:00)
[2016-09-26] MEDS: HEPARIN SODIUM - SQ 10,000 UNITS/ML VIAL SQ SCH ×2 (09:00→19:58)
[2016-09-26] MEDS: DOXAZOSIN MESYLATE 2 MG TAB PO SCH (09:00)
[2016-09-26] MEDS: SENNOSIDES SYRUP 8.8 MG/5 ML CUP PO SCH (09:00)
[2016-09-26] MEDS: DOCUSATE SODIUM 100 MG/10 ML UDC PO SCH ×2 (09:00→19:56)
[2016-09-26] MEDS: PANTOPRAZOLE SODIUM 40 MG VIAL IV PUSH SCH ×2 (09:01→19:57)
[2016-09-26] MEDS: MULTIVITAMINS/MINERALS THERAPEUTIC TAB PO SCH (09:02)
[2016-09-26] MEDS: SODIUM CHLORIDE 0.9% FLUSH 10 ML FLUSH IV FLUSH SCH (09:02)
[2016-09-26] MEDS: METOCLOPRAMIDE HCL 10 MG/2 ML VIAL IV PUSH SCH ×3 (09:03→16:00)
[2016-09-26] MEDS: COLLAGENASE OINT 30 GM TUBE TOP SCH (09:11)
[2016-09-26] MEDS: LEVOFLOXACIN 750 MG PREMIX INJ 150 ML IV SCH (09:12)
[2016-09-26] MEDS: ALPRAZolam 0.25 MG TAB PO PRN (19:56)
[2016-09-26] MEDS: MELATONIN 5 MG TAB PO SCH (19:58)
[2016-09-27] VITALS (34 sets, daily range): BP systolic 93–143; BP diastolic 53–86; PULSE 97–126; RESP 16–33; TEMP 97.7–98.6; O2SAT 85–100
[2016-09-27] MEDS: DILTIAZEM HCL 60 MG TAB PO SCH ×5 (00:12→22:39)
[2016-09-27] MEDS: METOCLOPRAMIDE HCL 10 MG/2 ML VIAL IV PUSH SCH ×4 (00:13→22:39)
[2016-09-27] MEDS: INSULIN NovoLIN REGULAR SUPPLEMENTAL SCALE SQ SCH ×4 (00:20→18:00)
[2016-09-27] MEDS: OLANZapine ODT 5 MG TAB PO SCH ×3 (00:21→18:00)
[2016-09-27 02:31] LABS: BLOOD, URINE NEG (NEG); GLUCOSE,URINE NEG (NEG); KETONE, URINE NEG (NEG); NITRITE,URINE NEG (NEG); PH, URINE 6.5 (5.0-8.5)
[2016-09-27 02:48] LABS: RBC, URINE 0-2 /hpf (0-3); SQUAMOUS EPITHELIAL CELL URINE 0-5 /hpf (0-5); URINE COLOR YELLOW (YELLW/STRAW)
[2016-09-27 02:49] LABS: COMMENT (UR) CULT NOT INDICATED; CULTURE IF INDICATED CULT NOT INDICATED
[2016-09-27] MEDS: RESP: ALBUTEROL 2.5 MG/IPRATROPIUM 0.5 MG NEB (SCH) NEB ×4 (04:02→23:05)
[2016-09-27] MEDS: hydrALAZINE HCL 50 MG TAB PO SCH ×3 (04:46→22:00)
[2016-09-27] MEDS: HYDROmorphone HCL PF 1 MG/ML VIAL IV PRN (04:46)
[2016-09-27] MEDS: ALPRAZolam 0.25 MG TAB PO PRN (04:46)
[2016-09-27] MEDS: HALOPERIDOL LACTATE 5 MG/ML AMP IV PRN ×2 (04:46→13:00)
[2016-09-27] MEDS: NYSTATIN 100,000 U/GM PWD 15 GM BTL TOPICAL SCH ×3 (04:50→22:38)
[2016-09-27 05:10] LABS: AUTOMATED NEUTROPHIL # 8.3 TH/MM3 (1.8-7.7); BASOPHIL % 0.2 % (0.0-2.0); EOSINOPHIL % 0.3 % (0.0-4.0); HEMATOCRIT 22.3 % (39.0-51.0); LYMPH % 5.6 % (9.0-44.0); LYMPHOCYTE # 0.5 TH/MM3 (1.0-4.8); MEAN CELL VOLUME 90.2 FL (80.0-100.0); MEAN CORPUSCULAR HEMOGLOBIN 30.9 PG (27.0-34.0); MEAN CORPUSCULAR HGB CONC 34.2 % (32.0-36.0); MONO % 9.3 % (0.0-8.0); NEUT % 84.6 % (16.0-70.0); PLATELET COUNT 217 TH/MM3 (150-450); RED BLOOD COUNT 2.47 MIL/MM3 (4.50-5.90); RED CELL DISTRIBUTION WIDTH 15.7 % (11.6-17.2); WHITE BLOOD COUNT 9.7 TH/MM3 (4.0-11.0)
[2016-09-27 05:11] LABS: HEMO FLAGS DIFF FINAL
[2016-09-27] MEDS: FREE WATER G-TUBE SCH ×5 (05:29→22:42)
[2016-09-27] MEDS: CEFEPIME INJ 2,000 MG in SODIUM CHLORIDE 0.9% INJ 100 ML IV SCH ×3 (06:30→22:38)
[2016-09-27] MEDS ORDERED: FUROSEMIDE 20 MG/2 ML VIAL IV PUSH ONE (06:30)
--- NOTE | 2016-09-27 06:37 | HHI.CCPN ---
Subjective Remarks/Hospital Course 08/24: 71 Year-old male with a medical history significant for COPD on home oxygen who was recently admitted with suspected sepsis/H And was initiated on IV antibiotics and steroids. He had recently been evaluated by GI and underwent EGD on 08/10/2016 and was found to have moderate esophagitis, mild gastritis with pathology subsequently showing Ashley esophagitis as well as colonoscopy on 08/11/2016 with polypectomy and ablation of polyp in ascending colon with hot snare. Patient has been dealing with constipation since his admission. Today when he was trying to have a bowel movement he suddenly became less responsive and then had a large emesis which resulted in aspiration and hemodynamic collapse. Patient initially had large volume emesis with dark maroon blood. CODE BLUE cardiac arrest code was activated. On my arrival patient was in bed CPR had been initiated. Significant gastric contents was still being suctioned out of his oral cavity. ACLS protocol was continued. Patient was intubated following vigorous suctioning of gastric contents from oral cavity as well as with placement of NG tube which is hooked up to suction and about 1.5 L of gastric contents being suctioned out which appeared to be dark maroon in color. Patient initially had a pulse when CODE BLUE was called and subsequently went in PEA arrest followed by asystole during ACLS and then V. fib for which he was defibrillated with 200 J 1, CPR/ACLS protocol was continued and patient eventually had return of spontaneous circulation after about 15 minutes of CPR/ACLS. Patient was transferred to [facility] and placed on mechanical ventilation. I emergently placed left femoral central line for central vascular access and he was started on Levophed for pressor support. 2 units of O- 1 crossmatch blood were ordered and transfused stat. He also received 1 L of normal saline bolus following return of spontaneous circulation. Stat labs were ordered. His hemoglobin on ABG done post resuscitation was 5.6. I did order Protonix 80 mg IV stat followed by 8 mg per hour IV infusion. Patient remained encephalopathic though was minimally responsive following transfer to the ICU. GI consult was requested and I spoke with Dr. Zamarripa at bedside on his arrival. History was obtained by reviewing records, discussion with family/ GI as well as nursing staff. According to patient's daughter he has not been doing well for the last few months in terms of his breathing and has been using his home oxygen more often. He gets extremely short of breath even with the least exertion. 08/25: Remains encephalopathic/ sedated, [facility]. Transiently off levophed last night however back to 11 mcg/min currently. Hgb up to 9.4 following 4 units PRBCs transfused last night. 08/26: Tmax 99. Some unresponsive on the ventilator. CT abdomen/pelvis less than revealed small bowel obstruction at site of ventral hernia. No further bleeding noted. Gastric output approximately 700 cc. No bowel movement. 08/27: Tmax 99.7. Currently afebrile. Positive BM overnight approximately 1 L according to RN. No blood noted. 100 cc from gastric tube overnight. Hemoglobin corrected a properly. Likely dilutional. Noted fungemia currently issue. Opens eyes to voice. 08/28: Tmax 99.1. No BMs overnight. Minimal gastric tube output. Hemoglobin stable 9.5. Opens eyes to voice. Not following commands. Appears with singultus this morning. 08/29: 20 beat run of wide complex tachycardia overnight. Noted potassium 3.2. This is been replaced. We'll recheck this afternoon. Circuit exchange yesterday. Patient tolerating pressure control ventilation much better than PRVC/AC ventilation is low probably VQ scan. Less FiO2 requirements. No BM past 24 hour. 08/30: Unable to wean ventilator. 08/31: Patient was extubated on 08/30 however became tachypneic with use of accessory muscles of respiration and required reintubation around 6:30 PM last night and was placed back on mechanical ventilation. Currently sedated, orally intubated on mechanical ventilation. Post intubation chest x-ray suggested fluid overload for which she was given Lasix 40 mg IV with good response having made about 2.5 L urine the last 7 hours. 09/01: Remains sedated, orally intubated on mechanical ventilation. Diuresing well with Lasix. Awaiting EGD in a.m. 09/02: Little progress. CXR clearing nicely. Continue diuresis, tolerate hypernatremia. 09/03: Good diuretic response. CRISTHIAN today with no valvar pathology. 09/04: Too weak to tolerate extubation. Will require trach. 09/05: Sedated, arousable, following commands. Tolerated C Pap trial for 9 hours yesterday with pressure support +10. Tolerating tube feeds. 09/06: Extubated yesterday. Chest x-ray reveals likely mucous plugging in left lung garcia. Currently on nonrebreather mask. Planning of insomnia and thick secretions that he is unable to cough up. 09/07 Patient s/p reintubation and bronch 09/06 mucous plugs in left main stem bronchus sedated with Diprivan and Fentanyl. Afebrile. For possible trach tomorrow. 09/08 No acute events overnight. Sedated with Diprivan and Fentanyl. Afebrile. For trach today. 09/09 No acute events overnight. Sedated and intubated. s/p trach yesterday for PEG tube placement today. 09/10 Patient remains sedated and on ventilator via trach. s/p EGD yesterday PEG tube couldn't be placed endoscopically due to hernia. Surgery consulted for J-tube placement. Afebrile. 09/11 No acute events overnight. Sedated with Diprivan, Fentanyl and intubated. Afebrile. Tolerating tube feeds. 09/12 Patient is off Diprivan remains on Fentanyl infusion tolerated CPAP trials for several hrs and TP's x 2 hrs yesterday now on TP with 50% FIO2. Afebrile. 09/13 Patient tolerated TP's all day yesterday placed on PRVC/AC mode overnight. TF held for high residuals. Afebrile. On Fentanyl infusion however he is awake, restless. 09/14 No acute events overnight. Tolerated TP's all day yesterday placed back on ventilator overnight. On Fentanyl infusion. Afebrile. Repeat KUB this morning showed ileus. 09/15 Patient is off fentanyl infusion and is on Precedex drip pulled his NGT overnight. KUB this morning showed improvements in gaseous distention of bowel. 09/16 Yesterday afternoon an NG tube was placed patient was noted to have tube feeds with possible aspiration.NGT placed this am, KUB pending. 09/17: no acute events overnight. tolerated cpap. back on rate overnight. this morning on trach collar. 09/18: prior history of constipation, now with diarrhea. otherwise, awaiting placement. 09/19: diarrhea improving. still awaiting placement. 09/20: still doing well. on trach collar this morning on my evaluation. insurance has not yet approved placement. 09/21: tired out on trach collar yesterday. placed intermittently on cpap. insurance denied LTAC. will work towards [id number]. 09/22: had [id number] today. insurance continues to request permanent surgical feeding access to go to LTAC. My medical opinion is that patient is clinically improving and tolerating DHT without complication, and could safely be fed through DHT for the coming weeks, and I anticipate his dysphagia to resolve as his strength improves. I do not see a clinical indication for permanent surgical gastric access. We also are not a rehab center, and he is not getting medically appropriate care for his level of medical need. He does not require ICU admission, and medically would be more appropriate for LTAC. 09/23: transferred to [facility]. doing well. tachycardic this morning. diltiazem changed from QID to q6hr for more even distribution. insurance company denied admission to LTAC. will continue to pursue this as an option. otherwise, OOB to chair daily. still working with speech. 09/24: did not sleep well overnight. agitated. awake most of the night. I removed stay sutures from trach this morning. 09/25: Received Haldol overnight, resting now. Not agitated. On PRVC/AC. CPAP trails to resume today. Somnolent but wakes up and follows commands 09/26: Continues to have large amount of tracheal secretions. Levaquin restarted sputum culture ordered. Chest x-ray is pending. Did not tolerate CPAP yesterday became tachycardic and hypoxic Subjective 09/27: Tolerated CPAP approximately 6-7 hours became tachypneic afterwards. Currently on full vent support FiO2 50%. Chest x-ray from yesterday shows bilateral pleural effusions/infiltrate right more than left. CT chest ordered cefepime added sputum culture is pending. More delirious at night, now with eyes open following commands Objective Vital Signs Date Time Temp Pulse Resp B/P Pulse Ox O2 Delivery O2 Flow Rate FiO2 09/27/16 06:00 104 09/27/16 06:00 18 103/64 100 09/27/16 04:03 50 09/27/16 04:00 98.4 09/23/16 08:10 Trach Collar Intake and Output 09/26/16 09/26/16 09/27/16 08:00 16:00 00:00 Intake Total 1151 ml 917 ml 1869 ml Output Total 600 ml 1000 ml Balance 551 ml -83 ml 1869 ml Result Diagram: 09/27/16 0500 09/26/16 0600 Imaging Last Impressions Abdomen X-Ray 09/15/16 0600 Signed Impressions: Service Date/Time: Thursday, September 15, 2016 03:16 - CONCLUSION: 1. Improved gaseous distention of bowel since September 14. Mild distention persists. 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 There is concentric mural thrombus. This aneurysm is not amenable to thrombin injection. Polo Moore Jr., MD Lung Scan- Nuclear Medicine 08/29/16 0000 Signed Impressions: Service Date/Time: Monday, August 29, 2016 10:20 - CONCLUSION: Low probability for pulmonary embolus. Lex Lopez MD Brain MRI 08/27/16 0000 Signed Impressions: Service Date/Time: August 15:13 - CONCLUSION: No evidence of acute infarct, hemorrhage, mass or edema. No findings to suggest significant anoxic injury. Kit Power MD Renal Ultrasound 08/25/16 0000 Signed Impressions: Service Date/Time: Wednesday, August 24, 2016 21:53 - CONCLUSION: 1. There is no hydronephrosis. Both kidneys demonstrate mild increased echotexture of the parenchyma suggesting medical renal disease. 2. Trace perihepatic free fluid and bilateral pleural effusions. Lex Malik MD Chest CT 08/25/16 0000 Signed Impressions: Service Date/Time: Thursday, August 25, 2016 21:20 - CONCLUSION: 1. Bilateral pneumonia and aspiration would be in the differential. There is dependent consolidation/atelectasis and small effusions of the bases as well. 2. Upper limits of normal to mildly enlarged mediastinal lymph nodes, most likely reactive. 3. Coronary artery calcification. 4. Right rib fractures, including acute fractures laterally of the third, fourth and fifth. There are old, healed fractures anteriorly of the right second and third ribs.. Lex Lopez MD Abdomen/Pelvis CT 08/25/16 0000 Signed Impressions: Service Date/Time: Thursday, August 25, 2016 20:20 - CONCLUSION: 1. Ventral hernia containing small bowel and with associated small bowel obstruction. The defect is broad; I believe the obstruction is probably related to scarring and/or adhesions within the hernia sac. I don't see a mass. 2. Distended stomach despite NG tube present. 3. Severe aortoiliac atherosclerosis. No aneurysm. Lex Lopez MD Objective Remarks GENERAL: Patient is 71 yo lying in bed in bed, anxious, follows commands SKIN: Warm and dry. HEAD: Normocephalic. EYES: No scleral icterus. No injection or drainage. NECK: trachea midline. No JVD. Trach in place. Large amount of yellow secretions CARDIOVASCULAR: Regular rate and rhythm without murmurs, gallops, or rubs. RESPIRATORY: Breath sounds equal bilaterally, coarse rhonchi bilaterally predominantly left lung garcia. few coarse crackles GASTROINTESTINAL: Abdomen soft, non-tender, nondistended. MUSCULOSKELETAL: No cyanosis, +1 edema. NEURO: Awake, follows commands. Anxious. No FND A/P Assessment and Plan Neuro/Psych: Status post CPR 15 minutes Depression NOS Agitated Delirium --Neurochecks per ICU protocol --Zyprexa 5mg po q8hr for agitation.-increase to 10 q8h 09/27 --Melatonin q hs for sleep --prn breakthrough haldol for agitation --d/cd ativan due to paradoxical agitation. Started Xanax 0.25 mg by mouth every 8 hours when necessary 09/26 --EEG 08/25 revealed mild to moderate encephalopathy. No epileptiform activity. --MRI brain 08/27 revealed no acute findings. Cardiovascular: Cardiac arrest status post CPR Elevated troponin Systemic shock likely secondary to sepsis/aspiration/small bowel obstruction- resolved History dyslipidemia History of hypertension PVD Possible femoral pseudoaneurysm Monitor HR and BP keep MAP>65mmHg Cardizem 60mg QID, Hydralazine 50mg Q8 Cardiac arrest status post CPR. s/p aggressive fluid resuscitation. minimal troponin elevation following cardiac arrest noted Echo 2D revealed EF 35-40%. Moderate LVH. Mitral valve calcified. Mild TR. IV lasix 20 mg x1 with KCL 40 Pulmonary: Acute respiratory failure secondary to aspiration pneumonia- Reintubated 09/06 s/p Trach on 09/08 End-stage COPD. Oxygen dependent FEV1 28%, FVC 1.6. S/P Aspiration 09/15 s/p reintubation and bronch 09/06 mucous plugs in left main stem bronchus Continue with vent support keep sat >90% Bronchodilators, Pulmicort twice a day CPAP /TP trials as anneliese. Tolerated C Pap approximately 6 hours Needs aggressive pulmonary rehab with LTAC. Continues to be very weak prednisone taper. VQ scan low probability 08/29 ICU vent bundle, pulm toilet, trach care F/U CXR -bilateral effusions/infiltrate, check CT of the chest. May need thoracentesis GI: Small bowel obstruction - resolved Upper GI bleed plus esophageal rule out aorto esophageal fistula History of Ashley esophagitis History of colonic polyps History of ventral hernia status post repair last by Dr. Roberts Diarrhea Repeat KUB abdomen showed improvements in gaseous distention of bowel. on Reglan 5mg IV Q8, Senna, Lactulose, Colace. having BM Tube feeds to goal. I think from a GI standpoint, the plan should remain to use nasogastric access at this time. continue frequent speech eval for swallowing. s/p EGD 09/09: Deformed pylorus/antrum, nodular mucosa-multiple biopsies taken esophagitis distal esophagus-biopsy unable to place peg endoscopically due to hiatal hernia. CT abdomen/pelvis revealed possible small bowel obstruction at level of ventral hernia. Severe aortoiliac disease. Dr. Roberts/general surgery evaluated. Very poor surgical candidate this time. EGD 08/25 revealed esophageal nipple. Clots noted within the gastric contents without active bleeding. Protonix for GI prophylaxis Hold Bowel regimen for diarrhea. 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 the patient does not have a contraindication to replacement of DHT if it comes out accidentally. Continue speech/swallow eval and strengthening. I do think he will be strong enough to eat PO in the near future and will not medically require surgical feeding tube. Surgical feeding tube high risk given hernia. risks outweigh benefits. we have a defined long-term enteral feeding plan. Renal/: Acute kidney injury- resolved Hypernatremia History of bladder outlet obstruction Monitor renal function, I/O's, electrolytes replacement per protocol. Free water flushes 300ml Q6 monitor sodium level No hydronephrosis on CT abdomen/pelvis ID: UTI Sepsis Fungemia Stenotrophomonas HCAP Off abx. monitor for signs of infections ( Fever, WBC) s/p course of Levaquin 09/10 - 09/16 s/p course of micafungin for fungemia Restarted Levaquin 09/26 secondary to increased secretions send sputum culture, Added cefepime today 09/27 Pertinent cultures 09/26: Sputum cxP 09/08 Bronch: S. Maltophilia, 09/06 Bronch- S. Maltophilia, 09/03 - blood culture - no growth 09/02 - blood culture - no growth 08/27 - blood from central line -Ashley Glabrata 08/27 -arterial line blood - pending 08/26 - sputum -Serratia 08/25 - blood cultures 2 -Ashley 08/25 - urine -no growth 08/22 - blood cultures 2 - no growth 08/21 - urine - no growth 08/20 - blood cultures 2 - 1 out of 4 staph epi Endocrine: Chronic prednisone use secondary to COPD SSI for glycemic control as needed. Heme: s/p Acute blood loss anemia History of prostate cancer Status post 4 units PRBCs ands 2 units FFP on 08/24. Given one unit PRBCs 08/26, 1U 09/26 Monitor CBC H/H stable. MSK: PT/OT evaluate and treat. Attempt up to chair daily with PT Access - peripheral IV's, PICC line placed 09/11 Prophylaxis - GI -Protonix - DVT - SCD/ heparin 5000 u Sq Q12- cleared by GI. 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 CCT 30- at this time critically ill again with new bilateral infiltrates, hypoxia and probable new healthcare associated pneumonia with sepsis. Check CT chest today May need thoracentesis for diagnostic studies and improving oxygenation Isaias Burnett MD Sep 27, 2016 06:37
--- NOTE | 2016-09-27 06:48 | RADHPO ---
EXAM DATE/TIME: 09/27/2016 06:24 [facility] COMPARISON: CHEST SINGLE AP, September 26, 2016, 6:38. INDICATIONS : Respiratory status. MEDICAL HISTORY : Chronic obstructive pulmonary disease. Emphysema. SURGICAL HISTORY : None. ENCOUNTER: Subsequent ACUITY: 4 - 6 days PAIN SCORE: Non-responsive. LOCATION: Bilateral chest FINDINGS: The tracheostomy tube, NG tube and right PICC line are well placed. The heart size is normal. There i s hazy density throughout the lungs bilaterally the most prominent at the bases. CONCLUSION: Hazy density seen in the chest bilaterally likely related to bilateral effusions. Some degree of atel ectasis or consolidation at the bases also needs to be considered. Lex Lopez MD on September 27, 2016 at 6:45 Board Certified Radiologist. This report was verified electronically.
[2016-09-27] MEDS: CHLORHEXIDINE GLUCONATE 0.12% 15 ML CUP SCH ×2 (08:00→22:32)
[2016-09-27] MEDS: RESP: BUDESONIDE 0.5 MG/2 ML NEB NEB SCH (08:23)
[2016-09-27] MEDS: DOXAZOSIN MESYLATE 2 MG TAB PO SCH (09:00)
[2016-09-27] MEDS: SODIUM CHLORIDE 0.9% FLUSH 5 ML FLUSH IVF SCH (09:00)
[2016-09-27] MEDS: DOCUSATE SODIUM 100 MG/10 ML UDC PO SCH ×2 (10:16→22:38)
[2016-09-27] MEDS: SENNOSIDES SYRUP 8.8 MG/5 ML CUP PO SCH (10:16)
[2016-09-27] MEDS: LEVOFLOXACIN 750 MG PREMIX INJ 150 ML IV SCH (10:16)
[2016-09-27] MEDS: LACTULOSE SYRUP 20 GM/30 ML CUP PO SCH (10:16)
[2016-09-27] MEDS: SODIUM CHLORIDE 0.9% FLUSH 10 ML FLUSH IV FLUSH SCH (10:21)
--- NOTE | 2016-09-27 10:21 | RADHPO ---
EXAM DATE/TIME: 09/27/2016 09:17 [facility] COMPARISON: CT THORAX W/O CONTRAST, August 25, 2016, 21:20. INDICATIONS : Short of breath, plueral effusion. RADIATION DOSE: 4.91 CTDIvol (mGy) MEDICAL HISTORY : Cardiovascular disease. Chronic obstructive pulmonary disease. SURGICAL HISTORY : None. ENCOUNTER: Initial ACUITY: 1 day PAIN SCALE: 2/10 LOCATION: Bilateral chest TECHNIQUE: Volumetric scanning of the chest was performed. Using automated exposure control and adjustment of t he mA and/or kV according to patient size, radiation dose was kept as low as reasonably achievable to obtain optimal diagnostic quality images. FINDINGS: LUNGS: There has been interval placement of a tracheostomy tube which appears appropriately positioned. Ther e are large bilateral layering pleural effusions and there is complete atelectasis of the bilateral l ower lobes. The aerated upper lobes are clear. MEDIASTINUM: The heart and great vessels demonstrate no acute abnormality. There is no mediastinal or hilar lymph adenopathy. Right-sided central line with the tip in the distal SVC. Diffuse coronary artery disease is noted. AXILLAE: Within normal limits. No lymphadenopathy. MUSCULOSKELETAL: Within normal limits for patient age. MISCELLANEOUS: The visualized upper abdominal organs demonstrate no acute abnormality. CONCLUSION: Bilateral large layering pleural effusions with complete atelectasis of the lower lobes. There is bee n interval placement of a tracheostomy tube which appears appropriately positioned. NG tube appears i n appropriate position as does the right-sided central line.. Lola Jean Baptiste MD on September 27, 2016 at 10:15 Board Certified Radiologist. This report was verified electronically.
[2016-09-27] MEDS: TAMSULOSIN HCL 0.4 MG CAP PO SCH (10:22)
[2016-09-27] MEDS: MULTIVITAMINS/MINERALS THERAPEUTIC TAB PO SCH (10:22)
[2016-09-27] MEDS: PANTOPRAZOLE SODIUM 40 MG VIAL IV PUSH SCH ×2 (10:22→22:38)
[2016-09-27] MEDS: COLLAGENASE OINT 30 GM TUBE TOP SCH (10:23)
[2016-09-27] MEDS ORDERED: fentaNYL CITRATE 250 MCG/5 ML AMP IV PUSH ONE (16:30)
[2016-09-27] MEDS ORDERED: MIDAZOLAM HCL 5 MG/ML VIAL (1 ML) IV PUSH ONE (16:45)
[2016-09-27] MEDS ORDERED: VECURONIUM BROMIDE 10 MG VIAL ONE (17:11)
[2016-09-27] MEDS ORDERED: NOREPINEPHRINE-DEXTROSE DRIP 250 ML IV ONE (17:26)
[2016-09-27] MEDS ORDERED: MIDAZOLAM 100 MG/ML INJ 100 ML IV SCH (18:15)
[2016-09-27] MEDS ORDERED: ROCURONIUM INJ 50 MG/5 ML VIAL IV ONE (18:15)
[2016-09-27] MEDS ORDERED: fentaNYL DRIP 250 ML IV SCH (18:15)
[2016-09-27] MEDS ORDERED: MIDAZOLAM HCL 5 MG/ML VIAL (1 ML) IV ONE (18:15)
--- NOTE | 2016-09-27 18:36 | RADHPO ---
EXAM DATE/TIME: 09/27/2016 18:12 [facility] COMPARISON: CHEST SINGLE AP, September 27, 2016, 6:24. INDICATIONS : Post chest tube placement MEDICAL HISTORY : None. SURGICAL HISTORY : None. ENCOUNTER: Subsequent ACUITY: 4 - 6 days PAIN SCORE: Non-responsive. LOCATION: Bilateral chest FINDINGS: A single view of the chest demonstrates development of atelectasis of the left lung with mediastinal shift from right to left. Probable left effusion remains as seen on earlier exam. There is a small ca liber and a larger caliber right chest tube with a small right pneumothorax noted laterally and subcu taneous air in right chest wall. Right PICC line in superior vena cava. Tracheostomy in satisfactory position. NG tube traverses esophagus. CONCLUSION: 1. Development of near complete atelectasis of the left lung since exam from earlier today with media stinal shift from right to left. 2 right chest tubes now present with small right pneumothorax. 2. Tracheostomy and NG tube unchanged. Findings discussed by telephone with Dr. Burnett. Eleazar Jimenez MD on September 27, 2016 at 18:30 Board Certified Radiologist. This report was verified electronically.
[2016-09-27] MEDS ORDERED: VASOPRESSIN INJ 40 UNITS in DEXTROSE 5% IN WATER 100ML INJ 98 ML IV SCH ×2 (18:49)
[2016-09-27] MEDS ORDERED: VASOPRESSIN INJ 20 UNITS/ML VIAL ONE (19:33)
[2016-09-27] MEDS ORDERED: ROCURONIUM INJ 50 MG/5 ML VIAL IV STA (20:26)
[2016-09-27 21:53] LABS: HEMATOCRIT 25.4 % (39.0-51.0); MEAN CORPUSCULAR HEMOGLOBIN 30.4 PG (27.0-34.0); PLATELET COUNT 273 TH/MM3 (150-450); RED BLOOD COUNT 2.76 MIL/MM3 (4.50-5.90); REVIEW FLAG FINAL; WHITE BLOOD COUNT 16.6 TH/MM3 (4.0-11.0)
[2016-09-27 22:17] LABS: ALKALINE PHOSPHATASE 132 U/L (45-117); ALT (GPT) 18 U/L (12-78); ANION GAP 8 MEQ/L (5-15); AST (GOT) 17 U/L (15-37); BICARBONATE 28.1 MEQ/L (21.0-32.0); BLOOD UREA NITROGEN 14 MG/DL (7-18); CHLORIDE 99 MEQ/L (98-107); GLOMERULAR FILTRATION RATE 141 ML/MIN (>89); POTASSIUM 3.6 MEQ/L (3.5-5.1); SODIUM (NA) 135 MEQ/L (136-145); TOTAL BILIRUBIN ADULT 0.5 MG/DL (0.2-1.0)
[2016-09-27] MEDS: MELATONIN 5 MG TAB PO SCH (22:38)
--- NOTE | 2016-09-27 23:03 | RADRPT ---
EXAM DATE/TIME: 09/27/2016 22:36 [facility] COMPARISON: CHEST SINGLE AP, September 27, 2016, 18:12. INDICATIONS : Post bronchoscopy. MEDICAL HISTORY : Chronic obstructive pulmonary disease. Emphysema. SURGICAL HISTORY : None. ENCOUNTER: Subsequent ACUITY: 4 - 6 days PAIN SCORE: Non-responsive. LOCATION: Bilateral chest FINDINGS: Compared with earlier exam left lung is nearly completely reexpanded. There is mild left basilar airs pace disease. 2 right-sided chest tubes remain in place with a slight increase in size of the right p neumothorax laterally and superiorly. Tracheostomy, NG and right PICC line unchanged. CONCLUSION: 1. Mild basilar airspace disease. Small right pneumothorax but increased from earlier exam. Near-comp lete reexpansion of the left lung. No left pneumothorax. Eleazar Jimenez MD on September 27, 2016 at 22:59 Board Certified Radiologist. This report was verified electronically.
[2016-09-27] MEDS: RESP: ACETYLCYSTEINE 10% 30 ML NEB NEB SCH (23:05)
[2016-09-28] VITALS (26 sets, daily range): BP systolic 93–144; BP diastolic 56–86; PULSE 83–118; RESP 16–25; TEMP 97.2–100; O2SAT 96–100
--- NOTE | 2016-09-28 01:00 | PD.PROCEDR ---
Procedure Note Procedure Date of procedure: 09/27/2016 Preoperative diagnosis: Mucous plugging with left lung collapse. Right pneumothorax status post chest tube placement Postoperative diagnosis: Same Procedure: Fiberoptic bronchoscopy with bronchoalveolar lavage Procedure: Following patient's around to [facility] he was sedated with Versed 5 mg IV , rocuronium 50 mg IV for neuromuscular blockade and Versed and fentanyl drips were continued for sedation/analgesia. After ensuring adequate sedation and neuromuscular blockade, fiberoptic bronchoscope was inserted via adapter on tracheostomy and trachea was visualized. Bronchoscope was advanced up to the michele and subsequently left-sided airways were entered. Mucous plugging noted. BAL was performed. It was difficult to suction the mucous plug without however I was able to dislodge it mechanically using the bronchoscope. Subsequently bronchoscope was withdrawn and advanced down the right mainstem bronchus and right sided airways with minimal secretions noted which were suctioned out. Bronchoscope was then withdrawn. Patient's O2 sats improved immediately following procedure to 100%. Postprocedure chest x-ray showed reexpansion of left lung. Directional tip suctioning was initiated as well as Mucomyst nebulizer treatments and chest PT in view of thick mucoid secretions and mucus plugging. Blair Espinoza MD Sep 28, 2016 01:00
[2016-09-28] MEDS: RESP: ACETYLCYSTEINE 10% 30 ML NEB NEB SCH ×4 (04:16→19:44)
[2016-09-28] MEDS: RESP: ALBUTEROL 2.5 MG/IPRATROPIUM 0.5 MG NEB (SCH) NEB ×4 (04:16→19:44)
[2016-09-28] MEDS: DILTIAZEM HCL 60 MG TAB PO SCH ×2 (04:39→12:08)
[2016-09-28] MEDS: hydrALAZINE HCL 50 MG TAB PO SCH (04:39)
[2016-09-28] MEDS: FREE WATER G-TUBE SCH ×3 (04:42→17:16)
[2016-09-28] MEDS: CEFEPIME INJ 2,000 MG in SODIUM CHLORIDE 0.9% INJ 100 ML IV SCH ×3 (04:42→21:03)
[2016-09-28] MEDS: NYSTATIN 100,000 U/GM PWD 15 GM BTL TOPICAL SCH ×3 (04:43→21:03)
[2016-09-28] MEDS: OLANZapine ODT 5 MG TAB PO SCH ×3 (04:43→17:17)
[2016-09-28 05:51] LABS: BLOOD GAS BASE EXCESS 1.5 mmol/L (-2-2); BLOOD GAS CARBOXYHEMOGLOBIN 1.6 % (0-4); BLOOD GAS HCO3 25 mmol/L (22-26); BLOOD GAS METHEMOGLOBIN 0.7 % (0-2); BLOOD GAS O2 HGB SATURATION 94 % (90-100); BLOOD GAS OXYGEN CONTENT 12.4 Vol % (12.0-20.0); BLOOD GAS PCO2 32 mmHg (38-42); BLOOD GAS PO2 77 mmHg (61-120); BLOOD GAS TOTAL HGB 9.3 G/DL (12.0-16.0); TEMP CORR TO 98.6
[2016-09-28 05:52] LABS: CRITICAL VALUE NO; OXYGEN DEVICE VENTILATOR
[2016-09-28 05:53] LABS: DRAW SITE LT RADIAL; FIO2 60 %; NUMBER OF ARTERIAL PUNCTURES 1; STAT NO; ULNAR PULSE PRESENT
--- NOTE | 2016-09-28 05:58 | RADRPT ---
EXAM DATE/TIME: 09/28/2016 04:23 [place] COMPARISON: CHEST SINGLE AP, September 27, 2016, 22:36. INDICATIONS : Shortness of breath, possible pulmonary disease. MEDICAL HISTORY : Chronic obstructive pulmonary disease. Emphysema. SURGICAL HISTORY : None. ENCOUNTER: Subsequent ACUITY: 1 week PAIN SCORE: Non-responsive. LOCATION: Bilateral chest FINDINGS: A single view of the chest demonstrates hyperinflation with bibasilar densities. A large and small ca liber chest tube are seen on the right. The pneumothorax in the right lung base has almost completely resolved. Tracheostomy tube, right-sided PICC line and nasogastric tube are unchanged. Osseous stru ctures are intact. CONCLUSION: 1. Decreasing pneumothorax along the right lung base. 2. Bibasilar densities again seen. Eduardo Mcconnell MD on September 28, 2016 at 5:55 Board Certified Radiologist. This report was verified electronically.
[2016-09-28] MEDS: INSULIN NovoLIN REGULAR SUPPLEMENTAL SCALE SQ SCH ×4 (06:00→18:00)
[2016-09-28] MEDS ORDERED: NOREPINEPHRINE-DEXTROSE DRIP 250 ML IV ONE (06:59)
[2016-09-28] MEDS: RESP: BUDESONIDE 0.5 MG/2 ML NEB NEB SCH ×2 (08:43→19:43)
[2016-09-28] MEDS: LEVOFLOXACIN 750 MG PREMIX INJ 150 ML IV SCH (08:44)
[2016-09-28] MEDS: CHLORHEXIDINE GLUCONATE 0.12% 15 ML CUP SCH ×2 (08:44→21:02)
[2016-09-28] MEDS: METOCLOPRAMIDE HCL 10 MG/2 ML VIAL IV PUSH SCH ×2 (08:45→15:12)
[2016-09-28] MEDS: SODIUM CHLORIDE 0.9% FLUSH 10 ML FLUSH IV FLUSH SCH (08:45)
[2016-09-28] MEDS: SENNOSIDES SYRUP 8.8 MG/5 ML CUP PO SCH (08:46)
[2016-09-28] MEDS: SODIUM CHLORIDE 0.9% FLUSH 5 ML FLUSH IVF SCH (08:47)
[2016-09-28] MEDS: TAMSULOSIN HCL 0.4 MG CAP PO SCH (08:47)
[2016-09-28] MEDS: DOXAZOSIN MESYLATE 2 MG TAB PO SCH (08:48)
[2016-09-28] MEDS: LACTULOSE SYRUP 20 GM/30 ML CUP PO SCH (08:48)
[2016-09-28] MEDS: MULTIVITAMINS/MINERALS THERAPEUTIC TAB PO SCH (08:48)
[2016-09-28] MEDS: DOCUSATE SODIUM 100 MG/10 ML UDC PO SCH ×2 (08:48→21:02)
[2016-09-28] MEDS: COLLAGENASE OINT 30 GM TUBE TOP SCH (08:48)
[2016-09-28] MEDS: PANTOPRAZOLE SODIUM 40 MG VIAL IV PUSH SCH ×2 (08:48→21:02)
--- NOTE | 2016-09-28 12:13 | HHI.IDPN ---
Subjective Subjective Remarks Events noted D/W RN Patient last seen 09/21 Has completed Rx for Sten mal PNA 09/16 Complete Rx fro candidemia 09/23 He was transferred top C PO 09/24 Weaning from the vent main issue Per records his insurance company has not approved LTAC Notes reviewed Yesterday he had problems on the vent Had collapse on L with shift Has 2 CT on R Had bronch yesterday and CXR better Has a lot of trach secretions Occ low grade temps Also now on Levophed Antibiotics Levaquin, restarted 09/26 Cefepime - 09/27 IV Micafungin (for fungal line infection) - finished 09/23 Lines PICC - 09/11 Past Medical History Reviewed Allergies: Coded Allergies: *MDRO Multi-Drug Resistant Organism (Verified Adverse Reaction, Unknown, ) MRSA (abdominal wound) 2015 per 04/10/2015 H&P MRSA PCR Screen #1 NEGATIVE - 08/21/16 Objective . Vital Signs Date Time Temp Pulse Resp B/P Pulse Ox O2 Delivery O2 Flow Rate FiO2 09/28/16 10:14 98 50 09/28/16 10:00 112 09/28/16 08:48 98 50 09/28/16 08:00 109 09/28/16 08:00 99.2 105 20 125/70 98 09/28/16 08:00 50 09/28/16 06:00 118 09/28/16 04:17 98 60 09/28/16 04:00 100.0 118 20 93/67 97 09/28/16 04:00 60 09/28/16 04:00 118 09/28/16 03:10 96 60 09/28/16 02:00 116 09/28/16 01:44 100 80 09/28/16 00:00 100 09/28/16 00:00 97.2 98 20 137/86 100 09/28/16 00:00 98 09/27/16 23:06 100 100 09/27/16 22:00 110 09/27/16 21:40 97 100 09/27/16 21:05 100 100 09/27/16 21:00 114 09/27/16 21:00 97.7 114 20 143/86 95 09/27/16 21:00 100 09/27/16 19:14 100 100 09/27/16 18:16 85 09/27/16 16:50 92 55 09/27/16 16:00 115 09/27/16 16:00 98.5 122 32 119/76 93 09/27/16 16:00 50 09/27/16 15:00 126 29 93/72 94 09/27/16 14:00 122 27 107/59 92 09/27/16 14:00 124 09/27/16 13:41 93 55 09/27/16 13:00 124 32 95/71 89 09/27/16 09/27/16 09/28/16 15:00 23:00 07:00 Intake Total 821 ml 1713 ml Output Total 1800 ml 250 ml 225 ml Balance -979 ml -250 ml 1488 ml IV Total 290 ml 1188 ml Tube Feeding 231 ml 225 ml Other 300 ml 300 ml Output Urine Total 1800 ml 250 ml 225 ml # Bowel Movements 0 . Laboratory Tests Test 09/27/16 09/27/16 05:00 21:35 White Blood Count 9.7 TH/MM3 16.6 TH/MM3 Red Blood Count 2.47 MIL/MM3 2.76 MIL/MM3 Hemoglobin 7.6 GM/DL 8.4 GM/DL Hematocrit 22.3 % 25.4 % Mean Corpuscular Volume 90.2 FL 92.0 FL Mean Corpuscular Hemoglobin 30.9 PG 30.4 PG Mean Corpuscular Hemoglobin 34.2 % 33.0 % Concent Red Cell Distribution Width 15.7 % 17.0 % Platelet Count 217 TH/MM3 273 TH/MM3 Mean Platelet Volume 8.4 FL 8.9 FL Neutrophils (%) (Auto) 84.6 % Lymphocytes (%) (Auto) 5.6 % Monocytes (%) (Auto) 9.3 % Eosinophils (%) (Auto) 0.3 % Basophils (%) (Auto) 0.2 % Neutrophils # (Auto) 8.3 TH/MM3 Lymphocytes # (Auto) 0.5 TH/MM3 Monocytes # (Auto) 0.9 TH/MM3 Eosinophils # (Auto) 0.0 TH/MM3 Basophils # (Auto) 0.0 TH/MM3 CBC Comment DIFF FINAL Differential Comment Laboratory Tests Test 09/27/16 21:35 Sodium Level 135 MEQ/L Potassium Level 3.6 MEQ/L Chloride Level 99 MEQ/L Carbon Dioxide Level 28.1 MEQ/L Anion Gap 8 MEQ/L Blood Urea Nitrogen 14 MG/DL Creatinine 0.57 MG/DL Estimat Glomerular Filtration 141 ML/MIN Rate Random Glucose 179 MG/DL Lactic Acid Level 0.9 mmol/L Calcium Level 8.6 MG/DL Total Bilirubin 0.5 MG/DL Aspartate Amino Transf 17 U/L (AST/SGOT) Alanine Aminotransferase 18 U/L (ALT/SGPT) Alkaline Phosphatase 132 U/L Total Protein 5.9 GM/DL Albumin 1.8 GM/DL Microbiology Date/Time Procedure Status Source Growth 09/26/16 13:00 Gram Stain - Final Resulted Sputum Endotracheal 09/26/16 13:00 Sputum Culture - Preliminary Resulted Gram Negative [facility] Chest X-Ray 09/28/16 0600 Signed Impressions: Service Date/Time: Wednesday, September 28, 2016 04:23 - CONCLUSION: 1. Decreasing pneumothorax along the right lung base. 2. Bibasilar densities again seen. Eduardo Mcconnell MD Chest X-Ray 09/27/16 2230 Signed Impressions: Service Date/Time: Tuesday, September 27, 2016 22:36 - CONCLUSION: 1. Mild basilar airspace disease. Small right pneumothorax but increased from earlier exam. Near-complete reexpansion of the left lung. No left pneumothorax. Eleazar Jimenez MD Chest X-Ray 09/27/16 0600 Signed Impressions: Service Date/Time: Tuesday, September 27, 2016 06:24 - CONCLUSION: Hazy density seen in the chest bilaterally likely related to bilateral effusions. Some degree of atelectasis or consolidation at the bases also needs to be considered. Lex Lopez MD Chest X-Ray 09/27/16 0000 Signed Impressions: Service Date/Time: Tuesday, September 27, 2016 18:12 - CONCLUSION: 1. Development of near complete atelectasis of the left lung since exam from earlier today with mediastinal shift from right to left. 2 right chest tubes now present with small right pneumothorax. 2. Tracheostomy and NG tube unchanged. Findings discussed by telephone with Dr. Burnett. Eleazar Jimenez MD Chest CT 09/27/16 0000 Signed Impressions: Service Date/Time: Tuesday, September 27, 2016 09:17 - CONCLUSION: Bilateral large layering pleural effusions with complete atelectasis of the lower lobes. There is been interval placement of a tracheostomy tube which appears appropriately positioned. NG tube appears in appropriate position as does the right-sided central line.. Lola Jean Baptiste MD Chest X-Ray 09/26/16 0600 Signed Impressions: Service Date/Time: Monday, September 26, 2016 06:38 - CONCLUSION: Hazy density throughout the lungs likely related to bilateral effusions. Some degree of atelectasis or consolidation at the lung bases also needs to be considered. Lex Lopez MD Chest X-Ray 09/16/16 0000 Signed Impressions: Service Date/Time: Friday, September 16, 2016 04:58 - CONCLUSION: 1. Tracheostomy and right PICC line present. Bilateral airspace disease, right greater than left similar to September 15. Eleazar Jimenez MD Abdomen X-Ray 09/16/16 0000 Signed Impressions: Service Date/Time: Friday, September 16, 2016 10:54 - CONCLUSION: 1. Nasogastric tube looped in the distal esophagus. Gareth Escalante MD Abdomen X-Ray 09/15/16 0600 Signed Impressions: Service Date/Time: Thursday, September 15, 2016 03:16 - CONCLUSION: 1. Improved gaseous distention of bowel since September 14. Mild distention persists. Eleazar Jimenez MD Chest X-Ray 09/15/16 0000 Signed Impressions: Service Date/Time: Thursday, September 15, 2016 13:39 - CONCLUSION: Decrease in medial left lung base atelectasis. No change in hazy right lung base opacity. Donald Valerio MD Abdomen X-Ray 09/14/16 0600 Signed Impressions: Service Date/Time: Wednesday, September 14, 2016 03:56 - CONCLUSION: Gaseous distention of multiple bowel loops, likely ileus. Eduardo Mcconnell MD Chest X-Ray 09/08/16 1325 Signed Impressions: Service Date/Time: Thursday, September 08, 2016 13:37 - CONCLUSION: 1. Interval improvement of the interstitial infiltrates with minimal residual right basilar infiltrate noted. 2. Tracheostomy tube in good position approximately 5 cm above the michele. Lui Kim MD Chest X-Ray 09/06/16 0000 Signed Impressions: Service Date/Time: Tuesday, September 06, 2016 13:49 - CONCLUSION: 1. Interval intubation and placement of nasogastric tube. 2. Volume loss again noted left hemithorax with mediastinal shift. There is coarse infiltrate remaining in the left lung. Ian Horton MD Chest X-Ray 09/06/16 0000 Signed Impressions: Service Date/Time: Tuesday, September 06, 2016 08:50 - CONCLUSION: 1. Increasing density throughout the left hemithorax with volume loss suggesting mucus plugging. Eduardo Mcconnell MD Chest X-Ray 09/05/16 0500 Signed Impressions: Service Date/Time: Monday, September 05, 2016 03:49 - CONCLUSION: 1. Basilar airspace disease similar to prior exam. Support apparatus unchanged. Eleazar Jimenez MD Chest X-Ray 09/05/16 0500 Signed Impressions: Service Date/Time: Monday, September 05, 2016 03:49 - CONCLUSION: 1. Basilar airspace disease similar to prior exam. Support apparatus unchanged. Eleazar Jimenez MD Chest X-Ray 09/01/16 0600 Signed Impressions: Service Date/Time: Thursday, September 01, 2016 03:19 - CONCLUSION: No significant interval change in bilateral pulmonary parenchymal opacity and small bilateral pleural effusions. 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 There is concentric mural thrombus. This aneurysm is not amenable to thrombin injection. Polo Moore Jr., MD Chest X-Ray 08/27/16 0600 Signed Impressions: Service Date/Time: August 02:27 - CONCLUSION: 1. Patchy bilateral airspace disease with improving aeration/decreasing effusions in the bases bilaterally. 2. Stable position of life support tubes. Con Valdes MD Chest X-Ray 08/26/16 0754 Signed Impressions: Service Date/Time: Friday, August 26, 2016 08:14 - CONCLUSION: Left IJ central line distal tip in the SVC. No pneumothorax is visualized. There is a stable appearance the lungs with bilateral airspace consolidation. Lex Malik MD Chest X-Ray 08/26/16 0600 Signed Impressions: Service Date/Time: Friday, August 26, 2016 04:01 - CONCLUSION: 1. Worsening bibasilar effusions/atelectasis with diffuse interstitial edema, all characteristic of CHF. 2. Endotracheal tube remains appropriately positioned above the michele Con Valdes MD Chest X-Ray 08/26/16 0754 Signed Impressions: Service Date/Time: Friday, August 26, 2016 08:14 - CONCLUSION: Left IJ central line distal tip in the SVC. No pneumothorax is visualized. There is a stable appearance the lungs with bilateral airspace consolidation. Lex Malik MD Renal Ultrasound 08/25/16 0000 Signed Impressions: Service Date/Time: Wednesday, August 24, 2016 21:53 - CONCLUSION: 1. There is no hydronephrosis. Both kidneys demonstrate mild increased echotexture of the parenchyma suggesting medical renal disease. 2. Trace perihepatic free fluid and bilateral pleural effusions. Lex Malik MD Chest CT 08/25/16 0000 Signed Impressions: Service Date/Time: Thursday, August 25, 2016 21:20 - CONCLUSION: 1. Bilateral pneumonia and aspiration would be in the differential. There is dependent consolidation/atelectasis and small effusions of the bases as well. 2. Upper limits of normal to mildly enlarged mediastinal lymph nodes, most likely reactive. 3. Coronary artery calcification. 4. Right rib fractures, including acute fractures laterally of the third, fourth and fifth. There are old, healed fractures anteriorly of the right second and third ribs.. Lex Lopez MD Abdomen/Pelvis CT 08/25/16 0000 Signed Impressions: Service Date/Time: Thursday, August 25, 2016 20:20 - CONCLUSION: 1. Ventral hernia containing small bowel and with associated small bowel obstruction. The defect is broad; I believe the obstruction is probably related to scarring and/or adhesions within the hernia sac. I don't see a mass. 2. Distended stomach despite NG tube present. 3. Severe aortoiliac atherosclerosis. No aneurysm. Lex Lopez MD Abdomen X-Ray 08/24/16 0000 Signed Impressions: Service Date/Time: Wednesday, August 24, 2016 17:19 - CONCLUSION: 1. Small bowel dilatation which reflect ileus or obstruction. Followup examination is recommended if clinically indicated. Gareth Escalante MD Physical Exam GENERAL: Awake, and alert, following, NAD. On the vent SKIN: Warm and dry. No generalized rash HEENT: [place] conjunctiva, no scleral icterus. Dry oral mucosa. Has NGT in place NECK: Trach site ok. Supple. CARDIOVASCULAR: Regular rate and rhythm without murmurs, gallops, or rubs. RESPIRATORY: Decreased breath sounds throughout both lung garcia. GASTROINTESTINAL: Abdomen soft, not tender, not distended. Has a large midline hernia reducible, currently not distended. Has midline scar. No redness or tenderness noted in R groin MUSCULOSKELETAL: Extremities without clubbing, cyanosis. No edema. LINE: PICC no evidence of infection. Assessment & Plan Remarks IMPRESSION New problem, respiratory, plugging, possible new VAP, with shock, on pressors - S/P bronch 09/27 Sepsis present on admission and then sepsis again. Better Central line associated blood stream infection (CLABSI) related fungemia ( likely groin line) now discontinued. Arterial line discontinued as well. 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 - S/P Rx Sten mal in sputum, S/P Rx Status post cardiorespiratory arrest Findings SBO within the hernia on CT A/P, clinically better Acute respiratory failure, S/P trach Leukocytosis, new due to pulmonary cause COPD, oxygen dependent Previous GI bleed with workup showing gastritis, Ashley esophagitis, and polyps Large incisional ventral hernia Bladder outlet obstruction, currently has a [place] Renal insufficiency RECOMMENDATION Follow new C/S Continue cefepime Continue Levaquin Follow temps Follow CBC Monitor progress D/W Nuha Nguyen MD Sep 28, 2016 12:13 D/W Nuha Nguyen MD Sep 28, 2016 12:13
--- NOTE | 2016-09-28 13:30 | PD.PROCEDR ---
Procedure Note Procedure CHEST TUBE THORACOSTOMY x2: Indication: Tension pneumothorax Procedure was done as emergency. Clinically patient has tension pneumothorax. Angiocath used for emergency needle decompression. 5 th interspace was acceded with needle/syringe and air was withdrawn. A guide wire was placed and after dilation and 8 F pigtail was placed using Seldinger technique. Connected to pleurovac, with significant air leak. As there was inadequate improvement in oxygen saturation and inflation pressures, fourth intercostal incision made emergently followed by blunt dissection to the fourth intercostal interspace. The pleura was punctured with immediate you of air. Finger was inserted in the space and thoracostomy tube was placed, directed posteriorly and superiorly. Tube draining well. The thoracostomy tube was secured with suture. Sterile seal dressing placed. Patient tolerated procedure well, with gradual improvement in O2 saturation. Isaias Burnett MD Sep 28, 2016 13:30
--- NOTE | 2016-09-28 13:35 | PD.PROCEDR ---
Procedure Note Procedure Procedure-R thoracentesis Indication: Large right pleural effusion A time-out was completed verifying correct patient, procedure, site, positioning , and special equipment if applicable. The patient was placed in Left lateral decubitus position and right side was prepped and draped in a sterile manner after the appropriate infiltration level was confirmed by ultrasound. 1% lidocaine was used anesthetize the surrounding skin. A 10-blade scalpel used to make the incision. The thoracentesis Angio cath was then introduced but no fluid was aspirated, but a large amount of air. A pneumothorax was suspected and thoracentesis procedure was aborted. PLEASE SEE SEPARATE CHEST TUBE PROCEDURE NOTE Isaias Burnett MD Sep 28, 2016 13:35
[2016-09-28] MEDS ORDERED: TERBUTALINE INJ 1 MG/ML AMP SQ PRN (14:00)
[2016-09-28] MEDS ORDERED: NOREPINEPHRINE-DEXTROSE DRIP 250 ML IV SCH (14:00)
[2016-09-28 14:04] LABS: AUTOMATED NEUTROPHIL # 7.7 TH/MM3 (1.8-7.7); BASOPHIL % 0.2 % (0.0-2.0); EOSINOPHIL % 0.2 % (0.0-4.0); LYMPH % 4.9 % (9.0-44.0); LYMPHOCYTE # 0.4 TH/MM3 (1.0-4.8); MEAN CELL VOLUME 92.3 FL (80.0-100.0); MEAN CORPUSCULAR HEMOGLOBIN 30.7 PG (27.0-34.0); MEAN CORPUSCULAR HGB CONC 33.3 % (32.0-36.0); MONO % 9.9 % (0.0-8.0); NEUT % 84.8 % (16.0-70.0); PLATELET COUNT 191 TH/MM3 (150-450); RED BLOOD COUNT 2.11 MIL/MM3 (4.50-5.90); RED CELL DISTRIBUTION WIDTH 16.5 % (11.6-17.2); WHITE BLOOD COUNT 9.1 TH/MM3 (4.0-11.0)
[2016-09-28 14:05] LABS: HEMO FLAGS AUTO DIFF
[2016-09-28 14:08] LABS: HEMATOCRIT 19.5 % (39.0-51.0)
--- NOTE | 2016-09-28 14:25 | HHI.CCPN ---
Subjective Remarks/Hospital Course 08/24: 71 Year-old male with a medical history significant for COPD on home oxygen who was recently admitted with suspected sepsis/H And was initiated on IV antibiotics and steroids. He had recently been evaluated by GI and underwent EGD on 08/10/2016 and was found to have moderate esophagitis, mild gastritis with pathology subsequently showing Ashley esophagitis as well as colonoscopy on 08/11/2016 with polypectomy and ablation of polyp in ascending colon with hot snare. Patient has been dealing with constipation since his admission. Today when he was trying to have a bowel movement he suddenly became less responsive and then had a large emesis which resulted in aspiration and hemodynamic collapse. Patient initially had large volume emesis with dark maroon blood. CODE BLUE cardiac arrest code was activated. On my arrival patient was in bed CPR had been initiated. Significant gastric contents was still being suctioned out of his oral cavity. ACLS protocol was continued. Patient was intubated following vigorous suctioning of gastric contents from oral cavity as well as with placement of NG tube which is hooked up to suction and about 1.5 L of gastric contents being suctioned out which appeared to be dark maroon in color. Patient initially had a pulse when CODE BLUE was called and subsequently went in PEA arrest followed by asystole during ACLS and then V. fib for which he was defibrillated with 200 J 1, CPR/ACLS protocol was continued and patient eventually had return of spontaneous circulation after about 15 minutes of CPR/ACLS. Patient was transferred to [facility] and placed on mechanical ventilation. I emergently placed left femoral central line for central vascular access and he was started on Levophed for pressor support. 2 units of O- 1 crossmatch blood were ordered and transfused stat. He also received 1 L of normal saline bolus following return of spontaneous circulation. Stat labs were ordered. His hemoglobin on ABG done post resuscitation was 5.6. I did order Protonix 80 mg IV stat followed by 8 mg per hour IV infusion. Patient remained encephalopathic though was minimally responsive following transfer to the ICU. GI consult was requested and I spoke with Dr. Zamarripa at bedside on his arrival. History was obtained by reviewing records, discussion with family/ GI as well as nursing staff. According to patient's daughter he has not been doing well for the last few months in terms of his breathing and has been using his home oxygen more often. He gets extremely short of breath even with the least exertion. 08/25: Remains encephalopathic/ sedated, [facility]. Transiently off levophed last night however back to 11 mcg/min currently. Hgb up to 9.4 following 4 units PRBCs transfused last night. 08/26: Tmax 99. Some unresponsive on the ventilator. CT abdomen/pelvis less than revealed small bowel obstruction at site of ventral hernia. No further bleeding noted. Gastric output approximately 700 cc. No bowel movement. 08/27: Tmax 99.7. Currently afebrile. Positive BM overnight approximately 1 L according to RN. No blood noted. 100 cc from gastric tube overnight. Hemoglobin corrected a properly. Likely dilutional. Noted fungemia currently issue. Opens eyes to voice. 08/28: Tmax 99.1. No BMs overnight. Minimal gastric tube output. Hemoglobin stable 9.5. Opens eyes to voice. Not following commands. Appears with singultus this morning. 08/29: 20 beat run of wide complex tachycardia overnight. Noted potassium 3.2. This is been replaced. We'll recheck this afternoon. Circuit exchange yesterday. Patient tolerating pressure control ventilation much better than PRVC/AC ventilation is low probably VQ scan. Less FiO2 requirements. No BM past 24 hour. 08/30: Unable to wean ventilator. 08/31: Patient was extubated on 08/30 however became tachypneic with use of accessory muscles of respiration and required reintubation around 6:30 PM last night and was placed back on mechanical ventilation. Currently sedated, orally intubated on mechanical ventilation. Post intubation chest x-ray suggested fluid overload for which she was given Lasix 40 mg IV with good response having made about 2.5 L urine the last 7 hours. 09/01: Remains sedated, orally intubated on mechanical ventilation. Diuresing well with Lasix. Awaiting EGD in a.m. 09/02: Little progress. CXR clearing nicely. Continue diuresis, tolerate hypernatremia. 09/03: Good diuretic response. CRISTHIAN today with no valvar pathology. 09/04: Too weak to tolerate extubation. Will require trach. 09/05: Sedated, arousable, following commands. Tolerated C Pap trial for 9 hours yesterday with pressure support +10. Tolerating tube feeds. 09/06: Extubated yesterday. Chest x-ray reveals likely mucous plugging in left lung garcia. Currently on nonrebreather mask. Planning of insomnia and thick secretions that he is unable to cough up. 09/07 Patient s/p reintubation and bronch 09/06 mucous plugs in left main stem bronchus sedated with Diprivan and Fentanyl. Afebrile. For possible trach tomorrow. 09/08 No acute events overnight. Sedated with Diprivan and Fentanyl. Afebrile. For trach today. 09/09 No acute events overnight. Sedated and intubated. s/p trach yesterday for PEG tube placement today. 09/10 Patient remains sedated and on ventilator via trach. s/p EGD yesterday PEG tube couldn't be placed endoscopically due to hernia. Surgery consulted for J-tube placement. Afebrile. 09/11 No acute events overnight. Sedated with Diprivan, Fentanyl and intubated. Afebrile. Tolerating tube feeds. 09/12 Patient is off Diprivan remains on Fentanyl infusion tolerated CPAP trials for several hrs and TP's x 2 hrs yesterday now on TP with 50% FIO2. Afebrile. 09/13 Patient tolerated TP's all day yesterday placed on PRVC/AC mode overnight. TF held for high residuals. Afebrile. On Fentanyl infusion however he is awake, restless. 09/14 No acute events overnight. Tolerated TP's all day yesterday placed back on ventilator overnight. On Fentanyl infusion. Afebrile. Repeat KUB this morning showed ileus. 09/15 Patient is off fentanyl infusion and is on Precedex drip pulled his NGT overnight. KUB this morning showed improvements in gaseous distention of bowel. 09/16 Yesterday afternoon an NG tube was placed patient was noted to have tube feeds with possible aspiration.NGT placed this am, KUB pending. 09/17: no acute events overnight. tolerated cpap. back on rate overnight. this morning on trach collar. 09/18: prior history of constipation, now with diarrhea. otherwise, awaiting placement. 09/19: diarrhea improving. still awaiting placement. 09/20: still doing well. on trach collar this morning on my evaluation. insurance has not yet approved placement. 09/21: tired out on trach collar yesterday. placed intermittently on cpap. insurance denied LTAC. will work towards [id number]. 09/22: had [id number] today. insurance continues to request permanent surgical feeding access to go to LTAC. My medical opinion is that patient is clinically improving and tolerating DHT without complication, and could safely be fed through DHT for the coming weeks, and I anticipate his dysphagia to resolve as his strength improves. I do not see a clinical indication for permanent surgical gastric access. We also are not a rehab center, and he is not getting medically appropriate care for his level of medical need. He does not require ICU admission, and medically would be more appropriate for LTAC. 09/23: transferred to [facility]. doing well. tachycardic this morning. diltiazem changed from QID to q6hr for more even distribution. insurance company denied admission to LTAC. will continue to pursue this as an option. otherwise, OOB to chair daily. still working with speech. 09/24: did not sleep well overnight. agitated. awake most of the night. I removed stay sutures from trach this morning. 09/25: Received Haldol overnight, resting now. Not agitated. On PRVC/AC. CPAP trails to resume today. Somnolent but wakes up and follows commands 09/26: Continues to have large amount of tracheal secretions. Levaquin restarted sputum culture ordered. Chest x-ray is pending. Did not tolerate CPAP yesterday became tachycardic and hypoxic Subjective 09/27: Tolerated CPAP approximately 6-7 hours became tachypneic afterwards. Currently on full vent support FiO2 50%. Chest x-ray from yesterday shows bilateral pleural effusions/infiltrate right more than left. CT chest ordered cefepime added sputum culture is pending. More delirious at night, now with eyes open following commands EVENTS FROM 09/27/16 evening Patient was turned to left side for thoracentesis, he acutely desaturated to low 70s prior to starting the procedure. Patient was placed back in supine, bag and mask ventilation performed until sats came up to 98%. Patient was again partially turned to left side and thoracentesis was attempted. Even though ultrasound showed fluid, air was withdrawn into the syringe. Procedure was abandoned and patient was put in neutral position. Peak pressures on the vent increased and patient started desaturating to 70s indicating tension pneumothorax. The thoracentesis Angiocath was used for emergency decompression and bag and mask ventilation became easier. An emergency 8 Nigerien pigtail catheter was placed and connected to Pleur-evac. This had significant air leak but patient remained with low oxygen saturation in 70s. Additional 28 Nigerien chest tube was emergently placed with a gradual improvement in saturation to mid 80s. (Chest tube/Pigtail tray was not available immediately at the bedside , and the tech had to run to the [facility] to get the chest tube tray). Patient was placed back on PC/ACmechanical ventilation with low tidal volume. Post chest tube chest x-ray shows good reexpansion of the lung and good positioning of the chest tubes. But the left lung is collapsed with mediastinal shift to the left indicating bronchial obstruction probably from mucous plug. I attempted bronchoscopy with intubating bronchoscope available here at [place]. I was unable to suction out any mucus plugging, or visualize clearly. Patient was transferred to [facility] in [facility]. Dr. Espinoza performed therapeutic bronchoscopy with pediatric bronchoscope, and he was in able to clear a significant amount of secretion with reexpansion of lung. 09/27: Chest x-ray today shows right sided pneumothorax almost resolved. Good reexpansion of the left lung also bibasilar infiltrates seen. Sputum culture growing gram-negative rods. Patient is awake alert on full vent support. Levophed is being weaned currently on 4 mics per minute Objective Vital Signs Date Time Temp Pulse Resp B/P Pulse Ox O2 Delivery O2 Flow Rate FiO2 09/28/16 12:59 100 50 09/28/16 12:00 98.6 114 20 114/72 Intake and Output 09/27/16 09/27/16 09/28/16 08:00 16:00 00:00 Intake Total 768 ml 821 ml Output Total 900 ml 1800 ml 250 ml Balance -132 ml -979 ml -250 ml Result Diagram: 09/27/16213409/27/162134 Other Results Laboratory Tests Test 09/28/16 05:31 Blood Gas Puncture Site LT RADIAL Blood Gas Patient Temperature 98.6 Blood Gas HCO3 25 mmol/L (22-26) Blood Gas Base Excess 1.5 mmol/L (-2-2) Blood Gas Oxygen Saturation 94 % (90-100) Arterial Blood pH 7.50 (7.380-7.420) Arterial Blood Partial 32 mmHg (38-42) Pressure CO2 Arterial Blood Partial 77 mmHg Pressure O2 (61-120) Arterial Blood Oxygen Content 12.4 Vol % (12.0-20.0) Arterial Blood 1.6 % (0-4) Carboxyhemoglobin Arterial Blood Methemoglobin 0.7 % (0-2) Blood Gas Hemoglobin 9.3 G/DL (12.0-16.0) Oxygen Delivery Device VENTILATOR Blood Gas Ventilator Setting SEE COMMENT Blood Gas Inspired Oxygen 60 % Imaging Last Impressions Abdomen X-Ray 09/15/16 0600 Signed Impressions: Service Date/Time: Thursday, September 15, 2016 03:16 - CONCLUSION: 1. Improved gaseous distention of bowel since September 14. Mild distention persists. 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 There is concentric mural thrombus. This aneurysm is not amenable to thrombin injection. Polo Moore Jr., MD Lung Scan- Nuclear Medicine 08/29/16 0000 Signed Impressions: Service Date/Time: Monday, August 29, 2016 10:20 - CONCLUSION: Low probability for pulmonary embolus. Lex Lopez MD Brain MRI 08/27/16 0000 Signed Impressions: Service Date/Time: August 15:13 - CONCLUSION: No evidence of acute infarct, hemorrhage, mass or edema. No findings to suggest significant anoxic injury. Kit Power MD Renal Ultrasound 08/25/16 0000 Signed Impressions: Service Date/Time: Wednesday, August 24, 2016 21:53 - CONCLUSION: 1. There is no hydronephrosis. Both kidneys demonstrate mild increased echotexture of the parenchyma suggesting medical renal disease. 2. Trace perihepatic free fluid and bilateral pleural effusions. Lex Malik MD Chest CT 08/25/16 0000 Signed Impressions: Service Date/Time: Thursday, August 25, 2016 21:20 - CONCLUSION: 1. Bilateral pneumonia and aspiration would be in the differential. There is dependent consolidation/atelectasis and small effusions of the bases as well. 2. Upper limits of normal to mildly enlarged mediastinal lymph nodes, most likely reactive. 3. Coronary artery calcification. 4. Right rib fractures, including acute fractures laterally of the third, fourth and fifth. There are old, healed fractures anteriorly of the right second and third ribs.. Lex Lopez MD Abdomen/Pelvis CT 08/25/16 0000 Signed Impressions: Service Date/Time: Thursday, August 25, 2016 20:20 - CONCLUSION: 1. Ventral hernia containing small bowel and with associated small bowel obstruction. The defect is broad; I believe the obstruction is probably related to scarring and/or adhesions within the hernia sac. I don't see a mass. 2. Distended stomach despite NG tube present. 3. Severe aortoiliac atherosclerosis. No aneurysm. Lex Lopez MD Objective Remarks GENERAL: Patient is 71 yo lying in bed in bed, anxious, follows commands SKIN: Warm and dry. HEAD: Normocephalic. EYES: No scleral icterus. No injection or drainage. NECK: trachea midline. No JVD. Trach in place. Copious yellow trach secretions CARDIOVASCULAR: Regular rate and rhythm without murmurs, gallops, or rubs. RESPIRATORY: Breath sounds equal bilaterally, coarse rhonchi bilaterally predominantly at the bases, few coarse crackles. R 28F chest tube and R pigtail chest tube in place GASTROINTESTINAL: Abdomen soft, non-tender, nondistended. MUSCULOSKELETAL: No cyanosis, +1 edema. NEURO: Awake, follows commands. Anxious. No FND A/P Assessment and Plan Neuro/Psych: Status post CPR 15 minutes Depression NOS Agitated Delirium --Neurochecks per ICU protocol --Zyprexa 10 mg q8h 09/27 (will reduce dose to total 20 mg gradually) --Melatonin q hs for sleep --prn breakthrough haldol for agitation --d/cd ativan due to paradoxical agitation. Continue Xanax 0.25 mg by mouth every 8 hours when necessary 09/26 --EEG 08/25 revealed mild to moderate encephalopathy. No epileptiform activity. --MRI brain 08/27 revealed no acute findings. Cardiovascular: Septic shock Cardiac arrest status post CPR Elevated troponin History dyslipidemia History of hypertension PVD Possible femoral pseudoaneurysm Currently on Levophed 4 mcg/m -wean to DC keeping map above 65 Monitor HR and BP keep MAP>65mmHg Hold Cardizem 60mg QID, Hydralazine 50mg Q8 while hypertensive Cardiac arrest status post CPR. s/p aggressive fluid resuscitation. minimal troponin elevation following cardiac arrest noted Echo 2D revealed EF 35-40%. Moderate LVH. Mitral valve calcified. Mild TR. Pulmonary: Tension pneumothorax s/p chest tube 09/27 Complete left lung collapse from mucous plugging 09/27 HCAP with GNR Acute respiratory failure secondary to aspiration pneumonia- Reintubated 09/06 s/p Trach on 09/08 End-stage COPD. Oxygen dependent FEV1 28%, FVC 1.6. S/P Aspiration 09/15 Status post emergency chest tube 2 for tension pneumothorax (09/27) following right attempted thoracentesis Maintain pigtail to -21 suction, 28 Nigerien chest tube to -40 Status post bronchoscopy for mucous plugging of the left main bronchus 09/27 s/p reintubation and bronch 09/06 mucous plugs in left main stem bronchus Continue with vent support keep sat >90%. PRVC. Initiate CPAP in 24 hours Bronchodilators, Pulmicort twice a day Needs aggressive pulmonary rehab with LTAC. Continues to be very weak VQ scan low probability 08/29 ICU vent bundle, pulm toilet, trach care F/U CXR GI: Small bowel obstruction - resolved Upper GI bleed plus esophageal rule out aorto esophageal fistula History of Ashley esophagitis History of colonic polyps History of ventral hernia status post repair last by Dr. Roberts Diarrhea Continue to hold tube feeds which was held for procedures yesterday, patient anemic to 6.5 Continue Reglan 5mg IV Q8, Senna, Lactulose, Colace. having BM From a GI standpoint, use nasogastric access at this time. continue frequent speech eval for swallowing, once clinically improved. s/p EGD 09/09: Deformed pylorus/antrum, nodular mucosa-multiple biopsies taken esophagitis distal esophagus-biopsy unable to place PEG endoscopically due to hiatal hernia. CT abdomen/pelvis revealed possible small bowel obstruction at level of ventral hernia. Severe aortoiliac disease. Dr. Roberts/general surgery evaluated. Very poor surgical candidate this time. EGD 08/25 revealed esophageal nipple. Clots noted within the gastric contents without active bleeding. Protonix for GI prophylaxis, 40 mg IV q12 Hold Bowel regimen for diarrhea. nursing home nutrition plan: Feeding per DHT. the patient does not have a contraindication to replacement of DHT if it comes out accidentally. Continue speech/swallow eval and strengthening. I do think he will be strong enough to eat PO in the near future and will not medically require surgical feeding tube. Surgical feeding tube high risk given hernia. risks outweigh benefits. we have a defined long-term enteral feeding plan. Renal/: Acute kidney injury- resolved Hypernatremia History of bladder outlet obstruction Monitor renal function, I/O's, electrolytes replacement per protocol. Free water flushes 300ml Q6 monitor sodium level No hydronephrosis on CT abdomen/pelvis ID: New HCAP Severe sepsis UTI Fungemia Stenotrophomonas HCAP, Off abx. monitor for signs of infections ( Fever, WBC) s/p course of Levaquin 09/10 - 09/16 s/p course of micafungin for fungemia Restarted Levaquin 09/26 secondary to increased secretions send sputum culture, Added cefepime 09/27 ID following Pertinent cultures 09/26: Sputum GNR 09/08 Bronch: S. Maltophilia, 09/06 Bronch- S. Maltophilia, 09/03 - blood culture - no growth 09/02 - blood culture - no growth 08/27 - blood from central line -Ashley Glabrata 08/27 -arterial line blood - pending 08/26 - sputum -Serratia 08/25 - blood cultures 2 -Ashley 08/25 - urine -no growth 08/22 - blood cultures 2 - no growth 08/21 - urine - no growth 08/20 - blood cultures 2 - 1 out of 4 staph epi Endocrine: Chronic prednisone use secondary to COPD SSI for glycemic control as needed. Heme: s/p Acute blood loss anemia History of prostate cancer Status post 4 units PRBCs ands 2 units FFP on 08/24. Given one unit PRBCs 08/26, 1U 09/26 Additional 1 unit 09/28/16 Monitor CBC H/H stable. MSK: PT/OT evaluate and treat. Attempt up to chair daily with PT Access - peripheral IV's, PICC line placed 09/11 Prophylaxis - GI -Protonix 40 q12 - DVT - SCD/ heparin 5000 u Sq Q12- cleared by GI. Hold for 24 hours due to drop in Hb CCT 60 MIN- remains critically ill with sepsis, new pneumonia, tension pneumothorax requiring right chest tube 2 and septic shock Isaias Burnett MD Sep 28, 2016 14:25
[2016-09-28 14:28] LABS: BANDS 10 % (0-6); METAMYELOCYTES 1 % (0-1); POLYS (SEG NEUTROPHILS) 77 % (16-70); WBC DIFF SAMPLE 100
[2016-09-28 14:29] LABS: ALKALINE PHOSPHATASE 103 U/L (45-117); ALT (GPT) 13 U/L (12-78); ANION GAP 9 MEQ/L (5-15); AST (GOT) 12 U/L (15-37); BICARBONATE 25.7 MEQ/L (21.0-32.0); BLOOD UREA NITROGEN 13 MG/DL (7-18); CHLORIDE 101 MEQ/L (98-107); GLOMERULAR FILTRATION RATE 131 ML/MIN (>89); PLATELET ESTIMATE SMEAR NORMAL (NORMAL); PLATELET MORPHOLOGY NORMAL (NORMAL); POTASSIUM 3.6 MEQ/L (3.5-5.1); SCAN/DIFF FINAL DIFF MANUAL; SODIUM (NA) 136 MEQ/L (136-145); TOTAL BILIRUBIN ADULT 0.5 MG/DL (0.2-1.0)
[2016-09-28] MEDS: MELATONIN 5 MG TAB PO SCH (21:03)
[2016-09-29] VITALS (19 sets, daily range): BP systolic 110–144; BP diastolic 60–83; PULSE 85–108; RESP 17–31; TEMP 98.1–98.9; O2SAT 97–100
[2016-09-29] MEDS: FREE WATER G-TUBE SCH ×4 (03:46→17:18)
[2016-09-29] MEDS: OLANZapine ODT 5 MG TAB PO SCH ×3 (03:47→17:18)
[2016-09-29] MEDS: METOCLOPRAMIDE HCL 10 MG/2 ML VIAL IV PUSH SCH ×3 (03:48→15:25)
[2016-09-29] MEDS: RESP: ALBUTEROL 2.5 MG/IPRATROPIUM 0.5 MG NEB (SCH) NEB ×4 (03:58→19:45)
[2016-09-29] MEDS: RESP: ACETYLCYSTEINE 10% 30 ML NEB NEB SCH ×4 (03:59→19:45)
[2016-09-29 05:29] LABS: BASOPHIL % 0.6 % (0.0-2.0); EOSINOPHIL # 0.1 TH/MM3 (0-0.4); EOSINOPHIL % 1.1 % (0.0-4.0); HEMATOCRIT 25.4 % (39.0-51.0); LYMPH % 7.3 % (9.0-44.0); LYMPHOCYTE # 0.5 TH/MM3 (1.0-4.8); MEAN CORPUSCULAR HEMOGLOBIN 31.1 PG (27.0-34.0); MEAN CORPUSCULAR HGB CONC 35.4 % (32.0-36.0); MONO % 9.9 % (0.0-8.0); NEUT % 81.1 % (16.0-70.0); PLATELET COUNT 208 TH/MM3 (150-450); RED BLOOD COUNT 2.89 MIL/MM3 (4.50-5.90); RED CELL DISTRIBUTION WIDTH 17.2 % (11.6-17.2); WHITE BLOOD COUNT 7.4 TH/MM3 (4.0-11.0)
[2016-09-29 05:54] LABS: BICARBONATE 24.9 MEQ/L (21.0-32.0); POTASSIUM 3.5 MEQ/L (3.5-5.1)
[2016-09-29 05:59] LABS: HEMO FLAGS AUTO DIFF
[2016-09-29] MEDS: INSULIN NovoLIN REGULAR SUPPLEMENTAL SCALE SQ SCH ×4 (06:00→17:18)
--- NOTE | 2016-09-29 06:51 | RADRPT ---
EXAM DATE/TIME: 09/29/2016 05:37 [place] COMPARISON: No previous studies available for comparison. INDICATIONS : Shortness of breath. MEDICAL HISTORY : Chronic obstructive pulmonary disease. Emphysema. SURGICAL HISTORY : None. ENCOUNTER: Subsequent ACUITY: 1 week PAIN SCORE: Non-responsive. LOCATION: Bilateral chest FINDINGS: A single view of the chest demonstrates enlarging right-sided pneumothorax measuring 2.9 cm of pleura l separation. 2 right-sided chest tubes are noted. Bilateral pleural-parenchymal densities. Tracheost [place] tube unchanged. Osseous structures are intact. CONCLUSION: Enlarging right-sided pneumothorax. Eduardo Mcconnell MD on September 29, 2016 at 6:49 Board Certified Radiologist. This report was verified electronically.
[2016-09-29] MEDS: NYSTATIN 100,000 U/GM PWD 15 GM BTL TOPICAL SCH ×3 (07:19→21:17)
[2016-09-29] MEDS: CEFEPIME INJ 2,000 MG in SODIUM CHLORIDE 0.9% INJ 100 ML IV SCH (07:19)
[2016-09-29] MEDS: CHLORHEXIDINE GLUCONATE 0.12% 15 ML CUP SCH ×2 (08:00→20:00)
[2016-09-29] MEDS: RESP: BUDESONIDE 0.5 MG/2 ML NEB NEB SCH ×2 (08:10→19:45)
[2016-09-29 08:16] LABS: BANDS 4 % (0-6); EOSINOPHILS 1 % (0-4); METAMYELOCYTES 1 % (0-1); MYELOCYTES 2 % (0-0); NEUTROPHIL # MANUAL DIFF 6.4 TH/MM3 (1.8-7.7); PLATELET ESTIMATE SMEAR NORMAL (NORMAL); PLATELET MORPHOLOGY NORMAL (NORMAL); POLYS (SEG NEUTROPHILS) 79 % (16-70); SCAN/DIFF FINAL DIFF MANUAL; WBC DIFF SAMPLE 100
[2016-09-29 08:24] LABS: ACANTHOCYTES OCC (NORMAL)
[2016-09-29] MEDS: MULTIVITAMINS/MINERALS THERAPEUTIC TAB PO SCH (08:44)
[2016-09-29] MEDS: DOXAZOSIN MESYLATE 2 MG TAB PO SCH (08:44)
[2016-09-29] MEDS: SENNOSIDES SYRUP 8.8 MG/5 ML CUP PO SCH (08:44)
[2016-09-29] MEDS: DOCUSATE SODIUM 100 MG/10 ML UDC PO SCH ×2 (08:44→21:16)
[2016-09-29] MEDS: LACTULOSE SYRUP 20 GM/30 ML CUP PO SCH (08:44)
[2016-09-29] MEDS: TAMSULOSIN HCL 0.4 MG CAP PO SCH (08:45)
[2016-09-29] MEDS: PANTOPRAZOLE SODIUM 40 MG VIAL IV PUSH SCH ×2 (08:46→21:17)
[2016-09-29] MEDS: LEVOFLOXACIN 750 MG PREMIX INJ 150 ML IV SCH (08:47)
[2016-09-29] MEDS: SODIUM CHLORIDE 0.9% FLUSH 5 ML FLUSH IVF SCH (09:00)
[2016-09-29] MEDS: COLLAGENASE OINT 30 GM TUBE TOP SCH (09:00)
--- NOTE | 2016-09-29 09:25 | HHI.CCPN ---
Subjective Remarks/Hospital Course 08/24: 71 Year-old male with a medical history significant for COPD on home oxygen who was recently admitted with suspected sepsis/H And was initiated on IV antibiotics and steroids. He had recently been evaluated by GI and underwent EGD on 08/10/2016 and was found to have moderate esophagitis, mild gastritis with pathology subsequently showing Ashley esophagitis as well as colonoscopy on 08/11/2016 with polypectomy and ablation of polyp in ascending colon with hot snare. Patient has been dealing with constipation since his admission. Today when he was trying to have a bowel movement he suddenly became less responsive and then had a large emesis which resulted in aspiration and hemodynamic collapse. Patient initially had large volume emesis with dark maroon blood. CODE BLUE cardiac arrest code was activated. On my arrival patient was in bed CPR had been initiated. Significant gastric contents was still being suctioned out of his oral cavity. ACLS protocol was continued. Patient was intubated following vigorous suctioning of gastric contents from oral cavity as well as with placement of NG tube which is hooked up to suction and about 1.5 L of gastric contents being suctioned out which appeared to be dark maroon in color. Patient initially had a pulse when CODE BLUE was called and subsequently went in PEA arrest followed by asystole during ACLS and then V. fib for which he was defibrillated with 200 J 1, CPR/ACLS protocol was continued and patient eventually had return of spontaneous circulation after about 15 minutes of CPR/ACLS. Patient was transferred to [facility] and placed on mechanical ventilation. I emergently placed left femoral central line for central vascular access and he was started on Levophed for pressor support. 2 units of O- 1 crossmatch blood were ordered and transfused stat. He also received 1 L of normal saline bolus following return of spontaneous circulation. Stat labs were ordered. His hemoglobin on ABG done post resuscitation was 5.6. I did order Protonix 80 mg IV stat followed by 8 mg per hour IV infusion. Patient remained encephalopathic though was minimally responsive following transfer to the ICU. GI consult was requested and I spoke with Dr. Zamarripa at bedside on his arrival. History was obtained by reviewing records, discussion with family/ GI as well as nursing staff. According to patient's daughter he has not been doing well for the last few months in terms of his breathing and has been using his home oxygen more often. He gets extremely short of breath even with the least exertion. 08/25: Remains encephalopathic/ sedated, [facility]. Transiently off levophed last night however back to 11 mcg/min currently. Hgb up to 9.4 following 4 units PRBCs transfused last night. 08/26: Tmax 99. Some unresponsive on the ventilator. CT abdomen/pelvis less than revealed small bowel obstruction at site of ventral hernia. No further bleeding noted. Gastric output approximately 700 cc. No bowel movement. 08/27: Tmax 99.7. Currently afebrile. Positive BM overnight approximately 1 L according to RN. No blood noted. 100 cc from gastric tube overnight. Hemoglobin corrected a properly. Likely dilutional. Noted fungemia currently issue. Opens eyes to voice. 08/28: Tmax 99.1. No BMs overnight. Minimal gastric tube output. Hemoglobin stable 9.5. Opens eyes to voice. Not following commands. Appears with singultus this morning. 08/29: 20 beat run of wide complex tachycardia overnight. Noted potassium 3.2. This is been replaced. We'll recheck this afternoon. Circuit exchange yesterday. Patient tolerating pressure control ventilation much better than PRVC/AC ventilation is low probably VQ scan. Less FiO2 requirements. No BM past 24 hour. 08/30: Unable to wean ventilator. 08/31: Patient was extubated on 08/30 however became tachypneic with use of accessory muscles of respiration and required reintubation around 6:30 PM last night and was placed back on mechanical ventilation. Currently sedated, orally intubated on mechanical ventilation. Post intubation chest x-ray suggested fluid overload for which she was given Lasix 40 mg IV with good response having made about 2.5 L urine the last 7 hours. 09/01: Remains sedated, orally intubated on mechanical ventilation. Diuresing well with Lasix. Awaiting EGD in a.m. 09/02: Little progress. CXR clearing nicely. Continue diuresis, tolerate hypernatremia. 09/03: Good diuretic response. CRISTHIAN today with no valvar pathology. 09/04: Too weak to tolerate extubation. Will require trach. 09/05: Sedated, arousable, following commands. Tolerated C Pap trial for 9 hours yesterday with pressure support +10. Tolerating tube feeds. 09/06: Extubated yesterday. Chest x-ray reveals likely mucous plugging in left lung garcia. Currently on nonrebreather mask. Planning of insomnia and thick secretions that he is unable to cough up. 09/07 Patient s/p reintubation and bronch 09/06 mucous plugs in left main stem bronchus sedated with Diprivan and Fentanyl. Afebrile. For possible trach tomorrow. 09/08 No acute events overnight. Sedated with Diprivan and Fentanyl. Afebrile. For trach today. 09/09 No acute events overnight. Sedated and intubated. s/p trach yesterday for PEG tube placement today. 09/10 Patient remains sedated and on ventilator via trach. s/p EGD yesterday PEG tube couldn't be placed endoscopically due to hernia. Surgery consulted for J-tube placement. Afebrile. 09/11 No acute events overnight. Sedated with Diprivan, Fentanyl and intubated. Afebrile. Tolerating tube feeds. 09/12 Patient is off Diprivan remains on Fentanyl infusion tolerated CPAP trials for several hrs and TP's x 2 hrs yesterday now on TP with 50% FIO2. Afebrile. 09/13 Patient tolerated TP's all day yesterday placed on PRVC/AC mode overnight. TF held for high residuals. Afebrile. On Fentanyl infusion however he is awake, restless. 09/14 No acute events overnight. Tolerated TP's all day yesterday placed back on ventilator overnight. On Fentanyl infusion. Afebrile. Repeat KUB this morning showed ileus. 09/15 Patient is off fentanyl infusion and is on Precedex drip pulled his NGT overnight. KUB this morning showed improvements in gaseous distention of bowel. 09/16 Yesterday afternoon an NG tube was placed patient was noted to have tube feeds with possible aspiration.NGT placed this am, KUB pending. 09/17: no acute events overnight. tolerated cpap. back on rate overnight. this morning on trach collar. 09/18: prior history of constipation, now with diarrhea. otherwise, awaiting placement. 09/19: diarrhea improving. still awaiting placement. 09/20: still doing well. on trach collar this morning on my evaluation. insurance has not yet approved placement. 09/21: tired out on trach collar yesterday. placed intermittently on cpap. insurance denied LTAC. will work towards [id number]. 09/22: had [id number] today. insurance continues to request permanent surgical feeding access to go to LTAC. My medical opinion is that patient is clinically improving and tolerating DHT without complication, and could safely be fed through DHT for the coming weeks, and I anticipate his dysphagia to resolve as his strength improves. I do not see a clinical indication for permanent surgical gastric access. We also are not a rehab center, and he is not getting medically appropriate care for his level of medical need. He does not require ICU admission, and medically would be more appropriate for LTAC. 09/23: transferred to [facility]. doing well. tachycardic this morning. diltiazem changed from QID to q6hr for more even distribution. insurance company denied admission to LTAC. will continue to pursue this as an option. otherwise, OOB to chair daily. still working with speech. 09/24: did not sleep well overnight. agitated. awake most of the night. I removed stay sutures from trach this morning. 09/25: Received Haldol overnight, resting now. Not agitated. On PRVC/AC. CPAP trails to resume today. Somnolent but wakes up and follows commands 09/26: Continues to have large amount of tracheal secretions. Levaquin restarted sputum culture ordered. Chest x-ray is pending. Did not tolerate CPAP yesterday became tachycardic and hypoxic Subjective 09/27: Tolerated CPAP approximately 6-7 hours became tachypneic afterwards. Currently on full vent support FiO2 50%. Chest x-ray from yesterday shows bilateral pleural effusions/infiltrate right more than left. CT chest ordered cefepime added sputum culture is pending. More delirious at night, now with eyes open following commands EVENTS FROM 09/27/16 evening Patient was turned to left side for thoracentesis, he acutely desaturated to low 70s prior to starting the procedure. Patient was placed back in supine, bag and mask ventilation performed until sats came up to 98%. Patient was again partially turned to left side and thoracentesis was attempted. Even though ultrasound showed fluid, air was withdrawn into the syringe. Procedure was abandoned and patient was put in neutral position. Peak pressures on the vent increased and patient started desaturating to 70s indicating tension pneumothorax. The thoracentesis Angiocath was used for emergency decompression and bag and mask ventilation became easier. An emergency 8 [place] pigtail catheter was placed and connected to Pleur-evac. This had significant air leak but patient remained with low oxygen saturation in 70s. Additional 28 [place] chest tube was emergently placed with a gradual improvement in saturation to mid 80s. (Chest tube/Pigtail tray was not available immediately at the bedside , and the tech had to run to the [facility] to get the chest tube tray). Patient was placed back on PC/ACmechanical ventilation with low tidal volume. Post chest tube chest x-ray shows good reexpansion of the lung and good positioning of the chest tubes. But the left lung is collapsed with mediastinal shift to the left indicating bronchial obstruction probably from mucous plug. I attempted bronchoscopy with intubating bronchoscope available here at [place]. I was unable to suction out any mucus plugging, or visualize clearly. Patient was transferred to [facility] in [facility]. Dr. Espinoza performed therapeutic bronchoscopy with pediatric bronchoscope, and he was in able to clear a significant amount of secretion with reexpansion of lung. 09/28: Chest x-ray today shows right sided pneumothorax almost resolved. Good reexpansion of the left lung also bibasilar infiltrates seen. Sputum culture growing gram-negative rods. Patient is awake alert on full vent support. Levophed is being weaned currently on 4 mics per minute 09/29: Remains on mechanical ventilation via tracheostomy. Continues to have persistent air leak from right sided pigtail catheter as well as chest tube. Chest x-ray today shows slight increase in size of right pneumothorax. Objective Vital Signs Date Time Temp Pulse Resp B/P Pulse Ox O2 Delivery O2 Flow Rate FiO2 09/29/16 08:11 100 40 09/29/16 06:00 108 09/29/16 04:00 98.3 21 113/72 Intake and Output 09/28/16 09/28/16 09/29/16 08:00 16:00 00:00 Intake Total 1488 ml 1354 ml 2316 ml Output Total 925 ml 335 ml 1421 ml Balance 563 ml 1019 ml 895 ml Result Diagram: 09/29/16 0500 09/29/16 0500 Imaging Last Impressions Abdomen X-Ray 09/15/16 0600 Signed Impressions: Service Date/Time: Thursday, September 15, 2016 03:16 - CONCLUSION: 1. Improved gaseous distention of bowel since September 14. Mild distention persists. 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 There is concentric mural thrombus. This aneurysm is not amenable to thrombin injection. Polo Moore Jr., MD Lung Scan- Nuclear Medicine 08/29/16 0000 Signed Impressions: Service Date/Time: Monday, August 29, 2016 10:20 - CONCLUSION: Low probability for pulmonary embolus. Lex Lopez MD Brain MRI 08/27/16 0000 Signed Impressions: Service Date/Time: August 15:13 - CONCLUSION: No evidence of acute infarct, hemorrhage, mass or edema. No findings to suggest significant anoxic injury. Kit Power MD Renal Ultrasound 08/25/16 0000 Signed Impressions: Service Date/Time: Wednesday, August 24, 2016 21:53 - CONCLUSION: 1. There is no hydronephrosis. Both kidneys demonstrate mild increased echotexture of the parenchyma suggesting medical renal disease. 2. Trace perihepatic free fluid and bilateral pleural effusions. Lex Malik MD Chest CT 08/25/16 0000 Signed Impressions: Service Date/Time: Thursday, August 25, 2016 21:20 - CONCLUSION: 1. Bilateral pneumonia and aspiration would be in the differential. There is dependent consolidation/atelectasis and small effusions of the bases as well. 2. Upper limits of normal to mildly enlarged mediastinal lymph nodes, most likely reactive. 3. Coronary artery calcification. 4. Right rib fractures, including acute fractures laterally of the third, fourth and fifth. There are old, healed fractures anteriorly of the right second and third ribs.. Lex Lopez MD Abdomen/Pelvis CT 08/25/16 0000 Signed Impressions: Service Date/Time: Thursday, August 25, 2016 20:20 - CONCLUSION: 1. Ventral hernia containing small bowel and with associated small bowel obstruction. The defect is broad; I believe the obstruction is probably related to scarring and/or adhesions within the hernia sac. I don't see a mass. 2. Distended stomach despite NG tube present. 3. Severe aortoiliac atherosclerosis. No aneurysm. Lex Lopez MD Objective Remarks GENERAL: Patient is 71 yo lying in bed in bed, on mechanical ventilation via tracheostomy, follows commands SKIN: Warm and dry. HEAD: Normocephalic. EYES: No scleral icterus. No injection or drainage. NECK: trachea midline. No JVD. Trach in place. Copious yellow thick secretions CARDIOVASCULAR: Regular rate and rhythm without murmurs, gallops, or rubs. RESPIRATORY: Breath sounds equal bilaterally, coarse rhonchi bilaterally predominantly at the bases, few coarse crackles. R 28F chest tube and R pigtail chest tube in place, positive air leak in both GASTROINTESTINAL: Abdomen soft, non-tender, nondistended. MUSCULOSKELETAL: No cyanosis, +1 edema. NEURO: Awake, follows commands. Grossly nonfocal A/P Assessment and Plan Neuro/Psych: Status post CPR 15 minutes Depression NOS Agitated Delirium --Neurochecks per ICU protocol --Zyprexa 10 mg q8h 09/27 (will reduce dose to total 20 mg gradually) --Melatonin q hs for sleep --prn breakthrough haldol for agitation --d/cd ativan due to paradoxical agitation. Continue Xanax 0.25 mg by mouth every 8 hours when necessary 09/26 --EEG 08/25 revealed mild to moderate encephalopathy. No epileptiform activity. --MRI brain 08/27 revealed no acute findings. Cardiovascular: Septic shock Cardiac arrest status post CPR Elevated troponin History dyslipidemia History of hypertension PVD Possible femoral pseudoaneurysm Off Levophed Monitor HR and BP keep MAP>65mmHg Hold Cardizem 60mg QID, Hydralazine 50mg Q8 while hypertensive Cardiac arrest status post CPR. s/p aggressive fluid resuscitation. minimal troponin elevation following cardiac arrest noted Echo 2D revealed EF 35-40%. Moderate LVH. Mitral valve calcified. Mild TR. Pulmonary: Tension pneumothorax s/p chest tube 09/27 Complete left lung collapse from mucous plugging 09/27 HCAP with GNR Acute respiratory failure secondary to aspiration pneumonia- Reintubated 09/06 s/p Trach on 09/08 End-stage COPD. Oxygen dependent FEV1 28%, FVC 1.6. S/P Aspiration 09/15 Status post emergency chest tube 2 for tension pneumothorax (09/27) following right attempted thoracentesis, 28 [place] chest tube to -40cm water pressure. Right sided pigtail catheter appears to be out on chest x-ray and subsequently per RN was found to be dislodged and outside the chest wall. Following removal of the pigtail catheter air leak from the chest tube stopped. We'll repeat a chest x-ray later to follow-up on pneumothorax. Status post bronchoscopy for mucous plugging of the left main bronchus 09/27 s/p reintubation and bronch 09/06 mucous plugs in left main stem bronchus Continue with vent support keep sat >90%. PRVC. Daily C Pap trials, T piece as tolerated. Bronchodilators, Pulmicort twice a day Needs aggressive pulmonary rehab with LTAC. Continues to be very weak VQ scan low probability 08/29 ICU vent bundle, pulm toilet, trach care F/U CXR GI: Small bowel obstruction - resolved Upper GI bleed plus esophageal rule out aorto esophageal fistula History of Ashley esophagitis History of colonic polyps History of ventral hernia status post repair last by Dr. Roberts Diarrhea Resume tube feeds and advanced to goal as tolerated. Continue Reglan 5mg IV Q8, Senna, Lactulose, Colace. having BM From a GI standpoint, use nasogastric access at this time. continue frequent speech eval for swallowing, once clinically improved. s/p EGD 09/09: Deformed pylorus/antrum, nodular mucosa-multiple biopsies taken esophagitis distal esophagus-biopsy unable to place PEG endoscopically due to hiatal hernia. CT abdomen/pelvis revealed possible small bowel obstruction at level of ventral hernia. Severe aortoiliac disease. Dr. Roberts/general surgery evaluated. Very poor surgical candidate this time. EGD 08/25 revealed esophageal nipple. Clots noted within the gastric contents without active bleeding. Protonix for GI prophylaxis, 40 mg IV q12 Hold Bowel regimen for diarrhea. intermediate frame tender nutrition plan: Feeding per DHT. the patient does not have a contraindication to replacement of DHT if it comes out accidentally. Continue speech/swallow eval and strengthening. I do think he will be strong enough to eat PO in the near future and will not medically require surgical feeding tube. Surgical feeding tube high risk given hernia. risks outweigh benefits. we have a defined long-term enteral feeding plan. Renal/: Acute kidney injury- resolved Hypernatremia History of bladder outlet obstruction Monitor renal function, I/O's, electrolytes replacement per protocol. Free water flushes 300ml Q6 monitor sodium level No hydronephrosis on CT abdomen/pelvis ID: New HCAP Severe sepsis UTI Fungemia Stenotrophomonas HCAP, s/p course of Levaquin 09/10 - 09/16 s/p course of micafungin for fungemia Restarted Levaquin 09/26 secondary to increased secretions send sputum culture, Added cefepime 09/27 ID following Pertinent cultures 09/26: Sputum GNR 09/08 Bronch: S. Maltophilia, 09/06 Bronch- S. Maltophilia, 09/03 - blood culture - no growth 09/02 - blood culture - no growth 08/27 - blood from central line -Ashley Glabrata 08/27 -arterial line blood - pending 08/26 - sputum -Serratia 08/25 - blood cultures 2 -Ashley 08/25 - urine -no growth 08/22 - blood cultures 2 - no growth 08/21 - urine - no growth 08/20 - blood cultures 2 - 1 out of 4 staph epi Endocrine: Chronic prednisone use secondary to COPD SSI for glycemic control as needed. Heme: s/p Acute blood loss anemia History of prostate cancer Status post 4 units PRBCs ands 2 units FFP on 08/24. Given one unit PRBCs 08/26, 1U 09/26 Additional 1 unit 09/28/16 Monitor CBC H/H stable. MSK: PT/OT evaluate and treat. Attempt up to chair daily with PT Access - peripheral IV's, PICC line placed 09/11 Prophylaxis - GI -Protonix 40 q12 - DVT - SCD/ heparin 5000 u Sq Q12- cleared by GI. Hold for 24 hours due to drop in Hb CCT 40 MIN- remains critically ill with sepsis, new pneumonia, tension pneumothorax requiring right chest tube 2. Blair Espinoza MD Sep 29, 2016 09:25
[2016-09-29] MEDS: SODIUM CHLORIDE 0.9% FLUSH 10 ML FLUSH IV FLUSH SCH (09:31)
[2016-09-29] MEDS: HYDROmorphone HCL PF 1 MG/ML VIAL IV PRN (10:45)
--- NOTE | 2016-09-29 10:51 | HHI.IDPN ---
Subjective Subjective Remarks Events noted Temps ok On the vent Not in distress Awake and alert Has 2 CT on R Had bronch and C/S with Sten mal again Has a lot of trach secretions BP better Has completed Rx for Sten mal PNA 09/16 Complete Rx fro candidemia 09/23 Antibiotics Levaquin, restarted 09/26 Cefepime - 09/27 Lines PICC - 09/11 Past Medical History Reviewed Allergies: Coded Allergies: *MDRO Multi-Drug Resistant Organism (Verified Adverse Reaction, Unknown, ) MRSA (abdominal wound) 2015 per 04/10/2015 H&P MRSA PCR Screen #1 NEGATIVE - 08/21/16 Objective . Vital Signs Date Time Temp Pulse Resp B/P Pulse Ox O2 Delivery O2 Flow Rate FiO2 09/29/16 10:00 97 09/29/16 08:11 100 40 09/29/16 08:11 40 09/29/16 08:00 98.1 90 20 110/60 100 09/29/16 08:00 90 09/29/16 08:00 40 09/29/16 06:00 108 09/29/16 04:10 98 40 09/29/16 04:00 40 09/29/16 04:00 98.3 98 21 113/72 99 09/29/16 04:00 98 09/29/16 02:00 86 09/29/16 00:54 99 40 09/29/16 00:00 40 09/29/16 00:00 98.3 85 18 128/76 100 09/29/16 00:00 85 09/28/16 22:32 100 40 09/28/16 22:00 95 09/28/16 22:00 98.1 94 25 119/60 98 09/28/16 20:00 40 09/28/16 20:00 98.1 90 25 131/70 100 09/28/16 20:00 94 09/28/16 19:45 100 40 09/28/16 18:15 97.9 89 16 128/79 100 09/28/16 18:00 97.8 90 18 144/75 100 09/28/16 18:00 90 09/28/16 17:18 40 09/28/16 17:18 100 40 09/28/16 16:00 40 09/28/16 16:00 84 09/28/16 16:00 98.5 84 18 114/56 98 09/28/16 15:55 98.5 83 18 114/56 99 09/28/16 15:48 99 40 09/28/16 15:40 98.2 89 18 112/63 99 09/28/16 15:25 98.5 85 19 126/59 99 09/28/16 14:00 96 09/28/16 13:00 40 09/28/16 12:59 100 50 09/28/16 12:00 50 09/28/16 12:00 98.6 114 20 114/72 100 09/28/16 12:00 114 09/28/16 09/28/16 09/29/16 15:00 23:00 07:00 Intake Total 1354 ml 2316 ml 1166 ml Output Total 335 ml 1421 ml 535 ml Balance 1019 ml 895 ml 631 ml IV Total 1054 ml 2016 ml 566 ml Tube Feeding 0 ml 0 ml Other 300 ml 300 ml 600 ml Output Urine Total 300 ml 1375 ml 515 ml Chest Tube Drainage Total 35 ml 46 ml 20 ml # Bowel Movements 0 0 0 . Laboratory Tests Test 09/27/16 09/28/16 09/29/16 21:35 13:50 05:00 White Blood Count 16.6 TH/MM3 9.1 TH/MM3 7.4 TH/MM3 Red Blood Count 2.76 MIL/MM3 2.11 MIL/MM3 2.89 MIL/MM3 Hemoglobin 8.4 GM/DL 6.5 GM/DL 9.0 GM/DL Hematocrit 25.4 % 19.5 % 25.4 % Mean Corpuscular Volume 92.0 FL 92.3 FL 88.0 FL Mean Corpuscular Hemoglobin 30.4 PG 30.7 PG 31.1 PG Mean Corpuscular Hemoglobin 33.0 % 33.3 % 35.4 % Concent Red Cell Distribution Width 17.0 % 16.5 % 17.2 % Platelet Count 273 TH/MM3 191 TH/MM3 208 TH/MM3 Mean Platelet Volume 8.9 FL 8.9 FL 8.5 FL Neutrophils (%) (Auto) 84.8 % 81.1 % Lymphocytes (%) (Auto) 4.9 % 7.3 % Monocytes (%) (Auto) 9.9 % 9.9 % Eosinophils (%) (Auto) 0.2 % 1.1 % Basophils (%) (Auto) 0.2 % 0.6 % Neutrophils # (Auto) 7.7 TH/MM3 6.0 TH/MM3 Lymphocytes # (Auto) 0.4 TH/MM3 0.5 TH/MM3 Monocytes # (Auto) 0.9 TH/MM3 0.7 TH/MM3 Eosinophils # (Auto) 0.0 TH/MM3 0.1 TH/MM3 Basophils # (Auto) 0.0 TH/MM3 0.0 TH/MM3 CBC Comment AUTO DIFF AUTO DIFF Differential Total Cells 100 100 Counted Neutrophils % (Manual) 77 % 79 % Band Neutrophils % 10 % 4 % Lymphocytes % 6 % 7 % Monocytes % 6 % 6 % Neutrophils # (Manual) 8.0 TH/MM3 6.4 TH/MM3 Metamyelocytes 1 % 1 % Differential Comment FINAL DIFF FINAL DIFF MANUAL MANUAL Platelet Estimate NORMAL NORMAL Platelet Morphology Comment NORMAL NORMAL Eosinophils % 1 % Myelocytes 2 % Acanthocytes OCC Laboratory Tests Test 09/27/16 09/28/16 09/29/16 21:35 13:50 05:00 Sodium Level 135 MEQ/L 136 MEQ/L 139 MEQ/L Potassium Level 3.6 MEQ/L 3.6 MEQ/L 3.5 MEQ/L Chloride Level 99 MEQ/L 101 MEQ/L 105 MEQ/L Carbon Dioxide Level 28.1 MEQ/L 25.7 MEQ/L 24.9 MEQ/L Anion Gap 8 MEQ/L 9 MEQ/L 9 MEQ/L Blood Urea Nitrogen 14 MG/DL 13 MG/DL 15 MG/DL Creatinine 0.57 MG/DL 0.61 MG/DL 0.51 MG/DL Estimat Glomerular Filtration 141 ML/MIN 131 ML/MIN 161 ML/MIN Rate Random Glucose 179 MG/DL 176 MG/DL 87 MG/DL Lactic Acid Level 0.9 mmol/L Calcium Level 8.6 MG/DL 7.6 MG/DL 8.1 MG/DL Total Bilirubin 0.5 MG/DL 0.5 MG/DL Aspartate Amino Transf 17 U/L 12 U/L (AST/SGOT) Alanine Aminotransferase 18 U/L 13 U/L (ALT/SGPT) Alkaline Phosphatase 132 U/L 103 U/L Total Protein 5.9 GM/DL 5.0 GM/DL Albumin 1.8 GM/DL 1.4 GM/DL Microbiology Date/Time Procedure Status Source Growth 09/26/16 13:00 Gram Stain - Final Complete Sputum Endotracheal 09/26/16 13:00 Sputum Culture - Final Complete Stenotrophomonas Maltophilia 09/28/16 14:54 Aerobic Blood Culture Received Blood Peripheral Pending 09/28/16 14:54 Anaerobic Blood Culture Received Blood Peripheral Pending 09/28/16 15:00 Aerobic Blood Culture Received Blood Peripheral Pending 09/28/16 15:00 Anaerobic Blood Culture Received Blood Peripheral Pending Imaging Chest X-Ray 09/28/16 0600 Signed Impressions: Service Date/Time: Wednesday, September 28, 2016 04:23 - CONCLUSION: 1. Decreasing pneumothorax along the right lung base. 2. Bibasilar densities again seen. Eduardo Mcconnell MD Chest X-Ray 09/27/16 2230 Signed Impressions: Service Date/Time: Tuesday, September 27, 2016 22:36 - CONCLUSION: 1. Mild basilar airspace disease. Small right pneumothorax but increased from earlier exam. Near-complete reexpansion of the left lung. No left pneumothorax. Eleazar Jimenez MD Chest X-Ray 09/27/16 0600 Signed Impressions: Service Date/Time: Tuesday, September 27, 2016 06:24 - CONCLUSION: Hazy density seen in the chest bilaterally likely related to bilateral effusions. Some degree of atelectasis or consolidation at the bases also needs to be considered. Lex Lopez MD Chest X-Ray 09/27/16 0000 Signed Impressions: Service Date/Time: Tuesday, September 27, 2016 18:12 - CONCLUSION: 1. Development of near complete atelectasis of the left lung since exam from earlier today with mediastinal shift from right to left. 2 right chest tubes now present with small right pneumothorax. 2. Tracheostomy and NG tube unchanged. Findings discussed by telephone with Dr. Burnett. Eleazar Jimenez MD Chest CT 09/27/16 0000 Signed Impressions: Service Date/Time: Tuesday, September 27, 2016 09:17 - CONCLUSION: Bilateral large layering pleural effusions with complete atelectasis of the lower lobes. There is been interval placement of a tracheostomy tube which appears appropriately positioned. NG tube appears in appropriate position as does the right-sided central line.. Lola Jean Baptiste MD Chest X-Ray 09/26/16 0600 Signed Impressions: Service Date/Time: Monday, September 26, 2016 06:38 - CONCLUSION: Hazy density throughout the lungs likely related to bilateral effusions. Some degree of atelectasis or consolidation at the lung bases also needs to be considered. Lex Lopez MD Chest X-Ray 09/16/16 0000 Signed Impressions: Service Date/Time: Friday, September 16, 2016 04:58 - CONCLUSION: 1. Tracheostomy and right PICC line present. Bilateral airspace disease, right greater than left similar to September 15. Eleazar Jimenez MD Abdomen X-Ray 09/16/16 0000 Signed Impressions: Service Date/Time: Friday, September 16, 2016 10:54 - CONCLUSION: 1. Nasogastric tube looped in the distal esophagus. Gareth Escalante MD Abdomen X-Ray 09/15/16 0600 Signed Impressions: Service Date/Time: Thursday, September 15, 2016 03:16 - CONCLUSION: 1. Improved gaseous distention of bowel since September 14. Mild distention persists. Eleazar Jimenez MD Chest X-Ray 09/15/16 0000 Signed Impressions: Service Date/Time: Thursday, September 15, 2016 13:39 - CONCLUSION: Decrease in medial left lung base atelectasis. No change in hazy right lung base opacity. Donald Valerio MD Abdomen X-Ray 09/14/16 0600 Signed Impressions: Service Date/Time: Wednesday, September 14, 2016 03:56 - CONCLUSION: Gaseous distention of multiple bowel loops, likely ileus. Eduardo Mcconnell MD Chest X-Ray 09/08/16 1325 Signed Impressions: Service Date/Time: Thursday, September 08, 2016 13:37 - CONCLUSION: 1. Interval improvement of the interstitial infiltrates with minimal residual right basilar infiltrate noted. 2. Tracheostomy tube in good position approximately 5 cm above the michele. Lui Kim MD Chest X-Ray 09/06/16 0000 Signed Impressions: Service Date/Time: Tuesday, September 06, 2016 13:49 - CONCLUSION: 1. Interval intubation and placement of nasogastric tube. 2. Volume loss again noted left hemithorax with mediastinal shift. There is coarse infiltrate remaining in the left lung. Ian Horton MD Chest X-Ray 09/06/16 0000 Signed Impressions: Service Date/Time: Tuesday, September 06, 2016 08:50 - CONCLUSION: 1. Increasing density throughout the left hemithorax with volume loss suggesting mucus plugging. Eduardo Mcconnell MD Chest X-Ray 09/05/16 0500 Signed Impressions: Service Date/Time: Monday, September 05, 2016 03:49 - CONCLUSION: 1. Basilar airspace disease similar to prior exam. Support apparatus unchanged. Eleazar Jimenez MD Chest X-Ray 09/05/16 0500 Signed Impressions: Service Date/Time: Monday, September 05, 2016 03:49 - CONCLUSION: 1. Basilar airspace disease similar to prior exam. Support apparatus unchanged. Eleazar Jimenez MD Chest X-Ray 09/01/16 0600 Signed Impressions: Service Date/Time: Thursday, September 01, 2016 03:19 - CONCLUSION: No significant interval change in bilateral pulmonary parenchymal opacity and small bilateral pleural effusions. 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 There is concentric mural thrombus. This aneurysm is not amenable to thrombin injection. Polo Moore Jr., MD Chest X-Ray 08/27/16 06 Signed Impressions: Service Date/Time: August 02:27 - CONCLUSION: 1. Patchy bilateral airspace disease with improving aeration/decreasing effusions in the bases bilaterally. 2. Stable position of life support tubes. Con Valdes MD Chest X-Ray 08/26/16 0754 Signed Impressions: Service Date/Time: Friday, August 26, 2016 08:14 - CONCLUSION: Left IJ central line distal tip in the SVC. No pneumothorax is visualized. There is a stable appearance the lungs with bilateral airspace consolidation. Lex Malik MD Chest X-Ray 08/26/16 0600 Signed Impressions: Service Date/Time: Friday, August 26, 2016 04:01 - CONCLUSION: 1. Worsening bibasilar effusions/atelectasis with diffuse interstitial edema, all characteristic of CHF. 2. Endotracheal tube remains appropriately positioned above the michele Con Valdes MD Chest X-Ray 08/26/16 0754 Signed Impressions: Service Date/Time: Friday, August 26, 2016 08:14 - CONCLUSION: Left IJ central line distal tip in the SVC. No pneumothorax is visualized. There is a stable appearance the lungs with bilateral airspace consolidation. Lex Malik MD Renal Ultrasound 08/25/16 0000 Signed Impressions: Service Date/Time: Wednesday, August 24, 2016 21:53 - CONCLUSION: 1. There is no hydronephrosis. Both kidneys demonstrate mild increased echotexture of the parenchyma suggesting medical renal disease. 2. Trace perihepatic free fluid and bilateral pleural effusions. Lex Malik MD Chest CT 08/25/16 0000 Signed Impressions: Service Date/Time: Thursday, August 25, 2016 21:20 - CONCLUSION: 1. Bilateral pneumonia and aspiration would be in the differential. There is dependent consolidation/atelectasis and small effusions of the bases as well. 2. Upper limits of normal to mildly enlarged mediastinal lymph nodes, most likely reactive. 3. Coronary artery calcification. 4. Right rib fractures, including acute fractures laterally of the third, fourth and fifth. There are old, healed fractures anteriorly of the right second and third ribs.. Lex Lopez MD Abdomen/Pelvis CT 08/25/16 0000 Signed Impressions: Service Date/Time: Thursday, August 25, 2016 20:20 - CONCLUSION: 1. Ventral hernia containing small bowel and with associated small bowel obstruction. The defect is broad; I believe the obstruction is probably related to scarring and/or adhesions within the hernia sac. I don't see a mass. 2. Distended stomach despite NG tube present. 3. Severe aortoiliac atherosclerosis. No aneurysm. Lex Lopez MD Abdomen X-Ray 08/24/16 0000 Signed Impressions: Service Date/Time: Wednesday, August 24, 2016 17:19 - CONCLUSION: 1. Small bowel dilatation which reflect ileus or obstruction. Followup examination is recommended if clinically indicated. Gareth Escalante MD Physical Exam GENERAL: Awake, and alert, following, NAD. On the vent SKIN: Warm and dry. No generalized rash HEENT: [place] conjunctiva, no scleral icterus. Dry oral mucosa. Has NGT in place NECK: Trach site ok. Supple. CARDIOVASCULAR: Regular rate and rhythm without murmurs, gallops, or rubs. RESPIRATORY: Decreased breath sounds throughout both lung garcia. GASTROINTESTINAL: Abdomen soft, not tender, not distended. Has a large midline hernia reducible, currently not distended. Has midline scar. MUSCULOSKELETAL: Extremities without clubbing, cyanosis. No edema. LINE: PICC no evidence of infection. Assessment & Plan Remarks IMPRESSION New problem, respiratory, plugging, possible new VAP, with shock, on pressors - S/P bronch 09/27 - BP better Sepsis present on admission and then sepsis again. Better Central line associated blood stream infection (CLABSI) related fungemia ( likely groin line) now discontinued. Arterial line discontinued as well. 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 - S/P Rx Sten mal in sputum, S/P Rx Status post cardiorespiratory arrest Findings SBO within the hernia on CT A/P, clinically better Acute respiratory failure, S/P trach Leukocytosis, better COPD, oxygen dependent Previous GI bleed with workup showing gastritis, Ashley esophagitis, and polyps Large incisional ventral hernia Bladder outlet obstruction, currently has a [place] Renal insufficiency, resolved RECOMMENDATION Follow new C/S Stop cefepime Continue Levaquin Follow temps Monitor progress Weaning per [facility] Nuha Fernandez MD Sep 29, 2016 10:51
--- NOTE | 2016-09-29 12:21 | RADRPT ---
EXAM DATE/TIME: 09/29/2016 11:42 [place] COMPARISON: CHEST SINGLE AP, September 29, 2016, 5:37. INDICATIONS : Follow up right pneumothorax. MEDICAL HISTORY : Cardiovascular disease. Chronic obstructive pulmonary disease SURGICAL HISTORY : None. ENCOUNTER: Subsequent ACUITY: 4 - 6 days PAIN SCORE: Non-responsive. LOCATION: Bilateral chest FINDINGS: 2 AP views of the chest demonstrate a normal-sized cardiac silhouette. Tracheostomy, right upper extr emity PICC and nasogastric tube remain present. Right chest tube is present in the mid to lower hemit horax. There is a small right apical pneumothorax, decreased in size from the prior study. It measure s a proximally 9 mm in separation compared to 2.5 cm on the prior study. There are airspace opacities in the mid and lower lung zones bilaterally along with pleural based opacities. There is persistent right chest wall soft tissue air. CONCLUSION: 1. Right pneumothorax remains present and is small in size but it has decreased compared to the [facility] from earlier today. 2. Stable bibasilar pleural-parenchymal opacities likely representing airspace opacity along with ple ural effusions and volume loss. Lex Malik MD on September 29, 2016 at 12:18 Board Certified Radiologist. This report was verified electronically.
[2016-09-29] MEDS: POTASSIUM CHLOR 40 MEQ PREMIX 100 ML IV PRN (18:38)
[2016-09-29] MEDS: ALPRAZolam 0.25 MG TAB PO PRN (21:16)
[2016-09-29] MEDS: MELATONIN 5 MG TAB PO SCH (21:16)
[2016-09-30] VITALS (20 sets, daily range): BP systolic 106–129; BP diastolic 62–81; PULSE 79–118; RESP 18–22; TEMP 97.8–99.2; O2SAT 94–100
[2016-09-30] MEDS: OLANZapine ODT 5 MG TAB PO SCH ×4 (02:50→18:21)
[2016-09-30] MEDS: RESP: ALBUTEROL 2.5 MG/IPRATROPIUM 0.5 MG NEB (SCH) NEB ×2 (03:04→08:31)
[2016-09-30] MEDS: RESP: ACETYLCYSTEINE 10% 30 ML NEB NEB SCH ×4 (03:04→21:04)
[2016-09-30] MEDS: FREE WATER G-TUBE SCH ×5 (06:00→23:55)
[2016-09-30] MEDS: NYSTATIN 100,000 U/GM PWD 15 GM BTL TOPICAL SCH ×3 (06:00→22:00)
[2016-09-30] MEDS: INSULIN NovoLIN REGULAR SUPPLEMENTAL SCALE SQ SCH ×4 (06:00→18:00)
[2016-09-30 06:57] LABS: MEAN CELL VOLUME 88.7 FL (80.0-100.0); MEAN CORPUSCULAR HEMOGLOBIN 30.8 PG (27.0-34.0); MEAN CORPUSCULAR HGB CONC 34.8 % (32.0-36.0); PLATELET COUNT 208 TH/MM3 (150-450); RED BLOOD COUNT 2.81 MIL/MM3 (4.50-5.90); RED CELL DISTRIBUTION WIDTH 17.4 % (11.6-17.2); REVIEW FLAG FINAL
[2016-09-30] MEDS: RESP: BUDESONIDE 0.5 MG/2 ML NEB NEB SCH ×2 (07:42→20:47)
[2016-09-30] MEDS: CHLORHEXIDINE GLUCONATE 0.12% 15 ML CUP SCH ×2 (08:00→20:00)
[2016-09-30] MEDS: TAMSULOSIN HCL 0.4 MG CAP PO SCH (08:27)
[2016-09-30] MEDS: DOXAZOSIN MESYLATE 2 MG TAB PO SCH (08:27)
[2016-09-30] MEDS: LACTULOSE SYRUP 20 GM/30 ML CUP PO SCH (08:27)
[2016-09-30] MEDS: DOCUSATE SODIUM 100 MG/10 ML UDC PO SCH ×2 (08:27→20:53)
[2016-09-30] MEDS: SENNOSIDES SYRUP 8.8 MG/5 ML CUP PO SCH (08:27)
[2016-09-30] MEDS: PANTOPRAZOLE SODIUM 40 MG VIAL IV PUSH SCH ×2 (08:27→20:54)
[2016-09-30] MEDS: MULTIVITAMINS/MINERALS THERAPEUTIC TAB PO SCH (08:27)
[2016-09-30] MEDS: METOCLOPRAMIDE HCL 10 MG/2 ML VIAL IV PUSH SCH ×3 (08:27→15:16)
[2016-09-30] MEDS: LEVOFLOXACIN 750 MG PREMIX INJ 150 ML IV SCH (08:28)
[2016-09-30] MEDS: COLLAGENASE OINT 30 GM TUBE TOP SCH (08:28)
[2016-09-30] MEDS: SODIUM CHLORIDE 0.9% FLUSH 5 ML FLUSH IVF SCH (08:28)
[2016-09-30] MEDS: SODIUM CHLORIDE 0.9% FLUSH 10 ML FLUSH IV FLUSH SCH (08:28)
--- NOTE | 2016-09-30 13:23 | HHI.IDPN ---
Subjective Subjective Remarks Events noted D/W RN Was on CPAP, but went into atrial fib with RVR, back on the vent Temps ok Tolerating TF Bronch C/S Sten mal Has 2 CT on R Had bronch Antibiotics Levaquin, restarted 09/26 Lines PICC - 09/11 Past Medical History Reviewed Allergies: Coded Allergies: *MDRO Multi-Drug Resistant Organism (Verified Adverse Reaction, Unknown, ) MRSA (abdominal wound) 2015 per 04/10/2015 H&P MRSA PCR Screen #1 NEGATIVE - 08/21/16 Objective . Vital Signs Date Time Temp Pulse Resp B/P Pulse Ox O2 Delivery O2 Flow Rate FiO2 09/30/16 12:17 98 40 09/30/16 11:10 98 40 09/30/16 10:00 109 09/30/16 09:40 95 40 09/30/16 08:00 98.2 101 18 129/74 100 09/30/16 08:00 40 09/30/16 08:00 101 09/30/16 07:43 94 40 09/30/16 06:00 40 09/30/16 06:00 97 09/30/16 04:18 97 40 09/30/16 04:00 106 09/30/16 04:00 40 09/30/16 04:00 98.1 106 19 116/65 95 09/30/16 02:00 83 09/30/16 01:02 98 40 09/30/16 00:00 40 09/30/16 00:00 98.3 98 19 111/62 99 09/30/16 00:00 98 09/29/16 22:00 102 09/29/16 21:58 97 40 09/29/16 20:40 98 40 09/29/16 20:00 98.9 108 31 144/78 97 09/29/16 20:00 107 09/29/16 20:00 40 09/29/16 18:00 107 09/29/16 16:29 99 40 09/29/16 16:00 90 09/29/16 16:00 98.3 88 17 114/83 99 09/29/16 16:00 40 09/29/16 14:00 100 09/29/16 09/29/16 09/30/16 15:00 23:00 07:00 Intake Total 814 ml 1057 ml 1104 ml Output Total 1055 ml 716 ml 1185 ml Balance -241 ml 341 ml -81 ml IV Total 394 ml 631 ml 301 ml Tube Feeding 0 ml 126 ml 203 ml Other 420 ml 300 ml 600 ml Output Urine Total 1050 ml 700 ml 1175 ml Chest Tube Drainage Total 5 ml 16 ml 10 ml # Bowel Movements 0 0 . Laboratory Tests Test 09/28/16 09/29/16 09/30/16 13:50 05:00 06:15 White Blood Count 9.1 TH/MM3 7.4 TH/MM3 6.0 TH/MM3 Red Blood Count 2.11 MIL/MM3 2.89 MIL/MM3 2.81 MIL/MM3 Hemoglobin 6.5 GM/DL 9.0 GM/DL 8.7 GM/DL Hematocrit 19.5 % 25.4 % 25.0 % Mean Corpuscular Volume 92.3 FL 88.0 FL 88.7 FL Mean Corpuscular Hemoglobin 30.7 PG 31.1 PG 30.8 PG Mean Corpuscular Hemoglobin 33.3 % 35.4 % 34.8 % Concent Red Cell Distribution Width 16.5 % 17.2 % 17.4 % Platelet Count 191 TH/MM3 208 TH/MM3 208 TH/MM3 Mean Platelet Volume 8.9 FL 8.5 FL 8.7 FL Neutrophils (%) (Auto) 84.8 % 81.1 % Lymphocytes (%) (Auto) 4.9 % 7.3 % Monocytes (%) (Auto) 9.9 % 9.9 % Eosinophils (%) (Auto) 0.2 % 1.1 % Basophils (%) (Auto) 0.2 % 0.6 % Neutrophils # (Auto) 7.7 TH/MM3 6.0 TH/MM3 Lymphocytes # (Auto) 0.4 TH/MM3 0.5 TH/MM3 Monocytes # (Auto) 0.9 TH/MM3 0.7 TH/MM3 Eosinophils # (Auto) 0.0 TH/MM3 0.1 TH/MM3 Basophils # (Auto) 0.0 TH/MM3 0.0 TH/MM3 CBC Comment AUTO DIFF AUTO DIFF Differential Total Cells 100 100 Counted Neutrophils % (Manual) 77 % 79 % Band Neutrophils % 10 % 4 % Lymphocytes % 6 % 7 % Monocytes % 6 % 6 % Neutrophils # (Manual) 8.0 TH/MM3 6.4 TH/MM3 Metamyelocytes 1 % 1 % Differential Comment FINAL DIFF FINAL DIFF MANUAL MANUAL Platelet Estimate NORMAL NORMAL Platelet Morphology Comment NORMAL NORMAL Eosinophils % 1 % Myelocytes 2 % Acanthocytes OCC Laboratory Tests Test 09/28/16 09/29/16 13:50 05:00 Sodium Level 136 MEQ/L 139 MEQ/L Potassium Level 3.6 MEQ/L 3.5 MEQ/L Chloride Level 101 MEQ/L 105 MEQ/L Carbon Dioxide Level 25.7 MEQ/L 24.9 MEQ/L Anion Gap 9 MEQ/L 9 MEQ/L Blood Urea Nitrogen 13 MG/DL 15 MG/DL Creatinine 0.61 MG/DL 0.51 MG/DL Estimat Glomerular Filtration 131 ML/MIN 161 ML/MIN Rate Random Glucose 176 MG/DL 87 MG/DL Calcium Level 7.6 MG/DL 8.1 MG/DL Total Bilirubin 0.5 MG/DL Aspartate Amino Transf 12 U/L (AST/SGOT) Alanine Aminotransferase 13 U/L (ALT/SGPT) Alkaline Phosphatase 103 U/L Total Protein 5.0 GM/DL Albumin 1.4 GM/DL Microbiology Date/Time Procedure Status Source Growth 09/28/16 14:54 Aerobic Blood Culture - Preliminary Resulted Blood Peripheral NO GROWTH IN 2 DAYS 09/28/16 14:54 Anaerobic Blood Culture - Preliminary Resulted Blood Peripheral NO GROWTH IN 2 DAYS 09/28/16 15:00 Aerobic Blood Culture - Preliminary Resulted Blood Peripheral NO GROWTH IN 2 DAYS 09/28/16 15:00 Anaerobic Blood Culture - Preliminary Resulted Blood Peripheral NO GROWTH IN 2 DAYS Imaging Chest X-Ray 09/28/16 0600 Signed Impressions: Service Date/Time: Wednesday, September 28, 2016 04:23 - CONCLUSION: 1. Decreasing pneumothorax along the right lung base. 2. Bibasilar densities again seen. Eduardo Mcconnell MD Chest X-Ray 09/27/16 2230 Signed Impressions: Service Date/Time: Tuesday, September 27, 2016 22:36 - CONCLUSION: 1. Mild basilar airspace disease. Small right pneumothorax but increased from earlier exam. Near-complete reexpansion of the left lung. No left pneumothorax. Eleazar Jimenez MD Chest X-Ray 09/27/16 0600 Signed Impressions: Service Date/Time: Tuesday, September 27, 2016 06:24 - CONCLUSION: Hazy density seen in the chest bilaterally likely related to bilateral effusions. Some degree of atelectasis or consolidation at the bases also needs to be considered. Lex Lopez MD Chest X-Ray 09/27/16 0000 Signed Impressions: Service Date/Time: Tuesday, September 27, 2016 18:12 - CONCLUSION: 1. Development of near complete atelectasis of the left lung since exam from earlier today with mediastinal shift from right to left. 2 right chest tubes now present with small right pneumothorax. 2. Tracheostomy and NG tube unchanged. Findings discussed by telephone with Dr. Burnett. Eleazar Jimenez MD Chest CT 09/27/16 0000 Signed Impressions: Service Date/Time: Tuesday, September 27, 2016 09:17 - CONCLUSION: Bilateral large layering pleural effusions with complete atelectasis of the lower lobes. There is been interval placement of a tracheostomy tube which appears appropriately positioned. NG tube appears in appropriate position as does the right-sided central line.. Lola Jean Baptiste MD Chest X-Ray 09/26/16 0600 Signed Impressions: Service Date/Time: Monday, September 26, 2016 06:38 - CONCLUSION: Hazy density throughout the lungs likely related to bilateral effusions. Some degree of atelectasis or consolidation at the lung bases also needs to be considered. Lex Lopez MD Chest X-Ray 09/16/16 0000 Signed Impressions: Service Date/Time: Friday, September 16, 2016 04:58 - CONCLUSION: 1. Tracheostomy and right PICC line present. Bilateral airspace disease, right greater than left similar to September 15. Eleazar Jimenez MD Abdomen X-Ray 09/16/16 0000 Signed Impressions: Service Date/Time: Friday, September 16, 2016 10:54 - CONCLUSION: 1. Nasogastric tube looped in the distal esophagus. Gareth Escalante MD Abdomen X-Ray 09/15/16 0600 Signed Impressions: Service Date/Time: Thursday, September 15, 2016 03:16 - CONCLUSION: 1. Improved gaseous distention of bowel since September 14. Mild distention persists. Eleazar Jimenez MD Chest X-Ray 09/15/16 0000 Signed Impressions: Service Date/Time: Thursday, September 15, 2016 13:39 - CONCLUSION: Decrease in medial left lung base atelectasis. No change in hazy right lung base opacity. Donald Valerio MD Abdomen X-Ray 09/14/16 0600 Signed Impressions: Service Date/Time: Wednesday, September 14, 2016 03:56 - CONCLUSION: Gaseous distention of multiple bowel loops, likely ileus. Eduardo Mcconnell MD Chest X-Ray 09/08/16 1325 Signed Impressions: Service Date/Time: Thursday, September 08, 2016 13:37 - CONCLUSION: 1. Interval improvement of the interstitial infiltrates with minimal residual right basilar infiltrate noted. 2. Tracheostomy tube in good position approximately 5 cm above the michele. Lui Kim MD Chest X-Ray 09/06/16 0000 Signed Impressions: Service Date/Time: Tuesday, September 06, 2016 13:49 - CONCLUSION: 1. Interval intubation and placement of nasogastric tube. 2. Volume loss again noted left hemithorax with mediastinal shift. There is coarse infiltrate remaining in the left lung. Ian Horton MD Chest X-Ray 09/06/16 0000 Signed Impressions: Service Date/Time: Tuesday, September 06, 2016 08:50 - CONCLUSION: 1. Increasing density throughout the left hemithorax with volume loss suggesting mucus plugging. Eduardo Mcconnell MD Chest X-Ray 09/05/16 0500 Signed Impressions: Service Date/Time: Monday, September 05, 2016 03:49 - CONCLUSION: 1. Basilar airspace disease similar to prior exam. Support apparatus unchanged. Eleazar Jimenez MD Chest X-Ray 09/05/16 0500 Signed Impressions: Service Date/Time: Monday, September 05, 2016 03:49 - CONCLUSION: 1. Basilar airspace disease similar to prior exam. Support apparatus unchanged. Eleazar Jimenez MD Chest X-Ray 09/01/16 0600 Signed Impressions: Service Date/Time: Thursday, September 01, 2016 03:19 - CONCLUSION: No significant interval change in bilateral pulmonary parenchymal opacity and small bilateral pleural effusions. 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 There is concentric mural thrombus. This aneurysm is not amenable to thrombin injection. Polo Moore Jr., MD Chest X-Ray 08/27/16599 Signed Impressions: Service Date/Time: August 02:27 - CONCLUSION: 1. Patchy bilateral airspace disease with improving aeration/decreasing effusions in the bases bilaterally. 2. Stable position of life support tubes. Con Valdes MD Chest X-Ray 08/26/16753 Signed Impressions: Service Date/Time: Friday, August 26, 2016 08:14 - CONCLUSION: Left IJ central line distal tip in the SVC. No pneumothorax is visualized. There is a stable appearance the lungs with bilateral airspace consolidation. Lex Malik MD Chest X-Ray 08/26/16599 Signed Impressions: Service Date/Time: Friday, August 26, 2016 04:01 - CONCLUSION: 1. Worsening bibasilar effusions/atelectasis with diffuse interstitial edema, all characteristic of CHF. 2. Endotracheal tube remains appropriately positioned above the michele Con Valdes MD Chest X-Ray 08/26/16753 Signed Impressions: Service Date/Time: Friday, August 26, 2016 08:14 - CONCLUSION: Left IJ central line distal tip in the SVC. No pneumothorax is visualized. There is a stable appearance the lungs with bilateral airspace consolidation. Lex Malik MD Renal Ultrasound 08/25/16 Signed Impressions: Service Date/Time: Wednesday, August 24, 2016 21:53 - CONCLUSION: 1. There is no hydronephrosis. Both kidneys demonstrate mild increased echotexture of the parenchyma suggesting medical renal disease. 2. Trace perihepatic free fluid and bilateral pleural effusions. Lex Malik MD Chest CT 08/25/16 Signed Impressions: Service Date/Time: Thursday, August 25, 2016 21:20 - CONCLUSION: 1. Bilateral pneumonia and aspiration would be in the differential. There is dependent consolidation/atelectasis and small effusions of the bases as well. 2. Upper limits of normal to mildly enlarged mediastinal lymph nodes, most likely reactive. 3. Coronary artery calcification. 4. Right rib fractures, including acute fractures laterally of the third, fourth and fifth. There are old, healed fractures anteriorly of the right second and third ribs.. Lex Lopez MD Abdomen/Pelvis CT 08/25/16 0000 Signed Impressions: Service Date/Time: Thursday, August 25, 2016 20:20 - CONCLUSION: 1. Ventral hernia containing small bowel and with associated small bowel obstruction. The defect is broad; I believe the obstruction is probably related to scarring and/or adhesions within the hernia sac. I don't see a mass. 2. Distended stomach despite NG tube present. 3. Severe aortoiliac atherosclerosis. No aneurysm. Lex Lopez MD Abdomen X-Ray 08/24/16 0000 Signed Impressions: Service Date/Time: Wednesday, August 24, 2016 17:19 - CONCLUSION: 1. Small bowel dilatation which reflect ileus or obstruction. Followup examination is recommended if clinically indicated. Gareth Escalante MD Physical Exam GENERAL: Awake, and alert, following, NAD. On the vent SKIN: Warm and dry. No generalized rash HEENT: [place] conjunctiva, no scleral icterus. Dry oral mucosa. Has NGT in place NECK: Trach site ok. Supple. CARDIOVASCULAR: Regular rate and rhythm without murmurs, gallops, or rubs. RESPIRATORY: Scattered rhonchi GASTROINTESTINAL: Abdomen soft, not tender, not distended. Has a large midline hernia reducible, mildly distended. Has midline scar. MUSCULOSKELETAL: Extremities without clubbing, cyanosis. No edema. LINE: PICC no evidence of infection. Assessment & Plan Remarks IMPRESSION New problem, respiratory, plugging, possible new VAP - S/P bronch 09/27 - BP better Sepsis present on admission and then sepsis again. Better Central line associated blood stream infection (CLABSI) related fungemia ( likely groin line) now discontinued. Arterial line discontinued as well. 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 - S/P Rx Sten mal in sputum, S/P Rx Status post cardiorespiratory arrest Findings SBO within the hernia on CT A/P, clinically better Acute respiratory failure, S/P trach Leukocytosis, better COPD, oxygen dependent Previous GI bleed with workup showing gastritis, Ashley esophagitis, and polyps Large incisional ventral hernia Bladder outlet obstruction, currently has a [place] Renal insufficiency, resolved RECOMMENDATION Follow new C/S Continue Levaquin Follow temps Monitor progress Weaning per CCM D/W Nuha Nguyen MD Sep 30, 2016 13:23
--- NOTE | 2016-09-30 13:49 | HHI.CCPN ---
Subjective Remarks/Hospital Course 08/24: 71 Year-old male with a medical history significant for COPD on home oxygen who was recently admitted with suspected sepsis/H And was initiated on IV antibiotics and steroids. He had recently been evaluated by GI and underwent EGD on 08/10/2016 and was found to have moderate esophagitis, mild gastritis with pathology subsequently showing Ashley esophagitis as well as colonoscopy on 08/11/2016 with polypectomy and ablation of polyp in ascending colon with hot snare. Patient has been dealing with constipation since his admission. Today when he was trying to have a bowel movement he suddenly became less responsive and then had a large emesis which resulted in aspiration and hemodynamic collapse. Patient initially had large volume emesis with dark maroon blood. CODE BLUE cardiac arrest code was activated. On my arrival patient was in bed CPR had been initiated. Significant gastric contents was still being suctioned out of his oral cavity. ACLS protocol was continued. Patient was intubated following vigorous suctioning of gastric contents from oral cavity as well as with placement of NG tube which is hooked up to suction and about 1.5 L of gastric contents being suctioned out which appeared to be dark maroon in color. Patient initially had a pulse when CODE BLUE was called and subsequently went in PEA arrest followed by asystole during ACLS and then V. fib for which he was defibrillated with 200 J 1, CPR/ACLS protocol was continued and patient eventually had return of spontaneous circulation after about 15 minutes of CPR/ACLS. Patient was transferred to [facility] and placed on mechanical ventilation. I emergently placed left femoral central line for central vascular access and he was started on Levophed for pressor support. 2 units of O- 1 crossmatch blood were ordered and transfused stat. He also received 1 L of normal saline bolus following return of spontaneous circulation. Stat labs were ordered. His hemoglobin on ABG done post resuscitation was 5.6. I did order Protonix 80 mg IV stat followed by 8 mg per hour IV infusion. Patient remained encephalopathic though was minimally responsive following transfer to the ICU. GI consult was requested and I spoke with Dr. Zamarripa at bedside on his arrival. History was obtained by reviewing records, discussion with family/ GI as well as nursing staff. According to patient's daughter he has not been doing well for the last few months in terms of his breathing and has been using his home oxygen more often. He gets extremely short of breath even with the least exertion. 08/25: Remains encephalopathic/ sedated, [facility]. Transiently off levophed last night however back to 11 mcg/min currently. Hgb up to 9.4 following 4 units PRBCs transfused last night. 08/26: Tmax 99. Some unresponsive on the ventilator. CT abdomen/pelvis less than revealed small bowel obstruction at site of ventral hernia. No further bleeding noted. Gastric output approximately 700 cc. No bowel movement. 08/27: Tmax 99.7. Currently afebrile. Positive BM overnight approximately 1 L according to RN. No blood noted. 100 cc from gastric tube overnight. Hemoglobin corrected a properly. Likely dilutional. Noted fungemia currently issue. Opens eyes to voice. 08/28: Tmax 99.1. No BMs overnight. Minimal gastric tube output. Hemoglobin stable 9.5. Opens eyes to voice. Not following commands. Appears with singultus this morning. 08/29: 20 beat run of wide complex tachycardia overnight. Noted potassium 3.2. This is been replaced. We'll recheck this afternoon. Circuit exchange yesterday. Patient tolerating pressure control ventilation much better than PRVC/AC ventilation is low probably VQ scan. Less FiO2 requirements. No BM past 24 hour. 08/30: Unable to wean ventilator. 08/31: Patient was extubated on 08/30 however became tachypneic with use of accessory muscles of respiration and required reintubation around 6:30 PM last night and was placed back on mechanical ventilation. Currently sedated, orally intubated on mechanical ventilation. Post intubation chest x-ray suggested fluid overload for which she was given Lasix 40 mg IV with good response having made about 2.5 L urine the last 7 hours. 09/01: Remains sedated, orally intubated on mechanical ventilation. Diuresing well with Lasix. Awaiting EGD in a.m. 09/02: Little progress. CXR clearing nicely. Continue diuresis, tolerate hypernatremia. 09/03: Good diuretic response. CRISTHIAN today with no valvar pathology. 09/04: Too weak to tolerate extubation. Will require trach. 09/05: Sedated, arousable, following commands. Tolerated C Pap trial for 9 hours yesterday with pressure support +10. Tolerating tube feeds. 09/06: Extubated yesterday. Chest x-ray reveals likely mucous plugging in left lung garcia. Currently on nonrebreather mask. Planning of insomnia and thick secretions that he is unable to cough up. 09/07 Patient s/p reintubation and bronch 09/06 mucous plugs in left main stem bronchus sedated with Diprivan and Fentanyl. Afebrile. For possible trach tomorrow. 09/08 No acute events overnight. Sedated with Diprivan and Fentanyl. Afebrile. For trach today. 09/09 No acute events overnight. Sedated and intubated. s/p trach yesterday for PEG tube placement today. 09/10 Patient remains sedated and on ventilator via trach. s/p EGD yesterday PEG tube couldn't be placed endoscopically due to hernia. Surgery consulted for J-tube placement. Afebrile. 09/11 No acute events overnight. Sedated with Diprivan, Fentanyl and intubated. Afebrile. Tolerating tube feeds. 09/12 Patient is off Diprivan remains on Fentanyl infusion tolerated CPAP trials for several hrs and TP's x 2 hrs yesterday now on TP with 50% FIO2. Afebrile. 09/13 Patient tolerated TP's all day yesterday placed on PRVC/AC mode overnight. TF held for high residuals. Afebrile. On Fentanyl infusion however he is awake, restless. 09/14 No acute events overnight. Tolerated TP's all day yesterday placed back on ventilator overnight. On Fentanyl infusion. Afebrile. Repeat KUB this morning showed ileus. 09/15 Patient is off fentanyl infusion and is on Precedex drip pulled his NGT overnight. KUB this morning showed improvements in gaseous distention of bowel. 09/16 Yesterday afternoon an NG tube was placed patient was noted to have tube feeds with possible aspiration.NGT placed this am, KUB pending. 09/17: no acute events overnight. tolerated cpap. back on rate overnight. this morning on trach collar. 09/18: prior history of constipation, now with diarrhea. otherwise, awaiting placement. 09/19: diarrhea improving. still awaiting placement. 09/20: still doing well. on trach collar this morning on my evaluation. insurance has not yet approved placement. 09/21: tired out on trach collar yesterday. placed intermittently on cpap. insurance denied LTAC. will work towards [id number]. 09/22: had [id number] today. insurance continues to request permanent surgical feeding access to go to LTAC. My medical opinion is that patient is clinically improving and tolerating DHT without complication, and could safely be fed through DHT for the coming weeks, and I anticipate his dysphagia to resolve as his strength improves. I do not see a clinical indication for permanent surgical gastric access. We also are not a rehab center, and he is not getting medically appropriate care for his level of medical need. He does not require ICU admission, and medically would be more appropriate for LTAC. 09/23: transferred to [facility]. doing well. tachycardic this morning. diltiazem changed from QID to q6hr for more even distribution. insurance company denied admission to LTAC. will continue to pursue this as an option. otherwise, OOB to chair daily. still working with speech. 09/24: did not sleep well overnight. agitated. awake most of the night. I removed stay sutures from trach this morning. 09/25: Received Haldol overnight, resting now. Not agitated. On PRVC/AC. CPAP trails to resume today. Somnolent but wakes up and follows commands 09/26: Continues to have large amount of tracheal secretions. Levaquin restarted sputum culture ordered. Chest x-ray is pending. Did not tolerate CPAP yesterday became tachycardic and hypoxic Subjective 09/27: Tolerated CPAP approximately 6-7 hours became tachypneic afterwards. Currently on full vent support FiO2 50%. Chest x-ray from yesterday shows bilateral pleural effusions/infiltrate right more than left. CT chest ordered cefepime added sputum culture is pending. More delirious at night, now with eyes open following commands EVENTS FROM 09/27/16 evening Patient was turned to left side for thoracentesis, he acutely desaturated to low 70s prior to starting the procedure. Patient was placed back in supine, bag and mask ventilation performed until sats came up to 98%. Patient was again partially turned to left side and thoracentesis was attempted. Even though ultrasound showed fluid, air was withdrawn into the syringe. Procedure was abandoned and patient was put in neutral position. Peak pressures on the vent increased and patient started desaturating to 70s indicating tension pneumothorax. The thoracentesis Angiocath was used for emergency decompression and bag and mask ventilation became easier. An emergency 8 Prydeinig pigtail catheter was placed and connected to Pleur-evac. This had significant air leak but patient remained with low oxygen saturation in 70s. Additional 28 Prydeinig chest tube was emergently placed with a gradual improvement in saturation to mid 80s. (Chest tube/Pigtail tray was not available immediately at the bedside , and the tech had to run to the [facility] to get the chest tube tray). Patient was placed back on PC/ACmechanical ventilation with low tidal volume. Post chest tube chest x-ray shows good reexpansion of the lung and good positioning of the chest tubes. But the left lung is collapsed with mediastinal shift to the left indicating bronchial obstruction probably from mucous plug. I attempted bronchoscopy with intubating bronchoscope available here at [place]. I was unable to suction out any mucus plugging, or visualize clearly. Patient was transferred to [facility] in [facility]. Dr. Espinoza performed therapeutic bronchoscopy with pediatric bronchoscope, and he was in able to clear a significant amount of secretion with reexpansion of lung. 09/28: Chest x-ray today shows right sided pneumothorax almost resolved. Good reexpansion of the left lung also bibasilar infiltrates seen. Sputum culture growing gram-negative rods. Patient is awake alert on full vent support. Levophed is being weaned currently on 4 mics per minute 09/29: Remains on mechanical ventilation via tracheostomy. Continues to have persistent air leak from right sided pigtail catheter as well as chest tube. Chest x-ray today shows slight increase in size of right pneumothorax. 09/30: Remains on mechanical ventilation via tracheostomy. Very small air leak noted in right sided chest tube. Objective Vital Signs Date Time Temp Pulse Resp B/P Pulse Ox O2 Delivery O2 Flow Rate FiO2 09/30/16: 98 40 09/30/16 10:00 109 09/30/16 08:00 98.2 18 129/74 Intake and Output 09/29/16 09/29/16 09/30/16 08:00 16:00 00:00 Intake Total 1166 ml 814 ml 1057 ml Output Total 535 ml 1055 ml 716 ml Balance 631 ml -241 ml 341 ml Result Diagram: 09/30/16 0615 09/29/16 0500 Imaging Last Impressions Abdomen X-Ray 09/15/16 0600 Signed Impressions: Service Date/Time: Thursday, September 15, 2016 03:16 - CONCLUSION: 1. Improved gaseous distention of bowel since September 14. Mild distention persists. 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 There is concentric mural thrombus. This aneurysm is not amenable to thrombin injection. Polo Moore Jr., MD Lung Scan-V Nuclear Medicine 08/29/16 0000 Signed Impressions: Service Date/Time: Monday, August 29, 2016 10:20 - CONCLUSION: Low probability for pulmonary embolus. Lex Lopez MD Brain MRI 08/27/16 0000 Signed Impressions: Service Date/Time: August 15:13 - CONCLUSION: No evidence of acute infarct, hemorrhage, mass or edema. No findings to suggest significant anoxic injury. Kit Power MD Renal Ultrasound 08/25/16 0000 Signed Impressions: Service Date/Time: Wednesday, August 24, 2016 21:53 - CONCLUSION: 1. There is no hydronephrosis. Both kidneys demonstrate mild increased echotexture of the parenchyma suggesting medical renal disease. 2. Trace perihepatic free fluid and bilateral pleural effusions. Lex Malik MD Chest CT 08/25/16 0000 Signed Impressions: Service Date/Time: Thursday, August 25, 2016 21:20 - CONCLUSION: 1. Bilateral pneumonia and aspiration would be in the differential. There is dependent consolidation/atelectasis and small effusions of the bases as well. 2. Upper limits of normal to mildly enlarged mediastinal lymph nodes, most likely reactive. 3. Coronary artery calcification. 4. Right rib fractures, including acute fractures laterally of the third, fourth and fifth. There are old, healed fractures anteriorly of the right second and third ribs.. Lex Lopez MD Abdomen/Pelvis CT 08/25/16 0000 Signed Impressions: Service Date/Time: Thursday, August 25, 2016 20:20 - CONCLUSION: 1. Ventral hernia containing small bowel and with associated small bowel obstruction. The defect is broad; I believe the obstruction is probably related to scarring and/or adhesions within the hernia sac. I don't see a mass. 2. Distended stomach despite NG tube present. 3. Severe aortoiliac atherosclerosis. No aneurysm. Lex Lopez MD Objective Remarks GENERAL: Patient is 71 yo lying in bed in bed, on mechanical ventilation via tracheostomy, follows commands SKIN: Warm and dry. HEAD: Normocephalic. EYES: No scleral icterus. No injection or drainage. NECK: trachea midline. No JVD. Trach in place. Copious yellow thick secretions CARDIOVASCULAR: Regular rate and rhythm without murmurs, gallops, or rubs. RESPIRATORY: Breath sounds equal bilaterally, coarse rhonchi bilaterally predominantly at the bases, few coarse crackles. R 28F chest tube and R pigtail chest tube in place, positive air leak in both GASTROINTESTINAL: Abdomen soft, non-tender, nondistended. MUSCULOSKELETAL: No cyanosis, +1 edema. NEURO: Awake, follows commands. Grossly nonfocal A/P Assessment and Plan Neuro/Psych: Status post CPR 15 minutes Depression NOS Agitated Delirium --Neurochecks per ICU protocol --Zyprexa 10 mg q8h 09/27 (will reduce dose to total 20 mg gradually) --Melatonin q hs for sleep --prn breakthrough haldol for agitation --d/cd ativan due to paradoxical agitation. Continue Xanax 0.25 mg by mouth every 8 hours when necessary 09/26 --EEG 08/25 revealed mild to moderate encephalopathy. No epileptiform activity. --MRI brain 08/27 revealed no acute findings. Cardiovascular: Septic shock Cardiac arrest status post CPR Elevated troponin History dyslipidemia History of hypertension PVD Possible femoral pseudoaneurysm Off Levophed Monitor HR and BP keep MAP>65mmHg Starting Cardizem 30 minutes by mouth 4 times a day on 09/30 for Tachyarrhythmia Cardiac arrest status post CPR. s/p aggressive fluid resuscitation. minimal troponin elevation following cardiac arrest noted Echo 2D revealed EF 35-40%. Moderate LVH. Mitral valve calcified. Mild TR. Pulmonary: Tension pneumothorax s/p chest tube 09/27 Complete left lung collapse from mucous plugging 09/27 HCAP with GNR Acute respiratory failure secondary to aspiration pneumonia- Reintubated 09/06 s/p Trach on 09/08 End-stage COPD. Oxygen dependent FEV1 28%, FVC 1.6. S/P Aspiration 09/15 Status post emergency chest tube 2 for tension pneumothorax (09/27) following right attempted thoracentesis, 28 Prydeinig chest tube to -40cm water pressure. Right sided pigtail catheter appears to be out on chest x-ray and subsequently per RN was found to be dislodged and outside the chest wall. Following removal of the pigtail catheter air leak from the chest tube stopped. We'll repeat a chest x-ray later to follow-up on pneumothorax. Status post bronchoscopy for mucous plugging of the left main bronchus 09/27 s/p reintubation and bronch 09/06 mucous plugs in left main stem bronchus Continue with vent support keep sat >90%. PRVC. Daily C Pap trials, T piece as tolerated. Bronchodilators, Pulmicort twice a day Needs aggressive pulmonary rehab with LTAC. Continues to be very weak VQ scan low probability 08/29 ICU vent bundle, pulm toilet, trach care F/U CXR GI: Small bowel obstruction - resolved Upper GI bleed plus esophageal rule out aorto esophageal fistula History of Ashley esophagitis History of colonic polyps History of ventral hernia status post repair last by Dr. Roberts Diarrhea Resume tube feeds and advanced to goal as tolerated. Continue Reglan 5mg IV Q8, Senna, Lactulose, Colace. having BM From a GI standpoint, use nasogastric access at this time. continue frequent speech eval for swallowing, once clinically improved. s/p EGD 09/09: Deformed pylorus/antrum, nodular mucosa-multiple biopsies taken esophagitis distal esophagus-biopsy unable to place PEG endoscopically due to hiatal hernia. CT abdomen/pelvis revealed possible small bowel obstruction at level of ventral hernia. Severe aortoiliac disease. Dr. Roberts/general surgery evaluated. Very poor surgical candidate this time. EGD 08/25 revealed esophageal nipple. Clots noted within the gastric contents without active bleeding. Protonix for GI prophylaxis, 40 mg IV q12 Hold Bowel regimen for diarrhea. halfway nutrition plan: Feeding per DHT. the patient does not have a contraindication to replacement of DHT if it comes out accidentally. Continue speech/swallow eval and strengthening. I do think he will be strong enough to eat PO in the near future and will not medically require surgical feeding tube. Surgical feeding tube high risk given hernia. risks outweigh benefits. we have a defined long-term enteral feeding plan. Renal/: Acute kidney injury- resolved Hypernatremia History of bladder outlet obstruction Monitor renal function, I/O's, electrolytes replacement per protocol. Free water flushes 300ml Q6 monitor sodium level No hydronephrosis on CT abdomen/pelvis ID: New HCAP Severe sepsis UTI Fungemia Stenotrophomonas HCAP, s/p course of Levaquin 09/10 - 09/16 s/p course of micafungin for fungemia Restarted Levaquin 09/26 secondary to increased secretions send sputum culture, Added cefepime 09/27 ID following Pertinent cultures 09/26: Sputum GNR 09/08 Bronch: S. Maltophilia, 09/06 Bronch- S. Maltophilia, 09/03 - blood culture - no growth 09/02 - blood culture - no growth 08/27 - blood from central line -Ashley Glabrata 08/27 -arterial line blood - pending 08/26 - sputum -Serratia 08/25 - blood cultures 2 -Ashley 08/25 - urine -no growth 08/22 - blood cultures 2 - no growth 08/21 - urine - no growth 08/20 - blood cultures 2 - 1 out of 4 staph epi Endocrine: Chronic prednisone use secondary to COPD SSI for glycemic control as needed. Heme: s/p Acute blood loss anemia History of prostate cancer Status post 4 units PRBCs ands 2 units FFP on 08/24. Given one unit PRBCs 08/26, 1U 09/26 Additional 1 unit 09/28/16 Monitor CBC H/H stable. MSK: PT/OT evaluate and treat. Attempt up to chair daily with PT Access - peripheral IV's, PICC line placed 09/11 Prophylaxis - GI -Protonix 40 q12 - DVT - SCD/ heparin 5000 u Sq Q12- cleared by GI. Resumed heparin 09/30 Blair Espinoza MD Sep 30, 2016 13:49
[2016-09-30] MEDS: DILTIAZEM HCL 30 MG TAB PO SCH ×3 (15:16→20:54)
[2016-09-30] MEDS: RESP: ALBUTEROL 2.5 MG/IPRATROPIUM 0.5 MG NEB (PRN) INH ×2 (15:31→21:04)
[2016-09-30] MEDS: HEPARIN SODIUM - SQ 10,000 UNITS/ML VIAL SQ SCH (20:53)
[2016-09-30] MEDS: MELATONIN 5 MG TAB PO SCH (20:54)
[2016-10-01] VITALS (21 sets, daily range): BP systolic 105–139; BP diastolic 57–77; PULSE 82–110; RESP 16–31; TEMP 98–98.4; O2SAT 94–100
[2016-10-01] MEDS: OLANZapine ODT 5 MG TAB PO SCH ×3 (01:07→18:07)
[2016-10-01] MEDS: METOCLOPRAMIDE HCL 10 MG/2 ML VIAL IV PUSH SCH ×4 (01:07→23:36)
[2016-10-01] MEDS: RESP: ALBUTEROL 2.5 MG/IPRATROPIUM 0.5 MG NEB (PRN) INH ×5 (03:32→21:14)
[2016-10-01] MEDS: RESP: ACETYLCYSTEINE 10% 30 ML NEB NEB SCH ×4 (03:32→21:14)
--- NOTE | 2016-10-01 05:17 | RADRPT ---
EXAM DATE/TIME: 10/01/2016 03:55 [place] COMPARISON: CHEST SINGLE AP, September 29, 2016, 11:42. INDICATIONS : Evaluate right pneumothorax MEDICAL HISTORY : Cardiovascular disease. Chronic obstructive pulmonary disease SURGICAL HISTORY : None. ENCOUNTER: Subsequent ACUITY: 1 week PAIN SCORE: Non-responsive. LOCATION: Right chest FINDINGS: A single view of the chest demonstrates bilateral basal pleural-parenchymal densities, slightly more prominent on current study. Right-sided chest tube unchanged in position. Small right apical pneumoth orax is unchanged. Tracheostomy tube, nasogastric tube and right-sided PICC line are unchanged. Osse ous structures are intact. CONCLUSION: 1. Bilateral pleural-parenchymal densities are slightly more prominent. 2. Small right apical pneumothorax is unchanged. Eduardo Mcconnell MD on October 01, 2016 at 5:10 Board Certified Radiologist. This report was verified electronically.
[2016-10-01] MEDS: NYSTATIN 100,000 U/GM PWD 15 GM BTL TOPICAL SCH ×3 (06:00→20:10)
[2016-10-01] MEDS: INSULIN NovoLIN REGULAR SUPPLEMENTAL SCALE SQ SCH ×5 (06:00→23:36)
[2016-10-01] MEDS: FREE WATER G-TUBE SCH ×4 (06:00→23:36)
[2016-10-01] MEDS: CHLORHEXIDINE GLUCONATE 0.12% 15 ML CUP SCH ×2 (08:00→20:00)
[2016-10-01] MEDS: TAMSULOSIN HCL 0.4 MG CAP PO SCH (08:33)
[2016-10-01] MEDS: LEVOFLOXACIN 750 MG PREMIX INJ 150 ML IV SCH (08:39)
[2016-10-01] MEDS: SODIUM CHLORIDE 0.9% FLUSH 10 ML FLUSH IV FLUSH SCH (08:40)
[2016-10-01] MEDS: HEPARIN SODIUM - SQ 10,000 UNITS/ML VIAL SQ SCH ×2 (08:41→20:10)
[2016-10-01] MEDS: PANTOPRAZOLE SODIUM 40 MG VIAL IV PUSH SCH ×2 (08:41→20:09)
[2016-10-01] MEDS: COLLAGENASE OINT 30 GM TUBE TOP SCH (08:42)
[2016-10-01] MEDS: DOCUSATE SODIUM 100 MG/10 ML UDC PO SCH ×2 (08:42→20:09)
[2016-10-01] MEDS: MULTIVITAMINS/MINERALS THERAPEUTIC TAB PO SCH (08:42)
[2016-10-01] MEDS: SENNOSIDES SYRUP 8.8 MG/5 ML CUP PO SCH (08:42)
[2016-10-01] MEDS: LACTULOSE SYRUP 20 GM/30 ML CUP PO SCH (08:42)
[2016-10-01] MEDS: DILTIAZEM HCL 30 MG TAB PO SCH ×4 (08:43→20:10)
[2016-10-01] MEDS: DOXAZOSIN MESYLATE 2 MG TAB PO SCH (08:43)
[2016-10-01] MEDS: SODIUM CHLORIDE 0.9% FLUSH 5 ML FLUSH IVF SCH (08:43)
[2016-10-01] MEDS: RESP: BUDESONIDE 0.5 MG/2 ML NEB NEB SCH ×2 (09:21→20:39)
[2016-10-01] MEDS: HYDROmorphone HCL PF 1 MG/ML VIAL IV PRN ×2 (09:53→20:44)
--- NOTE | 2016-10-01 12:00 | HHI.CCPN ---
Subjective Remarks/Hospital Course 08/24: 71 Year-old male with a medical history significant for COPD on home oxygen who was recently admitted with suspected sepsis/H And was initiated on IV antibiotics and steroids. He had recently been evaluated by GI and underwent EGD on 08/10/2016 and was found to have moderate esophagitis, mild gastritis with pathology subsequently showing Ashley esophagitis as well as colonoscopy on 08/11/2016 with polypectomy and ablation of polyp in ascending colon with hot snare. Patient has been dealing with constipation since his admission. Today when he was trying to have a bowel movement he suddenly became less responsive and then had a large emesis which resulted in aspiration and hemodynamic collapse. Patient initially had large volume emesis with dark maroon blood. CODE BLUE cardiac arrest code was activated. On my arrival patient was in bed CPR had been initiated. Significant gastric contents was still being suctioned out of his oral cavity. ACLS protocol was continued. Patient was intubated following vigorous suctioning of gastric contents from oral cavity as well as with placement of NG tube which is hooked up to suction and about 1.5 L of gastric contents being suctioned out which appeared to be dark maroon in color. Patient initially had a pulse when CODE BLUE was called and subsequently went in PEA arrest followed by asystole during ACLS and then V. fib for which he was defibrillated with 200 J 1, CPR/ACLS protocol was continued and patient eventually had return of spontaneous circulation after about 15 minutes of CPR/ACLS. Patient was transferred to [facility] and placed on mechanical ventilation. I emergently placed left femoral central line for central vascular access and he was started on Levophed for pressor support. 2 units of O- 1 crossmatch blood were ordered and transfused stat. He also received 1 L of normal saline bolus following return of spontaneous circulation. Stat labs were ordered. His hemoglobin on ABG done post resuscitation was 5.6. I did order Protonix 80 mg IV stat followed by 8 mg per hour IV infusion. Patient remained encephalopathic though was minimally responsive following transfer to the ICU. GI consult was requested and I spoke with Dr. Zamarripa at bedside on his arrival. History was obtained by reviewing records, discussion with family/ GI as well as nursing staff. According to patient's daughter he has not been doing well for the last few months in terms of his breathing and has been using his home oxygen more often. He gets extremely short of breath even with the least exertion. 08/25: Remains encephalopathic/ sedated, [facility]. Transiently off levophed last night however back to 11 mcg/min currently. Hgb up to 9.4 following 4 units PRBCs transfused last night. 08/26: Tmax 99. Some unresponsive on the ventilator. CT abdomen/pelvis less than revealed small bowel obstruction at site of ventral hernia. No further bleeding noted. Gastric output approximately 700 cc. No bowel movement. 08/27: Tmax 99.7. Currently afebrile. Positive BM overnight approximately 1 L according to RN. No blood noted. 100 cc from gastric tube overnight. Hemoglobin corrected a properly. Likely dilutional. Noted fungemia currently issue. Opens eyes to voice. 08/28: Tmax 99.1. No BMs overnight. Minimal gastric tube output. Hemoglobin stable 9.5. Opens eyes to voice. Not following commands. Appears with singultus this morning. 08/29: 20 beat run of wide complex tachycardia overnight. Noted potassium 3.2. This is been replaced. We'll recheck this afternoon. Circuit exchange yesterday. Patient tolerating pressure control ventilation much better than PRVC/AC ventilation is low probably VQ scan. Less FiO2 requirements. No BM past 24 hour. 08/30: Unable to wean ventilator. 08/31: Patient was extubated on 08/30 however became tachypneic with use of accessory muscles of respiration and required reintubation around 6:30 PM last night and was placed back on mechanical ventilation. Currently sedated, orally intubated on mechanical ventilation. Post intubation chest x-ray suggested fluid overload for which she was given Lasix 40 mg IV with good response having made about 2.5 L urine the last 7 hours. 09/01: Remains sedated, orally intubated on mechanical ventilation. Diuresing well with Lasix. Awaiting EGD in a.m. 09/02: Little progress. CXR clearing nicely. Continue diuresis, tolerate hypernatremia. 09/03: Good diuretic response. CRISTHIAN today with no valvar pathology. 09/04: Too weak to tolerate extubation. Will require trach. 09/05: Sedated, arousable, following commands. Tolerated C Pap trial for 9 hours yesterday with pressure support +10. Tolerating tube feeds. 09/06: Extubated yesterday. Chest x-ray reveals likely mucous plugging in left lung garcia. Currently on nonrebreather mask. Planning of insomnia and thick secretions that he is unable to cough up. 09/07 Patient s/p reintubation and bronch 09/06 mucous plugs in left main stem bronchus sedated with Diprivan and Fentanyl. Afebrile. For possible trach tomorrow. 09/08 No acute events overnight. Sedated with Diprivan and Fentanyl. Afebrile. For trach today. 09/09 No acute events overnight. Sedated and intubated. s/p trach yesterday for PEG tube placement today. 09/10 Patient remains sedated and on ventilator via trach. s/p EGD yesterday PEG tube couldn't be placed endoscopically due to hernia. Surgery consulted for J-tube placement. Afebrile. 09/11 No acute events overnight. Sedated with Diprivan, Fentanyl and intubated. Afebrile. Tolerating tube feeds. 09/12 Patient is off Diprivan remains on Fentanyl infusion tolerated CPAP trials for several hrs and TP's x 2 hrs yesterday now on TP with 50% FIO2. Afebrile. 09/13 Patient tolerated TP's all day yesterday placed on PRVC/AC mode overnight. TF held for high residuals. Afebrile. On Fentanyl infusion however he is awake, restless. 09/14 No acute events overnight. Tolerated TP's all day yesterday placed back on ventilator overnight. On Fentanyl infusion. Afebrile. Repeat KUB this morning showed ileus. 09/15 Patient is off fentanyl infusion and is on Precedex drip pulled his NGT overnight. KUB this morning showed improvements in gaseous distention of bowel. 09/16 Yesterday afternoon an NG tube was placed patient was noted to have tube feeds with possible aspiration.NGT placed this am, KUB pending. 09/17: no acute events overnight. tolerated cpap. back on rate overnight. this morning on trach collar. 09/18: prior history of constipation, now with diarrhea. otherwise, awaiting placement. 09/19: diarrhea improving. still awaiting placement. 09/20: still doing well. on trach collar this morning on my evaluation. insurance has not yet approved placement. 09/21: tired out on trach collar yesterday. placed intermittently on cpap. insurance denied LTAC. will work towards [id number]. 09/22: had [id number] today. insurance continues to request permanent surgical feeding access to go to LTAC. My medical opinion is that patient is clinically improving and tolerating DHT without complication, and could safely be fed through DHT for the coming weeks, and I anticipate his dysphagia to resolve as his strength improves. I do not see a clinical indication for permanent surgical gastric access. We also are not a rehab center, and he is not getting medically appropriate care for his level of medical need. He does not require ICU admission, and medically would be more appropriate for LTAC. 09/23: transferred to [facility]. doing well. tachycardic this morning. diltiazem changed from QID to q6hr for more even distribution. insurance company denied admission to LTAC. will continue to pursue this as an option. otherwise, OOB to chair daily. still working with speech. 09/24: did not sleep well overnight. agitated. awake most of the night. I removed stay sutures from trach this morning. 09/25: Received Haldol overnight, resting now. Not agitated. On PRVC/AC. CPAP trails to resume today. Somnolent but wakes up and follows commands 09/26: Continues to have large amount of tracheal secretions. Levaquin restarted sputum culture ordered. Chest x-ray is pending. Did not tolerate CPAP yesterday became tachycardic and hypoxic Subjective 09/27: Tolerated CPAP approximately 6-7 hours became tachypneic afterwards. Currently on full vent support FiO2 50%. Chest x-ray from yesterday shows bilateral pleural effusions/infiltrate right more than left. CT chest ordered cefepime added sputum culture is pending. More delirious at night, now with eyes open following commands EVENTS FROM 09/27/16 evening Patient was turned to left side for thoracentesis, he acutely desaturated to low 70s prior to starting the procedure. Patient was placed back in supine, bag and mask ventilation performed until sats came up to 98%. Patient was again partially turned to left side and thoracentesis was attempted. Even though ultrasound showed fluid, air was withdrawn into the syringe. Procedure was abandoned and patient was put in neutral position. Peak pressures on the vent increased and patient started desaturating to 70s indicating tension pneumothorax. The thoracentesis Angiocath was used for emergency decompression and bag and mask ventilation became easier. An emergency 8 Moldovan pigtail catheter was placed and connected to Pleur-evac. This had significant air leak but patient remained with low oxygen saturation in 70s. Additional 28 Moldovan chest tube was emergently placed with a gradual improvement in saturation to mid 80s. (Chest tube/Pigtail tray was not available immediately at the bedside , and the tech had to run to the [facility] to get the chest tube tray). Patient was placed back on PC/ACmechanical ventilation with low tidal volume. Post chest tube chest x-ray shows good reexpansion of the lung and good positioning of the chest tubes. But the left lung is collapsed with mediastinal shift to the left indicating bronchial obstruction probably from mucous plug. I attempted bronchoscopy with intubating bronchoscope available here at [place]. I was unable to suction out any mucus plugging, or visualize clearly. Patient was transferred to [facility] in [facility]. Dr. Espinoza performed therapeutic bronchoscopy with pediatric bronchoscope, and he was in able to clear a significant amount of secretion with reexpansion of lung. 09/28: Chest x-ray today shows right sided pneumothorax almost resolved. Good reexpansion of the left lung also bibasilar infiltrates seen. Sputum culture growing gram-negative rods. Patient is awake alert on full vent support. Levophed is being weaned currently on 4 mics per minute 09/29: Remains on mechanical ventilation via tracheostomy. Continues to have persistent air leak from right sided pigtail catheter as well as chest tube. Chest x-ray today shows slight increase in size of right pneumothorax. 09/30: Remains on mechanical ventilation via tracheostomy. Very small air leak noted in right sided chest tube. 10/01: Remains on mechanical ventilation via tracheostomy. Daily C Pap and T piece trials. Very small air leak noted. Decreased suction on right chest tube to -20 cm water pressure today. Objective Vital Signs Date Time Temp Pulse Resp B/P Pulse Ox O2 Delivery O2 Flow Rate FiO2 10/01/16 10:00 96 10/01/16 08:56 98 40 10/01/16 04:00 98.1 16 105/57 Intake and Output 09/30/16 09/30/16 10/01/16 08:00 16:00 00:00 Intake Total 1104 ml 944 ml 662 ml Output Total 1185 ml 660 ml 475 ml Balance -81 ml 284 ml 187 ml Result Diagram: 09/30/16 0615 09/29/16 0500 Imaging Last Impressions Abdomen X-Ray 09/15/16 0600 Signed Impressions: Service Date/Time: Thursday, September 15, 2016 03:16 - CONCLUSION: 1. Improved gaseous distention of bowel since September 14. Mild distention persists. 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 There is concentric mural thrombus. This aneurysm is not amenable to thrombin injection. Polo Moore Jr., MD Lung Scan- Nuclear Medicine 08/29/16 0000 Signed Impressions: Service Date/Time: Monday, August 29, 2016 10:20 - CONCLUSION: Low probability for pulmonary embolus. Lex Lopez MD Brain MRI 08/27/16 0000 Signed Impressions: Service Date/Time: August 15:13 - CONCLUSION: No evidence of acute infarct, hemorrhage, mass or edema. No findings to suggest significant anoxic injury. Kit Power MD Renal Ultrasound 08/25/16 0000 Signed Impressions: Service Date/Time: Wednesday, August 24, 2016 21:53 - CONCLUSION: 1. There is no hydronephrosis. Both kidneys demonstrate mild increased echotexture of the parenchyma suggesting medical renal disease. 2. Trace perihepatic free fluid and bilateral pleural effusions. Lex Malik MD Chest CT 08/25/16 0000 Signed Impressions: Service Date/Time: Thursday, August 25, 2016 21:20 - CONCLUSION: 1. Bilateral pneumonia and aspiration would be in the differential. There is dependent consolidation/atelectasis and small effusions of the bases as well. 2. Upper limits of normal to mildly enlarged mediastinal lymph nodes, most likely reactive. 3. Coronary artery calcification. 4. Right rib fractures, including acute fractures laterally of the third, fourth and fifth. There are old, healed fractures anteriorly of the right second and third ribs.. Lex Lopez MD Abdomen/Pelvis CT 08/25/16 0000 Signed Impressions: Service Date/Time: Thursday, August 25, 2016 20:20 - CONCLUSION: 1. Ventral hernia containing small bowel and with associated small bowel obstruction. The defect is broad; I believe the obstruction is probably related to scarring and/or adhesions within the hernia sac. I don't see a mass. 2. Distended stomach despite NG tube present. 3. Severe aortoiliac atherosclerosis. No aneurysm. Lex Lopez MD Objective Remarks GENERAL: Patient is 71 yo lying in bed in bed, on mechanical ventilation via tracheostomy, follows commands SKIN: Warm and dry. HEAD: Normocephalic. EYES: No scleral icterus. No injection or drainage. NECK: trachea midline. No JVD. Trach in place. Copious yellow thick secretions CARDIOVASCULAR: Regular rate and rhythm without murmurs, gallops, or rubs. RESPIRATORY: Breath sounds equal bilaterally, coarse rhonchi bilaterally predominantly at the bases, few coarse crackles. Intermittent air leak in right sided chest tube noted GASTROINTESTINAL: Abdomen soft, non-tender, nondistended. MUSCULOSKELETAL: No cyanosis, +1 edema. NEURO: Awake, follows commands. Grossly nonfocal A/P Assessment and Plan Neuro/Psych: Status post CPR 15 minutes Depression NOS Agitated Delirium --Neurochecks per ICU protocol --Zyprexa 10 mg q8h 09/27 (will reduce dose to total 20 mg gradually) --Melatonin q hs for sleep --prn breakthrough haldol for agitation --d/cd ativan due to paradoxical agitation. Continue Xanax 0.25 mg by mouth every 8 hours when necessary 09/26 --EEG 08/25 revealed mild to moderate encephalopathy. No epileptiform activity. --MRI brain 08/27 revealed no acute findings. Cardiovascular: Septic shock Cardiac arrest status post CPR Elevated troponin History dyslipidemia History of hypertension PVD Possible femoral pseudoaneurysm Off Levophed Monitor HR and BP keep MAP>65mmHg Starting Cardizem 30 minutes by mouth 4 times a day on 09/30 for Tachyarrhythmia Cardiac arrest status post CPR. s/p aggressive fluid resuscitation. minimal troponin elevation following cardiac arrest noted Echo 2D revealed EF 35-40%. Moderate LVH. Mitral valve calcified. Mild TR. Pulmonary: Tension pneumothorax s/p chest tube 09/27 Complete left lung collapse from mucous plugging 09/27 HCAP with GNR Acute respiratory failure secondary to aspiration pneumonia- Reintubated 09/06 s/p Trach on 09/08 End-stage COPD. Oxygen dependent FEV1 28%, FVC 1.6. S/P Aspiration 09/15 Status post emergency chest tube 2 for tension pneumothorax (09/27) following right attempted thoracentesis, 28 Moldovan chest tube to -20cm water pressure. Status post bronchoscopy for mucous plugging of the left main bronchus 09/27 s/p reintubation and bronch 09/06 mucous plugs in left main stem bronchus Continue with vent support keep sat >90%. PRVC. Daily C Pap trials, T piece as tolerated. Bronchodilators, Pulmicort twice a day Needs aggressive pulmonary rehab with LTAC. Continues to be very weak VQ scan low probability 08/29 ICU vent bundle, pulm toilet, trach care F/U CXR GI: Small bowel obstruction - resolved Upper GI bleed plus esophageal rule out aorto esophageal fistula History of Ashley esophagitis History of colonic polyps History of ventral hernia status post repair last by Dr. Roberts Diarrhea Continue tube feeds and advance to goal as tolerated. Continue Reglan 5mg IV Q8, Senna, Lactulose, Colace. having BM From a GI standpoint, use nasogastric access at this time. continue frequent speech eval for swallowing, once clinically improved. s/p EGD 09/09: Deformed pylorus/antrum, nodular mucosa-multiple biopsies taken esophagitis distal esophagus-biopsy unable to place PEG endoscopically due to hiatal hernia. CT abdomen/pelvis revealed possible small bowel obstruction at level of ventral hernia. Severe aortoiliac disease. Dr. Roberts/general surgery evaluated. Very poor surgical candidate this time. EGD 08/25 revealed esophageal nipple. Clots noted within the gastric contents without active bleeding. Protonix for GI prophylaxis, 40 mg IV q12 Hold Bowel regimen for diarrhea. 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 the patient does not have a contraindication to replacement of DHT if it comes out accidentally. Continue speech/swallow eval and strengthening. I do think he will be strong enough to eat PO in the near future and will not medically require surgical feeding tube. Surgical feeding tube high risk given hernia. risks outweigh benefits. we have a defined long-term enteral feeding plan. Renal/: Acute kidney injury- resolved Hypernatremia History of bladder outlet obstruction Monitor renal function, I/O's, electrolytes replacement per protocol. Free water flushes 300ml Q6 monitor sodium level No hydronephrosis on CT abdomen/pelvis ID: New HCAP Severe sepsis UTI Fungemia Stenotrophomonas HCAP, s/p course of Levaquin 09/10 - 09/16 s/p course of micafungin for fungemia Restarted Levaquin 09/26 secondary to increased secretions send sputum culture, Added cefepime 09/27 ID following Pertinent cultures 09/26: Sputum GNR 09/08 Bronch: S. Maltophilia, 09/06 Bronch- S. Maltophilia, 09/03 - blood culture - no growth 09/02 - blood culture - no growth 08/27 - blood from central line -Ashley Glabrata 08/27 -arterial line blood - pending 08/26 - sputum -Serratia 08/25 - blood cultures 2 -Ashley 08/25 - urine -no growth 08/22 - blood cultures 2 - no growth 08/21 - urine - no growth 08/20 - blood cultures 2 - 1 out of 4 staph epi Endocrine: Chronic prednisone use secondary to COPD SSI for glycemic control as needed. Heme: s/p Acute blood loss anemia History of prostate cancer Status post 4 units PRBCs ands 2 units FFP on 08/24. Given one unit PRBCs 08/26, 1U 09/26 Additional 1 unit 09/28/16 Monitor CBC H/H stable. MSK: PT/OT evaluate and treat. Attempt up to chair daily with PT Access - peripheral IV's, PICC line placed 09/11 Prophylaxis - GI -Protonix 40 q12 - DVT - SCD/ heparin 5000 u Sq Q12- cleared by GI. Resumed heparin 09/30 Blair Espinoza MD Oct 01, 2016 12:00
--- NOTE | 2016-10-01 13:57 | HHI.IDPN ---
Subjective Subjective Remarks Notes reviewed Temps ok On CPAP Not SOB Tolerating TF Bronch C/S Sten mal Has 2 CT on R Had bronch Antibiotics Levaquin, restarted 09/26 Lines PICC - 09/11 Past Medical History Reviewed Allergies: Coded Allergies: *MDRO Multi-Drug Resistant Organism (Verified Adverse Reaction, Unknown, ) MRSA (abdominal wound) 2015 per 04/10/2015 H&P MRSA PCR Screen #1 NEGATIVE - 08/21/16 Objective . Vital Signs Date Time Temp Pulse Resp B/P Pulse Ox O2 Delivery O2 Flow Rate FiO2 10/01/16 13:02 94 40 10/01/16 12:18 96 T-piece 5.00 30 10/01/16 12:07 97 40 10/01/16 10:00 96 10/01/16 09:30 40 10/01/16 09:30 97 40 10/01/16 08:56 98 40 10/01/16 08:00 98.1 101 20 138/70 98 10/01/16 08:00 40 10/01/16 08:00 98 10/01/16 06:00 88 10/01/16 04:01 97 40 10/01/16 04:00 40 10/01/16 04:00 94 10/01/16 04:00 98.1 90 16 105/57 94 10/01/16 02:00 82 10/01/16 01:18 98 40 10/01/16 00:00 98.4 84 19 110/65 98 10/01/16 00:00 84 09/30/16 22:27 94 40 09/30/16 22:00 88 09/30/16 20:48 96 40 09/30/16 20:00 82 09/30/16 20:00 97.8 82 18 116/70 98 09/30/16 20:00 40 09/30/16 18:00 79 09/30/16 16:00 100 09/30/16 16:00 40 09/30/16 16:00 99.2 100 18 106/81 100 09/30/16 14:00 118 09/30/16 09/30/16 10/01/16 15:00 23:00 07:00 Intake Total 944 ml 662 ml 920 ml Output Total 660 ml 475 ml 600 ml Balance 284 ml 187 ml 320 ml IV Total 344 ml 204 ml 242 ml Tube Feeding 400 ml 258 ml 278 ml Other 200 ml 200 ml 400 ml Output Urine Total 650 ml 475 ml 600 ml Chest Tube Drainage Total 10 ml # Bowel Movements 1 0 0 . Laboratory Tests Test 09/30/16 06:15 White Blood Count 6.0 TH/MM3 Red Blood Count 2.81 MIL/MM3 Hemoglobin 8.7 GM/DL Hematocrit 25.0 % Mean Corpuscular Volume 88.7 FL Mean Corpuscular Hemoglobin 30.8 PG Mean Corpuscular Hemoglobin 34.8 % Concent Red Cell Distribution Width 17.4 % Platelet Count 208 TH/MM3 Mean Platelet Volume 8.7 FL Microbiology Date/Time Procedure Status Source Growth 09/28/16 14:54 Aerobic Blood Culture - Preliminary Resulted Blood Peripheral NO GROWTH IN 3 DAYS 09/28/16 14:54 Anaerobic Blood Culture - Preliminary Resulted Blood Peripheral NO GROWTH IN 3 DAYS 09/28/16 15:00 Aerobic Blood Culture - Preliminary Resulted Blood Peripheral NO GROWTH IN 3 DAYS 09/28/16 15:00 Anaerobic Blood Culture - Preliminary Resulted Blood Peripheral NO GROWTH IN 3 DAYS Imaging Chest X-Ray 09/28/16 0600 Signed Impressions: Service Date/Time: Wednesday, September 28, 2016 04:23 - CONCLUSION: 1. Decreasing pneumothorax along the right lung base. 2. Bibasilar densities again seen. Eduardo Mcconnell MD Chest X-Ray 09/27/16 2230 Signed Impressions: Service Date/Time: Tuesday, September 27, 2016 22:36 - CONCLUSION: 1. Mild basilar airspace disease. Small right pneumothorax but increased from earlier exam. Near-complete reexpansion of the left lung. No left pneumothorax. Eleazar Jimenez MD Chest X-Ray 09/27/16 0600 Signed Impressions: Service Date/Time: Tuesday, September 27, 2016 06:24 - CONCLUSION: Hazy density seen in the chest bilaterally likely related to bilateral effusions. Some degree of atelectasis or consolidation at the bases also needs to be considered. Lex Lopez MD Chest X-Ray 09/27/16 0000 Signed Impressions: Service Date/Time: Tuesday, September 27, 2016 18:12 - CONCLUSION: 1. Development of near complete atelectasis of the left lung since exam from earlier today with mediastinal shift from right to left. 2 right chest tubes now present with small right pneumothorax. 2. Tracheostomy and NG tube unchanged. Findings discussed by telephone with Dr. Burnett. Eleazar Jmienez MD Chest CT 09/27/16 0000 Signed Impressions: Service Date/Time: Tuesday, September 27, 2016 09:17 - CONCLUSION: Bilateral large layering pleural effusions with complete atelectasis of the lower lobes. There is been interval placement of a tracheostomy tube which appears appropriately positioned. NG tube appears in appropriate position as does the right-sided central line.. Lola Jean Baptiste MD Chest X-Ray 09/26/16 0600 Signed Impressions: Service Date/Time: Monday, September 26, 2016 06:38 - CONCLUSION: Hazy density throughout the lungs likely related to bilateral effusions. Some degree of atelectasis or consolidation at the lung bases also needs to be considered. Lex Lopez MD Chest X-Ray 09/16/16 0000 Signed Impressions: Service Date/Time: Friday, September 16, 2016 04:58 - CONCLUSION: 1. Tracheostomy and right PICC line present. Bilateral airspace disease, right greater than left similar to September 15. Eleazar Jimenez MD Abdomen X-Ray 09/16/16 0000 Signed Impressions: Service Date/Time: Friday, September 16, 2016 10:54 - CONCLUSION: 1. Nasogastric tube looped in the distal esophagus. Gareth Escalante MD Abdomen X-Ray 09/15/16 0600 Signed Impressions: Service Date/Time: Thursday, September 15, 2016 03:16 - CONCLUSION: 1. Improved gaseous distention of bowel since September 14. Mild distention persists. Eleazar Jimenez MD Chest X-Ray 09/15/16 0000 Signed Impressions: Service Date/Time: Thursday, September 15, 2016 13:39 - CONCLUSION: Decrease in medial left lung base atelectasis. No change in hazy right lung base opacity. Donald Valerio MD Abdomen X-Ray 09/14/16 0600 Signed Impressions: Service Date/Time: Wednesday, September 14, 2016 03:56 - CONCLUSION: Gaseous distention of multiple bowel loops, likely ileus. Eduardo Mcconnell MD Chest X-Ray 09/08/16 1325 Signed Impressions: Service Date/Time: Thursday, September 08, 2016 13:37 - CONCLUSION: 1. Interval improvement of the interstitial infiltrates with minimal residual right basilar infiltrate noted. 2. Tracheostomy tube in good position approximately 5 cm above the michele. Lui Kim MD Chest X-Ray 09/06/16 0000 Signed Impressions: Service Date/Time: Tuesday, September 06, 2016 13:49 - CONCLUSION: 1. Interval intubation and placement of nasogastric tube. 2. Volume loss again noted left hemithorax with mediastinal shift. There is coarse infiltrate remaining in the left lung. Ian Horton MD Chest X-Ray 09/06/16 0000 Signed Impressions: Service Date/Time: Tuesday, September 06, 2016 08:50 - CONCLUSION: 1. Increasing density throughout the left hemithorax with volume loss suggesting mucus plugging. Eduardo Mcconnell MD Chest X-Ray 09/05/16 0500 Signed Impressions: Service Date/Time: Monday, September 05, 2016 03:49 - CONCLUSION: 1. Basilar airspace disease similar to prior exam. Support apparatus unchanged. Eleazar Jimenez MD Chest X-Ray 09/05/16 0500 Signed Impressions: Service Date/Time: Monday, September 05, 2016 03:49 - CONCLUSION: 1. Basilar airspace disease similar to prior exam. Support apparatus unchanged. Eleazar Jimenez MD Chest X-Ray 09/01/16 0600 Signed Impressions: Service Date/Time: Thursday, September 01, 2016 03:19 - CONCLUSION: No significant interval change in bilateral pulmonary parenchymal opacity and small bilateral pleural effusions. 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 There is concentric mural thrombus. This aneurysm is not amenable to thrombin injection. Polo Moore Jr., MD Chest X-Ray 08/27/16 0600 Signed Impressions: Service Date/Time: August 02:27 - CONCLUSION: 1. Patchy bilateral airspace disease with improving aeration/decreasing effusions in the bases bilaterally. 2. Stable position of life support tubes. Con Valdes MD Chest X-Ray 08/26/16 0754 Signed Impressions: Service Date/Time: Friday, August 26, 2016 08:14 - CONCLUSION: Left IJ central line distal tip in the SVC. No pneumothorax is visualized. There is a stable appearance the lungs with bilateral airspace consolidation. Lex Malik MD Chest X-Ray 08/26/16 0600 Signed Impressions: Service Date/Time: Friday, August 26, 2016 04:01 - CONCLUSION: 1. Worsening bibasilar effusions/atelectasis with diffuse interstitial edema, all characteristic of CHF. 2. Endotracheal tube remains appropriately positioned above the michele Con Valdes MD Chest X-Ray 08/26/16 0754 Signed Impressions: Service Date/Time: Friday, August 26, 2016 08:14 - CONCLUSION: Left IJ central line distal tip in the SVC. No pneumothorax is visualized. There is a stable appearance the lungs with bilateral airspace consolidation. Lex Malik MD Renal Ultrasound 08/25/16 0000 Signed Impressions: Service Date/Time: Wednesday, August 24, 2016 21:53 - CONCLUSION: 1. There is no hydronephrosis. Both kidneys demonstrate mild increased echotexture of the parenchyma suggesting medical renal disease. 2. Trace perihepatic free fluid and bilateral pleural effusions. Lex Malik MD Chest CT 08/25/16 0000 Signed Impressions: Service Date/Time: Thursday, August 25, 2016 21:20 - CONCLUSION: 1. Bilateral pneumonia and aspiration would be in the differential. There is dependent consolidation/atelectasis and small effusions of the bases as well. 2. Upper limits of normal to mildly enlarged mediastinal lymph nodes, most likely reactive. 3. Coronary artery calcification. 4. Right rib fractures, including acute fractures laterally of the third, fourth and fifth. There are old, healed fractures anteriorly of the right second and third ribs.. Lex Lopez MD Abdomen/Pelvis CT 08/25/16 0000 Signed Impressions: Service Date/Time: Thursday, August 25, 2016 20:20 - CONCLUSION: 1. Ventral hernia containing small bowel and with associated small bowel obstruction. The defect is broad; I believe the obstruction is probably related to scarring and/or adhesions within the hernia sac. I don't see a mass. 2. Distended stomach despite NG tube present. 3. Severe aortoiliac atherosclerosis. No aneurysm. Lex Lopez MD Abdomen X-Ray 08/24/16 0000 Signed Impressions: Service Date/Time: Wednesday, August 24, 2016 17:19 - CONCLUSION: 1. Small bowel dilatation which reflect ileus or obstruction. Followup examination is recommended if clinically indicated. Gareth Escalante MD Physical Exam GENERAL: Awake, and alert, following, NAD. On the vent SKIN: Warm and dry. No generalized rash HEENT: Lavinia conjunctiva, no scleral icterus. Dry oral mucosa. Has NGT in place NECK: Trach site ok. Supple. CARDIOVASCULAR: Regular rate and rhythm without murmurs, gallops, or rubs. RESPIRATORY: Scattered rhonchi GASTROINTESTINAL: Abdomen soft, not tender, not distended. Has a large midline hernia reducible, mildly distended. Has midline scar. MUSCULOSKELETAL: Extremities without clubbing, cyanosis. No edema. LINE: PICC no evidence of infection. Assessment & Plan Remarks IMPRESSION New problem, respiratory, plugging, possible new VAP - S/P bronch 09/27 - BP better Sepsis present on admission and then sepsis again. Better Central line associated blood stream infection (CLABSI) related fungemia ( likely groin line) now discontinued. Arterial line discontinued as well. 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 - S/P Rx Sten mal in sputum, S/P Rx Status post cardiorespiratory arrest Findings SBO within the hernia on CT A/P, clinically better Acute respiratory failure, S/P trach Leukocytosis, better COPD, oxygen dependent Previous GI bleed with workup showing gastritis, Ashley esophagitis, and polyps Large incisional ventral hernia Bladder outlet obstruction, currently has a Hammond Renal insufficiency, resolved RECOMMENDATION Continue Levaquin - change to oral, and give until 10/09 Follow temps Monitor progress Weaning per [facility] Nuha Fernandez MD Oct 01, 2016 13:57
[2016-10-01] MEDS: MELATONIN 5 MG TAB PO SCH (20:10)
[2016-10-01] MEDS: ALPRAZolam 0.25 MG TAB PO PRN (23:36)
[2016-10-02] VITALS (17 sets, daily range): BP systolic 113–143; BP diastolic 66–84; PULSE 82–112; RESP 17–25; TEMP 97.9–98.8; O2SAT 92–100
[2016-10-02] MEDS: OLANZapine ODT 5 MG TAB PO SCH ×3 (03:15→18:00)
[2016-10-02] MEDS: INSULIN NovoLIN REGULAR SUPPLEMENTAL SCALE SQ SCH ×3 (06:00→18:00)
[2016-10-02 06:01] LABS: BICARBONATE 30.1 MEQ/L (21.0-32.0); POTASSIUM 3.4 MEQ/L (3.5-5.1)
[2016-10-02] MEDS: FREE WATER G-TUBE SCH ×3 (07:02→18:00)
[2016-10-02] MEDS: NYSTATIN 100,000 U/GM PWD 15 GM BTL TOPICAL SCH ×3 (07:02→21:07)
[2016-10-02] MEDS: HYDROmorphone HCL PF 1 MG/ML VIAL IV PRN ×3 (07:03→21:07)
[2016-10-02 07:12] LABS: CALCIUM-PROTEIN CORRECTED 9.5 MG/DL (8.5-10.1)
--- NOTE | 2016-10-02 07:16 | EKG ---
Date Performed: 09/30/2016 Time Performed: 11:32:20 PTAGE: 71 years EKG: Possible atrial fibrillation with rapid ventricular response with PVC(s) however at times o rganized atrial activity appears to be present. I would recommend an attempt at a repeat EKG with a s lower heart rate Right bundle branch block Inferior T wave changes are nonspecific Abnormal ECG Robe red to PREVIOUS TRACING , the above rhythm description is new. PREVIOUS TRACIN08/29/2016 03.1 1 DOCTOR: Eulogio Perrin Interpretating Date/Time 10/02/2016 07:15:04
[2016-10-02] MEDS: CHLORHEXIDINE GLUCONATE 0.12% 15 ML CUP SCH ×2 (08:00→20:00)
[2016-10-02] MEDS: RESP: BUDESONIDE 0.5 MG/2 ML NEB NEB SCH ×2 (08:25→20:50)
[2016-10-02] MEDS: RESP: ALBUTEROL 2.5 MG/IPRATROPIUM 0.5 MG NEB (PRN) INH (08:25)
[2016-10-02] MEDS: COLLAGENASE OINT 30 GM TUBE TOP SCH (09:00)
[2016-10-02] MEDS: SODIUM CHLORIDE 0.9% FLUSH 5 ML FLUSH IVF SCH (09:00)
[2016-10-02] MEDS: TAMSULOSIN HCL 0.4 MG CAP PO SCH (09:00)
[2016-10-02] MEDS: HEPARIN SODIUM - SQ 10,000 UNITS/ML VIAL SQ SCH ×2 (09:11→21:05)
[2016-10-02] MEDS: PANTOPRAZOLE SODIUM 40 MG VIAL IV PUSH SCH ×2 (09:11→21:06)
[2016-10-02] MEDS: SENNOSIDES SYRUP 8.8 MG/5 ML CUP PO SCH (09:11)
[2016-10-02] MEDS: METOCLOPRAMIDE HCL 10 MG/2 ML VIAL IV PUSH SCH ×2 (09:11→16:00)
[2016-10-02] MEDS: LACTULOSE SYRUP 20 GM/30 ML CUP PO SCH (09:12)
[2016-10-02] MEDS: LEVOFLOXACIN 750 MG TAB PO SCH (09:12)
[2016-10-02] MEDS: DOCUSATE SODIUM 100 MG/10 ML UDC PO SCH ×2 (09:12→21:05)
[2016-10-02] MEDS: SODIUM CHLORIDE 0.9% FLUSH 10 ML FLUSH IV FLUSH SCH (09:12)
[2016-10-02] MEDS: DILTIAZEM HCL 30 MG TAB PO SCH ×4 (09:12→21:05)
[2016-10-02] MEDS: DOXAZOSIN MESYLATE 2 MG TAB PO SCH (09:13)
[2016-10-02] MEDS: MULTIVITAMINS/MINERALS THERAPEUTIC TAB PO SCH (09:13)
--- NOTE | 2016-10-02 11:33 | HHI.CCPN ---
Subjective Remarks/Hospital Course 08/24: 71 Year-old male with a medical history significant for COPD on home oxygen who was recently admitted with suspected sepsis/H And was initiated on IV antibiotics and steroids. He had recently been evaluated by GI and underwent EGD on 08/10/2016 and was found to have moderate esophagitis, mild gastritis with pathology subsequently showing Ashley esophagitis as well as colonoscopy on 08/11/2016 with polypectomy and ablation of polyp in ascending colon with hot snare. Patient has been dealing with constipation since his admission. Today when he was trying to have a bowel movement he suddenly became less responsive and then had a large emesis which resulted in aspiration and hemodynamic collapse. Patient initially had large volume emesis with dark maroon blood. CODE BLUE cardiac arrest code was activated. On my arrival patient was in bed CPR had been initiated. Significant gastric contents was still being suctioned out of his oral cavity. ACLS protocol was continued. Patient was intubated following vigorous suctioning of gastric contents from oral cavity as well as with placement of NG tube which is hooked up to suction and about 1.5 L of gastric contents being suctioned out which appeared to be dark maroon in color. Patient initially had a pulse when CODE BLUE was called and subsequently went in PEA arrest followed by asystole during ACLS and then V. fib for which he was defibrillated with 200 J 1, CPR/ACLS protocol was continued and patient eventually had return of spontaneous circulation after about 15 minutes of CPR/ACLS. Patient was transferred to [facility] and placed on mechanical ventilation. I emergently placed left femoral central line for central vascular access and he was started on Levophed for pressor support. 2 units of O- 1 crossmatch blood were ordered and transfused stat. He also received 1 L of normal saline bolus following return of spontaneous circulation. Stat labs were ordered. His hemoglobin on ABG done post resuscitation was 5.6. I did order Protonix 80 mg IV stat followed by 8 mg per hour IV infusion. Patient remained encephalopathic though was minimally responsive following transfer to the ICU. GI consult was requested and I spoke with Dr. Zamarripa at bedside on his arrival. History was obtained by reviewing records, discussion with family/ GI as well as nursing staff. According to patient's daughter he has not been doing well for the last few months in terms of his breathing and has been using his home oxygen more often. He gets extremely short of breath even with the least exertion. 08/25: Remains encephalopathic/ sedated, [facility]. Transiently off levophed last night however back to 11 mcg/min currently. Hgb up to 9.4 following 4 units PRBCs transfused last night. 08/26: Tmax 99. Some unresponsive on the ventilator. CT abdomen/pelvis less than revealed small bowel obstruction at site of ventral hernia. No further bleeding noted. Gastric output approximately 700 cc. No bowel movement. 08/27: Tmax 99.7. Currently afebrile. Positive BM overnight approximately 1 L according to RN. No blood noted. 100 cc from gastric tube overnight. Hemoglobin corrected a properly. Likely dilutional. Noted fungemia currently issue. Opens eyes to voice. 08/28: Tmax 99.1. No BMs overnight. Minimal gastric tube output. Hemoglobin stable 9.5. Opens eyes to voice. Not following commands. Appears with singultus this morning. 08/29: 20 beat run of wide complex tachycardia overnight. Noted potassium 3.2. This is been replaced. We'll recheck this afternoon. Circuit exchange yesterday. Patient tolerating pressure control ventilation much better than PRVC/AC ventilation is low probably VQ scan. Less FiO2 requirements. No BM past 24 hour. 08/30: Unable to wean ventilator. 08/31: Patient was extubated on 08/30 however became tachypneic with use of accessory muscles of respiration and required reintubation around 6:30 PM last night and was placed back on mechanical ventilation. Currently sedated, orally intubated on mechanical ventilation. Post intubation chest x-ray suggested fluid overload for which she was given Lasix 40 mg IV with good response having made about 2.5 L urine the last 7 hours. 09/01: Remains sedated, orally intubated on mechanical ventilation. Diuresing well with Lasix. Awaiting EGD in a.m. 09/02: Little progress. CXR clearing nicely. Continue diuresis, tolerate hypernatremia. 09/03: Good diuretic response. CRISTHIAN today with no valvar pathology. 09/04: Too weak to tolerate extubation. Will require trach. 09/05: Sedated, arousable, following commands. Tolerated C Pap trial for 9 hours yesterday with pressure support +10. Tolerating tube feeds. 09/06: Extubated yesterday. Chest x-ray reveals likely mucous plugging in left lung garcia. Currently on nonrebreather mask. Planning of insomnia and thick secretions that he is unable to cough up. 09/07 Patient s/p reintubation and bronch 09/06 mucous plugs in left main stem bronchus sedated with Diprivan and Fentanyl. Afebrile. For possible trach tomorrow. 09/08 No acute events overnight. Sedated with Diprivan and Fentanyl. Afebrile. For trach today. 09/09 No acute events overnight. Sedated and intubated. s/p trach yesterday for PEG tube placement today. 09/10 Patient remains sedated and on ventilator via trach. s/p EGD yesterday PEG tube couldn't be placed endoscopically due to hernia. Surgery consulted for J-tube placement. Afebrile. 09/11 No acute events overnight. Sedated with Diprivan, Fentanyl and intubated. Afebrile. Tolerating tube feeds. 09/12 Patient is off Diprivan remains on Fentanyl infusion tolerated CPAP trials for several hrs and TP's x 2 hrs yesterday now on TP with 50% FIO2. Afebrile. 09/13 Patient tolerated TP's all day yesterday placed on PRVC/AC mode overnight. TF held for high residuals. Afebrile. On Fentanyl infusion however he is awake, restless. 09/14 No acute events overnight. Tolerated TP's all day yesterday placed back on ventilator overnight. On Fentanyl infusion. Afebrile. Repeat KUB this morning showed ileus. 09/15 Patient is off fentanyl infusion and is on Precedex drip pulled his NGT overnight. KUB this morning showed improvements in gaseous distention of bowel. 09/16 Yesterday afternoon an NG tube was placed patient was noted to have tube feeds with possible aspiration.NGT placed this am, KUB pending. 09/17: no acute events overnight. tolerated cpap. back on rate overnight. this morning on trach collar. 09/18: prior history of constipation, now with diarrhea. otherwise, awaiting placement. 09/19: diarrhea improving. still awaiting placement. 09/20: still doing well. on trach collar this morning on my evaluation. insurance has not yet approved placement. 09/21: tired out on trach collar yesterday. placed intermittently on cpap. insurance denied LTAC. will work towards [id number]. 09/22: had [id number] today. insurance continues to request permanent surgical feeding access to go to LTAC. My medical opinion is that patient is clinically improving and tolerating DHT without complication, and could safely be fed through DHT for the coming weeks, and I anticipate his dysphagia to resolve as his strength improves. I do not see a clinical indication for permanent surgical gastric access. We also are not a rehab center, and he is not getting medically appropriate care for his level of medical need. He does not require ICU admission, and medically would be more appropriate for LTAC. 09/23: transferred to [facility]. doing well. tachycardic this morning. diltiazem changed from QID to q6hr for more even distribution. insurance company denied admission to LTAC. will continue to pursue this as an option. otherwise, OOB to chair daily. still working with speech. 09/24: did not sleep well overnight. agitated. awake most of the night. I removed stay sutures from trach this morning. 09/25: Received Haldol overnight, resting now. Not agitated. On PRVC/AC. CPAP trails to resume today. Somnolent but wakes up and follows commands 09/26: Continues to have large amount of tracheal secretions. Levaquin restarted sputum culture ordered. Chest x-ray is pending. Did not tolerate CPAP yesterday became tachycardic and hypoxic Subjective 09/27: Tolerated CPAP approximately 6-7 hours became tachypneic afterwards. Currently on full vent support FiO2 50%. Chest x-ray from yesterday shows bilateral pleural effusions/infiltrate right more than left. CT chest ordered cefepime added sputum culture is pending. More delirious at night, now with eyes open following commands EVENTS FROM 09/27/16 evening Patient was turned to left side for thoracentesis, he acutely desaturated to low 70s prior to starting the procedure. Patient was placed back in supine, bag and mask ventilation performed until sats came up to 98%. Patient was again partially turned to left side and thoracentesis was attempted. Even though ultrasound showed fluid, air was withdrawn into the syringe. Procedure was abandoned and patient was put in neutral position. Peak pressures on the vent increased and patient started desaturating to 70s indicating tension pneumothorax. The thoracentesis Angiocath was used for emergency decompression and bag and mask ventilation became easier. An emergency 8 Palestinian pigtail catheter was placed and connected to Pleur-evac. This had significant air leak but patient remained with low oxygen saturation in 70s. Additional 28 Palestinian chest tube was emergently placed with a gradual improvement in saturation to mid 80s. (Chest tube/Pigtail tray was not available immediately at the bedside , and the tech had to run to the [facility] to get the chest tube tray). Patient was placed back on PC/ACmechanical ventilation with low tidal volume. Post chest tube chest x-ray shows good reexpansion of the lung and good positioning of the chest tubes. But the left lung is collapsed with mediastinal shift to the left indicating bronchial obstruction probably from mucous plug. I attempted bronchoscopy with intubating bronchoscope available here at [place]. I was unable to suction out any mucus plugging, or visualize clearly. Patient was transferred to [facility] in [facility]. Dr. Espinoza performed therapeutic bronchoscopy with pediatric bronchoscope, and he was in able to clear a significant amount of secretion with reexpansion of lung. 09/28: Chest x-ray today shows right sided pneumothorax almost resolved. Good reexpansion of the left lung also bibasilar infiltrates seen. Sputum culture growing gram-negative rods. Patient is awake alert on full vent support. Levophed is being weaned currently on 4 mics per minute 09/29: Remains on mechanical ventilation via tracheostomy. Continues to have persistent air leak from right sided pigtail catheter as well as chest tube. Chest x-ray today shows slight increase in size of right pneumothorax. 09/30: Remains on mechanical ventilation via tracheostomy. Very small air leak noted in right sided chest tube. 10/01: Remains on mechanical ventilation via tracheostomy. Daily C Pap and T piece trials. Very small air leak noted. Decreased suction on right chest tube to -20 cm water pressure today. 10/02: Alert, breathing comfortably on vent. Continue weaning trials. Objective Vital Signs Date Time Temp Pulse Resp B/P Pulse Ox O2 Delivery O2 Flow Rate FiO2 10/02/16 10:00 112 10/02/16 08:18 92 40 10/02/16 08:00 98.2 18 122/67 10/01/16 12:18 T-piece 5.00 Intake and Output 10/01/16 10/01/16 10/02/16 08:00 16:00 00:00 Intake Total 920 ml 1127 ml 644 ml Output Total 600 ml 600 ml 700 ml Balance 320 ml 527 ml -56 ml Result Diagram: 09/30/16 0615 10/02/16 0520 Imaging Last Impressions Abdomen X-Ray 09/15/16 0600 Signed Impressions: Service Date/Time: Thursday, September 15, 2016 03:16 - CONCLUSION: 1. Improved gaseous distention of bowel since September 14. Mild distention persists. 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 There is concentric mural thrombus. This aneurysm is not amenable to thrombin injection. Polo Moore Jr., MD Lung Scan-V Nuclear Medicine 08/29/16 0000 Signed Impressions: Service Date/Time: Monday, August 29, 2016 10:20 - CONCLUSION: Low probability for pulmonary embolus. Lex Lopez MD Brain MRI 08/27/16 0000 Signed Impressions: Service Date/Time: August 15:13 - CONCLUSION: No evidence of acute infarct, hemorrhage, mass or edema. No findings to suggest significant anoxic injury. Kit Power MD Renal Ultrasound 08/25/16 0000 Signed Impressions: Service Date/Time: Wednesday, August 24, 2016 21:53 - CONCLUSION: 1. There is no hydronephrosis. Both kidneys demonstrate mild increased echotexture of the parenchyma suggesting medical renal disease. 2. Trace perihepatic free fluid and bilateral pleural effusions. Lex Malik MD Chest CT 08/25/16 0000 Signed Impressions: Service Date/Time: Thursday, August 25, 2016 21:20 - CONCLUSION: 1. Bilateral pneumonia and aspiration would be in the differential. There is dependent consolidation/atelectasis and small effusions of the bases as well. 2. Upper limits of normal to mildly enlarged mediastinal lymph nodes, most likely reactive. 3. Coronary artery calcification. 4. Right rib fractures, including acute fractures laterally of the third, fourth and fifth. There are old, healed fractures anteriorly of the right second and third ribs.. Lex Lopez MD Abdomen/Pelvis CT 08/25/16 0000 Signed Impressions: Service Date/Time: Thursday, August 25, 2016 20:20 - CONCLUSION: 1. Ventral hernia containing small bowel and with associated small bowel obstruction. The defect is broad; I believe the obstruction is probably related to scarring and/or adhesions within the hernia sac. I don't see a mass. 2. Distended stomach despite NG tube present. 3. Severe aortoiliac atherosclerosis. No aneurysm. Lex Lopez MD Objective Remarks GENERAL: Patient is 71 yo lying in bed in bed, on mechanical ventilation via tracheostomy, follows commands SKIN: Warm and dry. HEAD: Normocephalic. EYES: No scleral icterus. No injection or drainage. NECK: trachea midline. No JVD. Trach in place. Copious yellow thick secretions CARDIOVASCULAR: Regular rate and rhythm without murmurs, gallops, or rubs. RESPIRATORY: Breath sounds equal bilaterally, coarse rhonchi bilaterally predominantly at the bases, few coarse crackles. Intermittent air leak in right sided chest tube noted GASTROINTESTINAL: Abdomen soft, non-tender, nondistended. MUSCULOSKELETAL: No cyanosis, +1 edema. NEURO: Awake, follows commands. Grossly nonfocal A/P Assessment and Plan Neuro/Psych: Status post CPR 15 minutes Depression NOS Agitated Delirium --Neurochecks per ICU protocol --Zyprexa 10 mg q8h 09/27 (will reduce dose to total 20 mg gradually) --Melatonin q hs for sleep --prn breakthrough haldol for agitation --d/cd ativan due to paradoxical agitation. Continue Xanax 0.25 mg by mouth every 8 hours when necessary 09/26 --EEG 08/25 revealed mild to moderate encephalopathy. No epileptiform activity. --MRI brain 08/27 revealed no acute findings. Cardiovascular: Septic shock Cardiac arrest status post CPR Elevated troponin History dyslipidemia History of hypertension PVD Possible femoral pseudoaneurysm Off Levophed Monitor HR and BP keep MAP>65mmHg Starting Cardizem 30 minutes by mouth 4 times a day on 09/30 for Tachyarrhythmia Cardiac arrest status post CPR. s/p aggressive fluid resuscitation. minimal troponin elevation following cardiac arrest noted Echo 2D revealed EF 35-40%. Moderate LVH. Mitral valve calcified. Mild TR. Pulmonary: Tension pneumothorax s/p chest tube 09/27 Complete left lung collapse from mucous plugging 09/27 HCAP with GNR Acute respiratory failure secondary to aspiration pneumonia- Reintubated 09/06 s/p Trach on 09/08 End-stage COPD. Oxygen dependent FEV1 28%, FVC 1.6. S/P Aspiration 09/15 Status post emergency chest tube 2 for tension pneumothorax (09/27) following right attempted thoracentesis, 28 Palestinian chest tube to -20cm water pressure. Status post bronchoscopy for mucous plugging of the left main bronchus 09/27 s/p reintubation and bronch 09/06 mucous plugs in left main stem bronchus Continue with vent support keep sat >90%. PRVC. Daily C Pap trials, T piece as tolerated. Bronchodilators, Pulmicort twice a day Needs aggressive pulmonary rehab with LTAC. Continues to be very weak VQ scan low probability 08/29 ICU vent bundle, pulm toilet, trach care F/U CXR GI: Small bowel obstruction - resolved Upper GI bleed plus esophageal rule out aorto esophageal fistula History of Ashley esophagitis History of colonic polyps History of ventral hernia status post repair last by Dr. Roberts Diarrhea Continue tube feeds and advance to goal as tolerated. Continue Reglan 5mg IV Q8, Senna, Lactulose, Colace. having BM From a GI standpoint, use nasogastric access at this time. continue frequent speech eval for swallowing, once clinically improved. s/p EGD 09/09: Deformed pylorus/antrum, nodular mucosa-multiple biopsies taken esophagitis distal esophagus-biopsy unable to place PEG endoscopically due to hiatal hernia. CT abdomen/pelvis revealed possible small bowel obstruction at level of ventral hernia. Severe aortoiliac disease. Dr. Roberts/general surgery evaluated. Very poor surgical candidate this time. EGD 08/25 revealed esophageal nipple. Clots noted within the gastric contents without active bleeding. Protonix for GI prophylaxis, 40 mg IV q12 Hold Bowel regimen for diarrhea. FDC nutrition plan: Feeding per DHT. the patient does not have a contraindication to replacement of DHT if it comes out accidentally. Continue speech/swallow eval and strengthening. I do think he will be strong enough to eat PO in the near future and will not medically require surgical feeding tube. Surgical feeding tube high risk given hernia. risks outweigh benefits. we have a defined long-term enteral feeding plan. Renal/: Acute kidney injury- resolved Hypernatremia History of bladder outlet obstruction Monitor renal function, I/O's, electrolytes replacement per protocol. Free water flushes 300ml Q6 monitor sodium level No hydronephrosis on CT abdomen/pelvis ID: New HCAP Severe sepsis UTI Fungemia Stenotrophomonas HCAP, s/p course of Levaquin 09/10 - 09/16 s/p course of micafungin for fungemia Restarted Levaquin 09/26 secondary to increased secretions send sputum culture, Added cefepime 09/27 ID following Pertinent cultures 09/26: Sputum GNR 09/08 Bronch: S. Maltophilia, 09/06 Bronch- S. Maltophilia, 09/03 - blood culture - no growth 09/02 - blood culture - no growth 08/27 - blood from central line -Ashley Glabrata 08/27 -arterial line blood - pending 08/26 - sputum -Serratia 08/25 - blood cultures 2 -Ashley 08/25 - urine -no growth 08/22 - blood cultures 2 - no growth 08/21 - urine - no growth 08/20 - blood cultures 2 - 1 out of 4 staph epi Endocrine: Chronic prednisone use secondary to COPD SSI for glycemic control as needed. Heme: s/p Acute blood loss anemia History of prostate cancer Status post 4 units PRBCs ands 2 units FFP on 08/24. Given one unit PRBCs 08/26, 1U 09/26 Additional 1 unit 09/28/16 Monitor CBC H/H stable. MSK: PT/OT evaluate and treat. Attempt up to chair daily with PT Access - peripheral IV's, PICC line placed 09/11 Prophylaxis - GI -Protonix 40 q12 - DVT - SCD/ heparin 5000 u Sq Q12- cleared by GI. Resumed heparin 09/30 Overall impression: Slow progress s/p cardiopulmonary arrest. Jerzy Snowden MD Oct 02, 2016 11:33
--- NOTE | 2016-10-02 12:24 | HHI.IDPN ---
Subjective Subjective Remarks Notes reviewed Temps ok Doing weaning trials Not SOB Tolerating TF Bronch C/S Sten mal One CT in place, not much output Antibiotics Levaquin - started 09/26 Lines PICC - 09/11 Past Medical History Reviewed Allergies: Coded Allergies: *MDRO Multi-Drug Resistant Organism (Verified Adverse Reaction, Unknown, ) MRSA (abdominal wound) 2015 per 04/10/2015 H&P MRSA PCR Screen #1 NEGATIVE - 08/21/16 Objective . Vital Signs Date Time Temp Pulse Resp B/P Pulse Ox O2 Delivery O2 Flow Rate FiO2 10/02/16 11:50 94 T-piece 8.00 50 10/02/16 10:00 112 10/02/16 08:18 92 40 10/02/16 08:00 98.2 108 18 122/67 94 10/02/16 08:00 40 10/02/16 08:00 105 10/02/16 06:00 92 10/02/16 04:32 99 40 10/02/16 04:00 98.4 87 19 113/81 99 10/02/16 04:00 86 10/02/16 04:00 40 10/02/16 02:00 86 10/02/16 01:31 100 40 10/02/16 00:00 97.9 86 17 137/66 100 10/02/16 00:00 40 10/02/16 00:00 86 10/01/16 22:00 88 10/01/16 21:14 18 10/01/16 20:40 97 40 10/01/16 20:00 98 10/01/16 20:00 98.4 98 31 138/75 96 10/01/16 20:00 40 10/01/16 18:00 102 10/01/16 16:22 100 40 10/01/16 16:00 84 10/01/16 16:00 40 10/01/16 16:00 98.3 84 17 139/77 100 10/01/16 14:00 94 10/01/16 13:02 94 40 10/01/16 10/01/16 10/02/16 15:00 23:00 07:00 Intake Total 1127 ml 644 ml 1057 ml Output Total 600 ml 700 ml 1275 ml Balance 527 ml -56 ml -218 ml IV Total 362 ml 244 ml 230 ml Tube Feeding 345 ml 340 ml 467 ml Other 420 ml 60 ml 360 ml Output Urine Total 600 ml 700 ml 1275 ml Chest Tube Drainage Total 0 ml 0 ml 0 ml # Bowel Movements 1 0 0 . Laboratory Tests Test 10/02/16 05:20 Sodium Level 142 MEQ/L Potassium Level 3.4 MEQ/L Chloride Level 106 MEQ/L Carbon Dioxide Level 30.1 MEQ/L Anion Gap 6 MEQ/L Blood Urea Nitrogen 10 MG/DL Creatinine 0.39 MG/DL Estimat Glomerular Filtration 219 ML/MIN Rate Random Glucose 131 MG/DL Calcium Level 8.1 MG/DL Protein Corrected Calcium 9.5 MG/DL Total Protein 4.9 GM/DL Imaging Chest X-Ray 10/01/16 0600 Signed Impressions: Service Date/Time: September 03:55 - CONCLUSION: 1. Bilateral pleural-parenchymal densities are slightly more prominent. 2. Small right apical pneumothorax is unchanged. Eduardo Mcconnell MD Chest X-Ray 09/28/16 0600 Signed Impressions: Service Date/Time: Wednesday, September 28, 2016 04:23 - CONCLUSION: 1. Decreasing pneumothorax along the right lung base. 2. Bibasilar densities again seen. Eduardo Mcconnell MD Chest X-Ray 09/27/16 2230 Signed Impressions: Service Date/Time: Tuesday, September 27, 2016 22:36 - CONCLUSION: 1. Mild basilar airspace disease. Small right pneumothorax but increased from earlier exam. Near-complete reexpansion of the left lung. No left pneumothorax. Eleazar Jimenez MD Chest X-Ray 09/27/16 0600 Signed Impressions: Service Date/Time: Tuesday, September 27, 2016 06:24 - CONCLUSION: Hazy density seen in the chest bilaterally likely related to bilateral effusions. Some degree of atelectasis or consolidation at the bases also needs to be considered. Lex Lopez MD Chest X-Ray 09/27/16 0000 Signed Impressions: Service Date/Time: Tuesday, September 27, 2016 18:12 - CONCLUSION: 1. Development of near complete atelectasis of the left lung since exam from earlier today with mediastinal shift from right to left. 2 right chest tubes now present with small right pneumothorax. 2. Tracheostomy and NG tube unchanged. Findings discussed by telephone with Dr. Burnett. Eleazar Jimenez MD Chest CT 09/27/16 0000 Signed Impressions: Service Date/Time: Tuesday, September 27, 2016 09:17 - CONCLUSION: Bilateral large layering pleural effusions with complete atelectasis of the lower lobes. There is been interval placement of a tracheostomy tube which appears appropriately positioned. NG tube appears in appropriate position as does the right-sided central line.. Lola Jean Baptiste MD Chest X-Ray 09/26/16 0600 Signed Impressions: Service Date/Time: Monday, September 26, 2016 06:38 - CONCLUSION: Hazy density throughout the lungs likely related to bilateral effusions. Some degree of atelectasis or consolidation at the lung bases also needs to be considered. Lex Lopez MD Chest X-Ray 09/16/16 0000 Signed Impressions: Service Date/Time: Friday, September 16, 2016 04:58 - CONCLUSION: 1. Tracheostomy and right PICC line present. Bilateral airspace disease, right greater than left similar to September 15. Eleazar Jimenez MD Abdomen X-Ray 09/16/16 0000 Signed Impressions: Service Date/Time: Friday, September 16, 2016 10:54 - CONCLUSION: 1. Nasogastric tube looped in the distal esophagus. Gareth Escalante MD Abdomen X-Ray 09/15/16 0600 Signed Impressions: Service Date/Time: Thursday, September 15, 2016 03:16 - CONCLUSION: 1. Improved gaseous distention of bowel since September 14. Mild distention persists. Eleazar Jimenez MD Chest X-Ray 09/15/16 0000 Signed Impressions: Service Date/Time: Thursday, September 15, 2016 13:39 - CONCLUSION: Decrease in medial left lung base atelectasis. No change in hazy right lung base opacity. Donald Valerio MD Abdomen X-Ray 09/14/16 0600 Signed Impressions: Service Date/Time: Wednesday, September 14, 2016 03:56 - CONCLUSION: Gaseous distention of multiple bowel loops, likely ileus. Eduardo Mcconnell MD Chest X-Ray 09/08/16 1325 Signed Impressions: Service Date/Time: Thursday, September 08, 2016 13:37 - CONCLUSION: 1. Interval improvement of the interstitial infiltrates with minimal residual right basilar infiltrate noted. 2. Tracheostomy tube in good position approximately 5 cm above the michele. Lui iKm MD Chest X-Ray 09/06/16 0000 Signed Impressions: Service Date/Time: Tuesday, September 06, 2016 13:49 - CONCLUSION: 1. Interval intubation and placement of nasogastric tube. 2. Volume loss again noted left hemithorax with mediastinal shift. There is coarse infiltrate remaining in the left lung. Ian Horton MD Chest X-Ray 09/06/16 0000 Signed Impressions: Service Date/Time: Tuesday, September 06, 2016 08:50 - CONCLUSION: 1. Increasing density throughout the left hemithorax with volume loss suggesting mucus plugging. Eduardo Mcconnell MD Chest X-Ray 09/05/16 0500 Signed Impressions: Service Date/Time: Monday, September 05, 2016 03:49 - CONCLUSION: 1. Basilar airspace disease similar to prior exam. Support apparatus unchanged. Eleazar Jimenez MD Chest X-Ray 09/05/16 0500 Signed Impressions: Service Date/Time: Monday, September 05, 2016 03:49 - CONCLUSION: 1. Basilar airspace disease similar to prior exam. Support apparatus unchanged. Eleazar Jimenez MD Chest X-Ray 09/01/16 0600 Signed Impressions: Service Date/Time: Thursday, September 01, 2016 03:19 - CONCLUSION: No significant interval change in bilateral pulmonary parenchymal opacity and small bilateral pleural effusions. 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 There is concentric mural thrombus. This aneurysm is not amenable to thrombin injection. Polo Moore Jr., MD Chest X-Ray 08/27/16 0600 Signed Impressions: Service Date/Time: August 02:27 - CONCLUSION: 1. Patchy bilateral airspace disease with improving aeration/decreasing effusions in the bases bilaterally. 2. Stable position of life support tubes. Con Valdes MD Chest X-Ray 08/26/16 0754 Signed Impressions: Service Date/Time: Friday, August 26, 2016 08:14 - CONCLUSION: Left IJ central line distal tip in the SVC. No pneumothorax is visualized. There is a stable appearance the lungs with bilateral airspace consolidation. Lex Malik MD Chest X-Ray 08/26/16 0600 Signed Impressions: Service Date/Time: Friday, August 26, 2016 04:01 - CONCLUSION: 1. Worsening bibasilar effusions/atelectasis with diffuse interstitial edema, all characteristic of CHF. 2. Endotracheal tube remains appropriately positioned above the michele Con Valdes MD Chest X-Ray 08/26/16 0754 Signed Impressions: Service Date/Time: Friday, August 26, 2016 08:14 - CONCLUSION: Left IJ central line distal tip in the SVC. No pneumothorax is visualized. There is a stable appearance the lungs with bilateral airspace consolidation. Lex Malik MD Renal Ultrasound 08/25/16 0000 Signed Impressions: Service Date/Time: Wednesday, August 24, 2016 21:53 - CONCLUSION: 1. There is no hydronephrosis. Both kidneys demonstrate mild increased echotexture of the parenchyma suggesting medical renal disease. 2. Trace perihepatic free fluid and bilateral pleural effusions. Lex Malik MD Chest CT 08/25/16 0000 Signed Impressions: Service Date/Time: Thursday, August 25, 2016 21:20 - CONCLUSION: 1. Bilateral pneumonia and aspiration would be in the differential. There is dependent consolidation/atelectasis and small effusions of the bases as well. 2. Upper limits of normal to mildly enlarged mediastinal lymph nodes, most likely reactive. 3. Coronary artery calcification. 4. Right rib fractures, including acute fractures laterally of the third, fourth and fifth. There are old, healed fractures anteriorly of the right second and third ribs.. Lex Lopez MD Abdomen/Pelvis CT 08/25/16 0000 Signed Impressions: Service Date/Time: Thursday, August 25, 2016 20:20 - CONCLUSION: 1. Ventral hernia containing small bowel and with associated small bowel obstruction. The defect is broad; I believe the obstruction is probably related to scarring and/or adhesions within the hernia sac. I don't see a mass. 2. Distended stomach despite NG tube present. 3. Severe aortoiliac atherosclerosis. No aneurysm. Lex Lopez MD Abdomen X-Ray 08/24/16 0000 Signed Impressions: Service Date/Time: Wednesday, August 24, 2016 17:19 - CONCLUSION: 1. Small bowel dilatation which reflect ileus or obstruction. Followup examination is recommended if clinically indicated. Gareth Escalante MD Physical Exam GENERAL: Awake, and alert, following, NAD. On the vent SKIN: Warm and dry. No generalized rash HEENT: [place] conjunctiva, no scleral icterus. Dry oral mucosa. Has NGT in place NECK: Trach site ok. Supple. CARDIOVASCULAR: Regular rate and rhythm without murmurs, gallops, or rubs. RESPIRATORY: Scattered rhonchi GASTROINTESTINAL: Abdomen soft, not tender, not distended. Has a large midline hernia reducible, mildly distended. Has midline scar. MUSCULOSKELETAL: Extremities without clubbing, cyanosis. No edema. LINE: PICC no evidence of infection. Assessment & Plan Remarks IMPRESSION New problem, respiratory, plugging, possible new VAP, resolved - S/P bronch 09/27 - BP better - S/P course of Abx Sepsis present on admission and then sepsis again. Better Central line associated blood stream infection (CLABSI) related fungemia ( likely groin line) now discontinued. Arterial line discontinued as well. 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
[2016-10-02] MEDS: POTASSIUM CHLOR 40 MEQ PREMIX 100 ML IV PRN (16:53)
[2016-10-02] MEDS: MELATONIN 5 MG TAB PO SCH (21:05)
[2016-10-03] VITALS (17 sets, daily range): BP systolic 125–154; BP diastolic 60–89; PULSE 82–118; RESP 15–36; TEMP 97.8–98.2; O2SAT 95–100
[2016-10-03] MEDS: FREE WATER G-TUBE SCH ×4 (01:30→17:40)
[2016-10-03] MEDS: OLANZapine ODT 5 MG TAB PO SCH ×2 (01:31→09:00)
[2016-10-03] MEDS: METOCLOPRAMIDE HCL 10 MG/2 ML VIAL IV PUSH SCH ×3 (01:31→15:49)
[2016-10-03] MEDS: HYDROmorphone HCL PF 1 MG/ML VIAL IV PRN ×4 (02:59→21:56)
[2016-10-03] MEDS: INSULIN NovoLIN REGULAR SUPPLEMENTAL SCALE SQ SCH ×4 (06:00→17:40)
[2016-10-03 06:43] LABS: HEMATOCRIT 27.7 % (39.0-51.0); MEAN CELL VOLUME 90.4 FL (80.0-100.0); MEAN CORPUSCULAR HEMOGLOBIN 30.9 PG (27.0-34.0); MEAN CORPUSCULAR HGB CONC 34.2 % (32.0-36.0); PLATELET COUNT 244 TH/MM3 (150-450); RED BLOOD COUNT 3.07 MIL/MM3 (4.50-5.90); RED CELL DISTRIBUTION WIDTH 16.6 % (11.6-17.2); REVIEW FLAG FINAL; WHITE BLOOD COUNT 7.2 TH/MM3 (4.0-11.0)
[2016-10-03] MEDS: NYSTATIN 100,000 U/GM PWD 15 GM BTL TOPICAL SCH ×3 (06:43→21:56)
[2016-10-03] MEDS ORDERED: SODIUM HYPOCHLORITE 0.25% 500 ML BTL TOPICAL PRN (07:15)
[2016-10-03] MEDS: RESP: BUDESONIDE 0.5 MG/2 ML NEB NEB SCH ×2 (08:04→19:40)
[2016-10-03] MEDS: SODIUM CHLORIDE 0.9% FLUSH 10 ML FLUSH IV FLUSH SCH (08:59)
[2016-10-03] MEDS: HEPARIN SODIUM - SQ 10,000 UNITS/ML VIAL SQ SCH ×2 (08:59→21:56)
[2016-10-03] MEDS: TAMSULOSIN HCL 0.4 MG CAP PO SCH (09:00)
[2016-10-03] MEDS: DILTIAZEM HCL 30 MG TAB PO SCH ×4 (09:00→21:55)
[2016-10-03] MEDS: MULTIVITAMINS/MINERALS THERAPEUTIC TAB PO SCH (09:00)
[2016-10-03] MEDS: COLLAGENASE OINT 30 GM TUBE TOP SCH (09:00)
[2016-10-03] MEDS: PANTOPRAZOLE SODIUM 40 MG VIAL IV PUSH SCH ×2 (09:00→21:55)
[2016-10-03] MEDS: DOXAZOSIN MESYLATE 2 MG TAB PO SCH (09:00)
[2016-10-03] MEDS: LACTULOSE SYRUP 20 GM/30 ML CUP PO SCH (09:00)
[2016-10-03] MEDS: LEVOFLOXACIN 750 MG TAB PO SCH (09:00)
[2016-10-03] MEDS: SENNOSIDES SYRUP 8.8 MG/5 ML CUP PO SCH (09:00)
[2016-10-03] MEDS: DOCUSATE SODIUM 100 MG/10 ML UDC PO SCH ×2 (09:01→21:56)
[2016-10-03] MEDS: CHLORHEXIDINE GLUCONATE 0.12% 15 ML CUP SCH (09:01)
[2016-10-03] MEDS: SODIUM CHLORIDE 0.9% FLUSH 5 ML FLUSH IVF SCH (09:02)
[2016-10-03] MEDS: HALOPERIDOL LACTATE 5 MG/ML AMP IV PRN ×2 (10:46→15:50)
--- NOTE | 2016-10-03 12:24 | HHI.CCPN ---
Subjective Remarks/Hospital Course 08/24: 71 Year-old male with a medical history significant for COPD on home oxygen who was recently admitted with suspected sepsis/H And was initiated on IV antibiotics and steroids. He had recently been evaluated by GI and underwent EGD on 08/10/2016 and was found to have moderate esophagitis, mild gastritis with pathology subsequently showing Ashley esophagitis as well as colonoscopy on 08/11/2016 with polypectomy and ablation of polyp in ascending colon with hot snare. Patient has been dealing with constipation since his admission. Today when he was trying to have a bowel movement he suddenly became less responsive and then had a large emesis which resulted in aspiration and hemodynamic collapse. Patient initially had large volume emesis with dark maroon blood. CODE BLUE cardiac arrest code was activated. On my arrival patient was in bed CPR had been initiated. Significant gastric contents was still being suctioned out of his oral cavity. ACLS protocol was continued. Patient was intubated following vigorous suctioning of gastric contents from oral cavity as well as with placement of NG tube which is hooked up to suction and about 1.5 L of gastric contents being suctioned out which appeared to be dark maroon in color. Patient initially had a pulse when CODE BLUE was called and subsequently went in PEA arrest followed by asystole during ACLS and then V. fib for which he was defibrillated with 200 J 1, CPR/ACLS protocol was continued and patient eventually had return of spontaneous circulation after about 15 minutes of CPR/ACLS. Patient was transferred to [facility] and placed on mechanical ventilation. I emergently placed left femoral central line for central vascular access and he was started on Levophed for pressor support. 2 units of O- 1 crossmatch blood were ordered and transfused stat. He also received 1 L of normal saline bolus following return of spontaneous circulation. Stat labs were ordered. His hemoglobin on ABG done post resuscitation was 5.6. I did order Protonix 80 mg IV stat followed by 8 mg per hour IV infusion. Patient remained encephalopathic though was minimally responsive following transfer to the ICU. GI consult was requested and I spoke with Dr. Zamarripa at bedside on his arrival. History was obtained by reviewing records, discussion with family/ GI as well as nursing staff. According to patient's daughter he has not been doing well for the last few months in terms of his breathing and has been using his home oxygen more often. He gets extremely short of breath even with the least exertion. 08/25: Remains encephalopathic/ sedated, orally [facility]. Transiently off levophed last night however back to 11 mcg/min currently. Hgb up to 9.4 following 4 units PRBCs transfused last night. 08/26: Tmax 99. Some unresponsive on the ventilator. CT abdomen/pelvis less than revealed small bowel obstruction at site of ventral hernia. No further bleeding noted. Gastric output approximately 700 cc. No bowel movement. 08/27: Tmax 99.7. Currently afebrile. Positive BM overnight approximately 1 L according to RN. No blood noted. 100 cc from gastric tube overnight. Hemoglobin corrected a properly. Likely dilutional. Noted fungemia currently issue. Opens eyes to voice. 08/28: Tmax 99.1. No BMs overnight. Minimal gastric tube output. Hemoglobin stable 9.5. Opens eyes to voice. Not following commands. Appears with singultus this morning. 08/29: 20 beat run of wide complex tachycardia overnight. Noted potassium 3.2. This is been replaced. We'll recheck this afternoon. Circuit exchange yesterday. Patient tolerating pressure control ventilation much better than PRVC/AC ventilation is low probably VQ scan. Less FiO2 requirements. No BM past 24 hour. 08/30: Unable to wean ventilator. 08/31: Patient was extubated on 08/30 however became tachypneic with use of accessory muscles of respiration and required reintubation around 6:30 PM last night and was placed back on mechanical ventilation. Currently sedated, orally intubated on mechanical ventilation. Post intubation chest x-ray suggested fluid overload for which she was given Lasix 40 mg IV with good response having made about 2.5 L urine the last 7 hours. 09/01: Remains sedated, orally intubated on mechanical ventilation. Diuresing well with Lasix. Awaiting EGD in a.m. 09/02: Little progress. CXR clearing nicely. Continue diuresis, tolerate hypernatremia. 09/03: Good diuretic response. CRISTHIAN today with no valvar pathology. 09/04: Too weak to tolerate extubation. Will require trach. 09/05: Sedated, arousable, following commands. Tolerated C Pap trial for 9 hours yesterday with pressure support +10. Tolerating tube feeds. 09/06: Extubated yesterday. Chest x-ray reveals likely mucous plugging in left lung garcia. Currently on nonrebreather mask. Planning of insomnia and thick secretions that he is unable to cough up. 09/07 Patient s/p reintubation and bronch 09/06 mucous plugs in left main stem bronchus sedated with Diprivan and Fentanyl. Afebrile. For possible trach tomorrow. 09/08 No acute events overnight. Sedated with Diprivan and Fentanyl. Afebrile. For trach today. 09/09 No acute events overnight. Sedated and intubated. s/p trach yesterday for PEG tube placement today. 09/10 Patient remains sedated and on ventilator via trach. s/p EGD yesterday PEG tube couldn't be placed endoscopically due to hernia. Surgery consulted for J-tube placement. Afebrile. 09/11 No acute events overnight. Sedated with Diprivan, Fentanyl and intubated. Afebrile. Tolerating tube feeds. 09/12 Patient is off Diprivan remains on Fentanyl infusion tolerated CPAP trials for several hrs and TP's x 2 hrs yesterday now on TP with 50% FIO2. Afebrile. 09/13 Patient tolerated TP's all day yesterday placed on PRVC/AC mode overnight. TF held for high residuals. Afebrile. On Fentanyl infusion however he is awake, restless. 09/14 No acute events overnight. Tolerated TP's all day yesterday placed back on ventilator overnight. On Fentanyl infusion. Afebrile. Repeat KUB this morning showed ileus. 09/15 Patient is off fentanyl infusion and is on Precedex drip pulled his NGT overnight. KUB this morning showed improvements in gaseous distention of bowel. 09/16 Yesterday afternoon an NG tube was placed patient was noted to have tube feeds with possible aspiration.NGT placed this am, KUB pending. 09/17: no acute events overnight. tolerated cpap. back on rate overnight. this morning on trach collar. 09/18: prior history of constipation, now with diarrhea. otherwise, awaiting placement. 09/19: diarrhea improving. still awaiting placement. 09/20: still doing well. on trach collar this morning on my evaluation. insurance has not yet approved placement. 09/21: tired out on trach collar yesterday. placed intermittently on cpap. insurance denied LTAC. will work towards [id number]. 09/22: had [id number] today. insurance continues to request permanent surgical feeding access to go to LTAC. My medical opinion is that patient is clinically improving and tolerating DHT without complication, and could safely be fed through DHT for the coming weeks, and I anticipate his dysphagia to resolve as his strength improves. I do not see a clinical indication for permanent surgical gastric access. We also are not a rehab center, and he is not getting medically appropriate care for his level of medical need. He does not require ICU admission, and medically would be more appropriate for LTAC. 09/23: transferred to [facility]. doing well. tachycardic this morning. diltiazem changed from QID to q6hr for more even distribution. insurance company denied admission to LTAC. will continue to pursue this as an option. otherwise, OOB to chair daily. still working with speech. 09/24: did not sleep well overnight. agitated. awake most of the night. I removed stay sutures from trach this morning. 09/25: Received Haldol overnight, resting now. Not agitated. On PRVC/AC. CPAP trails to resume today. Somnolent but wakes up and follows commands 09/26: Continues to have large amount of tracheal secretions. Levaquin restarted sputum culture ordered. Chest x-ray is pending. Did not tolerate CPAP yesterday became tachycardic and hypoxic Subjective 09/27: Tolerated CPAP approximately 6-7 hours became tachypneic afterwards. Currently on full vent support FiO2 50%. Chest x-ray from yesterday shows bilateral pleural effusions/infiltrate right more than left. CT chest ordered cefepime added sputum culture is pending. More delirious at night, now with eyes open following commands EVENTS FROM 09/27/16 evening Patient was turned to left side for thoracentesis, he acutely desaturated to low 70s prior to starting the procedure. Patient was placed back in supine, bag and mask ventilation performed until sats came up to 98%. Patient was again partially turned to left side and thoracentesis was attempted. Even though ultrasound showed fluid, air was withdrawn into the syringe. Procedure was abandoned and patient was put in neutral position. Peak pressures on the vent increased and patient started desaturating to 70s indicating tension pneumothorax. The thoracentesis Angiocath was used for emergency decompression and bag and mask ventilation became easier. An emergency 8 Kosovan pigtail catheter was placed and connected to Pleur-evac. This had significant air leak but patient remained with low oxygen saturation in 70s. Additional 28 Kosovan chest tube was emergently placed with a gradual improvement in saturation to mid 80s. (Chest tube/Pigtail tray was not available immediately at the bedside , and the tech had to run to the [facility] to get the chest tube tray). Patient was placed back on PC/ACmechanical ventilation with low tidal volume. Post chest tube chest x-ray shows good reexpansion of the lung and good positioning of the chest tubes. But the left lung is collapsed with mediastinal shift to the left indicating bronchial obstruction probably from mucous plug. I attempted bronchoscopy with intubating bronchoscope available here at [place]. I was unable to suction out any mucus plugging, or visualize clearly. Patient was transferred to [facility] in [facility]. Dr. Espinoza performed therapeutic bronchoscopy with pediatric bronchoscope, and he was in able to clear a significant amount of secretion with reexpansion of lung. 09/28: Chest x-ray today shows right sided pneumothorax almost resolved. Good reexpansion of the left lung also bibasilar infiltrates seen. Sputum culture growing gram-negative rods. Patient is awake alert on full vent support. Levophed is being weaned currently on 4 mics per minute 09/29: Remains on mechanical ventilation via tracheostomy. Continues to have persistent air leak from right sided pigtail catheter as well as chest tube. Chest x-ray today shows slight increase in size of right pneumothorax. 09/30: Remains on mechanical ventilation via tracheostomy. Very small air leak noted in right sided chest tube. 10/01: Remains on mechanical ventilation via tracheostomy. Daily C Pap and T piece trials. Very small air leak noted. Decreased suction on right chest tube to -20 cm water pressure today. 10/02: Alert, breathing comfortably on vent. Continue weaning trials. 10/03: Continue daily SBTs and Dakin's dressing changes. Objective Vital Signs Date Time Temp Pulse Resp B/P Pulse Ox O2 Delivery O2 Flow Rate FiO2 10/03/16 10:24 95 T-piece 40 10/03/16 09:29 20 10/03/16 08:00 108 10/03/16 04:00 98.2 138/60 10/02/16 11:50 8.00 Intake and Output 10/02/16 10/02/16 10/03/16 08:00 16:00 00:00 Intake Total 1057 ml 754 ml 737 ml Output Total 1275 ml 360 ml 875 ml Balance -218 ml 394 ml -138 ml Result Diagram: 10/03/16 0625 10/02/16 0520 Imaging Last Impressions Abdomen X-Ray 09/15/16 0600 Signed Impressions: Service Date/Time: Thursday, September 15, 2016 03:16 - CONCLUSION: 1. Improved gaseous distention of bowel since September 14. Mild distention persists. 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 There is concentric mural thrombus. This aneurysm is not amenable to thrombin injection. Polo Moore Jr., MD Lung Scan- Nuclear Medicine 08/29/16 0000 Signed Impressions: Service Date/Time: Monday, August 29, 2016 10:20 - CONCLUSION: Low probability for pulmonary embolus. Lex Lopez MD Brain MRI 08/27/16 0000 Signed Impressions: Service Date/Time: August 15:13 - CONCLUSION: No evidence of acute infarct, hemorrhage, mass or edema. No findings to suggest significant anoxic injury. Kit Power MD Renal Ultrasound 08/25/16 0000 Signed Impressions: Service Date/Time: Wednesday, August 24, 2016 21:53 - CONCLUSION: 1. There is no hydronephrosis. Both kidneys demonstrate mild increased echotexture of the parenchyma suggesting medical renal disease. 2. Trace perihepatic free fluid and bilateral pleural effusions. Lex Malik MD Chest CT 08/25/16 0000 Signed Impressions: Service Date/Time: Thursday, August 25, 2016 21:20 - CONCLUSION: 1. Bilateral pneumonia and aspiration would be in the differential. There is dependent consolidation/atelectasis and small effusions of the bases as well. 2. Upper limits of normal to mildly enlarged mediastinal lymph nodes, most likely reactive. 3. Coronary artery calcification. 4. Right rib fractures, including acute fractures laterally of the third, fourth and fifth. There are old, healed fractures anteriorly of the right second and third ribs.. Lex Lopez MD Abdomen/Pelvis CT 08/25/16 0000 Signed Impressions: Service Date/Time: Thursday, August 25, 2016 20:20 - CONCLUSION: 1. Ventral hernia containing small bowel and with associated small bowel obstruction. The defect is broad; I believe the obstruction is probably related to scarring and/or adhesions within the hernia sac. I don't see a mass. 2. Distended stomach despite NG tube present. 3. Severe aortoiliac atherosclerosis. No aneurysm. Lex Lopez MD Objective Remarks GENERAL: Patient is 71 yo lying in bed in bed, on mechanical ventilation via tracheostomy, follows commands SKIN: Warm and dry. HEAD: Normocephalic. EYES: No scleral icterus. No injection or drainage. NECK: trachea midline. No JVD. Trach in place. Copious yellow thick secretions CARDIOVASCULAR: Regular rate and rhythm without murmurs, gallops, or rubs. RESPIRATORY: Breath sounds equal bilaterally, coarse rhonchi bilaterally predominantly at the bases, few coarse crackles. Intermittent air leak in right sided chest tube noted GASTROINTESTINAL: Abdomen soft, non-tender, nondistended. MUSCULOSKELETAL: No cyanosis, +1 edema. NEURO: Awake, follows commands. Grossly nonfocal A/P Assessment and Plan Neuro/Psych: Status post CPR 15 minutes Depression NOS Agitated Delirium --Neurochecks per ICU protocol --Zyprexa 10 mg q8h 09/27 (will reduce dose to total 20 mg gradually) --Melatonin q hs for sleep --prn breakthrough haldol for agitation --d/cd ativan due to paradoxical agitation. Continue Xanax 0.25 mg by mouth every 8 hours when necessary 09/26 --EEG 08/25 revealed mild to moderate encephalopathy. No epileptiform activity. --MRI brain 08/27 revealed no acute findings. --Calm 10/03 Cardiovascular: Septic shock Cardiac arrest status post CPR Elevated troponin History dyslipidemia History of hypertension PVD Possible femoral pseudoaneurysm Off Levophed Monitor HR and BP keep MAP>65mmHg Starting Cardizem 30 minutes by mouth 4 times a day on 09/30 for Tachyarrhythmia Cardiac arrest status post CPR. s/p aggressive fluid resuscitation. minimal troponin elevation following cardiac arrest noted Echo 2D revealed EF 35-40%. Moderate LVH. Mitral valve calcified. Mild TR. Pulmonary: Tension pneumothorax s/p chest tube 09/27 Complete left lung collapse from mucous plugging 09/27 HCAP with GNR Acute respiratory failure secondary to aspiration pneumonia- Reintubated 09/06 s/p Trach on 09/08 End-stage COPD. Oxygen dependent FEV1 28%, FVC 1.6. S/P Aspiration 09/15 Status post emergency chest tube 2 for tension pneumothorax (09/27) following right attempted thoracentesis, 28 Kosovan chest tube to -20cm water pressure. Status post bronchoscopy for mucous plugging of the left main bronchus 09/27 s/p reintubation and bronch 09/06 mucous plugs in left main stem bronchus Continue with vent support keep sat >90%. PRVC. Daily C Pap trials, T piece as tolerated. Bronchodilators, Pulmicort twice a day Needs aggressive pulmonary rehab with LTAC. Continues to be very weak VQ scan low probability 08/29 ICU vent bundle, pulm toilet, trach care GI: Small bowel obstruction - resolved Upper GI bleed plus esophageal rule out aorto esophageal fistula History of Ashley esophagitis History of colonic polyps History of ventral hernia status post repair last by Dr. Roberts Diarrhea Continue tube feeds and advance to goal as tolerated. Continue Reglan 5mg IV Q8, Senna, Lactulose, Colace. having BM From a GI standpoint, use nasogastric access at this time. continue frequent speech eval for swallowing, once clinically improved. s/p EGD 09/09: Deformed pylorus/antrum, nodular mucosa-multiple biopsies taken esophagitis distal esophagus-biopsy unable to place PEG endoscopically due to hiatal hernia. CT abdomen/pelvis revealed possible small bowel obstruction at level of ventral hernia. Severe aortoiliac disease. Dr. Roberts/general surgery evaluated. Very poor surgical candidate this time. EGD 08/25 revealed esophageal nipple. Clots noted within the gastric contents without active bleeding. Protonix for GI prophylaxis, 40 mg IV q12 Hold Bowel regimen for diarrhea. intermediate nutrition plan: Feeding per DHT. the patient does not have a contraindication to replacement of DHT if it comes out accidentally. Continue speech/swallow eval and strengthening. I do think he will be strong enough to eat PO in the near future and will not medically require surgical feeding tube. Surgical feeding tube high risk given hernia. risks outweigh benefits. we have a defined long-term enteral feeding plan. Renal/: Acute kidney injury- resolved Hypernatremia History of bladder outlet obstruction Monitor renal function, I/O's, electrolytes replacement per protocol. Free water flushes 300ml Q6 monitor sodium level No hydronephrosis on CT abdomen/pelvis ID: New HCAP Severe sepsis UTI Fungemia Stenotrophomonas HCAP, s/p course of Levaquin 09/10 - 09/16 s/p course of micafungin for fungemia Restarted Levaquin 09/26 secondary to increased secretions send sputum culture, Added cefepime 09/27 ID following Pertinent cultures 09/26: Sputum Stenotrophomonas 09/08 Bronch: S. Maltophilia, 09/06 Bronch- S. Maltophilia, 09/03 - blood culture - no growth 09/02 - blood culture - no growth 08/27 - blood from central line -Ashley Glabrata 08/27 -arterial line blood - pending 08/26 - sputum -Serratia 08/25 - blood cultures 2 -Ashley 08/25 - urine -no growth 08/22 - blood cultures 2 - no growth 08/21 - urine - no growth 08/20 - blood cultures 2 - 1 out of 4 staph epi Endocrine: Chronic prednisone use secondary to COPD SSI for glycemic control as needed. Heme: s/p Acute blood loss anemia History of prostate cancer Status post 4 units PRBCs ands 2 units FFP on 08/24. Given one unit PRBCs 08/26, 1U 09/26 Additional 1 unit 09/28/16 Monitor CBC H/H stable. MSK: PT/OT evaluate and treat. Attempt up to chair daily with PT Access - peripheral IV's, PICC line placed 09/11 Prophylaxis - GI -Protonix 40 q12 - DVT - SCD/ heparin 5000 u Sq Q12- cleared by GI. Resumed heparin 09/30 Overall impression: Slow progress s/p cardiopulmonary arrest. Jerzy Snowden MD Oct 03, 2016 12:24
[2016-10-03] MEDS: ALPRAZolam 0.25 MG TAB PO PRN (12:41)
[2016-10-03] MEDS ORDERED: SODIUM HYPOCHLORITE 0.125% 500 ML BTL TOPICAL PRN (15:30)
[2016-10-03] MEDS: OLANZapine ODT 10 MG TAB PO SCH (17:40)
[2016-10-03] MEDS: RESP: ALBUTEROL 2.5 MG/IPRATROPIUM 0.5 MG NEB (PRN) INH (19:40)
[2016-10-03] MEDS: CHLORHEXIDINE GLUCONATE 0.12% 30 ML CUP SCH (20:00)
[2016-10-03] MEDS: MELATONIN 5 MG TAB PO SCH (21:55)
[2016-10-04] VITALS (19 sets, daily range): BP systolic 113–142; BP diastolic 68–77; PULSE 83–110; RESP 13–20; TEMP 97.6–98.7; O2SAT 94–100
[2016-10-04] MEDS: FREE WATER G-TUBE SCH ×4 (00:29→18:36)
[2016-10-04] MEDS: METOCLOPRAMIDE HCL 10 MG/2 ML VIAL IV PUSH SCH ×3 (00:29→15:35)
[2016-10-04] MEDS: OLANZapine ODT 10 MG TAB PO SCH ×3 (01:28→15:35)
[2016-10-04] MEDS: oxyCODONE HCL ORAL CONC 20 MG/ML SYRINGE PO PRN ×2 (01:29→06:54)
[2016-10-04] MEDS: ALPRAZolam 0.25 MG TAB PO PRN (05:21)
[2016-10-04] MEDS: INSULIN NovoLIN REGULAR SUPPLEMENTAL SCALE SQ SCH ×4 (06:00→18:00)
[2016-10-04] MEDS: HYDROmorphone HCL PF 1 MG/ML VIAL IV PRN ×2 (06:02→17:32)
[2016-10-04] MEDS: NYSTATIN 100,000 U/GM PWD 15 GM BTL TOPICAL SCH ×3 (06:03→22:00)
[2016-10-04] MEDS: RESP: BUDESONIDE 0.5 MG/2 ML NEB NEB SCH ×2 (07:43→20:57)
[2016-10-04] MEDS: CHLORHEXIDINE GLUCONATE 0.12% 30 ML CUP SCH ×2 (08:49→20:00)
[2016-10-04] MEDS: HEPARIN SODIUM - SQ 10,000 UNITS/ML VIAL SQ SCH ×2 (08:50→20:46)
[2016-10-04] MEDS: PANTOPRAZOLE SODIUM 40 MG VIAL IV PUSH SCH ×2 (08:50→20:45)
[2016-10-04] MEDS: DOXAZOSIN MESYLATE 2 MG TAB PO SCH (08:50)
[2016-10-04] MEDS: TAMSULOSIN HCL 0.4 MG CAP PO SCH (08:51)
[2016-10-04] MEDS: LACTULOSE SYRUP 20 GM/30 ML CUP PO SCH (08:51)
[2016-10-04] MEDS: DOCUSATE SODIUM 100 MG/10 ML UDC PO SCH ×2 (08:51→20:45)
[2016-10-04] MEDS: SENNOSIDES SYRUP 8.8 MG/5 ML CUP PO SCH (08:51)
[2016-10-04] MEDS: DILTIAZEM HCL 30 MG TAB PO SCH ×4 (08:52→20:45)
[2016-10-04] MEDS: SODIUM CHLORIDE 0.9% FLUSH 10 ML FLUSH IV FLUSH SCH (08:52)
[2016-10-04] MEDS: LEVOFLOXACIN 750 MG TAB PO SCH (08:52)
[2016-10-04] MEDS: SODIUM CHLORIDE 0.9% FLUSH 5 ML FLUSH IVF SCH (08:52)
[2016-10-04] MEDS: MULTIVITAMINS/MINERALS THERAPEUTIC TAB PO SCH (08:52)
[2016-10-04] MEDS: COLLAGENASE OINT 30 GM TUBE TOP SCH (08:53)
--- NOTE | 2016-10-04 11:18 | HHI.CCPN ---
Subjective Remarks/Hospital Course 08/24: 71 Year-old male with a medical history significant for COPD on home oxygen who was recently admitted with suspected sepsis/H And was initiated on IV antibiotics and steroids. He had recently been evaluated by GI and underwent EGD on 08/10/2016 and was found to have moderate esophagitis, mild gastritis with pathology subsequently showing Ashley esophagitis as well as colonoscopy on 08/11/2016 with polypectomy and ablation of polyp in ascending colon with hot snare. Patient has been dealing with constipation since his admission. Today when he was trying to have a bowel movement he suddenly became less responsive and then had a large emesis which resulted in aspiration and hemodynamic collapse. Patient initially had large volume emesis with dark maroon blood. CODE BLUE cardiac arrest code was activated. On my arrival patient was in bed CPR had been initiated. Significant gastric contents was still being suctioned out of his oral cavity. ACLS protocol was continued. Patient was intubated following vigorous suctioning of gastric contents from oral cavity as well as with placement of NG tube which is hooked up to suction and about 1.5 L of gastric contents being suctioned out which appeared to be dark maroon in color. Patient initially had a pulse when CODE BLUE was called and subsequently went in PEA arrest followed by asystole during ACLS and then V. fib for which he was defibrillated with 200 J 1, CPR/ACLS protocol was continued and patient eventually had return of spontaneous circulation after about 15 minutes of CPR/ACLS. Patient was transferred to [facility] and placed on mechanical ventilation. I emergently placed left femoral central line for central vascular access and he was started on Levophed for pressor support. 2 units of O- 1 crossmatch blood were ordered and transfused stat. He also received 1 L of normal saline bolus following return of spontaneous circulation. Stat labs were ordered. His hemoglobin on ABG done post resuscitation was 5.6. I did order Protonix 80 mg IV stat followed by 8 mg per hour IV infusion. Patient remained encephalopathic though was minimally responsive following transfer to the ICU. GI consult was requested and I spoke with Dr. Zamarripa at bedside on his arrival. History was obtained by reviewing records, discussion with family/ GI as well as nursing staff. According to patient's daughter he has not been doing well for the last few months in terms of his breathing and has been using his home oxygen more often. He gets extremely short of breath even with the least exertion. 08/25: Remains encephalopathic/ sedated, [facility]. Transiently off levophed last night however back to 11 mcg/min currently. Hgb up to 9.4 following 4 units PRBCs transfused last night. 08/26: Tmax 99. Some unresponsive on the ventilator. CT abdomen/pelvis less than revealed small bowel obstruction at site of ventral hernia. No further bleeding noted. Gastric output approximately 700 cc. No bowel movement. 08/27: Tmax 99.7. Currently afebrile. Positive BM overnight approximately 1 L according to RN. No blood noted. 100 cc from gastric tube overnight. Hemoglobin corrected a properly. Likely dilutional. Noted fungemia currently issue. Opens eyes to voice. 08/28: Tmax 99.1. No BMs overnight. Minimal gastric tube output. Hemoglobin stable 9.5. Opens eyes to voice. Not following commands. Appears with singultus this morning. 08/29: 20 beat run of wide complex tachycardia overnight. Noted potassium 3.2. This is been replaced. We'll recheck this afternoon. Circuit exchange yesterday. Patient tolerating pressure control ventilation much better than PRVC/AC ventilation is low probably VQ scan. Less FiO2 requirements. No BM past 24 hour. 08/30: Unable to wean ventilator. 08/31: Patient was extubated on 08/30 however became tachypneic with use of accessory muscles of respiration and required reintubation around 6:30 PM last night and was placed back on mechanical ventilation. Currently sedated, orally intubated on mechanical ventilation. Post intubation chest x-ray suggested fluid overload for which she was given Lasix 40 mg IV with good response having made about 2.5 L urine the last 7 hours. 09/01: Remains sedated, orally intubated on mechanical ventilation. Diuresing well with Lasix. Awaiting EGD in a.m. 09/02: Little progress. CXR clearing nicely. Continue diuresis, tolerate hypernatremia. 09/03: Good diuretic response. CRISTHIAN today with no valvar pathology. 09/04: Too weak to tolerate extubation. Will require trach. 09/05: Sedated, arousable, following commands. Tolerated C Pap trial for 9 hours yesterday with pressure support +10. Tolerating tube feeds. 09/06: Extubated yesterday. Chest x-ray reveals likely mucous plugging in left lung garcia. Currently on nonrebreather mask. Planning of insomnia and thick secretions that he is unable to cough up. 09/07 Patient s/p reintubation and bronch 09/06 mucous plugs in left main stem bronchus sedated with Diprivan and Fentanyl. Afebrile. For possible trach tomorrow. 09/08 No acute events overnight. Sedated with Diprivan and Fentanyl. Afebrile. For trach today. 09/09 No acute events overnight. Sedated and intubated. s/p trach yesterday for PEG tube placement today. 09/10 Patient remains sedated and on ventilator via trach. s/p EGD yesterday PEG tube couldn't be placed endoscopically due to hernia. Surgery consulted for J-tube placement. Afebrile. 09/11 No acute events overnight. Sedated with Diprivan, Fentanyl and intubated. Afebrile. Tolerating tube feeds. 09/12 Patient is off Diprivan remains on Fentanyl infusion tolerated CPAP trials for several hrs and TP's x 2 hrs yesterday now on TP with 50% FIO2. Afebrile. 09/13 Patient tolerated TP's all day yesterday placed on PRVC/AC mode overnight. TF held for high residuals. Afebrile. On Fentanyl infusion however he is awake, restless. 09/14 No acute events overnight. Tolerated TP's all day yesterday placed back on ventilator overnight. On Fentanyl infusion. Afebrile. Repeat KUB this morning showed ileus. 09/15 Patient is off fentanyl infusion and is on Precedex drip pulled his NGT overnight. KUB this morning showed improvements in gaseous distention of bowel. 09/16 Yesterday afternoon an NG tube was placed patient was noted to have tube feeds with possible aspiration.NGT placed this am, KUB pending. 09/17: no acute events overnight. tolerated cpap. back on rate overnight. this morning on trach collar. 09/18: prior history of constipation, now with diarrhea. otherwise, awaiting placement. 09/19: diarrhea improving. still awaiting placement. 09/20: still doing well. on trach collar this morning on my evaluation. insurance has not yet approved placement. 09/21: tired out on trach collar yesterday. placed intermittently on cpap. insurance denied LTAC. will work towards [id number]. 09/22: had [id number] today. insurance continues to request permanent surgical feeding access to go to LTAC. My medical opinion is that patient is clinically improving and tolerating DHT without complication, and could safely be fed through DHT for the coming weeks, and I anticipate his dysphagia to resolve as his strength improves. I do not see a clinical indication for permanent surgical gastric access. We also are not a rehab center, and he is not getting medically appropriate care for his level of medical need. He does not require ICU admission, and medically would be more appropriate for LTAC. 09/23: transferred to [facility]. doing well. tachycardic this morning. diltiazem changed from QID to q6hr for more even distribution. insurance company denied admission to LTAC. will continue to pursue this as an option. otherwise, OOB to chair daily. still working with speech. 09/24: did not sleep well overnight. agitated. awake most of the night. I removed stay sutures from trach this morning. 09/25: Received Haldol overnight, resting now. Not agitated. On PRVC/AC. CPAP trails to resume today. Somnolent but wakes up and follows commands 09/26: Continues to have large amount of tracheal secretions. Levaquin restarted sputum culture ordered. Chest x-ray is pending. Did not tolerate CPAP yesterday became tachycardic and hypoxic Subjective 09/27: Tolerated CPAP approximately 6-7 hours became tachypneic afterwards. Currently on full vent support FiO2 50%. Chest x-ray from yesterday shows bilateral pleural effusions/infiltrate right more than left. CT chest ordered cefepime added sputum culture is pending. More delirious at night, now with eyes open following commands EVENTS FROM 09/27/16 evening Patient was turned to left side for thoracentesis, he acutely desaturated to low 70s prior to starting the procedure. Patient was placed back in supine, bag and mask ventilation performed until sats came up to 98%. Patient was again partially turned to left side and thoracentesis was attempted. Even though ultrasound showed fluid, air was withdrawn into the syringe. Procedure was abandoned and patient was put in neutral position. Peak pressures on the vent increased and patient started desaturating to 70s indicating tension pneumothorax. The thoracentesis Angiocath was used for emergency decompression and bag and mask ventilation became easier. An emergency 8 Lebanese pigtail catheter was placed and connected to Pleur-evac. This had significant air leak but patient remained with low oxygen saturation in 70s. Additional 28 Lebanese chest tube was emergently placed with a gradual improvement in saturation to mid 80s. (Chest tube/Pigtail tray was not available immediately at the bedside , and the tech had to run to the [facility] to get the chest tube tray). Patient was placed back on PC/ACmechanical ventilation with low tidal volume. Post chest tube chest x-ray shows good reexpansion of the lung and good positioning of the chest tubes. But the left lung is collapsed with mediastinal shift to the left indicating bronchial obstruction probably from mucous plug. I attempted bronchoscopy with intubating bronchoscope available here at [place]. I was unable to suction out any mucus plugging, or visualize clearly. Patient was transferred to [facility] in [facility]. Dr. Espinoza performed therapeutic bronchoscopy with pediatric bronchoscope, and he was in able to clear a significant amount of secretion with reexpansion of lung. 09/28: Chest x-ray today shows right sided pneumothorax almost resolved. Good reexpansion of the left lung also bibasilar infiltrates seen. Sputum culture growing gram-negative rods. Patient is awake alert on full vent support. Levophed is being weaned currently on 4 mics per minute 09/29: Remains on mechanical ventilation via tracheostomy. Continues to have persistent air leak from right sided pigtail catheter as well as chest tube. Chest x-ray today shows slight increase in size of right pneumothorax. 09/30: Remains on mechanical ventilation via tracheostomy. Very small air leak noted in right sided chest tube. 10/01: Remains on mechanical ventilation via tracheostomy. Daily C Pap and T piece trials. Very small air leak noted. Decreased suction on right chest tube to -20 cm water pressure today. 10/02: Alert, breathing comfortably on vent. Continue weaning trials. 10/03: Continue daily SBTs and Dakin's dressing changes. 10/04: Awake and alert, following commands. Daily C Pap/T piece trials as tolerated. Objective Vital Signs Date Time Temp Pulse Resp B/P Pulse Ox O2 Delivery O2 Flow Rate FiO2 10/04/16 10:30 100 T-piece 35 10/04/16 10:00 102 10/04/16 08:12 16 10/04/16 08:00 98.1 135/71 10/02/16 11:50 8.00 Intake and Output 10/03/16 10/03/16 10/04/16 08:00 16:00 00:00 Intake Total 1089 ml 793 ml 348 ml Output Total 700 ml 1000 ml 1160 ml Balance 389 ml -207 ml -812 ml Result Diagram: 10/03/16 0625 10/02/16 0520 Imaging Last Impressions Abdomen X-Ray 09/15/16 0600 Signed Impressions: Service Date/Time: Thursday, September 15, 2016 03:16 - CONCLUSION: 1. Improved gaseous distention of bowel since September 14. Mild distention persists. 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 There is concentric mural thrombus. This aneurysm is not amenable to thrombin injection. Polo Moore Jr., MD Lung Scan- Nuclear Medicine 08/29/16 0000 Signed Impressions: Service Date/Time: Monday, August 29, 2016 10:20 - CONCLUSION: Low probability for pulmonary embolus. Lex Lopez MD Brain MRI 08/27/16 0000 Signed Impressions: Service Date/Time: August 15:13 - CONCLUSION: No evidence of acute infarct, hemorrhage, mass or edema. No findings to suggest significant anoxic injury. Kit Power MD Renal Ultrasound 08/25/16 0000 Signed Impressions: Service Date/Time: Wednesday, August 24, 2016 21:53 - CONCLUSION: 1. There is no hydronephrosis. Both kidneys demonstrate mild increased echotexture of the parenchyma suggesting medical renal disease. 2. Trace perihepatic free fluid and bilateral pleural effusions. Lex Malik MD Chest CT 08/25/16 0000 Signed Impressions: Service Date/Time: Thursday, August 25, 2016 21:20 - CONCLUSION: 1. Bilateral pneumonia and aspiration would be in the differential. There is dependent consolidation/atelectasis and small effusions of the bases as well. 2. Upper limits of normal to mildly enlarged mediastinal lymph nodes, most likely reactive. 3. Coronary artery calcification. 4. Right rib fractures, including acute fractures laterally of the third, fourth and fifth. There are old, healed fractures anteriorly of the right second and third ribs.. Lex Lopez MD Abdomen/Pelvis CT 08/25/16 0000 Signed Impressions: Service Date/Time: Thursday, August 25, 2016 20:20 - CONCLUSION: 1. Ventral hernia containing small bowel and with associated small bowel obstruction. The defect is broad; I believe the obstruction is probably related to scarring and/or adhesions within the hernia sac. I don't see a mass. 2. Distended stomach despite NG tube present. 3. Severe aortoiliac atherosclerosis. No aneurysm. Lex Lopez MD Objective Remarks GENERAL: Patient is 71 yo lying in bed in bed, on mechanical ventilation via tracheostomy, follows commands SKIN: Warm and dry. HEAD: Normocephalic. EYES: No scleral icterus. No injection or drainage. NECK: trachea midline. No JVD. Trach in place. Copious yellow thick secretions CARDIOVASCULAR: Regular rate and rhythm without murmurs, gallops, or rubs. RESPIRATORY: Breath sounds equal bilaterally, coarse rhonchi bilaterally predominantly at the bases, few coarse crackles. Intermittent air leak in right sided chest tube noted GASTROINTESTINAL: Abdomen soft, non-tender, nondistended. MUSCULOSKELETAL: No cyanosis, +1 edema. NEURO: Awake, follows commands. Grossly nonfocal A/P Assessment and Plan Neuro/Psych: Status post CPR 15 minutes Depression NOS Agitated Delirium --Neurochecks per ICU protocol --Zyprexa 10 mg q8h 09/27 (will reduce dose to total 20 mg gradually) --Melatonin q hs for sleep --prn breakthrough haldol for agitation --d/cd ativan due to paradoxical agitation. Continue Xanax 0.25 mg by mouth every 8 hours when necessary 09/26 --EEG 08/25 revealed mild to moderate encephalopathy. No epileptiform activity. --MRI brain 08/27 revealed no acute findings. --Calm 10/03 Cardiovascular: Septic shock Cardiac arrest status post CPR Elevated troponin History dyslipidemia History of hypertension PVD Possible femoral pseudoaneurysm Off Levophed Monitor HR and BP keep MAP>65mmHg Starting Cardizem 30 minutes by mouth 4 times a day on 09/30 for Tachyarrhythmia Cardiac arrest status post CPR. s/p aggressive fluid resuscitation. minimal troponin elevation following cardiac arrest noted Echo 2D revealed EF 35-40%. Moderate LVH. Mitral valve calcified. Mild TR. Pulmonary: Tension pneumothorax s/p chest tube 09/27 Complete left lung collapse from mucous plugging 09/27 HCAP with GNR Acute respiratory failure secondary to aspiration pneumonia- Reintubated 09/06 s/p Trach on 09/08 End-stage COPD. Oxygen dependent FEV1 28%, FVC 1.6. S/P Aspiration 09/15 Status post emergency chest tube 2 for tension pneumothorax (09/27) following right attempted thoracentesis, 28 Lebanese chest tube to -20cm water pressure. Status post bronchoscopy for mucous plugging of the left main bronchus 09/27 s/p reintubation and bronch 09/06 mucous plugs in left main stem bronchus Continue with vent support keep sat >90%. PRVC. Daily C Pap trials, T piece as tolerated. Bronchodilators, Pulmicort twice a day Needs aggressive pulmonary rehab with LTAC. Continues to be very weak VQ scan low probability 08/29 ICU vent bundle, pulm toilet, trach care GI: Small bowel obstruction - resolved Upper GI bleed plus esophageal rule out aorto esophageal fistula History of Ashley esophagitis History of colonic polyps History of ventral hernia status post repair last by Dr. Roberts Diarrhea Continue tube feeds and advance to goal as tolerated. Continue Reglan 5mg IV Q8, Senna, Lactulose, Colace. having BM From a GI standpoint, use nasogastric access at this time. continue frequent speech eval for swallowing, once clinically improved. s/p EGD 09/09: Deformed pylorus/antrum, nodular mucosa-multiple biopsies taken esophagitis distal esophagus-biopsy unable to place PEG endoscopically due to hiatal hernia. CT abdomen/pelvis revealed possible small bowel obstruction at level of ventral hernia. Severe aortoiliac disease. Dr. Roberts/general surgery evaluated. Very poor surgical candidate this time. EGD 08/25 revealed esophageal nipple. Clots noted within the gastric contents without active bleeding. Protonix for GI prophylaxis, 40 mg IV q12 Hold Bowel regimen for diarrhea. 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 the patient does not have a contraindication to replacement of DHT if it comes out accidentally. Continue speech/swallow eval and strengthening. I do think he will be strong enough to eat PO in the near future and will not medically require surgical feeding tube. Surgical feeding tube high risk given hernia. risks outweigh benefits. we have a defined long-term enteral feeding plan. Renal/: Acute kidney injury- resolved Hypernatremia History of bladder outlet obstruction Monitor renal function, I/O's, electrolytes replacement per protocol. Free water flushes 300ml Q6 monitor sodium level No hydronephrosis on CT abdomen/pelvis ID: New HCAP Severe sepsis UTI Fungemia Stenotrophomonas HCAP, s/p course of Levaquin 09/10 - 09/16 s/p course of micafungin for fungemia Restarted Levaquin 09/26 secondary to increased secretions send sputum culture, Added cefepime 09/27 ID following Pertinent cultures 09/26: Sputum Stenotrophomonas 09/08 Bronch: S. Maltophilia, 09/06 Bronch- S. Maltophilia, 09/03 - blood culture - no growth 09/02 - blood culture - no growth 08/27 - blood from central line -Ashley Glabrata 08/27 -arterial line blood - pending 08/26 - sputum -Serratia 08/25 - blood cultures 2 -Ashley 08/25 - urine -no growth 08/22 - blood cultures 2 - no growth 08/21 - urine - no growth 08/20 - blood cultures 2 - 1 out of 4 staph epi Endocrine: Chronic prednisone use secondary to COPD SSI for glycemic control as needed. Heme: s/p Acute blood loss anemia History of prostate cancer Status post 4 units PRBCs ands 2 units FFP on 08/24. Given one unit PRBCs 08/26, 1U 09/26 Additional 1 unit 09/28/16 Monitor CBC H/H stable. MSK: PT/OT evaluate and treat. Attempt up to chair daily with PT Access - peripheral IV's, PICC line placed 09/11 Prophylaxis - GI -Protonix 40 q12 - DVT - SCD/ heparin 5000 u Sq Q12- cleared by GI. Resumed heparin 09/30 Overall impression: Slow progress s/p cardiopulmonary arrest. Nemani,Blair K. MD Oct 04, 2016 11:18
[2016-10-04] MEDS: HALOPERIDOL LACTATE 5 MG/ML AMP IV PRN (14:01)
[2016-10-04] MEDS: MELATONIN 5 MG TAB PO SCH (20:45)
[2016-10-04] MEDS: RESP: ALBUTEROL 2.5 MG/IPRATROPIUM 0.5 MG NEB (PRN) INH (20:57)
[2016-10-05] VITALS (16 sets, daily range): BP systolic 98–118; BP diastolic 60–78; PULSE 76–115; RESP 13–35; TEMP 97.9–98.6; O2SAT 93–100
[2016-10-05] MEDS: OLANZapine ODT 10 MG TAB PO SCH ×3 (00:36→17:13)
[2016-10-05] MEDS: HYDROmorphone HCL PF 1 MG/ML VIAL IV PRN ×3 (00:36→23:02)
[2016-10-05] MEDS: METOCLOPRAMIDE HCL 10 MG/2 ML VIAL IV PUSH SCH ×4 (00:36→23:02)
[2016-10-05] MEDS: INSULIN NovoLIN REGULAR SUPPLEMENTAL SCALE SQ SCH ×5 (01:01→23:36)
[2016-10-05 01:56] LABS: BICARBONATE 34.7 MEQ/L (21.0-32.0); MAGNESIUM 1.2 MG/DL (1.5-2.5); POTASSIUM 3.7 MEQ/L (3.5-5.1)
[2016-10-05 02:16] LABS: CALCIUM-PROTEIN CORRECTED 8.7 MG/DL (8.5-10.1)
[2016-10-05] MEDS: MAGNESIUM SULFATE 1 GM PREMIX 100 ML IV SCH ×2 (03:00→04:10)
[2016-10-05] MEDS: oxyCODONE HCL ORAL CONC 20 MG/ML SYRINGE PO PRN ×3 (03:19→17:13)
[2016-10-05] MEDS: FREE WATER G-TUBE SCH ×5 (06:00→23:36)
[2016-10-05] MEDS: NYSTATIN 100,000 U/GM PWD 15 GM BTL TOPICAL SCH ×3 (06:00→22:00)
[2016-10-05 07:21] LABS: BICARBONATE 36.3 MEQ/L (21.0-32.0); POTASSIUM 3.9 MEQ/L (3.5-5.1)
[2016-10-05] MEDS: SODIUM CHLORIDE 0.9% FLUSH 10 ML FLUSH IV FLUSH SCH (07:26)
[2016-10-05] MEDS: SODIUM CHLORIDE 0.9% FLUSH 5 ML FLUSH IVF SCH (07:27)
[2016-10-05] MEDS: CHLORHEXIDINE GLUCONATE 0.12% 30 ML CUP SCH ×2 (08:00→20:00)
[2016-10-05 08:01] LABS: MAGNESIUM 1.9 MG/DL (1.5-2.5)
[2016-10-05] MEDS: RESP: ALBUTEROL 2.5 MG/IPRATROPIUM 0.5 MG NEB (PRN) INH ×2 (08:02→20:39)
[2016-10-05] MEDS: RESP: BUDESONIDE 0.5 MG/2 ML NEB NEB SCH ×2 (08:02→20:39)
[2016-10-05] MEDS: HEPARIN SODIUM - SQ 10,000 UNITS/ML VIAL SQ SCH ×2 (08:28→20:00)
[2016-10-05] MEDS: DOCUSATE SODIUM 100 MG/10 ML UDC PO SCH ×2 (08:28→20:01)
[2016-10-05] MEDS: LACTULOSE SYRUP 20 GM/30 ML CUP PO SCH (08:28)
[2016-10-05] MEDS: DOXAZOSIN MESYLATE 2 MG TAB PO SCH (08:29)
[2016-10-05] MEDS: DILTIAZEM HCL 30 MG TAB PO SCH ×4 (08:29→20:00)
[2016-10-05] MEDS: MULTIVITAMINS/MINERALS THERAPEUTIC TAB PO SCH (08:29)
[2016-10-05] MEDS: PANTOPRAZOLE SODIUM 40 MG VIAL IV PUSH SCH ×2 (08:29→20:01)
[2016-10-05] MEDS: COLLAGENASE OINT 30 GM TUBE TOP SCH (08:30)
[2016-10-05] MEDS: TAMSULOSIN HCL 0.4 MG CAP PO SCH (08:38)
[2016-10-05] MEDS: SENNOSIDES SYRUP 8.8 MG/5 ML CUP PO SCH (08:38)
[2016-10-05] MEDS: LEVOFLOXACIN 750 MG TAB PO SCH (08:39)
--- NOTE | 2016-10-05 10:24 | HHI.IDPN ---
Subjective Subjective Remarks Notes reviewed Discussed with RN Salud ok On T piece this morning Up in a stretcher chair Not SOB Tolerating TF Bronch C/S Sten mal Not a lot of output from the right chest tube Antibiotics Levaquin - started 09/26 Lines PICC - 09/11 Past Medical History Reviewed Allergies: Coded Allergies: *MDRO Multi-Drug Resistant Organism (Verified Adverse Reaction, Unknown, ) MRSA (abdominal wound) 2015 per 04/10/2015 H&P MRSA PCR Screen #1 NEGATIVE - 08/21/16 Objective . Vital Signs Date Time Temp Pulse Resp B/P Pulse Ox O2 Delivery O2 Flow Rate FiO2 10/05/16 09:00 96 T-piece 8.00 45 10/05/16 09:00 45 10/05/16 08:00 101 10/05/16 08:00 97.9 101 18 111/78 95 10/05/16 08:00 40 10/05/16 06:00 76 10/05/16 04:19 14 10/05/16 04:03 100 40 10/05/16 04:00 82 10/05/16 04:00 98.1 78 13 113/66 98 10/05/16 04:00 40 10/05/16 02:00 82 10/05/16 01:24 99 40 10/05/16 01:06 21 10/05/16 00:00 40 10/05/16 00:00 98.6 88 21 116/72 98 10/05/16 00:00 88 10/04/16 22:36 99 40 10/04/16 22:36 40 10/04/16 22:00 96 10/04/16 22:00 50 10/04/16 20:58 94 50 10/04/16 20:55 94 T-piece 40 10/04/16 20:00 98.0 83 20 118/68 99 10/04/16 20:00 83 10/04/16 18:00 101 10/04/16 16:00 97.9 100 17 142/73 98 10/04/16 16:00 100 10/04/16 14:00 102 10/04/16 12:00 50 10/04/16 12:00 98.7 110 16 132/77 94 10/04/16 12:00 110 10/04/16 10:30 100 T-piece 35 10/04/16 10/04/16 10/05/16 15:00 23:00 07:00 Intake Total 678 ml 550 ml 1203 ml Output Total 1100 ml 1250 ml 900 ml Balance -422 ml -700 ml 303 ml Intake Oral 60 ml IV Total 36 ml 45 ml 290 ml Tube Feeding 342 ml 445 ml 453 ml Other 300 ml 60 ml 400 ml Output Urine Total 1100 ml 1250 ml 900 ml Chest Tube Drainage Total 0 ml 0 ml 0 ml # Bowel Movements 0 0 1 . Laboratory Tests Test 10/05/16 10/05/16 01:25 06:35 Sodium Level 142 MEQ/L 141 MEQ/L Potassium Level 3.7 MEQ/L 3.9 MEQ/L Chloride Level 104 MEQ/L 101 MEQ/L Carbon Dioxide Level 34.7 MEQ/L 36.3 MEQ/L Anion Gap 3 MEQ/L 4 MEQ/L Blood Urea Nitrogen 10 MG/DL 10 MG/DL Creatinine 0.29 MG/DL 0.32 MG/DL Estimat Glomerular Filtration 308 ML/MIN 275 ML/MIN Rate Random Glucose 129 MG/DL 136 MG/DL Calcium Level 7.3 MG/DL 7.9 MG/DL Protein Corrected Calcium 8.7 MG/DL Phosphorus Level 2.8 MG/DL 3.3 MG/DL Magnesium Level 1.2 MG/DL 1.9 MG/DL Troponin I 0.02 NG/ML Total Protein 4.7 GM/DL Imaging Chest X-Ray 10/01/16 0600 Signed Impressions: Service Date/Time: September 03:55 - CONCLUSION: 1. Bilateral pleural-parenchymal densities are slightly more prominent. 2. Small right apical pneumothorax is unchanged. Eduardo Mcconnell MD Chest X-Ray 09/28/16 0600 Signed Impressions: Service Date/Time: Wednesday, September 28, 2016 04:23 - CONCLUSION: 1. Decreasing pneumothorax along the right lung base. 2. Bibasilar densities again seen. Eduardo Mcconnell MD Chest X-Ray 09/27/16 2230 Signed Impressions: Service Date/Time: Tuesday, September 27, 2016 22:36 - CONCLUSION: 1. Mild basilar airspace disease. Small right pneumothorax but increased from earlier exam. Near-complete reexpansion of the left lung. No left pneumothorax. Eleazar Jimenez MD Chest X-Ray 09/27/16 0600 Signed Impressions: Service Date/Time: Tuesday, September 27, 2016 06:24 - CONCLUSION: Hazy density seen in the chest bilaterally likely related to bilateral effusions. Some degree of atelectasis or consolidation at the bases also needs to be considered. Lex Lopez MD Chest X-Ray 09/27/16 0000 Signed Impressions: Service Date/Time: Tuesday, September 27, 2016 18:12 - CONCLUSION: 1. Development of near complete atelectasis of the left lung since exam from earlier today with mediastinal shift from right to left. 2 right chest tubes now present with small right pneumothorax. 2. Tracheostomy and NG tube unchanged. Findings discussed by telephone with Dr. Burnett. Eleazar Jimenez MD Chest CT 09/27/16 0000 Signed Impressions: Service Date/Time: Tuesday, September 27, 2016 09:17 - CONCLUSION: Bilateral large layering pleural effusions with complete atelectasis of the lower lobes. There is been interval placement of a tracheostomy tube which appears appropriately positioned. NG tube appears in appropriate position as does the right-sided central line.. Lola Jean Baptiste MD Chest X-Ray 09/26/16 0600 Signed Impressions: Service Date/Time: Monday, September 26, 2016 06:38 - CONCLUSION: Hazy density throughout the lungs likely related to bilateral effusions. Some degree of atelectasis or consolidation at the lung bases also needs to be considered. Lex Lopez MD Chest X-Ray 09/16/16 0000 Signed Impressions: Service Date/Time: Friday, September 16, 2016 04:58 - CONCLUSION: 1. Tracheostomy and right PICC line present. Bilateral airspace disease, right greater than left similar to September 15. Eleazar Jimenez MD Abdomen X-Ray 09/16/16 0000 Signed Impressions: Service Date/Time: Friday, September 16, 2016 10:54 - CONCLUSION: 1. Nasogastric tube looped in the distal esophagus. Gareth Escalante MD Abdomen X-Ray 09/15/16 0600 Signed Impressions: Service Date/Time: Thursday, September 15, 2016 03:16 - CONCLUSION: 1. Improved gaseous distention of bowel since September 14. Mild distention persists. Eleazar Jimenez MD Chest X-Ray 09/15/16 0000 Signed Impressions: Service Date/Time: Thursday, September 15, 2016 13:39 - CONCLUSION: Decrease in medial left lung base atelectasis. No change in hazy right lung base opacity. Donald Valerio MD Abdomen X-Ray 09/14/16 0600 Signed Impressions: Service Date/Time: Wednesday, September 14, 2016 03:56 - CONCLUSION: Gaseous distention of multiple bowel loops, likely ileus. Eduardo Mcconnell MD Chest X-Ray 09/08/16 1325 Signed Impressions: Service Date/Time: Thursday, September 08, 2016 13:37 - CONCLUSION: 1. Interval improvement of the interstitial infiltrates with minimal residual right basilar infiltrate noted. 2. Tracheostomy tube in good position approximately 5 cm above the michele. Lui Kim MD Chest X-Ray 09/06/16 0000 Signed Impressions: Service Date/Time: Tuesday, September 06, 2016 13:49 - CONCLUSION: 1. Interval intubation and placement of nasogastric tube. 2. Volume loss again noted left hemithorax with mediastinal shift. There is coarse infiltrate remaining in the left lung. Ian Horton MD Chest X-Ray 09/06/16 0000 Signed Impressions: Service Date/Time: Tuesday, September 06, 2016 08:50 - CONCLUSION: 1. Increasing density throughout the left hemithorax with volume loss suggesting mucus plugging. Eduardo Mcconnell MD Chest X-Ray 09/05/16 0500 Signed Impressions: Service Date/Time: Monday, September 05, 2016 03:49 - CONCLUSION: 1. Basilar airspace disease similar to prior exam. Support apparatus unchanged. Eleazar Jimenez MD Chest X-Ray 09/05/16 0500 Signed Impressions: Service Date/Time: Monday, September 05, 2016 03:49 - CONCLUSION: 1. Basilar airspace disease similar to prior exam. Support apparatus unchanged. Eleazar Jimenez MD Chest X-Ray 09/01/16 0600 Signed Impressions: Service Date/Time: Thursday, September 01, 2016 03:19 - CONCLUSION: No significant interval change in bilateral pulmonary parenchymal opacity and small bilateral pleural effusions. 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 There is concentric mural thrombus. This aneurysm is not amenable to thrombin injection. Polo Moore Jr., MD Chest X-Ray 08/27/16 0600 Signed Impressions: Service Date/Time: August 02:27 - CONCLUSION: 1. Patchy bilateral airspace disease with improving aeration/decreasing effusions in the bases bilaterally. 2. Stable position of life support tubes. Con Valdes MD Chest X-Ray 08/26/16753 Signed Impressions: Service Date/Time: Friday, August 26, 2016 08:14 - CONCLUSION: Left IJ central line distal tip in the SVC. No pneumothorax is visualized. There is a stable appearance the lungs with bilateral airspace consolidation. Lex Malik MD Chest X-Ray 08/26/16 06 Signed Impressions: Service Date/Time: Friday, August 26, 2016 04:01 - CONCLUSION: 1. Worsening bibasilar effusions/atelectasis with diffuse interstitial edema, all characteristic of CHF. 2. Endotracheal tube remains appropriately positioned above the michele Con Valdes MD Chest X-Ray 08/26/16753 Signed Impressions: Service Date/Time: Friday, August 26, 2016 08:14 - CONCLUSION: Left IJ central line distal tip in the SVC. No pneumothorax is visualized. There is a stable appearance the lungs with bilateral airspace consolidation. Lex Malik MD Renal Ultrasound 08/25/16 Signed Impressions: Service Date/Time: Wednesday, August 24, 2016 21:53 - CONCLUSION: 1. There is no hydronephrosis. Both kidneys demonstrate mild increased echotexture of the parenchyma suggesting medical renal disease. 2. Trace perihepatic free fluid and bilateral pleural effusions. Lex Malik MD Chest CT 08/25/16 Signed Impressions: Service Date/Time: Thursday, August 25, 2016 21:20 - CONCLUSION: 1. Bilateral pneumonia and aspiration would be in the differential. There is dependent consolidation/atelectasis and small effusions of the bases as well. 2. Upper limits of normal to mildly enlarged mediastinal lymph nodes, most likely reactive. 3. Coronary artery calcification. 4. Right rib fractures, including acute fractures laterally of the third, fourth and fifth. There are old, healed fractures anteriorly of the right second and third ribs.. Lex Lopez MD Abdomen/Pelvis CT 08/25/16 0000 Signed Impressions: Service Date/Time: Thursday, August 25, 2016 20:20 - CONCLUSION: 1. Ventral hernia containing small bowel and with associated small bowel obstruction. The defect is broad; I believe the obstruction is probably related to scarring and/or adhesions within the hernia sac. I don't see a mass. 2. Distended stomach despite NG tube present. 3. Severe aortoiliac atherosclerosis. No aneurysm. Lex Lopez MD Abdomen X-Ray 08/24/16 0000 Signed Impressions: Service Date/Time: Wednesday, August 24, 2016 17:19 - CONCLUSION: 1. Small bowel dilatation which reflect ileus or obstruction. Followup examination is recommended if clinically indicated. Gareth Escalante MD Physical Exam GENERAL: Awake, and alert, following, NAD. On the vent SKIN: Warm and dry. No generalized rash HEENT: [place] conjunctiva, no scleral icterus. Dry oral mucosa. Has NGT in place NECK: Trach site ok. Supple. CARDIOVASCULAR: Regular rate and rhythm without murmurs, gallops, or rubs. RESPIRATORY: Decreased breath sounds on the left side, rhonchi on the right side ABDOMEN: Not tender, not distended. Has a large midline hernia reducible, mildly distended. Has midline scar. MUSCULOSKELETAL: Extremities without clubbing, cyanosis. No edema. : Hammond catheter in place, urine looks clear LINE: PICC no evidence of infection. Assessment & Plan Remarks IMPRESSION New problem, respiratory, plugging, possible new VAP, resolved - S/P bronch 09/27 - BP better - S/P course of Abx Sepsis present on admission and then sepsis again. Better Central line associated blood stream infection (CLABSI) related fungemia ( likely groin line) now discontinued. Arterial line discontinued as well. 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 - S/P Rx Sten mal in sputum, S/P Rx x 2 courses Status post cardiorespiratory arrest Findings SBO within the hernia on CT A/P, clinically better Acute respiratory failure, S/P trach Leukocytosis, better COPD, oxygen dependent Previous GI bleed with workup showing gastritis, Ashley esophagitis, and polyps Large incisional ventral hernia Bladder outlet obstruction, currently has a Hammond Renal insufficiency, resolved RECOMMENDATION Continue Levaquin, to finish 10/09 Follow temps Monitor progress Weaning per CCM Discussed with Nuha Nguyen MD Oct 05, 2016 10:24
--- NOTE | 2016-10-05 14:59 | HHI.CCPN ---
Subjective Remarks/Hospital Course 08/24: 71 Year-old male with a medical history significant for COPD on home oxygen who was recently admitted with suspected sepsis/H And was initiated on IV antibiotics and steroids. He had recently been evaluated by GI and underwent EGD on 08/10/2016 and was found to have moderate esophagitis, mild gastritis with pathology subsequently showing Ashley esophagitis as well as colonoscopy on 08/11/2016 with polypectomy and ablation of polyp in ascending colon with hot snare. Patient has been dealing with constipation since his admission. Today when he was trying to have a bowel movement he suddenly became less responsive and then had a large emesis which resulted in aspiration and hemodynamic collapse. Patient initially had large volume emesis with dark maroon blood. CODE BLUE cardiac arrest code was activated. On my arrival patient was in bed CPR had been initiated. Significant gastric contents was still being suctioned out of his oral cavity. ACLS protocol was continued. Patient was intubated following vigorous suctioning of gastric contents from oral cavity as well as with placement of NG tube which is hooked up to suction and about 1.5 L of gastric contents being suctioned out which appeared to be dark maroon in color. Patient initially had a pulse when CODE BLUE was called and subsequently went in PEA arrest followed by asystole during ACLS and then V. fib for which he was defibrillated with 200 J 1, CPR/ACLS protocol was continued and patient eventually had return of spontaneous circulation after about 15 minutes of CPR/ACLS. Patient was transferred to [facility] and placed on mechanical ventilation. I emergently placed left femoral central line for central vascular access and he was started on Levophed for pressor support. 2 units of O- 1 crossmatch blood were ordered and transfused stat. He also received 1 L of normal saline bolus following return of spontaneous circulation. Stat labs were ordered. His hemoglobin on ABG done post resuscitation was 5.6. I did order Protonix 80 mg IV stat followed by 8 mg per hour IV infusion. Patient remained encephalopathic though was minimally responsive following transfer to the ICU. GI consult was requested and I spoke with Dr. Zamarripa at bedside on his arrival. History was obtained by reviewing records, discussion with family/ GI as well as nursing staff. According to patient's daughter he has not been doing well for the last few months in terms of his breathing and has been using his home oxygen more often. He gets extremely short of breath even with the least exertion. 08/25: Remains encephalopathic/ sedated, [facility]. Transiently off levophed last night however back to 11 mcg/min currently. Hgb up to 9.4 following 4 units PRBCs transfused last night. 08/26: Tmax 99. Some unresponsive on the ventilator. CT abdomen/pelvis less than revealed small bowel obstruction at site of ventral hernia. No further bleeding noted. Gastric output approximately 700 cc. No bowel movement. 08/27: Tmax 99.7. Currently afebrile. Positive BM overnight approximately 1 L according to RN. No blood noted. 100 cc from gastric tube overnight. Hemoglobin corrected a properly. Likely dilutional. Noted fungemia currently issue. Opens eyes to voice. 08/28: Tmax 99.1. No BMs overnight. Minimal gastric tube output. Hemoglobin stable 9.5. Opens eyes to voice. Not following commands. Appears with singultus this morning. 08/29: 20 beat run of wide complex tachycardia overnight. Noted potassium 3.2. This is been replaced. We'll recheck this afternoon. Circuit exchange yesterday. Patient tolerating pressure control ventilation much better than PRVC/AC ventilation is low probably VQ scan. Less FiO2 requirements. No BM past 24 hour. 08/30: Unable to wean ventilator. 08/31: Patient was extubated on 08/30 however became tachypneic with use of accessory muscles of respiration and required reintubation around 6:30 PM last night and was placed back on mechanical ventilation. Currently sedated, orally intubated on mechanical ventilation. Post intubation chest x-ray suggested fluid overload for which she was given Lasix 40 mg IV with good response having made about 2.5 L urine the last 7 hours. 09/01: Remains sedated, orally intubated on mechanical ventilation. Diuresing well with Lasix. Awaiting EGD in a.m. 09/02: Little progress. CXR clearing nicely. Continue diuresis, tolerate hypernatremia. 09/03: Good diuretic response. CRISTHIAN today with no valvar pathology. 09/04: Too weak to tolerate extubation. Will require trach. 09/05: Sedated, arousable, following commands. Tolerated C Pap trial for 9 hours yesterday with pressure support +10. Tolerating tube feeds. 09/06: Extubated yesterday. Chest x-ray reveals likely mucous plugging in left lung garcia. Currently on nonrebreather mask. Planning of insomnia and thick secretions that he is unable to cough up. 09/07 Patient s/p reintubation and bronch 09/06 mucous plugs in left main stem bronchus sedated with Diprivan and Fentanyl. Afebrile. For possible trach tomorrow. 09/08 No acute events overnight. Sedated with Diprivan and Fentanyl. Afebrile. For trach today. 09/09 No acute events overnight. Sedated and intubated. s/p trach yesterday for PEG tube placement today. 09/10 Patient remains sedated and on ventilator via trach. s/p EGD yesterday PEG tube couldn't be placed endoscopically due to hernia. Surgery consulted for J-tube placement. Afebrile. 09/11 No acute events overnight. Sedated with Diprivan, Fentanyl and intubated. Afebrile. Tolerating tube feeds. 09/12 Patient is off Diprivan remains on Fentanyl infusion tolerated CPAP trials for several hrs and TP's x 2 hrs yesterday now on TP with 50% FIO2. Afebrile. 09/13 Patient tolerated TP's all day yesterday placed on PRVC/AC mode overnight. TF held for high residuals. Afebrile. On Fentanyl infusion however he is awake, restless. 09/14 No acute events overnight. Tolerated TP's all day yesterday placed back on ventilator overnight. On Fentanyl infusion. Afebrile. Repeat KUB this morning showed ileus. 09/15 Patient is off fentanyl infusion and is on Precedex drip pulled his NGT overnight. KUB this morning showed improvements in gaseous distention of bowel. 09/16 Yesterday afternoon an NG tube was placed patient was noted to have tube feeds with possible aspiration.NGT placed this am, KUB pending. 09/17: no acute events overnight. tolerated cpap. back on rate overnight. this morning on trach collar. 09/18: prior history of constipation, now with diarrhea. otherwise, awaiting placement. 09/19: diarrhea improving. still awaiting placement. 09/20: still doing well. on trach collar this morning on my evaluation. insurance has not yet approved placement. 09/21: tired out on trach collar yesterday. placed intermittently on cpap. insurance denied LTAC. will work towards [id number]. 09/22: had [id number] today. insurance continues to request permanent surgical feeding access to go to LTAC. My medical opinion is that patient is clinically improving and tolerating DHT without complication, and could safely be fed through DHT for the coming weeks, and I anticipate his dysphagia to resolve as his strength improves. I do not see a clinical indication for permanent surgical gastric access. We also are not a rehab center, and he is not getting medically appropriate care for his level of medical need. He does not require ICU admission, and medically would be more appropriate for LTAC. 09/23: transferred to [facility]. doing well. tachycardic this morning. diltiazem changed from QID to q6hr for more even distribution. insurance company denied admission to LTAC. will continue to pursue this as an option. otherwise, OOB to chair daily. still working with speech. 09/24: did not sleep well overnight. agitated. awake most of the night. I removed stay sutures from trach this morning. 09/25: Received Haldol overnight, resting now. Not agitated. On PRVC/AC. CPAP trails to resume today. Somnolent but wakes up and follows commands 09/26: Continues to have large amount of tracheal secretions. Levaquin restarted sputum culture ordered. Chest x-ray is pending. Did not tolerate CPAP yesterday became tachycardic and hypoxic Subjective 09/27: Tolerated CPAP approximately 6-7 hours became tachypneic afterwards. Currently on full vent support FiO2 50%. Chest x-ray from yesterday shows bilateral pleural effusions/infiltrate right more than left. CT chest ordered cefepime added sputum culture is pending. More delirious at night, now with eyes open following commands EVENTS FROM 09/27/16 evening Patient was turned to left side for thoracentesis, he acutely desaturated to low 70s prior to starting the procedure. Patient was placed back in supine, bag and mask ventilation performed until sats came up to 98%. Patient was again partially turned to left side and thoracentesis was attempted. Even though ultrasound showed fluid, air was withdrawn into the syringe. Procedure was abandoned and patient was put in neutral position. Peak pressures on the vent increased and patient started desaturating to 70s indicating tension pneumothorax. The thoracentesis Angiocath was used for emergency decompression and bag and mask ventilation became easier. An emergency 8 Malagasy pigtail catheter was placed and connected to Pleur-evac. This had significant air leak but patient remained with low oxygen saturation in 70s. Additional 28 Malagasy chest tube was emergently placed with a gradual improvement in saturation to mid 80s. (Chest tube/Pigtail tray was not available immediately at the bedside , and the tech had to run to the [facility] to get the chest tube tray). Patient was placed back on PC/ACmechanical ventilation with low tidal volume. Post chest tube chest x-ray shows good reexpansion of the lung and good positioning of the chest tubes. But the left lung is collapsed with mediastinal shift to the left indicating bronchial obstruction probably from mucous plug. I attempted bronchoscopy with intubating bronchoscope available here at [place]. I was unable to suction out any mucus plugging, or visualize clearly. Patient was transferred to [facility] in [facility]. Dr. Espinoza performed therapeutic bronchoscopy with pediatric bronchoscope, and he was in able to clear a significant amount of secretion with reexpansion of lung. 09/28: Chest x-ray today shows right sided pneumothorax almost resolved. Good reexpansion of the left lung also bibasilar infiltrates seen. Sputum culture growing gram-negative rods. Patient is awake alert on full vent support. Levophed is being weaned currently on 4 mics per minute 09/29: Remains on mechanical ventilation via tracheostomy. Continues to have persistent air leak from right sided pigtail catheter as well as chest tube. Chest x-ray today shows slight increase in size of right pneumothorax. 09/30: Remains on mechanical ventilation via tracheostomy. Very small air leak noted in right sided chest tube. 10/01: Remains on mechanical ventilation via tracheostomy. Daily C Pap and T piece trials. Very small air leak noted. Decreased suction on right chest tube to -20 cm water pressure today. 10/02: Alert, breathing comfortably on vent. Continue weaning trials. 10/03: Continue daily SBTs and Dakin's dressing changes. 10/04: Awake and alert, following commands. Daily C Pap/T piece trials as tolerated. 10/05: Awake, alert, following commands. Persistent air leak in right chest tube noted. Tolerating tube feeds. Tolerates T piece during daytime. Significant respiratory secretions. Objective Vital Signs Date Time Temp Pulse Resp B/P Pulse Ox O2 Delivery O2 Flow Rate FiO2 10/05/16 14:00 90 10/05/16 12:00 98.3 17 118/71 93 10/05/16 09:00 T-piece 8.00 45 Intake and Output 10/04/16 10/04/16 10/05/16 08:00 16:00 00:00 Intake Total 1135 ml 678 ml 550 ml Output Total 1075 ml 1100 ml 1250 ml Balance 60 ml -422 ml -700 ml Result Diagram: 10/03/16 0625 10/05/16 0635 Imaging Last Impressions Abdomen X-Ray 09/15/16 0600 Signed Impressions: Service Date/Time: Thursday, September 15, 2016 03:16 - CONCLUSION: 1. Improved gaseous distention of bowel since September 14. Mild distention persists. 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 There is concentric mural thrombus. This aneurysm is not amenable to thrombin injection. Polo Moore Jr., MD Lung Scan- Nuclear Medicine 08/29/16 0000 Signed Impressions: Service Date/Time: Monday, August 29, 2016 10:20 - CONCLUSION: Low probability for pulmonary embolus. Lex Lopez MD Brain MRI 08/27/16 0000 Signed Impressions: Service Date/Time: August 15:13 - CONCLUSION: No evidence of acute infarct, hemorrhage, mass or edema. No findings to suggest significant anoxic injury. Kit Power MD Renal Ultrasound 08/25/16 0000 Signed Impressions: Service Date/Time: Wednesday, August 24, 2016 21:53 - CONCLUSION: 1. There is no hydronephrosis. Both kidneys demonstrate mild increased echotexture of the parenchyma suggesting medical renal disease. 2. Trace perihepatic free fluid and bilateral pleural effusions. Lex Malik MD Chest CT 08/25/16 0000 Signed Impressions: Service Date/Time: Thursday, August 25, 2016 21:20 - CONCLUSION: 1. Bilateral pneumonia and aspiration would be in the differential. There is dependent consolidation/atelectasis and small effusions of the bases as well. 2. Upper limits of normal to mildly enlarged mediastinal lymph nodes, most likely reactive. 3. Coronary artery calcification. 4. Right rib fractures, including acute fractures laterally of the third, fourth and fifth. There are old, healed fractures anteriorly of the right second and third ribs.. Lex Lopez MD Abdomen/Pelvis CT 08/25/16 0000 Signed Impressions: Service Date/Time: Thursday, August 25, 2016 20:20 - CONCLUSION: 1. Ventral hernia containing small bowel and with associated small bowel obstruction. The defect is broad; I believe the obstruction is probably related to scarring and/or adhesions within the hernia sac. I don't see a mass. 2. Distended stomach despite NG tube present. 3. Severe aortoiliac atherosclerosis. No aneurysm. Lex Lopez MD Objective Remarks GENERAL: Patient is 71 yo lying in bed in bed, on mechanical ventilation via tracheostomy, follows commands SKIN: Warm and dry. HEAD: Normocephalic. EYES: No scleral icterus. No injection or drainage. NECK: trachea midline. No JVD. Trach in place. Copious yellow thick secretions CARDIOVASCULAR: Regular rate and rhythm without murmurs, gallops, or rubs. RESPIRATORY: Breath sounds equal bilaterally, coarse rhonchi bilaterally predominantly at the bases, few coarse crackles. Intermittent air leak in right sided chest tube noted GASTROINTESTINAL: Abdomen soft, non-tender, nondistended. MUSCULOSKELETAL: No cyanosis, +1 edema. NEURO: Awake, follows commands. Grossly nonfocal A/P Assessment and Plan Neuro/Psych: Status post CPR 15 minutes Depression NOS Agitated Delirium --Neurochecks per ICU protocol --Zyprexa 10 mg q8h 09/27 (will reduce dose to total 20 mg gradually) --Melatonin q hs for sleep --prn breakthrough haldol for agitation --d/cd ativan due to paradoxical agitation. Continue Xanax 0.25 mg by mouth every 8 hours when necessary 09/26 --EEG 3/7 revealed mild to moderate encephalopathy. No epileptiform activity. --MRI brain 08/27 revealed no acute findings. --Calm 10/03 Cardiovascular: Septic shock Cardiac arrest status post CPR Elevated troponin History dyslipidemia History of hypertension PVD Possible femoral pseudoaneurysm Off Levophed Monitor HR and BP keep MAP>65mmHg Starting Cardizem 30 minutes by mouth 4 times a day on 09/30 for Tachyarrhythmia Cardiac arrest status post CPR. s/p aggressive fluid resuscitation. minimal troponin elevation following cardiac arrest noted Echo 2D revealed EF 35-40%. Moderate LVH. Mitral valve calcified. Mild TR. Pulmonary: Tension pneumothorax s/p chest tube 09/27 Complete left lung collapse from mucous plugging 09/27 HCAP with GNR Acute respiratory failure secondary to aspiration pneumonia- Reintubated 09/06 s/p Trach on 09/08 End-stage COPD. Oxygen dependent FEV1 28%, FVC 1.6. S/P Aspiration 09/15 Status post emergency chest tube 2 for tension pneumothorax (09/27) following right attempted thoracentesis, 28 Malagasy chest tube to underwater seal. Status post bronchoscopy for mucous plugging of the left main bronchus 09/27 s/p reintubation and bronch 09/06 mucous plugs in left main stem bronchus Continue with vent support keep sat >90%. PRVC. Daily C Pap trials, T piece as tolerated. Bronchodilators, Pulmicort twice a day Needs aggressive pulmonary rehab with LTAC. Continues to be very weak VQ scan low probability 08/29 ICU vent bundle, pulm toilet, trach care GI: Small bowel obstruction - resolved Upper GI bleed plus esophageal rule out aorto esophageal fistula History of Ashley esophagitis History of colonic polyps History of ventral hernia status post repair last by Dr. Roberts Diarrhea Continue tube feeds and advance to goal as tolerated. Continue Reglan 5mg IV Q8, Senna, Lactulose, Colace. having BM From a GI standpoint, use nasogastric access at this time. continue frequent speech eval for swallowing, once clinically improved. s/p EGD 09/09: Deformed pylorus/antrum, nodular mucosa-multiple biopsies taken esophagitis distal esophagus-biopsy unable to place PEG endoscopically due to hiatal hernia. CT abdomen/pelvis revealed possible small bowel obstruction at level of ventral hernia. Severe aortoiliac disease. Dr. Roberts/general surgery evaluated. Very poor surgical candidate this time. EGD 08/25 revealed esophageal nipple. Clots noted within the gastric contents without active bleeding. Protonix for GI prophylaxis, 40 mg IV q12 Hold Bowel regimen for diarrhea. jail nutrition plan: Feeding per DHT. the patient does not have a contraindication to replacement of DHT if it comes out accidentally. Continue speech/swallow eval and strengthening. I do think he will be strong enough to eat PO in the near future and will not medically require surgical feeding tube. Surgical feeding tube high risk given hernia. risks outweigh benefits. we have a defined long-term enteral feeding plan. Renal/: Acute kidney injury- resolved Hypernatremia History of bladder outlet obstruction Monitor renal function, I/O's, electrolytes replacement per protocol. Free water flushes 300ml Q6 monitor sodium level No hydronephrosis on CT abdomen/pelvis ID: New HCAP Severe sepsis UTI Fungemia Stenotrophomonas HCAP, s/p course of Levaquin 09/10 - 09/16 s/p course of micafungin for fungemia Restarted Levaquin 09/26 secondary to increased secretions send sputum culture, Added cefepime 09/27 ID following Pertinent cultures 09/26: Sputum Stenotrophomonas 09/08 Bronch: S. Maltophilia, 09/06 Bronch- S. Maltophilia, 09/03 - blood culture - no growth 09/02 - blood culture - no growth 08/27 - blood from central line -Ashley Glabrata 08/27 -arterial line blood - pending 08/26 - sputum -Serratia 08/25 - blood cultures 2 -Ashley 08/25 - urine -no growth 08/22 - blood cultures 2 - no growth 08/21 - urine - no growth 08/20 - blood cultures 2 - 1 out of 4 staph epi Endocrine: Chronic prednisone use secondary to COPD SSI for glycemic control as needed. Heme: s/p Acute blood loss anemia History of prostate cancer Status post 4 units PRBCs ands 2 units FFP on 08/24. Given one unit PRBCs 08/26, 1U 09/26 Additional 1 unit 09/28/16 Monitor CBC H/H stable. MSK: PT/OT evaluate and treat. Attempt up to chair daily with PT Access - peripheral IV's, PICC line placed 09/11 Prophylaxis - GI -Protonix 40 q12 - DVT - SCD/ heparin 5000 u Sq Q12- cleared by GI. Resumed heparin 09/30 Overall impression: Slow progress s/p cardiopulmonary arrest. Blair Espinoza MD Oct 05, 2016 14:59
--- NOTE | 2016-10-05 15:49 | RADRPT ---
EXAM DATE/TIME: 10/05/2016 15:04 [place] COMPARISON: CHEST SINGLE AP, October 01, 2016, 3:55. INDICATIONS : Short of breath, evaluate chest tube and pneumothorax MEDICAL HISTORY : Cardiovascular disease. Chronic obstructive pulmonary disease. SURGICAL HISTORY : tracheostomy ENCOUNTER: Subsequent ACUITY: 1 week PAIN SCORE: Non-responsive. LOCATION: Right chest FINDINGS: Lines and tubes are stable and not significantly changed. Tracheostomy tube is present in satisfactor y position. Right chest tube is in place. There is no pneumothorax for technique. Bibasilar opacities are present may be due to a combination of consolidation and or pleural effusion. There is also michelle vascular pulmonary edema not significantly changed. The rest of the examination has not changed. CONCLUSION: No appreciable change. Cari Camarillo MD on October 05, 2016 at 15:45 Board Certified Radiologist. This report was verified electronically.
[2016-10-05] MEDS: ALPRAZolam 0.25 MG TAB PO PRN (15:51)
[2016-10-05] MEDS: MELATONIN 5 MG TAB PO SCH (20:01)
[2016-10-05] MEDS ORDERED: SODIUM HYPOCHLORITE 0.125% 500 ML BTL TOPICAL PRN (21:00)
[2016-10-06] VITALS (14 sets, daily range): BP systolic 101–128; BP diastolic 58–80; PULSE 93–124; RESP 15–26; TEMP 97.7–99; O2SAT 92–100
[2016-10-06] MEDS: OLANZapine ODT 10 MG TAB PO SCH ×3 (00:54→16:17)
[2016-10-06] MEDS: oxyCODONE HCL ORAL CONC 20 MG/ML SYRINGE PO PRN ×4 (01:22→22:02)
[2016-10-06 03:50] LABS: HEMATOCRIT 27.4 % (39.0-51.0); MEAN CELL VOLUME 90.4 FL (80.0-100.0); MEAN CORPUSCULAR HEMOGLOBIN 31.1 PG (27.0-34.0); MEAN CORPUSCULAR HGB CONC 34.4 % (32.0-36.0); PLATELET COUNT 226 TH/MM3 (150-450); RED BLOOD COUNT 3.03 MIL/MM3 (4.50-5.90); RED CELL DISTRIBUTION WIDTH 16.3 % (11.6-17.2); REVIEW FLAG FINAL; WHITE BLOOD COUNT 9.6 TH/MM3 (4.0-11.0)
[2016-10-06] MEDS: INSULIN NovoLIN REGULAR SUPPLEMENTAL SCALE SQ SCH ×4 (05:52→23:27)
[2016-10-06] MEDS: NYSTATIN 100,000 U/GM PWD 15 GM BTL TOPICAL SCH ×3 (05:52→22:02)
[2016-10-06] MEDS: FREE WATER G-TUBE SCH ×4 (05:52→23:27)
[2016-10-06] MEDS: RESP: BUDESONIDE 0.5 MG/2 ML NEB NEB SCH ×2 (07:22→20:07)
[2016-10-06] MEDS: TAMSULOSIN HCL 0.4 MG CAP PO SCH (07:36)
[2016-10-06] MEDS: CHLORHEXIDINE GLUCONATE 0.12% 30 ML CUP SCH ×2 (08:00→20:13)
[2016-10-06] MEDS: PANTOPRAZOLE SODIUM 40 MG VIAL IV PUSH SCH ×2 (08:39→20:14)
[2016-10-06] MEDS: LACTULOSE SYRUP 20 GM/30 ML CUP PO SCH (08:39)
[2016-10-06] MEDS: LEVOFLOXACIN 750 MG TAB PO SCH (08:40)
[2016-10-06] MEDS: MULTIVITAMINS/MINERALS THERAPEUTIC TAB PO SCH (08:40)
[2016-10-06] MEDS: SENNOSIDES SYRUP 8.8 MG/5 ML CUP PO SCH (08:40)
[2016-10-06] MEDS: DOCUSATE SODIUM 100 MG/10 ML UDC PO SCH ×2 (08:40→20:14)
[2016-10-06] MEDS: DILTIAZEM HCL 30 MG TAB PO SCH ×4 (08:40→20:14)
[2016-10-06] MEDS: DOXAZOSIN MESYLATE 2 MG TAB PO SCH (08:40)
[2016-10-06] MEDS: METOCLOPRAMIDE HCL 10 MG/2 ML VIAL IV PUSH SCH ×3 (08:41→23:27)
[2016-10-06] MEDS: HEPARIN SODIUM - SQ 10,000 UNITS/ML VIAL SQ SCH ×2 (08:41→20:15)
[2016-10-06] MEDS: SODIUM CHLORIDE 0.9% FLUSH 10 ML FLUSH IV FLUSH SCH (08:42)
[2016-10-06] MEDS: SODIUM CHLORIDE 0.9% FLUSH 5 ML FLUSH IVF SCH (08:43)
[2016-10-06] MEDS: HYDROmorphone HCL PF 1 MG/ML VIAL IV PRN ×2 (09:07→23:26)
--- NOTE | 2016-10-06 16:19 | HHI.CCPN ---
Subjective Remarks/Hospital Course 08/24: 71 Year-old male with a medical history significant for COPD on home oxygen who was recently admitted with suspected sepsis/H And was initiated on IV antibiotics and steroids. He had recently been evaluated by GI and underwent EGD on 08/10/2016 and was found to have moderate esophagitis, mild gastritis with pathology subsequently showing Ashley esophagitis as well as colonoscopy on 08/11/2016 with polypectomy and ablation of polyp in ascending colon with hot snare. Patient has been dealing with constipation since his admission. Today when he was trying to have a bowel movement he suddenly became less responsive and then had a large emesis which resulted in aspiration and hemodynamic collapse. Patient initially had large volume emesis with dark maroon blood. CODE BLUE cardiac arrest code was activated. On my arrival patient was in bed CPR had been initiated. Significant gastric contents was still being suctioned out of his oral cavity. ACLS protocol was continued. Patient was intubated following vigorous suctioning of gastric contents from oral cavity as well as with placement of NG tube which is hooked up to suction and about 1.5 L of gastric contents being suctioned out which appeared to be dark maroon in color. Patient initially had a pulse when CODE BLUE was called and subsequently went in PEA arrest followed by asystole during ACLS and then V. fib for which he was defibrillated with 200 J 1, CPR/ACLS protocol was continued and patient eventually had return of spontaneous circulation after about 15 minutes of CPR/ACLS. Patient was transferred to [facility] and placed on mechanical ventilation. I emergently placed left femoral central line for central vascular access and he was started on Levophed for pressor support. 2 units of O- 1 crossmatch blood were ordered and transfused stat. He also received 1 L of normal saline bolus following return of spontaneous circulation. Stat labs were ordered. His hemoglobin on ABG done post resuscitation was 5.6. I did order Protonix 80 mg IV stat followed by 8 mg per hour IV infusion. Patient remained encephalopathic though was minimally responsive following transfer to the ICU. GI consult was requested and I spoke with Dr. Zamarripa at bedside on his arrival. History was obtained by reviewing records, discussion with family/ GI as well as nursing staff. According to patient's daughter he has not been doing well for the last few months in terms of his breathing and has been using his home oxygen more often. He gets extremely short of breath even with the least exertion. 08/25: Remains encephalopathic/ sedated, [facility]. Transiently off levophed last night however back to 11 mcg/min currently. Hgb up to 9.4 following 4 units PRBCs transfused last night. 08/26: Tmax 99. Some unresponsive on the ventilator. CT abdomen/pelvis less than revealed small bowel obstruction at site of ventral hernia. No further bleeding noted. Gastric output approximately 700 cc. No bowel movement. 08/27: Tmax 99.7. Currently afebrile. Positive BM overnight approximately 1 L according to RN. No blood noted. 100 cc from gastric tube overnight. Hemoglobin corrected a properly. Likely dilutional. Noted fungemia currently issue. Opens eyes to voice. 08/28: Tmax 99.1. No BMs overnight. Minimal gastric tube output. Hemoglobin stable 9.5. Opens eyes to voice. Not following commands. Appears with singultus this morning. 08/29: 20 beat run of wide complex tachycardia overnight. Noted potassium 3.2. This is been replaced. We'll recheck this afternoon. Circuit exchange yesterday. Patient tolerating pressure control ventilation much better than PRVC/AC ventilation is low probably VQ scan. Less FiO2 requirements. No BM past 24 hour. 08/30: Unable to wean ventilator. 08/31: Patient was extubated on 08/30 however became tachypneic with use of accessory muscles of respiration and required reintubation around 6:30 PM last night and was placed back on mechanical ventilation. Currently sedated, orally intubated on mechanical ventilation. Post intubation chest x-ray suggested fluid overload for which she was given Lasix 40 mg IV with good response having made about 2.5 L urine the last 7 hours. 09/01: Remains sedated, orally intubated on mechanical ventilation. Diuresing well with Lasix. Awaiting EGD in a.m. 09/02: Little progress. CXR clearing nicely. Continue diuresis, tolerate hypernatremia. 09/03: Good diuretic response. CRISTHIAN today with no valvar pathology. 09/04: Too weak to tolerate extubation. Will require trach. 09/05: Sedated, arousable, following commands. Tolerated C Pap trial for 9 hours yesterday with pressure support +10. Tolerating tube feeds. 09/06: Extubated yesterday. Chest x-ray reveals likely mucous plugging in left lung garcia. Currently on nonrebreather mask. Planning of insomnia and thick secretions that he is unable to cough up. 09/07 Patient s/p reintubation and bronch 09/06 mucous plugs in left main stem bronchus sedated with Diprivan and Fentanyl. Afebrile. For possible trach tomorrow. 09/08 No acute events overnight. Sedated with Diprivan and Fentanyl. Afebrile. For trach today. 09/09 No acute events overnight. Sedated and intubated. s/p trach yesterday for PEG tube placement today. 09/10 Patient remains sedated and on ventilator via trach. s/p EGD yesterday PEG tube couldn't be placed endoscopically due to hernia. Surgery consulted for J-tube placement. Afebrile. 09/11 No acute events overnight. Sedated with Diprivan, Fentanyl and intubated. Afebrile. Tolerating tube feeds. 09/12 Patient is off Diprivan remains on Fentanyl infusion tolerated CPAP trials for several hrs and TP's x 2 hrs yesterday now on TP with 50% FIO2. Afebrile. 09/13 Patient tolerated TP's all day yesterday placed on PRVC/AC mode overnight. TF held for high residuals. Afebrile. On Fentanyl infusion however he is awake, restless. 09/14 No acute events overnight. Tolerated TP's all day yesterday placed back on ventilator overnight. On Fentanyl infusion. Afebrile. Repeat KUB this morning showed ileus. 09/15 Patient is off fentanyl infusion and is on Precedex drip pulled his NGT overnight. KUB this morning showed improvements in gaseous distention of bowel. 09/16 Yesterday afternoon an NG tube was placed patient was noted to have tube feeds with possible aspiration.NGT placed this am, KUB pending. 09/17: no acute events overnight. tolerated cpap. back on rate overnight. this morning on trach collar. 09/18: prior history of constipation, now with diarrhea. otherwise, awaiting placement. 09/19: diarrhea improving. still awaiting placement. 09/20: still doing well. on trach collar this morning on my evaluation. insurance has not yet approved placement. 09/21: tired out on trach collar yesterday. placed intermittently on cpap. insurance denied LTAC. will work towards [id number]. 09/22: had [id number] today. insurance continues to request permanent surgical feeding access to go to LTAC. My medical opinion is that patient is clinically improving and tolerating DHT without complication, and could safely be fed through DHT for the coming weeks, and I anticipate his dysphagia to resolve as his strength improves. I do not see a clinical indication for permanent surgical gastric access. We also are not a rehab center, and he is not getting medically appropriate care for his level of medical need. He does not require ICU admission, and medically would be more appropriate for LTAC. 09/23: transferred to [facility]. doing well. tachycardic this morning. diltiazem changed from QID to q6hr for more even distribution. insurance company denied admission to LTAC. will continue to pursue this as an option. otherwise, OOB to chair daily. still working with speech. 09/24: did not sleep well overnight. agitated. awake most of the night. I removed stay sutures from trach this morning. 09/25: Received Haldol overnight, resting now. Not agitated. On PRVC/AC. CPAP trails to resume today. Somnolent but wakes up and follows commands 09/26: Continues to have large amount of tracheal secretions. Levaquin restarted sputum culture ordered. Chest x-ray is pending. Did not tolerate CPAP yesterday became tachycardic and hypoxic Subjective 09/27: Tolerated CPAP approximately 6-7 hours became tachypneic afterwards. Currently on full vent support FiO2 50%. Chest x-ray from yesterday shows bilateral pleural effusions/infiltrate right more than left. CT chest ordered cefepime added sputum culture is pending. More delirious at night, now with eyes open following commands EVENTS FROM 09/27/16 evening Patient was turned to left side for thoracentesis, he acutely desaturated to low 70s prior to starting the procedure. Patient was placed back in supine, bag and mask ventilation performed until sats came up to 98%. Patient was again partially turned to left side and thoracentesis was attempted. Even though ultrasound showed fluid, air was withdrawn into the syringe. Procedure was abandoned and patient was put in neutral position. Peak pressures on the vent increased and patient started desaturating to 70s indicating tension pneumothorax. The thoracentesis Angiocath was used for emergency decompression and bag and mask ventilation became easier. An emergency 8 Pakistani pigtail catheter was placed and connected to Pleur-evac. This had significant air leak but patient remained with low oxygen saturation in 70s. Additional 28 Pakistani chest tube was emergently placed with a gradual improvement in saturation to mid 80s. (Chest tube/Pigtail tray was not available immediately at the bedside , and the tech had to run to the [facility] to get the chest tube tray). Patient was placed back on PC/ACmechanical ventilation with low tidal volume. Post chest tube chest x-ray shows good reexpansion of the lung and good positioning of the chest tubes. But the left lung is collapsed with mediastinal shift to the left indicating bronchial obstruction probably from mucous plug. I attempted bronchoscopy with intubating bronchoscope available here at [place]. I was unable to suction out any mucus plugging, or visualize clearly. Patient was transferred to [facility] in [facility]. Dr. Espinoza performed therapeutic bronchoscopy with pediatric bronchoscope, and he was in able to clear a significant amount of secretion with reexpansion of lung. 09/28: Chest x-ray today shows right sided pneumothorax almost resolved. Good reexpansion of the left lung also bibasilar infiltrates seen. Sputum culture growing gram-negative rods. Patient is awake alert on full vent support. Levophed is being weaned currently on 4 mics per minute 09/29: Remains on mechanical ventilation via tracheostomy. Continues to have persistent air leak from right sided pigtail catheter as well as chest tube. Chest x-ray today shows slight increase in size of right pneumothorax. 09/30: Remains on mechanical ventilation via tracheostomy. Very small air leak noted in right sided chest tube. 10/01: Remains on mechanical ventilation via tracheostomy. Daily C Pap and T piece trials. Very small air leak noted. Decreased suction on right chest tube to -20 cm water pressure today. 10/02: Alert, breathing comfortably on vent. Continue weaning trials. 10/03: Continue daily SBTs and Dakin's dressing changes. 10/04: Awake and alert, following commands. Daily C Pap/T piece trials as tolerated. 10/05: Awake, alert, following commands. Persistent air leak in right chest tube noted. Tolerating tube feeds. Tolerates T piece during daytime. Significant respiratory secretions. 10/06: Objective Vital Signs Date Time Temp Pulse Resp B/P Pulse Ox O2 Delivery O2 Flow Rate FiO2 10/06/16 14:00 105 10/06/16 12:00 99.0 17 106/72 98 10/06/16 07:22 T-piece 40 10/05/16 20:46 6.00 Intake and Output 10/05/16 10/05/16 10/06/16 08:00 16:00 00:00 Intake Total 1203 ml 660 ml 847 ml Output Total 900 ml 508 ml 750 ml Balance 303 ml 152 ml 97 ml Result Diagram: 10/06/16 0330 10/05/16 0635 Imaging Last Impressions Abdomen X-Ray 09/15/16 0600 Signed Impressions: Service Date/Time: Thursday, September 15, 2016 03:16 - CONCLUSION: 1. Improved gaseous distention of bowel since September 14. Mild distention persists. 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 There is concentric mural thrombus. This aneurysm is not amenable to thrombin injection. Polo Moore Jr., MD Lung Scan- Nuclear Medicine 08/29/16 0000 Signed Impressions: Service Date/Time: Monday, August 29, 2016 10:20 - CONCLUSION: Low probability for pulmonary embolus. Lex Lopez MD Brain MRI 08/27/16 0000 Signed Impressions: Service Date/Time: August 15:13 - CONCLUSION: No evidence of acute infarct, hemorrhage, mass or edema. No findings to suggest significant anoxic injury. Kit Power MD Renal Ultrasound 08/25/16 0000 Signed Impressions: Service Date/Time: Wednesday, August 24, 2016 21:53 - CONCLUSION: 1. There is no hydronephrosis. Both kidneys demonstrate mild increased echotexture of the parenchyma suggesting medical renal disease. 2. Trace perihepatic free fluid and bilateral pleural effusions. Lex Malik MD Chest CT 08/25/16 0000 Signed Impressions: Service Date/Time: Thursday, August 25, 2016 21:20 - CONCLUSION: 1. Bilateral pneumonia and aspiration would be in the differential. There is dependent consolidation/atelectasis and small effusions of the bases as well. 2. Upper limits of normal to mildly enlarged mediastinal lymph nodes, most likely reactive. 3. Coronary artery calcification. 4. Right rib fractures, including acute fractures laterally of the third, fourth and fifth. There are old, healed fractures anteriorly of the right second and third ribs.. Lex Lopez MD Abdomen/Pelvis CT 08/25/16 0000 Signed Impressions: Service Date/Time: Thursday, August 25, 2016 20:20 - CONCLUSION: 1. Ventral hernia containing small bowel and with associated small bowel obstruction. The defect is broad; I believe the obstruction is probably related to scarring and/or adhesions within the hernia sac. I don't see a mass. 2. Distended stomach despite NG tube present. 3. Severe aortoiliac atherosclerosis. No aneurysm. Lex Lopez MD Objective Remarks GENERAL: Patient is 71 yo lying in bed in bed, on trach collar via tracheostomy , follows commands SKIN: Warm and dry. HEAD: Normocephalic. EYES: No scleral icterus. No injection or drainage. NECK: trachea midline. No JVD. Trach in place. Copious yellow thick secretions CARDIOVASCULAR: Regular rate and rhythm without murmurs, gallops, or rubs. RESPIRATORY: Breath sounds equal bilaterally, coarse rhonchi bilaterally predominantly at the bases, few coarse crackles. no air leak noted today. GASTROINTESTINAL: Abdomen soft, non-tender, nondistended. MUSCULOSKELETAL: No cyanosis, +1 edema. NEURO: Awake, follows commands. Grossly nonfocal A/P Assessment and Plan Neuro/Psych: Status post CPR 15 minutes Depression NOS Agitated Delirium --Neurochecks per ICU protocol --Zyprexa 10 mg q8h 09/27 (will reduce dose to total 20 mg gradually) --Melatonin q hs for sleep --prn breakthrough haldol for agitation --d/cd ativan due to paradoxical agitation. Continue Xanax 0.25 mg by mouth every 8 hours when necessary 09/26 --EEG 08/25 revealed mild to moderate encephalopathy. No epileptiform activity. --MRI brain 08/27 revealed no acute findings. --Calm 10/03 Cardiovascular: Septic shock Cardiac arrest status post CPR Elevated troponin History dyslipidemia History of hypertension PVD Possible femoral pseudoaneurysm Off Levophed Monitor HR and BP keep MAP>65mmHg Starting Cardizem 30 minutes by mouth 4 times a day on 09/30 for Tachyarrhythmia Cardiac arrest status post CPR. s/p aggressive fluid resuscitation. minimal troponin elevation following cardiac arrest noted Echo 2D revealed EF 35-40%. Moderate LVH. Mitral valve calcified. Mild TR. Pulmonary: Tension pneumothorax s/p chest tube 09/27 Complete left lung collapse from mucous plugging 09/27 HCAP with GNR Acute respiratory failure secondary to aspiration pneumonia- Reintubated 09/06 s/p Trach on 09/08 End-stage COPD. Oxygen dependent FEV1 28%, FVC 1.6. S/P Aspiration 09/15 Status post emergency chest tube 2 for tension pneumothorax (09/27) following right attempted thoracentesis, 28 Pakistani chest tube to water seal. Status post bronchoscopy for mucous plugging of the left main bronchus 09/27 s/p reintubation and bronch 09/06 mucous plugs in left main stem bronchus Continue with vent support keep sat >90%. PRVC. Daily C Pap trials, T piece as tolerated. Bronchodilators, Pulmicort twice a day Needs aggressive pulmonary rehab with LTAC. Continues to be very weak VQ scan low probability 08/29 ICU vent bundle, pulm toilet, trach care GI: Small bowel obstruction - resolved Upper GI bleed plus esophageal rule out aorto esophageal fistula History of Ashley esophagitis History of colonic polyps History of ventral hernia status post repair last by Dr. Roberts Diarrhea Continue tube feeds and advance to goal as tolerated. Continue Reglan 5mg IV Q8, Senna, Lactulose, Colace. having BM From a GI standpoint, use nasogastric access at this time. continue frequent speech eval for swallowing, once clinically improved. s/p EGD 09/09: Deformed pylorus/antrum, nodular mucosa-multiple biopsies taken esophagitis distal esophagus-biopsy unable to place PEG endoscopically due to hiatal hernia. CT abdomen/pelvis revealed possible small bowel obstruction at level of ventral hernia. Severe aortoiliac disease. Dr. Roberts/general surgery evaluated. Very poor surgical candidate this time. EGD 08/25 revealed esophageal nipple. Clots noted within the gastric contents without active bleeding. Protonix for GI prophylaxis, 40 mg IV q12 Hold Bowel regimen for diarrhea. USP nutrition plan: Feeding per DHT. the patient does not have a contraindication to replacement of DHT if it comes out accidentally. Continue speech/swallow eval and strengthening. I do think he will be strong enough to eat PO in the near future and will not medically require surgical feeding tube. Surgical feeding tube high risk given hernia. risks outweigh benefits. we have a defined long-term enteral feeding plan. Renal/: Acute kidney injury- resolved Hypernatremia History of bladder outlet obstruction Monitor renal function, I/O's, electrolytes replacement per protocol. Free water flushes 300ml Q6 monitor sodium level No hydronephrosis on CT abdomen/pelvis ID: New HCAP Severe sepsis UTI Fungemia Stenotrophomonas HCAP, s/p course of Levaquin 09/10 - 09/16 s/p course of micafungin for fungemia Restarted Levaquin 09/26 secondary to increased secretions send sputum culture, Added cefepime 09/27 ID following Pertinent cultures 09/26: Sputum Stenotrophomonas 09/08 Bronch: S. Maltophilia, 09/06 Bronch- S. Maltophilia, 09/03 - blood culture - no growth 09/02 - blood culture - no growth 08/27 - blood from central line -Ashley Glabrata 08/27 -arterial line blood - pending 08/26 - sputum -Serratia 08/25 - blood cultures 2 -Ashley 08/25 - urine -no growth 08/22 - blood cultures 2 - no growth 08/21 - urine - no growth 08/20 - blood cultures 2 - 1 out of 4 staph epi Endocrine: Chronic prednisone use secondary to COPD SSI for glycemic control as needed. Heme: s/p Acute blood loss anemia History of prostate cancer Status post 4 units PRBCs ands 2 units FFP on 08/24. Given one unit PRBCs 08/26, 1U 09/26 Additional 1 unit 09/28/16 Monitor CBC H/H stable. MSK: PT/OT evaluate and treat. Attempt up to chair daily with PT Access - peripheral IV's, PICC line placed 09/11 Prophylaxis - GI -Protonix 40 q12 - DVT - SCD/ heparin 5000 u Sq Q12- cleared by GI. Resumed heparin 09/30 Overall impression: Slow progress s/p cardiopulmonary arrest. Papi Keating MD Oct 06, 2016 16:19
[2016-10-06] MEDS: MELATONIN 5 MG TAB PO SCH (20:14)
[2016-10-06] MEDS: ALPRAZolam 0.25 MG TAB PO PRN (20:16)
[2016-10-07] VITALS (14 sets, daily range): BP systolic 107–117; BP diastolic 56–79; PULSE 88–112; RESP 15–21; TEMP 97.7–99; O2SAT 92–98
[2016-10-07] MEDS: OLANZapine ODT 10 MG TAB PO SCH ×2 (00:52→08:13)
[2016-10-07] MEDS: NYSTATIN 100,000 U/GM PWD 15 GM BTL TOPICAL SCH ×3 (06:00→21:09)
[2016-10-07] MEDS: INSULIN NovoLIN REGULAR SUPPLEMENTAL SCALE SQ SCH ×3 (06:00→18:00)
[2016-10-07] MEDS: FREE WATER G-TUBE SCH ×3 (06:00→17:53)
[2016-10-07] MEDS: LACTULOSE SYRUP 20 GM/30 ML CUP PO SCH (08:10)
[2016-10-07] MEDS: SENNOSIDES SYRUP 8.8 MG/5 ML CUP PO SCH (08:10)
[2016-10-07] MEDS: DOCUSATE SODIUM 100 MG/10 ML UDC PO SCH ×2 (08:10→20:30)
[2016-10-07] MEDS: CHLORHEXIDINE GLUCONATE 0.12% 30 ML CUP SCH ×2 (08:10→20:04)
[2016-10-07] MEDS: HEPARIN SODIUM - SQ 10,000 UNITS/ML VIAL SQ SCH ×2 (08:11→20:30)
[2016-10-07] MEDS: METOCLOPRAMIDE HCL 10 MG/2 ML VIAL IV PUSH SCH ×2 (08:12→15:35)
[2016-10-07] MEDS: LEVOFLOXACIN 750 MG TAB PO SCH (08:13)
[2016-10-07] MEDS: MULTIVITAMINS/MINERALS THERAPEUTIC TAB PO SCH (08:13)
[2016-10-07] MEDS: DILTIAZEM HCL 30 MG TAB PO SCH ×4 (08:13→20:30)
[2016-10-07] MEDS: DOXAZOSIN MESYLATE 2 MG TAB PO SCH (08:13)
[2016-10-07] MEDS: SODIUM CHLORIDE 0.9% FLUSH 10 ML FLUSH IV FLUSH SCH (08:14)
[2016-10-07] MEDS: TAMSULOSIN HCL 0.4 MG CAP PO SCH (08:14)
[2016-10-07] MEDS: SODIUM CHLORIDE 0.9% FLUSH 5 ML FLUSH IVF SCH (08:14)
[2016-10-07] MEDS: PANTOPRAZOLE SODIUM 40 MG VIAL IV PUSH SCH ×2 (08:14→20:29)
[2016-10-07] MEDS: oxyCODONE HCL ORAL CONC 20 MG/ML SYRINGE PO PRN (08:44)
[2016-10-07] MEDS: HYDROmorphone HCL PF 1 MG/ML VIAL IV PRN ×2 (08:45→15:35)
--- NOTE | 2016-10-07 09:08 | RADRPT ---
EXAM DATE/TIME: 10/07/2016 08:18 [place] COMPARISON: CHEST SINGLE AP, October 05, 2016, 15:04. INDICATIONS : Chest tube on water seal. MEDICAL HISTORY : Cardiovascular disease. Hypertension. Chronic obstructive pulmonary disease.Ulcers;GERD; Prostate can cer. SURGICAL HISTORY : Appendectomy. Hernia repair. ENCOUNTER: Subsequent ACUITY: 2 weeks PAIN SCORE: 0/10 LOCATION: Bilateral chest FINDINGS: Right chest tube unchanged in position. No evidence pneumothorax. Tracheostomy, gastric tube, and P ICC line are stable in appearance. Bilateral pleural effusions, left greater than right and consolid ation in the left lower lung is stable in appearance. CONCLUSION: No evidence of pneumothorax. Stable position right chest tube. Stable bilateral pleural effusions a nd left lower lobe consolidation. Polo Saunders MD on October 07, 2016 at 9:05 Board Certified Radiologist. This report was verified electronically.
--- NOTE | 2016-10-07 10:02 | HHI.CCPN ---
Subjective Remarks/Hospital Course 08/24: 71 Year-old male with a medical history significant for COPD on home oxygen who was recently admitted with suspected sepsis/H And was initiated on IV antibiotics and steroids. He had recently been evaluated by GI and underwent EGD on 08/10/2016 and was found to have moderate esophagitis, mild gastritis with pathology subsequently showing Ashley esophagitis as well as colonoscopy on 08/11/2016 with polypectomy and ablation of polyp in ascending colon with hot snare. Patient has been dealing with constipation since his admission. Today when he was trying to have a bowel movement he suddenly became less responsive and then had a large emesis which resulted in aspiration and hemodynamic collapse. Patient initially had large volume emesis with dark maroon blood. CODE BLUE cardiac arrest code was activated. On my arrival patient was in bed CPR had been initiated. Significant gastric contents was still being suctioned out of his oral cavity. ACLS protocol was continued. Patient was intubated following vigorous suctioning of gastric contents from oral cavity as well as with placement of NG tube which is hooked up to suction and about 1.5 L of gastric contents being suctioned out which appeared to be dark maroon in color. Patient initially had a pulse when CODE BLUE was called and subsequently went in PEA arrest followed by asystole during ACLS and then V. fib for which he was defibrillated with 200 J 1, CPR/ACLS protocol was continued and patient eventually had return of spontaneous circulation after about 15 minutes of CPR/ACLS. Patient was transferred to [facility] and placed on mechanical ventilation. I emergently placed left femoral central line for central vascular access and he was started on Levophed for pressor support. 2 units of O- 1 crossmatch blood were ordered and transfused stat. He also received 1 L of normal saline bolus following return of spontaneous circulation. Stat labs were ordered. His hemoglobin on ABG done post resuscitation was 5.6. I did order Protonix 80 mg IV stat followed by 8 mg per hour IV infusion. Patient remained encephalopathic though was minimally responsive following transfer to the ICU. GI consult was requested and I spoke with Dr. Zamarripa at bedside on his arrival. History was obtained by reviewing records, discussion with family/ GI as well as nursing staff. According to patient's daughter he has not been doing well for the last few months in terms of his breathing and has been using his home oxygen more often. He gets extremely short of breath even with the least exertion. 08/25: Remains encephalopathic/ sedated, [facility]. Transiently off levophed last night however back to 11 mcg/min currently. Hgb up to 9.4 following 4 units PRBCs transfused last night. 08/26: Tmax 99. Some unresponsive on the ventilator. CT abdomen/pelvis less than revealed small bowel obstruction at site of ventral hernia. No further bleeding noted. Gastric output approximately 700 cc. No bowel movement. 08/27: Tmax 99.7. Currently afebrile. Positive BM overnight approximately 1 L according to RN. No blood noted. 100 cc from gastric tube overnight. Hemoglobin corrected a properly. Likely dilutional. Noted fungemia currently issue. Opens eyes to voice. 08/28: Tmax 99.1. No BMs overnight. Minimal gastric tube output. Hemoglobin stable 9.5. Opens eyes to voice. Not following commands. Appears with singultus this morning. 08/29: 20 beat run of wide complex tachycardia overnight. Noted potassium 3.2. This is been replaced. We'll recheck this afternoon. Circuit exchange yesterday. Patient tolerating pressure control ventilation much better than PRVC/AC ventilation is low probably VQ scan. Less FiO2 requirements. No BM past 24 hour. 08/30: Unable to wean ventilator. 08/31: Patient was extubated on 08/30 however became tachypneic with use of accessory muscles of respiration and required reintubation around 6:30 PM last night and was placed back on mechanical ventilation. Currently sedated, orally intubated on mechanical ventilation. Post intubation chest x-ray suggested fluid overload for which she was given Lasix 40 mg IV with good response having made about 2.5 L urine the last 7 hours. 09/01: Remains sedated, orally intubated on mechanical ventilation. Diuresing well with Lasix. Awaiting EGD in a.m. 09/02: Little progress. CXR clearing nicely. Continue diuresis, tolerate hypernatremia. 09/03: Good diuretic response. CRISTHIAN today with no valvar pathology. 09/04: Too weak to tolerate extubation. Will require trach. 09/05: Sedated, arousable, following commands. Tolerated C Pap trial for 9 hours yesterday with pressure support +10. Tolerating tube feeds. 09/06: Extubated yesterday. Chest x-ray reveals likely mucous plugging in left lung garcia. Currently on nonrebreather mask. Planning of insomnia and thick secretions that he is unable to cough up. 09/07 Patient s/p reintubation and bronch 09/06 mucous plugs in left main stem bronchus sedated with Diprivan and Fentanyl. Afebrile. For possible trach tomorrow. 09/08 No acute events overnight. Sedated with Diprivan and Fentanyl. Afebrile. For trach today. 09/09 No acute events overnight. Sedated and intubated. s/p trach yesterday for PEG tube placement today. 09/10 Patient remains sedated and on ventilator via trach. s/p EGD yesterday PEG tube couldn't be placed endoscopically due to hernia. Surgery consulted for J-tube placement. Afebrile. 09/11 No acute events overnight. Sedated with Diprivan, Fentanyl and intubated. Afebrile. Tolerating tube feeds. 09/12 Patient is off Diprivan remains on Fentanyl infusion tolerated CPAP trials for several hrs and TP's x 2 hrs yesterday now on TP with 50% FIO2. Afebrile. 09/13 Patient tolerated TP's all day yesterday placed on PRVC/AC mode overnight. TF held for high residuals. Afebrile. On Fentanyl infusion however he is awake, restless. 09/14 No acute events overnight. Tolerated TP's all day yesterday placed back on ventilator overnight. On Fentanyl infusion. Afebrile. Repeat KUB this morning showed ileus. 09/15 Patient is off fentanyl infusion and is on Precedex drip pulled his NGT overnight. KUB this morning showed improvements in gaseous distention of bowel. 09/16 Yesterday afternoon an NG tube was placed patient was noted to have tube feeds with possible aspiration.NGT placed this am, KUB pending. 09/17: no acute events overnight. tolerated cpap. back on rate overnight. this morning on trach collar. 09/18: prior history of constipation, now with diarrhea. otherwise, awaiting placement. 09/19: diarrhea improving. still awaiting placement. 09/20: still doing well. on trach collar this morning on my evaluation. insurance has not yet approved placement. 09/21: tired out on trach collar yesterday. placed intermittently on cpap. insurance denied LTAC. will work towards [id number]. 09/22: had [id number] today. insurance continues to request permanent surgical feeding access to go to LTAC. My medical opinion is that patient is clinically improving and tolerating DHT without complication, and could safely be fed through DHT for the coming weeks, and I anticipate his dysphagia to resolve as his strength improves. I do not see a clinical indication for permanent surgical gastric access. We also are not a rehab center, and he is not getting medically appropriate care for his level of medical need. He does not require ICU admission, and medically would be more appropriate for LTAC. 09/23: transferred to [facility]. doing well. tachycardic this morning. diltiazem changed from QID to q6hr for more even distribution. insurance company denied admission to LTAC. will continue to pursue this as an option. otherwise, OOB to chair daily. still working with speech. 09/24: did not sleep well overnight. agitated. awake most of the night. I removed stay sutures from trach this morning. 09/25: Received Haldol overnight, resting now. Not agitated. On PRVC/AC. CPAP trails to resume today. Somnolent but wakes up and follows commands 09/26: Continues to have large amount of tracheal secretions. Levaquin restarted sputum culture ordered. Chest x-ray is pending. Did not tolerate CPAP yesterday became tachycardic and hypoxic Subjective 09/27: Tolerated CPAP approximately 6-7 hours became tachypneic afterwards. Currently on full vent support FiO2 50%. Chest x-ray from yesterday shows bilateral pleural effusions/infiltrate right more than left. CT chest ordered cefepime added sputum culture is pending. More delirious at night, now with eyes open following commands EVENTS FROM 09/27/16 evening Patient was turned to left side for thoracentesis, he acutely desaturated to low 70s prior to starting the procedure. Patient was placed back in supine, bag and mask ventilation performed until sats came up to 98%. Patient was again partially turned to left side and thoracentesis was attempted. Even though ultrasound showed fluid, air was withdrawn into the syringe. Procedure was abandoned and patient was put in neutral position. Peak pressures on the vent increased and patient started desaturating to 70s indicating tension pneumothorax. The thoracentesis Angiocath was used for emergency decompression and bag and mask ventilation became easier. An emergency 8 Tunisian pigtail catheter was placed and connected to Pleur-evac. This had significant air leak but patient remained with low oxygen saturation in 70s. Additional 28 Tunisian chest tube was emergently placed with a gradual improvement in saturation to mid 80s. (Chest tube/Pigtail tray was not available immediately at the bedside , and the tech had to run to the [facility] to get the chest tube tray). Patient was placed back on PC/ACmechanical ventilation with low tidal volume. Post chest tube chest x-ray shows good reexpansion of the lung and good positioning of the chest tubes. But the left lung is collapsed with mediastinal shift to the left indicating bronchial obstruction probably from mucous plug. I attempted bronchoscopy with intubating bronchoscope available here at [place]. I was unable to suction out any mucus plugging, or visualize clearly. Patient was transferred to [facility] in [facility]. Dr. Espinoza performed therapeutic bronchoscopy with pediatric bronchoscope, and he was in able to clear a significant amount of secretion with reexpansion of lung. 09/28: Chest x-ray today shows right sided pneumothorax almost resolved. Good reexpansion of the left lung also bibasilar infiltrates seen. Sputum culture growing gram-negative rods. Patient is awake alert on full vent support. Levophed is being weaned currently on 4 mics per minute 09/29: Remains on mechanical ventilation via tracheostomy. Continues to have persistent air leak from right sided pigtail catheter as well as chest tube. Chest x-ray today shows slight increase in size of right pneumothorax. 09/30: Remains on mechanical ventilation via tracheostomy. Very small air leak noted in right sided chest tube. 10/01: Remains on mechanical ventilation via tracheostomy. Daily C Pap and T piece trials. Very small air leak noted. Decreased suction on right chest tube to -20 cm water pressure today. 10/02: Alert, breathing comfortably on vent. Continue weaning trials. 10/03: Continue daily SBTs and Dakin's dressing changes. 10/04: Awake and alert, following commands. Daily C Pap/T piece trials as tolerated. 10/05: Awake, alert, following commands. Persistent air leak in right chest tube noted. Tolerating tube feeds. Tolerates T piece during daytime. Significant respiratory secretions. 10/07: doing well. on trach collar x 48h. no air leak. cxr stable. minimal chest tube output. Objective Vital Signs Date Time Temp Pulse Resp B/P Pulse Ox O2 Delivery O2 Flow Rate FiO2 10/07/16 09:40 16 10/07/16 06:00 100 10/07/16 04:00 98.5 113/79 97 10/06/16 20:12 T-piece 6.00 35 Intake and Output 10/06/16 10/06/16 10/07/16 08:00 16:00 00:00 Intake Total 1108 ml 747 ml 673 ml Output Total 1150 ml 950 ml 2100 ml Balance -42 ml -203 ml -1427 ml Result Diagram: 10/06/16 0330 10/05/16 0635 Imaging Last Impressions Abdomen X-Ray 09/15/16 0600 Signed Impressions: Service Date/Time: Thursday, September 15, 2016 03:16 - CONCLUSION: 1. Improved gaseous distention of bowel since September 14. Mild distention persists. 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 There is concentric mural thrombus. This aneurysm is not amenable to thrombin injection. Polo Moore Jr., MD Lung Scan- Nuclear Medicine 08/29/16 0000 Signed Impressions: Service Date/Time: Monday, August 29, 2016 10:20 - CONCLUSION: Low probability for pulmonary embolus. Lex Lopez MD Brain MRI 08/27/16 0000 Signed Impressions: Service Date/Time: August 15:13 - CONCLUSION: No evidence of acute infarct, hemorrhage, mass or edema. No findings to suggest significant anoxic injury. Kit Power MD Renal Ultrasound 08/25/16 0000 Signed Impressions: Service Date/Time: Wednesday, August 24, 2016 21:53 - CONCLUSION: 1. There is no hydronephrosis. Both kidneys demonstrate mild increased echotexture of the parenchyma suggesting medical renal disease. 2. Trace perihepatic free fluid and bilateral pleural effusions. Lex Malik MD Chest CT 08/25/16 0000 Signed Impressions: Service Date/Time: Thursday, August 25, 2016 21:20 - CONCLUSION: 1. Bilateral pneumonia and aspiration would be in the differential. There is dependent consolidation/atelectasis and small effusions of the bases as well. 2. Upper limits of normal to mildly enlarged mediastinal lymph nodes, most likely reactive. 3. Coronary artery calcification. 4. Right rib fractures, including acute fractures laterally of the third, fourth and fifth. There are old, healed fractures anteriorly of the right second and third ribs.. Lex Lopez MD Abdomen/Pelvis CT 08/25/16 Signed Impressions: Service Date/Time: Thursday, August 25, 2016 20:20 - CONCLUSION: 1. Ventral hernia containing small bowel and with associated small bowel obstruction. The defect is broad; I believe the obstruction is probably related to scarring and/or adhesions within the hernia sac. I don't see a mass. 2. Distended stomach despite NG tube present. 3. Severe aortoiliac atherosclerosis. No aneurysm. Lex Lopez MD Objective Remarks GENERAL: Patient is 71 yo lying in bed in bed, on trach collar via tracheostomy , follows commands SKIN: Warm and dry. HEAD: Normocephalic. EYES: No scleral icterus. No injection or drainage. NECK: trachea midline. No JVD. Trach in place. Copious yellow thick secretions CARDIOVASCULAR: Regular rate and rhythm without murmurs, gallops, or rubs. RESPIRATORY: Breath sounds equal bilaterally, coarse rhonchi bilaterally predominantly at the bases, few coarse crackles. no air leak noted today. GASTROINTESTINAL: Abdomen soft, non-tender, nondistended. MUSCULOSKELETAL: No cyanosis, +1 edema. NEURO: Awake, follows commands. Grossly nonfocal A/P Assessment and Plan Neuro/Psych: Status post CPR 15 minutes Depression NOS Agitated Delirium --Neurochecks per ICU protocol --decrease to Zyprexa 5 mg q8h --Melatonin q hs for sleep --prn breakthrough haldol for agitation --d/cd ativan due to paradoxical agitation. Continue Xanax 0.25 mg by mouth every 8 hours when necessary 09/26 --EEG 08/25 revealed mild to moderate encephalopathy. No epileptiform activity. --MRI brain 08/27 revealed no acute findings. --Calm 10/03 Cardiovascular: Cardiac arrest status post CPR History dyslipidemia History of hypertension PVD Off Levophed Monitor HR and BP keep MAP>65mmHg Starting Cardizem 30 minutes by mouth 4 times a day on 09/30 for Tachyarrhythmia Cardiac arrest status post CPR. s/p aggressive fluid resuscitation. minimal troponin elevation following cardiac arrest noted Echo 2D revealed EF 35-40%. Moderate LVH. Mitral valve calcified. Mild TR. Pulmonary: Tension pneumothorax s/p chest tube 09/27 Complete left lung collapse from mucous plugging 09/27 HCAP with GNR Acute respiratory failure secondary to aspiration pneumonia- Reintubated 09/06 s/p Trach on 09/08 End-stage COPD. Oxygen dependent FEV1 28%, FVC 1.6. S/P Aspiration 09/15 Status post emergency chest tube 2 for tension pneumothorax (09/27) following right attempted thoracentesis, 28 Tunisian chest tube to water seal. Status post bronchoscopy for mucous plugging of the left main bronchus 09/27 s/p reintubation and bronch 09/06 mucous plugs in left main stem bronchus T piece as tolerated. Bronchodilators, Pulmicort twice a day Needs aggressive pulmonary rehab with LTAC. Continues to be very weak VQ scan low probability 08/29 ICU vent bundle, pulm toilet, trach care --d/c chest tube today -- AM CXR GI: Small bowel obstruction - resolved Upper GI bleed plus esophageal rule out aorto esophageal fistula History of Ashley esophagitis History of colonic polyps History of ventral hernia status post repair last by Dr. Roberts Diarrhea Continue tube feeds and advance to goal as tolerated. Continue Reglan 5mg PO Q8, Senna, Lactulose, Colace. having BM From a GI standpoint, use nasogastric access at this time. continue frequent speech eval for swallowing, once clinically improved. s/p EGD 09/09: Deformed pylorus/antrum, nodular mucosa-multiple biopsies taken esophagitis distal esophagus-biopsy unable to place PEG endoscopically due to hiatal hernia. CT abdomen/pelvis revealed possible small bowel obstruction at level of ventral hernia. Severe aortoiliac disease. Dr. White/general surgery evaluated. Very poor surgical candidate this time. EGD 08/25 revealed esophageal nipple. Clots noted within the gastric contents without active bleeding. Protonix for GI prophylaxis, 40 mg IV q12 Hold Bowel regimen for diarrhea. [facility] nutrition plan: Feeding per DHT. the patient does not have a contraindication to replacement of DHT if it comes out accidentally. Continue speech/swallow eval and strengthening. I do think he will be strong enough to eat PO in the near future and will not medically require surgical feeding tube. Surgical feeding tube high risk given hernia. risks outweigh benefits. we have a defined long-term enteral feeding plan. Renal/: Acute kidney injury- resolved Hypernatremia History of bladder outlet obstruction Monitor renal function, I/O's, electrolytes replacement per protocol. Free water flushes 300ml Q6 monitor sodium level No hydronephrosis on CT abdomen/pelvis ID: New HCAP Severe sepsis UTI Fungemia Stenotrophomonas HCAP, s/p course of Levaquin 09/10 - 09/16 s/p course of micafungin for fungemia s/p levaquin, cefepime. culture for new fever. ID following Pertinent cultures 09/26: Sputum Stenotrophomonas 09/08 Bronch: S. Maltophilia, 09/06 Bronch- S. Maltophilia, 09/03 - blood culture - no growth 09/02 - blood culture - no growth 08/27 - blood from central line -Ashley Glabrata 08/27 -arterial line blood - pending 08/26 - sputum -Serratia 08/25 - blood cultures 2 -Ashley 08/25 - urine -no growth 08/22 - blood cultures 2 - no growth 08/21 - urine - no growth 08/20 - blood cultures 2 - 1 out of 4 staph epi Endocrine: Chronic prednisone use secondary to COPD SSI for glycemic control as needed. Heme: s/p Acute blood loss anemia History of prostate cancer Status post 4 units PRBCs ands 2 units FFP on 08/24. Given one unit PRBCs 08/26, 1U 09/26 Additional 1 unit 09/28/16 Monitor CBC H/H stable. MSK: PT/OT evaluate and treat. Attempt up to chair daily with PT Access - obtain piv's. attempt to d/c picc line. Prophylaxis - GI -Protonix 40 q12 - DVT - SCD/ heparin 5000 u Sq Q12- cleared by GI. Resumed heparin 09/30 Overall impression: Slow progress s/p cardiopulmonary arrest. Papi Keating MD Oct 07, 2016 10:02
[2016-10-07] MEDS: RESP: BUDESONIDE 0.5 MG/2 ML NEB NEB SCH ×2 (10:36→21:05)
--- NOTE | 2016-10-07 12:15 | HHI.IDPN ---
Subjective Subjective Remarks Notes reviewed Temps ok Doing well, has been on T piece Not SOB Tolerating TF Bronch C/S Sten mal Not a lot of output from the right chest tube Antibiotics Levaquin - started 09/26 Lines PICC - 09/11 Past Medical History Reviewed Allergies: Coded Allergies: *MDRO Multi-Drug Resistant Organism (Verified Adverse Reaction, Unknown, ) MRSA (abdominal wound) 2015 per 04/10/2015 H&P MRSA PCR Screen #1 NEGATIVE - 08/21/16 Objective . Vital Signs Date Time Temp Pulse Resp B/P Pulse Ox O2 Delivery O2 Flow Rate FiO2 10/07/16 10:37 98 T-piece 5.00 28 10/07/16 10:00 106 10/07/16 09:40 16 10/07/16 09:40 16 10/07/16 08:00 108 10/07/16 08:00 98.8 108 19 113/70 94 10/07/16 06:00 100 10/07/16 04:00 98.5 98 18 113/79 97 10/07/16 04:00 98 10/07/16 02:00 97 10/07/16 00:00 97.7 112 20 117/56 97 10/07/16 00:00 112 10/06/16 22:00 112 10/06/16 20:12 98 T-piece 6.00 35 10/06/16 20:00 93 10/06/16 20:00 97.7 93 17 115/68 99 10/06/16 18:00 97 10/06/16 16:00 99.0 114 26 123/80 98 10/06/16 16:00 114 10/06/16 14:00 105 10/06/16 10/06/16 10/07/16 15:00 23:00 07:00 Intake Total 747 ml 673 ml 1037 ml Output Total 950 ml 2100 ml 1500 ml Balance -203 ml -1427 ml -463 ml Tube Feeding 347 ml 313 ml 437 ml Other 400 ml 360 ml 600 ml Output Urine Total 950 ml 2100 ml 1500 ml Chest Tube Drainage Total 0 ml 0 ml 0 ml # Bowel Movements 0 0 0 . Laboratory Tests Test 10/06/16 03:30 White Blood Count 9.6 TH/MM3 Red Blood Count 3.03 MIL/MM3 Hemoglobin 9.4 GM/DL Hematocrit 27.4 % Mean Corpuscular Volume 90.4 FL Mean Corpuscular Hemoglobin 31.1 PG Mean Corpuscular Hemoglobin 34.4 % Concent Red Cell Distribution Width 16.3 % Platelet Count 226 TH/MM3 Mean Platelet Volume 8.5 FL Imaging Chest X-Ray 10/01/16 0600 Signed Impressions: Service Date/Time: September 03:55 - CONCLUSION: 1. Bilateral pleural-parenchymal densities are slightly more prominent. 2. Small right apical pneumothorax is unchanged. Eduardo Mcconnell MD Chest X-Ray 09/28/16 0600 Signed Impressions: Service Date/Time: Wednesday, September 28, 2016 04:23 - CONCLUSION: 1. Decreasing pneumothorax along the right lung base. 2. Bibasilar densities again seen. Eduardo Mcconnell MD Chest X-Ray 09/27/160 Signed Impressions: Service Date/Time: Tuesday, September 27, 2016 22:36 - CONCLUSION: 1. Mild basilar airspace disease. Small right pneumothorax but increased from earlier exam. Near-complete reexpansion of the left lung. No left pneumothorax. Eleazar Jimenez MD Chest X-Ray 09/27/16 0600 Signed Impressions: Service Date/Time: Tuesday, September 27, 2016 06:24 - CONCLUSION: Hazy density seen in the chest bilaterally likely related to bilateral effusions. Some degree of atelectasis or consolidation at the bases also needs to be considered. Lex Lopez MD Chest X-Ray 09/27/16 0000 Signed Impressions: Service Date/Time: Tuesday, September 27, 2016 18:12 - CONCLUSION: 1. Development of near complete atelectasis of the left lung since exam from earlier today with mediastinal shift from right to left. 2 right chest tubes now present with small right pneumothorax. 2. Tracheostomy and NG tube unchanged. Findings discussed by telephone with Dr. Burnett. Eleazar Jimenez MD Chest CT 09/27/16 0000 Signed Impressions: Service Date/Time: Tuesday, September 27, 2016 09:17 - CONCLUSION: Bilateral large layering pleural effusions with complete atelectasis of the lower lobes. There is been interval placement of a tracheostomy tube which appears appropriately positioned. NG tube appears in appropriate position as does the right-sided central line.. Lola Jean Baptiste MD Chest X-Ray 09/26/16 0600 Signed Impressions: Service Date/Time: Monday, September 26, 2016 06:38 - CONCLUSION: Hazy density throughout the lungs likely related to bilateral effusions. Some degree of atelectasis or consolidation at the lung bases also needs to be considered. Lex Lopez MD Chest X-Ray 09/16/16 0000 Signed Impressions: Service Date/Time: Friday, September 16, 2016 04:58 - CONCLUSION: 1. Tracheostomy and right PICC line present. Bilateral airspace disease, right greater than left similar to September 15. Eleazar Jimenez MD Abdomen X-Ray 09/16/16 0000 Signed Impressions: Service Date/Time: Friday, September 16, 2016 10:54 - CONCLUSION: 1. Nasogastric tube looped in the distal esophagus. Gareth Escalante MD Abdomen X-Ray 09/15/16 0600 Signed Impressions: Service Date/Time: Thursday, September 15, 2016 03:16 - CONCLUSION: 1. Improved gaseous distention of bowel since September 14. Mild distention persists. Eleazar Jimenez MD Chest X-Ray 09/15/16 0000 Signed Impressions: Service Date/Time: Thursday, September 15, 2016 13:39 - CONCLUSION: Decrease in medial left lung base atelectasis. No change in hazy right lung base opacity. Donald Valerio MD Abdomen X-Ray 09/14/16 0600 Signed Impressions: Service Date/Time: Wednesday, September 14, 2016 03:56 - CONCLUSION: Gaseous distention of multiple bowel loops, likely ileus. Eduardo Mcconnell MD Chest X-Ray 09/08/16 1325 Signed Impressions: Service Date/Time: Thursday, September 08, 2016 13:37 - CONCLUSION: 1. Interval improvement of the interstitial infiltrates with minimal residual right basilar infiltrate noted. 2. Tracheostomy tube in good position approximately 5 cm above the michele. Lui Kim MD Chest X-Ray 09/06/16 0000 Signed Impressions: Service Date/Time: Tuesday, September 06, 2016 13:49 - CONCLUSION: 1. Interval intubation and placement of nasogastric tube. 2. Volume loss again noted left hemithorax with mediastinal shift. There is coarse infiltrate remaining in the left lung. Ian Horton MD Chest X-Ray 09/06/16 0000 Signed Impressions: Service Date/Time: Tuesday, September 06, 2016 08:50 - CONCLUSION: 1. Increasing density throughout the left hemithorax with volume loss suggesting mucus plugging. Eduardo Mcconnell MD Chest X-Ray 09/05/16 0500 Signed Impressions: Service Date/Time: Monday, September 05, 2016 03:49 - CONCLUSION: 1. Basilar airspace disease similar to prior exam. Support apparatus unchanged. Eleazar Jimenez MD Chest X-Ray 09/05/16 0500 Signed Impressions: Service Date/Time: Monday, September 05, 2016 03:49 - CONCLUSION: 1. Basilar airspace disease similar to prior exam. Support apparatus unchanged. Eleazar Jimenez MD Chest X-Ray 09/01/16 0600 Signed Impressions: Service Date/Time: Thursday, September 01, 2016 03:19 - CONCLUSION: No significant interval change in bilateral pulmonary parenchymal opacity and small bilateral pleural effusions. 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 There is concentric mural thrombus. This aneurysm is not amenable to thrombin injection. Polo Moore Jr., MD Chest X-Ray 08/27/16 0600 Signed Impressions: Service Date/Time: August 02:27 - CONCLUSION: 1. Patchy bilateral airspace disease with improving aeration/decreasing effusions in the bases bilaterally. 2. Stable position of life support tubes. Con Valdes MD Chest X-Ray 08/26/16 0754 Signed Impressions: Service Date/Time: Friday, August 26, 2016 08:14 - CONCLUSION: Left IJ central line distal tip in the SVC. No pneumothorax is visualized. There is a stable appearance the lungs with bilateral airspace consolidation. Lex Malik MD Chest X-Ray 08/26/16 0600 Signed Impressions: Service Date/Time: Friday, August 26, 2016 04:01 - CONCLUSION: 1. Worsening bibasilar effusions/atelectasis with diffuse interstitial edema, all characteristic of CHF. 2. Endotracheal tube remains appropriately positioned above the michele Con Valdes MD Chest X-Ray 08/26/16 0754 Signed Impressions: Service Date/Time: Friday, August 26, 2016 08:14 - CONCLUSION: Left IJ central line distal tip in the SVC. No pneumothorax is visualized. There is a stable appearance the lungs with bilateral airspace consolidation. Lex Malik MD Renal Ultrasound 08/25/16 0000 Signed Impressions: Service Date/Time: Wednesday, August 24, 2016 21:53 - CONCLUSION: 1. There is no hydronephrosis. Both kidneys demonstrate mild increased echotexture of the parenchyma suggesting medical renal disease. 2. Trace perihepatic free fluid and bilateral pleural effusions. Lex Malik MD Chest CT 08/25/16 0000 Signed Impressions: Service Date/Time: Thursday, August 25, 2016 21:20 - CONCLUSION: 1. Bilateral pneumonia and aspiration would be in the differential. There is dependent consolidation/atelectasis and small effusions of the bases as well. 2. Upper limits of normal to mildly enlarged mediastinal lymph nodes, most likely reactive. 3. Coronary artery calcification. 4. Right rib fractures, including acute fractures laterally of the third, fourth and fifth. There are old, healed fractures anteriorly of the right second and third ribs.. Lex Lopez MD Abdomen/Pelvis CT 08/25/16 0000 Signed Impressions: Service Date/Time: Thursday, August 25, 2016 20:20 - CONCLUSION: 1. Ventral hernia containing small bowel and with associated small bowel obstruction. The defect is broad; I believe the obstruction is probably related to scarring and/or adhesions within the hernia sac. I don't see a mass. 2. Distended stomach despite NG tube present. 3. Severe aortoiliac atherosclerosis. No aneurysm. Lex Lopez MD Abdomen X-Ray 08/24/16 0000 Signed Impressions: Service Date/Time: Wednesday, August 24, 2016 17:19 - CONCLUSION: 1. Small bowel dilatation which reflect ileus or obstruction. Followup examination is recommended if clinically indicated. Gareth Escalante MD Physical Exam GENERAL: Awake, and alert, following, NAD. On the vent SKIN: Warm and dry. No generalized rash HEENT: [place] conjunctiva, no scleral icterus. Dry oral mucosa. Has NGT in place NECK: Trach site ok. Supple. CARDIOVASCULAR: Regular rate and rhythm without murmurs, gallops, or rubs. RESPIRATORY: Decreased breath sounds on the left side, rhonchi on the right side ABDOMEN: Not tender, not distended. Has a large midline hernia reducible, mildly distended. Has midline scar. MUSCULOSKELETAL: Extremities without clubbing, cyanosis. No edema. : Hammond catheter in place, urine looks clear LINE: PICC no evidence of infection. Assessment & Plan Remarks IMPRESSION New problem, respiratory, plugging, possible new VAP, resolved - S/P bronch 09/27 - BP better - S/P course of Abx Sepsis present on admission and then sepsis again. Better Central line associated blood stream infection (CLABSI) related fungemia ( likely groin line) now discontinued. Arterial line discontinued as well. 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 - S/P Rx Sten mal in sputum, S/P Rx x 2 courses Status post cardiorespiratory arrest Findings SBO within the hernia on CT A/P, clinically better Acute respiratory failure, S/P trach Leukocytosis, better COPD, oxygen dependent Previous GI bleed with workup showing gastritis, Ashley esophagitis, and polyps Large incisional ventral hernia Bladder outlet obstruction, currently has a Hammond Renal insufficiency, resolved RECOMMENDATION Continue Levaquin, to finish 10/09 Follow temps Monitor progress Doing well on T-piece Clinically stable from ID standpoint I will be available prn Please call if with any new ID issue or question Nuha Fernandez MD Oct 07, 2016 12:15
--- NOTE | 2016-10-07 15:22 | RADRPT ---
EXAM DATE/TIME: 10/07/2016 14:15 [facility] COMPARISON: CHEST SINGLE AP, October 07, 2016, 8:18. INDICATIONS : Four hours status post chest tube removal. MEDICAL HISTORY : None. SURGICAL HISTORY : None. ENCOUNTER: Subsequent ACUITY: 1 month PAIN SCORE: Non-responsive. LOCATION: chest FINDINGS: A single view of the chest demonstrates interval removal of a right-sided surgical thoracostomy tube. The right upper extremity PICC line has also been removed. Very small, 8mm apical pneumothorax. Pers istent bibasilar effusions with common atelectatic changes, unchanged. Heart size is normal. Tracheos huong tube remains appropriately positioned with the tip at the clavicular heads. Nasogastric tube ent ers the stomach and extends off the image. CONCLUSION: 1. Interval removal of right-sided thoracostomy tube. Very small 8mm right apical pneumothorax. 2. Persistent bibasilar effusions of the common atelectatic changes. 3. Interval removal of right upper extremity PICC line. Tracheostomy tube and nasogastric tubes are s table in position. Con Valdes MD on October 07, 2016 at 15:11 Board Certified Radiologist. This report was verified electronically.
[2016-10-07] MEDS: OLANZapine ODT 5 MG TAB PO SCH (17:53)
[2016-10-07] MEDS: MELATONIN 5 MG TAB PO SCH (20:30)
[2016-10-08] VITALS (15 sets, daily range): BP systolic 100–131; BP diastolic 57–77; PULSE 90–116; RESP 15–23; TEMP 98–98.7; O2SAT 94–99
[2016-10-08] MEDS: OLANZapine ODT 5 MG TAB PO SCH ×3 (00:08→17:17)
[2016-10-08] MEDS: FREE WATER G-TUBE SCH ×5 (00:08→23:18)
[2016-10-08] MEDS: METOCLOPRAMIDE HCL 10 MG/2 ML VIAL IV PUSH SCH ×3 (00:08→15:21)
[2016-10-08] MEDS: HYDROmorphone HCL PF 1 MG/ML VIAL IV PRN ×3 (00:34→12:37)
[2016-10-08] MEDS: RESP: ALBUTEROL 2.5 MG/IPRATROPIUM 0.5 MG NEB (PRN) INH (05:05)
[2016-10-08] MEDS: NYSTATIN 100,000 U/GM PWD 15 GM BTL TOPICAL SCH ×3 (05:54→21:34)
[2016-10-08] MEDS: INSULIN NovoLIN REGULAR SUPPLEMENTAL SCALE SQ SCH ×5 (06:00→23:18)
[2016-10-08] MEDS: RESP: BUDESONIDE 0.5 MG/2 ML NEB NEB SCH ×2 (07:34→20:29)
[2016-10-08] MEDS: CHLORHEXIDINE GLUCONATE 0.12% 30 ML CUP SCH ×2 (08:03→19:51)
[2016-10-08] MEDS: SODIUM CHLORIDE 0.9% FLUSH 10 ML FLUSH IV FLUSH SCH (08:03)
[2016-10-08] MEDS: SODIUM CHLORIDE 0.9% FLUSH 5 ML FLUSH IVF SCH (08:04)
[2016-10-08] MEDS: HEPARIN SODIUM - SQ 10,000 UNITS/ML VIAL SQ SCH ×2 (09:08→21:34)
[2016-10-08] MEDS: ALPRAZolam 0.25 MG TAB PO PRN ×2 (09:09→17:17)
[2016-10-08] MEDS: SENNOSIDES SYRUP 8.8 MG/5 ML CUP PO SCH (09:09)
[2016-10-08] MEDS: LACTULOSE SYRUP 20 GM/30 ML CUP PO SCH (09:09)
[2016-10-08] MEDS: DOCUSATE SODIUM 100 MG/10 ML UDC PO SCH ×2 (09:09→21:33)
[2016-10-08] MEDS: PANTOPRAZOLE SODIUM 40 MG VIAL IV PUSH SCH ×2 (09:09→21:34)
[2016-10-08] MEDS: DILTIAZEM HCL 30 MG TAB PO SCH ×4 (09:09→21:34)
[2016-10-08] MEDS: LEVOFLOXACIN 750 MG TAB PO SCH (09:09)
[2016-10-08] MEDS: MULTIVITAMINS/MINERALS THERAPEUTIC TAB PO SCH (09:09)
[2016-10-08] MEDS: DOXAZOSIN MESYLATE 2 MG TAB PO SCH (09:09)
[2016-10-08] MEDS: oxyCODONE HCL ORAL CONC 20 MG/ML SYRINGE PO PRN ×2 (09:10→15:21)
--- NOTE | 2016-10-08 19:34 | HHI.CCPN ---
Subjective Remarks/Hospital Course 08/24: 71 Year-old male with a medical history significant for COPD on home oxygen who was recently admitted with suspected sepsis/H And was initiated on IV antibiotics and steroids. He had recently been evaluated by GI and underwent EGD on 08/10/2016 and was found to have moderate esophagitis, mild gastritis with pathology subsequently showing Ashley esophagitis as well as colonoscopy on 08/11/2016 with polypectomy and ablation of polyp in ascending colon with hot snare. Patient has been dealing with constipation since his admission. Today when he was trying to have a bowel movement he suddenly became less responsive and then had a large emesis which resulted in aspiration and hemodynamic collapse. Patient initially had large volume emesis with dark maroon blood. CODE BLUE cardiac arrest code was activated. On my arrival patient was in bed CPR had been initiated. Significant gastric contents was still being suctioned out of his oral cavity. ACLS protocol was continued. Patient was intubated following vigorous suctioning of gastric contents from oral cavity as well as with placement of NG tube which is hooked up to suction and about 1.5 L of gastric contents being suctioned out which appeared to be dark maroon in color. Patient initially had a pulse when CODE BLUE was called and subsequently went in PEA arrest followed by asystole during ACLS and then V. fib for which he was defibrillated with 200 J 1, CPR/ACLS protocol was continued and patient eventually had return of spontaneous circulation after about 15 minutes of CPR/ACLS. Patient was transferred to [facility] and placed on mechanical ventilation. I emergently placed left femoral central line for central vascular access and he was started on Levophed for pressor support. 2 units of O- 1 crossmatch blood were ordered and transfused stat. He also received 1 L of normal saline bolus following return of spontaneous circulation. Stat labs were ordered. His hemoglobin on ABG done post resuscitation was 5.6. I did order Protonix 80 mg IV stat followed by 8 mg per hour IV infusion. Patient remained encephalopathic though was minimally responsive following transfer to the ICU. GI consult was requested and I spoke with Dr. Zamarripa at bedside on his arrival. History was obtained by reviewing records, discussion with family/ GI as well as nursing staff. According to patient's daughter he has not been doing well for the last few months in terms of his breathing and has been using his home oxygen more often. He gets extremely short of breath even with the least exertion. 08/25: Remains encephalopathic/ sedated, [facility]. Transiently off levophed last night however back to 11 mcg/min currently. Hgb up to 9.4 following 4 units PRBCs transfused last night. 08/26: Tmax 99. Some unresponsive on the ventilator. CT abdomen/pelvis less than revealed small bowel obstruction at site of ventral hernia. No further bleeding noted. Gastric output approximately 700 cc. No bowel movement. 08/27: Tmax 99.7. Currently afebrile. Positive BM overnight approximately 1 L according to RN. No blood noted. 100 cc from gastric tube overnight. Hemoglobin corrected a properly. Likely dilutional. Noted fungemia currently issue. Opens eyes to voice. 08/28: Tmax 99.1. No BMs overnight. Minimal gastric tube output. Hemoglobin stable 9.5. Opens eyes to voice. Not following commands. Appears with singultus this morning. 08/29: 20 beat run of wide complex tachycardia overnight. Noted potassium 3.2. This is been replaced. We'll recheck this afternoon. Circuit exchange yesterday. Patient tolerating pressure control ventilation much better than PRVC/AC ventilation is low probably VQ scan. Less FiO2 requirements. No BM past 24 hour. 08/30: Unable to wean ventilator. 08/31: Patient was extubated on 08/30 however became tachypneic with use of accessory muscles of respiration and required reintubation around 6:30 PM last night and was placed back on mechanical ventilation. Currently sedated, orally intubated on mechanical ventilation. Post intubation chest x-ray suggested fluid overload for which she was given Lasix 40 mg IV with good response having made about 2.5 L urine the last 7 hours. 09/01: Remains sedated, orally intubated on mechanical ventilation. Diuresing well with Lasix. Awaiting EGD in a.m. 09/02: Little progress. CXR clearing nicely. Continue diuresis, tolerate hypernatremia. 09/03: Good diuretic response. CRISTHIAN today with no valvar pathology. 09/04: Too weak to tolerate extubation. Will require trach. 09/05: Sedated, arousable, following commands. Tolerated C Pap trial for 9 hours yesterday with pressure support +10. Tolerating tube feeds. 09/06: Extubated yesterday. Chest x-ray reveals likely mucous plugging in left lung garcia. Currently on nonrebreather mask. Planning of insomnia and thick secretions that he is unable to cough up. 09/07 Patient s/p reintubation and bronch 09/06 mucous plugs in left main stem bronchus sedated with Diprivan and Fentanyl. Afebrile. For possible trach tomorrow. 09/08 No acute events overnight. Sedated with Diprivan and Fentanyl. Afebrile. For trach today. 09/09 No acute events overnight. Sedated and intubated. s/p trach yesterday for PEG tube placement today. 09/10 Patient remains sedated and on ventilator via trach. s/p EGD yesterday PEG tube couldn't be placed endoscopically due to hernia. Surgery consulted for J-tube placement. Afebrile. 09/11 No acute events overnight. Sedated with Diprivan, Fentanyl and intubated. Afebrile. Tolerating tube feeds. 09/12 Patient is off Diprivan remains on Fentanyl infusion tolerated CPAP trials for several hrs and TP's x 2 hrs yesterday now on TP with 50% FIO2. Afebrile. 09/13 Patient tolerated TP's all day yesterday placed on PRVC/AC mode overnight. TF held for high residuals. Afebrile. On Fentanyl infusion however he is awake, restless. 09/14 No acute events overnight. Tolerated TP's all day yesterday placed back on ventilator overnight. On Fentanyl infusion. Afebrile. Repeat KUB this morning showed ileus. 09/15 Patient is off fentanyl infusion and is on Precedex drip pulled his NGT overnight. KUB this morning showed improvements in gaseous distention of bowel. 09/16 Yesterday afternoon an NG tube was placed patient was noted to have tube feeds with possible aspiration.NGT placed this am, KUB pending. 09/17: no acute events overnight. tolerated cpap. back on rate overnight. this morning on trach collar. 09/18: prior history of constipation, now with diarrhea. otherwise, awaiting placement. 09/19: diarrhea improving. still awaiting placement. 09/20: still doing well. on trach collar this morning on my evaluation. insurance has not yet approved placement. 09/21: tired out on trach collar yesterday. placed intermittently on cpap. insurance denied LTAC. will work towards [id number]. 09/22: had [id number] today. insurance continues to request permanent surgical feeding access to go to LTAC. My medical opinion is that patient is clinically improving and tolerating DHT without complication, and could safely be fed through DHT for the coming weeks, and I anticipate his dysphagia to resolve as his strength improves. I do not see a clinical indication for permanent surgical gastric access. We also are not a rehab center, and he is not getting medically appropriate care for his level of medical need. He does not require ICU admission, and medically would be more appropriate for LTAC. 09/23: transferred to [facility]. doing well. tachycardic this morning. diltiazem changed from QID to q6hr for more even distribution. insurance company denied admission to LTAC. will continue to pursue this as an option. otherwise, OOB to chair daily. still working with speech. 09/24: did not sleep well overnight. agitated. awake most of the night. I removed stay sutures from trach this morning. 09/25: Received Haldol overnight, resting now. Not agitated. On PRVC/AC. CPAP trails to resume today. Somnolent but wakes up and follows commands 09/26: Continues to have large amount of tracheal secretions. Levaquin restarted sputum culture ordered. Chest x-ray is pending. Did not tolerate CPAP yesterday became tachycardic and hypoxic Subjective 09/27: Tolerated CPAP approximately 6-7 hours became tachypneic afterwards. Currently on full vent support FiO2 50%. Chest x-ray from yesterday shows bilateral pleural effusions/infiltrate right more than left. CT chest ordered cefepime added sputum culture is pending. More delirious at night, now with eyes open following commands EVENTS FROM 09/27/16 evening Patient was turned to left side for thoracentesis, he acutely desaturated to low 70s prior to starting the procedure. Patient was placed back in supine, bag and mask ventilation performed until sats came up to 98%. Patient was again partially turned to left side and thoracentesis was attempted. Even though ultrasound showed fluid, air was withdrawn into the syringe. Procedure was abandoned and patient was put in neutral position. Peak pressures on the vent increased and patient started desaturating to 70s indicating tension pneumothorax. The thoracentesis Angiocath was used for emergency decompression and bag and mask ventilation became easier. An emergency 8 Argentine pigtail catheter was placed and connected to Pleur-evac. This had significant air leak but patient remained with low oxygen saturation in 70s. Additional 28 Argentine chest tube was emergently placed with a gradual improvement in saturation to mid 80s. (Chest tube/Pigtail tray was not available immediately at the bedside , and the tech had to run to the [facility] to get the chest tube tray). Patient was placed back on PC/ACmechanical ventilation with low tidal volume. Post chest tube chest x-ray shows good reexpansion of the lung and good positioning of the chest tubes. But the left lung is collapsed with mediastinal shift to the left indicating bronchial obstruction probably from mucous plug. I attempted bronchoscopy with intubating bronchoscope available here at [place]. I was unable to suction out any mucus plugging, or visualize clearly. Patient was transferred to [facility] in [place]. Dr. Espinoza performed therapeutic bronchoscopy with pediatric bronchoscope, and he was in able to clear a significant amount of secretion with reexpansion of lung. 09/28: Chest x-ray today shows right sided pneumothorax almost resolved. Good reexpansion of the left lung also bibasilar infiltrates seen. Sputum culture growing gram-negative rods. Patient is awake alert on full vent support. Levophed is being weaned currently on 4 mics per minute 09/29: Remains on mechanical ventilation via tracheostomy. Continues to have persistent air leak from right sided pigtail catheter as well as chest tube. Chest x-ray today shows slight increase in size of right pneumothorax. 09/30: Remains on mechanical ventilation via tracheostomy. Very small air leak noted in right sided chest tube. 10/01: Remains on mechanical ventilation via tracheostomy. Daily C Pap and T piece trials. Very small air leak noted. Decreased suction on right chest tube to -20 cm water pressure today. 10/02: Alert, breathing comfortably on vent. Continue weaning trials. 10/03: Continue daily SBTs and Dakin's dressing changes. 10/04: Awake and alert, following commands. Daily C Pap/T piece trials as tolerated. 10/05: Awake, alert, following commands. Persistent air leak in right chest tube noted. Tolerating tube feeds. Tolerates T piece during daytime. Significant respiratory secretions. 10/07: doing well. on trach collar x 48h. no air leak. cxr stable. minimal chest tube output. 10/08: no significant change. continues on trach collar. awaiting placement. patient is pulling trach collar off when he wants attention and banging it on the side rails until he gets hypoxic enough for alarms to go off. He has had to be restrained to prevent his hypoxia. Objective Vital Signs Date Time Temp Pulse Resp B/P Pulse Ox O2 Delivery O2 Flow Rate FiO2 10/08/16 19:00 92 T-Piece 40 10/08/16 18:00 90 10/08/16 16:00 98.0 23 100/69 10/08/16 07:34 7.00 Intake and Output 10/07/16 10/07/16 10/08/16 08:00 16:00 00:00 Intake Total 1037 ml 818 ml 420 ml Output Total 1500 ml 950 ml 1050 ml Balance -463 ml -132 ml -630 ml Result Diagram: 10/06/16 0330 10/05/16 0635 Imaging Last Impressions Abdomen X-Ray 09/15/16 0600 Signed Impressions: Service Date/Time: Thursday, September 15, 2016 03:16 - CONCLUSION: 1. Improved gaseous distention of bowel since September 14. Mild distention persists. 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 There is concentric mural thrombus. This aneurysm is not amenable to thrombin injection. Polo Moore Jr., MD Lung Scan- Nuclear Medicine 08/29/16 0000 Signed Impressions: Service Date/Time: Monday, August 29, 2016 10:20 - CONCLUSION: Low probability for pulmonary embolus. Lex Lopez MD Brain MRI 08/27/16 0000 Signed Impressions: Service Date/Time: August 15:13 - CONCLUSION: No evidence of acute infarct, hemorrhage, mass or edema. No findings to suggest significant anoxic injury. Kit Power MD Renal Ultrasound 08/25/16 Signed Impressions: Service Date/Time: Wednesday, August 24, 2016 21:53 - CONCLUSION: 1. There is no hydronephrosis. Both kidneys demonstrate mild increased echotexture of the parenchyma suggesting medical renal disease. 2. Trace perihepatic free fluid and bilateral pleural effusions. Lex Malik MD Chest CT 08/25/16 Signed Impressions: Service Date/Time: Thursday, August 25, 2016 21:20 - CONCLUSION: 1. Bilateral pneumonia and aspiration would be in the differential. There is dependent consolidation/atelectasis and small effusions of the bases as well. 2. Upper limits of normal to mildly enlarged mediastinal lymph nodes, most likely reactive. 3. Coronary artery calcification. 4. Right rib fractures, including acute fractures laterally of the third, fourth and fifth. There are old, healed fractures anteriorly of the right second and third ribs.. Lex Lopez MD Abdomen/Pelvis CT 08/25/16 Signed Impressions: Service Date/Time: Thursday, August 25, 2016 20:20 - CONCLUSION: 1. Ventral hernia containing small bowel and with associated small bowel obstruction. The defect is broad; I believe the obstruction is probably related to scarring and/or adhesions within the hernia sac. I don't see a mass. 2. Distended stomach despite NG tube present. 3. Severe aortoiliac atherosclerosis. No aneurysm. Lex Lopez MD Objective Remarks GENERAL: Patient is 71 yo lying in bed in bed, on trach collar via tracheostomy , follows commands SKIN: Warm and dry. HEAD: Normocephalic. EYES: No scleral icterus. No injection or drainage. NECK: trachea midline. No JVD. Trach in place. Copious yellow thick secretions CARDIOVASCULAR: Regular rate and rhythm without murmurs, gallops, or rubs. RESPIRATORY: Breath sounds equal bilaterally, coarse rhonchi bilaterally predominantly at the bases, few coarse crackles. no air leak noted today. GASTROINTESTINAL: Abdomen soft, non-tender, nondistended. MUSCULOSKELETAL: No cyanosis, +1 edema. NEURO: Awake, follows commands. Grossly nonfocal A/P Assessment and Plan Neuro/Psych: Status post CPR 15 minutes Depression NOS Agitated Delirium --Neurochecks per ICU protocol --decrease to Zyprexa 5 mg q8h --Melatonin q hs for sleep --prn breakthrough haldol for agitation --d/cd ativan due to paradoxical agitation. Continue Xanax 0.25 mg by mouth every 8 hours when necessary 09/26 --EEG 08/25 revealed mild to moderate encephalopathy. No epileptiform activity. --MRI brain 08/27 revealed no acute findings. --Calm 10/03 Cardiovascular: Cardiac arrest status post CPR History dyslipidemia History of hypertension PVD Off Levophed Monitor HR and BP keep MAP>65mmHg Starting Cardizem 30 minutes by mouth 4 times a day on 09/30 for Tachyarrhythmia Cardiac arrest status post CPR. s/p aggressive fluid resuscitation. minimal troponin elevation following cardiac arrest noted Echo 2D revealed EF 35-40%. Moderate LVH. Mitral valve calcified. Mild TR. Pulmonary: Tension pneumothorax s/p chest tube 09/27 Complete left lung collapse from mucous plugging 09/27 HCAP with GNR Acute respiratory failure secondary to aspiration pneumonia- Reintubated 09/06 s/p Trach on 09/08 End-stage COPD. Oxygen dependent FEV1 28%, FVC 1.6. S/P Aspiration 09/15 Status post emergency chest tube 2 for tension pneumothorax (09/27) following right attempted thoracentesis, 28 Argentine chest tube to water seal. Status post bronchoscopy for mucous plugging of the left main bronchus 09/27 s/p reintubation and bronch 09/06 mucous plugs in left main stem bronchus T piece as tolerated. Bronchodilators, Pulmicort twice a day Needs aggressive pulmonary rehab with LTAC. Continues to be very weak VQ scan low probability 08/29 pulm toilet, trach care to stretcher chair daily. --d/c chest tube today -- AM CXR GI: Small bowel obstruction - resolved Upper GI bleed plus esophageal rule out aorto esophageal fistula History of Ashley esophagitis History of colonic polyps History of ventral hernia status post repair last by Dr. Roberts Diarrhea Continue tube feeds and advance to goal as tolerated. Continue Reglan 5mg PO Q8, Senna, Lactulose, Colace. having BM From a GI standpoint, use nasogastric access at this time. continue frequent speech eval for swallowing, once clinically improved. s/p EGD 09/09: Deformed pylorus/antrum, nodular mucosa-multiple biopsies taken esophagitis distal esophagus-biopsy unable to place PEG endoscopically due to hiatal hernia. CT abdomen/pelvis revealed possible small bowel obstruction at level of ventral hernia. Severe aortoiliac disease. Dr. Roberts/general surgery evaluated. Very poor surgical candidate this time. EGD 08/25 revealed esophageal nipple. Clots noted within the gastric contents without active bleeding. Protonix for GI prophylaxis, 40 mg IV q12 Hold Bowel regimen for diarrhea. 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 the patient does not have a contraindication to replacement of DHT if it comes out accidentally. Continue speech/swallow eval and strengthening. I do think he will be strong enough to eat PO in the near future and will not medically require surgical feeding tube. Surgical feeding tube high risk given hernia. risks outweigh benefits. we have a defined long-term enteral feeding plan. Renal/: Acute kidney injury- resolved Hypernatremia History of bladder outlet obstruction Monitor renal function, I/O's, electrolytes replacement per protocol. Free water flushes 300ml Q6 monitor sodium level No hydronephrosis on CT abdomen/pelvis ID: New HCAP Severe sepsis UTI Fungemia Stenotrophomonas HCAP, s/p course of Levaquin 09/10 - 09/16 s/p course of micafungin for fungemia s/p levaquin, cefepime. culture for new fever. ID following Pertinent cultures 09/26: Sputum Stenotrophomonas 09/08 Bronch: S. Maltophilia, 09/06 Bronch- S. Maltophilia, 09/03 - blood culture - no growth 09/02 - blood culture - no growth 08/27 - blood from central line -Ashley Glabrata 08/27 -arterial line blood - pending 08/26 - sputum -Serratia 08/25 - blood cultures 2 -Ashley 08/25 - urine -no growth 08/22 - blood cultures 2 - no growth 08/21 - urine - no growth 08/20 - blood cultures 2 - 1 out of 4 staph epi Endocrine: Chronic prednisone use secondary to COPD SSI for glycemic control as needed. Heme: s/p Acute blood loss anemia History of prostate cancer Status post 4 units PRBCs ands 2 units FFP on 08/24. Given one unit PRBCs 08/26, 1U 09/26 Additional 1 unit 09/28/16 Monitor CBC H/H stable. MSK: PT/OT evaluate and treat. Attempt up to chair daily with PT Access - piv's Prophylaxis - GI -Protonix 40 q12 - DVT - SCD/ heparin 5000 u Sq Q12- cleared by GI. Resumed heparin 09/30 Overall impression: Slow progress s/p cardiopulmonary arrest. awaiting placement. Papi Keating MD Oct 08, 2016 19:34
[2016-10-08] MEDS: MELATONIN 5 MG TAB PO SCH (21:34)
[2016-10-09] VITALS (14 sets, daily range): BP systolic 98–126; BP diastolic 56–64; PULSE 83–110; RESP 16–24; TEMP 98–98.7; O2SAT 93–100
[2016-10-09] MEDS: OLANZapine ODT 5 MG TAB PO SCH ×3 (00:51→15:57)
[2016-10-09] MEDS: METOCLOPRAMIDE HCL 10 MG/2 ML VIAL IV PUSH SCH ×4 (00:51→23:32)
[2016-10-09] MEDS: HYDROmorphone HCL PF 1 MG/ML VIAL IV PRN (01:42)
[2016-10-09] MEDS: ALPRAZolam 0.25 MG TAB PO PRN ×3 (03:06→23:32)
[2016-10-09 04:34] LABS: HEMATOCRIT 27.9 % (39.0-51.0); MEAN CELL VOLUME 91.3 FL (80.0-100.0); MEAN CORPUSCULAR HEMOGLOBIN 30.2 PG (27.0-34.0); PLATELET COUNT 336 TH/MM3 (150-450); RED BLOOD COUNT 3.06 MIL/MM3 (4.50-5.90); REVIEW FLAG FINAL; WHITE BLOOD COUNT 15.5 TH/MM3 (4.0-11.0)
[2016-10-09] MEDS: NYSTATIN 100,000 U/GM PWD 15 GM BTL TOPICAL SCH ×3 (05:41→21:02)
[2016-10-09] MEDS: FREE WATER G-TUBE SCH ×4 (05:41→23:32)
[2016-10-09] MEDS: INSULIN NovoLIN REGULAR SUPPLEMENTAL SCALE SQ SCH ×3 (05:41→18:00)
[2016-10-09] MEDS: oxyCODONE HCL ORAL CONC 20 MG/ML SYRINGE PO PRN ×3 (06:15→15:57)
[2016-10-09] MEDS: SODIUM CHLORIDE 0.9% FLUSH 10 ML FLUSH IV FLUSH SCH (07:25)
[2016-10-09] MEDS: SODIUM CHLORIDE 0.9% FLUSH 5 ML FLUSH IVF SCH (07:26)
[2016-10-09] MEDS: LACTULOSE SYRUP 20 GM/30 ML CUP PO SCH ×2 (07:26→07:47)
[2016-10-09] MEDS: HALOPERIDOL LACTATE 5 MG/ML AMP IV PRN (07:44)
[2016-10-09] MEDS: PANTOPRAZOLE SODIUM 40 MG VIAL IV PUSH SCH ×2 (07:45→20:47)
[2016-10-09] MEDS: DOCUSATE SODIUM 100 MG/10 ML UDC PO SCH ×2 (07:46→20:47)
[2016-10-09] MEDS: HEPARIN SODIUM - SQ 10,000 UNITS/ML VIAL SQ SCH ×2 (07:46→20:47)
[2016-10-09] MEDS: DOXAZOSIN MESYLATE 2 MG TAB PO SCH (07:47)
[2016-10-09] MEDS: MULTIVITAMINS/MINERALS THERAPEUTIC TAB PO SCH (07:47)
[2016-10-09] MEDS: LEVOFLOXACIN 750 MG TAB PO SCH (07:47)
[2016-10-09] MEDS: SENNOSIDES SYRUP 8.8 MG/5 ML CUP PO SCH (07:47)
[2016-10-09] MEDS: DILTIAZEM HCL 30 MG TAB PO SCH ×4 (07:47→20:47)
[2016-10-09] MEDS: CHLORHEXIDINE GLUCONATE 0.12% 30 ML CUP SCH ×2 (08:00→20:00)
[2016-10-09] MEDS: RESP: BUDESONIDE 0.5 MG/2 ML NEB NEB SCH ×2 (09:20→20:36)
--- NOTE | 2016-10-09 18:08 | HHI.CCPN ---
Subjective Remarks/Hospital Course 08/24: 71 Year-old male with a medical history significant for COPD on home oxygen who was recently admitted with suspected sepsis/H And was initiated on IV antibiotics and steroids. He had recently been evaluated by GI and underwent EGD on 08/10/2016 and was found to have moderate esophagitis, mild gastritis with pathology subsequently showing Ashley esophagitis as well as colonoscopy on 08/11/2016 with polypectomy and ablation of polyp in ascending colon with hot snare. Patient has been dealing with constipation since his admission. Today when he was trying to have a bowel movement he suddenly became less responsive and then had a large emesis which resulted in aspiration and hemodynamic collapse. Patient initially had large volume emesis with dark maroon blood. CODE BLUE cardiac arrest code was activated. On my arrival patient was in bed CPR had been initiated. Significant gastric contents was still being suctioned out of his oral cavity. ACLS protocol was continued. Patient was intubated following vigorous suctioning of gastric contents from oral cavity as well as with placement of NG tube which is hooked up to suction and about 1.5 L of gastric contents being suctioned out which appeared to be dark maroon in color. Patient initially had a pulse when CODE BLUE was called and subsequently went in PEA arrest followed by asystole during ACLS and then V. fib for which he was defibrillated with 200 J 1, CPR/ACLS protocol was continued and patient eventually had return of spontaneous circulation after about 15 minutes of CPR/ACLS. Patient was transferred to [facility] and placed on mechanical ventilation. I emergently placed left femoral central line for central vascular access and he was started on Levophed for pressor support. 2 units of O- 1 crossmatch blood were ordered and transfused stat. He also received 1 L of normal saline bolus following return of spontaneous circulation. Stat labs were ordered. His hemoglobin on ABG done post resuscitation was 5.6. I did order Protonix 80 mg IV stat followed by 8 mg per hour IV infusion. Patient remained encephalopathic though was minimally responsive following transfer to the ICU. GI consult was requested and I spoke with Dr. Zamarripa at bedside on his arrival. History was obtained by reviewing records, discussion with family/ GI as well as nursing staff. According to patient's daughter he has not been doing well for the last few months in terms of his breathing and has been using his home oxygen more often. He gets extremely short of breath even with the least exertion. 08/25: Remains encephalopathic/ sedated, [facility]. Transiently off levophed last night however back to 11 mcg/min currently. Hgb up to 9.4 following 4 units PRBCs transfused last night. 08/26: Tmax 99. Some unresponsive on the ventilator. CT abdomen/pelvis less than revealed small bowel obstruction at site of ventral hernia. No further bleeding noted. Gastric output approximately 700 cc. No bowel movement. 08/27: Tmax 99.7. Currently afebrile. Positive BM overnight approximately 1 L according to RN. No blood noted. 100 cc from gastric tube overnight. Hemoglobin corrected a properly. Likely dilutional. Noted fungemia currently issue. Opens eyes to voice. 08/28: Tmax 99.1. No BMs overnight. Minimal gastric tube output. Hemoglobin stable 9.5. Opens eyes to voice. Not following commands. Appears with singultus this morning. 08/29: 20 beat run of wide complex tachycardia overnight. Noted potassium 3.2. This is been replaced. We'll recheck this afternoon. Circuit exchange yesterday. Patient tolerating pressure control ventilation much better than PRVC/AC ventilation is low probably VQ scan. Less FiO2 requirements. No BM past 24 hour. 08/30: Unable to wean ventilator. 08/31: Patient was extubated on 08/30 however became tachypneic with use of accessory muscles of respiration and required reintubation around 6:30 PM last night and was placed back on mechanical ventilation. Currently sedated, orally intubated on mechanical ventilation. Post intubation chest x-ray suggested fluid overload for which she was given Lasix 40 mg IV with good response having made about 2.5 L urine the last 7 hours. 09/01: Remains sedated, orally intubated on mechanical ventilation. Diuresing well with Lasix. Awaiting EGD in a.m. 09/02: Little progress. CXR clearing nicely. Continue diuresis, tolerate hypernatremia. 09/03: Good diuretic response. CRISTHIAN today with no valvar pathology. 09/04: Too weak to tolerate extubation. Will require trach. 09/05: Sedated, arousable, following commands. Tolerated C Pap trial for 9 hours yesterday with pressure support +10. Tolerating tube feeds. 09/06: Extubated yesterday. Chest x-ray reveals likely mucous plugging in left lung garcia. Currently on nonrebreather mask. Planning of insomnia and thick secretions that he is unable to cough up. 09/07 Patient s/p reintubation and bronch 09/06 mucous plugs in left main stem bronchus sedated with Diprivan and Fentanyl. Afebrile. For possible trach tomorrow. 09/08 No acute events overnight. Sedated with Diprivan and Fentanyl. Afebrile. For trach today. 09/09 No acute events overnight. Sedated and intubated. s/p trach yesterday for PEG tube placement today. 09/10 Patient remains sedated and on ventilator via trach. s/p EGD yesterday PEG tube couldn't be placed endoscopically due to hernia. Surgery consulted for J-tube placement. Afebrile. 09/11 No acute events overnight. Sedated with Diprivan, Fentanyl and intubated. Afebrile. Tolerating tube feeds. 09/12 Patient is off Diprivan remains on Fentanyl infusion tolerated CPAP trials for several hrs and TP's x 2 hrs yesterday now on TP with 50% FIO2. Afebrile. 09/13 Patient tolerated TP's all day yesterday placed on PRVC/AC mode overnight. TF held for high residuals. Afebrile. On Fentanyl infusion however he is awake, restless. 09/14 No acute events overnight. Tolerated TP's all day yesterday placed back on ventilator overnight. On Fentanyl infusion. Afebrile. Repeat KUB this morning showed ileus. 09/15 Patient is off fentanyl infusion and is on Precedex drip pulled his NGT overnight. KUB this morning showed improvements in gaseous distention of bowel. 09/16 Yesterday afternoon an NG tube was placed patient was noted to have tube feeds with possible aspiration.NGT placed this am, KUB pending. 09/17: no acute events overnight. tolerated cpap. back on rate overnight. this morning on trach collar. 09/18: prior history of constipation, now with diarrhea. otherwise, awaiting placement. 09/19: diarrhea improving. still awaiting placement. 09/20: still doing well. on trach collar this morning on my evaluation. insurance has not yet approved placement. 09/21: tired out on trach collar yesterday. placed intermittently on cpap. insurance denied LTAC. will work towards [id number]. 09/22: had [id number] today. insurance continues to request permanent surgical feeding access to go to LTAC. My medical opinion is that patient is clinically improving and tolerating DHT without complication, and could safely be fed through DHT for the coming weeks, and I anticipate his dysphagia to resolve as his strength improves. I do not see a clinical indication for permanent surgical gastric access. We also are not a rehab center, and he is not getting medically appropriate care for his level of medical need. He does not require ICU admission, and medically would be more appropriate for LTAC. 09/23: transferred to [facility]. doing well. tachycardic this morning. diltiazem changed from QID to q6hr for more even distribution. insurance company denied admission to LTAC. will continue to pursue this as an option. otherwise, OOB to chair daily. still working with speech. 09/24: did not sleep well overnight. agitated. awake most of the night. I removed stay sutures from trach this morning. 09/25: Received Haldol overnight, resting now. Not agitated. On PRVC/AC. CPAP trails to resume today. Somnolent but wakes up and follows commands 09/26: Continues to have large amount of tracheal secretions. Levaquin restarted sputum culture ordered. Chest x-ray is pending. Did not tolerate CPAP yesterday became tachycardic and hypoxic Subjective 09/27: Tolerated CPAP approximately 6-7 hours became tachypneic afterwards. Currently on full vent support FiO2 50%. Chest x-ray from yesterday shows bilateral pleural effusions/infiltrate right more than left. CT chest ordered cefepime added sputum culture is pending. More delirious at night, now with eyes open following commands EVENTS FROM 09/27/16 evening Patient was turned to left side for thoracentesis, he acutely desaturated to low 70s prior to starting the procedure. Patient was placed back in supine, bag and mask ventilation performed until sats came up to 98%. Patient was again partially turned to left side and thoracentesis was attempted. Even though ultrasound showed fluid, air was withdrawn into the syringe. Procedure was abandoned and patient was put in neutral position. Peak pressures on the vent increased and patient started desaturating to 70s indicating tension pneumothorax. The thoracentesis Angiocath was used for emergency decompression and bag and mask ventilation became easier. An emergency 8 Israeli pigtail catheter was placed and connected to Pleur-evac. This had significant air leak but patient remained with low oxygen saturation in 70s. Additional 28 Israeli chest tube was emergently placed with a gradual improvement in saturation to mid 80s. (Chest tube/Pigtail tray was not available immediately at the bedside , and the tech had to run to the [facility] to get the chest tube tray). Patient was placed back on PC/ACmechanical ventilation with low tidal volume. Post chest tube chest x-ray shows good reexpansion of the lung and good positioning of the chest tubes. But the left lung is collapsed with mediastinal shift to the left indicating bronchial obstruction probably from mucous plug. I attempted bronchoscopy with intubating bronchoscope available here at [place]. I was unable to suction out any mucus plugging, or visualize clearly. Patient was transferred to [facility] in [facility]. Dr. Espinoza performed therapeutic bronchoscopy with pediatric bronchoscope, and he was in able to clear a significant amount of secretion with reexpansion of lung. 09/28: Chest x-ray today shows right sided pneumothorax almost resolved. Good reexpansion of the left lung also bibasilar infiltrates seen. Sputum culture growing gram-negative rods. Patient is awake alert on full vent support. Levophed is being weaned currently on 4 mics per minute 09/29: Remains on mechanical ventilation via tracheostomy. Continues to have persistent air leak from right sided pigtail catheter as well as chest tube. Chest x-ray today shows slight increase in size of right pneumothorax. 09/30: Remains on mechanical ventilation via tracheostomy. Very small air leak noted in right sided chest tube. 10/01: Remains on mechanical ventilation via tracheostomy. Daily C Pap and T piece trials. Very small air leak noted. Decreased suction on right chest tube to -20 cm water pressure today. 10/02: Alert, breathing comfortably on vent. Continue weaning trials. 10/03: Continue daily SBTs and Dakin's dressing changes. 10/04: Awake and alert, following commands. Daily C Pap/T piece trials as tolerated. 10/05: Awake, alert, following commands. Persistent air leak in right chest tube noted. Tolerating tube feeds. Tolerates T piece during daytime. Significant respiratory secretions. 10/07: doing well. on trach collar x 48h. no air leak. cxr stable. minimal chest tube output. 10/08: no significant change. continues on trach collar. awaiting placement. patient is pulling trach collar off when he wants attention and banging it on the side rails until he gets hypoxic enough for alarms to go off. He has had to be restrained to prevent his hypoxia. 10/09: still awaiting insurance authorization for placement. no significant changes. Objective Vital Signs Date Time Temp Pulse Resp B/P Pulse Ox O2 Delivery O2 Flow Rate FiO2 10/09/16 16:00 110 10/09/16 16:00 98.0 20 126/60 94 10/09/16 09:22 T-piece 40 10/08/16 20:33 6.00 Intake and Output 10/08/16 10/08/16 10/09/16 08:00 16:00 00:00 Intake Total 1120 ml 671 ml 494 ml Output Total 1050 ml 700 ml 925 ml Balance 70 ml -29 ml -431 ml Result Diagram: 10/09/16 0409 10/05/16 0635 Imaging Last Impressions Abdomen X-Ray 09/15/16 0600 Signed Impressions: Service Date/Time: Thursday, September 15, 2016 03:16 - CONCLUSION: 1. Improved gaseous distention of bowel since September 14. Mild distention persists. 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 There is concentric mural thrombus. This aneurysm is not amenable to thrombin injection. Polo Moore Jr., MD Lung Scan- Nuclear Medicine 08/29/16 0000 Signed Impressions: Service Date/Time: Monday, August 29, 2016 10:20 - CONCLUSION: Low probability for pulmonary embolus. Lex Lopez MD Brain MRI 08/27/16 0000 Signed Impressions: Service Date/Time: August 15:13 - CONCLUSION: No evidence of acute infarct, hemorrhage, mass or edema. No findings to suggest significant anoxic injury. Kit Power MD Renal Ultrasound 08/25/16 Signed Impressions: Service Date/Time: Wednesday, August 24, 2016 21:53 - CONCLUSION: 1. There is no hydronephrosis. Both kidneys demonstrate mild increased echotexture of the parenchyma suggesting medical renal disease. 2. Trace perihepatic free fluid and bilateral pleural effusions. Lex Malik MD Chest CT 08/25/16 Signed Impressions: Service Date/Time: Thursday, August 25, 2016 21:20 - CONCLUSION: 1. Bilateral pneumonia and aspiration would be in the differential. There is dependent consolidation/atelectasis and small effusions of the bases as well. 2. Upper limits of normal to mildly enlarged mediastinal lymph nodes, most likely reactive. 3. Coronary artery calcification. 4. Right rib fractures, including acute fractures laterally of the third, fourth and fifth. There are old, healed fractures anteriorly of the right second and third ribs.. Lex Lopez MD Abdomen/Pelvis CT 08/25/16 Signed Impressions: Service Date/Time: Thursday, August 25, 2016 20:20 - CONCLUSION: 1. Ventral hernia containing small bowel and with associated small bowel obstruction. The defect is broad; I believe the obstruction is probably related to scarring and/or adhesions within the hernia sac. I don't see a mass. 2. Distended stomach despite NG tube present. 3. Severe aortoiliac atherosclerosis. No aneurysm. Lex Lopez MD Objective Remarks GENERAL: Patient is 71 yo lying in bed in bed, on trach collar via tracheostomy , follows commands SKIN: Warm and dry. HEAD: Normocephalic. EYES: No scleral icterus. No injection or drainage. NECK: trachea midline. No JVD. Trach in place. Copious yellow thick secretions CARDIOVASCULAR: Regular rate and rhythm without murmurs, gallops, or rubs. RESPIRATORY: Breath sounds equal bilaterally, coarse rhonchi bilaterally predominantly at the bases, few coarse crackles. no air leak noted today. GASTROINTESTINAL: Abdomen soft, non-tender, nondistended. MUSCULOSKELETAL: No cyanosis, +1 edema. NEURO: Awake, follows commands. Grossly nonfocal A/P Assessment and Plan Neuro/Psych: Status post CPR 15 minutes Depression NOS Agitated Delirium --Neurochecks per ICU protocol -- Zyprexa 5 mg q8h --Melatonin q hs for sleep --prn breakthrough haldol for agitation --d/cd ativan due to paradoxical agitation. Continue Xanax 0.25 mg by mouth every 8 hours when necessary 09/26 --EEG 08/25 revealed mild to moderate encephalopathy. No epileptiform activity. --MRI brain 08/27 revealed no acute findings. Cardiovascular: Cardiac arrest status post CPR History dyslipidemia History of hypertension PVD Monitor HR and BP keep MAP>65mmHg Starting Cardizem 30 minutes by mouth 4 times a day on 09/30 for Tachyarrhythmia Cardiac arrest status post CPR. s/p aggressive fluid resuscitation. minimal troponin elevation following cardiac arrest noted Echo 2D revealed EF 35-40%. Moderate LVH. Mitral valve calcified. Mild TR. Pulmonary: Tension pneumothorax s/p chest tube 09/27 Complete left lung collapse from mucous plugging 09/27 HCAP with GNR Acute respiratory failure secondary to aspiration pneumonia- Reintubated 09/06 s/p Trach on 09/08 End-stage COPD. Oxygen dependent FEV1 28%, FVC 1.6. S/P Aspiration 09/15 Status post emergency chest tube 2 for tension pneumothorax (09/27) following right attempted thoracentesis, 28 Israeli chest tube to water seal. Status post bronchoscopy for mucous plugging of the left main bronchus 09/27 s/p reintubation and bronch 09/06 mucous plugs in left main stem bronchus T piece as tolerated. Bronchodilators, Pulmicort twice a day Needs aggressive pulmonary rehab with LTAC. Continues to be very weak VQ scan low probability 08/29 pulm toilet, trach care to stretcher chair daily. GI: Small bowel obstruction - resolved Upper GI bleed plus esophageal rule out aorto esophageal fistula History of Ashley esophagitis History of colonic polyps History of ventral hernia status post repair last by Dr. Roberts Diarrhea Continue tube feeds and advance to goal as tolerated. Continue Reglan 5mg PO Q8, Senna, Lactulose, Colace. having BM From a GI standpoint, use nasogastric access at this time. continue frequent speech eval for swallowing, once clinically improved. s/p EGD 09/09: Deformed pylorus/antrum, nodular mucosa-multiple biopsies taken esophagitis distal esophagus-biopsy unable to place PEG endoscopically due to hiatal hernia. CT abdomen/pelvis revealed possible small bowel obstruction at level of ventral hernia. Severe aortoiliac disease. Dr. Roberts/general surgery evaluated. Very poor surgical candidate this time. EGD 08/25 revealed esophageal nipple. Clots noted within the gastric contents without active bleeding. Protonix for GI prophylaxis, 40 mg IV q12 Hold Bowel regimen for diarrhea. intermediate frame tender nutrition plan: Feeding per DHT. the patient does not have a contraindication to replacement of DHT if it comes out accidentally. Continue speech/swallow eval and strengthening. I do think he will be strong enough to eat PO in the near future and will not medically require surgical feeding tube. Surgical feeding tube high risk given hernia. risks outweigh benefits. we have a defined long-term enteral feeding plan. Renal/: Acute kidney injury- resolved Hypernatremia History of bladder outlet obstruction Monitor renal function, I/O's, electrolytes replacement per protocol. Free water flushes 300ml Q6 monitor sodium level No hydronephrosis on CT abdomen/pelvis -- d/c menendez. has been on Cardura x 48h. trial of voiding. has had problems with urinary retention in the past. ID: New HCAP Severe sepsis UTI Fungemia Stenotrophomonas HCAP, s/p course of Levaquin 09/10 - 09/16 s/p course of micafungin for fungemia s/p levaquin, cefepime. culture for new fever. ID following Pertinent cultures 09/26: Sputum Stenotrophomonas 09/08 Bronch: S. Maltophilia, 09/06 Bronch- S. Maltophilia, 09/03 - blood culture - no growth 09/02 - blood culture - no growth 08/27 - blood from central line -Ashley Glabrata 08/27 -arterial line blood - pending 08/26 - sputum -Serratia 08/25 - blood cultures 2 -Ashley 08/25 - urine -no growth 08/22 - blood cultures 2 - no growth 08/21 - urine - no growth 08/20 - blood cultures 2 - 1 out of 4 staph epi Endocrine: Chronic prednisone use secondary to COPD SSI for glycemic control as needed. Heme: s/p Acute blood loss anemia History of prostate cancer Status post 4 units PRBCs ands 2 units FFP on 08/24. Given one unit PRBCs 3/8, 1U 09/26 Additional 1 unit 09/28/16 Monitor CBC H/H stable. MSK: PT/OT evaluate and treat. Attempt up to chair daily with PT Access - piv's Prophylaxis - GI -Protonix 40 q12 - DVT - SCD/ heparin 5000 u Sq Q12- cleared by GI. Resumed heparin 09/30 Overall impression: Slow progress s/p cardiopulmonary arrest. awaiting placement. Papi Keating MD Oct 09, 2016 18:08
[2016-10-09] MEDS: MELATONIN 5 MG TAB PO SCH (20:47)
[2016-10-10] VITALS (14 sets, daily range): BP systolic 98–119; BP diastolic 62–72; PULSE 72–109; RESP 12–20; TEMP 98.2–98.6; O2SAT 95–100
[2016-10-10] MEDS: OLANZapine ODT 5 MG TAB PO SCH ×3 (00:23→16:35)
[2016-10-10] MEDS: oxyCODONE HCL ORAL CONC 20 MG/ML SYRINGE PO PRN ×3 (01:57→13:54)
[2016-10-10] MEDS: FREE WATER G-TUBE SCH ×4 (05:24→23:29)
[2016-10-10] MEDS: NYSTATIN 100,000 U/GM PWD 15 GM BTL TOPICAL SCH ×3 (05:25→21:16)
[2016-10-10] MEDS: INSULIN NovoLIN REGULAR SUPPLEMENTAL SCALE SQ SCH ×4 (06:00→16:57)
[2016-10-10] MEDS: SODIUM CHLORIDE 0.9% FLUSH 10 ML FLUSH IV FLUSH SCH (07:44)
[2016-10-10] MEDS: CHLORHEXIDINE GLUCONATE 0.12% 30 ML CUP SCH ×2 (07:44→19:51)
[2016-10-10] MEDS: SODIUM CHLORIDE 0.9% FLUSH 5 ML FLUSH IVF SCH (07:44)
[2016-10-10] MEDS: LACTULOSE SYRUP 20 GM/30 ML CUP PO SCH (07:45)
[2016-10-10] MEDS: RESP: BUDESONIDE 0.5 MG/2 ML NEB NEB SCH ×2 (08:38→19:45)
[2016-10-10] MEDS: DOCUSATE SODIUM 100 MG/10 ML UDC PO SCH ×2 (08:52→19:52)
[2016-10-10] MEDS: DOXAZOSIN MESYLATE 2 MG TAB PO SCH (08:52)
[2016-10-10] MEDS: SENNOSIDES SYRUP 8.8 MG/5 ML CUP PO SCH (08:52)
[2016-10-10] MEDS: ALPRAZolam 0.25 MG TAB PO PRN ×2 (08:54→16:40)
[2016-10-10] MEDS: PANTOPRAZOLE SODIUM 40 MG VIAL IV PUSH SCH ×2 (08:54→19:52)
[2016-10-10] MEDS: HEPARIN SODIUM - SQ 10,000 UNITS/ML VIAL SQ SCH ×2 (08:54→19:53)
[2016-10-10] MEDS: MULTIVITAMINS/MINERALS THERAPEUTIC TAB PO SCH (08:54)
[2016-10-10] MEDS: DILTIAZEM HCL 30 MG TAB PO SCH ×4 (08:54→19:52)
[2016-10-10] MEDS: METOCLOPRAMIDE HCL 10 MG/2 ML VIAL IV PUSH SCH ×3 (08:55→23:29)
[2016-10-10] MEDS: HYDROmorphone HCL PF 1 MG/ML VIAL IV PRN (17:08)
--- NOTE | 2016-10-10 18:01 | HHI.CCPN ---
Subjective Remarks/Hospital Course 08/24: 71 Year-old male with a medical history significant for COPD on home oxygen who was recently admitted with suspected sepsis/H And was initiated on IV antibiotics and steroids. He had recently been evaluated by GI and underwent EGD on 08/10/2016 and was found to have moderate esophagitis, mild gastritis with pathology subsequently showing Ashley esophagitis as well as colonoscopy on 08/11/2016 with polypectomy and ablation of polyp in ascending colon with hot snare. Patient has been dealing with constipation since his admission. Today when he was trying to have a bowel movement he suddenly became less responsive and then had a large emesis which resulted in aspiration and hemodynamic collapse. Patient initially had large volume emesis with dark maroon blood. CODE BLUE cardiac arrest code was activated. On my arrival patient was in bed CPR had been initiated. Significant gastric contents was still being suctioned out of his oral cavity. ACLS protocol was continued. Patient was intubated following vigorous suctioning of gastric contents from oral cavity as well as with placement of NG tube which is hooked up to suction and about 1.5 L of gastric contents being suctioned out which appeared to be dark maroon in color. Patient initially had a pulse when CODE BLUE was called and subsequently went in PEA arrest followed by asystole during ACLS and then V. fib for which he was defibrillated with 200 J 1, CPR/ACLS protocol was continued and patient eventually had return of spontaneous circulation after about 15 minutes of CPR/ACLS. Patient was transferred to [facility] and placed on mechanical ventilation. I emergently placed left femoral central line for central vascular access and he was started on Levophed for pressor support. 2 units of O- 1 crossmatch blood were ordered and transfused stat. He also received 1 L of normal saline bolus following return of spontaneous circulation. Stat labs were ordered. His hemoglobin on ABG done post resuscitation was 5.6. I did order Protonix 80 mg IV stat followed by 8 mg per hour IV infusion. Patient remained encephalopathic though was minimally responsive following transfer to the ICU. GI consult was requested and I spoke with Dr. Zamarripa at bedside on his arrival. History was obtained by reviewing records, discussion with family/ GI as well as nursing staff. According to patient's daughter he has not been doing well for the last few months in terms of his breathing and has been using his home oxygen more often. He gets extremely short of breath even with the least exertion. 08/25: Remains encephalopathic/ sedated, orally [facility]. Transiently off levophed last night however back to 11 mcg/min currently. Hgb up to 9.4 following 4 units PRBCs transfused last night. 08/26: Tmax 99. Some unresponsive on the ventilator. CT abdomen/pelvis less than revealed small bowel obstruction at site of ventral hernia. No further bleeding noted. Gastric output approximately 700 cc. No bowel movement. 08/27: Tmax 99.7. Currently afebrile. Positive BM overnight approximately 1 L according to RN. No blood noted. 100 cc from gastric tube overnight. Hemoglobin corrected a properly. Likely dilutional. Noted fungemia currently issue. Opens eyes to voice. 08/28: Tmax 99.1. No BMs overnight. Minimal gastric tube output. Hemoglobin stable 9.5. Opens eyes to voice. Not following commands. Appears with singultus this morning. 08/29: 20 beat run of wide complex tachycardia overnight. Noted potassium 3.2. This is been replaced. We'll recheck this afternoon. Circuit exchange yesterday. Patient tolerating pressure control ventilation much better than PRVC/AC ventilation is low probably VQ scan. Less FiO2 requirements. No BM past 24 hour. 08/30: Unable to wean ventilator. 08/31: Patient was extubated on 08/30 however became tachypneic with use of accessory muscles of respiration and required reintubation around 6:30 PM last night and was placed back on mechanical ventilation. Currently sedated, orally intubated on mechanical ventilation. Post intubation chest x-ray suggested fluid overload for which she was given Lasix 40 mg IV with good response having made about 2.5 L urine the last 7 hours. 09/01: Remains sedated, orally intubated on mechanical ventilation. Diuresing well with Lasix. Awaiting EGD in a.m. 09/02: Little progress. CXR clearing nicely. Continue diuresis, tolerate hypernatremia. 09/03: Good diuretic response. CRISTHIAN today with no valvar pathology. 09/04: Too weak to tolerate extubation. Will require trach. 09/05: Sedated, arousable, following commands. Tolerated C Pap trial for 9 hours yesterday with pressure support +10. Tolerating tube feeds. 09/06: Extubated yesterday. Chest x-ray reveals likely mucous plugging in left lung garcia. Currently on nonrebreather mask. Planning of insomnia and thick secretions that he is unable to cough up. 09/07 Patient s/p reintubation and bronch 09/06 mucous plugs in left main stem bronchus sedated with Diprivan and Fentanyl. Afebrile. For possible trach tomorrow. 09/08 No acute events overnight. Sedated with Diprivan and Fentanyl. Afebrile. For trach today. 09/09 No acute events overnight. Sedated and intubated. s/p trach yesterday for PEG tube placement today. 09/10 Patient remains sedated and on ventilator via trach. s/p EGD yesterday PEG tube couldn't be placed endoscopically due to hernia. Surgery consulted for J-tube placement. Afebrile. 09/11 No acute events overnight. Sedated with Diprivan, Fentanyl and intubated. Afebrile. Tolerating tube feeds. 09/12 Patient is off Diprivan remains on Fentanyl infusion tolerated CPAP trials for several hrs and TP's x 2 hrs yesterday now on TP with 50% FIO2. Afebrile. 09/13 Patient tolerated TP's all day yesterday placed on PRVC/AC mode overnight. TF held for high residuals. Afebrile. On Fentanyl infusion however he is awake, restless. 09/14 No acute events overnight. Tolerated TP's all day yesterday placed back on ventilator overnight. On Fentanyl infusion. Afebrile. Repeat KUB this morning showed ileus. 09/15 Patient is off fentanyl infusion and is on Precedex drip pulled his NGT overnight. KUB this morning showed improvements in gaseous distention of bowel. 09/16 Yesterday afternoon an NG tube was placed patient was noted to have tube feeds with possible aspiration.NGT placed this am, KUB pending. 09/17: no acute events overnight. tolerated cpap. back on rate overnight. this morning on trach collar. 09/18: prior history of constipation, now with diarrhea. otherwise, awaiting placement. 09/19: diarrhea improving. still awaiting placement. 09/20: still doing well. on trach collar this morning on my evaluation. insurance has not yet approved placement. 09/21: tired out on trach collar yesterday. placed intermittently on cpap. insurance denied LTAC. will work towards [id number]. 09/22: had [id number] today. insurance continues to request permanent surgical feeding access to go to LTAC. My medical opinion is that patient is clinically improving and tolerating DHT without complication, and could safely be fed through DHT for the coming weeks, and I anticipate his dysphagia to resolve as his strength improves. I do not see a clinical indication for permanent surgical gastric access. We also are not a rehab center, and he is not getting medically appropriate care for his level of medical need. He does not require ICU admission, and medically would be more appropriate for LTAC. 09/23: transferred to [facility]. doing well. tachycardic this morning. diltiazem changed from QID to q6hr for more even distribution. insurance company denied admission to LTAC. will continue to pursue this as an option. otherwise, OOB to chair daily. still working with speech. 09/24: did not sleep well overnight. agitated. awake most of the night. I removed stay sutures from trach this morning. 09/25: Received Haldol overnight, resting now. Not agitated. On PRVC/AC. CPAP trails to resume today. Somnolent but wakes up and follows commands 09/26: Continues to have large amount of tracheal secretions. Levaquin restarted sputum culture ordered. Chest x-ray is pending. Did not tolerate CPAP yesterday became tachycardic and hypoxic Subjective 09/27: Tolerated CPAP approximately 6-7 hours became tachypneic afterwards. Currently on full vent support FiO2 50%. Chest x-ray from yesterday shows bilateral pleural effusions/infiltrate right more than left. CT chest ordered cefepime added sputum culture is pending. More delirious at night, now with eyes open following commands EVENTS FROM 09/27/16 evening Patient was turned to left side for thoracentesis, he acutely desaturated to low 70s prior to starting the procedure. Patient was placed back in supine, bag and mask ventilation performed until sats came up to 98%. Patient was again partially turned to left side and thoracentesis was attempted. Even though ultrasound showed fluid, air was withdrawn into the syringe. Procedure was abandoned and patient was put in neutral position. Peak pressures on the vent increased and patient started desaturating to 70s indicating tension pneumothorax. The thoracentesis Angiocath was used for emergency decompression and bag and mask ventilation became easier. An emergency 8 Filipino pigtail catheter was placed and connected to Pleur-evac. This had significant air leak but patient remained with low oxygen saturation in 70s. Additional 28 Filipino chest tube was emergently placed with a gradual improvement in saturation to mid 80s. (Chest tube/Pigtail tray was not available immediately at the bedside , and the tech had to run to the [facility] to get the chest tube tray). Patient was placed back on PC/ACmechanical ventilation with low tidal volume. Post chest tube chest x-ray shows good reexpansion of the lung and good positioning of the chest tubes. But the left lung is collapsed with mediastinal shift to the left indicating bronchial obstruction probably from mucous plug. I attempted bronchoscopy with intubating bronchoscope available here at [place]. I was unable to suction out any mucus plugging, or visualize clearly. Patient was transferred to [facility] in [facility]. Dr. Espinoza performed therapeutic bronchoscopy with pediatric bronchoscope, and he was in able to clear a significant amount of secretion with reexpansion of lung. 09/28: Chest x-ray today shows right sided pneumothorax almost resolved. Good reexpansion of the left lung also bibasilar infiltrates seen. Sputum culture growing gram-negative rods. Patient is awake alert on full vent support. Levophed is being weaned currently on 4 mics per minute 09/29: Remains on mechanical ventilation via tracheostomy. Continues to have persistent air leak from right sided pigtail catheter as well as chest tube. Chest x-ray today shows slight increase in size of right pneumothorax. 09/30: Remains on mechanical ventilation via tracheostomy. Very small air leak noted in right sided chest tube. 10/01: Remains on mechanical ventilation via tracheostomy. Daily C Pap and T piece trials. Very small air leak noted. Decreased suction on right chest tube to -20 cm water pressure today. 10/02: Alert, breathing comfortably on vent. Continue weaning trials. 10/03: Continue daily SBTs and Dakin's dressing changes. 10/04: Awake and alert, following commands. Daily C Pap/T piece trials as tolerated. 10/05: Awake, alert, following commands. Persistent air leak in right chest tube noted. Tolerating tube feeds. Tolerates T piece during daytime. Significant respiratory secretions. 10/07: doing well. on trach collar x 48h. no air leak. cxr stable. minimal chest tube output. 10/08: no significant change. continues on trach collar. awaiting placement. patient is pulling trach collar off when he wants attention and banging it on the side rails until he gets hypoxic enough for alarms to go off. He has had to be restrained to prevent his hypoxia. 10/09: still awaiting insurance authorization for placement. no significant changes. 10/10: insurance approved for bed at [facility]. just awaiting bed. no significant changes. Objective Vital Signs Date Time Temp Pulse Resp B/P Pulse Ox O2 Delivery O2 Flow Rate FiO2 10/10/16 16:00 98.6 101 18 107/64 99 10/10/16 08:40 T-piece 50 10/09/16 20:30 6.00 Intake and Output 10/09/16 10/09/16 10/10/16 08:00 16:00 00:00 Intake Total 1003 ml 773 ml 460 ml Output Total 700 ml 675 ml 0 ml Balance 303 ml 98 ml 460 ml Result Diagram: 10/09/16 0409 Imaging Last Impressions Abdomen X-Ray 09/15/16 0600 Signed Impressions: Service Date/Time: Thursday, September 15, 2016 03:16 - CONCLUSION: 1. Improved gaseous distention of bowel since September 14. Mild distention persists. 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 There is concentric mural thrombus. This aneurysm is not amenable to thrombin injection. Polo Moore Jr., MD Lung Scan- Nuclear Medicine 08/29/16 0000 Signed Impressions: Service Date/Time: Monday, August 29, 2016 10:20 - CONCLUSION: Low probability for pulmonary embolus. Lex Lopez MD Brain MRI 08/27/16 0000 Signed Impressions: Service Date/Time: August 15:13 - CONCLUSION: No evidence of acute infarct, hemorrhage, mass or edema. No findings to suggest significant anoxic injury. Kit Power MD Renal Ultrasound 08/25/16 Signed Impressions: Service Date/Time: Wednesday, August 24, 2016 21:53 - CONCLUSION: 1. There is no hydronephrosis. Both kidneys demonstrate mild increased echotexture of the parenchyma suggesting medical renal disease. 2. Trace perihepatic free fluid and bilateral pleural effusions. Lex Malik MD Chest CT 08/25/16 Signed Impressions: Service Date/Time: Thursday, August 25, 2016 21:20 - CONCLUSION: 1. Bilateral pneumonia and aspiration would be in the differential. There is dependent consolidation/atelectasis and small effusions of the bases as well. 2. Upper limits of normal to mildly enlarged mediastinal lymph nodes, most likely reactive. 3. Coronary artery calcification. 4. Right rib fractures, including acute fractures laterally of the third, fourth and fifth. There are old, healed fractures anteriorly of the right second and third ribs.. Lex Lopez MD Abdomen/Pelvis CT 08/25/16 Signed Impressions: Service Date/Time: Thursday, August 25, 2016 20:20 - CONCLUSION: 1. Ventral hernia containing small bowel and with associated small bowel obstruction. The defect is broad; I believe the obstruction is probably related to scarring and/or adhesions within the hernia sac. I don't see a mass. 2. Distended stomach despite NG tube present. 3. Severe aortoiliac atherosclerosis. No aneurysm. Lex Lopez MD Objective Remarks GENERAL: Patient is 71 yo lying in bed in bed, on trach collar via tracheostomy , follows commands SKIN: Warm and dry. HEAD: Normocephalic. EYES: No scleral icterus. No injection or drainage. NECK: trachea midline. No JVD. Trach in place. on trach collar. CARDIOVASCULAR: Regular rate and rhythm RESPIRATORY: unlabored. equal chest rise. GASTROINTESTINAL: Abdomen soft, non-tender, nondistended. MUSCULOSKELETAL: No cyanosis, +1 edema. NEURO: Awake, follows commands. Grossly nonfocal A/P Assessment and Plan Neuro/Psych: Status post CPR 15 minutes Depression NOS Agitated Delirium --Neurochecks per ICU protocol -- Zyprexa 5 mg q8h --Melatonin q hs for sleep --prn breakthrough haldol for agitation --d/cd ativan due to paradoxical agitation. Continue Xanax 0.25 mg by mouth every 8 hours when necessary 09/26 --EEG 08/25 revealed mild to moderate encephalopathy. No epileptiform activity. --MRI brain 08/27 revealed no acute findings. Cardiovascular: Cardiac arrest status post CPR History dyslipidemia History of hypertension PVD Monitor HR and BP keep MAP>65mmHg Starting Cardizem 30 minutes by mouth 4 times a day on 09/30 for Tachyarrhythmia Cardiac arrest status post CPR. s/p aggressive fluid resuscitation. minimal troponin elevation following cardiac arrest noted Echo 2D revealed EF 35-40%. Moderate LVH. Mitral valve calcified. Mild TR. Pulmonary: Tension pneumothorax s/p chest tube 09/27 Complete left lung collapse from mucous plugging 09/27 HCAP with GNR Acute respiratory failure secondary to aspiration pneumonia- Reintubated 09/06 s/p Trach on 09/08 End-stage COPD. Oxygen dependent FEV1 28%, FVC 1.6. S/P Aspiration 09/15 Status post emergency chest tube 2 for tension pneumothorax (09/27) following right attempted thoracentesis, 28 Filipino chest tube to water seal. Status post bronchoscopy for mucous plugging of the left main bronchus 09/27 s/p reintubation and bronch 09/06 mucous plugs in left main stem bronchus T piece as tolerated. Bronchodilators, Pulmicort twice a day Needs aggressive pulmonary rehab with LTAC. Continues to be very weak VQ scan low probability 08/29 pulm toilet, trach care to stretcher chair daily. GI: Small bowel obstruction - resolved Upper GI bleed plus esophageal rule out aorto esophageal fistula History of Ashley esophagitis History of colonic polyps History of ventral hernia status post repair last by Dr. Roberts Diarrhea Continue tube feeds and advance to goal as tolerated. Continue Reglan 5mg PO Q8, Senna, Lactulose, Colace. having BM From a GI standpoint, use nasogastric access at this time. continue frequent speech eval for swallowing, once clinically improved. s/p EGD 09/09: Deformed pylorus/antrum, nodular mucosa-multiple biopsies taken esophagitis distal esophagus-biopsy unable to place PEG endoscopically due to hiatal hernia. CT abdomen/pelvis revealed possible small bowel obstruction at level of ventral hernia. Severe aortoiliac disease. Dr. Roberts/general surgery evaluated. Very poor surgical candidate this time. EGD 08/25 revealed esophageal nipple. Clots noted within the gastric contents without active bleeding. Protonix for GI prophylaxis, 40 mg IV q12 Hold Bowel regimen for diarrhea. 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 the patient does not have a contraindication to replacement of DHT if it comes out accidentally. Continue speech/swallow eval and strengthening. I do think he will be strong enough to eat PO in the near future and will not medically require surgical feeding tube. Surgical feeding tube high risk given hernia. risks outweigh benefits. we have a defined long-term enteral feeding plan. Renal/: Acute kidney injury- resolved Hypernatremia History of bladder outlet obstruction Urinary retention Monitor renal function, I/O's, electrolytes replacement per protocol. Free water flushes 300ml Q6 monitor sodium level No hydronephrosis on CT abdomen/pelvis -- menendez replaced due to urinary retention. would recommend 6 weeks of menendez with bladder training before removal (2 failed trials of removal with urinary retention) Continue Cardura ID: New HCAP- resolved. Severe sepsis- resolved. UTI- resolved. Fungemia- resolved. Stenotrophomonas HCAP- resolved. s/p course of Levaquin 09/10 - 09/16 s/p course of micafungin for fungemia s/p levaquin, cefepime. culture for new fever. ID following Pertinent cultures 09/26: Sputum Stenotrophomonas 09/08 Bronch: S. Maltophilia, 09/06 Bronch- S. Maltophilia, 09/03 - blood culture - no growth 09/02 - blood culture - no growth 08/27 - blood from central line -Ashley Glabrata 08/27 -arterial line blood - pending 08/26 - sputum -Serratia 08/25 - blood cultures 2 -Ashley 08/25 - urine -no growth 08/22 - blood cultures 2 - no growth 08/21 - urine - no growth 08/20 - blood cultures 2 - 1 out of 4 staph epi Endocrine: Chronic prednisone use secondary to COPD SSI for glycemic control as needed. Heme: s/p Acute blood loss anemia History of prostate cancer Status post 4 units PRBCs ands 2 units FFP on 08/24. Given one unit PRBCs 08/26, 1U 09/26 Additional 1 unit 09/28/16 Monitor CBC H/H stable. MSK: PT/OT evaluate and treat. Attempt up to chair daily with PT Access - piv's Prophylaxis - GI -Protonix 40 q12 - DVT - SCD/ heparin 5000 u Sq Q12- cleared by GI. Resumed heparin 09/30 Overall impression: Slow progress s/p cardiopulmonary arrest. awaiting placement. Papi Keating MD Oct 10, 2016 18:01
[2016-10-10] MEDS: MELATONIN 5 MG TAB PO SCH (19:52)
[2016-10-11] VITALS (14 sets, daily range): BP systolic 93–114; BP diastolic 25–69; PULSE 90–130; RESP 17–26; TEMP 98.1–98.9; O2SAT 93–100
[2016-10-11] MEDS: OLANZapine ODT 5 MG TAB PO SCH ×3 (00:08→17:00)
[2016-10-11] MEDS: ALPRAZolam 0.25 MG TAB PO PRN ×2 (00:08→10:09)
[2016-10-11] MEDS: oxyCODONE HCL ORAL CONC 20 MG/ML SYRINGE PO PRN ×2 (02:25→10:09)
[2016-10-11] MEDS: HYDROmorphone HCL PF 1 MG/ML VIAL IV PRN ×4 (04:45→23:42)
[2016-10-11 05:04] LABS: MEAN CELL VOLUME 91.7 FL (80.0-100.0); MEAN CORPUSCULAR HGB CONC 32.7 % (32.0-36.0); PLATELET COUNT 366 TH/MM3 (150-450); RED BLOOD COUNT 3.17 MIL/MM3 (4.50-5.90); RED CELL DISTRIBUTION WIDTH 15.8 % (11.6-17.2); WHITE BLOOD COUNT 13.8 TH/MM3 (4.0-11.0)
[2016-10-11] MEDS: FREE WATER G-TUBE SCH ×4 (05:13→23:42)
[2016-10-11] MEDS: INSULIN NovoLIN REGULAR SUPPLEMENTAL SCALE SQ SCH ×4 (05:14→17:42)
[2016-10-11] MEDS: NYSTATIN 100,000 U/GM PWD 15 GM BTL TOPICAL SCH ×3 (05:14→20:18)
[2016-10-11 05:35] LABS: HEMO FLAGS AUTO DIFF
[2016-10-11] MEDS: RESP: BUDESONIDE 0.5 MG/2 ML NEB NEB SCH ×2 (07:11→19:49)
[2016-10-11] MEDS: RESP: ALBUTEROL 2.5 MG/IPRATROPIUM 0.5 MG NEB (PRN) INH (07:11)
[2016-10-11 07:55] LABS: BANDS 5 % (0-6); BASOPHILS 1 % (0-2); METAMYELOCYTES 3 % (0-1); MYELOCYTES 2 % (0-0); NEUTROPHIL # MANUAL DIFF 10.2 TH/MM3 (1.8-7.7); POLYS (SEG NEUTROPHILS) 64 % (16-70); WBC DIFF SAMPLE 100
[2016-10-11 07:56] LABS: PLATELET ESTIMATE SMEAR NORMAL (NORMAL); PLATELET MORPHOLOGY NORMAL (NORMAL); SCAN/DIFF FINAL DIFF MANUAL
[2016-10-11] MEDS: CHLORHEXIDINE GLUCONATE 0.12% 30 ML CUP SCH ×2 (08:00→20:17)
[2016-10-11] MEDS: SODIUM CHLORIDE 0.9% FLUSH 5 ML FLUSH IVF SCH (09:00)
[2016-10-11] MEDS: DOCUSATE SODIUM 100 MG/10 ML UDC PO SCH ×2 (09:42→20:17)
[2016-10-11] MEDS: PANTOPRAZOLE SODIUM 40 MG VIAL IV PUSH SCH ×2 (09:42→20:18)
[2016-10-11] MEDS: DOXAZOSIN MESYLATE 2 MG TAB PO SCH (09:42)
[2016-10-11] MEDS: LACTULOSE SYRUP 20 GM/30 ML CUP PO SCH (09:42)
[2016-10-11] MEDS: SENNOSIDES SYRUP 8.8 MG/5 ML CUP PO SCH (09:42)
[2016-10-11] MEDS: DILTIAZEM HCL 30 MG TAB PO SCH ×4 (09:42→20:18)
[2016-10-11] MEDS: HEPARIN SODIUM - SQ 10,000 UNITS/ML VIAL SQ SCH ×2 (09:43→20:18)
[2016-10-11] MEDS: METOCLOPRAMIDE HCL 10 MG/2 ML VIAL IV PUSH SCH ×3 (09:44→23:42)
[2016-10-11] MEDS: MULTIVITAMINS/MINERALS THERAPEUTIC TAB PO SCH (09:47)
[2016-10-11] MEDS: SODIUM CHLORIDE 0.9% FLUSH 10 ML FLUSH IV FLUSH SCH (10:08)
--- NOTE | 2016-10-11 16:50 | HHI.CCPN ---
Subjective Remarks/Hospital Course 08/24: 71 Year-old male with a medical history significant for COPD on home oxygen who was recently admitted with suspected sepsis/H And was initiated on IV antibiotics and steroids. He had recently been evaluated by GI and underwent EGD on 08/10/2016 and was found to have moderate esophagitis, mild gastritis with pathology subsequently showing Ashley esophagitis as well as colonoscopy on 08/11/2016 with polypectomy and ablation of polyp in ascending colon with hot snare. Patient has been dealing with constipation since his admission. Today when he was trying to have a bowel movement he suddenly became less responsive and then had a large emesis which resulted in aspiration and hemodynamic collapse. Patient initially had large volume emesis with dark maroon blood. CODE BLUE cardiac arrest code was activated. On my arrival patient was in bed CPR had been initiated. Significant gastric contents was still being suctioned out of his oral cavity. ACLS protocol was continued. Patient was intubated following vigorous suctioning of gastric contents from oral cavity as well as with placement of NG tube which is hooked up to suction and about 1.5 L of gastric contents being suctioned out which appeared to be dark maroon in color. Patient initially had a pulse when CODE BLUE was called and subsequently went in PEA arrest followed by asystole during ACLS and then V. fib for which he was defibrillated with 200 J 1, CPR/ACLS protocol was continued and patient eventually had return of spontaneous circulation after about 15 minutes of CPR/ACLS. Patient was transferred to [facility] and placed on mechanical ventilation. I emergently placed left femoral central line for central vascular access and he was started on Levophed for pressor support. 2 units of O- 1 crossmatch blood were ordered and transfused stat. He also received 1 L of normal saline bolus following return of spontaneous circulation. Stat labs were ordered. His hemoglobin on ABG done post resuscitation was 5.6. I did order Protonix 80 mg IV stat followed by 8 mg per hour IV infusion. Patient remained encephalopathic though was minimally responsive following transfer to the ICU. GI consult was requested and I spoke with Dr. Zamarripa at bedside on his arrival. History was obtained by reviewing records, discussion with family/ GI as well as nursing staff. According to patient's daughter he has not been doing well for the last few months in terms of his breathing and has been using his home oxygen more often. He gets extremely short of breath even with the least exertion. 08/25: Remains encephalopathic/ sedated, orally [facility]. Transiently off levophed last night however back to 11 mcg/min currently. Hgb up to 9.4 following 4 units PRBCs transfused last night. 08/26: Tmax 99. Some unresponsive on the ventilator. CT abdomen/pelvis less than revealed small bowel obstruction at site of ventral hernia. No further bleeding noted. Gastric output approximately 700 cc. No bowel movement. 08/27: Tmax 99.7. Currently afebrile. Positive BM overnight approximately 1 L according to RN. No blood noted. 100 cc from gastric tube overnight. Hemoglobin corrected a properly. Likely dilutional. Noted fungemia currently issue. Opens eyes to voice. 08/28: Tmax 99.1. No BMs overnight. Minimal gastric tube output. Hemoglobin stable 9.5. Opens eyes to voice. Not following commands. Appears with singultus this morning. 08/29: 20 beat run of wide complex tachycardia overnight. Noted potassium 3.2. This is been replaced. We'll recheck this afternoon. Circuit exchange yesterday. Patient tolerating pressure control ventilation much better than PRVC/AC ventilation is low probably VQ scan. Less FiO2 requirements. No BM past 24 hour. 08/30: Unable to wean ventilator. 08/31: Patient was extubated on 08/30 however became tachypneic with use of accessory muscles of respiration and required reintubation around 6:30 PM last night and was placed back on mechanical ventilation. Currently sedated, orally intubated on mechanical ventilation. Post intubation chest x-ray suggested fluid overload for which she was given Lasix 40 mg IV with good response having made about 2.5 L urine the last 7 hours. 09/01: Remains sedated, orally intubated on mechanical ventilation. Diuresing well with Lasix. Awaiting EGD in a.m. 09/02: Little progress. CXR clearing nicely. Continue diuresis, tolerate hypernatremia. 09/03: Good diuretic response. CRISTHIAN today with no valvar pathology. 09/04: Too weak to tolerate extubation. Will require trach. 09/05: Sedated, arousable, following commands. Tolerated C Pap trial for 9 hours yesterday with pressure support +10. Tolerating tube feeds. 09/06: Extubated yesterday. Chest x-ray reveals likely mucous plugging in left lung garcia. Currently on nonrebreather mask. Planning of insomnia and thick secretions that he is unable to cough up. 09/07 Patient s/p reintubation and bronch 09/06 mucous plugs in left main stem bronchus sedated with Diprivan and Fentanyl. Afebrile. For possible trach tomorrow. 09/08 No acute events overnight. Sedated with Diprivan and Fentanyl. Afebrile. For trach today. 09/09 No acute events overnight. Sedated and intubated. s/p trach yesterday for PEG tube placement today. 09/10 Patient remains sedated and on ventilator via trach. s/p EGD yesterday PEG tube couldn't be placed endoscopically due to hernia. Surgery consulted for J-tube placement. Afebrile. 09/11 No acute events overnight. Sedated with Diprivan, Fentanyl and intubated. Afebrile. Tolerating tube feeds. 09/12 Patient is off Diprivan remains on Fentanyl infusion tolerated CPAP trials for several hrs and TP's x 2 hrs yesterday now on TP with 50% FIO2. Afebrile. 09/13 Patient tolerated TP's all day yesterday placed on PRVC/AC mode overnight. TF held for high residuals. Afebrile. On Fentanyl infusion however he is awake, restless. 09/14 No acute events overnight. Tolerated TP's all day yesterday placed back on ventilator overnight. On Fentanyl infusion. Afebrile. Repeat KUB this morning showed ileus. 09/15 Patient is off fentanyl infusion and is on Precedex drip pulled his NGT overnight. KUB this morning showed improvements in gaseous distention of bowel. 09/16 Yesterday afternoon an NG tube was placed patient was noted to have tube feeds with possible aspiration.NGT placed this am, KUB pending. 09/17: no acute events overnight. tolerated cpap. back on rate overnight. this morning on trach collar. 09/18: prior history of constipation, now with diarrhea. otherwise, awaiting placement. 09/19: diarrhea improving. still awaiting placement. 09/20: still doing well. on trach collar this morning on my evaluation. insurance has not yet approved placement. 09/21: tired out on trach collar yesterday. placed intermittently on cpap. insurance denied LTAC. will work towards [id number]. 09/22: had [id number] today. insurance continues to request permanent surgical feeding access to go to LTAC. My medical opinion is that patient is clinically improving and tolerating DHT without complication, and could safely be fed through DHT for the coming weeks, and I anticipate his dysphagia to resolve as his strength improves. I do not see a clinical indication for permanent surgical gastric access. We also are not a rehab center, and he is not getting medically appropriate care for his level of medical need. He does not require ICU admission, and medically would be more appropriate for LTAC. 09/23: transferred to [facility]. doing well. tachycardic this morning. diltiazem changed from QID to q6hr for more even distribution. insurance company denied admission to LTAC. will continue to pursue this as an option. otherwise, OOB to chair daily. still working with speech. 09/24: did not sleep well overnight. agitated. awake most of the night. I removed stay sutures from trach this morning. 09/25: Received Haldol overnight, resting now. Not agitated. On PRVC/AC. CPAP trails to resume today. Somnolent but wakes up and follows commands 09/26: Continues to have large amount of tracheal secretions. Levaquin restarted sputum culture ordered. Chest x-ray is pending. Did not tolerate CPAP yesterday became tachycardic and hypoxic Subjective 09/27: Tolerated CPAP approximately 6-7 hours became tachypneic afterwards. Currently on full vent support FiO2 50%. Chest x-ray from yesterday shows bilateral pleural effusions/infiltrate right more than left. CT chest ordered cefepime added sputum culture is pending. More delirious at night, now with eyes open following commands EVENTS FROM 09/27/16 evening Patient was turned to left side for thoracentesis, he acutely desaturated to low 70s prior to starting the procedure. Patient was placed back in supine, bag and mask ventilation performed until sats came up to 98%. Patient was again partially turned to left side and thoracentesis was attempted. Even though ultrasound showed fluid, air was withdrawn into the syringe. Procedure was abandoned and patient was put in neutral position. Peak pressures on the vent increased and patient started desaturating to 70s indicating tension pneumothorax. The thoracentesis Angiocath was used for emergency decompression and bag and mask ventilation became easier. An emergency 8 Greenlandic pigtail catheter was placed and connected to Pleur-evac. This had significant air leak but patient remained with low oxygen saturation in 70s. Additional 28 Greenlandic chest tube was emergently placed with a gradual improvement in saturation to mid 80s. (Chest tube/Pigtail tray was not available immediately at the bedside , and the tech had to run to the [facility] to get the chest tube tray). Patient was placed back on PC/ACmechanical ventilation with low tidal volume. Post chest tube chest x-ray shows good reexpansion of the lung and good positioning of the chest tubes. But the left lung is collapsed with mediastinal shift to the left indicating bronchial obstruction probably from mucous plug. I attempted bronchoscopy with intubating bronchoscope available here at [place]. I was unable to suction out any mucus plugging, or visualize clearly. Patient was transferred to [facility] in [facility]. Dr. Espinoza performed therapeutic bronchoscopy with pediatric bronchoscope, and he was in able to clear a significant amount of secretion with reexpansion of lung. 09/28: Chest x-ray today shows right sided pneumothorax almost resolved. Good reexpansion of the left lung also bibasilar infiltrates seen. Sputum culture growing gram-negative rods. Patient is awake alert on full vent support. Levophed is being weaned currently on 4 mics per minute 09/29: Remains on mechanical ventilation via tracheostomy. Continues to have persistent air leak from right sided pigtail catheter as well as chest tube. Chest x-ray today shows slight increase in size of right pneumothorax. 09/30: Remains on mechanical ventilation via tracheostomy. Very small air leak noted in right sided chest tube. 10/01: Remains on mechanical ventilation via tracheostomy. Daily C Pap and T piece trials. Very small air leak noted. Decreased suction on right chest tube to -20 cm water pressure today. 10/02: Alert, breathing comfortably on vent. Continue weaning trials. 10/03: Continue daily SBTs and Dakin's dressing changes. 10/04: Awake and alert, following commands. Daily C Pap/T piece trials as tolerated. 10/05: Awake, alert, following commands. Persistent air leak in right chest tube noted. Tolerating tube feeds. Tolerates T piece during daytime. Significant respiratory secretions. 10/07: doing well. on trach collar x 48h. no air leak. cxr stable. minimal chest tube output. 10/08: no significant change. continues on trach collar. awaiting placement. patient is pulling trach collar off when he wants attention and banging it on the side rails until he gets hypoxic enough for alarms to go off. He has had to be restrained to prevent his hypoxia. 10/09: still awaiting insurance authorization for placement. no significant changes. 10/10: insurance approved for bed at [facility]. just awaiting bed. no significant changes. 10/11: still on trach collar. still awaiting bed at [facility]. patient without complaints. Objective Vital Signs Date Time Temp Pulse Resp B/P Pulse Ox O2 Delivery O2 Flow Rate FiO2 10/11/16 14:00 104 10/11/16 12:00 21 105/62 96 10/11/16 11:22 T-piece 50 10/11/16 08:00 98.7 10/09/16 20:30 6.00 Intake and Output 10/10/16 10/10/16 10/11/16 08:00 16:00 00:00 Intake Total 1054 ml 807 ml 413 ml Output Total 1000 ml 675 ml 375 ml Balance 54 ml 132 ml 38 ml Result Diagram: 10/11/16 0356 Imaging Last Impressions Abdomen X-Ray 09/15/16 0600 Signed Impressions: Service Date/Time: Thursday, September 15, 2016 03:16 - CONCLUSION: 1. Improved gaseous distention of bowel since September 14. Mild distention persists. 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 There is concentric mural thrombus. This aneurysm is not amenable to thrombin injection. Polo Moore Jr., MD Lung Scan- Nuclear Medicine 08/29/16 0000 Signed Impressions: Service Date/Time: Monday, August 29, 2016 10:20 - CONCLUSION: Low probability for pulmonary embolus. Lex Lopez MD Brain MRI 08/27/16 Signed Impressions: Service Date/Time: August 15:13 - CONCLUSION: No evidence of acute infarct, hemorrhage, mass or edema. No findings to suggest significant anoxic injury. Kit Power MD Renal Ultrasound 08/25/16 Signed Impressions: Service Date/Time: Wednesday, August 24, 2016 21:53 - CONCLUSION: 1. There is no hydronephrosis. Both kidneys demonstrate mild increased echotexture of the parenchyma suggesting medical renal disease. 2. Trace perihepatic free fluid and bilateral pleural effusions. Lex Malik MD Chest CT 08/25/16 Signed Impressions: Service Date/Time: Thursday, August 25, 2016 21:20 - CONCLUSION: 1. Bilateral pneumonia and aspiration would be in the differential. There is dependent consolidation/atelectasis and small effusions of the bases as well. 2. Upper limits of normal to mildly enlarged mediastinal lymph nodes, most likely reactive. 3. Coronary artery calcification. 4. Right rib fractures, including acute fractures laterally of the third, fourth and fifth. There are old, healed fractures anteriorly of the right second and third ribs.. Lex Lopez MD Abdomen/Pelvis CT 08/25/16 Signed Impressions: Service Date/Time: Thursday, August 25, 2016 20:20 - CONCLUSION: 1. Ventral hernia containing small bowel and with associated small bowel obstruction. The defect is broad; I believe the obstruction is probably related to scarring and/or adhesions within the hernia sac. I don't see a mass. 2. Distended stomach despite NG tube present. 3. Severe aortoiliac atherosclerosis. No aneurysm. Lex Lopez MD Objective Remarks GENERAL: Patient is 71 yo lying in bed in bed, on trach collar via tracheostomy , follows commands SKIN: Warm and dry. HEAD: Normocephalic. EYES: No scleral icterus. No injection or drainage. NECK: trachea midline. No JVD. Trach in place. on trach collar. CARDIOVASCULAR: Regular rate and rhythm RESPIRATORY: unlabored. equal chest rise. GASTROINTESTINAL: Abdomen soft, non-tender, nondistended. MUSCULOSKELETAL: No cyanosis, +1 edema. NEURO: Awake, follows commands. Grossly nonfocal A/P Assessment and Plan Neuro/Psych: Status post CPR 15 minutes Depression NOS Agitated Delirium --Neurochecks per ICU protocol -- Zyprexa 5 mg q8h --Melatonin q hs for sleep --prn breakthrough haldol for agitation --d/cd ativan due to paradoxical agitation. Continue Xanax 0.25 mg by mouth every 8 hours when necessary 09/26 --EEG 08/25 revealed mild to moderate encephalopathy. No epileptiform activity. --MRI brain 08/27 revealed no acute findings. Cardiovascular: Cardiac arrest status post CPR History dyslipidemia History of hypertension PVD Monitor HR and BP keep MAP>65mmHg Starting Cardizem 30 minutes by mouth 4 times a day on 09/30 for Tachyarrhythmia Cardiac arrest status post CPR. s/p aggressive fluid resuscitation. minimal troponin elevation following cardiac arrest noted Echo 2D revealed EF 35-40%. Moderate LVH. Mitral valve calcified. Mild TR. Pulmonary: Tension pneumothorax s/p chest tube 09/27 Complete left lung collapse from mucous plugging 09/27 HCAP with GNR Acute respiratory failure secondary to aspiration pneumonia- Reintubated 09/06 s/p Trach on 09/08 End-stage COPD. Oxygen dependent FEV1 28%, FVC 1.6. S/P Aspiration 09/15 Status post emergency chest tube 2 for tension pneumothorax (09/27) following right attempted thoracentesis, 28 Greenlandic chest tube to water seal. Status post bronchoscopy for mucous plugging of the left main bronchus 09/27 s/p reintubation and bronch 09/06 mucous plugs in left main stem bronchus T piece as tolerated. Bronchodilators, Pulmicort twice a day Needs aggressive pulmonary rehab with LTAC. Continues to be very weak VQ scan low probability 08/29 pulm toilet, trach care to stretcher chair daily. GI: Small bowel obstruction - resolved Upper GI bleed plus esophageal rule out aorto esophageal fistula History of Ashley esophagitis History of colonic polyps History of ventral hernia status post repair last by Dr. Roberts Diarrhea Continue tube feeds and advance to goal as tolerated. Continue Reglan 5mg PO Q8, Senna, Lactulose, Colace. having BM From a GI standpoint, use nasogastric access at this time. continue frequent speech eval for swallowing, once clinically improved. s/p EGD 3/22: Deformed pylorus/antrum, nodular mucosa-multiple biopsies taken esophagitis distal esophagus-biopsy unable to place PEG endoscopically due to hiatal hernia. CT abdomen/pelvis revealed possible small bowel obstruction at level of ventral hernia. Severe aortoiliac disease. Dr. Roberts/general surgery evaluated. Very poor surgical candidate this time. EGD 08/25 revealed esophageal nipple. Clots noted within the gastric contents without active bleeding. Protonix for GI prophylaxis, 40 mg IV q12 Hold Bowel regimen for diarrhea. FDC nutrition plan: Feeding per DHT. the patient does not have a contraindication to replacement of DHT if it comes out accidentally. Continue speech/swallow eval and strengthening. I do think he will be strong enough to eat PO in the near future and will not medically require surgical feeding tube. Surgical feeding tube high risk given hernia. risks outweigh benefits. we have a defined long-term enteral feeding plan. Renal/: Acute kidney injury- resolved Hypernatremia History of bladder outlet obstruction Urinary retention Monitor renal function, I/O's, electrolytes replacement per protocol. Free water flushes 300ml Q6 monitor sodium level No hydronephrosis on CT abdomen/pelvis -- menendez replaced due to urinary retention. would recommend 6 weeks of menendez with bladder training before removal (2 failed trials of removal with urinary retention, last trial 10/09) Continue Cardura ID: New HCAP- resolved. Severe sepsis- resolved. UTI- resolved. Fungemia- resolved. Stenotrophomonas HCAP- resolved. s/p course of Levaquin 09/10 - 09/16 s/p course of micafungin for fungemia s/p levaquin, cefepime. culture for new fever. ID following Pertinent cultures 09/26: Sputum Stenotrophomonas 09/08 Bronch: S. Maltophilia, 09/06 Bronch- S. Maltophilia, 09/03 - blood culture - no growth 09/02 - blood culture - no growth 08/27 - blood from central line -Ashley Glabrata 08/27 -arterial line blood - pending 08/26 - sputum -Serratia 08/25 - blood cultures 2 -Ashley 08/25 - urine -no growth 08/22 - blood cultures 2 - no growth 08/21 - urine - no growth 08/20 - blood cultures 2 - 1 out of 4 staph epi Endocrine: Chronic prednisone use secondary to COPD SSI for glycemic control as needed. Heme: s/p Acute blood loss anemia History of prostate cancer Status post 4 units PRBCs ands 2 units FFP on 08/24. Given one unit PRBCs 08/26, 1U 09/26 Additional 1 unit 09/28/16 Monitor CBC H/H stable. MSK: PT/OT evaluate and treat. Attempt up to chair daily with PT Access - piv's Prophylaxis - GI -Protonix 40 q12 - DVT - SCD/ heparin 5000 u Sq Q12- cleared by GI. Resumed heparin 09/30 Overall impression: Slow progress s/p cardiopulmonary arrest. awaiting placement. Papi Keating MD Oct 11, 2016 16:50
[2016-10-11] MEDS: MELATONIN 5 MG TAB PO SCH (20:18)
[2016-10-12] VITALS (8 sets, daily range): BP systolic 100–118; BP diastolic 58–67; PULSE 96–130; RESP 17–26; TEMP 97.8–98.4; O2SAT 95–100
[2016-10-12] MEDS: OLANZapine ODT 5 MG TAB PO SCH ×2 (00:43→08:24)
[2016-10-12] MEDS: oxyCODONE HCL ORAL CONC 20 MG/ML SYRINGE PO PRN ×2 (00:48→08:24)
--- NOTE | 2016-10-12 04:35 | RADRPT ---
EXAM DATE/TIME: 10/12/2016 03:31 [place] COMPARISON: CHEST SINGLE AP, October 07, 2016, 14:15. INDICATIONS : Shortness of breath. MEDICAL HISTORY : Chronic obstructive pulmonary disease. Emphysema. SURGICAL HISTORY : None. ENCOUNTER: Subsequent ACUITY: 1 month PAIN SCORE: Non-responsive. LOCATION: Bilateral chest FINDINGS: The previously noted small right apical pneumothorax has resolved. The tracheostomy tube and NG tube remain in place. There continue to be pulmonary infiltrates throughout both lung garcia which are abo ut the same. The heart size is stable. The bony structures are stable. CONCLUSION: 1. The previously noted right apical pneumothorax has resolved 2. No significant change in bilateral pulmonary infiltrates. Chris Koehler MD on October 12, 2016 at 4:33 Board Certified Radiologist. This report was verified electronically.
[2016-10-12 04:41] LABS: HEMATOCRIT 27.7 % (39.0-51.0); MEAN CELL VOLUME 90.5 FL (80.0-100.0); MEAN CORPUSCULAR HEMOGLOBIN 30.6 PG (27.0-34.0); MEAN CORPUSCULAR HGB CONC 33.9 % (32.0-36.0); PLATELET COUNT 388 TH/MM3 (150-450); RED BLOOD COUNT 3.06 MIL/MM3 (4.50-5.90); RED CELL DISTRIBUTION WIDTH 15.8 % (11.6-17.2); REVIEW FLAG FINAL; WHITE BLOOD COUNT 13.5 TH/MM3 (4.0-11.0)
[2016-10-12] MEDS: ALPRAZolam 0.25 MG TAB PO PRN (04:56)
[2016-10-12] MEDS: NYSTATIN 100,000 U/GM PWD 15 GM BTL TOPICAL SCH (06:00)
[2016-10-12] MEDS: FREE WATER G-TUBE SCH ×2 (06:00→11:48)
[2016-10-12] MEDS: INSULIN NovoLIN REGULAR SUPPLEMENTAL SCALE SQ SCH ×3 (06:00→12:00)
[2016-10-12] MEDS: SODIUM CHLORIDE 0.9% FLUSH 10 ML FLUSH IV FLUSH SCH (07:55)
[2016-10-12] MEDS: SODIUM CHLORIDE 0.9% FLUSH 5 ML FLUSH IVF SCH (07:55)
[2016-10-12] MEDS: CHLORHEXIDINE GLUCONATE 0.12% 30 ML CUP SCH (08:00)
--- NOTE | 2016-10-12 08:05 | PD.TRANSFR ---
Transfer Summary Admission Date Aug 20, 2016 at 14:10 Admitting Diagnosis pneumonia,sepsis,YUMIKO Diagnoses: (1) Sepsis Diagnosis: Principal (2) HCAP (healthcare-associated pneumonia) Diagnosis: Principal (3) COPD exacerbation Diagnosis: Principal (4) Acute kidney injury Diagnosis: Principal (5) Metabolic alkalosis Diagnosis: Principal (6) Pneumothorax Diagnosis: Principal (7) PEA (Pulseless electrical activity) Diagnosis: Principal (8) NSTEMI (non-ST elevated myocardial infarction) Diagnosis: Principal (9) Fungemia Diagnosis: Principal (10) COPD (chronic obstructive pulmonary disease) Diagnosis: Secondary Transfer Summary/Subjective Remarks/Hospital Course 08/24: 71 Year-old male with a medical history significant for COPD on home oxygen who was recently admitted with suspected sepsis/H And was initiated on IV antibiotics and steroids. He had recently been evaluated by GI and underwent EGD on 08/10/2016 and was found to have moderate esophagitis, mild gastritis with pathology subsequently showing Ashley esophagitis as well as colonoscopy on 08/11/2016 with polypectomy and ablation of polyp in ascending colon with hot snare. Patient has been dealing with constipation since his admission. Today when he was trying to have a bowel movement he suddenly became less responsive and then had a large emesis which resulted in aspiration and hemodynamic collapse. Patient initially had large volume emesis with dark maroon blood. CODE BLUE cardiac arrest code was activated. On my arrival patient was in bed CPR had been initiated. Significant gastric contents was still being suctioned out of his oral cavity. ACLS protocol was continued. Patient was intubated following vigorous suctioning of gastric contents from oral cavity as well as with placement of NG tube which is hooked up to suction and about 1.5 L of gastric contents being suctioned out which appeared to be dark maroon in color. Patient initially had a pulse when CODE BLUE was called and subsequently went in PEA arrest followed by asystole during ACLS and then V. fib for which he was defibrillated with 200 J 1, CPR/ACLS protocol was continued and patient eventually had return of spontaneous circulation after about 15 minutes of CPR/ACLS. Patient was transferred to [facility] and placed on mechanical ventilation. I emergently placed left femoral central line for central vascular access and he was started on Levophed for pressor support. 2 units of O- 1 crossmatch blood were ordered and transfused stat. He also received 1 L of normal saline bolus following return of spontaneous circulation. Stat labs were ordered. His hemoglobin on ABG done post resuscitation was 5.6. I did order Protonix 80 mg IV stat followed by 8 mg per hour IV infusion. Patient remained encephalopathic though was minimally responsive following transfer to the ICU. GI consult was requested and I spoke with Dr. Zamarripa at bedside on his arrival. History was obtained by reviewing records, discussion with family/ GI as well as nursing staff. According to patient's daughter he has not been doing well for the last few months in terms of his breathing and has been using his home oxygen more often. He gets extremely short of breath even with the least exertion. 08/25: Remains encephalopathic/ sedated, orally intubated on mech ventilation. Transiently off levophed last night however back to 11 mcg/min currently. Hgb up to 9.4 following 4 units PRBCs transfused last night. 08/26: Tmax 99. Some unresponsive on the ventilator. CT abdomen/pelvis less than revealed small bowel obstruction at site of ventral hernia. No further bleeding noted. Gastric output approximately 700 cc. No bowel movement. 08/27: Tmax 99.7. Currently afebrile. Positive BM overnight approximately 1 L according to RN. No blood noted. 100 cc from gastric tube overnight. Hemoglobin corrected a properly. Likely dilutional. Noted fungemia currently issue. Opens eyes to voice. 08/28: Tmax 99.1. No BMs overnight. Minimal gastric tube output. Hemoglobin stable 9.5. Opens eyes to voice. Not following commands. Appears with singultus this morning. 08/29: 20 beat run of wide complex tachycardia overnight. Noted potassium 3.2. This is been replaced. We'll recheck this afternoon. Circuit exchange yesterday. Patient tolerating pressure control ventilation much better than PRVC/AC ventilation is low probably VQ scan. Less FiO2 requirements. No BM past 24 hour. 08/30: Unable to wean ventilator. 08/31: Patient was extubated on 08/30 however became tachypneic with use of accessory muscles of respiration and required reintubation around 6:30 PM last night and was placed back on mechanical ventilation. Currently sedated, orally intubated on mechanical ventilation. Post intubation chest x-ray suggested fluid overload for which she was given Lasix 40 mg IV with good response having made about 2.5 L urine the last 7 hours. 09/01: Remains sedated, orally intubated on mechanical ventilation. Diuresing well with Lasix. Awaiting EGD in a.m. 09/02: Little progress. CXR clearing nicely. Continue diuresis, tolerate hypernatremia. 09/03: Good diuretic response. CRISTHIAN today with no valvar pathology. 09/04: Too weak to tolerate extubation. Will require trach. 09/05: Sedated, arousable, following commands. Tolerated C Pap trial for 9 hours yesterday with pressure support +10. Tolerating tube feeds. 09/06: Extubated yesterday. Chest x-ray reveals likely mucous plugging in left lung garcia. Currently on nonrebreather mask. Planning of insomnia and thick secretions that he is unable to cough up. 09/07 Patient s/p reintubation and bronch 09/06 mucous plugs in left main stem bronchus sedated with Diprivan and Fentanyl. Afebrile. For possible trach tomorrow. 09/08 No acute events overnight. Sedated with Diprivan and Fentanyl. Afebrile. For trach today. 09/09 No acute events overnight. Sedated and intubated. s/p trach yesterday for PEG tube placement today. 09/10 Patient remains sedated and on ventilator via trach. s/p EGD yesterday PEG tube couldn't be placed endoscopically due to hernia. Surgery consulted for J-tube placement. Afebrile. 09/11 No acute events overnight. Sedated with Diprivan, Fentanyl and intubated. Afebrile. Tolerating tube feeds. 09/12 Patient is off Diprivan remains on Fentanyl infusion tolerated CPAP trials for several hrs and TP's x 2 hrs yesterday now on TP with 50% FIO2. Afebrile. 09/13 Patient tolerated TP's all day yesterday placed on PRVC/AC mode overnight. TF held for high residuals. Afebrile. On Fentanyl infusion however he is awake, restless. 09/14 No acute events overnight. Tolerated TP's all day yesterday placed back on ventilator overnight. On Fentanyl infusion. Afebrile. Repeat KUB this morning showed ileus. 09/15 Patient is off fentanyl infusion and is on Precedex drip pulled his NGT overnight. KUB this morning showed improvements in gaseous distention of bowel. 09/16 Yesterday afternoon an NG tube was placed patient was noted to have tube feeds with possible aspiration.NGT placed this am, KUB pending. 09/17: no acute events overnight. tolerated cpap. back on rate overnight. this morning on trach collar. 09/18: prior history of constipation, now with diarrhea. otherwise, awaiting placement. 09/19: diarrhea improving. still awaiting placement. 09/20: still doing well. on trach collar this morning on my evaluation. insurance has not yet approved placement. 09/21: tired out on trach collar yesterday. placed intermittently on cpap. insurance denied LTAC. will work towards [id number]. 09/22: had [id number] today. insurance continues to request permanent surgical feeding access to go to LTAC. My medical opinion is that patient is clinically improving and tolerating DHT without complication, and could safely be fed through DHT for the coming weeks, and I anticipate his dysphagia to resolve as his strength improves. I do not see a clinical indication for permanent surgical gastric access. We also are not a rehab center, and he is not getting medically appropriate care for his level of medical need. He does not require ICU admission, and medically would be more appropriate for LTAC. 09/23: transferred to [facility]. doing well. tachycardic this morning. diltiazem changed from QID to q6hr for more even distribution. insurance company denied admission to LTAC. will continue to pursue this as an option. otherwise, OOB to chair daily. still working with speech. 09/24: did not sleep well overnight. agitated. awake most of the night. I removed stay sutures from trach this morning. 09/25: Received Haldol overnight, resting now. Not agitated. On PRVC/AC. CPAP trails to resume today. Somnolent but wakes up and follows commands 09/26: Continues to have large amount of tracheal secretions. Levaquin restarted sputum culture ordered. Chest x-ray is pending. Did not tolerate CPAP yesterday became tachycardic and hypoxic Subjective 09/27: Tolerated CPAP approximately 6-7 hours became tachypneic afterwards. Currently on full vent support FiO2 50%. Chest x-ray from yesterday shows bilateral pleural effusions/infiltrate right more than left. CT chest ordered cefepime added sputum culture is pending. More delirious at night, now with eyes open following commands EVENTS FROM 09/27/16 evening Patient was turned to left side for thoracentesis, he acutely desaturated to low 70s prior to starting the procedure. Patient was placed back in supine, bag and mask ventilation performed until sats came up to 98%. Patient was again partially turned to left side and thoracentesis was attempted. Even though ultrasound showed fluid, air was withdrawn into the syringe. Procedure was abandoned and patient was put in neutral position. Peak pressures on the vent increased and patient started desaturating to 70s indicating tension pneumothorax. The thoracentesis Angiocath was used for emergency decompression and bag and mask ventilation became easier. An emergency 8 Swedish pigtail catheter was placed and connected to Pleur-evac. This had significant air leak but patient remained with low oxygen saturation in 70s. Additional 28 Swedish chest tube was emergently placed with a gradual improvement in saturation to mid 80s. (Chest tube/Pigtail tray was not available immediately at the bedside , and the tech had to run to the [facility] to get the chest tube tray). Patient was placed back on PC/ACmechanical ventilation with low tidal volume. Post chest tube chest x-ray shows good reexpansion of the lung and good positioning of the chest tubes. But the left lung is collapsed with mediastinal shift to the left indicating bronchial obstruction probably from mucous plug. I attempted bronchoscopy with intubating bronchoscope available here at [place]. I was unable to suction out any mucus plugging, or visualize clearly. Patient was transferred to [facility] in [facility]. Dr. Espinoza performed therapeutic bronchoscopy with pediatric bronchoscope, and he was in able to clear a significant amount of secretion with reexpansion of lung. 09/28: Chest x-ray today shows right sided pneumothorax almost resolved. Good reexpansion of the left lung also bibasilar infiltrates seen. Sputum culture growing gram-negative rods. Patient is awake alert on full vent support. Levophed is being weaned currently on 4 mics per minute 09/29: Remains on mechanical ventilation via tracheostomy. Continues to have persistent air leak from right sided pigtail catheter as well as chest tube. Chest x-ray today shows slight increase in size of right pneumothorax. 09/30: Remains on mechanical ventilation via tracheostomy. Very small air leak noted in right sided chest tube. 10/01: Remains on mechanical ventilation via tracheostomy. Daily C Pap and T piece trials. Very small air leak noted. Decreased suction on right chest tube to -20 cm water pressure today. 10/02: Alert, breathing comfortably on vent. Continue weaning trials. 10/03: Continue daily SBTs and Dakin's dressing changes. 10/04: Awake and alert, following commands. Daily C Pap/T piece trials as tolerated. 10/05: Awake, alert, following commands. Persistent air leak in right chest tube noted. Tolerating tube feeds. Tolerates T piece during daytime. Significant respiratory secretions. 10/07: doing well. on trach collar x 48h. no air leak. cxr stable. minimal chest tube output. 10/08: no significant change. continues on trach collar. awaiting placement. patient is pulling trach collar off when he wants attention and banging it on the side rails until he gets hypoxic enough for alarms to go off. He has had to be restrained to prevent his hypoxia. 10/09: still awaiting insurance authorization for placement. no significant changes. 10/10: insurance approved for bed at [facility]. just awaiting bed. no significant changes. 10/11: still on trach collar. still awaiting bed at [facility]. patient without complaints. 10/12: Remains on TP, last 4 days. RN Not sure about that availability at [facility]. Chest x-ray shows stable bibasal infiltrates, no pneumothorax Objective Vital Signs Date Time Temp Pulse Resp B/P Pulse Ox O2 Delivery O2 Flow Rate FiO2 10/12/16 07:00 98 T-Piece 40 10/12/16 06:00 102 10/12/16 04:00 98.4 18 105/64 10/09/16 20:30 6.00 Intake and Output 10/11/16 10/11/16 10/12/16 08:00 16:00 00:00 Intake Total 1014 ml 816 ml 510 ml Output Total 400 ml 350 ml 625 ml Balance 614 ml 466 ml -115 ml Result Diagram: 10/12/16 0401 Imaging Last Impressions Abdomen X-Ray 09/15/16 0600 Signed Impressions: Service Date/Time: Thursday, September 15, 2016 03:16 - CONCLUSION: 1. Improved gaseous distention of bowel since September 14. Mild distention persists. 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 There is concentric mural thrombus. This aneurysm is not amenable to thrombin injection. Polo Moore Jr., MD Lung Scan-VQ Nuclear Medicine 08/29/16 0000 Signed Impressions: Service Date/Time: Monday, August 29, 2016 10:20 - CONCLUSION: Low probability for pulmonary embolus. Lex Lopez MD Brain MRI 08/27/16 0000 Signed Impressions: Service Date/Time: August 15:13 - CONCLUSION: No evidence of acute infarct, hemorrhage, mass or edema. No findings to suggest significant anoxic injury. Kit Power MD Renal Ultrasound 08/25/16 0000 Signed Impressions: Service Date/Time: Wednesday, August 24, 2016 21:53 - CONCLUSION: 1. There is no hydronephrosis. Both kidneys demonstrate mild increased echotexture of the parenchyma suggesting medical renal disease. 2. Trace perihepatic free fluid and bilateral pleural effusions. Lex Malik MD Chest CT 08/25/16 0000 Signed Impressions: Service Date/Time: Thursday, August 25, 2016 21:20 - CONCLUSION: 1. Bilateral pneumonia and aspiration would be in the differential. There is dependent consolidation/atelectasis and small effusions of the bases as well. 2. Upper limits of normal to mildly enlarged mediastinal lymph nodes, most likely reactive. 3. Coronary artery calcification. 4. Right rib fractures, including acute fractures laterally of the third, fourth and fifth. There are old, healed fractures anteriorly of the right second and third ribs.. Lex Lopez MD Abdomen/Pelvis CT 08/25/16 0000 Signed Impressions: Service Date/Time: Thursday, August 25, 2016 20:20 - CONCLUSION: 1. Ventral hernia containing small bowel and with associated small bowel obstruction. The defect is broad; I believe the obstruction is probably related to scarring and/or adhesions within the hernia sac. I don't see a mass. 2. Distended stomach despite NG tube present. 3. Severe aortoiliac atherosclerosis. No aneurysm. Lex oLpez MD Objective Remarks GENERAL: Patient is 71 yo lying in bed in bed, on trach collar via tracheostomy , follows commands SKIN: Warm and dry. HEAD: Normocephalic. EYES: No scleral icterus. No injection or drainage. NECK: trachea midline. No JVD. Trach in place. on TP. CARDIOVASCULAR: Regular rate and rhythm RESPIRATORY: unlabored. equal chest rise. GASTROINTESTINAL: Abdomen soft, non-tender, nondistended. MUSCULOSKELETAL: No cyanosis, +1 edema. NEURO: Awake, follows commands. Grossly nonfocal A/P Assessment and Plan Neuro/Psych: Status post CPR 15 minutes Depression NOS Agitated Delirium --Neurochecks per ICU protocol -- Zyprexa 5 mg q8h --Melatonin q hs for sleep --prn breakthrough haldol for agitation --d/cd ativan due to paradoxical agitation. Continue Xanax 0.25 mg by mouth every 8 hours when necessary 09/26 --EEG 08/25 revealed mild to moderate encephalopathy. No epileptiform activity. --MRI brain 08/27 revealed no acute findings. Cardiovascular: Cardiac arrest status post CPR History dyslipidemia History of hypertension PVD Monitor HR and BP keep MAP>65mmHg Cardizem 30 mg by mouth 4 times a day on 09/30 for Tachyarrhythmia Cardiac arrest status post CPR. s/p aggressive fluid resuscitation. Minimal troponin elevation following cardiac arrest noted Echo 2D revealed EF 35-40%. Moderate LVH. Mitral valve calcified. Mild TR. Pulmonary: Tension pneumothorax s/p chest tube 09/27 Complete left lung collapse from mucous plugging 09/27 HCAP with stenotrophomonas Acute respiratory failure secondary to aspiration pneumonia- Reintubated 09/06 s/p Trach on 09/08 End-stage COPD. Oxygen dependent FEV1 28%, FVC 1.6. S/P Aspiration 09/15 Status post emergency chest tube 2 for tension pneumothorax (09/27) following right attempted thoracentesis, 28 Swedish chest tube now removed Status post bronchoscopy for mucous plugging of the left main bronchus 09/27 s/p reintubation and bronch 09/06 mucous plugs in left main stem bronchus T piece as tolerated, now on TP for 4 days Bronchodilators, Pulmicort twice a day Needs aggressive pulmonary rehab with LTAC. Continues to be very weak VQ scan low probability 08/29 pulm toilet, trach care to stretcher chair daily. Consult pulmonology for chronic trach and chronic respiratory failure management GI: Small bowel obstruction - resolved Upper GI bleed plus esophageal rule out aorto esophageal fistula History of Ashley esophagitis History of colonic polyps History of ventral hernia status post repair last by Dr. Roberts Diarrhea Continue tube feeds and advance to goal as tolerated. Continue Reglan 5mg PO Q8, Senna, Lactulose, Colace. having BM From a GI standpoint, use nasogastric access at this time. continue frequent speech eval for swallowing, once clinically improved. s/p EGD 09/09: Deformed pylorus/antrum, nodular mucosa-multiple biopsies taken esophagitis distal esophagus-biopsy unable to place PEG endoscopically due to hiatal hernia. CT abdomen/pelvis revealed possible small bowel obstruction at level of ventral hernia. Severe aortoiliac disease. Dr. Roberts/general surgery evaluated. Very poor surgical candidate this time. EGD 08/25 revealed esophageal nipple. Clots noted within the gastric contents without active bleeding. Protonix for GI prophylaxis, 40 mg IV q12 Hold Bowel regimen for diarrhea. halfway nutrition plan: Feeding per DHT. the patient does not have a contraindication to replacement of DHT if it comes out accidentally. Continue speech/swallow eval and strengthening. I do think he will be strong enough to eat PO in the near future and will not medically require surgical feeding tube. Surgical feeding tube high risk given hernia. risks outweigh benefits. we have a defined long-term enteral feeding plan. Renal/: Acute kidney injury- resolved Hypernatremia History of bladder outlet obstruction Urinary retention Monitor renal function, I/O's, electrolytes replacement per protocol. Free water flushes 300ml Q6 monitor sodium level No hydronephrosis on CT abdomen/pelvis -- Hammond replaced due to urinary retention. would recommend 6 weeks of Hammond with bladder training before removal (2 failed trials of removal with urinary retention, last trial 10/09) Continue Cardura ID: New HCAP- resolved. Severe sepsis- resolved. UTI- resolved. Fungemia- resolved. Stenotrophomonas HCAP- resolved. s/p course of Levaquin 09/10 - 09/16 s/p course of micafungin for fungemia s/p levaquin, cefepime. culture for new fever. ID following Pertinent cultures 09/26: Sputum Stenotrophomonas 09/08 Bronch: S. Maltophilia, 09/06 Bronch- S. Maltophilia, 09/03 - blood culture - no growth 09/02 - blood culture - no growth 08/27 - blood from central line -Ashley Glabrata 08/27 -arterial line blood - pending 08/26 - sputum -Serratia 08/25 - blood cultures 2 -Ashley 08/25 - urine -no growth 08/22 - blood cultures 2 - no growth 08/21 - urine - no growth 08/20 - blood cultures 2 - 1 out of 4 staph epi Endocrine: Chronic prednisone use secondary to COPD SSI for glycemic control as needed. Heme: s/p Acute blood loss anemia History of prostate cancer Status post 4 units PRBCs ands 2 units FFP on 08/24. Given one unit PRBCs 08/26, 1U 09/26 Additional 1 unit 09/28/16 Monitor CBC H/H stable. MSK: PT/OT evaluate and treat. Attempt up to chair daily with PT Access - piv's Prophylaxis - GI -Protonix 40 q12 - DVT - SCD/ heparin 5000 u Sq Q12- cleared by GI. Resumed heparin 09/30 Overall impression: Slow progress s/p cardiopulmonary arrest. awaiting placement. [facility] consulted to assume care 10/13/16. Transfer to new Step Down unit if open and bed/staff available Isaias Burnett MD Oct 12, 2016 08:05
[2016-10-12] MEDS: RESP: BUDESONIDE 0.5 MG/2 ML NEB NEB SCH (08:13)
[2016-10-12] MEDS: RESP: ALBUTEROL 2.5 MG/IPRATROPIUM 0.5 MG NEB (PRN) INH (08:13)
[2016-10-12] MEDS: SENNOSIDES SYRUP 8.8 MG/5 ML CUP PO SCH (08:23)
[2016-10-12] MEDS: LACTULOSE SYRUP 20 GM/30 ML CUP PO SCH (08:24)
[2016-10-12] MEDS: METOCLOPRAMIDE HCL 10 MG/2 ML VIAL IV PUSH SCH (08:24)
[2016-10-12] MEDS: DOXAZOSIN MESYLATE 2 MG TAB PO SCH (08:24)
[2016-10-12] MEDS: HEPARIN SODIUM - SQ 10,000 UNITS/ML VIAL SQ SCH (08:24)
[2016-10-12] MEDS: PANTOPRAZOLE SODIUM 40 MG VIAL IV PUSH SCH (08:24)
[2016-10-12] MEDS: DILTIAZEM HCL 30 MG TAB PO SCH ×2 (08:24→11:47)
[2016-10-12] MEDS: DOCUSATE SODIUM 100 MG/10 ML UDC PO SCH (08:24)
[2016-10-12] MEDS: MULTIVITAMINS/MINERALS THERAPEUTIC TAB PO SCH (08:25)
[2016-10-12] MEDS: HYDROmorphone HCL PF 1 MG/ML VIAL IV PRN (10:08)
== END 2016-10-12 13:45 | DRG 4 ==
LOC: NEPC 10:47 → NEDA 14:10 → N04A 22:32 → N03B 08-24 15:45 → HIMN 09-05 21:07 → PHICU 09-23 01:06 → N03B 09-27 20:54
PROVIDERS: ADMIT Family Medicine; ATTEND Internal Medicine Critical Care Medicine
PROC: 0BH18EZ Insertion of Endotracheal Airway into Trachea, Via Natural or Artificial Opening Endoscopic (ICD-10-PCS; 2016-08-24)
PROC: 5A1955Z Respiratory Ventilation, Greater than 96 Consecutive Hours (ICD-10-PCS; 2016-08-24)
PROC: 06HN33Z Insertion of Infusion Device into Left Femoral Vein, Percutaneous Approach (ICD-10-PCS; 2016-08-24)
PROC: 30233K1 Transfusion of Nonautologous Frozen Plasma into Peripheral Vein, Percutaneous Approach (ICD-10-PCS; 2016-08-24)
PROC: 30233N1 Transfusion of Nonautologous Red Blood Cells into Peripheral Vein, Percutaneous Approach (ICD-10-PCS; 2016-08-24)
PROC: 5A2204Z Restoration of Cardiac Rhythm, Single (ICD-10-PCS; 2016-08-24)
PROC: 0DJ08ZZ Inspection of Upper Intestinal Tract, Via Natural or Artificial Opening Endoscopic (ICD-10-PCS; 2016-08-25)
PROC: 02HV33Z Insertion of Infusion Device into Superior Vena Cava, Percutaneous Approach (ICD-10-PCS; 2016-08-26)
PROC: 0BH17EZ Insertion of Endotracheal Airway into Trachea, Via Natural or Artificial Opening (ICD-10-PCS; 2016-08-30)
PROC: 5A1955Z Respiratory Ventilation, Greater than 96 Consecutive Hours (ICD-10-PCS; 2016-08-30)
PROC: 0BH17EZ Insertion of Endotracheal Airway into Trachea, Via Natural or Artificial Opening (ICD-10-PCS; 2016-09-06)
PROC: 5A1945Z Respiratory Ventilation, 24-96 Consecutive Hours (ICD-10-PCS; 2016-09-06)
PROC: 0B958ZX Drainage of Right Middle Lobe Bronchus, Via Natural or Artificial Opening Endoscopic, Diagnostic (ICD-10-PCS; 2016-09-06)
PROC: 0BC78ZZ Extirpation of Matter from Left Main Bronchus, Via Natural or Artificial Opening Endoscopic (ICD-10-PCS; 2016-09-06)
PROC: 0B113F4 Bypass Trachea to Cutaneous with Tracheostomy Device, Percutaneous Approach (ICD-10-PCS; principal; 2016-09-08)
PROC: 5A1955Z Respiratory Ventilation, Greater than 96 Consecutive Hours (ICD-10-PCS; 2016-09-08)
PROC: 0DB38ZX Excision of Lower Esophagus, Via Natural or Artificial Opening Endoscopic, Diagnostic (ICD-10-PCS; 2016-09-09)
PROC: 0DB68ZX Excision of Stomach, Via Natural or Artificial Opening Endoscopic, Diagnostic (ICD-10-PCS; 2016-09-09)
PROC: 0BC38ZZ Extirpation of Matter from Right Main Bronchus, Via Natural or Artificial Opening Endoscopic (ICD-10-PCS; 2016-09-27)
PROC: 0W9B30Z Drainage of Left Pleural Cavity with Drainage Device, Percutaneous Approach (ICD-10-PCS; 2016-09-27)
PROC: 0W993ZZ Drainage of Right Pleural Cavity, Percutaneous Approach (ICD-10-PCS; 2016-09-28)
PROC: 0W9930Z Drainage of Right Pleural Cavity with Drainage Device, Percutaneous Approach (ICD-10-PCS; 2016-09-28)
DX: A41.9 Sepsis, unspecified organism (principal); I21.4 Non-ST elevation (NSTEMI) myocardial infarction; J69.0 Pneumonitis due to inhalation of food and vomit; J93.0 Spontaneous tension pneumothorax; G93.40 Encephalopathy, unspecified; J90 Pleural effusion, not elsewhere classified; R57.1 Hypovolemic shock; R65.21 Severe sepsis with septic shock; J15.6 Pneumonia due to other Gram-negative bacteria; J18.9 Pneumonia, unspecified organism; I46.9 Cardiac arrest, cause unspecified; I49.01 Ventricular fibrillation; J96.00 Acute respiratory failure, unspecified whether with hypoxia or hypercapnia; N17.9 Acute kidney failure, unspecified; T17.590A Other foreign object in bronchus causing asphyxiation, initial encounter; J44.0 Chronic obstructive pulmonary disease with (acute) lower respiratory infection; B37.81 Candidal esophagitis; K56.7 Ileus, unspecified; D62 Acute posthemorrhagic anemia; K92.2 Gastrointestinal hemorrhage, unspecified; E87.3 Alkalosis; J44.1 Chronic obstructive pulmonary disease with (acute) exacerbation; E87.0 Hyperosmolality and hypernatremia; E87.1 Hypo-osmolality and hyponatremia; J98.19 Other pulmonary collapse; J93.82 Other air leak; F05 Delirium due to known physiological condition; K56.60 Unspecified intestinal obstruction; T80.211A Bloodstream infection due to central venous catheter, initial encounter; I48.91 Unspecified atrial fibrillation; Z99.81 Dependence on supplemental oxygen; E78.5 Hyperlipidemia, unspecified; F17.210 Nicotine dependence, cigarettes, uncomplicated; N32.0 Bladder-neck obstruction; E87.6 Hypokalemia; K43.2 Incisional hernia without obstruction or gangrene; B37.7 Candidal sepsis; E83.39 Other disorders of phosphorus metabolism; F32.9 Major depressive disorder, single episode, unspecified; R19.7 Diarrhea, unspecified; I73.9 Peripheral vascular disease, unspecified; I10 Essential (primary) hypertension; I72.4 Aneurysm of artery of lower extremity; R33.9 Retention of urine, unspecified; Y84.8 Other medical procedures as the cause of abnormal reaction of the patient, or of later complication, without mention of misadventure at the time of the procedure; K20.9 Esophagitis, unspecified; K31.89 Other diseases of stomach and duodenum; K44.9 Diaphragmatic hernia without obstruction or gangrene; I25.10 Atherosclerotic heart disease of native coronary artery without angina pectoris; K29.70 Gastritis, unspecified, without bleeding; Z85.46 Personal history of malignant neoplasm of prostate; Z79.52 Long term (current) use of systemic steroids
CPT/HCPCS: 31500; 31600; 31624; 36430; 36556; 36569; 36600; 36620; 70551; 71010; 71250; 74000; 74176; 76775; 76937; 78582; 80048; 80053; 80202; 81001; 82550; 82552; 82570; 82805; 82948; 83605; 83735; 83880; 84100; 84132; 84155; 84156; 84300; 84443; 84484; 85007; 85014; 85018; 85025; 85027; 85384; 85610; 85730; 86850; 86900; 86901; 86920; 86927; 87015; 87040; 87070; 87077; 87086; 87102; 87116; 87186; 87205; 87206; 87641; 88112; 88305; 88312; 89051; 92950; 93005; 93306; 93312; 93320; 93325; 93926; 93970; 94002; 94003; 94150; 94640; 94664; 94667; 94668; 94770; 95819; 96374; 96375; A7521; A9540; A9567; C9113; C9399; J0171; J0282; J0330; J0360; J0461; J0610; J0690; J0692; J1170; J1450; J1630; J1642; J1644; J1650; J1720; J1885; J1940; J1956; J2060; J2248; J2250; J2270; J2405; J2543; J2765; J2920; J2930; J3010; J3370; J3475; J3480; J7030; J7040; J7050; J7070; J7120; J7512; J7608; J7613; J7626; P9016; P9017; Q9963

== ENCOUNTER → 2017-04-01 | Outpatient (CLI) | payer MEDICARE, OTHER ==
--- NOTE | 2017-04-01 11:24 | RADRPT ---
EXAM DATE/TIME: 04/01/2017 00:00 [place] COMPARISON: No previous studies available for comparison. INDICATIONS : Dysphagia. FLUORO TIME: 1.7 minutes IMAGE COUNT: 0 CONTRAST: Dose as prescribed by speech pathologist. MEDICAL HISTORY : Cardiovascular disease. SURGICAL HISTORY : tracheostomy, peg tube ENCOUNTER: Initial ACUITY: 7 - 11 months PAIN SCORE: 0/10 LOCATION: esophagus FINDINGS: A modified barium swallow was performed with speech pathology. Patient was given a variety of liquids to swallow. The swallowing mechanism remains abnormal. There is no inversion of the epiglottis during swallowing. The patient was first given honey thickened barium which demonstrated penetration and mild aspiratio n. Vestibular penetration without aspiration was identified to applesauce thicken barium. Significant re sidual is identified in the vallecula and perform sinuses which the patient was unable to clear. Improvement of the swallowing mechanism was noted while tuckingof the chin. For a full detailed report, see report by the speech pathologist. CONCLUSION: Abnormal swallowing mechanism with penetration and mild aspiration to honey thickened liquid. Penetration was noted to more thickened material however patient was unable to clear residua l within the perform sinuses and vallecula. No inversion of the epiglottis during swallowing. Kit Power MD on April 01, 2017 at 11:19 Board Certified Radiologist. This report was verified electronically.
== END ==
LOC: HRAD 10:21
PROVIDERS: ATTEND Family Medicine
DX: R13.10 Dysphagia, unspecified (principal)
CPT/HCPCS: 74230; 92611; G8996; G8997; G8998

== ENCOUNTER 2017-04-26 21:25 | Inpatient (IN) | payer MEDICARE, OTHER ==
[~2017-04-26] VITALS: Ht 170.2 cm; Wt 58.0 kg
[2017-04-26 21:30] VITALS: BP 61/45; PULSE 92; RESP 18; TEMP 98
[2017-04-26 21:36] VITALS: BP 69/48; PULSE 90; RESP 20; TEMP 98
--- NOTE | 2017-04-26 21:51 | PD ---
HPI Chief Complaint: GI Complaint Time Seen by Provider: 21:41 Travel History International Travel<30 days: No Contact w/Intl Traveler<30days: No Traveled to known affect area: No History of Present Illness HPI The patient is a 72 year old male who presents to the [facility] emergency department with a history of 2 hours ago having onset of nausea and vomiting 1 , then leakage from the area around his PEG tube that appeared to be stool. Ambulance services were called and the patient was noted to have what looked like fecal matter leaking around his PEG tube. The patient reports that he last received a PEG tube feeding early in the morning today. He reportedly was discharged from [facility] earlier today. The patient reports that he was in the rehabilitation facility for the past month. Prior to that he was at [facility] for a ten-month admission. He reports that Dr. Jon Roberts is his surgeon. The patient reports that he is supposed to be exclusively tube fed. The patient was noted by ambulance services prior to arrival to be hypotensive with a blood pressure reportedly of 58/42 that improved to 80/43 with administration of normal saline a 1400 mL IV fluid bolus. The patient's blood sugar prior to arrival was 155. The patient is incidentally also noted to have an indwelling Hammond catheter. The patient reports that his primary care physician in the longterm was Dr. Saldaña. Otherwise on review of systems, the patient denies having any known recent fevers, cough, congestion, neck pain, chest pain, shortness of breath, urinary symptoms, or neurologic symptoms. With the patient's daughter arrives, more history is able to be obtained. The patient reports that on Wednesday he did have an episode of vomiting. He reports that since then he's noticed some leaking from around the PEG tube site. He reports that he was told by the longterm staff that he should go to the emergency department for evaluation, however he preferred to be discharged home and then go from there. [facility] Past Medical History Narrative Medical The patient's past medical history is significant for hypertension, COPD, hyperlipidemia, history of congestive heart failure, history of a perforated gastric ulcer, history of rheumatoid arthritis Hx Anticoagulant Therapy: No Arthritis: Yes (RA) Asthma: No Heart Rhythm Problems: No Cancer: Yes (PROSTATE) Cardiovascular Problems: Yes High Cholesterol: Yes Chemotherapy: No Chest Pain: No Congestive Heart Failure: Yes COPD: Yes Cerebrovascular Accident: No Coronary Artery Disease: No Diabetes: Yes Patient Takes Glucophage: No Diminished Hearing: No Endocrine: No Gastrointestinal Disorders: Yes (HX PERFORATED GASTRIC ULCER) GERD: Yes Genitourinary: Yes (urinary retention) Hepatitis: No Hiatal Hernia: No Hypertension: Yes Immune Disorder: No Implanted Vascular Access Dvce: No Kidney Stones: No Medical other: Yes (SHINGLES IN PAST, RADIATION FOR PROSTATE CANCER) Musculoskeletal: Yes Neurologic: No Psychiatric: No Reproductive: No Respiratory: Yes (COPD) Integumentary: Yes (SHINGLES) Radiation Therapy: Yes Renal Failure: No Sleep Apnea: No Ulcer: Yes Past Surgical History Narrative Surgical The patient's past surgical history is significant for prostate cancer with a bladder outlet obstruction status post Hammond catheter placement, history of expiratory laparotomy for perforated gastric ulcer with subsequent dehiscent sent evisceration of his bowel with primary repair, subsequent to that a ventral abdominal hernia repair, recurrent repair with unfortunately recurrences related to multiple previous abdominal wall infections. Abdominal Surgery: Yes (hernia ,multiple abd surgs) AICD: No Appendectomy: Yes Arteriovenous Shunt: No Cardiac Surgery: No Ear Surgery: No Endocrine Surgery: No Eye Surgery: Yes (LETY CATARACT) Genitourinary Surgery: No Hysterectomy: No Insulin Pump: No Joint Replacement: No Oral Surgery: No Pacemaker: No Thoracic Surgery: No Other Surgery: Yes Social History Alcohol Use: No Tobacco Use: No Substance Use: No Allergies-Medications (Allergen,Severity, Reaction): Coded Allergies: *MDRO Multi-Drug Resistant Organism (Verified Adverse Reaction, Unknown, ) MRSA (abdominal wound) 2015 per 04/10/2015 H&P MRSA PCR Screens NEGATIVE - 08/10/16 & 08/21/16 CLEARED PER INFECTION CONTROL PROTOCOL Reported Meds & Prescriptions Reported Meds & Active Scripts Active Prednisone 5 Mg Tab 5 Mg PO DIRECTED 6 Days 20 mg po daily for two days then 10 mg po daily for two days then 5 mg po daily for two days then stop. Cardizem CD 24 HR (Diltiazem CD 24 HR) 120 Mg Caper 120 Mg PO DAILY Symbicort Inh (Budesonide/Formoterol Fumarate) 160-4.5 Mcg/Act Aero 2 Puff INH BID Reported Flomax (Tamsulosin HCl) 0.4 Mg Cap 0.4 Mg PO HS Protonix (Pantoprazole Sodium) 40 Mg Tab 40 Mg PO DAILY Trazodone (Trazodone HCl) 50 Mg Tab 50-100 Mg PO HS [place] (Hydrocodone-Acetaminophen) 10-325 Mg Tab 1-2 Tab PO Q4H PRN Duoneb (Ipratropium-Albuterol Neb) 0.5-2.5 Mg/3 Ml Neb 1 Vial NEB QID PRN Combivent Respimat Inh (Ipratropium-Albuterol Inh) 20-100 Fci/Act Aero 1 Puff INH Q4HR PRN Review of Systems Except as stated in HPI: all other systems reviewed are Neg General / Constitutional: No: Fever Eyes: No: Visual changes HENT: No: Headaches Cardiovascular: No: Chest Pain or Discomfort Respiratory: No: Shortness of Breath Gastrointestinal: Positive: Nausea, Vomiting, Abdominal Pain, Other (leaking around PEG tube) Genitourinary: No: Dysuria Musculoskeletal: No: Pain Skin: No Rash Neurologic: No: Weakness Psychiatric: No: Depression Endocrine: No: Polydipsia Hematologic/Lymphatic: No: Easy Bruising Physical Exam Narrative General: The patient is a well-developed, thin appearing male in no acute distress. Head and Neck exam: Head is normocephalic atraumatic. Eyes: EOMI, pupils are equal round and reactive to light. Nose: Midline septum with pink mucous membranes Mouth: Dentition unremarkable. Moist mucus membranes. Posterior oropharynx is not erythematous. No tonsillar hypertrophy. Uvula midline. Airway patent. Neck: No palpable lymphadenopathy. No nuchal rigidity. No thyromegaly. Cardiovascular: Regular rate and rhythm without murmurs, gallops, or rubs. Lungs: Clear to auscultation bilaterally. No wheezes, rhonchi, or rales. Abdomen: Soft, with a central abdominal hernia that is palpated and easily reducible, normal active bowel sounds are audible. The feeding tube is noted in the center of the abdomen with a dirty bandage noted. The drainage is brown in color and then. It does have an odor of fecal matter. No guarding, rebound, or rigidity. Normal bowel sounds are audible. No tenderness on palpation of McBurney's point. Extremities: No clubbing, cyanosis, or edema. 2+ pulses in all 4 extremities. No calf tenderness on palpation. Back: No costovertebral angle tenderness to palpation. On examination of the patient' s back the patient is noted to have a sacral decubitus ulcer with pink granulation tissue noted at the base that is approximately 5.5 x 6.5 cm most prominent over the sacrum and left buttock. There is some tunneling at the upper aspect of the wound, however no induration. The patient's daughter reports that the wound is improved compared to previously. Further information will be provided by the patient's nurse regarding the characteristics of the wound. Neurologic Exam: Grossly nonfocal. Skin Exam: No rash noted. Intact skin that is warm and dry. Data Data Last Documented VS Vital Signs Date Time Temp Pulse Resp B/P (MAP) Pulse Ox O2 Delivery O2 Flow Rate FiO2 04/26/17 22:41 90 60/40 (47) Nasal Cannula 4.00 04/26/17 21:36 98.0 20 Orders Orders Electrocardiogram (04/26/17 21:41) Complete Blood Count With Diff (04/26/17 21:41) Comprehensive Metabolic Panel (04/26/17 21:41) Creatine Kinase (Cpk) (04/26/17 21:41) Ckmb (Isoenzyme) Profile (04/26/17 21:41) Troponin I (04/26/17 21:41) B-Type Natriuretic Peptide (04/26/17 21:41) Prothrombin Time / Inr (Pt) (04/26/17 21:41) Act Partial Throm Time (Ptt) (04/26/17 21:41) Lipase (04/26/17 21:41) Urinalysis - C+S If Indicated (04/26/17 21:41) Magnesium (Mg) (04/26/17 21:41) Chest, Single Ap (04/26/17 21:41) Iv Access Insert/Monitor (04/26/17 21:41) Ecg Monitoring (04/26/17 21:41) Oximetry (04/26/17 21:41) Wound Care (04/26/17 21:41) Blood Culture (04/26/17 21:41) Sodium Chlor 0.9% 1000 Ml Inj (Ns 1000 M (04/26/17 22:00) Piperacil-Tazo 3.375 Gm Premix (Zosyn 3. (04/26/17 22:00) Vancomycin Inj (Vancomycin Inj) (04/26/17 22:00) Sodium Chlorid 0.9% 500 Ml Inj (Ns 500 M (04/26/17 22:45) Sodium Chlor 0.9% 1000 Ml Inj (Ns 1000 M (04/26/17 22:45) Admit Order (Ed Use Only) (04/26/17 22:55) Ct Abd/Pel W/O Iv Contrast (04/26/17 21:41) Labs Laboratory Tests Test 04/26/17 21:45 04/26/17 22:35 White Blood Count 32.1 TH/MM3 Red Blood Count 2.72 MIL/MM3 Hemoglobin 9.2 GM/DL Hematocrit 27.7 % Mean Corpuscular Volume 101.5 FL Mean Corpuscular Hemoglobin 33.8 PG Mean Corpuscular Hemoglobin Concent 33.3 % Red Cell Distribution Width 15.2 % Platelet Count 276 TH/MM3 Mean Platelet Volume 8.9 FL Neutrophils (%) (Auto) 90.8 % Lymphocytes (%) (Auto) 1.5 % Monocytes (%) (Auto) 7.5 % Eosinophils (%) (Auto) 0.0 % Basophils (%) (Auto) 0.2 % Neutrophils # (Auto) 29.2 TH/MM3 Lymphocytes # (Auto) 0.5 TH/MM3 Monocytes # (Auto) 2.4 TH/MM3 Eosinophils # (Auto) 0.0 TH/MM3 Basophils # (Auto) 0.0 TH/MM3 CBC Comment AUTO DIFF Differential Total Cells Counted 100 Neutrophils % (Manual) 58 % Band Neutrophils % 33 % Lymphocytes % 2 % Monocytes % 5 % Neutrophils # (Manual) 29.9 TH/MM3 Metamyelocytes 2 % Differential Comment FINAL DIFF MANUAL Toxic Granulation 1+ Platelet Estimate NORMAL Platelet Morphology Comment NORMAL Prothrombin Time 12.2 SEC Prothromb Time International Ratio 1.1 RATIO Activated Partial Thromboplast Time 30.6 SEC Blood Urea Nitrogen 69 MG/DL Creatinine 2.79 MG/DL Random Glucose 144 MG/DL Total Protein 7.2 GM/DL Albumin 3.1 GM/DL Calcium Level 8.6 MG/DL Magnesium Level 1.8 MG/DL Alkaline Phosphatase 150 U/L Aspartate Amino Transf (AST/SGOT) 26 U/L Alanine Aminotransferase (ALT/SGPT) 25 U/L Total Bilirubin 0.5 MG/DL Sodium Level 136 MEQ/L Potassium Level 4.7 MEQ/L Chloride Level 98 MEQ/L Carbon Dioxide Level 29.4 MEQ/L Anion Gap 9 MEQ/L Estimat Glomerular Filtration Rate 23 ML/MIN Total Creatine Kinase 33 U/L Troponin I LESS THAN 0.02 NG/ML B-Type Natriuretic Peptide 83 PG/ML Lipase 39 U/L Urine Color YELLOW Urine Turbidity CLOUDY Urine pH 6.0 Urine Specific [place] 1.021 Urine Protein 300 mg/dL Urine Glucose (UA) NEG mg/dL Urine Ketones NEG mg/dL Urine Occult Blood LARGE Urine Nitrite NEG Urine Bilirubin NEG Urine Urobilinogen 2.0 MG/DL Urine Leukocyte Esterase LARGE Urine RBC /hpf Urine WBC /hpf Urine WBC Clumps MANY Urine Squamous Epithelial Cells 2 /hpf Urine Bacteria MOD /hpf Urine Hyaline Casts 20 /lpf Urine Mucus FEW /lpf Urine Yeast (Budding) MANY Microscopic Urinalysis Comment CULTURE INDICATED MDM Medical Decision Making Medical Screen Exam Complete: Yes Emergency Medical Condition: Yes Medical Record Reviewed: Yes Interpretation(s) Last Impressions Chest X-Ray 04/26/172140 Signed Impressions: Service Date/Time: Wednesday, April 26, 2017 21:46 - CONCLUSION: 1. There is airspace consolidation in the peripheral left midlung zone. Although nonspecific this could represent an infectious process/pneumonia in the appropriate clinical setting. 2. Mild consolidation versus atelectasis in the right lower lung zone. Lex Malik MD Abdomen/Pelvis CT 04/26/172140 Signed Impressions: Service Date/Time: Thursday, April 27, 2017 00:18 - CONCLUSION: 1. Small bowel dilatation which may reflect ileus or obstruction. Followup examination is recommended if clinically indicated. Gareth Escalante MD Differential Diagnosis Bowel perforation with peritonitis and sepsis, versus bowel obstruction with leakage around feeding tube, versus ileus Narrative Course During the course of the patients emergency department visit, the patients history, examination, and differential diagnosis were reviewed with the patient. The patient was placed on a scarifier operator with oximetry and frequent blood pressure monitoring. The patient had IV access obtained and blood work sent for analysis. The patient had an ECG done on arrival. The patient's ECG shows a sinus rhythm heart rate of 91, right bundle branch block, QRS duration is 137 ms, QTC 421 ms. The patient was initially provided normal saline 1 L IV fluid bolus. The patient had 300 mL of urine in his Hammond catheter bag. The catheter bag was exchanged. The patient's urine output was monitored closely. The patient' s blood pressure began to drop again and the patient was given normal saline a second 1 L IV fluid bolus. The patient was started on Zosyn 3.375 g IV, vancomycin 1 g IV for broad-spectrum antibiotic coverage for suspected sepsis. The patients laboratory studies were reviewed and remarkable for a white count of 32.1, hemoglobin 9.2, platelets 276 with 90.8 neutrophils, lymphocytes 1.5, CMP was remarkable for BUN of 69, creatinine 2.79, glucose 144, alkaline phosphatase 150, CPK 33, troponin I 0.02, BNP is 83, lipase 39, PT 12.2, PTT 30.6, urinalysis shows large occult blood, large leukocyte esterase innumerable rbc's innumerable WBCs, many white blood cell clumps, moderate bacteria, culture indicated. This is a catheterized specimen. The patient's lactic acid was 1.8. Radiology studies were reviewed and remarkable for a chest x-ray that shows an airspace consolidation of the peripheral left mid lung zone, although nonspecific this could represent an infectious process such as pneumonia in the appropriate clinical setting. Mild consolidation versus atelectasis in the right lower lung zone. CT scan of the abdomen and pelvis shows small bowel dilatation which may reflect ileus or obstruction. Follow-up examination as recommended. Dr. Silva, the covering physician for Dr. Roberts was called at 10:22PM. He agreed with the plan to receive a CT scan of the abdomen and pelvis to evaluate further for the underlying cause of the fecal matter leaking around the patient' s feeding tube site. The patients results were discussed with the patient, including the plan of care. I explained that further testing and/ or monitoring is indicated based on the patients history, examination, and/ or laboratory findings. Therefore, I recommended admission for additional evaluation. The patient expressed understanding and was agreeable with this plan. The patient was admitted to the hospital in critical condition and sent to a bed under the care of the paper baling machine operator service. Critical Care Narrative Aggregate critical care time was 42 minutes. Time to perform other separately billable procedures was not included in the critical care time. My time did not include minutes spent treating any other patients simultaneously or on activities that did not directly contribute to the patient's treatment. The services I provided to this patient were to treat and/or prevent clinically significant deterioration that could result in: Respiratory failure from fluid overload from resuscitation, versus cardiovascular collapse related to sepsis I provided critical care services requiring my management, as noted below: Chart data review, documentation time, medication orders and management, vital sign assessments/reviewing monitor data, ordering and reviewing lab tests, ordering and interpreting/reviewing x-rays and diagnostic studies, care of the patient and discussion of the patient with the admitting physicians. Sepsis Criteria SIRS Criteria (2 or more): Heart rate over 90, WBC > 72030, < 4000 or > 10% bands Severe Sepsis (+one): Hypotension Physician Communication Physician Communication The patient's case including history, pertinent physical examination findings, and laboratory studies were discussed with Dr. Hooker. It was agreed that the patient would be admitted to the paper baling machine operator service. Diagnosis Primary Impression: Sepsis Qualified Codes: A41.9 - Sepsis, unspecified organism Additional Impression: Bowel obstruction Qualified Codes: K56.609 - Unspecified intestinal obstruction, unspecified as to partial versus complete obstruction Admitting Information Admitting Physician Requests: it Jessica Muhammad MD Apr 26, 2017 21:51
[2017-04-26] MEDS ORDERED: PIPERACIL-TAZO 3.375 GM PREMIX 50 ML IV ONE (22:00)
[2017-04-26] MEDS ORDERED: SODIUM CHLOR 0.9% 1000 ML INJ 1,000 ML IV ONE ×4 (22:00→23:00)
[2017-04-26] MEDS ORDERED: VANCOMYCIN INJ 1,000 MG in SODIUM CHLOR 0.9% 250 ML INJ 250 ML IV ONE (22:00)
--- NOTE | 2017-04-26 22:00 | RADRPT ---
EXAM DATE/TIME: 04/26/2017 21:46 [facility] COMPARISON: CHEST SINGLE AP, October 12, 2016, 3:31. INDICATIONS : Short of breath. MEDICAL HISTORY : Chronic obstructive pulmonary disease. Emphysema. SURGICAL HISTORY : PEG tube. ENCOUNTER: Initial ACUITY: 1 day PAIN SCORE: 0/10 LOCATION: Bilateral chest FINDINGS: Portable AP view of the chest demonstrates a normal-sized cardiac silhouette. There is peripheral air space consolidation in the left midlung zone and patchy airspace opacity at the right base. No pneumo thorax or pleural effusion is identified. Bones and soft tissues demonstrate no acute finding. CONCLUSION: 1. There is airspace consolidation in the peripheral left midlung zone. Although nonspecific this cou ld represent an infectious process/pneumonia in the appropriate clinical setting. 2. Mild consolidation versus atelectasis in the right lower lung zone. Lex Malik MD on April 26, 2017 at 21:56 Board Certified Radiologist. This report was verified electronically.
[2017-04-26 22:16] LABS: AUTOMATED NEUTROPHIL # 29.2 TH/MM3 (1.8-7.7); BASOPHIL % 0.2 % (0.0-2.0); HEMATOCRIT 27.7 % (39.0-51.0); LYMPH % 1.5 % (9.0-44.0); LYMPHOCYTE # 0.5 TH/MM3 (1.0-4.8); MEAN CELL VOLUME 101.5 FL (80.0-100.0); MEAN CORPUSCULAR HEMOGLOBIN 33.8 PG (27.0-34.0); MEAN CORPUSCULAR HGB CONC 33.3 % (32.0-36.0); MONO % 7.5 % (0.0-8.0); NEUT % 90.8 % (16.0-70.0); PLATELET COUNT 276 TH/MM3 (150-450); RED BLOOD COUNT 2.72 MIL/MM3 (4.50-5.90); RED CELL DISTRIBUTION WIDTH 15.2 % (11.6-17.2); WHITE BLOOD COUNT 32.1 TH/MM3 (4.0-11.0)
[2017-04-26 22:19] LABS: HEMO FLAGS AUTO DIFF
[2017-04-26 22:35] LABS: ANION GAP 9 MEQ/L (5-15); AST (GOT) 26 U/L (15-37); BICARBONATE 29.4 MEQ/L (21.0-32.0); BLOOD UREA NITROGEN 69 MG/DL (7-18); CHLORIDE 98 MEQ/L (98-107); GLOMERULAR FILTRATION RATE 23 ML/MIN (>89); MAGNESIUM 1.8 MG/DL (1.5-2.5); POTASSIUM 4.7 MEQ/L (3.5-5.1); SODIUM (NA) 136 MEQ/L (136-145)
[2017-04-26 22:36] LABS: ALT (GPT) 25 U/L (12-78); APTT (PATIENT) 30.6 SEC (24.3-30.1); INTERNATIONAL NORMALIZED RATIO 1.1 RATIO; PROTHROMBIN TIME - PATIENT 12.2 SEC (9.8-11.6)
[2017-04-26 22:40] LABS: ALKALINE PHOSPHATASE 150 U/L (45-117); TOTAL BILIRUBIN ADULT 0.5 MG/DL (0.2-1.0)
[2017-04-26 22:41] VITALS: BP 60/40; PULSE 90
[2017-04-26 22:41] LABS: CREATINE KINASE 33 U/L (39-308)
[2017-04-26] MEDS ORDERED: SODIUM CHLORID 0.9% 500 ML INJ 500 ML IV ONE (22:45)
[2017-04-26 22:59] LABS: BANDS 33 % (0-6); METAMYELOCYTES 2 % (0-1); NEUTROPHIL # MANUAL DIFF 29.9 TH/MM3 (1.8-7.7); POLYS (SEG NEUTROPHILS) 58 % (16-70); SCAN/DIFF FINAL DIFF MANUAL; WBC DIFF SAMPLE 100
[2017-04-26 23:00] LABS: PLATELET ESTIMATE SMEAR NORMAL (NORMAL); PLATELET MORPHOLOGY NORMAL (NORMAL); TOXIC GRANULATION 1+ (NORMAL)
[2017-04-26] MEDS ORDERED: traZODone HCL 50 MG TAB PO PRN (23:00)
[2017-04-26] MEDS ORDERED: SODIUM CHLOR 0.9% 1000 ML INJ 100 ML IV ONE (23:00)
[2017-04-26] MEDS ORDERED: CHLORHEXIDINE GLUCONATE 2 % 1 PACK (2 CLOTHS) TOP PRN (23:00)
[2017-04-26] MEDS ORDERED: VANCOMYCIN INJ 1,000 MG in SODIUM CHLOR 0.9% 250 ML INJ 250 ML IV SCH ×2 (23:00→23:30)
[2017-04-26] MEDS ORDERED: MISCELLANEOUS NURSING INFORMATION XX SCH (23:00)
[2017-04-26 23:07] VITALS: BP 76/49; PULSE 77; RESP 18; O2SAT 99
[2017-04-26 23:13] LABS: BACTERIA, URINE MOD /hpf; BLOOD, URINE LARGE (NEG); GLUCOSE,URINE NEG (NEG); HYALINE CAST, URINE 20 /lpf (RARE); KETONE, URINE NEG (NEG); MUCUS URINE FEW /lpf (OCC); NITRITE,URINE NEG (NEG); SQUAMOUS EPITHELIAL CELL URINE 2 /hpf (0-5); URINE COLOR YELLOW (YELLW/STRAW)
[2017-04-26 23:14] LABS: COMMENT (UR) CULTURE INDICATED; CULTURE IF INDICATED CULTURE INDICATED
[2017-04-26] MEDS ORDERED: PILL SPLITTER OTHER PRN (23:15)
[2017-04-26 23:18] VITALS: O2SAT 99
--- NOTE | 2017-04-26 23:20 | HHI.HP ---
HPI Service Critical Care Medicine Primary Care Physician Unknown Admission Diagnosis Sepsis, Fecal leakage around Peg tube, vomiting Diagnosis: Travel History International Travel<30 Days: No Contact w/Intl Traveler <30 Da: No Traveled to Known Affected Are: No History of Present Illness 72 year old unfortunate male presents with a history of sudden onset( 2 hours ago) of nausea and vomiting 1, then leakage from the area around his PEG tube that appeared to be stool. Ambulance services were called and the patient was noted to have what looked like fecal matter leaking around his PEG tube. The patient reports that he last received a PEG tube feeding early in the morning today. He reportedly was discharged from [facility] earlier today. He was in the rehabilitation for [facility] for about a month. Prior to that he was at [facility] for a ten-month. Dr. Jon Roberts is his surgeon. He was also noticed by EMT to be hypotensive with a blood pressure reportedly of 58/42 that improved to 80/43 with administration of normal saline a 1400 mL IV fluid bolus. The case was discussed by ED attending with general surgeon on-call Dr. Banks who requests to repeat a CT of the abdomen stat and admit patients to critical care services. Review of Systems Constitutional: DENIES: Diaphoretic episodes, Fatigue, Fever, Weight gain, Weight loss, Chills, Dizziness, Change in appetite, Night Sweats Endocrine: DENIES: Heat/cold intolerance, Polydipsia, Polyuria, Polyphagia Eyes: DENIES: Blurred vision, Diplopia, Eye inflammation, Eye pain, Vision loss , Photosensitivity, Double Vision Ears, nose, mouth, throat: DENIES: Tinnitus, Hearing loss, Vertigo, Nasal discharge, Oral lesions, Throat pain, Hoarseness, Ear Pain, Running Nose, Epistaxis, Sinus Pain, Toothache, Odynophagia Respiratory: DENIES: Apneas, Cough, Snoring, Wheezing, Hemoptysis, Sputum production, Shortness of breath Cardiovascular: DENIES: Chest pain, Palpitations, Syncope, Dyspnea on Exertion , PND, Lower Extremity Edema, Orthopnea, Claudication Gastrointestinal: COMPLAINS OF: Abdominal pain, Nausea, Vomiting, Difficulty Swallowing, Anorexia, DENIES: Black stools, Bloody stools, Constipation, Diarrhea Genitourinary: DENIES: Sexual dysfunction, Urinary frequency, Urinary incontinence, Urgency, Hematuria, Dysuria, Nocturia, Penile Discharge, Testicular Pain, Testicular Swelling Musculoskeletal: DENIES: Joint pain, Muscle aches, Stiffness, Joint Swelling, Back pain, Neck pain Integumentary: DENIES: Abnormal pigmentation, Nail changes, Pruritus, Rash Hematologic/lymphatic: DENIES: Bruising, Lymphadenopathy Immunologic/allergic: DENIES: Eczema, Urticaria Neurologic: DENIES: Abnormal gait, Headache, Localized weakness, Paresthesias, Seizures, Speech Problems, Tremor, Poor Balance Psychiatric: DENIES: Anxiety, Confusion, Mood changes, Depression, Hallucinations, Agitation, Suicidal Ideation, Homicidal Ideation, Delusions Past Family Social History Allergies: Coded Allergies: *MDRO Multi-Drug Resistant Organism (Verified Adverse Reaction, Unknown, ) MRSA (abdominal wound) 2015 per 04/10/2015 H&P MRSA PCR Screens NEGATIVE - 08/10/16 & 08/21/16 CLEARED PER INFECTION CONTROL PROTOCOL Past Medical History Hypertension COPD O2 dependent Prostate cancer Bladder outlet obstruction Hyperlipidemia Past Surgical History Ventral hernia Appendectomy Perforated gastric ulcer surgery Cataract Reported Medications Reported Meds & Active Scripts Active Prednisone 5 Mg Tab 5 Mg PO DIRECTED 6 Days 20 mg po daily for two days then 10 mg po daily for two days then 5 mg po daily for two days then stop. Cardizem CD 24 HR (Diltiazem CD 24 HR) 120 Mg Caper 120 Mg PO DAILY Symbicort Inh (Budesonide/Formoterol Fumarate) 160-4.5 Mcg/Act Aero 2 Puff INH BID Reported Flomax (Tamsulosin HCl) 0.4 Mg Cap 0.4 Mg PO HS Protonix (Pantoprazole Sodium) 40 Mg Tab 40 Mg PO DAILY Trazodone (Trazodone HCl) 50 Mg Tab 50-100 Mg PO HS [place] (Hydrocodone-Acetaminophen) 10-325 Mg Tab 1-2 Tab PO Q4H PRN Duoneb (Ipratropium-Albuterol Neb) 0.5-2.5 Mg/3 Ml Neb 1 Vial NEB QID PRN Combivent Respimat Inh (Ipratropium-Albuterol Inh) 20-100 Alf/Act Aero 1 Puff INH Q4HR PRN Active Ordered Medications Current Medications Medications (Trade) Dose Ordered Sig/Tee Route PRN Reason Start Time Stop Time Status Last Admin Dose Admin Sodium Chloride 1,000 ml @ 1,000 mls/hr Q1H ONCE IV 04/26/17 22:45 04/26/17 23:44 04/26/17 22:48 Budesonide/ Formoterol Fumarate (Symbicort 160-4.5 Inh) 2 puff BID INH 04/27/17 09:00 Tamsulosin HCl (Flomax) 0.4 mg HS PO 04/27/17 21:00 Trazodone HCl (Desyrel) 75 mg HS PRN PO insomnia 04/26/17 23:00 Miscellaneous (Pill Splitter) 1 ea UNSCH PRN OTHER SEE LABEL COMMENTS 04/26/17 23:15 Sodium Chloride 1,000 ml @ 125 mls/hr Q8H IV 04/26/17 23:00 UNV Sodium Chloride (NS Flush) 2 ml UNSCH PRN IV FLUSH FLUSH AFTER USING IV ACCESS 04/26/17 23:00 UNV Sodium Chloride (NS Flush) 2 ml BID IV FLUSH 04/27/17 09:00 UNV Pantoprazole Sodium (Protonix Inj) 40 mg DAILY IV PUSH 04/27/17 09:00 UNV Albuterol/ Ipratropium (Duoneb Neb) 1 ampule Q6HR NEB INH 04/27/17 04:00 UNV Albuterol/ Ipratropium (Duoneb Neb) 1 ampule Q2HR NEB PRN INH WHEEZING 04/26/17 23:00 UNV Heparin Sodium (Porcine) (Heparin Inj) 5,000 units Q8H SQ 04/26/17 23:00 UNV Vancomycin HCl 1000 mg/Sodium Chloride 250 ml @ 250 mls/hr Q12H IV 04/26/17 23:00 UNV Piperacillin Sod/ Tazobactam Sod 100 ml @ 200 mls/hr Q6H IV 04/26/17 23:00 UNV Micafungin Sodium 100 mg/Sodium Chloride 100 ml @ 100 mls/hr Q24H IV 04/26/17 23:00 UNV Sodium Chloride 1,000 ml @ 1,000 mls/hr Q1H ONCE IV 04/26/17 23:00 04/26/17 23:59 UNV Sodium Chloride 1,000 ml @ 1,000 mls/hr Q1H ONCE IV 04/26/17 23:00 04/26/17 23:59 UNV Sodium Chloride 100 ml @ 1,000 mls/hr Q6M ONCE IV 04/26/17 23:00 04/26/17 23:05 UNV Miscellaneous Information 1 Q361D XX 04/26/17 23:00 UNV Chlorhexidine Gluconate (Chlorhexidine 2% Cloth) 3 pack Taper DAILY@04 TOP 04/27/17 04:00 04/23/18 03:59 UNV Chlorhexidine Gluconate (Chlorhexidine 2% Cloth) 3 pack UNSCH PRN TOP HYGIENIC CARE 04/26/17 23:00 UNV Family History Father alcohol abuse Dementia Social History Smokes one pack of cigarettes per day Physical Exam Vital Signs Vital Signs Date Time Temp Pulse Resp B/P (MAP) Pulse Ox O2 Delivery O2 Flow Rate FiO2 04/26/17 22:41 90 60/40 (47) Nasal Cannula 4.00 04/26/17 21:36 98.0 90 20 69/48 (55) 4.00 04/26/17 21:30 98.0 92 18 61/45 (50) Physical Exam GENERAL: Well-nourished, well-developed patient. SKIN: Warm and dry. HEAD: Normocephalic. EYES: No scleral icterus. No injection or drainage. NECK: Supple, trachea midline. No JVD or lymphadenopathy. CARDIOVASCULAR: Regular rate and rhythm without murmurs, gallops, or rubs. RESPIRATORY: Breath sounds equal bilaterally. No accessory muscle use. GASTROINTESTINAL: Soft, with a central abdominal hernia that is palpated and easily reducible, normal active bowel sounds are audible. The feeding tube is noted in the center of the abdomen with a dirty bandage noted. The drainage is brown in color and then. It does have an odor of fecal matter. No guarding, rebound, or rigidity. Normal bowel sounds are audible. No tenderness on palpation of McBurney's point. MUSCULOSKELETAL: No cyanosis, or edema. BACK: No costovertebral angle tenderness to palpation. On examination of the patient's back the patient is noted to have a sacral decubitus ulcer with pink granulation tissue noted at the base that is approximately 5.5 x 6.5 cm most prominent over the sacrum and left buttock. There is some tunneling at the upper aspect of the wound, however no induration. The patient's daughter reports that the wound is improved compared to previously. Further information will be provided by the patient's nurse regarding the characteristics of the wound. NEURO EXAM: Mental Status: The patient is alert and oriented to person, place, and time with normal speech. Cranial Nerves: Visual acuity intact bilaterally. Visual garcia normal in all quadrants. Pupils are round, reactive to light. Extraocular movements are intact without ptosis. Hearing is normal bilaterally. Voice is normal. Tongue protrudes midline and moves symmetrically. Reflexes: Biceps, patellar, and Achilles are 2/4 bilaterally. No clonus. Laboratory Laboratory Tests Test 04/26/17 21:45 04/26/17 22:35 White Blood Count 32.1 Red Blood Count 2.72 Hemoglobin 9.2 Hematocrit 27.7 Mean Corpuscular Volume 101.5 Mean Corpuscular Hemoglobin 33.8 Mean Corpuscular Hemoglobin Concent 33.3 Red Cell Distribution Width 15.2 Platelet Count 276 Mean Platelet Volume 8.9 Neutrophils (%) (Auto) 90.8 Lymphocytes (%) (Auto) 1.5 Monocytes (%) (Auto) 7.5 Eosinophils (%) (Auto) 0.0 Basophils (%) (Auto) 0.2 Neutrophils # (Auto) 29.2 Lymphocytes # (Auto) 0.5 Monocytes # (Auto) 2.4 Eosinophils # (Auto) 0.0 Basophils # (Auto) 0.0 CBC Comment AUTO DIFF Differential Total Cells Counted 100 Neutrophils % (Manual) 58 Band Neutrophils % 33 Lymphocytes % 2 Monocytes % 5 Neutrophils # (Manual) 29.9 Metamyelocytes 2 Differential Comment FINAL DIFF MANUAL Toxic Granulation 1+ Platelet Estimate NORMAL Platelet Morphology Comment NORMAL Prothrombin Time 12.2 Prothromb Time International Ratio 1.1 Activated Partial Thromboplast Time 30.6 Blood Urea Nitrogen 69 Creatinine 2.79 Random Glucose 144 Total Protein 7.2 Albumin 3.1 Calcium Level 8.6 Magnesium Level 1.8 Alkaline Phosphatase 150 Aspartate Amino Transf (AST/SGOT) 26 Alanine Aminotransferase (ALT/SGPT) 25 Total Bilirubin 0.5 Sodium Level 136 Potassium Level 4.7 Chloride Level 98 Carbon Dioxide Level 29.4 Anion Gap 9 Estimat Glomerular Filtration Rate 23 Total Creatine Kinase 33 Troponin I LESS THAN 0.02 Lipase 39 Date/Time Source Procedure Growth Status 04/26/17 21:50 Blood Peripheral Aerobic Blood Culture Pending Received 04/26/17 21:50 Blood Peripheral Anaerobic Blood Culture Pending Received Result Diagram: 04/26/[id number]/26/[id number] Imaging Last 24 hours Impressions Chest X-Ray 04/26/172140 Signed Impressions: Service Date/Time: Wednesday, April 26, 2017 21:46 - CONCLUSION: 1. There is airspace consolidation in the peripheral left midlung zone. Although nonspecific this could represent an infectious process/pneumonia in the appropriate clinical setting. 2. Mild consolidation versus atelectasis in the right lower lung zone. MD Santana Zamudio VTE Risk Assessment Caprini VTE Risk Assessment: Mod/High Risk (score >= 2) Caprini Risk Assessment Model Point Value = 1 Point Value = 2 Point Value = 3 Point Value = 5 Age 41-60 Minor surgery BMI > 25 kg/m2 Swollen legs Varicose veins or History of unexplained or recurrent spontaneous Oral contraceptives or hormone replacement Sepsis (< 1 month) Serious lung disease, including pneumonia (< 1 month) Abnormal pulmonary function Acute myocardial infarction Congestive heart failure (< 1 month) History of inflammatory bowel disease Medical patient at bed rest Age 61-74 Arthroscopic surgery Major open surgery (> 45 min) Laparoscopic surgery (> 45 min) Malignancy Confined to bed (> 72 hours) Immobilizing plaster cast Central venous access Age >= 75 History of VTE Family history of VTE Factor V Leiden Prothrombin 12581B Lupus anticoagulant Anticardiolipin antibodies Elevated serum homocysteine Heparin-induced thrombocytopenia Other congenital or acquired thrombophilia Stroke (< 1 month) Elective arthroplasty Hip, pelvis, or leg fracture Acute spinal cord injury (< 1 month) Prophylaxis Regimen Total Risk Factor Score Risk Level Prophylaxis Regimen 0-1 Low Early ambulation 2 Moderate Order ONE of the following: *Sequential Compression Device (SCD) *Heparin 5000 units SQ BID 3-4 Higher Order ONE of the following medications: *Heparin 5000 units SQ TID *Enoxaparin/Lovenox 40 mg SQ daily (WT < 150 kg, CrCl > 30 mL/min) *Enoxaparin/Lovenox 30 mg SQ daily (WT < 150 kg, CrCl > 10-29 mL/min) *Enoxaparin/Lovenox 30 mg SQ BID (WT < 150 kg, CrCl > 30 mL/min) AND/OR *Sequential Compression Device (SCD) 5 or more Highest Order ONE of the following medications: *Heparin 5000 units SQ TID (Preferred with Epidurals) *Enoxaparin/Lovenox 40 mg SQ daily (WT < 150 kg, CrCl > 30 mL/min) *Enoxaparin/Lovenox 30 mg SQ daily (WT < 150 kg, CrCl > 10-29 mL/min) *Enoxaparin/Lovenox 30 mg SQ BID (WT < 150 kg, CrCl > 30 mL/min) AND *Sequential Compression Device (SCD) Assessment and Plan Assessment and Plan Nausea vomiting - Ileus versus obstruction per CT - General surgery Dr. Banks aware of the patient being admitted - NG tube to low wall suction - Nothing by mouth - Broad-spectrum antibiotics to cover abdominal sepsis - Panculture - DC antibiotics if cultures negative Hypotension - Possible sepsis - Broad-spectrum antibiotics - Infectious disease consultation - Aggressive IV fluid resuscitation - Centerline placement - Levophed to keep MAP above 65 COPD - O2 dependent - DuoNeb scheduled and when necessary - Hold steroids Bladder outlet obstruction - Flomax Hyperlipidemia - Resume statins when ileus/obstruction resolves Sacral decubitus - Wound Care consult DVT GI prophylaxis - Teds SCDs - Subcutaneous heparin - IV pantoprazole Critical Care: The total critical care time was 35 minutes. Time to perform other separately billable procedures was not included in the critical care time. Seven Hooker MD Apr 26, 2017 23:20
[2017-04-26 23:31] VITALS: BP 82/50; PULSE 79; RESP 18; O2SAT 96
[2017-04-27] VITALS (14 sets, daily range): BP systolic 86–130; BP diastolic 48–65; PULSE 42–89; RESP 18–19; TEMP 97.6–100.3; O2SAT 99–100
[2017-04-27] MEDS ORDERED: PIPERACIL-TAZO 4.5 GM PREMIX 100 ML IV SCH
--- NOTE | 2017-04-27 00:35 | RADRPT ---
EXAM DATE/TIME: 04/27/2017 00:18 [facility] COMPARISON: CT THORAX W/O CONTRAST, August 25, 2016, 21:20. CT ABDOMEN & PELVIS W/O CONTRAST, August 25, 2016, 20: 20. INDICATIONS : Hypotensive, brown fluid from peg tube, light brown emesis. Evaluate for obstruction. ORAL CONTRAST: No oral contrast ingested. RADIATION DOSE: 7.19 CTDIvol (mGy) MEDICAL HISTORY : Congestive heart failure. Gastroesophageal reflux disease. Chronic obstructive pulmonary disease.Hype rtension. Diabetes. Prostate cancer. SURGICAL HISTORY : Appendectomy. Hernia repair. ENCOUNTER: Initial ACUITY: 1 day PAIN SCALE: 8/10 LOCATION: Bilateral abdomen TECHNIQUE: Volumetric scanning of the abdomen and pelvis was performed. Using automated exposure control and ad justment of the mA and/or kV according to patient size, radiation dose was kept as low as reasonably achievable to obtain optimal diagnostic quality images. DICOM format image data is available electro nically for review and comparison. FINDINGS: There is bibasilar pulmonary fibrosis. There are centrilobular emphysematous changes in both lower lo bes. There is alveolar opacity in the right lower lobe which may reflect edema or pneumonia. Followup examination is recommended if clinically indicated.Coronary artery calcifications are present. The liver and spleen are normal in size and no focal defects are identified. The gallbladder and panc reas are unremarkable. No intrahepatic or extrahepatic ductal dilatation is seen. The adrenal glands and kidneys appear normal bilaterally. No hydronephrosis or mass lesions are identified. Prominent va scular calcification is present. There is small bowel dilatation throughout with a decompressed colon. A wide umbilical hernia is pres ent without signs of incarceration. The findings may be related to ileus or obstruction. A Hammond cath eter is present within the bladder which does not allow for evaluation. A gastrostomy tube is in plac e overlying the region of the stomach. CONCLUSION: 1. Small bowel dilatation which may reflect ileus or obstruction. Followup examination is recommended if clinically indicated. Gareth Escalante MD on April 27, 2017 at 0:27 Board Certified Radiologist. This report was verified electronically.
[2017-04-27] MEDS ORDERED: Vancomycin Consult Pharmacy 1 EA OTHER SCH (01:15)
[2017-04-27] MEDS ORDERED: NOREPINEPHRINE-DEXTROSE DRIP 250 ML IV ONE (01:16)
[2017-04-27] MEDS ORDERED: ONDANSETRON HCL 4 MG/2 ML VIAL ONE (01:23)
[2017-04-27] MEDS: SODIUM CHLOR 0.9% 1000 ML INJ 1,000 ML IV SCH ×3 (01:29→22:02)
[2017-04-27] MEDS: MICAFUNGIN INJ 100 MG in SODIUM CHLORIDE 0.9% INJ 100 ML IV SCH (01:29)
[2017-04-27] MEDS ORDERED: PIPERACIL-TAZO 2.25 GM PREMIX 50 ML IV SCH ×2 (02:00)
[2017-04-27] MEDS: ONDANSETRON HCL 4 MG/2 ML VIAL IV PUSH PRN ×2 (03:00→10:53)
--- NOTE | 2017-04-27 03:10 | RADRPT ---
EXAM DATE/TIME: 04/27/2017 02:39 [facility] COMPARISON: CHEST SINGLE AP, April 26, 2017, 21:46. INDICATIONS : Central line placement. MEDICAL HISTORY : Chronic obstructive pulmonary disease. Emphysema. SURGICAL HISTORY : PEG tube. ENCOUNTER: Subsequent ACUITY: 3 days PAIN SCORE: 0/10 LOCATION: Bilateral chest FINDINGS: The cardiac silhouette is normal in transverse diameter. There is patchy alveolar disease bilaterally compatible with edema or pneumonia. There has been no significant change when compared to the prior exam. A right sided internal jugular vein catheter is in place without pneumothorax with its tip in t he superior vena cava. CONCLUSION: 1. Uncomplicated line placement. No evidence of pneumothorax. Gareth Escalante MD on April 27, 2017 at 3:08 Board Certified Radiologist. This report was verified electronically.
[2017-04-27] MEDS: RESP: ALBUTEROL 2.5 MG/IPRATROPIUM 0.5 MG NEB (SCH) INH ×4 (03:30→20:37)
[2017-04-27] MEDS: CHLORHEXIDINE GLUCONATE 2 % 1 PACK (2 CLOTHS) TOP SCH (04:00)
[2017-04-27] MEDS: PIPERACIL-TAZO 2.25 GM PREMIX 50 ML IV SCH ×4 (04:00→21:07)
--- NOTE | 2017-04-27 05:27 | PD.PROCEDR ---
Procedure Note Procedure Centerline placement A time-out was completed verifying correct patient, procedure, site, positioning , and special equipment if applicable. The patient was placed in a dependent position appropriate for central line placement based on the vein to be cannulated. The patients right neck was prepped and draped in sterile fashion. 1% Lidocaine was used to anesthetize the surrounding skin area. A triple lumen 9 -Fijian Cordis catheter was introduced into the the internal jugular vein using the Seldinger technique and under ultrasound guidance. The catheter was threaded smoothly over the guide wire and appropriate blood return was obtained. Each lumen of the catheter was evacuated of air and flushed with sterile saline. The catheter was then sutured in place to the skin and a sterile dressing applied. Perfusion to the extremity distal to the point of catheter insertion was checked and found to be adequate. Estimated Blood Loss: 1ml The patient tolerated the procedure well and there were no complications. Seven Hooker MD Apr 27, 2017 5:27 am
[2017-04-27] MEDS: HEPARIN SODIUM - SQ 10,000 UNITS/ML VIAL SQ SCH ×3 (05:28→21:07)
[2017-04-27] MEDS ORDERED: NOREPINEPHRINE 4 MG/D5W 250 ML IV PRN (05:30)
[2017-04-27 06:03] LABS: AUTOMATED NEUTROPHIL # 23.4 TH/MM3 (1.8-7.7); BASOPHIL % 0.2 % (0.0-2.0); HEMATOCRIT 23.3 % (39.0-51.0); HEMO FLAGS DIFF FINAL; LYMPH % 3.5 % (9.0-44.0); LYMPHOCYTE # 0.9 TH/MM3 (1.0-4.8); MEAN CELL VOLUME 100.7 FL (80.0-100.0); MEAN CORPUSCULAR HEMOGLOBIN 33.4 PG (27.0-34.0); MEAN CORPUSCULAR HGB CONC 33.2 % (32.0-36.0); MONO % 7.7 % (0.0-8.0); NEUT % 88.6 % (16.0-70.0); PLATELET COUNT 223 TH/MM3 (150-450); RED BLOOD COUNT 2.32 MIL/MM3 (4.50-5.90); RED CELL DISTRIBUTION WIDTH 14.6 % (11.6-17.2); WHITE BLOOD COUNT 26.4 TH/MM3 (4.0-11.0)
[2017-04-27 06:33] LABS: ALKALINE PHOSPHATASE 124 U/L (45-117); ALT (GPT) 22 U/L (12-78); ANION GAP 9 MEQ/L (5-15); AST (GOT) 26 U/L (15-37); BICARBONATE 25.6 MEQ/L (21.0-32.0); BLOOD UREA NITROGEN 57 MG/DL (7-18); CHLORIDE 107 MEQ/L (98-107); GLOMERULAR FILTRATION RATE 39 ML/MIN (>89); POTASSIUM 4.4 MEQ/L (3.5-5.1); SODIUM (NA) 142 MEQ/L (136-145); TOTAL BILIRUBIN ADULT 0.4 MG/DL (0.2-1.0)
--- NOTE | 2017-04-27 08:58 | HHI.CCPN ---
Subjective Remarks/Hospital Course 72 year old unfortunate male presents with a history of sudden onset( 2 hours ago) of nausea and vomiting 1, then leakage from the area around his PEG tube that appeared to be stool. Ambulance services were called and the patient was noted to have what looked like fecal matter leaking around his PEG tube. The patient reports that he last received a PEG tube feeding early in the morning today. He reportedly was discharged from [facility] earlier today. He was in the rehabilitation for [facility] for about a month. Prior to that he was at [facility] for a ten-month. Dr. Jon Roberts is his surgeon. He was also noticed by EMT to be hypotensive with a blood pressure reportedly of 58/42 that improved to 80/43 with administration of normal saline a 1400 mL IV fluid bolus. The case was discussed by ED attending with general surgeon on-call Dr. Banks who requests to repeat a CT of the abdomen stat and admit patients to critical care services. Subjective: 04/27: Tmax 100.3. Patient complaints of nausea, Zofran provided. Patient remains on norepinephrine to maintain MAP. Chest x-ray shows possible pneumonia right lower lobe empiric antibiotics for coverage. Sputum culture. Patient complains of midabdominal pain and sacral pain from pre-existing sacral ulcer. Ofirmev provided. Objective Vital Signs Date Time Temp Pulse Resp B/P (MAP) Pulse Ox O2 Delivery O2 Flow Rate FiO2 04/27/17 08:43 100 Nasal Cannula 3.00 04/27/17 06:00 77 04/27/17 01:16 74/44 04/27/17 00:30 100.3 18 Intake and Output 04/27/17 04/27/17 04/27/17 07:59 15:59 23:59 Intake Total 400 ml Balance 400 ml Result Diagram: 04/27/17 0535 04/27/17 0535 Imaging Last 24 hours Impressions Chest X-Ray 04/26/172140 Signed Impressions: Service Date/Time: Wednesday, April 26, 2017 21:46 - CONCLUSION: 1. There is airspace consolidation in the peripheral left midlung zone. Although nonspecific this could represent an infectious process/pneumonia in the appropriate clinical setting. 2. Mild consolidation versus atelectasis in the right lower lung zone. Lex Malik MD Objective Remarks Infusions NS 125cc/hr Norepinephrine 6mcgs/min BP 112/75 Pulse 88 O2 saturation 99% on 3 L nasal cannula GENERAL: Well-nourished, well-developed patient in mild distress with complaints of nausea and pain in sacral area from decubitus ulcer, and midabdomen. SKIN: Warm and dry. HEAD: Normocephalic. EYES: No scleral icterus. No injection or drainage. EOMI intact NECK: Supple, trachea midline. No JVD or lymphadenopathy. CARDIOVASCULAR: Regular rate and rhythm without murmurs, gallops, or rubs. RESPIRATORY: Breath sounds equal bilaterally. No accessory muscle use.Mild expiratory wheezing noted. GASTROINTESTINAL: Soft, with a central abdominal hernia that is palpated and easily reducible, normal active bowel sounds are audible. The gastrostomy tube is noted in the center of the abdomen, erythema noted around site. No guarding, rebound, or rigidity. Normal bowel sounds are audible. No tenderness on palpation, or rebound tenderness. MUSCULOSKELETAL: No cyanosis, or edema. BACK: No costovertebral angle tenderness to palpation. On examination of the patient's back the patient is noted to have a sacral decubitus ulcer with pink granulation tissue noted at the base that is approximately 5.5 x 6.5 cm most prominent over the sacrum and left buttock. There is some tunneling at the upper aspect of the wound, however no induration. The patient's daughter reports that the wound is improved compared to previously. NEURO EXAM: Mental Status: The patient is alert and oriented to person, place, and time with normal speech. Cranial Nerves: Visual acuity intact bilaterally. Visual garcia normal in all quadrants. Pupils are round, reactive to light. Extraocular movements are intact without ptosis. Hearing is normal bilaterally. Voice is normal. Tongue protrudes midline and moves symmetrically. Reflexes: Biceps, patellar, and Achilles are 2/4 bilaterally. No clonus. Urinary Catheter: Yes (Patient has bladder outlet obstruction. Hammond dependent > 10 months) Vascular Central Line Catheter: Yes Assessment to: Continue Date of Insertion: Apr 26, 2017 Line: Central Venous Catheter Side: Right Location: Internal, Jugular (vasoactive medication) A/P Assessment and Plan Nausea vomiting Abdominal pain - Ileus versus obstruction per CT - General surgery Dr. Banks aware of the patient being admitted-plan for Gastrografin study this a.m. - NG tube to LIWS, patient refused - Maintain Nothing by mouth -04/26 CT abdomen-wide umbilical hernia without incarceration - Broad-spectrum antibiotics to cover abdominal sepsis -Ofirmev 1 g every 6 hours 24 hours, patient previously on Lortab on hold for now -Zofran every 4 hours when necessary Leukocytosis -Chest x-ray, CT scan-possible pneumonia process, right lower lobe - Monitor CBC ,WBC 32->26 today, resolution of bandemia -Obtain sputum culture -- Panculture F/U results - Deescalate antibiotics if cultures negative-patient received vancomycin and Zosyn in the ED, continue vancomycin and Zosyn and micafungin (day 2) Hypotension Dehydration Sepsis - Broad-spectrum antibiotics - Infectious disease consultation, F/U recommendations - Aggressive IV fluid resuscitation, Patient received 4 L bolus normal saline since admission, currently normal saline at 1 25 cc an hour -Creatinine improving 2.79-> 1.7 - Levophed to keep MAP above 65 COPD Pulmonary fibrosis Centrilobular emphysema - O2 dependent -Continue Symbicort twice a day - DuoNeb scheduled and when necessary - Hold steroids Bladder outlet obstruction - Flomax -Maintain Hammond catheter -Strict I&O's Hyperlipidemia DM - Resume statins when ileus/obstruction resolves -Glucose monitoring, low dose regimen -Obtain hemoglobin A1c Sacral decubitus - Wound Care consult F/U recommendation DVT GI prophylaxis - Teds SCDs - Subcutaneous heparin - IV pantoprazole Dispo: This patient remains critically ill with one or more organ systems which are or may become a threat to life. I have spent in excess of 37 minutes discontinuously in the care and management of this patient. This time is exclusive of procedures, and includes, but is not limited to, evaluation of the patient, review of the medical record, discussions with family, consultants, nursing staff, or respiratory therapy, and documentation in the medical record. Discussed with Dr. Banks, Ms. Meza, EXTRACORPOREAL CIRCULATION SPECIALIST at bedside ([facility]) Physician Marcelina Correia MD Apr 27, 2017 08:58
[2017-04-27] MEDS: SODIUM CHLORIDE 0.9% FLUSH 10 ML FLUSH IV FLUSH SCH ×2 (09:00→21:08)
[2017-04-27] MEDS: PANTOPRAZOLE SODIUM 40 MG VIAL IV PUSH SCH (09:22)
[2017-04-27] MEDS: ACETAMINOPHEN 1000 MG/100 ML 100 ML IV SCH ×3 (09:22→21:07)
[2017-04-27] MEDS ORDERED: GLUCAGON 1 MG/ML VIAL OTHER PRN (09:30)
[2017-04-27] MEDS ORDERED: DEXTROSE 50% IN WATER 50 ML VIAL(D50) IV PUSH PRN (09:30)
[2017-04-27] MEDS ORDERED: fentaNYL CITRATE 250 MCG/5 ML AMP IV PUSH ONE ×2 (11:30→11:45)
[2017-04-27] MEDS: INSULIN ASPART SUPPLEMENTAL SCALE SQ SCH ×3 (12:00→21:00)
--- NOTE | 2017-04-27 12:26 | PD.CONS ---
cc: Eleazar Banks MD [facility] Service General Surgery Consult Requested By Dr. Ronquillo Reason for Consult Ventral hernia Stool leaking around PEG insertion site Primary Care Physician Unknown History of Present Illness This is a 72-year-old male well known to the General Surgery service. He had a complicated hospitalization in August of this year with ventilator-dependent respiratory failure and tracheostomy tube placement by Dr. Jon Robrets. The patient was discharged to [facility] for rehabilitation and a PEG tube was placed there. The patient over the past several months has been in and out of rehabilitation and has spent a short period time at home. The tracheostomy tube has been removed. The patient was most recently at [facility] ([place], [place]) where he was actually doing quite well and tolerating tube feedings via his PEG tube. He's been working with speech therapy on his dysphagia. He was able to mobilize and get around rehabilitation. Yesterday evening the patient had a sudden onset of abdominal pain with 1 episode of emesis. The nurse noticed a stool-like substance coming from around the insertion site of the PEG tube. The patient was brought to the emergency department. The patient was found to be hypotensive and tachycardic. The patient has an elevated white blood cell count of 32.1. He had a low-grade fever on arrival. The patient does have elevated renal function. A urinalysis was completely and found to have a urinary tract infection and a culture is pending. The patient chronically has an indwelling Hammond catheter. The patient started on broad-spectrum antibiotics and a central line was placed for administration of vasopressors. The patient was given several normal saline boluses as well. On examination patient is alert and oriented and requesting ice water. The patient reports that his ventral hernia is no different than any other day. He reports that he is passing gas but has not had a bowel movement in about 3 or 4 days. A General Surgery consultation has been requested for evaluation of ventral hernia as well as a possible small bowel obstruction and malfunctioning PEG tube. Review of Systems Constitutional: COMPLAINS OF: Chills, DENIES: Fatigue, Weight gain Endocrine: DENIES: Polydipsia, Polyuria, Polyphagia Eyes: DENIES: Diplopia Ears, nose, mouth, throat: DENIES: Hearing loss Respiratory: DENIES: Apneas Cardiovascular: DENIES: Chest pain Gastrointestinal: COMPLAINS OF: Abdominal pain, Nausea, Vomiting, DENIES: Constipation, Diarrhea Genitourinary: DENIES: Urgency Musculoskeletal: DENIES: Joint pain Integumentary: DENIES: Abnormal pigmentation Hematologic/lymphatic: DENIES: Bruising Immunologic/allergic: DENIES: Eczema Neurologic: DENIES: Abnormal gait, Headache Psychiatric: DENIES: Confusion, Mood changes, Depression Past Family Social History Past Medical History COPD Hypertension Prostate cancer Bladder outlet obstruction Pneumonia Past Surgical History Tracheostomy tube placement PEG tube placement Repair of ventral hernia with mesh placement Reported Medications DuoNeb Flomax Cardizem Lathrop Trazodone Symbicort Protonix Prednisone Allergies: Coded Allergies: *MDRO Multi-Drug Resistant Organism (Verified Adverse Reaction, Unknown, ) MRSA (abdominal wound) 2015 per 04/10/2015 H&P MRSA PCR Screens NEGATIVE - 08/10/16 & 08/21/16 CLEARED PER INFECTION CONTROL PROTOCOL Active Ordered Medications Current Medications Medications (Trade) Dose Ordered Sig/Tee Route Start Time Stop Time Status Last Admin (Symbicort 160-4.5 Inh) 2 puff BID INH 04/27/17 09:00 (Flomax) 0.4 mg HS PO 04/27/17 21:00 (Desyrel) 75 mg HS PRN PO 04/26/17 23:00 (Pill Splitter) 1 ea UNSCH PRN OTHER 04/26/17 23:15 Sodium Chloride 1,000 ml @ 125 mls/hr Q8H IV 04/26/17 23:00 04/27/17 01:29 (NS Flush) 2 ml UNSCH PRN IV FLUSH 04/26/17 23:00 (NS Flush) 2 ml BID IV FLUSH 04/27/17 09:00 04/27/17 09:00 (Protonix Inj) 40 mg DAILY IV PUSH 04/27/17 09:00 04/27/17 09:22 (Duoneb Neb) 1 ampule Q6HR NEB INH 04/27/17 04:00 04/27/17 08:33 (Duoneb Neb) 1 ampule Q2HR NEB PRN NEB 04/26/17 23:15 (Heparin Inj) 5,000 units Q8HR SQ 04/27/17 06:00 04/27/17 05:28 Micafungin Sodium 100 mg/Sodium Chloride 100 ml @ 100 mls/hr Q24H IV 04/27/17 01:00 04/27/17 01:29 Miscellaneous Information 1 Q361D XX 04/26/17 23:00 (Chlorhexidine 2% Cloth) 3 pack Taper DAILY@04 TOP 04/27/17 04:00 04/23/18 03:59 (Chlorhexidine 2% Cloth) 3 pack UNSCH PRN TOP 04/26/17 23:00 Piperacillin Sod/ Tazobactam Sod 50 ml @ 100 mls/hr Q6H IV 04/27/17 04:00 04/27/17 09:21 Pharmacy Profile Note 0 ml @ 0 mls/hr UNSCH OTHER 04/27/17 01:15 (Zofran Inj) 4 mg Q4H PRN IV PUSH 04/27/17 02:45 04/27/17 10:53 Norepinephrine Bitartrate 250 ml @ 7.5 mls/hr TITRATE PRN IV 04/27/17 05:30 Vancomycin HCl 1000 mg/Sodium Chloride 250 ml @ 250 mls/hr Q24H IV 04/27/17 23:00 Miscellaneous Information SPECIFIC LAB TO BE DRAWN:[facility] DATE TO BE DRKimberly.. ONCE ONCE .XX 04/29/17 22:45 04/29/17 22:46 Acetaminophen 100 ml @ 400 mls/hr Q6H IV 04/27/17 09:00 04/28/17 08:59 04/27/17 09:22 (D50w (Vial) Inj) 50 ml UNSCH PRN IV PUSH 04/27/17 09:30 (Glucagon Inj) 1 mg UNSCH PRN OTHER 04/27/17 09:30 (NovoLOG SUPPLEMENTAL SCALE) 1 ACHS SLIDING SCALE SQ 04/27/17 12:00 Family History Noncontributory Social History Positive tobacco use Denies EtOH use Denies illicit drug use Has been in and out of hospitals and rehabilitation for about the last 8 months. Physical Exam Vital Signs Vital Signs Date Time Temp Pulse Resp B/P (MAP) Pulse Ox O2 Delivery O2 Flow Rate FiO2 04/27/17 08:43 100 Nasal Cannula 3.00 04/27/17 06:00 77 04/27/17 04:00 84 04/27/17 02:00 89 04/27/17 01:16 82 74/44 04/27/17 00:38 04/27/17 00:30 100.3 42 18 86/48 (61) 99 04/27/17 00:30 93 Nasal Cannula 3.00 04/27/17 00:30 89 04/26/17 23:31 79 18 82/50 (61) 96 3.00 04/26/17 23:18 99 Nasal Cannula 3.00 04/26/17 23:07 77 18 76/49 (58) 99 Nasal Cannula 4.00 04/26/17 22:41 90 60/40 (47) Nasal Cannula 4.00 04/26/17 21:36 98.0 90 20 69/48 (55) 4.00 04/26/17 21:30 98.0 92 18 61/45 (50) Physical Exam GENERAL: 72 year old male alert and awake in no acute distress. SKIN: Warm and dry. HEAD: Atraumatic. Normocephalic. EYES: Pupils equal and round. No scleral icterus. No injection or drainage. ENT: No nasal bleeding or discharge. Mucous membranes pink and moist. NECK: Trachea midline. CARDIOVASCULAR: Regular rate and rhythm. RESPIRATORY: No accessory muscle use. Clear to auscultation. Breath sounds equal bilaterally. GASTROINTESTINAL: Abdomen soft, large ventral hernia present. Multiple well healed incisions on abdomen. PEG in place with some excoriation around insertion site. No stool or fecal like material coming from insertion site and time of exam. GENITOURINARY: Indwelling Hammond catheter in place with clear yellow urine. MUSCULOSKELETAL: Extremities without clubbing, cyanosis, or edema. No obvious deformities. NEUROLOGICAL: Awake and alert. No obvious cranial nerve deficits. Motor grossly within normal limits. Five out of 5 muscle strength in the arms and legs. Normal speech. PSYCHIATRIC: Appropriate mood and affect; insight and judgment normal. Laboratory Laboratory Tests Test 04/26/17 21:45 04/26/17 22:35 04/26/17 23:45 04/27/17 00:40 White Blood Count 32.1 Red Blood Count 2.72 Hemoglobin 9.2 Hematocrit 27.7 Mean Corpuscular Volume 101.5 Mean Corpuscular Hemoglobin 33.8 Mean Corpuscular Hemoglobin Concent 33.3 Red Cell Distribution Width 15.2 Platelet Count 276 Mean Platelet Volume 8.9 Neutrophils (%) (Auto) 90.8 Lymphocytes (%) (Auto) 1.5 Monocytes (%) (Auto) 7.5 Eosinophils (%) (Auto) 0.0 Basophils (%) (Auto) 0.2 Neutrophils # (Auto) 29.2 Lymphocytes # (Auto) 0.5 Monocytes # (Auto) 2.4 Eosinophils # (Auto) 0.0 Basophils # (Auto) 0.0 CBC Comment AUTO DIFF Differential Total Cells Counted 100 Neutrophils % (Manual) 58 Band Neutrophils % 33 Lymphocytes % 2 Monocytes % 5 Neutrophils # (Manual) 29.9 Metamyelocytes 2 Differential Comment FINAL DIFF MANUAL Toxic Granulation 1+ Platelet Estimate NORMAL Platelet Morphology Comment NORMAL Prothrombin Time 12.2 Prothromb Time International Ratio 1.1 Activated Partial Thromboplast Time 30.6 Blood Urea Nitrogen 69 Creatinine 2.79 Random Glucose 144 Total Protein 7.2 Albumin 3.1 Calcium Level 8.6 Magnesium Level 1.8 Alkaline Phosphatase 150 Aspartate Amino Transf (AST/SGOT) 26 Alanine Aminotransferase (ALT/SGPT) 25 Total Bilirubin 0.5 Sodium Level 136 Potassium Level 4.7 Chloride Level 98 Carbon Dioxide Level 29.4 Anion Gap 9 Estimat Glomerular Filtration Rate 23 Total Creatine Kinase 33 Troponin I LESS THAN 0.02 B-Type Natriuretic Peptide 83 Lipase 39 Urine Color YELLOW Urine Turbidity CLOUDY Urine pH 6.0 Urine Specific [place] 1.021 Urine Protein 300 Urine Glucose (UA) NEG Urine Ketones NEG Urine Occult Blood LARGE Urine Nitrite NEG Urine Bilirubin NEG Urine Urobilinogen 2.0 Urine Leukocyte Esterase LARGE Urine RBC Urine WBC Urine WBC Clumps MANY Urine Squamous Epithelial Cells 2 Urine Bacteria MOD Urine Hyaline Casts 20 Urine Mucus FEW Urine Yeast (Budding) MANY Microscopic Urinalysis Comment CULTURE INDICATED Lactic Acid Level 1.8 Nasal Screen MRSA (PCR) MRSA NOT DETECTED Test 04/27/17 05:35 04/27/17 09:45 White Blood Count 26.4 Red Blood Count 2.32 Hemoglobin 7.8 Hematocrit 23.3 Mean Corpuscular Volume 100.7 Mean Corpuscular Hemoglobin 33.4 Mean Corpuscular Hemoglobin Concent 33.2 Red Cell Distribution Width 14.6 Platelet Count 223 Mean Platelet Volume 8.2 Neutrophils (%) (Auto) 88.6 Lymphocytes (%) (Auto) 3.5 Monocytes (%) (Auto) 7.7 Eosinophils (%) (Auto) 0.0 Basophils (%) (Auto) 0.2 Neutrophils # (Auto) 23.4 Lymphocytes # (Auto) 0.9 Monocytes # (Auto) 2.0 Eosinophils # (Auto) 0.0 Basophils # (Auto) 0.0 CBC Comment DIFF FINAL Differential Comment Blood Urea Nitrogen 57 Creatinine 1.74 Random Glucose 123 Total Protein 5.9 Albumin 2.5 Calcium Level 7.7 Alkaline Phosphatase 124 Aspartate Amino Transf (AST/SGOT) 26 Alanine Aminotransferase (ALT/SGPT) 22 Total Bilirubin 0.4 Sodium Level 142 Potassium Level 4.4 Chloride Level 107 Carbon Dioxide Level 25.6 Anion Gap 9 Estimat Glomerular Filtration Rate 39 Date/Time Source Procedure Growth Status 04/26/17 21:50 Blood Peripheral Aerobic Blood Culture - Preliminary NO GROWTH IN 1 DAY Resulted 04/26/17 21:50 Blood Peripheral Anaerobic Blood Culture - Preliminary NO GROWTH IN 1 DAY Resulted 04/27/17 10:06 Sputum Expectorated Sputum Gram Stain Pending Received 04/27/17 10:06 Sputum Expectorated Sputum Sputum Culture Pending Received 04/26/17 22:35 Urine Clean Catch Urine Culture Pending Received Result Diagram: 04/27/17 0535 04/27/17 0535 Imaging Last 48 hours Impressions Chest X-Ray 04/27/17 0000 Signed Impressions: Service Date/Time: Thursday, April 27, 2017 02:39 - CONCLUSION: 1. Uncomplicated line placement. No evidence of pneumothorax. Gareth Escalante MD Chest X-Ray 04/26/172140 Signed Impressions: Service Date/Time: Wednesday, April 26, 2017 21:46 - CONCLUSION: 1. There is airspace consolidation in the peripheral left midlung zone. Although nonspecific this could represent an infectious process/pneumonia in the appropriate clinical setting. 2. Mild consolidation versus atelectasis in the right lower lung zone. Lex Malik MD Abdomen/Pelvis CT 04/26/172140 Signed Impressions: Service Date/Time: Thursday, April 27, 2017 00:18 - CONCLUSION: 1. Small bowel dilatation which may reflect ileus or obstruction. Followup examination is recommended if clinically indicated. Gareth Escalante MD Assessment and Plan Assessment and Plan 72 year old male with sudden acute onset of abdominal pain; septic shock -Study PEG tube with Gastrografin today -Okay for sips of water and ice -Wean pressors as tolerated -Continue IVF -Continue antibiotics -Protective ointment around PEG insertion site -Doubt obstruction from ventral hernia at this time -Thank you for this consult -Will continue to follow Discussed Condition With Olivia Cyr Dr., RN Apr 27, 2017 12:26
[2017-04-27] MEDS ORDERED: LANOLIN TOPICAL PRN (13:00)
[2017-04-27] MEDS ORDERED: LANOLIN TOPICAL SCH (13:00)
--- NOTE | 2017-04-27 13:19 | MB ---
cc: VALENTINA KASPER MD DATE OF CONSULTATION 04/27/[address] Hooker REASON FOR CONSULTATION Abdominal sepsis HISTORY OF PRESENT ILLNESS This is a 72-year-old white male who developed nausea, vomiting and abdominal pain. The patient was noted to have leakage of fecal matter around his PEG tube. He was evaluated in the emergency department yesterday and was noted to have hypotension with a blood pressure of 60/40 and a white count of 32.1 along with a left shift including 33% bands. The patient has been fed via the PEG tube. He states that he had not moved his bowels for four days and that he vomited for the last three days. Currently he is awake and alert. A CT scan of the abdomen and pelvis shows small bowel dilatation which may reflect ileus or obstruction. The patient is currently on Levophed. Multiple cultures have been obtained. The patient had a temperature of 100.3 degrees earlier today. PAST MEDICAL HISTORY 1. Hypertension 2. Hyperlipidemia 3. COPD 4. Prostate cancer 5. Ventral hernia 6. Appendectomy 7. Perforated gastric ulcer repair 8. PEG tube placement. ALLERGIES NO KNOWN DRUG ALLERGIES. MEDICATIONS 1. Vancomycin 2. Piperacillin/tazobactam 3. Micafungin 4. Norepinephrine 5. DuoNeb 6. Protonix 7. Symbicort 8. Flomax SOCIAL HISTORY No tobacco, no alcohol, no illicit drugs. FAMILY HISTORY Noncontributory REVIEW OF SYSTEMS GENERAL: No fevers or chills. HEAD, EYES, EARS, NOSE, AND THROAT: Denies visual blurring or diplopia, denies nasal bleeding. Denies soreness of the throat or difficulty swallowing. RESPIRATORY: Denies cough, shortness of breath. CARDIOVASCULAR: Denies chest pain, palpitations. GASTROINTESTINAL: Complains of abdominal pain, nausea, vomiting, constipation. GENITOURINARY: Denies urgency, frequency, dysuria. MUSCULOSKELETAL: Denies pain in muscles or joints. INTEGUMENTARY: Denies skin rash or itching. HEMATOPOIETIC: Denies easy bruising. NEUROLOGIC: Denies abnormal gait. PSYCHIATRIC: Denies mood changes or depression. PHYSICAL EXAM This is a well-developed male who is in no acute distress. He is awake, alert and oriented. VITAL SIGNS: Temperature 100.3, systolic blood pressure 113. HEENT: The head is atraumatic, pupils reactive to light. No icterus. Oropharynx, moist mucosa. No lesions. NECK: Supple. No adenopathy. LUNGS: Clear with decreased breath sounds. HEART: Regular S1 and S2. No murmurs, rubs or gallops. ABDOMEN: Bulge is apparent at the lower abdomen in the umbilicus area where the PEG tube exits the abdomen. There is no drainage visible around the PEG tube currently. There is no erythema. The abdomen is soft. No palpable mass. RECTAL: Not performed. EXTREMITIES: No clubbing or cyanosis or edema. SKIN: No rash. PSYCHIATRIC: The patient is calm and cooperative. LABORATORY DATA WBC 26.4, platelets 223, hemoglobin 7.8, 88% neutrophils. Creatinine 1.74, BUN 57, sodium 142, estimated GFR 39. LFTs normal. IMPRESSION 1. Sepsis 2. Abdominal pain and PEG tube malfunction. 3. Leukocytosis secondary to sepsis 4. Possible aspiration pneumonia in a patient who has been vomiting. 5. Acute renal disease RECOMMENDATIONS 1. Continue broad-spectrum antibiotic treatment with vancomycin, piperacillin/tazobactam and micafungin. 2. Monitor sputum culture. 3. Monitor blood cultures. 4. Monitor urine culture. 5. Monitor white blood cell count. 6. Monitor clinical status. Thank you this consultation. Further recommendations will be given upon followup. Valentina Kasper MD FD/JEREMIAS /12:41 PM /1:09 PM
--- NOTE | 2017-04-27 13:50 | RADRPT ---
EXAM DATE/TIME: 04/27/2017 13:09 [facility] COMPARISON: CT ABDOMEN & PELVIS W/O CONTRAST, April 27, 2017, 0:18. INDICATIONS : Evaluate PEG tube placement. MEDICAL HISTORY : Chronic obstructive pulmonary disease. Emphysema. SURGICAL HISTORY : PEG tube. ENCOUNTER: Subsequent ACUITY: 1 day PAIN SCORE: 0/10 LOCATION: abdomen FINDINGS: Single frontal view of the abdomen following injection of a PEG tube documents contrast within the du odenal C-loop with a trace amount of contrast remaining within the stomach. Distal aspect of the tube overlies the distal stomach. There are abnormally dilated segments of small bowel in the central abd omen. No organomegaly is appreciated. Lung bases are clear. CONCLUSION: 1. The oral contrast material outlines the duodenal C-loop. No abnormal extravasation is identified. Feeding tube is likely within the distal stomach. 2. Persistent abnormally dilated small bowel in the central abdomen. However, it has improved compare d to the earlier CT. Lex Malik MD on April 27, 2017 at 13:46 Board Certified Radiologist. This report was verified electronically.
[2017-04-27 18:08] LABS: HEMOGLOBIN A1b 1.6 %; HEMOGLOBIN Ao 85.3 %; HEMOGLOBIN LA1C 2.4 %; HEMOGLOBIN P3 5.7 %
--- NOTE | 2017-04-27 19:05 | EKG ---
Date Performed: 04/26/2017 Time Performed: 21:37:14 PTAGE: 72 years EKG: Sinus rhythm RIGHT BUNDLE BRANCH BLOCK WHEN COMPARED TO PRIOR EKG PATIENT IS NOW BACK IN SINUS RHYTHM. ABNORMAL E CG PREVIOUS TRACING 09/30/2016 DOCTOR: Bushra Abbott Interpretating Date/Time 04/27/2017 19:03:12
[2017-04-27] MEDS: BUDESONIDE-FORMOTEROL 160/4.5 MCG INHALER INH SCH (21:00)
[2017-04-27] MEDS: TAMSULOSIN HCL 0.4 MG CAP PO SCH (21:07)
[2017-04-28] VITALS (14 sets, daily range): BP systolic 110–137; BP diastolic 56–78; PULSE 65–92; RESP 18–24; TEMP 98–98.6; O2SAT 96–100
[2017-04-28] MEDS: VANCOMYCIN INJ 1,000 MG in SODIUM CHLOR 0.9% 250 ML INJ 250 ML IV SCH ×2 (00:20→23:26)
[2017-04-28] MEDS: MICAFUNGIN INJ 100 MG in SODIUM CHLORIDE 0.9% INJ 100 ML IV SCH (00:20)
[2017-04-28] MEDS: ACETAMINOPHEN 1000 MG/100 ML 100 ML IV SCH (03:36)
[2017-04-28] MEDS: RESP: ALBUTEROL 2.5 MG/IPRATROPIUM 0.5 MG NEB (SCH) INH ×4 (03:50→19:43)
[2017-04-28] MEDS: CHLORHEXIDINE GLUCONATE 2 % 1 PACK (2 CLOTHS) TOP SCH (04:00)
[2017-04-28 04:59] LABS: BASOPHIL # 0.1 TH/MM3 (0-0.2); BASOPHIL % 0.3 % (0.0-2.0); EOSINOPHIL # 0.1 TH/MM3 (0-0.4); EOSINOPHIL % 0.3 % (0.0-4.0); HEMATOCRIT 24.6 % (39.0-51.0); HEMO FLAGS DIFF FINAL; LYMPHOCYTE # 1.2 TH/MM3 (1.0-4.8); MEAN CELL VOLUME 101.8 FL (80.0-100.0); MEAN CORPUSCULAR HEMOGLOBIN 33.5 PG (27.0-34.0); MEAN CORPUSCULAR HGB CONC 32.9 % (32.0-36.0); MONO % 6.2 % (0.0-8.0); NEUT % 87.2 % (16.0-70.0); PLATELET COUNT 240 TH/MM3 (150-450); RED BLOOD COUNT 2.41 MIL/MM3 (4.50-5.90); RED CELL DISTRIBUTION WIDTH 15.1 % (11.6-17.2); WHITE BLOOD COUNT 19.5 TH/MM3 (4.0-11.0)
[2017-04-28] MEDS: PIPERACIL-TAZO 2.25 GM PREMIX 50 ML IV SCH ×4 (05:25→21:52)
[2017-04-28] MEDS: HEPARIN SODIUM - SQ 10,000 UNITS/ML VIAL SQ SCH ×3 (05:25→21:52)
[2017-04-28 05:44] LABS: BICARBONATE 24.3 MEQ/L (21.0-32.0); MAGNESIUM 1.7 MG/DL (1.5-2.5); POTASSIUM 3.6 MEQ/L (3.5-5.1)
[2017-04-28] MEDS: SODIUM CHLOR 0.9% 1000 ML INJ 1,000 ML IV SCH ×3 (07:00→23:00)
[2017-04-28] MEDS: INSULIN ASPART SUPPLEMENTAL SCALE SQ SCH ×4 (07:36→21:00)
[2017-04-28] MEDS: PANTOPRAZOLE SODIUM 40 MG VIAL IV PUSH SCH (08:23)
[2017-04-28] MEDS: SODIUM CHLORIDE 0.9% FLUSH 10 ML FLUSH IV FLUSH SCH ×2 (08:23→21:00)
[2017-04-28] MEDS: ONDANSETRON HCL 4 MG/2 ML VIAL IV PUSH PRN (08:23)
[2017-04-28] MEDS: BUDESONIDE-FORMOTEROL 160/4.5 MCG INHALER INH SCH ×2 (09:00→21:00)
--- NOTE | 2017-04-28 09:49 | PD.WCN.NOT ---
Wound Consult Description: Received consult for Pressure ulcer coccyx from Doctor Marcelina Ronquillo Communicated with: ALEXANDER Roa 3 [facility] and Doctor Marcelina Ronquillo Recommendation: 1.Please cleanse coccyx wound with wound cleanser and pat dry. Pack wound with Maxorb II (Calcium alginate) dressing and cover with adhesive foam dressing. Change dressing every 2 days or PRN if saturated or dislodged. 2. May need silver nitrate with next wound care visit for epibole to wound margins 3. Please obtain Osteen Airapy bed or if not available order K 4 bed from [facility] 4. Please assist patient with turning and repositioning in bed every 2 hours and PRN for comfort and to offload pressure from sacrum and coccyx. Additional Information: Patient seen on 3 [facility] for evaluation of pressure ulcer to coccyx.Patient is known to wound care from previous admission and was last seen by inpatient wound care on 02/18. Patient is laying on regular [facility] bed. Minimally assisted patient to L side with the assistance of Janina and leader writer. 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 Wound bed presents with ~10% bone, ~ 40% pale red non granulation tissue and ~50% muscle tissue.Wound margins present with epibole from 9 to 4 o' clock and maceration from 2 to 6 o'clock.Cleansed wound with wound auto cleaner. Wound measures 4.4cm x 2.8cm x 0.7cm. Undermining is noted from 8 to 1 o'clock, deepest at 12 o'clock measuring 3cm.Wound drainage is moderate and sero- sanguinous without odor.Periwound is unremarkable.Cleansed wound with wound cleanser before packing wound with Maxorb II (Calcium alginate). Applied Cavilon skin prep to periwound before applying adhesive foam dressing. Patient may need treatment with silver nitrate for epibole to wound margins during next wound care nurse visit. Specialty bed, and nutrition consult ordered. Marti Jah [facility] Apr 28, 2017 09:49
[2017-04-28] MEDS ORDERED: BISACODYL 10 MG SUPP RECTAL ONE (10:15)
[2017-04-28] MEDS: VITAMINS A & D OINT 60 GM TUBE TOPICAL SCH ×2 (11:00→20:45)
--- NOTE | 2017-04-28 11:18 | HHI.PR ---
cc: Eleazar Banks MD Subjective Subjective Notes DAILY ICU PROGRESS NOTE FOR SURGICAL ATTENDING, DR. ELEAZAR BANKS Patient in the intensive care unit weaning off his drips Had some drainage coming from around PEG tube last night Agrees to Speech Evaluation Objective Vitals/I&O Vital Signs Date Time Temp Pulse Resp B/P (MAP) Pulse Ox O2 Delivery O2 Flow Rate FiO2 04/28/17 10:00 66 04/28/17 08:00 98.0 20 127/62 (83) 100 04/28/17 07:00 Nasal Cannula 2.00 Labs Laboratory Tests Test 04/28/17 04:15 White Blood Count 19.5 Red Blood Count 2.41 Hemoglobin 8.1 Hematocrit 24.6 Mean Corpuscular Volume 101.8 Mean Corpuscular Hemoglobin 33.5 Mean Corpuscular Hemoglobin Concent 32.9 Red Cell Distribution Width 15.1 Platelet Count 240 Mean Platelet Volume 8.2 Neutrophils (%) (Auto) 87.2 Lymphocytes (%) (Auto) 6.0 Monocytes (%) (Auto) 6.2 Eosinophils (%) (Auto) 0.3 Basophils (%) (Auto) 0.3 Neutrophils # (Auto) 17.0 Lymphocytes # (Auto) 1.2 Monocytes # (Auto) 1.2 Eosinophils # (Auto) 0.1 Basophils # (Auto) 0.1 CBC Comment DIFF FINAL Differential Comment Blood Urea Nitrogen 31 Creatinine 0.94 Random Glucose 96 Calcium Level 8.4 Phosphorus Level 2.0 Magnesium Level 1.7 Sodium Level 142 Potassium Level 3.6 Chloride Level 108 Carbon Dioxide Level 24.3 Anion Gap 10 Estimat Glomerular Filtration Rate 79 Date/Time Source Procedure Growth Status 04/26/17 21:50 Blood Peripheral Aerobic Blood Culture - Preliminary NO GROWTH IN 2 DAYS Resulted 04/26/17 21:50 Blood Peripheral Anaerobic Blood Culture - Preliminary NO GROWTH IN 2 DAYS Resulted 04/27/17 15:25 Sputum Expectorated Sputum Gram Stain - Final Resulted 04/27/17 15:25 Sputum Expectorated Sputum Sputum Culture Pending Resulted 04/26/17 22:35 Urine Clean Catch Urine Culture - Final Ashley Albicans Complete Radiology Last Impressions Chest X-Ray 04/27/17 0000 Signed Impressions: Service Date/Time: Thursday, April 27, 2017 02:39 - CONCLUSION: 1. Uncomplicated line placement. No evidence of pneumothorax. Gareth Escalante MD Abdomen X-Ray 04/27/17 0000 Signed Impressions: Service Date/Time: Thursday, April 27, 2017 13:09 - CONCLUSION: 1. The oral contrast material outlines the duodenal C-loop. No abnormal extravasation is identified. Feeding tube is likely within the distal stomach. 2. Persistent abnormally dilated small bowel in the central abdomen. However, it has improved compared to the earlier CT. Lex Malik MD Abdomen/Pelvis CT 04/26/172140 Signed Impressions: Service Date/Time: Thursday, April 27, 2017 00:18 - CONCLUSION: 1. Small bowel dilatation which may reflect ileus or obstruction. Followup examination is recommended if clinically indicated. Gareth Escalante MD Cardiovascular: Regular Lungs: Clear Abdomen: Other (large vental hernia; PEG in place with some drainage; excoriation around insertion site ) Extremities: No edema A/P Problem List: (1) PEG tube malfunction ICD Codes: K94.23 - Gastrostomy malfunction Status: Chronic (2) PEG (percutaneous endoscopic gastrostomy) status ICD Codes: Z93.1 - Gastrostomy status Status: Chronic (3) Sepsis due to urinary tract infection ICD Codes: A41.9 - Sepsis, unspecified organism; N39.0 - Urinary tract infection, site not specified Status: Acute (4) Ashley UTI ICD Codes: B37.49 - Other urogenital candidiasis Status: Acute (5) Fungemia ICD Codes: B49 - Unspecified mycosis Status: Acute (6) Incisional hernia ICD Codes: K43.2 - Incisional hernia Status: Chronic (7) Bladder outflow obstruction ICD Codes: N32.0 - Bladder-neck obstruction Status: Acute (8) Sepsis ICD Codes: A41.9 - Sepsis, unspecified organism Status: Acute (9) COPD exacerbation ICD Codes: J44.1 - COPD exacerbation Status: Chronic (10) Ashley sepsis ICD Codes: B37.7 - Candidal sepsis Status: Acute (11) Aspiration into airway ICD Codes: T17.908A - Unspecified foreign body in respiratory tract, part unspecified causing other injury, initial encounter Status: Chronic (12) Decubitus ulcer ICD Codes: L89.90 - Pressure ulcer of unspecified site, unspecified stage Status: Chronic Assessment and Plan 72 year old male with sepsis; UTI; gastric content leaking around PEG site -KUB with Gastrografin shows PEG tube in stomach -Inflated PEG balloon with saline -Speech eval;---Recommends modified barium swallow -NPO until complete -Continue antibiotics -Continue wean pressors as tolerated -Continue IVF -Monitor WBC/fevers Attending Statement NOTE FOR SURGICAL ATTENDING, DR. ELEAZAR BANKS Patient seen in the intensive care unit Review with nursing staff Reviewed with speech therapy she evaluate his swallowing I placed another 8 cc of saline in the balloon of the gastrostomy tube cleaned around the tube it appeared to stop the gastric drainage Start trickle tube feeds Encourage mobilization Depending on the speech therapy evaluation possible starts in by mouth intake Continue antibiotic therapy and fungal therapy I agree with above assessment and plan. The exam, history, and the medical decision-making described in the above note were completed with the assistance of the mid-level provider. I reviewed and agree with the findings presented. I attest that I had a [id number] encounter with the patient on the same day, and personally performed and documented my assessment and findings in the medical record. The following services were provided during this hospital visit: Chart data review, vital sign assessments/reviewing monitor data Review of consultations notes if present. Medication orders/review and/or management Ordering and/or reviewing lab tests Ordering and/or interpreting/reviewing x-rays and/or diagnostic studies Care of the patient and discussion of the patient with the care team Documentation time To help prompt me to consider important information that might be impacting today's encounter and assessment, information from prior notes written by myself or my colleagues may have been "brought forward/copy and pasted" into today's note. Problem Qualifiers (1) Incisional hernia: Qualified Codes: K43.2 - Incisional hernia without obstruction or gangrene (2) Sepsis: Qualified Codes: B37.7 - Candidal sepsis (3) Aspiration into airway: Qualified Codes: T17.908S - Unspecified foreign body in respiratory tract, part unspecified causing other injury, sequela (4) Decubitus ulcer: Olivia Meza Apr 28, 2017 11:18 Eleazar Banks MD Apr 28, 2017 11:51
[2017-04-28] MEDS: HYDROmorphone HCL PF 0.5 MG/0.5 ML SYRINGE IV PUSH PRN ×3 (11:19→20:45)
--- NOTE | 2017-04-28 12:25 | HHI.IDPN ---
Note Infectious Disease Note Patient had episodes of vomiting. Also reported to have drainage of fluid around the PEG. Awake and alert. Afebrile. Admitted with nausea, vomiting and abdominal pain. The patient was noted to have leakage of fecal matter around his PEG tube. He was evaluated in the emergency department yesterday and was noted to have hypotension with a blood pressure of 60/40 and a white count of 32.1 along with a left shift including 33% bands. The patient has been fed via the PEG tube. PAST MEDICAL HISTORY 1. Hypertension 2. Hyperlipidemia 3. COPD 4. Prostate cancer 5. Ventral hernia 6. Appendectomy 7. Perforated gastric ulcer repair 8. PEG tube placement. ALLERGIES NO KNOWN DRUG ALLERGIES. MEDICATIONS 1. Vancomycin 2. Piperacillin/tazobactam 3. Micafungin SOCIAL HISTORY No tobacco, no alcohol, no illicit drugs. OBJECTIVE: Vital Signs Date Time Temp Pulse Resp B/P (MAP) Pulse Ox O2 Delivery O2 Flow Rate FiO2 04/28/17 11:35 97 Nasal Cannula 1.00 04/28/17 10:00 66 04/28/17 08:00 86 04/28/17 08:00 98.0 85 20 127/62 (83) 100 04/28/17 07:00 100 Nasal Cannula 2.00 04/28/17 06:00 83 04/28/17 04:00 82 04/28/17 04:00 98.6 82 18 118/56 (76) 100 04/28/17 02:00 65 04/28/17 01:33 16 126/58 04/28/17 00:00 77 04/28/17 00:00 98.3 77 24 110/56 (74) 100 04/27/17 22:00 81 04/27/17 20:37 100 Nasal Cannula 2.00 04/27/17 20:00 81 04/27/17 20:00 97.6 62 19 130/65 (86) 100 04/27/17 19:00 100 Nasal Cannula 2.00 04/27/17 19:00 100 Nasal Cannula 04/27/17 18:00 65 04/27/17 16:00 64 04/27/17 14:00 62 Laboratory Tests Test 04/26/17 21:45 04/27/17 05:35 04/28/17 04:15 White Blood Count 32.1 TH/MM3 26.4 TH/MM3 19.5 TH/MM3 Red Blood Count 2.72 MIL/MM3 2.32 MIL/MM3 2.41 MIL/MM3 Hemoglobin 9.2 GM/DL 7.8 GM/DL 8.1 GM/DL Hematocrit 27.7 % 23.3 % 24.6 % Mean Corpuscular Volume 101.5 FL 100.7 FL 101.8 FL Mean Corpuscular Hemoglobin 33.8 PG 33.4 PG 33.5 PG Mean Corpuscular Hemoglobin Concent 33.3 % 33.2 % 32.9 % Red Cell Distribution Width 15.2 % 14.6 % 15.1 % Platelet Count 276 TH/MM3 223 TH/MM3 240 TH/MM3 Mean Platelet Volume 8.9 FL 8.2 FL 8.2 FL Neutrophils (%) (Auto) 90.8 % 88.6 % 87.2 % Lymphocytes (%) (Auto) 1.5 % 3.5 % 6.0 % Monocytes (%) (Auto) 7.5 % 7.7 % 6.2 % Eosinophils (%) (Auto) 0.0 % 0.0 % 0.3 % Basophils (%) (Auto) 0.2 % 0.2 % 0.3 % Neutrophils # (Auto) 29.2 TH/MM3 23.4 TH/MM3 17.0 TH/MM3 Lymphocytes # (Auto) 0.5 TH/MM3 0.9 TH/MM3 1.2 TH/MM3 Monocytes # (Auto) 2.4 TH/MM3 2.0 TH/MM3 1.2 TH/MM3 Eosinophils # (Auto) 0.0 TH/MM3 0.0 TH/MM3 0.1 TH/MM3 Basophils # (Auto) 0.0 TH/MM3 0.0 TH/MM3 0.1 TH/MM3 CBC Comment AUTO DIFF DIFF FINAL DIFF FINAL Differential Total Cells Counted 100 Neutrophils % (Manual) 58 % Band Neutrophils % 33 % Lymphocytes % 2 % Monocytes % 5 % Neutrophils # (Manual) 29.9 TH/MM3 Metamyelocytes 2 % Differential Comment FINAL DIFF MANUAL Toxic Granulation 1+ Platelet Estimate NORMAL Platelet Morphology Comment NORMAL Laboratory Tests Test 04/26/17 21:45 04/26/17 23:45 04/27/17 05:35 04/27/17 09:45 Blood Urea Nitrogen 69 MG/DL 57 MG/DL Creatinine 2.79 MG/DL 1.74 MG/DL Random Glucose 144 MG/DL 123 MG/DL Total Protein 7.2 GM/DL 5.9 GM/DL Albumin 3.1 GM/DL 2.5 GM/DL Calcium Level 8.6 MG/DL 7.7 MG/DL Magnesium Level 1.8 MG/DL Alkaline Phosphatase 150 U/L 124 U/L Aspartate Amino Transf (AST/SGOT) 26 U/L 26 U/L Alanine Aminotransferase (ALT/SGPT) 25 U/L 22 U/L Total Bilirubin 0.5 MG/DL 0.4 MG/DL Sodium Level 136 MEQ/L 142 MEQ/L Potassium Level 4.7 MEQ/L 4.4 MEQ/L Chloride Level 98 MEQ/L 107 MEQ/L Carbon Dioxide Level 29.4 MEQ/L 25.6 MEQ/L Anion Gap 9 MEQ/L 9 MEQ/L Estimat Glomerular Filtration Rate 23 ML/MIN 39 ML/MIN Total Creatine Kinase 33 U/L Troponin I LESS THAN 0.02 NG/ML B-Type Natriuretic Peptide 83 PG/ML Lipase 39 U/L Lactic Acid Level 1.8 mmol/L Hemoglobin A1c 4.9 % Test 04/28/17 04:15 Blood Urea Nitrogen 31 MG/DL Creatinine 0.94 MG/DL Random Glucose 96 MG/DL Calcium Level 8.4 MG/DL Phosphorus Level 2.0 MG/DL Magnesium Level 1.7 MG/DL Sodium Level 142 MEQ/L Potassium Level 3.6 MEQ/L Chloride Level 108 MEQ/L Carbon Dioxide Level 24.3 MEQ/L Anion Gap 10 MEQ/L Estimat Glomerular Filtration Rate 79 ML/MIN Microbiology Date/Time Source Procedure Growth Status 04/26/17 21:50 Blood Peripheral Aerobic Blood Culture - Preliminary NO GROWTH IN 2 DAYS Resulted 04/26/17 21:50 Blood Peripheral Anaerobic Blood Culture - Preliminary NO GROWTH IN 2 DAYS Resulted 04/26/17 21:45 Blood Peripheral Aerobic Blood Culture - Preliminary NO GROWTH IN 2 DAYS Resulted 04/26/17 21:45 Blood Peripheral Anaerobic Blood Culture - Preliminary NO GROWTH IN 2 DAYS Resulted 04/27/17 15:25 Sputum Expectorated Sputum Gram Stain - Final Resulted 04/27/17 15:25 Sputum Culture - Preliminary Gram Negative Alec Resulted 04/26/17 22:35 Urine Clean Catch Urine Culture - Final Ashley Albicans Complete PHYSICAL EXAM This is a well-developed male who is in no acute distress. He is awake, alert and oriented. HEENT: The head is atraumatic, pupils reactive to light. No icterus. Oropharynx, moist mucosa. No lesions. NECK: Supple. No adenopathy. LUNGS: Clear with decreased breath sounds. HEART: Regular S1 and S2. No murmurs, rubs or gallops. ABDOMEN: Bulge is apparent at the lower abdomen in the umbilicus area where the PEG tube exits the abdomen. There is no drainage visible around the PEG tube currently. No erythema. The abdomen is soft. No palpable mass. EXTREMITIES: No clubbing or cyanosis or edema. SKIN: No rash. PSYCHIATRIC: Calm and cooperative. IMPRESSION 1. Sepsis 2. Abdominal pain and PEG tube malfunction. 3. Leukocytosis secondary to sepsis 4. Possible aspiration pneumonia in a patient who has been vomiting. 5. Acute renal disease. 6. Candiduria. RECOMMENDATIONS 1. Continue vancomycin. 2. Continue piperacillin/tazobactam. 3. Change micafungin to Diflucan. 4. Monitor sputum culture. 5. Monitor blood cultures. 6. Monitor urine culture. 6. Monitor white blood cell count. 7. Monitor clinical status. Gautam Yanez MD Apr 28, 2017 12:25
--- NOTE | 2017-04-28 13:23 | RADRPT ---
EXAM DATE/TIME: 04/28/2017 13:22 [place] COMPARISON: BA SWALLOW W/SPEECH PATHOLOGY, April 01, 2017, 0:00. INDICATIONS : Dysphagia. FLUORO TIME: 3.4 minutes IMAGE COUNT: 2 CONTRAST: Dose as prescribed by speech pathologist. MEDICAL HISTORY : Chronic obstructive pulmonary disease. Emphysema. SURGICAL HISTORY : PEG tube. ENCOUNTER: Initial ACUITY: 1 day PAIN SCORE: 0/10 LOCATION: esophagus FINDINGS: A modified barium swallow was performed with speech pathology. Patient was given a variety of liquids to swallow. For a full detailed report, see report by the speech pathologist. CONCLUSION: Please see consultation from speech pathology. Bear Olson MD FACR on April 28, 2017 at 13:21 Board Certified Radiologist. This report was verified electronically.
[2017-04-28] MEDS: METOCLOPRAMIDE HCL 10 MG/2 ML VIAL IV PUSH SCH ×2 (14:38→20:45)
[2017-04-28] MEDS: FLUCONAZOLE 100 MG PREMIX BAG 50 ML IV SCH (14:46)
[2017-04-28] MEDS: DEXT 5%-NACL 0.45% 1000 ML INJ 1,000 ML IV SCH (16:15)
[2017-04-28] MEDS: TAMSULOSIN HCL 0.4 MG CAP PO SCH (20:45)
[2017-04-29] VITALS (13 sets, daily range): BP systolic 110–140; BP diastolic 59–69; PULSE 54–82; RESP 17–24; TEMP 98.1–98.6; O2SAT 94–100
[2017-04-29] MEDS: HYDROmorphone HCL PF 0.5 MG/0.5 ML SYRINGE IV PUSH PRN ×4 (02:35→20:39)
[2017-04-29] MEDS: DEXT 5%-NACL 0.45% 1000 ML INJ 1,000 ML IV SCH ×4 (02:35→21:39)
[2017-04-29] MEDS: RESP: ALBUTEROL 2.5 MG/IPRATROPIUM 0.5 MG NEB (SCH) INH ×4 (03:22→20:07)
[2017-04-29] MEDS: CHLORHEXIDINE GLUCONATE 2 % 1 PACK (2 CLOTHS) TOP SCH (04:00)
[2017-04-29] MEDS: PIPERACIL-TAZO 2.25 GM PREMIX 50 ML IV SCH ×2 (04:53→09:09)
[2017-04-29] MEDS: METOCLOPRAMIDE HCL 10 MG/2 ML VIAL IV PUSH SCH ×3 (05:47→21:44)
[2017-04-29] MEDS: HEPARIN SODIUM - SQ 10,000 UNITS/ML VIAL SQ SCH ×3 (06:00→21:15)
[2017-04-29] MEDS: SODIUM CHLOR 0.9% 1000 ML INJ 1,000 ML IV SCH ×3 (07:00→21:45)
[2017-04-29] MEDS: INSULIN ASPART SUPPLEMENTAL SCALE SQ SCH ×4 (08:00→21:00)
[2017-04-29] MEDS: VITAMINS A & D OINT 60 GM TUBE TOPICAL SCH ×2 (09:00→21:00)
[2017-04-29] MEDS: SODIUM CHLORIDE 0.9% FLUSH 10 ML FLUSH IV FLUSH SCH ×2 (09:00→21:00)
[2017-04-29] MEDS: PANTOPRAZOLE SODIUM 40 MG VIAL IV PUSH SCH (09:09)
[2017-04-29] MEDS: BUDESONIDE-FORMOTEROL 160/4.5 MCG INHALER INH SCH ×2 (10:36→21:00)
[2017-04-29 11:59] LABS: AUTOMATED NEUTROPHIL # 7.3 TH/MM3 (1.8-7.7); BASOPHIL % 0.3 % (0.0-2.0); EOSINOPHIL # 0.1 TH/MM3 (0-0.4); EOSINOPHIL % 0.7 % (0.0-4.0); HEMATOCRIT 23.2 % (39.0-51.0); LYMPH % 7.5 % (9.0-44.0); LYMPHOCYTE # 0.7 TH/MM3 (1.0-4.8); MEAN CELL VOLUME 101.6 FL (80.0-100.0); MEAN CORPUSCULAR HEMOGLOBIN 34.5 PG (27.0-34.0); MEAN CORPUSCULAR HGB CONC 33.9 % (32.0-36.0); MONO % 7.3 % (0.0-8.0); NEUT % 84.2 % (16.0-70.0); PLATELET COUNT 204 TH/MM3 (150-450); RED BLOOD COUNT 2.29 MIL/MM3 (4.50-5.90); RED CELL DISTRIBUTION WIDTH 14.7 % (11.6-17.2); WHITE BLOOD COUNT 8.7 TH/MM3 (4.0-11.0)
[2017-04-29 12:03] LABS: HEMO FLAGS AUTO DIFF
[2017-04-29 12:30] LABS: BICARBONATE 24.9 MEQ/L (21.0-32.0)
[2017-04-29 12:38] LABS: POTASSIUM 2.7 MEQ/L (3.5-5.1)
[2017-04-29] MEDS ORDERED: MISCELLANEOUS PHARMACY INFORMATION XX PRN ×2 (12:45)
[2017-04-29] MEDS ORDERED: ASP: Documented ESBL, MDR A baumannii or P. aeruginosa PRN (12:45)
--- NOTE | 2017-04-29 12:49 | HHI.CCPN ---
Subjective Remarks/Hospital Course 72 year old unfortunate male presents with a history of sudden onset( 2 hours ago) of nausea and vomiting 1, then leakage from the area around his PEG tube that appeared to be stool. Ambulance services were called and the patient was noted to have what looked like fecal matter leaking around his PEG tube. The patient reports that he last received a PEG tube feeding early in the morning today. He reportedly was discharged from [facility] earlier today. He was in the rehabilitation for [facility] for about a month. Prior to that he was at [facility] for a ten-month. Dr. Jon Roberts is his surgeon. He was also noticed by EMT to be hypotensive with a blood pressure reportedly of 58/42 that improved to 80/43 with administration of normal saline a 1400 mL IV fluid bolus. The case was discussed by ED attending with general surgeon on-call Dr. Banks who requests to repeat a CT of the abdomen stat and admit patients to critical care services. Subjective: 04/27: Tmax 100.3. Patient complaints of nausea, Zofran provided. Patient remains on norepinephrine to maintain MAP. Chest x-ray shows possible pneumonia right lower lobe empiric antibiotics for coverage. Sputum culture. Patient complains of midabdominal pain and sacral pain from pre-existing sacral ulcer. Ofirmev provided. 04/29: Resting in bed comfortably. Not on any pressors since yesterday. Denies any shortness of breath. Objective Vital Signs Date Time Temp Pulse Resp B/P (MAP) Pulse Ox O2 Delivery O2 Flow Rate FiO2 04/29/17 12:00 65 04/29/17 08:13 97 21 04/29/17 08:00 98.1 24 110/60 (77) 04/29/17 07:00 Nasal Cannula 2.00 Intake and Output 04/29/17 04/29/17 04/29/17 07:59 15:59 23:59 Intake Total 1300 ml Balance 1300 ml Result Diagram: 04/29/17 1130 04/29/17 1130 Other Results Microbiology Date/Time Source Procedure Growth Status 04/26/17 22:35 Urine Clean Catch Urine Culture - Final Ashley Albicans Complete Imaging Last 24 hours Impressions Chest X-Ray 04/26/17 8639 Signed Impressions: Service Date/Time: Wednesday, April 26, 2017 21:46 - CONCLUSION: 1. There is airspace consolidation in the peripheral left midlung zone. Although nonspecific this could represent an infectious process/pneumonia in the appropriate clinical setting. 2. Mild consolidation versus atelectasis in the right lower lung zone. Lex Mailk MD Objective Remarks Infusions NS 125cc/hr GENERAL: Well-nourished, well-developed patient in mild distress with complaints of nausea and pain in sacral area from decubitus ulcer, and midabdomen. SKIN: Warm and dry. HEAD: Normocephalic. EYES: No scleral icterus. No injection or drainage. EOMI intact NECK: Supple, trachea midline. No JVD or lymphadenopathy. CARDIOVASCULAR: Regular rate and rhythm without murmurs, gallops, or rubs. RESPIRATORY: Breath sounds equal bilaterally. No accessory muscle use. No wheezing or crackles. GASTROINTESTINAL: Soft, with a central abdominal hernia that is palpated and easily reducible, normal active bowel sounds are audible. The gastrostomy tube is noted in the center of the abdomen, erythema noted around site. No guarding, rebound, or rigidity. Normal bowel sounds are audible. No tenderness on palpation, or rebound tenderness. MUSCULOSKELETAL: No cyanosis, or edema. BACK: No costovertebral angle tenderness to palpation. On examination of the patient's back the patient is noted to have a sacral decubitus ulcer with pink granulation tissue noted at the base that is approximately 5.5 x 6.5 cm most prominent over the sacrum and left buttock. There is some tunneling at the upper aspect of the wound, however no induration. The patient's daughter reports that the wound is improved compared to previously. NEURO EXAM: Awake alert oriented 3, moving all for ex-Mondays, grossly nonfocal. Date of Insertion: Apr 26, 2017 Line: Central Venous Catheter Side: Right Location: Internal, Jugular (vasoactive medication) A/P Assessment and Plan Nausea vomiting Abdominal pain - Ileus versus obstruction per CT - General surgery Dr. Bansk aware of the patient being admitted-plan for Gastrografin study - NG tube to LIWS, patient refused - Maintain Nothing by mouth -04/26 CT abdomen-wide umbilical hernia without incarceration - Broad-spectrum antibiotics to cover abdominal sepsis -Ofirmev 1 g every 6 hours 24 hours, patient previously on Lortab on hold for now -Zofran every 4 hours when necessary Leukocytosis -Chest x-ray, CT scan-possible pneumonia process, right lower lobe - Monitor CBC ,WBC 32->26 today, resolution of bandemia -Obtain sputum culture -- Panculture F/U results - continue vancomycin and Zosyn and micafungin (day 2) Hypotension Dehydration Sepsis - Broad-spectrum antibiotics - Infectious disease consultation, F/U recommendations - s/p aggressive IV fluid resuscitation, Patient received 4 L bolus normal saline since admission, currently normal saline at 125 cc an hour -Creatinine improving -Off pressors COPD Pulmonary fibrosis Centrilobular emphysema - O2 dependent -Continue Symbicort twice a day - DuoNeb scheduled and when necessary - Hold steroids Bladder outlet obstruction - Flomax -Maintain Hammond catheter -Strict I&O's Hyperlipidemia DM - Resume statins when ileus/obstruction resolves -Glucose monitoring, low dose regimen -Obtain hemoglobin A1c Sacral decubitus - Wound Care consult F/U recommendation DVT GI prophylaxis - Teds SCDs - Subcutaneous heparin - IV pantoprazole Patient will be transferred out of ICU for okay with surgery. We'll transfer to hospitalist service for further medical management. Critical care signing off at this time, please reconsult if needed. Blair Espinoza MD Apr 29, 2017 12:49
--- NOTE | 2017-04-29 12:51 | HHI.IDPN ---
Note Infectious Disease Note Patient coughing up green sputum. Awake and alert. Afebrile. Sputum culture has Klebsiella ESBL. Admitted with nausea, vomiting and abdominal pain. The patient was noted to have leakage of fecal matter around his PEG tube. He was evaluated in the emergency department yesterday and was noted to have hypotension with a blood pressure of 60/40 and a white count of 32.1 along with a left shift including 33% bands. The patient has been fed via the PEG tube. PAST MEDICAL HISTORY 1. Hypertension 2. Hyperlipidemia 3. COPD 4. Prostate cancer 5. Ventral hernia 6. Appendectomy 7. Perforated gastric ulcer repair 8. PEG tube placement. ALLERGIES NO KNOWN DRUG ALLERGIES. MEDICATIONS 1. Vancomycin 2. Piperacillin/tazobactam 3. Diflucan SOCIAL HISTORY No tobacco, no alcohol, no illicit drugs. OBJECTIVE: Vital Signs Date Time Temp Pulse Resp B/P (MAP) Pulse Ox O2 Delivery O2 Flow Rate FiO2 04/29/17 12:00 65 04/29/17 10:00 68 04/29/17 08:13 97 21 04/29/17 08:00 98.1 68 24 110/60 (77) 94 04/29/17 08:00 68 04/29/17 07:00 95 Nasal Cannula 2.00 04/29/17 04:00 74 04/29/17 04:00 98.3 74 22 110/59 (76) 100 04/29/17 02:00 68 04/29/17 00:00 66 04/29/17 00:00 98.3 66 17 140/66 (90) 100 04/28/17 22:00 67 04/28/17 20:00 92 04/28/17 20:00 98.1 92 24 133/64 (87) 96 04/28/17 19:48 97 Nasal Cannula 1.00 04/28/17 19:00 96 Nasal Cannula 2.00 04/28/17 18:00 68 04/28/17 16:00 98.2 67 22 137/72 (93) 96 04/28/17 16:00 81 04/28/17 14:00 70 Laboratory Tests Test 04/28/17 04:15 04/29/17 11:30 White Blood Count 19.5 TH/MM3 8.7 TH/MM3 Red Blood Count 2.41 MIL/MM3 2.29 MIL/MM3 Hemoglobin 8.1 GM/DL 7.9 GM/DL Hematocrit 24.6 % 23.2 % Mean Corpuscular Volume 101.8 FL 101.6 FL Mean Corpuscular Hemoglobin 33.5 PG 34.5 PG Mean Corpuscular Hemoglobin Concent 32.9 % 33.9 % Red Cell Distribution Width 15.1 % 14.7 % Platelet Count 240 TH/MM3 204 TH/MM3 Mean Platelet Volume 8.2 FL 8.2 FL Neutrophils (%) (Auto) 87.2 % 84.2 % Lymphocytes (%) (Auto) 6.0 % 7.5 % Monocytes (%) (Auto) 6.2 % 7.3 % Eosinophils (%) (Auto) 0.3 % 0.7 % Basophils (%) (Auto) 0.3 % 0.3 % Neutrophils # (Auto) 17.0 TH/MM3 7.3 TH/MM3 Lymphocytes # (Auto) 1.2 TH/MM3 0.7 TH/MM3 Monocytes # (Auto) 1.2 TH/MM3 0.6 TH/MM3 Eosinophils # (Auto) 0.1 TH/MM3 0.1 TH/MM3 Basophils # (Auto) 0.1 TH/MM3 0.0 TH/MM3 CBC Comment DIFF FINAL AUTO DIFF Differential Comment Laboratory Tests Test 04/28/17 04:15 04/29/17 11:30 Blood Urea Nitrogen 31 MG/DL 14 MG/DL Creatinine 0.94 MG/DL 0.73 MG/DL Random Glucose 96 MG/DL 121 MG/DL Calcium Level 8.4 MG/DL 8.2 MG/DL Phosphorus Level 2.0 MG/DL Magnesium Level 1.7 MG/DL Sodium Level 142 MEQ/L 143 MEQ/L Potassium Level 3.6 MEQ/L 2.7 MEQ/L Chloride Level 108 MEQ/L 110 MEQ/L Carbon Dioxide Level 24.3 MEQ/L 24.9 MEQ/L Anion Gap 10 MEQ/L 8 MEQ/L Estimat Glomerular Filtration Rate 79 ML/MIN 106 ML/MIN Microbiology Date/Time Source Procedure Growth Status 04/26/17 21:50 Blood Peripheral Aerobic Blood Culture - Preliminary NO GROWTH IN 3 DAYS Resulted 04/26/17 21:50 Blood Peripheral Anaerobic Blood Culture - Preliminary NO GROWTH IN 3 DAYS Resulted 04/26/17 21:45 Blood Peripheral Aerobic Blood Culture - Preliminary NO GROWTH IN 3 DAYS Resulted 04/26/17 21:45 Blood Peripheral Anaerobic Blood Culture - Preliminary NO GROWTH IN 3 DAYS Resulted 04/27/17 15:25 Sputum Expectorated Sputum Gram Stain - Final Resulted 04/27/17 15:25 Sputum Culture - Preliminary Klebsiella Pneumoniae Esbl Pos Pseudomonas Species Resulted 04/26/17 22:35 Urine Clean Catch Urine Culture - Final Ashley Albicans Complete Last 72 hours Impressions Modified Barium Swallow 04/28/17 0000 Signed Impressions: Service Date/Time: Friday, April 28, 2017 13:22 - CONCLUSION: Please see consultation from speech pathology. Bear Olson MD FACR Chest X-Ray 04/27/17 0000 Signed Impressions: Service Date/Time: Thursday, April 27, 2017 02:39 - CONCLUSION: 1. Uncomplicated line placement. No evidence of pneumothorax. Gareth Escalante MD Abdomen X-Ray 04/27/17 Signed Impressions: Service Date/Time: Thursday, April 27, 2017 13:09 - CONCLUSION: 1. The oral contrast material outlines the duodenal C-loop. No abnormal extravasation is identified. Feeding tube is likely within the distal stomach. 2. Persistent abnormally dilated small bowel in the central abdomen. However, it has improved compared to the earlier CT. Lex Malik MD Chest X-Ray 04/26/172140 Signed Impressions: Service Date/Time: Wednesday, April 26, 2017 21:46 - CONCLUSION: 1. There is airspace consolidation in the peripheral left midlung zone. Although nonspecific this could represent an infectious process/pneumonia in the appropriate clinical setting. 2. Mild consolidation versus atelectasis in the right lower lung zone. Lex Malik MD Abdomen/Pelvis CT 04/26/172140 Signed Impressions: Service Date/Time: Thursday, April 27, 2017 00:18 - CONCLUSION: 1. Small bowel dilatation which may reflect ileus or obstruction. Followup examination is recommended if clinically indicated. Gareth Escalante MD PHYSICAL EXAM GENERAL: No acute distress. He is awake, alert and oriented. HEENT: The head is atraumatic, pupils reactive to light. No icterus. Oropharynx, moist mucosa. No lesions. NECK: Supple. No adenopathy. LUNGS: Decreased breath sounds. HEART: Regular S1 and S2. No murmurs, rubs or gallops. ABDOMEN: Bulge is apparent at the lower abdomen in the umbilicus area where the PEG tube exits the abdomen. There is no drainage visible around the PEG tube currently. No erythema. The abdomen is soft. No palpable mass. EXTREMITIES: No clubbing or cyanosis or edema. SKIN: No rash. PSYCHIATRIC: Calm and cooperative. IMPRESSION 1. Sepsis 2. Pneumonia ESBL klebsiella. - HCAP. 3. Abdominal pain and PEG tube malfunction. 4. Leukocytosis secondary to sepsis 5. Aspiration pneumonia in a patient who has been vomiting. 6. Acute renal disease. 7. Candiduria. RECOMMENDATIONS 1. Stop vancomycin. 2. Stop piperacillin/tazobactam. 3. Continue Diflucan. 4. Start Meropenem for ESBL Kleb. 5. Monitor blood cultures. 6. Monitor white blood cell count. 7. Monitor clinical status. Gautam Yanez MD Apr 29, 2017 12:51
[2017-04-29] MEDS: POTASSIUM CHLOR 20 MEQ PREMIX 100 ML IV SCH ×4 (12:57→18:41)
[2017-04-29] MEDS: FLUCONAZOLE 100 MG PREMIX BAG 50 ML IV SCH (12:57)
[2017-04-29 13:01] LABS: SCAN/DIFF AUTO DIFF CONFIRMED
[2017-04-29] MEDS: MEROPENEM INJ 1,000 MG in SODIUM CHLORIDE 0.9% INJ 100 ML IV SCH ×2 (14:15→21:14)
--- NOTE | 2017-04-29 16:07 | HHI.PR ---
cc: Eleazar Banks MD Subjective Subjective Notes ICU DAILY PROGRESS NOTE FOR SURGICAL ATTENDING, DR. ELEAZAR BANKS Up to the chair No more drainage around PEG site Objective Vitals/I&O Vital Signs Date Time Temp Pulse Resp B/P (MAP) Pulse Ox O2 Delivery O2 Flow Rate FiO2 04/29/17 14:00 54 04/29/17 12:00 98.2 22 123/69 (87) 94 04/29/17 08:13 21 04/29/17 07:00 Nasal Cannula 2.00 Labs Laboratory Tests Test 04/29/17 11:30 White Blood Count 8.7 Red Blood Count 2.29 Hemoglobin 7.9 Hematocrit 23.2 Mean Corpuscular Volume 101.6 Mean Corpuscular Hemoglobin 34.5 Mean Corpuscular Hemoglobin Concent 33.9 Red Cell Distribution Width 14.7 Platelet Count 204 Mean Platelet Volume 8.2 Neutrophils (%) (Auto) 84.2 Lymphocytes (%) (Auto) 7.5 Monocytes (%) (Auto) 7.3 Eosinophils (%) (Auto) 0.7 Basophils (%) (Auto) 0.3 Neutrophils # (Auto) 7.3 Lymphocytes # (Auto) 0.7 Monocytes # (Auto) 0.6 Eosinophils # (Auto) 0.1 Basophils # (Auto) 0.0 CBC Comment AUTO DIFF Differential Comment AUTO DIFF CONFIRMED Blood Urea Nitrogen 14 Creatinine 0.73 Random Glucose 121 Calcium Level 8.2 Sodium Level 143 Potassium Level 2.7 Chloride Level 110 Carbon Dioxide Level 24.9 Anion Gap 8 Estimat Glomerular Filtration Rate 106 Date/Time Source Procedure Growth Status 04/26/17 21:50 Blood Peripheral Aerobic Blood Culture - Preliminary NO GROWTH IN 3 DAYS Resulted 04/26/17 21:50 Blood Peripheral Anaerobic Blood Culture - Preliminary NO GROWTH IN 3 DAYS Resulted 04/27/17 15:25 Sputum Expectorated Sputum Gram Stain - Final Resulted 04/27/17 15:25 Sputum Culture - Preliminary Klebsiella Pneumoniae Esbl Pos Pseudomonas Species Resulted 04/26/17 22:35 Urine Clean Catch Urine Culture - Final Ashley Albicans Complete Radiology Last Impressions Chest X-Ray 04/27/17 0000 Signed Impressions: Service Date/Time: Thursday, April 27, 2017 02:39 - CONCLUSION: 1. Uncomplicated line placement. No evidence of pneumothorax. Gareth Escalante MD Abdomen X-Ray 04/27/17 0000 Signed Impressions: Service Date/Time: Thursday, April 27, 2017 13:09 - CONCLUSION: 1. The oral contrast material outlines the duodenal C-loop. No abnormal extravasation is identified. Feeding tube is likely within the distal stomach. 2. Persistent abnormally dilated small bowel in the central abdomen. However, it has improved compared to the earlier CT. Lex Malik MD Abdomen/Pelvis CT 04/26/171 Signed Impressions: Service Date/Time: Thursday, April 27, 2017 00:18 - CONCLUSION: 1. Small bowel dilatation which may reflect ileus or obstruction. Followup examination is recommended if clinically indicated. Gareth Escalante MD Cardiovascular: Regular Lungs: Clear Abdomen: Other (PEG in place; c/d/i ordering) Extremities: No edema A/P Problem List: (1) Klebsiella pneumoniae pneumonia ICD Codes: J15.0 - Pneumonia due to Klebsiella pneumoniae (2) Pseudomonas pneumonia ICD Codes: J15.1 - Pneumonia due to Pseudomonas (3) Hypokalemia ICD Codes: E87.6 - Hypokalemia (4) PEG tube malfunction ICD Codes: K94.23 - Gastrostomy malfunction Status: Chronic (5) PEG (percutaneous endoscopic gastrostomy) status ICD Codes: Z93.1 - Gastrostomy status Status: Chronic (6) Sepsis due to urinary tract infection ICD Codes: A41.9 - Sepsis, unspecified organism; N39.0 - Urinary tract infection, site not specified Status: Acute (7) Ashley UTI ICD Codes: B37.49 - Other urogenital candidiasis Status: Acute (8) Fungemia ICD Codes: B49 - Unspecified mycosis Status: Acute (9) Incisional hernia ICD Codes: K43.2 - Incisional hernia Status: Chronic (10) Bladder outflow obstruction ICD Codes: N32.0 - Bladder-neck obstruction Status: Acute (11) Sepsis ICD Codes: A41.9 - Sepsis, unspecified organism Status: Acute (12) COPD exacerbation ICD Codes: J44.1 - COPD exacerbation Status: Chronic (13) Ashley sepsis ICD Codes: B37.7 - Candidal sepsis Status: Acute (14) Aspiration into airway ICD Codes: T17.908A - Unspecified foreign body in respiratory tract, part unspecified causing other injury, initial encounter Status: Chronic (15) Decubitus ulcer ICD Codes: L89.90 - Pressure ulcer of unspecified site, unspecified stage Status: Chronic Assessment and Plan 72 year old male with sepsis; UTI; gastric content leaking around PEG site -KUB with Gastrografin shows PEG tube in stomach -Improvement with inflated PEG balloon -Speech eval; modified barium swallow shows aspiration; NPO -Continue antibiotics -Wean K -Continue IVF -Monitor WBC/fevers -Start TF -Okay to transfer from standpoint Attending Statement NOTE FOR SURGICAL ATTENDING, DR. ELEAZAR BANKS Patient doing well No more leakage around PEG tube after insufflating the balloon with more water Had a bowel movement Okay to start tube feedings Continue antibiotic therapy per primary team for urosepsis and pneumonia I agree with above assessment and plan. The exam, history, and the medical decision-making described in the above note were completed with the assistance of the mid-level provider. I reviewed and agree with the findings presented. I attest that I had a [id number] encounter with the patient on the same day, and personally performed and documented my assessment and findings in the medical record. The following services were provided during this hospital visit: Chart data review, vital sign assessments/reviewing monitor data Review of consultations notes if present. Medication orders/review and/or management Ordering and/or reviewing lab tests Ordering and/or interpreting/reviewing x-rays and/or diagnostic studies Care of the patient and discussion of the patient with the care team Documentation time To help prompt me to consider important information that might be impacting today's encounter and assessment, information from prior notes written by myself or my colleagues may have been "brought forward/copy and pasted" into today's note. Problem Qualifiers (1) Incisional hernia: Qualified Codes: K43.2 - Incisional hernia without obstruction or gangrene (2) Sepsis: Qualified Codes: B37.7 - Candidal sepsis (3) Aspiration into airway: Qualified Codes: T17.908S - Unspecified foreign body in respiratory tract, part unspecified causing other injury, sequela (4) Decubitus ulcer: Olivia Meza Apr 29, 2017 16:07 Eleazar Banks MD Apr 29, 2017 17:19
[2017-04-29] MEDS: TAMSULOSIN HCL 0.4 MG CAP PO SCH (21:00)
--- NOTE | 2017-04-29 21:16 | HHI.CCPN ---
Subjective Remarks/Hospital Course LATE ENTRY THIS NOTE INTENDED FOR 04/28/2017 72 year old unfortunate male presents with a history of sudden onset( 2 hours ago) of nausea and vomiting 1, then leakage from the area around his PEG tube that appeared to be stool. Ambulance services were called and the patient was noted to have what looked like fecal matter leaking around his PEG tube. The patient reports that he last received a PEG tube feeding early in the morning today. He reportedly was discharged from [facility] earlier today. He was in the rehabilitation for [facility] for about a month. Prior to that he was at [facility] for a ten-month. Dr. Jon Roberts is his surgeon. He was also noticed by EMT to be hypotensive with a blood pressure reportedly of 58/42 that improved to 80/43 with administration of normal saline a 1400 mL IV fluid bolus. The case was discussed by ED attending with general surgeon on-call Dr. Banks who requests to repeat a CT of the abdomen stat and admit patients to critical care services. Subjective: 04/27: Tmax 100.3. Patient complaints of nausea, Zofran provided. Patient remains on norepinephrine to maintain MAP. Chest x-ray shows possible pneumonia right lower lobe empiric antibiotics for coverage. Sputum culture. Patient complains of midabdominal pain and sacral pain from pre-existing sacral ulcer. Ofirmev provided. 04/28:Patient c/o persistent nausea, continues to refuse NGT placement since admission. Patient continues tohave drainage from PEG tube site. Leukocytosis resolving.Wound care recommendations implemented for preexisting Stage 4 decubitus ulcer,. Specialty bed ordered. Nutrition has been consulted regarding tubefeeds per General Surgery. 04/29: Resting in bed comfortably. Not on any pressors since yesterday. Denies any shortness of breath. Objective Vital Signs Date Time Temp Pulse Resp B/P (MAP) Pulse Ox O2 Delivery O2 Flow Rate FiO2 04/29/17 20:08 100 04/29/17 18:00 66 04/29/17 16:00 98.1 20 126/60 (82) 04/29/17 08:13 21 04/29/17 07:00 Nasal Cannula 2.00 Intake and Output 04/29/17 04/29/17 04/30/17 08:00 16:00 00:00 Intake Total 1300 ml 1388 ml Output Total 600 ml Balance 1300 ml 788 ml Result Diagram: 04/29/17 1130 04/29/17 1130 Other Results Microbiology Date/Time Source Procedure Growth Status 04/26/17 22:35 Urine Clean Catch Urine Culture - Final Ashley Albicans Complete Imaging Last 24 hours Impressions Chest X-Ray 04/26/172140 Signed Impressions: Service Date/Time: Wednesday, April 26, 2017 21:46 - CONCLUSION: 1. There is airspace consolidation in the peripheral left midlung zone. Although nonspecific this could represent an infectious process/pneumonia in the appropriate clinical setting. 2. Mild consolidation versus atelectasis in the right lower lung zone. Lex Malik MD Objective Remarks Infusions NS 125cc/hr GENERAL: Well-nourished, well-developed patient in mild distress with complaints of nausea and pain in sacral area from decubitus ulcer, and midabdomen. SKIN: Warm and dry. HEAD: Normocephalic. EYES: No scleral icterus. No injection or drainage. EOMI intact NECK: Supple, trachea midline. No JVD or lymphadenopathy. CARDIOVASCULAR: Regular rate and rhythm without murmurs, gallops, or rubs. RESPIRATORY: Breath sounds equal bilaterally. No accessory muscle use. No wheezing or crackles. GASTROINTESTINAL: Soft, with a central abdominal hernia that is palpated and easily reducible, normal active bowel sounds are audible. The gastrostomy tube is noted in the center of the abdomen, erythema noted around site. No guarding, rebound, or rigidity. Normal bowel sounds are audible. No tenderness on palpation, or rebound tenderness. MUSCULOSKELETAL: No cyanosis, or edema. BACK: No costovertebral angle tenderness to palpation. On examination of the patient's back the patient is noted to have a sacral decubitus ulcer with pink granulation tissue noted at the base that is approximately 5.5 x 6.5 cm most prominent over the sacrum and left buttock. There is some tunneling at the upper aspect of the wound, however no induration. The patient's daughter reports that the wound is improved compared to previously. NEURO EXAM: Awake alert oriented 3, moving all for ex-Mondays, grossly nonfocal. Date of Insertion: Apr 26, 2017 Line: Central Venous Catheter Side: Right Location: Internal, Jugular (vasoactive medication) A/P Assessment and Plan Nausea vomiting Abdominal pain - Ileus versus obstruction per CT - General surgery Dr. Banks aware of the patient being admitted-plan for Gastrografin study - NG tube to LIWS, patient refused - Maintain Nothing by mouth -04/26 CT abdomen-wide umbilical hernia without incarceration - Broad-spectrum antibiotics to cover abdominal sepsis -Ofirmev 1 g every 6 hours 24 hours, patient previously on Lortab on hold for now -Zofran every 4 hours when necessary Leukocytosis -Chest x-ray, CT scan-possible pneumonia process, right lower lobe - Monitor CBC ,WBC 32->26 today, resolution of bandemia -Obtain sputum culture -- Panculture F/U results - continue vancomycin and Zosyn and micafungin (day 3) Hypotension Dehydration Sepsis - Broad-spectrum antibiotics - Infectious disease consultation, F/U recommendations - s/p aggressive IV fluid resuscitation, Patient received 4 L bolus normal saline since admission, currently normal saline at 125 cc an hour - IVF Changed to D5 1/2 NS on 04/28 -Creatinine improving -Off pressors COPD Pulmonary fibrosis Centrilobular emphysema - O2 dependent -Continue Symbicort twice a day - DuoNeb scheduled and when necessary - Hold steroids Bladder outlet obstruction - Flomax -Maintain Hammond catheter -Strict I&O's Hyperlipidemia DM - Resume statins when ileus/obstruction resolves -Glucose monitoring, low dose regimen -Obtain hemoglobin A1c Sacral decubitus - Wound Care consult F/U recommendation DVT GI prophylaxis - Teds SCDs - Subcutaneous heparin - IV pantoprazole Level 3 Physician Marcelina Correia MD Apr 29, 2017 21:16
[2017-04-29] MEDS ORDERED: PHARMACY ORDERED LAB ONE (22:45)
[2017-04-30] VITALS (14 sets, daily range): BP systolic 117–140; BP diastolic 61–76; PULSE 62–92; RESP 17–22; TEMP 98.3–98.9; O2SAT 93–100
[2017-04-30] MEDS: HYDROmorphone HCL PF 0.5 MG/0.5 ML SYRINGE IV PUSH PRN ×6 (01:37→22:54)
[2017-04-30] MEDS: RESP: ALBUTEROL 2.5 MG/IPRATROPIUM 0.5 MG NEB (SCH) INH ×4 (03:29→19:58)
[2017-04-30] MEDS: CHLORHEXIDINE GLUCONATE 2 % 1 PACK (2 CLOTHS) TOP SCH (04:00)
[2017-04-30] MEDS: HEPARIN SODIUM - SQ 10,000 UNITS/ML VIAL SQ SCH ×3 (05:26→22:27)
[2017-04-30] MEDS: MEROPENEM INJ 1,000 MG in SODIUM CHLORIDE 0.9% INJ 100 ML IV SCH ×3 (05:26→22:26)
[2017-04-30] MEDS: METOCLOPRAMIDE HCL 10 MG/2 ML VIAL IV PUSH SCH ×3 (05:27→22:26)
[2017-04-30] MEDS: SODIUM CHLOR 0.9% 1000 ML INJ 1,000 ML IV SCH ×2 (07:00→13:41)
[2017-04-30] MEDS: DEXT 5%-NACL 0.45% 1000 ML INJ 1,000 ML IV SCH ×2 (07:42→16:15)
[2017-04-30] MEDS: INSULIN ASPART SUPPLEMENTAL SCALE SQ SCH ×4 (08:00→21:00)
[2017-04-30] MEDS: VITAMINS A & D OINT 60 GM TUBE TOPICAL SCH ×2 (08:21→21:45)
[2017-04-30] MEDS: PANTOPRAZOLE SODIUM 40 MG VIAL IV PUSH SCH (08:21)
[2017-04-30] MEDS: BUDESONIDE-FORMOTEROL 160/4.5 MCG INHALER INH SCH ×2 (08:21→23:00)
[2017-04-30] MEDS: SODIUM CHLORIDE 0.9% FLUSH 10 ML FLUSH IV FLUSH SCH ×2 (08:21→22:27)
[2017-04-30] MEDS: POTASSIUM CHLOR 40 MEQ PREMIX 100 ML IV SCH ×2 (09:41→13:15)
--- NOTE | 2017-04-30 11:18 | HHI.IDPN ---
Note Infectious Disease Note Patient says he is coughing up less sputum. Awake, alert. Afebrile. Denies SOB. Sputum culture has Klebsiella ESBL. Admitted with nausea, vomiting and abdominal pain. The patient was noted to have leakage of fecal matter around his PEG tube. He was evaluated in the emergency department yesterday and was noted to have hypotension with a blood pressure of 60/40 and a white count of 32.1 along with a left shift including 33% bands. The patient has been fed via the PEG tube. PAST MEDICAL HISTORY 1. Hypertension 2. Hyperlipidemia 3. COPD 4. Prostate cancer 5. Ventral hernia 6. Appendectomy 7. Perforated gastric ulcer repair 8. PEG tube placement. ALLERGIES NO KNOWN DRUG ALLERGIES. MEDICATIONS 1. Meropenem. 2. Diflucan SOCIAL HISTORY No tobacco, no alcohol, no illicit drugs. OBJECTIVE: Vital Signs Date Time Temp Pulse Resp B/P (MAP) Pulse Ox O2 Delivery O2 Flow Rate FiO2 04/29/17 12:00 65 04/29/17 10:00 68 04/29/17 08:13 97 21 04/29/17 08:00 98.1 68 24 110/60 (77) 94 04/29/17 08:00 68 04/29/17 07:00 95 Nasal Cannula 2.00 04/29/17 04:00 74 04/29/17 04:00 98.3 74 22 110/59 (76) 100 04/29/17 02:00 68 04/29/17 00:00 66 04/29/17 00:00 98.3 66 17 140/66 (90) 100 04/28/17 22:00 67 04/28/17 20:00 92 04/28/17 20:00 98.1 92 24 133/64 (87) 96 04/28/17 19:48 97 Nasal Cannula 1.00 04/28/17 19:00 96 Nasal Cannula 2.00 04/28/17 18:00 68 04/28/17 16:00 98.2 67 22 137/72 (93) 96 04/28/17 16:00 81 04/28/17 14:00 70 Laboratory Tests Test 04/28/17 04:15 04/29/17 11:30 White Blood Count 19.5 TH/MM3 8.7 TH/MM3 Red Blood Count 2.41 MIL/MM3 2.29 MIL/MM3 Hemoglobin 8.1 GM/DL 7.9 GM/DL Hematocrit 24.6 % 23.2 % Mean Corpuscular Volume 101.8 FL 101.6 FL Mean Corpuscular Hemoglobin 33.5 PG 34.5 PG Mean Corpuscular Hemoglobin Concent 32.9 % 33.9 % Red Cell Distribution Width 15.1 % 14.7 % Platelet Count 240 TH/MM3 204 TH/MM3 Mean Platelet Volume 8.2 FL 8.2 FL Neutrophils (%) (Auto) 87.2 % 84.2 % Lymphocytes (%) (Auto) 6.0 % 7.5 % Monocytes (%) (Auto) 6.2 % 7.3 % Eosinophils (%) (Auto) 0.3 % 0.7 % Basophils (%) (Auto) 0.3 % 0.3 % Neutrophils # (Auto) 17.0 TH/MM3 7.3 TH/MM3 Lymphocytes # (Auto) 1.2 TH/MM3 0.7 TH/MM3 Monocytes # (Auto) 1.2 TH/MM3 0.6 TH/MM3 Eosinophils # (Auto) 0.1 TH/MM3 0.1 TH/MM3 Basophils # (Auto) 0.1 TH/MM3 0.0 TH/MM3 CBC Comment DIFF FINAL AUTO DIFF Differential Comment Laboratory Tests Test 04/28/17 04:15 04/29/17 11:30 Blood Urea Nitrogen 31 MG/DL 14 MG/DL Creatinine 0.94 MG/DL 0.73 MG/DL Random Glucose 96 MG/DL 121 MG/DL Calcium Level 8.4 MG/DL 8.2 MG/DL Phosphorus Level 2.0 MG/DL Magnesium Level 1.7 MG/DL Sodium Level 142 MEQ/L 143 MEQ/L Potassium Level 3.6 MEQ/L 2.7 MEQ/L Chloride Level 108 MEQ/L 110 MEQ/L Carbon Dioxide Level 24.3 MEQ/L 24.9 MEQ/L Anion Gap 10 MEQ/L 8 MEQ/L Estimat Glomerular Filtration Rate 79 ML/MIN 106 ML/MIN Microbiology Date/Time Source Procedure Growth Status 04/26/17 21:50 Blood Peripheral Aerobic Blood Culture - Preliminary NO GROWTH IN 3 DAYS Resulted 04/26/17 21:50 Blood Peripheral Anaerobic Blood Culture - Preliminary NO GROWTH IN 3 DAYS Resulted 04/26/17 21:45 Blood Peripheral Aerobic Blood Culture - Preliminary NO GROWTH IN 3 DAYS Resulted 04/26/17 21:45 Blood Peripheral Anaerobic Blood Culture - Preliminary NO GROWTH IN 3 DAYS Resulted 04/27/17 15:25 Sputum Expectorated Sputum Gram Stain - Final Resulted 04/27/17 15:25 Sputum Culture - Preliminary Klebsiella Pneumoniae Esbl Pos Pseudomonas Species Resulted 04/26/17 22:35 Urine Clean Catch Urine Culture - Final Ashley Albicans Complete IMAGING: Modified Barium Swallow 04/28/17 0000 Signed Impressions: Service Date/Time: Friday, April 28, 2017 13:22 - CONCLUSION: Please see consultation from speech pathology. Bear Olson MD FACR Chest X-Ray 04/27/17 0000 Signed Impressions: Service Date/Time: Thursday, April 27, 2017 02:39 - CONCLUSION: 1. Uncomplicated line placement. No evidence of pneumothorax. Gareth Escalante MD Abdomen X-Ray 04/27/17 Signed Impressions: Service Date/Time: Thursday, April 27, 2017 13:09 - CONCLUSION: 1. The oral contrast material outlines the duodenal C-loop. No abnormal extravasation is identified. Feeding tube is likely within the distal stomach. 2. Persistent abnormally dilated small bowel in the central abdomen. However, it has improved compared to the earlier CT. Lex Malik MD Chest X-Ray 04/26/172140 Signed Impressions: Service Date/Time: Wednesday, April 26, 2017 21:46 - CONCLUSION: 1. There is airspace consolidation in the peripheral left midlung zone. Although nonspecific this could represent an infectious process/pneumonia in the appropriate clinical setting. 2. Mild consolidation versus atelectasis in the right lower lung zone. Lex Malik MD Abdomen/Pelvis CT 04/26/172140 Signed Impressions: Service Date/Time: Thursday, April 27, 2017 00:18 - CONCLUSION: 1. Small bowel dilatation which may reflect ileus or obstruction. Followup examination is recommended if clinically indicated. Gareth Escalante MD PHYSICAL EXAM GENERAL: No acute distress. Awake, alert and oriented. HEENT: The head is atraumatic, pupils reactive to light. No icterus. Oropharynx, moist mucosa. No lesions. NECK: Supple. No adenopathy. LUNGS: Decreased breath sounds. HEART: Regular S1 and S2. No murmurs, rubs or gallops. ABDOMEN: Bulge is apparent at the lower abdomen in the umbilicus area where the PEG tube exits the abdomen. No drainage visible around the PEG tube currently. No erythema. The abdomen is soft. No palpable mass. EXTREMITIES: No clubbing or cyanosis or edema. SKIN: No rash. PSYCHIATRIC: Calm and cooperative. IMPRESSION 1. Sepsis 2. Pneumonia ESBL klebsiella. - HCAP. 3. Abdominal pain and PEG tube malfunction. 4. Leukocytosis secondary to sepsis 5. Aspiration pneumonia in a patient who has been vomiting. 6. Acute renal disease. 7. Candiduria. RECOMMENDATIONS 1. Continue Meropenem for ESBL Kleb. 2. Continue Diflucan. 3. Monitor white blood cell count. 4. Monitor clinical status. Gautam Yanez MD Apr 30, 2017 11:17
[2017-04-30] MEDS: FLUCONAZOLE 100 MG PREMIX BAG 50 ML IV SCH (13:15)
--- NOTE | 2017-04-30 13:23 | HHI.PR ---
cc: Eleazar Banks MD Subjective Subjective Notes ICU DAILY PROGRESS NOTE FOR SURGICAL ATTENDING, DR. ELEAZAR BANKS Resting in bed Wondering how long it will take to recover from recently pneumonia Objective Vitals/I&O Vital Signs Date Time Temp Pulse Resp B/P (MAP) Pulse Ox O2 Delivery O2 Flow Rate FiO2 04/30/17 12:00 77 04/30/17 09:12 96 04/30/17 08:00 98.3 20 04/30/17 07:00 Room Air 04/30/17 04:00 131/70 (90) 04/29/17 19:00 2.00 04/29/17 08:13 21 Labs Laboratory Tests Test 04/30/17 05:45 Potassium Level 3.0 Date/Time Source Procedure Growth Status 04/26/17 21:50 Blood Peripheral Aerobic Blood Culture - Preliminary NO GROWTH IN 4 DAYS Resulted 04/26/17 21:50 Blood Peripheral Anaerobic Blood Culture - Preliminary NO GROWTH IN 4 DAYS Resulted 04/27/17 15:25 Sputum Expectorated Sputum Gram Stain - Final Resulted 04/27/17 15:25 Sputum Culture - Preliminary Klebsiella Pneumoniae Esbl Pos Pseudomonas Aeruginosa Resulted 04/26/17 22:35 Urine Clean Catch Urine Culture - Final Ashley Albicans Complete Radiology Last Impressions Chest X-Ray 04/27/17 0000 Signed Impressions: Service Date/Time: Thursday, April 27, 2017 02:39 - CONCLUSION: 1. Uncomplicated line placement. No evidence of pneumothorax. Gareth Escalante MD Abdomen X-Ray 04/27/17 0000 Signed Impressions: Service Date/Time: Thursday, April 27, 2017 13:09 - CONCLUSION: 1. The oral contrast material outlines the duodenal C-loop. No abnormal extravasation is identified. Feeding tube is likely within the distal stomach. 2. Persistent abnormally dilated small bowel in the central abdomen. However, it has improved compared to the earlier CT. Lex Malik MD Abdomen/Pelvis CT 04/26/172140 Signed Impressions: Service Date/Time: Thursday, April 27, 2017 00:18 - CONCLUSION: 1. Small bowel dilatation which may reflect ileus or obstruction. Followup examination is recommended if clinically indicated. Gareth Escalante MD Cardiovascular: Regular Lungs: Clear Abdomen: Non-distended, Other (large ventral hernia; PEG in place without drainage ) Extremities: No edema A/P Problem List: (1) Klebsiella pneumoniae pneumonia ICD Codes: J15.0 - Pneumonia due to Klebsiella pneumoniae (2) Pseudomonas pneumonia ICD Codes: J15.1 - Pneumonia due to Pseudomonas Status: Acute (3) Hypokalemia ICD Codes: E87.6 - Hypokalemia Status: Acute (4) PEG tube malfunction ICD Codes: K94.23 - Gastrostomy malfunction Status: Chronic (5) PEG (percutaneous endoscopic gastrostomy) status ICD Codes: Z93.1 - Gastrostomy status Status: Chronic (6) Sepsis due to urinary tract infection ICD Codes: A41.9 - Sepsis, unspecified organism; N39.0 - Urinary tract infection, site not specified Status: Acute (7) Ashley UTI ICD Codes: B37.49 - Other urogenital candidiasis Status: Acute (8) Fungemia ICD Codes: B49 - Unspecified mycosis Status: Acute (9) Incisional hernia ICD Codes: K43.2 - Incisional hernia Status: Chronic (10) Bladder outflow obstruction ICD Codes: N32.0 - Bladder-neck obstruction Status: Acute (11) Sepsis ICD Codes: A41.9 - Sepsis, unspecified organism Status: Acute (12) COPD exacerbation ICD Codes: J44.1 - COPD exacerbation Status: Chronic (13) Ashley sepsis ICD Codes: B37.7 - Candidal sepsis Status: Acute (14) Aspiration into airway ICD Codes: T17.908A - Unspecified foreign body in respiratory tract, part unspecified causing other injury, initial encounter Status: Chronic (15) Decubitus ulcer ICD Codes: L89.90 - Pressure ulcer of unspecified site, unspecified stage Status: Chronic Assessment and Plan 72 year old male with sepsis; UTI; gastric content leaking around PEG site -KUB with Gastrografin shows PEG tube in stomach -Improvement with inflated PEG balloon -Speech eval; modified barium swallow shows aspiration; NPO -Increase TF to a goal of 45 cc/hr -Continue antibiotics -Continue IVF -Monitor WBC/fevers -Okay to transfer from GS standpoint Attending Statement NOTE FOR SURGICAL ATTENDING, DR. ELEAZAR BANKS Tolerating tube feeds No more leakage around G-tube Being treated for urosepsis and pneumonia Advanced tube feeds as tolerated Consider speech therapy to work with the patient about swallowing I agree with above assessment and plan. The exam, history, and the medical decision-making described in the above note were completed with the assistance of the mid-level provider. I reviewed and agree with the findings presented. I attest that I had a [id number] encounter with the patient on the same day, and personally performed and documented my assessment and findings in the medical record. The following services were provided during this hospital visit: Chart data review, vital sign assessments/reviewing monitor data Review of consultations notes if present. Medication orders/review and/or management Ordering and/or reviewing lab tests Ordering and/or interpreting/reviewing x-rays and/or diagnostic studies Care of the patient and discussion of the patient with the care team Documentation time To help prompt me to consider important information that might be impacting today's encounter and assessment, information from prior notes written by myself or my colleagues may have been "brought forward/copy and pasted" into today's note. Problem Qualifiers (1) Incisional hernia: Qualified Codes: K43.2 - Incisional hernia without obstruction or gangrene (2) Sepsis: Qualified Codes: B37.7 - Candidal sepsis (3) Aspiration into airway: Qualified Codes: T17.908S - Unspecified foreign body in respiratory tract, part unspecified causing other injury, sequela (4) Decubitus ulcer: Olivia Meza Apr 30, 2017 13:23 Eleazar Banks MD Apr 30, 2017 13:55
[2017-04-30] MEDS: FREE WATER G-TUBE SCH (18:00)
--- NOTE | 2017-04-30 18:03 | HHI.PR ---
Subjective Remarks Follow-up visit sepsis PNA- HCAP, ileus versus obstruction, COPD, PEG tube/ dysphagia. Patient seen and examined today. Reports he is doing a lot better. Denies any chest pain on exam, palpitations, headaches, dizziness. Denies any fevers reports occasional chills. Denies any nausea, vomiting, diarrhea. Reports he had a bowel movement today. Complaints of abdominal bloating secondary to nurses have been flushing his PEG tube. Denies any shortness of breath, dyspnea. Patient cried states that he is getting frustrated with what is happening with him. States that he just got out of rehabilitation and was back again at the hospital. He has prolonged hospitalization during his prior admission secondary to ventral hernia and infection in the abdomen. States he wants to go home to celebrate Thanksgiving. Reassurance provided. As per nursing, patient had a "PEG tube that they have been working for today. PEG tube is now working they will restart his tube feeds. Objective Vitals Vital Signs Date Time Temp Pulse Resp B/P (MAP) Pulse Ox O2 Delivery O2 Flow Rate FiO2 04/30/17 16:00 98.9 66 21 127/76 (93) 95 04/30/17 16:00 78 04/30/17 14:00 62 04/30/17 12:00 77 04/30/17 12:00 98.9 77 21 140/75 (96) 93 04/30/17 10:00 74 04/30/17 09:12 96 04/30/17 08:00 71 04/30/17 08:00 98.3 71 20 95 04/30/17 07:00 100 Room Air 04/30/17 06:00 75 04/30/17 04:00 98.7 70 22 131/70 (90) 98 04/30/17 04:00 75 04/30/17 02:07 20 04/30/17 02:00 70 04/30/17 00:00 63 04/30/17 00:00 98.9 65 21 122/61 (81) 99 04/29/17 22:00 70 04/29/17 20:08 100 04/29/17 20:00 98.6 70 21 119/64 (82) 99 04/29/17 20:00 82 04/29/17 19:00 96 Nasal Cannula 2.00 04/29/17 18:00 66 I/O 04/29/17 04/29/17 04/29/17 04/30/17 04/30/17 04/30/17 07:00 15:00 23:00 07:00 15:00 23:00 Intake Total 1300 ml 2488 ml 310 ml Output Total 600 ml 1100 ml Balance 1300 ml 1888 ml -790 ml Intake Oral 0 ml 0 ml IV Total 1300 ml 2488 ml Tube Feeding 110 ml Other 200 ml Output Urine Total 600 ml 1100 ml # Bowel Movements 1 0 Result Diagram: 04/29/17 1130 04/30/17 0545 Imaging Last Impressions Modified Barium Swallow 04/28/17 0000 Signed Impressions: Service Date/Time: Friday, April 28, 2017 13:22 - CONCLUSION: Please see consultation from speech pathology. Bear Olson MD FACR Chest X-Ray 04/27/17 0000 Signed Impressions: Service Date/Time: Thursday, April 27, 2017 02:39 - CONCLUSION: 1. Uncomplicated line placement. No evidence of pneumothorax. Gareth Escalante MD Abdomen X-Ray 04/27/17 0000 Signed Impressions: Service Date/Time: Thursday, April 27, 2017 13:09 - CONCLUSION: 1. The oral contrast material outlines the duodenal C-loop. No abnormal extravasation is identified. Feeding tube is likely within the distal stomach. 2. Persistent abnormally dilated small bowel in the central abdomen. However, it has improved compared to the earlier CT. Lex Malik MD Abdomen/Pelvis CT 04/26/17 2141 Signed Impressions: Service Date/Time: Thursday, April 27, 2017 00:18 - CONCLUSION: 1. Small bowel dilatation which may reflect ileus or obstruction. Followup examination is recommended if clinically indicated. Gareth Escalante MD Objective Remarks GENERAL: This is a thin appearing, well-developed patient, in no apparent distress. SKIN: Warm and dry. HEENT: Normocephalic. Pupils equal round and reactive. Nose without bleeding. Airway patent. NECK: Trachea midline. Supple. CARDIOVASCULAR: Regular rate and rhythm without murmurs, gallops, or rubs. RESPIRATORY: Diminished bases. No wheezes, rales, or rhonchi. GASTROINTESTINAL: Abdomen soft, non-tender, nondistended. Bowel Sounds normoactive. PEG in place clamped. : Hammond catheter draining yellow urine. MUSCULOSKELETAL: Extremities without clubbing, cyanosis. Bilateral lower extremity trace edema. NEUROLOGICAL: Awake and alert. Oriented to place, person. No focal neuro deficit. Moves all extremities. Normal speech. Date of Insertion: Apr 26, 2017 Line: Central Venous Catheter Side: Right Location: Internal, Jugular (vasoactive medication) A/P Problem List: (1) PEG (percutaneous endoscopic gastrostomy) status ICD Code: Z93.1 - Gastrostomy status Status: Chronic (2) Pseudomonas pneumonia ICD Code: J15.1 - Pneumonia due to Pseudomonas Status: Acute (3) Hypokalemia ICD Code: E87.6 - Hypokalemia Status: Acute (4) Ashley sepsis ICD Code: B37.7 - Candidal sepsis Status: Acute (5) Sepsis due to urinary tract infection ICD Code: A41.9 - Sepsis, unspecified organism; N39.0 - Urinary tract infection , site not specified Status: Acute (6) PEG tube malfunction ICD Code: K94.23 - Gastrostomy malfunction Status: Acute (7) Bladder outflow obstruction ICD Code: N32.0 - Bladder-neck obstruction Status: Acute Assessment and Plan Patient is a 72-year-old male with a history of sepsis, HTN, COPD, prostate cancer, bladder outlet obstruction, ventral hernia with mesh placement who came into the hospital with a sudden onset of nausea and vomiting, leaking stool surrounding his PEG tube. Ileus vs Obstruction Abdominal Pain, nausea, vomiting - CT of the abdomen and pelvis showed 1. Small bowel dilatation which may reflect ileus or obstruction. Follow-up examination is recommended if clinically indicated - General surgery has been following the patient - Abdominal x-ray showed 1. Oral contrast material supplies the duodenal C- loop no extravasation was identified. Feeding tube is likely within the distal stomach. 2. Persistent abnormally dilated small bowel in the central abdomen. However has improved compared to the earlier CT. - Continue with tube feeds with a goal of 45 cc an hour, will water flushes to keep it from clogging - Continue Reglan, IV fluids for hydration, continue Zofran Sepsis, pneumonia HCAP secondary to Klebsiella ESBL - Patient with hypotension, dehydration wherein he was treated with aggressive IV fluid resuscitation including pressors. Has been off pressors since 04/28/17 - Chest x-ray showed 1. There is an air space consolidation in the peripheral left mid lung zone. Although nonspecific this could represent an infectious process/pneumonia and appropriate clinical setting. 2. Mild consolidation versus atelectasis in the right lower lung zone - Sputum culture has Klebsiella ESBL - Continue meropenem for ESBL lab, continue Diflucan - Continue O2 nasal cannula PRN, DuoNeb's - Monitor respiratory status. - Leukocytosis has improved Dysphagia, PEG tube placement - Modified barium swallow noted aspiration. Continue to keep patient nothing by mouth - Speech therapy continue with treatment - Monitor for aspiration COPD, chronic Pulmonary fibrosis - Continue with Symbicort twice a day - Continue with DuoNeb scheduled and when necessary - Monitor respiratory status Bladder outlet obstruction - Continue Flomax - Hammond catheter in place, continues to maintain - If patient is able to increased activity may need to try bladder training. May consider urology consult. Hyperlipidemia - Resume statin when ileus/obstruction resolves Hypokalemia - Potassium replacements - Check Mag and Phos DVT prop heparin 5000 every 8 hours subcutaneous GI prop PPI Discuss plan with patient, nursing, Dr. Hurtado Discharge Planning Plan to DC home with [facility] when clinically improved, cleared by general surgery, and ID. Art Riggs Apr 30, 2017 18:03
[2017-04-30] MEDS ORDERED: POTASSIUM CHLORIDE 25 MEQ EFFERVESCENT TAB PO ONE (18:15)
[2017-04-30] MEDS: TAMSULOSIN HCL 0.4 MG CAP PO SCH (22:27)
[2017-05-01] VITALS (12 sets, daily range): BP systolic 117–133; BP diastolic 67–76; PULSE 67–86; RESP 16–22; TEMP 97.7–98.8; O2SAT 95–98
[2017-05-01] MEDS: FREE WATER G-TUBE SCH ×4 (00:15→17:28)
[2017-05-01] MEDS: DEXT 5%-NACL 0.45% 1000 ML INJ 1,000 ML IV SCH ×4 (02:42→21:30)
[2017-05-01] MEDS: HYDROmorphone HCL PF 0.5 MG/0.5 ML SYRINGE IV PUSH PRN ×5 (02:42→21:19)
[2017-05-01] MEDS: CHLORHEXIDINE GLUCONATE 2 % 1 PACK (2 CLOTHS) TOP SCH (04:00)
[2017-05-01] MEDS: METOCLOPRAMIDE HCL 10 MG/2 ML VIAL IV PUSH SCH ×3 (05:38→21:16)
[2017-05-01] MEDS: HEPARIN SODIUM - SQ 10,000 UNITS/ML VIAL SQ SCH ×3 (05:40→21:26)
[2017-05-01] MEDS: MEROPENEM INJ 1,000 MG in SODIUM CHLORIDE 0.9% INJ 100 ML IV SCH ×3 (06:49→21:20)
[2017-05-01 07:38] LABS: HEMATOCRIT 23.2 % (39.0-51.0); MEAN CELL VOLUME 99.7 FL (80.0-100.0); MEAN CORPUSCULAR HEMOGLOBIN 33.7 PG (27.0-34.0); MEAN CORPUSCULAR HGB CONC 33.8 % (32.0-36.0); PLATELET COUNT 193 TH/MM3 (150-450); RED BLOOD COUNT 2.32 MIL/MM3 (4.50-5.90); RED CELL DISTRIBUTION WIDTH 14.1 % (11.6-17.2); REVIEW FLAG FINAL; WHITE BLOOD COUNT 8.4 TH/MM3 (4.0-11.0)
[2017-05-01 07:54] LABS: BICARBONATE 24.4 MEQ/L (21.0-32.0); MAGNESIUM 1.1 MG/DL (1.5-2.5); POTASSIUM 3.3 MEQ/L (3.5-5.1)
[2017-05-01] MEDS: INSULIN ASPART SUPPLEMENTAL SCALE SQ SCH ×4 (08:00→21:00)
[2017-05-01] MEDS: BUDESONIDE-FORMOTEROL 160/4.5 MCG INHALER INH SCH ×2 (10:17→21:13)
[2017-05-01] MEDS: PANTOPRAZOLE SODIUM 40 MG VIAL IV PUSH SCH (10:18)
[2017-05-01] MEDS: SODIUM CHLORIDE 0.9% FLUSH 10 ML FLUSH IV FLUSH SCH ×2 (10:18→21:00)
[2017-05-01] MEDS: VITAMINS A & D OINT 60 GM TUBE TOPICAL SCH (10:18)
--- NOTE | 2017-05-01 12:31 | HHI.PR ---
Subjective Remarks The patient was resting in bed comfortably. He said everything was going well. He had no acute complaints. He has been having bowel movements. He has been breathing comfortably. Objective Vitals Vital Signs Date Time Temp Pulse Resp B/P (MAP) Pulse Ox O2 Delivery O2 Flow Rate FiO2 05/01/17 12:00 97.9 82 21 120/68 (85) 96 05/01/17 08:00 98.2 83 21 117/71 (86) 95 05/01/17 07:37 97 05/01/17 05:45 97.7 67 22 120/67 (84) 97 05/01/17 04:10 Room Air 05/01/17 02:45 75 05/01/17 01:30 98.1 77 19 124/71 (88) 96 05/01/17 00:00 98.8 86 16 98 05/01/17 00:00 86 04/30/17 22:00 70 04/30/17 20:00 100 Room Air 04/30/17 20:00 98.6 92 17 117/64 (81) 100 04/30/17 20:00 92 04/30/17 19:58 96 04/30/17 18:00 76 04/30/17 16:00 98.9 66 21 127/76 (93) 95 04/30/17 16:00 78 04/30/17 14:00 62 I/O 04/30/17 04/30/17 04/30/17 05/01/17 05/01/17 05/01/17 07:00 15:00 23:00 07:00 15:00 23:00 Intake Total 310 ml 370 ml 1808 ml Output Total 1100 ml 800 ml 1600 ml Balance -790 ml -430 ml 208 ml Intake Oral 0 ml 0 ml 0 ml IV Total 1622 ml Tube Feeding 110 ml 70 ml Other 200 ml 300 ml 186 ml Output Urine Total 1100 ml 800 ml 1600 ml # Bowel Movements 0 0 0 Result Diagram: 05/01/1745 05/01/1745 Imaging Last Impressions Modified Barium Swallow 04/28/17 0000 Signed Impressions: Service Date/Time: Friday, April 28, 2017 13:22 - CONCLUSION: Please see consultation from speech pathology. Bear Olson MD FACR Chest X-Ray 04/27/17 0000 Signed Impressions: Service Date/Time: Thursday, April 27, 2017 02:39 - CONCLUSION: 1. Uncomplicated line placement. No evidence of pneumothorax. Gareth Escalante MD Abdomen X-Ray 04/27/17 0000 Signed Impressions: Service Date/Time: Thursday, April 27, 2017 13:09 - CONCLUSION: 1. The oral contrast material outlines the duodenal C-loop. No abnormal extravasation is identified. Feeding tube is likely within the distal stomach. 2. Persistent abnormally dilated small bowel in the central abdomen. However, it has improved compared to the earlier CT. Lex Malik MD Abdomen/Pelvis CT 04/26/17 2141 Signed Impressions: Service Date/Time: Thursday, April 27, 2017 00:18 - CONCLUSION: 1. Small bowel dilatation which may reflect ileus or obstruction. Followup examination is recommended if clinically indicated. Gareth Escalante MD Objective Remarks GENERAL: This is a thin appearing, well-developed patient, in no apparent distress. SKIN: Warm and dry. HEENT: Normocephalic. Pupils equal round and reactive. Nose without bleeding. Airway patent. NECK: Trachea midline. Supple. CARDIOVASCULAR: Regular rate and rhythm without murmurs, gallops, or rubs. RESPIRATORY: Diminished bases. No wheezes, rales, or rhonchi. GASTROINTESTINAL: Abdomen soft, non-tender, nondistended. Decreased bowel sounds normoactive. PEG in place. : Hammond catheter draining yellow urine. MUSCULOSKELETAL: Extremities without clubbing, cyanosis. Bilateral lower extremity trace edema. NEUROLOGICAL: Awake and alert. Oriented to place, person. No focal neuro deficit. Moves all extremities. Normal speech. PSYCH: Mood and affect appreciated. Medications and IVs Current Medications Medications (Trade) Dose Ordered Sig/Tee Route Start Time Stop Time Status Last Admin (Symbicort 160-4.5 Inh) 2 puff BID INH 04/27/17 09:00 05/01/17 10:17 (Flomax) 0.4 mg HS PO 04/27/17 21:00 04/30/17 22:27 (Desyrel) 75 mg HS PRN PO 04/26/17 23:00 (Pill Splitter) 1 ea UNSCH PRN OTHER 04/26/17 23:15 (NS Flush) 2 ml UNSCH PRN IV FLUSH 04/26/17 23:00 (NS Flush) 2 ml BID IV FLUSH 04/27/17 09:00 05/01/17 10:18 (Protonix Inj) 40 mg DAILY IV PUSH 04/27/17 09:00 05/01/17 10:18 (Duoneb Neb) 1 ampule Q2HR NEB PRN NEB 04/26/17 23:15 (Heparin Inj) 5,000 units Q8HR SQ 04/27/17 06:00 05/01/17 05:40 Miscellaneous Information 1 Q361D XX 04/26/17 23:00 (Chlorhexidine 2% Cloth) 3 pack Taper DAILY@04 TOP 04/27/17 04:00 04/23/18 03:59 (Chlorhexidine 2% Cloth) 3 pack UNSCH PRN TOP 04/26/17 23:00 (Zofran Inj) 4 mg Q4H PRN IV PUSH 04/27/17 02:45 04/28/17 08:23 Norepinephrine Bitartrate 250 ml @ 7.5 mls/hr TITRATE PRN IV 04/27/17 05:30 04/28/17 01:33 (D50w (Vial) Inj) 50 ml UNSCH PRN IV PUSH 04/27/17 09:30 (Glucagon Inj) 1 mg UNSCH PRN OTHER 04/27/17 09:30 (NovoLOG SUPPLEMENTAL SCALE) 1 ACHS SLIDING SCALE SQ 04/27/17 12:00 (Reglan Inj) 5 mg Q8HR IV PUSH 04/28/17 14:00 05/01/17 05:38 (Dilaudid Pf Inj) 0.5 mg Q4H PRN IV PUSH 04/28/17 09:30 05/01/17 11:21 Fluconazole/ Sodium Chloride 50 ml @ 50 mls/hr Q24H IV 04/28/17 13:00 04/30/17 13:15 Dextrose/Sodium Chloride 1,000 ml @ 125 mls/hr Q8H IV 04/28/17 16:15 05/01/17 11:21 Meropenem 1000 mg/ Sodium Chloride 100 ml @ 200 mls/hr Q8H IV 04/29/17 14:00 05/01/17 06:49 (Free Water) VOLUME OF WATER: ( 100 ) ML Q6HR G-TUBE 04/30/17 18:00 05/01/17 11:22 Date of Insertion: Apr 26, 2017 Line: Central Venous Catheter Side: Right Location: Internal, Jugular (vasoactive medication) A/P Problem List: (1) PEG (percutaneous endoscopic gastrostomy) status ICD Code: Z93.1 - Gastrostomy status Status: Chronic (2) Pseudomonas pneumonia ICD Code: J15.1 - Pneumonia due to Pseudomonas Status: Acute (3) Hypokalemia ICD Code: E87.6 - Hypokalemia Status: Acute (4) Ashley sepsis ICD Code: B37.7 - Candidal sepsis Status: Acute (5) Sepsis due to urinary tract infection ICD Code: A41.9 - Sepsis, unspecified organism; N39.0 - Urinary tract infection , site not specified Status: Acute (6) PEG tube malfunction ICD Code: K94.23 - Gastrostomy malfunction Status: Acute (7) Bladder outflow obstruction ICD Code: N32.0 - Bladder-neck obstruction Status: Acute Assessment and Plan Patient is a 72-year-old male with a history of sepsis, HTN, COPD, prostate cancer, bladder outlet obstruction, ventral hernia with mesh placement who came into the hospital with a sudden onset of nausea and vomiting and was leaking stool surrounding his PEG tube. Ileus vs Obstruction Abdominal Pain, nausea, vomiting CT of the abdomen and pelvis showed 1. Small bowel dilatation which may reflect ileus or obstruction. General surgery has been following the patient. Abdominal x-ray showed: Oral contrast material supplies the duodenal C-loop, no extravasation was identified. Feeding tube is likely within the distal stomach ; Persistent abnormally dilated small bowel in the central abdomen; However has improved compared to the earlier CT. - Continue with tube feeds with a goal of 45 cc an hour, will water flushes to keep it from clogging - Continue Reglan, IV fluids for hydration, continue Zofran Sepsis, pneumonia HCAP secondary to Klebsiella ESBL Patient with hypotension, dehydration wherein he was treated with aggressive IV fluid resuscitation including pressors. Has been off pressors since 04/28/17. Chest x-ray showed 1. There is an air space consolidation in the peripheral left mid lung zone. Although nonspecific this could represent an infectious process/pneumonia and appropriate clinical setting. 2. Mild consolidation versus atelectasis in the right lower lung zone. Sputum culture has Klebsiella ESBL. Leukocytosis has improved - Continue meropenem for ESBL lab, continue Diflucan - Continue O2 nasal cannula PRN, DuoNeb's - Monitor respiratory status. Dysphagia, PEG tube placement Modified barium swallow noted aspiration. - Continue to keep patient nothing by mouth with tube feeding. - Speech therapy continue with treatment. - Monitor for aspiration. COPD/ Pulmonary fibrosis Stable on room air at this time. - Continue with Symbicort twice a day. - Continue with DuoNeb scheduled and when necessary. - Monitor respiratory status. Bladder outlet obstruction Hammond in place. - Continue Flomax. - continue Hammond catheter. - If patient is able to increase activity may need to try bladder training. May consider urology consult. Hypokalemia/ Hypomagnesemia/ Hypophosphatemia Levels have been low. - replete and monitor. DVT prop heparin 5000 every 8 hours subcutaneous Discharge Planning Plan to DC home with [facility] when clinically improved, cleared by general surgery, and ID. Ian Burks DO May 01, 2017 12:31
[2017-05-01] MEDS: RESP: ALBUTEROL 2.5 MG/IPRATROPIUM 0.5 MG NEB (PRN) NEB ×2 (12:44→17:29)
[2017-05-01] MEDS: MAGNESIUM SULFATE 1 GM PREMIX 100 ML IV SCH ×2 (13:04→15:16)
[2017-05-01] MEDS: FLUCONAZOLE 100 MG PREMIX BAG 50 ML IV SCH (13:05)
[2017-05-01] MEDS: POTASSIUM CHLOR 20 MEQ PREMIX 100 ML IV SCH ×2 (14:15→16:00)
[2017-05-01] MEDS: TAMSULOSIN HCL 0.4 MG CAP PO SCH (21:20)
[2017-05-02] VITALS (9 sets, daily range): BP systolic 109–135; BP diastolic 68–95; PULSE 55–87; RESP 18–21; TEMP 97.9–99.1; O2SAT 93–97
[2017-05-02] MEDS: FREE WATER G-TUBE SCH ×4 (00:28→17:24)
[2017-05-02] MEDS: CHLORHEXIDINE GLUCONATE 2 % 1 PACK (2 CLOTHS) TOP SCH (04:00)
[2017-05-02] MEDS: DEXT 5%-NACL 0.45% 1000 ML INJ 1,000 ML IV SCH (05:34)
[2017-05-02] MEDS: HYDROmorphone HCL PF 0.5 MG/0.5 ML SYRINGE IV PUSH PRN ×5 (05:34→21:20)
[2017-05-02] MEDS: METOCLOPRAMIDE HCL 10 MG/2 ML VIAL IV PUSH SCH ×3 (05:38→21:23)
[2017-05-02] MEDS: HEPARIN SODIUM - SQ 10,000 UNITS/ML VIAL SQ SCH ×3 (05:43→21:24)
[2017-05-02] MEDS: RESP: ALBUTEROL 2.5 MG/IPRATROPIUM 0.5 MG NEB (PRN) NEB ×3 (05:45→19:39)
[2017-05-02 06:03] LABS: MEAN CELL VOLUME 100.1 FL (80.0-100.0); MEAN CORPUSCULAR HEMOGLOBIN 34.6 PG (27.0-34.0); MEAN CORPUSCULAR HGB CONC 34.6 % (32.0-36.0); PLATELET COUNT 208 TH/MM3 (150-450); REVIEW FLAG FINAL; WHITE BLOOD COUNT 8.7 TH/MM3 (4.0-11.0)
[2017-05-02] MEDS: MEROPENEM INJ 1,000 MG in SODIUM CHLORIDE 0.9% INJ 100 ML IV SCH ×3 (06:53→21:36)
[2017-05-02 06:59] LABS: BICARBONATE 25.6 MEQ/L (21.0-32.0); MAGNESIUM 1.6 MG/DL (1.5-2.5); POTASSIUM 4.2 MEQ/L (3.5-5.1)
[2017-05-02] MEDS: INSULIN ASPART SUPPLEMENTAL SCALE SQ SCH ×4 (08:00→21:00)
[2017-05-02] MEDS: VITAMINS A & D OINT 60 GM TUBE TOPICAL SCH (08:25)
[2017-05-02] MEDS: PANTOPRAZOLE SODIUM 40 MG VIAL IV PUSH SCH (08:25)
[2017-05-02] MEDS: BUDESONIDE-FORMOTEROL 160/4.5 MCG INHALER INH SCH ×2 (08:27→21:20)
[2017-05-02] MEDS: SODIUM CHLORIDE 0.9% FLUSH 10 ML FLUSH IV FLUSH SCH ×2 (08:27→21:00)
[2017-05-02] MEDS: FLUCONAZOLE 100 MG PREMIX BAG 50 ML IV SCH (12:31)
--- NOTE | 2017-05-02 14:58 | HHI.PR ---
Subjective Remarks The patient wanted to be discharged from the hospital sometime this week. He would like something for anxiety. He would like Lortab for pain control. He does not want to continue working with speech therapy. Objective Vitals Vital Signs Date Time Temp Pulse Resp B/P (MAP) Pulse Ox O2 Delivery O2 Flow Rate FiO2 05/02/17 12:00 96 05/02/17 12:00 98.2 85 20 123/83 (96) 96 05/02/17 10:03 18 05/02/17 08:00 97.9 84 20 131/68 (89) 97 05/02/17 08:00 87 05/02/17 05:21 98.6 74 18 133/95 (108) 97 05/02/17 00:50 98.4 55 18 135/81 (99) 94 05/01/17 20:30 98.1 71 20 133/76 (95) 05/01/17 20:02 73 05/01/17 17:29 97 21 05/01/17 16:00 98.4 70 21 126/70 (88) 95 I/O 05/01/17 05/01/17 05/01/17 05/02/17 05/02/17 05/02/17 07:00 15:00 23:00 07:00 15:00 23:00 Intake Total 1808 ml 250 ml 1679 ml 1000 ml 667 ml Output Total 1600 ml 775 ml 1200 ml 2450 ml Balance 208 ml -525 ml 479 ml -1450 ml 667 ml Intake Oral 0 ml IV Total 1622 ml 250 ml 1400 ml 1000 ml Tube Feeding 279 ml 667 ml Other 186 ml Output Urine Total 1600 ml 775 ml 1200 ml 2450 ml # Bowel Movements 0 1 Result Diagram: 05/02/1752205/02/17522 Imaging Last Impressions Modified Barium Swallow 04/28/17 0000 Signed Impressions: Service Date/Time: Friday, April 28, 2017 13:22 - CONCLUSION: Please see consultation from speech pathology. Bear Olson MD FACR Chest X-Ray 04/27/17 0000 Signed Impressions: Service Date/Time: Thursday, April 27, 2017 02:39 - CONCLUSION: 1. Uncomplicated line placement. No evidence of pneumothorax. Gareth Escalante MD Abdomen X-Ray 04/27/17 0000 Signed Impressions: Service Date/Time: Thursday, April 27, 2017 13:09 - CONCLUSION: 1. The oral contrast material outlines the duodenal C-loop. No abnormal extravasation is identified. Feeding tube is likely within the distal stomach. 2. Persistent abnormally dilated small bowel in the central abdomen. However, it has improved compared to the earlier CT. Lex Malik MD Abdomen/Pelvis CT 04/26/17 2141 Signed Impressions: Service Date/Time: Thursday, April 27, 2017 00:18 - CONCLUSION: 1. Small bowel dilatation which may reflect ileus or obstruction. Followup examination is recommended if clinically indicated. Gareth Escalante MD Objective Remarks GENERAL: This is a thin appearing, well-developed patient, in no apparent distress. SKIN: Warm and dry. HEENT: Normocephalic. Pupils equal round and reactive. Nose without bleeding. Airway patent. NECK: Trachea midline. Supple. CARDIOVASCULAR: Regular rate and rhythm without murmurs, gallops, or rubs. RESPIRATORY: Diminished bases. No wheezes, rales, or rhonchi. GASTROINTESTINAL: Abdomen soft, non-tender, nondistended. Decreased bowel sounds normoactive. PEG in place. : Hammond catheter draining yellow urine. MUSCULOSKELETAL: Extremities without clubbing, cyanosis. Bilateral lower extremity trace edema. NEUROLOGICAL: Awake and alert. Oriented to place, person. No focal neuro deficit. Moves all extremities. Normal speech. PSYCH: Teary-eyed. Medications and IVs Current Medications Medications (Trade) Dose Ordered Sig/Tee Route Start Time Stop Time Status Last Admin (Symbicort 160-4.5 Inh) 2 puff BID INH 04/27/17 09:00 05/02/17 08:27 (Flomax) 0.4 mg HS PO 04/27/17 21:00 05/01/17 21:20 (Desyrel) 75 mg HS PRN PO 04/26/17 23:00 (Pill Splitter) 1 ea UNSCH PRN OTHER 04/26/17 23:15 (NS Flush) 2 ml UNSCH PRN IV FLUSH 04/26/17 23:00 (NS Flush) 2 ml BID IV FLUSH 04/27/17 09:00 05/02/17 08:27 (Protonix Inj) 40 mg DAILY IV PUSH 04/27/17 09:00 05/02/17 08:25 (Duoneb Neb) 1 ampule Q2HR NEB PRN NEB 04/26/17 23:15 05/02/17 13:04 (Heparin Inj) 5,000 units Q8HR SQ 04/27/17 06:00 05/02/17 13:28 Miscellaneous Information 1 Q361D XX 04/26/17 23:00 (Chlorhexidine 2% Cloth) Taper DAILY@04 TOP 04/27/17 04:00 04/23/18 03:59 (Chlorhexidine 2% Cloth) 3 pack UNSCH PRN TOP 04/26/17 23:00 (Zofran Inj) 4 mg Q4H PRN IV PUSH 04/27/17 02:45 04/28/17 08:23 (D50w (Vial) Inj) 50 ml UNSCH PRN IV PUSH 04/27/17 09:30 (Glucagon Inj) 1 mg UNSCH PRN OTHER 04/27/17 09:30 (NovoLOG SUPPLEMENTAL SCALE) 1 ACHS SLIDING SCALE SQ 04/27/17 12:00 (Reglan Inj) 5 mg Q8HR IV PUSH 04/28/17 14:00 05/02/17 13:28 (Dilaudid Pf Inj) 0.5 mg Q4H PRN IV PUSH 04/28/17 09:30 05/02/17 13:29 Fluconazole/ Sodium Chloride 50 ml @ 50 mls/hr Q24H IV 04/28/17 13:00 05/02/17 12:31 Meropenem 1000 mg/ Sodium Chloride 100 ml @ 200 mls/hr Q8H IV 04/29/17 14:00 05/02/17 13:28 (Free Water) VOLUME OF WATER: ( 100 ) ML Q6HR G-TUBE 04/30/17 18:00 05/02/17 12:00 Sodium Phosphate 30 mmol/Sodium Chloride 260 ml @ 43.333 mls/ hr ONCE ONCE IV 05/02/17 16:00 05/02/17 21:59 Magnesium Sulfate/ Dextrose 100 ml @ 100 mls/hr Q1H IV 05/02/17 14:45 05/02/17 16:44 UNV (Roxicodone) 5 mg Q4H PRN PEG 05/02/17 14:45 UNV Date of Insertion: Apr 26, 2017 Line: Central Venous Catheter Side: Right Location: Internal, Jugular (vasoactive medication) A/P Problem List: (1) PEG (percutaneous endoscopic gastrostomy) status ICD Code: Z93.1 - Gastrostomy status Status: Chronic (2) Pseudomonas pneumonia ICD Code: J15.1 - Pneumonia due to Pseudomonas Status: Acute (3) Hypokalemia ICD Code: E87.6 - Hypokalemia Status: Acute (4) Ashley sepsis ICD Code: B37.7 - Candidal sepsis Status: Acute (5) Sepsis due to urinary tract infection ICD Code: A41.9 - Sepsis, unspecified organism; N39.0 - Urinary tract infection , site not specified Status: Acute (6) PEG tube malfunction ICD Code: K94.23 - Gastrostomy malfunction Status: Acute (7) Bladder outflow obstruction ICD Code: N32.0 - Bladder-neck obstruction Status: Acute Assessment and Plan Patient is a 72-year-old male with a history of sepsis, HTN, COPD, prostate cancer, bladder outlet obstruction, ventral hernia with mesh placement who came into the hospital with a sudden onset of nausea and vomiting and was leaking stool surrounding his PEG tube. Ileus vs Obstruction Abdominal Pain, nausea, vomiting CT of the abdomen and pelvis showed 1. Small bowel dilatation which may reflect ileus or obstruction. General surgery has been following the patient. Abdominal x-ray showed: Oral contrast material supplies the duodenal C-loop, no extravasation was identified. Feeding tube is likely within the distal stomach ; Persistent abnormally dilated small bowel in the central abdomen; However has improved compared to the earlier CT. - Continue with tube feeds with a goal of 45 cc an hour, with water flushes to keep it from clogging. - Continue Reglan, IV fluids for hydration, continue Zofran. Sepsis, pneumonia HCAP secondary to Klebsiella ESBL Patient with hypotension, dehydration wherein he was treated with aggressive IV fluid resuscitation including pressors. Has been off pressors since 04/28/17. Chest x-ray showed 1. There is an air space consolidation in the peripheral left mid lung zone. Although nonspecific this could represent an infectious process/pneumonia and appropriate clinical setting. 2. Mild consolidation versus atelectasis in the right lower lung zone. Sputum culture has Klebsiella ESBL. Leukocytosis has improved - Continue meropenem for ESBL lab, continue Diflucan per ID. - Continue O2 nasal cannula PRN, DuoNeb's. - Monitor respiratory status. Dysphagia, PEG tube placement Modified barium swallow noted aspiration. - Continue to keep patient nothing by mouth with tube feeding. - Speech therapy. - Monitor for aspiration. COPD/ Pulmonary fibrosis Stable on room air at this time. - Continue with Symbicort twice a day. - Continue with DuoNeb scheduled and when necessary. - Monitor respiratory status. Bladder outlet obstruction Hammond in place. - Continue Flomax. - continue Hammond catheter. - If patient is able to increase activity may need to try bladder training. May consider urology consult. Hypokalemia/ Hypomagnesemia/ Hypophosphatemia Levels have been low. - replete and monitor. DVT prop heparin 5000 every 8 hours subcutaneous Discharge Planning Plan to DC home with [facility] when clinically improved, cleared by general surgery, and ID. Ian Burks DO May 02, 2017 14:58
[2017-05-02] MEDS ORDERED: DIAZEPAM 5 MG TAB PO ONE (15:00)
[2017-05-02] MEDS: MAGNESIUM SULFATE 1 GM PREMIX 100 ML IV SCH ×2 (15:34→17:16)
[2017-05-02] MEDS ORDERED: SODIUM PHOSPHATE INJ 30 MMOL in SODIUM CHLOR 0.9% 250 ML INJ 250 ML IV ONE (16:00)
[2017-05-02] MEDS: TAMSULOSIN HCL 0.4 MG CAP PO SCH (21:27)
[2017-05-03] VITALS (8 sets, daily range): BP systolic 114–147; BP diastolic 72–85; PULSE 68–87; RESP 17–20; TEMP 97.5–98.8; O2SAT 92–96
[2017-05-03] MEDS: FREE WATER G-TUBE SCH ×4 (01:25→15:09)
[2017-05-03] MEDS: HYDROmorphone HCL PF 0.5 MG/0.5 ML SYRINGE IV PUSH PRN ×6 (01:25→22:47)
[2017-05-03] MEDS: VITAMINS A & D OINT 60 GM TUBE TOPICAL SCH ×4 (01:33→22:50)
[2017-05-03] MEDS: CHLORHEXIDINE GLUCONATE 2 % 1 PACK (2 CLOTHS) TOP SCH (04:00)
[2017-05-03] MEDS: HEPARIN SODIUM - SQ 10,000 UNITS/ML VIAL SQ SCH ×3 (05:41→20:48)
[2017-05-03] MEDS: METOCLOPRAMIDE HCL 10 MG/2 ML VIAL IV PUSH SCH ×3 (05:42→20:41)
[2017-05-03] MEDS: MEROPENEM INJ 1,000 MG in SODIUM CHLORIDE 0.9% INJ 100 ML IV SCH ×3 (05:42→20:47)
[2017-05-03] MEDS: RESP: ALBUTEROL 2.5 MG/IPRATROPIUM 0.5 MG NEB (PRN) NEB ×4 (06:14→20:40)
[2017-05-03 07:49] LABS: BICARBONATE 26.1 MEQ/L (21.0-32.0); MAGNESIUM 1.6 MG/DL (1.5-2.5); POTASSIUM 3.4 MEQ/L (3.5-5.1)
[2017-05-03] MEDS: INSULIN ASPART SUPPLEMENTAL SCALE SQ SCH (08:00)
[2017-05-03] MEDS: SODIUM CHLORIDE 0.9% FLUSH 10 ML FLUSH IV FLUSH SCH ×2 (09:00→20:48)
[2017-05-03] MEDS: BUDESONIDE-FORMOTEROL 160/4.5 MCG INHALER INH SCH ×2 (09:00→20:49)
[2017-05-03] MEDS: PANTOPRAZOLE SODIUM 40 MG VIAL IV PUSH SCH (09:39)
[2017-05-03] MEDS ORDERED: MAGNESIUM SULFATE 1 GM PREMIX 100 ML IV ONE (12:00)
--- NOTE | 2017-05-03 12:25 | HHI.PR ---
Subjective Remarks The patient was resting comfortably in bed. His family was at the bedside and they questions about starting probiotics. The patient said his pain medications needed to come more frequently. No other acute complaints. He has been having bowel movements. Objective Vitals Vital Signs Date Time Temp Pulse Resp B/P (MAP) Pulse Ox O2 Delivery O2 Flow Rate FiO2 05/03/17 12:04 98.0 84 20 147/82 (103) 93 05/03/17 08:26 97.9 87 18 127/77 (94) 94 05/03/17 08:21 94 21 05/03/17 05:09 98.8 85 17 117/72 (87) 96 05/03/17 00:11 97.8 68 17 130/85 (100) 95 05/02/17 21:25 98.6 84 21 129/70 (89) 93 05/02/17 20:00 78 05/02/17 19:40 95 05/02/17 18:25 96 05/02/17 16:00 99.1 86 20 109/74 (86) 96 05/02/17 14:00 18 I/O 05/02/17 05/02/17 05/02/17 05/03/17 05/03/17 05/03/17 07:00 15:00 23:00 07:00 15:00 23:00 Intake Total 1000 ml 817 ml 1281 ml 360 ml Output Total 2450 ml 650 ml 1100 ml Balance -1450 ml 817 ml 631 ml -740 ml IV Total 1000 ml 150 ml 1069 ml 360 ml Tube Feeding 667 ml 212 ml Output Urine Total 2450 ml 650 ml 1100 ml # Bowel Movements 1 Result Diagram: 05/02/17 0523 05/03/17 0647 Imaging Last Impressions Modified Barium Swallow 04/28/17 0000 Signed Impressions: Service Date/Time: Friday, April 28, 2017 13:22 - CONCLUSION: Please see consultation from speech pathology. Bear Olson MD FACR Chest X-Ray 04/27/17 0000 Signed Impressions: Service Date/Time: Thursday, April 27, 2017 02:39 - CONCLUSION: 1. Uncomplicated line placement. No evidence of pneumothorax. Gareth Escalante MD Abdomen X-Ray 04/27/17 0000 Signed Impressions: Service Date/Time: Thursday, April 27, 2017 13:09 - CONCLUSION: 1. The oral contrast material outlines the duodenal C-loop. No abnormal extravasation is identified. Feeding tube is likely within the distal stomach. 2. Persistent abnormally dilated small bowel in the central abdomen. However, it has improved compared to the earlier CT. Lex Malik MD Abdomen/Pelvis CT 04/26/17 8044 Signed Impressions: Service Date/Time: Thursday, April 27, 2017 00:18 - CONCLUSION: 1. Small bowel dilatation which may reflect ileus or obstruction. Followup examination is recommended if clinically indicated. Gareth Escalante MD Objective Remarks GENERAL: This is a thin appearing, well-developed patient, in no apparent distress. SKIN: Warm and dry. HEENT: Normocephalic. Pupils equal round and reactive. Nose without bleeding. Airway patent. NECK: Trachea midline. Supple. CARDIOVASCULAR: Regular rate and rhythm without murmurs, gallops, or rubs. RESPIRATORY: Diminished bases. No wheezes, rales, or rhonchi. GASTROINTESTINAL: Abdomen soft, non-tender, nondistended. Decreased bowel sounds normoactive. PEG in place. : Hammond catheter draining yellow urine. MUSCULOSKELETAL: Extremities without clubbing, cyanosis. Bilateral lower extremity trace edema. NEUROLOGICAL: Awake and alert. Oriented to place, person. No focal neuro deficit. Moves all extremities. Normal speech. PSYCH: Mood and affect appropriate. Medications and IVs Current Medications Medications (Trade) Dose Ordered Sig/Tee Route Start Time Stop Time Status Last Admin (Symbicort 160-4.5 Inh) 2 puff BID INH 04/27/17 09:00 05/03/17 09:00 (Flomax) 0.4 mg HS PO 04/27/17 21:00 05/02/17 21:27 (Pill Splitter) 1 ea UNSCH PRN OTHER 04/26/17 23:15 (NS Flush) 2 ml UNSCH PRN IV FLUSH 04/26/17 23:00 (NS Flush) 2 ml BID IV FLUSH 04/27/17 09:00 05/03/17 09:00 (Protonix Inj) 40 mg DAILY IV PUSH 04/27/17 09:00 05/03/17 09:39 (Duoneb Neb) 1 ampule Q2HR NEB PRN NEB 04/26/17 23:15 05/03/17 11:30 (Heparin Inj) 5,000 units Q8HR SQ 04/27/17 06:00 05/03/17 05:41 Miscellaneous Information 1 Q361D XX 04/26/17 23:00 (Chlorhexidine 2% Cloth) Taper DAILY@04 TOP 04/27/17 04:00 04/23/18 03:59 (Chlorhexidine 2% Cloth) 3 pack UNSCH PRN TOP 04/26/17 23:00 (Zofran Inj) 4 mg Q4H PRN IV PUSH 04/27/17 02:45 04/28/17 08:23 (D50w (Vial) Inj) 50 ml UNSCH PRN IV PUSH 04/27/17 09:30 (Glucagon Inj) 1 mg UNSCH PRN OTHER 04/27/17 09:30 (NovoLOG SUPPLEMENTAL SCALE) 1 ACHS SLIDING SCALE SQ 04/27/17 12:00 (Reglan Inj) 5 mg Q8HR IV PUSH 04/28/17 14:00 05/03/17 05:42 (Dilaudid Pf Inj) 0.5 mg Q4H PRN IV PUSH 04/28/17 09:30 05/03/17 09:53 Fluconazole/ Sodium Chloride 50 ml @ 50 mls/hr Q24H IV 04/28/17 13:00 05/02/17 12:31 Meropenem 1000 mg/ Sodium Chloride 100 ml @ 200 mls/hr Q8H IV 04/29/17 14:00 05/03/17 05:42 (Free Water) VOLUME OF WATER: ( 100 ) ML Q6HR G-TUBE 04/30/17 18:00 05/03/17 05:42 (Valium) 5 mg Q12HR PRN PO 05/02/17 15:00 ([place] 10-325 Mg) 1 tab Q4H PRN PO 05/02/17 15:00 Magnesium Sulfate/ Dextrose 100 ml @ 100 mls/hr ONCE ONCE IV 05/03/17 12:00 05/03/17 12:59 Potassium Chloride 100 ml @ 50 mls/hr BOLUS ONCE IV 05/03/17 12:00 05/03/17 13:59 Date of Insertion: Apr 26, 2017 Line: Central Venous Catheter Side: Right Location: Internal, Jugular (vasoactive medication) A/P Problem List: (1) PEG (percutaneous endoscopic gastrostomy) status ICD Code: Z93.1 - Gastrostomy status Status: Chronic (2) Pseudomonas pneumonia ICD Code: J15.1 - Pneumonia due to Pseudomonas Status: Acute (3) Hypokalemia ICD Code: E87.6 - Hypokalemia Status: Acute (4) Ashley sepsis ICD Code: B37.7 - Candidal sepsis Status: Acute (5) Sepsis due to urinary tract infection ICD Code: A41.9 - Sepsis, unspecified organism; N39.0 - Urinary tract infection , site not specified Status: Acute (6) PEG tube malfunction ICD Code: K94.23 - Gastrostomy malfunction Status: Acute (7) Bladder outflow obstruction ICD Code: N32.0 - Bladder-neck obstruction Status: Acute Assessment and Plan Patient is a 72-year-old male with a history of sepsis, HTN, COPD, prostate cancer, bladder outlet obstruction, ventral hernia with mesh placement who came into the hospital with a sudden onset of nausea and vomiting and was leaking stool surrounding his PEG tube. Ileus vs Obstruction Abdominal Pain, nausea, vomiting CT of the abdomen and pelvis showed 1. Small bowel dilatation which may reflect ileus or obstruction. General surgery has been following the patient. Abdominal x-ray showed: Oral contrast material supplies the duodenal C-loop, no extravasation was identified. Feeding tube is likely within the distal stomach ; Persistent abnormally dilated small bowel in the central abdomen; However has improved compared to the earlier CT. - Continue with tube feeds with a goal of 45 cc an hour, with water flushes to keep it from clogging. - Continue Reglan, IV fluids for hydration, continue Zofran. Sepsis, pneumonia HCAP secondary to Klebsiella ESBL Patient with hypotension, dehydration wherein he was treated with aggressive IV fluid resuscitation including pressors. Has been off pressors since 04/28/17. Chest x-ray showed 1. There is an air space consolidation in the peripheral left mid lung zone. Although nonspecific this could represent an infectious process/pneumonia and appropriate clinical setting. 2. Mild consolidation versus atelectasis in the right lower lung zone. Sputum culture has Klebsiella ESBL. Leukocytosis has improved - Continue meropenem for ESBL lab, continue Diflucan per ID. - Continue O2 nasal cannula PRN, DuoNeb's. - Monitor respiratory status. Dysphagia, PEG tube placement Modified barium swallow noted aspiration. - Continue to keep patient nothing by mouth with tube feeding. - Speech therapy. - Monitor for aspiration. - probiotics started per family request. COPD/ Pulmonary fibrosis Stable on room air at this time. - Continue with Symbicort twice a day. - Continue with DuoNeb scheduled and when necessary. - Monitor respiratory status. Bladder outlet obstruction Hammond in place. - Continue Flomax. - continue Hammond catheter. - If patient is able to increase activity may need to try bladder training. May consider urology consult. Hypokalemia/ Hypomagnesemia/ Hypophosphatemia Levels have been low. - replete and monitor. DVT prop heparin 5000 every 8 hours subcutaneous Discharge Planning Plan to DC home with [facility] when clinically improved, cleared by general surgery, and ID. Ian Burks DO May 03, 2017 12:25
--- NOTE | 2017-05-03 12:28 | HHI.FF ---
Face to Face Verification Diagnosis: (1) PEG tube malfunction (2) Klebsiella pneumoniae pneumonia (3) Pseudomonas pneumonia (4) Bladder outflow obstruction Physical Therapy Order: Evaluate and Treat, Improve ambulation, Strength and gait training Occupational Therapy Order: Evaluate and Treat, Improve ADL, Gross motor coordination, Fine motor coordination Speech Therapy Order: To Improve: Speech and communication skills, Cognitive skills, Swallowing Home Health Nursing Order: Medical education Signs/symptoms of disease process CHF education Medication education-adverse effect Wound care and dressing changes Nursing assessment with vital signs Instructions: Please cleanse coccyx wound with wound cleanser and pat dry. Pack wound with Maxorb II (Calcium alginate) dressing and cover with adhesive foam dressing. Change dressing every 2 days or PRN if saturated or dislodged. I have seen patient Ravindra Thomason on 05/03/17. My clinical findings support the need for the requested home health care services because: Ltd mobility - disease progression Deconditioned w/ increased weakness Limited ability to care for self High risk of falls I certify that my clinical findings support that this patient is homebound because: Unsteady gait/balance Unsafe to leave home unassisted Poor cardiac reserve Ian Burks DO May 03, 2017 12:28
[2017-05-03] MEDS: FLUCONAZOLE 100 MG PREMIX BAG 50 ML IV SCH (14:30)
[2017-05-03] MEDS: POTASSIUM CHLOR 20 MEQ PREMIX 100 ML IV ONE ×2 (14:40→16:03)
[2017-05-03] MEDS: LACTOBACILLUS ACIDOPHILUS TAB PO SCH ×2 (15:08→20:43)
--- NOTE | 2017-05-03 15:13 | HHI.IDPN ---
Note Infectious Disease Note Patient coughing up clear phlem. Awake, alert. Afebrile. says he feels better. Denies SOB. Sputum culture has Klebsiella ESBL. Admitted with nausea, vomiting and abdominal pain. The patient was noted to have leakage of fecal matter around his PEG tube. He was evaluated in the emergency department yesterday and was noted to have hypotension with a blood pressure of 60/40 and a white count of 32.1 along with a left shift including 33% bands. The patient has been fed via the PEG tube. PAST MEDICAL HISTORY 1. Hypertension 2. Hyperlipidemia 3. COPD 4. Prostate cancer 5. Ventral hernia 6. Appendectomy 7. Perforated gastric ulcer repair 8. PEG tube placement. ALLERGIES NO KNOWN DRUG ALLERGIES. MEDICATIONS 1. Meropenem. 2. Diflucan SOCIAL HISTORY No tobacco, no alcohol, no illicit drugs. OBJECTIVE: Vital Signs Date Time Temp Pulse Resp B/P (MAP) Pulse Ox O2 Delivery O2 Flow Rate FiO2 05/03/17 12:04 98.0 84 20 147/82 (103) 93 05/03/17 08:26 97.9 87 18 127/77 (94) 94 05/03/17 08:21 94 21 05/03/17 05:09 98.8 85 17 117/72 (87) 96 05/03/17 00:11 97.8 68 17 130/85 (100) 95 05/02/17 21:25 98.6 84 21 129/70 (89) 93 05/02/17 20:00 78 05/02/17 19:40 95 05/02/17 18:25 96 05/02/17 16:00 99.1 86 20 109/74 (86) 96 Laboratory Tests Test 05/02/17 05:23 White Blood Count 8.7 TH/MM3 Red Blood Count 2.50 MIL/MM3 Hemoglobin 8.7 GM/DL Hematocrit 25.0 % Mean Corpuscular Volume 100.1 FL Mean Corpuscular Hemoglobin 34.6 PG Mean Corpuscular Hemoglobin Concent 34.6 % Red Cell Distribution Width 14.0 % Platelet Count 208 TH/MM3 Mean Platelet Volume 8.4 FL Laboratory Tests Test 05/02/17 05:23 05/03/17 06:47 Blood Urea Nitrogen 5 MG/DL 7 MG/DL Creatinine 0.67 MG/DL 0.58 MG/DL Random Glucose 119 MG/DL 122 MG/DL Calcium Level 7.9 MG/DL 8.0 MG/DL Phosphorus Level 1.9 MG/DL 2.5 MG/DL Magnesium Level 1.6 MG/DL 1.6 MG/DL Sodium Level 139 MEQ/L 139 MEQ/L Potassium Level 4.2 MEQ/L 3.4 MEQ/L Chloride Level 106 MEQ/L 105 MEQ/L Carbon Dioxide Level 25.6 MEQ/L 26.1 MEQ/L Anion Gap 7 MEQ/L 8 MEQ/L Estimat Glomerular Filtration Rate 117 ML/MIN 138 ML/MIN IMAGING: Modified Barium Swallow 04/28/17 0000 Signed Impressions: Service Date/Time: Friday, April 28, 2017 13:22 - CONCLUSION: Please see consultation from speech pathology. Bear Olson MD FACR Chest X-Ray 04/27/17 0000 Signed Impressions: Service Date/Time: Thursday, April 27, 2017 02:39 - CONCLUSION: 1. Uncomplicated line placement. No evidence of pneumothorax. Gareth Escalante MD Abdomen X-Ray 04/27/17 Signed Impressions: Service Date/Time: Thursday, April 27, 2017 13:09 - CONCLUSION: 1. The oral contrast material outlines the duodenal C-loop. No abnormal extravasation is identified. Feeding tube is likely within the distal stomach. 2. Persistent abnormally dilated small bowel in the central abdomen. However, it has improved compared to the earlier CT. Lex Malik MD Chest X-Ray 04/26/172140 Signed Impressions: Service Date/Time: Wednesday, April 26, 2017 21:46 - CONCLUSION: 1. There is airspace consolidation in the peripheral left midlung zone. Although nonspecific this could represent an infectious process/pneumonia in the appropriate clinical setting. 2. Mild consolidation versus atelectasis in the right lower lung zone. Lex Malik MD Abdomen/Pelvis CT 04/26/172140 Signed Impressions: Service Date/Time: Thursday, April 27, 2017 00:18 - CONCLUSION: 1. Small bowel dilatation which may reflect ileus or obstruction. Followup examination is recommended if clinically indicated. Gareth Escalante MD PHYSICAL EXAM GENERAL: No acute distress. Awake, alert and oriented. HEENT: No icterus. Oropharynx, moist mucosa. No lesions. NECK: Supple. No adenopathy. LUNGS: Rhonchi at the R. lung base. HEART: Regular S1 and S2. No murmurs, rubs or gallops. ABDOMEN: Bulge at the lower abdomen in the umbilicus area where the PEG tube exits the abdomen. No drainage visible around the PEG tube currently. No erythema. The abdomen is soft. No palpable mass. EXTREMITIES: No clubbing or cyanosis or edema. SKIN: No rash. PSYCHIATRIC: Calm and cooperative. IMPRESSION 1. Sepsis 2. Pneumonia ESBL klebsiella. - HCAP. Being treated. 3. Abdominal pain and PEG tube malfunction. 4. Leukocytosis secondary to sepsis. Treated and improved. 5. Aspiration pneumonia. 6. Acute renal disease. 7. Candiduria. Treated. RECOMMENDATIONS 1. Continue Meropenem for ESBL Kleb. 2. Stop Diflucan. 3. Repeat CXR. 4. Monitor clinical status. Gautam Yanez MD May 03, 2017 15:13
[2017-05-03] MEDS: ACETAMINOPHEN/HYDROcodone 325 MG/10 MG TAB PO PRN ×2 (15:48→20:42)
--- NOTE | 2017-05-03 16:09 | RADRPT ---
EXAM DATE/TIME: 05/03/2017 15:17 [facility] COMPARISON: CHEST SINGLE AP, October 12, 2016, 3:31. CHEST SINGLE AP, April 27, 2017, 2:39. INDICATIONS : Evaluate for pneumonia MEDICAL HISTORY : Chronic obstructive pulmonary disease. Emphysema SURGICAL HISTORY : PEG tube. ENCOUNTER: Subsequent ACUITY: 1 week PAIN SCORE: 0/10 LOCATION: chest FINDINGS: A single portable frontal view of the chest shows a right-sided central line without pneumothorax. Pa tchy areas of parenchymal consolidation are seen involving both upper lobes. This is unchanged. No ef fusions. The heart is normal in size. Old trauma involving the left humeral metaphysis. CONCLUSION: Unchanged bilateral upper lobe pulmonary infiltrates. Polo Moore Jr., MD on May 03, 2017 at 16:07 Board Certified Radiologist. This report was verified electronically.
[2017-05-03] MEDS: TAMSULOSIN HCL 0.4 MG CAP PO SCH (20:42)
[2017-05-04] VITALS (9 sets, daily range): BP systolic 116–146; BP diastolic 67–76; PULSE 71–95; RESP 18; TEMP 97.4–98.4; O2SAT 92–97
[2017-05-04] MEDS: ACETAMINOPHEN/HYDROcodone 325 MG/10 MG TAB PO PRN ×5 (01:20→22:04)
[2017-05-04] MEDS: CHLORHEXIDINE GLUCONATE 2 % 1 PACK (2 CLOTHS) TOP SCH (04:00)
[2017-05-04] MEDS: METOCLOPRAMIDE HCL 10 MG/2 ML VIAL IV PUSH SCH ×3 (06:00→22:03)
[2017-05-04] MEDS: HEPARIN SODIUM - SQ 10,000 UNITS/ML VIAL SQ SCH ×3 (06:00→22:01)
[2017-05-04] MEDS: FREE WATER G-TUBE SCH ×5 (06:00→22:06)
[2017-05-04] MEDS: HYDROmorphone HCL PF 0.5 MG/0.5 ML SYRINGE IV PUSH PRN ×4 (06:43→19:46)
[2017-05-04] MEDS: MEROPENEM INJ 1,000 MG in SODIUM CHLORIDE 0.9% INJ 100 ML IV SCH ×3 (06:44→21:57)
[2017-05-04] MEDS: RESP: ALBUTEROL 2.5 MG/IPRATROPIUM 0.5 MG NEB (PRN) NEB ×3 (07:37→19:31)
[2017-05-04] MEDS: PANTOPRAZOLE SODIUM 40 MG VIAL IV PUSH SCH (08:30)
[2017-05-04] MEDS: LACTOBACILLUS ACIDOPHILUS TAB PO SCH ×2 (08:31→22:03)
[2017-05-04] MEDS: SODIUM CHLORIDE 0.9% FLUSH 10 ML FLUSH IV FLUSH SCH ×2 (08:32→22:04)
[2017-05-04] MEDS: VITAMINS A & D OINT 60 GM TUBE TOPICAL SCH ×2 (08:33→22:05)
[2017-05-04] MEDS: BUDESONIDE-FORMOTEROL 160/4.5 MCG INHALER INH SCH ×2 (08:34→22:04)
[2017-05-04 08:41] LABS: BICARBONATE 26.8 MEQ/L (21.0-32.0); MAGNESIUM 1.8 MG/DL (1.5-2.5); POTASSIUM 4.5 MEQ/L (3.5-5.1)
--- NOTE | 2017-05-04 10:28 | HHI.PR ---
Subjective Remarks Follow-up for HCAP due to ESBL Klebsiella. Patient is currently doing well. Denies any chest pain, shortness of breath, fever or chills. Tolerating to feed well. Objective Vitals Vital Signs Date Time Temp Pulse Resp B/P (MAP) Pulse Ox O2 Delivery O2 Flow Rate FiO2 05/04/17 08:00 98.2 87 18 127/70 (89) 93 05/04/17 07:40 94 05/04/17 05:32 98.4 78 18 128/70 (89) 97 05/04/17 02:41 79 05/04/17 02:20 18 05/04/17 00:44 97.4 83 18 117/68 (84) 94 05/03/17 23:14 18 05/03/17 20:45 98.0 79 18 114/73 (87) 92 05/03/17 20:43 92 21 05/03/17 16:50 97.5 81 20 130/72 (91) 94 05/03/17 12:04 98.0 84 20 147/82 (103) 93 I/O 05/03/17 05/03/17 05/03/17 05/04/17 05/04/17 05/04/17 07:00 15:00 23:00 07:00 15:00 23:00 Intake Total 360 ml 0 ml 100 ml Output Total 1100 ml 1130 ml 1000 ml Balance -740 ml -1130 ml 100 ml -1000 ml Intake Oral 0 ml IV Total 360 ml 100 ml Output Urine Total 1100 ml 1130 ml 1000 ml # Bowel Movements 1 Result Diagram: 05/02/17 0523 05/04/17 0725 Imaging Last Impressions Chest X-Ray 05/03/17 0000 Signed Impressions: Service Date/Time: Wednesday, May 03, 2017 15:17 - CONCLUSION: Unchanged bilateral upper lobe pulmonary infiltrates. Polo Moore Jr., MD Modified Barium Swallow 04/28/17 0000 Signed Impressions: Service Date/Time: Friday, April 28, 2017 13:22 - CONCLUSION: Please see consultation from speech pathology. Bear Olson MD FACR Abdomen X-Ray 04/27/17 0000 Signed Impressions: Service Date/Time: Thursday, April 27, 2017 13:09 - CONCLUSION: 1. The oral contrast material outlines the duodenal C-loop. No abnormal extravasation is identified. Feeding tube is likely within the distal stomach. 2. Persistent abnormally dilated small bowel in the central abdomen. However, it has improved compared to the earlier CT. Lex Malik MD Abdomen/Pelvis CT 04/26/17 Signed Impressions: Service Date/Time: Thursday, April 27, 2017 00:18 - CONCLUSION: 1. Small bowel dilatation which may reflect ileus or obstruction. Followup examination is recommended if clinically indicated. Gareth Escalante MD Objective Remarks GENERAL: Alert, oriented 3, NAD SKIN: Warm and dry. HEAD: Normocephalic. EYES: No scleral icterus. No injection or drainage. NECK: Supple, trachea midline. No JVD or lymphadenopathy. CARDIOVASCULAR: Regular rate and rhythm without murmurs, gallops, or rubs. RESPIRATORY: Breath sounds equal bilaterally. No accessory muscle use. GASTROINTESTINAL: Abdomen soft, non-tender, nondistended. MUSCULOSKELETAL: No cyanosis, or edema. BACK: Nontender without obvious deformity. No CVA tenderness. Procedures None Date of Insertion: Apr 26, 2017 Line: Central Venous Catheter Side: Right Location: Internal, Jugular (vasoactive medication) A/P Problem List: (1) PEG (percutaneous endoscopic gastrostomy) status ICD Code: Z93.1 - Gastrostomy status Status: Chronic (2) Pseudomonas pneumonia ICD Code: J15.1 - Pneumonia due to Pseudomonas Status: Acute (3) Hypokalemia ICD Code: E87.6 - Hypokalemia Status: Acute (4) Ashley sepsis ICD Code: B37.7 - Candidal sepsis Status: Acute (5) Sepsis due to urinary tract infection ICD Code: A41.9 - Sepsis, unspecified organism; N39.0 - Urinary tract infection , site not specified Status: Acute (6) PEG tube malfunction ICD Code: K94.23 - Gastrostomy malfunction Status: Acute (7) Bladder outflow obstruction ICD Code: N32.0 - Bladder-neck obstruction Status: Acute Assessment and Plan Patient is a 72-year-old male with a history of sepsis, HTN, COPD, prostate cancer, bladder outlet obstruction, ventral hernia with mesh placement who came into the hospital with a sudden onset of nausea and vomiting and was leaking stool surrounding his PEG tube. Ileus vs Obstruction Abdominal Pain, nausea, vomiting CT of the abdomen and pelvis showed 1. Small bowel dilatation which may reflect ileus or obstruction. General surgery has been following the patient. Abdominal x-ray showed: Oral contrast material supplies the duodenal C-loop, no extravasation was identified. Feeding tube is likely within the distal stomach ; Persistent abnormally dilated small bowel in the central abdomen; However has improved compared to the earlier CT. - Continue with tube feeds with a goal of 45 cc an hour, with water flushes to keep it from clogging. - Continue Reglan, IV fluids for hydration, continue Zofran. Sepsis, pneumonia HCAP secondary to Klebsiella ESBL - Sputum culture has Klebsiella ESBL. Leukocytosis has improved - Continue meropenem for ESBL lab. Diflucan discontinued on 05/03/2017. - Continue O2 nasal cannula PRN, DuoNeb's. Dysphagia, PEG tube placement Modified barium swallow noted aspiration. - Continue to keep patient nothing by mouth with tube feeding. - Speech therapy. - Monitor for aspiration. - probiotics started per family request. COPD/ Pulmonary fibrosis - Stable on room air at this time. - Continue with Symbicort twice a day. - Continue with DuoNeb scheduled and when necessary. Bladder outlet obstruction - Hammond in place. - Continue Flomax. - continue Hammond catheter. - If patient is able to increase activity may need to try bladder training. Full code. Heparin SQ. Chantal Arana DO May 04, 2017 10:28
--- NOTE | 2017-05-04 14:07 | HHI.IDPN ---
Note Infectious Disease Note Patient coughing up vasquez sputum. Awake, alert. Afebrile. Denies SOB. Admitted with nausea, vomiting and abdominal pain. The patient was noted to have leakage of fecal matter around his PEG tube. He was evaluated in the emergency department yesterday and was noted to have hypotension with a blood pressure of 60/40 and a white count of 32.1 along with a left shift including 33% bands. The patient has been fed via the PEG tube. PAST MEDICAL HISTORY 1. Hypertension 2. Hyperlipidemia 3. COPD 4. Prostate cancer 5. Ventral hernia 6. Appendectomy 7. Perforated gastric ulcer repair 8. PEG tube placement. ALLERGIES NO KNOWN DRUG ALLERGIES. MEDICATIONS 1. Meropenem. SOCIAL HISTORY No tobacco, no alcohol, no illicit drugs. OBJECTIVE: Vital Signs Date Time Temp Pulse Resp B/P (MAP) Pulse Ox O2 Delivery O2 Flow Rate FiO2 05/04/17 12:47 98.2 71 18 143/75 (97) 92 05/04/17 08:00 98.2 87 18 127/70 (89) 93 05/04/17 07:40 94 05/04/17 05:32 98.4 78 18 128/70 (89) 97 05/04/17 02:41 79 05/04/17 02:20 18 05/04/17 00:44 97.4 83 18 117/68 (84) 94 05/03/17 23:14 18 05/03/17 20:45 98.0 79 18 114/73 (87) 92 05/03/17 20:43 92 21 05/03/17 16:50 97.5 81 20 130/72 (91) 94 Laboratory Tests Test 05/03/17 06:47 05/04/17 07:25 Blood Urea Nitrogen 7 MG/DL 11 MG/DL Creatinine 0.58 MG/DL 0.64 MG/DL Random Glucose 122 MG/DL 110 MG/DL Calcium Level 8.0 MG/DL 8.4 MG/DL Phosphorus Level 2.5 MG/DL Magnesium Level 1.6 MG/DL 1.8 MG/DL Sodium Level 139 MEQ/L 139 MEQ/L Potassium Level 3.4 MEQ/L 4.5 MEQ/L Chloride Level 105 MEQ/L 104 MEQ/L Carbon Dioxide Level 26.1 MEQ/L 26.8 MEQ/L Anion Gap 8 MEQ/L 8 MEQ/L Estimat Glomerular Filtration Rate 138 ML/MIN 123 ML/MIN IMAGING: Chest X-Ray 05/03/17 Signed Impressions: Service Date/Time: Wednesday, May 03, 2017 15:17 - CONCLUSION: Unchanged bilateral upper lobe pulmonary infiltrates. Polo Moore Jr., MD Modified Barium Swallow 04/28/17 Signed Impressions: Service Date/Time: Friday, April 28, 2017 13:22 - CONCLUSION: Please see consultation from speech pathology. Bear Olson MD FACR Chest X-Ray 04/27/17 Signed Impressions: Service Date/Time: Thursday, April 27, 2017 02:39 - CONCLUSION: 1. Uncomplicated line placement. No evidence of pneumothorax. Gareth Escalante MD Abdomen X-Ray 04/27/17 Signed Impressions: Service Date/Time: Thursday, April 27, 2017 13:09 - CONCLUSION: 1. The oral contrast material outlines the duodenal C-loop. No abnormal extravasation is identified. Feeding tube is likely within the distal stomach. 2. Persistent abnormally dilated small bowel in the central abdomen. However, it has improved compared to the earlier CT. Lex Malik MD Chest X-Ray 04/26/172140 Signed Impressions: Service Date/Time: Wednesday, April 26, 2017 21:46 - CONCLUSION: 1. There is airspace consolidation in the peripheral left midlung zone. Although nonspecific this could represent an infectious process/pneumonia in the appropriate clinical setting. 2. Mild consolidation versus atelectasis in the right lower lung zone. Lex Malik MD Abdomen/Pelvis CT 04/26/172140 Signed Impressions: Service Date/Time: Thursday, April 27, 2017 00:18 - CONCLUSION: 1. Small bowel dilatation which may reflect ileus or obstruction. Followup examination is recommended if clinically indicated. Gareth Escalante MD PHYSICAL EXAM GENERAL: No acute distress. Awake, alert and oriented. HEENT: No icterus. Oropharynx, moist mucosa. No lesions. NECK: Supple. No adenopathy. LUNGS: Rhonchi at R. lung base. HEART: Regular S1 and S2. No murmurs, rubs or gallops. ABDOMEN: Bulge at the lower abdomen in the umbilicus area where the PEG tube exits the abdomen. No drainage visible around the PEG tube. No erythema. The abdomen is soft. No palpable mass. EXTREMITIES: No clubbing or cyanosis or edema. SKIN: No rash. PSYCHIATRIC: Calm and cooperative. IMPRESSION 1. Sepsis 2. Pneumonia ESBL klebsiella. - HCAP. Being treated. - CXR has persistent infiltrate at upper lobes. 3. Abdominal pain and PEG tube malfunction. 4. Leukocytosis secondary to sepsis. Treated and improved. 5. Aspiration pneumonia. 6. Acute renal disease. 7. Candiduria. Treated. RECOMMENDATIONS 1. Continue Meropenem. 2. Repeat sputum culture. 3. Monitor clinical status. Gautam Yanez MD May 04, 2017 14:07
[2017-05-04] MEDS ORDERED: ALTEPLASE RECOMBINANT 2 MG VIAL INTRACATH PRN (14:30)
[2017-05-04] MEDS: TAMSULOSIN HCL 0.4 MG CAP PO SCH (22:05)
[2017-05-05] VITALS (9 sets, daily range): BP systolic 107–137; BP diastolic 59–83; PULSE 69–93; RESP 15–18; TEMP 97.8–98.5; O2SAT 91–98
[2017-05-05] MEDS: CHLORHEXIDINE GLUCONATE 2 % 1 PACK (2 CLOTHS) TOP SCH (01:49)
[2017-05-05] MEDS: HYDROmorphone HCL PF 0.5 MG/0.5 ML SYRINGE IV PUSH PRN ×5 (01:51→21:34)
[2017-05-05] MEDS: METOCLOPRAMIDE HCL 10 MG/2 ML VIAL IV PUSH SCH ×3 (06:16→21:34)
[2017-05-05] MEDS: HEPARIN SODIUM - SQ 10,000 UNITS/ML VIAL SQ SCH ×3 (06:16→21:35)
[2017-05-05] MEDS: ACETAMINOPHEN/HYDROcodone 325 MG/10 MG TAB PO PRN ×3 (06:17→15:55)
[2017-05-05] MEDS: MEROPENEM INJ 1,000 MG in SODIUM CHLORIDE 0.9% INJ 100 ML IV SCH ×3 (06:18→21:39)
[2017-05-05] MEDS: FREE WATER G-TUBE SCH ×3 (06:18→15:56)
[2017-05-05] MEDS: PANTOPRAZOLE SODIUM 40 MG VIAL IV PUSH SCH (08:28)
[2017-05-05] MEDS: BUDESONIDE-FORMOTEROL 160/4.5 MCG INHALER INH SCH ×2 (08:28→21:00)
[2017-05-05] MEDS: SODIUM CHLORIDE 0.9% FLUSH 10 ML FLUSH IV FLUSH SCH ×2 (08:28→21:00)
[2017-05-05] MEDS: LACTOBACILLUS ACIDOPHILUS TAB PO SCH ×2 (08:28→21:38)
[2017-05-05] MEDS: VITAMINS A & D OINT 60 GM TUBE TOPICAL SCH ×2 (12:43→21:00)
--- NOTE | 2017-05-05 12:52 | HHI.PR ---
Subjective Remarks Follow-up for HCAP due to ESBL Klebsiella. Patient is currently doing well. Denies any chest pain, shortness of breath, fever or chills. He is tolerating tube feed well. He is currently on meropenem. He states that he would like to go home instead of SNF. Objective Vitals Vital Signs Date Time Temp Pulse Resp B/P (MAP) Pulse Ox O2 Delivery O2 Flow Rate FiO2 05/05/17 10:41 76 05/05/17 10:35 Room Air 05/05/17 08:00 98.2 72 15 107/66 (80) 91 05/05/17 04:00 98.0 92 18 120/69 (86) 98 05/05/17 03:46 78 05/05/17 02:24 18 05/05/17 01:00 97.8 93 18 130/83 (99) 98 05/04/17 23:23 19 05/04/17 22:30 Nasal Cannula 05/04/17 21:52 97 Nasal Cannula 1.00 05/04/17 20:00 98.3 95 18 146/76 (99) 96 05/04/17 19:31 93 21 05/04/17 16:11 98.3 83 18 116/67 (83) 93 I/O 05/04/17 05/04/17 05/04/17 05/05/17 05/05/17 05/05/17 07:00 15:00 23:00 07:00 15:00 23:00 Output Total 1000 ml 1000 ml 1900 ml Balance -1000 ml -1000 ml -1900 ml Output Urine Total 1000 ml 1000 ml 1900 ml # Bowel Movements 1 Result Diagram: 05/02/17 0523 05/04/17 0725 Imaging Last Impressions Chest X-Ray 05/03/17 0000 Signed Impressions: Service Date/Time: Wednesday, May 03, 2017 15:17 - CONCLUSION: Unchanged bilateral upper lobe pulmonary infiltrates. Polo Moore Jr., MD Modified Barium Swallow 04/28/17 0000 Signed Impressions: Service Date/Time: Friday, April 28, 2017 13:22 - CONCLUSION: Please see consultation from speech pathology. Bear Olson MD FACR Abdomen X-Ray 04/27/17 0000 Signed Impressions: Service Date/Time: Thursday, April 27, 2017 13:09 - CONCLUSION: 1. The oral contrast material outlines the duodenal C-loop. No abnormal extravasation is identified. Feeding tube is likely within the distal stomach. 2. Persistent abnormally dilated small bowel in the central abdomen. However, it has improved compared to the earlier CT. Lex Malik MD Abdomen/Pelvis CT 04/26/172 Signed Impressions: Service Date/Time: Thursday, April 27, 2017 00:18 - CONCLUSION: 1. Small bowel dilatation which may reflect ileus or obstruction. Followup examination is recommended if clinically indicated. Gareth Escalante MD Objective Remarks GENERAL: Alert, oriented 3, NAD SKIN: Warm and dry. HEAD: Normocephalic. EYES: No scleral icterus. No injection or drainage. NECK: Supple, trachea midline. No JVD or lymphadenopathy. CARDIOVASCULAR: Regular rate and rhythm without murmurs, gallops, or rubs. RESPIRATORY: Breath sounds equal bilaterally. No accessory muscle use. GASTROINTESTINAL: Abdomen soft, non-tender, nondistended. MUSCULOSKELETAL: No cyanosis, or edema. BACK: Nontender without obvious deformity. No CVA tenderness. Procedures None Date of Insertion: Apr 26, 2017 Line: Central Venous Catheter Side: Right Location: Internal, Jugular (vasoactive medication) A/P Problem List: (1) PEG (percutaneous endoscopic gastrostomy) status ICD Code: Z93.1 - Gastrostomy status Status: Chronic (2) Pseudomonas pneumonia ICD Code: J15.1 - Pneumonia due to Pseudomonas Status: Acute (3) Hypokalemia ICD Code: E87.6 - Hypokalemia Status: Acute (4) Ashley sepsis ICD Code: B37.7 - Candidal sepsis Status: Acute (5) Sepsis due to urinary tract infection ICD Code: A41.9 - Sepsis, unspecified organism; N39.0 - Urinary tract infection , site not specified Status: Acute (6) PEG tube malfunction ICD Code: K94.23 - Gastrostomy malfunction Status: Acute (7) Bladder outflow obstruction ICD Code: N32.0 - Bladder-neck obstruction Status: Acute Assessment and Plan Patient is a 72-year-old male with a history of sepsis, HTN, COPD, prostate cancer, bladder outlet obstruction, ventral hernia with mesh placement who came into the hospital with a sudden onset of nausea and vomiting and was leaking stool surrounding his PEG tube. Ileus vs Obstruction Abdominal Pain, nausea, vomiting CT of the abdomen and pelvis showed 1. Small bowel dilatation which may reflect ileus or obstruction. General surgery has been following the patient. Abdominal x-ray showed: Oral contrast material supplies the duodenal C-loop, no extravasation was identified. Feeding tube is likely within the distal stomach ; Persistent abnormally dilated small bowel in the central abdomen; However has improved compared to the earlier CT. - Continue with tube feeds with a goal of 45 cc an hour, with water flushes to keep it from clogging. - Continue Reglan, IV fluids for hydration, continue Zofran. Sepsis, pneumonia HCAP secondary to Klebsiella ESBL - Sputum culture has Klebsiella ESBL. Leukocytosis has improved - Continue meropenem for ESBL lab. Diflucan discontinued on 05/03/2017. - Continue O2 nasal cannula PRN, DuoNeb's. Dysphagia, PEG tube placement Modified barium swallow noted aspiration. - Continue to keep patient nothing by mouth with tube feeding. - Speech therapy. - Monitor for aspiration. - probiotics started per family request. COPD/ Pulmonary fibrosis - Stable on room air at this time. - Continue with Symbicort twice a day. - Continue with DuoNeb scheduled and when necessary. Bladder outlet obstruction - Hammond in place. - Continue Flomax. - continue Hammond catheter. - If patient is able to increase activity may need to try bladder training. Full code. Heparin SQ. Discharge plan: Patient wants to go home NOT SNF. We will wait for ID recommendations. Chantal Arana DO May 05, 2017 12:52 pm
[2017-05-05] MEDS: NAPHAZOLINE HCL 0.012% OPHT SOLN 15 ML BOTTLE EACH EYE PRN (12:58)
[2017-05-05] MEDS: RESP: ALBUTEROL 2.5 MG/IPRATROPIUM 0.5 MG NEB (PRN) NEB (20:53)
[2017-05-05] MEDS: TAMSULOSIN HCL 0.4 MG CAP PO SCH (21:35)
[2017-05-05] MEDS: DIAZEPAM 5 MG TAB PO PRN (21:35)
[2017-05-06] VITALS (7 sets, daily range): BP systolic 104–146; BP diastolic 53–74; PULSE 64–102; RESP 16–20; TEMP 97.5–99.2; O2SAT 92–95
[2017-05-06] MEDS: HYDROmorphone HCL PF 0.5 MG/0.5 ML SYRINGE IV PUSH PRN ×5 (02:12→22:21)
[2017-05-06] MEDS: CHLORHEXIDINE GLUCONATE 2 % 1 PACK (2 CLOTHS) TOP SCH (04:00)
[2017-05-06] MEDS: FREE WATER G-TUBE SCH ×4 (06:00→18:16)
[2017-05-06] MEDS: HEPARIN SODIUM - SQ 10,000 UNITS/ML VIAL SQ SCH ×3 (06:02→22:25)
[2017-05-06] MEDS: MEROPENEM INJ 1,000 MG in SODIUM CHLORIDE 0.9% INJ 100 ML IV SCH ×3 (06:02→22:25)
[2017-05-06] MEDS: METOCLOPRAMIDE HCL 10 MG/2 ML VIAL IV PUSH SCH ×3 (06:02→22:26)
[2017-05-06] MEDS: PANTOPRAZOLE SODIUM 40 MG VIAL IV PUSH SCH (08:53)
[2017-05-06] MEDS: ACETAMINOPHEN/HYDROcodone 325 MG/10 MG TAB PO PRN ×3 (08:53→19:28)
[2017-05-06] MEDS: LACTOBACILLUS ACIDOPHILUS TAB PO SCH ×2 (08:53→19:37)
[2017-05-06] MEDS: SODIUM CHLORIDE 0.9% FLUSH 10 ML FLUSH IV FLUSH SCH ×2 (08:54→19:37)
[2017-05-06] MEDS: BUDESONIDE-FORMOTEROL 160/4.5 MCG INHALER INH SCH ×2 (08:54→19:37)
[2017-05-06] MEDS: RESP: ALBUTEROL 2.5 MG/IPRATROPIUM 0.5 MG NEB (PRN) NEB (11:10)
--- NOTE | 2017-05-06 13:21 | HHI.IDPN ---
Note Infectious Disease Note Patient says he is coughing up less sputum. No distress. Afebrile. Denies SOB. Admitted with nausea, vomiting and abdominal pain. The patient was noted to have leakage of fecal matter around his PEG tube. He was evaluated in the emergency department yesterday and was noted to have hypotension with a blood pressure of 60/40 and a white count of 32.1 along with a left shift including 33% bands. The patient has been fed via the PEG tube. PAST MEDICAL HISTORY 1. Hypertension 2. Hyperlipidemia 3. COPD 4. Prostate cancer 5. Ventral hernia 6. Appendectomy 7. Perforated gastric ulcer repair 8. PEG tube placement. ALLERGIES NO KNOWN DRUG ALLERGIES. MEDICATIONS 1. Meropenem. SOCIAL HISTORY No tobacco, no alcohol, no illicit drugs. OBJECTIVE: Microbiology Date/Time Source Procedure Growth Status 05/04/17 14:50 Sputum Expectorated Sputum Gram Stain - Final Resulted 05/04/17 14:50 Sputum Culture - Preliminary Pseudomonas Aeruginosa Resulted Vital Signs Date Time Temp Pulse Resp B/P (MAP) Pulse Ox O2 Delivery O2 Flow Rate FiO2 05/06/17 12:16 99.2 102 20 104/53 (70) 94 05/06/17 10:24 Room Air 05/06/17 08:50 98.0 66 20 137/67 (90) 94 05/06/17 05:57 97.5 69 18 146/64 (91) 93 05/06/17 01:30 98.7 89 18 122/58 (79) 92 05/05/17 22:01 98.5 69 18 129/71 (90) 93 05/05/17 20:53 94 21 05/05/17 19:00 Room Air 21 05/05/17 16:00 98.4 70 15 137/64 (88) 91 IMAGING: Chest X-Ray 05/03/17 0000 Signed Impressions: Service Date/Time: Wednesday, May 03, 2017 15:17 - CONCLUSION: Unchanged bilateral upper lobe pulmonary infiltrates. Polo Moore Jr., MD Modified Barium Swallow 04/28/17 0000 Signed Impressions: Service Date/Time: Friday, April 28, 2017 13:22 - CONCLUSION: Please see consultation from speech pathology. Bear Olson MD FACR Chest X-Ray 04/27/17 0000 Signed Impressions: Service Date/Time: Thursday, April 27, 2017 02:39 - CONCLUSION: 1. Uncomplicated line placement. No evidence of pneumothorax. Gareth Escalante MD Abdomen X-Ray 04/27/17 0000 Signed Impressions: Service Date/Time: Thursday, April 27, 2017 13:09 - CONCLUSION: 1. The oral contrast material outlines the duodenal C-loop. No abnormal extravasation is identified. Feeding tube is likely within the distal stomach. 2. Persistent abnormally dilated small bowel in the central abdomen. However, it has improved compared to the earlier CT. Lex Malik MD Chest X-Ray 04/26/172140 Signed Impressions: Service Date/Time: Wednesday, April 26, 2017 21:46 - CONCLUSION: 1. There is airspace consolidation in the peripheral left midlung zone. Although nonspecific this could represent an infectious process/pneumonia in the appropriate clinical setting. 2. Mild consolidation versus atelectasis in the right lower lung zone. Lex Malik MD Abdomen/Pelvis CT 04/26/172140 Signed Impressions: Service Date/Time: Thursday, April 27, 2017 00:18 - CONCLUSION: 1. Small bowel dilatation which may reflect ileus or obstruction. Followup examination is recommended if clinically indicated. Gareth Escalante MD PHYSICAL EXAM GENERAL: No acute distress. Awake, alert and oriented. HEENT: No icterus. Oropharynx, moist mucosa. No lesions. NECK: Supple. No adenopathy. LUNGS: Rhonchi at R upper lung. Decreased breath soundsatthe left. HEART: Regular S1 and S2. No murmurs, rubs or gallops. ABDOMEN: Bulge at the lower abdomen in the umbilicus area where the PEG tube exits the abdomen. No drainage visible around the PEG tube. No erythema. The abdomen is soft. No palpable mass. EXTREMITIES: No clubbing or cyanosis or edema. SKIN: No rash. PSYCHIATRIC: Calm and cooperative. IMPRESSION 1. Sepsis 2. Pneumonia ESBL klebsiella. - HCAP. Being treated. - CXR 05/03 had persistent infiltrate at upper lobes. Repeat sputum culture has pseudomonas. 3. Abdominal pain and PEG tube malfunction. Improved. 4. Leukocytosis secondary to sepsis. Improved. 5. Aspiration pneumonia. 6. Acute renal disease. 7. Candiduria. Treated. RECOMMENDATIONS 1. Continue Meropenem. 2. Follow sensitivity of the pseudomonas in the sputum culture. 3. Prior culture had pseudomonas fairly resistant. 4. Repeat CXR. 5. Dose of Tobramycin today. 6. Monitor clinical status. Gautam Yanez MD May 06, 2017 13:21
[2017-05-06] MEDS: VITAMINS A & D OINT 60 GM TUBE TOPICAL SCH ×2 (13:47→19:37)
--- NOTE | 2017-05-06 13:57 | RADRPT ---
EXAM DATE/TIME: 05/06/2017 13:25 [facility] COMPARISON: CHEST SINGLE AP, May 03, 2017, 15:17. INDICATIONS : Evaluate for pneumoina. MEDICAL HISTORY : Carcinoma, prostatic. Chronic obstructive pulmonary disease. Hypertension. Congestive heart failu re. Gastroesophageal reflux disease.Diabetes. SURGICAL HISTORY : Appendectomy. Hernia repair. Peg tube. ENCOUNTER: Subsequent ACUITY: 2 weeks PAIN SCORE: 6/10 LOCATION: Bilateral chest FINDINGS: 2 portable frontal views of the chest show persistent parenchymal consolidations involving both upper lobes. These are unchanged. No effusions. Heart is normal in size. Right-sided central line noted. O ld trauma involving the proximal left humerus. CONCLUSION: Unchanged bilateral upper lobe infiltrates. Polo Moore Jr., MD on May 06, 2017 at 13:54 Board Certified Radiologist. This report was verified electronically.
--- NOTE | 2017-05-06 15:27 | HHI.PR ---
Subjective Remarks Follow-up for HCAP due to ESBL Klebsiella. Patient is doing well. No fever, chills. No CP, SOB. Objective Vitals Vital Signs Date Time Temp Pulse Resp B/P (MAP) Pulse Ox O2 Delivery O2 Flow Rate FiO2 05/06/17 15:19 65 05/06/17 12:16 99.2 102 20 104/53 (70) 94 05/06/17 10:24 Room Air 05/06/17 08:50 98.0 66 20 137/67 (90) 94 05/06/17 05:57 97.5 69 18 146/64 (91) 93 05/06/17 01:30 98.7 89 18 122/58 (79) 92 05/05/17 22:01 98.5 69 18 129/71 (90) 93 05/05/17 20:53 94 21 05/05/17 19:00 Room Air 21 05/05/17 16:00 98.4 70 15 137/64 (88) 91 I/O 05/05/17 05/05/17 05/05/17 05/06/17 05/06/17 05/06/17 06:59 14:59 22:59 06:59 14:59 22:59 Intake Total 500 ml 400 ml Output Total 1900 ml 1200 ml 1050 ml Balance -1900 ml 500 ml 400 ml -1200 ml -1050 ml IV Total 100 ml Other 400 ml 400 ml Output Urine Total 1900 ml 1200 ml 1050 ml Result Diagram: 05/02/17 0523 05/04/17 0725 Imaging Last Impressions Chest X-Ray 05/06/17 0000 Signed Impressions: Service Date/Time: April 13:25 - CONCLUSION: Unchanged bilateral upper lobe infiltrates. Polo Moore Jr., MD Modified Barium Swallow 04/28/17 0000 Signed Impressions: Service Date/Time: Friday, April 28, 2017 13:22 - CONCLUSION: Please see consultation from speech pathology. Bear Olson MD FACR Abdomen X-Ray 04/27/17 0000 Signed Impressions: Service Date/Time: Thursday, April 27, 2017 13:09 - CONCLUSION: 1. The oral contrast material outlines the duodenal C-loop. No abnormal extravasation is identified. Feeding tube is likely within the distal stomach. 2. Persistent abnormally dilated small bowel in the central abdomen. However, it has improved compared to the earlier CT. Lex Malik MD Abdomen/Pelvis CT 04/26/17 214 Signed Impressions: Service Date/Time: Thursday, April 27, 2017 00:18 - CONCLUSION: 1. Small bowel dilatation which may reflect ileus or obstruction. Followup examination is recommended if clinically indicated. Gareth Escalante MD Objective Remarks GENERAL: Alert, oriented 3, NAD SKIN: Warm and dry. HEAD: Normocephalic. EYES: No scleral icterus. No injection or drainage. NECK: Supple, trachea midline. No JVD or lymphadenopathy. CARDIOVASCULAR: Regular rate and rhythm without murmurs, gallops, or rubs. RESPIRATORY: Breath sounds equal bilaterally. No accessory muscle use. GASTROINTESTINAL: Abdomen soft, non-tender, nondistended. MUSCULOSKELETAL: No cyanosis, or edema. BACK: Nontender without obvious deformity. No CVA tenderness. Procedures None Date of Insertion: Apr 26, 2017 Line: Central Venous Catheter Side: Right Location: Internal, Jugular (vasoactive medication) A/P Problem List: (1) PEG (percutaneous endoscopic gastrostomy) status ICD Code: Z93.1 - Gastrostomy status Status: Chronic (2) Pseudomonas pneumonia ICD Code: J15.1 - Pneumonia due to Pseudomonas Status: Acute (3) Hypokalemia ICD Code: E87.6 - Hypokalemia Status: Acute (4) Ashley sepsis ICD Code: B37.7 - Candidal sepsis Status: Acute (5) Sepsis due to urinary tract infection ICD Code: A41.9 - Sepsis, unspecified organism; N39.0 - Urinary tract infection , site not specified Status: Acute (6) PEG tube malfunction ICD Code: K94.23 - Gastrostomy malfunction Status: Acute (7) Bladder outflow obstruction ICD Code: N32.0 - Bladder-neck obstruction Status: Acute Assessment and Plan Patient is a 72-year-old male with a history of sepsis, HTN, COPD, prostate cancer, bladder outlet obstruction, ventral hernia with mesh placement who came into the hospital with a sudden onset of nausea and vomiting and was leaking stool surrounding his PEG tube. Ileus vs Obstruction Abdominal Pain, nausea, vomiting CT of the abdomen and pelvis showed 1. Small bowel dilatation which may reflect ileus or obstruction. General surgery has been following the patient. Abdominal x-ray showed: Oral contrast material supplies the duodenal C-loop, no extravasation was identified. Feeding tube is likely within the distal stomach ; Persistent abnormally dilated small bowel in the central abdomen; However has improved compared to the earlier CT. - Continue with tube feeds with a goal of 45 cc an hour, with water flushes to keep it from clogging. - Continue Reglan, IV fluids for hydration, continue Zofran. Sepsis, pneumonia HCAP secondary to Klebsiella ESBL - Sputum culture has Klebsiella ESBL. Leukocytosis has improved - Continue meropenem for ESBL lab. Diflucan discontinued on 05/03/2017. - Per ID Tobramycin today. - Continue O2 nasal cannula PRN, DuoNeb's. Dysphagia, PEG tube placement Modified barium swallow noted aspiration. - Continue to keep patient nothing by mouth with tube feeding. - Speech therapy. - Monitor for aspiration. - probiotics started per family request. COPD/ Pulmonary fibrosis - Stable on room air at this time. - Continue with Symbicort twice a day. - Continue with DuoNeb scheduled and when necessary. Bladder outlet obstruction - Hammond in place. - Continue Flomax. - continue Hammond catheter. - If patient is able to increase activity may need to try bladder training. Full code. Heparin SQ. Discharge plan: Depending on ID recommendations, patient will likely need home health and continue IV abx. Chantal Arana DO May 06, 2017 3:27 pm
[2017-05-06] MEDS: TOBRAMYCIN INJ 400 MG in SODIUM CHLORIDE 0.9% INJ 100 ML IV SCH (15:29)
[2017-05-06] MEDS: SODIUM CHLORIDE 0.9% FLUSH 10 ML FLUSH IV FLUSH PRN ×2 (15:35→18:17)
[2017-05-06] MEDS: DIAZEPAM 5 MG TAB PO PRN (19:37)
[2017-05-06] MEDS: TAMSULOSIN HCL 0.4 MG CAP PO SCH (19:37)
[2017-05-07] VITALS (8 sets, daily range): BP systolic 117–149; BP diastolic 64–81; PULSE 71–90; RESP 16–20; TEMP 97.9–98.2; O2SAT 93–95
[2017-05-07] MEDS: HYDROmorphone HCL PF 0.5 MG/0.5 ML SYRINGE IV PUSH PRN ×6 (00:58→21:37)
[2017-05-07] MEDS: CHLORHEXIDINE GLUCONATE 2 % 1 PACK (2 CLOTHS) TOP SCH (04:00)
[2017-05-07] MEDS: MEROPENEM INJ 1,000 MG in SODIUM CHLORIDE 0.9% INJ 100 ML IV SCH (05:27)
[2017-05-07] MEDS: HEPARIN SODIUM - SQ 10,000 UNITS/ML VIAL SQ SCH ×3 (05:28→21:35)
[2017-05-07] MEDS: METOCLOPRAMIDE HCL 10 MG/2 ML VIAL IV PUSH SCH ×3 (05:28→21:35)
[2017-05-07] MEDS: FREE WATER G-TUBE SCH ×5 (05:28→23:30)
[2017-05-07 06:18] LABS: POTASSIUM 4.8 MEQ/L (3.5-5.1)
[2017-05-07] MEDS: VITAMINS A & D OINT 60 GM TUBE TOPICAL SCH ×2 (08:38→21:36)
[2017-05-07] MEDS: PANTOPRAZOLE SODIUM 40 MG VIAL IV PUSH SCH (08:38)
[2017-05-07] MEDS: LACTOBACILLUS ACIDOPHILUS TAB PO SCH ×2 (08:38→21:33)
[2017-05-07] MEDS: BUDESONIDE-FORMOTEROL 160/4.5 MCG INHALER INH SCH ×2 (08:38→21:36)
[2017-05-07] MEDS: SODIUM CHLORIDE 0.9% FLUSH 10 ML FLUSH IV FLUSH SCH ×2 (08:38→21:36)
[2017-05-07] MEDS: ACETAMINOPHEN/HYDROcodone 325 MG/10 MG TAB PO PRN ×4 (10:45→23:29)
--- NOTE | 2017-05-07 11:59 | HHI.IDPN ---
Note Infectious Disease Note Patient sounds congested and is coughing white pllem. . No distress. Afebrile. CXR shows no change. Sputum culture has pseudomonas (R ) Admitted with nausea, vomiting and abdominal pain. The patient was noted to have leakage of fecal matter around his PEG tube. He was evaluated in the emergency department yesterday and was noted to have hypotension with a blood pressure of 60/40 and a white count of 32.1 along with a left shift including 33% bands. The patient has been fed via the PEG tube. PAST MEDICAL HISTORY 1. Hypertension 2. Hyperlipidemia 3. COPD 4. Prostate cancer 5. Ventral hernia 6. Appendectomy 7. Perforated gastric ulcer repair 8. PEG tube placement. ALLERGIES NO KNOWN DRUG ALLERGIES. MEDICATIONS 1. Meropenem. 2. Tobramycin. SOCIAL HISTORY No tobacco, no alcohol, no illicit drugs. OBJECTIVE: Vital Signs Date Time Temp Pulse Resp B/P (MAP) Pulse Ox O2 Delivery O2 Flow Rate FiO2 05/07/17 10:08 98.0 90 20 144/81 (102) 95 05/07/17 06:13 98.0 83 16 143/76 (98) 93 05/07/17 01:27 98.0 76 16 149/81 (103) 93 05/06/17 21:16 98.0 72 16 115/71 (86) 94 05/06/17 19:00 Room Air 05/06/17 17:06 98.6 64 20 143/74 (97) 95 05/06/17 15:19 65 05/06/17 12:16 99.2 102 20 104/53 (70) 94 Laboratory Tests Test 05/07/17 05:29 Blood Urea Nitrogen 13 MG/DL Creatinine 0.63 MG/DL Random Glucose 125 MG/DL Calcium Level 8.7 MG/DL Sodium Level 133 MEQ/L Potassium Level 4.8 MEQ/L Chloride Level 98 MEQ/L Carbon Dioxide Level 30.0 MEQ/L Anion Gap 5 MEQ/L Estimat Glomerular Filtration Rate 126 ML/MIN Microbiology Date/Time Source Procedure Growth Status 05/04/17 14:50 Sputum Expectorated Sputum Gram Stain - Final Complete 05/04/17 14:50 Sputum Culture - Final Pseudomonas Aeruginosa Complete IMAGING: Chest X-Ray 05/06/17 0000 Signed Impressions: Service Date/Time: April 13:25 - CONCLUSION: Unchanged bilateral upper lobe infiltrates. Polo Moore Jr., MD Chest X-Ray 05/03/17 Signed Impressions: Service Date/Time: Wednesday, May 03, 2017 15:17 - CONCLUSION: Unchanged bilateral upper lobe pulmonary infiltrates. Polo Moore Jr., MD Modified Barium Swallow 04/28/17 Signed Impressions: Service Date/Time: Friday, April 28, 2017 13:22 - CONCLUSION: Please see consultation from speech pathology. Bear Olson MD FACR Chest X-Ray 04/27/17 Signed Impressions: Service Date/Time: Thursday, April 27, 2017 02:39 - CONCLUSION: 1. Uncomplicated line placement. No evidence of pneumothorax. Gareth Escalante MD Abdomen X-Ray 04/27/17 Signed Impressions: Service Date/Time: Thursday, April 27, 2017 13:09 - CONCLUSION: 1. The oral contrast material outlines the duodenal C-loop. No abnormal extravasation is identified. Feeding tube is likely within the distal stomach. 2. Persistent abnormally dilated small bowel in the central abdomen. However, it has improved compared to the earlier CT. Lex Malik MD Chest X-Ray 04/26/172140 Signed Impressions: Service Date/Time: Wednesday, April 26, 2017 21:46 - CONCLUSION: 1. There is airspace consolidation in the peripheral left midlung zone. Although nonspecific this could represent an infectious process/pneumonia in the appropriate clinical setting. 2. Mild consolidation versus atelectasis in the right lower lung zone. Lex Malik MD Abdomen/Pelvis CT 04/26/172140 Signed Impressions: Service Date/Time: Thursday, April 27, 2017 00:18 - CONCLUSION: 1. Small bowel dilatation which may reflect ileus or obstruction. Followup examination is recommended if clinically indicated. Gareth Escalante MD PHYSICAL EXAM GENERAL: No acute distress. HEENT: No icterus. Oropharynx, moist mucosa. No lesions. NECK: Supple. No adenopathy. LUNGS: coarse Rhonchi at R upper lung. HEART: Regular S1 and S2. No murmurs, rubs or gallops. ABDOMEN: Bulge at the lower abdomen in the umbilicus area where the PEG tube exits the abdomen. No drainage visible around the PEG tube. No erythema. The abdomen is soft. No palpable mass. EXTREMITIES: No clubbing or cyanosis or edema. SKIN: No rash. PSYCHIATRIC: Calm and cooperative. IMPRESSION 1. Sepsis 2. Pneumonia previously ESBL klebsiella. - HCAP. Being treated. - CXR 05/06 had persistent infiltrate at upper lobes. Repeat sputum culture has pseudomonas (R). 3. Abdominal pain and PEG tube malfunction. Improved. 4. Leukocytosis secondary to sepsis. Improved. 5. Aspiration pneumonia. 6. Acute renal disease. 7. Candiduria. Treated. RECOMMENDATIONS 1. Stop Meropenem. 2. Continue Tobramycin. Monitor renal function closely. 3. Start Piperacillin/Tobramycin. 4. Pulmonary consult. Continue IV antibiotics through the weekend in hospital. Gautam Yanez MD May 07, 2017 11:59
--- NOTE | 2017-05-07 12:02 | HHI.PR ---
Subjective Remarks Follow-up for HCAP due to ESBL Klebsiella. Patient is currently doing well. No fever or chills. He is not coughing a lot. He inquires about going home. Objective Vitals Vital Signs Date Time Temp Pulse Resp B/P (MAP) Pulse Ox O2 Delivery O2 Flow Rate FiO2 05/07/17 10:08 98.0 90 20 144/81 (102) 95 05/07/17 06:13 98.0 83 16 143/76 (98) 93 05/07/17 01:27 98.0 76 16 149/81 (103) 93 05/06/17 21:16 98.0 72 16 115/71 (86) 94 05/06/17 19:00 Room Air 05/06/17 17:06 98.6 64 20 143/74 (97) 95 05/06/17 15:19 65 05/06/17 12:16 99.2 102 20 104/53 (70) 94 I/O 05/06/17 05/06/17 05/06/17 05/07/17 05/07/17 05/07/17 07:00 15:00 23:00 07:00 15:00 23:00 Intake Total 820 ml 2668 ml Output Total 1200 ml 1050 ml Balance -1200 ml -230 ml 2668 ml Intake Oral 720 ml 1200 ml Tube Feeding 1468 ml Other 100 ml Output Urine Total 1200 ml 1050 ml Result Diagram: 05/07/17 0529 Imaging Last Impressions Chest X-Ray 05/06/17 0000 Signed Impressions: Service Date/Time: April 13:25 - CONCLUSION: Unchanged bilateral upper lobe infiltrates. Polo Moore Jr., MD Modified Barium Swallow 04/28/17 0000 Signed Impressions: Service Date/Time: Friday, April 28, 2017 13:22 - CONCLUSION: Please see consultation from speech pathology. Bear Olson MD FACR Abdomen X-Ray 04/27/17 0000 Signed Impressions: Service Date/Time: Thursday, April 27, 2017 13:09 - CONCLUSION: 1. The oral contrast material outlines the duodenal C-loop. No abnormal extravasation is identified. Feeding tube is likely within the distal stomach. 2. Persistent abnormally dilated small bowel in the central abdomen. However, it has improved compared to the earlier CT. Lex Malik MD Abdomen/Pelvis CT 04/26/17 2147 Signed Impressions: Service Date/Time: Thursday, April 27, 2017 00:18 - CONCLUSION: 1. Small bowel dilatation which may reflect ileus or obstruction. Followup examination is recommended if clinically indicated. Gareth Escalante MD Objective Remarks GENERAL: Alert, oriented 3, NAD SKIN: Warm and dry. HEAD: Normocephalic. EYES: No scleral icterus. No injection or drainage. NECK: Supple, trachea midline. No JVD or lymphadenopathy. CARDIOVASCULAR: Regular rate and rhythm without murmurs, gallops, or rubs. RESPIRATORY: Breath sounds equal bilaterally. No accessory muscle use. GASTROINTESTINAL: Abdomen soft, non-tender, nondistended. MUSCULOSKELETAL: No cyanosis, or edema. BACK: Nontender without obvious deformity. No CVA tenderness. Procedures None Date of Insertion: Apr 26, 2017 Line: Central Venous Catheter Side: Right Location: Internal, Jugular (vasoactive medication) A/P Problem List: (1) PEG (percutaneous endoscopic gastrostomy) status ICD Code: Z93.1 - Gastrostomy status Status: Chronic (2) Pseudomonas pneumonia ICD Code: J15.1 - Pneumonia due to Pseudomonas Status: Acute (3) Hypokalemia ICD Code: E87.6 - Hypokalemia Status: Acute (4) Ashley sepsis ICD Code: B37.7 - Candidal sepsis Status: Acute (5) Sepsis due to urinary tract infection ICD Code: A41.9 - Sepsis, unspecified organism; N39.0 - Urinary tract infection , site not specified Status: Acute (6) PEG tube malfunction ICD Code: K94.23 - Gastrostomy malfunction Status: Acute (7) Bladder outflow obstruction ICD Code: N32.0 - Bladder-neck obstruction Status: Acute Assessment and Plan Patient is a 72-year-old male with a history of sepsis, HTN, COPD, prostate cancer, bladder outlet obstruction, ventral hernia with mesh placement who came into the hospital with a sudden onset of nausea and vomiting and was leaking stool surrounding his PEG tube. Ileus vs Obstruction Abdominal Pain, nausea, vomiting CT of the abdomen and pelvis showed 1. Small bowel dilatation which may reflect ileus or obstruction. General surgery has been following the patient. Abdominal x-ray showed: Oral contrast material supplies the duodenal C-loop, no extravasation was identified. Feeding tube is likely within the distal stomach ; Persistent abnormally dilated small bowel in the central abdomen; However has improved compared to the earlier CT. - Continue with tube feeds with a goal of 45 cc an hour, with water flushes to keep it from clogging. - Continue Reglan, IV fluids for hydration, continue Zofran. Sepsis, pneumonia HCAP secondary to Klebsiella ESBL - Sputum culture has Klebsiella ESBL. Leukocytosis has improved - Sputum culture from 04/27/2017 grew ESBL Klebsiella and Pseudomonas. Repeat sputum culture from 05/04/2017 grew Pseudomonas. - Chest x-ray from 05/06/2017, reviewed by me, shows persistent infiltrates. - Discussed with infectious disease. We'll obtain pulmonary consult. - Discontinue central line and insert PICC line today. Dysphagia, PEG tube placement Modified barium swallow noted aspiration. - Continue to keep patient nothing by mouth with tube feeding. - Speech therapy. - Monitor for aspiration. - probiotics started per family request. COPD/ Pulmonary fibrosis - Stable on room air at this time. - Continue with Symbicort twice a day. - Continue with DuoNeb scheduled and when necessary. Bladder outlet obstruction - Hammond in place. - Continue Flomax. - continue Hammond catheter. - If patient is able to increase activity may need to try bladder training. Full code. Heparin SQ. Discharge plan: If patient needs antibiotics multiple times a day, patient's family member can help along with home health nurse. We'll wait for pulmonary input. When okay with pulmonary and infectious disease, we could potentially discharge patient home with home health. Chantal Arana DO May 07, 2017 12:02 pm
[2017-05-07] MEDS: PIPERACIL-TAZO 4.5 GM PREMIX 100 ML IV SCH ×3 (12:03→23:29)
[2017-05-07] MEDS: TOBRAMYCIN INJ 400 MG in SODIUM CHLORIDE 0.9% INJ 100 ML IV SCH (14:42)
[2017-05-07] MEDS: RESP: ALBUTEROL 2.5 MG/IPRATROPIUM 0.5 MG NEB (PRN) NEB ×2 (16:38→19:48)
--- NOTE | 2017-05-07 17:41 | MB ---
cc: MIGUE COOK DATE OF CONSULTATION 05/07/[address] Alex REASON FOR CONSULTATION COPD and pneumonia. PRESENT ILLNESS Mr. Thomason is a 72-year-old male with history of COPD, history of gastric ulcer perforation and PEG tube placement. The patient was admitted into the hospital with nausea and vomiting and ileus and sepsis. He has found to have bilateral pneumonia. His sputum showed that he has Klebsiella ESBL positive and Pseudomonas aeriginosa. The patient is being seen by infectious disease specialist, Dr. Gautam Yanez. He is on antibiotic Tobramycin and Zosyn. He has persistent lung infiltrate. He has cough, not able to bring much phlegm, no fever or chills. No night sweats. PAST MEDICAL HISTORY 1. History of COPD, 2. History of prostate cancer status post radiation treatment 3. Ventral hernia 4. Perforated gastric ulcer 5. PEG tube placement. 6. History of hypertension. MEDICATIONS Currently 1. Zosyn IV. 2. Tobramycin IV. 3. [place] for pain. 4. Symbicort twice a day. 5. Protonix 40 mg a day 6. Heparin 5000 q.12 h. ALLERGIES NO KNOWN DRUG ALLERGIES. SOCIAL HISTORY He is . His ex- lives nearby. He has history of smoking and alcohol abuse which he quit one year ago. 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 FAMILY HISTORY He has one daughter and two grandchildren. REVIEW OF SYSTEMS Denies any seizure, stroke or epilepsy. No DVT or pulmonary embolism. He is normally up, around and active. PHYSICAL EXAMINATION GENERAL: Elderly male mildly short of breath not in acute distress. VITAL SIGNS: Blood pressure 121/64, heart rate 75, respirations 20 HEENT: Pupils are equal and reactive to light. Oral mucosa and nasal mucosa normal. NECK: Supple. JVP not raised. CHEST: Equal air entry. He has scattered rales. CARDIOVASCULAR: S1, S2 normal. ABDOMEN: Benign. He has PEG tube in place. EXTREMITIES: No edema. IMPRESSION 1. Pseudomonas and Klebsiella pneumoniae, has persistent lung infiltrate. 2. COPD. 3. History of perforated gastric ulcer 4. Hypertension. PLAN I discussed with the patient. We will continue his present antibiotic. I will get a CT scan of the chest to see if there is any mucus obstruction or significant bronchiectasis. In that case, he will need bronchoscopy. Continue his present antibiotic per ID. Continue aerosol treatment. He is stable on room air. Further treatment will depend on the course in the hospital. Thank you, Dr. Cabral, for this consultation. MD ALBERTO Hong/ /5:23 PM /5:31 PM [place]
[2017-05-07] MEDS: TAMSULOSIN HCL 0.4 MG CAP PO SCH ×2 (21:00→21:33)
[2017-05-08] VITALS (8 sets, daily range): BP systolic 101–125; BP diastolic 61–75; PULSE 66–74; RESP 17–21; TEMP 97.4–98; O2SAT 94–96
[2017-05-08] MEDS: SODIUM CHLORIDE 0.9% FLUSH 10 ML FLUSH IV FLUSH PRN ×2 (02:10→05:16)
[2017-05-08] MEDS: HYDROmorphone HCL PF 0.5 MG/0.5 ML SYRINGE IV PUSH PRN ×5 (02:10→22:49)
[2017-05-08] MEDS: CHLORHEXIDINE GLUCONATE 2 % 1 PACK (2 CLOTHS) TOP SCH (04:00)
[2017-05-08] MEDS: ACETAMINOPHEN/HYDROcodone 325 MG/10 MG TAB PO PRN ×5 (05:08→22:00)
[2017-05-08] MEDS: HEPARIN SODIUM - SQ 10,000 UNITS/ML VIAL SQ SCH ×3 (05:09→22:00)
[2017-05-08] MEDS: FREE WATER G-TUBE SCH ×3 (05:09→18:00)
[2017-05-08] MEDS: PIPERACIL-TAZO 4.5 GM PREMIX 100 ML IV SCH ×3 (05:09→18:36)
[2017-05-08] MEDS: METOCLOPRAMIDE HCL 10 MG/2 ML VIAL IV PUSH SCH ×3 (05:09→22:55)
--- NOTE | 2017-05-08 08:36 | RADRPT ---
EXAM DATE/TIME: 05/08/2017 08:15 [place] COMPARISON: CT THORAX W/O CONTRAST, September 27, 2016, 9:17. INDICATIONS : Abnormal chest X-ray. RADIATION DOSE: 5.23 CTDIvol (mGy) MEDICAL HISTORY : Chronic obstructive pulmonary disease. Hypertension. Carcinoma, prostate. SURGICAL HISTORY : Appendectomy. ENCOUNTER: Initial ACUITY: 1 day PAIN SCALE: 0/10 LOCATION: Bilateral chest TECHNIQUE: Volumetric scanning of the chest was performed. Using automated exposure control and adjustment of t he mA and/or kV according to patient size, radiation dose was kept as low as reasonably achievable to obtain optimal diagnostic quality images. DICOM format image data is available electronically for r eview and comparison. Follow-up recommendations for detected pulmonary nodules are based at a minimum on nodule size and pa tient risk factors according to Fleischner Society Guidelines. FINDINGS: LUNGS: Mild pulmonary parenchymal emphysema identified with upper lobe predominance. Bilateral pulmonary par enchymal opacity with posterior upper lobe predominance. The largest area is an area of pleural-based opacity in the posterior lateral left upper lobe measuring 4.3 x 1.8 cm and containing an air bronch ogram indicating a consolidation. Patchy areas of consolidation and groundglass opacity identified in the right upper lobe was serially and laterally. Atelectasis is noted in the lower lobes at the depe ndent portions bilaterally. PLEURAE: There is no pleural thickening or pleural effusion. MEDIASTINUM: Diffuse area calcification and coronary artery calcifications. Multiple subcentimeter mediastinal lym ph nodes unchanged, likely reactive. Trace pericardial effusion unchanged. AXILLAE: Within normal limits. No lymphadenopathy. MUSCULOSKELETAL: Degenerative findings of the thoracic spine and old right-sided rib fractures. MISCELLANEOUS: The visualized upper abdominal organs demonstrate no acute abnormality. CONCLUSION: 1. Bilateral patchy pulmonary parenchymal opacity with posterior upper lobe predominance. This findin g is new compared to prior study of September 2016. Differential diagnosis includes infection, asymmetric pulmonary edema, and atelectasis. 2. Bilateral upper lobe predominant pulmonary parenchymal emphysema. 3. Pleural effusion seen on the prior study are no longer seen. Donald Valerio MD on May 08, 2017 at 8:27 Board Certified Radiologist. This report was verified electronically.
[2017-05-08] MEDS: BUDESONIDE-FORMOTEROL 160/4.5 MCG INHALER INH SCH ×2 (08:54→21:00)
[2017-05-08] MEDS: LACTOBACILLUS ACIDOPHILUS TAB PO SCH ×2 (08:54→21:00)
[2017-05-08] MEDS: PANTOPRAZOLE SODIUM 40 MG VIAL IV PUSH SCH (08:54)
[2017-05-08] MEDS: SODIUM CHLORIDE 0.9% FLUSH 10 ML FLUSH IV FLUSH SCH ×2 (08:55→21:00)
[2017-05-08] MEDS: VITAMINS A & D OINT 60 GM TUBE TOPICAL SCH ×2 (09:00→21:00)
--- NOTE | 2017-05-08 09:14 | HHI.PR ---
Subjective Remarks Follow-up for HCAP due to ESBL Klebsiella, pseudomonas. Patient is doing well on room air. However, he complains of inadequate pain control. No fever, chills. Objective Vitals Vital Signs Date Time Temp Pulse Resp B/P (MAP) Pulse Ox O2 Delivery O2 Flow Rate FiO2 05/08/17 08:00 97.6 73 17 102/62 (75) 95 05/08/17 05:00 97.7 68 21 125/75 (92) 95 05/08/17 00:15 98.0 66 19 120/67 (84) 96 05/07/17 21:15 97.9 71 18 118/69 (85) 95 05/07/17 19:51 93 21 05/07/17 16:40 84 05/07/17 16:40 94 05/07/17 16:33 97.9 75 20 121/64 (83) 94 05/07/17 13:10 98.2 84 20 117/81 (93) 95 05/07/17 10:08 98.0 90 20 144/81 (102) 95 I/O 05/07/17 05/07/17 05/07/17 05/08/17 05/08/17 05/08/17 07:00 15:00 23:00 07:00 15:00 23:00 Intake Total 2668 ml 50 ml 1110 ml 0 ml Output Total 1250 ml 1500 ml Balance 2668 ml 50 ml -140 ml -1500 ml Intake Oral 1200 ml 1000 ml 0 ml IV Total 50 ml 110 ml Tube Feeding 1468 ml Output Urine Total 1250 ml 1500 ml # Bowel Movements 1 0 Result Diagram: 05/07/17 0529 Imaging Last Impressions Chest CT 05/08/17 0000 Signed Impressions: Service Date/Time: Monday, May 08, 2017 08:15 - CONCLUSION: 1. Bilateral patchy pulmonary parenchymal opacity with posterior upper lobe predominance. This finding is new compared to prior study of September 2016. Differential diagnosis includes infection, asymmetric pulmonary edema, and atelectasis. 2. Bilateral upper lobe predominant pulmonary parenchymal emphysema. 3. Pleural effusion seen on the prior study are no longer seen. Donald Valerio MD Chest X-Ray 05/06/17 0000 Signed Impressions: Service Date/Time: April 13:25 - CONCLUSION: Unchanged bilateral upper lobe infiltrates. Polo Moore Jr., MD Modified Barium Swallow 04/28/17 0000 Signed Impressions: Service Date/Time: Friday, April 28, 2017 13:22 - CONCLUSION: Please see consultation from speech pathology. Bear Olson MD FACR Abdomen X-Ray 04/27/17 0000 Signed Impressions: Service Date/Time: Thursday, April 27, 2017 13:09 - CONCLUSION: 1. The oral contrast material outlines the duodenal C-loop. No abnormal extravasation is identified. Feeding tube is likely within the distal stomach. 2. Persistent abnormally dilated small bowel in the central abdomen. However, it has improved compared to the earlier CT. Lex Malik MD Abdomen/Pelvis CT 04/26/17 2141 Signed Impressions: Service Date/Time: Thursday, April 27, 2017 00:18 - CONCLUSION: 1. Small bowel dilatation which may reflect ileus or obstruction. Followup examination is recommended if clinically indicated. Gareth Escalante MD Objective Remarks GENERAL: Alert, oriented 3, NAD SKIN: Warm and dry. HEAD: Normocephalic. EYES: No scleral icterus. No injection or drainage. NECK: Supple, trachea midline. No JVD or lymphadenopathy. CARDIOVASCULAR: Regular rate and rhythm without murmurs, gallops, or rubs. RESPIRATORY: Breath sounds equal bilaterally. No accessory muscle use. GASTROINTESTINAL: Abdomen soft, non-tender, nondistended. MUSCULOSKELETAL: No cyanosis, or edema. BACK: Nontender without obvious deformity. No CVA tenderness. Procedures None Date of Insertion: Apr 26, 2017 Line: Central Venous Catheter Side: Right Location: Internal, Jugular (vasoactive medication) A/P Problem List: (1) PEG (percutaneous endoscopic gastrostomy) status ICD Code: Z93.1 - Gastrostomy status Status: Chronic (2) Pseudomonas pneumonia ICD Code: J15.1 - Pneumonia due to Pseudomonas Status: Acute (3) Hypokalemia ICD Code: E87.6 - Hypokalemia Status: Acute (4) Ashley sepsis ICD Code: B37.7 - Candidal sepsis Status: Acute (5) Sepsis due to urinary tract infection ICD Code: A41.9 - Sepsis, unspecified organism; N39.0 - Urinary tract infection , site not specified Status: Acute (6) PEG tube malfunction ICD Code: K94.23 - Gastrostomy malfunction Status: Acute (7) Bladder outflow obstruction ICD Code: N32.0 - Bladder-neck obstruction Status: Acute Assessment and Plan Patient is a 72-year-old male with a history of sepsis, HTN, COPD, prostate cancer, bladder outlet obstruction, ventral hernia with mesh placement who came into the hospital with a sudden onset of nausea and vomiting and was leaking stool surrounding his PEG tube. Ileus vs Obstruction Abdominal Pain, nausea, vomiting CT of the abdomen and pelvis showed 1. Small bowel dilatation which may reflect ileus or obstruction. General surgery has been following the patient. Abdominal x-ray showed: Oral contrast material supplies the duodenal C-loop, no extravasation was identified. Feeding tube is likely within the distal stomach ; Persistent abnormally dilated small bowel in the central abdomen; However has improved compared to the earlier CT. - Continue with tube feeds with a goal of 45 cc an hour, with water flushes to keep it from clogging. - Continue Reglan, IV fluids for hydration, continue Zofran. Sepsis, pneumonia HCAP secondary to Klebsiella ESBL - Sputum culture has Klebsiella ESBL. Leukocytosis has improved - Sputum culture from 04/27/2017 grew ESBL Klebsiella and Pseudomonas. Repeat sputum culture from 05/04/2017 grew Pseudomonas. - Chest CT on 05/08/2017, reviewed by me shows bilateral patchy pulmonary opacities. - ID, Pulmonary following. - Central line discontinued, PICC line placed. Dysphagia, PEG tube placement Modified barium swallow noted aspiration. - Continue to keep patient nothing by mouth with tube feeding. - Speech therapy. - Monitor for aspiration. COPD/ Pulmonary fibrosis - Stable on room air at this time. - Continue with Symbicort twice a day. - Continue with DuoNeb scheduled and when necessary. Bladder outlet obstruction - Hammond in place. - Continue Flomax. - continue Hammond catheter. - If patient is able to increase activity may need to try bladder training. Full code. Heparin SQ. Chantal Arana DO May 08, 2017 9:14 am
[2017-05-08] MEDS: RESP: ALBUTEROL 2.5 MG/IPRATROPIUM 0.5 MG NEB (PRN) NEB ×3 (09:56→21:35)
[2017-05-08] MEDS: TOBRAMYCIN INJ 400 MG in SODIUM CHLORIDE 0.9% INJ 100 ML IV SCH (15:03)
--- NOTE | 2017-05-08 16:02 | HHI.PR ---
Subjective Remarks 72 YOWM with Pseudomonas Pn,COPD Had CT chest, lung infilt Comfortable on RA No fever, cough or sp Wants to get more pain meds Objective Vital Signs Vital Signs Date Time Temp Pulse Resp B/P (MAP) Pulse Ox O2 Delivery O2 Flow Rate FiO2 05/08/17 14:20 19 05/08/17 12:00 97.6 74 17 105/63 (77) 96 05/08/17 11:04 19 05/08/17 09:56 95 21 05/08/17 08:50 Room Air 05/08/17 08:00 97.6 73 17 102/62 (75) 95 05/08/17 05:00 97.7 68 21 125/75 (92) 95 05/08/17 00:15 98.0 66 19 120/67 (84) 96 05/07/17 21:15 97.9 71 18 118/69 (85) 95 05/07/17 19:51 93 21 05/07/17 16:40 84 05/07/17 16:40 94 05/07/17 16:33 97.9 75 20 121/64 (83) 94 I/O 05/07/17 05/07/17 05/07/17 05/08/17 05/08/17 05/08/17 07:00 15:00 23:00 07:00 15:00 23:00 Intake Total 2668 ml 50 ml 1110 ml 0 ml Output Total 1250 ml 1500 ml 1100 ml Balance 2668 ml 50 ml -140 ml -1500 ml -1100 ml Intake Oral 1200 ml 1000 ml 0 ml IV Total 50 ml 110 ml Tube Feeding 1468 ml Output Urine Total 1250 ml 1500 ml 1100 ml # Bowel Movements 1 0 0 Result Diagram: 05/07/17 0529 Objective Remarks GENERAL: MBMN WM,NAD SKIN: Warm and dry. HEAD: Normocephalic. EYES: No scleral icterus. No injection or drainage. NECK: Supple, trachea midline. No JVD or lymphadenopathy. CARDIOVASCULAR: Regular rate and rhythm without murmurs, gallops, or rubs. RESPIRATORY: Breath sounds equal bilaterally. No accessory muscle use. GASTROINTESTINAL: Abdomen soft, non-tender, nondistended. MUSCULOSKELETAL: No cyanosis, or edema. BACK: Nontender without obvious deformity. No CVA tenderness. A/P Assessment and Plan Pseudomonas Pn COPD HTN PLAN: cont Abx Aerosol nebs TF Stable on RA Asher Vincent MD May 08, 2017 16:02
[2017-05-08] MEDS: NAPHAZOLINE HCL 0.012% OPHT SOLN 15 ML BOTTLE EACH EYE PRN (18:37)
[2017-05-08] MEDS: TAMSULOSIN HCL 0.4 MG CAP PO SCH (21:00)
[2017-05-08] MEDS: DIAZEPAM 5 MG TAB PO PRN (23:44)
[2017-05-09] VITALS (9 sets, daily range): BP systolic 91–132; BP diastolic 53–68; PULSE 68–93; RESP 17–20; TEMP 97.8–98.9; O2SAT 94–98
[2017-05-09] MEDS: HYDROmorphone HCL PF 0.5 MG/0.5 ML SYRINGE IV PUSH PRN ×6 (02:50→22:52)
[2017-05-09] MEDS: ACETAMINOPHEN/HYDROcodone 325 MG/10 MG TAB PO PRN ×6 (02:50→21:52)
[2017-05-09] MEDS: CHLORHEXIDINE GLUCONATE 2 % 1 PACK (2 CLOTHS) TOP SCH (04:00)
[2017-05-09] MEDS: PIPERACIL-TAZO 4.5 GM PREMIX 100 ML IV SCH ×4 (05:38→17:43)
[2017-05-09] MEDS: METOCLOPRAMIDE HCL 10 MG/2 ML VIAL IV PUSH SCH ×3 (05:38→21:53)
[2017-05-09] MEDS: HEPARIN SODIUM - SQ 10,000 UNITS/ML VIAL SQ SCH ×3 (05:39→21:52)
[2017-05-09] MEDS: FREE WATER G-TUBE SCH ×4 (05:50→18:00)
[2017-05-09] MEDS: SODIUM CHLORIDE 0.9% FLUSH 10 ML FLUSH IV FLUSH PRN (06:34)
[2017-05-09] MEDS: PANTOPRAZOLE SODIUM 40 MG VIAL IV PUSH SCH (08:34)
[2017-05-09] MEDS: LACTOBACILLUS ACIDOPHILUS TAB PO SCH ×2 (08:34→21:52)
[2017-05-09] MEDS: BUDESONIDE-FORMOTEROL 160/4.5 MCG INHALER INH SCH ×2 (08:35→21:59)
[2017-05-09] MEDS: SODIUM CHLORIDE 0.9% FLUSH 10 ML FLUSH IV FLUSH SCH ×2 (08:35→21:51)
[2017-05-09] MEDS: VITAMINS A & D OINT 60 GM TUBE TOPICAL SCH ×2 (12:44→21:59)
[2017-05-09] MEDS: RESP: ALBUTEROL 2.5 MG/IPRATROPIUM 0.5 MG NEB (PRN) NEB (13:10)
[2017-05-09] MEDS: TOBRAMYCIN INJ 400 MG in SODIUM CHLORIDE 0.9% INJ 100 ML IV SCH (14:54)
--- NOTE | 2017-05-09 18:19 | HHI.PR ---
Subjective Remarks 72 YOWM with Pseudomonas Pn,COPD Had CT chest, lung infilt Comfortable on RA No fever, cough or sp Objective Vital Signs Vital Signs Date Time Temp Pulse Resp B/P (MAP) Pulse Ox O2 Delivery O2 Flow Rate FiO2 05/09/17 16:00 97.8 73 17 101/57 (72) 94 05/09/17 12:00 98.0 76 17 98/53 (68) 94 05/09/17 11:08 95 21 05/09/17 08:30 Room Air 05/09/17 08:00 97.8 84 17 91/54 (66) 94 05/09/17 05:30 97.9 80 19 110/68 (82) 95 05/09/17 00:15 98.0 75 20 105/67 (80) 94 05/09/17 00:00 93 05/08/17 20:45 97.4 74 19 101/64 (76) 94 05/08/17 19:19 95 21 05/08/17 18:29 20 I/O 05/08/17 05/08/17 05/08/17 05/09/17 05/09/17 05/09/17 07:00 15:00 23:00 07:00 15:00 23:00 Intake Total 0 ml 0 ml 0 ml Output Total 1500 ml 2100 ml 1400 ml 950 ml Balance -1500 ml -2100 ml -1400 ml -950 ml Intake Oral 0 ml 0 ml 0 ml Output Urine Total 1500 ml 2100 ml 1400 ml 950 ml # Bowel Movements 0 0 0 2 Result Diagram: 05/07/17 0529 Objective Remarks GENERAL: MBMN WM,NAD SKIN: Warm and dry. HEAD: Normocephalic. EYES: No scleral icterus. No injection or drainage. NECK: Supple, trachea midline. No JVD or lymphadenopathy. CARDIOVASCULAR: Regular rate and rhythm without murmurs, gallops, or rubs. RESPIRATORY: Breath sounds equal bilaterally. No accessory muscle use. GASTROINTESTINAL: Abdomen soft, non-tender, nondistended. MUSCULOSKELETAL: No cyanosis, or edema. BACK: Nontender without obvious deformity. No CVA tenderness. A/P Assessment and Plan Pseudomonas Pn COPD HTN PLAN: cont Abx Aerosol nebs TF Stable on RA Asher Vincent MD May 09, 2017 18:19
[2017-05-09] MEDS: TAMSULOSIN HCL 0.4 MG CAP PO SCH (21:52)
[2017-05-10] VITALS (8 sets, daily range): BP systolic 97–136; BP diastolic 54–80; PULSE 63–91; RESP 19–20; TEMP 96.9–98.1; O2SAT 92–97
[2017-05-10] MEDS: CHLORHEXIDINE GLUCONATE 2 % 1 PACK (2 CLOTHS) TOP SCH (00:43)
[2017-05-10] MEDS: FREE WATER G-TUBE SCH ×4 (01:00→17:47)
[2017-05-10] MEDS: PIPERACIL-TAZO 4.5 GM PREMIX 100 ML IV SCH ×4 (01:00→17:45)
[2017-05-10] MEDS: ACETAMINOPHEN/HYDROcodone 325 MG/10 MG TAB PO PRN ×5 (01:59→18:27)
[2017-05-10] MEDS: HYDROmorphone HCL PF 0.5 MG/0.5 ML SYRINGE IV PUSH PRN ×5 (04:52→21:59)
[2017-05-10] MEDS: HEPARIN SODIUM - SQ 10,000 UNITS/ML VIAL SQ SCH ×3 (06:38→21:57)
[2017-05-10] MEDS: METOCLOPRAMIDE HCL 10 MG/2 ML VIAL IV PUSH SCH ×3 (06:38→21:58)
[2017-05-10] MEDS: RESP: ALBUTEROL 2.5 MG/IPRATROPIUM 0.5 MG NEB (PRN) NEB ×3 (08:51→15:53)
[2017-05-10] MEDS: BUDESONIDE-FORMOTEROL 160/4.5 MCG INHALER INH SCH ×2 (08:53→22:00)
[2017-05-10] MEDS: SODIUM CHLORIDE 0.9% FLUSH 10 ML FLUSH IV FLUSH SCH ×2 (08:54→22:00)
[2017-05-10] MEDS: PANTOPRAZOLE SODIUM 40 MG VIAL IV PUSH SCH (08:55)
[2017-05-10] MEDS: VITAMINS A & D OINT 60 GM TUBE TOPICAL SCH ×2 (08:59→22:01)
[2017-05-10] MEDS: LACTOBACILLUS ACIDOPHILUS TAB PO SCH ×2 (08:59→22:00)
--- NOTE | 2017-05-10 09:23 | HHI.PR ---
Subjective Remarks Late entry for 05/09/2017 Follow-up for HCAP due to ESBL Klebsiella, pseudomonas. Patient is in the bathroom, ex- at bedside. No acute concerns. Objective Vitals Vital Signs Date Time Temp Pulse Resp B/P (MAP) Pulse Ox O2 Delivery O2 Flow Rate FiO2 05/10/17 08:54 93 05/10/17 08:35 98.1 86 20 97/60 (72) 93 05/10/17 04:30 98.0 63 20 136/70 (92) 96 05/10/17 00:30 97.6 66 19 129/80 (96) 97 05/09/17 21:00 70 05/09/17 20:45 98.9 68 19 132/67 (88) 98 05/09/17 16:00 97.8 73 17 101/57 (72) 94 05/09/17 12:00 98.0 76 17 98/53 (68) 94 05/09/17 11:08 95 21 05/09/17 10:27 18 I/O 05/09/17 05/09/17 05/09/17 05/10/17 05/10/17 05/10/17 07:00 15:00 23:00 07:00 15:00 23:00 Intake Total 0 ml 0 ml 0 ml 1375 ml Output Total 1400 ml 950 ml 800 ml 1300 ml Balance -1400 ml -950 ml -800 ml -1300 ml 1375 ml Intake Oral 0 ml 0 ml 0 ml Tube Feeding 1075 ml Other 300 ml Output Urine Total 1400 ml 950 ml 800 ml 1300 ml # Bowel Movements 0 2 0 0 Result Diagram: 05/07/17 0529 Imaging Last Impressions Chest CT 05/08/17 0000 Signed Impressions: Service Date/Time: Monday, May 08, 2017 08:15 - CONCLUSION: 1. Bilateral patchy pulmonary parenchymal opacity with posterior upper lobe predominance. This finding is new compared to prior study of September 2016. Differential diagnosis includes infection, asymmetric pulmonary edema, and atelectasis. 2. Bilateral upper lobe predominant pulmonary parenchymal emphysema. 3. Pleural effusion seen on the prior study are no longer seen. Donald Valerio MD Chest X-Ray 05/06/17 0000 Signed Impressions: Service Date/Time: April 13:25 - CONCLUSION: Unchanged bilateral upper lobe infiltrates. Polo Moore Jr., MD Modified Barium Swallow 04/28/17 0000 Signed Impressions: Service Date/Time: Friday, April 28, 2017 13:22 - CONCLUSION: Please see consultation from speech pathology. Bear Olson MD FACR Abdomen X-Ray 04/27/17 0000 Signed Impressions: Service Date/Time: Thursday, April 27, 2017 13:09 - CONCLUSION: 1. The oral contrast material outlines the duodenal C-loop. No abnormal extravasation is identified. Feeding tube is likely within the distal stomach. 2. Persistent abnormally dilated small bowel in the central abdomen. However, it has improved compared to the earlier CT. Lex Malik MD Abdomen/Pelvis CT 04/26/17 2141 Signed Impressions: Service Date/Time: Thursday, April 27, 2017 00:18 - CONCLUSION: 1. Small bowel dilatation which may reflect ileus or obstruction. Followup examination is recommended if clinically indicated. Gareth Escalante MD Objective Remarks GENERAL: Alert, oriented 3, NAD SKIN: Warm and dry. HEAD: Normocephalic. EYES: No scleral icterus. No injection or drainage. NECK: Supple, trachea midline. No JVD or lymphadenopathy. CARDIOVASCULAR: Regular rate and rhythm without murmurs, gallops, or rubs. RESPIRATORY: Breath sounds equal bilaterally. No accessory muscle use. GASTROINTESTINAL: Abdomen soft, non-tender, nondistended. MUSCULOSKELETAL: No cyanosis, or edema. BACK: Nontender without obvious deformity. No CVA tenderness. Procedures None Date of Insertion: Apr 26, 2017 Line: Central Venous Catheter Side: Right Location: Internal, Jugular (vasoactive medication) A/P Problem List: (1) PEG (percutaneous endoscopic gastrostomy) status ICD Code: Z93.1 - Gastrostomy status Status: Chronic (2) Pseudomonas pneumonia ICD Code: J15.1 - Pneumonia due to Pseudomonas Status: Acute (3) Hypokalemia ICD Code: E87.6 - Hypokalemia Status: Acute (4) Ashley sepsis ICD Code: B37.7 - Candidal sepsis Status: Acute (5) Sepsis due to urinary tract infection ICD Code: A41.9 - Sepsis, unspecified organism; N39.0 - Urinary tract infection , site not specified Status: Acute (6) PEG tube malfunction ICD Code: K94.23 - Gastrostomy malfunction Status: Acute (7) Bladder outflow obstruction ICD Code: N32.0 - Bladder-neck obstruction Status: Acute Assessment and Plan Patient is a 72-year-old male with a history of sepsis, HTN, COPD, prostate cancer, bladder outlet obstruction, ventral hernia with mesh placement who came into the hospital with a sudden onset of nausea and vomiting and was leaking stool surrounding his PEG tube. Ileus vs Obstruction Abdominal Pain, nausea, vomiting CT of the abdomen and pelvis showed 1. Small bowel dilatation which may reflect ileus or obstruction. General surgery has been following the patient. Abdominal x-ray showed: Oral contrast material supplies the duodenal C-loop, no extravasation was identified. Feeding tube is likely within the distal stomach ; Persistent abnormally dilated small bowel in the central abdomen; However has improved compared to the earlier CT. - Continue with tube feeds with a goal of 45 cc an hour, with water flushes to keep it from clogging. - Continue Reglan, IV fluids for hydration, continue Zofran. Sepsis, pneumonia HCAP secondary to Klebsiella ESBL - Sputum culture has Klebsiella ESBL. Leukocytosis has improved - Sputum culture from 04/27/2017 grew ESBL Klebsiella and Pseudomonas. Repeat sputum culture from 05/04/2017 grew Pseudomonas. - Chest CT on 05/08/2017, reviewed by me shows bilateral patchy pulmonary opacities. - ID, Pulmonary following. - Central line discontinued, PICC line placed. Dysphagia, PEG tube placement Modified barium swallow noted aspiration. - Continue to keep patient nothing by mouth with tube feeding. - Later in the afternoon, PEG tube was leaking. We will stop tube feed for now and evaluate in the AM. COPD/ Pulmonary fibrosis - Stable on room air at this time. - Continue with Symbicort twice a day. - Continue with DuoNeb scheduled and when necessary. Bladder outlet obstruction - Hammond in place. - Continue Flomax. - continue Hammond catheter. - If patient is able to increase activity may need to try bladder training. Full code. Heparin SQ. Chantal Arana DO May 10, 2017 09:23
--- NOTE | 2017-05-10 12:16 | HHI.FF ---
Infusion Therapy Location of Infusion Therapy: Home [facility] IV Infusion Order Patient Information Patient Weight 66 kg Diagnosis: (1) Pneumonia (2) HCAP (healthcare-associated pneumonia) Coded Allergies: *MDRO Multi-Drug Resistant Organism (Verified Adverse Reaction, Unknown, ) MRSA (abdominal wound) 2015 per 04/10/2015 H&P MRSA PCR Screens NEGATIVE - 08/10/16 & 08/21/16 CLEARED PER INFECTION CONTROL PROTOCOL Administer Medication Piperacillin/Tazobactam 4.5 grams IV q 6 hours Stop Treatment: May 14, 2017 Additional Information Venous access: Other Additional Instructions [x] Peripheral flush and dressing changes per protocol [x] Implanted port and central hot top liner: * Implanted port: 10 ml Normal Saline followed by 5 ml Heparin 100 units/ml Heparin flush after each use and monthly to maintain. [] May leave port accessed during therapy. [] May leave peripheral site accessed for duration of therapy. [x] If patient has SOB or respiratory distress, check oxygen saturation. If less than 90% or clinical signs of respiratory distress, administer oxygen at 2 L/min. via nasal cannula and notify physician. [x] Anaphylaxis/Reaction orders: * Stop infusion. * Keep IV line open with saline flush. * Notify physician. * Monitor vital signs every 15 minutes until symptoms resolve. * Check Oxygen saturation; Oxygen at 2 L/min. via nasal cannula if less than 90% or clinical signs of respiratory distress. * Administer diphenhydramine (Benadryl) 25 mg IV STAT, (unless patient has received as pre-med). May repeat once, if necessary. * Solu-Cortef 250 mg IVP over 30-60 seconds, use 100 mg vials for each dissolution. * Epinephrine (1mg/1 ml) 0.3 mg subcutaneously or IVP now with any signs of respiratory distress. * Check with physician for new additional pre-med orders if patient is re- challenged or re-treated. [x] May remove PICC line when treatment complete, after confirming with Physician. [x] If the patient is admitted to the hospital, the ED, or transferred via [facility] , complete transfer form including medication reconciliation order sheet. Laboratory Tests Weekly Labs: Gautam Mirza MD May 10, 2017 12:16
[2017-05-10] MEDS ORDERED: [UNRECOGNIZED DRUG - CODE] IV (12:21)
[2017-05-10] MEDS ORDERED: EPIN1INJ21 IV PUSH (12:21)
[2017-05-10] MEDS ORDERED: EPIN1INJ21 SQ (12:21)
[2017-05-10] MEDS ORDERED: SOLU250I IV PUSH (12:21)
--- NOTE | 2017-05-10 12:28 | HHI.IDPN ---
Note Infectious Disease Note Patient feels better. Little clear phlegm coughed up. No distress. Afebrile. Admitted with nausea, vomiting and abdominal pain. The patient was noted to have leakage of fecal matter around his PEG tube. He was evaluated in the emergency department yesterday and was noted to have hypotension with a blood pressure of 60/40 and a white count of 32.1 along with a left shift including 33% bands. The patient has been fed via the PEG tube. PAST MEDICAL HISTORY 1. Hypertension 2. Hyperlipidemia 3. COPD 4. Prostate cancer 5. Ventral hernia 6. Appendectomy 7. Perforated gastric ulcer repair 8. PEG tube placement. ALLERGIES NO KNOWN DRUG ALLERGIES. MEDICATIONS 1. Zosyn 2. Tobramycin. SOCIAL HISTORY No tobacco, no alcohol, no illicit drugs. OBJECTIVE: Vital Signs Date Time Temp Pulse Resp B/P (MAP) Pulse Ox O2 Delivery O2 Flow Rate FiO2 05/10/17 08:54 93 05/10/17 08:35 98.1 86 20 97/60 (72) 93 05/10/17 04:30 98.0 63 20 136/70 (92) 96 05/10/17 00:30 97.6 66 19 129/80 (96) 97 05/09/17 21:00 70 05/09/17 20:45 98.9 68 19 132/67 (88) 98 05/09/17 16:00 97.8 73 17 101/57 (72) 94 Microbiology Date/Time Source Procedure Growth Status 05/04/17 14:50 Sputum Expectorated Sputum Gram Stain - Final Complete 05/04/17 14:50 Sputum Culture - Final Pseudomonas Aeruginosa Complete IMAGING: Chest CT 05/08/17 0000 Signed Impressions: Service Date/Time: Monday, May 08, 2017 08:15 - CONCLUSION: 1. Bilateral patchy pulmonary parenchymal opacity with posterior upper lobe predominance. This finding is new compared to prior study of September 2016. Differential diagnosis includes infection, asymmetric pulmonary edema, and atelectasis. 2. Bilateral upper lobe predominant pulmonary parenchymal emphysema. 3. Pleural effusion seen on the prior study are no longer seen. Donald Valerio MD Chest X-Ray 05/06/17 0000 Signed Impressions: Service Date/Time: April 13:25 - CONCLUSION: Unchanged bilateral upper lobe infiltrates. Polo Moore Jr., MD Chest X-Ray 11/13/17 0000 Signed Impressions: Service Date/Time: Wednesday, May 03, 2017 15:17 - CONCLUSION: Unchanged bilateral upper lobe pulmonary infiltrates. Polo Moore Jr., MD Modified Barium Swallow 04/28/17 Signed Impressions: Service Date/Time: Friday, April 28, 2017 13:22 - CONCLUSION: Please see consultation from speech pathology. Bear Olson MD FACR Chest X-Ray 04/27/17 Signed Impressions: Service Date/Time: Thursday, April 27, 2017 02:39 - CONCLUSION: 1. Uncomplicated line placement. No evidence of pneumothorax. Gareth Escalante MD Abdomen X-Ray 04/27/17 Signed Impressions: Service Date/Time: Thursday, April 27, 2017 13:09 - CONCLUSION: 1. The oral contrast material outlines the duodenal C-loop. No abnormal extravasation is identified. Feeding tube is likely within the distal stomach. 2. Persistent abnormally dilated small bowel in the central abdomen. However, it has improved compared to the earlier CT. Lex Malik MD Chest X-Ray 04/26/172140 Signed Impressions: Service Date/Time: Wednesday, April 26, 2017 21:46 - CONCLUSION: 1. There is airspace consolidation in the peripheral left midlung zone. Although nonspecific this could represent an infectious process/pneumonia in the appropriate clinical setting. 2. Mild consolidation versus atelectasis in the right lower lung zone. Lex Malik MD Abdomen/Pelvis CT 04/26/172140 Signed Impressions: Service Date/Time: Thursday, April 27, 2017 00:18 - CONCLUSION: 1. Small bowel dilatation which may reflect ileus or obstruction. Followup examination is recommended if clinically indicated. Gareth Escalante MD PHYSICAL EXAM GENERAL: No acute distress. HEENT: No icterus. Oropharynx, moist mucosa. NECK: Supple. No adenopathy. LUNGS: Bilateral rhonchi at bases. Decreased breath sounds. HEART: Regular S1 and S2. No murmurs, rubs or gallops. ABDOMEN: Bulge at the lower abdomen in the umbilicus area where the PEG tube exits the abdomen. No drainage visible around the PEG tube. No erythema. Soft. Non tender. No palpable mass. EXTREMITIES: No clubbing or cyanosis or edema. SKIN: No rash. PSYCHIATRIC: Calm and cooperative. IMPRESSION 1. Sepsis 2. Pneumonia previously ESBL klebsiella. - HCAP. Being treated. - CXR 05/06 persistent infiltrate at upper lobes. Repeat sputum culture has pseudomonas (R). 3. Abdominal pain and PEG tube malfunction. Improved. 4. Leukocytosis secondary to sepsis. Improved. 5. Aspiration pneumonia. 6. Acute renal disease. 7. Candiduria. Treated. Appears stable. RECOMMENDATIONS Continue Zosyn IV until 11/11. can be given continuous on PUMP. Orders written. D/W Dr Arana. Okay for discharge when arrangements are made. Gautam Yanez MD May 10, 2017 12:27
[2017-05-10] MEDS: TOBRAMYCIN INJ 400 MG in SODIUM CHLORIDE 0.9% INJ 100 ML IV SCH (14:02)
[2017-05-10] MEDS ORDERED: HYDR-3583 PO (14:15)
--- NOTE | 2017-05-10 18:42 | HHI.PR ---
Subjective Remarks 72 YOWM with Pseudomonas Pn,COPD Had CT chest, lung infilt Comfortable on RA No fever, cough or sp Would prefer to go home Objective Vital Signs Vital Signs Date Time Temp Pulse Resp B/P (MAP) Pulse Ox O2 Delivery O2 Flow Rate FiO2 05/10/17 16:47 97.8 71 20 99/59 (72) 92 05/10/17 12:15 97.9 91 20 97/54 (68) 92 05/10/17 08:54 93 05/10/17 08:35 93 Room Air 05/10/17 08:35 98.1 86 20 97/60 (72) 93 05/10/17 08:03 75 05/10/17 04:30 98.0 63 20 136/70 (92) 96 05/10/17 00:30 97.6 66 19 129/80 (96) 97 05/09/17 21:00 70 05/09/17 20:45 98.9 68 19 132/67 (88) 98 I/O 05/09/17 05/09/17 05/09/17 05/10/17 05/10/17 05/10/17 07:00 15:00 23:00 07:00 15:00 23:00 Intake Total 0 ml 0 ml 0 ml 1575 ml 691 ml Output Total 1400 ml 950 ml 800 ml 1300 ml Balance -1400 ml -950 ml -800 ml -1300 ml 1575 ml 691 ml Intake Oral 0 ml 0 ml 0 ml 0 ml IV Total 100 ml 210 ml Tube Feeding 1075 ml 381 ml Tube Irrigant 100 ml 100 ml Other 300 ml Output Urine Total 1400 ml 950 ml 800 ml 1300 ml # Voids 3 # Bowel Movements 0 2 0 0 1 Result Diagram: 05/07/17 0529 Objective Remarks GENERAL: MBMN WM,NAD SKIN: Warm and dry. HEAD: Normocephalic. EYES: No scleral icterus. No injection or drainage. NECK: Supple, trachea midline. No JVD or lymphadenopathy. CARDIOVASCULAR: Regular rate and rhythm without murmurs, gallops, or rubs. RESPIRATORY: Breath sounds equal bilaterally. No accessory muscle use. GASTROINTESTINAL: Abdomen soft, non-tender, nondistended. MUSCULOSKELETAL: No cyanosis, or edema. BACK: Nontender without obvious deformity. No CVA tenderness. A/P Assessment and Plan Pseudomonas Pn COPD HTN PLAN: cont Abx Aerosol nebs TF Stable on RA DC plans underway Asher Vincent MD May 10, 2017 18:42
--- NOTE | 2017-05-10 20:58 | HHI.DS ---
Discharge Summary Admission Date Apr 26, 2017 at 22:58 Discharge Date: May 10, 2017 Admitting Diagnosis Sepsis, Fecal leakage around Peg tube, vomiting (1) PEG (percutaneous endoscopic gastrostomy) status ICD Code: Z93.1 - Gastrostomy status Status: Chronic (2) Pseudomonas pneumonia ICD Code: J15.1 - Pneumonia due to Pseudomonas Status: Acute (3) Hypokalemia ICD Code: E87.6 - Hypokalemia Status: Acute (4) Ashley sepsis ICD Code: B37.7 - Candidal sepsis Status: Acute (5) Sepsis due to urinary tract infection ICD Code: A41.9 - Sepsis, unspecified organism; N39.0 - Urinary tract infection , site not specified Status: Acute (6) PEG tube malfunction ICD Code: K94.23 - Gastrostomy malfunction Status: Acute (7) Bladder outflow obstruction ICD Code: N32.0 - Bladder-neck obstruction Status: Acute Procedures Central line 04/27/2017. Discontinued on 05/10/2017. Brief History - From Admission 72 year old unfortunate male presents with a history of sudden onset( 2 hours ago) of nausea and vomiting 1, then leakage from the area around his PEG tube that appeared to be stool. Ambulance services were called and the patient was noted to have what looked like fecal matter leaking around his PEG tube. The patient reports that he last received a PEG tube feeding early in the morning today. He reportedly was discharged from [facility] earlier today. He was in the rehabilitation for [facility] for about a month. Prior to that he was at [facility] for a ten-month. Dr. oJn Roberts is his surgeon. He was also noticed by EMT to be hypotensive with a blood pressure reportedly of 58/42 that improved to 80/43 with administration of normal saline a 1400 mL IV fluid bolus. The case was discussed by ED attending with general surgeon on-call Dr. Banks who requests to repeat a CT of the abdomen stat and admit patients to critical care services. CBC/BMP: 05/07/17 0529 Imaging Last Impressions Chest CT 05/08/17 0000 Signed Impressions: Service Date/Time: Monday, May 08, 2017 08:15 - CONCLUSION: 1. Bilateral patchy pulmonary parenchymal opacity with posterior upper lobe predominance. This finding is new compared to prior study of September 2016. Differential diagnosis includes infection, asymmetric pulmonary edema, and atelectasis. 2. Bilateral upper lobe predominant pulmonary parenchymal emphysema. 3. Pleural effusion seen on the prior study are no longer seen. Donald Valerio MD Chest X-Ray 05/06/17 0000 Signed Impressions: Service Date/Time: April 13:25 - CONCLUSION: Unchanged bilateral upper lobe infiltrates. Polo Moore Jr., MD Modified Barium Swallow 04/28/17 0000 Signed Impressions: Service Date/Time: Friday, April 28, 2017 13:22 - CONCLUSION: Please see consultation from speech pathology. Bear Olson MD FACR Abdomen X-Ray 04/27/17 0000 Signed Impressions: Service Date/Time: Thursday, April 27, 2017 13:09 - CONCLUSION: 1. The oral contrast material outlines the duodenal C-loop. No abnormal extravasation is identified. Feeding tube is likely within the distal stomach. 2. Persistent abnormally dilated small bowel in the central abdomen. However, it has improved compared to the earlier CT. Lex Malik MD Abdomen/Pelvis CT 04/26/17 2141 Signed Impressions: Service Date/Time: Thursday, April 27, 2017 00:18 - CONCLUSION: 1. Small bowel dilatation which may reflect ileus or obstruction. Followup examination is recommended if clinically indicated. Gareth Escalante MD PE at Discharge GENERAL: Alert, oriented 3, NAD SKIN: Warm and dry. HEAD: Normocephalic. EYES: No scleral icterus. No injection or drainage. NECK: Supple, trachea midline. No JVD or lymphadenopathy. CARDIOVASCULAR: Regular rate and rhythm without murmurs, gallops, or rubs. RESPIRATORY: Breath sounds equal bilaterally. No accessory muscle use. GASTROINTESTINAL: Abdomen soft, non-tender, nondistended. MUSCULOSKELETAL: No cyanosis, or edema. BACK: Nontender without obvious deformity. No CVA tenderness. Pt update on day of discharge Patient is doing well. No chest pain, shortness of breath, fever, chills. He is ambulating well without much difficulty. He is eager to go home. Discussed with ID who agrees with discharging home on home abx. All parts of home health could not be arranged and thus patient is scheduled to leave hospital tomorrow (2016). Hospital Course Patient is a 72-year-old male with a history of sepsis, HTN, COPD, prostate cancer, bladder outlet obstruction, ventral hernia with mesh placement who came into the hospital with a sudden onset of nausea and vomiting and was leaking stool surrounding his PEG tube. Ileus vs Obstruction Abdominal Pain, nausea, vomiting CT of the abdomen and pelvis showed 1. Small bowel dilatation which may reflect ileus or obstruction. General surgery has been following the patient. Abdominal x-ray showed: Oral contrast material supplies the duodenal C-loop, no extravasation was identified. Feeding tube is likely within the distal stomach ; Persistent abnormally dilated small bowel in the central abdomen; However has improved compared to the earlier CT. - Continue with tube feeds with a goal of 45 cc an hour, with water flushes to keep it from clogging. - Continue Reglan, IV fluids for hydration, continue Zofran. Sepsis, pneumonia HCAP secondary to Klebsiella ESBL - Sputum culture has Klebsiella ESBL. Leukocytosis has improved - Sputum culture from 04/27/2017 grew ESBL Klebsiella and Pseudomonas. Repeat sputum culture from 05/04/2017 grew Pseudomonas. - Chest CT on 05/08/2017, reviewed by me shows bilateral patchy pulmonary opacities. - ID, Pulmonary following. ID recommends Zosyn until 05/14/2017. - Central line discontinued, midline was placed. - Home health is being arranged. However, all parts of home health could not be arranged by 05/10/2017. Patient will go home on 05/11/2017. Dysphagia, PEG tube placement Modified barium swallow noted aspiration. - Continue to keep patient nothing by mouth with tube feeding. COPD/ Pulmonary fibrosis - Stable on room air at this time. - Continue with Symbicort twice a day. - Continue with DuoNeb scheduled and when necessary. Bladder outlet obstruction - Hammond in place. - Continue Flomax. - continue Hammond catheter. - If patient is able to increase activity may need to try bladder training. Full code. Heparin SQ. Pt Condition on Discharge: Good Discharge Disposition: Disch w/ Home Health Serv Discharge Time: > 30 minutes Discharge Instructions DIET: Follow Instructions for: On Tube Feeding Activities you can perform: Regular-No Restrictions Follow up Referrals: PCP Follow-up - 1 Week SNF/EMILY/ with [facility] New Medications: Epinephrine Inj (Epinephrine Inj) 1 Mg/Ml (1 Ml) Inj 0.3 MG IV PUSH ONCE PRN for ALLERGIC REACTION, #1 VIAL Epinephrine Inj (Epinephrine Inj) 1 Mg/Ml (1 Ml) Inj 0.3 MG SQ ONCE PRN for ALLERGIC REACTION, #1 VIAL Give with any signs of respiratory distress. Hydrocortisone Inj (Solu-Cortef Inj) 250 Mg/2 Ml Inj 250 MG IV PUSH ONCE PRN for ALLERGIC REACTION, #1 VIAL 0 Refills Give over 30-60 seconds. Piperacillin-Tazobactam Inj (Piperacillin-Tazobactam Inj) 4-0.5 Mg Inj 18 GM IV CONTINUOUS for Infection for 4 Days, BAG Hydrocodone/Acetaminophen (Hydrocodone-Acetamin 10-325 mg) 10 Mg-325 Mg Tablet 1 TAB PO Q6HR PRN for pain 3-10, #30 TAB Continued Medications: Budesonide-Formoterol Inh (Symbicort Inh) 160-4.5 Mcg/Act Aero 2 PUFF INH BID for copd, #1 INHALER 0 Refills Ipratropium-Albuterol Inh (Combivent Respimat Inh) 20-100 Custodial/Act Aero 1 PUFF INH Q4HR PRN for SHORTNESS OF BREATH, #1 INHALER 0 Refills Ipratropium-Albuterol Neb (Duoneb) 0.5-2.5 Mg/3 Ml Neb 1 VIAL NEB QID PRN for SHORTNESS OF BREATH, #30 NEBULE 0 Refills Pantoprazole (Protonix) 40 Mg Tab 40 MG PO DAILY for Reflux, #30 TAB 0 Refills Tamsulosin (Flomax) 0.4 Mg Cap 0.4 MG PO HS for Manage Prostate Problems, #30 CAP 0 Refills Trazodone (Trazodone) 50 Mg Tab 50-100 MG PO HS for Control Depression, #30 TAB 0 Refills Discontinued Medications: Diltiazem CD 24 HR (Cardizem CD 24 HR) 120 Mg Caper 120 MG PO DAILY for hypertension, #30 CAP 0 Refills Hydrocodone-Acetaminophen ([place]) 10-325 Mg Tab 1-2 TAB PO Q4H PRN for PAIN, TAB 0 Refills Prednisone (Prednisone) 5 Mg Tab 5 MG PO DIRECTED for copd for 6 Days, TAB 0 Refills 20 mg po daily for two days then 10 mg po daily for two days then 5 mg po daily for two days then stop. Chantal Arana DO May 10, 2017 20:57
[2017-05-10] MEDS: TAMSULOSIN HCL 0.4 MG CAP PO SCH (21:57)
[2017-05-11] VITALS (11 sets, daily range): BP systolic 82–104; BP diastolic 52–64; PULSE 69–85; RESP 18; TEMP 97.1–98.3; O2SAT 91–96
[2017-05-11] MEDS: PIPERACIL-TAZO 4.5 GM PREMIX 100 ML IV SCH ×4 (00:33→17:28)
[2017-05-11] MEDS: ACETAMINOPHEN/HYDROcodone 325 MG/10 MG TAB PO PRN ×5 (00:33→18:58)
[2017-05-11] MEDS: FREE WATER G-TUBE SCH ×4 (00:34→17:28)
[2017-05-11] MEDS: HYDROmorphone HCL PF 0.5 MG/0.5 ML SYRINGE IV PUSH PRN ×5 (02:06→21:43)
[2017-05-11] MEDS: CHLORHEXIDINE GLUCONATE 2 % 1 PACK (2 CLOTHS) TOP SCH (03:55)
[2017-05-11] MEDS: HEPARIN SODIUM - SQ 10,000 UNITS/ML VIAL SQ SCH ×3 (05:26→21:27)
[2017-05-11] MEDS: METOCLOPRAMIDE HCL 10 MG/2 ML VIAL IV PUSH SCH (05:27)
[2017-05-11 06:27] LABS: AUTOMATED NEUTROPHIL # 3.2 TH/MM3 (1.8-7.7); BASOPHIL # 0.1 TH/MM3 (0-0.2); BASOPHIL % 1.1 % (0.0-2.0); EOSINOPHIL # 0.6 TH/MM3 (0-0.4); EOSINOPHIL % 10.1 % (0.0-4.0); HEMO FLAGS DIFF FINAL; LYMPH % 23.2 % (9.0-44.0); LYMPHOCYTE # 1.3 TH/MM3 (1.0-4.8); MEAN CELL VOLUME 101.2 FL (80.0-100.0); MEAN CORPUSCULAR HEMOGLOBIN 34.7 PG (27.0-34.0); MEAN CORPUSCULAR HGB CONC 34.2 % (32.0-36.0); MONO % 8.6 % (0.0-8.0); PLATELET COUNT 294 TH/MM3 (150-450); RED BLOOD COUNT 2.66 MIL/MM3 (4.50-5.90); RED CELL DISTRIBUTION WIDTH 14.4 % (11.6-17.2); WHITE BLOOD COUNT 5.5 TH/MM3 (4.0-11.0)
[2017-05-11 06:52] LABS: POTASSIUM 4.6 MEQ/L (3.5-5.1)
[2017-05-11] MEDS: RESP: ALBUTEROL 2.5 MG/IPRATROPIUM 0.5 MG NEB (PRN) NEB ×4 (08:19→20:08)
[2017-05-11] MEDS: SODIUM CHLORIDE 0.9% FLUSH 10 ML FLUSH IV FLUSH SCH ×2 (09:00→21:27)
[2017-05-11] MEDS: LACTOBACILLUS ACIDOPHILUS TAB PO SCH ×2 (09:13→21:27)
[2017-05-11] MEDS: PANTOPRAZOLE SODIUM 40 MG VIAL IV PUSH SCH (09:13)
[2017-05-11] MEDS: VITAMINS A & D OINT 60 GM TUBE TOPICAL SCH ×2 (09:14→21:00)
[2017-05-11] MEDS: BUDESONIDE-FORMOTEROL 160/4.5 MCG INHALER INH SCH ×2 (09:15→21:00)
--- NOTE | 2017-05-11 11:21 | HHI.PR ---
Subjective Remarks awake and alert tolerating tube feedings Objective Vitals Vital Signs Date Time Temp Pulse Resp B/P (MAP) Pulse Ox O2 Delivery O2 Flow Rate FiO2 05/11/17 08:22 94 05/11/17 07:56 98.0 82 18 92/55 (67) 91 05/11/17 07:22 19 05/11/17 06:27 18 05/11/17 04:54 94 Room Air 05/11/17 04:04 97.1 75 18 95/54 (68) 92 05/11/17 03:25 78 05/11/17 00:00 97.6 74 18 102/59 (73) 93 05/10/17 21:50 Nasal Cannula 05/10/17 20:00 96.9 72 20 102/61 (75) 94 05/10/17 16:47 97.8 71 20 99/59 (72) 92 05/10/17 12:15 97.9 91 20 97/54 (68) 92 I/O 05/10/17 05/10/17 05/10/17 05/11/17 05/11/17 05/11/17 07:00 15:00 23:00 07:00 15:00 23:00 Intake Total 0 ml 1575 ml 691 ml Output Total 1300 ml 800 ml 1000 ml Balance -1300 ml 1575 ml -109 ml -1000 ml Intake Oral 0 ml 0 ml IV Total 100 ml 210 ml Tube Feeding 1075 ml 381 ml Tube Irrigant 100 ml 100 ml Other 300 ml Output Urine Total 1300 ml 800 ml 1000 ml # Voids 3 # Bowel Movements 0 1 0 Result Diagram: 05/11/17 0539 05/11/17 0539 Imaging Last Impressions Chest CT 05/08/17 0000 Signed Impressions: Service Date/Time: Monday, May 08, 2017 08:15 - CONCLUSION: 1. Bilateral patchy pulmonary parenchymal opacity with posterior upper lobe predominance. This finding is new compared to prior study of September 2016. Differential diagnosis includes infection, asymmetric pulmonary edema, and atelectasis. 2. Bilateral upper lobe predominant pulmonary parenchymal emphysema. 3. Pleural effusion seen on the prior study are no longer seen. Donald Valerio MD Chest X-Ray 05/06/17 0000 Signed Impressions: Service Date/Time: April 13:25 - CONCLUSION: Unchanged bilateral upper lobe infiltrates. Polo Moore Jr., MD Modified Barium Swallow 04/28/17 0000 Signed Impressions: Service Date/Time: Friday, April 28, 2017 13:22 - CONCLUSION: Please see consultation from speech pathology. Bear Oslon MD FACR Abdomen X-Ray 04/27/17 0000 Signed Impressions: Service Date/Time: Thursday, April 27, 2017 13:09 - CONCLUSION: 1. The oral contrast material outlines the duodenal C-loop. No abnormal extravasation is identified. Feeding tube is likely within the distal stomach. 2. Persistent abnormally dilated small bowel in the central abdomen. However, it has improved compared to the earlier CT. Lex Malik MD Abdomen/Pelvis CT 04/26/17 2141 Signed Impressions: Service Date/Time: Thursday, April 27, 2017 00:18 - CONCLUSION: 1. Small bowel dilatation which may reflect ileus or obstruction. Followup examination is recommended if clinically indicated. Gareth Escalante MD Objective Remarks awake and alert, no acute distress oriented x 3 anciteric lungs- no rales regular rhythm abdomen soft + bowel sounds +Peg inplace extremities no edema Procedures Central line 04/27/2017. Discontinued on 05/10/2017. Date of Insertion: Apr 26, 2017 Line: Central Venous Catheter Side: Right Location: Internal, Jugular (vasoactive medication) A/P Problem List: (1) PEG (percutaneous endoscopic gastrostomy) status ICD Code: Z93.1 - Gastrostomy status Status: Chronic (2) Pseudomonas pneumonia ICD Code: J15.1 - Pneumonia due to Pseudomonas Status: Acute (3) Hypokalemia ICD Code: E87.6 - Hypokalemia Status: Acute (4) Ashley sepsis ICD Code: B37.7 - Candidal sepsis Status: Acute (5) Sepsis due to urinary tract infection ICD Code: A41.9 - Sepsis, unspecified organism; N39.0 - Urinary tract infection , site not specified Status: Acute (6) PEG tube malfunction ICD Code: K94.23 - Gastrostomy malfunction Status: Acute (7) Bladder outflow obstruction ICD Code: N32.0 - Bladder-neck obstruction Status: Acute Assessment and Plan Patient is a 72-year-old male with a history of sepsis, HTN, COPD, prostate cancer, bladder outlet obstruction, ventral hernia with mesh placement who came into the hospital with a sudden onset of nausea and vomiting and was leaking stool surrounding his PEG tube. Ileus vs Obstruction- resolved Abdominal Pain, nausea, vomiting- resolved CT of the abdomen and pelvis showed 1. Small bowel dilatation which may reflect ileus or obstruction. General surgery has been following the patient. Abdominal x-ray showed: Oral contrast material supplies the duodenal C-loop, no extravasation was identified. Feeding tube is likely within the distal stomach ; Persistent abnormally dilated small bowel in the central abdomen; However has improved compared to the earlier CT. - Continue with tube feeds with a goal of 45 cc an hour, with water flushes to keep it from clogging. Sepsis, pneumonia HCAP secondary to Klebsiella ESBL - Sputum culture has Klebsiella ESBL. Leukocytosis has improved - Sputum culture from 04/27/2017 grew ESBL Klebsiella and Pseudomonas. Repeat sputum culture from 05/04/2017 grew Pseudomonas. - Chest CT on 05/08/2017, reviewed by me shows bilateral patchy pulmonary opacities. - ID, Pulmonary following. - Central line discontinued, PICC line placed. - continue IV antiibotic till 05/[address] osorio recommensdations Dysphagia, PEG tube placement Modified barium swallow noted aspiration. - Continue to keep patient nothing by mouth with tube feeding. - seen by speech- keep NPO 05/11 COPD/ Pulmonary fibrosis - Stable on room air at this time. - Continue with Symbicort twice a day. - Continue with DuoNeb scheduled and when necessary. Bladder outlet obstruction - Hammond in place. - Continue Flomax. - continue Hammond catheter. - If patient is able to increase activity may need to try bladder training. Full code. Heparin SQ. DC in am after 6 am Zosyn Taylor Linder MD May 11, 2017 11:21
[2017-05-11] MEDS ORDERED: WALKER WHEELS/F1 MIS (13:21)
[2017-05-11] MEDS: TOBRAMYCIN INJ 400 MG in SODIUM CHLORIDE 0.9% INJ 100 ML IV SCH (14:48)
[2017-05-11] MEDS: METOCLOPRAMIDE HCL 10 MG TAB PO SCH ×2 (17:27→21:27)
--- NOTE | 2017-05-11 18:37 | HHI.PR ---
Subjective Remarks 72 YOWM with Pseudomonas Pn,COPD Had CT chest, lung infilt Comfortable on RA No fever, cough or sp Objective Vital Signs Vital Signs Date Time Temp Pulse Resp B/P (MAP) Pulse Ox O2 Delivery O2 Flow Rate FiO2 05/11/17 16:27 97.7 85 18 94/59 (71) 96 05/11/17 12:41 18 05/11/17 12:17 98.2 76 18 104/64 (77) 95 05/11/17 08:22 94 05/11/17 07:56 98.0 82 18 92/55 (67) 91 05/11/17 06:27 18 05/11/17 04:54 94 Room Air 05/11/17 04:04 97.1 75 18 95/54 (68) 92 05/11/17 03:25 78 05/11/17 00:00 97.6 74 18 102/59 (73) 93 05/10/17 21:50 Nasal Cannula 05/10/17 20:00 96.9 72 20 102/61 (75) 94 I/O 05/10/17 05/10/17 05/10/17 05/11/17 05/11/17 05/11/17 07:00 15:00 23:00 07:00 15:00 23:00 Intake Total 0 ml 1575 ml 691 ml Output Total 1300 ml 800 ml 1000 ml 900 ml Balance -1300 ml 1575 ml -109 ml -1000 ml -900 ml Intake Oral 0 ml 0 ml IV Total 100 ml 210 ml Tube Feeding 1075 ml 381 ml Tube Irrigant 100 ml 100 ml Other 300 ml Output Urine Total 1300 ml 800 ml 1000 ml 900 ml # Voids 3 # Bowel Movements 0 1 0 2 Result Diagram: 05/11/1753805/11/17538 Objective Remarks GENERAL: MBMN WM,NAD SKIN: Warm and dry. HEAD: Normocephalic. EYES: No scleral icterus. No injection or drainage. NECK: Supple, trachea midline. No JVD or lymphadenopathy. CARDIOVASCULAR: Regular rate and rhythm without murmurs, gallops, or rubs. RESPIRATORY: Breath sounds equal bilaterally. No accessory muscle use. GASTROINTESTINAL: Abdomen soft, non-tender, nondistended. MUSCULOSKELETAL: No cyanosis, or edema. BACK: Nontender without obvious deformity. No CVA tenderness. A/P Assessment and Plan Pseudomonas Pn COPD HTN PLAN: cont Abx per ID Aerosol nebs TF Stable on RA DC plans underway for home Asher Vincent MD May 11, 2017 18:37
[2017-05-11] MEDS: TAMSULOSIN HCL 0.4 MG CAP PO SCH (21:27)
[2017-05-12] MEDS: PIPERACIL-TAZO 4.5 GM PREMIX 100 ML IV SCH ×3 (00:13→11:56)
[2017-05-12] MEDS: ACETAMINOPHEN/HYDROcodone 325 MG/10 MG TAB PO PRN ×4 (00:15→14:04)
[2017-05-12] MEDS: HYDROmorphone HCL PF 0.5 MG/0.5 ML SYRINGE IV PUSH PRN ×2 (01:56→07:01)
[2017-05-12] MEDS: CHLORHEXIDINE GLUCONATE 2 % 1 PACK (2 CLOTHS) TOP SCH (04:00)
[2017-05-12 05:42] VITALS: BP 94/57; PULSE 69; RESP 16; TEMP 97.6; O2SAT 93
[2017-05-12] MEDS: HEPARIN SODIUM - SQ 10,000 UNITS/ML VIAL SQ SCH ×2 (05:45→14:04)
[2017-05-12] MEDS: FREE WATER G-TUBE SCH ×3 (05:46→11:38)
--- NOTE | 2017-05-12 07:23 | HHI.PR ---
Subjective Remarks no complains looking forward to going home Objective Vitals Vital Signs Date Time Temp Pulse Resp B/P (MAP) Pulse Ox O2 Delivery O2 Flow Rate FiO2 05/12/17 05:42 97.6 69 16 94/57 (69) 93 05/11/17 21:29 69 99/61 (74) 05/11/17 21:00 69 05/11/17 20:40 Room Air 05/11/17 20:09 93 05/11/17 20:00 98.2 69 18 82/52 (62) 93 05/11/17 16:27 97.7 85 18 94/59 (71) 96 05/11/17 12:41 18 05/11/17 12:17 98.2 76 18 104/64 (77) 95 05/11/17 08:22 94 05/11/17 07:56 98.0 82 18 92/55 (67) 91 I/O 05/11/17 05/11/17 05/11/17 05/12/17 05/12/17 05/12/17 07:00 15:00 23:00 07:00 15:00 23:00 Intake Total 100 ml Output Total 1000 ml 900 ml Balance -1000 ml -900 ml 100 ml IV Total 100 ml Output Urine Total 1000 ml 900 ml # Bowel Movements 0 2 Result Diagram: 05/11/17 0539 05/11/17 0539 Imaging Last Impressions Chest CT 05/08/17 0000 Signed Impressions: Service Date/Time: Monday, May 08, 2017 08:15 - CONCLUSION: 1. Bilateral patchy pulmonary parenchymal opacity with posterior upper lobe predominance. This finding is new compared to prior study of September 2016. Differential diagnosis includes infection, asymmetric pulmonary edema, and atelectasis. 2. Bilateral upper lobe predominant pulmonary parenchymal emphysema. 3. Pleural effusion seen on the prior study are no longer seen. Donald Valerio MD Chest X-Ray 05/06/17 0000 Signed Impressions: Service Date/Time: April 13:25 - CONCLUSION: Unchanged bilateral upper lobe infiltrates. Polo Moore Jr., MD Modified Barium Swallow 04/28/17 0000 Signed Impressions: Service Date/Time: Friday, April 28, 2017 13:22 - CONCLUSION: Please see consultation from speech pathology. Bear Olson MD FACR Abdomen X-Ray 04/27/17 0000 Signed Impressions: Service Date/Time: Thursday, April 27, 2017 13:09 - CONCLUSION: 1. The oral contrast material outlines the duodenal C-loop. No abnormal extravasation is identified. Feeding tube is likely within the distal stomach. 2. Persistent abnormally dilated small bowel in the central abdomen. However, it has improved compared to the earlier CT. Lex Malik MD Abdomen/Pelvis CT 04/26/17 2141 Signed Impressions: Service Date/Time: Thursday, April 27, 2017 00:18 - CONCLUSION: 1. Small bowel dilatation which may reflect ileus or obstruction. Followup examination is recommended if clinically indicated. Gareth Escalante MD Objective Remarks awake and alert, no acute distress oriented x 3 anicteric lungs- no rales regular rhythm abdomen soft + bowel sounds +Peg inplace extremities no edema Procedures Central line 04/27/2017. Discontinued on 05/10/2017. Urinary Catheter: Yes Hammond insert reason: Obstruction/Retention Date of Insertion: Apr 26, 2017 Date of Removal: May 11, 2017 Line: Central Venous Catheter Side: Right Location: Internal, Jugular (vasoactive medication) A/P Problem List: (1) PEG (percutaneous endoscopic gastrostomy) status ICD Code: Z93.1 - Gastrostomy status Status: Chronic (2) Pseudomonas pneumonia ICD Code: J15.1 - Pneumonia due to Pseudomonas Status: Acute (3) Hypokalemia ICD Code: E87.6 - Hypokalemia Status: Acute (4) Ashley sepsis ICD Code: B37.7 - Candidal sepsis Status: Acute (5) Sepsis due to urinary tract infection ICD Code: A41.9 - Sepsis, unspecified organism; N39.0 - Urinary tract infection , site not specified Status: Acute (6) PEG tube malfunction ICD Code: K94.23 - Gastrostomy malfunction Status: Acute (7) Bladder outflow obstruction ICD Code: N32.0 - Bladder-neck obstruction Status: Acute Assessment and Plan Patient is a 72-year-old male with a history of sepsis, HTN, COPD, prostate cancer, bladder outlet obstruction, ventral hernia with mesh placement who came into the hospital with a sudden onset of nausea and vomiting and was leaking stool surrounding his PEG tube. Ileus vs Obstruction- resolved Abdominal Pain, nausea, vomiting- resolved CT of the abdomen and pelvis showed 1. Small bowel dilatation which may reflect ileus or obstruction. General surgery has been following the patient. Abdominal x-ray showed: Oral contrast material supplies the duodenal C-loop, no extravasation was identified. Feeding tube is likely within the distal stomach ; Persistent abnormally dilated small bowel in the central abdomen; However has improved compared to the earlier CT. - Continue with tube feeds with a goal of 45 cc an hour, with water flushes to keep it from clogging. Sepsis, pneumonia HCAP secondary to Klebsiella ESBL - Sputum culture has Klebsiella ESBL. Leukocytosis has improved - Sputum culture from 04/27/2017 grew ESBL Klebsiella and Pseudomonas. Repeat sputum culture from 05/04/2017 grew Pseudomonas. - Chest CT on 05/08/2017, reviewed by me shows bilateral patchy pulmonary opacities. - ID, Pulmonary following. - Central line discontinued, PICC line placed. - continue IV antiibotic- Zosyn till 05/[address] Yanez recommendations Dysphagia, PEG tube placement Modified barium swallow noted aspiration. - Continue to keep patient nothing by mouth with tube feeding. - seen by speech- keep NPO 05/11 COPD/ Pulmonary fibrosis- good sats at [facility] - Stable on room air at this time. - Continue with Symbicort twice a day. - Continue with DuoNeb scheduled and when necessary. Bladder outlet obstruction - Hammond in place.- placed 04/26. - Continue Flomax. - continue Hammond catheter. - If patient is able to increase activity may need to try bladder training. or voiding trial Full code. Heparin SQ. DC in am after 6 am Zosyn dose DC home today with home [facility]- antibiotic arrangements. CM assisting Taylor Domínguez MD May 12, 2017 07:23
--- NOTE | 2017-05-12 07:34 | HHI.FF ---
Face to Face Verification Diagnosis: (1) Bladder outflow obstruction (2) Klebsiella pneumoniae pneumonia (3) PEG tube malfunction Physical Therapy Order: Evaluate and Treat Occupational Therapy Order: Evaluate and Treat, Improve ADL, Gross motor coordination Home Health Nursing Order: Medical education Signs/symptoms of disease process Wound care and dressing changes Hammond catheter maintenance Home Health Aide Order: To Assist In: Bathing and personal care Air Conditioning Manager Order: To Evaluate: Living conditions/environment, Support services I have seen patient Ravindra Thomason on 05/12/17. My clinical findings support the need for the requested home health care services because: Ltd mobility - disease progression Deconditioned w/ increased weakness Limited ability to care for self High risk of falls Infection w/ risk of complications I certify that my clinical findings support that this patient is homebound because: Hx COPD- exertion dyspnea/weakness Need for psychosocial assistance [id number] bed/chair Home health care bnursing- please assess and doi voiding trials Taylor Domínguez MD May 12, 2017 07:34
--- NOTE | 2017-05-12 07:36 | HHI.DS ---
Discharge Summary Admission Date Apr 26, 2017 at 22:58 Discharge Date: May 12, 2017 Admitting Diagnosis Sepsis, Fecal leakage around Peg tube, vomiting (1) Pseudomonas pneumonia ICD Code: J15.1 - Pneumonia due to Pseudomonas Diagnosis: Principal Status: Acute (2) PEG (percutaneous endoscopic gastrostomy) status ICD Code: Z93.1 - Gastrostomy status Diagnosis: Principal Status: Chronic (3) Sepsis due to urinary tract infection ICD Code: A41.9 - Sepsis, unspecified organism; N39.0 - Urinary tract infection , site not specified Status: Acute (4) Hypokalemia ICD Code: E87.6 - Hypokalemia Diagnosis: Secondary Status: Acute (5) Ashley sepsis ICD Code: B37.7 - Candidal sepsis Diagnosis: Secondary Status: Acute (6) PEG tube malfunction ICD Code: K94.23 - Gastrostomy malfunction Status: Acute (7) Bladder outflow obstruction ICD Code: N32.0 - Bladder-neck obstruction Diagnosis: Secondary Status: Acute Procedures Central line 04/27/2017. Discontinued on 05/10/2017. Brief History - From Admission 72 year old unfortunate male presents with a history of sudden onset( 2 hours ago) of nausea and vomiting 1, then leakage from the area around his PEG tube that appeared to be stool. Ambulance services were called and the patient was noted to have what looked like fecal matter leaking around his PEG tube. The patient reports that he last received a PEG tube feeding early in the morning today. He reportedly was discharged from [facility] earlier today. He was in the rehabilitation for [facility] for about a month. Prior to that he was at [facility] for a ten-month. Dr. Jon Roberts is his surgeon. He was also noticed by EMT to be hypotensive with a blood pressure reportedly of 58/42 that improved to 80/43 with administration of normal saline a 1400 mL IV fluid bolus. The case was discussed by ED attending with general surgeon on-call Dr. Banks who requests to repeat a CT of the abdomen stat and admit patients to critical care services. CBC/BMP: 05/11/17 0539 05/11/17 0539 Significant Findings Laboratory Tests Test 05/11/17 05:39 Red Blood Count 2.66 MIL/MM3 (4.50-5.90) Hemoglobin 9.2 GM/DL (13.0-17.0) Hematocrit 27.0 % (39.0-51.0) Mean Corpuscular Volume 101.2 FL (80.0-100.0) Mean Corpuscular Hemoglobin 34.7 PG (27.0-34.0) Monocytes (%) (Auto) 8.6 % (0.0-8.0) Eosinophils (%) (Auto) 10.1 % (0.0-4.0) Eosinophils # (Auto) 0.6 TH/MM3 (0-0.4) Blood Urea Nitrogen 20 MG/DL (7-18) Random Glucose 118 MG/DL (74-106) Estimat Glomerular Filtration Rate 74 ML/MIN (>89) Imaging Last Impressions Chest CT 05/08/17 0000 Signed Impressions: Service Date/Time: Monday, May 08, 2017 08:15 - CONCLUSION: 1. Bilateral patchy pulmonary parenchymal opacity with posterior upper lobe predominance. This finding is new compared to prior study of September 2016. Differential diagnosis includes infection, asymmetric pulmonary edema, and atelectasis. 2. Bilateral upper lobe predominant pulmonary parenchymal emphysema. 3. Pleural effusion seen on the prior study are no longer seen. Donald Valerio MD Chest X-Ray 05/06/17 0000 Signed Impressions: Service Date/Time: April 13:25 - CONCLUSION: Unchanged bilateral upper lobe infiltrates. Polo Moore Jr., MD Modified Barium Swallow 04/28/17 0000 Signed Impressions: Service Date/Time: Friday, April 28, 2017 13:22 - CONCLUSION: Please see consultation from speech pathology. Bear Olson MD FACR Abdomen X-Ray 04/27/17 0000 Signed Impressions: Service Date/Time: Thursday, April 27, 2017 13:09 - CONCLUSION: 1. The oral contrast material outlines the duodenal C-loop. No abnormal extravasation is identified. Feeding tube is likely within the distal stomach. 2. Persistent abnormally dilated small bowel in the central abdomen. However, it has improved compared to the earlier CT. Lex Malik MD Abdomen/Pelvis CT 04/26/17 1482 Signed Impressions: Service Date/Time: Thursday, April 27, 2017 00:18 - CONCLUSION: 1. Small bowel dilatation which may reflect ileus or obstruction. Followup examination is recommended if clinically indicated. Gareth Escalante MD PE at Discharge awake and alert, no acute distress oriented x 3 anicteric lungs- no rales regular rhythm abdomen soft + bowel sounds +Peg inplace extremities no edema menendez in place- draining clear urine Pt update on day of discharge awwke and alert, clear speech interactive no pain PEG tube working Hospital Course Patient is a 72-year-old male with a history of sepsis, HTN, COPD, prostate cancer, bladder outlet obstruction, ventral hernia with mesh placement who came into the hospital with a sudden onset of nausea and vomiting and was leaking stool surrounding his PEG tube. Ileus vs Obstruction- resolved Abdominal Pain, nausea, vomiting- resolved CT of the abdomen and pelvis showed 1. Small bowel dilatation which may reflect ileus or obstruction. General surgery has been following the patient. Abdominal x-ray showed: Oral contrast material supplies the duodenal C-loop, no extravasation was identified. Feeding tube is likely within the distal stomach ; Persistent abnormally dilated small bowel in the central abdomen; However has improved compared to the earlier CT. - Continue with tube feeds with a goal of 45 cc an hour, with water flushes to keep it from clogging. Sepsis, pneumonia HCAP secondary to Klebsiella ESBL - Sputum culture has Klebsiella ESBL. Leukocytosis has improved - Sputum culture from 04/27/2017 grew ESBL Klebsiella and Pseudomonas. Repeat sputum culture from 05/04/2017 grew Pseudomonas. - Chest CT on 05/08/2017, reviewed by me shows bilateral patchy pulmonary opacities. - ID, Pulmonary following. - Central line discontinued, PICC line placed. - continue IV antiibotic- Zosyn till 05/[address] Yanez recommendations Dysphagia, PEG tube placement Modified barium swallow noted aspiration. - Continue to keep patient nothing by mouth with tube feeding. - seen by speech- keep NPO 05/11 COPD/ Pulmonary fibrosis- good sats at [facility] - Stable on room air at this time. - Continue with Symbicort twice a day. Bladder outlet obstruction - Menendez in place.- placed 04/26. - Continue Flomax. - continue Menendez catheter. - If patient is able to increase activity may need to try bladder training. or voiding trial -OP ff up- Home health care to assess voiding Full code. Heparin SQ. DC ithis am after zosyn dose DC home today with [facility]- antibiotic arrangements. CM assisting Pt Condition on Discharge: Good Discharge Disposition: Disch w/ Home Health Serv Discharge Time: <= 30 minutes Discharge Instructions DIET: Follow Instructions for: On Tube Feeding Activities you can perform: Regular-No Restrictions Follow up Referrals: PCP Follow-up - 1 Week PCP Follow-up Pulmonology - 1 Week with Asher Vincent MD SNF/EMILY/ with [facility] Taylor Domínguez MD May 12, 2017 07:36
[2017-05-12] MEDS: SODIUM CHLORIDE 0.9% FLUSH 10 ML FLUSH IV FLUSH SCH ×2 (07:53→07:59)
[2017-05-12] MEDS: LACTOBACILLUS ACIDOPHILUS TAB PO SCH (07:58)
[2017-05-12] MEDS: METOCLOPRAMIDE HCL 10 MG TAB PO SCH ×2 (07:58→11:56)
[2017-05-12] MEDS: RESP: ALBUTEROL 2.5 MG/IPRATROPIUM 0.5 MG NEB (PRN) NEB ×2 (07:58→10:59)
[2017-05-12] MEDS: BUDESONIDE-FORMOTEROL 160/4.5 MCG INHALER INH SCH (07:59)
[2017-05-12 08:00] VITALS: BP 106/55; PULSE 73; PULSE 75; RESP 18; TEMP 98; O2SAT 94
[2017-05-12] MEDS: VITAMINS A & D OINT 60 GM TUBE TOPICAL SCH (08:00)
[2017-05-12] MEDS ORDERED: LANSOPRAZOLE SOLUTAB 30 MG TAB NG SCH (09:00)
[2017-05-12 12:00] VITALS: BP 105/61; PULSE 88; RESP 18; TEMP 97.2; O2SAT 91
[2017-05-12] MEDS ORDERED: COMMODE 3-IN-11 MIS (13:13)
[2017-05-12] MEDS ORDERED: WHEEMIS3 (13:15)
--- NOTE | 2017-05-12 17:32 | HHI.PR ---
Subjective Remarks 72 YOWM with Pseudomonas Pn,COPD Had CT chest, lung infilt Comfortable on RA No fever, cough or sp Objective Vital Signs Vital Signs Date Time Temp Pulse Resp B/P (MAP) Pulse Ox O2 Delivery O2 Flow Rate FiO2 05/12/17 12:00 97.2 88 18 105/61 (76) 91 05/12/17 08:00 98.0 75 18 106/55 (72) 94 05/12/17 08:00 73 05/12/17 05:42 97.6 69 16 94/57 (69) 93 05/11/17 21:29 69 99/61 (74) 05/11/17 21:00 69 05/11/17 20:40 Room Air 05/11/17 20:09 93 05/11/17 20:00 98.2 69 18 82/52 (62) 93 I/O 05/11/17 05/11/17 05/11/17 05/12/17 05/12/17 05/12/17 07:00 15:00 23:00 07:00 15:00 23:00 Intake Total 100 ml Output Total 1000 ml 900 ml 1600 ml Balance -1000 ml -900 ml -1500 ml IV Total 100 ml Output Urine Total 1000 ml 900 ml 1600 ml # Bowel Movements 0 2 Result Diagram: 05/11/1753805/11/17538 Objective Remarks GENERAL: MBMN WM,NAD SKIN: Warm and dry. HEAD: Normocephalic. EYES: No scleral icterus. No injection or drainage. NECK: Supple, trachea midline. No JVD or lymphadenopathy. CARDIOVASCULAR: Regular rate and rhythm without murmurs, gallops, or rubs. RESPIRATORY: Breath sounds equal bilaterally. No accessory muscle use. GASTROINTESTINAL: Abdomen soft, non-tender, nondistended. MUSCULOSKELETAL: No cyanosis, or edema. BACK: Nontender without obvious deformity. No CVA tenderness. A/P Assessment and Plan Pseudomonas Pn COPD HTN PLAN: cont Abx per ID Aerosol nebs TF Stable on RA DC plans for home with home health svc Stable from pulm standpoint Asher Vincent MD May 12, 2017 17:32
== END 2017-05-12 15:30 | disposition home health service (06) | DRG 871 ==
LOC: NEPC 21:25 → NEDA 22:58 → N03A 04-27 00:25 → N05A 05-01 01:18
PROVIDERS: ADMIT Internal Medicine Critical Care Medicine; ATTEND Internal Medicine
PROC: 02HV33Z Insertion of Infusion Device into Superior Vena Cava, Percutaneous Approach (ICD-10-PCS; principal; 2017-04-27)
DX: A41.9 Sepsis, unspecified organism (principal); J69.0 Pneumonitis due to inhalation of food and vomit; J96.90 Respiratory failure, unspecified, unspecified whether with hypoxia or hypercapnia; J15.0 Pneumonia due to Klebsiella pneumoniae; J15.1 Pneumonia due to Pseudomonas; K56.609 Unspecified intestinal obstruction, unspecified as to partial versus complete obstruction; L89.154 Pressure ulcer of sacral region, stage 4; J44.0 Chronic obstructive pulmonary disease with (acute) lower respiratory infection; K94.23 Gastrostomy malfunction; J44.1 Chronic obstructive pulmonary disease with (acute) exacerbation; B37.49 Other urogenital candidiasis; K56.7 Ileus, unspecified; J84.10 Pulmonary fibrosis, unspecified; Z99.81 Dependence on supplemental oxygen; M06.9 Rheumatoid arthritis, unspecified; E86.0 Dehydration; E83.42 Hypomagnesemia; E83.39 Other disorders of phosphorus metabolism; E87.6 Hypokalemia; N32.0 Bladder-neck obstruction; E78.5 Hyperlipidemia, unspecified; Z16.12 Extended spectrum beta lactamase (ESBL) resistance; Y95 Nosocomial condition; J43.2 Centrilobular emphysema; R13.10 Dysphagia, unspecified; K42.9 Umbilical hernia without obstruction or gangrene; K43.2 Incisional hernia without obstruction or gangrene; F17.210 Nicotine dependence, cigarettes, uncomplicated; F41.9 Anxiety disorder, unspecified; I10 Essential (primary) hypertension; N28.9 Disorder of kidney and ureter, unspecified; Z85.46 Personal history of malignant neoplasm of prostate; Z92.3 Personal history of irradiation; Z87.11 Personal history of peptic ulcer disease
CPT/HCPCS: 36556; 36569; 71010; 71250; 74000; 74176; 74230; 76937; 80048; 80053; 81001; 82550; 82948; 83036; 83605; 83690; 83735; 83880; 84100; 84132; 84484; 85007; 85025; 85027; 85610; 85730; 87040; 87070; 87077; 87086; 87186; 87205; 87641; 93005; 94150; 94640; 94664; 96365; 96375; J1170; C9113; J0131; J1450; J1642; J1644; J2185; J2248; J2405; J2543; J2765; J3010; J3260; J3370; J3475; J3480; J7030; J7050

== ENCOUNTER 2017-05-13 14:45 | Emergency (ER) | payer MEDICARE, OTHER ==
[~2017-05-13] VITALS: Ht 172.7 cm; Wt 56.0 kg
[~2017-05-13 14:45] MED LIST changes: -CARD120C4 PO; -CEFT500T3 PO; +COMMODE 3-IN-11 MIS; +EPIN1INJ21 IV PUSH; +EPIN1INJ21 SQ; -HYDR-3366 PO; +HYDR-3583 PO; -MULT-135 PO; -PRED5TAB PO; +SOLU250I IV PUSH; +WALKER WHEELS/F1 MIS; +WHEEMIS3; +[UNRECOGNIZED DRUG - CODE] IV
[2017-05-13 14:48] VITALS: BP 126/82; PULSE 118; RESP 20; TEMP 97.5; O2SAT 93
--- NOTE | 2017-05-13 15:10 | PD ---
HPI Chief Complaint: Pretzel Twister Problem Time Seen by Provider: 15:07 Travel History International Travel<30 days: No Contact w/Intl Traveler<30days: No Traveled to known affect area: No History of Present Illness HPI Patient is a 72-year-old male presenting to the emergency department for evaluation of a clogged PEG tube. Patient states his home health nurse was unable to flush it so he presented to the emergency department. He has no physical complaints, no abdominal pain. PFSH Past Medical History Hx Anticoagulant Therapy: No Arthritis: Yes (RA) Asthma: No Heart Rhythm Problems: No Cancer: Yes (PROSTATE) Cardiovascular Problems: Yes High Cholesterol: Yes Chemotherapy: No Chest Pain: No Congestive Heart Failure: Yes COPD: Yes Cerebrovascular Accident: No Coronary Artery Disease: No Diabetes: Yes Diminished Hearing: No Endocrine: No Gastrointestinal Disorders: Yes (HX PERFORATED GASTRIC ULCER) GERD: Yes Genitourinary: Yes (urinary retention) Hepatitis: No Hiatal Hernia: No Hypertension: Yes Immune Disorder: No Implanted Vascular Access Dvce: No Kidney Stones: No Musculoskeletal: Yes Neurologic: No Psychiatric: No Reproductive: No Respiratory: Yes (COPD) Integumentary: Yes (SHINGLES) Radiation Therapy: Yes Renal Failure: No Sleep Apnea: No Ulcer: Yes Past Surgical History Abdominal Surgery: Yes (hernia ,multiple abd surgs) AICD: No Appendectomy: Yes Arteriovenous Shunt: No Cardiac Surgery: No Ear Surgery: No Endocrine Surgery: No Eye Surgery: Yes (LETY CATARACT) Genitourinary Surgery: No Hysterectomy: No Insulin Pump: No Joint Replacement: No Oral Surgery: No Pacemaker: No Thoracic Surgery: No Other Surgery: Yes Social History Alcohol Use: No Tobacco Use: No Substance Use: No Allergies-Medications (Allergen,Severity, Reaction): Coded Allergies: *MDRO Multi-Drug Resistant Organism (Verified Adverse Reaction, Unknown, 05/13/17) MRSA (abdominal wound) 2015 per 04/10/2015 H&P MRSA PCR Screens NEGATIVE - 08/10/16 & 08/21/16 CLEARED PER INFECTION CONTROL PROTOCOL Reported Meds & Prescriptions Reported Meds & Active Scripts Active Wheelchair (Device) 1 Mis Mis Ea .ROUTE DIRECTED Commode 3-in-1 (Device) 1 Mis Mis Ea .ROUTE DIRECTED Walker with Front Wheels (Device) 1 Mis Mis Ea .ROUTE DIRECTED Hydrocodone-Acetamin 10-325 mg (Hydrocodone/Acetaminophen) 10 Mg-325 Mg Tablet 1 Tab PO Q6HR PRN Epinephrine Inj 1 Mg/Ml (1 Ml) Inj 0.3 Mg SQ ONCE PRN Give with any signs of respiratory distress. Epinephrine Inj 1 Mg/Ml (1 Ml) Inj 0.3 Mg IV PUSH ONCE PRN Solu-Cortef Inj (Hydrocortisone Sodium Succinate) 250 Mg/2 Ml Inj 250 Mg IV PUSH ONCE PRN Give over 30-60 seconds. Piperacillin-Tazobactam Inj 4-0.5 Mg Inj 18 Gm IV CONTINUOUS 4 Days Symbicort Inh (Budesonide/Formoterol Fumarate) 160-4.5 Mcg/Act Aero 2 Puff INH BID Reported Flomax (Tamsulosin HCl) 0.4 Mg Cap 0.4 Mg PO HS Protonix (Pantoprazole Sodium) 40 Mg Tab 40 Mg PO DAILY Trazodone (Trazodone HCl) 50 Mg Tab 50-100 Mg PO HS Duoneb (Ipratropium-Albuterol Neb) 0.5-2.5 Mg/3 Ml Neb 1 Vial NEB QID PRN Combivent Respimat Inh (Ipratropium-Albuterol Inh) 20-100 Skilled Nursing/Act Aero 1 Puff INH Q4HR PRN Review of Systems Except as stated in HPI: all other systems reviewed are Neg Gastrointestinal: Positive: Other (peg tube malfunction) Physical Exam Narrative GENERAL: Well-developed, well-nourished, alert male. Resting in no acute distress. SKIN: Warm and dry. HEAD: Normocephalic. EYES: No scleral icterus. No injection or drainage. NECK: Supple, trachea midline. No JVD or lymphadenopathy. CARDIOVASCULAR: Regular rate and rhythm without murmurs, gallops, or rubs. RESPIRATORY: Breath sounds equal bilaterally. No accessory muscle use. GASTROINTESTINAL: Abdomen soft, non-tender, nondistended. PEG tube MUSCULOSKELETAL: No cyanosis, or edema. BACK: Nontender without obvious deformity. No CVA tenderness. Data Data Last Documented VS Vital Signs Date Time Temp Pulse Resp B/P (MAP) Pulse Ox O2 Delivery O2 Flow Rate FiO2 05/13/17 14:48 97.5 118 20 126/82 (97) 93 Room Air Orders Orders Ed Discharge Order (05/13/17 15:07) MDM Medical Decision Making Medical Screen Exam Complete: Yes Emergency Medical Condition: Yes Interpretation(s) Vital Signs Date Time Temp Pulse Resp B/P (MAP) Pulse Ox O2 Delivery O2 Flow Rate FiO2 05/13/17 14:48 97.5 118 20 126/82 (97) 93 Room Air Differential Diagnosis Occluded PEG tube versus normal examination versus dislodged feeding tube versus other Narrative Course Patient presented for evaluation of an occluded feeding tube. Feeding tube was assessed and was flushed, initially it was difficult to flushed and a clear diet and flushed without difficulty. Patient tolerated well. Patient will be discharged home. He is advised to ensure that when feeding tube is use at this flushed well to prevent occlusion. He was occurs return to emergency department for any new or worsening symptoms. Patient verbalized understanding. Patient stable for discharge. HR elevated at 118 on arrival, rechecked prior to discharge at 102 Diagnosis Primary Impression: PEG tube malfunction Referrals: Primary Care Physician Patient Instructions: General Instructions, How to Use and Care for Your PEG Tube (ED) Additional Instructions: Make sure PEG tube is flushed well after each use. Follow up with your primary doctor Return to the Emergency Department for any new or worsening symptoms. Med/Other Pt SpecificInfo: No Change to Meds Disposition: 01 DISCHARGE HOME Condition: Stable Brielle Tavares May 13, 2017 15:10
[2017-05-13 15:19] VITALS: PULSE 102
== END 2017-05-13 15:56 | disposition home or self-care (01) ==
LOC: NEPC 14:45
DX: K94.23 Gastrostomy malfunction (principal); M06.9 Rheumatoid arthritis, unspecified; E78.00 Pure hypercholesterolemia, unspecified; I11.0 Hypertensive heart disease with heart failure; I50.9 Heart failure, unspecified; J44.9 Chronic obstructive pulmonary disease, unspecified; E11.9 Type 2 diabetes mellitus without complications; K21.9 Gastro-esophageal reflux disease without esophagitis; Z79.899 Other long term (current) drug therapy
CPT/HCPCS: 99282

== ENCOUNTER → 2017-06-15 | Outpatient (CLI) | payer MEDICARE, OTHER ==
--- NOTE | 2017-06-15 12:09 | RADRPT ---
EXAM DATE/TIME: 06/15/2017 10:28 [place] COMPARISON: BA SWALLOW W/SPEECH PATHOLOGY, April 28, 2017, 13:22. INDICATIONS : Dysphagia FLUORO TIME: 1.7 minutes IMAGE COUNT: 2 CONTRAST: Dose as prescribed by speech pathologist. MEDICAL HISTORY : Chronic obstructive pulmonary disease. Carcinoma, prostatic. Hypertension. SURGICAL HISTORY : Appendectomy. peg tube, intubation while in the hospital ENCOUNTER: Initial ACUITY: 3 months PAIN SCORE: 0/10 LOCATION: Bilateral neck FINDINGS: A modified barium swallow was performed with speech pathology. Patient was given a variety of liquids to swallow. For a full detailed report, see report by the speech pathologist. CONCLUSION: Negative for jazzmine aspiration, please see the full report from speech pathology. Bear Olson MD FACR on June 15, 2017 at 12:07 Board Certified Radiologist. This report was verified electronically.
== END ==
LOC: HRAD 10:08
DX: R13.10 Dysphagia, unspecified (principal)
CPT/HCPCS: 74230; 92611; G8996; G8997; G8998

== ENCOUNTER 2017-12-02 11:59 | Emergency (ER) | payer MEDICARE, MEDICAID ==
[~2017-12-02] VITALS: Ht 172.7 cm; Wt 55.0 kg
[~2017-12-02 11:59] MED LIST changes: +ALLO100 G-TUBE; +ALPR.25 G-TUBE; +AMIO200T G-TUBE; +ASPI81TA16 G-TUBE; +BUDE0.5S NEB; +CHLO.12%30 SWISH-SPIT; +CLAR10TA7 PO; +DOXA1TAB35 G-TUBE; +FLUT50SP NASAL; +HYOS1TAB9 G-TUBE; +IPRASOL INH; +LACT1CAP18 G-TUBE; +LISI10TA3 G-TUBE; +METO25TA3 PO; +OMEP20CA2 G-TUBE; +PERC10TA27 G-TUBE; +POLY99.0 EACH EYE; +TAMS0.4C4 PO; +TYLE325T G-TUBE; +VANC1CAP6 G-TUBE
[2017-12-02 12:25] VITALS: BP 104/65; PULSE 97; RESP 17; TEMP 97.9
--- NOTE | 2017-12-02 12:59 | PD ---
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 He has been losing weight and there has been some concern that his G-tube is in the wrong place. He went to see Dr. Bonner 2 weeks ago who ordered a CT abdomen pelvis. He had the CT done at [facility] but does not know the results. He otherwise has no abdominal pain, fevers or chills. PFSH Past Medical History Hx Anticoagulant Therapy: No Arthritis: Yes (RA) Asthma: No Anxiety: Yes Heart Rhythm Problems: No Cancer: Yes (PROSTATE) Cardiovascular Problems: Yes High Cholesterol: Yes Chemotherapy: No Chest Pain: No Congestive Heart Failure: Yes COPD: Yes Cerebrovascular Accident: No Coronary Artery Disease: Yes Diabetes: Yes Patient Takes Glucophage: No Diminished Hearing: No Endocrine: No Gastrointestinal Disorders: Yes (HX PERFORATED GASTRIC ULCER) GERD: Yes Genitourinary: Yes (urinary retention) Hepatitis: No Hiatal Hernia: No Hypertension: Yes Immune Disorder: No Implanted Vascular Access Dvce: No Kidney Stones: No Medical other: Yes (SHINGLES IN PAST, RADIATION FOR PROSTATE CANCER) Musculoskeletal: Yes Neurologic: No Psychiatric: No Reproductive: No Respiratory: Yes (COPD) Integumentary: Yes (SHINGLES) Radiation Therapy: Yes Renal Failure: No Sleep Apnea: No Thyroid Disease: No Ulcer: Yes Tetanus Vaccination: > 5 Years Past Surgical History Abdominal Surgery: Yes (hernia ,multiple abd surgs) AICD: No Appendectomy: Yes Arteriovenous Shunt: No Cardiac Surgery: No Ear Surgery: No Endocrine Surgery: No Eye Surgery: Yes (LETY CATARACT) Genitourinary Surgery: No Hysterectomy: No Insulin Pump: No Joint Replacement: No Oral Surgery: No Pacemaker: No Thoracic Surgery: No Other Surgery: Yes (PEG tube; epiglottic) Social History Alcohol Use: Yes (occ) Tobacco Use: Yes (1/2 pack a day) Substance Use: No Allergies-Medications (Allergen,Severity, Reaction): Coded Allergies: No Known Allergies (Verified Allergy, Unknown, 12/02/17) *MDRO Multi-Drug Resistant Organism (Verified Adverse Reaction, Unknown, ) MRSA (abdominal wound) 2015 per 04/10/2015 H&P MRSA PCR Screens NEGATIVE - 08/10/16 & 08/21/16 CLEARED PER INFECTION CONTROL PROTOCOL Reported Meds & Prescriptions Reported Meds & Active Scripts Active Wheelchair (Device) 1 Mis Mis Ea .ROUTE DIRECTED Commode 3-in-1 (Device) 1 Mis Mis Ea .ROUTE DIRECTED Walker with Front Wheels (Device) 1 Mis Mis Ea .ROUTE DIRECTED Hydrocodone-Acetamin 10-325 mg (Hydrocodone/Acetaminophen) 10 Mg-325 Mg Tablet 1 Tab PO Q6HR PRN Zyloprim (Allopurinol) 100 Mg Tab 100 Mg G-TUBE DAILY Artificial Tears Opth Drops (Polyvinyl Alcohol) 1.4% Soln 1 Drop EACH EYE Q8HR Fluticasone Nasal [place] 50 Mcg/Act Naspr 1 [place] NASAL BID 50 mcg/spray Reported Amlodipine (Amlodipine Besylate) 5 Mg Tab 5 Mg PO DAILY Aspirin Adult Low Strength (Aspirin) 81 Mg Tabdr 81 Mg G-TUBE DAILY Duoneb (Ipratropium-Albuterol Neb) 0.5-2.5 Mg/3 Ml Neb 1 Nebule INH Q4HR NEB Chlorhexidine Gluconate (Mouth) Liq (Chlorhexidine Gluconate) 0.12% Soln 15 Ml SWISH-SPIT BID Budesonide Neb 0.5 Mg/2 Ml Neb 0.5 Mg NEB Q12HR NEB Flomax (Tamsulosin HCl) 0.4 Mg Cap 0.4 Mg PO HS Trazodone (Trazodone HCl) 50 Mg Tab 50-100 Mg PO HS Combivent Respimat Inh (Ipratropium-Albuterol Inh) 20-100 Fpc/Act Aero 1 Puff INH Q4HR PRN Review of Systems Except as stated in HPI: all other systems reviewed are Neg Physical Exam Narrative GENERAL: Cachectic in no acute distress SKIN: Focused skin assessment warm and dry. HEAD: Atraumatic. Normocephalic. EYES: Pupils equal and round. No injection or drainage. ENT: Moist mucous membranes NECK: Trachea midline. CARDIOVASCULAR: Regular rate and rhythm. No murmur appreciated. RESPIRATORY: Clear to auscultation. Breath sounds equal bilaterally. GASTROINTESTINAL: Abdomen soft, reducible large ventral hernia below the gastric stoma. MUSCULOSKELETAL: No obvious deformities. NEUROLOGICAL: Awake and alert. No obvious cranial nerve deficits. Moving all extremities. PSYCHIATRIC: Appropriate mood and affect; insight and judgment normal. Data Data Last Documented VS Vital Signs Date Time Temp Pulse Resp B/P (MAP) Pulse Ox O2 Delivery O2 Flow Rate FiO2 12/02/17 12:51 18 Room Air 12/02/17 12:25 97.9 97 104/65 (78) Orders Orders Abdomen, Single View (12/02/17 ) Diatrizoate Liq ( Gastroview Liq) (12/02/17 14:25) Ct Abd/Pel W/O Iv Contrast (12/02/17 ) MDM Medical Decision Making Medical Screen Exam Complete: Yes Emergency Medical Condition: Yes Interpretation(s) Afebrile, mild tachycardia, normotensive CT demonstrates positioning of the G-tube in the distal stomach Differential Diagnosis G-tube malfunction, G-tube migration Narrative Course This is a 72-year-old male who presents to the emergency department having and his G-tube fall out. He has prominence of the ventral hernia and there was some concern that the G-tube may be misplaced. He had a CT performed as an outpatient 2 weeks ago which demonstrated gastric placement. I placed a G-tube today in the emergency department. X-ray was unclear as to whether the tube was in the stomach or the duodenal bulb. CT demonstrated some migration of the tube into the duodenum but this is due to the disc being too loose. Disc was adjusted. Patient will be discharged home and can follow-up with Dr. Bonner as an outpatient. Diagnosis Primary Impression: Gastrostomy tube dysfunction Patient Instructions: General Instructions Additional Instructions: If you develop severe or worsening abdominal pain, fever>100.4, persistent vomiting or inability to eat or drink return to the emergency department immediately. Follow-up with Dr. Bonner as an outpatient. Med/Other Pt SpecificInfo: No Change to Meds Disposition: 01 DISCHARGE HOME Condition: Stable Kat Pike MD Dec 02, 2017 12:59
[2017-12-02] MEDS ORDERED: AMLO5TAB2 PO (13:01)
[2017-12-02] MEDS ORDERED: DIATRIZOATE MEGLUM/DIATRIZOATE SOD 120 ML BTL (for RAD DIAG) G-TUBE ONE (14:25)
--- NOTE | 2017-12-02 14:43 | RADRPT ---
EXAM DATE: 12/02/2017 2:34 PM EDT AGE/SEX: 72 years / Male INDICATIONS: Confirm G-tube placement with gastrografin. CLINICAL DATA: This is the patient's initial encounter. Patient reports that signs and symptoms have been present for 1 day and indicates a pain score of Nonresponsive. MEDICAL/SURGICAL HISTORY: Emphysema. Chronic obstructive pulmonary disease. . prior g tube. COMPARISON: [facility] – [place], ABDOMEN SINGLE VIEW, 04/27/2017. . FINDINGS: AP view the abdomen following injection of contrast through PEG tube demonstrates position of the PEG tube within the antrum of the stomach or duodenal bulb. There is preferential flow of contrast into the duodenum with a small amount reflux into the stomach. CONCLUSION: Gastrostomy tube identified with preferential flow of contrast into the duodenum. Distal antral versu s duodenal bulb location of the balloon tip is suspected. Electronically signed by: Kit Power MD 12/02/2017 2:42 PM EDT
[2017-12-02 15:30] VITALS: BP 118/75; PULSE 80; RESP 17; O2SAT 96
--- NOTE | 2017-12-02 17:19 | RADRPT ---
EXAM DATE: 12/02/2017 5:09 PM EDT AGE/SEX: 72 years / Male INDICATIONS: G tube placement. CLINICAL DATA: This is the patient's initial encounter. Patient reports that signs and symptoms have been present for 1 day and indicates a pain score of 0/10. MEDICAL/SURGICAL HISTORY: Chronic obstructive pulmonary disease. Cardiovascular disease. Zarina roesophageal reflux disease. Hypertension, ulcer, emphysema, prostate cancer. Appendectomy. Cholec ystectomy. Prostatectomy. RADIATION DOSE: 6.64 CTDI (mGy) COMPARISON: [facility] [place]BD[place] & PELVIS W/O CONTRAST, 04/27/2017. . TECHNIQUE: Multiple contiguous axial images were obtained through the abdomen. Images were obtained using multiple row detector helical technique. Using dose reduction techniques, radiation dose was ke pt as low as reasonably achievable to obtain optimal diagnostic quality images. FINDINGS: A gastrostomy feeding tube is identified. A tube has been inserted into the antrum of the stomach how ever the existing appears to have migrated into the proximal duodenum and may be within the duodenal bulb. Large amount of stool is noted throughout the colon. Liver, spleen, pancreas and kidneys are unremarkable. Aorta is heavily calcified. Chronic lung changes are seen in both lung bases. CONCLUSION: 1. Balloon tip of reinserted gastrostomy tube appears to have gone through the pylorus into the duod enum. 2. Large amount retained stool throughout the colon. 3. Chronic lung changes. 4. No evidence of acute process in the abdomen or pelvis. Electronically signed by: Kit Power MD 12/02/2017 5:18 PM EDT
== END 2017-12-02 17:37 | disposition home or self-care (01) ==
LOC: NEPD 11:59
DX: K94.23 Gastrostomy malfunction (principal); E11.9 Type 2 diabetes mellitus without complications; I10 Essential (primary) hypertension; E78.00 Pure hypercholesterolemia, unspecified; K21.9 Gastro-esophageal reflux disease without esophagitis; J44.9 Chronic obstructive pulmonary disease, unspecified; I25.10 Atherosclerotic heart disease of native coronary artery without angina pectoris; F41.9 Anxiety disorder, unspecified; F17.200 Nicotine dependence, unspecified, uncomplicated; Z87.39 Personal history of other diseases of the musculoskeletal system and connective tissue; Z87.19 Personal history of other diseases of the digestive system; Z87.448 Personal history of other diseases of urinary system; Z85.46 Personal history of malignant neoplasm of prostate
CPT/HCPCS: 43760; 74018; 74176; 99284; Q9963

== ENCOUNTER 2018-06-07 00:26 | Inpatient (IN) ==
--- NOTE | 2018-06-07 00:38 | ED ---
HPI General Chief complaint: Respiratory Symptoms Stated complaint: SOB Time Seen by Provider: 06/07/18 00:32 History of Present Illness HPI narrative: Patient is a 73-year-old male presents emergency department in respiratory distress. He is currently on CPAP. According to EMS the patient's initial saturation was 50% in the field, he was given duo nebs and then his sat had increased to 80 by the time EMS arrived. EMS started him on CPAP and his best saturation prior to arrival and CPAP was 91%. He apparently has a history of COPD, prostate cancer. Additional history is limited by the patient's respiratory status on BiPAP and the lack of any collateral historian at the bedside. EMS also reports that the patient had been having a gradual decline of health, weight loss as well. No fevers no cough congestion. Apparently he has been sick for the past 2-3 weeks and just got worse tonight. Related Data Home Medications Medication Instructions Recorded Confirmed albuterol sulfate 2.5 mg INHALATION Q4H PRN 06/07/18 06/07/18 allopurinol 300 mg PO DAILY 06/07/18 06/07/18 amlodipine 10 mg PO DAILY 06/07/18 06/07/18 baclofen 10 mg PO TID 06/07/18 06/07/18 cholecalciferol (vitamin D3) 4,000 unit PO DAILY 06/07/18 06/07/18 [Vitamin D3] hydrocodone-acetaminophen 1 tab PO Q6H PRN 06/07/18 06/07/18 ipratropium-albuterol [Combivent 1 puff INHALATION QID 06/07/18 06/07/18 Respimat] tamsulosin 0.4 mg PO DAILY 06/07/18 06/07/18 Allergies Allergy/AdvReac Type Severity Reaction Status Date / Time No Known Allergies Allergy Unknown nkda Uncoded 06/07/18 00:30 *MDRO Multi-Drug Resistant AdvReac Unknown nkda Uncoded 06/07/18 00:30 Organism Review of Systems ROS Unobtainable ROS Unobtainable: other (Patient's history is limited by respiratory status.) [facility] Social History Social History Substance History: No History of Abuse Second Hand Smoke Exposure: No Smoking Status: Former smoker How Often Do You Have a Drink Containing Alcohol: Never Recent Travel in [facility] within the Last 8 Weeks: No Recent Out of Country Travel within the Last 8 Weeks: No Immunization History Tetanus Immunization: <5 Years Exam Narrative Exam Narrative: GENERAL: Well-developed cachectic 73-year-old male in respiratory distress. SKIN: Focused skin assessment warm/dry. HEAD: Atraumatic. Normocephalic. EYES: Pupils equal and round. No scleral icterus. No injection or drainage. ENT: No nasal bleeding or discharge. Mucous membranes pink and moist. NECK: Trachea midline. No JVD. CARDIOVASCULAR: Regular rhythm with tachycardia. 2+ bilateral pulses in all 4 extremities. No murmur appreciated. RESPIRATORY: Supraclavicular retractions, tachypneic into the 30s, decreased breath sounds bilaterally but no obvious wheezes rales or rhonchi. GASTROINTESTINAL: Abdomen soft, non-tender, nondistended. Hepatic and splenic margins not palpable. MUSCULOSKELETAL: No obvious deformities. No clubbing. No cyanosis. No edema. NEUROLOGICAL: Awake and alert. No obvious cranial nerve deficits. Motor grossly within normal limits. Normal speech. PSYCHIATRIC: Appropriate mood and affect; insight and judgment normal. Course Initial Documented Vital Signs Pulse Rate 145 H 06/07/18 00:30 Respiratory Rate 38 H 06/07/18 00:30 Blood Pressure 119/66 06/07/18 00:30 Pulse Oximetry 100 06/07/18 00:30 Last Documented Vital Signs Temperature 97.6 F 06/07/18 02:15 Pulse Rate 113 H 06/07/18 02:14 Respiratory Rate 28 H 06/07/18 02:14 Blood Pressure 119/64 06/07/18 01:05 Pulse Oximetry 95 06/07/18 02:14 Critical Care Time Critical Care Time: Yes Total Critical Care Time: 35 Attestation: Aggregate critical care time was 35 minutes. Time to perform other separately billable procedures was not included in the critical care time. My time did not include minutes spent treating any other patients simultaneously or on activities that did not directly contribute to the patient's treatment. The services I provided to this patient were to treat and/or prevent clinically significant deterioration that could result in: , disability, organ failure I provided critical care services requiring my management, as noted below: Chart data review, documentation time, medication orders and management, vital sign assessments/reviewing monitor data, ordering and reviewing lab tests, ordering and interpreting/reviewing x-rays and diagnostic studies, care of the patient and discussion of the patient with the admitting physicians. Medical Decision Making MDM Narrative Medical decision making narrative: Patient room to the emergency department, switched from CPAP to BiPAP in the emergency department, difficult to obtain a seal on the BiPAP but ultimately patient did improve. His blood gas on 100% FiO2 showed a pH of 7.33, PCO2 of 48 and a PO2 of 142 indicating ARDS. Appears to be a purely hypoxic respiratory failure. Chest x-ray does show bilateral pneumonia worse on the left. He was started on broad-spectrum antibiotics including vancomycin and Zosyn as this patient appears to be severely septic. White blood cell count significantly elevated to 35, perhaps the patient is on some ambulatory steroids as well but I think this is probably infectious in origin. Lactic acid is actually within normal limits, 500 cc fluid bolus was ordered here. He was also given Solu-Medrol. Patient continued to improve slowly but still is critically ill and it was discussed with Dr. Adriana Osborne for ICU admission. CTA PE is still pending at time of admission. It was reviewed by both me and Dr. Manan blancas, negative for PE but did show significant abnormalities in the parenchymal of the long consistent with bilateral advanced pneumonia. Medical Screen Exam Complete: Yes Emergency Medical Condition: Yes Lab Data Result diagrams: 06/07/18 00:53 06/07/18 01:39 Lab Results 06/07/18 06/07/18 06/07/18 Range/Units 00:53 00:53 01:15 WBC 35.4 H (4.0-11.0) th/mm3 RBC 3.58 L (4.50-5.90) mil/mm3 Hgb 11.4 L (13.0-17.0) gm/dL Hct 34.5 L (39.0-51.0) % MCV 96.5 (80.0-100.0) fL MCH 31.9 (27.0-34.0) pg MCHC 33.0 (32.0-36.0) % RDW 15.9 (11.6-17.2) % Plt Count 439 (150-450) th/mm3 MPV 8.1 (7.0-11.0) fL Prelim Diff (Auto) Slide review pending Neut % (Auto) 88.9 H (16.0-70.0) % Lymph % (Auto) 3.2 L (9.0-44.0) % [place] % (Auto) 7.7 (0.0-8.0) % Eos % (Auto) 0.1 (0.0-4.0) % Baso % (Auto) 0.1 (0.0-2.0) % Neut # (Auto) 31.4 H (1.8-7.7) th/mm3 Lymph # (Auto) 1.1 (1.0-4.8) th/mm3 [place] # (Auto) 2.7 H (0.0-0.9) th/mm3 Eos # (Auto) 0.0 (0.0-0.4) th/mm3 Baso # (Auto) 0.0 (0.0-0.2) th/mm3 WBC Differential Manual diff final Seg Neuts % (Manual) 86 H (16-70) % Band Neuts % (Manual) 1 (0-6) % Lymphocytes % (Manual) 4 L (9-44) % Monocytes % (Manual) 8 (0-8) % Promyelocytes % (Man) 1 H (0-0) % Abs Neuts (Manual) 31.2 H (1.8-7.7) th/mm3 Differential Comment . Toxic Granulation 1+ H (None) Toxic Vacuolation Present H (None) Platelet Estimate High H (Normal) Platelet Morphology Normal (Normal) [place] Cells 1+ H (None) PT 12.0 H (9.8-11.6) sec INR 1.2 Ratio APTT 38.3 H (23.4-31.7) sec Puncture Site Right radial Patient Temperature 98.6 O2 Saturation 97 (90-100) % ABG pH 7.34 L (7.380-7.420) ABG pCO2 49 H (38-42) mmHg ABG pO2 142 H (61-120) mmHg ABG HCO3 26 (22-26) mmol/L ABG O2 Content 14.0 (12.0-20.0) Vol % ABG Base Excess 0.4 (-2-2) mmol/L ABG Methemoglobin 1.1 (0-2) % Javier Test Present Hemoglobin 10.1 L (12.0-16.0) G/DL Carboxyhemoglobin 1.2 (0-4) % O2 Delivery Device Bipap Vent Setting [id number] Inspired O2 100 % Critical Value No Sodium (136-145) meq/L Potassium (3.5-5.1) meq/L Chloride (98-107) meq/L Carbon Dioxide (21.0-32.0) meq/L Anion Gap (5-15) meq/L BUN (7-18) mg/dL Creatinine (0.60-1.30) mg/dL Estimated GFR (>89) mL/min Random Glucose (74-106) mg/dL Lactic Acid (0.4-2.0) mmol/L Calcium (8.5-10.1) mg/dL Total Bilirubin (0.2-1.0) mg/dL AST (15-37) U/L ALT (12-78) U/L Alkaline Phosphatase (45-117) U/L Total Creatine Kinase (39-308) U/L Troponin I (0.02-0.05) ng/mL B-Natriuretic Peptide (0-100) pg/mL Total Protein (6.4-8.2) g/dL Albumin (3.4-5.0) g/dL Urine Color (Yellw/Straw) Urine Clarity (Clear) Urine pH (5.0-8.5) Ur Specific [place] (1.002-1.035) Urine Protein (Neg-Trace) mg/dL Urine Glucose (UA) (Negative) mg/dL Urine Ketones (Negative) mg/dL Urine Occult Blood (Negative) Urine Nitrate (Negative) Urine Bilirubin (Negative) Urine Urobilinogen (Less than 2) mg/dL Ur Leukocyte Esterase (Negative) Urine RBC (0-3) /hpf Urine WBC (0-5) /hpf Amorphous Sediment (None) /hpf Urine Bacteria (None) /hpf Hyaline Casts (0-3) /lpf Urine Mucus (Occasional) /lpf Urine Yeast (None) /hpf Micro UA Comment Ur Microscopic Review Urine Culture Comments 06/07/18 06/07/18 06/07/18 Range/Units 01:39 01:39 01:39 WBC (4.0-11.0) th/mm3 RBC (4.50-5.90) mil/mm3 Hgb (13.0-17.0) gm/dL Hct (39.0-51.0) % MCV (80.0-100.0) fL MCH (27.0-34.0) pg MCHC (32.0-36.0) % RDW (11.6-17.2) % Plt Count (150-450) th/mm3 MPV (7.0-11.0) fL Prelim Diff (Auto) Neut % (Auto) (16.0-70.0) % Lymph % (Auto) (9.0-44.0) % [place] % (Auto) (0.0-8.0) % Eos % (Auto) (0.0-4.0) % Baso % (Auto) (0.0-2.0) % Neut # (Auto) (1.8-7.7) th/mm3 Lymph # (Auto) (1.0-4.8) th/mm3 [place] # (Auto) (0.0-0.9) th/mm3 Eos # (Auto) (0.0-0.4) th/mm3 Baso # (Auto) (0.0-0.2) th/mm3 WBC Differential Seg Neuts % (Manual) (16-70) % Band Neuts % (Manual) (0-6) % Lymphocytes % (Manual) (9-44) % Monocytes % (Manual) (0-8) % Promyelocytes % (Man) (0-0) % Abs Neuts (Manual) (1.8-7.7) th/mm3 Differential Comment Toxic Granulation (None) Toxic Vacuolation (None) Platelet Estimate (Normal) Platelet Morphology (Normal) [place] Cells (None) PT (9.8-11.6) sec INR Ratio APTT (23.4-31.7) sec Puncture Site Patient Temperature O2 Saturation (90-100) % ABG pH (7.380-7.420) ABG pCO2 (38-42) mmHg ABG pO2 (61-120) mmHg ABG HCO3 (22-26) mmol/L ABG O2 Content (12.0-20.0) Vol % ABG Base Excess (-2-2) mmol/L ABG Methemoglobin (0-2) % Javier Test Hemoglobin (12.0-16.0) G/DL Carboxyhemoglobin (0-4) % O2 Delivery Device Vent Setting Inspired O2 % Critical Value Sodium 144 (136-145) meq/L Potassium 3.7 (3.5-5.1) meq/L Chloride 105 (98-107) meq/L Carbon Dioxide 27.6 (21.0-32.0) meq/L Anion Gap 11 (5-15) meq/L BUN 19 H (7-18) mg/dL Creatinine 0.89 (0.60-1.30) mg/dL Estimated GFR 84 L (>89) mL/min Random Glucose 134 H (74-106) mg/dL Lactic Acid 1.8 (0.4-2.0) mmol/L Calcium 8.1 L (8.5-10.1) mg/dL Total Bilirubin 0.4 (0.2-1.0) mg/dL AST 12 L (15-37) U/L ALT 7 L (12-78) U/L Alkaline Phosphatase 117 (45-117) U/L Total Creatine Kinase 18 L (39-308) U/L Troponin I 0.03 (0.02-0.05) ng/mL B-Natriuretic Peptide 255 H (0-100) pg/mL Total Protein 7.5 (6.4-8.2) g/dL Albumin 2.0 L (3.4-5.0) g/dL Urine Color (Yellw/Straw) Urine Clarity (Clear) Urine pH (5.0-8.5) Ur Specific [place] (1.002-1.035) Urine Protein (Neg-Trace) mg/dL Urine Glucose (UA) (Negative) mg/dL Urine Ketones (Negative) mg/dL Urine Occult Blood (Negative) Urine Nitrate (Negative) Urine Bilirubin (Negative) Urine Urobilinogen (Less than 2) mg/dL Ur Leukocyte Esterase (Negative) Urine RBC (0-3) /hpf Urine WBC (0-5) /hpf Amorphous Sediment (None) /hpf Urine Bacteria (None) /hpf Hyaline Casts (0-3) /lpf Urine Mucus (Occasional) /lpf Urine Yeast (None) /hpf Micro UA Comment Ur Microscopic Review Urine Culture Comments 06/07/18 Range/Units 02:00 WBC (4.0-11.0) th/mm3 RBC (4.50-5.90) mil/mm3 Hgb (13.0-17.0) gm/dL Hct (39.0-51.0) % MCV (80.0-100.0) fL MCH (27.0-34.0) pg MCHC (32.0-36.0) % RDW (11.6-17.2) % Plt Count (150-450) th/mm3 MPV (7.0-11.0) fL Prelim Diff (Auto) Neut % (Auto) (16.0-70.0) % Lymph % (Auto) (9.0-44.0) % [place] % (Auto) (0.0-8.0) % Eos % (Auto) (0.0-4.0) % Baso % (Auto) (0.0-2.0) % Neut # (Auto) (1.8-7.7) th/mm3 Lymph # (Auto) (1.0-4.8) th/mm3 [place] # (Auto) (0.0-0.9) th/mm3 Eos # (Auto) (0.0-0.4) th/mm3 Baso # (Auto) (0.0-0.2) th/mm3 WBC Differential Seg Neuts % (Manual) (16-70) % Band Neuts % (Manual) (0-6) % Lymphocytes % (Manual) (9-44) % Monocytes % (Manual) (0-8) % Promyelocytes % (Man) (0-0) % Abs Neuts (Manual) (1.8-7.7) th/mm3 Differential Comment Toxic Granulation (None) Toxic Vacuolation (None) Platelet Estimate (Normal) Platelet Morphology (Normal) [place] Cells (None) PT (9.8-11.6) sec INR Ratio APTT (23.4-31.7) sec Puncture Site Patient Temperature O2 Saturation (90-100) % ABG pH (7.380-7.420) ABG pCO2 (38-42) mmHg ABG pO2 (61-120) mmHg ABG HCO3 (22-26) mmol/L ABG O2 Content (12.0-20.0) Vol % ABG Base Excess (-2-2) mmol/L ABG Methemoglobin (0-2) % Javier Test Hemoglobin (12.0-16.0) G/DL Carboxyhemoglobin (0-4) % O2 Delivery Device Vent Setting Inspired O2 % Critical Value Sodium (136-145) meq/L Potassium (3.5-5.1) meq/L Chloride (98-107) meq/L Carbon Dioxide (21.0-32.0) meq/L Anion Gap (5-15) meq/L BUN (7-18) mg/dL Creatinine (0.60-1.30) mg/dL Estimated GFR (>89) mL/min Random Glucose (74-106) mg/dL Lactic Acid (0.4-2.0) mmol/L Calcium (8.5-10.1) mg/dL Total Bilirubin (0.2-1.0) mg/dL AST (15-37) U/L ALT (12-78) U/L Alkaline Phosphatase (45-117) U/L Total Creatine Kinase (39-308) U/L Troponin I (0.02-0.05) ng/mL B-Natriuretic Peptide (0-100) pg/mL Total Protein (6.4-8.2) g/dL Albumin (3.4-5.0) g/dL Urine Color Dark-yellow H (Yellw/Straw) Urine Clarity Cloudy H (Clear) Urine pH 5.0 (5.0-8.5) Ur Specific [place] 1.017 (1.002-1.035) Urine Protein 30 H (Neg-Trace) mg/dL Urine Glucose (UA) Negative (Negative) mg/dL Urine Ketones Trace H (Negative) mg/dL Urine Occult Blood Small H (Negative) Urine Nitrate Negative (Negative) Urine Bilirubin Negative (Negative) Urine Urobilinogen Less than 2 (Less than 2) mg/dL Ur Leukocyte Esterase Small H (Negative) Urine RBC 1 (0-3) /hpf Urine WBC 43 H (0-5) /hpf Amorphous Sediment Moderate H (None) /hpf Urine Bacteria Many H (None) /hpf Hyaline Casts 8 (0-3) /lpf Urine Mucus Few H (Occasional) /lpf Urine Yeast Few H (None) /hpf Micro UA Comment Culture indicated Ur Microscopic Review Not Reportable Urine Culture Comments Culture indicated Imaging Data Radiologist's impression: Chest X-Ray 06/07/18 00:34 CONCLUSION: Dense consolidation in the left lower lobe and partially consolidative infiltrates in the central lungs bilaterally and in the left costophrenic angle. Chest CTA 06/07/18 01:02 CONCLUSION: 1. Study is negative for pulmonary embolism. 2. Abnormal appearance to the lungs with dense consolidation left lower lobe and masslike areas of consolidation left suprahilar left lateral midlung. There are also patchy opacities throughout the right lower lobe. Discharge Plan Discharge Disposition Patient Disposition: ED Admit(ED Internal Use Only) Discharge Condition Condition: Stable Discharge Order Discharge Orders: ED Use Only Admit Order (Routine); Ordered 06/07/18 Ordered By: Lui Segura Discharge Details Diagnosis: Acute respiratory failure with hypoxia, CAP (community acquired pneumonia), Sepsis Physicians Team ED Provider: Lui Segura Primary Care Provider: UNKNOWN, Attending Provider: Adriana Osborne Other Providers: Faizan Gonzalez Status ED Status: Admitted Patient
[2018-06-07] MEDS ORDERED: MethylPREDNISolone Sod Suc Inj 250 MG in Sodium Chlor 0.9% Inj 100 ML IV.SIG ONE (01:02)
[2018-06-07 01:06] LABS: Baso % (Auto) 0.1 % (0.0-2.0); Eos % (Auto) 0.1 % (0.0-4.0); Hematocrit 34.5 % (39.0-51.0); Hemoglobin 11.4 gm/dL (13.0-17.0); Lymph # (Auto) 1.1 th/mm3 (1.0-4.8); Lymph % (Auto) 3.2 % (9.0-44.0); Mean Corpuscular Hemoglobin 31.9 pg (27.0-34.0); Mean Corpuscular Volume 96.5 fL (80.0-100.0); Mean Platelet Volume 8.1 fL (7.0-11.0); Mono # (Auto) 2.7 th/mm3 (0.0-0.9); Mono % (Auto) 7.7 % (0.0-8.0); Neut # (Auto) 31.4 th/mm3 (1.8-7.7); Neut % (Auto) 88.9 % (16.0-70.0); Platelet Count 439 th/mm3 (150-450); Red Blood Count 3.58 mil/mm3 (4.50-5.90); Red Cell Distribution Width 15.9 % (11.6-17.2); White Blood Count 35.4 th/mm3 (4.0-11.0)
[2018-06-07] MEDS ORDERED: Vancomycin Inj 1,000 MG in Sodium Chlor 0.9% Inj 250 ML IV.SIG ONE (01:17)
[2018-06-07] MEDS ORDERED: Piperacil/Tazo 4.5 GM Premix 4.5 GM/100 ML BAG IV.SIG ONE (01:18)
[2018-06-07 01:22] LABS: Activated Partial Thrombo Time 38.3 sec (23.4-31.7); INR 1.2 Ratio
--- NOTE | 2018-06-07 01:28 | XR ---
EXAM DATE: 06/07/2018 1:18 AM EST AGE/SEX: 73 years / Male INDICATIONS: Chest pain, shortness of breath. CLINICAL DATA: This is the patient's initial encounter. Patient reports that signs and symptoms have been present for 1 day and indicates a pain score of 8/10. MEDICAL/SURGICAL HISTORY: Hypertension. Arthritis. Chronic obstructive pulmonary disease. Pr ostate cancer. Appendectomy. Gastrostomy tube. COMPARISON: [facility], CHEST SINGLE AP, 05/06/2017. . FINDINGS: Abnormal. Interval development of patchy areas of consolidative infiltrate in the left hilar, left galo prahilar, and right perihilar region. There is also dense consolidation in the retrocardiac left lowe r lobe causing loss of delineation of the mid and medial left hemidiaphragm. There is some blunting o f the left costophrenic angle. Patchy areas of nonconsolidative infiltrate in the lower lateral right lung is also present. The heart is normal in size. CONCLUSION: Dense consolidation in the left lower lobe and partially consolidative infiltrates in the central mala gs bilaterally and in the left costophrenic angle. Electronically signed by: Polo Saunders MD Board Certified Radiologist 06/07/2018 1:27 AM EST
[2018-06-07 01:32] LABS: Lymphocytes 4 % (9-44); Monocytes 8 % (0-8); Promyelocyte 1 % (0-0)
[2018-06-07 01:33] LABS: Platelet Morphology Normal (Normal)
[2018-06-07 01:34] LABS: Burr Cells 1+; Toxic Vacuolation Present
[2018-06-07 01:36] LABS: Toxic Granulation 1+
[2018-06-07 01:37] LABS: ABG Base Excess 0.4 mmol/L (-2-2); ABG PCO2 49 mmHg (38-42); ABG PO2 142 mmHg (61-120)
[2018-06-07] MEDS ORDERED: Bisacodyl 10 MG Supp RECTAL PRN (01:37)
[2018-06-07] MEDS ORDERED: Magnesium Sulfate Inj 2 GM in Sodium Chlor 0.9% Inj 96 ML IV.SIG ONE (01:45)
--- NOTE | 2018-06-07 01:49 | P.HPCC ---
History of Present Illness Service: Critical care Primary Care Physician: UNKNOWN Chief Complaint: Shortness of breath PMFSH - History History Provided By: Patient - Medical History Medical History: Medical History (Last Updated 06/07/18 @ 00:33 by Kori Mclaughlin) Arthritis COPD (chronic obstructive pulmonary disease) Cataracts, both eyes Hammond catheter in place prior to arrival Gastrostomy tube in place Prostate CA - Tobacco History Second Hand Smoke Exposure: No Tobacco Use In Past 30 Days: No Smoking Status: Former smoker - Alcohol History How Often Do You Have a Drink Containing Alcohol: Never - Substance Use History Substance History: No History of Abuse - Travel History Recent Travel in the [place] Within the Last 8 Weeks: No Recent Travel Out of the Country Within the Last 8 Weeks: No - Immunization History Tetanus Immunization: <5 Years Medications and Allergies Active Medications: Active Medications Acetaminophen (Tylenol) 650 mg G-TUBE Q6H PRN PRN Reason: PAIN 1-10 AND/OR FEVER >101F Al Hydroxide/Mg Hydroxide (Milk Of Magnmariangel Liq) 30 ml G-TUBE Q12H PRN PRN Reason: Mild Constipation Albuterol (Duoneb Neb (Prn)) 1 ampul NEB Q2HR NEB PRN PRN Reason: WHEEZING Albuterol (Duoneb Neb (Tee)) 1 ampul NEB Q4HR NEB TEE Bisacodyl (Dulcolax Supp) 10 mg RECTAL DAILY PRN PRN Reason: SEVERE CONSITIPATION Chlorhexidine Gluconate (Chlorhexidine 2% Cloth) 3 pack TOPICAL DAILY@0400 TEE Stop: 06/12/18 03:59 Chlorhexidine Gluconate (Chlorhexidine 2% Cloth) 3 pack TOPICAL DAILY@0400 PRN PRN Reason: Extra cloth needed Stop: 06/12/18 03:59 Famotidine (Pepcid) 20 mg G-TUBE BID TEE Famotidine (Pepcid Pf Inj) 20 mg IV.PUSH Q12HR TEE Heparin Sodium (Porcine) (Heparin Inj) 5,000 units SQ Q8H TEE Sodium Chloride (Ns Inj) 500 mls @ 1,000 mls/hr IV.SIG BOLUS TEE Stop: 06/07/18 02:29 Piperacillin/Tazobactam/Dextrose (Zosyn 4.5 Gm Premix) 4.5 gm in 100 mls @ 200 mls/hr IV.SIG ONCE ONE Stop: 06/07/18 01:47 Vancomycin HCl 1,000 mg/ (Sodium Chloride) 250 mls @ 250 mls/hr IV.SIG ONCE ONE Stop: 06/07/18 02:16 Sodium Chloride (Ns Inj) 1,000 mls @ 84 mls/hr IV.CONT .[id number] [facility] Lactulose (Lactulose Liq) 30 ml G-TUBE DAILY PRN PRN Reason: SEVERE CONSITIPATION Ondansetron HCl (Zofran Inj) 4 mg IV.PUSH Q6H PRN PRN Reason: NAUSEA OR VOMITING Senna/Docusate Sodium (Maricel-Colace) 1 tab G-TUBE BID [facility] Sennosides (Senokot) 17.2 mg G-TUBE Q12H PRN PRN Reason: Moderate Constipation Sodium Chloride (Ns Flush) 2 ml IV.FLUSH UNSCH PRN PRN Reason: FLUSH AFTER USING IV ACCESS Sodium Chloride (Ns Flush) 2 ml IV.FLUSH PRN PRN PRN Reason: FLUSH AFTER USING IV ACCESS Sodium Chloride (Ns Flush) 2 ml IV.FLUSH BID [facility] Allergies Allergy/AdvReac Type Severity Reaction Status Date / Time No Known Allergies Allergy Unknown nkda Uncoded 06/07/18 00:30 *MDRO Multi-Drug Resistant AdvReac Unknown nkda Uncoded 06/07/18 00:30 Organism Results - Labs CBC & Chem 7: 06/07/18 00:53 06/07/18 00:53 Labs: Short CBC 06/07/18 Range/Units 00:53 WBC 35.4 H (4.0-11.0) th/mm3 Hgb 11.4 L (13.0-17.0) gm/dL Hct 34.5 L (39.0-51.0) % Plt Count 439 (150-450) th/mm3 - Imaging Impressions Chest X-Ray 06/07/18 00:34 CONCLUSION: Dense consolidation in the left lower lobe and partially consolidative infiltrates in the central lungs bilaterally and in the left costophrenic angle. Exam Vital signs: Vital Signs 06/07/18 00:30 06/07/18 00:31 06/07/18 01:05 Pulse Rate 145 H 130 H Respiratory Rate 38 H 26 H Blood Pressure 119/66 119/64 Pulse Oximetry 100 100 100 06/07/18 01:31 Pulse Rate 126 H Respiratory Rate 27 H Blood Pressure Pulse Oximetry 98 Intake & Output 06/06/18 06/06/18 06/07/18 06:59 18:59 06:59 Weight 38.555 kg Caprini VTE Risk Assessment Juan Carlosrini Risk Assessment Model: Point Value = 1 Point Value = 2 Point Value = 3 Point Value = 5 Age 41-60 Minor surgery BMI > 25 kg/m2 Swollen legs Varicose veins or History of unexplained or recurrent spontaneous Oral contraceptives or hormone replacement Sepsis (< 1 month) Serious lung disease, including pneumonia (< 1 month) Abnormal pulmonary function Acute myocardial infarction Congestive heart failure (< 1 month) History of inflammatory bowel disease Medical patient at bed rest Age 61-74 Arthroscopic surgery Major open surgery (> 45 min) Laparoscopic surgery (> 45 min) Malignancy Confined to bed (> 72 hours) Immobilizing plaster cast Central venous access Age >= 75 History of VTE Family history of VTE Factor V Leiden Prothrombin [id number] Lupus anticoagulant Anticardiolipin antibodies Elevated serum homocysteine Heparin-induced thrombocytopenia Other congenital or acquired thrombophilia Stroke (< 1 month) Elective arthroplasty Hip, pelvis, or leg fracture Acute spinal cord injury (< 1 month) Prophylaxis Regimen: Total Risk Factor Score Risk Level Prophylaxis Regimen 0-1 Low Early ambulation 2 Moderate Order ONE of the following: *Sequential Compression Device (SCD) *Heparin 5000 units SQ BID 3-4 Higher Order ONE of the following medications: *Heparin 5000 units SQ TID *Enoxaparin/Lovenox 40 mg SQ daily (WT < 150 kg, CrCl > 30 mL/min) *Enoxaparin/Lovenox 30 mg SQ daily (WT < 150 kg, CrCl > 10-29 mL/min) *Enoxaparin/Lovenox 30 mg SQ BID (WT < 150 kg, CrCl > 30 mL/min) AND/OR *Sequential Compression Device (SCD) 5 or more Highest Order ONE of the following medications: *Heparin 5000 units SQ TID (Preferred with Epidurals) *Enoxaparin/Lovenox 40 mg SQ daily (WT < 150 kg, CrCl > 30 mL/min) *Enoxaparin/Lovenox 30 mg SQ daily (WT < 150 kg, CrCl > 10-29 mL/min) *Enoxaparin/Lovenox 30 mg SQ BID (WT < 150 kg, CrCl > 30 mL/min) AND *Sequential Compression Device (SCD)
[2018-06-07] MEDS ORDERED: Sodium Chlor 0.9% Inj 500 ML IV.SIG SCH (02:00)
--- NOTE | 2018-06-07 02:06 | P.HPCC ---
History of Present Illness Service: Critical care Primary Care Physician: UNKNOWN Chief Complaint: Shortness of breath History of Present Illness: 73yM brought in by EMS for SOB/ respiratory distress. The patient's daughter states that the patient has baseline SOB and cough but over the past day has had worsening dyspnea despite using his nebulizer multiple times at home. He called EMS and reportedly had a pulse ox in the 50s on their arrival, improved to 80s with a duoneb, and was started on CPAP prior to arrival. He is currently awake and alert but can only contribute limited information to history due to dyspnea and non-invasive ventilation; therefore, the history was primarily obtained from his daughter at the bedside. 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 Also has a history of prostate cancer, recent unintentional weight loss, and leukocytosis of uncertain etiology. - Diagnosis (1) CAP (community acquired pneumonia) (2) Acute respiratory failure with hypoxia (3) Sepsis Inpatient Certification: I certify that the inpatient services were ordered in accordance with Medicare regulations governing the order. This includes certification that hospital inpatient services are reasonable and necessary and in the case of services not specified as inpatient-only under 42 CFR 419.22(n), that they are appropriately provided as inpatient services in accordance to with the 2-midnight benchmark under 43 CFR 412.3(e) Estimated Total Length of Stay (Days): 7 Plans for Post Hospital Care: Not yet determined Review of Systems other (unobtainable due to respiratory distress) PMFSH - History History Provided By: Patient - Medical History Medical History: Medical History (Last Reviewed 06/07/18 @ 02:02 by Adriana Osborne DO) Arthritis COPD (chronic obstructive pulmonary disease) Cataracts, both eyes Hammond catheter in place prior to arrival Gastrostomy tube in place Prostate CA - Social History I have reviewed the patient's Social History: Yes - Tobacco History Second Hand Smoke Exposure: No Tobacco Use In Past 30 Days: No Smoking Status: Former smoker - Alcohol History How Often Do You Have a Drink Containing Alcohol: Never - Substance Use History Substance History: No History of Abuse - Travel History Recent Travel in the [place] Within the Last 8 Weeks: No Recent Travel Out of the Country Within the Last 8 Weeks: No - Immunization History Tetanus Immunization: <5 Years Medications and Allergies Active Medications: Active Medications Acetaminophen (Tylenol Liq) 650 mg G-TUBE Q6H PRN PRN Reason: PAIN 1-10 AND/OR FEVER >101F Al Hydroxide/Mg Hydroxide (Milk Of Magnesia Liq) 30 ml G-TUBE Q12H PRN PRN Reason: Mild Constipation Albuterol (Duoneb Neb (Prn)) 1 ampul NEB Q2HR NEB PRN PRN Reason: WHEEZING Albuterol (Duoneb Neb (Danielle)) 1 ampul NEB Q4HR NEB DANIELLE Amlodipine Besylate (Norvasc) 10 mg G-TUBE DAILY DANIELLE Baclofen (Lioresal) 10 mg G-TUBE TID DANIELLE Bisacodyl (Dulcolax Supp) 10 mg RECTAL DAILY PRN PRN Reason: SEVERE CONSITIPATION Chlorhexidine Gluconate (Chlorhexidine 2% Cloth) 3 pack TOPICAL DAILY@0400 DANIELLE Stop: 06/12/18 03:59 Chlorhexidine Gluconate (Chlorhexidine 2% Cloth) 3 pack TOPICAL DAILY@0400 PRN PRN Reason: Extra cloth needed Stop: 06/12/18 03:59 Famotidine (Pepcid) 20 mg G-TUBE BID [facility] Famotidine (Pepcid Pf Inj) 20 mg IV.PUSH Q12HR [facility] Heparin Sodium (Porcine) (Heparin Inj) 5,000 units SQ Q8H [facility] Sodium Chloride (Ns Inj) 500 mls @ 1,000 mls/hr IV.SIG BOLUS [facility] Stop: 06/07/18 02:29 Vancomycin HCl 1,000 mg/ (Sodium Chloride) 250 mls @ 250 mls/hr IV.SIG ONCE ONE Stop: 06/07/18 02:16 Sodium Chloride (Ns Inj) 1,000 mls @ 84 mls/hr IV.CONT .[id number] [facility] Azithromycin 500 mg/ Sodium (Chloride) 250 mls @ 250 mls/hr IV.SIG Q24H [facility] Magnesium Sulfate 2 gm/ Sodium (Chloride) 100 mls @ 50 mls/hr IV.SIG ONCE ONE Stop: 06/07/18 03:44 Piperacillin/Tazobactam/Dextrose (Zosyn 3.375 Gm Premix) 3.375 gm in 50 mls @ 100 mls/hr IV.SIG Q6H DANIELLE Lactulose (Lactulose Liq) 30 ml G-TUBE DAILY PRN PRN Reason: SEVERE CONSITIPATION Methylprednisolone Sodium Succinate (Solumedrol Inj) 60 mg IV.PUSH Q12HR [facility] Ondansetron HCl (Zofran Inj) 4 mg IV.PUSH Q6H PRN PRN Reason: NAUSEA OR VOMITING Senna/Docusate Sodium (Maricel-Colace) 1 tab G-TUBE BID [facility] Sennosides (Senokot) 17.2 mg G-TUBE Q12H PRN PRN Reason: Moderate Constipation Sodium Chloride (Ns Flush) 2 ml IV.FLUSH PRN PRN PRN Reason: FLUSH AFTER USING IV ACCESS Sodium Chloride (Ns Flush) 2 ml IV.FLUSH BID [facility] Allergies Allergy/AdvReac Type Severity Reaction Status Date / Time No Known Allergies Allergy Unknown nkda Uncoded 06/07/18 00:30 *MDRO Multi-Drug Resistant AdvReac Unknown nkda Uncoded 06/07/18 00:30 Organism Home Medications Medication Instructions Recorded Confirmed Type albuterol sulfate 2.5 mg INHALATION Q4H PRN 06/07/18 06/07/18 History allopurinol 300 mg PO DAILY 06/07/18 06/07/18 History amlodipine 10 mg PO DAILY 06/07/18 06/07/18 History baclofen 10 mg PO TID 06/07/18 06/07/18 History cholecalciferol (vitamin D3) 4,000 unit PO DAILY 06/07/18 06/07/18 History [Vitamin D3] hydrocodone-acetaminophen 1 tab PO Q6H PRN 06/07/18 06/07/18 History ipratropium-albuterol [Combivent 1 puff INHALATION QID 06/07/18 06/07/18 History Respimat] tamsulosin 0.4 mg PO DAILY 06/07/18 06/07/18 History Results - Labs CBC & Chem 7: 06/07/18 00:53 06/07/18 01:39 Labs: Short CBC 06/07/18 Range/Units 00:53 WBC 35.4 H (4.0-11.0) th/mm3 Hgb 11.4 L (13.0-17.0) gm/dL Hct 34.5 L (39.0-51.0) % Plt Count 439 (150-450) th/mm3 - Imaging Impressions Chest X-Ray 06/07/18 00:34 CONCLUSION: Dense consolidation in the left lower lobe and partially consolidative infiltrates in the central lungs bilaterally and in the left costophrenic angle. Exam Vital signs: Vital Signs 06/07/18 00:30 06/07/18 00:31 06/07/18 01:05 Pulse Rate 145 H 130 H Respiratory Rate 38 H 26 H Blood Pressure 119/66 119/64 Pulse Oximetry 100 100 100 06/07/18 01:31 Pulse Rate 126 H Respiratory Rate 27 H Blood Pressure Pulse Oximetry 98 Intake & Output 06/06/18 06/06/18 06/07/18 06:59 18:59 06:59 Intake Total 104 / 104 Balance 104 / 104 Weight 38.555 kg Intake: IV SoluMEDROL Inj 250 MG In NS Inj 100 ML @ 200 mls/hr IV.SIG ONCE ONE Rx#:[id number] Narrative: GEN: Frail appearing elderly male, moderate respiratory distress on bipap HEENT: NCAT, PERRL, bilateral temporal wasting NECK: Trachea midline, no JVD CARDIO: Tachy, regular RESP: Increased work of breathing, able to speak in 3-4 word phrases, expiratory wheeze bilaterally (R>L) ABD/GI: PEG tube present, soft and non-tender : Hammond catheter present EXT/MSK: No peripheral edema SKIN: Cool and dry NEURO: Awake and alert, answers most questions appropriately but ability to speak limited due to respiratory distress, moves all extremities PSYCH: No apparent agitation Caprini VTE Risk Assessment Caprini VTE Risk Assessment: Moderate/High Risk (score >= 2) Caprini Risk Assessment Model: Point Value = 1 Point Value = 2 Point Value = 3 Point Value = 5 Age 41-60 Minor surgery BMI > 25 kg/m2 Swollen legs Varicose veins or History of unexplained or recurrent spontaneous Oral contraceptives or hormone replacement Sepsis (< 1 month) Serious lung disease, including pneumonia (< 1 month) Abnormal pulmonary function Acute myocardial infarction Congestive heart failure (< 1 month) History of inflammatory bowel disease Medical patient at bed rest Age 61-74 Arthroscopic surgery Major open surgery (> 45 min) Laparoscopic surgery (> 45 min) Malignancy Confined to bed (> 72 hours) Immobilizing plaster cast Central venous access Age >= 75 History of VTE Family history of VTE Factor V Leiden Prothrombin [id number] Lupus anticoagulant Anticardiolipin antibodies Elevated serum homocysteine Heparin-induced thrombocytopenia Other congenital or acquired thrombophilia Stroke (< 1 month) Elective arthroplasty Hip, pelvis, or leg fracture Acute spinal cord injury (< 1 month) Prophylaxis Regimen: Total Risk Factor Score Risk Level Prophylaxis Regimen 0-1 Low Early ambulation 2 Moderate Order ONE of the following: *Sequential Compression Device (SCD) *Heparin 5000 units SQ BID 3-4 Higher Order ONE of the following medications: *Heparin 5000 units SQ TID *Enoxaparin/Lovenox 40 mg SQ daily (WT < 150 kg, CrCl > 30 mL/min) *Enoxaparin/Lovenox 30 mg SQ daily (WT < 150 kg, CrCl > 10-29 mL/min) *Enoxaparin/Lovenox 30 mg SQ BID (WT < 150 kg, CrCl > 30 mL/min) AND/OR *Sequential Compression Device (SCD) 5 or more Highest Order ONE of the following medications: *Heparin 5000 units SQ TID (Preferred with Epidurals) *Enoxaparin/Lovenox 40 mg SQ daily (WT < 150 kg, CrCl > 30 mL/min) *Enoxaparin/Lovenox 30 mg SQ daily (WT < 150 kg, CrCl > 10-29 mL/min) *Enoxaparin/Lovenox 30 mg SQ BID (WT < 150 kg, CrCl > 30 mL/min) AND *Sequential Compression Device (SCD) Assessment and Plan - Problem List (1) CAP (community acquired pneumonia) Code(s): J18.9 - Pneumonia, unspecified organism Status: Acute (2) Acute respiratory failure with hypoxia Code(s): J96.01 - Acute respiratory failure with hypoxia Status: Acute (3) Sepsis Code(s): A41.9 - Sepsis, unspecified organism Status: Acute - Assessment and Plan Plan: 73yM presenting with COPD exacerbation, community acquired pneumonia, acute hypoxic respiratory failure on bipap, sepsis NEURO: Chronic back pain * Patient takes percocet at home for pain, will order PRN tylenol and low dose oxycodone PRN * Continue home baclofen * Delirium precautions CARDIO: History of essential hypertension * Continue home amlodipine * Cardiac monitoring * Currently in sinus tach, likely secondary to sepsis PULM: Acute exacerbation of COPD Community acquired pneumonia Acute hypoxic respiratory failure requiring non-invasive ventilation * Current ABG- 7.33/48/142/25.5/0.4, continue bipap for now * Empiric antibiotics for community acquired pneumonia (zosyn, azithro) * Continue steroids, scheduled and PRN nebs * Will give 2 gm IV magnesium now * CTA chest ordered in ED, will f/u results F/E/N: Severe protein calorie malnutrition as evidenced by frailty, temporal wasting, unintentional weight loss, and hypoalbuminemia * NPO for now, consider starting TFs if able to wean from bipap later today * Maintenance fluids * ICU electrolyte protocol * Multivitamin ID: Sepsis secondary to community acquired pneumonia * Antibiotics as noted above * IV fluids * Lactic acid 1.8 * Blood and urine cultures sent and pending * Urine legionella sent and pending PROPHY: * SCDs, SQH * PPI OVERALL: This patient is critically ill with sepsis secondary to community acquired pneumonia, acute hypoxic respiratory failure requiring non-invasive ventilation, and severe COPD exacerbation. He requires ICU level of care. Will also request palliative care consultation given the patient's history of severe COPD now with acute exacerbation-- he will certainly have continued sequelae of this, has already decided to change his code status to DNR, and should consider whether he would also want to be intubated if needed. Currently, he agrees with intubation. Counseling/ Coordination of Care: This patient is critically ill with impairment of one or more vital organ systems with a high probability of imminent or life-threatening deterioration. High-complexity medical decision making was required to support vital organ function and/ or prevent deterioration in the patient's condition. Total critical care time spent is 42 minutes giving full attention to this patient. This includes examining the patient, gathering history from someone other than the patient (i.e. chart review), discussing the patient's care with other providers, managing the patient's non-invasive ventilator settings, ordering and interpreting radiologic studies, ordering and interpreting laboratory values, and documentation. Amount of time is separate from teaching, counseling the patient and/or family, and exclusive of procedures. Code Status: DNR but accepts intubation- I spoke with both the patient and his daughter regarding his wishes Discussed Condition With: Dr. Segura (ED physician), patient's daughter
[2018-06-07] MEDS: Sod Chloride 0.9% Inj 1,000 ML IV.CONT SCH ×2 (02:12→13:29)
[2018-06-07 02:13] LABS: Alanine Aminotransferase 7 U/L (12-78); Anion Gap 11 meq/L (5-15); Aspartate Aminotransferase 12 U/L (15-37); Blood Urea Nitrogen 19 mg/dL (7-18); Calcium 8.1 mg/dL (8.5-10.1); Carbon Dioxide 27.6 meq/L (21.0-32.0); Chloride 105 meq/L (98-107); Glomerular Filtration Rate 84 mL/min (>89); Glucose,Random 134 mg/dL (74-106); Potassium 3.7 meq/L (3.5-5.1); Sodium 144 meq/L (136-145)
[2018-06-07 02:17] LABS: Alkaline Phosphatase 117 U/L (45-117); Total Protein 7.5 g/dL (6.4-8.2); Troponin I 0.03 ng/mL (0.02-0.05)
[2018-06-07] MEDS ORDERED: Potassium Phosphate 500 MG Soluble Tablet PO PRN ×2 (02:20)
[2018-06-07] MEDS ORDERED: Magnesium Sulfate Inj 4 GM in Sodium Chlor 0.9% Inj 92 ML IV.SIG PRN (02:20)
[2018-06-07] MEDS ORDERED: Magnesium Oxide 400 MG Tablet PO PRN (02:20)
[2018-06-07] MEDS ORDERED: Potassium Chlor 20 mEq Premix 20 MEQ/100 ML PIGGYBACK IV.SIG PRN ×2 (02:20)
[2018-06-07] MEDS ORDERED: Potassium Chlor 40 mEq Premix 40 MEQ/100 ML PIGGYBACK IV.SIG PRN ×2 (02:20)
[2018-06-07] MEDS ORDERED: Magnesium Sulfate Inj 2 GM in Sodium Chlor 0.9% Inj 96 ML IV.SIG PRN (02:20)
[2018-06-07] MEDS ORDERED: Potassium Phosphate Inj 30 MMOL in Sodium Chlor 0.9% Inj 250 ML IV.SIG PRN (02:20)
[2018-06-07] MEDS ORDERED: Potassium Chloride 25 MEQ Effervescent Tablet PO PRN (02:20)
[2018-06-07] MEDS ORDERED: Sodium Phosphate Inj 30 MMOL in Sodium Chlor 0.9% Inj 250 ML IV.SIG PRN (02:20)
[2018-06-07 02:22] LABS: Creatine Kinase 18 U/L (39-308)
[2018-06-07 02:43] LABS: Amorphous Sediment,Urine Moderate /hpf; Bacteria,Urine Many /hpf; Bilirubin,Urine Negative (Negative); Clarity,Urine Cloudy (Clear); Color,Urine Dark-Yellow (Yellw/Straw); Glucose,Urine (UA) Negative (Negative); Hyaline Casts,Urine 8 /lpf (0-3); Leukocyte Esterase,Urine Small (Negative); Mucus,Urine Few /lpf (Occasional); Nitrite,Urine Negative (Negative); Specific Gravity,Urine 1.017 (1.002-1.035)
--- NOTE | 2018-06-07 03:12 | CT ---
EXAM DATE: 06/07/2018 2:59 AM EST AGE/SEX: 73 years / Male INDICATIONS: Shortness of breath. CLINICAL DATA: This is the patient's initial encounter. Patient reports that signs and symptoms have been present for 1 day and indicates a pain score of 2/10. MEDICAL/SURGICAL HISTORY: Chronic obstructive pulmonary disease. Carcinoma, prostatic. None. RADIATION DOSE: 6.76 CTDI (mGy) COMPARISON: No prior exams available for comparison. TECHNIQUE: Volumetric scanning was performed using a multi-row detector CT scanner during bolus infu teddy of 75 ml Omnipaque 350 (iohexol) nonionic water-soluble contrast as a single exam dose. The genaro a was post processed with a variety of visualization algorithms including full volume maximum intensi ty projection and sliding thin slab reformation. Using automated exposure control and adjustment of t he mA and/or kV according to patient size, radiation dose was kept as low as reasonably achievable to obtain optimal diagnostic quality images. DICOM format image data is available electronically for r eview and comparison. FINDINGS: Pulmonary Arteries: No filling defects are seen in the pulmonary arteries out to the subsegmental ve ssels. The left and right pulmonary arteries are normal in diameter. Lung: Dense consolidation involving the entire left lower lobe. Masslike areas of infiltrate devoid of air bronchograms are present in the left mid and left upper lung centrally and there are scattered areas of opacity located periphery of the right mid lung and posterior right. In the right lower lob e, there are patchy areas of infiltrate with and without air bronchograms. Effusion: None. Mediastinum: No evidence of mediastinal or hilar adenopathy. Other: The axilla is unremarkable. CONCLUSION: 1. Study is negative for pulmonary embolism. 2. Abnormal appearance to the lungs with dense consolidation left lower lobe and masslike areas of c onsolidation left suprahilar left lateral midlung. There are also patchy opacities throughout the rig ht lower lobe. Electronically signed by: Polo Saunders MD Board Certified Radiologist 06/07/2018 3:11 AM EST
[2018-06-07] MEDS: Heparin - SQ 10,000 UNITS/ML Vial SQ SCH ×3 (03:41→17:31)
[2018-06-07] MEDS: Azithromycin Inj 500 MG in Sodium Chlor 0.9% Inj 250 ML IV.SIG SCH (03:41)
[2018-06-07] MEDS: Chlorhexidine Gluconate 2% 1 Pack (2 Cloths) TOPICAL SCH (03:42)
[2018-06-07] MEDS ORDERED: Chlorhexidine Gluconate 2% 1 Pack (2 Cloths) TOPICAL PRN (04:00)
[2018-06-07 06:08] LABS: ABG Base Excess -1.1 mmol/L (-2-2); ABG PCO2 47 mmHg (38-42); ABG PO2 81 mmHG (61-120)
[2018-06-07] MEDS: Baclofen 10 MG Tablet G-TUBE SCH ×3 (08:54→20:54)
[2018-06-07] MEDS: Senna/Docusate Sodium 8.6/50 MG Tablet G-TUBE SCH ×3 (08:55→20:57)
[2018-06-07] MEDS: Multivit/Folic Acid/Minerals Chewable Tablets CHEW SCH (08:56)
[2018-06-07] MEDS: Famotidine PF Inj 20 MG/2 ML Vial IV.PUSH SCH ×2 (08:56→20:44)
[2018-06-07] MEDS: Famotidine 20 MG Tablet G-TUBE SCH ×2 (08:56→20:45)
[2018-06-07] MEDS: MethylPREDNISolone Sod Succinate Inj 125 MG/2 ML Vial IV.PUSH SCH ×2 (08:58→20:46)
[2018-06-07] MEDS ORDERED: Baclofen 10 MG Tablet G-TUBE SCH (09:00)
[2018-06-07] MEDS: Piperacil/Tazo 3.375 GM Premix 3.375 GM/50 ML PIGGYBACK IV.SIG SCH ×3 (09:00→20:43)
--- NOTE | 2018-06-07 10:49 | P.CONPAL ---
Consult Service: Palliative Care Requesting Physician: Adriana Osborne Reason for Consult: a. To assist with evaluation and management of symptoms including: dyspnea b. To assist medical decision maker(s) with: better understanding of current medical conditions; weighing benefits/burdens of medical treatment options; making medical treatment decisions. Primary Care Provider: UNKNOWN History of Present Illness History of Present Illness: Mr. Thomason is a 73-year-old male with past medical history of oxygen dependent COPD (reportedly noncompliant with oxygen use), arthritis, prostate cancer, bilateral cataracts, gastrostomy tube and Hammond catheter in place. Patient has had prior hospitalizations including 3-4 previous intubations in 1-2 previous prolonged ICU stays. 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 Patient presented to [facility] emergency department on 06/07/18 via EMS for evaluation of shortness of breath/respiratory distress. Notes indicate patient had been short of breath with cough over the past 24 hours, symptoms began to worsen despite nebulizer treatments. Upon EMS arrival the patient's oxygen saturation was in the 50s, improved to the 80s with DuoNeb, was started on CPAP with improvement in saturation to 91%. Initial emergency room evaluation revealed: * Temp 97.6, pulse 113, respiratory rate 28, blood pressure 119/64 * WBC 35.4, hemoglobin 11.4, hematocrit 34.5, platelet count 439, neutrophil 88.9% * Sodium 144, potassium 3.7, chloride 105, carbon dioxide 27.6, BUN 19, creatinine 0.89, GFR 84, glucose 134 * Total bilirubin 0.4, AST 12, ALT 7, alkaline phosphatase 117 * Total creatine kinase 18, troponin 0 0.03, BNP 255 * Total protein 7.5, albumin 2.0 * PT 12.0, INR 1.2, APTT 38.3 * Urinalysis leukocyte esterase, WBC, bacteria, mucus and yeast, culture pending. * Blood cultures pending. * Nasal MRSA-not detected * Chest x-ray-dense consolidation in the left lower lobe and partially consolidative infiltrates in the central lungs bilaterally and in the left costophrenic angle. * EKG -sinus tachycardia with short RI interval with occasional ventricular premature complexes, possible atrial flutter, incomplete right bundle branch block, ST deviation and marketed T wave abnormality, consider anterior lateral ischemia. * CTA chest-negative pulmonary embolism, abnormal appearance to the lungs with dense consolidation left lower lobe and masslike areas of consolidation left suprahilar left lateral midlung, also patchy opacities throughout the right lower lobe. Patient was admitted to ICU with community-acquired pneumonia, acute respiratory failure with hypoxia, sepsis. On empiric antibiotics (Zosyn and azithromycin), on steroids. Palliative care was consulted to assist with further clarification of goals of medical treatment in this patient with acute exacerbation of chronic severe COPD, sepsis secondary to community-acquired pneumonia and acute hypoxic respiratory failure and ongoing trajectory of decline. Function/Cognitive Trajectory: Patient has had gradual decline in health including weight loss. Had been feeling sick 2-3 weeks prior to presentation. [facility] - History History Provided By: Patient - Medical History Medical History: Medical History (Last Updated 06/07/18 @ 10:41 by Charmaine Uriostegui) Arthritis COPD (chronic obstructive pulmonary disease) Hammond catheter in place prior to arrival Hyperlipidemia Hypertension Prostate CA - Surgical History Surgical History: Surgical History (Last Updated 06/07/18 @ 10:42 by Charmaine Uriostegui) History of gastric ulcer (Inactive) Cataracts, both eyes (Chronic) Gastrostomy tube in place History of appendectomy - Family History Family History: Family History (Last Updated 06/07/18 @ 10:43 by Charmaine Uriostegui) Father Alcohol abuse Other Dementia - Social History I have reviewed the patient's Social History: Yes - Tobacco History Second Hand Smoke Exposure: No Tobacco Use In Past 30 Days: No Smoking Status: Former smoker - Alcohol History How Often Do You Have a Drink Containing Alcohol: Never - Substance Use History Substance History: No History of Abuse - Travel History Recent Travel in the [place] Within the Last 8 Weeks: No Recent Travel Out of the Country Within the Last 8 Weeks: No - Immunization History Tetanus Immunization: <5 Years Hx Influenza Vaccine This Season: No Medications and Allergies Active Medications: Active Medications Acetaminophen (Tylenol Liq) 650 mg G-TUBE Q6H PRN PRN Reason: PAIN 1-10 AND/OR FEVER >101F Al Hydroxide/Mg Hydroxide (Milk Of Magnesia Liq) 30 ml G-TUBE Q12H PRN PRN Reason: Mild Constipation Albuterol (Duoneb Neb (Prn)) 1 ampul NEB Q2HR NEB PRN PRN Reason: WHEEZING Albuterol (Duoneb Neb (Tee)) 1 ampul NEB Q4HR NEB [facility] Last Admin: 06/07/18 07:35 Dose: 1 ampul Amlodipine Besylate (Norvasc) 10 mg G-TUBE DAILY [facility] Baclofen (Lioresal) 10 mg G-TUBE DAILY@0900,1400,2100 [facility] Last Admin: 06/07/18 08:54 Dose: 10 mg Bisacodyl (Dulcolax Supp) 10 mg RECTAL DAILY PRN PRN Reason: SEVERE CONSITIPATION Chlorhexidine Gluconate (Chlorhexidine 2% Cloth) 3 pack TOPICAL DAILY@0400 [facility] Stop: 06/12/18 03:59 Last Admin: 06/07/18 03:42 Dose: 3 pack Chlorhexidine Gluconate (Chlorhexidine 2% Cloth) 3 pack TOPICAL DAILY@0400 PRN PRN Reason: Extra cloth needed Stop: 06/12/18 03:59 Famotidine (Pepcid) 20 mg G-TUBE BID [facility] Last Admin: 06/07/18 08:56 Dose: 20 mg Famotidine (Pepcid Pf Inj) 20 mg IV.PUSH Q12HR [facility] Last Admin: 06/07/18 08:56 Dose: Not Given Heparin Sodium (Porcine) (Heparin Inj) 5,000 units SQ Q8H [facility] Last Admin: 06/07/18 09:00 Dose: 5,000 units Sodium Chloride (Ns Inj) 1,000 mls @ 84 mls/hr IV.CONT .[id number] [facility] Last Admin: 06/07/18 02:12 Dose: 84 mls/hr Azithromycin 500 mg/ Sodium (Chloride) 250 mls @ 250 mls/hr IV.SIG Q24H [facility] Last Admin: 06/07/18 03:41 Dose: 250 mls/hr Piperacillin/Tazobactam/Dextrose (Zosyn 3.375 Gm Premix) 3.375 gm in 50 mls @ 100 mls/hr IV.SIG Q6H [facility] Last Admin: 06/07/18 09:00 Dose: 100 mls/hr Magnesium Sulfate 4 gm/ Sodium (Chloride) 100 mls @ 50 mls/hr IV.SIG UNSCH PRN PRN Reason: For Magnesium 0.9 - 1.1 mg/dL Magnesium Sulfate 2 gm/ Sodium (Chloride) 100 mls @ 50 mls/hr IV.SIG UNSCH PRN PRN Reason: For Magnesium 1.2 - 1.6 mg/dL Potassium Chloride (Kcl 40 Meq Premix Inj) 40 meq in 100 mls @ 25 mls/hr IV.SIG Q2H PRN PRN Reason: For Potassium 2.8 - 3.2 mEq/L Potassium Chloride (Kcl 20 Meq Premix Inj) 20 meq in 100 mls @ 50 mls/hr IV.SIG Q2H PRN PRN Reason: For Potassium 3.3 - 3.5 mEq/L Potassium Chloride (Kcl 40 Meq Premix Inj) 40 meq in 100 mls @ 25 mls/hr IV.SIG UNSCH PRN PRN Reason: For Potassium 3.3 - 3.5 mEq/L Potassium Chloride (Kcl 20 Meq Premix Inj) 20 meq in 100 mls @ 50 mls/hr IV.SIG Q2H PRN PRN Reason: For Potassium 2.8 - 3.2 mEq/L Potassium Phosphate 30 mmol/ (Sodium Chloride) 260 mls @ 42 mls/hr IV.SIG UNSCH PRN PRN Reason: SEE LABEL COMMENTS Sodium Phosphate 30 mmol/ (Sodium Chloride) 260 mls @ 42 mls/hr IV.SIG UNSCH PRN PRN Reason: For Phosphorus < 2.5 mg/dL Lactulose (Lactulose Liq) 30 ml G-TUBE DAILY PRN PRN Reason: SEVERE CONSITIPATION Magnesium Oxide (Mag-Ox) 800 mg PO UNSCH PRN PRN Reason: For Magnesium 1.2 - 1.6 mg/dL Methylprednisolone Sodium Succinate (Solumedrol Inj) 60 mg IV.PUSH Q12HR [facility] Last Admin: 06/07/18 08:58 Dose: 60 mg Multivitamins/Folic Acid/Vitamin C (Flintstones) 1 tab CHEW DAILY [facility] Last Admin: 06/07/18 08:56 Dose: 1 tab Ondansetron HCl (Zofran Inj) 4 mg IV.PUSH Q6H PRN PRN Reason: NAUSEA OR VOMITING Oxycodone HCl (Roxicodone Intensol Liq) 2.5 mg G-TUBE Q2H PRN PRN Reason: PAIN SCALE 1 TO 5 Oxycodone HCl (Roxicodone Intensol Liq) 5 mg G-TUBE Q2H PRN PRN Reason: PAIN SCALE 6 TO 10 Last Admin: 06/07/18 03:42 Dose: 5 mg Potassium Bicarb/Potassium Chloride (K-Lyte Cl Eff) 50 meq PO UNSCH PRN PRN Reason: For Potassium 3.3 - 3.5 mEq/L Potassium Phosphate (K-Phos Original) 2,000 mg PO Q4H PRN PRN Reason: Phosphorus Less Than 2.5 mg/dL Potassium Phosphate (K-Phos Original) 2,000 mg PO UNSCH PRN PRN Reason: SEE LABEL COMMENTS Senna/Docusate Sodium (Maricel-Colace) 1 tab G-TUBE BID [facility] Last Admin: 06/07/18 08:55 Dose: 1 tab Sennosides (Senokot) 17.2 mg G-TUBE Q12H PRN PRN Reason: Moderate Constipation Sodium Chloride (Ns Flush) 2 ml IV.FLUSH PRN PRN PRN Reason: FLUSH AFTER USING IV ACCESS Sodium Chloride (Ns Flush) 2 ml IV.FLUSH BID [facility] Last Admin: 06/07/18 09:00 Dose: 2 ml Tamsulosin HCl (Flomax) 0.4 mg PO DAILY [facility] Last Admin: 06/07/18 08:55 Dose: 0.4 mg Allergies Allergy/AdvReac Type Severity Reaction Status Date / Time No Known Allergies Allergy Unknown nkda Uncoded 06/07/18 00:30 *MDRO Multi-Drug Resistant AdvReac Unknown nkda Uncoded 06/07/18 00:30 Organism Home Medications Medication Instructions Recorded Confirmed Type albuterol sulfate 2.5 mg INHALATION Q4H PRN 06/07/18 06/07/18 History allopurinol 300 mg PO DAILY 06/07/18 06/07/18 History amlodipine 10 mg PO DAILY 06/07/18 06/07/18 History baclofen 10 mg PO TID 06/07/18 06/07/18 History cholecalciferol (vitamin D3) 4,000 unit PO DAILY 06/07/18 06/07/18 History [Vitamin D3] hydrocodone-acetaminophen 1 tab PO Q6H PRN 06/07/18 06/07/18 History ipratropium-albuterol [Combivent 1 puff INHALATION QID 06/07/18 06/07/18 History Respimat] tamsulosin 0.4 mg PO DAILY 06/07/18 06/07/18 History Advance Directives Advance Directives Date on File: 12/25/13 Living Will: Yes Healthcare Surrogate: Yes Health Care Surrogate Name and Number: Donna Thomason, Documented care wishes: Living will completed 12/25/13 indicates that should the patient have a terminal condition, end-stage condition or be in a persistent vegetative state and that if his attending and treating physician or consulting physician have determined that there is no medical probability of recovery from such condition that he directs that life prolonging procedures be withheld and withdrawn including nutrition and hydration when the application of such procedures would serve to prolong artificially the process of dying and that he be permitted to naturally with only the administration of medication or performance of medical procedure deemed necessary to provide comfort or to alleviate pain. Today's verbally stated goals: Patient elects NO CODE. He wants to go home with hospice. Family/friends goals: Daughter supports NO CODE. She hopes to bring patient home with hospice. Ethical and Legal Issues: Patient is currently capacitated to make his own healthcare decisions. According to written advance directives, should he lose capacity he is designated Donna Thomason as primary healthcare surrogate. Physical Exam Vital Signs: Vital Signs - 24 hr 06/07/18 00:30 06/07/18 00:31 06/07/18 01:05 Temperature Pulse Rate 145 H 130 H Respiratory Rate 38 H 26 H Blood Pressure 119/66 119/64 Pulse Oximetry 100 100 100 06/07/18 01:31 06/07/18 02:14 06/07/18 02:15 Temperature 97.6 F Pulse Rate 126 H 113 H Respiratory Rate 27 H 28 H Blood Pressure Pulse Oximetry 98 95 06/07/18 04:00 06/07/18 04:09 06/07/18 05:00 Temperature 97.8 F Pulse Rate 106 H 113 H 101 H Respiratory Rate 28 H 21 16 Blood Pressure 125/91 H 112/61 Pulse Oximetry 100 100 100 06/07/18 06:00 06/07/18 07:00 06/07/18 07:36 Temperature Pulse Rate 92 H 89 84 Respiratory Rate 20 Blood Pressure Pulse Oximetry I&O: Intake & Output 06/05/18 06/06/18 06/07/18 06/08/18 06:59 06:59 06:59 06:59 Intake Total 104 / 104 Output Total 150 / 150 Balance -46 / -46 Weight 44.4 kg Physical Exam: CONSTITUTIONAL/GENERAL: This is an elderly, frail patient, in no apparent distress. TUBES/LINES/DRAINS: BiPAP, PIV, PEG tube, Hammond. SKIN: No jaundice, rashes, or lesions. Ecchymoses on upper extremities. No wounds seen anteriorly. Skin temperature appropriate. Not diaphoretic. HEAD: Atraumatic. Normocephalic. EYES: Pupils equal and round and reactive. Extraocular motions intact. No scleral icterus. No injection or drainage. Fundi not examined. ENT: Hearing grossly normal. Nose without bleeding or purulent drainage. Oral mucosa dry. NECK: Trachea midline. CARDIOVASCULAR: Regular rate and rhythm without murmurs, gallops, or rubs. No JVD. Peripheral pulses symmetric. RESPIRATORY/CHEST: Mildly labored respirations on BiPAP. Barrel chest. Diminished breath sounds bilaterally. GASTROINTESTINAL: Abdomen soft, non-tender, nondistended. PEG tube with dressing in place. Bowel sounds present. GENITOURINARY: Without palpable bladder distension. Hammond catheter in place. MUSCULOSKELETAL: Extremities with significant muscle wasting, no clubbing, cyanosis, or edema. No mottling or clubbing. LYMPHATICS: No palpable cervical or supraclavicular adenopathy. NEUROLOGICAL: Awakens, lethargic, falls off to sleep intermittently. Follows commands. Moves all extremities. PSYCHIATRIC: No obvious anxiety/depression. no apparent hallucinations or other psychotic thought process. Diagnostic Tests Laboratory: Laboratory Results - last 72 hr 06/07/18 06/07/18 06/07/18 00:53 00:53 01:15 WBC 35.4 H RBC 3.58 L Hgb 11.4 L Hct 34.5 L MCV 96.5 MCH 31.9 MCHC 33.0 RDW 15.9 Plt Count 439 MPV 8.1 Prelim Diff (Auto) Slide review pending Neut % (Auto) 88.9 H Lymph % (Auto) 3.2 L [place] % (Auto) 7.7 Eos % (Auto) 0.1 Baso % (Auto) 0.1 Neut # (Auto) 31.4 H Lymph # (Auto) 1.1 [place] # (Auto) 2.7 H Eos # (Auto) 0.0 Baso # (Auto) 0.0 WBC Differential Manual diff final Seg Neuts % (Manual) 86 H Band Neuts % (Manual) 1 Lymphocytes % (Manual) 4 L Monocytes % (Manual) 8 Promyelocytes % (Man) 1 H Abs Neuts (Manual) 31.2 H Differential Comment . Toxic Granulation 1+ H Toxic Vacuolation Present H Platelet Estimate High H Platelet Morphology Normal Seeley Cells 1+ H PT 12.0 H INR 1.2 APTT 38.3 H Puncture Site Right radial Patient Temperature 98.6 O2 Saturation 97 ABG pH 7.34 L ABG pCO2 49 H ABG pO2 142 H ABG HCO3 26 ABG O2 Content 14.0 ABG Base Excess 0.4 ABG Methemoglobin 1.1 Javier Test Present Hemoglobin 10.1 L Carboxyhemoglobin 1.2 O2 Delivery Device Bipap Vent Setting [id number] Inspired O2 100 Critical Value No Sodium Potassium Chloride Carbon Dioxide Anion Gap BUN Creatinine Estimated GFR POC Glucose Random Glucose Lactic Acid Calcium Total Bilirubin AST ALT Alkaline Phosphatase Total Creatine Kinase Troponin I B-Natriuretic Peptide Total Protein Albumin Urine Color Urine Clarity Urine pH Ur Specific [place] Urine Protein Urine Glucose (UA) Urine Ketones Urine Occult Blood Urine Nitrate Urine Bilirubin Urine Urobilinogen Ur Leukocyte Esterase Urine RBC Urine WBC Amorphous Sediment Urine Bacteria Hyaline Casts Urine Mucus Urine Yeast Micro UA Comment Ur Microscopic Review Urine Culture Comments Nasal Screen MRSA (PCR) 06/07/18 06/07/18 06/07/18 01:39 01:39 01:39 WBC RBC Hgb Hct MCV MCH MCHC RDW Plt Count MPV Prelim Diff (Auto) Neut % (Auto) Lymph % (Auto) [place] % (Auto) Eos % (Auto) Baso % (Auto) Neut # (Auto) Lymph # (Auto) [place] # (Auto) Eos # (Auto) Baso # (Auto) WBC Differential Seg Neuts % (Manual) Band Neuts % (Manual) Lymphocytes % (Manual) Monocytes % (Manual) Promyelocytes % (Man) Abs Neuts (Manual) Differential Comment Toxic Granulation Toxic Vacuolation Platelet Estimate Platelet Morphology Peter Cells PT INR APTT Puncture Site Patient Temperature O2 Saturation ABG pH ABG pCO2 ABG pO2 ABG HCO3 ABG O2 Content ABG Base Excess ABG Methemoglobin Javier Test Hemoglobin Carboxyhemoglobin O2 Delivery Device Vent Setting Inspired O2 Critical Value Sodium 144 Potassium 3.7 Chloride 105 Carbon Dioxide 27.6 Anion Gap 11 BUN 19 H Creatinine 0.89 Estimated GFR 84 L POC Glucose Random Glucose 134 H Lactic Acid 1.8 Calcium 8.1 L Total Bilirubin 0.4 AST 12 L ALT 7 L Alkaline Phosphatase 117 Total Creatine Kinase 18 L Troponin I 0.03 B-Natriuretic Peptide 255 H Total Protein 7.5 Albumin 2.0 L Urine Color Urine Clarity Urine pH Ur Specific [place] Urine Protein Urine Glucose (UA) Urine Ketones Urine Occult Blood Urine Nitrate Urine Bilirubin Urine Urobilinogen Ur Leukocyte Esterase Urine RBC Urine WBC Amorphous Sediment Urine Bacteria Hyaline Casts Urine Mucus Urine Yeast Micro UA Comment Ur Microscopic Review Urine Culture Comments Nasal Screen MRSA (PCR) 06/07/18 06/07/18 06/07/18 02:00 03:15 05:16 WBC RBC Hgb Hct MCV MCH MCHC RDW Plt Count MPV Prelim Diff (Auto) Neut % (Auto) Lymph % (Auto) [place] % (Auto) Eos % (Auto) Baso % (Auto) Neut # (Auto) Lymph # (Auto) [place] # (Auto) Eos # (Auto) Baso # (Auto) WBC Differential Seg Neuts % (Manual) Band Neuts % (Manual) Lymphocytes % (Manual) Monocytes % (Manual) Promyelocytes % (Man) Abs Neuts (Manual) Differential Comment Toxic Granulation Toxic Vacuolation Platelet Estimate Platelet Morphology Peter Cells PT INR APTT Puncture Site Patient Temperature O2 Saturation ABG pH ABG pCO2 ABG pO2 ABG HCO3 ABG O2 Content ABG Base Excess ABG Methemoglobin Javier Test Hemoglobin Carboxyhemoglobin O2 Delivery Device Vent Setting Inspired O2 Critical Value Sodium Potassium Chloride Carbon Dioxide Anion Gap BUN Creatinine Estimated GFR POC Glucose 145 H Random Glucose Lactic Acid Calcium Total Bilirubin AST ALT Alkaline Phosphatase Total Creatine Kinase Troponin I B-Natriuretic Peptide Total Protein Albumin Urine Color Dark-yellow H Urine Clarity Cloudy H Urine pH 5.0 Ur Specific [place] 1.017 Urine Protein 30 H Urine Glucose (UA) Negative Urine Ketones Trace H Urine Occult Blood Small H Urine Nitrate Negative Urine Bilirubin Negative Urine Urobilinogen Less than 2 Ur Leukocyte Esterase Small H Urine RBC 1 Urine WBC 43 H Amorphous Sediment Moderate H Urine Bacteria Many H Hyaline Casts 8 Urine Mucus Few H Urine Yeast Few H Micro UA Comment Culture indicated Ur Microscopic Review Not Reportable Urine Culture Comments Culture indicated Nasal Screen MRSA (PCR) Not detected 06/07/18 05:56 WBC RBC Hgb Hct MCV MCH MCHC RDW Plt Count MPV Prelim Diff (Auto) Neut % (Auto) Lymph % (Auto) [place] % (Auto) Eos % (Auto) Baso % (Auto) Neut # (Auto) Lymph # (Auto) [place] # (Auto) Eos # (Auto) Baso # (Auto) WBC Differential Seg Neuts % (Manual) Band Neuts % (Manual) Lymphocytes % (Manual) Monocytes % (Manual) Promyelocytes % (Man) Abs Neuts (Manual) Differential Comment Toxic Granulation Toxic Vacuolation Platelet Estimate Platelet Morphology Seeley Cells PT INR APTT Puncture Site Left radial Patient Temperature 98.6 O2 Saturation 93 ABG pH 7.33 L ABG pCO2 47 H ABG pO2 81 ABG HCO3 24 ABG O2 Content 12.3 ABG Base Excess -1.1 ABG Methemoglobin 1.5 Javier Test Present Hemoglobin 9.3 L Carboxyhemoglobin 1.0 O2 Delivery Device Bipap Vent Setting Ipap 12 epap 5 Inspired O2 40 Critical Value No Sodium Potassium Chloride Carbon Dioxide Anion Gap BUN Creatinine Estimated GFR POC Glucose Random Glucose Lactic Acid Calcium Total Bilirubin AST ALT Alkaline Phosphatase Total Creatine Kinase Troponin I B-Natriuretic Peptide Total Protein Albumin Urine Color Urine Clarity Urine pH Ur Specific [place] Urine Protein Urine Glucose (UA) Urine Ketones Urine Occult Blood Urine Nitrate Urine Bilirubin Urine Urobilinogen Ur Leukocyte Esterase Urine RBC Urine WBC Amorphous Sediment Urine Bacteria Hyaline Casts Urine Mucus Urine Yeast Micro UA Comment Ur Microscopic Review Urine Culture Comments Nasal Screen MRSA (PCR) Result Diagrams: 06/07/18 00:53 06/07/18 01:39 Microbiology: Microbiology 06/07/18 02:00 Legionella Antigen - Final Urine - Catheterized Urine Presumptive negative for Legionella pneumophila serogroup 1 antigen in urine, suggesting no recent or recurrent infection. Infection due to Legionella cannot be ruled out since other serogroups and species may cause disease, antigen may not be present in urine in early infection, and the level of antigen present in the urine may be below the detection limit of the test. Imaging: Chest X-Ray 06/07/18 00:34 CONCLUSION: Dense consolidation in the left lower lobe and partially consolidative infiltrates in the central lungs bilaterally and in the left costophrenic angle. Chest CTA 06/07/18 01:02 CONCLUSION: 1. Study is negative for pulmonary embolism. 2. Abnormal appearance to the lungs with dense consolidation left lower lobe and masslike areas of consolidation left suprahilar left lateral midlung. There are also patchy opacities throughout the right lower lobe. Patient/Family Conference Present at Family Conference: Met with patient and daughter at bedside. Long conversation with daughter prior to patient waking up. Family Conference Time: 90 Family Conference Location: Bedside Issues Discussed: * Palliative care role, purpose, approach * Additional medical, psychosocial, and spiritual history * Patients general health, functional status, and cognitive changes in the months leading up to the current hospitalization * Patient/family understanding of the current medical problems * Patient/family understanding of prognosis * Patients goals of care as best understood from advance directives and/or conversations and/or values * Current medical treatment options and benefits/burdens of those options * Likely scenarios comparing ongoing aggressive care with a transition to comfort measures only * Questions answered to the best of my ability * Palliative care contact information provided Long conversation with daughterDonna reviewing past medical and social history. Daughter talks about trajectory of decline over the past 2 years. She tells me the patient did not want to come to the hospital. She feels he did not want to in the hospital. She has been worried he will not survive this admission. We then spoke with the patient, I removed his BiPAP and he was able to speak more clearly. BiPAP was off for able 25 minutes, his oxygen saturation did not drop below 94%. Patient tells me he does not want to go back on the ventilator, conversation witnessed by nurse [place]. He wants to go home and "live life." He does not want his dying to be prolonged artificially. He is an agreement with his daughter in that he wants to go home and be kept comfortable with hospice support. Assessment and Plan - Disease Oriented Problem List (1) CAP (community acquired pneumonia) (2) Acute respiratory failure with hypoxia (3) Sepsis - Symptom Scale (1) Dyspnea 0-10 Scale: 2 Pertinent Non-Medical Issues: Psychosocial: . Retired. Was in the [employer] during . 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 Spiritual: Not a voodoo person, though has spiritual beliefs. Legal:Patient is currently capacitated to make his own healthcare decisions. According to written advance directives, should he lose capacity he is designated Donna Katelin as primary healthcare surrogate. Ethical issues impacting care: No known concerns at this time. Important Contacts: * Donna Thomason, daughter/healthcare surrogate: [phone] Prognosis: Mr. Thomason is a 73-year-old male with severe COPD admitted with acute respiratory failure with hypoxia, sepsis secondary to community-acquired pneumonia, and recent trajectory of decline. Will Mr. Thomason may survive this hospitalization his overall prognosis appears poor given his advanced severe COPD. Hospice appropriate if goals are comfort oriented. Code Status: No Code DNR Plan: * Patient is currently capacitated to make his own healthcare decisions. According to written advance directives, should he lose capacity he is designated Donna Thomason as primary healthcare surrogate. * NO CODE - per patient, supported by daughter/ HCS. * Goals: Patient elects NO CODE, he wants to without tubes and machines, he wants to peacefully and naturally at home. He and his daughter want to bring him home with hospice support. He wants to go home to just live life. * Hospice consulted. Discussed with Anika. * SYMPTOMS: Dyspnea: on BiPAP, tolerates being off BiPAP for my visit, was able to maintain adequate O2 sats during prolonged conversation. Anxiety: due to shortness of breath. Would benefit from Morphine and Lorazepam for breathing and anxiety at home. * Recommend Hospice provide information on [facility] as they have 11 and 6 year olds in the home. * Palliative care number provided. * Palliative care will continue to follow throughout hospital course to assist with symptom management and further clarification of goals of medical treatment as needed. Appreciation Thank you for the opportunity to participate in the care of Ravindra Thomason. Attestation Attestation: To help prompt me to consider important information that might be impacting today's encounter and assessment, information from prior notes written by myself or my colleagues may have been "brought forward" into today's note. My signature on this note, however, is an attestation that I personally performed the exam, history, and/or decision-making noted today, and, unless otherwise indicated, the interactions with patient, family, and staff as well as the review of records all occurred today. I also attest that the listed assessment and stated plan reflect my best clinical judgment today based on the combination of historical information, prior notes, and today's exam/ interactions. When time spent is documented, it refers only to time spent today by the signer, or if indicated, combined time spent today by collaborating physician/nurse practitioner.
[2018-06-07] MEDS: amLODIPine 10 MG Tablet G-TUBE SCH (12:37)
--- NOTE | 2018-06-07 15:41 | P.PN ---
Subjective Interval history: 06/07: Extensive discussion with family at bedside after discussion with palliative care steam hand Kimberly Karina Uriostegui. Family and patient request hospice care. Hospice has been consulted. All questions answered. Physical Exam Vital signs: Vital Signs 06/07/18 00:30 06/07/18 00:31 06/07/18 01:05 Temperature Pulse Rate 145 H 130 H Respiratory Rate 38 H 26 H Blood Pressure 119/66 119/64 Pulse Oximetry 100 100 100 06/07/18 01:31 06/07/18 02:14 06/07/18 02:15 Temperature 97.6 F Pulse Rate 126 H 113 H Respiratory Rate 27 H 28 H Blood Pressure Pulse Oximetry 98 95 06/07/18 04:00 06/07/18 04:09 06/07/18 05:00 Temperature 97.8 F Pulse Rate 106 H 113 H 101 H Respiratory Rate 28 H 21 16 Blood Pressure 125/91 H 112/61 Pulse Oximetry 100 100 100 06/07/18 06:00 06/07/18 07:00 06/07/18 07:36 Temperature Pulse Rate 92 H 89 84 Respiratory Rate 20 Blood Pressure Pulse Oximetry 06/07/18 08:00 06/07/18 10:00 06/07/18 11:22 Temperature Pulse Rate 96 H 91 H 80 Respiratory Rate 14 16 Blood Pressure Pulse Oximetry 100 06/07/18 12:00 06/07/18 15:23 06/07/18 15:28 Temperature Pulse Rate 68 Respiratory Rate 19 18 Blood Pressure Pulse Oximetry 100 Intake & Output 06/06/18 06/07/18 06/07/18 18:59 06:59 18:59 Intake Total 104 / 104 1050 / 1050 Output Total 150 / 150 Balance -46 / -46 1050 / 1050 Weight 44.4 kg Intake: IV 104 / 104 1050 / 1050 NS Inj 1,000 ML @ 84 mls/hr IV. 1000 / 1000 CONT .[id number] [facility] Rx#:[id number] SoluMEDROL Inj 250 MG In NS Inj 104 / 104 100 ML @ 200 mls/hr IV.SIG ONCE ONE Rx#:[id number] Zosyn 3.375 GM Premix 3.375 gm 50 / 50 In 50 ml @ 100 mls/hr IV.SIG Q6H [facility] Rx#:[id number] Zosyn 4.5 GM Premix 4.5 gm In 0 / 0 100 ml @ 200 mls/hr IV.SIG ONCE ONE Rx#:[id number] Output: Urine Amount (Catheter) 150 / 150 Indwelling Urethral Catheter 150 / 150 Other: # Bowel Movements 0 - Urinary Catheter Management Indwelling Urethral Catheter Cath placed during this visit: yes Reason for continuing: Chronic Urinary Retention Insertion date: 06/07/18 Insertion time: 04:55 Results - Labs CBC & Chem 7: 06/07/18 00:53 06/07/18 01:39 Laboratory Results - last 24 hr 06/07/18 06/07/18 06/07/18 00:53 00:53 01:15 WBC 35.4 H RBC 3.58 L Hgb 11.4 L Hct 34.5 L MCV 96.5 MCH 31.9 MCHC 33.0 RDW 15.9 Plt Count 439 MPV 8.1 Prelim Diff (Auto) Slide review pending Neut % (Auto) 88.9 H Lymph % (Auto) 3.2 L [place] % (Auto) 7.7 Eos % (Auto) 0.1 Baso % (Auto) 0.1 Neut # (Auto) 31.4 H Lymph # (Auto) 1.1 [place] # (Auto) 2.7 H Eos # (Auto) 0.0 Baso # (Auto) 0.0 WBC Differential Manual diff final Seg Neuts % (Manual) 86 H Band Neuts % (Manual) 1 Lymphocytes % (Manual) 4 L Monocytes % (Manual) 8 Promyelocytes % (Man) 1 H Abs Neuts (Manual) 31.2 H Differential Comment . Toxic Granulation 1+ H Toxic Vacuolation Present H Platelet Estimate High H Platelet Morphology Normal Peter Cells 1+ H PT 12.0 H INR 1.2 APTT 38.3 H Puncture Site Right radial Patient Temperature 98.6 O2 Saturation 97 ABG pH 7.34 L ABG pCO2 49 H ABG pO2 142 H ABG HCO3 26 ABG O2 Content 14.0 ABG Base Excess 0.4 ABG Methemoglobin 1.1 Javier Test Present Hemoglobin 10.1 L Carboxyhemoglobin 1.2 O2 Delivery Device Bipap Vent Setting [id number] Inspired O2 100 Critical Value No Sodium Potassium Chloride Carbon Dioxide Anion Gap BUN Creatinine Estimated GFR POC Glucose Random Glucose Lactic Acid Calcium Total Bilirubin AST ALT Alkaline Phosphatase Total Creatine Kinase Troponin I B-Natriuretic Peptide Total Protein Albumin Urine Color Urine Clarity Urine pH Ur Specific [place] Urine Protein Urine Glucose (UA) Urine Ketones Urine Occult Blood Urine Nitrate Urine Bilirubin Urine Urobilinogen Ur Leukocyte Esterase Urine RBC Urine WBC Amorphous Sediment Urine Bacteria Hyaline Casts Urine Mucus Urine Yeast Micro UA Comment Ur Microscopic Review Urine Culture Comments Nasal Screen MRSA (PCR) 06/07/18 06/07/18 06/07/18 01:39 01:39 01:39 WBC RBC Hgb Hct MCV MCH MCHC RDW Plt Count MPV Prelim Diff (Auto) Neut % (Auto) Lymph % (Auto) [place] % (Auto) Eos % (Auto) Baso % (Auto) Neut # (Auto) Lymph # (Auto) [place] # (Auto) Eos # (Auto) Baso # (Auto) WBC Differential Seg Neuts % (Manual) Band Neuts % (Manual) Lymphocytes % (Manual) Monocytes % (Manual) Promyelocytes % (Man) Abs Neuts (Manual) Differential Comment Toxic Granulation Toxic Vacuolation Platelet Estimate Platelet Morphology Peter Cells PT INR APTT Puncture Site Patient Temperature O2 Saturation ABG pH ABG pCO2 ABG pO2 ABG HCO3 ABG O2 Content ABG Base Excess ABG Methemoglobin Javier Test Hemoglobin Carboxyhemoglobin O2 Delivery Device Vent Setting Inspired O2 Critical Value Sodium 144 Potassium 3.7 Chloride 105 Carbon Dioxide 27.6 Anion Gap 11 BUN 19 H Creatinine 0.89 Estimated GFR 84 L POC Glucose Random Glucose 134 H Lactic Acid 1.8 Calcium 8.1 L Total Bilirubin 0.4 AST 12 L ALT 7 L Alkaline Phosphatase 117 Total Creatine Kinase 18 L Troponin I 0.03 B-Natriuretic Peptide 255 H Total Protein 7.5 Albumin 2.0 L Urine Color Urine Clarity Urine pH Ur Specific [place] Urine Protein Urine Glucose (UA) Urine Ketones Urine Occult Blood Urine Nitrate Urine Bilirubin Urine Urobilinogen Ur Leukocyte Esterase Urine RBC Urine WBC Amorphous Sediment Urine Bacteria Hyaline Casts Urine Mucus Urine Yeast Micro UA Comment Ur Microscopic Review Urine Culture Comments Nasal Screen MRSA (PCR) 06/07/18 06/07/18 06/07/18 02:00 03:15 05:16 WBC RBC Hgb Hct MCV MCH MCHC RDW Plt Count MPV Prelim Diff (Auto) Neut % (Auto) Lymph % (Auto) [place] % (Auto) Eos % (Auto) Baso % (Auto) Neut # (Auto) Lymph # (Auto) [place] # (Auto) Eos # (Auto) Baso # (Auto) WBC Differential Seg Neuts % (Manual) Band Neuts % (Manual) Lymphocytes % (Manual) Monocytes % (Manual) Promyelocytes % (Man) Abs Neuts (Manual) Differential Comment Toxic Granulation Toxic Vacuolation Platelet Estimate Platelet Morphology [place] Cells PT INR APTT Puncture Site Patient Temperature O2 Saturation ABG pH ABG pCO2 ABG pO2 ABG HCO3 ABG O2 Content ABG Base Excess ABG Methemoglobin Javier Test Hemoglobin Carboxyhemoglobin O2 Delivery Device Vent Setting Inspired O2 Critical Value Sodium Potassium Chloride Carbon Dioxide Anion Gap BUN Creatinine Estimated GFR POC Glucose 145 H Random Glucose Lactic Acid Calcium Total Bilirubin AST ALT Alkaline Phosphatase Total Creatine Kinase Troponin I B-Natriuretic Peptide Total Protein Albumin Urine Color Dark-yellow H Urine Clarity Cloudy H Urine pH 5.0 Ur Specific [place] 1.017 Urine Protein 30 H Urine Glucose (UA) Negative Urine Ketones Trace H Urine Occult Blood Small H Urine Nitrate Negative Urine Bilirubin Negative Urine Urobilinogen Less than 2 Ur Leukocyte Esterase Small H Urine RBC 1 Urine WBC 43 H Amorphous Sediment Moderate H Urine Bacteria Many H Hyaline Casts 8 Urine Mucus Few H Urine Yeast Few H Micro UA Comment Culture indicated Ur Microscopic Review Not Reportable Urine Culture Comments Culture indicated Nasal Screen MRSA (PCR) Not detected 06/07/18 05:56 WBC RBC Hgb Hct MCV MCH MCHC RDW Plt Count MPV Prelim Diff (Auto) Neut % (Auto) Lymph % (Auto) [place] % (Auto) Eos % (Auto) Baso % (Auto) Neut # (Auto) Lymph # (Auto) [place] # (Auto) Eos # (Auto) Baso # (Auto) WBC Differential Seg Neuts % (Manual) Band Neuts % (Manual) Lymphocytes % (Manual) Monocytes % (Manual) Promyelocytes % (Man) Abs Neuts (Manual) Differential Comment Toxic Granulation Toxic Vacuolation Platelet Estimate Platelet Morphology [place] Cells PT INR APTT Puncture Site Left radial Patient Temperature 98.6 O2 Saturation 93 ABG pH 7.33 L ABG pCO2 47 H ABG pO2 81 ABG HCO3 24 ABG O2 Content 12.3 ABG Base Excess -1.1 ABG Methemoglobin 1.5 Javier Test Present Hemoglobin 9.3 L Carboxyhemoglobin 1.0 O2 Delivery Device Bipap Vent Setting Ipap 12 epap 5 Inspired O2 40 Critical Value No Sodium Potassium Chloride Carbon Dioxide Anion Gap BUN Creatinine Estimated GFR POC Glucose Random Glucose Lactic Acid Calcium Total Bilirubin AST ALT Alkaline Phosphatase Total Creatine Kinase Troponin I B-Natriuretic Peptide Total Protein Albumin Urine Color Urine Clarity Urine pH Ur Specific [place] Urine Protein Urine Glucose (UA) Urine Ketones Urine Occult Blood Urine Nitrate Urine Bilirubin Urine Urobilinogen Ur Leukocyte Esterase Urine RBC Urine WBC Amorphous Sediment Urine Bacteria Hyaline Casts Urine Mucus Urine Yeast Micro UA Comment Ur Microscopic Review Urine Culture Comments Nasal Screen MRSA (PCR) Microbiology 06/07/18 02:00 Urine - Catheterized Urine Legionella Antigen - Final Presumptive negative for Legionella pneumophila serogroup 1 antigen in urine, suggesting no recent or recurrent infection. Infection due to Legionella cannot be ruled out since other serogroups and species may cause disease, antigen may not be present in urine in early infection, and the level of antigen present in the urine may be below the detection limit of the test. - Imaging Impressions Chest X-Ray 06/07/18 00:34 CONCLUSION: Dense consolidation in the left lower lobe and partially consolidative infiltrates in the central lungs bilaterally and in the left costophrenic angle. Chest CTA 06/07/18 01:02 CONCLUSION: 1. Study is negative for pulmonary embolism. 2. Abnormal appearance to the lungs with dense consolidation left lower lobe and masslike areas of consolidation left suprahilar left lateral midlung. There are also patchy opacities throughout the right lower lobe.
--- NOTE | 2018-06-07 16:44 | ECG ---
Date Performed: 06/07/2018 Time Performed: 00:33:24 PTAGE: 73 years EKG: SINUS TACHYCARDIA WITH SHORT SD INTERVAL WITH OCCASIONAL VENTRICULAR PREMATURE COMPLEXES, P OSSIBLE ATRIAL FLUTTER INCOMPLETE RIGHT BUNDLE BRANCH BLOCK ST DEVIATION AND MARKED T-WAVE ABNORMALIT Y, CONSIDER ANTEROLATERAL ISCHEMIA ABNORMAL ECG PREVIOUS TRACING : 04/26/2017 21.37 Since the previous tracing, no significant change noted DOCTOR: Benson Lawson Interpretating Date/Time 06/07/2018 16:42:13
[2018-06-08] MEDS: Piperacil/Tazo 3.375 GM Premix 3.375 GM/50 ML PIGGYBACK IV.SIG SCH ×2 (01:22→08:58)
[2018-06-08] MEDS: Sod Chloride 0.9% Inj 1,000 ML IV.CONT SCH (01:22)
[2018-06-08] MEDS: Heparin - SQ 10,000 UNITS/ML Vial SQ SCH ×2 (01:22→08:57)
[2018-06-08] MEDS: Azithromycin Inj 500 MG in Sodium Chlor 0.9% Inj 250 ML IV.SIG SCH (05:00)
[2018-06-08] MEDS: Chlorhexidine Gluconate 2% 1 Pack (2 Cloths) TOPICAL SCH (05:01)
--- NOTE | 2018-06-08 07:12 | P.PNCC ---
Subjective Subjective Remarks/Hospital Course: 06/08: No acute events overnight. The patient's oxygen requirements have decreased significantly to 2 L per nasal cannula. Patient is complaining of diffuse pain Roxicodone 2.5 mg given this a.m. Plan is for patient to be transferred to home hospice today. Objective Vital Signs / I&O: Vital Signs 06/07/18 07:36 06/07/18 08:00 06/07/18 09:00 Temperature 97.4 F L Pulse Rate 84 96 H 82 Respiratory Rate 20 20 20 Blood Pressure 114/67 107/66 Pulse Oximetry 100 100 06/07/18 10:00 06/07/18 11:00 06/07/18 11:22 Temperature Pulse Rate 91 H 79 80 Respiratory Rate 14 15 16 Blood Pressure 107/70 98/61 L Pulse Oximetry 100 100 06/07/18 12:00 06/07/18 13:00 06/07/18 14:00 Temperature Pulse Rate 80 92 H 92 H Respiratory Rate 19 22 22 Blood Pressure 98/55 L 98/54 L 101/69 Pulse Oximetry 100 95 100 06/07/18 15:00 06/07/18 15:23 06/07/18 15:28 Temperature Pulse Rate 77 68 Respiratory Rate 21 18 Blood Pressure 89/56 L Pulse Oximetry 100 100 06/07/18 15:39 06/07/18 16:00 06/07/18 17:00 Temperature 97.5 F L Pulse Rate 80 74 Respiratory Rate 20 18 Blood Pressure 106/58 L 118/62 Pulse Oximetry 100 100 100 06/07/18 18:00 06/07/18 19:00 06/07/18 19:48 Temperature 97.8 F Pulse Rate 67 65 Respiratory Rate 14 16 Blood Pressure 117/59 L 116/56 L Pulse Oximetry 100 100 100 06/07/18 20:00 06/07/18 21:00 06/07/18 22:00 Temperature 97.8 F 97.8 F 97.8 F Pulse Rate 69 77 88 Respiratory Rate 16 16 16 Blood Pressure 116/56 L 122/63 122/72 Pulse Oximetry 100 100 100 06/07/18 23:00 06/08/18 00:00 06/08/18 01:00 Temperature 97.8 F 97.9 F 97.9 F Pulse Rate 73 81 76 Respiratory Rate 16 19 20 Blood Pressure 123/62 119/67 121/63 Pulse Oximetry 100 100 100 06/08/18 02:00 06/08/18 03:00 06/08/18 04:00 Temperature 97.9 F 97.9 F 97.9 F Pulse Rate 68 93 H 74 Respiratory Rate 21 20 20 Blood Pressure 108/55 L 125/74 115/58 L Pulse Oximetry 100 100 100 06/08/18 05:00 06/08/18 06:00 Temperature 97.9 F 97.9 F Pulse Rate 69 72 Respiratory Rate 21 19 Blood Pressure 119/65 113/64 Pulse Oximetry 100 100 Intake & Output 06/07/18 06/08/18 06/08/18 18:59 06:59 18:59 Intake Total 1100 / 1100 1350 / 1350 Output Total 450 / 450 550 / 550 Balance 650 / 650 800 / 800 Weight 48.1 kg Intake: IV 1100 / 1100 1350 / 1350 NS Inj 1,000 ML @ 84 mls/hr IV. 1000 / 1000 1000 / 1000 CONT .[id number] [facility] Rx#:[id number] Azithromycin Inj 500 MG In NS 250 / 250 Inj 250 ML @ 250 mls/hr IV.SIG Q24H [facility] Rx#:[id number] Zosyn 3.375 GM Premix 3.375 gm 100 / 100 100 / 100 In 50 ml @ 100 mls/hr IV.SIG Q6H [facility] Rx#:[id number] Output: Urine 450 / 450 Urine Amount (Catheter) 550 / 550 Indwelling Urethral Catheter 550 / 550 Other: # Bowel Movements 0 Result Diagrams: 06/07/18 00:53 06/07/18 01:39 Objective Remarks: GENERAL: This is a cachectic chronically ill-appearing male in mild distress with complaints of pain SKIN: Warm and dry. HEAD: Atraumatic. Normocephalic. EYES: Pupils equal and round. No scleral icterus. No injection or drainage. ENT: No nasal bleeding or discharge. Mucous membranes pink and moist. O2 2 L/ min via nasal cannula NECK: Trachea midline. No JVD. CARDIOVASCULAR: Normal rate, regular rhythm. RESPIRATORY: No accessory muscle use. Clear to auscultation. Breath sounds equal bilaterally. GASTROINTESTINAL: Abdomen soft, non-tender, nondistended. No guarding. PEG tube noted MUSCULOSKELETAL: Extremities without clubbing, cyanosis, or edema. No obvious deformities. NEUROLOGICAL: Awake and alert. RASS 0. No gross focal/sensory deficits. Follows commands in all 4 extremities. Assessment and Plan - Assessment and Plan Plan: 73yM presenting with COPD exacerbation, community acquired pneumonia, acute hypoxic respiratory failure on bipap, sepsis NEURO: Chronic back pain * Patient takes percocet at home for pain, will order PRN tylenol and low dose oxycodone PRN * Continue home baclofen * Delirium precautions CARDIO: History of essential hypertension * Continue home amlodipine * Cardiac monitoring * Currently in sinus tach, likely secondary to sepsis PULM: Acute exacerbation of COPD Community acquired pneumonia Acute hypoxic respiratory failure requiring non-invasive ventilation * FiO2 requirement significantly decreased now to 2L/min nasal cannula home dose * Empiric antibiotics for community acquired pneumonia (zosyn, azithro) * Continue steroids, scheduled and PRN nebs F/E/N: Severe protein calorie malnutrition as evidenced by frailty, temporal wasting, unintentional weight loss, and hypoalbuminemia * NPO status * Maintenance fluids * ICU electrolyte protocol * Multivitamin ID: Sepsis secondary to community acquired pneumonia * Antibiotics as noted above * IV fluids normal saline at 84 cc/hour * Blood and urine cultures sent and pending * Urine legionella sent and pending PROPHY: * SCDs, SQH * PPI Level 2 follow-up. Extensive discussion with patient and daughter yesterday at bedside. The patient and family have requested hospice care plan today is for transfer to home hospice. All questions answered. Code Status: DNR Discussed Condition With: No family at bedside this a.m., discussed with PREASSEMBLER AND INSPECTOR at bedside.
[2018-06-08 08:17] LABS: Hematocrit 31.6 % (39.0-51.0); Hemoglobin 10.3 gm/dL (13.0-17.0); Mean Corpuscular HGB Conc 32.5 % (32.0-36.0); Mean Corpuscular Hemoglobin 31.9 pg (27.0-34.0); Mean Corpuscular Volume 98.4 fL (80.0-100.0); Mean Platelet Volume 8.5 fL (7.0-11.0); Platelet Count 302 th/mm3 (150-450); Red Blood Count 3.21 mil/mm3 (4.50-5.90); Red Cell Distribution Width 15.1 % (11.6-17.2); White Blood Count 20.6 th/mm3 (4.0-11.0)
[2018-06-08] MEDS: Famotidine 20 MG Tablet G-TUBE SCH (08:56)
[2018-06-08] MEDS: Multivit/Folic Acid/Minerals Chewable Tablets CHEW SCH (08:56)
[2018-06-08] MEDS: Senna/Docusate Sodium 8.6/50 MG Tablet G-TUBE SCH (08:56)
[2018-06-08] MEDS: MethylPREDNISolone Sod Succinate Inj 125 MG/2 ML Vial IV.PUSH SCH (08:57)
[2018-06-08] MEDS: amLODIPine 10 MG Tablet G-TUBE SCH (08:58)
[2018-06-08] MEDS: Famotidine PF Inj 20 MG/2 ML Vial IV.PUSH SCH (08:58)
[2018-06-08 09:03] LABS: Lymphocytes 2 % (9-44); Metamyelocytes 1 % (0-1); Monocytes 3 % (0-8); Myelocytes 1 % (0-0); Platelet Estimate Normal (Normal); Platelet Morphology Normal (Normal)
[2018-06-08] MEDS: Baclofen 10 MG Tablet G-TUBE SCH (09:07)
[2018-06-08 09:54] VITALS: RESP 21; TEMP 97.8
[2018-06-08 10:33] LABS: Anion Gap 10 meq/L (5-15); Blood Urea Nitrogen 20 mg/dL (7-18); Calcium 8.1 mg/dL (8.5-10.1); Carbon Dioxide 26.1 meq/L (21.0-32.0); Chloride 113 meq/L (98-107); Glomerular Filtration Rate Greater Than 89 mL/min (>89); Glucose,Random 135 mg/dL (74-106); Phosphorus 3.5 mg/dL (2.5-4.9); Sodium 149 meq/L (136-145)
--- NOTE | 2018-06-08 11:26 | P.DS ---
Date of admission: 06/07/18 01:37 Primary care physician: UNKNOWN Attending physician on discharge: Marcelina Ronquillo Anticipated date of discharge: 06/08/18 Brief History from admission: 73yM brought in by EMS for SOB/ respiratory distress. The patient's daughter states that the patient has baseline SOB and cough but over the past day has had worsening dyspnea despite using his nebulizer multiple times at home. He called EMS and reportedly had a pulse ox in the 50s on their arrival, improved to 80s with a duoneb, and was started on CPAP prior to arrival. He is currently awake and alert but can only contribute limited information to history due to dyspnea and non-invasive ventilation; therefore, the history was primarily obtained from his daughter at the bedside. 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 Also has a history of prostate cancer, recent unintentional weight loss, and leukocytosis of uncertain etiology. Patient update on day of discharge: Subjective Remarks/Hospital Course: 06/08: No acute events overnight. The patient's oxygen requirements have decreased significantly to 2 L per nasal cannula. Patient is complaining of diffuse pain Roxicodone 2.5 mg given this a.m. Plan is for patient to be transferred to home hospice today. DS: Summary - Time Spent with Patient Total time spent providing and/or coordinating discharge services: - Quality: VTE Deep Vein Thrombosis/Pulmonary Embolism Present on Admission: No Exam Vital signs: Vital Signs 06/07/18 11:22 06/07/18 12:00 06/07/18 13:00 Temperature Pulse Rate 80 80 92 H Respiratory Rate 16 19 22 Blood Pressure 98/55 L 98/54 L Pulse Oximetry 100 95 06/07/18 14:00 06/07/18 15:00 06/07/18 15:23 Temperature Pulse Rate 92 H 77 68 Respiratory Rate 22 21 18 Blood Pressure 101/69 89/56 L Pulse Oximetry 100 100 06/07/18 15:28 06/07/18 15:39 06/07/18 16:00 Temperature 97.5 F L Pulse Rate 80 Respiratory Rate 20 Blood Pressure 106/58 L Pulse Oximetry 100 100 100 06/07/18 17:00 06/07/18 18:00 06/07/18 19:00 Temperature 97.8 F Pulse Rate 74 67 65 Respiratory Rate 18 14 16 Blood Pressure 118/62 117/59 L 116/56 L Pulse Oximetry 100 100 100 06/07/18 19:48 06/07/18 20:00 06/07/18 21:00 Temperature 97.8 F 97.8 F Pulse Rate 69 77 Respiratory Rate 16 16 Blood Pressure 116/56 L 122/63 Pulse Oximetry 100 100 100 06/07/18 22:00 06/07/18 23:00 06/08/18 00:00 Temperature 97.8 F 97.8 F 97.9 F Pulse Rate 88 73 81 Respiratory Rate 16 16 19 Blood Pressure 122/72 123/62 119/67 Pulse Oximetry 100 100 100 06/08/18 01:00 06/08/18 02:00 06/08/18 03:00 Temperature 97.9 F 97.9 F 97.9 F Pulse Rate 76 68 93 H Respiratory Rate 20 21 20 Blood Pressure 121/63 108/55 L 125/74 Pulse Oximetry 100 100 100 06/08/18 04:00 06/08/18 05:00 06/08/18 06:00 Temperature 97.9 F 97.9 F 97.9 F Pulse Rate 74 69 72 Respiratory Rate 20 21 19 Blood Pressure 115/58 L 119/65 113/64 Pulse Oximetry 100 100 100 06/08/18 07:00 06/08/18 07:59 06/08/18 08:00 Temperature 97.8 F Pulse Rate 77 76 Respiratory Rate 20 20 Blood Pressure 123/65 105/55 L Pulse Oximetry 100 100 100 06/08/18 09:00 06/08/18 10:00 Temperature Pulse Rate 70 75 Respiratory Rate 21 21 Blood Pressure 111/60 120/68 Pulse Oximetry 100 96 Intake & Output 06/07/18 06/08/18 06/08/18 18:59 06:59 18:59 Intake Total 1100 / 1100 1350 / 1350 50 / 50 Output Total 450 / 450 550 / 550 Balance 650 / 650 800 / 800 50 / 50 Weight 48.1 kg Intake: IV 1100 / 1100 1350 / 1350 50 / 50 NS Inj 1,000 ML @ 84 mls/hr IV. 1000 / 1000 1000 / 1000 CONT .[id number] [facility] Rx#:[id number] Azithromycin Inj 500 MG In NS 250 / 250 Inj 250 ML @ 250 mls/hr IV.SIG Q24H [facility] Rx#:[id number] Zosyn 3.375 GM Premix 3.375 gm 100 / 100 100 / 100 50 / 50 In 50 ml @ 100 mls/hr IV.SIG Q6H [facility] Rx#:[id number] Output: Urine 450 / 450 Urine Amount (Catheter) 550 / 550 Indwelling Urethral Catheter 550 / 550 Other: # Bowel Movements 0 - Routine HEENT Exam Head: Present: normocephalic, atraumatic, scalp tenderness Eye: Present: EOMI ENT: Present: mucous membranes moist - Routine Neck Exam Present: supple, full ROM - Routine Respiratory Exam Present: decreased breath sounds, prolonged expiratory phase - Routine Cardiovascular Exam Present: RRR, S1, S2 - Routine Abdominal Exam Present: soft, normoactive bowel sounds - Routine Skin Exam Present: intact - Routine Neurological Exam Present: alert, oriented X3, CN II-XII intact, normal reflexes, normal speech Results Labs on day of discharge: Labs from last 24 hours 06/08/18 06/08/18 06/08/18 09:32 06:36 06:08 WBC 20.6 H RBC 3.21 L Hgb 10.3 L Hct 31.6 L MCV 98.4 MCH 31.9 MCHC 32.5 RDW 15.1 Plt Count 302 D MPV 8.5 Prelim Diff (Auto) Manual diff required WBC Differential Manual diff final Seg Neuts % (Manual) 83 H Band Neuts % (Manual) 10 H Lymphocytes % (Manual) 2 L Monocytes % (Manual) 3 Metamyelocytes % (Man) 1 Myelocytes % (Man) 1 H Abs Neuts (Manual) 19.6 H Differential Comment . Platelet Estimate Normal Platelet Morphology Normal Hematology Comments Sodium 149 H Potassium 4.0 Chloride 113 H D Carbon Dioxide 26.1 Anion Gap 10 BUN 20 H Creatinine 0.72 Estimated GFR Greater than 89 POC Glucose 134 H Random Glucose 135 H Calcium 8.1 L Phosphorus 3.5 Magnesium 2.0 06/08/18 06/07/18 01:02 17:36 WBC RBC Hgb Hct MCV MCH MCHC RDW Plt Count MPV Prelim Diff (Auto) WBC Differential Seg Neuts % (Manual) Band Neuts % (Manual) Lymphocytes % (Manual) Monocytes % (Manual) Metamyelocytes % (Man) Myelocytes % (Man) Abs Neuts (Manual) Differential Comment Platelet Estimate Platelet Morphology Hematology Comments Sodium Potassium Chloride Carbon Dioxide Anion Gap BUN Creatinine Estimated GFR POC Glucose 174 H 154 H Random Glucose Calcium Phosphorus Magnesium Preliminary micro results at discharge 06/07/18 01:34 Aerobic Blood Culture - Preliminary Blood - Peripheral No growth in 1 day Anaerobic Blood Culture - Preliminary No growth in 1 day 06/07/18 01:39 Aerobic Blood Culture - Preliminary Blood - Peripheral No growth in 1 day Anaerobic Blood Culture - Preliminary No growth in 1 day - Impressions ITS Impressions Chest X-Ray 06/07/18 00:34 CONCLUSION: Dense consolidation in the left lower lobe and partially consolidative infiltrates in the central lungs bilaterally and in the left costophrenic angle. Chest CTA 06/07/18 01:02 CONCLUSION: 1. Study is negative for pulmonary embolism. 2. Abnormal appearance to the lungs with dense consolidation left lower lobe and masslike areas of consolidation left suprahilar left lateral midlung. There are also patchy opacities throughout the right lower lobe. Discharge Plan - Discharge Condition Condition: Stable - Discharge Order Discharge Orders: Discharge Order (Routine); Ordered 06/08/18 Ordered By: Marcelina Ronquillo ED Use Only Admit Order (Routine); Ordered 06/07/18 Ordered By: Lui Segura - Discharge Details Discharge Comment: Patient discharged to home hospice - Physicians Team Primary Care Provider: UNKNOWN, Attending Provider: Adriana Osborne Other Providers: Faizan Gonzalez MD ; Marcelina Ronquillo MD ; Jas Persaud MD ; Blair Espinoza MD ; Papi Keating MD ; Cal Arias MD
[2018-06-08 12:06] VITALS: PULSE 79
[2018-06-08 12:08] VITALS: BP 144/67; O2SAT 99
== END 2018-06-08 13:10 | disposition hospice, home (50) ==
LOC: NEPE 00:26 → NEDA 01:37 → HIMC 03:00
PROVIDERS: ADMIT Surgery Surgical Critical Care; ATTEND Surgery Surgical Critical Care